=== PATIENT | male | born 1960 | race African-American/Black ===

== ENCOUNTER 2017-06-23 11:22 | Emergency (ER) | payer MEDICARE ==
--- NOTE | 2017-06-23 12:40 | RAD ---
LEFT SHOULDER RADIOGRAPHS THREE VIEWS: O17 PROVIDED CLINICAL HISTORY: Bilateral shoulder pain without injury. FINDINGS: Comparison is made with a study dated 10/18/2015. Postoperative changes of left shoulder arthroplasty are demonstrated, without evidence for hardware complication. The acromioclavicular joint osteoarthrosis is redemonstrated. There is no evidence f or fracture. The glenohumeral relationship appears normal. The visualized left lung field appears clear. IMPRESSION: No evidence for an acute osseous abnormality. POS: OFF
--- NOTE | 2017-06-23 12:43 | RAD ---
RIGHT SHOULDER RADIOGRAPHS THREE VIEWS: O17 PROVIDED CLINICAL HISTORY: Right shoulder pain without injury. FINDINGS: Comparison is made with a study dated 10/18/2015. There is a heterogeneous and mottled appearance to the right humeral head which may reflect changes of prior osteonecrosis. Osteophyte formation arises from the humeral head-neck junction. Subacromi al space appears preserved. The glenohumeral relationship appears normal. The visualized right markos g field appears clear. Mild acromioclavicular joint osteoarthrosis is present. IMPRESSION: No evidence for an acute osseous abnormality. POS: OFF
[2017-06-23] MEDS ORDERED: Dexamethasone 4 mg/ml Vial ONE (13:57)
== END 2017-06-23 14:10 | disposition home or self-care (01) ==
LOC: ERS 11:22
DX: G89.29 Other chronic pain (principal); M25.511 Pain in right shoulder; M25.512 Pain in left shoulder; M19.90 Unspecified osteoarthritis, unspecified site; E78.5 Hyperlipidemia, unspecified; E11.9 Type 2 diabetes mellitus without complications; I10 Essential (primary) hypertension; Z79.01 Long term (current) use of anticoagulants; Z79.899 Other long term (current) drug therapy; Z79.4 Long term (current) use of insulin
CPT/HCPCS: 36416; 96361; 96374; J1100

== ENCOUNTER 2017-11-16 14:00 | Outpatient (CLI) | payer MEDICARE | END 2017-11-16 14:01 | disposition home or self-care (01) | LOC: BICRAD 14:00 | PROVIDERS: ATTEND Internal Medicine Rheumatology | DX: M46.92 Unspecified inflammatory spondylopathy, cervical region (principal); M47.892 Other spondylosis, cervical region; Z98.890 Other specified postprocedural states | CPT/HCPCS: 72052 ==

== ENCOUNTER 2018-02-06 11:33 | Inpatient (IN) | payer MEDICARE ==
[2018-02-06] MEDS ORDERED: Sodium Chloride 0.9% 100 ML ONE (11:39)
[2018-02-06] MEDS ORDERED: cefTRIAXone\\ROCEPHIN 2 GM VIAL ONE (11:39)
[2018-02-06 12:06] LABS: Hemoglobin 9.4 g/dL (14.0-18.0); Mean Corpuscular HGB CONC 31.8 g/dL (32.0-36.0); Mean Corpuscular Hemoglobin 28.2 pg (27.0-31.0); Mean Corpuscular Volume 88.8 fl (80.0-94.0); Mean Platelet Volume 6.5 fL (7.4-10.4); Platelet Count 428 thou/uL (130-400); RBC Distribution Width 18.2 % (11.5-14.5); Red Blood Cell (RBC) Count 3.31 mill/uL (4.70-6.10); White Blood Cell (WBC) Count 19.7 thou/uL (4.8-10.8)
[2018-02-06 12:16] LABS: ALT (SGPT) 13 U/L (8-55); AST (SGOT) 31 U/L (5-34); Albumin 3.3 g/dL (3.5-5.0); Alkaline Phosphatase 75 U/L (40-150); Anion Gap 17 mmol/L (10-20); BUN (Urea Nitrogen) 14 mg/dL (8.4-25.7); Bilirubin, Total 0.5 mg/dL (0.2-1.2); CK (CPK) 198 U/L (30-200); Calc. Creatinine Clearance 0 mL/min (70-130); Calcium 8.5 mg/dL (7.8-10.44); Carbon Dioxide 18 mmol/L (22-29); Chloride 104 mmol/L (98-107); Estimated GFR-MDRD 79; Globulin 3.3 g/dL (2.4-3.5); Glucose 165 mg/dL (70-105); Potassium 3.4 mmol/L (3.5-5.1); Protein, Total 6.6 g/dL (6.0-8.3); Sodium 136 mmol/L (136-145)
[2018-02-06 12:20] LABS: CKMB 0.7 ng/mL (0-6.6); Troponin I Less than 0.010 ng/mL (< 0.028)
[2018-02-06 12:24] LABS: Anisocytosis SLIGHT = 6-15 cells (100X) (0-5/hpf); Band 16 % (5-11); Hypochromia SLIGHT = 6-15 cells (100X) (0-5/hpf); Lymphocytes 2 % (21-51); MDiff Complete? YES; Monocytes 2 % (0-10); Neutrophil 80 % (42-75); PLT Morphology Comment Appears Increased
[2018-02-06 12:38] LABS: Bilirubin Small (Negative); Blood, Urine Moderate (Negative); Clarity TURBID (Clear); Glucose, Urine (Dipstick) Negative (Negative); Leukocyte Moderate (Negative); Nitrite Positive (Negative); Protein, Urine (Dipstick) 100 mg/dL (Neg-Trace); Specific Gravity, Urine 1.019 (1.002-1.036)
[2018-02-06 12:40] LABS: Bacteria/HPF 4+ HPF (None Seen); Squamous Epithelial 0-3 HPF (0-3); WBC/HPF 21-50 HPF (0-3)
[2018-02-06 12:41] LABS: Hyaline Casts/LPF 7-10 HYALINE CAST LPF (0-3 Hyaline); Pathc Cast-AUWi Flag 20.78 (0-2.49)
[2018-02-06] MEDS ORDERED: Ondansetron ODT 4 MG TAB SL PRN (14:19)
[2018-02-06] MEDS ORDERED: Ondansetron HCl/PF 4 MG/2 ML Vial IVP PRN (14:19)
[2018-02-06] MEDS ORDERED: Acetaminophen 325 MG TAB PO PRN (14:19)
[2018-02-06] MEDS ORDERED: Dextrose 5% in Water 1,000 ML IV PRN (14:33)
--- NOTE | 2018-02-06 15:06 | RAD ---
ONE VIEW CHEST: HISTORY: Cough. FINDINGS: AP view chest is obtained on 02/06/18. Comparison is made to previous exam from 04/02/17. AP view chest demonstrates the lungs to be well aerated. No evidence of active intrathoracic disease is seen. No evidence of effusions, pneumonia, or pneumothorax is seen. IMPRESSION: Unremarkable AP view chest. POS: [facility]
[2018-02-06] MEDS: Sodium Chloride 0.9% 1,000 ML IV SCH ×4 (15:29→23:42)
[2018-02-06] MEDS: MEROPENEM 1 GM/50 ML 1 GM in Premix Bag 1 BAG IVPB SCH ×2 (16:10→23:39)
[2018-02-06] MEDS ORDERED: Magnesium Sulfate 4 GM in Sodium Chloride 0.9% 250 ML 250 ML IVPB SCH (16:30)
--- NOTE | 2018-02-06 19:48 | HP ---
DATE OF ADMISSION: 02/06/2018 CHIEF COMPLAINT: Generalized weakness and fall. HISTORY OF PRESENT ILLNESS: The patient is a very pleasant 57-year-old male with a history of hypert ension; history of diabetes, type 2; history of lower extremity DVT; who presents to the hospital wit h a possible fall. The patient stated that for about a week, he has been having some diarrhea and aviles s been feeling very weak. Per ER's documentation, I was notified that the patient fell at home, had some pain and also was found to be hypotensive and at that time EMS was called and EMS brought him to the hospital for further evaluation. The EMS noted that the patient was hypotensive, tachycardic, a nd his temperature was 103.5. The patient states that he has a history of UTIs in the past and has b een complaining of some dysuria on urination. The patient stated that he did have a temperature yest erday; however, no chills; however, has been feeling weak all over. Denies any chest pain, shortness of breath. Did have some nausea, but no vomiting. The patient states that he has been eating and d rinking okay; however, not much today. PAST MEDICAL HISTORY: He has a history of hyperlipidemia, diabetes, history of DVT, dyslipidemia, rh eumatoid arthritis. PAST SURGICAL HISTORY: He has a cholecystectomy, left shoulder surgery, left knee surgery, and cervi diony spine surgery. ALLERGIES: No known drug allergies. MEDICATIONS: The patient does not know his own medications. From the previous list, it appears that he has been on Xarelto and also on sulfasalazine and steroids at 5 mg. The medications are as the f ollowing: Flexeril 10 mg q.12 hours p.r.n., metformin 1000 mg b.i.d., Januvia 100 mg daily, Levemir 15 units at bedtime, Zetia 10 mg at bedtime, Xarelto 20 mg daily, Flomax 0.4 mg daily, prednisone 5 m g daily, enalapril 10 mg daily, sulfasalazine 1000 mg twice a day. SOCIAL HISTORY: He denies any alcohol, drug use or smoking history. He lives with his mother and br other. FAMILY HISTORY: Mother had a history of bypass. Father is , had a history of diabetes and e nd-stage renal disease on dialysis. Power of city planning aide for the patient is his daughter, Evelyn. REVIEW OF SYSTEMS: All negative except for the ones mentioned above in the HPI. PHYSICAL EXAMINATION: VITAL SIGNS: The patient's temperature currently is 97.5, pulse 114, respiratory rate 18, satting 10 0% room air. His blood pressure is 89/57. GENERAL: He is awake, alert, oriented x3, does not appear in distress. HEENT: Normocephalic, atraumatic. Mucous membranes are very significantly dry. CARDIOVASCULAR: S1, S2 present. He does have a mild systolic murmur that is heard on the left upper sternal border and the left lower sternal border. LUNGS: Clear to auscultation, rhonchi or wheezes noted. ABDOMEN: Soft, nontender. Bowel sounds present x2. However, he does have some tenderness on palpat ion around his pelvic area. EXTREMITIES: Pedal pulses present x2. No edema, no redness noted around the joint areas. SKIN: No bruises or cuts noted. LABORATORY DATA: As the following: WBC of 19.7, hemoglobin of 9.4, hematocrit of 29.4, his platelet s are 428. He does not have any bands. Chemistry: Sodium of 136, potassium is 3.4, bicarbonate of 18, BUN of 14, creatinine of 1.15. Sugar is 165. Lactic acid is 2.3. His troponin x1 is negative. Chest x-ray is pending. Urine indicates positive nitrites, moderate leukocyte esterase and elevated wbc's. ASSESSMENT AND PLAN: The patient is a very pleasant 57-year-old male, who comes into the hospital fo fall and was found to have a possible urosepsis. 1. Sepsis. The patient received about 4-5 liters of fluids. He is still hypotensive, may have to s tart the patient on some low dose steroids or Levophed if his map continues to be less than 65, then it would be septic shock. However, the patient is currently just on fluids and maintaining his map o f 65. Since the patient has a history of rheumatoid arthritis, he is immunocompromised, we will star t him on meropenem, I am not sure. I tried to review the culture from the previous urine and there h as been really no culture except for the stool culture, so I will start him on broad spectrum meropen em since the patient appears to be very ill and then maybe we could narrow it out once the patient is more stable. This is to cover ESBL. 2. Leukocytosis, most likely secondary to his underlying urinary tract infection. 3. Urosepsis. We will continue to monitor. Culture is pending. Continue broad spectrum antibiotic s. The patient may require Urology consult. This is the second time that he is having UTIs and he i s septic, last one was last year. The patient is on Flomax. May follow up with Urology as an outpat ient. 4. Lactic acidosis, most likely secondary to his underlying sepsis. 5. Non-anion gap metabolic acidosis. This could just be probably either from his diarrhea that he h as been having. We will also replace the potassium and we will also check magnesium. 6. Deep venous thrombosis prophylaxis. The patient is supposed to be on Xarelto for DVT. We will c onfirm once it is, we will start the patient back on Xarelto.
[2018-02-06] MEDS: Famotidine 20 MG TAB PO SCH (20:09)
[2018-02-06] MEDS: Atorvastatin Calcium 20 MG TAB PO SCH (20:09)
[2018-02-06] MEDS: Insulin Glargine 8 UNITS in Pre-Filled Syringe 1 EACH SC SCH (20:22)
[2018-02-06] MEDS ORDERED: Potassium Chloride 20 MEQ TAB PO SCH (21:00)
--- NOTE | 2018-02-06 22:54 | CON ---
DATE OF CONSULTATION: 02/06/2018 SERVICE: Pulmonary Medicine. REASON FOR CONSULTATION: IMCU patient. HISTORY OF PRESENT ILLNESS: Patient is a 57-year-old -[place] male with past medical history to the significant for chronic systolic heart failure. He was in his usual state of health until about a week prior to presentation. He just felt off and weak. Otherwise, he did not have much in the way of fevers, chills, vomiting, diarrhea, or chest discomfort. He did not note any palpitations. He occasionally felt a little nausea, which came and went. He did not have any hot, red, swollen joints, or rashes. He had urgency , but denied any significant dysuria. In the emergency department, he was given 6 liters of fluid for severe sepsis syndrome. He had marginal blood pressures. EKG was unremarkable and is also given some antibiotics. Since he has been here, he has developed a little bit of cough. He suggests to me that cough was not present prior to being in the emergency department. PAST MEDICAL HISTORY: 1. Type 2, diabetes mellitus. 2. Rheumatoid arthritis. 3. History of DVT. 4. Dyslipidemia. 5. Hypertension. 6. Chronic systolic heart failure. PAST SURGICAL HISTORY: 1. Cholecystectomy. 2. Left shoulder surgery. 3. Left knee surgery. 4. C-spine surgery. ALLERGIES: No known drug allergies. MEDICATIONS: List of his outpatient and inpatient medications were reviewed. No specific updates were made at this time. SOCIAL HISTORY: Negative for current alcohol, tobacco, or illicit drug use. He denies any exposure to chemicals, asbestos, tuberculosis, or dust. FAMILY HISTORY: Noncontributory. REVIEW OF SYSTEMS: General, head, ears, eyes, nose, throat, cardiovascular, respiratory, GI, , musculoskeletal, neurologic, and skin is negative except as mentioned in the HPI. PHYSICAL EXAMINATION: VITAL SIGNS: Afebrile currently. His T-max since presentation was 99.7, pulse 106, blood pressure 81/56, respirations 18, saturation 100% on room air for the time being. HEENT: Normocephalic, atraumatic. Sclerae white, conjunctivae pink. Oral and nasal mucosa is moist without lesions. LUNGS: Decent air entry. Dependent crackles are minimal. They are more pronounced in the right lung. HEART: Normal rate, regular. ABDOMEN: Soft, nontender, nondistended. Bowel sounds are positive. MUSCULOSKELETAL: No cyanosis or clubbing. There is no pitting in the bilateral lower extremities. There is minimal tenting present. GENITOURINARY: Napier catheter in place. NEUROLOGIC: Grossly nonfocal. LABORATORY DATA: WBC 19.7, hemoglobin 9.4, platelets 428,000. Neutrophil count is 80% with 16% bands on top of that. Phosphorus is normal, magnesium 0.9. Lactate is cleared to 1.0, glucose 149. Liver function studies, and basic metabolic profile otherwise essentially unremarkable. Creatinine 1.15. Cardiac enzymes are unremarkable x1. Urinalysis is positive for nitrites, blood , bacteria. Beta-hydroxybutyric acid 0.53. Blood culture x2 and urine culture unremarkable otherwise. IMAGING: Chest x-ray demonstrates no acute cardiopulmonary abnormality. ASSESSMENT: 1. Severe sepsis. 2. Chronic systolic heart failure, status post 6 liters of volume resuscitation. 3. Urinary tract infection. 4. Type 2, diabetes mellitus. 5. History of deep venous thrombosis. DISCUSSION AND PLAN: The patient's maps are okay. He has cleared his lactate. He is mentating just fine and his urine output is excellent. As such, we will continue to monitor. He got 6 liters of fluid. If he develops hypoxic respiratory failure, I prefer to put him on noninvasive ventilation. Once he improves his blood pressure a touch more, we will need to try to get some of this fluid resuscitation back off of him. A dose of Lasix should be considered in the morning if his blood pressures firm up. I agree with empiric antibiotics while we await for the results of some of these cultures that are currently pending. Pulmonary and Critical Care will continue to follow along. If his blood pressures fall off further, he will need a central line to consider initiating pressors. 70 minutes have been devoted to this patient in various activities. I personally reviewed all imaging studies and laboratory data noted within this document. For fifty percent of this time, I was interacting with the patient at the bedside or coordinating care with the care team. For the remainder of the time I was immediately available to the patient in the hospital unit. ERICK
[2018-02-07] MEDS: Sodium Chloride 0.9% 1,000 ML IV SCH ×4 (00:35→20:15)
[2018-02-07 05:49] LABS: #Lymphocytes 1.1 thou/uL (1.20-3.40); #Monocytes 0.7 thou/uL (0.11-0.59); #Neutrophils 15.3 thou/uL (1.40-6.50); %Basophils 0.2 % (0.0-1.0); %Eosinophils 0.2 % (0.0-10.0); %Lymphocytes 6.4 % (21.0-51.0); %Monocytes 4.1 % (0.0-10.0); %Neutrophils 89.1 % (42.0-75.0); Hemoglobin 9.6 g/dL (14.0-18.0); Mean Corpuscular HGB CONC 30.2 g/dL (32.0-36.0); Mean Corpuscular Hemoglobin 27.3 pg (27.0-31.0); Mean Corpuscular Volume 90.5 fl (80.0-94.0); Mean Platelet Volume 6.4 fL (7.4-10.4); Platelet Count 391 thou/uL (130-400); RBC Distribution Width 18.5 % (11.5-14.5); White Blood Cell (WBC) Count 17.2 thou/uL (4.8-10.8)
[2018-02-07 06:01] LABS: Anion Gap 15 mmol/L (10-20); BUN (Urea Nitrogen) 10 mg/dL (8.4-25.7); Calc. Creatinine Clearance 117 mL/min (70-130); Calcium 8.7 mg/dL (7.8-10.44); Carbon Dioxide 17 mmol/L (22-29); Chloride 113 mmol/L (98-107); Estimated GFR-MDRD Greater than 90; Glucose 96 mg/dL (70-105); Magnesium 1.8 mg/dL (1.6-2.6); Potassium 4.6 mmol/L (3.5-5.1); Sodium 140 mmol/L (136-145)
--- NOTE | 2018-02-07 07:58 | PRG ---
DATE OF SERVICE: 02/07/2018 The patient says he feels better today. He is wondering why he has not been allowed to eat. PHYSICAL EXAMINATION: VITAL SIGNS: His temperature is 100.8, pulse 106, respirations of 18, O2 sat 100% on room air, blood pressure 118/55. HEENT: Unremarkable. NECK: No JVD. LUNGS: Clear without wheezing or rhonchi. CARDIAC: S1 and S2 regular. ABDOMEN: Soft, nontender. EXTREMITIES: No clubbing, cyanosis or edema. He has a slight effusion on his left knee. LABORATORY DATA: White blood cell count 17.2, hematocrit 31.7, platelet count 391. Sodium 140, pota ssium 4.6, chloride 113, CO2 17, BUN 10, creatinine 0.7, glucose 96. ASSESSMENT: 1. Presumed urosepsis. 2. Mild left knee effusion. 3. Recurrent urinary tract infections in a relatively young person. 4. Diabetes mellitus. RECOMMENDATIONS: 1. He is doing well on the current antibiotics and fluids. I think that at some point, he needs to have further investigations as to why a young mili is getting UTIs. This may be a prostate issue. 2. Consider orthopedic consultation for the left knee effusion. 3. He is stable to move out to the medical floor.
[2018-02-07] MEDS: Rivaroxaban 10 MG TAB PO SCH (08:30)
[2018-02-07] MEDS: MEROPENEM 1 GM/50 ML 1 GM in Premix Bag 1 BAG IVPB SCH ×3 (08:31→23:48)
[2018-02-07] MEDS: Multivit, Therapeutic 1 TAB PO SCH (08:31)
[2018-02-07] MEDS: Tamsulosin HCl 0.4 MG CAP PO SCH (08:31)
[2018-02-07] MEDS: Famotidine 20 MG TAB PO SCH ×2 (08:31→20:15)
--- NOTE | 2018-02-07 12:05 | PDOC.PN ---
- Subjective Encounter Start Date: 02/07/18 Encounter Start Time: 12:12 Patient seen and examined. Admitted w sepsis with hypotension 2/2 UTI. Cxs grew gram negative rods- sensitivities pending. No complaints today; no acute events overnight. - Objective Vital Signs & Weight: Vital Signs (12 hours) Temp Pulse Resp BP Pulse Ox 02/07/18 11:27 98.6 F 122 H 16 146/80 H 91 L 02/07/18 09:23 98.5 F 74 14 126/79 94 L 02/07/18 07:53 100.8 F H 106 H 18 100 02/07/18 07:27 100.8 F H 106 H 18 118/55 L 100 02/07/18 04:25 98.8 F 96 18 102/58 L 100 Weight Weight 158 lb 11.2 oz I&O: 02/06/18 02/07/18 02/08/18 06:59 06:59 06:59 Intake Total 1947 Output Total 2875 Balance -928 Result Diagrams: 02/07/18 05:16 02/07/18 05:16 Additional Labs: Accuchecks 02/07/18 02/06/18 02/06/18 05:49 20:21 16:26 POC Glucose 101 121 H 149 H Phys Exam - Physical Examination Constitutional: NAD HEENT: moist MMs, sclera anicteric, TM's clear Neck: supple, full ROM Respiratory: no wheezing, no rales, no rhonchi, clear to auscultation bilateral Cardiovascular: RRR, no significant murmur, no rub Gastrointestinal: soft, non-tender, no distention, positive bowel sounds Musculoskeletal: no edema, pulses present Neurological: non-focal, moves all 4 limbs Psychiatric: normal affect, A&O x 3 Skin: no rash, normal turgor Dx/Plan (1) Sepsis with hypotension Code(s): A41.9 - SEPSIS, UNSPECIFIED ORGANISM Status: Acute Comment: Improving. 2/2 UTI. Urine culture grew gram negative rods. Continue meropenem for now. (2) Recurrent UTI (urinary tract infection) Code(s): N39.0 - URINARY TRACT INFECTION, SITE NOT SPECIFIED Status: Acute Comment: Unclear etiology. Will get an US, continue antibiotics and f/u urine culture sensitivities. (3) HLD (hyperlipidemia) Code(s): E78.5 - HYPERLIPIDEMIA, UNSPECIFIED Status: Acute Qualifiers: Hyperlipidemia type: unspecified Qualified Code(s): E78.5 - Hyperlipidemia , unspecified (4) Personal history of DVT (deep vein thrombosis) Code(s): Z86.718 - PERSONAL HISTORY OF OTHER VENOUS THROMBOSIS AND EMBOLISM Status: Chronic Comment: Continue Xarelto. (5) Diabetes mellitus type 2 in nonobese Code(s): E11.9 - TYPE 2 DIABETES MELLITUS WITHOUT COMPLICATIONS Status: Chronic (6) Hypertension Code(s): I10 - ESSENTIAL (PRIMARY) HYPERTENSION Status: Chronic Qualifiers: Hypertension type: essential hypertension Qualified Code(s): I10 - Essential (primary) hypertension (7) Inflammatory arthropathy Code(s): M19.90 - UNSPECIFIED OSTEOARTHRITIS, UNSPECIFIED SITE Status: Chronic - Plan cont current plan of care, continue antibiotics, out of bed/ambulate Retroperitoneal US for recurrent UTI Continue broad spectrum antibiotics. f/u urine culture sensitivities. Review of Systems - Medications/Allergies Allergies/Adverse Reactions: Allergies Allergy/AdvReac Type Severity Reaction Status Date / Time No Known Drug Allergies Allergy Verified 10/18/15 02:31 Medications: Current Medications Acetaminophen (Tylenol Elixir) 650 mg PO Q6H PRN PRN Reason: Fever > 101 or Mild Pain Atorvastatin Calcium (Lipitor) 40 mg PO HS [facility] Last Admin: 02/06/18 20:09 Dose: 40 mg Dextrose/Water (Dextrose 50%) 25 gm SLOW IVP PRN PRN PRN Reason: Hypoglycemia Famotidine (Pepcid) 20 mg PO BID [facility] Last Admin: 02/07/18 08:31 Dose: 20 mg Glucagon (Glucagon) 1 mg IM PRN PRN PRN Reason: Hypoglycemia Meropenem 1 gm/ Device 50 mls @ 100 mls/hr IVPB [id number] [facility] Last Admin: 02/07/18 08:31 Dose: 50 mls Sodium Chloride (Normal Saline 0.9%) 1,000 mls @ 100 mls/hr IV .Q10H [facility] Last Admin: 02/06/18 23:42 Dose: 1,000 mls Dextrose/Water (D5w) 1,000 mls @ 0 mls/hr IV .Q0M PRN; As Directed PRN Reason: Hypoglycemia Insulin Glargine 8 units/ (Miscellaneous Medication) 0.08 mls @ 0 mls/hr SC HS [facility] Last Admin: 02/06/18 20:22 Dose: Not Given Insulin Human Lispro (Humalog) 0 units SC .MILD SLIDING SCALE PRN PRN Reason: Mild Correctional Scale Multivitamins (Theragran) 1 tab PO DAILY [facility] Last Admin: 02/07/18 08:31 Dose: 1 tab Rivaroxaban (Xarelto) 20 mg PO QAM-WM [facility] Last Admin: 02/07/18 08:30 Dose: 20 mg Sodium Chloride (Flush - Normal Saline) 10 ml IVF Q12HR [facility] Last Admin: 02/07/18 08:42 Dose: 10 ml Sodium Chloride (Flush - Normal Saline) 10 ml IVF PRN PRN PRN Reason: Saline Flush Tamsulosin HCl (Flomax) 0.4 mg PO DAILY [facility] Last Admin: 02/07/18 08:31 Dose: 0.4 mg
--- NOTE | 2018-02-07 12:44 | CON ---
DATE OF CONSULTATION: 02/07/2018 CHIEF COMPLAINT: Left shoulder and knee pain. HISTORY OF PRESENT ILLNESS: Mr. nKight is a 57-year-old male, who has recurrent urinary tract infecti ons. He presented with urosepsis. He has improved once starting antibiotics. His hypotension has r esolved. He is now on the regular floor. I was consulted today to evaluate his left knee. He has h ad some swelling of his knee. Upon further discussion, it seems that his knee pain and swelling is c hronic. He had surgery of the left knee several years ago. He has had chronic pain and valgus align ment. He has pain, which comes and goes, but always has some level of discomfort and swelling in thi s knee. He also has severe pain and limitation with his left shoulder. He has had a history of shou lder surgery with Dr. Devine in the past as well. He has rheumatoid arthritis and is on methotrexat e. His knee or shoulder pain are not especially worse after this visit and are not worsening. He fe els that he is improving. PAST MEDICAL HISTORY: Diabetes, rheumatoid arthritis, dyslipidemia, hypertension, chronic systolic h eart failure, history of DVT, history of recurrent urinary tract infections. PAST SURGICAL HISTORY: Cholecystectomy, previous left shoulder partial replacement, previous left kn ee surgery, previous cervical spine surgery. ALLERGIES: No known drug allergies. MEDICATIONS: Please see chart. SOCIAL HISTORY: The patient denies any tobacco, alcohol, or drug use. FAMILY MEDICAL HISTORY: Noncontributory. REVIEW OF SYSTEMS: As per HPI. PHYSICAL EXAMINATION: VITAL SIGNS: Temperature is 98.6, pulse is 122, respiratory rate 16, oxygen saturation 91%, blood pr essure is 146/80. GENERAL: He is alert, sitting upright, ambulatory, in no apparent distress. RESPIRATORY: Breathing comfortably. ABDOMEN: Soft, nontender, nondistended. MUSCULOSKELETAL: The patient's left lower extremity has a small effusion. He has good range of markell on from 5-120 degrees. Valgus alignment. No pain with varus or valgus stress. Left shoulder has we akness and some pain past 90 degrees, but no significant pain with passive motion. IMAGES: X-rays of the knee are currently pending. IMPRESSION: Chronic left knee and left shoulder pain in a patient recently admitted for urosepsis. PLAN: At this point, the patient does not seem to have any worsening of his musculoskeletal symptoms . I think his pain and swelling is likely chronic in nature and does not reflect infection. We will monitor him for now. I did order x-rays of the knee. No need for aspiration or surgical interventi on. If he begins to worsen clinically or develops a significant large effusion or loss of motion, we could consider aspiration.
--- NOTE | 2018-02-07 13:27 | ULT ---
RENAL SONOGRAM: DATE: 02/07/18. HISTORY: Recurrent urinary tract infection, question BPH. COMPARISON: Right upper quadrant ultrasound on 10/23/15. FINDINGS: Again noted at the superior pole right kidney is an anechoic well-circumscribed cystic lesion measuri ng 4.4 cm again demonstrating characteristics most compatible with a simple cyst. The right kidney o therwise has a normal sonographic appearance and there has been no interval development of an additio nal right renal mass, renal calculus, or hydronephrosis. The left kidney demonstrates a normal sonographic appearance without evidence of renal mass, renal ca lculus, or hydronephrosis. The right kidney measures 12.7 cm x 4.6 cm with the left kidney measuring 11 cm x 6.5 cm. The urinary bladder is completely depressed with a Napier catheter in place. IMPRESSION: 1. Right renal cyst. 2. Normal appearance of the left kidney. 3. No evidence of hydronephrosis. POS: [facility]
[2018-02-07] MEDS ORDERED: Sodium Chloride 0.9% 500 ML IVPB SCH (14:15)
--- NOTE | 2018-02-07 14:34 | RAD ---
TWO VIEWS LEFT KNEE: 02/07/2018 HISTORY: Left knee joint effusion. COMPARISON: None available. FINDINGS: There are post surgical changes of the proximal left tibial with two long screws transfixing the tibi al plateaus. No hardware complication is seen. There is tricompartment osteophytosis with narrowing of the medial and lateral joint compartments, as well as the patellofemoral joint. Prominent osteop hytes are seen involving the patellofemoral joint. There is evidence of a small joint effusion. There is a linear increased density structure seen over lying the infrapatellar location, which projects overlying the region of the Hoffa's fat pad, and thi s radiopaque density measures 12 mm x 3 mm. This is not definitely visualized on the frontal project ion; however, a radiopaque foreign body is a possibility. Vascular calcifications are seen posterior to the knee. There is osteopenia. IMPRESSION: 1. Findings suggestive of a radiopaque foreign body overlying the infrapatellar location, which over lies the region of the Hoffa's fat pad. Clinical correlation is recommended. 2. Osteoarthritis and osteopenia. 3. No acute osseous abnormality. 4. Small joint effusion. 5. Post surgical changes, proximal left tibia. POS: [facility]
[2018-02-07] MEDS: Atorvastatin Calcium 20 MG TAB PO SCH (20:15)
[2018-02-07] MEDS: Insulin Glargine 8 UNITS in Pre-Filled Syringe 1 EACH SC SCH (20:21)
[2018-02-07] MEDS: Acetaminophen 325 MG/10.15 ML UDCUP PO PRN (23:48)
[2018-02-08] MEDS: Sodium Chloride 0.9% 1,000 ML IV SCH ×2 (04:30→16:57)
[2018-02-08 04:53] LABS: Anion Gap 14 mmol/L (10-20); BUN (Urea Nitrogen) 6 mg/dL (8.4-25.7); Band 14 % (5-11); Calc. Creatinine Clearance 119 mL/min (70-130); Calcium 8.5 mg/dL (7.8-10.44); Carbon Dioxide 16 mmol/L (22-29); Chloride 110 mmol/L (98-107); Eosinophils 1 % (0-10); Estimated GFR-MDRD Greater than 90; Glucose 157 mg/dL (70-105); Hemoglobin 9.1 g/dL (14.0-18.0); Lymphocytes 11 % (21-51); MDiff Complete? YES; Mean Corpuscular HGB CONC 31.8 g/dL (32.0-36.0); Mean Corpuscular Hemoglobin 28.5 pg (27.0-31.0); Mean Corpuscular Volume 89.8 fL (78.0-98.0); Mean Platelet Volume 6.6 fL (7.4-10.4); Monocytes 1 % (0-10); Neutrophil 73 % (42-75); PLT Morphology Comment Appears Adequate; Platelet Count 372 thou/uL (130-400); Potassium 3.8 mmol/L (3.5-5.1); RBC Distribution Width 18.5 % (11.5-14.5); Red Blood Cell (RBC) Count 3.18 mill/uL (4.70-6.10); Sodium 136 mmol/L (136-145); White Blood Cell (WBC) Count 13.2 thou/uL (4.8-10.8)
[2018-02-08] MEDS: Acetaminophen 325 MG/10.15 ML UDCUP PO PRN (05:41)
[2018-02-08] MEDS: MEROPENEM 1 GM/50 ML 1 GM in Premix Bag 1 BAG IVPB SCH ×2 (08:46→15:31)
[2018-02-08] MEDS: Rivaroxaban 10 MG TAB PO SCH (08:46)
[2018-02-08] MEDS: Cyclobenzaprine 10 MG TAB PO PRN (08:47)
[2018-02-08] MEDS: Multivit, Therapeutic 1 TAB PO SCH (08:47)
[2018-02-08] MEDS: Tamsulosin HCl 0.4 MG CAP PO SCH (08:47)
[2018-02-08] MEDS: Famotidine 20 MG TAB PO SCH ×2 (08:47→20:05)
[2018-02-08] MEDS: traMADol HCl 50 MG TAB PO PRN (08:49)
--- NOTE | 2018-02-08 10:51 | PDOC.PN ---
- Subjective Encounter Start Date: 02/08/18 Encounter Start Time: 10:49 Patient seen and examined. Admitted w sepsis with hypotension 2/2 UTI. He was initially placed in the ICU but improved with therapy and then transfered to a medical floor. Cxs grew gram negative rods- sensitivities pending. Had multiple episode of bloody stools overnight- non bloody. - Objective MAR Reviewed: Yes Vital Signs & Weight: Vital Signs (12 hours) Temp Pulse Resp BP Pulse Ox 02/08/18 07:58 99.9 F H 118 H 20 138/75 94 L 02/08/18 04:52 93 L 02/08/18 04:30 99.1 F 104 H 20 125/70 92 L 02/08/18 01:18 99.5 F 02/07/18 23:48 99.9 F H 107 H 20 139/78 93 L Weight Weight 162 lb 1.6 oz I&O: 02/07/18 02/08/18 02/09/18 06:59 06:59 06:59 Intake Total 1947 5150 Output Total 2875 3850 Balance -928 1300 Result Diagrams: 02/08/18 03:49 02/08/18 03:49 Additional Labs: Accuchecks 02/08/18 02/08/18 02/07/18 05:47 00:57 20:13 POC Glucose 159 H 210 H 238 H 02/07/18 02/07/18 16:25 11:23 POC Glucose 175 H 179 H Phys Exam - Physical Examination Constitutional: NAD HEENT: moist MMs, sclera anicteric Neck: supple, full ROM Respiratory: no wheezing, no rales, no rhonchi, clear to auscultation bilateral Cardiovascular: RRR, no significant murmur, no rub Gastrointestinal: soft, non-tender, no distention, positive bowel sounds Musculoskeletal: no edema, pulses present Neurological: non-focal, moves all 4 limbs Psychiatric: normal affect, A&O x 3 Skin: no rash, normal turgor Dx/Plan (1) Sepsis with hypotension Code(s): A41.9 - SEPSIS, UNSPECIFIED ORGANISM Status: Acute Comment: Improving with treatment. 2/2 UTI. Urine culture grew E Coli. Continue meropenem for now. f/u sensitivities. Blood cultures negative till date. (2) Recurrent UTI (urinary tract infection) Code(s): N39.0 - URINARY TRACT INFECTION, SITE NOT SPECIFIED Status: Acute Comment: 2nd episode of UTI. Renal US w no abnormalities. Continue antibiotics and f/u urine culture sensitivities. (3) Diarrhea Code(s): R19.7 - DIARRHEA, UNSPECIFIED Status: Acute Comment: Had at least 3 episodes overnight. ? C diff as he's on antibiotics. Will check. (4) Personal history of DVT (deep vein thrombosis) Code(s): Z86.718 - PERSONAL HISTORY OF OTHER VENOUS THROMBOSIS AND EMBOLISM Status: Chronic Comment: Continue Xarelto. (5) Diabetes mellitus type 2 in nonobese Code(s): E11.9 - TYPE 2 DIABETES MELLITUS WITHOUT COMPLICATIONS Status: Chronic Comment: Fairly well controlled. (6) Hypertension Code(s): I10 - ESSENTIAL (PRIMARY) HYPERTENSION Status: Chronic Qualifiers: Hypertension type: essential hypertension Qualified Code(s): I10 - Essential (primary) hypertension Comment: Controlled and at goal. (7) Inflammatory arthropathy Code(s): M19.90 - UNSPECIFIED OSTEOARTHRITIS, UNSPECIFIED SITE Status: Chronic (8) HLD (hyperlipidemia) Code(s): E78.5 - HYPERLIPIDEMIA, UNSPECIFIED Status: Acute Qualifiers: Hyperlipidemia type: unspecified Qualified Code(s): E78.5 - Hyperlipidemia , unspecified - Plan cont current plan of care, continue antibiotics, out of bed/ambulate * . Review of Systems - Medications/Allergies Allergies/Adverse Reactions: Allergies Allergy/AdvReac Type Severity Reaction Status Date / Time No Known Drug Allergies Allergy Verified 10/18/15 02:31 Medications: Current Medications Acetaminophen (Tylenol Elixir) 650 mg PO Q6H PRN PRN Reason: Fever > 101 or Mild Pain Last Admin: 02/08/18 05:41 Dose: 650 mg Atorvastatin Calcium (Lipitor) 40 mg PO HS [facility] Last Admin: 02/07/18 20:15 Dose: 40 mg Cyclobenzaprine HCl (Flexeril) 10 mg PO BIDPRN PRN PRN Reason: Muscle Spasm Last Admin: 02/08/18 08:47 Dose: 10 mg Dextrose/Water (Dextrose 50%) 25 gm SLOW IVP PRN PRN PRN Reason: Hypoglycemia Famotidine (Pepcid) 20 mg PO BID [facility] Last Admin: 02/08/18 08:47 Dose: 20 mg Glucagon (Glucagon) 1 mg IM PRN PRN PRN Reason: Hypoglycemia Meropenem 1 gm/ Device 50 mls @ 100 mls/hr IVPB 0800,1600,2359 [facility] Last Admin: 02/08/18 08:46 Dose: 50 mls Sodium Chloride (Normal Saline 0.9%) 1,000 mls @ 100 mls/hr IV .Q10H [facility] Last Admin: 02/08/18 04:30 Dose: 1,000 mls Dextrose/Water (D5w) 1,000 mls @ 0 mls/hr IV .Q0M PRN; As Directed PRN Reason: Hypoglycemia Insulin Glargine 8 units/ (Miscellaneous Medication) 0.08 mls @ 0 mls/hr SC HS [facility] Last Admin: 02/07/18 20:21 Dose: 0.08 mls Insulin Human Lispro (Humalog) 0 units SC .MILD SLIDING SCALE PRN PRN Reason: Mild Correctional Scale Multivitamins (Theragran) 1 tab PO DAILY [facility] Last Admin: 02/08/18 08:47 Dose: 1 tab Rivaroxaban (Xarelto) 20 mg PO QAM-WM [facility] Last Admin: 02/08/18 08:46 Dose: 20 mg Sodium Chloride (Flush - Normal Saline) 10 ml IVF Q12HR [facility] Last Admin: 02/08/18 08:47 Dose: Not Given Sodium Chloride (Flush - Normal Saline) 10 ml IVF PRN PRN PRN Reason: Saline Flush Tamsulosin HCl (Flomax) 0.4 mg PO DAILY [facility] Last Admin: 02/08/18 08:47 Dose: 0.4 mg Tramadol HCl (Ultram) 50 mg PO TIDPRN PRN PRN Reason: Pain Last Admin: 02/08/18 08:49 Dose: 50 mg
[2018-02-08] MEDS: Acetaminophen 650 MG/20.3 ML UDCUP PO PRN (12:52)
[2018-02-08] MEDS: HumaLOG 300 UNITS/3 ML VIAL SC PRN (12:53)
[2018-02-08] MEDS ORDERED: traMADol HCl 50 MG TAB PO PRN (14:22)
--- NOTE | 2018-02-08 14:22 | PDOC.EVN ---
Event Note - Event Note Event Note: Patient developed a high grade fever + tachycardia with reduced oxygen saturations. CXR ordered, blood cultures and vancomycin added to regimen. Will follow results and monitor patient.
--- NOTE | 2018-02-08 14:38 | RAD ---
TWO VIEW CHEST: Comparison: 10-14-15, 02-06-18 History: Sepsis with tachycardia and fever. FINDINGS: Two views of the chest show the cardiomediastinal silhouette which is upper limits in size. There is a hazy opacity along the right heart border which may represent an infiltrate in the right lower lobe . No pleural effusion is seen. The patient is status post left shoulder arthroplasty. Degenerative ch anges are seen in the right shoulder. IMPRESSION: Possible subtle right lower lobe infiltrate. POS: [facility]
[2018-02-08] MEDS: Vancomycin HCl 1.5 GM in Sodium Chloride 0.9% 250 ML 300 ML IVPB SCH (16:47)
[2018-02-08] MEDS: metFORMIN 500 MG TAB PO SCH (16:56)
[2018-02-08] MEDS: Insulin Glargine 8 UNITS in Pre-Filled Syringe 1 EACH SC SCH (20:05)
[2018-02-08] MEDS: Atorvastatin Calcium 20 MG TAB PO SCH (20:05)
[2018-02-09] MEDS: MEROPENEM 1 GM/50 ML 1 GM in Premix Bag 1 BAG IVPB SCH ×3 (00:16→15:57)
[2018-02-09] MEDS: traMADol HCl 50 MG TAB PO PRN (00:25)
[2018-02-09] MEDS: Acetaminophen 650 MG/20.3 ML UDCUP PO PRN ×3 (00:26→11:54)
[2018-02-09] MEDS: Sodium Chloride 0.9% 1,000 ML IV SCH ×2 (02:31→18:04)
[2018-02-09] MEDS: Vancomycin HCl 1.5 GM in Sodium Chloride 0.9% 250 ML 300 ML IVPB SCH ×2 (02:31→16:00)
[2018-02-09 04:10] LABS: Anion Gap 12 mmol/L (10-20); BUN (Urea Nitrogen) 7 mg/dL (8.4-25.7); Calc. Creatinine Clearance 109 mL/min (70-130); Calcium 8.2 mg/dL (7.8-10.44); Carbon Dioxide 19 mmol/L (22-29); Chloride 108 mmol/L (98-107); Estimated GFR-MDRD Greater than 90; Glucose 175 mg/dL (70-105); Potassium 3.2 mmol/L (3.5-5.1); Sodium 136 mmol/L (136-145)
[2018-02-09 04:15] LABS: Band 1 % (5-11); Eosinophils 1 % (0-10); Hemoglobin 7.4 g/dL (14.0-18.0); Lymphocytes 6 % (21-51); MDiff Complete? YES; Mean Corpuscular HGB CONC 32.2 g/dL (32.0-36.0); Mean Corpuscular Hemoglobin 28.3 pg (27.0-31.0); Mean Corpuscular Volume 87.9 fL (78.0-98.0); Mean Platelet Volume 6.6 fL (7.4-10.4); Monocytes 3 % (0-10); Neutrophil 88 % (42-75); Platelet Count 350 thou/uL (130-400); RBC Distribution Width 18.7 % (11.5-14.5); Red Blood Cell (RBC) Count 2.61 mill/uL (4.70-6.10); White Blood Cell (WBC) Count 12.4 thou/uL (4.8-10.8)
[2018-02-09] MEDS: HumaLOG 300 UNITS/3 ML VIAL SC PRN (05:24)
[2018-02-09] MEDS: metFORMIN 500 MG TAB PO SCH (08:07)
[2018-02-09] MEDS: Alogliptin 25 MG TAB PO SCH (08:12)
[2018-02-09] MEDS: Multivit, Therapeutic 1 TAB PO SCH (08:13)
[2018-02-09] MEDS: Famotidine 20 MG TAB PO SCH ×2 (08:13→20:36)
[2018-02-09] MEDS: Rivaroxaban 10 MG TAB PO SCH (08:13)
[2018-02-09] MEDS: Ezetimibe 10 MG TAB PO SCH (08:13)
[2018-02-09] MEDS: Tamsulosin HCl 0.4 MG CAP PO SCH (08:13)
[2018-02-09] MEDS ORDERED: Sodium Chloride 0.9% 1,000 ML IV SCH ×2 (10:23→17:15)
[2018-02-09] MEDS ORDERED: Furosemide 20 MG/2 ML VIAL SLOW IVP SCH (10:45)
[2018-02-09 11:11] LABS: CO2 Tension 24.5 mmHg (35.0-45.0); pH, Arterial 7.52 (7.35-7.45)
[2018-02-09 11:12] LABS: Actual Bicarbonate (HCO3a) 19.5 mEq/L (22-28); Base Excess (BEa) -2.3 mEq/L (-2.0 to +3.0); O2 Tension (PaO2) 65.3 mmHg (80.0-100.0)
[2018-02-09 11:13] LABS: Calcium, Ionized 1.1 mmol/L (1.12-1.30); Puncture Site RRA
[2018-02-09] MEDS ORDERED: Furosemide 40 MG/4 ML VIAL ONE (11:52)
[2018-02-09] MEDS ORDERED: Acetaminophen 1,000 MG in Premix Bag 1 BAG IVPB PRN (12:49)
[2018-02-09] MEDS ORDERED: Potassium Chloride 20 MEQ TAB PO SCH (13:00)
--- NOTE | 2018-02-09 13:08 | PRG ---
DATE OF SERVICE: 02/09/2018 Forty-five minutes critical care time. This patient was sent back to the [facility] because his sepsis score was high. He had a fever today up to 103. He has been tachycardic with a fever. He has also been somewhat tachypneic. PHYSICAL EXAMINATION: VITAL SIGNS: His blood pressure is 131/76. GENERAL: He does not appear to be any overt distress to me. HEENT: Unremarkable. NECK: No adenopathy or JVD. LUNGS: Fairly clear. CARDIOVASCULAR: S1, S2 tachycardic. ABDOMEN: Soft, nontender. EXTREMITIES: No edema. : He has clear urine in his Napier. LABORATORY: White blood cell count is 12.4, hematocrit 23, platelet count 350, pH 7.52, pCO2 24, pO2 of 65 on 3 liters. Sodium 136, potassium 3.2, chloride 108, CO2 19, BUN 7, creatinine 0.7, glucose 175. ASSESSMENT: This is a 57-year-old male with urosepsis, which is growing out Escherichia coli resista nt to numerous antibiotics, but is sensitive to the meropenem that he is on. He also has a left knee effusion which was characterized as benign by the Orthopedic Service. He is currently experiencing to tachypnea and tachycardia due to his underlying fever and has been mo shankar to the Intermediate Care Unit for closer care. PLAN: 1. The patient needs a Urology consultation. Ultrasound obtained earlier in the hospitalization did not show any evidence of stones, but the patient may need closer look with a CT of the abdomen with contrast. 2. The patient needs to have his potassium replaced if that has not been done. He received a dose o f Lasix earlier today and his potassium is likely even lower now. 3. Continue the meropenem and vancomycin as you are doing.
--- NOTE | 2018-02-09 13:43 | CON ---
DATE OF PROCEDURE: 02/09/2018 HISTORY OF PRESENT ILLNESS: This is a 57-year-old male I am seeing today 02/09/2018 because of a febrile urinary tract infection. He was admitted on the . He is in the [facility] in room B1. Reviewing his most recent hospitalization, he has 2 different E. coli species gr owing in his urine, one is 25-50,000 colony forming units. The other is 10-25,000, the first has res istance to ampicillin and intermediate resistance to Augmentin, cefoxitin and Bactrim. The second on e has the same antibiotic resistance and in addition to that is resistant to quinolones. He is curre ntly on meropenem and I think that was started when he was admitted, started on the . He had van comycin ordered in addition to it last night. His urinalysis when he came in showed 11-20 red cells, 21-50 white cells, and 4+ bacteria. His creatinine on admission was 1.15. Liver function was matt l. His white count on admission was 19.7 and it has been coming down. Today it was 12.4. He was sl ightly anemic when he came in at 11.1. His hemoglobin is now 7.4, platelet count has been normal. Ava anderson did have an ultrasound of his kidneys done when he came in and that showed no evidence of stones or hydronephrosis. He has got a small right renal cystic lesion and he has had that compared with anot her ultrasound from last fall. He had apparently a similar admission last fall which also showed an abnormal urine, but his blood and urine cultures did not grow anything, but he certainly appeared on urinalysis to have a urinary tract infection and responded to antibiotics as such, and it is possible that maybe he received some IV antibiotics in the ER during that visit prior to getting the urine cu lture sent off. He has not had any CAT scans of his abdomen or pelvis on review of his recent admiss ions here. He, for some reason, is not very communicative. I do not know if this is something new. The nurse that is with him says he has not really been answered questions or talking much, but she c an get him to answer some questions. He does have a fever currently going on and has been recultured . So I am getting his history basically from his chart. PAST MEDICAL HISTORY: He medical history includes diabetes, rheumatoid arthritis, hyperlipidemia, hy pertension. He has a history of heart failure. He has a history of DVT. PAST SURGICAL HISTORY: Cholecystectomy, C-spine, left knee and I think the last surgery was a repla cement. ALLERGIES: None. MEDICATIONS: He appears to be taking Flomax as an outpatient, or at least was discharged on Flomax. PHYSICAL EXAMINATION: ABDOMEN: He does not have flank tenderness and answers no when asked if his abdomen hurts, his bladd er does not seem to be distended. GENITOURINARY: His penis was not circumcised and he did have a paraphimosis, but this was reduced. His catheter is draining a clear urine. He was given some Lasix today and he has had a very good diu resis since then. There is nothing to suggest a periurethral abscess. There is nothing to suggest a "scrotal abscess or testicular abscess or epididymitis. The testicles are both descended without ma ss or tenderness. RECTAL: Rectal exam showed normal rectal tone. He has got a mildly enlarged prostate. It is tender , but there is no fluctuance and nothing to suggest a prostatic abscess. IMPRESSION AND PLAN: Febrile urinary tract infection. He has been recultured. He is on meropenem, which should cover this, but yet he still had another fever. I think he has had a chest x-ray and re culture, so we will see if that was shown any more. He had vancomycin added last night. I would rec ommend we go ahead and get a noncontrast CAT scan to look at his urinary tract, may need to look to m eliz sure there is no sign of stone or obstruction or anything obvious with the kidney in terms of an abscess or perinephric collection. I will order that to be done and will follow along with you.
--- NOTE | 2018-02-09 13:59 | PDOC.PN ---
- Subjective Encounter Start Date: 02/09/18 Encounter Start Time: 13:57 Subjective: called by nursing early am for fever,tachycardia,hypoxia & tachypnea -: Pt seen & examined.not able to provide much info -: c/o left shoulder pain.shallow breathing noticed.high fever - Objective MAR Reviewed: Yes Vital Signs & Weight: Vital Signs (12 hours) Temp Pulse Resp BP BP BP Pulse Ox 02/09/18 11:30 103 F H 134 H 32 H 131/60 96 02/09/18 10:22 144 H 48 H 167/79 H 100 02/09/18 10:08 100 02/09/18 10:06 101.2 F H 144 H 48 H 124/78 83 L 02/09/18 08:13 97/62 02/09/18 08:00 98.1 F 123 H 14 90 L 02/09/18 07:58 98.1 F 123 H 14 97/56 L 90 L 02/09/18 05:00 100.1 F H 113 H 18 107/72 97 Weight Weight 167 lb I&O: 02/08/18 02/09/18 02/10/18 06:59 06:59 06:59 Intake Total 5150 3950 Output Total 3850 1300 Balance 1300 2650 Result Diagrams: 02/09/18 03:30 02/09/18 03:30 Additional Labs: Accuchecks 02/09/18 02/09/18 02/08/18 12:09 05:24 20:10 POC Glucose 155 H 157 H 158 H 02/08/18 16:46 POC Glucose 108 Microbiology 02/08/18 09:01 Stool C. difficile [facility] Antigen & Toxins - Final 02/06/18 12:21 Urine dobbins catheter Urine Culture - Final Escherichia coli#2 Escherichia coli 02/08/18 14:40 Venous blood - Right Hand Blood Culture - Preliminary Specimen has been received and culture in progress. No Growth to date. 02/08/18 13:24 Venous blood - Right Hand Blood Culture - Preliminary Specimen has been received and culture in progress. No Growth to date. 02/06/18 12:21 Urine dobbins catheter Urine Culture - Preliminary Escherichia coli#2 Escherichia coli 02/06/18 11:50 Venous blood - Right Arm Blood Culture - Preliminary NO GROWTH AT 48 HOURS 02/06/18 11:50 Venous blood - Left Hand Blood Culture - Preliminary NO GROWTH AT 48 HOURS Laboratory Tests 02/06/18 02/06/18 02/06/18 11:51 11:51 11:51 Hgb 9.4 L Lactic Acid 2.3 H Magnesium Troponin I Less than 0.010 02/06/18 02/06/18 02/07/18 11:51 15:22 05:16 Hgb Lactic Acid 1.0 Magnesium 0.9 L* 1.8 Troponin I 02/07/18 02/08/18 02/09/18 05:16 03:49 03:30 Hgb 9.6 L 9.1 L 7.4 L Lactic Acid Magnesium Troponin I labs reviewed Phys Exam - Physical Examination uncomfortable.moinimally conversant.shallow breaths HEENT: PERRLA, moist MMs, sclera anicteric, oral pharynx no lesions Neck: no nodes, no JVD, supple, full ROM Respiratory: no wheezing bibasilar crackles Cardiovascular: RRR, no significant murmur, no rub Gastrointestinal: soft, non-tender, no distention, positive bowel sounds Musculoskeletal: pulses present, edema present (b/l LE +1) Neurological: non-focal, normal sensation, moves all 4 limbs Psychiatric: normal affect, A&O x 3 Skin: no rash Dx/Plan (1) Septic shock Code(s): A41.9 - SEPSIS, UNSPECIFIED ORGANISM; R65.21 - SEVERE SEPSIS WITH SEPTIC SHOCK Status: Acute (2) Acute respiratory failure with hypoxemia Code(s): J96.01 - ACUTE RESPIRATORY FAILURE WITH HYPOXIA Status: Acute Comment: Likley Fluid overload with PNA (3) Sepsis Code(s): A41.9 - SEPSIS, UNSPECIFIED ORGANISM Status: Acute (4) PNA (pneumonia) Code(s): J18.9 - PNEUMONIA, UNSPECIFIED ORGANISM Status: Acute (5) Recurrent UTI (urinary tract infection) Code(s): N39.0 - URINARY TRACT INFECTION, SITE NOT SPECIFIED Status: Acute Comment: 2nd episode of UTI. Renal US w no abnormalities. Continue antibiotics and f/u urine culture sensitivities. (6) HLD (hyperlipidemia) Code(s): E78.5 - HYPERLIPIDEMIA, UNSPECIFIED Status: Chronic Qualifiers: Hyperlipidemia type: unspecified Qualified Code(s): E78.5 - Hyperlipidemia , unspecified (7) Personal history of DVT (deep vein thrombosis) Code(s): Z86.718 - PERSONAL HISTORY OF OTHER VENOUS THROMBOSIS AND EMBOLISM Status: Chronic Comment: Continue Xarelto. (8) Cervical myelopathy Code(s): G95.9 - DISEASE OF SPINAL CORD, UNSPECIFIED Status: Chronic (9) Diabetes mellitus type 2 in nonobese Code(s): E11.9 - TYPE 2 DIABETES MELLITUS WITHOUT COMPLICATIONS Status: Chronic Comment: Fairly well controlled. 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 * daily am. * H/H drop today and pt is on Xarelto. will check Occult blood in stools. * monitor BP w lasix * replace and recheck Poatssium . * check Mag. * ISS and accuchecks. * Stop metformin due to metab acidosis. Review of Systems - Review of Systems Constitutional: weakness, malaise Respiratory: Shortness of Breath Other: limited ROS due to acute SOB - Medications/Allergies Allergies/Adverse Reactions: Allergies Allergy/AdvReac Type Severity Reaction Status Date / Time No Known Drug Allergies Allergy Verified 10/18/15 02:31 Medications: Current Medications Acetaminophen (Tylenol Elixir) 650 mg PO Q6H PRN PRN Reason: Fever > 101 or Mild Pain Last Admin: 02/09/18 11:54 Dose: 650 mg Alogliptin Benzoate (Alogliptin) 25 mg PO DAILY [facility] Last Admin: 02/09/18 08:12 Dose: 25 mg Atorvastatin Calcium (Lipitor) 40 mg PO HS [facility] Last Admin: 02/08/18 20:05 Dose: 40 mg Cyclobenzaprine HCl (Flexeril) 10 mg PO BIDPRN PRN PRN Reason: Muscle Spasm Last Admin: 02/08/18 08:47 Dose: 10 mg Dextrose/Water (Dextrose 50%) 25 gm SLOW IVP PRN PRN PRN Reason: Hypoglycemia Ezetimibe (Zetia) 10 mg PO DAILY [facility] Last Admin: 02/09/18 08:13 Dose: 10 mg Enalapril Maleate (Vasotec) 2.5 mg PO DAILY [facility] Last Admin: 02/09/18 08:13 Dose: Not Given Famotidine (Pepcid) 20 mg PO BID [facility] Last Admin: 02/09/18 08:13 Dose: 20 mg Glucagon (Glucagon) 1 mg IM PRN PRN PRN Reason: Hypoglycemia Meropenem 1 gm/ Device 50 mls @ 100 mls/hr IVPB 0800,1600,2359 [facility] Last Admin: 02/09/18 08:04 Dose: 50 mls Dextrose/Water (D5w) 1,000 mls @ 0 mls/hr IV .Q0M PRN; As Directed PRN Reason: Hypoglycemia Insulin Glargine 8 units/ (Miscellaneous Medication) 0.08 mls @ 0 mls/hr SC HS [facility] Last Admin: 02/08/18 20:05 Dose: 0.08 mls Vancomycin HCl 1.5 gm/ Sodium (Chloride) 300 mls @ 200 mls/hr IVPB 0300,1500 [facility] Last Admin: 02/09/18 02:31 Dose: 300 mls Acetaminophen 1,000 mg/ Device 100 mls @ 400 mls/hr IVPB Q6H PRN PRN Reason: Fever/Mild Pain Stop: 02/10/18 12:50 Insulin Human Lispro (Humalog) 0 units SC .MILD SLIDING SCALE PRN PRN Reason: Mild Correctional Scale Last Admin: 02/09/18 05:24 Dose: 2 unit Miscellaneous Medication (Pharmacy To Dose) 0 each IVPB ASDIR [facility] Multivitamins (Theragran) 1 tab PO DAILY [facility] Last Admin: 02/09/18 08:13 Dose: 1 tab Potassium Chloride (K-Dur) 40 meq PO ONE [facility] Stop: 02/09/18 14:00 Rivaroxaban (Xarelto) 20 mg PO QAM-WM [facility] Last Admin: 02/09/18 08:13 Dose: 20 mg Sodium Chloride (Flush - Normal Saline) 10 ml IVF Q12HR [facility] Last Admin: 02/09/18 08:15 Dose: Not Given Sodium Chloride (Flush - Normal Saline) 10 ml IVF PRN PRN PRN Reason: Saline Flush Tamsulosin HCl (Flomax) 0.4 mg PO DAILY [facility] Last Admin: 02/09/18 08:13 Dose: 0.4 mg Tramadol HCl (Ultram) 50 mg PO TIDPRN PRN PRN Reason: Pain Last Admin: 02/09/18 00:25 Dose: 50 mg
--- NOTE | 2018-02-09 15:13 | CT ---
NONCONTRAST CT ABDOMEN AND PELVIS: DATE: 02/09/18. HISTORY: Febrile urinary tract infection. Sepsis. COMPARISON: CT thorax on 10/18/[address] abdomen and pelvis on 12/02/06. FINDINGS: There are small bilateral pleural effusions with associated atelectasis at the left lung base. A gre ater degree of parenchymal changes are seen at the right lung base which could be related to atelecta sis as well, but associated infectious process related to pneumonia or possibly aspiration pneumoniti s is also a possibility. There is a hypodense superior pole right renal lesion noted on prior CT thorax and unchanged in size from that exam and most likely related to a renal cyst measuring 4.1 cm. This does demonstrate fluid attenuation on this nonenhanced CT scan exam. There is an exophytic lesion within the medial aspect mid portion left kidney. There is artifact ext ending through this region due to spray artifact from overlying monitor leads limiting adequate evalu ation of this cystic lesion. This could potentially represent a hyperdense cystic renal lesion. Th is was not imaged on the CT thorax on prior exam. There was a much smaller low-density lesion seen i n this region on prior CT exam in 2006. This could potentially represent enlargement of the renal cy st. No renal or ureteral calculi are seen bilaterally. The urinary bladder is completely decompressed wi th Napier catheter in place. The rollins of the urinary bladder appear thickened, which is probably rel ated to incomplete distention. There is minimal nonspecific caliectasis on the right. Post cholecystectomy changes are noted. Vascular calcifications are present in the abdominal aorta. The heart is mildly enlarged. Nonspecific fluid-filled small bowel is present. No bowel wall thickening is present. Multilevel degenerative changes are seen in the spine. There is severe right and moderate to severe left hip osteoarthritis with joint space narrowing and prominent subchondral cystic changes. IMPRESSION: 1. Small bilateral pleural effusions with associated atelectasis. However, there is greater patchy parenchymal changes at the right lung base which is probably related to asymmetric volume loss on the right compared to the left, but developing pneumonia or aspiration pneumonitis is a possibility. 2. Superior pole right renal cyst with difficult to characterize cystic lesion in the mid portion le ft kidney related to spray artifact. 3. No renal or ureteral calculi are seen, and there is no hydronephrosis. There is minimal nonspeci fic caliectasis on the right. 4. Urinary bladder is completely decompressed with Napier catheter in place. While the rollins of the urinary bladder appear thickened, this is probably due to the incomplete distention. 5. Mild cardiomegaly. 6. Severe bilateral hip osteoarthritis. 7. Mild diffuse subcutaneous edema greater involving the pelvis. POS: [facility]
[2018-02-09 15:16] LABS: Vancomycin, Trough 14.9 ug/mL
[2018-02-09] MEDS ORDERED: Sodium Chloride 0.9% 500 ML IVPB SCH (15:30)
[2018-02-09] MEDS ORDERED: Ibuprofen 800 MG TAB PO SCH (15:30)
[2018-02-09] MEDS ORDERED: Lidocaine 1% (PF) 30 ML VIAL ONE (16:21)
[2018-02-09] MEDS ORDERED: Cosyntropin 250 MCG VIAL SLOW IVP SCH (17:30)
[2018-02-09 17:36] LABS: BF Color Yellow; Body Fluid Source SYNOVIAL FLUID; Clarity Cloudy/Turbid (Clear); RBC Background Count 0.007; RBC Count-Automated 41000 /cumm; Tube # EDTA; WBC/NonHematic-Auto 29000 /cumm
[2018-02-09 18:08] LABS: BF Segmented Neutrophils 77 %; Cell Count Non Hematic 10 %; Lymphocytes 13 %
[2018-02-09] MEDS: Norepinephrine 8 MG/0.9% NS 250 ML IVPB SCH (18:43)
[2018-02-09] MEDS: Atorvastatin Calcium 20 MG TAB PO SCH (20:36)
[2018-02-09] MEDS: Insulin Glargine 8 UNITS in Pre-Filled Syringe 1 EACH SC SCH (20:37)
[2018-02-09] MEDS ORDERED: Dexamethasone 4 mg/ml Vial SLOW IVP SCH (21:00)
[2018-02-10] MEDS: Hydrocortisone Sod Succ/PF 100 mg/2 ml Vial IVP SCH ×4 (00:07→17:32)
[2018-02-10] MEDS: MEROPENEM 1 GM/50 ML 1 GM in Premix Bag 1 BAG IVPB SCH ×3 (00:07→17:32)
[2018-02-10] MEDS: Norepinephrine 8 MG/0.9% NS 250 ML IVPB SCH ×2 (01:00→09:39)
--- NOTE | 2018-02-10 02:38 | CON ---
DATE OF CONSULTATION: 02/09/2018 REASON FOR CONSULTATION: Fever. HISTORY OF PRESENT ILLNESS: A 57-year-old known to us from previous consultation in 2015. The first time I saw him was in 09/2015 and presented with a history of type 2 diabetes, hypertension, C-spine problems with fusion and decompression in 2006 with residual weakness in extremities. He also had instrumentation of left knee, partial shoulder replacement of left side and on 10/14/2017, he developed worsening C-spine pain associated with neutrophilia. MRI did not show any evidence of inflammatory changes in the C-spine and duplex ultrasound of the lower extremities demonstrated deep vein thrombosis. On 10/18, he developed hypoxemia, O2 sats in the 88%, tachypnea and cough and congestion. CT of chest showed an area of attenuation posterior to the supraglottic region. The chest x-ray showed enlarged cardiac silhouette and patchy parenchymal opacities in lower lung zones probably secondary to subsegmental atelectases. All the cultures remain negative. The patient had a spinal tap, which did in the CSF did not show any evidence of meningeal infection. Subsequently, Dr. Becerril has spoken with Dr. Barney and apparently patient had been diagnosed with rheumatoid arthritis in the past. He had been placed on corticosteroids and had a prompt improvement in symptoms. Dr. Tena at that time evaluated the patient and felt that it was related to rheumatoid arthritis. He was given corticosteroids with improvement. ENT evaluated the changes in the CT of the neck and then feel that any abnormalities were seen. In October after being transferred to rehabilitation, he was transferred back to the hospital because of tachycardia and dyspnea. In 04/03/2017, patient was admitted again with sepsis. All cultures were negative and despite of this finding, he was still discharged with a presumptive diagnosis of urinary tract infection. At this time, he presents with weakness, diarrhea, episode of fall, and hypotension, being brought by EMS with tachycardia, hypotension, and fever of 103.5. Currently, he is awake. He has difficulty in answering questions. He knows his name, could not tell me the date, he knew he was in the hospital, some headaches, no visual symptoms, sore throat, odynophagia, dysphagia, no dyspnea, no cough, no chest pain, no abdominal pain, range of motion limitation in left shoulder and left knee. PAST MEDICAL HISTORY: Type 2 diabetes, deep vein thrombosis on chronic blood thinners, pulmonary embolism, rheumatoid arthritis, recurrent episodes of inflammatory syndrome with negative cultures, which once responded to corticosteroid administration. The patient had negative ARTURO screen, rheumatoid factor was borderline elevated. Complements were normal at that time. HIV and hepatitis serology nonreactive. PAST SURGICAL HISTORY: Includes cholecystectomy, left shoulder partial replacement, left knee arthroscopy, C-spine fusion for management of spinal stenosis with residual quadriparesis. ALLERGIES: None. CURRENT MEDICATIONS: Tylenol, acetaminophen, alogliptin, Lipitor, Flexeril, Vasotec, Zetia, Pepcid, glucagon, ibuprofen, meropenem, rivaroxaban, IV fluids, tamsulosin, tramadol, vancomycin. SOCIAL HISTORY: Lives at home in [place] with relatives, never smoker. FAMILY HISTORY: Coronary artery disease, diabetes, renal disease. PHYSICAL EXAMINATION: VITAL SIGNS: T-max 103 and now 105, respirations 38, pulse 141, blood pressure 105/52. SKIN: No areas of skin breakdown. Peripheral IV access. Napier catheter in place with positive balance for the past 2 days. Urine output from 4140-0317. The patient is quadriparetic. He is able to move his eyes. Eye movements are conjugate. No lymphadenopathy. HEENT: Pupils are equal and reactive. Conjunctivae normal. He has artificial dentures in upper and lower maxilla. Oral cavity is somewhat dry. NECK: Appears stiff. LUNGS: With symmetric air entry with no obvious crackles or wheezing. HEART: S1, S2, regular rate without murmurs. ABDOMEN: Soft, not distended. No ascites. No bladder distention. EXTREMITIES: There is evidence of fluid in the left knee. The patient has quadriparesis, 1+ edema in lower extremities. Pulses are 1+ in dorsalis pedis. Plantar responses are indifferent right and left side. NEUROLOGIC: He is awake, is oriented to time, self and place, but not tell me the date. Difficulty in recalling things, but he could tell me who takes care of him at home and where he lives. LABORATORY DATA: White cell count 19,000 down to 12.4, hemoglobin 7.4, platelets 350, 80% neutrophils. A pH of 7.5, pCO2 of 24, pO2 of 65. Chemistry with potassium of 3.4, creatinine 1.15. Transaminases normal, CK 198, albumin 3.3. Urinalysis with 21-50 wbc's. Microbiology thus far have urine culture with E. coli, two different strains, 25-50 CFUs per mL one and [id number] CFUs per mL the other. Clostridium difficile antigen and toxin negative. IMAGING STUDIES: We have an abdomen and pelvis CT, small bilateral pleural effusions with atelectases, somewhat greater patchy parenchymal changes right lung base and some renal cysts, no calculi seen, incompletely decompressed urinary bladder, cardiomegaly, severe bilateral hip osteoarthritis, subcutaneous edema in the pelvis. There was a chest x-ray with a subtle right lower lobe infiltrate. ASSESSMENT: Recurring episodes of febrile illnesses with negative cultures in the past which failed to respond to antimicrobial therapy and resolved with corticosteroids. This was felt to be related to an autoimmune syndrome in the past, although serologies were not positive except for borderline rheumatoid factor. The patient did have a history of rheumatoid arthritis diagnosed by penciller in the past, still on treatment for it. He also has a history of C-spine complications, which left him quadriparetic from C-spine stenosis, has had quite a few MRIs of the area and did not show any inflammatory changes. Now, he presents with normal urinalysis, febrile syndrome which does not seem to respond to antimicrobial similar to what he had presented in the past. We will resume his higher dose of steroids. We will submit Cortrosyn stimulation test. Follow up blood cultures. May need a CT of chest. Pulmonary embolism would be another concern, but he seems to have been taking Xarelto correctly. MTDD
[2018-02-10] MEDS: Vancomycin HCl 1.5 GM in Sodium Chloride 0.9% 250 ML 300 ML IVPB SCH ×2 (03:45→15:42)
[2018-02-10 04:29] LABS: Hemoglobin 8.5 g/dL (14.0-18.0); Mean Corpuscular Hemoglobin 27.6 pg (27.0-31.0); Mean Corpuscular Volume 89.3 fL (78.0-98.0); Mean Platelet Volume 7.6 fL (7.4-10.4); Platelet Count 307 thou/uL (130-400); Red Blood Cell (RBC) Count 3.08 mill/uL (4.70-6.10); White Blood Cell (WBC) Count 31.3 thou/uL (4.8-10.8)
[2018-02-10 04:48] LABS: Troponin I 0.019 ng/mL (< 0.028)
[2018-02-10 04:50] LABS: Anion Gap 18 mmol/L (10-20); BUN (Urea Nitrogen) 18 mg/dL (8.4-25.7); Calc. Creatinine Clearance 72 mL/min (70-130); Calcium 8.3 mg/dL (7.8-10.44); Carbon Dioxide 15 mmol/L (22-29); Chloride 108 mmol/L (98-107); Estimated GFR-MDRD 74; Glucose 158 mg/dL (70-105); Potassium 3.9 mmol/L (3.5-5.1); Sodium 137 mmol/L (136-145)
[2018-02-10 05:43] LABS: Band 25 % (5-11); Lymphocytes 2 % (21-51); MDiff Complete? YES; Monocytes 2 % (0-10); Neutrophil 71 % (42-75)
[2018-02-10] MEDS: Sodium Chloride 0.9% 1,000 ML IV SCH ×2 (06:09→09:26)
[2018-02-10] MEDS ORDERED: Sodium Chloride 0.9% 500 ML IV SCH (06:30)
--- NOTE | 2018-02-10 07:01 | PRG ---
DATE OF SERVICE: 02/10/2018 A 35 minutes critical care time. SUBJECTIVE: Mr. Knight had a rough night during the first half. He required Levophed. OBJECTIVE: VITAL SIGNS: He initially had a fever of 105. At that time, he was transferred over, but he is sinc e defervesced and is now about 96.9, his pulse is 92, blood pressure 122/76, O2 sat 100% on no oxygen . He is currently on Levophed at 15 mcg per minute, but that is rapidly being weaned. A 24-hour int eliz 418, output 165+. NEUROLOGIC: He is awake and alert. He states that he was having severe left knee pain yesterday and that has improved since the arthrocentesis by Orthopedics. HEENT: Pupils react. Sclerae anicteric. Oropharynx clear. NECK: Without adenopathy or JVD. LUNGS: Clear without wheezing or rhonchi. CARDIAC: S1, S2, slightly tachycardic without murmur. ABDOMEN: Soft, nontender. No hepatosplenomegaly. EXTREMITIES: No clubbing, cyanosis, or edema. LABORATORY DATA: White blood cell count 31.3, hemoglobin 8.5, hematocrit 27.5, platelet count 307. Sodium 137, potassium 3.9, chloride 108, CO2 15, BUN 18, creatinine 1.2, glucose 158, his synovial fl uid demonstrated a white blood cell count 29,000, red blood cell count 41,000 with 77% neutrophils. ASSESSMENT: Septic shock - had urinary tract infection at the time of admission, also developed a le ft knee effusion which has a multitude of white blood cells. Apparently, Dr. Nickerson thinks autoimmune syndrome is also in the differential, although fever of 105 from that would be very odd unless we ar e talking about something like adult Still's disease. It is also noted that he did not have an appro priate response to ACTH yesterday, although his cortisol level was not depressed. RECOMMENDATIONS: 1. I would recommend continuing the IV antibiotics. Continue the steroids. 2. Check ARTURO and rheumatoid factor if they have not already been done. 3. Wean Levophed as tolerated. 4. Continue IV fluids. 5. Continue hydrocortisone and stress doses. 6. Leave in ICU for at least 24 hours.
[2018-02-10] MEDS: Rivaroxaban 10 MG TAB PO SCH (09:37)
[2018-02-10] MEDS: Alogliptin 25 MG TAB PO SCH (09:37)
[2018-02-10] MEDS: Famotidine 20 MG TAB PO SCH ×2 (09:38→20:58)
[2018-02-10] MEDS: Tamsulosin HCl 0.4 MG CAP PO SCH (09:38)
[2018-02-10] MEDS: Multivit, Therapeutic 1 TAB PO SCH (09:38)
[2018-02-10] MEDS: Ezetimibe 10 MG TAB PO SCH (09:38)
[2018-02-10] MEDS: HumaLOG 300 UNITS/3 ML VIAL SC PRN ×3 (11:33→20:59)
--- NOTE | 2018-02-10 13:45 | PDOC.PN ---
- Subjective Encounter Start Date: 02/10/18 Encounter Start Time: 13:43 Subjective: feels much better. awake,alert X3 today.denies any SOB/CP/AP/N/V/D -: no more fever/chills. - Objective MAR Reviewed: Yes Vital Signs & Weight: Vital Signs (12 hours) Temp BP Pulse Ox 02/10/18 09:38 97/62 02/10/18 08:00 97.4 F L 02/10/18 07:04 100 02/10/18 04:00 97.3 F L Weight Admit Weight 173 lb 1.006 oz Weight 181 lb 7.047 oz Most Recent Monitor Data Heart Rate from ECG 101 NIBP 111/77 NIBP BP-Mean 88 Respiration from ECG 28 SpO2 100 I&O: 02/09/18 02/10/18 02/11/18 06:59 06:59 06:59 Intake Total 3950 4018 240 Output Total 1300 165 200 Balance 2650 3853 40 Result Diagrams: 02/10/18 03:40 02/10/18 03:40 Additional Labs: Accuchecks 02/10/18 02/10/18 02/09/18 07:33 00:17 20:37 POC Glucose 182 H 139 H 112 H 02/09/18 02/09/18 18:55 16:34 POC Glucose 106 109 Microbiology 02/08/18 09:01 Stool C. difficile GDH Antigen & Toxins - Final 02/06/18 12:21 Urine dobbins catheter Urine Culture - Final Escherichia coli#2 Escherichia coli 02/09/18 16:25 Knee aspirate - Left Leg Body Fluid Culture - Preliminary 02/08/18 14:40 Venous blood - Right Hand Blood Culture - Preliminary Specimen has been received and culture in progress. No Growth to date. 02/08/18 13:24 Venous blood - Right Hand Blood Culture - Preliminary Specimen has been received and culture in progress. No Growth to date. 02/06/18 11:50 Venous blood - Right Arm Blood Culture - Preliminary NO GROWTH AT 48 HOURS 02/06/18 11:50 Venous blood - Left Hand Blood Culture - Preliminary NO GROWTH AT 48 HOURS Laboratory Tests 02/10/18 03:40 Troponin I 0.019 labs reviewed Phys Exam - Physical Examination Constitutional: NAD sitting up in bed playing on ipad HEENT: PERRLA, moist MMs, sclera anicteric, oral pharynx no lesions Neck: no nodes, no JVD, supple, full ROM Respiratory: no wheezing, no rales, no rhonchi, clear to auscultation bilateral Cardiovascular: RRR, no significant murmur, no rub Gastrointestinal: soft, non-tender, no distention, positive bowel sounds Musculoskeletal: no edema, pulses present Neurological: non-focal, normal sensation, moves all 4 limbs Psychiatric: normal affect, A&O x 3 Skin: no rash Dx/Plan (1) Acute respiratory failure with hypoxemia Code(s): J96.01 - ACUTE RESPIRATORY FAILURE WITH HYPOXIA Status: Acute Comment: Likley Fluid overload with PNA (2) Sepsis Code(s): A41.9 - SEPSIS, UNSPECIFIED ORGANISM Status: Acute (3) PNA (pneumonia) Code(s): J18.9 - PNEUMONIA, UNSPECIFIED ORGANISM Status: Acute (4) Septic shock Code(s): A41.9 - SEPSIS, UNSPECIFIED ORGANISM; R65.21 - SEVERE SEPSIS WITH SEPTIC SHOCK Status: Resolved (5) Recurrent UTI (urinary tract infection) Code(s): N39.0 - URINARY TRACT INFECTION, SITE NOT SPECIFIED Status: Acute Comment: 2nd episode of UTI. Renal US w no abnormalities. Continue antibiotics.urine +ve for E.coli ,2 seperate Resistance profiles (6) HLD (hyperlipidemia) Code(s): E78.5 - HYPERLIPIDEMIA, UNSPECIFIED Status: Chronic Qualifiers: Hyperlipidemia type: unspecified Qualified Code(s): E78.5 - Hyperlipidemia , unspecified (7) Personal history of DVT (deep vein thrombosis) Code(s): Z86.718 - PERSONAL HISTORY OF OTHER VENOUS THROMBOSIS AND EMBOLISM Status: Chronic Comment: Continue Xarelto. (8) Cervical myelopathy Code(s): G95.9 - DISEASE OF SPINAL CORD, UNSPECIFIED Status: Chronic (9) Diabetes mellitus type 2 in nonobese Code(s): E11.9 - TYPE 2 DIABETES MELLITUS WITHOUT COMPLICATIONS Status: Chronic Comment: Fairly well controlled. (10) Hyperthermia Code(s): R50.9 - FEVER, UNSPECIFIED Status: Resolved - Plan continue antibiotics, PT/OT, respiratory therapy, incentive spirometry, out of bed/ambulate, DVT proph w/SCDs BP improved w solucortef.weaning off pressors. on IVF.monitor fluid status -: ARTURO ,RF sent to r/o autoimmune causes -: Knee aspiration done yesterday w concerns for septic knee.cont ABx. -: Hypoxia resolved.O2 prn. -: H/H stable. cont to monitor.on xarelto.no overt bleed * .cont CCU monitoring. * am labs * appreciate input from various specialities Review of Systems - Review of Systems Constitutional: weakness. negative: fever, chills, sweats, malaise, other ENT: negative: Ear Pain, Ear Discharge, Nose Pain, Nose Discharge, Nose Congestion, Mouth Pain, Mouth Swelling, Throat Pain, Throat Swelling, Other Respiratory: negative: Cough, Dry, Shortness of Breath, Hemoptysis, SOB with Excertion, Pleuritic Pain, Sputum, Wheezing Cardiovascular: negative: chest pain, palpitations, orthopnea, paroxysmal nocturnal dyspnea, edema, light headedness, other Gastrointestinal: negative: Nausea, Vomiting, Abdominal Pain, Diarrhea, Constipation, Melena, Hematochezia, Other Genitourinary: negative: Dysuria, Frequency, Incontinence, Hematuria, Retention , Other Musculoskeletal: negative: Neck Pain, Shoulder Pain, Arm Pain, Back Pain, Hand Pain, Leg Pain, Foot Pain, Other Skin: negative: Rash, Lesions, [place], Bruising, Other Neurological: negative: Weakness, Numbness, Incoordination, Change in Speech, Confusion, Seizures, Other - Medications/Allergies Allergies/Adverse Reactions: Allergies Allergy/AdvReac Type Severity Reaction Status Date / Time No Known Drug Allergies Allergy Verified 10/18/15 02:31 Medications: Current Medications Acetaminophen (Tylenol Elixir) 650 mg PO Q6H PRN PRN Reason: Fever > 101 or Mild Pain Last Admin: 02/09/18 11:54 Dose: 650 mg Alogliptin Benzoate (Alogliptin) 25 mg PO DAILY [facility] Last Admin: 02/10/18 09:37 Dose: 25 mg Atorvastatin Calcium (Lipitor) 40 mg PO HS [facility] Last Admin: 02/09/18 20:36 Dose: 40 mg Cyclobenzaprine HCl (Flexeril) 10 mg PO BIDPRN PRN PRN Reason: Muscle Spasm Last Admin: 02/08/18 08:47 Dose: 10 mg Dextrose/Water (Dextrose 50%) 25 gm SLOW IVP PRN PRN PRN Reason: Hypoglycemia Ezetimibe (Zetia) 10 mg PO DAILY [facility] Last Admin: 02/10/18 09:38 Dose: 10 mg Enalapril Maleate (Vasotec) 2.5 mg PO DAILY [facility] Last Admin: 02/10/18 09:38 Dose: Not Given Famotidine (Pepcid) 20 mg PO BID [facility] Last Admin: 02/10/18 09:38 Dose: 20 mg Glucagon (Glucagon) 1 mg IM PRN PRN PRN Reason: Hypoglycemia Hydrocortisone Sodium Succinate (Solu-Cortef) 100 mg IVP Q6HR [facility] Last Admin: 02/10/18 11:33 Dose: 100 mg Meropenem 1 gm/ Device 50 mls @ 100 mls/hr IVPB 0800,1600,2359 [facility] Last Admin: 02/10/18 09:36 Dose: 50 mls Dextrose/Water (D5w) 1,000 mls @ 0 mls/hr IV .Q0M PRN; As Directed PRN Reason: Hypoglycemia Insulin Glargine 8 units/ (Miscellaneous Medication) 0.08 mls @ 0 mls/hr SC HS [facility] Last Admin: 02/09/18 20:37 Dose: Not Given Vancomycin HCl 1.5 gm/ Sodium (Chloride) 300 mls @ 200 mls/hr IVPB 0300,1500 [facility] Last Admin: 02/10/18 03:45 Dose: 300 mls Ibuprofen 400 mg/ Sodium (Chloride) 104 mls @ 208 mls/hr IVPB BIDPRN PRN PRN Reason: .FEVER Norepinephrine Bitartrate (Levophed) 250 mls @ 0 mls/hr IVPB INF [facility]; Titrate PRN Reason: Protocol Last Admin: 02/10/18 09:39 Dose: 250 mls Sodium Chloride (Normal Saline 0.9%) 1,000 mls @ 100 mls/hr IV .Q10H [facility] Last Admin: 02/10/18 09:26 Dose: 1,000 mls Insulin Human Lispro (Humalog) 0 units SC .MILD SLIDING SCALE PRN PRN Reason: Mild Correctional Scale Last Admin: 02/10/18 11:33 Dose: 3 unit Miscellaneous Medication (Pharmacy To Dose) 0 each IVPB ASDIR [facility] Multivitamins (Theragran) 1 tab PO DAILY [facility] Last Admin: 02/10/18 09:38 Dose: 1 tab Rivaroxaban (Xarelto) 20 mg PO QAM-WM [facility] Last Admin: 02/10/18 09:37 Dose: 20 mg Sodium Chloride (Flush - Normal Saline) 10 ml IVF Q12HR [facility] Last Admin: 02/10/18 09:38 Dose: 10 ml Sodium Chloride (Flush - Normal Saline) 10 ml IVF PRN PRN PRN Reason: Saline Flush Tamsulosin HCl (Flomax) 0.4 mg PO DAILY [facility] Last Admin: 02/10/18 09:38 Dose: 0.4 mg Tramadol HCl (Ultram) 50 mg PO TIDPRN PRN PRN Reason: Pain Last Admin: 02/09/18 00:25 Dose: 50 mg
--- NOTE | 2018-02-10 19:16 | PRG ---
DATE OF SERVICE: 02/10/2018 SUBJECTIVE: Mr. Knight is transferred to the ICU. He is awake, sitting up in bed, feeling better, mu ch more responsive today. Denies headaches. No respiratory symptoms or abdominal pain. No diarrhea . OBJECTIVE: VITAL SIGNS: T-max 103 yesterday at 11:30 a.m., now is down to 97.5. Other vital signs are normal. O2 sat is 100. GENERAL: Awake, alert, oriented. Quadriparesis as noted before. LUNGS: Symmetric air entry without crackles or wheezing. HEART: S1, S2 regular rate. ABDOMEN: Soft. LABORATORY DATA: White cell count 31,000, hemoglobin 8.5, platelets 307 with 71% neutrophils, 24% ba nds. His creatinine is 1.22. Liver profile had been within normal limits. Microbiology with the ur ine culture findings. Knee aspirate was completed and no organism seen and no growth at 12 hours. T he synovial fluid with 29,000 wbc's, no crystals were identified by inspection. ASSESSMENT AND DISCUSSION: Recurring episodes of febrile illness with negative cultures in the past with a similar presentation now. In the past, it was felt to be related to his autoimmune syndrome. He does have evidence of synovitis at this time and the cultures from the left knee and blood cultur es are pending, and will have to be followed to the end. If they remain negative, then I would assum e that this presentation represents the repeat syndrome that he had been affected with in previous ti mes, probably related to his autoimmune syndrome. Possibility of adult Still's disease is considered . We will submit ferritin levels. Continue corticosteroids. Check Cortrosyn stimulation test resul ts and if cultures remain negative, then discontinue antimicrobial therapy.
[2018-02-10] MEDS: Insulin Glargine 8 UNITS in Pre-Filled Syringe 1 EACH SC SCH (20:58)
[2018-02-10] MEDS: Atorvastatin Calcium 20 MG TAB PO SCH (20:58)
[2018-02-11] MEDS: Vancomycin HCl 1.5 GM in Sodium Chloride 0.9% 250 ML 300 ML IVPB SCH ×2 (04:00→16:40)
[2018-02-11] MEDS: MEROPENEM 1 GM/50 ML 1 GM in Premix Bag 1 BAG IVPB SCH ×4 (06:00→23:31)
[2018-02-11] MEDS: Hydrocortisone Sod Succ/PF 100 mg/2 ml Vial IVP SCH ×4 (06:00→19:56)
[2018-02-11] MEDS: Sodium Chloride 0.9% 1,000 ML IV SCH (07:26)
[2018-02-11 07:29] LABS: Hemoglobin 8.8 g/dL (14.0-18.0); Mean Corpuscular HGB CONC 32.6 g/dL (32.0-36.0); Mean Corpuscular Hemoglobin 28.6 pg (27.0-31.0); Mean Corpuscular Volume 87.7 fL (78.0-98.0); Mean Platelet Volume 7.8 fL (7.4-10.4); Platelet Count 352 thou/uL (130-400); RBC Distribution Width 19.4 % (11.5-14.5); Red Blood Cell (RBC) Count 3.07 mill/uL (4.70-6.10); White Blood Cell (WBC) Count 24.4 thou/uL (4.8-10.8)
[2018-02-11 07:43] LABS: Anion Gap 13 mmol/L (10-20); BUN (Urea Nitrogen) 26 mg/dL (8.4-25.7); Calc. Creatinine Clearance 85 mL/min (70-130); Calcium 7.8 mg/dL (7.8-10.44); Carbon Dioxide 17 mmol/L (22-29); Chloride 113 mmol/L (98-107); Estimated GFR-MDRD 83; Glucose 262 mg/dL (70-105); Potassium 3.2 mmol/L (3.5-5.1); Sodium 140 mmol/L (136-145)
[2018-02-11 08:04] LABS: Band 44 % (5-11); Eosinophils 2 % (0-10); Lymphocytes 1 % (21-51); MDiff Complete? YES; Metamyelocyte 2 % (0-0); Monocytes 2 % (0-10); Neutrophil 48 % (42-75); Reactive Lymphocytes 1 % (0-10)
[2018-02-11] MEDS: Rivaroxaban 10 MG TAB PO SCH (08:19)
[2018-02-11] MEDS: Famotidine 20 MG TAB PO SCH ×2 (08:19→19:57)
[2018-02-11] MEDS: Alogliptin 25 MG TAB PO SCH (08:19)
[2018-02-11] MEDS: Ezetimibe 10 MG TAB PO SCH (08:19)
[2018-02-11] MEDS: Multivit, Therapeutic 1 TAB PO SCH (08:19)
[2018-02-11] MEDS: Tamsulosin HCl 0.4 MG CAP PO SCH (08:19)
[2018-02-11] MEDS: HumaLOG 300 UNITS/3 ML VIAL SC PRN ×2 (08:21→11:19)
[2018-02-11] MEDS ORDERED: Acetaminophen 325 MG TAB PO PRN (08:22)
--- NOTE | 2018-02-11 08:48 | PRG ---
DATE OF SERVICE: 02/11/2018 SERVICE: Pulmonary Medicine. INTERVAL HISTORY: The patient is doing outstanding from a respiratory standpoint. He is breathing c omfortably. His strength is improving. He is tolerating p.o. Otherwise, there has been no real mami nge to his condition. PHYSICAL EXAMINATION: VITAL SIGNS: Afebrile currently with his last temperature being recorded on the 02/09/2018, pulse 10 0, blood pressure 104/77, respirations 27, saturation 94% on room air. GENERAL: The patient is awake and alert, in no apparent distress. LUNGS: Excellent air entry. Dependent crackles are minimal. No prolonged expiratory phase or wheez ing is appreciated. HEART: Normal rate, regular. ABDOMEN: Soft, nontender and nondistended. Bowel sounds are positive. MUSCULOSKELETAL: No cyanosis or clubbing. There is trace 1+ pitting in the bilateral lower extremit ies. NEUROLOGIC: Grossly nonfocal. LABORATORY DATA: WBC 24.2 and down trending. Hemoglobin 8.8, platelets 352,000. Band count has inc reased to 44%. Creatinine 1.11. Potassium 3.2. Basic metabolic profile is otherwise unremarkable. Nitrites are positive, white blood cells are 21-50 and there is significant amount of bacteria prese nt. Synovial fluid only had 29,000 white blood cells. Urine culture is growing E. coli. It is 2 se parate species, but it is sensitive to current antibiotic selection. Blood cultures x4 and C. diff i s negative to date. ASSESSMENT: 1. Septic shock. 2. Urinary tract infection. 3. Hypokalemia. DISCUSSION AND PLAN: We will continue our supportive care. We will mobilize the patient through the day. ARTURO and rheumatoid factor are currently pending. Pulmonary or Critical Care will continue to follow along while the patient remains in this location, but from my perspective, he is stable for tr ansition to the floor.
[2018-02-11] MEDS ORDERED: Hydrocortisone Sod Succ/PF 100 mg/2 ml Vial IVP SCH (09:00)
[2018-02-11] MEDS: Potassium Chloride 20 MEQ TAB PO SCH ×2 (09:57→12:13)
[2018-02-11] MEDS: sulfaSALAzine 500 MG TAB PO SCH ×2 (09:58→19:57)
[2018-02-11] MEDS: Cyclobenzaprine 10 MG TAB PO PRN ×2 (10:08→19:57)
[2018-02-11] MEDS: traMADol HCl 50 MG TAB PO PRN ×2 (10:13→19:57)
[2018-02-11] MEDS: HumaLOG 300 UNITS/3 ML VIAL SC SCH ×2 (11:19→17:08)
--- NOTE | 2018-02-11 13:49 | PDOC.PN ---
- Subjective Encounter Start Date: 02/11/18 Encounter Start Time: 13:47 Subjective: feels much better. -: c/o knee,shoulder and hand pain -: no overnight events - Objective MAR Reviewed: Yes Vital Signs & Weight: Vital Signs (12 hours) Temp BP Pulse Ox 02/11/18 08:20 112/62 02/11/18 08:00 98.1 F 02/11/18 06:40 95 Weight Admit Weight 173 lb 1.006 oz Weight 180 lb 12.465 oz Most Recent Monitor Data Heart Rate from ECG 98 NIBP 124/85 NIBP BP-Mean 94 Respiration from ECG 32 SpO2 100 I&O: 02/10/18 02/11/18 02/12/18 06:59 06:59 06:59 Intake Total 4018 3600 736.2 Output Total 165 1610 300 Balance 3853 1990 436.2 Result Diagrams: 02/11/18 07:06 02/11/18 07:06 Additional Labs: Accuchecks 02/11/18 02/10/18 02/10/18 11:20 20:59 17:13 POC Glucose 223 H 267 H 283 H 02/10/18 11:29 POC Glucose 245 H Microbiology 02/08/18 09:01 Stool C. difficile GDH Antigen & Toxins - Final 02/06/18 12:21 Urine dobbins catheter Urine Culture - Final Escherichia coli#2 Escherichia coli 02/09/18 16:25 Knee aspirate - Left Leg Body Fluid Culture - Preliminary 02/08/18 14:40 Venous blood - Right Hand Blood Culture - Preliminary NO GROWTH AT 48 HOURS 02/08/18 13:24 Venous blood - Right Hand Blood Culture - Preliminary NO GROWTH AT 48 HOURS 02/06/18 11:50 Venous blood - Right Arm Blood Culture - Preliminary NO GROWTH AT 48 HOURS 02/06/18 11:50 Venous blood - Left Hand Blood Culture - Preliminary NO GROWTH AT 48 HOURS Laboratory Tests 02/10/18 14:59 Ferritin Greater than 03974.00 H labs reviewed Phys Exam - Physical Examination Constitutional: NAD HEENT: PERRLA, moist MMs, sclera anicteric, oral pharynx no lesions Neck: no nodes, no JVD, supple, full ROM Respiratory: no wheezing, no rales, no rhonchi Cardiovascular: RRR, no significant murmur Gastrointestinal: soft, non-tender, no distention, positive bowel sounds Musculoskeletal: no edema, pulses present Neurological: non-focal, normal sensation, moves all 4 limbs Psychiatric: normal affect, A&O x 3 Skin: no rash Dx/Plan (1) Acute respiratory failure with hypoxemia Code(s): J96.01 - ACUTE RESPIRATORY FAILURE WITH HYPOXIA Status: Resolved Comment: [place] Fluid overload with PNA (2) Sepsis Code(s): A41.9 - SEPSIS, UNSPECIFIED ORGANISM Status: Acute (3) PNA (pneumonia) Code(s): J18.9 - PNEUMONIA, UNSPECIFIED ORGANISM Status: Acute (4) Septic shock Code(s): A41.9 - SEPSIS, UNSPECIFIED ORGANISM; R65.21 - SEVERE SEPSIS WITH SEPTIC SHOCK Status: Resolved (5) Recurrent UTI (urinary tract infection) Code(s): N39.0 - URINARY TRACT INFECTION, SITE NOT SPECIFIED Status: Acute Comment: 2nd episode of UTI. Renal US w no abnormalities. Continue antibiotics.urine +ve for E.coli ,2 seperate Resistance profiles (6) HLD (hyperlipidemia) Code(s): E78.5 - HYPERLIPIDEMIA, UNSPECIFIED Status: Chronic Qualifiers: Hyperlipidemia type: unspecified Qualified Code(s): E78.5 - Hyperlipidemia , unspecified (7) Personal history of DVT (deep vein thrombosis) Code(s): Z86.718 - PERSONAL HISTORY OF OTHER VENOUS THROMBOSIS AND EMBOLISM Status: Chronic Comment: Continue Xarelto. (8) Cervical myelopathy Code(s): G95.9 - DISEASE OF SPINAL CORD, UNSPECIFIED Status: Chronic (9) Diabetes mellitus type 2 in nonobese Code(s): E11.9 - TYPE 2 DIABETES MELLITUS WITHOUT COMPLICATIONS Status: Chronic Comment: Fairly well controlled. (10) Hyperthermia Code(s): R50.9 - FEVER, UNSPECIFIED Status: Resolved - Plan continue antibiotics, PT/OT, out of bed/ambulate, DVT proph w/SCDs cont solucortef for possible adrenal insufficeinecy.reduce dose & monitor -: cont empiric ABx.follow final Cx results -: hemodynamically stable. transfer to [facility]. -: replace & recheck potassium. -: Very high ferritin? accuracy in acute illness * .s/p knee aspiration.Cx Neg so far * am labs Review of Systems - Review of Systems Constitutional: weakness. negative: fever, chills, sweats, malaise, other ENT: negative: Ear Pain, Ear Discharge, Nose Pain, Nose Discharge, Nose Congestion, Mouth Pain, Mouth Swelling, Throat Pain, Throat Swelling, Other Respiratory: negative: Cough, Dry, Shortness of Breath, Hemoptysis, SOB with Excertion, Pleuritic Pain, Sputum, Wheezing Cardiovascular: negative: chest pain, palpitations, orthopnea, paroxysmal nocturnal dyspnea, edema, light headedness, other Gastrointestinal: negative: Nausea, Vomiting, Abdominal Pain, Diarrhea, Constipation, Melena, Hematochezia, Other Genitourinary: negative: Dysuria, Frequency, Incontinence, Hematuria, Retention , Other Musculoskeletal: Shoulder Pain, Hand Pain. negative: Neck Pain, Arm Pain, Back Pain, Leg Pain, Foot Pain, Other - Medications/Allergies Allergies/Adverse Reactions: Allergies Allergy/AdvReac Type Severity Reaction Status Date / Time No Known Drug Allergies Allergy Verified 10/18/15 02:31 Medications: Current Medications Acetaminophen (Tylenol Elixir) 650 mg PO Q6H PRN PRN Reason: Fever > 101 or Mild Pain Last Admin: 02/09/18 11:54 Dose: 650 mg Acetaminophen (Tylenol) 650 mg PO Q6H PRN PRN Reason: Pain Alogliptin Benzoate (Alogliptin) 25 mg PO DAILY [facility] Last Admin: 02/11/18 08:19 Dose: 25 mg Atorvastatin Calcium (Lipitor) 40 mg PO HS [facility] Last Admin: 02/10/18 20:58 Dose: 40 mg Cyclobenzaprine HCl (Flexeril) 10 mg PO BIDPRN PRN PRN Reason: Muscle Spasm Last Admin: 02/11/18 10:08 Dose: 10 mg Dextrose/Water (Dextrose 50%) 25 gm SLOW IVP PRN PRN PRN Reason: Hypoglycemia Ezetimibe (Zetia) 10 mg PO DAILY [facility] Last Admin: 02/11/18 08:19 Dose: 10 mg Famotidine (Pepcid) 20 mg PO BID [facility] Last Admin: 02/11/18 08:19 Dose: 20 mg Glucagon (Glucagon) 1 mg IM PRN PRN PRN Reason: Hypoglycemia Hydrocortisone Sodium Succinate (Solu-Cortef) 50 mg IVP Q8H [facility] Last Admin: 02/11/18 12:13 Dose: 50 mg Meropenem 1 gm/ Device 50 mls @ 100 mls/hr IVPB 0800,1600,2359 [facility] Last Admin: 02/11/18 08:18 Dose: 50 mls Dextrose/Water (D5w) 1,000 mls @ 0 mls/hr IV .Q0M PRN; As Directed PRN Reason: Hypoglycemia Vancomycin HCl 1.5 gm/ Sodium (Chloride) 300 mls @ 200 mls/hr IVPB 0300,1500 [facility] Last Admin: 02/11/18 04:00 Dose: 300 mls Ibuprofen 400 mg/ Sodium (Chloride) 104 mls @ 208 mls/hr IVPB BIDPRN PRN PRN Reason: .FEVER Insulin Glargine 15 units/ (Miscellaneous Medication) 0.15 mls @ 1 mls/hr SC HS [facility] Insulin Human Lispro (Humalog) 0 units SC .MILD SLIDING SCALE PRN PRN Reason: Mild Correctional Scale Last Admin: 02/11/18 11:19 Dose: 3 unit Insulin Human Lispro (Humalog) 5 units SC AC [facility] Last Admin: 02/11/18 11:19 Dose: 5 unit Miscellaneous Medication (Pharmacy To Dose) 0 each IVPB ASDIR [facility] Multivitamins (Theragran) 1 tab PO DAILY [facility] Last Admin: 02/11/18 08:19 Dose: 1 tab Rivaroxaban (Xarelto) 20 mg PO QAM-WM [facility] Last Admin: 02/11/18 08:19 Dose: 20 mg Sodium Chloride (Flush - Normal Saline) 10 ml IVF Q12HR [facility] Last Admin: 02/11/18 08:20 Dose: 10 ml Sodium Chloride (Flush - Normal Saline) 10 ml IVF PRN PRN PRN Reason: Saline Flush Sulfasalazine (Azulfidine) 1,000 mg PO BID [facility] Last Admin: 02/11/18 09:58 Dose: 1,000 mg Tamsulosin HCl (Flomax) 0.4 mg PO DAILY [facility] Last Admin: 02/11/18 08:19 Dose: 0.4 mg Tramadol HCl (Ultram) 50 mg PO TIDPRN PRN PRN Reason: Pain Last Admin: 02/11/18 10:13 Dose: 50 mg
[2018-02-11 14:55] LABS: Vancomycin, Trough 31.4 ug/mL
[2018-02-11] MEDS ORDERED: Vancomycin HCl 1.5 GM in Sodium Chloride 0.9% 250 ML 300 ML IVPB SCH (15:45)
[2018-02-11] MEDS: Atorvastatin Calcium 20 MG TAB PO SCH (19:57)
[2018-02-11] MEDS: Insulin Glargine 15 UNITS in Pre-Filled Syringe 1 EACH SC SCH (21:35)
[2018-02-12] MEDS: Hydrocortisone Sod Succ/PF 100 mg/2 ml Vial IVP SCH ×3 (05:08→21:03)
[2018-02-12 05:53] LABS: Anion Gap 13 mmol/L (10-20); BUN (Urea Nitrogen) 26 mg/dL (8.4-25.7); Calc. Creatinine Clearance 98 mL/min (70-130); Calcium 8.2 mg/dL (7.8-10.44); Carbon Dioxide 18 mmol/L (22-29); Chloride 113 mmol/L (98-107); Estimated GFR-MDRD Greater than 90; Glucose 161 mg/dL (70-105); Potassium 3.8 mmol/L (3.5-5.1); Sodium 140 mmol/L (136-145)
[2018-02-12 05:59] LABS: Vancomycin, Random 20.3 ug/mL (See Comment)
[2018-02-12 06:45] LABS: Band 22 % (5-11); Eosinophils 2 % (0-10); Hemoglobin 8.1 g/dL (14.0-18.0); Lymphocytes 8 % (21-51); MDiff Complete? YES; Mean Corpuscular HGB CONC 31.3 g/dL (32.0-36.0); Mean Corpuscular Hemoglobin 27.7 pg (27.0-31.0); Mean Corpuscular Volume 88.4 fL (78.0-98.0); Mean Platelet Volume 8.4 fL (7.4-10.4); Monocytes 4 % (0-10); Neutrophil 64 % (42-75); Nucleated RBC 1 % (0); Platelet Count 297 thou/uL (130-400); RBC Distribution Width 19.6 % (11.5-14.5); Red Blood Cell (RBC) Count 2.93 mill/uL (4.70-6.10); White Blood Cell (WBC) Count 13.3 thou/uL (4.8-10.8)
[2018-02-12] MEDS: Ezetimibe 10 MG TAB PO SCH (08:37)
[2018-02-12] MEDS: MEROPENEM 1 GM/50 ML 1 GM in Premix Bag 1 BAG IVPB SCH (08:37)
[2018-02-12] MEDS: Multivit, Therapeutic 1 TAB PO SCH (08:37)
[2018-02-12] MEDS: sulfaSALAzine 500 MG TAB PO SCH ×2 (08:37→21:03)
[2018-02-12] MEDS: Tamsulosin HCl 0.4 MG CAP PO SCH (08:37)
[2018-02-12] MEDS: HumaLOG 300 UNITS/3 ML VIAL SC SCH ×3 (08:38→17:02)
[2018-02-12] MEDS: Alogliptin 25 MG TAB PO SCH (08:38)
[2018-02-12] MEDS: Famotidine 20 MG TAB PO SCH ×2 (08:38→21:02)
[2018-02-12] MEDS: Rivaroxaban 10 MG TAB PO SCH (08:38)
[2018-02-12] MEDS: HumaLOG 300 UNITS/3 ML VIAL SC PRN (11:09)
--- NOTE | 2018-02-12 14:14 | PDOC.PN ---
- Subjective Encounter Start Date: 02/12/18 Encounter Start Time: 14:12 Subjective: has swelling of hands and feet w joint soreness - Objective MAR Reviewed: Yes Vital Signs & Weight: Vital Signs (12 hours) Temp Pulse Resp BP BP Pulse Ox 02/12/18 12:45 97.6 F 91 16 126/72 98 02/12/18 07:34 97.9 F 99 16 125/69 98 02/12/18 07:20 97.6 F 91 16 98 02/12/18 04:03 97.2 F L 91 18 113/70 Weight Admit Weight 173 lb 1.006 oz Weight 178 lb 3.2 oz Most Recent Monitor Data Heart Rate from ECG 96 NIBP 118/86 NIBP BP-Mean 92 Respiration from ECG 32 SpO2 100 I&O: 02/11/18 02/12/18 02/13/18 06:59 06:59 06:59 Intake Total 3600 1536.2 Output Total 1610 1300 Balance 1990 236.2 Result Diagrams: 02/12/18 04:51 02/12/18 04:51 Additional Labs: Accuchecks 02/12/18 02/12/18 02/11/18 10:49 05:58 20:33 POC Glucose 222 H 145 H 139 H 02/11/18 17:01 POC Glucose 115 H Microbiology 02/08/18 09:01 Stool C. difficile GDH Antigen & Toxins - Final 02/06/18 12:21 Urine dobbins catheter Urine Culture - Final Escherichia coli#2 Escherichia coli 02/06/18 11:50 Venous blood - Right Arm Blood Culture - Final NO GROWTH IN 5 DAYS 02/06/18 11:50 Venous blood - Left Hand Blood Culture - Final NO GROWTH IN 5 DAYS 02/09/18 16:25 Knee aspirate - Left Leg Body Fluid Culture - Preliminary 02/08/18 14:40 Venous blood - Right Hand Blood Culture - Preliminary NO GROWTH AT 48 HOURS 02/08/18 13:24 Venous blood - Right Hand Blood Culture - Preliminary NO GROWTH AT 48 HOURS labs reviewed Phys Exam - Physical Examination Constitutional: NAD sitting up in chair HEENT: PERRLA, moist MMs, sclera anicteric, oral pharynx no lesions Neck: no nodes, no JVD, supple, full ROM Respiratory: no wheezing, no rales, no rhonchi, clear to auscultation bilateral Cardiovascular: RRR, no significant murmur, no rub Gastrointestinal: soft, non-tender, no distention, positive bowel sounds Musculoskeletal: pulses present, edema present Neurological: non-focal, normal sensation, moves all 4 limbs Psychiatric: normal affect, A&O x 3 Skin: no rash Dx/Plan (1) Sepsis Code(s): A41.9 - SEPSIS, UNSPECIFIED ORGANISM Status: Acute Comment: UTi and PNA (2) PNA (pneumonia) Code(s): J18.9 - PNEUMONIA, UNSPECIFIED ORGANISM Status: Acute (3) Recurrent UTI (urinary tract infection) Code(s): N39.0 - URINARY TRACT INFECTION, SITE NOT SPECIFIED Status: Acute Comment: 2nd episode of UTI. Renal US w no abnormalities. Continue antibiotics.urine +ve for E.coli ,2 seperate Resistance profiles (4) HLD (hyperlipidemia) Code(s): E78.5 - HYPERLIPIDEMIA, UNSPECIFIED Status: Chronic Qualifiers: Hyperlipidemia type: unspecified Qualified Code(s): E78.5 - Hyperlipidemia , unspecified (5) Personal history of DVT (deep vein thrombosis) Code(s): Z86.718 - PERSONAL HISTORY OF OTHER VENOUS THROMBOSIS AND EMBOLISM Status: Chronic Comment: Continue Xarelto. (6) Cervical myelopathy Code(s): G95.9 - DISEASE OF SPINAL CORD, UNSPECIFIED Status: Chronic (7) Diabetes mellitus type 2 in nonobese Code(s): E11.9 - TYPE 2 DIABETES MELLITUS WITHOUT COMPLICATIONS Status: Chronic Comment: Fairly well controlled. (8) Hyperthermia Code(s): R50.9 - FEVER, UNSPECIFIED Status: Resolved (9) Acute respiratory failure with hypoxemia Code(s): J96.01 - ACUTE RESPIRATORY FAILURE WITH HYPOXIA Status: Resolved Comment: [place] Fluid overload with PNA (10) Septic shock Code(s): A41.9 - SEPSIS, UNSPECIFIED ORGANISM; R65.21 - SEVERE SEPSIS WITH SEPTIC SHOCK Status: Resolved - Plan PT/OT, respiratory therapy, incentive spirometry, out of bed/ambulate, DVT proph w/SCDs clinically better every day.taper ABx based on Cx/sensitivities. -: cont homemeds as below. -: Bp stable .on solucortef-taper -: OT,PT. -: due for MTx tomorrow for h/o RA.? Adult Still's Dz. * .follows w Rheumatology as an Op * am labs * autoimmune work up ordered.follow resulst including RF,ARTURO etc Review of Systems - Review of Systems Constitutional: weakness, malaise. negative: fever, chills, sweats, other Respiratory: negative: Cough, Dry, Shortness of Breath, Hemoptysis, SOB with Excertion, Pleuritic Pain, Sputum, Wheezing Cardiovascular: negative: chest pain, palpitations, orthopnea, paroxysmal nocturnal dyspnea, edema, light headedness, other Gastrointestinal: negative: Nausea, Vomiting, Abdominal Pain, Diarrhea, Constipation, Melena, Hematochezia, Other Genitourinary: negative: Dysuria, Frequency, Incontinence, Hematuria, Retention , Other Musculoskeletal: negative: Neck Pain, Shoulder Pain, Arm Pain, Back Pain, Hand Pain, Leg Pain, Foot Pain, Other Neurological: negative: Weakness, Numbness, Incoordination, Change in Speech, Confusion, Seizures, Other - Medications/Allergies Allergies/Adverse Reactions: Allergies Allergy/AdvReac Type Severity Reaction Status Date / Time No Known Drug Allergies Allergy Verified 10/18/15 02:31 Medications: Current Medications Acetaminophen (Tylenol Elixir) 650 mg PO Q6H PRN PRN Reason: Fever > 101 or Mild Pain Last Admin: 02/09/18 11:54 Dose: 650 mg Acetaminophen (Tylenol) 650 mg PO Q6H PRN PRN Reason: Pain Alogliptin Benzoate (Alogliptin) 25 mg PO DAILY [facility] Last Admin: 02/12/18 08:38 Dose: 25 mg Atorvastatin Calcium (Lipitor) 40 mg PO HS [facility] Last Admin: 02/11/18 19:57 Dose: 40 mg Cyclobenzaprine HCl (Flexeril) 10 mg PO BIDPRN PRN PRN Reason: Muscle Spasm Last Admin: 02/11/18 19:57 Dose: 10 mg Dextrose/Water (Dextrose 50%) 25 gm SLOW IVP PRN PRN PRN Reason: Hypoglycemia Ezetimibe (Zetia) 10 mg PO DAILY [facility] Last Admin: 02/12/18 08:37 Dose: 10 mg Famotidine (Pepcid) 20 mg PO BID [facility] Last Admin: 02/12/18 08:38 Dose: 20 mg Glucagon (Glucagon) 1 mg IM PRN PRN PRN Reason: Hypoglycemia Hydrocortisone Sodium Succinate (Solu-Cortef) 50 mg IVP Q8H [facility] Last Admin: 02/12/18 11:08 Dose: 50 mg Dextrose/Water (D5w) 1,000 mls @ 0 mls/hr IV .Q0M PRN; As Directed PRN Reason: Hypoglycemia Insulin Glargine 15 units/ (Miscellaneous Medication) 0.15 mls @ 1 mls/hr SC HS [facility] Last Admin: 02/11/18 21:35 Dose: Not Given Ceftriaxone Sodium 1 gm/ (Sodium Chloride) 100 mls @ 200 mls/hr IVPB Q24HR [facility] Insulin Human Lispro (Humalog) 0 units SC .MILD SLIDING SCALE PRN PRN Reason: Mild Correctional Scale Last Admin: 02/12/18 11:09 Dose: 3 unit Insulin Human Lispro (Humalog) 5 units SC AC [facility] Last Admin: 02/12/18 11:08 Dose: 5 unit Multivitamins (Theragran) 1 tab PO DAILY [facility] Last Admin: 02/12/18 08:37 Dose: 1 tab Rivaroxaban (Xarelto) 20 mg PO QAM-WM [facility] Last Admin: 02/12/18 08:38 Dose: 20 mg Sodium Chloride (Flush - Normal Saline) 10 ml IVF Q12HR [facility] Last Admin: 02/12/18 08:38 Dose: 10 ml Sodium Chloride (Flush - Normal Saline) 10 ml IVF PRN PRN PRN Reason: Saline Flush Sulfasalazine (Azulfidine) 1,000 mg PO BID [facility] Last Admin: 02/12/18 08:37 Dose: 1,000 mg Tamsulosin HCl (Flomax) 0.4 mg PO DAILY [facility] Last Admin: 02/12/18 08:37 Dose: 0.4 mg Tramadol HCl (Ultram) 50 mg PO TIDPRN PRN PRN Reason: Pain Last Admin: 02/11/18 19:57 Dose: 50 mg
[2018-02-12 14:26] LABS: Vancomycin, Random 19.6 ug/mL (See Comment)
[2018-02-12] MEDS: cefTRIAXone\\ROCEPHIN 1 GM in Sodium Chloride 0.9% 100 ML IVPB SCH (15:00)
[2018-02-12] MEDS ORDERED: Furosemide 20 MG/2 ML VIAL SLOW IVP SCH (17:00)
[2018-02-12] MEDS ORDERED: Potassium Chloride 20 MEQ TAB PO SCH (17:00)
--- NOTE | 2018-02-12 19:33 | PRG ---
DATE OF SERVICE: 02/12/2018 SERVICE: Pulmonary Medicine. INTERVAL HISTORY: The patient is doing outstanding from a respiratory standpoint. He is breathing c omfortably. No complaints of chest pain, nausea, vomiting, fevers or chills. Otherwise, he is retur wendi to his usual state of health. OBJECTIVE: VITAL SIGNS: Afebrile, pulse 91, blood pressure 126/72, respirations 16, saturation 98% on room air. GENERAL: The patient is awake, alert, no apparent distress. LUNGS: Excellent air entry. Dependent crackles are present. HEART: Normal rate, regular. ABDOMEN: Soft, nontender, nondistended. Bowel sounds are positive. MUSCULOSKELETAL: No cyanosis or clubbing. There is 2+ pitting in the bilateral lower extremities. NEUROLOGIC: Grossly nonfocal. LABORATORY DATA: WBC 13.3, hemoglobin 8.1, platelets 297,000. Chloride 113, sodium 140. Basic meta bolic profile is otherwise unremarkable. Vancomycin trough 19.6. Urine culture is growing E. coli, which is sensitive to multiple antibiotics. Blood cultures x4 are unremarkable. C. diff antigen and toxin are negative. Body fluid cultures negative to date. ASSESSMENT: 1. Septic shock, resolved. 2. Urinary tract infection. 3. Hypokalemia, resolved. DISCUSSION AND PLAN: I will continue our efforts at mobilizing the patient. ARTURO, rheumatoid factor currently pending. I will give the patient a dose of Lasix today and tomorrow morning to help mobili ze some of this fluid. After that, can be provided on a p.r.n. basis. Dr. Styles will return to fo llow the patient in the morning.
[2018-02-12] MEDS: Atorvastatin Calcium 20 MG TAB PO SCH (21:01)
[2018-02-12] MEDS: Cyclobenzaprine 10 MG TAB PO PRN (21:02)
[2018-02-12] MEDS: Insulin Glargine 15 UNITS in Pre-Filled Syringe 1 EACH SC SCH (21:08)
[2018-02-12] MEDS: traMADol HCl 50 MG TAB PO PRN (23:51)
[2018-02-13 05:14] LABS: Anion Gap 14 mmol/L (10-20); BUN (Urea Nitrogen) 27 mg/dL (8.4-25.7); Calc. Creatinine Clearance 86 mL/min (70-130); Calcium 8.2 mg/dL (7.8-10.44); Carbon Dioxide 16 mmol/L (22-29); Chloride 114 mmol/L (98-107); Estimated GFR-MDRD 85; Glucose 161 mg/dL (70-105); Potassium 3.9 mmol/L (3.5-5.1); Sodium 140 mmol/L (136-145)
[2018-02-13] MEDS: Hydrocortisone Sod Succ/PF 100 mg/2 ml Vial IVP SCH (05:22)
[2018-02-13 06:16] LABS: Band 8 % (5-11); Eosinophils 3 % (0-10); Hemoglobin 8.8 g/dL (14.0-18.0); Lymphocytes 9 % (21-51); MDiff Complete? YES; Mean Corpuscular HGB CONC 31.2 g/dL (32.0-36.0); Mean Corpuscular Hemoglobin 27.9 pg (27.0-31.0); Mean Corpuscular Volume 89.3 fL (78.0-98.0); Mean Platelet Volume 8.6 fL (7.4-10.4); Monocytes 3 % (0-10); Neutrophil 77 % (42-75); Nucleated RBC 3 % (0); Platelet Count 291 thou/uL (130-400); RBC Distribution Width 20.1 % (11.5-14.5); Red Blood Cell (RBC) Count 3.14 mill/uL (4.70-6.10); White Blood Cell (WBC) Count 14.3 thou/uL (4.8-10.8)
[2018-02-13] MEDS: HumaLOG 300 UNITS/3 ML VIAL SC SCH ×3 (08:36→16:10)
[2018-02-13] MEDS: Tamsulosin HCl 0.4 MG CAP PO SCH (08:37)
[2018-02-13] MEDS: Rivaroxaban 10 MG TAB PO SCH (08:37)
[2018-02-13] MEDS: Ezetimibe 10 MG TAB PO SCH (08:37)
[2018-02-13] MEDS: Alogliptin 25 MG TAB PO SCH (08:37)
[2018-02-13] MEDS: sulfaSALAzine 500 MG TAB PO SCH ×2 (08:37→20:18)
[2018-02-13] MEDS: Multivit, Therapeutic 1 TAB PO SCH (08:37)
[2018-02-13] MEDS: Famotidine 20 MG TAB PO SCH ×2 (08:37→20:18)
[2018-02-13 08:43] LABS: Iron 47 ug/dL (65-175); Iron Binding Capacity, Total 125 mcg/dL (261-462)
[2018-02-13] MEDS ORDERED: predniSONE 20 MG TAB PO SCH (09:00)
[2018-02-13] MEDS ORDERED: Furosemide 20 MG/2 ML VIAL SLOW IVP SCH (09:00)
--- NOTE | 2018-02-13 09:03 | PRG ---
DATE OF SERVICE: 02/13/2018 The patient is doing better, had no acute complaints. PHYSICAL EXAMINATION: VITAL SIGNS: Temperature 97.5, pulse 81, respiration 20, O2 sat 97%, blood pressure 108/60, 24-hour intake 1536, output 1300. Weight 178 pounds. HEENT: Unremarkable. NECK: No JVD. LUNGS: Fairly clear anteriorly. CARDIOVASCULAR: S1 and S2 regular. ABDOMEN: Soft. EXTREMITIES: Trace edema. LABORATORY DATA: White blood cell count 14.3, hematocrit 20.1, platelet count 291. Sodium 140, pota ssium 3.9, chloride 114, CO2 16, anion gap 14, BUN 27, creatinine 1.0, glucose 161. ASSESSMENT: 1. Status post acute respiratory failure. 2. Status post profound hypotension. 3. Urinary tract infection. 4. Inappropriate result of ACTH stim test. PLAN: 1. Go ahead and start weaning the steroids. 2. Continue antibiotics as long as Dr. Nickerson recommends. 3. Increase activity as tolerated.
[2018-02-13 09:15] LABS: Folate (Folic Acid) 8.2 ng/mL (7.0-31.4)
--- NOTE | 2018-02-13 15:50 | PDOC.PN ---
- Subjective Encounter Start Date: 02/13/18 Encounter Start Time: 15:49 Subjective: feels much better. leg swelling - Objective MAR Reviewed: Yes Vital Signs & Weight: Vital Signs (12 hours) Temp Pulse Resp BP BP Pulse Ox 02/13/18 11:52 97.6 F 85 16 113/74 98 02/13/18 07:15 97.5 F L 81 20 108/60 97 02/13/18 03:54 97.5 F L 79 20 101/58 L 98 Weight Admit Weight 173 lb 1.006 oz Weight 178 lb 4.8 oz Most Recent Monitor Data Heart Rate from ECG 96 NIBP 118/86 NIBP BP-Mean 92 Respiration from ECG 32 SpO2 100 I&O: 02/12/18 02/13/18 02/14/18 06:59 06:59 06:59 Intake Total 1536.2 122 Output Total 1300 725 Balance 236.2 -603 Result Diagrams: 02/13/18 04:02 02/13/18 04:02 Additional Labs: Accuchecks 02/13/18 02/13/18 02/12/18 10:55 05:58 21:04 POC Glucose 170 H 167 H 160 H 02/12/18 16:35 POC Glucose 188 H labs reviewed Phys Exam - Physical Examination Constitutional: NAD HEENT: PERRLA, moist MMs, sclera anicteric, oral pharynx no lesions Neck: no nodes, no JVD, supple, full ROM Respiratory: no wheezing, no rales, no rhonchi Cardiovascular: RRR, no significant murmur Gastrointestinal: soft, non-tender, no distention, positive bowel sounds Musculoskeletal: pulses present, edema present Neurological: non-focal, normal sensation, moves all 4 limbs Psychiatric: normal affect, A&O x 3 Skin: no rash Dx/Plan (1) Sepsis Code(s): A41.9 - SEPSIS, UNSPECIFIED ORGANISM Status: Acute Comment: UTi and PNA (2) PNA (pneumonia) Code(s): J18.9 - PNEUMONIA, UNSPECIFIED ORGANISM Status: Acute (3) Recurrent UTI (urinary tract infection) Code(s): N39.0 - URINARY TRACT INFECTION, SITE NOT SPECIFIED Status: Acute Comment: 2nd episode of UTI. Renal US w no abnormalities. Continue antibiotics.urine +ve for E.coli ,2 seperate Resistance profiles (4) HLD (hyperlipidemia) Code(s): E78.5 - HYPERLIPIDEMIA, UNSPECIFIED Status: Chronic Qualifiers: Hyperlipidemia type: unspecified Qualified Code(s): E78.5 - Hyperlipidemia , unspecified (5) Personal history of DVT (deep vein thrombosis) Code(s): Z86.718 - PERSONAL HISTORY OF OTHER VENOUS THROMBOSIS AND EMBOLISM Status: Chronic Comment: Continue Xarelto. (6) Cervical myelopathy Code(s): G95.9 - DISEASE OF SPINAL CORD, UNSPECIFIED Status: Chronic (7) Diabetes mellitus type 2 in nonobese Code(s): E11.9 - TYPE 2 DIABETES MELLITUS WITHOUT COMPLICATIONS Status: Chronic Comment: Fairly well controlled. (8) Hyperthermia Code(s): R50.9 - FEVER, UNSPECIFIED Status: Resolved (9) Acute respiratory failure with hypoxemia Code(s): J96.01 - ACUTE RESPIRATORY FAILURE WITH HYPOXIA Status: Resolved Comment: You Fluid overload with PNA (10) Septic shock Code(s): A41.9 - SEPSIS, UNSPECIFIED ORGANISM; R65.21 - SEVERE SEPSIS WITH SEPTIC SHOCK Status: Resolved - Plan continue antibiotics, out of bed/ambulate, DVT proph w/SCDs clinically much better. cont ABx. -: taper down steroids. -: appreciate PCCM and ID help -: Refuses rehab,will arrange HH for you [facility] in am -: Pt does not rememeber MTX dose,called pharmacy-not filled [facility], later [facility] * .cont sulfasalazine * am labs Review of Systems - Review of Systems Constitutional: weakness. negative: fever, chills, sweats, malaise, other Eyes: negative: Pain, Vision Change, Conjunctivae Inflammation, Eyelid Inflammation, Redness, Other ENT: negative: Ear Pain, Ear Discharge, Nose Pain, Nose Discharge, Nose Congestion, Mouth Pain, Mouth Swelling, Throat Pain, Throat Swelling, Other Respiratory: negative: Cough, Dry, Shortness of Breath, Hemoptysis, SOB with Excertion, Pleuritic Pain, Sputum, Wheezing Cardiovascular: edema. negative: chest pain, palpitations, orthopnea, paroxysmal nocturnal dyspnea, light headedness, other Gastrointestinal: negative: Nausea, Vomiting, Abdominal Pain, Diarrhea, Constipation, Melena, Hematochezia, Other Genitourinary: negative: Dysuria, Frequency, Incontinence, Hematuria, Retention , Other Musculoskeletal: negative: Neck Pain, Shoulder Pain, Arm Pain, Back Pain, Hand Pain, Leg Pain, Foot Pain, Other Skin: negative: Rash, Lesions, [place], Bruising, Other Neurological: negative: Weakness, Numbness, Incoordination, Change in Speech, Confusion, Seizures, Other - Medications/Allergies Allergies/Adverse Reactions: Allergies Allergy/AdvReac Type Severity Reaction Status Date / Time No Known Drug Allergies Allergy Verified 10/18/15 02:31 Medications: Current Medications Acetaminophen (Tylenol Elixir) 650 mg PO Q6H PRN PRN Reason: Fever > 101 or Mild Pain Last Admin: 02/09/18 11:54 Dose: 650 mg Acetaminophen (Tylenol) 650 mg PO Q6H PRN PRN Reason: Pain Last Admin: 02/12/18 21:02 Dose: 650 mg Alogliptin Benzoate (Alogliptin) 25 mg PO DAILY [facility] Last Admin: 02/13/18 08:37 Dose: 25 mg Atorvastatin Calcium (Lipitor) 40 mg PO [facility] Last Admin: 02/12/18 21:01 Dose: 40 mg Cyclobenzaprine HCl (Flexeril) 10 mg PO BIDPRN PRN PRN Reason: Muscle Spasm Last Admin: 02/12/18 21:02 Dose: 10 mg Dextrose/Water (Dextrose 50%) 25 gm SLOW IVP PRN PRN PRN Reason: Hypoglycemia Ezetimibe (Zetia) 10 mg PO DAILY [facility] Last Admin: 02/13/18 08:37 Dose: 10 mg Famotidine (Pepcid) 20 mg PO BID [facility] Last Admin: 02/13/18 08:37 Dose: 20 mg Glucagon (Glucagon) 1 mg IM PRN PRN PRN Reason: Hypoglycemia Dextrose/Water (D5w) 1,000 mls @ 0 mls/hr IV .Q0M PRN; As Directed PRN Reason: Hypoglycemia Insulin Glargine 15 units/ (Miscellaneous Medication) 0.15 mls @ 1 mls/hr SC [facility] Last Admin: 02/12/18 21:08 Dose: 0.15 mls Ceftriaxone Sodium 1 gm/ (Sodium Chloride) 100 mls @ 200 mls/hr IVPB Q24HR [facility] Last Admin: 02/12/18 15:00 Dose: 100 mls Insulin Human Lispro (Humalog) 0 units SC .MILD SLIDING SCALE PRN PRN Reason: Mild Correctional Scale Last Admin: 02/12/18 11:09 Dose: 3 unit Insulin Human Lispro (Humalog) 5 units SC AC [facility] Last Admin: 02/13/18 11:42 Dose: 5 unit Multivitamins (Theragran) 1 tab PO DAILY [facility] Last Admin: 02/13/18 08:37 Dose: 1 tab Prednisone (Prednisone) 20 mg PO DAILY [facility] Last Admin: 02/13/18 08:40 Dose: 20 mg Rivaroxaban (Xarelto) 20 mg PO QAM-WM [facility] Last Admin: 02/13/18 08:37 Dose: 20 mg Sodium Chloride (Flush - Normal Saline) 10 ml IVF Q12HR [facility] Last Admin: 02/13/18 08:37 Dose: 10 ml Sodium Chloride (Flush - Normal Saline) 10 ml IVF PRN PRN PRN Reason: Saline Flush Last Admin: 02/13/18 05:22 Dose: 10 ml Sulfasalazine (Azulfidine) 1,000 mg PO BID [facility] Last Admin: 02/13/18 08:37 Dose: 1,000 mg Tamsulosin HCl (Flomax) 0.4 mg PO DAILY [facility] Last Admin: 02/13/18 08:37 Dose: 0.4 mg Tramadol HCl (Ultram) 50 mg PO TIDPRN PRN PRN Reason: Pain Last Admin: 02/12/18 23:51 Dose: 50 mg
[2018-02-13] MEDS: cefTRIAXone\\ROCEPHIN 1 GM in Sodium Chloride 0.9% 100 ML IVPB SCH (16:09)
[2018-02-13] MEDS: traMADol HCl 50 MG TAB PO PRN (20:18)
[2018-02-13] MEDS: Atorvastatin Calcium 20 MG TAB PO SCH (20:18)
[2018-02-13] MEDS: Cyclobenzaprine 10 MG TAB PO PRN (20:25)
[2018-02-13] MEDS: Insulin Glargine 15 UNITS in Pre-Filled Syringe 1 EACH SC SCH (21:14)
[2018-02-14] MEDS ORDERED: Acetaminophen 1,000 MG in Premix Bag 1 BAG IVPB SCH (02:00)
--- NOTE | 2018-02-14 02:27 | PDOC.EVN ---
Event Note - Event Note Event Note: Code green activated due to increased heart rate and desaturation, pt has fever , we will give tylenol , monitor hr after fever, to see if it gets better, we will treat accordingly. saturation has been normal during examination.
[2018-02-14 02:33] LABS: INR-International Normal Ratio 1.6; PTT 30.6 SEC (22.9-36.1)
[2018-02-14 02:37] LABS: Hemoglobin 10.1 g/dL (14.0-18.0); Mean Corpuscular HGB CONC 31.9 g/dL (32.0-36.0); Mean Corpuscular Hemoglobin 27.9 pg (27.0-31.0); Mean Corpuscular Volume 87.4 fL (78.0-98.0); Mean Platelet Volume 8.6 fL (7.4-10.4); Platelet Count 287 thou/uL (130-400); RBC Distribution Width 20.5 % (11.5-14.5)
[2018-02-14 02:40] LABS: ALT (SGPT) 91 U/L (8-55); AST (SGOT) 84 U/L (5-34); Albumin 2.9 g/dL (3.5-5.0); Alkaline Phosphatase 207 U/L (40-150); Anion Gap 16 mmol/L (10-20); BUN (Urea Nitrogen) 23 mg/dL (8.4-25.7); Bilirubin, Total 0.5 mg/dL (0.2-1.2); Calc. Creatinine Clearance 85 mL/min (70-130); Calcium 8.5 mg/dL (7.8-10.44); Carbon Dioxide 22 mmol/L (22-29); Chloride 109 mmol/L (98-107); Estimated GFR-MDRD 83; Globulin 3.3 g/dL (2.4-3.5); Glucose 87 mg/dL (70-105); Potassium 3.5 mmol/L (3.5-5.1); Protein, Total 6.2 g/dL (6.0-8.3); Sodium 143 mmol/L (136-145)
[2018-02-14] MEDS ORDERED: Acetaminophen 650 MG Suppository PR PRN (02:53)
[2018-02-14 03:02] LABS: Band 26 % (5-11); Eosinophils 1 % (0-10); Lymphocytes 10 % (21-51); MDiff Complete? YES; Monocytes 1 % (0-10); Neutrophil 62 % (42-75); Nucleated RBC 1 % (0)
[2018-02-14] MEDS: Piperacillin/Tazobactam 3.375 GM in Sodium Chloride 0.9% 100 ML IVPB SCH ×4 (03:15→21:09)
[2018-02-14] MEDS ORDERED: Vancomycin HCl 1 GM in Premix Bag 1 BAG IVPB SCH (03:30)
[2018-02-14 06:33] LABS: Lactic Acid 5.2 mmol/L (0.5-2.2)
[2018-02-14] MEDS: Dextrose 50% Abboject 50 ML SYRINGE SLOW IVP PRN ×2 (06:59→10:44)
[2018-02-14] MEDS ORDERED: Hydrocortisone Sod Succ/PF 100 MG in Sodium Chloride 0.9% 50 ML IVPB SCH (07:15)
[2018-02-14] MEDS ORDERED: Sodium Chloride 0.9% 500 ML IV SCH (07:45)
[2018-02-14 07:49] LABS: Glucose 75 mg/dL (70-105)
[2018-02-14] MEDS: HumaLOG 300 UNITS/3 ML VIAL SC SCH ×3 (07:50→16:05)
--- NOTE | 2018-02-14 08:30 | PRG ---
DATE OF SERVICE: 02/14/2018 A Code Eugene was called on Mr. Knight twice this morning, around 3:00 he spiked a fever to 103.5, expe rienced O2 desaturation. This improved. This morning around 8:00 a.m. he was found to be hypoglycem ic and subsequently transferred over to the CCU for further evaluation. He is awake. He is able to give a history. He says the only thing that hurts is his left shoulder, but he says that is from man ipulation when they moved him from one bed to another. He says his knee is not hurting currently. PHYSICAL EXAMINATION: VITAL SIGNS: On physical exam his last temperature was 98.7, pulse in the 119 range, blood pressure 85/45, O2 sat 93% on 3 liters. HEENT: Unremarkable. NECK: No JVD. LUNGS: Clear without wheezing or rhonchi. CARDIAC: S1, S2, tachycardic. ABDOMEN: Soft, nontender, nondistended. EXTREMITIES: There is no swelling in either knee. He has a scar over his left shoulder. His chest x-ray shows no acute mass, effusion or infiltrate. LABORATORY DATA: Sodium 143, potassium 3.5, chloride 109, CO2 of 22, BUN 23, creatinine 1.1, glucose 87. It was measured less than 35 at 6:53 a.m. and the last measured glucose was 68 at 7:48. Albumi n is 2.9. White blood cell count 21.0, hemoglobin 10, hematocrit 31, platelet count 287 with 62 neut rophils, 26% bands. ASSESSMENT: This patient has recurrent episodes of fever that so far have not been explained. He aviles d Escherichia coli sepsis when he came in, but he has been on constant antibiotics since so I doubt t hat is still a problem. The prospect of autoimmune disease has been brought up, but the autoimmune p anels are still pending. Of note, I had tried to wean the steroids yesterday. He had been on Lantus insulin for management of steroid related hyperglycemia. The Lantus will be stopped and he will be put back on hydrocortisone. He will be bolused with IV fluids. His diuretics have been stopped. Dr Maeve Nickerson is seeing the patient.
[2018-02-14 08:47] LABS: CRP (Inflammatory) 6.55 mg/dL (= or < 0.5)
--- NOTE | 2018-02-14 09:15 | RAD ---
UPRIGHT PORTABLE CHEST ONE VIEW: History: 57-year-old male with history of follow up fever and urinary tract infection and tachycardia with con cern for aspiration. FINDINGS: Monitor leads overlie the chest. Heart size is within normal limits. The lungs are clear of acute pro cess. Left shoulder replacement. Mild bilateral vascular congestion, slightly more prominent than nain or study. IMPRESSION: Developing mild bilateral vascular congestion since prior study. No confluent pneumonia or pleural ef fusion. Minimal atherosclerosis of the aorta. POS: [facility]
[2018-02-14] MEDS: Ezetimibe 10 MG TAB PO SCH (09:40)
[2018-02-14] MEDS: Rivaroxaban 10 MG TAB PO SCH (09:40)
[2018-02-14] MEDS: Multivit, Therapeutic 1 TAB PO SCH (09:41)
[2018-02-14] MEDS: Tamsulosin HCl 0.4 MG CAP PO SCH (09:41)
[2018-02-14] MEDS: Alogliptin 25 MG TAB PO SCH (09:41)
[2018-02-14] MEDS: Famotidine 20 MG TAB PO SCH ×2 (09:42→21:09)
[2018-02-14] MEDS: sulfaSALAzine 500 MG TAB PO SCH ×2 (10:10→21:09)
[2018-02-14] MEDS: Hydrocortisone Sod Succ/PF 100 mg/2 ml Vial IVP SCH ×3 (11:21→23:31)
[2018-02-14 13:47] LABS: Bacteria/HPF None Seen HPF (None Seen); Bilirubin Negative (Negative); Blood, Urine Moderate (Negative); Clarity CLOUDY (Clear); Glucose, Urine (Dipstick) Negative (Negative); Hyaline Casts/LPF 7-10 HYALINE CAST LPF (0-3 Hyaline); Leukocyte Small (Negative); Nitrite Negative (Negative); Protein, Urine (Dipstick) 100 mg/dL (Neg-Trace); Specific Gravity, Urine 1.022 (1.002-1.036); Squamous Epithelial 0-3 HPF (0-3); Urobilinogen 0.2 mg/dL (0.2-1.0); WBC/HPF 21-50 HPF (0-3); pH, Urine 5.5 (5.0-9.0)
[2018-02-14 13:48] LABS: Yeast-AUWi Flag 1535.8 (0-25.0)
[2018-02-14 13:49] LABS: Pathc Cast-AUWi Flag 2.76 (0-2.49)
[2018-02-14 14:05] LABS: Manual Microscopic Reviewed? No Path Casts Seen; RBC/HPF 0-3 HPF (0-3); Renal Epithelial None Seen HPF (0-3); Transitional Epithelial NONE SEEN HPF (0-3); Yeast-All Forms 3+ HPF (None Seen)
[2018-02-14] MEDS: Dextrose 5% in Water 1,000 ML IV SCH ×2 (14:48→21:10)
--- NOTE | 2018-02-14 15:01 | RAD ---
LEFT SHOULDER THREE VIEWS: History: Left shoulder pain. FINDINGS/IMPRESSION: There are post op changes of the left humeral head prosthesis in good position and alignment. No frac ture or dislocation or bony destruction is identified. POS: OFF
[2018-02-14 16:17] LABS: Cytoplasmic (C-ANCA) <1:20 titer (Neg:<1:20); Perinuclear (P-ANCA) <1:20 titer (Neg:<1:20)
--- NOTE | 2018-02-14 18:25 | PRG ---
DATE OF SERVICE: 02/14/2018 HISTORY: Mr. Knight developed tachycardia and desaturation with fever and is transferred back to the ICU associated with hypoglycemia. He had some pain in the left shoulder, but otherwise denies any co ugh or sputum production, no chest pain, no abdominal pain or diarrhea. OBJECTIVE: VITAL SIGNS: T-max was 103.5 at 1:45 a.m. now is 98, O2 sats bottom down at 23, he is now at 100, hi s BP is 112/62. SKIN: Normal. GENERAL: He is awake. He is feeling better. LUNGS: Symmetric air entry. HEART: S1, S2, Regular rate. ABDOMEN: Soft and not distended. EXTREMITIES: He moves extremities equally. LABORATORY DATA: White cell count 21,000, hemoglobin 10, platelets 287 with 62% neutrophils, 26% ban ds and creatinine 1.10, AST 84, ALT 91, alkaline phosphatase is 207, albumin 2.9. CRP 6.55. LDH 924 . The ferritin was 33,600. All the cultures are negative except for this urine culture, which I thi nk was probably mostly colonization. The abdomen and pelvis CT from the 02/09/2018, which showed félix ateral pleural effusions, atelectases and some patchy parenchymal changes at right lung base, probabl y asymmetric volume loss, kidney cyst and a chest x-ray done today, vascular congestion. ASSESSMENT AND DISCUSSION: Recurring episodes of febrile illness with negative cultures in the past which have failed to respond to antimicrobial therapy and resolve the corticosteroids. This has been felt to be related to an autoimmune syndrome in the past, although serologies were negative except f or borderline rheumatoid factor in view of the arthralgias and the normal liver function tests and fe iggy of unknown origin. The possibility of adult Still's disease needs to be considered. This is par ticularly in the face of very high ferritin levels. Consider Rheumatology consultation.
--- NOTE | 2018-02-14 18:25 | PDOC.PN ---
- Subjective Encounter Start Date: 02/14/18 Encounter Start Time: 18:23 (late entry) Subjective: Pt coded last night w fever & hypotension then again this morning -: care discussed w family over phone in detail - Objective MAR Reviewed: Yes Vital Signs & Weight: Vital Signs (12 hours) Temp Pulse Pulse Pulse Pulse Pulse Resp 02/14/18 15:55 98.0 F 02/14/18 11:04 98.3 F 02/14/18 08:00 98.9 F 117 H 24 H 02/14/18 07:43 117 H 121 H 122 H 120 H 02/14/18 06:55 02/14/18 06:52 125 H 24 H 02/14/18 06:41 116 H 24 H 02/14/18 06:28 98.7 F Resp Resp Resp Resp BP BP BP 02/14/18 15:55 02/14/18 11:04 02/14/18 08:00 02/14/18 07:43 26 H 28 H 26 H 18 60/35 L 70/45 L 76/47 L 02/14/18 06:55 02/14/18 06:52 02/14/18 06:41 02/14/18 06:28 BP BP Pulse Ox Pulse Ox Pulse Ox Pulse Ox Pulse Ox 02/14/18 15:55 02/14/18 11:04 02/14/18 08:00 100 02/14/18 07:43 73/47 L 100 100 100 100 02/14/18 06:55 93 L 02/14/18 06:52 120/55 L 02/14/18 06:41 87/48 L 02/14/18 06:28 Weight Admit Weight 173 lb 1.006 oz Weight 173 lb 3.2 oz Most Recent Monitor Data Heart Rate from ECG 105 NIBP 94/61 NIBP BP-Mean 71 Respiration from ECG 19 SpO2 100 I&O: 02/13/18 02/14/18 02/15/18 06:59 06:59 06:59 Intake Total 122 1662 3065 Output Total 725 1700 750 Balance -603 -38 2315 Result Diagrams: 02/14/18 02:07 02/14/18 07:21 Additional Labs: Accuchecks 02/14/18 02/14/18 02/14/18 15:54 13:08 11:04 POC Glucose 187 H 114 H 83 02/14/18 02/14/18 02/14/18 10:40 07:48 06:53 POC Glucose Less than 35 L* 68 L Less than 35 L* 02/14/18 02/13/18 02/13/18 01:43 21:16 16:39 POC Glucose 92 209 H 186 H Laboratory Tests 02/06/18 02/14/18 11:51 02:07 AST 31 84 H labs reviewed Phys Exam - Physical Examination Constitutional: NAD lethrgic but AAOX3 HEENT: PERRLA, moist MMs, sclera anicteric, oral pharynx no lesions Neck: no nodes, no JVD, supple, full ROM Respiratory: no wheezing, no rales, no rhonchi Cardiovascular: RRR, no significant murmur Gastrointestinal: soft, non-tender, no distention, positive bowel sounds Musculoskeletal: no edema, pulses present Neurological: moves all 4 limbs Psychiatric: normal affect, A&O x 3 Skin: no rash Dx/Plan (1) Sepsis Code(s): A41.9 - SEPSIS, UNSPECIFIED ORGANISM Status: Acute Comment: UTi and PNA (2) PNA (pneumonia) Code(s): J18.9 - PNEUMONIA, UNSPECIFIED ORGANISM Status: Acute (3) Recurrent UTI (urinary tract infection) Code(s): N39.0 - URINARY TRACT INFECTION, SITE NOT SPECIFIED Status: Acute Comment: 2nd episode of UTI. Renal US w no abnormalities. Continue antibiotics.urine +ve for E.coli ,2 seperate Resistance profiles (4) HLD (hyperlipidemia) Code(s): E78.5 - HYPERLIPIDEMIA, UNSPECIFIED Status: Chronic Qualifiers: Hyperlipidemia type: unspecified Qualified Code(s): E78.5 - Hyperlipidemia , unspecified (5) Personal history of DVT (deep vein thrombosis) Code(s): Z86.718 - PERSONAL HISTORY OF OTHER VENOUS THROMBOSIS AND EMBOLISM Status: Chronic Comment: Continue Xarelto. (6) Cervical myelopathy Code(s): G95.9 - DISEASE OF SPINAL CORD, UNSPECIFIED Status: Chronic (7) Diabetes mellitus type 2 in nonobese Code(s): E11.9 - TYPE 2 DIABETES MELLITUS WITHOUT COMPLICATIONS Status: Chronic Comment: Fairly well controlled. (8) Hyperthermia Code(s): R50.9 - FEVER, UNSPECIFIED Status: Resolved (9) Acute respiratory failure with hypoxemia Code(s): J96.01 - ACUTE RESPIRATORY FAILURE WITH HYPOXIA Status: Resolved Comment: [place] Fluid overload with PNA (10) Septic shock Code(s): A41.9 - SEPSIS, UNSPECIFIED ORGANISM; R65.21 - SEVERE SEPSIS WITH SEPTIC SHOCK Status: Resolved - Plan plan discussed w/ family, continue antibiotics, DVT proph w/SCDs Pt sensitive to steroid withdrwal.will restart IV steroids that were tapere -: ? autoimmune disease. ARTURO,RF pending. -: infectious work up started again.on empiric ABX. -: restart IVF.monitor fluid balance. -: Appreciate ID & PCCM input.supportive care.In CCU for now * . Review of Systems - Review of Systems Constitutional: weakness, malaise Cardiovascular: negative: chest pain, palpitations, orthopnea, paroxysmal nocturnal dyspnea, edema, light headedness, other Gastrointestinal: Nausea. negative: Vomiting, Abdominal Pain, Diarrhea, Constipation, Melena, Hematochezia, Other Genitourinary: negative: Dysuria, Frequency, Incontinence, Hematuria, Retention , Other Musculoskeletal: Back Pain, Leg Pain. negative: Neck Pain, Shoulder Pain, Arm Pain, Hand Pain, Foot Pain, Other Neurological: negative: Weakness, Numbness, Incoordination, Change in Speech, Confusion, Seizures, Other - Medications/Allergies Allergies/Adverse Reactions: Allergies Allergy/AdvReac Type Severity Reaction Status Date / Time No Known Drug Allergies Allergy Verified 10/18/15 02:31 Medications: Current Medications Acetaminophen (Tylenol Elixir) 650 mg PO Q6H PRN PRN Reason: Fever > 101 or Mild Pain Last Admin: 02/09/18 11:54 Dose: 650 mg Acetaminophen (Tylenol) 650 mg PO Q6H PRN PRN Reason: Pain Last Admin: 02/12/18 21:02 Dose: 650 mg Acetaminophen (Tylenol) 650 mg ND Q4H PRN PRN Reason: FEVER > 100.4 Alogliptin Benzoate (Alogliptin) 25 mg PO DAILY [facility] Last Admin: 02/14/18 09:41 Dose: 25 mg Atorvastatin Calcium (Lipitor) 40 mg PO HS [facility] Last Admin: 02/13/18 20:18 Dose: 40 mg Cyclobenzaprine HCl (Flexeril) 10 mg PO BIDPRN PRN PRN Reason: Muscle Spasm Last Admin: 02/13/18 20:25 Dose: 10 mg Dextrose/Water (Dextrose 50%) 25 gm SLOW IVP PRN PRN PRN Reason: Hypoglycemia Last Admin: 02/14/18 10:44 Dose: 25 gm Ezetimibe (Zetia) 10 mg PO DAILY [facility] B[facility]S [facility] Last Admin: 02/14/18 09:40 Dose: 10 mg Famotidine (Pepcid) 20 mg PO BID [facility]S [facility] Last Admin: 02/14/18 09:42 Dose: 20 mg Glucagon (Glucagon) 1 mg IM PRN PRN PRN Reason: Hypoglycemia Hydrocortisone Sodium Succinate (Solu-Cortef) 100 mg IVP Q6HR [facility] 234 BEDS AT [facility] Last Admin: 02/14/18 17:07 Dose: 100 mg Dextrose/Water (D5w) 1,000 mls @ 0 mls/hr IV .Q0M PRN; As Directed PRN Reason: Hypoglycemia Last Admin: 02/14/18 07:49 Dose: 1,000 mls Piperacillin Sod/Tazobactam (Sod 3.375 gm/ Sodium Chloride) 100 mls @ 200 mls/ hr IVPB 0300,0900,1500,2100 [facility] 234 BEDS AT [facility] Last Admin: 02/14/18 14:48 Dose: 100 mls Dextrose/Water (D5w) 1,000 mls @ 100 mls/hr IV .Q10H [facility] 234 BEDS AT [facility] Last Admin: 02/14/18 14:48 Dose: Not Given Insulin Human Lispro (Humalog) 0 units SC .MILD SLIDING SCALE PRN PRN Reason: Mild Correctional Scale Last Admin: 02/12/18 11:09 Dose: 3 unit Insulin Human Lispro (Humalog) 5 units SC AC [facility] 234 [facility]S [facility] Last Admin: 02/14/18 16:05 Dose: 5 unit Multivitamins (Theragran) 1 tab PO DAILY [facility] Last Admin: 02/14/18 09:41 Dose: 1 tab Rivaroxaban (Xarelto) 20 mg PO QAM-WM [facility] 234 [facility]S [facility] Last Admin: 02/14/18 09:40 Dose: 20 mg Sodium Chloride (Flush - Normal Saline) 10 ml IVF Q12HR [facility] 234 [facility]S [facility] Last Admin: 02/14/18 09:42 Dose: 10 ml Sodium Chloride (Flush - Normal Saline) 10 ml IVF PRN PRN PRN Reason: Saline Flush Last Admin: 02/13/18 05:22 Dose: 10 ml Sulfasalazine (Azulfidine) 1,000 mg PO BID [facility] 234 B[facility]S [facility] Last Admin: 02/14/18 10:10 Dose: 1,000 mg Tamsulosin HCl (Flomax) 0.4 mg PO DAILY [facility] 234 BEDS AT [facility] Last Admin: 02/14/18 09:41 Dose: 0.4 mg Tramadol HCl (Ultram) 50 mg PO TIDPRN PRN PRN Reason: Pain Last Admin: 02/13/18 20:18 Dose: 50 mg
[2018-02-14] MEDS: Atorvastatin Calcium 20 MG TAB PO SCH (21:09)
[2018-02-14] MEDS: HumaLOG 300 UNITS/3 ML VIAL SC PRN (22:07)
[2018-02-15] MEDS ORDERED: Albumin 25% 25 GM/100 ML BOT IVPB SCH (01:30)
[2018-02-15] MEDS: Piperacillin/Tazobactam 3.375 GM in Sodium Chloride 0.9% 100 ML IVPB SCH ×4 (01:59→21:43)
[2018-02-15 04:19] LABS: Anion Gap 15 mmol/L (10-20); BUN (Urea Nitrogen) 24 mg/dL (8.4-25.7); Calc. Creatinine Clearance 79 mL/min (70-130); Calcium 7.8 mg/dL (7.8-10.44); Carbon Dioxide 20 mmol/L (22-29); Chloride 107 mmol/L (98-107); Estimated GFR-MDRD 80; Glucose 207 mg/dL (70-105); Sodium 139 mmol/L (136-145)
[2018-02-15 04:22] LABS: Potassium 2.9 mmol/L (3.5-5.1)
[2018-02-15] MEDS ORDERED: Potassium Phosphate 12 MMOL in Sodium Chloride 0.9% 250 ML 250 ML IV PRN (04:47)
[2018-02-15] MEDS ORDERED: Potassium Phosphate 9 MMOL in Sodium Chloride 0.9% 100 ML IVPB PRN (04:47)
[2018-02-15] MEDS ORDERED: Magnesium Oxide 400 MG TAB PO PRN ×2 (04:47)
[2018-02-15] MEDS ORDERED: Potassium Chloride 40 MEQ in Sodium Chloride 0.9% 250 ML 250 ML IVPB PRN (04:47)
[2018-02-15] MEDS ORDERED: Potassium Chloride 40 MEQ in Premix Bag 1 BAG IVPB PRN (04:47)
[2018-02-15] MEDS ORDERED: Potassium Phosphate 15 MMOL in Sodium Chloride 0.9% 250 ML 250 ML IV PRN (04:47)
[2018-02-15] MEDS ORDERED: CCU ELECTROLYTE REPLACEMENT PROTOCOL FS PRN (04:47)
[2018-02-15] MEDS ORDERED: Magnesium 2 GM/NS 0.9% 100 ML 2 GM in Premix Bag 1 BAG IVPB PRN (04:47)
[2018-02-15] MEDS: Potassium Chloride 20 MEQ TAB PO PRN ×2 (05:19→13:17)
[2018-02-15] MEDS: Hydrocortisone Sod Succ/PF 100 mg/2 ml Vial IVP SCH ×2 (05:21→11:42)
[2018-02-15] MEDS: HumaLOG 300 UNITS/3 ML VIAL SC PRN ×4 (05:42→21:49)
[2018-02-15 05:52] LABS: Band 31 % (5-11); Hemoglobin 7.8 g/dL (14.0-18.0); Lymphocytes 11 % (21-51); MDiff Complete? YES; Mean Corpuscular HGB CONC 31.4 g/dL (32.0-36.0); Mean Corpuscular Hemoglobin 27.8 pg (27.0-31.0); Mean Corpuscular Volume 88.6 fL (78.0-98.0); Mean Platelet Volume 9.4 fL (7.4-10.4); Metamyelocyte 1 % (0-0); Monocytes 7 % (0-10); Neutrophil 50 % (42-75); Nucleated RBC 1 % (0); Platelet Count 176 thou/uL (130-400); Polychromasia SLIGHT = 2-3 cells (100X) (0-2/hpf); RBC Distribution Width 21.1 % (11.5-14.5); Red Blood Cell (RBC) Count 2.79 mill/uL (4.70-6.10); White Blood Cell (WBC) Count 23.2 thou/uL (4.8-10.8)
--- NOTE | 2018-02-15 07:49 | PRG ---
DATE OF SERVICE: 02/15/2018. SUBJECTIVE: The patient appears to be better this morning. He had no acute complaints. PHYSICAL EXAMINATION: VITAL SIGNS: Temperature is 99.0 with his last elevated temperature being about 24 hours ago at 103. 5, pulse 97, blood pressure 115/58. A 24-hour intake 4884, output 1150, weight 171 pounds. HEENT: Unremarkable. NECK: No JVD. CHEST: Clear without wheezing or rhonchi. CARDIAC: S1, S2, slightly tachycardic. ABDOMEN: Soft. EXTREMITIES: No clubbing, cyanosis, or edema. LABORATORY DATA: White blood cell count 23.2, hemoglobin 7.8, hematocrit 24.7, platelet count 176. Sodium 139, potassium 2.9, chloride 107, CO2 20, BUN 24, creatinine 1.1, glucose 207. His ANCA titer s were negative. Unfortunately, we still do not have rheumatoid factor or ARTURO back. ASSESSMENT: Possibility of rheumatologic disease exist. It would be helpful to have his rheumatoid factor and ARTURO back to make further disposition regarding this. I am not sure what the hold up is on that. In the meantime, he is being treated for sepsis syndrome, but I think it is more likely that he is responding to the steroids more than anything else. RECOMMENDATION: He can be transferred out to the intermediate care unit.
[2018-02-15] MEDS: HumaLOG 300 UNITS/3 ML VIAL SC SCH ×3 (08:16→17:28)
[2018-02-15] MEDS: Rivaroxaban 10 MG TAB PO SCH (08:16)
[2018-02-15] MEDS: Multivit, Therapeutic 1 TAB PO SCH (08:17)
[2018-02-15] MEDS: Ezetimibe 10 MG TAB PO SCH (08:17)
[2018-02-15] MEDS: Alogliptin 25 MG TAB PO SCH (08:17)
[2018-02-15] MEDS: Famotidine 20 MG TAB PO SCH ×2 (08:17→21:43)
[2018-02-15] MEDS: sulfaSALAzine 500 MG TAB PO SCH (08:18)
[2018-02-15] MEDS: Dextrose 5% in Water 1,000 ML IV SCH (08:19)
[2018-02-15] MEDS: Tamsulosin HCl 0.4 MG CAP PO SCH (08:21)
[2018-02-15] MEDS ORDERED: Hydrocortisone Sod Succ/PF 1,000 MG in Sodium Chloride 0.9% 50 ML IVPB STA (11:59)
[2018-02-15 12:31] LABS: ANA Symphony (Qualitative) Negative (Negative); CCP IgG Antibody 1.2 EliAU/mL (<7 Negative); EliA RAS New Method **** NEW METHOD ****; EliA Thy New Method **** NEW METHOD ****; EliA Vaculitis New Method **** NEW METHOD ****; Mitochondrial Ab 0.7 U/mL (<4 Negative); Rheumatoid Factor IgA Antibody 3.7 IU/mL (<14 Negative); Rheumatoid Factor IgM Antibody 0.6 IU/mL; Thyroid Peroxidase IgG Ab Less than 4.0 IU/mL (<25 Normal); dsDNA IgG Antibody 0.9 IU/mL (<10 Negative)
[2018-02-15 12:41] LABS: Potassium 2.9 mmol/L (3.5-5.1)
--- NOTE | 2018-02-15 13:30 | PDOC.PN ---
- Subjective Encounter Start Date: 02/15/18 Encounter Start Time: 10:10 Subjective: no sob, feels better -: sister at bedside -: is fully oriented and moves all extremities - Objective MAR Reviewed: Yes Vital Signs & Weight: Vital Signs (12 hours) Temp Pulse Resp Pulse Ox 02/15/18 12:00 97.6 F 02/15/18 08:00 97.6 F 104 H 19 100 02/15/18 04:00 99.0 F Weight Admit Weight 173 lb 1.006 oz Weight 171 lb 8.314 oz Most Recent Monitor Data Heart Rate from ECG 94 NIBP 108/63 NIBP BP-Mean 84 Respiration from ECG 28 SpO2 100 I&O: 02/14/18 02/15/18 02/16/18 06:59 06:59 06:59 Intake Total 1662 4884 600 Output Total 1700 1150 2 Balance -38 3734 598 Result Diagrams: 02/15/18 03:37 02/15/18 11:45 Additional Labs: Accuchecks 02/15/18 02/15/18 02/14/18 11:02 05:42 22:07 POC Glucose 256 H 226 H 210 H 02/14/18 02/14/18 15:54 10:40 POC Glucose 187 H Less than 35 L* Phys Exam - Physical Examination HEENT: PERRLA, moist MMs Neck: no JVD, supple Respiratory: no wheezing, no rales Cardiovascular: RRR, no significant murmur Gastrointestinal: soft, non-tender, no distention, positive bowel sounds Musculoskeletal: pulses present, edema present Neurological: non-focal, moves all 4 limbs Psychiatric: normal affect, A&O x 3 Dx/Plan (1) Sepsis Code(s): A41.9 - SEPSIS, UNSPECIFIED ORGANISM Status: Suspected Qualifiers: Sepsis type: sepsis due to unspecified organism Qualified Code(s): A41.9 - Sepsis, unspecified organism (2) UTI (urinary tract infection) Status: Acute Qualifiers: Urinary tract infection type: acute cystitis Hematuria presence: without hematuria Qualified Code(s): N30.00 - Acute cystitis without hematuria (3) Cervical myelopathy Code(s): G95.9 - DISEASE OF SPINAL CORD, UNSPECIFIED Status: Chronic (4) DVT (deep venous thrombosis) Status: Chronic Qualifiers: DVT location: lower extremity Chronicity: acute Laterality: left (5) Diabetes mellitus type 2 in nonobese Code(s): E11.9 - TYPE 2 DIABETES MELLITUS WITHOUT COMPLICATIONS Status: Chronic (6) Inflammatory arthropathy Code(s): M19.90 - UNSPECIFIED OSTEOARTHRITIS, UNSPECIFIED SITE Status: Chronic Comment: has sero -ve RA, on chronic methotrexate IM and prednisone (7) Hypotension Status: Acute (8) HLD (hyperlipidemia) Code(s): E78.5 - HYPERLIPIDEMIA, UNSPECIFIED Status: Chronic Qualifiers: Hyperlipidemia type: unspecified Qualified Code(s): E78.5 - Hyperlipidemia , unspecified (9) Chronic anemia Code(s): D64.9 - ANEMIA, UNSPECIFIED Status: Chronic (10) Elevated ferritin level Code(s): R79.89 - OTHER SPECIFIED ABNORMAL FINDINGS OF BLOOD CHEMISTRY Status : Acute Comment: [id number] - 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 He normally ambulates with cane/walker inside the house. Review of Systems - Medications/Allergies Allergies/Adverse Reactions: Allergies Allergy/AdvReac Type Severity Reaction Status Date / Time No Known Drug Allergies Allergy Verified 10/18/15 02:31 Medications: Current Medications Acetaminophen (Tylenol Elixir) 650 mg PO Q6H PRN PRN Reason: Fever > 101 or Mild Pain Last Admin: 02/09/18 11:54 Dose: 650 mg Acetaminophen (Tylenol) 650 mg PO Q6H PRN PRN Reason: Pain Last Admin: 02/12/18 21:02 Dose: 650 mg Acetaminophen (Tylenol) 650 mg [place] Q4H PRN PRN Reason: FEVER > 100.4 Alogliptin Benzoate (Alogliptin) 25 mg PO DAILY [facility] Last Admin: 02/15/18 08:17 Dose: 25 mg Atorvastatin Calcium (Lipitor) 40 mg PO HS [facility] Last Admin: 02/14/18 21:09 Dose: 40 mg Cyclobenzaprine HCl (Flexeril) 10 mg PO BIDPRN PRN PRN Reason: Muscle Spasm Last Admin: 02/13/18 20:25 Dose: 10 mg Dextrose/Water (Dextrose 50%) 25 gm SLOW IVP PRN PRN PRN Reason: Hypoglycemia Last Admin: 02/14/18 10:44 Dose: 25 gm Ezetimibe (Zetia) 10 mg PO DAILY [facility] Last Admin: 02/15/18 08:17 Dose: 10 mg Famotidine (Pepcid) 20 mg PO BID [facility] Last Admin: 02/15/18 08:17 Dose: 20 mg Glucagon (Glucagon) 1 mg IM PRN PRN PRN Reason: Hypoglycemia Dextrose/Water (D5w) 1,000 mls @ 0 mls/hr IV .Q0M PRN; As Directed PRN Reason: Hypoglycemia Last Admin: 02/14/18 07:49 Dose: 1,000 mls Piperacillin Sod/Tazobactam (Sod 3.375 gm/ Sodium Chloride) 100 mls @ 200 mls/ hr IVPB 0300,0900,1500,2100 [facility] Last Admin: 02/15/18 08:17 Dose: 100 mls Dextrose/Water (D5w) 1,000 mls @ 100 mls/hr IV .Q10H [facility] Last Admin: 02/15/18 08:19 Dose: 1,000 mls Potassium Chloride 40 meq/ (Sodium Chloride) 270 mls @ 135 mls/hr IVPB ASDIR PRN PRN Reason: FOR SERUM K+ 2.5 - 3.5 Potassium Chloride 40 meq/ (Device) 100 mls @ 50 mls/hr IVPB ASDIR PRN PRN Reason: FOR SERUM K+ 2.5 - 3.5 Magnesium Sulfate 1 gm/ Sodium (Chloride) 102 mls @ 102 mls/hr IV PRN PRN PRN Reason: MAG LEVEL 1.4 - 2.0 Magnesium Sulfate 2 gm/ Device 100 mls @ 100 mls/hr IVPB ASDIR PRN PRN Reason: MAGNESIUM < 1.4 Potassium Phosphate 9 mmol/ (Sodium Chloride) 103 mls @ 25.75 mls/hr IVPB ASDIR PRN PRN Reason: Phosphate 1.0-1.8 Potassium Phosphate 12 mmol/ (Sodium Chloride) 254 mls @ 63.5 mls/hr IV ASDIR PRN PRN Reason: Serum phosphate 0.5-0.9 Potassium Phosphate 15 mmol/ (Sodium Chloride) 255 mls @ 63.75 mls/hr IV ASDIR PRN PRN Reason: Serum Phos < 0.5 Insulin Human Lispro (Humalog) 0 units SC .MILD SLIDING SCALE PRN PRN Reason: Mild Correctional Scale Last Admin: 02/15/18 11:42 Dose: 4 unit Insulin Human Lispro (Humalog) 5 units SC [facility] Last Admin: 02/15/18 11:42 Dose: 5 unit Magnesium Oxide (Magnesium Oxide) 400 mg PO BIDPRN PRN PRN Reason: FOR SERUM MAG 1.4 - 2.0 Magnesium Oxide (Magnesium Oxide) 800 mg PO PRN PRN PRN Reason: FOR SERUM MAG < 1.4 Miscellaneous Medication (Phos-Nak) 1 pkt PO TIDPRN PRN PRN Reason: FOR PHOS LEVEL 1.0 - 1.8 Miscellaneous Medication (Phos-Nak) 2 pkt PO TIDPRN PRN PRN Reason: FOR PHOS LEVEL 0.5 - 1.0 Multivitamins (Theragran) 1 tab PO DAILY [facility] Last Admin: 02/15/18 08:17 Dose: 1 tab Ccu Electrolyte (Replacement Protocol) 0 each FS PRN PRN PRN Reason: FOR ELECTROLYTE REPLACEMENT Potassium Chloride (K-Dur) 40 meq PO ASDIR PRN PRN Reason: FOR SERUM K+ 2.5 - 3.5 Last Admin: 02/15/18 13:17 Dose: 40 meq Potassium Chloride (Klor-Con) 40 meq PER TUBE ASDIR PRN PRN Reason: FOR SERUM K+ 2.5-3.5 Rivaroxaban (Xarelto) 20 mg PO QAM[facility] Last Admin: 02/15/18 08:16 Dose: 20 mg Sodium Chloride (Flush - Normal Saline) 10 ml IVF Q12HR [facility] Last Admin: 02/15/18 08:18 Dose: 10 ml Sodium Chloride (Flush - Normal Saline) 10 ml IVF PRN PRN PRN Reason: Saline Flush Last Admin: 02/13/18 05:22 Dose: 10 ml Sulfasalazine (Azulfidine) 1,000 mg PO BID [facility] Last Admin: 02/15/18 08:18 Dose: 1,000 mg Tamsulosin HCl (Flomax) 0.4 mg PO DAILY [facility] Last Admin: 02/15/18 08:21 Dose: 0.4 mg Tramadol HCl (Ultram) 50 mg PO TIDPRN PRN PRN Reason: Pain Last Admin: 02/13/18 20:18 Dose: 50 mg
[2018-02-15] MEDS: Fluconazole 100 MG TAB PO SCH (17:30)
[2018-02-15 20:36] LABS: INR-International Normal Ratio 2.7; PTT 43.8 SEC (22.9-36.1); Prothrombin Time 30.1 SEC (12.0-14.7)
[2018-02-15 20:53] LABS: D-Dimer Test Greater than 20.00 *mcg/mL (0.27-0.43)
[2018-02-15] MEDS: Atorvastatin Calcium 20 MG TAB PO SCH (21:43)
[2018-02-15 22:51] LABS: Syphilis Antibody INDETERMINATE (Nonreactive); Syphilis Titer Non-Reactive (Negative)
--- NOTE | 2018-02-16 01:18 | PRG ---
DATE OF SERVICE: 02/15/2018 SUBJECTIVE: Patient has been transferred to [facility]. He is sitting up by the bedside and feeling back to normal pretty much. No headaches. No pain in the back. No abdominal pain. He is voiding spontaneously without any tenderness. No dysuria. PHYSICAL EXAMINATION: VITAL SIGNS: His temperature is normalized. EYES: Ocular movements are conjugate. HEART: S1, S2, regular rate. ABDOMEN: Soft. LUNGS: Clear. ASSESSMENT AND DISCUSSION: Recurring episodes of febrile illness with negative cultures in the past, now with similar presentation. An autoimmune process including Adult Still's disease is within the realm of possibilities. He seems to respond everytime steroids were given. I would discontinue antimicrobial therapy at this point in time waiting under Rheumatology input. ERICK
[2018-02-16] MEDS: Piperacillin/Tazobactam 3.375 GM in Sodium Chloride 0.9% 100 ML IVPB SCH (03:12)
[2018-02-16 05:59] LABS: Anion Gap 9 mmol/L (10-20); BUN (Urea Nitrogen) 21 mg/dL (8.4-25.7); Calc. Creatinine Clearance 82 mL/min (70-130); Calcium 7.8 mg/dL (7.8-10.44); Carbon Dioxide 24 mmol/L (22-29); Chloride 107 mmol/L (98-107); Estimated GFR-MDRD 84; Glucose 207 mg/dL (70-105); Potassium 3.2 mmol/L (3.5-5.1); Sodium 137 mmol/L (136-145)
[2018-02-16 06:21] LABS: HBCM Index 0.07 S/CO (0-0.79); HBSAg Index 0.19 S/CO (0-0.99); Hep A IgM AB Non-Reactive (NonReactive); Hep A IgM S/CO 0.25 S/CO (0-0.79); Hep B Surf Ag Non-Reactive S/CO (NonReactive); Hep C IgG Ab Non-Reactive (NonReactive); Hep C Index 0.14 S/CO (0-0.79); Hepatitis B Core IGM Abs Non-Reactive (NonReactive)
[2018-02-16 06:50] LABS: Hemoglobin 7.1 g/dL (14.0-18.0); Mean Corpuscular HGB CONC 32.3 g/dL (32.0-36.0); Mean Corpuscular Hemoglobin 28.7 pg (27.0-31.0); Mean Corpuscular Volume 88.9 fL (78.0-98.0); Mean Platelet Volume 10.4 fL (7.4-10.4); Platelet Count 141 thou/uL (130-400); RBC Distribution Width 20.7 % (11.5-14.5); Red Blood Cell (RBC) Count 2.46 mill/uL (4.70-6.10); White Blood Cell (WBC) Count 18.4 thou/uL (4.8-10.8)
[2018-02-16 08:16] LABS: Band 23 % (5-11); Eosinophils 1 % (0-10); Lymphocytes 38 % (21-51); MDiff Complete? YES; Metamyelocyte 1 % (0-0); Monocytes 2 % (0-10); Myelocyte 1 % (0-0); Neutrophil 28 % (42-75); Nucleated RBC 1 % (0); PLT Morphology Comment Appears Adequate; Reactive Lymphocytes 6 % (0-10); Schistocytes SLIGHT = 2-5 cells (100X) (0-1/hpf)
[2018-02-16] MEDS: HumaLOG 300 UNITS/3 ML VIAL SC SCH ×3 (08:17→17:09)
[2018-02-16] MEDS: Ezetimibe 10 MG TAB PO SCH (08:18)
[2018-02-16] MEDS: Multivit, Therapeutic 1 TAB PO SCH (08:18)
[2018-02-16] MEDS: Rivaroxaban 10 MG TAB PO SCH (08:18)
[2018-02-16] MEDS: Famotidine 20 MG TAB PO SCH ×2 (08:18→20:16)
--- NOTE | 2018-02-16 08:26 | PRG ---
DATE OF SERVICE: 02/16/2018 Mr. Knight feels much better today. He started pulse dose Solu-Medrol yesterday. Dr. Barney from heumatology saw him. The patient has a history of seronegative rheumatoid arthritis, but Dr. Cuauhtemoc veras thinks that we may be dealing with adult onset Still's disease. PHYSICAL EXAMINATION: VITAL SIGNS: His temperature is 98.6 with no fever, pulse 88, respirations 18, O2 saturation 98% on room air. HEENT: Unremarkable. NECK: No JVD. LUNGS: Clear without wheezing or rhonchi. CARDIAC: S1 and S2 regular. ABDOMEN: Soft, nontender. EXTREMITIES: Generalized trace edema. LABORATORY DATA: White blood cell count 18.4, hemoglobin 7.1, hematocrit 21.9, platelet count 141. INR yesterday was 2.7, PTT 43.8. D-dimer greater than 20. Sodium 137, potassium 3.2, chloride 107, CO2 24, BUN 21, creatinine 1.1, glucose 207. ASSESSMENT: 1. Urinary tract infection at the time of admission. 2. Multiple episodes of high fever followed by hypotension with a negative infection workup other th an what was present in the urine at the time of admission and some yeast that has grown in the urine since. 3. 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 4. Anemia. 5. Hypokalemia. PLAN: 1. Replace potassium. 2. Follow hemoglobin and hematocrit. 3. May end up needing Hematology input on this case. 4. Received a high dose Solu-Medrol. I appreciate Dr. Barney's assistance. 5. The patient on Xarelto for history of deep venous thrombosis - that is likely the reason for the abnormal PT and INR. The D-dimer elevation is unlikely due to thromboembolic disease as the patient is on chronic anticoagulation.
--- NOTE | 2018-02-16 08:51 | ULT ---
COMPLETE ABDOMINAL ULTRASOUND: Date: 02/16/18 HISTORY: Abdominal pain. COMPARISON: CT abdomen/pelvis dated 02/09/18. TECHNIQUE: Multiplanar Quiros scale and color Doppler images were obtained in a complete abdominal ultrasound. FINDINGS: The liver is normal in echogenicity without focal lesions or intrahepatic ductal dilatation. Gallblad dacia has been removed. Common bile duct is normal measuring 4.0 mm. The aorta and inferior vena cava are normal in caliber. Visualized portions of the pancreas are unrem arkable. The spleen contains one solitary echogenic focus measuring 7.0 mm in size. The spleen is nor mal in size, measuring 10.6 cm. There are anechoic cysts seen in both kidneys. The largest is seen on the right measuring 4.5 cm in s ize. The kidneys demonstrate normal cortical echogenicity without hydronephrosis or shadowing calculi and measure 10.7 and 11.4 cm in length on the right and left, respectively. IMPRESSION: Bilateral renal cysts. POS: ROSANGELA
[2018-02-16] MEDS: Potassium Chloride 20 MEQ TAB PO PRN (09:16)
[2018-02-16 10:01] VITALS: BMI 27.7
[2018-02-16] MEDS: methylPREDNISolone Sod Succ 1 GM in Sodium Chloride 0.9% 250 ML 250 ML IVPB SCH (10:25)
--- NOTE | 2018-02-16 10:59 | PDOC.PN ---
- Subjective Encounter Start Date: 02/16/18 Encounter Start Time: 10:15 Subjective: is sitting in chair, no sob, is amb in room with assistance - Objective MAR Reviewed: Yes Vital Signs & Weight: Vital Signs (12 hours) Temp Pulse Resp BP BP Pulse Ox 02/16/18 08:00 98.6 F 88 18 98 02/16/18 07:40 98.6 F 88 18 90/57 L 98 02/16/18 04:00 98.1 F 86 18 102/59 L 98 02/16/18 00:15 99.2 F 85 18 102/64 98 Weight Admit Weight 159 lb Weight 182 lb 9 oz Most Recent Monitor Data Heart Rate from ECG 104 NIBP 109/69 NIBP BP-Mean 92 Respiration from ECG 28 SpO2 100 I&O: 02/15/18 02/16/18 02/17/18 06:59 06:59 06:59 Intake Total 4884 850 240 Output Total 1150 478 Balance 3734 372 240 Result Diagrams: 02/16/18 05:20 02/16/18 05:20 Additional Labs: Accuchecks 02/16/18 02/16/18 02/15/18 10:42 05:34 19:55 POC Glucose 294 H 229 H 321 H 02/15/18 02/15/18 16:48 11:02 POC Glucose 262 H 256 H Phys Exam - Physical Examination HEENT: PERRLA, sclera anicteric Neck: no JVD, supple Respiratory: no wheezing, no rales Cardiovascular: RRR, no significant murmur Gastrointestinal: soft, non-tender, positive bowel sounds Musculoskeletal: pulses present, edema present Neurological: non-focal, moves all 4 limbs Psychiatric: normal affect, A&O x 3 Dx/Plan (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 hemophagocytic lymphohistiocytosis (3) Hypotension Status: Acute Qualifiers: Hypotension type: unspecified hypotension type Qualified Code(s): I95.9 - Hypotension, unspecified (4) Inflammatory arthropathy Code(s): M19.90 - UNSPECIFIED OSTEOARTHRITIS, UNSPECIFIED SITE Status: Chronic Comment: has sero -ve RA, on chronic methotrexate IM and prednisone (5) UTI (urinary tract infection) Status: Acute Qualifiers: Urinary tract infection type: acute cystitis Hematuria presence: without hematuria Qualified Code(s): N30.00 - Acute cystitis without hematuria (6) Cervical myelopathy Code(s): G95.9 - DISEASE OF SPINAL CORD, UNSPECIFIED Status: Chronic (7) DVT (deep venous thrombosis) Status: Chronic Qualifiers: DVT location: lower extremity Chronicity: acute Laterality: left (8) Diabetes mellitus type 2 in nonobese Code(s): E11.9 - TYPE 2 DIABETES MELLITUS WITHOUT COMPLICATIONS Status: Chronic (9) HLD (hyperlipidemia) Code(s): E78.5 - HYPERLIPIDEMIA, UNSPECIFIED Status: Chronic Qualifiers: Hyperlipidemia type: unspecified Qualified Code(s): E78.5 - Hyperlipidemia , unspecified (10) Chronic anemia Code(s): D64.9 - ANEMIA, UNSPECIFIED Status: Chronic (11) Elevated ferritin level Code(s): R79.89 - OTHER SPECIFIED ABNORMAL FINDINGS OF BLOOD CHEMISTRY Status : Acute Comment: [id number] - Plan multiple w/u underway to reach at a diagnosis for atypical symptoms, steroi -: -d dependent hypotension, high ferritin, hyperthermia, oligoarticular joint -: pains etc. and are helping arrive at a possible etiolog -: is on solumedrol 1g iv 2/3 dose today, then taper. Diflucan, off zosyn -: on xarelto for dvt, lipitor and zetia. wbc is down to 18k this am * . transfuse if Hb drops to less than 7g. Has signs of vol overload, gentle diuresis if his BP permits ac hep panel is -ve, rpr is -ve. Usg abd was for to check splenomegaly, will d/w radiologist. Heme Onc opinion. To ambulate as tolerated. Anakinra per rheumatology advice. Review of Systems - Medications/Allergies Allergies/Adverse Reactions: Allergies Allergy/AdvReac Type Severity Reaction Status Date / Time No Known Drug Allergies Allergy Verified 10/18/15 02:31 Medications: Current Medications Acetaminophen (Tylenol Elixir) 650 mg PO Q6H PRN PRN Reason: Fever > 101 or Mild Pain Last Admin: 02/09/18 11:54 Dose: 650 mg Acetaminophen (Tylenol) 650 mg PO Q6H PRN PRN Reason: Pain Last Admin: 02/12/18 21:02 Dose: 650 mg Acetaminophen (Tylenol) 650 mg [place] Q4H PRN PRN Reason: FEVER > 100.4 Atorvastatin Calcium (Lipitor) 40 mg PO HS [facility] Last Admin: 02/15/18 21:43 Dose: 40 mg Cyclobenzaprine HCl (Flexeril) 10 mg PO BIDPRN PRN PRN Reason: Muscle Spasm Last Admin: 02/13/18 20:25 Dose: 10 mg Dextrose/Water (Dextrose 50%) 25 gm SLOW IVP PRN PRN PRN Reason: Hypoglycemia Last Admin: 02/14/18 10:44 Dose: 25 gm Ezetimibe (Zetia) 10 mg PO DAILY [facility] Last Admin: 02/16/18 08:18 Dose: 10 mg Famotidine (Pepcid) 20 mg PO BID [facility] Last Admin: 02/16/18 08:18 Dose: 20 mg Fluconazole (Diflucan) 150 mg PO 1800 [facility] Last Admin: 02/15/18 17:30 Dose: 150 mg Glucagon (Glucagon) 1 mg IM PRN PRN PRN Reason: Hypoglycemia Dextrose/Water (D5w) 1,000 mls @ 0 mls/hr IV .Q0M PRN; As Directed PRN Reason: Hypoglycemia Last Admin: 02/14/18 07:49 Dose: 1,000 mls Potassium Chloride 40 meq/ (Sodium Chloride) 270 mls @ 135 mls/hr IVPB ASDIR PRN PRN Reason: FOR SERUM K+ 2.5 - 3.5 Potassium Chloride 40 meq/ (Device) 100 mls @ 50 mls/hr IVPB ASDIR PRN PRN Reason: FOR SERUM K+ 2.5 - 3.5 Magnesium Sulfate 1 gm/ Sodium (Chloride) 102 mls @ 102 mls/hr IV PRN PRN PRN Reason: MAG LEVEL 1.4 - 2.0 Magnesium Sulfate 2 gm/ Device 100 mls @ 100 mls/hr IVPB ASDIR PRN PRN Reason: MAGNESIUM < 1.4 Potassium Phosphate 9 mmol/ (Sodium Chloride) 103 mls @ 25.75 mls/hr IVPB ASDIR PRN PRN Reason: Phosphate 1.0-1.8 Potassium Phosphate 12 mmol/ (Sodium Chloride) 254 mls @ 63.5 mls/hr IV ASDIR PRN PRN Reason: Serum phosphate 0.5-0.9 Potassium Phosphate 15 mmol/ (Sodium Chloride) 255 mls @ 63.75 mls/hr IV ASDIR PRN PRN Reason: Serum Phos < 0.5 Methylprednisolone Sodium Succinate 1 gm/ Sodium Chloride 266 mls @ 266 mls/hr IVPB DAILY [facility] Stop: 02/17/18 09:59 Last Admin: 02/16/18 10:25 Dose: 266 mls Insulin Human Lispro (Humalog) 0 units SC .MILD SLIDING SCALE PRN PRN Reason: Mild Correctional Scale Last Admin: 02/15/18 21:49 Dose: 5 unit Insulin Human Lispro (Humalog) [address] [facility] Last Admin: 02/16/18 08:17 Dose: 5 unit Magnesium Oxide (Magnesium Oxide) 400 mg PO BIDPRN PRN PRN Reason: FOR SERUM MAG 1.4 - 2.0 Magnesium Oxide (Magnesium Oxide) 800 mg PO PRN PRN PRN Reason: FOR SERUM MAG < 1.4 Methylprednisolone Sodium Succinate (Solu-Medrol) 60 mg IVP Q6HR [facility] Miscellaneous Medication (Phos-Nak) 1 pkt PO TIDPRN PRN PRN Reason: FOR PHOS LEVEL 1.0 - 1.8 Miscellaneous Medication (Phos-Nak) 2 pkt PO TIDPRN PRN PRN Reason: FOR PHOS LEVEL 0.5 - 1.0 Multivitamins (Theragran) 1 tab PO DAILY [facility] Last Admin: 02/16/18 08:18 Dose: 1 tab Ccu Electrolyte (Replacement Protocol) 0 each FS PRN PRN PRN Reason: FOR ELECTROLYTE REPLACEMENT Anakinra 100mg 1 each SC DAILY [facility] Potassium Chloride (K-Dur) 40 meq PO ASDIR PRN PRN Reason: FOR SERUM K+ 2.5 - 3.5 Last Admin: 02/16/18 09:16 Dose: 40 meq Potassium Chloride (Klor-Con) 40 meq PER TUBE ASDIR PRN PRN Reason: FOR SERUM K+ 2.5-3.5 Rivaroxaban (Xarelto) 20 mg PO QAM-[facility] Last Admin: 02/16/18 08:18 Dose: 20 mg Sodium Chloride (Flush - Normal Saline) 10 ml IVF Q12HR [facility] Last Admin: 02/16/18 08:18 Dose: 10 ml Sodium Chloride (Flush - Normal Saline) 10 ml IVF PRN PRN PRN Reason: Saline Flush Last Admin: 02/16/18 03:13 Dose: 10 ml Tramadol HCl (Ultram) 50 mg PO TIDPRN PRN PRN Reason: Pain Last Admin: 02/13/18 20:18 Dose: 50 mg
[2018-02-16] MEDS ORDERED: Furosemide 20 MG/2 ML VIAL SLOW IVP SCH (11:15)
[2018-02-16] MEDS: HumaLOG 300 UNITS/3 ML VIAL SC PRN ×3 (11:26→20:30)
[2018-02-16] MEDS: Fluconazole 100 MG TAB PO SCH (17:10)
[2018-02-16] MEDS: Atorvastatin Calcium 20 MG TAB PO SCH (20:15)
[2018-02-17 05:16] LABS: Varicella Zoster IgG ABS Greater than 4000 index (Immune >165)
[2018-02-17] MEDS: HumaLOG 300 UNITS/3 ML VIAL SC PRN ×3 (05:46→23:13)
[2018-02-17 06:07] LABS: Anion Gap 11 mmol/L (10-20); BUN (Urea Nitrogen) 26 mg/dL (8.4-25.7); Calc. Creatinine Clearance 87 mL/min (70-130); Carbon Dioxide 25 mmol/L (22-29); Chloride 107 mmol/L (98-107); Estimated GFR-MDRD 83; Glucose 310 mg/dL (70-105); Potassium 3.2 mmol/L (3.5-5.1); Sodium 140 mmol/L (136-145)
[2018-02-17 06:33] LABS: Hemoglobin 7.3 g/dL (14.0-18.0); Mean Corpuscular HGB CONC 31.7 g/dL (32.0-36.0); Mean Corpuscular Hemoglobin 27.7 pg (27.0-31.0); Mean Corpuscular Volume 87.5 fL (78.0-98.0); Mean Platelet Volume 10.6 fL (7.4-10.4); Platelet Count 140 thou/uL (130-400); RBC Distribution Width 20.8 % (11.5-14.5); Red Blood Cell (RBC) Count 2.64 mill/uL (4.70-6.10); White Blood Cell (WBC) Count 19.1 thou/uL (4.8-10.8)
[2018-02-17 06:34] LABS: Band 18 % (5-11); Lymphocytes 43 % (21-51); MDiff Complete? YES; Metamyelocyte 2 % (0-0); Monocytes 2 % (0-10); Neutrophil 35 % (42-75); Nucleated RBC 2 % (0); PLT Morphology Comment Appears Adequate
[2018-02-17] MEDS: HumaLOG 300 UNITS/3 ML VIAL SC SCH ×3 (09:35→17:28)
[2018-02-17] MEDS: Famotidine 20 MG TAB PO SCH ×2 (09:36→22:03)
[2018-02-17] MEDS: Multivit, Therapeutic 1 TAB PO SCH (09:36)
[2018-02-17] MEDS: Ezetimibe 10 MG TAB PO SCH (09:36)
[2018-02-17] MEDS: Rivaroxaban 10 MG TAB PO SCH (09:36)
[2018-02-17] MEDS: methylPREDNISolone Sod Succ 1 GM in Sodium Chloride 0.9% 250 ML 250 ML IVPB SCH (11:17)
[2018-02-17] MEDS ORDERED: Furosemide 20 MG/2 ML VIAL SLOW IVP SCH (13:30)
[2018-02-17] MEDS ORDERED: Insulin Glargine 10 UNITS in Pre-Filled Syringe 1 EACH SC SCH (13:30)
--- NOTE | 2018-02-17 13:31 | PRG ---
DATE OF SERVICE: 02/17/2018 SERVICE: Pulmonary Medicine. INTERVAL HISTORY: The patient is doing fine from a respiratory standpoint. He indicates that his st rength is improved dramatically. He has less swelling in his hands and less discomforts. Otherwise, there has been no interval change to his condition. OBJECTIVE: VITAL SIGNS: Afebrile, pulse 82, blood pressure 118/66, respirations 15, saturation 98% on room air. GENERAL: The patient is awake, alert, no apparent distress. LUNGS: Decent air entry. No prolonged expiratory phase or wheezing is appreciated. HEART: Normal rate, regular. ABDOMEN: Soft, nontender, nondistended. Bowel sounds are positive. MUSCULOSKELETAL: No cyanosis or clubbing. There is 2+ pitting in the bilateral lower extremities. NEUROLOGIC: Grossly nonfocal. LABORATORY DATA: WBC 19.1, hemoglobin 7.3 and stable, platelets 140,000. Creatinine 1.1. Basic met abolic profile is otherwise unremarkable except for potassium of 3.2. Blood sugars ranged from 321-3 58. Immunology studies are essentially unremarkable. IMAGIN. Ultrasound of the abdomen demonstrates bilateral renal cysts, but otherwise no acute issues. 2. Echocardiogram demonstrates 55%-60% ejection fraction with an RVSP of 37. There is moderate mitr al regurgitation. Normal diastolic function is present. ASSESSMENT: 1. Urinary tract infection, status post full course of antibiotic. 2. Fever of unknown origin. 3. Adult onset Still's disease, suspected. 4. Hypokalemia. 5. Anemia. PLAN: We will continue replacing potassium. At this point, he is stabilized and can be transitioned out of the ICU to the medical unit. Pulmonary Critical Care will continue to follow along for the t milvia being.
[2018-02-17] MEDS: Potassium Chloride 20 MEQ TAB PO SCH ×2 (14:21→17:27)
[2018-02-17] MEDS: Fluconazole 100 MG TAB PO SCH (17:28)
--- NOTE | 2018-02-17 19:36 | PDOC.PN ---
- Subjective Encounter Start Date: 02/17/18 Encounter Start Time: 19:35 Subjective: f/u for suspected Still's disease on Solumedrol with polyarticular -: inflammation and hypotension. Oveall feels better and moving easier. -: No recurrent fever. - Objective MAR Reviewed: Yes Vital Signs & Weight: Vital Signs (12 hours) Temp Pulse Resp BP Pulse Ox 02/17/18 16:16 99 02/17/18 16:00 97.6 F 76 16 128/82 100 02/17/18 15:40 98.0 F 20 107/59 L 02/17/18 11:20 97.9 F 82 118/66 02/17/18 08:00 97.3 F L 77 15 02/17/18 07:36 97.3 F L 77 15 121/60 98 Weight Admit Weight 159 lb Weight 182 lb 9 oz Most Recent Monitor Data Heart Rate from ECG 104 NIBP 109/69 NIBP BP-Mean 92 Respiration from ECG 28 SpO2 100 I&O: 02/16/18 02/17/18 02/18/18 06:59 06:59 06:59 Intake Total 850 490 240 Output Total 478 2975 Balance 372 -0522 240 Result Diagrams: 02/17/18 05:46 02/17/18 05:46 Additional Labs: Accuchecks 02/17/18 02/17/18 02/17/18 16:32 10:29 05:37 POC Glucose 226 H 358 H 321 H 02/16/18 20:15 POC Glucose 324 H Microbiology 02/14/18 10:01 Stool Stool Occult Blood (APRIL) - Final 02/14/18 09:49 Urine voided Urine Culture - Final Yeast species 02/15/18 11:45 Central Line - Right Common Femoral Vein Blood Culture - Preliminary NO GROWTH AT 48 HOURS 02/14/18 09:00 Venous blood - Left Arm Blood Culture - Preliminary NO GROWTH AT 48 HOURS Laboratory Tests 02/15/18 02/15/18 02/15/18 03:37 03:37 11:45 WBC 23.2 H Hgb 7.8 L Neutrophils % (Manual) 50 Band Neuts % (Manual) 31 H Potassium 2.9 L* 2.9 L* 02/16/18 02/16/18 02/17/18 05:20 05:20 05:46 WBC 18.4 H Hgb 7.1 L Neutrophils % (Manual) 28 L 35 L Band Neuts % (Manual) 23 H 18 H Potassium 3.2 L Radiology Reviewed by me: Yes (2D echo -EF 55%, mod TR) Phys Exam - Physical Examination Constitutional: NAD HEENT: PERRLA, sclera anicteric, oral pharynx no lesions Neck: no nodes, no JVD, supple, full ROM Respiratory: no wheezing, no rales, no rhonchi, clear to auscultation bilateral II/ HODAN Cardiovascular: RRR, no rub, gallop Gastrointestinal: soft, non-tender, no distention, positive bowel sounds Musculoskeletal: pulses present, edema present Neurological: non-focal, normal sensation, moves all 4 limbs Psychiatric: normal affect, A&O x 3 Skin: no rash, normal turgor, cap refill <2 seconds Dx/Plan (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 - ADULT-ONSET STILL'S DISEASE Status: Suspected Comment: Continue Solumedrol 60mg IV q6h, Anakinra 100mcg daily (2) Chronic anemia Code(s): D64.9 - ANEMIA, UNSPECIFIED Status: Chronic Comment: Serial H/H monitoring, near level of transfusion (3) UTI (urinary tract infection) Status: Acute Qualifiers: Urinary tract infection type: acute cystitis Hematuria presence: without hematuria Qualified Code(s): N30.00 - Acute cystitis without hematuria Comment: Diflucan 100mg po daily (4) Cervical myelopathy Code(s): G95.9 - DISEASE OF SPINAL CORD, UNSPECIFIED Status: Chronic Comment : Hx of myelopathy, supportive mgmt (5) DVT (deep venous thrombosis) Status: Chronic Qualifiers: DVT location: lower extremity Chronicity: acute Laterality: left Comment: Xarelto 20mg daily (6) Diabetes mellitus type 2 in nonobese Code(s): E11.9 - TYPE 2 DIABETES MELLITUS WITHOUT COMPLICATIONS Status: Chronic Comment: Labile due to steroids, Lantus 10u sc qam, serial accuchecks , ISS (7) Inflammatory arthropathy Code(s): M19.90 - UNSPECIFIED OSTEOARTHRITIS, UNSPECIFIED SITE Status: Chronic Comment: has sero -ve RA, on chronic methotrexate IM and prednisone, currently on Solumedrol - Plan out of bed/ambulate, DVT proph w/SCDs Stable currently -: Continue Solumedrol 60mg IV q6h -: Anakinra 100mcg sc daily -: Nutritional supplementation with Glucerna -: AM lab: BMP, CBC * .
[2018-02-17] MEDS: Atorvastatin Calcium 20 MG TAB PO SCH (22:04)
[2018-02-18 05:20] LABS: Anion Gap 14 mmol/L (10-20); BUN (Urea Nitrogen) 26 mg/dL (8.4-25.7); Calc. Creatinine Clearance 90 mL/min (70-130); Calcium 8.3 mg/dL (7.8-10.44); Carbon Dioxide 26 mmol/L (22-29); Chloride 104 mmol/L (98-107); Estimated GFR-MDRD 87; Glucose 318 mg/dL (70-105); Potassium 3.5 mmol/L (3.5-5.1); Sodium 140 mmol/L (136-145)
[2018-02-18 05:34] LABS: Band 13 % (5-11); Lymphocytes 61 % (21-51); MDiff Complete? YES; Mean Corpuscular HGB CONC 31.2 g/dL (32.0-36.0); Mean Corpuscular Hemoglobin 27.2 pg (27.0-31.0); Mean Corpuscular Volume 87.4 fL (78.0-98.0); Mean Platelet Volume 10.6 fL (7.4-10.4); Metamyelocyte 1 % (0-0); Monocytes 1 % (0-10); Neutrophil 24 % (42-75); Nucleated RBC 1 % (0); PLT Morphology Comment Appears Adequate; Platelet Count 142 thou/uL (130-400); RBC Distribution Width 20.6 % (11.5-14.5); Red Blood Cell (RBC) Count 2.94 mill/uL (4.70-6.10); White Blood Cell (WBC) Count 12.9 thou/uL (4.8-10.8)
[2018-02-18] MEDS: methylPREDNISolone Sod Succ/PF 125 MG/2 ML VIAL IVP SCH ×3 (05:36→17:48)
[2018-02-18] MEDS: traMADol HCl 50 MG TAB PO PRN (05:45)
[2018-02-18] MEDS: HumaLOG 300 UNITS/3 ML VIAL SC PRN ×3 (06:46→17:49)
[2018-02-18] MEDS: Ezetimibe 10 MG TAB PO SCH (08:41)
[2018-02-18] MEDS: Famotidine 20 MG TAB PO SCH ×2 (08:41→20:43)
[2018-02-18] MEDS: Rivaroxaban 10 MG TAB PO SCH (08:41)
[2018-02-18] MEDS: Multivit, Therapeutic 1 TAB PO SCH (08:41)
[2018-02-18] MEDS: HumaLOG 300 UNITS/3 ML VIAL SC SCH ×3 (08:41→17:48)
[2018-02-18] MEDS ORDERED: Furosemide 40 MG/4 ML VIAL SLOW IVP SCH (09:00)
[2018-02-18] MEDS ORDERED: Insulin Glargine 10 UNITS in Pre-Filled Syringe 1 EACH SC SCH (09:00)
--- NOTE | 2018-02-18 13:02 | PDOC.PN ---
- Subjective Encounter Start Date: 02/18/18 Encounter Start Time: 11:00 Subjective: sitting in chair, feels better -: is amb in room -: no trouble breathing/dizziness - Objective MAR Reviewed: Yes Vital Signs & Weight: Vital Signs (12 hours) Temp Pulse Resp BP BP Pulse Ox 02/18/18 10:59 97.8 F 75 16 115/75 100 02/18/18 08:00 97.9 F 80 16 98 02/18/18 07:53 98 02/18/18 07:17 97.9 F 80 16 111/61 02/18/18 04:15 97.8 F 78 18 115/66 100 Weight Admit Weight 159 lb Weight 182 lb 9 oz Most Recent Monitor Data Heart Rate from ECG 104 NIBP 109/69 NIBP BP-Mean 92 Respiration from ECG 28 SpO2 100 I&O: 02/17/18 02/18/18 02/19/18 06:59 06:59 06:59 Intake Total 490 240 240 Output Total 2975 800 Balance -2485 -560 240 Result Diagrams: 02/18/18 04:43 02/18/18 04:43 Additional Labs: Accuchecks 02/18/18 02/18/18 02/17/18 11:06 05:03 20:25 POC Glucose 356 H 287 H 352 H 02/17/18 16:32 POC Glucose 226 H Phys Exam - Physical Examination HEENT: PERRLA, moist MMs Neck: no JVD, supple Respiratory: no wheezing, no rales Cardiovascular: RRR, no significant murmur Gastrointestinal: soft, non-tender, positive bowel sounds Musculoskeletal: pulses present, edema present Neurological: non-focal, moves all 4 limbs Psychiatric: normal affect, A&O x 3 Dx/Plan (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 hemophagocytic lymphohistiocytosis (3) Hypotension Status: Acute Qualifiers: Hypotension type: unspecified hypotension type Qualified Code(s): I95.9 - Hypotension, unspecified Comment: stable on steroids (4) Inflammatory arthropathy Code(s): M19.90 - UNSPECIFIED OSTEOARTHRITIS, UNSPECIFIED SITE Status: Chronic Comment: has sero -ve RA, on chronic methotrexate IM and prednisone, currently on Solumedrol (5) UTI (urinary tract infection) Status: Acute Qualifiers: Urinary tract infection type: acute cystitis Hematuria presence: without hematuria Qualified Code(s): N30.00 - Acute cystitis without hematuria Comment: Diflucan 100mg po daily (6) Cervical myelopathy Code(s): G95.9 - DISEASE OF SPINAL CORD, UNSPECIFIED Status: Chronic Comment : Hx of myelopathy, supportive mgmt (7) DVT (deep venous thrombosis) Status: Chronic Qualifiers: DVT location: lower extremity Chronicity: acute Laterality: left Comment: Xarelto 20mg daily (8) Diabetes mellitus type 2 in nonobese Code(s): E11.9 - TYPE 2 DIABETES MELLITUS WITHOUT COMPLICATIONS Status: Chronic Comment: Labile due to steroids, Lantus 10u sc qam, serial accuchecks , ISS (9) HLD (hyperlipidemia) Code(s): E78.5 - HYPERLIPIDEMIA, UNSPECIFIED Status: Chronic Qualifiers: Hyperlipidemia type: unspecified Qualified Code(s): E78.5 - Hyperlipidemia , unspecified (10) Chronic anemia Code(s): D64.9 - ANEMIA, UNSPECIFIED Status: Chronic (11) Elevated ferritin level Code(s): R79.89 - OTHER SPECIFIED ABNORMAL FINDINGS OF BLOOD CHEMISTRY Status : Acute Comment: [id number] - Plan is on solumedrol 60mg q6h, anakinra -: lasix prn -: got 3 doses of 1 g solumedrol prior to current dose -: dm is labile sec to above, will increase lantus dose if it remains high -: transition to oral steroids per rheumatology advice * . dc plan per rheumatology advice Review of Systems - Medications/Allergies Allergies/Adverse Reactions: Allergies Allergy/AdvReac Type Severity Reaction Status Date / Time No Known Drug Allergies Allergy Verified 10/18/15 02:31 Medications: Current Medications Acetaminophen (Tylenol Elixir) 650 mg PO Q6H PRN PRN Reason: Fever > 101 or Mild Pain Last Admin: 02/09/18 11:54 Dose: 650 mg Acetaminophen (Tylenol) 650 mg PO Q6H PRN PRN Reason: Pain Last Admin: 02/12/18 21:02 Dose: 650 mg Acetaminophen (Tylenol) 650 mg IN Q4H PRN PRN Reason: FEVER > 100.4 Anakinra (Kineret) 100 mg SQ 1800 [facility] Atorvastatin Calcium (Lipitor) 40 mg PO HS [facility] Last Admin: 02/17/18 22:04 Dose: 40 mg Cyclobenzaprine HCl (Flexeril) 10 mg PO BIDPRN PRN PRN Reason: Muscle Spasm Last Admin: 02/13/18 20:25 Dose: 10 mg Dextrose/Water (Dextrose 50%) 25 gm SLOW IVP PRN PRN PRN Reason: Hypoglycemia Last Admin: 02/14/18 10:44 Dose: 25 gm Ezetimibe (Zetia) 10 mg PO DAILY [facility] Last Admin: 02/18/18 08:41 Dose: 10 mg Famotidine (Pepcid) 20 mg PO BID [facility] Last Admin: 02/18/18 08:41 Dose: 20 mg Fluconazole (Diflucan) 150 mg PO 1800 [facility] Last Admin: 02/17/18 17:28 Dose: 150 mg Glucagon (Glucagon) 1 mg IM PRN PRN PRN Reason: Hypoglycemia Dextrose/Water (D5w) 1,000 mls @ 0 mls/hr IV .Q0M PRN; As Directed PRN Reason: Hypoglycemia Last Admin: 02/14/18 07:49 Dose: 1,000 mls Insulin Glargine 10 units/ (Miscellaneous Medication) 0.1 mls @ 0 mls/hr SC QAM [facility] Last Admin: 02/18/18 08:42 Dose: 0.1 mls Insulin Human Lispro (Humalog) 0 units SC .MILD SLIDING SCALE PRN PRN Reason: Mild Correctional Scale Last Admin: 02/18/18 06:46 Dose: 4 unit Insulin Human Lispro (Humalog) 5 units SC AC [facility] Last Admin: 02/18/18 08:41 Dose: 5 unit Methylprednisolone Sodium Succinate (Solu-Medrol) 60 mg IVP Q6HR [facility] Last Admin: 02/18/18 05:36 Dose: 60 mg Multivitamins (Theragran) 1 tab PO DAILY [facility] Last Admin: 02/18/18 08:41 Dose: 1 tab Rivaroxaban (Xarelto) 20 mg PO QAM-[facility] Last Admin: 02/18/18 08:41 Dose: 20 mg Sodium Chloride (Flush - Normal Saline) 10 ml IVF Q12HR [facility] Last Admin: 02/18/18 08:42 Dose: 10 ml Sodium Chloride (Flush - Normal Saline) 10 ml IVF PRN PRN PRN Reason: Saline Flush Last Admin: 02/16/18 03:13 Dose: 10 ml Tramadol HCl (Ultram) 50 mg PO TIDPRN PRN PRN Reason: Pain Last Admin: 02/18/18 05:45 Dose: 50 mg
--- NOTE | 2018-02-18 14:54 | PRG ---
DATE OF SERVICE: 02/18/2018 SUBJECTIVE: Mr. Knight denies any pain or difficulty breathing. OBJECTIVE: VITAL SIGNS: His sats are 90% on room air, temperature is 97, pulse 72, respirations 16. CHEST: Decreased breath sounds, no wheezing. CARDIAC: Normal S1, S2, no gallops. ABDOMEN: Soft. LABORATORY DATA: His electrolytes are normal. White count 12,000, H and H 8 and 25, platelet count is normal. IMPRESSION: 1. Arthritis, rheumatoid. 2. Urinary tract infection, Escherichia coli. PLAN: Continue antibiotics. Continue supportive care, PT. We will follow.
[2018-02-18] MEDS: ANAKINRA SQ SCH (17:48)
[2018-02-18] MEDS: Fluconazole 100 MG TAB PO SCH (17:48)
[2018-02-18] MEDS: Atorvastatin Calcium 20 MG TAB PO SCH (20:43)
[2018-02-18] MEDS ORDERED: Insulin Glargine 15 UNITS in Pre-Filled Syringe 1 EACH SC SCH (22:08)
[2018-02-19] MEDS: HumaLOG 300 UNITS/3 ML VIAL SC PRN ×4 (04:48→21:58)
[2018-02-19 05:48] LABS: Anion Gap 13 mmol/L (10-20); BUN (Urea Nitrogen) 31 mg/dL (8.4-25.7); Calc. Creatinine Clearance 75 mL/min (70-130); Carbon Dioxide 30 mmol/L (22-29); Chloride 99 mmol/L (98-107); Estimated GFR-MDRD 71; Glucose 439 mg/dL (70-105); Potassium 3.2 mmol/L (3.5-5.1); Sodium 139 mmol/L (136-145)
[2018-02-19 06:21] LABS: Band 6 % (5-11); Hemoglobin 7.4 g/dL (14.0-18.0); Lymphocytes 44 % (21-51); MDiff Complete? YES; Mean Corpuscular HGB CONC 30.4 g/dL (32.0-36.0); Mean Corpuscular Volume 88.8 fL (78.0-98.0); Mean Platelet Volume 11.6 fL (7.4-10.4); Metamyelocyte 1 % (0-0); Monocytes 10 % (0-10); Neutrophil 39 % (42-75); Nucleated RBC 4 % (0); PLT Morphology Comment Appears Adequate; Platelet Count 156 thou/uL (130-400); RBC Distribution Width 21.3 % (11.5-14.5); Red Blood Cell (RBC) Count 2.76 mill/uL (4.70-6.10); White Blood Cell (WBC) Count 9.1 thou/uL (4.8-10.8)
[2018-02-19] MEDS: Insulin Glargine 20 UNITS in Pre-Filled Syringe 1 EACH SC SCH ×2 (08:17→22:03)
[2018-02-19] MEDS: Ezetimibe 10 MG TAB PO SCH (08:18)
[2018-02-19] MEDS: Rivaroxaban 10 MG TAB PO SCH (08:18)
[2018-02-19] MEDS: HumaLOG 300 UNITS/3 ML VIAL SC SCH ×3 (08:18→18:25)
[2018-02-19] MEDS: Furosemide 40 MG TAB PO SCH (08:18)
[2018-02-19] MEDS: Famotidine 20 MG TAB PO SCH ×2 (08:18→21:57)
[2018-02-19] MEDS: Multivit, Therapeutic 1 TAB PO SCH (08:18)
--- NOTE | 2018-02-19 14:34 | PRG ---
DATE OF SERVICE: 02/19/2018 SUBJECTIVE: This morning, he is better. He would like to go home. OBJECTIVE: VITAL SIGNS: His sats are 100% on room air, respiration rate 18, temperature 97, blood pressure 120/ 65. CHEST: Reveals no wheezing or crackles. CARDIAC: Normal S1, S2, no gallops. ABDOMEN: Soft, no masses. LABORATORY: Creatinine 1.27, white count 9000, H and H 7 and 24, platelet count . IMPRESSION: Urinary tract infection, rheumatoid arthritis. PLAN: Patient can probably go home on oral antibiotics. I am going to discontinue his IV Medrol, ta per his steroids.
--- NOTE | 2018-02-19 15:23 | PDOC.PN ---
- Subjective Encounter Start Date: 02/19/18 Encounter Start Time: 15:21 Mr. Knight was seen today in follow-up of suspected Still's disease. He says he feels fine and wants to go home. - Objective MAR Reviewed: Yes Vital Signs & Weight: Vital Signs (12 hours) Temp Pulse Resp BP Pulse Ox 02/19/18 11:58 97.8 F 81 18 126/68 100 02/19/18 08:00 97.8 F 73 18 133/65 100 02/19/18 07:24 97 Weight Admit Weight 159 lb Weight 164 lb 4 oz Most Recent Monitor Data Heart Rate from ECG 104 NIBP 109/69 NIBP BP-Mean 92 Respiration from ECG 28 SpO2 100 I&O: 02/18/18 02/19/18 02/20/18 06:59 06:59 06:59 Intake Total 240 660 240 Output Total 800 Balance -560 660 240 Result Diagrams: 02/19/18 05:05 02/19/18 05:05 Additional Labs: Accuchecks 02/19/18 02/19/18 02/18/18 11:59 02:59 21:44 POC Glucose 393 H 463 H 481 H 02/18/18 02/18/18 20:52 16:47 POC Glucose 462 H 379 H Phys Exam - Physical Examination HEENT: PERRLA, sclera anicteric Respiratory: no wheezing, no rales, no rhonchi, clear to auscultation bilateral Cardiovascular: RRR, no significant murmur, no rub Gastrointestinal: soft, non-tender, no distention, positive bowel sounds Musculoskeletal: edema present + synovial swelling of both hands, + extensive edema of both feet Dx/Plan (1) Personal history of DVT (deep vein thrombosis) Code(s): Z86.718 - PERSONAL HISTORY OF OTHER VENOUS THROMBOSIS AND EMBOLISM Status: Chronic Comment: Continue Xarelto. 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 He is suspected to have Still's Disease. He is currently on Solumedrol IV and Kineret SC. Will await further Rheumatology recommendations prior to discharging patient * DM-blood glucose is elevated- will increase scheduled insulin * Deconditioning- continue PT/OT * Hytpotension- blood pressure is stable
[2018-02-19] MEDS: Fluconazole 100 MG TAB PO SCH (18:25)
[2018-02-19] MEDS: ANAKINRA SQ SCH (18:26)
[2018-02-19] MEDS ORDERED: Insulin Glargine 30 UNITS in Pre-Filled Syringe 1 EACH SC SCH (21:00)
[2018-02-19] MEDS: Atorvastatin Calcium 20 MG TAB PO SCH (21:57)
[2018-02-20] MEDS: HumaLOG 300 UNITS/3 ML VIAL SC PRN ×3 (00:19→11:50)
[2018-02-20 04:35] LABS: #Lymphocytes 2.9 thou/uL (1.20-3.40); #Monocytes 0.7 thou/uL (0.11-0.59); %Basophils 0.2 % (0.0-1.0); %Lymphocytes 33.4 % (21.0-51.0); %Monocytes 8.2 % (0.0-10.0); %Neutrophils 58.1 % (42.0-75.0); Hemoglobin 7.8 g/dL (14.0-18.0); Mean Corpuscular HGB CONC 31.2 g/dL (32.0-36.0); Mean Corpuscular Hemoglobin 28.3 pg (27.0-31.0); Mean Corpuscular Volume 90.8 fL (78.0-98.0); Mean Platelet Volume 11.3 fL (7.4-10.4); Platelet Count 191 thou/uL (130-400); RBC Distribution Width 21.9 % (11.5-14.5); Red Blood Cell (RBC) Count 2.75 mill/uL (4.70-6.10); White Blood Cell (WBC) Count 8.6 thou/uL (4.8-10.8)
[2018-02-20 04:47] LABS: Anion Gap 13 mmol/L (10-20); BUN (Urea Nitrogen) 28 mg/dL (8.4-25.7); Calc. Creatinine Clearance 80 mL/min (70-130); Calcium 8.4 mg/dL (7.8-10.44); Carbon Dioxide 30 mmol/L (22-29); Chloride 99 mmol/L (98-107); Estimated GFR-MDRD 86; Glucose 210 mg/dL (70-105); Potassium 4.3 mmol/L (3.5-5.1); Sodium 138 mmol/L (136-145)
[2018-02-20] MEDS: Ezetimibe 10 MG TAB PO SCH (08:47)
[2018-02-20] MEDS: Rivaroxaban 10 MG TAB PO SCH (08:47)
[2018-02-20] MEDS: Famotidine 20 MG TAB PO SCH (08:47)
[2018-02-20] MEDS: Multivit, Therapeutic 1 TAB PO SCH (08:48)
[2018-02-20] MEDS: Furosemide 40 MG TAB PO SCH (08:48)
[2018-02-20] MEDS: HumaLOG 300 UNITS/3 ML VIAL SC SCH ×2 (08:48→11:50)
[2018-02-20] MEDS ORDERED: Insulin Glargine 30 UNITS in Pre-Filled Syringe 1 EACH SC SCH (09:00)
[2018-02-20] MEDS ORDERED: Furosemide 20 MG/2 ML VIAL SLOW IVP SCH (10:00)
--- NOTE | 2018-02-20 10:20 | PRG ---
DATE OF SERVICE: 02/20/2018 SERVICE: Pulmonary Medicine. INTERVAL HISTORY: The patient is doing fine from a respiratory standpoint. He is breathing comforta kulwant. His lower extremity swelling has improved, though he still has a little bit of edema. Otherwis e, there has been no interval change to his condition. PHYSICAL EXAMINATION: VITAL SIGNS: Afebrile, pulse 79, blood pressure 138/75, respirations 18, saturation 91% on room air. GENERAL: The patient is awake, alert, no apparent distress. LUNGS: Decent air entry. There is no prolonged expiratory phase. Minimal dependent crackles are pr esent. HEART: Normal rate, regular. ABDOMEN: Soft, nontender, nondistended. Bowel sounds are positive. MUSCULOSKELETAL: No cyanosis or clubbing. There is 2-3+ pitting in the bilateral lower extremities. NEUROLOGIC: Grossly nonfocal. LABORATORY DATA: WBC 8.6, hemoglobin 7.8, platelets 191,000. Creatinine 1.07. Basic metabolic prof ile is otherwise unremarkable except for bicarbonate of 30. ASSESSMENT: 1. Urinary tract infection, status post full course of antibiotic. 2. Adult-onset Still's disease, suspected. 3. Hypokalemia, resolved. 4. Anemia. DISCUSSION AND PLAN: The patient is doing fine from a purely respiratory perspective and can be cons idered for discharge from the hospital provided he has appropriate followup. Dr. Styles will resume care in the morning if the patient remains inhouse. I will give him a dose of Lasix tomorrow mornin g if he is still in the hospital.
--- NOTE | 2018-02-20 12:40 | PDOC.PN ---
- Subjective Encounter Start Date: 02/20/18 Encounter Start Time: 12:38 Mr. Knight was seen today in follow-up. He is anxious to go home. - Objective MAR Reviewed: Yes Vital Signs & Weight: Vital Signs (12 hours) Temp Pulse Resp BP Pulse Ox 02/20/18 08:00 97.3 F L 79 18 91 L 02/20/18 07:10 97.3 F L 79 18 138/75 90 L 02/20/18 02:25 100 Weight Admit Weight 159 lb Weight 160 lb 2 oz Most Recent Monitor Data Heart Rate from ECG 104 NIBP 109/69 NIBP BP-Mean 92 Respiration from ECG 28 SpO2 100 I&O: 02/19/18 02/20/18 02/21/18 06:59 06:59 06:59 Intake Total 660 420 Balance 660 420 Result Diagrams: 02/20/18 03:49 02/20/18 03:49 Additional Labs: Accuchecks 02/20/18 02/20/18 02/20/18 11:05 08:48 05:51 POC Glucose 393 H 338 H 285 H 02/20/18 02/20/18 02/19/18 03:12 00:19 19:50 POC Glucose 244 H 335 H 452 H 02/19/18 16:47 POC Glucose 424 H Phys Exam - Physical Examination HEENT: PERRLA Respiratory: no wheezing, no rales, no rhonchi, clear to auscultation bilateral Cardiovascular: RRR, no significant murmur, no rub Gastrointestinal: soft, non-tender, positive bowel sounds Musculoskeletal: edema present + swelling of the PIP joints of both hands Dx/Plan (1) Personal history of DVT (deep vein thrombosis) Code(s): Z86.718 - PERSONAL HISTORY OF OTHER VENOUS THROMBOSIS AND EMBOLISM Status: Chronic Comment: Continue Xarelto. 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 Noyola has recommended Predisone at 1mg/kg a day, and to continue Kineret. * He will appy for patient assistance through his office * PT- is recommending Home Health * He is stable for discharge home..
[2018-02-20 15:23] VITALS: BP 123/68; TEMP 97.8
[2018-02-21 12:15] LABS: Varicella Zoster IgM ABS Less than 0.91 index (0.00-0.90)
== END 2018-02-20 15:25 | disposition home or self-care (01) | DRG 871 ==
LOC: ERS 11:33 → IMCU/EMU 12:55 → T4-A 02-07 09:50 → IMCU/EMU 02-09 12:06 → CCU 02-09 17:41 → 2NO 02-11 16:33 → CCU 02-14 08:10 → IMCU/EMU 02-15 15:57 → T4-B 02-17 15:41
PROVIDERS: ADMIT Internal Medicine; ATTEND Internal Medicine
DX: A41.51 Sepsis due to Escherichia coli [E. coli] (principal); R65.21 Severe sepsis with septic shock; J96.01 Acute respiratory failure with hypoxia; J18.9 Pneumonia, unspecified organism; N39.0 Urinary tract infection, site not specified; E87.2 Acidosis; I50.22 Chronic systolic (congestive) heart failure; I11.0 Hypertensive heart disease with heart failure; M06.1 Adult-onset Still's disease; E78.5 Hyperlipidemia, unspecified; E11.9 Type 2 diabetes mellitus without complications; M06.9 Rheumatoid arthritis, unspecified; E87.6 Hypokalemia; D64.9 Anemia, unspecified; M25.462 Effusion, left knee; Z86.718 Personal history of other venous thrombosis and embolism; Z87.440 Personal history of urinary (tract) infections; Z79.01 Long term (current) use of anticoagulants; Z79.4 Long term (current) use of insulin; Z79.52 Long term (current) use of systemic steroids; Z79.899 Other long term (current) drug therapy; Z96.612 Presence of left artificial shoulder joint
CPT/HCPCS: 36415; 36416; 51702; 71045; 71046; 74176; 76700; 76770; 80048; 80053; 80074; 80202; 80400; 81001; 81003; 81015; 82274; 82550; 82553; 82595; 82607; 82728; 82746; 82805; 83520; 83540; 83550; 83605; 83615; 83735; 84100; 84484; 85025; 85060; 85379; 85610; 85652; 85730; 86140; 86160; 86200; 86235; 86256; 86480; 86593; 86780; 86787; 86880; 87040; 87070; 87077; 87086; 87186; 87205; 87324; 87449; 89051; 89060; 90471; 90732; 93005; 93010; 93306; 96361; 96365; 99292; A4216; G0009; G8978-GP-CJ; G8979-GP-CJ; G8980-GP-CJ; G8987-GO-CI; G8988-GO-CI; G8989-GO-CI; J0131; J0696; J0834; J1100; J1720; J1940; J2001; J2185; J2543; J2920; J2930; J3370; J3475; J7050; J7506; P9047

== ENCOUNTER 2018-02-24 06:35 | Emergency (ER) | payer MEDICARE ==
[2018-02-24 07:21] LABS: #Eosinphils 0.1 thou/uL (0.0-0.7); #Lymphocytes 2.4 thou/uL (1.20-3.40); #Monocytes 0.9 thou/uL (0.11-0.59); #Neutrophils 6.5 thou/uL (1.40-6.50); %Basophils 0.2 % (0.0-1.0); %Eosinophils 0.6 % (0.0-10.0); %Lymphocytes 24.2 % (21.0-51.0); %Monocytes 9.2 % (0.0-10.0); %Neutrophils 65.8 % (42.0-75.0); Hemoglobin 8.7 g/dL (14.0-18.0); Mean Corpuscular HGB CONC 31.1 g/dL (32.0-36.0); Mean Corpuscular Hemoglobin 28.4 pg (27.0-31.0); Mean Corpuscular Volume 91.5 fL (78.0-98.0); Mean Platelet Volume 9.1 fL (7.4-10.4); Platelet Count 274 thou/uL (130-400); RBC Distribution Width 21.4 % (11.5-14.5); Red Blood Cell (RBC) Count 3.06 mill/uL (4.70-6.10)
[2018-02-24 07:39] LABS: ALT (SGPT) 70 U/L (8-55); AST (SGOT) 21 U/L (5-34); Albumin 3.2 g/dL (3.5-5.0); Alkaline Phosphatase 129 U/L (40-150); Anion Gap 12 mmol/L (10-20); BUN (Urea Nitrogen) 15 mg/dL (8.4-25.7); Bilirubin, Total 0.8 mg/dL (0.2-1.2); Calc. Creatinine Clearance 0 mL/min (70-130); Calcium 8.8 mg/dL (7.8-10.44); Carbon Dioxide 29 mmol/L (22-29); Chloride 101 mmol/L (98-107); Estimated GFR-MDRD Greater than 90; Globulin 3.5 g/dL (2.4-3.5); Glucose 288 mg/dL (70-105); Protein, Total 6.7 g/dL (6.0-8.3); Sodium 138 mmol/L (136-145)
[2018-02-24 07:44] LABS: CKMB 2.1 ng/mL (0-6.6); Troponin I Less than 0.010 ng/mL (< 0.028)
[2018-02-24 07:45] LABS: Bilirubin Negative (Negative); Blood, Urine Negative (Negative); Clarity CLEAR (Clear); Glucose, Urine (Dipstick) 500 mg/dL (Negative); Leukocyte Negative (Negative); Nitrite Negative (Negative); Protein, Urine (Dipstick) 30 mg/dL (Neg-Trace); Specific Gravity, Urine 1.027 (1.002-1.036); Urobilinogen 0.2 mg/dL (0.2-1.0); pH, Urine 7.5 (5.0-9.0)
[2018-02-24 07:46] LABS: Bacteria/HPF None Seen HPF (None Seen); Hyaline Casts/LPF 0-3 HYALINE CAST LPF (0-3 Hyaline); Pathc Cast-AUWi Flag 0.14 (0-2.49); Squamous Epithelial 0-3 HPF (0-3)
--- NOTE | 2018-02-24 07:56 | RAD ---
PORTABLE CHEST 1 VIEW: Date: 02/24/18 Time: 0654 hours HISTORY: Weakness. FINDINGS: Comparison made with exam of 02/14/18. The heart size is normal. No lobar consolidation, pneumothoraces, or pleural effusions are seen. Ther e are degenerative4 changes in the right shoulder joint. A left humeral head prosthesis is again note d. IMPRESSION: No acute process. POS: [facility]
== END 2018-02-24 09:12 | disposition home or self-care (01) ==
LOC: ERS 06:35
DX: M79.89 Other specified soft tissue disorders (principal); M19.90 Unspecified osteoarthritis, unspecified site; E78.5 Hyperlipidemia, unspecified; E11.9 Type 2 diabetes mellitus without complications; I10 Essential (primary) hypertension; Z79.899 Other long term (current) drug therapy; Z79.891 Long term (current) use of opiate analgesic; Z79.4 Long term (current) use of insulin
CPT/HCPCS: 36415; 36416; 71045; 80053; 81003; 81015; 82553; 83880; 84484; 85025; 87086

== ENCOUNTER 2018-09-01 12:58 | Inpatient (IN) | payer MEDICARE ==
[2018-09-01 13:33] LABS: Hemoglobin 11.8 g/dL (14.0-18.0); Mean Corpuscular HGB CONC 33.2 g/dL (32.0-36.0); Mean Corpuscular Hemoglobin 30.1 pg (27.0-31.0); Mean Corpuscular Volume 90.6 fL (78.0-98.0); Mean Platelet Volume 9.4 fL (7.4-10.4); Platelet Count 103 thou/uL (130-400); RBC Distribution Width 17.4 % (11.5-14.5); Red Blood Cell (RBC) Count 3.91 mill/uL (4.70-6.10); White Blood Cell (WBC) Count 14.5 thou/uL (4.8-10.8)
[2018-09-01 13:36] LABS: ALT (SGPT) 31 U/L (8-55); AST (SGOT) 45 U/L (5-34); Albumin 3.2 g/dL (3.5-5.0); Alkaline Phosphatase 74 U/L (40-150); Anion Gap 17 mmol/L (10-20); BUN (Urea Nitrogen) 56 mg/dL (8.4-25.7); Bilirubin, Total 1.2 mg/dL (0.2-1.2); CK (CPK) 407 U/L (30-200); Calc. Creatinine Clearance 0 mL/min (70-130); Calcium 8.4 mg/dL (7.8-10.44); Carbon Dioxide 18 mmol/L (22-29); Chloride 104 mmol/L (98-107); Estimated GFR-MDRD 16; Globulin 3.1 g/dL (2.4-3.5); Glucose 183 mg/dL (70-105); Lipase 16 U/L (8-78); Potassium 4.3 mmol/L (3.5-5.1); Protein, Total 6.3 g/dL (6.0-8.3); Sodium 135 mmol/L (136-145)
[2018-09-01 13:53] LABS: Anisocytosis SLIGHT = 6-15 cells (100X) (0-5/hpf); Band 21 % (5-11); Dohle Bodies SLIGHT; Lymphocytes 10 % (21-51); MDiff Complete? YES; Metamyelocyte 4 % (0-0); Monocytes 3 % (0-10); Neutrophil 61 % (42-75); Ovalocytes SLIGHT = 2-5 cells (100X) (0-1/hpf); Platelet Morphology Comment Appears Decreased; Polychromasia SLIGHT = 2-3 cells (100X) (0-2/hpf); Reactive Lymphocytes 1 % (0-10); Vacuoles SLIGHT
--- NOTE | 2018-09-01 13:55 | RAD ---
SINGLE VIEW OF THE CHEST: Comparison: 02-24-18 History: Fell off bed onto the floor one day ago with chest pain. FINDINGS: Single view of the chest shows a cardiomediastinal silhouette which is upper limits of normal in size . Increased interstitial markings are present. There is no evidence of consolidation, mass, or pleura l effusion. Hardware is seen in the left shoulder and cervical spine. IMPRESSION: No evidence of acute cardiopulmonary disease. POS: [facility]
[2018-09-01 13:58] LABS: CKMB 2.6 ng/mL (0-6.6)
--- NOTE | 2018-09-01 14:06 | RAD ---
FRONTRAL RADIOGRAPH PELVIS: Date: 09-01-18 Comparison: None. History: Fall, nausea, vomiting and diarrhea. Trauma. Pain. FINDINGS: There is prominent degenerative change involving bilateral hips with superior joint space narrowing, osteophyte formation and subchondral sclerotic change, right greater than left. There is multilevel l ower lumbar spine degenerative change with disc space narrowing and osteophyte formation. There is no widening of the sacroiliac joints or pubic symphysis. No displaced fracture noted. IMPRESSION: Degenerative changes are noted involving the lumbar spine and bilateral hips, right greater than left . No displaced fracture is noted. POS: [facility]
--- NOTE | 2018-09-01 14:13 | RAD ---
RIGHT FEMORAL RADIOGRAPH TWO VIEWS: Date: 09-01-18 Provided Clinical History: Trauma. FINDINGS: Degenerative changes are involving the right hip. Vascular calcifications are noted. There is no evid ence for fracture or other acute osseous abnormality. If there is persistent clinical concern, conser vative management and follow up imaging are advised. IMPRESSION: As above. POS: [facility]
--- NOTE | 2018-09-01 16:23 | HP ---
PRIMARY CARE PHYSICIAN: Dr. William Heredia. REASON FOR ADMISSION: Acute kidney failure, acute gastroenteritis. HISTORY OF PRESENT ILLNESS: A 58-year-old male, who has underlying history of diabetes, hypertension, dyslipidemia, who was brought to emergency room for generalized weakness. The patient reports that this week Tuesday, he started having nausea, vomiting, and diarrhea. He is not able to count how many times he had vomiting and diarrhea, but he reports that it was too many to count. His diarrhea was liquidy, nonbloody, and watery. His vomiting was also containing of liquid and food particle without any blood. He did not have any hematochezia or melena. He denies any abdominal pain. He denies any fever or chills. He felt mild upper respiratory infection. He denies any sick exposure. He denies any unusual food ingestion. He denies any recent travel. Over the last , the patient was feeling extremely weak, dizzy, lightheaded, and he had episode of fall at home. His Home Health nurse told him to go to emergency room for evaluation. After falling at home, he was complaining of right hip and right upper leg pain, which was evaluated in the emergency room with x-ray and it was negative for any fracture or dislocation. The patient denies taking any NSAIDs. [facility] reported that when he was at home at that time, his blood pressure was in 70s systolic, but after IV fluid in the emergency room, his blood pressure improved to 93 systolic. The patient reports that now nausea and vomiting have resolved, but diarrhea is still ongoing. He denies any loss of consciousness. He denies any chest pain, palpitation, or syncope. He denies any sore throat or upper respiratory infection at this point. When we looked at old record, his creatinine was normal in February of last year. Today, his troponin is slightly elevated, but he denies any chest pain. PAST MEDICAL HISTORY: Hypertension, dyslipidemia, diabetes type 2, chronic anticoagulation, history of DVT, rheumatoid arthritis, and benign enlargement of prostate. PAST SURGICAL HISTORY: Cholecystectomy, left shoulder surgery, left knee surgery, cervical spine fusion. PAST PSYCHIATRIC HISTORY: Reviewed and negative. ALLERGIES: NO KNOWN DRUG ALLERGIES. CURRENT HOME MEDICATIONS: 1. Lipitor 40 mg p.o. at bedtime. 2. Zetia 10 mg daily. 3. Levemir 15 units subcu at bedtime. 4. Januvia 100 mg daily. 5. Tramadol 50 mg t.i.d. p.r.n. 6. Flexeril 10 mg b.i.d. p.r.n. 7. Multivitamin 1 tablet daily. 8. Xarelto 20 mg p.o. daily. 9. Prednisone 5 mg daily. 10. Ferrous sulfate 325 mg p.o. daily. 11. Flomax 0.4 mg p.o. daily. 12. Vitamin D3 of 2000 units p.o. daily. REVIEW OF SYSTEMS: CONSTITUTIONAL: Negative for weight loss or gain, ability to conduct usual activities. SKIN: Negative for rash, itching. EYES: Negative for double vision, pain. ENT/MOUTH: Negative for nose bleeding, neck stiffness, pain, tenderness. CARDIOVASCULAR: Negative for palpitations, dyspnea on exertion, orthopnea. RESPIRATORY: Negative for shortness of breath, wheezing, cough, hemoptysis, fever or night sweats. GASTROINTESTINAL: Negative for poor appetite, abdominal pain, heartburn, nausea , vomiting, constipation, or diarrhea. GENITOURINARY: Negative for urgency, frequency, dysuria, nocturia. MUSCULOSKELETAL: Negative for pain, swelling. NEUROLOGIC/PSYCHIATRIC: Negative for anxiety, depression. ALLERGY/IMMUNOLOGIC: Negative for skin rash, bleeding tendency. Please see my HPI for pertinent positive and negative. All other review of systems reviewed and negative except as mentioned in HPI. SOCIAL HISTORY: The patient lives at home with his family. No history of tobacco, alcohol, or illicit drug abuse. FAMILY HISTORY: Mother has history of coronary artery disease, requires bypass. Father from diabetes and ESRD related complication. EMERGENCY ROOM COURSE: The patient has received 2 L IV fluid. PHYSICAL EXAMINATION: VITAL SIGNS: On arrival, blood pressure 88/55, pulse 111, respiratory rate 21, temperature 97, saturation 96% on room air, and weight 74.5 kg. GENERAL: The patient is currently alert, awake, appears weak, in no obvious acute distress. HEENT: Head; normocephalic and atraumatic. Eyes; pupils are round and reactive to light. Extraocular muscle intact. ENT, oropharynx within normal limits. Moist mucous membranes. No oral lesion. No pharyngeal erythema. No exudate. NECK: Supple. No JVD. No thyromegaly. No carotid bruit. LUNGS: Clear to auscultation without any rhonchi or rales. CARDIAC: S1 and S2 regular. No murmur. No gallop. No rub. Tachycardia. ABDOMEN: Soft. Bowel sounds present. No peritoneal sign. No guarding. No rigidity. No rebound. BACK: Unremarkable. No CVA tenderness. EXTREMITIES: Upper extremities; passive movement of all joints is normal. Lower extremity, no edema. Good distal pulsation. SKIN: No skin rash. HEMATOLOGIC: No lymphadenopathy. PSYCHIATRIC: Normal affect. NEUROLOGIC: Nonfocal examination. SIGNIFICANT LABORATORY DATA: Pelvis x-ray reported as no evidence of fracture or dislocation. Degenerative changes noted. Chest x-ray based on my review, no acute cardiopulmonary process. Femur x-ray, arthritis changes, but no acute process. CBC; WBC 14.5, hemoglobin 11.8, platelet 103. Sodium 135, potassium 4.3, chloride 104, carbon dioxide 18, BUN 56, creatinine 4.50, glucose 183, calcium 8.4. Lactic acid 2.1. LFT; AST 45, ALT 31, alkaline phosphatase 74. Albumin 3.2. CK 407, CK-MB 2.6. Troponin 0.159. Lipase 16. ASSESSMENT AND PLAN: 1. Acute gastroenteritis. The patient has associated acute kidney failure, thrombocytopenia. We will rule out hemolytic uremic syndrome. We will check ciguatoxin, Campylobacter antigen, ova, parasite, and culture. Depending upon stool study, we will start antibiotic therapy. At this time, we will hold on antibiotic therapy. We will monitor clinically. The patient will be given ample amount of fluid because the patient is clinically significantly dehydrated. 2. Acute kidney failure, likely due to prerenal etiology secondary to gastroenteritis and volume depletion. The patient will be given IV fluid and we will monitor renal function. We will avoid nephrotoxin agent. We will check urinalysis, urine sodium, creatinine, and renal ultrasound. 3. Demand ischemia. We will do serial cardiac enzyme x3 to rule out acute coronary syndrome. 4. Mild rhabdomyolysis. We will repeat CK level tomorrow. We will continue IV fluid. 5. Metabolic acidosis. We will add bicarbonate in IV fluid. 6. Bandemia with anemia and thrombocytopenia, likely related with gastroenteritis. We will monitor CBC and we will check peripheral smear to rule out any schistocytes. 7. Diabetes type 2. We will continue insulin as per sliding scale protocol. We will hold on his oral diabetic medication. We will continue Levemir insulin 15 units subcu daily. 8. Benign enlargement of prostate. We will continue Flomax 0.4 mg p.o. daily. 9. Chronic anticoagulation. We will hold on Xarelto therapy because of renal failure. 10. Dyslipidemia. We will hold on Lipitor therapy for elevated total CK and we will resume tomorrow. 11. Normocytic anemia. We will continue ferrous sulfate 325 mg p.o. daily. 12. Deep venous thrombosis prophylaxis, SCD boots. The patient is already on Xarelto therapy. GI prophylaxis, Pepcid 20 mg p.o. daily. CODE STATUS: The patient is full code. The patient does not have any surrogate decision maker. DISPOSITION PLAN: Based on clinical course, we are expecting the patient's stay in hospital more than two midnights. Plan of care discussed with the patient in detail. Job ID: [id number] MTDD
[2018-09-01 17:27] LABS: Troponin I 0.101 ng/mL (< 0.028)
[2018-09-01 17:34] LABS: Bilirubin Negative (Negative); Blood, Urine Large (Negative); Clarity TURBID (Clear); Glucose, Urine (Dipstick) Negative (Negative); Leukocyte Large (Negative); Nitrite Positive (Negative); Protein, Urine (Dipstick) 100 mg/dL (Neg-Trace); Specific Gravity, Urine 1.015 (1.002-1.036); Urobilinogen 0.2 mg/dL (0.2-1.0)
[2018-09-01 17:38] LABS: Bacteria/HPF 4+ HPF (None Seen); Hyaline Casts/LPF 0-3 HYALINE CAST LPF (0-3 Hyaline); Pathc Cast-AUWi Flag 0.58 (0-2.49); RBC/HPF 0-3 HPF (0-3); Squamous Epithelial 0-3 HPF (0-3)
[2018-09-01 17:42] LABS: Yeast-AUWi Flag 519.8 (0-25.0)
[2018-09-01 17:47] LABS: Lactic Acid 1.6 mmol/L (0.5-2.2)
[2018-09-01 17:53] LABS: Renal Epithelial 0-3 HPF (0-3); Transitional Epithelial 0-3 HPF (0-3); Yeast-All Forms None Seen HPF (None Seen)
[2018-09-01] MEDS ORDERED: Ondansetron PF 4 MG/2 ML Vial IVP PRN ×2 (18:47→18:52)
[2018-09-01] MEDS ORDERED: Ondansetron ODT 4 MG TAB SL PRN (18:47)
[2018-09-01] MEDS ORDERED: HYDROcodone/Acetaminophen 5/325 mg Tablet PO PRN ×3 (18:47→18:52)
[2018-09-01] MEDS ORDERED: Acetaminophen 325 MG TAB PO PRN (18:47)
[2018-09-01 18:52] VITALS: BMI 26.8
[2018-09-01] MEDS ORDERED: Loratadine 10 MG TAB PO PRN (18:52)
[2018-09-01] MEDS ORDERED: Diabetic Tussin 200 MG/10 ML UDCUP PO PRN (18:52)
[2018-09-01] MEDS ORDERED: Sodium Bicarbonate 50 MEQ in Sodium Chloride 0.45% 1,000 ML IV SCH (18:52)
[2018-09-01] MEDS ORDERED: Artificial Tears 18 DROP/0.9 ML EA EYE PRN (18:52)
[2018-09-01] MEDS ORDERED: Eucerin (Mineral Oil/Petrolatum,White) 30 gm Jar TOP PRN (18:52)
[2018-09-01] MEDS ORDERED: HumaLOG 300 UNITS/3 ML VIAL SC PRN (18:52)
[2018-09-01] MEDS ORDERED: Zolpidem Tartrate 5 MG TAB PO PRN (18:52)
[2018-09-01] MEDS ORDERED: Sodium Chloride 0.65% Nasal 44 ML BOT EA NARE PRN (18:52)
[2018-09-01] MEDS ORDERED: Calcium Carbonate 500 MG ChewTAB PO PRN (18:52)
[2018-09-01] MEDS ORDERED: Ondansetron ODT 4 MG TAB PO PRN (18:52)
[2018-09-01] MEDS ORDERED: hydrALAZINE 20 MG/ML VIAL SLOW IVP PRN (18:52)
[2018-09-01] MEDS ORDERED: Dextrose 50% Abboject 50 ML SYRINGE SLOW IVP PRN (18:52)
[2018-09-01] MEDS ORDERED: Dextrose 5% in Water 1,000 ML IV PRN (18:52)
[2018-09-01] MEDS ORDERED: Loperamide HCl 2 MG CAP PO PRN (18:52)
[2018-09-01] MEDS ORDERED: Lactated Ringer's 1,000 ML IV SCH (19:00)
[2018-09-01 20:00] LABS: Troponin I 0.097 ng/mL (< 0.028)
[2018-09-01 20:01] LABS: Creatinine, Urine 164.09 mg/dL (63-166)
[2018-09-02 06:52] LABS: ALT (SGPT) 36 U/L (8-55); AST (SGOT) 52 U/L (5-34); Alkaline Phosphatase 80 U/L (40-150); Anion Gap 15 mmol/L (10-20); BUN (Urea Nitrogen) 41 mg/dL (8.4-25.7); Bilirubin, Total 0.9 mg/dL (0.2-1.2); CK (CPK) 227 U/L (30-200); Calc. Creatinine Clearance 43 mL/min (70-130); Calcium 8.3 mg/dL (7.8-10.44); Carbon Dioxide 16 mmol/L (22-29); Chloride 109 mmol/L (98-107); Estimated GFR-MDRD 39; Globulin 3.1 g/dL (2.4-3.5); Glucose 84 mg/dL (70-105); Potassium 3.9 mmol/L (3.5-5.1); Protein, Total 6.1 g/dL (6.0-8.3); Sodium 136 mmol/L (136-145)
[2018-09-02 06:56] LABS: Band 3 % (5-11); Hemoglobin 11.4 g/dL (14.0-18.0); Hypochromia SLIGHT = 6-15 cells (100X) (0-5/hpf); Lymphocytes 8 % (21-51); MDiff Complete? YES; Mean Corpuscular HGB CONC 32.3 g/dL (32.0-36.0); Mean Corpuscular Hemoglobin 30.3 pg (27.0-31.0); Mean Corpuscular Volume 93.9 fL (78.0-98.0); Mean Platelet Volume 9.6 fL (7.4-10.4); Monocytes 2 % (0-10); Neutrophil 87 % (42-75); Platelet Count 96 thou/uL (130-400); Platelet Morphology Comment Appears Decreased; RBC Distribution Width 17.7 % (11.5-14.5); Red Blood Cell (RBC) Count 3.75 mill/uL (4.70-6.10); White Blood Cell (WBC) Count 7.2 thou/uL (4.8-10.8)
[2018-09-02] MEDS: Acetaminophen 325 MG TAB PO PRN ×2 (07:14→13:48)
[2018-09-02] MEDS: Famotidine 20 MG TAB PO SCH (07:14)
[2018-09-02] MEDS ORDERED: traMADol HCl 50 MG TAB PO PRN (07:29)
--- NOTE | 2018-09-02 09:17 | ULT ---
BILATERAL RENAL ULTRASOUND: DATE: 09/02/2018. COMPARISON: None. HISTORY: Acute renal failure. TECHNIQUE: Multiplanar, soria scale sonographic imaging of the kidneys and urinary bladder obtained. FINDINGS: The right kidney measures 12.7 x 5.0 x 4.7 cm. The left kidney measures 10.9 x 6.6 x 5.8 cm. There is a cyst in the upper pole of the right kidney measuring 4.3 x 4.0 cm. No mass, stone, or hydroneph rosis noted on the left. No hydronephrosis or stone appreciated on the right. The urinary bladder i s partially decompressed. There is diffuse bladder wall thickening which could be secondary to patho logic wall thickening of the urinary bladder, nonspecific, versus under distention. Urinary bladder volume is 32 cc. IMPRESSION: 1. No hydronephrosis seen on either side. 2. Nonspecific urinary bladder wall thickening. Please see above discussion. POS: [facility]
[2018-09-02] MEDS: Ezetimibe 10 MG TAB PO SCH (10:25)
[2018-09-02] MEDS: Atorvastatin Calcium 20 MG TAB PO SCH (10:25)
[2018-09-02] MEDS: predniSONE 5 MG TAB PO SCH (10:25)
[2018-09-02] MEDS: Rivaroxaban 10 MG TAB PO SCH (10:25)
[2018-09-02] MEDS: Saccharomyces boulardii 250 MG CAP PO SCH (10:25)
[2018-09-02] MEDS: Multivit, Chewable SF 1 TAB PO SCH (10:25)
[2018-09-02] MEDS: Tamsulosin HCl 0.4 MG CAP PO SCH (10:26)
[2018-09-02] MEDS: Ferrous Sulfate 325 MG TAB PO SCH ×2 (10:26→19:33)
[2018-09-02] MEDS: Folic Acid 1 MG TAB PO SCH (10:26)
[2018-09-02] MEDS: cefTRIAXone\\ROCEPHIN 1 GM in Sodium Chloride 0.9% 100 ML IVPB SCH (10:41)
--- NOTE | 2018-09-02 10:48 | PDOC.PN ---
- Subjective Encounter Start Date: 09/02/18 Encounter Start Time: 07:10 -: old records requested/rev pt has 2 diarrhoea last night, but he denies abdominal pain, no fever, has nausea Patient seen and examined. No overnight events - Objective Resuscitation Status - Order Detail: 09/01/18 15:28 Resuscitation Status Routine Resuscitation Status: FULL: Full Resuscitation MAR Reviewed: Yes Vital Signs & Weight: Vital Signs (12 hours) Temp Pulse Resp BP BP Pulse Ox 09/02/18 08:00 93 L 09/02/18 07:38 102 F H 118 H 18 115/62 93 L 09/02/18 02:57 99.0 F 111 H 20 115/64 96 09/01/18 23:37 97.5 F L 108 H 18 95/58 L 96 Weight Weight 176 lb 4 oz I&O: 09/01/18 09/02/18 09/03/18 06:59 06:59 06:59 Intake Total 1892 Output Total 450 Balance 1442 Result Diagrams: 09/02/18 05:48 09/02/18 05:48 Additional Labs: Accuchecks 09/01/18 20:15 POC Glucose 188 H Radiology Reviewed by me: Yes (renal US noted) EKG Reviewed by me: Yes (sinus tachycardia) Phys Exam - Physical Examination Constitutional: NAD HEENT: PERRLA, moist MMs, sclera anicteric Neck: no JVD, supple Respiratory: no wheezing, no rales, no rhonchi Cardiovascular: RRR, no significant murmur, no rub Gastrointestinal: soft, non-tender, no distention, positive bowel sounds Musculoskeletal: no edema, pulses present Neurological: non-focal, normal sensation Lymphatic: no nodes Psychiatric: normal affect, A&O x 3 Skin: no rash, normal turgor Dx/Plan (1) Acute kidney failure Status: Acute (2) Metabolic acidosis Code(s): E87.2 - ACIDOSIS Status: Acute (3) Gastroenteritis Code(s): K52.9 - NONINFECTIVE GASTROENTERITIS AND COLITIS, UNSPECIFIED Status : Acute (4) UTI (urinary tract infection) Status: Acute (5) H/O deep venous thrombosis Code(s): Z86.718 - PERSONAL HISTORY OF OTHER VENOUS THROMBOSIS AND EMBOLISM Status: Chronic (6) Chronic anticoagulation Code(s): Z79.01 - [facility] (CURRENT) USE OF ANTICOAGULANTS Status: Chronic (7) Hypotension Status: Resolved (8) BPH (benign prostatic hyperplasia) Code(s): N40.0 - BENIGN PROSTATIC HYPERPLASIA WITHOUT LOWER URINRY TRACT SYMP Status: Chronic (9) Dyslipidemia Code(s): E78.5 - HYPERLIPIDEMIA, UNSPECIFIED Status: Chronic (10) Diabetes type 2, controlled Code(s): E11.9 - TYPE 2 DIABETES MELLITUS WITHOUT COMPLICATIONS Status: Chronic - Plan cont current plan of care, continue antibiotics * continue IVF with bicarbonate * renal function improving * send urine culture * start rocephin and levaquin * add florastor * medication reviewed as below * symptomatic treatment * ambulate as tolerated * repeat labs tomorrow. Review of Systems - Review of Systems Constitutional: negative: fever, chills, sweats, weakness, malaise, other Eyes: negative: Pain, Vision Change, Conjunctivae Inflammation, Eyelid Inflammation, Redness, Other ENT: negative: Ear Pain, Ear Discharge, Nose Pain, Nose Discharge, Nose Congestion, Mouth Pain, Mouth Swelling, Throat Pain, Throat Swelling, Other Respiratory: negative: Cough, Dry, Shortness of Breath, Hemoptysis, SOB with Excertion, Pleuritic Pain, Sputum, Wheezing Cardiovascular: negative: chest pain, palpitations, orthopnea, paroxysmal nocturnal dyspnea, edema, light headedness, other Gastrointestinal: Diarrhea. negative: Nausea, Vomiting, Abdominal Pain, Constipation, Melena, Hematochezia, Other Genitourinary: negative: Dysuria, Frequency, Incontinence, Hematuria, Retention , Other Musculoskeletal: negative: Neck Pain, Shoulder Pain, Arm Pain, Back Pain, Hand Pain, Leg Pain, Foot Pain, Other Skin: negative: Rash, Lesions, Dalton, Bruising, Other - Medications/Allergies Allergies/Adverse Reactions: Allergies Allergy/AdvReac Type Severity Reaction Status Date / Time No Known Drug Allergies Allergy Verified 10/18/15 02:31 Medications: Current Medications Acetaminophen (Tylenol) 650 mg PO Q4H PRN PRN Reason: Headache/Fever/Mild Pain (1-3) Last Admin: 09/02/18 07:14 Dose: 650 mg Hydrocodone Bitart/Acetaminophen ([place] 5/325) 1 tab PO Q4H PRN PRN Reason: Moderate Pain (4-6) Artificial Tears (Tears Naturale) 2 drop EA EYE PRN PRN PRN Reason: Dry Eyes Atorvastatin Calcium (Lipitor) 40 mg PO QAM [facility] Last Admin: 09/02/18 10:25 Dose: 40 mg Calcium Carbonate (Tums) 1,000 mg PO Q4H PRN PRN Reason: Heartburn or Indigestion Dextrose/Water (Dextrose 50%) 25 gm SLOW IVP PRN PRN PRN Reason: Hypoglycemia Ezetimibe (Zetia) 10 mg PO QAM [facility] Last Admin: 09/02/18 10:25 Dose: 10 mg Famotidine (Pepcid) 20 mg PO DAILY [facility] Last Admin: 09/02/18 07:14 Dose: 20 mg Ferrous Sulfate (Feosol) 325 mg PO BID [facility] Last Admin: 09/02/18 10:26 Dose: 325 mg Folic Acid (Folvite) 1 mg PO DAILY [facility] Last Admin: 09/02/18 10:26 Dose: 1 mg Glucagon (Glucagon) 1 mg IM PRN PRN PRN Reason: Hypoglycemia Guaifenesin (Robitussin Sf) 200 mg PO Q4H PRN PRN Reason: Cough Hydralazine HCl (Apresoline) 10 mg SLOW IVP Q4H PRN PRN Reason: SBP > 180 and HR < 70 Dextrose/Water (D5w) 1,000 mls @ 0 mls/hr IV .Q0M PRN PRN Reason: Hypoglycemia Sodium Bicarbonate 50 meq/ (Sodium Chloride) 1,050 mls @ 150 mls/hr IV .Q7H [facility] Last Admin: 09/02/18 10:27 Dose: 1,050 mls Levofloxacin 500 mg/ Device 100 mls @ 100 mls/hr IVPB Q2DAYS [facility] Last Admin: 09/02/18 10:26 Dose: 100 mls Ceftriaxone Sodium 1 gm/ (Sodium Chloride) 100 mls @ 200 mls/hr IVPB Q24HR [facility] Last Admin: 09/02/18 10:41 Dose: 100 mls Insulin Human Lispro (Humalog) 0 units SC .MODERATE SLIDING SC PRN PRN Reason: Moderate Correctional Scale Insulin Human Lispro (Humalog) 0 units SC .BEDTIME SLIDING SC PRN PRN Reason: Bedtime Correctional Scale Loperamide HCl (Imodium) 2 mg PO PRN PRN PRN Reason: Diarrhea/Loose Stools Loratadine (Claritin) 10 mg PO DAILYPRN PRN PRN Reason: Sinus Symptoms Mineral Oil/White Petrolatum (Eucerin Cream) 0 gm TOP BIDPRN PRN PRN Reason: Dry Skin Multivitamins (Multivit, Chewable Sf) 1 tab PO DAILY [facility] Last Admin: 09/02/18 10:25 Dose: 1 tab Ondansetron HCl (Zofran Odt) 4 mg PO Q6H PRN PRN Reason: Nausea/Vomiting Ondansetron HCl (Zofran) 4 mg IVP Q6H PRN PRN Reason: Nausea/Vomiting Prednisone (Prednisone) 5 mg PO [facility] Last Admin: 09/02/18 10:25 Dose: 5 mg Rivaroxaban (Xarelto) [address] [facility] Last Admin: 09/02/18 10:25 Dose: 20 mg Saccharomyces Boulardii (Florastor) 250 mg PO DAILY [facility] Last Admin: 09/02/18 10:25 Dose: 250 mg Sodium Chloride (Flush - Normal Saline) 10 ml IVF PRN PRN PRN Reason: Saline Flush Sodium Chloride ([place] Nasal [place] 0.65%) 0 ml EA NARE QIDPRN PRN PRN Reason: Nasal Congestion Tamsulosin HCl (Flomax) 0.4 mg PO [facility] Last Admin: 09/02/18 10:26 Dose: 0.4 mg Tramadol HCl (Ultram) 50 mg PO TIDPRN PRN PRN Reason: Pain Zolpidem Tartrate (Ambien) 5 mg PO HSPRN PRN PRN Reason: Insomnia
[2018-09-03 08:08] LABS: Anion Gap 14 mmol/L (10-20); BUN (Urea Nitrogen) 30 mg/dL (8.4-25.7); Calc. Creatinine Clearance 73 mL/min (70-130); Calcium 7.9 mg/dL (7.8-10.44); Carbon Dioxide 21 mmol/L (22-29); Chloride 106 mmol/L (98-107); Estimated GFR-MDRD 73; Glucose 109 mg/dL (70-105); Potassium 3.4 mmol/L (3.5-5.1); Sodium 138 mmol/L (136-145)
[2018-09-03 08:12] LABS: Troponin I 0.059 ng/mL (< 0.028)
[2018-09-03 09:00] LABS: Band 1 % (5-11); Hemoglobin 11.2 g/dL (14.0-18.0); Lymphocytes 5 % (21-51); MDiff Complete? YES; Mean Corpuscular HGB CONC 32.7 g/dL (32.0-36.0); Mean Corpuscular Hemoglobin 29.8 pg (27.0-31.0); Mean Corpuscular Volume 91.2 fL (78.0-98.0); Mean Platelet Volume 9.4 fL (7.4-10.4); Monocytes 9 % (0-10); Neutrophil 84 % (42-75); Platelet Count 102 thou/uL (130-400); Platelet Morphology Comment Appears Decreased; RBC Distribution Width 17.7 % (11.5-14.5); Reactive Lymphocytes 1 % (0-10); Red Blood Cell (RBC) Count 3.74 mill/uL (4.70-6.10); White Blood Cell (WBC) Count 10.4 thou/uL (4.8-10.8)
[2018-09-03] MEDS ORDERED: Potassium Chloride 20 MEQ TAB PO SCH ×2 (09:15→12:45)
[2018-09-03] MEDS: cefTRIAXone\\ROCEPHIN 1 GM in Sodium Chloride 0.9% 100 ML IVPB SCH (09:31)
[2018-09-03] MEDS: Tamsulosin HCl 0.4 MG CAP PO SCH (09:41)
[2018-09-03] MEDS: Atorvastatin Calcium 20 MG TAB PO SCH (09:41)
[2018-09-03] MEDS: Ezetimibe 10 MG TAB PO SCH (09:41)
[2018-09-03] MEDS: Folic Acid 1 MG TAB PO SCH (09:42)
[2018-09-03] MEDS: predniSONE 5 MG TAB PO SCH (09:42)
[2018-09-03] MEDS: Famotidine 20 MG TAB PO SCH (09:42)
[2018-09-03] MEDS: Saccharomyces boulardii 250 MG CAP PO SCH (09:42)
[2018-09-03] MEDS: Rivaroxaban 10 MG TAB PO SCH (09:42)
[2018-09-03] MEDS: Ferrous Sulfate 325 MG TAB PO SCH ×2 (09:42→20:53)
[2018-09-03] MEDS: Multivit, Chewable SF 1 TAB PO SCH (09:42)
--- NOTE | 2018-09-03 09:44 | PDOC.PN ---
- Subjective Encounter Start Date: 09/03/18 Encounter Start Time: 07:10 he has less diarrhoea, no fever, feels better today, has poor apatitie Patient seen and examined. No new complaints. No overnight events - Objective Resuscitation Status - Order Detail: 09/01/18 15:28 Resuscitation Status Routine Resuscitation Status: FULL: Full Resuscitation MAR Reviewed: Yes Vital Signs & Weight: Vital Signs (12 hours) Temp Pulse Resp BP BP Pulse Ox 09/03/18 08:55 98.7 F 108 H 17 89/57 L 95 09/03/18 08:44 104 H 16 95 09/03/18 06:03 98.1 F 104 H 20 118/65 94 L 09/03/18 05:26 96 09/03/18 03:25 97.7 F 95 18 120/82 96 09/02/18 23:38 97.7 F 95 18 94/64 97 Weight Weight 176 lb 1.6 oz I&O: 09/02/18 09/03/18 09/04/18 06:59 06:59 06:59 Intake Total 1892 3801 Output Total 450 800 Balance 1442 3001 Result Diagrams: 09/03/18 07:27 09/03/18 07:27 Additional Labs: Accuchecks 09/03/18 09/02/18 09/02/18 05:38 20:47 16:36 POC Glucose 113 H 146 H 159 H 09/02/18 09/02/18 11:16 05:33 POC Glucose 141 H 99 EKG Reviewed by me: Yes (sinus tachycardia) Phys Exam - Physical Examination Constitutional: NAD HEENT: PERRLA, moist MMs, sclera anicteric Neck: no JVD, supple Respiratory: no wheezing, no rales, no rhonchi Cardiovascular: RRR, no significant murmur, no rub Gastrointestinal: soft, non-tender, no distention, positive bowel sounds Musculoskeletal: no edema, pulses present Neurological: non-focal, normal sensation, moves all 4 limbs Lymphatic: no nodes Psychiatric: normal affect, A&O x 3 Skin: no rash, normal turgor Dx/Plan (1) Acute kidney failure Status: Acute (2) Metabolic acidosis Code(s): E87.2 - ACIDOSIS Status: Acute (3) Gastroenteritis Code(s): K52.9 - NONINFECTIVE GASTROENTERITIS AND COLITIS, UNSPECIFIED Status : Acute (4) UTI (urinary tract infection) Status: Acute (5) H/O deep venous thrombosis Code(s): Z86.718 - PERSONAL HISTORY OF OTHER VENOUS THROMBOSIS AND EMBOLISM Status: Chronic (6) Chronic 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 Status: Chronic (7) Hypotension Status: Resolved (8) BPH (benign prostatic hyperplasia) Code(s): N40.0 - BENIGN PROSTATIC HYPERPLASIA WITHOUT LOWER URINRY TRACT SYMP Status: Chronic (9) Dyslipidemia Code(s): E78.5 - HYPERLIPIDEMIA, UNSPECIFIED Status: Chronic (10) Hypokalemia Code(s): E87.6 - HYPOKALEMIA Status: Acute (11) Cervical myelopathy Code(s): G95.9 - DISEASE OF SPINAL CORD, UNSPECIFIED Status: Chronic Comment : (12) Diabetes type 2, controlled Code(s): E11.9 - TYPE 2 DIABETES MELLITUS WITHOUT COMPLICATIONS Status: Chronic - Plan cont current plan of care, continue antibiotics * today change ivf to NS at 75 ml per hour * continue rocephin and levaquin * follow culture * overall renal function is improving * pt is clinically improving * start PT * medication reviewed as below * symptomatic treatment. Review of Systems - Review of Systems ENT: negative: Ear Pain, Ear Discharge, Nose Pain, Nose Discharge, Nose Congestion, Mouth Pain, Mouth Swelling, Throat Pain, Throat Swelling, Other Respiratory: negative: Cough, Dry, Shortness of Breath, Hemoptysis, SOB with Excertion, Pleuritic Pain, Sputum, Wheezing Cardiovascular: negative: chest pain, palpitations, orthopnea, paroxysmal nocturnal dyspnea, edema, light headedness, other Gastrointestinal: negative: Nausea, Vomiting, Abdominal Pain, Diarrhea, Constipation, Melena, Hematochezia, Other Genitourinary: negative: Dysuria, Frequency, Incontinence, Hematuria, Retention , Other Musculoskeletal: negative: Neck Pain, Shoulder Pain, Arm Pain, Back Pain, Hand Pain, Leg Pain, Foot Pain, Other Skin: negative: Rash, Lesions, Dalton, Bruising, Other - Medications/Allergies Allergies/Adverse Reactions: Allergies Allergy/AdvReac Type Severity Reaction Status Date / Time No Known Drug Allergies Allergy Verified 10/18/15 02:31 Medications: Current Medications Acetaminophen (Tylenol) 650 mg PO Q4H PRN PRN Reason: Headache/Fever/Mild Pain (1-3) Last Admin: 09/02/18 13:48 Dose: 650 mg Hydrocodone Bitart/Acetaminophen ([place] 5/325) 1 tab PO Q4H PRN PRN Reason: Moderate Pain (4-6) Last Admin: 09/03/18 05:58 Dose: 1 tab Artificial Tears (Tears Naturale) 2 drop EA EYE PRN PRN PRN Reason: Dry Eyes Atorvastatin [facility]) [facility] Last Admin: 09/02/18 10:25 Dose: 40 mg Calcium Carbonate (Tums) 1,000 mg PO Q4H PRN PRN Reason: Heartburn or Indigestion Dextrose/Water (Dextrose 50%) 25 gm SLOW IVP PRN PRN PRN Reason: Hypoglycemia Ezetimibe (Zetia) [facility] Last Admin: 09/02/18 10:25 Dose: 10 mg Famotidine (Pepcid) 20 mg PO DAILY [facility] Last Admin: 09/02/18 07:14 Dose: 20 mg Ferrous Sulfate (Feosol) 325 mg PO BID [facility] Last Admin: 09/02/18 19:33 Dose: 325 mg Folic Acid (Folvite) 1 mg PO DAILY [facility] Last Admin: 09/02/18 10:26 Dose: 1 mg Glucagon (Glucagon) 1 mg IM PRN PRN PRN Reason: Hypoglycemia Guaifenesin (Robitussin Sf) 200 mg PO Q4H PRN PRN Reason: Cough Hydralazine HCl (Apresoline) 10 mg SLOW IVP Q4H PRN PRN Reason: SBP > 180 and HR < 70 Dextrose/Water (D5w) 1,000 mls @ 0 mls/hr IV .Q0M PRN PRN Reason: Hypoglycemia Ceftriaxone Sodium 1 gm/ (Sodium Chloride) 100 mls @ 200 mls/hr IVPB Q24HR [facility] Last Admin: 09/02/18 10:41 Dose: 100 mls Sodium Chloride (Normal Saline 0.9%) 1,000 mls @ 70 mls/hr IV .[id number] [facility] Levofloxacin 500 mg/ Device 100 mls @ 100 mls/hr IVPB 1000 [facility] Insulin Human Lispro (Humalog) 0 units SC .MODERATE SLIDING SC PRN PRN Reason: Moderate Correctional Scale Insulin Human Lispro (Humalog) 0 units SC .BEDTIME SLIDING SC PRN PRN Reason: Bedtime Correctional Scale Loperamide HCl (Imodium) 2 mg PO PRN PRN PRN Reason: Diarrhea/Loose Stools Loratadine (Claritin) 10 mg PO DAILYPRN PRN PRN Reason: Sinus Symptoms Mineral Oil/White Petrolatum (Eucerin Cream) 0 gm TOP BIDPRN PRN PRN Reason: Dry Skin Multivitamins (Multivit, Chewable Sf) 1 tab PO DAILY [facility] Last Admin: 09/02/18 10:25 Dose: 1 tab Ondansetron HCl (Zofran Odt) 4 mg PO Q6H PRN PRN Reason: Nausea/Vomiting Ondansetron HCl (Zofran) 4 mg IVP Q6H PRN PRN Reason: Nausea/Vomiting Potassium Chloride (K-Dur) 40 meq PO ONE [facility] Stop: 09/03/18 11:00 Prednisone (Prednisone) 5 mg PO [facility] Last Admin: 09/02/18 10:25 Dose: 5 mg [facility]) [facility] Last Admin: 09/02/18 10:25 Dose: 20 mg Saccharomyces Boulardii (Florastor) 250 mg PO DAILY [facility] Last Admin: 09/02/18 10:25 Dose: 250 mg Sodium Chloride (Flush - Normal Saline) 10 ml IVF PRN PRN PRN Reason: Saline Flush Sodium Chloride ([place] Nasal [place] 0.65%) 0 ml EA NARE QIDPRN PRN PRN Reason: Nasal Congestion Tamsulosin HCl (Flomax) 0.4 mg PO [facility] Last Admin: 09/02/18 10:26 Dose: 0.4 mg Tramadol HCl (Ultram) 50 mg PO TIDPRN PRN PRN Reason: Pain Zolpidem Tartrate (Ambien) 5 mg PO HSPRN PRN PRN Reason: Insomnia
[2018-09-03] MEDS: Sodium Chloride 0.9% 1,000 ML IV SCH (10:34)
[2018-09-03] MEDS: Acetaminophen 325 MG TAB PO PRN ×2 (11:18→20:52)
[2018-09-03] MEDS: HumaLOG 300 UNITS/3 ML VIAL SC PRN (18:50)
[2018-09-04] MEDS: Sodium Chloride 0.9% 1,000 ML IV SCH (03:46)
[2018-09-04 05:48] LABS: Band 1 % (5-11); Hemoglobin 11.5 g/dL (14.0-18.0); Hypochromia SLIGHT = 6-15 cells (100X) (0-5/hpf); Lymphocytes 10 % (21-51); MDiff Complete? YES; Mean Corpuscular HGB CONC 32.6 g/dL (32.0-36.0); Mean Corpuscular Hemoglobin 29.9 pg (27.0-31.0); Mean Corpuscular Volume 91.8 fL (78.0-98.0); Mean Platelet Volume 10.2 fL (7.4-10.4); Monocytes 8 % (0-10); Neutrophil 81 % (42-75); Platelet Count 102 thou/uL (130-400); Platelet Morphology Comment Appears Decreased; RBC Distribution Width 17.7 % (11.5-14.5); Red Blood Cell (RBC) Count 3.83 mill/uL (4.70-6.10); White Blood Cell (WBC) Count 6.3 thou/uL (4.8-10.8)
[2018-09-04 05:51] LABS: Anion Gap 18 mmol/L (10-20); BUN (Urea Nitrogen) 19 mg/dL (8.4-25.7); Calc. Creatinine Clearance 89 mL/min (70-130); Carbon Dioxide 16 mmol/L (22-29); Chloride 108 mmol/L (98-107); Estimated GFR-MDRD 90; Glucose 142 mg/dL (70-105); Potassium 3.9 mmol/L (3.5-5.1); Sodium 138 mmol/L (136-145)
--- NOTE | 2018-09-04 09:31 | PDOC.PN ---
- Subjective Encounter Start Date: 09/04/18 Encounter Start Time: 07:00 - Objective Resuscitation Status - Order Detail: 09/01/18 15:28 Resuscitation Status Routine Resuscitation Status: FULL: Full Resuscitation MAR Reviewed: Yes Vital Signs & Weight: Vital Signs (12 hours) Temp Pulse Resp BP Pulse Ox 09/04/18 08:00 98.7 F 106 H 18 114/70 95 09/04/18 02:33 97.8 F 105 H 18 103/66 95 Weight Weight 177 lb I&O: 09/03/18 09/04/18 09/05/18 06:59 06:59 06:59 Intake Total 3801 4600 Output Total 800 2160 Balance 3001 2440 Result Diagrams: 09/04/18 04:34 09/04/18 04:34 Additional Labs: Accuchecks 09/04/18 09/03/18 09/03/18 05:32 20:29 16:36 POC Glucose 139 H 188 H 170 H 09/03/18 11:02 POC Glucose 158 H Phys Exam - Physical Examination Constitutional: NAD HEENT: PERRLA, moist MMs, sclera anicteric Neck: no JVD, supple Respiratory: no wheezing, no rales, no rhonchi Cardiovascular: RRR, no significant murmur, no rub Gastrointestinal: soft, non-tender, no distention, positive bowel sounds Musculoskeletal: no edema, pulses present Neurological: non-focal, normal sensation Lymphatic: no nodes Psychiatric: normal affect Skin: no rash, normal turgor Dx/Plan (1) Acute kidney failure Status: Acute (2) Metabolic acidosis Code(s): E87.2 - ACIDOSIS Status: Acute (3) Gastroenteritis Code(s): K52.9 - NONINFECTIVE GASTROENTERITIS AND COLITIS, UNSPECIFIED Status : Acute (4) UTI (urinary tract infection) Status: Acute (5) H/O deep venous thrombosis Code(s): Z86.718 - PERSONAL HISTORY OF OTHER VENOUS THROMBOSIS AND EMBOLISM Status: Chronic (6) 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 Review of Systems - Review of Systems ENT: negative: Ear Pain, Ear Discharge, Nose Pain, Nose Discharge, Nose Congestion, Mouth Pain, Mouth Swelling, Throat Pain, Throat Swelling, Other Respiratory: negative: Cough, Dry, Shortness of Breath, Hemoptysis, SOB with Excertion, Pleuritic Pain, Sputum, Wheezing Cardiovascular: negative: chest pain, palpitations, orthopnea, paroxysmal nocturnal dyspnea, edema, light headedness, other Gastrointestinal: negative: Nausea, Vomiting, Abdominal Pain, Diarrhea, Constipation, Melena, Hematochezia, Other Genitourinary: negative: Dysuria, Frequency, Incontinence, Hematuria, Retention , Other Musculoskeletal: negative: Neck Pain, Shoulder Pain, Arm Pain, Back Pain, Hand Pain, Leg Pain, Foot Pain, Other Skin: negative: Rash, Lesions, Dalton, Bruising, Other - Medications/Allergies Allergies/Adverse Reactions: Allergies Allergy/AdvReac Type Severity Reaction Status Date / Time No Known Drug Allergies Allergy Verified 10/18/15 02:31 Medications: Current Medications Acetaminophen (Tylenol) 650 mg PO Q4H PRN PRN Reason: Headache/Fever/Mild Pain (1-3) Last Admin: 09/03/18 20:52 Dose: 650 mg Hydrocodone Bitart/Acetaminophen ([place] 5/325) 1 tab PO Q4H PRN PRN Reason: Moderate Pain (4-6) Last Admin: 09/03/18 05:58 Dose: 1 tab Artificial Tears (Tears Naturale) 2 drop EA EYE PRN PRN PRN Reason: Dry Eyes Atorvastatin Calcium (Lipitor) 40 [facility] [place] Last Admin: 09/03/18 09:41 Dose: 40 mg Calcium Carbonate (Tums) 1,000 mg PO Q4H PRN PRN Reason: Heartburn or Indigestion Dextrose/Water (Dextrose 50%) 25 gm SLOW IVP PRN PRN PRN Reason: Hypoglycemia Ezetimibe (Zetia) 10 mg [facility] [place] Last Admin: 09/03/18 09:41 Dose: 10 mg Famotidine (Pepcid) 20 mg PO DAILY [facility] Last Admin: 09/03/18 09:42 Dose: 20 mg Ferrous Sulfate (Feosol) 325 mg PO BID [facility] Last Admin: 09/03/18 20:53 Dose: 325 mg Folic Acid (Folvite) 1 mg PO DAILY [facility] Last Admin: 09/03/18 09:42 Dose: 1 mg Glucagon (Glucagon) 1 mg IM PRN PRN PRN Reason: Hypoglycemia Guaifenesin (Robitussin Sf) 200 mg PO Q4H PRN PRN Reason: Cough Last Admin: 09/03/18 20:52 Dose: 200 mg Hydralazine HCl (Apresoline) 10 mg SLOW IVP Q4H PRN PRN Reason: SBP > 180 and HR < 70 Dextrose/Water (D5w) 1,000 mls @ 0 mls/hr IV .Q0M PRN PRN Reason: Hypoglycemia Ceftriaxone Sodium 1 gm/ (Sodium Chloride) 100 mls @ 200 mls/hr IVPB Q24HR [facility] Last Admin: 09/03/18 09:31 Dose: 100 mls Levofloxacin 500 mg/ Device 100 mls @ 100 mls/hr IVPB 1000 [facility] Last Admin: 09/03/18 11:14 Dose: 100 mls Insulin Human Lispro (Humalog) 0 units SC .MODERATE SLIDING SC PRN PRN Reason: Moderate Correctional Scale Last Admin: 09/03/18 18:50 Dose: 2 unit Insulin Human Lispro (Humalog) 0 units SC .BEDTIME SLIDING SC PRN PRN Reason: Bedtime Correctional Scale Loperamide HCl (Imodium) 2 mg PO PRN PRN PRN Reason: Diarrhea/Loose Stools Loratadine (Claritin) 10 mg PO DAILYPRN PRN PRN Reason: Sinus Symptoms Mineral Oil/White Petrolatum (Eucerin Cream) 0 gm TOP BIDPRN PRN PRN Reason: Dry Skin Multivitamins (Multivit, Chewable Sf) 1 tab PO DAILY [facility] Last Admin: 09/03/18 09:42 Dose: 1 tab Ondansetron HCl (Zofran Odt) 4 mg PO Q6H PRN PRN Reason: Nausea/Vomiting Ondansetron HCl (Zofran) 4 mg IVP Q6H PRN PRN Reason: Nausea/Vomiting Prednisone (Prednisone) 5 mg PO QAM [facility] Last Admin: 09/03/18 09:42 Dose: 5 mg Rivaroxaban (Xarelto) [address] [facility] Last Admin: 09/03/18 09:42 Dose: 20 mg Saccharomyces Boulardii (Florastor) 250 mg PO DAILY [facility] Last Admin: 09/03/18 09:42 Dose: 250 mg Sodium Chloride (Flush - Normal Saline) 10 ml IVF PRN PRN PRN Reason: Saline Flush Sodium Chloride ([place] Nasal [place] 0.65%) 0 ml EA NARE QIDPRN PRN PRN Reason: Nasal Congestion Tamsulosin HCl (Flomax) 0.4 mg PO QAM [facility] Last Admin: 09/03/18 09:41 Dose: 0.4 mg Tramadol HCl (Ultram) 50 mg PO TIDPRN PRN PRN Reason: Pain Zolpidem Tartrate (Ambien) 5 mg PO HSPRN PRN PRN Reason: Insomnia
[2018-09-04] MEDS: cefTRIAXone\\ROCEPHIN 1 GM in Sodium Chloride 0.9% 100 ML IVPB SCH (09:46)
[2018-09-04] MEDS: Ferrous Sulfate 325 MG TAB PO SCH ×2 (09:52→19:43)
[2018-09-04] MEDS: Multivit, Chewable SF 1 TAB PO SCH (09:52)
[2018-09-04] MEDS: Ezetimibe 10 MG TAB PO SCH (09:52)
[2018-09-04] MEDS: predniSONE 5 MG TAB PO SCH (09:53)
[2018-09-04] MEDS: Rivaroxaban 10 MG TAB PO SCH (09:53)
[2018-09-04] MEDS: Saccharomyces boulardii 250 MG CAP PO SCH (09:53)
[2018-09-04] MEDS: Atorvastatin Calcium 20 MG TAB PO SCH (09:53)
[2018-09-04] MEDS: Tamsulosin HCl 0.4 MG CAP PO SCH (09:54)
[2018-09-04] MEDS: Folic Acid 1 MG TAB PO SCH (09:54)
[2018-09-04] MEDS: Famotidine 20 MG TAB PO SCH (09:54)
[2018-09-04] MEDS: HumaLOG 300 UNITS/3 ML VIAL SC PRN ×2 (11:19→12:38)
[2018-09-04] MEDS: Acetaminophen 325 MG TAB PO PRN (19:43)
[2018-09-05] MEDS: HumaLOG 300 UNITS/3 ML VIAL SC PRN (05:34)
[2018-09-05] MEDS: Atorvastatin Calcium 20 MG TAB PO SCH (07:39)
[2018-09-05] MEDS: Rivaroxaban 10 MG TAB PO SCH (07:40)
[2018-09-05] MEDS: Tamsulosin HCl 0.4 MG CAP PO SCH (07:40)
[2018-09-05] MEDS: Ezetimibe 10 MG TAB PO SCH (07:40)
[2018-09-05] MEDS: predniSONE 5 MG TAB PO SCH (07:40)
[2018-09-05] MEDS: Ferrous Sulfate 325 MG TAB PO SCH (07:40)
[2018-09-05] MEDS: Famotidine 20 MG TAB PO SCH (07:41)
[2018-09-05] MEDS: Folic Acid 1 MG TAB PO SCH (07:41)
[2018-09-05] MEDS: Saccharomyces boulardii 250 MG CAP PO SCH (07:41)
[2018-09-05] MEDS: cefTRIAXone\\ROCEPHIN 1 GM in Sodium Chloride 0.9% 100 ML IVPB SCH (07:45)
--- NOTE | 2018-09-05 11:46 | DIS ---
DATE OF ADMISSION: 09/01/2018 DATE OF DISCHARGE: 09/05/2018 PRIMARY CARE PHYSICIAN: [facility]/Dr. Yan Thomas. DISCHARGE DISPOSITION: Home. PRIMARY DISCHARGE DIAGNOSES: 1. Acute kidney failure prerenal, improved. 2. Acute gastroenteritis, noninfectious. 3. Metabolic acidosis due to renal failure. 4. Hypokalemia, replaced. 5. Urinary tract infection. 6. Sepsis associated hypotension, resolved. SECONDARY DISCHARGE DIAGNOSES: History of deep venous thrombosis on chronic anticoagulation, dyslipidemia, diabetes type 2, cervical myelopathy, benign enlargement of prostate, and rheumatoid arthritis. PRIMARY PROCEDURE/OPERATION: None. RADIOLOGICAL INVESTIGATION: Chest x-ray normal. Femur x-ray and pelvis x-ray without any fracture or dislocation. Renal ultrasound normal. SIGNIFICANT LABORATORY DATA: WBC 6.3, hemoglobin 11.5, and platelet 102. Sodium 138, potassium 3.9, BUN 19, creatinine 1.03, and calcium 9.0. Urinalysis suggestive of UTI. Urine culture grew E. coli. Blood culture negative. Stool for infection workup negative. DISCHARGE MEDICATIONS: 1. Anakinra 0.67 mg subcu daily. 2. Lipitor 40 mg p.o. daily. 3. Zetia 10 mg daily. 4. Ferrous sulfate 325 mg b.i.d. 5. Folic acid 1 mg daily. 6. Levemir 40 units subcu in morning. 7. Multivitamin 1 tablet daily. 8. Prednisone 5 mg daily. 9. Januvia 100 mg daily. 10. Flomax 0.4 mg daily. 11. Tramadol 50 mg t.i.d. p.r.n. 12. Xarelto 20 mg p.o. daily. 13. Florastor 250 mg p.o. daily for 7 days. 14. Ciprofloxacin 500 mg p.o. b.i.d. for 7 days. CONTRAINDICATION: None. CODE STATUS: Full code. 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 ALLERGIES: NO KNOWN DRUG ALLERGIES. DISCHARGE PLAN: Post hospital, the patient will follow up with Dr. Yan Thomas in 1 week. HOSPITAL COURSE: A 58-year-old male, who was sick for couple of days prior to admission. He was having nausea, vomiting, and diarrhea. He was waiting at home to get better, but he was not improving and he was significantly weak and dehydrated. When he came to the hospital, his routine blood test showed acute kidney failure with creatinine on admission 4.50. With IV fluid, his creatinine improved to 1.03 by the time of discharge. The patient also meeting sepsis criteria. He had hypotension that also responded to IV fluid. He had thrombocytopenia while in hospital, which was related with sepsis. This patient's urinalysis was consistent with UTI and urine culture grew E. coli. Initially, we gave him Rocephin and levofloxacin. On discharge, based on culture and sensitivity result, we changed to ciprofloxacin. The patient's home medication was continued while in hospital. The patient's blood pressure is normal. He does not need any antihypertensive medication and he was not on any antihypertensives medication given at home. The patient wants to go home. He did well with physical therapy. He is tolerating p.o. well. I have seen and examined this patient bedside today. All review of systems reviewed with him and negative. PHYSICAL EXAMINATION: VITAL SIGNS: Currently temperature 98.0, pulse 97, respiratory rate 20, saturation 95% on room air, blood pressure 100/66. Weight 177 pounds. GENERAL: The patient is currently alert and awake, no obvious acute distress. HEENT: Head, normocephalic and atraumatic. Eyes; pupils round and reactive to light. Extraocular muscle intact. ENT: Oropharynx within normal limits. Moist mucous membranes. No oral lesion. No pharyngeal erythema. No exudate. NECK: Supple. No JVD. No thyromegaly. No carotid bruit. No jugular venous distention. LUNGS: Clear to auscultation without any rhonchi or rales. CARDIAC: S1 and S2 regular without any murmur. ABDOMEN: Soft and benign. EXTREMITIES: No edema. NEUROLOGIC: Nonfocal examination. The patient is medically stable for discharge and he wants to go home. He does not want any placement. All new medication prescription sent to his Pharmacy. 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 Job ID: [id number]
[2018-09-05 12:10] VITALS: BP 95/63; TEMP 98.3
--- NOTE | 2018-09-09 10:42 | EKG ---
Test Reason : Blood Pressure : / mmHG Vent. Rate : 110 BPM Atrial Rate : 111 BPM P-R Int : 130 ms QRS Dur : 094 ms QT Int : 348 ms P-R-T Axes : 039 015 034 degrees QTc Int : 470 ms Sinus tachycardia Otherwise normal ECG Confirmed by CARYL BOBBY DO ([id number]), proposal editor NANCY MILES ([id number]) on 09/09/2018 10:42:20 AM Referred By: Confirmed By:CARYL BOBBY DO
== END 2018-09-05 12:17 | disposition home or self-care (01) | DRG 872 ==
LOC: ERS 12:58 → 2NO 18:19 → T4-A 09-04 13:33
PROVIDERS: ADMIT Internal Medicine; ATTEND Internal Medicine
DX: A41.9 Sepsis, unspecified organism (principal); N17.9 Acute kidney failure, unspecified; I24.8 Other forms of acute ischemic heart disease; M62.82 Rhabdomyolysis; E87.2 Acidosis; N39.0 Urinary tract infection, site not specified; G95.9 Disease of spinal cord, unspecified; K52.9 Noninfective gastroenteritis and colitis, unspecified; E11.9 Type 2 diabetes mellitus without complications; I10 Essential (primary) hypertension; E78.5 Hyperlipidemia, unspecified; M06.9 Rheumatoid arthritis, unspecified; N40.0 Benign prostatic hyperplasia without lower urinary tract symptoms; D69.6 Thrombocytopenia, unspecified; D64.9 Anemia, unspecified; E87.6 Hypokalemia; B96.20 Unspecified Escherichia coli [E. coli] as the cause of diseases classified elsewhere; Z79.4 Long term (current) use of insulin; Z79.01 Long term (current) use of anticoagulants; Z86.718 Personal history of other venous thrombosis and embolism; Z90.49 Acquired absence of other specified parts of digestive tract
CPT/HCPCS: 36415; 36416; 71045; 72170; 76770; 80048; 80053; 81003; 81015; 82550; 82553; 82570; 83605; 83690; 84300; 84484; 85007; 85025; 85027; 87040; 87045; 87046; 87077; 87086; 87186; 87324; 87449; 90471; 90686; 93005; 94640; 96360; 96361; G0008; J0696; J1956; J7050; J7620

== ENCOUNTER 2018-09-07 10:41 | Inpatient (IN) | payer MEDICARE ==
[2018-09-07] MEDS ORDERED: ISOVUE-370 76%-LOCM 1 ML ONE (11:27)
--- NOTE | 2018-09-07 11:38 | RAD ---
1 VIEW CHEST: Date: 09/07/18 HISTORY: Pain. Weakness. COMPARISON: 09/01/18. FINDINGS: Normal cardiac silhouette. Pulmonary vessels and hilum are normal. Costophrenic angles are clear. Pat sin bibasilar interstitial and alveolar opacities. Adequate aeration of the upper lungs. No pneumotho rax or osseous abnormalities. Left shoulder prosthesis is noted. There are presumed chronic degenerative changes involving the right shoulder. If there is pain in thi s region, dedicated right shoulder radiograph series is recommended. IMPRESSION: 1. Bibasilar infiltrate. Continued surveillance to ensure resolution is recommended. 2. Indeterminate appearance of the medial right humeral head. If there is pain in this region, consi dacia dedicated right shoulder radiograph series. POS: [facility]
[2018-09-07 11:40] LABS: #Lymphocytes 0.8 thou/uL (1.20-3.40); #Monocytes 0.5 thou/uL (0.11-0.59); #Neutrophils 10.1 thou/uL (1.40-6.50); %Eosinophils 0.3 % (0.0-10.0); %Lymphocytes 7.2 % (21.0-51.0); %Monocytes 4.4 % (0.0-10.0); %Neutrophils 88.1 % (42.0-75.0); Mean Corpuscular HGB CONC 30.8 g/dL (32.0-36.0); Mean Corpuscular Hemoglobin 28.3 pg (27.0-31.0); Mean Corpuscular Volume 91.7 fL (78.0-98.0); Mean Platelet Volume 8.2 fL (7.4-10.4); Platelet Count 285 thou/uL (130-400); RBC Distribution Width 17.2 % (11.5-14.5); White Blood Cell (WBC) Count 11.5 thou/uL (4.8-10.8)
[2018-09-07 12:05] LABS: ALT (SGPT) 14 U/L (8-55); AST (SGOT) 20 U/L (5-34); Albumin 2.8 g/dL (3.5-5.0); Alkaline Phosphatase 73 U/L (40-150); Anion Gap 16 mmol/L (10-20); BUN (Urea Nitrogen) 12 mg/dL (8.4-25.7); Bilirubin, Total 0.7 mg/dL (0.2-1.2); Calc. Creatinine Clearance 0 mL/min (70-130); Calcium 8.6 mg/dL (7.8-10.44); Carbon Dioxide 18 mmol/L (22-29); Chloride 104 mmol/L (98-107); Estimated GFR-MDRD Greater than 90; Globulin 3.1 g/dL (2.4-3.5); Glucose 223 mg/dL (70-105); Potassium 3.4 mmol/L (3.5-5.1); Protein, Total 5.9 g/dL (6.0-8.3); Sodium 135 mmol/L (136-145)
[2018-09-07] MEDS ORDERED: Morphine 4 MG/ML VIAL ONE (12:07)
[2018-09-07] MEDS ORDERED: Ondansetron PF 4 MG/2 ML Vial ONE (12:07)
[2018-09-07] MEDS ORDERED: predniSONE 20 MG TAB ONE (12:07)
[2018-09-07] MEDS ORDERED: traMADol HCl 50 MG TAB PO PRN (14:29)
[2018-09-07] MEDS ORDERED: Sodium Chloride 0.9% 1,000 ML IV SCH (14:30)
[2018-09-07] MEDS ORDERED: Dextrose 50% Abboject 50 ML SYRINGE SLOW IVP PRN (14:31)
[2018-09-07] MEDS ORDERED: Dextrose 5% in Water 1,000 ML IV PRN (14:31)
[2018-09-07] MEDS ORDERED: HYDROcodone/Acetaminophen 7.5/325 mg Tablet PO PRN (14:50)
[2018-09-07 16:03] LABS: Bilirubin Negative (Negative); Blood, Urine Trace (Negative); Clarity CLEAR (Clear); Glucose, Urine (Dipstick) >=1000 mg/dL (Negative); Leukocyte Negative (Negative); Nitrite Negative (Negative); Protein, Urine (Dipstick) 30 mg/dL (Neg-Trace); Specific Gravity, Urine 1.024 (1.002-1.036); Urobilinogen 0.2 mg/dL (0.2-1.0)
[2018-09-07 16:06] LABS: Bacteria/HPF None Seen HPF (None Seen); Hyaline Casts/LPF 4-6 HYALINE CAST LPF (0-3 Hyaline); Pathc Cast-AUWi Flag 1.01 (0-2.49); RBC/HPF 0-3 HPF (0-3); Squamous Epithelial 0-3 HPF (0-3); Yeast-AUWi Flag 19.3 (0-25.0)
[2018-09-07] MEDS: Piperacillin/Tazobactam 3.375 GM in Sodium Chloride 0.9% 100 ML IVPB SCH (16:10)
--- NOTE | 2018-09-07 16:25 | RAD ---
FOUR VIEWS CERVICAL SPINE INCLUDING AP, LATERAL, OPEN MOUTH ODONTOID, AND SUBMENTAL VERTEX VIEWS CERV ICAL SPINE: Date: 09-07-18 FINDINGS: Images demonstrate ACDF with fusion of the C4-5 vertebral level using ACDF plates and screws. There i s loss of the normal lordotic curvature of the cervical spine. There is some kyphosis of the cervical spine at the C6 level. Bridging anterior osteophyte seen at C6-7. IMPRESSION: Changes of spondylosis with ACDF at C4-5 level. POS: [facility]
[2018-09-07] MEDS ORDERED: Cyclobenzaprine 10 MG TAB ONE (16:42)
[2018-09-07] MEDS: Cyclobenzaprine 10 MG TAB PO SCH (16:51)
[2018-09-07] MEDS ORDERED: Adenosine 6 MG/2 ML VIAL ONE ×2 (19:05→19:11)
[2018-09-07 19:19] LABS: Actual Bicarbonate (HCO3a) 12.6 mEq/L (22-28); Analyzer IN Cardio ER; Base Excess (BEa) -10.1 mEq/L (-2.0 to +3.0); Calcium, Ionized 1.12 mmol/L (1.12-1.30); Hemoglobin (Hb) 13.8 g/dL (14.0-18.0); Potassium - ABG Lab 4.15 mmol/L (3.70-5.30); pH, Arterial 7.39 (7.35-7.45)
[2018-09-07 19:23] LABS: ALV-art Gradient 114.215 (0-20); CO2 Tension 21.3 mmHg (35.0-45.0); O2 Tension (PaO2) 58.8 mmHg (80.0-100.0); Puncture Site RRA
[2018-09-07] MEDS ORDERED: Amiodarone 150 MG/3 ML VIAL ONE (19:23)
[2018-09-07] MEDS ORDERED: Potassium Chloride 10 MEQ in Premix Bag 1 BAG IVPB SCH (19:30)
[2018-09-07] MEDS ORDERED: Norepinephrine 8 MG/0.9% NS 250 ML ONE (19:32)
[2018-09-07] MEDS ORDERED: Morphine 2 MG/ML SYRINGE ONE (19:53)
--- NOTE | 2018-09-07 20:38 | PDOC.EVN ---
Event Note - Event Note Event Note: Called to patient's bedside at 1900. Patient was getting his vancomycin. Started to become very tachycardic, grunting, tachypneic, complaining of chest pain. Shivering continuously. Blood pressure initially maintained. EKG showed SVT at 160 bpm, regular rate. Attempted Adenosine 6mg, then 12mg. Pause but immediate return to SVT at 160 bpm. Too much shivering to assess baseline during pause. BP then dropped to 70s-80s systolic. Pulse ox maintained at 100% throughout. Patient still arousable but not as responsive. Synchronized cardioversion attempted at 150J then 200J without resolution. Amiodarone 150mg given along with fluids wide open. Dr. Rosa arrived at the bedside. On reviewing previous strips and slow rise of rate initially he thought that probably sinus tachy. I placed a CVL in right groin under Dr. Bangura' direct observation. Consent: emergent procedure, verbal consent. Right groin sterilized and draped, Femoral vein visualized with U/S. Needle introduced under direct visualization into the vein with good nonpulsatile blood return, CVL placed and flushed with saline. No complications. BP returned to 120/100 at this point. Morphine given for pain. Rate improved to 130s, but BP dropped again to 70s systolic. One more liter being given, will start levophed after that if pressures remain low. Patient now complaining mostly of the right shoulder and neck pain that he came in with, severe but improved with Morphine. Exam with normal breath sounds, good peripheral pulses, midline trachea. Normal neurologic exam. No swelling of face, neck, OP. No redness to skin. Very diaphoretic. Drawing cardiac markers, checking CT chest for PE, Pneumothorax, other pathology. Differential diagnosis includes: AMI, PE, Pneumothorax. May have been allergic rx to Vanc, though not Red Man Syndrome or anaphylaxis. D/C Vanc. Sepsis now with septic shock a possibility. Already received broad spectrum antibiotics, fluids, pressors. Dr. Sykes- Critical Care consulted. Patient will need to be admitted to critical care unit. Critical care time spend in direct patient care: 90 minutes
[2018-09-07] MEDS ORDERED: Vancomycin HCl 1 GM in Premix Bag 1 BAG IVPB SCH (21:00)
--- NOTE | 2018-09-07 21:43 | HP ---
CHIEF COMPLAINT: Neck pain and shoulder pain. HISTORY OF PRESENT ILLNESS: The patient is a very pleasant 58-year-old male who recently was discharged from the hospital after being diagnosed with nausea, vomiting, diarrhea, and also was found to have a UTI. He was discharged home on ciprofloxacin. The patient returned today with complaints of neck pain and shoulder pain, which has been going on for the past week. The patient stated that prior to his initial admission that was about a week ago, he fell out of bed and since then he has been having significant amount of neck pain. The patient denies any fevers or chills; however, states that for the past couple of days, he has been having some shortness of breath and fatigue and felt some heaviness on his chest. The patient denies any coughing. In the ER today, he came in initially for neck pain, stated that he has been taking Tylenol No.3 and also some tramadol, however, it has not been helping him very much, so he came into the ER for further evaluation. However, in the ER, he was found to have pneumonia that was noted on chest x-ray bilaterally, so he was admitted here for further evaluation. PAST MEDICAL HISTORY: 1. He has a history of rheumatoid arthritis, on steroids and also on a biological. 2. History of DVT. 3. History of diabetes. 4. History of hyperlipidemia. 5. History of hypertension. PAST SURGICAL HISTORY: He had cholecystectomy. He had left shoulder surgery, left knee surgery, and cervical spine surgery. ALLERGIES: HE HAS NO KNOWN DRUG ALLERGIES. MEDICATION: The patient takes; 1. Xarelto 20 mg daily. 2. Metformin 1000 mg b.i.d. 3. Levemir 15 units at bedtime. 4. Zetia 10 mg daily. 5. Flomax 0.4 mg daily. 6. Prednisone 5 mg daily. SOCIAL HISTORY: The patient denies any alcohol use, drug use, or smoking history. He lives with his mother and his nephew and he is a full code. FAMILY HISTORY: Mother had a history of bypass. Father is , had a history of diabetes and end-stage renal disease on dialysis. Power of screw eye assembler of this patient is his daughter, Evelyn. REVIEW OF SYSTEMS: All negative except for the ones mentioned above in the HPI. PHYSICAL EXAMINATION: VITAL SIGNS: Are as of the following; temperature of 98.8, respirations are 20, O2 saturation 97% on room air, pulse of 95, and blood pressure 97/57. GENERAL: He is awake, alert, and oriented x3. Does not appear in any distress. CV: S1, S2 present. No murmurs, rubs, or gallops. HEENT: Mucous membranes are dry. Mild pain upon palpation around the bilateral cervical spine area and paraspinal area. LUNGS: Clear to auscultation. No rhonchi or wheezes noted. ABDOMEN: Soft and nontender. Bowel sounds are present x2. EXTREMITIES: Mild edema. Pedal pulses are present x2. SKIN: No cuts, lesions, or bruises noted. MUSCULOSKELETAL: The patient has limited range of motion of his cervical spine area. Unable to move or do any flexion, extension, or rotation of his cervical spine area. NEUROVASCULAR: No focal deficits noted. He is able to move bilateral lower extremities. LABORATORY RESULTS: As of the following; sodium of 135, potassium of 3.4, BUN of 12, creatinine 0.88, bicarb of 18, glucose of 223. His WBCs of 11.5, hemoglobin of 11.0, hematocrit of 35.7, and platelets of 285. He does not have any bands. The patient's chest x-ray indicated bilateral infiltrate. ASSESSMENT AND PLAN: The patient is a very pleasant 58-year-old male who presents to the hospital with complaints of neck pain and was found to have bilateral pneumonia. 1. Hospital acquired pneumonia. The patient was just recently discharged from the hospital on the for completely different symptoms that was nausea, vomiting, and diarrhea, however, comes in initially with neck pain, but now on x-ray indicates that he has bilateral infiltrates. We will treat him with Zosyn and vancomycin. The patient currently has no sputum production. We will treat him with some gentle IV hydration and continue to monitor. 2. Cervical spine pain. The patient has had cervical spine surgery in the past. We will get an x-ray just to make sure that there is no acute abnormalities noted. Also, we will put the patient on a scheduled Flexeril and also some Toradol for anti-inflammatory purposes. We will get Physical Therapy to evaluate this patient and also some other pain narcotics on board. If the patient's pain does not improve, may consider getting a CT of the cervical spine area to rule out any other abnormalities. 3. Hypotension. The patient is on chronic steroids. We will increase his prednisone to 10 mg daily and continue to monitor. 4. Diabetes. We will put the patient on Accu-Chek before meals and at bedtime and continue to monitor. 5. Deep venous thrombosis prophylaxis. The patient is already on Xarelto for his deep venous thrombosis. Job ID: [id number]
--- NOTE | 2018-09-07 22:11 | CT ---
CTA THORAX WITH CONTRAST: 09/07/18 at 9:24 p.m. (Computed Tomographic Angiography, chest(noncoronary) with contrast material, and image postprocessin g) (PE protocol) HISTORY: 58-year-old male with chest pain and cough. COMPARISON: CT angiogram of chest of 10/18/15. TECHNIQUE: IV injection of iodinated contrast: 100 mL of Isovue 370. Scan acquisition timing attempted to coincide with iodinated contrast bolus reaching maximal density in pulmonary arteries. 3D MIP reconstructions. FINDINGS: Bilateral small pleural effusions, smaller than on previous CT. Adjacent passive atelectasis broadly abutting the pleural effusions at the posterior aspects of the bilateral lower lobes. Some of the rig ht pleural effusion extends into the posterior superior aspect of the right major fissure. A small am ount of the left pleural effusion extends a short distance into the contralateral left major fissure. There is no pulmonary thromboembolism in the pulmonic trunk, left and right main pulmonary arteries or their proximal branches. The peripheral branches, especially those of the lower lobes are difficul t to evaluate for pulmonary thromboembolism because of patient breathing motion artifact. Cardiomegal y similar to previous study. No thoracic aortic aneurysm or dissection. Multiple moderately large med iastinal lymph nodes including prevascular space, bilateral paratracheal, and subcarinal, similar to prior CTA. No pneumothorax. IMPRESSION: 1. Small bilateral pleural effusions. 2. Cardiomegaly. 3. No central pulmonary thromboembolism. 4. Mediastinal and hilar lymphadenopathy. maribell[] POS: [facility]ANGELA
[2018-09-07 22:28] LABS: Troponin I 0.015 ng/mL (< 0.028)
[2018-09-07] MEDS ORDERED: Sodium Chloride 0.9% 100 ML ONE (23:22)
[2018-09-07] MEDS ORDERED: Piperacillin/Tazobactam 3.375 GM VIAL ONE (23:22)
[2018-09-08] MEDS: Piperacillin/Tazobactam 3.375 GM in Sodium Chloride 0.9% 100 ML IVPB SCH ×5 (00:33→21:50)
[2018-09-08] MEDS: Ketorolac Tromethamine 30 MG/ML VIAL IVP SCH ×5 (00:35→17:57)
[2018-09-08] MEDS: Sodium Chloride 0.9% 1,000 ML IV SCH ×5 (01:21→22:46)
[2018-09-08] MEDS: Ferrous Sulfate 325 MG TAB PO SCH ×3 (01:21→21:51)
[2018-09-08] MEDS: Famotidine 20 MG TAB PO SCH ×3 (01:21→21:50)
[2018-09-08] MEDS: Cyclobenzaprine 10 MG TAB PO SCH ×4 (01:21→21:51)
[2018-09-08] MEDS ORDERED: Acetaminophen 325 MG TAB PO PRN (01:40)
[2018-09-08] MEDS: Norepinephrine 8 MG/0.9% NS 250 ML IVPB SCH ×4 (02:03→19:39)
[2018-09-08] MEDS ORDERED: Vancomycin HCl 1.25 GM in Sodium Chloride 0.9% 250 ML 250 ML IVPB SCH (05:00)
[2018-09-08] MEDS ORDERED: Sodium Chloride 0.9% 1,000 ML IV SCH ×2 (05:15→12:30)
[2018-09-08 05:57] LABS: Hemoglobin 10.9 g/dL (14.0-18.0); Mean Corpuscular HGB CONC 31.7 g/dL (32.0-36.0); Mean Corpuscular Volume 94.8 fL (78.0-98.0); Mean Platelet Volume 8.4 fL (7.4-10.4); Platelet Count 283 thou/uL (130-400); RBC Distribution Width 17.5 % (11.5-14.5); Red Blood Cell (RBC) Count 3.63 mill/uL (4.70-6.10); White Blood Cell (WBC) Count 26.1 thou/uL (4.8-10.8)
[2018-09-08] MEDS: HumaLOG 300 UNITS/3 ML VIAL SC PRN ×4 (06:31→21:51)
[2018-09-08 06:34] LABS: Anion Gap 20 mmol/L (10-20); BUN (Urea Nitrogen) 20 mg/dL (8.4-25.7); Calc. Creatinine Clearance 50 mL/min (70-130); Calcium 7.6 mg/dL (7.8-10.44); Carbon Dioxide 13 mmol/L (22-29); Chloride 111 mmol/L (98-107); Estimated GFR-MDRD 47; Glucose 219 mg/dL (70-105); Sodium 140 mmol/L (136-145)
[2018-09-08 06:37] LABS: Band 40 % (5-11); Lymphocytes 2 % (21-51); MDiff Complete? YES; Metamyelocyte 4 % (0-0); Monocytes 1 % (0-10); Myelocyte 1 % (0-0); Neutrophil 52 % (42-75)
[2018-09-08] MEDS ORDERED: Rivaroxaban 10 MG TAB PO SCH (08:00)
[2018-09-08] MEDS ORDERED: predniSONE 20 MG TAB PO SCH (08:00)
[2018-09-08] MEDS: Ezetimibe 10 MG TAB PO SCH (08:22)
[2018-09-08] MEDS: Folic Acid 1 MG TAB PO SCH (08:22)
[2018-09-08] MEDS: Atorvastatin Calcium 40 MG TAB PO SCH (08:23)
[2018-09-08] MEDS: Saccharomyces boulardii 250 MG CAP PO SCH (08:23)
[2018-09-08] MEDS: Insulin Glargine 40 UNITS in Pre-Filled Syringe 1 EACH SC SCH (08:23)
[2018-09-08] MEDS: Tamsulosin HCl 0.4 MG CAP PO SCH (08:24)
[2018-09-08] MEDS ORDERED: Multivit, Chewable SF 1 TAB PO SCH (09:00)
[2018-09-08] MEDS ORDERED: Non-Formulary Item 1 EACH (Levemir Flexpen [Levemir Flexpen] 40 UNIT) SC SCH (09:00)
--- NOTE | 2018-09-08 12:42 | PDOC.PN ---
- Subjective Encounter Start Date: 09/08/18 Encounter Start Time: 09:00 Subjective: pt up in bed, feels much better today compared to last night - Objective Resuscitation Status - Order Detail: 09/07/18 14:27 Resuscitation Status Routine Resuscitation Status: FULL: Full Resuscitation Vital Signs & Weight: Vital Signs (12 hours) Temp Pulse Ox 09/08/18 08:00 97.5 F L 96 09/08/18 04:00 100.2 F H 09/08/18 02:34 97 Weight Weight 173 lb 11.588 oz Most Recent Monitor Data Heart Rate from ECG 88 NIBP 111/70 NIBP BP-Mean 83 Respiration from ECG 26 SpO2 87 I&O: 09/07/18 09/08/18 09/09/18 06:59 06:59 06:59 Intake Total 2145.2 Output Total 235 145 Balance 1910.2 -145 Result Diagrams: 09/08/18 05:15 09/08/18 05:15 Additional Labs: Accuchecks 09/08/18 09/08/18 11:54 05:16 POC Glucose 305 H 219 H Phys Exam - Physical Examination Neck: no nodes, no JVD, supple, full ROM decreased breath sound all over Cardiovascular: RRR, no significant murmur, no rub, gallop, irregular Gastrointestinal: soft, non-tender, no distention, positive bowel sounds Musculoskeletal: no edema, pulses present, edema present Dx/Plan (1) Sepsis Code(s): A41.9 - SEPSIS, UNSPECIFIED ORGANISM Status: Acute (2) SVT (supraventricular tachycardia) Code(s): I47.1 - SUPRAVENTRICULAR TACHYCARDIA Status: Acute (3) Diabetes type 2, controlled Code(s): E11.9 - TYPE 2 DIABETES MELLITUS WITHOUT COMPLICATIONS Status: Chronic (4) Pneumonia Code(s): J18.9 - PNEUMONIA, UNSPECIFIED ORGANISM Status: Acute (5) Neck pain Code(s): M54.2 - CERVICALGIA Status: Acute (6) Leukocytosis Code(s): D72.829 - ELEVATED WHITE BLOOD CELL COUNT, UNSPECIFIED Status: Acute (7) Leukocytosis Code(s): D72.829 - ELEVATED WHITE BLOOD CELL COUNT, UNSPECIFIED Status: Acute Qualifiers: Leukocytosis type: bandemia Qualified Code(s): D72.825 - Bandemia (8) Acute kidney failure Status: Acute - Plan will continue broad spectrum abx -: will continue pain meds and toradol his neck pain has improved -: pt on pressors, will discontinue solumedrol -: mild nguyen will continue iv hydration * . Review of Systems - Review of Systems Respiratory: negative: Cough, Dry, Shortness of Breath, Hemoptysis, SOB with Excertion, Pleuritic Pain, Sputum, Wheezing Cardiovascular: negative: chest pain, palpitations, orthopnea, paroxysmal nocturnal dyspnea, edema, light headedness, other Gastrointestinal: negative: Nausea, Vomiting, Abdominal Pain, Diarrhea, Constipation, Melena, Hematochezia, Other Genitourinary: negative: Dysuria, Frequency, Incontinence, Hematuria, Retention , Other - Medications/Allergies Allergies/Adverse Reactions: Allergies Allergy/AdvReac Type Severity Reaction Status Date / Time vancomycin Allergy Verified 09/08/18 00:42 Medications: Current Medications Acetaminophen (Tylenol) 650 mg PO Q6H PRN PRN Reason: TEMP > 101 Last Admin: 09/08/18 01:59 Dose: 650 mg Hydrocodone Bitart/Acetaminophen ([place] 7.5/325) 1 tab PO Q4H PRN PRN Reason: Mild Pain (1-3) Last Admin: 09/08/18 00:43 Dose: 1 tab Atorvastatin Calcium (Lipitor) 40 mg PO QAM [facility] Last Admin: 09/08/18 08:23 Dose: 40 mg Cyclobenzaprine HCl (Flexeril) 10 mg PO TID [facility] Last Admin: 09/08/18 08:23 Dose: 10 mg Dexamethasone (Decadron) 4 mg SLOW IVP Q6H [facility] Dextrose/Water (Dextrose 50%) 25 gm SLOW IVP PRN PRN PRN Reason: Hypoglycemia Ezetimibe (Zetia) 10 mg PO QAM [facility] Last Admin: 09/08/18 08:22 Dose: 10 mg Famotidine (Pepcid) 20 mg PO BID [facility] Last Admin: 09/08/18 08:23 Dose: 20 mg Ferrous Sulfate (Feosol) 325 mg PO BID [facility] Last Admin: 09/08/18 08:23 Dose: 325 mg Folic Acid (Folvite) 1 mg PO DAILY [facility] Last Admin: 09/08/18 08:22 Dose: 1 mg Glucagon (Glucagon) 1 mg IM PRN PRN PRN Reason: Hypoglycemia Dextrose/Water (D5w) 1,000 mls @ 0 mls/hr IV .Q0M PRN PRN Reason: Hypoglycemia Insulin Glargine 40 units/ (Miscellaneous Medication) 0.4 mls @ 0 mls/hr SC QAM [facility] Last Admin: 09/08/18 08:23 Dose: 0.4 mls Piperacillin Sod/Tazobactam (Sod 3.375 gm/ Sodium Chloride) 100 mls @ 200 mls/ hr IVPB 0400,1000,1600,2200 [facility] Last Admin: 09/08/18 09:13 Dose: 100 mls Norepinephrine Bitartrate (Levophed) 250 mls @ 0 mls/hr IVPB INF [facility]; Protocol Last Admin: 09/08/18 11:55 Dose: 250 mls Sodium Chloride (Normal Saline 0.9%) 1,000 mls @ 150 mls/hr IV .Q6H40M [facility] Last Admin: 09/08/18 08:49 Dose: 1,000 mls Vasopressin 40 unit/Miscellaneous Medication 1 each/ Sodium Chloride 102 mls @ 0 mls/hr IV INF [facility]; Protocol Sodium Chloride (Normal Saline 0.9%) 1,000 mls @ 999 mls/hr IV .Q1H1M [facility] Stop: 09/08/18 13:30 Insulin Human Lispro (Humalog) 0 units SC .MILD SLIDING SCALE PRN PRN Reason: Mild Correctional Scale Last Admin: 09/08/18 11:55 Dose: 5 unit Ketorolac Tromethamine (Toradol) 15 mg IVP Q6HR [facility] Stop: 09/08/18 18:01 Last Admin: 09/08/18 05:11 Dose: 15 mg Rivaroxaban (Xarelto) 10 mg PO DAILY [facility] Saccharomyces Boulardii (Florastor) 250 mg PO DAILY [facility] Last Admin: 09/08/18 08:23 Dose: 250 mg Sodium Chloride (Flush - Normal Saline) 10 ml IVF Q12HR [facility] Sodium Chloride (Flush - Normal Saline) 10 ml IVF PRN PRN PRN Reason: Saline Flush Tamsulosin HCl (Flomax) 0.4 mg PO QAM [facility] Last Admin: 09/08/18 08:24 Dose: 0.4 mg Tramadol HCl (Ultram) 50 mg PO TID PRN PRN Reason: Pain
--- NOTE | 2018-09-08 13:10 | CON ---
DATE OF CONSULTATION: 09/08/2018 REASON FOR CONSULTATION: Tachycardia. HISTORY OF PRESENT ILLNESS: Mr. Knight is a pleasant 58-year-old gentleman, who was seen and evaluated in the past, who comes into the hospital for neck pain. He was evaluated and diagnosed with pneumonia. Yesterday, overnight, he became hypotensive and tachycardic. Heart rate went up to the 150s, it actually took about 30 minutes for that heart rate to get up there. He was originally in upper 90s. Once he got to the 150s, it was thought that he had SVT. He actually received 2 shocks as he was hypotensive and thought this was SVT. He did not come out. Most likely, this was sinus tachycardia and only got better after IV fluids were given. He eventually had to be started on vasopressin and Levophed drip. His blood pressure is better. His heart rate is also better. He still has difficulty breathing. He has been seen in the past because he had an admission to the hospital for a septic shock from urinary tract infection and his EF at that time was 40% to 45%. When I saw him in the office, we evaluate for ischemia with a PET scan, which showed that his EF has normalized and he had no ischemia. We repeated an echo to confirm and in fact his EF was about 60% to 65%, this was in May 2017. He has not been seen since. PAST MEDICAL HISTORY: 1. Rheumatoid arthritis. 2. DVT in the past. 3. Type-2 diabetes. 4. Hyperlipidemia. 5. Hypertension. PAST SURGICAL HISTORY: 1. Cholecystectomy. 2. Left shoulder surgery. 3. Left knee surgery. 4. Cervical spine surgery. ALLERGIES: NO KNOWN DRUG ALLERGIES. OUTPATIENT MEDICATIONS: 1. Xarelto 20 mg a day. 2. Metformin 1000 mg b.i.d. 3. Levemir 15 units at bedtime. 4. Zetia 10 mg a day. 5. Flomax 0.4 a day. 6. Prednisone 5 mg a day. SOCIAL HISTORY: No alcohol, tobacco, or drugs. FAMILY HISTORY: Mother with bypass surgery. Father from diabetes and end-stage renal disease. REVIEW OF SYSTEMS: A 12-point review of systems was negative unless stated in the history of present illness. He is just very short of breath still. PHYSICAL EXAMINATION: VITAL SIGNS: Temperature 97.5, however, on admission, it was 103.2; heart rate of 80; respiratory rate 30; saturating 91% on 4 L nasal cannula. GENERAL: Awake, alert, and oriented x3, in mild respiratory distress. HEENT: Normocephalic and atraumatic. NECK: Supple. LUNGS: Have crackles at bilateral bases. CARDIOVASCULAR: S1, S2. No S3 or S4. No murmurs. ABDOMEN: Soft. Positive bowel sounds. EXTREMITIES: 1+ edema. SKIN: Warm and dry. LABORATORY DATA: Laboratory work was reviewed. CBC, blood gas, chemistries were reviewed. Troponin is negative x2. Urine is reviewed. Chest x-ray and CT of the thorax were reviewed. ASSESSMENT AND PLAN: 1. Sinus tachycardia. No SVT. Most likely, he had sinus tachycardia yesterday. We will continue to treat sepsis and septic shock. 2. We will get an echocardiogram as he has a history of LV dysfunction during episodes of sepsis. This may as well be the case and he may need some IV Lasix to improve his breathing pattern. 3. Most recent echocardiogram was done in January 2018 and he was at 55% to 60% at that time with normal diastolic function. 4. Agree with stress dose steroids. 5. We will follow. Job ID: [id number]
[2018-09-08] MEDS: Dexamethasone 4 mg/ml Vial SLOW IVP SCH ×2 (13:44→21:50)
[2018-09-08] MEDS: Vasopressin 40 UNIT, Admixture Fee 1 EACH in Sodium Chloride 0.9% 100 ML IV SCH (17:58)
[2018-09-09] MEDS: Dexamethasone 4 mg/ml Vial SLOW IVP SCH ×4 (01:28→20:11)
[2018-09-09] MEDS: Norepinephrine 8 MG/0.9% NS 250 ML IVPB SCH ×2 (01:36→08:35)
[2018-09-09] MEDS: Sodium Chloride 0.9% 1,000 ML IV SCH ×4 (01:36→20:30)
--- NOTE | 2018-09-09 01:43 | CON ---
DATE OF CONSULTATION: 09/08/2018 HISTORY OF PRESENT ILLNESS: Mr. Knight is a very pleasant 58-year-old male. He presented to the hospital yesterday and was admitted around 3:00. He presented with complaint of neck and shoulder pain. He was noted to be tachycardic. He was recently in the hospital with nausea, vomiting, and diarrhea that started with the diarrheal illness. He presented with this discomfort. He was noted to be tachycardic. He was cardioverted twice in the ER for presumed SVT, but remained in a tachycardia that turned out to be a sinus tachycardia. He subsequently has been admitted. It has been presumed he has pneumonia. Chest CT done in the emergency room only shows bilateral effusions that was slightly improved. No clear-cut alveolar infiltrates were seen on CT. PAST MEDICAL HISTORY: Remarkable for rheumatoid arthritis. He has been managed with biological agents lately, but has been on steroids in the past. Previous history of DVT over a year ago, but he has had 1 solitary DVT associated with a long hospitalization. It was not a DVT that led to the hospitalization. History of diabetes, history of lipid disorder, and history of hypertension. PAST SURGICAL HISTORY: Remarkable for shoulder surgery, knee surgery, cervical spine surgery, and cholecystectomy. He had hospitalization in 01/2018 that was long. He had bilateral pleural effusions at that time. He came in with weakness, was hypotensive and tachycardic at time with a fever. He was culture negative. 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 He has never been taken off anticoagulants since his initial DVT. SOCIAL HISTORY: Not obtained. FAMILY HISTORY: Negative for lung disease in early age. REVIEW OF SYSTEMS: He says he feels 100% better than he felt yesterday. A 10- point review of systems completed, otherwise negative. PHYSICAL EXAMINATION: GENERAL: He is in no distress. He is actually eating a very large lunch. VITAL SIGNS: He is afebrile. Heart rate is 75, respiratory rate 18, oximetry is 98%, and blood pressure 115/79. HEENT: Pupils are equal. Sclerae anicteric. NECK: Supple. No lymphadenopathy. LUNGS: Left lung is clear. He had some fine crackles at his right base. HEART: Regular rhythm. S1 and S2 are normal. No murmurs heard. ABDOMEN: Soft and nontender. EXTREMITIES: Without clubbing, cyanosis, or edema. LABORATORY DATA: White count is 26.1, hemoglobin 10.9, and platelets 283. Sodium 140, potassium 4, chloride 111, bicarb 23, BUN 20, and creatinine 1.81. Creatinine was 0.88 yesterday. IMPRESSION: Recent admission for nausea, vomiting, and diarrhea with readmission with chest pain and sinus tachycardia. He is on IV steroids now. He has no cortisol level done prior to initiation of steroids that I can see. I will switch him to Decadron and do an ACTH stimulation test tomorrow. It is unclear how much of this is related to adrenal insufficiency and possible adrenal crisis. His rheumatoid arthritis has been relatively well controlled. He does not clinically appear to be septic. Radiographically, he does not appear to have any alveolar infiltrates and I suspect the crackles I am hearing are related to the pleural effusion, adjacent lung compression, and atelectasis. It is reasonable to continue antimicrobial therapy for now. He is on pressors still, hopefully wean off pressors with additional volume resuscitation. Reassess him in the morning for transfer out of the Critical Care Unit. TIME SPENT WITH PATIENT: This is a 70-minute consult, with greater than 50% of the time spent on the unit coordinating care. Job ID: [id number] [facility]
[2018-09-09] MEDS: Piperacillin/Tazobactam 3.375 GM in Sodium Chloride 0.9% 100 ML IVPB SCH ×4 (03:52→23:48)
[2018-09-09] MEDS: HumaLOG 300 UNITS/3 ML VIAL SC PRN ×3 (06:26→16:52)
[2018-09-09] MEDS: Vasopressin 40 UNIT, Admixture Fee 1 EACH in Sodium Chloride 0.9% 100 ML IV SCH (08:13)
[2018-09-09] MEDS: Ferrous Sulfate 325 MG TAB PO SCH ×2 (08:14→20:11)
[2018-09-09] MEDS: Cyclobenzaprine 10 MG TAB PO SCH (08:14)
[2018-09-09] MEDS: Tamsulosin HCl 0.4 MG CAP PO SCH (08:15)
[2018-09-09] MEDS: Folic Acid 1 MG TAB PO SCH (08:15)
[2018-09-09] MEDS: Famotidine 20 MG TAB PO SCH ×2 (08:15→20:12)
[2018-09-09] MEDS: Atorvastatin Calcium 40 MG TAB PO SCH (08:15)
[2018-09-09] MEDS: Ezetimibe 10 MG TAB PO SCH (08:15)
[2018-09-09] MEDS: Saccharomyces boulardii 250 MG CAP PO SCH (08:37)
[2018-09-09] MEDS: Rivaroxaban 10 MG TAB PO SCH (08:41)
[2018-09-09] MEDS: Insulin Glargine 40 UNITS in Pre-Filled Syringe 1 EACH SC SCH (08:45)
[2018-09-09 09:52] LABS: Band 44 % (5-11); Hemoglobin 10.8 g/dL (14.0-18.0); Lymphocytes 3 % (21-51); MDiff Complete? YES; Mean Corpuscular Hemoglobin 29.6 pg (27.0-31.0); Mean Corpuscular Volume 95.7 fL (78.0-98.0); Mean Platelet Volume 9.2 fL (7.4-10.4); Metamyelocyte 3 % (0-0); Monocytes 1 % (0-10); Neutrophil 49 % (42-75); Platelet Count 266 thou/uL (130-400); RBC Distribution Width 18.1 % (11.5-14.5); Red Blood Cell (RBC) Count 3.65 mill/uL (4.70-6.10); Vacuoles SLIGHT; White Blood Cell (WBC) Count 21.2 thou/uL (4.8-10.8)
[2018-09-09 09:53] LABS: Anion Gap 18 mmol/L (10-20); BUN (Urea Nitrogen) 33 mg/dL (8.4-25.7); Calc. Creatinine Clearance 46 mL/min (70-130); Carbon Dioxide 12 mmol/L (22-29); Chloride 113 mmol/L (98-107); Estimated GFR-MDRD 43; Glucose 236 mg/dL (70-105); Potassium 4.4 mmol/L (3.5-5.1); Sodium 139 mmol/L (136-145)
--- NOTE | 2018-09-09 11:21 | PDOC.PN ---
- Subjective Encounter Start Date: 09/09/18 Encounter Start Time: 10:00 Subjective: pt up in bed feels better but still on 2 pressors - Objective Resuscitation Status - Order Detail: 09/07/18 14:27 Resuscitation Status Routine Resuscitation Status: FULL: Full Resuscitation Vital Signs & Weight: Vital Signs (12 hours) Temp Pulse Ox 09/09/18 08:00 100 09/09/18 07:00 97.8 F 09/09/18 04:00 96.8 F L 09/09/18 00:00 97.5 F L Weight Weight 173 lb 11.588 oz Most Recent Monitor Data Heart Rate from ECG 82 NIBP 96/75 NIBP BP-Mean 82 Respiration from ECG 23 SpO2 100 I&O: 09/08/18 09/09/18 09/10/18 06:59 06:59 06:59 Intake Total 2145.2 5895.6 Output Total 235 1420 290 Balance 1910.2 4475.6 -290 Result Diagrams: 09/09/18 09:01 09/09/18 09:01 Additional Labs: Accuchecks 09/09/18 09/08/18 09/08/18 06:01 21:08 18:06 POC Glucose 198 H 293 H 291 H 09/08/18 11:54 POC Glucose 305 H Phys Exam - Physical Examination Neck: no nodes, no JVD, supple, full ROM Respiratory: no wheezing, no rales, no rhonchi, wheezing present, clear to auscultation bilateral Cardiovascular: RRR, no significant murmur, no rub, gallop, irregular Gastrointestinal: soft, non-tender, no distention, positive bowel sounds has some neck pain Dx/Plan (1) Sepsis Code(s): A41.9 - SEPSIS, UNSPECIFIED ORGANISM Status: Acute (2) SVT (supraventricular tachycardia) Code(s): I47.1 - SUPRAVENTRICULAR TACHYCARDIA Status: Acute (3) Diabetes type 2, controlled Code(s): E11.9 - TYPE 2 DIABETES MELLITUS WITHOUT COMPLICATIONS Status: Chronic (4) Pneumonia Code(s): J18.9 - PNEUMONIA, UNSPECIFIED ORGANISM Status: Acute (5) Neck pain Code(s): M54.2 - CERVICALGIA Status: Acute (6) Leukocytosis Code(s): D72.829 - ELEVATED WHITE BLOOD CELL COUNT, UNSPECIFIED Status: Acute (7) Leukocytosis Code(s): D72.829 - ELEVATED WHITE BLOOD CELL COUNT, UNSPECIFIED Status: Acute Qualifiers: Leukocytosis type: bandemia Qualified Code(s): D72.825 - Bandemia (8) Acute kidney failure Status: Acute - Plan pt still on 2 pressure, recommended to titrate pressor down and keep map -: >65, on abx, deesclated by Pulm, on steroids for neck pain -: pt on xarelto for chronic dvt -: pt's creatinine worse, continue hydration, good output yest, ?ATN * . Review of Systems - Review of Systems Cardiovascular: negative: chest pain, palpitations, orthopnea, paroxysmal nocturnal dyspnea, edema, light headedness, other Gastrointestinal: negative: Nausea, Vomiting, Abdominal Pain, Diarrhea, Constipation, Melena, Hematochezia, Other Genitourinary: negative: Dysuria, Frequency, Incontinence, Hematuria, Retention , Other Musculoskeletal: Neck Pain - Medications/Allergies Allergies/Adverse Reactions: Allergies Allergy/AdvReac Type Severity Reaction Status Date / Time vancomycin Allergy Verified 09/08/18 00:42 Medications: Current Medications Acetaminophen (Tylenol) 650 mg PO Q6H PRN PRN Reason: TEMP > 101 Last Admin: 09/08/18 01:59 Dose: 650 mg Hydrocodone Bitart/Acetaminophen ([place] 7.5/325) 1 tab PO Q4H PRN PRN Reason: Mild Pain (1-3) Last Admin: 09/08/18 00:43 Dose: 1 tab Atorvastatin Calcium (Lipitor) 40 mg PO QAM [facility] Last Admin: 09/09/18 08:15 Dose: 40 mg Cyclobenzaprine HCl (Flexeril) 10 mg PO TID [facility] Last Admin: 09/09/18 08:14 Dose: 10 mg Dexamethasone (Decadron) 4 mg SLOW IVP Q6H [facility] Last Admin: 09/09/18 08:12 Dose: 4 mg Dextrose/Water (Dextrose 50%) 25 gm SLOW IVP PRN PRN PRN Reason: Hypoglycemia Ezetimibe (Zetia) 10 mg PO QAM [facility] Last Admin: 09/09/18 08:15 Dose: 10 mg Famotidine (Pepcid) 20 mg PO BID [facility] Last Admin: 09/09/18 08:15 Dose: 20 mg Ferrous Sulfate (Feosol) 325 mg PO BID [facility] Last Admin: 09/09/18 08:14 Dose: 325 mg Folic Acid (Folvite) 1 mg PO DAILY [facility] Last Admin: 09/09/18 08:15 Dose: 1 mg Glucagon (Glucagon) 1 mg IM PRN PRN PRN Reason: Hypoglycemia Dextrose/Water (D5w) 1,000 mls @ 0 mls/hr IV .Q0M PRN PRN Reason: Hypoglycemia Insulin Glargine 40 units/ (Miscellaneous Medication) 0.4 mls @ 0 mls/hr SC QAM [facility] Last Admin: 09/09/18 08:45 Dose: 0.4 mls Piperacillin Sod/Tazobactam (Sod 3.375 gm/ Sodium Chloride) 100 mls @ 200 mls/ hr IVPB 0400,1000,1600,2200 [facility] Last Admin: 09/09/18 10:20 Dose: 100 mls Norepinephrine Bitartrate (Levophed) 250 mls @ 0 mls/hr IVPB INF [facility]; Protocol Last Admin: 09/09/18 08:35 Dose: 250 mls Sodium Chloride (Normal Saline 0.9%) 1,000 mls @ 150 mls/hr IV .Q6H40M [facility] Last Admin: 09/09/18 08:12 Dose: 1,000 mls Vasopressin 40 unit/Miscellaneous Medication 1 each/ Sodium Chloride 102 mls @ 0 mls/hr IV INF [facility]; Protocol Last Admin: 09/09/18 08:13 Dose: 102 mls Insulin Human Lispro (Humalog) 0 units SC .MILD SLIDING SCALE PRN PRN Reason: Mild Correctional Scale Last Admin: 09/09/18 06:26 Dose: 2 unit Rivaroxaban (Xarelto) 10 mg PO DAILY [facility] Last Admin: 09/09/18 08:41 Dose: 10 mg Saccharomyces Boulardii (Florastor) 250 mg PO DAILY [facility] Last Admin: 09/09/18 08:37 Dose: 250 mg Sodium Chloride (Flush - Normal Saline) 10 ml IVF Q12HR [facility] Last Admin: 09/09/18 08:37 Dose: 10 ml Sodium Chloride (Flush - Normal Saline) 10 ml IVF PRN PRN PRN Reason: Saline Flush Tamsulosin HCl (Flomax) 0.4 mg PO QAM [facility] Last Admin: 09/09/18 08:15 Dose: 0.4 mg Tramadol HCl (Ultram) 50 mg PO TID PRN PRN Reason: Pain
--- NOTE | 2018-09-09 11:29 | EKG ---
Test Reason : Blood Pressure : / mmHG Vent. Rate : 165 BPM Atrial Rate : 153 BPM P-R Int : 000 ms QRS Dur : 070 ms QT Int : 294 ms P-R-T Axes : 000 013 007 degrees QTc Int : 487 ms Supraventricular tachycardia Nonspecific ST abnormality Abnormal ECG Confirmed by SHANDRA COMER, JOE ([id number]), editor & co founder NANCY MILES ([id number]) on 09/09/2018 11:29:04 AM Referred By: SHANDRA Confirmed By:JOE DEVI MD
[2018-09-09] MEDS ORDERED: Cosyntropin 250 MCG VIAL SLOW IVP SCH (12:15)
[2018-09-09] MEDS: guaiFENesin/Codeine Phosphate 200 mg/20 mg 10 ml UD Cup PO PRN (15:43)
[2018-09-09] MEDS ORDERED: Digoxin 0.5 MG/2 ML AMP SLOW IVP SCH ×2 (18:15→20:00)
[2018-09-09] MEDS ORDERED: Sodium Chloride 0.9% 1,000 ML IV SCH (23:45)
--- NOTE | 2018-09-10 00:13 | PRG ---
DATE OF SERVICE: 09/09/2018 SUBJECTIVE: Stephani Knight continues to have no real complaints. He coughs a little bit today. He has been weaning off his pressors all night and through the day. OBJECTIVE: LUNGS: Remarkable for crackles at the right base, more than the left. HEART: Regular rhythm. S1 and S2 are normal. ABDOMEN: Soft and nontender. EXTREMITIES: Without asymmetry. LABORATORY DATA: Sodium 139, potassium 4.4, chloride 113, bicarbonate 12, BUN 33, and creatinine 1.95. Creatinine is up from 1.81 yesterday and 0.88 on admission. White count 21.2, hemoglobin 10.8, and platelets 266. DIAGNOSTIC DATA: Echocardiogram shows an ejection fraction of 10% to 15%, moderate mitral regurgitation seen. IMPRESSION AND PLAN: Hypotension. The etiology has not been entirely clear. I suppose some of this could be cardiogenic. We did an ACTH stimulation test, which shows a baseline cortisol of 4.5. His cortisol never got above 9.6, so he clearly has adrenal insufficiency, although he is not truly Addisonian, he has just more of a relative insufficiency. I suspect this contributed to his hypertension on presentation, but is not the sole culprit. He has more of a hyperchloremic acidosis at this point. We will stop the Decadron and place him back on Medrol twice a day. Still on broad antimicrobial therapy, this can probably be tapered back tomorrow once he is weaned off pressors. He definitely needs Cardiology following. Dr. Rosa saw him yesterday. I suspect this cardiomyopathy explains his bilateral effusions. Other problems include rheumatoid arthritis, history of deep venous thrombosis, now on prophylactic dose anticoagulants. His nausea and vomiting on presentation may have been related to adrenal insufficiency. I believe he has pneumonia. I will continue to follow the other physicians caring for him. CRITICAL CARE TIME: 30 minutes. Job ID: [id number] [facility]
[2018-09-10] MEDS: Vasopressin 40 UNIT, Admixture Fee 1 EACH in Sodium Chloride 0.9% 100 ML IV SCH (03:09)
[2018-09-10 04:22] LABS: Anion Gap 13 mmol/L (10-20); BUN (Urea Nitrogen) 34 mg/dL (8.4-25.7); Calc. Creatinine Clearance 59 mL/min (70-130); Calcium 7.1 mg/dL (7.8-10.44); Carbon Dioxide 15 mmol/L (22-29); Chloride 113 mmol/L (98-107); Estimated GFR-MDRD 57; Glucose 88 mg/dL (70-105); Potassium 4.2 mmol/L (3.5-5.1); Sodium 137 mmol/L (136-145)
[2018-09-10 04:32] LABS: Hemoglobin 9.6 g/dL (14.0-18.0); Mean Corpuscular HGB CONC 31.4 g/dL (32.0-36.0); Mean Corpuscular Hemoglobin 29.6 pg (27.0-31.0); Mean Corpuscular Volume 94.4 fL (78.0-98.0); Mean Platelet Volume 9.3 fL (7.4-10.4); Platelet Count 195 thou/uL (130-400); RBC Distribution Width 17.8 % (11.5-14.5); Red Blood Cell (RBC) Count 3.24 mill/uL (4.70-6.10); White Blood Cell (WBC) Count 10.9 thou/uL (4.8-10.8)
[2018-09-10] MEDS: Piperacillin/Tazobactam 3.375 GM in Sodium Chloride 0.9% 100 ML IVPB SCH ×4 (04:57→20:04)
[2018-09-10] MEDS: guaiFENesin/Codeine Phosphate 200 mg/20 mg 10 ml UD Cup PO PRN (05:59)
[2018-09-10] MEDS ORDERED: Digoxin 0.5 MG/2 ML AMP SLOW IVP SCH ×3 (06:00→09:00)
[2018-09-10] MEDS: Saccharomyces boulardii 250 MG CAP PO SCH (08:24)
[2018-09-10] MEDS: Atorvastatin Calcium 40 MG TAB PO SCH (08:24)
[2018-09-10] MEDS: Folic Acid 1 MG TAB PO SCH (08:24)
[2018-09-10] MEDS: Tamsulosin HCl 0.4 MG CAP PO SCH (08:24)
[2018-09-10] MEDS: Ferrous Sulfate 325 MG TAB PO SCH ×2 (08:24→20:04)
[2018-09-10] MEDS: Ezetimibe 10 MG TAB PO SCH (08:25)
[2018-09-10] MEDS: Famotidine 20 MG TAB PO SCH ×2 (08:25→20:06)
[2018-09-10] MEDS: Insulin Glargine 10 UNITS in Pre-Filled Syringe 1 EACH SC SCH (08:28)
[2018-09-10] MEDS: Rivaroxaban 10 MG TAB PO SCH (08:34)
[2018-09-10] MEDS: Sodium Chloride 0.9% 1,000 ML IV SCH (08:36)
[2018-09-10 09:16] LABS: Band 43 % (5-11); Lymphocytes 1 % (21-51); MDiff Complete? YES; Metamyelocyte 1 % (0-0); Neutrophil 55 % (42-75)
[2018-09-10] MEDS: Amoxicillin/Potassium Clav 875 MG TAB PO SCH ×2 (11:11→23:16)
--- NOTE | 2018-09-10 11:16 | PRG ---
DATE OF SERVICE: 09/10/2018 SUBJECTIVE: Mr. Knight is feeling better. He is off Levophed at midnight. He is off vasopressin this morning. He is in no distress. We will cut his fluids back to TKO. OBJECTIVE: LUNGS: Clear. HEART: Regular rhythm. S1 and S2 normal. ABDOMEN: Soft and nontender. EXTREMITIES: Without clubbing, cyanosis, or edema. LABORATORY DATA: White count 10.9, hemoglobin 9.6, platelets 195,000. Sodium 137, potassium 4.2, chloride 113, bicarb 15, BUN 34, and creatinine 1.52 down from yesterday 1.95. IMPRESSION: Status post presentation with hypotension. The etiology is still not entirely clear. 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 He has relative adrenal insufficiency as well. Now with his new diagnosis of a cardiomyopathy, I would wonder if this is related to Still disease as it can cause myocarditis. He is actually in good spirits and in no distress, oximetry on room air is actually 100% now. I do not feel he has pneumonia. At this point, it is probably reasonable to switch him to p.o. antimicrobial therapy. We will keep him in the ICU for another day. We will await Cardiology input. Critical care time 30 minutes. Job ID: [id number]
[2018-09-10] MEDS ORDERED: Sodium Chloride 0.9% 1,000 ML IV SCH (11:30)
[2018-09-10] MEDS: Cyclobenzaprine 10 MG TAB PO PRN (13:44)
--- NOTE | 2018-09-10 13:50 | PDOC.PN ---
- Subjective Encounter Start Date: 09/10/18 Encounter Start Time: 10:00 Subjective: pt up in bed feels well - Objective Resuscitation Status - Order Detail: 09/07/18 14:27 Resuscitation Status Routine Resuscitation Status: FULL: Full Resuscitation Vital Signs & Weight: Vital Signs (12 hours) Temp Pulse Pulse Ox 09/10/18 08:29 74 09/10/18 08:00 98 09/10/18 07:00 97.7 F 09/10/18 04:00 97.7 F Weight Weight 198 lb Most Recent Monitor Data Heart Rate from ECG 83 NIBP 109/65 NIBP BP-Mean 79 Respiration from ECG 9 SpO2 100 I&O: 09/09/18 09/10/18 09/11/18 06:59 06:59 06:59 Intake Total 5895.6 3666 942 Output Total 1420 2050 1750 Balance 4475.6 1616 808 Result Diagrams: 09/10/18 03:30 09/10/18 03:30 Additional Labs: Accuchecks 09/10/18 09/10/18 09/09/18 13:25 11:16 21:03 POC Glucose 107 59 L* 152 H 09/09/18 16:17 POC Glucose 257 H Phys Exam - Physical Examination Neck: no nodes, no JVD, supple, full ROM Respiratory: no wheezing, no rales, no rhonchi, wheezing present, clear to auscultation bilateral Cardiovascular: RRR, no significant murmur, no rub, gallop, irregular Gastrointestinal: soft, non-tender, no distention, positive bowel sounds neck pain Neurological: non-focal, normal sensation, moves all 4 limbs Dx/Plan (1) Sepsis Code(s): A41.9 - SEPSIS, UNSPECIFIED ORGANISM Status: Acute (2) SVT (supraventricular tachycardia) Code(s): I47.1 - SUPRAVENTRICULAR TACHYCARDIA Status: Acute (3) Diabetes type 2, controlled Code(s): E11.9 - TYPE 2 DIABETES MELLITUS WITHOUT COMPLICATIONS Status: Chronic (4) Pneumonia Code(s): J18.9 - PNEUMONIA, UNSPECIFIED ORGANISM Status: Acute (5) Neck pain Code(s): M54.2 - CERVICALGIA Status: Acute (6) Leukocytosis Code(s): D72.829 - ELEVATED WHITE BLOOD CELL COUNT, UNSPECIFIED Status: Acute (7) Leukocytosis Code(s): D72.829 - ELEVATED WHITE BLOOD CELL COUNT, UNSPECIFIED Status: Acute Qualifiers: Leukocytosis type: bandemia Qualified Code(s): D72.825 - Bandemia (8) Acute kidney failure Status: Acute - Plan pt is on chronic steroids, will add solucortef. -: pt has significant chills however no blood cx were done. Since pt is -: immunocompromised need to continue with broad spectrum abx -: low ef possible due to sepsis? will consult [email or web address] no pneumonia but pt has -: bands and had elevated wbc but no fever. will add ferritin level * . Review of Systems - Review of Systems Respiratory: negative: Cough, Dry, Shortness of Breath, Hemoptysis, SOB with Excertion, Pleuritic Pain, Sputum, Wheezing Cardiovascular: negative: chest pain, palpitations, orthopnea, paroxysmal nocturnal dyspnea, edema, light headedness, other Gastrointestinal: negative: Nausea, Vomiting, Abdominal Pain, Diarrhea, Constipation, Melena, Hematochezia, Other Genitourinary: negative: Dysuria, Frequency, Incontinence, Hematuria, Retention , Other - Medications/Allergies Allergies/Adverse Reactions: Allergies Allergy/AdvReac Type Severity Reaction Status Date / Time vancomycin Allergy Verified 09/08/18 00:42 Medications: Current Medications Acetaminophen (Tylenol) 650 mg PO Q6H PRN PRN Reason: TEMP > 101 Last Admin: 09/08/18 01:59 Dose: 650 mg Hydrocodone Bitart/Acetaminophen ([place] 7.5/325) 1 tab PO Q4H PRN PRN Reason: Mild Pain (1-3) Last Admin: 09/08/18 00:43 Dose: 1 tab Amoxicillin/Clavulanate Potassium (Augmentin) 875 mg PO 1100,2300 [facility] Last Admin: 09/10/18 11:11 Dose: 875 mg Atorvastatin Calcium (Lipitor) 40 mg PO QAM [facility] Last Admin: 09/10/18 08:24 Dose: 40 mg Cyclobenzaprine HCl (Flexeril) 10 mg PO TID PRN PRN Reason: Muscle Spasm Last Admin: 09/10/18 13:44 Dose: 10 mg Dextrose/Water (Dextrose 50%) 25 gm SLOW IVP PRN PRN PRN Reason: Hypoglycemia Digoxin (Lanoxin) 0.125 mg SLOW IVP QAM [facility] Last Admin: 09/10/18 08:29 Dose: 0.125 mg Ezetimibe (Zetia) 10 mg PO QAM [facility] Last Admin: 09/10/18 08:25 Dose: 10 mg Famotidine (Pepcid) 20 mg PO BID [facility] Last Admin: 09/10/18 08:25 Dose: 20 mg Ferrous Sulfate (Feosol) 325 mg PO BID [facility] Last Admin: 09/10/18 08:24 Dose: 325 mg Folic Acid (Folvite) 1 mg PO DAILY [facility] Last Admin: 09/10/18 08:24 Dose: 1 mg Glucagon (Glucagon) 1 mg IM PRN PRN PRN Reason: Hypoglycemia Guaifenesin/Codeine Phosphate (Robitussin Ac) 10 ml PO Q6H PRN PRN Reason: Cough Last Admin: 09/10/18 05:59 Dose: 10 ml Hydrocortisone Sodium Succinate (Solu-Cortef) 25 mg IVP Q8HR [facility] Dextrose/Water (D5w) 1,000 mls @ 0 mls/hr IV .Q0M PRN PRN Reason: Hypoglycemia Insulin Glargine 10 units/ (Miscellaneous Medication) 0.1 mls @ 0 mls/hr SC QAM [facility] Last Admin: 09/10/18 08:28 Dose: 0.1 mls Sodium Chloride (Normal Saline 0.9%) 1,000 mls @ 0 mls/hr IV .Q0M [facility] Piperacillin Sod/Tazobactam (Sod 3.375 gm/ Sodium Chloride) 100 mls @ 200 mls/ hr IVPB 0200,0800,1400,2000 [facility] Insulin Human Lispro (Humalog) 0 units SC .MILD SLIDING SCALE PRN PRN Reason: Mild Correctional Scale Last Admin: 09/09/18 16:52 Dose: 4 unit Rivaroxaban (Xarelto) 10 mg PO DAILY [facility] Last Admin: 09/10/18 08:34 Dose: 10 mg Saccharomyces Boulardii (Florastor) 250 mg PO DAILY [facility] Last Admin: 09/10/18 08:24 Dose: 250 mg Sodium Chloride (Flush - Normal Saline) 10 ml IVF Q12HR [facility] Last Admin: 09/10/18 08:35 Dose: 10 ml Sodium Chloride (Flush - Normal Saline) 10 ml IVF PRN PRN PRN Reason: Saline Flush Tamsulosin [facility]) [facility] Last Admin: 09/10/18 08:24 Dose: 0.4 mg Tramadol HCl (Ultram) 50 mg PO TID PRN PRN Reason: Pain
[2018-09-10] MEDS ORDERED: Hydrocortisone Sod Succ/PF 100 mg/2 ml Vial IVP SCH (14:00)
[2018-09-10] MEDS: HumaLOG 300 UNITS/3 ML VIAL SC PRN (17:16)
--- NOTE | 2018-09-10 18:09 | PDOC.EVN ---
Event Note - Event Note Event Note: spoke with ID who recommended pt to be started on vanco given concerns for possible infectious etiology. Vancomycin ordered, nurse called and instructed on administering vancomycin. Vancomycin was discontinued by pulmonary without consulting me.
[2018-09-10] MEDS: hydrALAZINE 10 MG TAB PO SCH (20:05)
[2018-09-10] MEDS ORDERED: Vancomycin HCl 750 MG in Sodium Chloride 0.9% 250 ML 250 ML IVPB SCH (21:00)
[2018-09-11] MEDS: Piperacillin/Tazobactam 3.375 GM in Sodium Chloride 0.9% 100 ML IVPB SCH ×2 (01:36→08:09)
[2018-09-11] MEDS: hydrALAZINE 10 MG TAB PO SCH ×3 (08:41→20:15)
[2018-09-11] MEDS: Digoxin 0.25 MG TAB PO SCH (08:42)
[2018-09-11] MEDS: Saccharomyces boulardii 250 MG CAP PO SCH (08:42)
[2018-09-11] MEDS: Ferrous Sulfate 325 MG TAB PO SCH ×2 (08:42→20:15)
[2018-09-11] MEDS: Rivaroxaban 10 MG TAB PO SCH (08:42)
[2018-09-11] MEDS: Famotidine 20 MG TAB PO SCH ×2 (08:42→20:15)
[2018-09-11] MEDS: Ezetimibe 10 MG TAB PO SCH (08:42)
[2018-09-11] MEDS: Atorvastatin Calcium 40 MG TAB PO SCH (08:42)
[2018-09-11] MEDS: Tamsulosin HCl 0.4 MG CAP PO SCH (08:42)
[2018-09-11] MEDS: Folic Acid 1 MG TAB PO SCH (08:42)
[2018-09-11] MEDS: Insulin Glargine 10 UNITS in Pre-Filled Syringe 1 EACH SC SCH (08:44)
[2018-09-11] MEDS ORDERED: Digoxin 0.5 MG/2 ML AMP SLOW IVP SCH (09:00)
[2018-09-11 10:32] LABS: Anion Gap 14 mmol/L (10-20); BUN (Urea Nitrogen) 34 mg/dL (8.4-25.7); Calc. Creatinine Clearance 67 mL/min (70-130); Carbon Dioxide 18 mmol/L (22-29); Chloride 117 mmol/L (98-107); Estimated GFR-MDRD 57; Glucose 190 mg/dL (70-105); Sodium 145 mmol/L (136-145)
[2018-09-11] MEDS: Amoxicillin/Potassium Clav 875 MG TAB PO SCH ×2 (10:55→22:08)
[2018-09-11] MEDS: HumaLOG 300 UNITS/3 ML VIAL SC PRN ×3 (10:55→20:16)
[2018-09-11 11:47] LABS: Acanthocytes SLIGHT = 1-5 cells (100X) (None Seen); Anisocytosis SLIGHT = 6-15 cells (100X) (0-5/hpf); Band 5 % (5-11); Hemoglobin 9.5 g/dL (14.0-18.0); Lymphocytes 9 % (21-51); MDiff Complete? YES; Mean Corpuscular HGB CONC 32.4 g/dL (32.0-36.0); Mean Corpuscular Hemoglobin 30.3 pg (27.0-31.0); Mean Corpuscular Volume 93.6 fL (78.0-98.0); Mean Platelet Volume 10.2 fL (7.4-10.4); Metamyelocyte 1 % (0-0); Monocytes 6 % (0-10); Myelocyte 1 % (0-0); Neutrophil 78 % (42-75); Platelet Count 187 thou/uL (130-400); Platelet Morphology Comment Appears Adequate; RBC Distribution Width 17.8 % (11.5-14.5); Red Blood Cell (RBC) Count 3.13 mill/uL (4.70-6.10); White Blood Cell (WBC) Count 9.4 thou/uL (4.8-10.8)
--- NOTE | 2018-09-11 14:46 | PRG ---
DATE OF SERVICE: 09/11/2018 SUBJECTIVE: Stephani Knight is in no distress. Again, he says he feels a little bit better than day before. OBJECTIVE: VITAL SIGNS: He is afebrile. Blood pressure 134/72, heart rate 72. He has not been febrile. LUNGS: Clear. HEART: Regular rhythm. ABDOMEN: Soft. LABORATORY DATA: White count 9.4, hemoglobin 9.5, platelets 187. Sodium 145, potassium 4, chloride 117, bicarb 18, BUN 34, and creatinine 1.52. Creatinine was 1.52 yesterday. I discussed the case with his powder mixer, Dr. Barney. He feels that steroid dosing is appropriate. He has recommended that he start back on his immunotherapy. We do not have this on formulary, so he will call his sister and ask her to bring this up. Cultures remain negative. Urine culture showed Shandra. He really should have his [place] out and begin voiding without that that can be treated most likely with one dose of fluconazole. Dr. Nickerson was consulted. We will await his input. I would avoid vancomycin given his elevated creatinine. His left shift today has improved. We will continue to follow. He is currently being followed by Cardiology. 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 He has not had any signs or symptoms or echocardiogram findings of pericarditis. Job ID: [id number]
--- NOTE | 2018-09-11 16:29 | PDOC.PN ---
- Subjective Encounter Start Date: 09/11/18 Encounter Start Time: 10:30 Subjective: pt up in bed no complains - Objective Resuscitation Status - Order Detail: 09/07/18 14:27 Resuscitation Status Routine Resuscitation Status: FULL: Full Resuscitation Vital Signs & Weight: Vital Signs (12 hours) Temp Pulse Pulse Pulse BP BP BP 09/11/18 16:00 96.5 F L 09/11/18 14:30 74 09/11/18 12:00 97.9 F 09/11/18 10:20 80 89 130/73 115/69 09/11/18 08:42 74 09/11/18 08:41 74 131/76 09/11/18 07:23 09/11/18 07:00 97.6 F Pulse Ox Pulse Ox Pulse Ox 09/11/18 16:00 09/11/18 14:30 09/11/18 12:00 09/11/18 10:20 98 95 09/11/18 08:42 09/11/18 08:41 09/11/18 07:23 100 09/11/18 07:00 Weight Weight 198 lb Most Recent Monitor Data Heart Rate from ECG 76 NIBP 143/73 NIBP BP-Mean 96 Respiration from ECG 25 SpO2 99 I&O: 09/10/18 09/11/18 09/12/18 06:59 06:59 06:59 Intake Total 3666 2215 600 Output Total 2050 5900 4325 Balance 7252 -6884 -8563 Result Diagrams: 09/11/18 09:58 09/11/18 09:58 Additional Labs: Accuchecks 09/11/18 09/11/18 09/10/18 15:46 06:55 20:18 POC Glucose 183 H 123 H 162 H 09/10/18 17:04 POC Glucose 160 H Phys Exam - Physical Examination Neck: no nodes, no JVD, supple, full ROM Respiratory: no wheezing, no rales, no rhonchi, wheezing present, clear to auscultation bilateral Cardiovascular: RRR, no significant murmur, no rub, gallop, irregular Gastrointestinal: soft, non-tender, no distention, positive bowel sounds Dx/Plan (1) Sepsis Code(s): A41.9 - SEPSIS, UNSPECIFIED ORGANISM Status: Acute (2) SVT (supraventricular tachycardia) Code(s): I47.1 - SUPRAVENTRICULAR TACHYCARDIA Status: Acute (3) Diabetes type 2, controlled Code(s): E11.9 - TYPE 2 DIABETES MELLITUS WITHOUT COMPLICATIONS Status: Chronic (4) Pneumonia Code(s): J18.9 - PNEUMONIA, UNSPECIFIED ORGANISM Status: Acute (5) Neck pain Code(s): M54.2 - CERVICALGIA Status: Acute (6) Leukocytosis Code(s): D72.829 - ELEVATED WHITE BLOOD CELL COUNT, UNSPECIFIED Status: Acute (7) Acute kidney failure Status: Acute - Plan spoke with cardio recommended to repeat echo in few months -: ID consulted for pt's leukocytosis and bandemia -: blood cx ordered pending -: pt on steroids * . Review of Systems - Review of Systems Respiratory: negative: Cough, Dry, Shortness of Breath, Hemoptysis, SOB with Excertion, Pleuritic Pain, Sputum, Wheezing Cardiovascular: negative: chest pain, palpitations, orthopnea, paroxysmal nocturnal dyspnea, edema, light headedness, other Gastrointestinal: negative: Nausea, Vomiting, Abdominal Pain, Diarrhea, Constipation, Melena, Hematochezia, Other Genitourinary: negative: Dysuria, Frequency, Incontinence, Hematuria, Retention , Other - Medications/Allergies Allergies/Adverse Reactions: Allergies Allergy/AdvReac Type Severity Reaction Status Date / Time vancomycin Allergy Verified 09/08/18 00:42 Medications: Current Medications Acetaminophen (Tylenol) 650 mg PO Q6H PRN PRN Reason: TEMP > 101 Last Admin: 09/08/18 01:59 Dose: 650 mg Hydrocodone Bitart/Acetaminophen ([place] 7.5/325) 1 tab PO Q4H PRN PRN Reason: Mild Pain (1-3) Last Admin: 09/08/18 00:43 Dose: 1 tab Amoxicillin/Clavulanate Potassium (Augmentin) 875 mg PO 1100,2300 [facility] Last Admin: 09/11/18 10:55 Dose: 875 mg Atorvastatin Calcium (Lipitor) 40 mg PO QAM [facility] Last Admin: 09/11/18 08:42 Dose: 40 mg Cyclobenzaprine HCl (Flexeril) 10 mg PO TID PRN PRN Reason: Muscle Spasm Last Admin: 09/10/18 13:44 Dose: 10 mg Dextrose/Water (Dextrose 50%) 25 gm SLOW IVP PRN PRN PRN Reason: Hypoglycemia Digoxin (Lanoxin) 0.25 mg PO DAILY [facility] Last Admin: 09/11/18 08:42 Dose: 0.25 mg Ezetimibe (Zetia) 10 mg PO QAM [facility] Last Admin: 09/11/18 08:42 Dose: 10 mg Famotidine (Pepcid) 20 mg PO BID [facility] Last Admin: 09/11/18 08:42 Dose: 20 mg Ferrous Sulfate (Feosol) 325 mg PO BID [facility] Last Admin: 09/11/18 08:42 Dose: 325 mg Folic Acid (Folvite) 1 mg PO DAILY [facility] Last Admin: 09/11/18 08:42 Dose: 1 mg Glucagon (Glucagon) 1 mg IM PRN PRN PRN Reason: Hypoglycemia Guaifenesin/Codeine Phosphate (Robitussin Ac) 10 ml PO Q6H PRN PRN Reason: Cough Last Admin: 09/10/18 05:59 Dose: 10 ml Hydralazine HCl (Apresoline) 10 mg PO TID [facility] Last Admin: 09/11/18 14:30 Dose: 10 mg Dextrose/Water (D5w) 1,000 mls @ 0 mls/hr IV .Q0M PRN PRN Reason: Hypoglycemia Insulin Glargine 10 units/ (Miscellaneous Medication) 0.1 mls @ 0 mls/hr SC QAM [facility] Last Admin: 09/11/18 08:44 Dose: 0.1 mls Sodium Chloride (Normal Saline 0.9%) 1,000 mls @ 0 mls/hr IV .Q0M [facility] Insulin Human Lispro (Humalog) 0 units SC .MILD SLIDING SCALE PRN PRN Reason: Mild Correctional Scale Last Admin: 09/11/18 15:53 Dose: 2 unit Methylprednisolone Sodium Succinate (Solu-Medrol) 20 mg IVP Q12HR [facility] Last Admin: 09/11/18 08:42 Dose: 20 mg Rivaroxaban (Xarelto) 10 mg PO DAILY [facility] Last Admin: 09/11/18 08:42 Dose: 10 mg Saccharomyces Boulardii (Florastor) 250 mg PO DAILY [facility] Last Admin: 09/11/18 08:42 Dose: 250 mg Sodium Chloride (Flush - Normal Saline) 10 ml IVF Q12HR [facility] Last Admin: 09/11/18 08:46 Dose: 10 ml Sodium Chloride (Flush - Normal Saline) 10 ml IVF PRN PRN PRN Reason: Saline Flush Tamsulosin HCl (Flomax) [facility] [place] Last Admin: 09/11/18 08:42 Dose: 0.4 mg Tramadol HCl (Ultram) 50 mg PO TID PRN PRN Reason: Pain
--- NOTE | 2018-09-11 18:55 | CON ---
DATE OF CONSULTATION: 09/11/2018 REASON FOR CONSULTATION: Possible sepsis. HISTORY OF PRESENT ILLNESS: A 58-year-old, whom I had seen last year in January when he presented with history of type 2 diabetes, hypertension, prior C-spine fusion with residual weakness in extremity, and recurring episodes of febrile illnesses with negative cultures in the past, which failed antimicrobial therapy and resolved with corticosteroids. After an extensive workup, he was given a diagnosis of Still disease associated with rheumatoid arthritis and has been treated over the past few months with Anakinra and steroids with marked improvement in symptoms. On September 01, 2018, he was admitted with nausea, vomiting, and diarrhea. The patient had Clostridium difficile in stool, which was negative. His stool culture was normal. Two sets of blood cultures were normal. The patient was discharged with a diagnosis of acute kidney insufficiency, gastroenteritis, and possible UTI. He was sent home on anakinra, insulin, prednisone, Januvia, Flomax, tramadol, and ciprofloxacin. During this hospital period, he did not receive his dose of anakinra any of the days he was in the hospital. Now, he presents with worsening pain in the neck and shoulders and hands swelling. I did not identify any fever. He did have some shortness of breath, heaviness of chest. No headaches. No sore throat, odynophagia, or dysphagia. No chest pain. No abdominal pain. No diarrhea anymore. No genitourinary symptoms. No skin disorder. No neurological symptoms. PAST MEDICAL HISTORY: Adult Still disease/rheumatoid arthritis, on anakinra and low-dose steroids, prior thromboembolism with DVT, type 2 diabetes, hyperlipidemia, and hypertension. PAST SURGICAL HISTORY: Cholecystectomy, left shoulder and C-spine fusion. ALLERGIES: NONE. SOCIAL HISTORY: Never smoker. Lives with mother. FAMILY HISTORY: Coronary artery disease and type 2 diabetes. CURRENT MEDICATIONS: 1. Augmentin. 2. Lipitor. 3. Flexeril. 4. Dextrose. 5. Lanoxin. 6. Zetia. 7. Pepcid. 8. Folvite. 9. Glucagon. 10. Insulin. 11. Methylprednisolone 20 mg q.12. 12. Florastor. 13. Tramadol. PHYSICAL EXAMINATION: VITAL SIGNS: T-max 103 on arrival, he has been afebrile since, blood pressure 130/72, pulse is 82, respirations 18, O2 saturation 97%. SKIN: No significant lesions. Some peripheral IV access. The patient is urinating through a Napier catheter, which was inserted on admission this time. No lymphadenopathy. Ocular movements conjugate. Sclerae white. Pupils are equal. Conjunctivae normal. Oral cavity without thrush. The patient has dentures. NECK: Neck with improvement in pain, little bit of stiffness, but normal range of motion. LUNGS: Symmetric, better breath sounds with faint basilar crackles. No wheezing. HEART: S1 and S2. Regular rate. No S3 or S4. ABDOMEN: Soft. Diminished heart sounds. No organomegaly. No ascites or bladder distention. EXTREMITIES: The patient has swollen joints and hands with decreased ability to flex hands, knees, ankles, and feet. Joints appear to be okay. Pulses 1+ in dorsalis pedis and popliteals. Limitations of movement due to his arthropathy in the upper extremities mostly, cognitive function appears to be intact. LABORATORY DATA: White cell count is 11.5, down to 9.4, hemoglobin is 9.5, platelets 187, with 78% neutrophils, 6% monocytes. PH 7.39, pCO2 of 21, PO2 of 58. Creatinine was 0.88 on September 07 and now is 1.52. AST 20, ALT 14, alkaline phosphatase 73, bilirubin 0.7. BNP 1875, albumin 2.8, cortisol 1.3, globulin 3.1. Urinalysis with 4 to 6 wbc's. IMAGING STUDIES: We have included chest x-ray from the with bibasilar infiltrates. The chest thorax CTA with small bilateral pleural effusions, cardiomegaly. No pulmonary embolism noted. Some mediastinal lymph nodes. Dr. Munoz did not feel that they appeared pathologic. Renal ultrasound from a few days ago, which showed no hydronephrosis, nonspecific urinary bladder wall thickening, and an echocardiogram done on the , which showed marked reduction in ejection fraction down to 10% to 15% compared to 60% just a few months ago and [id number] tricuspid regurgitation. ASSESSMENT: 1. Adult Still disease/rheumatoid arthritis, on anakinra/prednisone. 2. Recent admission with gastroenteritis, which improved. 3. Brief interruption of anakinra during the hospital stay and now resumption. 4. Fever with worsening arthralgias. DISCUSSION: Differential diagnosis includes recrudescence of the autoimmune disease associated with recent discontinuation of anakinra and tapering of steroids versus an infectious complication. Anakinra is an interleukin-1 inhibitor and it can be associated with certain opportunistic infections including mycobacterial, fungal, and viral. His recent episode of gastroenteritis might have been an episode of norovirus infection. At this point, we will submit testing for opportunistic infections. If it turns out to be negative and blood cultures remain negative, then would assume that this is just a recrudescence of his underlying connective tissue disorder. Job ID: [id number]
[2018-09-11] MEDS: Cyclobenzaprine 10 MG TAB PO PRN (20:24)
--- NOTE | 2018-09-11 20:39 | PDOC.CTH ---
Cardiology Progress Note - Subjective Doing better every day. No chest pain, tightness, pressure. - Objective Vital Signs Temp Pulse Pulse Pulse BP BP BP 09/11/18 20:15 74 149/82 H 09/11/18 18:32 09/11/18 16:00 96.5 F L 09/11/18 14:30 74 09/11/18 12:00 97.9 F 09/11/18 10:20 80 89 130/73 115/69 09/11/18 08:42 74 09/11/18 08:41 74 131/76 Pulse Ox Pulse Ox Pulse Ox 09/11/18 20:15 09/11/18 18:32 94 L 09/11/18 16:00 09/11/18 14:30 09/11/18 12:00 09/11/18 10:20 98 95 09/11/18 08:42 09/11/18 08:41 Weight 198 lb 09/10/18 09/11/18 09/12/18 06:59 06:59 06:59 Intake Total 3666 2215 932 Output Total 6622 3070 5150 Balance 3846 -4494 -5281 - Physical Examination General/Neuro: alert & oriented x3, NAD Neck: no JVD present Lungs: unlabored respirations Heart: RRR Abdomen: NT/ND Extremities: + edema B (1+) - Telemetry Telemetry Rhythm: NSR - Labs Result Diagrams: 09/12/18 05:00 09/12/18 05:00 Troponin/CKMB Troponin I 0.015 ng/mL (< 0.028) 09/07/18 21:45 - Assessment/Plan 1. Severe dilated CM EF at 10-15% 2. Acute on chronic systolic heart failure 3. No SVT seen. It was sinus tachycardia in the ER. 4. Possible myocarditis from Still disease. 5. Relative adrenal insufficiency. PLAN: - Continue high dose steroids. - Will start guideline directed medical therapy for CHF once more stable. - Just weaned off pressors today. - Possible infection per primary team. - Will repeat echo before discharge to see if Lifevest is needed.
[2018-09-12 05:48] LABS: Hemoglobin 9.7 g/dL (14.0-18.0); Mean Corpuscular HGB CONC 30.9 g/dL (32.0-36.0); Mean Corpuscular Hemoglobin 28.5 pg (27.0-31.0); Mean Corpuscular Volume 92.3 fL (78.0-98.0); Mean Platelet Volume 9.6 fL (7.4-10.4); Platelet Count 197 thou/uL (130-400); RBC Distribution Width 17.9 % (11.5-14.5); Red Blood Cell (RBC) Count 3.39 mill/uL (4.70-6.10); White Blood Cell (WBC) Count 7.9 thou/uL (4.8-10.8)
[2018-09-12 05:49] LABS: Anion Gap 12 mmol/L (10-20); BUN (Urea Nitrogen) 32 mg/dL (8.4-25.7); Calc. Creatinine Clearance 76 mL/min (70-130); Carbon Dioxide 22 mmol/L (22-29); Chloride 111 mmol/L (98-107); Estimated GFR-MDRD 66; Glucose 163 mg/dL (70-105); Potassium 3.7 mmol/L (3.5-5.1); Sodium 141 mmol/L (136-145)
[2018-09-12 06:10] LABS: Band 7 % (5-11); Lymphocytes 30 % (21-51); MDiff Complete? YES; Monocytes 1 % (0-10); Neutrophil 62 % (42-75)
[2018-09-12] MEDS: Famotidine 20 MG TAB PO SCH ×2 (08:36→20:42)
[2018-09-12] MEDS: Digoxin 0.25 MG TAB PO SCH (08:36)
[2018-09-12] MEDS: Saccharomyces boulardii 250 MG CAP PO SCH (08:36)
[2018-09-12] MEDS: Insulin Glargine 10 UNITS in Pre-Filled Syringe 1 EACH SC SCH (08:36)
[2018-09-12] MEDS: hydrALAZINE 10 MG TAB PO SCH ×3 (08:36→20:40)
[2018-09-12] MEDS: Ezetimibe 10 MG TAB PO SCH (08:37)
[2018-09-12] MEDS: Folic Acid 1 MG TAB PO SCH (08:37)
[2018-09-12] MEDS: Atorvastatin Calcium 40 MG TAB PO SCH (08:37)
[2018-09-12] MEDS: Tamsulosin HCl 0.4 MG CAP PO SCH (08:37)
[2018-09-12] MEDS: Ferrous Sulfate 325 MG TAB PO SCH ×2 (08:37→20:42)
[2018-09-12] MEDS: Rivaroxaban 10 MG TAB PO SCH (08:41)
[2018-09-12] MEDS: HumaLOG 300 UNITS/3 ML VIAL SC PRN ×2 (10:49→16:00)
[2018-09-12] MEDS: Amoxicillin/Potassium Clav 875 MG TAB PO SCH ×2 (10:51→22:28)
--- NOTE | 2018-09-12 12:44 | PDOC.CTH ---
Cardiology Progress Note - Subjective He is doing better. Still very weak. Working with PT but he feels to weak to stand up for too long, let alone walk. - Objective Vital Signs Temp Pulse BP Pulse Ox 09/12/18 12:00 97.5 F L 09/12/18 08:36 74 124/69 09/12/18 07:13 100 09/12/18 07:00 99.1 F 09/12/18 03:00 98.2 F Weight 198 lb 09/11/18 09/12/18 09/13/18 06:59 06:59 06:59 Intake Total 2215 1052 240 Output Total 5900 9340 350 Balance -3685 -8288 -110 - Physical Examination General/Neuro: alert & oriented x3, NAD Neck: no JVD present Lungs: CTA, unlabored respirations Heart: RRR Abdomen: NT/ND Extremities: + edema B (2+) - Telemetry Telemetry Rhythm: NSR - Labs Result Diagrams: 09/12/18 05:00 09/12/18 05:00 Troponin/CKMB Troponin I 0.015 ng/mL (< 0.028) 09/07/18 21:45 - Assessment/Plan 1. Severe dilated CM EF at 10-15% 2. Acute on chronic systolic heart failure 3. No SVT seen. It was sinus tachycardia in the ER. 4. Possible myocarditis from Still disease. 5. Relative adrenal insufficiency. PLAN: - Continue high dose steroids. - Will start guideline directed medical therapy for CHF today. - Possible infection per primary team. - Will repeat echo before discharge to see if Lifevest is needed.
[2018-09-12] MEDS ORDERED: ANAKINRA SC SCH (13:00)
[2018-09-12] MEDS: Carvedilol 3.125 MG TAB PO SCH (16:56)
--- NOTE | 2018-09-12 17:53 | PRG ---
DATE OF SERVICE: 09/12/2018 SUBJECTIVE: Stephani Knight's heart rate in 70s, blood pressure 101/66. He is in no distress. He has not been febrile since admission. His temperature on admission was 103. Microbiology cultures remain negative. Cultures from the 20th were negative at 48 hours. OBJECTIVE: LUNGS: Clear. HEART: Regular rhythm. S1 and S2 are normal. ABDOMEN: Soft and nontender. EXTREMITIES: Without clubbing, cyanosis, or edema. LABORATORY DATA: White count 7.9, hemoglobin 9.7, platelets 197. He only has 7 % bands on his peripheral smear. Sodium 141, potassium 3.7, chloride 111, bicarb 22, BUN 32, creatinine 1.34. IMPRESSION AND PLAN: Hypotension, requiring pressors on admission,there definitely was a component of adrenal crisis. I talked to Dr. Barney again today. He told me that Mr. Knight was instructed to remain on prednisone, but he denies being on prednisone when he came. Dr. Barney relayed some concerns about Mr. Knight's compliance with medications as well. Ferritin is fairly reliable inflammatory marker for what he has and ferritin levels at the clinic were less than 1000 and his ferritin level today is 8726. He has been as high as 21,000 two days ago. We will continue with steroids. 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 He is stable to move out of the critical care unit to a monitored bed. He may end up with a LifeVest if his echocardiogram did not improve. Dr. Barney recommended that we restart his Kineret. He was instructed yesterday to call his sister to bring that up here, but he did not. We have again asked him to call her and I have told him we will provide him with a phone. Job ID: [id number] [facility]
--- NOTE | 2018-09-12 20:00 | PDOC.PN ---
- Subjective Encounter Start Date: 09/12/18 Encounter Start Time: 10:15 Subjective: pt up in bed feels well - Objective Resuscitation Status - Order Detail: 09/07/18 14:27 Resuscitation Status Routine Resuscitation Status: FULL: Full Resuscitation Vital Signs & Weight: Vital Signs (12 hours) Temp Pulse Pulse Pulse Resp BP BP 09/12/18 19:39 98.3 F 67 17 09/12/18 14:38 74 101/66 09/12/18 13:26 81 100 101/66 09/12/18 12:00 97.5 F L 09/12/18 08:36 74 124/69 BP BP Pulse Ox 09/12/18 19:39 117/62 96 09/12/18 14:38 09/12/18 13:26 177/101 H 09/12/18 12:00 09/12/18 08:36 Weight Weight 198 lb Most Recent Monitor Data Heart Rate from ECG 72 NIBP 131/76 NIBP BP-Mean 94 Respiration from ECG 19 SpO2 98 I&O: 09/11/18 09/12/18 09/13/18 06:59 06:59 06:59 Intake Total 2215 1052 960 Output Total 5900 9340 1950 [facility] -3685 -8288 -990 Result Diagrams: 09/12/18 05:00 09/12/18 05:00 Additional Labs: Accuchecks 09/12/18 09/12/18 09/11/18 15:51 10:48 20:14 POC Glucose 231 H 219 H 215 H Phys Exam - Physical Examination Respiratory: no wheezing, no rales, no rhonchi, wheezing present, clear to auscultation bilateral Cardiovascular: RRR, no significant murmur, no rub, gallop, irregular Gastrointestinal: soft, non-tender, no distention, positive bowel sounds Musculoskeletal: no edema, pulses present, edema present Dx/Plan (1) Sepsis Code(s): A41.9 - SEPSIS, UNSPECIFIED ORGANISM Status: Acute (2) SVT (supraventricular tachycardia) Code(s): I47.1 - SUPRAVENTRICULAR TACHYCARDIA Status: Acute (3) Diabetes type 2, controlled Code(s): E11.9 - TYPE 2 DIABETES MELLITUS WITHOUT COMPLICATIONS Status: Chronic (4) Pneumonia Code(s): J18.9 - PNEUMONIA, UNSPECIFIED ORGANISM Status: Acute (5) Neck pain Code(s): M54.2 - CERVICALGIA Status: Acute (6) Leukocytosis Code(s): D72.829 - ELEVATED WHITE BLOOD CELL COUNT, UNSPECIFIED Status: Acute (7) Acute kidney failure Status: Acute - Plan will move pt out of ccu -: pt's vitals stable -: on abx, cx negative. will monitor. * . Review of Systems - Review of Systems Cardiovascular: negative: chest pain, palpitations, orthopnea, paroxysmal nocturnal dyspnea, edema, light headedness, other Gastrointestinal: negative: Nausea, Vomiting, Abdominal Pain, Diarrhea, Constipation, Melena, Hematochezia, Other Genitourinary: negative: Dysuria, Frequency, Incontinence, Hematuria, Retention , Other - Medications/Allergies Allergies/Adverse Reactions: Allergies Allergy/AdvReac Type Severity Reaction Status Date / Time vancomycin Allergy Verified 09/08/18 00:42 Medications: Current Medications Acetaminophen (Tylenol) 650 mg PO Q6H PRN PRN Reason: TEMP > 101 Last Admin: 09/08/18 01:59 Dose: 650 mg Hydrocodone Bitart/Acetaminophen ([place] 7.5/325) 1 tab PO Q4H PRN PRN Reason: Mild Pain (1-3) Last Admin: 09/08/18 00:43 Dose: 1 tab Amoxicillin/Clavulanate Potassium (Augmentin) 875 mg PO 1100,2300 [facility] Last Admin: 09/12/18 10:51 Dose: 875 mg Atorvastatin Calcium (Lipitor) [facility] [place] Last Admin: 09/12/18 08:37 Dose: 40 mg Carvedilol (Coreg) 3.125 mg PO BID-[facility] Last Admin: 09/12/18 16:56 Dose: 3.125 mg Cyclobenzaprine HCl (Flexeril) 10 mg PO TID PRN PRN Reason: Muscle Spasm Last Admin: 09/11/18 20:24 Dose: 10 mg Dextrose/Water (Dextrose 50%) 25 gm SLOW IVP PRN PRN PRN Reason: Hypoglycemia Digoxin (Lanoxin) 0.25 mg PO DAILY [facility] Last Admin: 09/12/18 08:36 Dose: 0.25 mg Ezetimibe (Zetia) [facility] [place] Admin: 09/12/18 08:37 Dose: 10 mg Famotidine (Pepcid) 20 mg PO BID [facility] Last Admin: 09/12/18 08:36 Dose: 20 mg Ferrous Sulfate (Feosol) 325 mg PO BID [facility] Last Admin: 09/12/18 08:37 Dose: 325 mg Folic Acid (Folvite) 1 mg PO DAILY [facility] Last Admin: 09/12/18 08:37 Dose: 1 mg Glucagon (Glucagon) 1 mg IM PRN PRN PRN Reason: Hypoglycemia Guaifenesin/Codeine Phosphate (Robitussin Ac) 10 ml PO Q6H PRN PRN Reason: Cough Last Admin: 09/10/18 05:59 Dose: 10 ml Hydralazine HCl (Apresoline) 10 mg PO TID [facility] Last Admin: 09/12/18 14:38 Dose: 10 mg Dextrose/Water (D5w) 1,000 mls @ 0 mls/hr IV .Q0M PRN PRN Reason: Hypoglycemia Insulin Glargine 10 units/ (Miscellaneous Medication) 0.1 mls @ 0 mls/hr SC QAM [facility] Last Admin: 09/12/18 08:36 Dose: 0.1 mls Sodium Chloride (Normal Saline 0.9%) 1,000 mls @ 0 mls/hr IV .Q0M [facility] Insulin Human Lispro (Humalog) 0 units SC .MILD SLIDING SCALE PRN PRN Reason: Mild Correctional Scale Last Admin: 09/12/18 16:00 Dose: 3 unit Methylprednisolone Sodium Succinate (Solu-Medrol) 20 mg IVP Q12HR [facility] Last Admin: 09/12/18 08:35 Dose: 20 mg Anakinra (Kineret) 100 Mg/0.67 Ml Syringe 0 each SC DAILY [facility] Rivaroxaban (Xarelto) 10 mg PO DAILY [facility] Last Admin: 09/12/18 08:41 Dose: 10 mg Saccharomyces Boulardii (Florastor) 250 mg PO DAILY [facility] Last Admin: 09/12/18 08:36 Dose: 250 mg Sodium Chloride (Flush - Normal Saline) 10 ml IVF Q12HR [facility] Last Admin: 09/12/18 08:35 Dose: 10 ml Sodium Chloride (Flush - Normal Saline) 10 ml IVF PRN PRN PRN Reason: Saline Flush Tamsulosin HCl (Flomax) 0.4 mg PO QAM [facility] Last Admin: 09/12/18 08:37 Dose: 0.4 mg Tramadol HCl (Ultram) 50 mg PO TID PRN PRN Reason: Pain
[2018-09-13] MEDS: HumaLOG 300 UNITS/3 ML VIAL SC PRN ×3 (06:48→17:00)
[2018-09-13] MEDS: Digoxin 0.25 MG TAB PO SCH (08:53)
[2018-09-13] MEDS: Ezetimibe 10 MG TAB PO SCH (08:53)
[2018-09-13] MEDS: Folic Acid 1 MG TAB PO SCH (08:54)
[2018-09-13] MEDS: Tamsulosin HCl 0.4 MG CAP PO SCH (08:54)
[2018-09-13] MEDS: Ferrous Sulfate 325 MG TAB PO SCH ×2 (08:54→20:31)
[2018-09-13] MEDS: Rivaroxaban 10 MG TAB PO SCH (08:54)
[2018-09-13] MEDS: Atorvastatin Calcium 40 MG TAB PO SCH (08:55)
[2018-09-13] MEDS: Saccharomyces boulardii 250 MG CAP PO SCH (08:55)
[2018-09-13] MEDS: Carvedilol 3.125 MG TAB PO SCH ×2 (08:55→16:57)
[2018-09-13] MEDS: hydrALAZINE 10 MG TAB PO SCH ×2 (08:55→16:57)
[2018-09-13] MEDS: Famotidine 20 MG TAB PO SCH ×2 (08:55→20:31)
[2018-09-13] MEDS: Insulin Glargine 15 UNITS in Pre-Filled Syringe 1 EACH SC SCH (09:26)
[2018-09-13] MEDS: Amoxicillin/Potassium Clav 875 MG TAB PO SCH ×2 (11:21→23:19)
[2018-09-13] MEDS: ANAKINRA SC SCH (14:02)
--- NOTE | 2018-09-13 14:30 | PRG ---
DATE OF SERVICE: 09/13/2018 SUBJECTIVE: Stephani Knight has no complaints. Plan to switch him to prednisone today as per my discussion with his first assist, Dr. Barney. We will continue him on 20 mg twice a day. He has no complaints. He is feeling well. He denies shortness of breath. OBJECTIVE: LUNGS: Clear. HEART: Regular rhythm. ABDOMEN: Soft. I cannot tell from reviewing the MAR whether or not he started back on his Kineret. Dr. Barney recommended that we do this couple of days ago and he was trying to get his sister to bring it in, I will investigate this further. LABORATORY DATA: White count 7.9, hemoglobin 9.7, platelets 197 yesterday, there is no CBC today. No electrolytes today. IMPRESSION: 1. Status post presentation with severe hypotension requiring pressors. As mentioned before, this is in part adrenal crisis. 2. Newly diagnosed cardiomyopathy. At this point, it is presumed related to his Still disease. I had a long discussion yesterday with Dr. Barney, and apparently, Mr. Knight was not supposed to taper off his prednisone. Dr. Barney informed me that there had been compliance issues with Mr. Knight when he has been followed up in the office, which might explain his deterioration. He is clinically stable at this point in time. Job ID: [id number]
[2018-09-13] MEDS: predniSONE 20 MG TAB PO SCH (16:57)
--- NOTE | 2018-09-13 17:56 | PDOC.CTH ---
Cardiology Progress Note - Subjective Slowly improving every day. - Objective Vital Signs Temp Pulse Pulse Pulse Resp BP BP 09/13/18 16:57 70 09/13/18 15:27 98.4 F 70 16 09/13/18 10:43 77 75 116/60 112/57 L 09/13/18 10:38 97.6 F 74 16 09/13/18 08:55 73 09/13/18 08:53 73 09/13/18 08:00 09/13/18 07:15 98.4 F 73 16 BP Pulse Ox Pulse Ox Pulse Ox 09/13/18 16:57 09/13/18 15:27 116/62 09/13/18 10:43 99 99 09/13/18 10:38 112/57 L 95 09/13/18 08:55 09/13/18 08:53 09/13/18 08:00 97 09/13/18 07:15 142/66 H 96 Weight 198 lb 09/12/18 09/13/18 09/14/18 06:59 06:59 06:59 Intake Total 1052 1390 Output Total 9340 4750 650 Balance -8288 -3360 -650 - Physical Examination General/Neuro: alert & oriented x3, NAD Neck: no JVD present Lungs: unlabored respirations Heart: RRR Abdomen: NT/ND Extremities: other: (no edema) - Telemetry Telemetry Rhythm: NSR - Labs Result Diagrams: 09/12/18 05:00 09/12/18 05:00 Troponin/CKMB Troponin I 0.015 ng/mL (< 0.028) 09/07/18 21:45 - Assessment/Plan 1. Severe dilated CM EF at 10-15% 2. Acute on chronic systolic heart failure 3. No SVT seen. It was sinus tachycardia in the ER. 4. Possible myocarditis from Still disease. 5. Relative adrenal insufficiency. 6. Elevated ferritin level, acute phase reaction? PLAN: - On BB - Will stop hydralazine and will start ACEI. - Will re check echo see were is LV function is. - Lifevest before discharge if EF remains under 35%.
[2018-09-14] MEDS: HumaLOG 300 UNITS/3 ML VIAL SC PRN ×4 (06:13→21:35)
--- NOTE | 2018-09-14 07:40 | PDOC.PN ---
- Subjective Encounter Start Date: 09/13/18 Encounter Start Time: 11:15 Subjective: pt up in chair feels better no complains - Objective Resuscitation Status - Order Detail: 09/07/18 14:27 Resuscitation Status Routine Resuscitation Status: FULL: Full Resuscitation Vital Signs & Weight: Vital Signs (12 hours) Temp Pulse Resp BP Pulse Ox 09/14/18 03:59 98.3 F 70 18 148/103 H 100 09/13/18 23:59 98.1 F 61 12 170/87 H 100 09/13/18 20:00 98 09/13/18 19:58 98.1 F 60 18 142/66 H 100 Weight Weight 198 lb Most Recent Monitor Data Heart Rate from ECG 72 NIBP 131/76 NIBP BP-Mean 94 Respiration from ECG 19 SpO2 98 I&O: 09/13/18 09/14/18 09/15/18 06:59 06:59 06:59 Intake Total 1390 450 Output Total 4750 3400 Balance -3360 -2950 Result Diagrams: 09/12/18 05:00 09/12/18 05:00 Additional Labs: Accuchecks 09/13/18 09/13/18 09/13/18 20:22 16:32 10:27 POC Glucose 312 H 252 H 295 H Phys Exam - Physical Examination Neck: no nodes, no JVD, supple, full ROM Respiratory: no wheezing, no rales, no rhonchi, wheezing present, clear to auscultation bilateral Cardiovascular: RRR, no significant murmur, no rub, gallop, irregular Gastrointestinal: soft, non-tender, no distention, positive bowel sounds Dx/Plan (1) Sepsis Code(s): A41.9 - SEPSIS, UNSPECIFIED ORGANISM Status: Acute (2) SVT (supraventricular tachycardia) Code(s): I47.1 - SUPRAVENTRICULAR TACHYCARDIA Status: Acute (3) Diabetes type 2, controlled Code(s): E11.9 - TYPE 2 DIABETES MELLITUS WITHOUT COMPLICATIONS Status: Chronic (4) Pneumonia Code(s): J18.9 - PNEUMONIA, UNSPECIFIED ORGANISM Status: Acute (5) Neck pain Code(s): M54.2 - CERVICALGIA Status: Acute (6) Leukocytosis Code(s): D72.829 - ELEVATED WHITE BLOOD CELL COUNT, UNSPECIFIED Status: Acute (7) Acute kidney failure Status: Acute - Plan pt will need lifevest -: repeat echo per cardiology -: on iv steroids taper per pulm -: on abx prophylactic * . Review of Systems - Review of Systems Respiratory: negative: Cough, Dry, Shortness of Breath, Hemoptysis, SOB with Excertion, Pleuritic Pain, Sputum, Wheezing Cardiovascular: negative: chest pain, palpitations, orthopnea, paroxysmal nocturnal dyspnea, edema, light headedness, other Gastrointestinal: negative: Nausea, Vomiting, Abdominal Pain, Diarrhea, Constipation, Melena, Hematochezia, Other - Medications/Allergies Allergies/Adverse Reactions: Allergies Allergy/AdvReac Type Severity Reaction Status Date / Time vancomycin Allergy Verified 09/08/18 00:42 Medications: Current Medications Acetaminophen (Tylenol) 650 mg PO Q6H PRN PRN Reason: TEMP > 101 Last Admin: 09/08/18 01:59 Dose: 650 mg Hydrocodone Bitart/Acetaminophen ([place] 7.5/325) 1 tab PO Q4H PRN PRN Reason: Mild Pain (1-3) Last Admin: 09/08/18 00:43 Dose: 1 tab Amoxicillin/Clavulanate Potassium (Augmentin) 875 mg PO 1100,2300 [facility] Last Admin: 09/13/18 23:19 Dose: 875 mg Atorvastatin Calcium (Lipitor) 40 mg PO QAM [facility] Last Admin: 09/13/18 08:55 Dose: 40 mg Carvedilol (Coreg) 3.125 mg PO BID-[facility] Last Admin: 09/13/18 16:57 Dose: 3.125 mg Cyclobenzaprine HCl (Flexeril) 10 mg PO TID PRN PRN Reason: Muscle Spasm Last Admin: 09/11/18 20:24 Dose: 10 mg Dextrose/Water (Dextrose 50%) 25 gm SLOW IVP PRN PRN PRN Reason: Hypoglycemia Ezetimibe (Zetia) 10 mg PO QAM [facility] Last Admin: 09/13/18 08:53 Dose: 10 mg Famotidine (Pepcid) 20 mg PO BID [facility] Last Admin: 09/13/18 20:31 Dose: 20 mg Ferrous Sulfate (Feosol) 325 mg PO BID [facility] Last Admin: 09/13/18 20:31 Dose: 325 mg Folic Acid (Folvite) 1 mg PO DAILY [facility] Last Admin: 09/13/18 08:54 Dose: 1 mg Glucagon (Glucagon) 1 mg IM PRN PRN PRN Reason: Hypoglycemia Guaifenesin/Codeine Phosphate (Robitussin Ac) 10 ml PO Q6H PRN PRN Reason: Cough Last Admin: 09/10/18 05:59 Dose: 10 ml Dextrose/Water (D5w) 1,000 mls @ 0 mls/hr IV .Q0M PRN PRN Reason: Hypoglycemia Sodium Chloride (Normal Saline 0.9%) 1,000 mls @ 0 mls/hr IV .Q0M [facility] Insulin Glargine 15 units/ (Miscellaneous Medication) 0.15 mls @ 0 mls/hr SC QAM [facility] Last Admin: 09/13/18 09:26 Dose: 0.15 mls Insulin Human Lispro (Humalog) 0 units SC .MILD SLIDING SCALE PRN PRN Reason: Mild Correctional Scale Last Admin: 09/14/18 06:13 Dose: 3 unit Lisinopril (Zestril) 2.5 mg PO DAILY [facility] Anakinra (Kineret) 100 Mg/0.67 Ml Syringe 0 each SC DAILY [facility] Last Admin: 09/13/18 14:02 Dose: 1 each Prednisone (Prednisone) 20 mg PO BID-[facility] Last Admin: 09/13/18 16:57 Dose: 20 mg Rivaroxaban (Xarelto) 10 mg PO DAILY [facility] Last Admin: 09/13/18 08:54 Dose: 10 mg Saccharomyces Boulardii (Florastor) 250 mg PO DAILY [facility] Last Admin: 09/13/18 08:55 Dose: 250 mg Sodium Chloride (Flush - Normal Saline) 10 ml IVF Q12HR [facility] Last Admin: 09/13/18 20:32 Dose: 10 ml Sodium Chloride (Flush - Normal Saline) 10 ml IVF PRN PRN PRN Reason: Saline Flush Tamsulosin HCl (Flomax) 0.4 mg PO QAM [facility] Last Admin: 09/13/18 08:54 Dose: 0.4 mg Tramadol HCl (Ultram) 50 mg PO TID PRN PRN Reason: Pain
[2018-09-14] MEDS: Carvedilol 3.125 MG TAB PO SCH ×2 (07:49→17:09)
[2018-09-14] MEDS: Lisinopril 2.5 MG TAB PO SCH (07:49)
[2018-09-14] MEDS ORDERED: predniSONE 20 MG TAB PO SCH (08:00)
[2018-09-14] MEDS: predniSONE 20 MG TAB PO SCH ×2 (08:04→17:09)
[2018-09-14] MEDS: Folic Acid 1 MG TAB PO SCH (08:04)
[2018-09-14] MEDS: ANAKINRA SC SCH (08:04)
[2018-09-14] MEDS: Ezetimibe 10 MG TAB PO SCH (08:04)
[2018-09-14] MEDS: Famotidine 20 MG TAB PO SCH ×2 (08:05→21:35)
[2018-09-14] MEDS: Saccharomyces boulardii 250 MG CAP PO SCH (08:05)
[2018-09-14] MEDS: Rivaroxaban 10 MG TAB PO SCH (08:05)
[2018-09-14] MEDS: Atorvastatin Calcium 40 MG TAB PO SCH (08:05)
[2018-09-14] MEDS: Ferrous Sulfate 325 MG TAB PO SCH ×2 (08:05→21:35)
[2018-09-14] MEDS: Tamsulosin HCl 0.4 MG CAP PO SCH (08:05)
[2018-09-14] MEDS: Insulin Glargine 15 UNITS in Pre-Filled Syringe 1 EACH SC SCH (08:27)
--- NOTE | 2018-09-14 08:33 | PDOC.CTH ---
Cardiology Progress Note - Subjective He feels well. - Objective Vital Signs Temp Pulse Resp BP Pulse Ox 09/14/18 07:49 87 09/14/18 07:44 97.4 F L 87 18 87/67 L 100 09/14/18 03:59 98.3 F 70 18 148/103 H 100 09/13/18 23:59 98.1 F 61 12 170/87 H 100 Weight 198 lb 09/13/18 09/14/18 09/15/18 06:59 06:59 06:59 Intake Total 1390 450 Output Total 4750 3400 Balance -3360 -2950 - Physical Examination General/Neuro: alert & oriented x3, NAD Neck: no JVD present Lungs: CTA, unlabored respirations Heart: RRR Abdomen: NT/ND Extremities: + edema B (1+) - Telemetry Telemetry Rhythm: NSR - Labs Result Diagrams: 09/12/18 05:00 09/12/18 05:00 Troponin/CKMB Troponin I 0.015 ng/mL (< 0.028) 09/07/18 21:45 - Assessment/Plan 1. Severe dilated CM EF at 10-15% 2. Acute on chronic systolic heart failure 3. No SVT seen. It was sinus tachycardia in the ER. 4. Possible myocarditis from Still disease. 5. Relative adrenal insufficiency. 6. Elevated ferritin level, acute phase reaction? PLAN: - BP low this morning. Will hold CHF meds for now. - Repeat echo pending today. - Lifevest before discharge if EF remains under 35%.
[2018-09-14] MEDS: Amoxicillin/Potassium Clav 875 MG TAB PO SCH ×2 (11:50→21:35)
--- NOTE | 2018-09-14 19:22 | PRG ---
DATE OF SERVICE: 09/14/2018 SUBJECTIVE: He is in no distress. He has no complaints. He looks better today everyday. His sister was in the room and I answered all of her questions. OBJECTIVE: VITAL SIGNS: He is afebrile, heart rate 77, respiratory rate 16, oximetry is 100% on room air, and blood pressure 130/58. LUNGS: Clear. HEART: Regular rhythm. S1 and S2 are normal. ABDOMEN: Soft and nontender. EXTREMITIES: Without clubbing, cyanosis, or edema. LABORATORY DATA: White count 7.9, hemoglobin 9.7, and platelets 197. Glucose has been between 200 and 300. IMPRESSION: 1. Cardiomyopathy for repeat echo today, felt to be possibly related to Still's disease. 2. Adrenal crisis with no clinical evidence of sepsis. 3. Underlying Still's disease. 4. ? marginal medical compliance from my discussion with Dr. Barney. He says he always takes his medicines, but Dr. Barney informed me should have been on steroids when he came in. 5. Tachycardia, on admission that was a sinus tachycardia. The notes reflect that he had supraventricular tachycardia, but he did not. He was cardioverted twice.He continued with the same rhythm and it was determined by Dr. Rosa that he had sinus tach and not supraventricular tachycardia. 6. Diabetes, aggravated by steroids. We will continue with steroids and his Kineret. He received an injection for the last 3 days including today. 7. History of deep vein thrombosis associated with a past hospitalization, not unprecipitated. He has been fully anticoagulated for a year. I have cut his anticoagulants to a prophylactic dose and would continue these for a year. 8. Lipid disorder. 9. Hypertension. 10. History of cholecystectomy. He is stable to move out of the intermediate care unit to the Telemetry Unit. We will see what today's echocardiogram shows. Job ID: [id number] [facility]
[2018-09-15] MEDS: HumaLOG 300 UNITS/3 ML VIAL SC PRN ×3 (06:13→17:11)
[2018-09-15] MEDS: Carvedilol 3.125 MG TAB PO SCH ×2 (10:12→17:11)
[2018-09-15] MEDS: Ferrous Sulfate 325 MG TAB PO SCH ×2 (10:12→21:26)
[2018-09-15] MEDS: predniSONE 20 MG TAB PO SCH ×2 (10:12→17:12)
[2018-09-15] MEDS: Ezetimibe 10 MG TAB PO SCH (10:12)
[2018-09-15] MEDS: Atorvastatin Calcium 40 MG TAB PO SCH (10:12)
[2018-09-15] MEDS: Folic Acid 1 MG TAB PO SCH (10:12)
[2018-09-15] MEDS: Lisinopril 2.5 MG TAB PO SCH (10:12)
[2018-09-15] MEDS: Famotidine 20 MG TAB PO SCH ×2 (10:13→21:26)
[2018-09-15] MEDS: Rivaroxaban 10 MG TAB PO SCH (10:13)
[2018-09-15] MEDS: Tamsulosin HCl 0.4 MG CAP PO SCH (10:13)
[2018-09-15] MEDS: Insulin Glargine 15 UNITS in Pre-Filled Syringe 1 EACH SC SCH (10:13)
[2018-09-15] MEDS: Saccharomyces boulardii 250 MG CAP PO SCH (10:16)
--- NOTE | 2018-09-15 11:23 | PRG ---
DATE OF SERVICE: 09/15/2018 SUBJECTIVE: Stephani Knight remains stable. We are awaiting review of his echocardiogram. His vital signs are stable. The only question to be answered at this point is whether or not, he will need a LifeVest or cardiac catheterization at some point. He will need to have his steroids tapered by Dr. Barney, as an outpatient. He will stay on his Kineret. We will continue to follow. Job ID: [id number]
[2018-09-15] MEDS: ANAKINRA SC SCH (11:43)
[2018-09-15] MEDS: Amoxicillin/Potassium Clav 875 MG TAB PO SCH ×2 (11:44→21:28)
--- NOTE | 2018-09-15 12:00 | PRG ---
DATE OF SERVICE: 09/14/2018 SUBJECTIVE: Feeling better. He is able to move extremities better. No respiratory symptoms or abdominal pain. No diarrhea. OBJECTIVE: VITAL SIGNS: Temperature max 98.4, BP 160/77, pulse 73, respirations 19, O2 saturation 100. GENERAL: Awake, oriented, follows commands, appears in no distress. LUNGS: Symmetric. Clear breath sounds. HEART: S1 and S2. Regular rate. ABDOMEN: Soft. Not distended. EXTREMITIES: Still with stiffness of joints noted previously, but better mobility. LABORATORY DATA: White cell count 9.4 and 7.9, hemoglobin 9.7, platelets 197. Last chemistries from the , creatinine was 1.34, which is a bit less than previously. Ferritin is down to 8700. CMV Ultraquant pending. Histoplasma antigen less than 0.5. Fungitell less than 31. Cultures, cryptococcus antigen negative. Blood culture, no growth at 48 hours. ASSESSMENT AND DISCUSSION: Adult Still disease/rheumatoid arthritis on anakinra and prednisone, recent admission of gastroenteritis which improved and then interruption of anakinra, now worsening fever with arthralgias, which have improved with resumption of the immunosuppressive agents. Looks like there was an element of adrenal crisis because of issues of compliance with corticosteroids. No evidence of infectious process at this time. Job ID: [id number]
[2018-09-15 12:16] LABS: CMV DNA-PCR Test Negative (Negative)
[2018-09-15] MEDS: HumaLOG 300 UNITS/3 ML VIAL SC SCH ×2 (13:03→17:11)
--- NOTE | 2018-09-15 14:34 | PDOC.PN ---
- Subjective Encounter Start Date: 09/14/18 Encounter Start Time: 01:15 Subjective: pt up in bed no complains - Objective Resuscitation Status - Order Detail: 09/07/18 14:27 Resuscitation Status Routine Resuscitation Status: FULL: Full Resuscitation Vital Signs & Weight: Vital Signs (12 hours) Temp Pulse Resp BP BP Pulse Ox 09/15/18 10:12 73 137/63 09/15/18 02:44 97.1 F L 73 19 164/77 H 100 Weight Weight 162 lb 12.8 oz Most Recent Monitor Data Heart Rate from ECG 72 NIBP 131/76 NIBP BP-Mean 94 Respiration from ECG 19 SpO2 98 I&O: 09/14/18 09/15/18 09/16/18 06:59 06:59 06:59 Intake Total 450 720 Output Total 3400 1975 Balance -6000 -0925 Result Diagrams: 09/12/18 05:00 09/12/18 05:00 Additional Labs: Accuchecks 09/15/18 09/15/18 09/14/18 12:04 05:55 20:04 POC Glucose 267 H 363 H 391 H 09/14/18 16:28 POC Glucose 290 H Phys Exam - Physical Examination Neck: no nodes, no JVD, supple, full ROM Respiratory: no wheezing, no rales, no rhonchi, wheezing present, clear to auscultation bilateral Cardiovascular: RRR, no significant murmur, no rub, gallop, irregular Gastrointestinal: soft, non-tender, no distention, positive bowel sounds Dx/Plan (1) Sepsis Code(s): A41.9 - SEPSIS, UNSPECIFIED ORGANISM Status: Acute (2) SVT (supraventricular tachycardia) Code(s): I47.1 - SUPRAVENTRICULAR TACHYCARDIA Status: Acute (3) Diabetes type 2, controlled Code(s): E11.9 - TYPE 2 DIABETES MELLITUS WITHOUT COMPLICATIONS Status: Chronic (4) Pneumonia Code(s): J18.9 - PNEUMONIA, UNSPECIFIED ORGANISM Status: Acute (5) Neck pain Code(s): M54.2 - CERVICALGIA Status: Acute (6) Leukocytosis Code(s): D72.829 - ELEVATED WHITE BLOOD CELL COUNT, UNSPECIFIED Status: Acute (7) Acute kidney failure Status: Acute - Plan awaiting echo -: pt on steroids -: per cardio if ef >35 no life vest -: blood cx negative, infectious etiology ruled out. -: continue pt's anakinra * . Review of Systems - Review of Systems Respiratory: negative: Cough, Dry, Shortness of Breath, Hemoptysis, SOB with Excertion, Pleuritic Pain, Sputum, Wheezing Cardiovascular: negative: chest pain, palpitations, orthopnea, paroxysmal nocturnal dyspnea, edema, light headedness, other Gastrointestinal: negative: Nausea, Vomiting, Abdominal Pain, Diarrhea, Constipation, Melena, Hematochezia, Other - Medications/Allergies Allergies/Adverse Reactions: Allergies Allergy/AdvReac Type Severity Reaction Status Date / Time vancomycin Allergy Verified 09/08/18 00:42 Medications: Current Medications Acetaminophen (Tylenol) 650 mg PO Q6H PRN PRN Reason: TEMP > 101 Last Admin: 09/08/18 01:59 Dose: 650 mg Hydrocodone Bitart/Acetaminophen ([place] 7.5/325) 1 tab PO Q4H PRN PRN Reason: Mild Pain (1-3) Last Admin: 09/08/18 00:43 Dose: 1 tab Amoxicillin/Clavulanate Potassium (Augmentin) 875 mg PO 1100,2300 [facility] Last Admin: 09/15/18 11:44 Dose: 875 mg Atorvastatin Calcium (Lipitor) 40 mg PO QAM [facility] Last Admin: 09/15/18 10:12 Dose: 40 mg Carvedilol (Coreg) 3.125 mg PO BID-[facility] Last Admin: 09/15/18 10:12 Dose: 3.125 mg Cyclobenzaprine HCl (Flexeril) 10 mg PO TID PRN PRN Reason: Muscle Spasm Last Admin: 09/11/18 20:24 Dose: 10 mg Dextrose/Water (Dextrose 50%) 25 gm SLOW IVP PRN PRN PRN Reason: Hypoglycemia Ezetimibe (Zetia) 10 mg PO QAM [facility] Last Admin: 09/15/18 10:12 Dose: 10 mg Famotidine (Pepcid) 20 mg PO BID [facility] Last Admin: 09/15/18 10:13 Dose: 20 mg Ferrous Sulfate (Feosol) 325 mg PO BID [facility] Last Admin: 09/15/18 10:12 Dose: 325 mg Folic Acid (Folvite) 1 mg PO DAILY [facility] Last Admin: 09/15/18 10:12 Dose: 1 mg Glucagon (Glucagon) 1 mg IM PRN PRN PRN Reason: Hypoglycemia Guaifenesin/Codeine Phosphate (Robitussin Ac) 10 ml PO Q6H PRN PRN Reason: Cough Last Admin: 09/10/18 05:59 Dose: 10 ml Dextrose/Water (D5w) 1,000 mls @ 0 mls/hr IV .Q0M PRN PRN Reason: Hypoglycemia Sodium Chloride (Normal Saline 0.9%) 1,000 mls @ 0 mls/hr IV .Q0M [facility] Insulin Glargine 15 units/ (Miscellaneous Medication) 0.15 mls @ 0 mls/hr SC QAM [facility] Last Admin: 09/15/18 10:13 Dose: 0.15 mls Insulin Human Lispro (Humalog) 0 units SC .MILD SLIDING SCALE PRN PRN Reason: Mild Correctional Scale Last Admin: 09/15/18 13:04 Dose: 4 unit Insulin Human Lispro (Humalog) 5 units SC TID-[facility] Last Admin: 09/15/18 13:03 Dose: 5 unit Lisinopril (Zestril) 2.5 mg PO DAILY [facility] Last Admin: 09/15/18 10:12 Dose: 2.5 mg Anakinra (Kineret) 100 Mg/0.67 Ml Syringe 0 each SC DAILY [facility] Last Admin: 09/15/18 11:43 Dose: 1 each Prednisone (Prednisone) 20 mg PO BID-[facility] Last Admin: 09/15/18 10:12 Dose: 20 mg Rivaroxaban (Xarelto) 10 mg PO DAILY [facility] Last Admin: 09/15/18 10:13 Dose: 10 mg Saccharomyces Boulardii (Florastor) 250 mg PO DAILY [facility] Last Admin: 09/15/18 10:16 Dose: 250 mg Sodium Chloride (Flush - Normal Saline) 10 ml IVF Q12HR [facility] Last Admin: 09/15/18 10:17 Dose: 10 ml Sodium Chloride (Flush - Normal Saline) 10 ml IVF PRN PRN PRN Reason: Saline Flush Tamsulosin HCl (Flomax) 0.4 mg PO QAM [facility] Last Admin: 09/15/18 10:13 Dose: 0.4 mg Tramadol HCl (Ultram) 50 mg PO TID PRN PRN Reason: Pain
--- NOTE | 2018-09-15 14:36 | PDOC.PN ---
- Subjective Encounter Start Date: 09/15/18 Encounter Start Time: 09:00 Subjective: pt up in bed no complains - Objective Resuscitation Status - Order Detail: 09/07/18 14:27 Resuscitation Status Routine Resuscitation Status: FULL: Full Resuscitation Vital Signs & Weight: Vital Signs (12 hours) Temp Pulse Resp BP BP Pulse Ox 09/15/18 10:12 73 137/63 09/15/18 02:44 97.1 F L 73 19 164/77 H 100 Weight Weight 162 lb 12.8 oz Most Recent Monitor Data Heart Rate from ECG 72 NIBP 131/76 NIBP BP-Mean 94 Respiration from ECG 19 SpO2 98 I&O: 09/14/18 09/15/18 09/16/18 06:59 06:59 06:59 Intake Total 450 720 Output Total 3400 1975 Balance -2330 -3825 Result Diagrams: 09/12/18 05:00 09/12/18 05:00 Additional Labs: Accuchecks 09/15/18 09/15/18 09/14/18 12:04 05:55 20:04 POC Glucose 267 H 363 H 391 H 09/14/18 16:28 POC Glucose 290 H Phys Exam - Physical Examination Respiratory: no wheezing, no rales, no rhonchi, wheezing present, clear to auscultation bilateral Cardiovascular: RRR, no significant murmur, no rub, gallop, irregular Gastrointestinal: soft, non-tender, no distention, positive bowel sounds Musculoskeletal: no edema, pulses present, edema present Dx/Plan (1) Sepsis Code(s): A41.9 - SEPSIS, UNSPECIFIED ORGANISM Status: Acute (2) SVT (supraventricular tachycardia) Code(s): I47.1 - SUPRAVENTRICULAR TACHYCARDIA Status: Acute (3) Diabetes type 2, controlled Code(s): E11.9 - TYPE 2 DIABETES MELLITUS WITHOUT COMPLICATIONS Status: Chronic (4) Pneumonia Code(s): J18.9 - PNEUMONIA, UNSPECIFIED ORGANISM Status: Acute (5) Neck pain Code(s): M54.2 - CERVICALGIA Status: Acute (6) Leukocytosis Code(s): D72.829 - ELEVATED WHITE BLOOD CELL COUNT, UNSPECIFIED Status: Acute (7) Acute kidney failure Status: Acute - Plan echo pending -: pt ambulates by himself -: steroids changed to po -: will increase his insulin * . Review of Systems - Review of Systems Respiratory: negative: Cough, Dry, Shortness of Breath, Hemoptysis, SOB with Excertion, Pleuritic Pain, Sputum, Wheezing Cardiovascular: negative: chest pain, palpitations, orthopnea, paroxysmal nocturnal dyspnea, edema, light headedness, other Gastrointestinal: negative: Nausea, Vomiting, Abdominal Pain, Diarrhea, Constipation, Melena, Hematochezia, Other - Medications/Allergies Allergies/Adverse Reactions: Allergies Allergy/AdvReac Type Severity Reaction Status Date / Time vancomycin Allergy Verified 09/08/18 00:42 Medications: Current Medications Acetaminophen (Tylenol) 650 mg PO Q6H PRN PRN Reason: TEMP > 101 Last Admin: 09/08/18 01:59 Dose: 650 mg Hydrocodone Bitart/Acetaminophen ([place] 7.5/325) 1 tab PO Q4H PRN PRN Reason: Mild Pain (1-3) Last Admin: 09/08/18 00:43 Dose: 1 tab Amoxicillin/Clavulanate Potassium (Augmentin) 875 mg PO 1100,2300 [facility] Last Admin: 09/15/18 11:44 Dose: 875 mg Atorvastatin Calcium (Lipitor) 40 mg PO QAM [facility] Last Admin: 09/15/18 10:12 Dose: 40 mg Carvedilol (Coreg) 3.125 mg PO BID-[facility] Last Admin: 09/15/18 10:12 Dose: 3.125 mg Cyclobenzaprine HCl (Flexeril) 10 mg PO TID PRN PRN Reason: Muscle Spasm Last Admin: 09/11/18 20:24 Dose: 10 mg Dextrose/Water (Dextrose 50%) 25 gm SLOW IVP PRN PRN PRN Reason: Hypoglycemia Ezetimibe (Zetia) 10 mg PO QAM [facility] Last Admin: 09/15/18 10:12 Dose: 10 mg Famotidine (Pepcid) 20 mg PO BID [facility] Last Admin: 09/15/18 10:13 Dose: 20 mg Ferrous Sulfate (Feosol) 325 mg PO BID [facility] Last Admin: 09/15/18 10:12 Dose: 325 mg Folic Acid (Folvite) 1 mg PO DAILY [facility] Last Admin: 09/15/18 10:12 Dose: 1 mg Glucagon (Glucagon) 1 mg IM PRN PRN PRN Reason: Hypoglycemia Guaifenesin/Codeine Phosphate (Robitussin Ac) 10 ml PO Q6H PRN PRN Reason: Cough Last Admin: 09/10/18 05:59 Dose: 10 ml Dextrose/Water (D5w) 1,000 mls @ 0 mls/hr IV .Q0M PRN PRN Reason: Hypoglycemia Sodium Chloride (Normal Saline 0.9%) 1,000 mls @ 0 mls/hr IV .Q0M [facility] Insulin Glargine 15 units/ (Miscellaneous Medication) 0.15 mls @ 0 mls/hr SC QAM [facility] Last Admin: 09/15/18 10:13 Dose: 0.15 mls Insulin Human Lispro (Humalog) 0 units SC .MILD SLIDING SCALE PRN PRN Reason: Mild Correctional Scale Last Admin: 09/15/18 13:04 Dose: 4 unit Insulin Human Lispro (Humalog) 5 units SC TID-[facility] Last Admin: 09/15/18 13:03 Dose: 5 unit Lisinopril (Zestril) 2.5 mg PO DAILY [facility] Last Admin: 09/15/18 10:12 Dose: 2.5 mg Anakinra (Kineret) 100 Mg/0.67 Ml Syringe 0 each SC DAILY [facility] Last Admin: 09/15/18 11:43 Dose: 1 each Prednisone (Prednisone) 20 mg PO BID-[facility] Last Admin: 09/15/18 10:12 Dose: 20 mg Rivaroxaban (Xarelto) 10 mg PO DAILY [facility] Last Admin: 09/15/18 10:13 Dose: 10 mg Saccharomyces Boulardii (Florastor) 250 mg PO DAILY [facility] Last Admin: 09/15/18 10:16 Dose: 250 mg Sodium Chloride (Flush - Normal Saline) 10 ml IVF Q12HR [facility] Last Admin: 09/15/18 10:17 Dose: 10 ml Sodium Chloride (Flush - Normal Saline) 10 ml IVF PRN PRN PRN Reason: Saline Flush Tamsulosin HCl (Flomax) 0.4 mg PO QAM [facility] Last Admin: 09/15/18 10:13 Dose: 0.4 mg Tramadol HCl (Ultram) 50 mg PO TID PRN PRN Reason: Pain
[2018-09-15 16:07] VITALS: BMI 24.7
--- NOTE | 2018-09-15 17:20 | PDOC.CTH ---
Cardiology Progress Note - Subjective Doing better. No chest pain no SOB. - Objective Vital Signs Pulse BP 09/15/18 10:12 73 137/63 Admit Weight 162 lb 12.8 oz Weight 162 lb 12.8 oz 09/14/18 09/15/18 09/16/18 06:59 06:59 06:59 Intake Total 450 720 Output Total 3400 1975 Balance -2950 -1255 - Physical Examination General/Neuro: alert & oriented x3, NAD Neck: no JVD present Lungs: CTA, unlabored respirations Heart: RRR Abdomen: NT/ND Extremities: + edema B (Trace) - Telemetry Telemetry Rhythm: NSR - Labs Result Diagrams: 09/12/18 05:00 09/12/18 05:00 Troponin/CKMB Troponin I 0.015 ng/mL (< 0.028) 09/07/18 21:45 - Assessment/Plan 1. Severe dilated CM EF normalized now at 65% 2. Acute on chronic systolic heart failure, resolved. 3. Possible myocarditis from Still disease. Resolved. 5. Adrenal insufficiency. 6. Elevated ferritin level PLAN: - Normalized EF on echo today at 65% - No need for Lifevest. - Will restart low dose BB.
[2018-09-16] MEDS ORDERED: HumaLOG 300 UNITS/3 ML VIAL SC PRN (01:38)
[2018-09-16] MEDS: Ezetimibe 10 MG TAB PO SCH (08:36)
[2018-09-16] MEDS: Lisinopril 2.5 MG TAB PO SCH (08:38)
[2018-09-16] MEDS: Tamsulosin HCl 0.4 MG CAP PO SCH (08:38)
[2018-09-16] MEDS: Rivaroxaban 10 MG TAB PO SCH (08:38)
[2018-09-16] MEDS: predniSONE 20 MG TAB PO SCH (08:38)
[2018-09-16] MEDS: Saccharomyces boulardii 250 MG CAP PO SCH (08:39)
[2018-09-16] MEDS: Carvedilol 3.125 MG TAB PO SCH (08:39)
[2018-09-16] MEDS: Folic Acid 1 MG TAB PO SCH (08:39)
[2018-09-16] MEDS: Ferrous Sulfate 325 MG TAB PO SCH (08:39)
[2018-09-16] MEDS: Famotidine 20 MG TAB PO SCH (08:39)
[2018-09-16] MEDS: Insulin Glargine 15 UNITS in Pre-Filled Syringe 1 EACH SC SCH (08:39)
[2018-09-16] MEDS: Atorvastatin Calcium 40 MG TAB PO SCH (08:39)
[2018-09-16] MEDS: HumaLOG 300 UNITS/3 ML VIAL SC SCH (08:40)
[2018-09-16] MEDS: ANAKINRA SC SCH (08:45)
[2018-09-16] MEDS ORDERED: Clopidogrel Bisulfate 75 MG TAB ONE (08:50)
[2018-09-16] MEDS ORDERED: HumaLOG 300 UNITS/3 ML VIAL SC SCH (09:49)
--- NOTE | 2018-09-16 11:20 | PRG ---
DATE OF SERVICE: 09/16/2018 SUBJECTIVE: The patient is feeling better today. He wants to go home. OBJECTIVE: VITAL SIGNS: On exam, his temperature is 98.7, pulse 60, respirations 18, O2 saturation 99% on room air, blood pressure 102/60. HEENT: Unremarkable. NECK: No JVD. CHEST: Clear anteriorly. CARDIAC: S1, S2. Regular. ABDOMEN: Soft. EXTREMITIES: No edema. LABORATORY DATA: His echo shows diastolic dysfunction with 1/3 diastolic dysfunction and EF of 60% to 65%. ASSESSMENT: 1. Adult Still's disease. 2. Stable pulmonary status. 3. Improved ejection fraction on echo. PLAN: Finish oral antibiotics, steroid taper per Rheumatology as an outpatient. Should be okay to go home. Job ID: [id number]
[2018-09-16] MEDS: Amoxicillin/Potassium Clav 875 MG TAB PO SCH (11:41)
[2018-09-16] MEDS ORDERED: Insulin Glargine 5 UNITS in Pre-Filled Syringe 1 EACH SC SCH (11:45)
[2018-09-16 12:58] VITALS: BP 124/68; TEMP 97.8
--- NOTE | 2018-09-20 14:36 | PQF ---
LEONID HENDRIX KARISHMA [id number] [facility]-297 [id number] CLINICAL DOCUMENTATION CLARIFICATION FORM: POST DISCHARGE Addendum to original discharge summary date: ____ Late entry note date: __ DATE: 09/20/2018 ATTN: PEACE JERRY Please exercise your independent, professional judgment in responding to the clarification form. Clinical indicators are provided on the bottom of this form for your review Please check appropriate box(es): [ ] Sepsis due to: (Pna, UTI, gangrenous gall bladder, etc.) [ ] Sepsis due to Shandra [ ] Sepsis not due to Shandra [ ] Severe sepsis with acute organ dysfunction of: (Examples: respiratory failure, encephalopathy, acute kidney failure, other) [ x ] Septic Shock [ ] Other diagnosis [ ] Unable to determine In addition, please specify: Present on Admission (POA): [x ] Yes [ ] No [ ] Unable to determine For continuity of documentation, please document condition throughout progress notes and discharge summary. Thank You. CLINICAL INDICATORS - SIGNS / SYMPTOMS / LABS: H&P - Previous admission, patient found with UTI and discharged home on ciprofloxacin. 09/08 PN Event Note - Sepsis now with septic shock possibility 09/08 Cardio Consult - Had sinus tachycardia, will continue to treat sepsis and septic shock. 09/09 PN - Sepsis, unspecified organism Negative blood culture 09/11 PN - Urine culture showed Shandra. "Should have dobbins out and begin voiding without that can be treated most likely with one dose of fluconazole." - Dr. Munoz RISK FACTORS: Pneumonia Adrenal crisis TREATMENTS: Initiation Sepsis Protocol Blood/urine/ cultures 09/11 - ID Consult Antibiotics IV Fluids Vasopressors, meds (This form is maintained as a part of the permanent medical record) 2014 [employer], [place]. All Rights Reserved Aileen Carbone CCS, [facility] [email or web address] [phone] MTDD
== END 2018-09-16 13:43 | disposition home health service (06) | DRG 871 ==
LOC: ERS 10:41 → ERHOLD 15:19 → CCU 09-08 00:08 → OBSVTOIN 09-08 19:30 → IMCU/EMU 09-12 17:47 → 2NO 09-14 16:01
PROVIDERS: ADMIT Internal Medicine; ATTEND Internal Medicine
PROC: 5A2204Z Restoration of Cardiac Rhythm, Single (ICD-10-PCS; principal; 2018-09-08)
PROC: 06HY33Z Insertion of Infusion Device into Lower Vein, Percutaneous Approach (ICD-10-PCS; 2018-09-08)
PROC: 3E033XZ Introduction of Vasopressor into Peripheral Vein, Percutaneous Approach (ICD-10-PCS; 2018-09-08)
DX: A41.9 Sepsis, unspecified organism (principal); J18.9 Pneumonia, unspecified organism; I50.23 Acute on chronic systolic (congestive) heart failure; R65.21 Severe sepsis with septic shock; E27.2 Addisonian crisis; I42.0 Dilated cardiomyopathy; N17.9 Acute kidney failure, unspecified; Y95 Nosocomial condition; E11.9 Type 2 diabetes mellitus without complications; Z79.01 Long term (current) use of anticoagulants; Z86.718 Personal history of other venous thrombosis and embolism; Z79.4 Long term (current) use of insulin; Z79.52 Long term (current) use of systemic steroids; M06.1 Adult-onset Still's disease; E78.5 Hyperlipidemia, unspecified; I11.0 Hypertensive heart disease with heart failure
CPT/HCPCS: 36415; 36416; 71045; 71275; 72040; 80048; 80053; 80400; 81003; 81015; 82533; 82728; 82805; 83880; 84484; 85025; 85652; 87040; 87086; 87385; 87449; 87497; 87899; 93005; 93306; 93798; 94760; 96361; 96365; 96366; 96367; 96368; 96375; 96376; J0153; J0282; J0834; J1100; J1160; J1825; J1885; J1956; J2270; J2405; J2543; J2920; J3370; J3480; J7050; J7506; Q9966

== ENCOUNTER 2018-11-07 09:00 | Inpatient (IN) | payer MEDICARE ==
[2018-11-07] MEDS ORDERED: Piperacillin/Tazobactam 4.5 GM VIAL ONE (09:41)
[2018-11-07 10:22] LABS: Bilirubin Negative (Negative); Blood, Urine Moderate (Negative); Glucose, Urine (Dipstick) >=1000 mg/dL (Negative); Leukocyte Small (Negative); Nitrite Negative (Negative); Protein, Urine (Dipstick) 30 mg/dL (Neg-Trace); Urobilinogen 0.2 mg/dL (0.2-1.0)
[2018-11-07 10:24] LABS: Clarity HAZY (Clear); Other Microscopic Description Less than 2 mL rec'd
[2018-11-07] MEDS ORDERED: Norepinephrine 8 MG/0.9% NS 250 ML ONE (10:24)
--- NOTE | 2018-11-07 10:38 | RAD ---
PORTABLE CHEST ONE VIEW: 11/07/2018 10:09 a.m. HISTORY: Fever. Acute altered mental status. COMPARISON: 09/07/2018 FINDINGS: The heart size is borderline. No focal areas of consolidation, pneumothoraces, dwight pulmonary edema , or large effusions are seen. There is mild prominence of the pulmonary vascularity. A left nicole l head prosthesis and degenerative changes in the right shoulder joint are again seen. POS: [facility]
[2018-11-07] MEDS ORDERED: Ketamine 50 MG/ML (10ML VIAL) ONE (10:53)
[2018-11-07 11:29] LABS: Hemoglobin 13.9 g/dL (14.0-18.0); Mean Corpuscular HGB CONC 32.1 g/dL (32.0-36.0); Mean Corpuscular Hemoglobin 29.7 pg (27.0-31.0); Mean Corpuscular Volume 92.6 fL (78.0-98.0); Mean Platelet Volume 8.4 fL (7.4-10.4); Platelet Count 161 thou/uL (130-400); RBC Distribution Width 15.1 % (11.5-14.5); Red Blood Cell (RBC) Count 4.69 mill/uL (4.70-6.10); White Blood Cell (WBC) Count 15.7 thou/uL (4.8-10.8)
--- NOTE | 2018-11-07 11:43 | RAD ---
CHEST ONE VIEW: Indication: History of chest pain and catheter placement. FINDINGS: There is a new right IJ central venous catheter projecting over the region of the right atrium. No pn eumothorax is evident. Cardiomegaly persists. Mild pulmonary vascular congestion is similar appearing . No pleural effusion is evident. Osseous structures are unchanged. IMPRESSION: 1. New right IJ central venous catheter without evidence of pneumothorax. 2. Persistent cardiomegaly with mild pulmonary vascular congestion. POS: [facility]
[2018-11-07 11:45] LABS: Band 29 % (5-11); Lymphocytes 23 % (21-51); MDiff Complete? YES; Metamyelocyte 1 % (0-0); Monocytes 5 % (0-10); Neutrophil 33 % (42-75); Platelet Morphology Comment Appears Adequate; RBC Morphology Normal; Reactive Lymphocytes 8 % (0-10); Vacuoles SLIGHT
[2018-11-07 11:50] LABS: ALT (SGPT) 36 U/L (8-55); AST (SGOT) 94 U/L (5-34); Albumin 3.2 g/dL (3.5-5.0); Alkaline Phosphatase 115 U/L (40-150); Anion Gap 22 mmol/L (10-20); BUN (Urea Nitrogen) 40 mg/dL (8.4-25.7); Bilirubin, Total 0.8 mg/dL (0.2-1.2); CK (CPK) 2724 U/L (30-200); Calc. Creatinine Clearance 0 mL/min (70-130); Calcium 9.4 mg/dL (7.8-10.44); Carbon Dioxide 16 mmol/L (22-29); Chloride 108 mmol/L (98-107); Estimated GFR-MDRD 25; Globulin 3.2 g/dL (2.4-3.5); Glucose 186 mg/dL (70-105); Potassium 4.3 mmol/L (3.5-5.1); Protein, Total 6.4 g/dL (6.0-8.3); Sodium 142 mmol/L (136-145)
[2018-11-07] MEDS ORDERED: Hydrocortisone Sod Succ/PF 100 mg/2 ml Vial ONE (12:04)
[2018-11-07 12:16] LABS: CKMB 7.5 ng/mL (0-6.6)
[2018-11-07] MEDS ORDERED: Ondansetron ODT 4 MG TAB PO PRN (14:05)
[2018-11-07] MEDS ORDERED: Ondansetron PF 4 MG/2 ML Vial IVP PRN (14:05)
[2018-11-07] MEDS ORDERED: Acetaminophen 500 MG TAB PO PRN (14:05)
[2018-11-07] MEDS ORDERED: CCU Electrolyte Replacement 1 EACH FS ONE (14:05)
[2018-11-07] MEDS ORDERED: Dextrose 5% in Water 1,000 ML IV PRN (14:05)
[2018-11-07] MEDS ORDERED: traMADol HCl 50 MG TAB PO PRN (14:05)
[2018-11-07] MEDS ORDERED: Dextrose 50% Abboject 50 ML SYRINGE SLOW IVP PRN (14:05)
[2018-11-07] MEDS ORDERED: Potassium Phosphate 15 MMOL in Sodium Chloride 0.9% 250 ML 250 ML IV PRN (14:25)
[2018-11-07] MEDS ORDERED: Potassium Phosphate 9 MMOL in Sodium Chloride 0.9% 100 ML IVPB PRN (14:25)
[2018-11-07] MEDS ORDERED: Potassium Phosphate 12 MMOL in Sodium Chloride 0.9% 250 ML 250 ML IV PRN (14:25)
[2018-11-07] MEDS ORDERED: CCU ELECTROLYTE REPLACEMENT PROTOCOL FS PRN (14:25)
[2018-11-07] MEDS ORDERED: Potassium Chloride 20 MEQ TAB PO PRN (14:25)
[2018-11-07] MEDS ORDERED: Potassium Chloride 40 MEQ in Premix Bag 1 BAG IVPB PRN (14:25)
[2018-11-07] MEDS ORDERED: Magnesium Oxide 400 MG TAB PO PRN ×2 (14:25)
[2018-11-07] MEDS ORDERED: Magnesium 2 GM/50 ML 2 GM in Premix Bag 1 BAG IVPB PRN (14:25)
[2018-11-07] MEDS ORDERED: Potassium Chloride 40 MEQ in Sodium Chloride 0.9% 250 ML 250 ML IVPB PRN (14:25)
[2018-11-07] MEDS: Sodium Chloride 0.9% 1,000 ML IV SCH (14:40)
[2018-11-07] MEDS: Cefepime 2 GM in Sodium Chloride 0.9% 100 ML IVPB SCH (14:40)
--- NOTE | 2018-11-07 15:09 | HP ---
PRIMARY CARE PROVIDER: Dr. William Heredia. CHIEF COMPLAINT: Fever and confusion. HISTORY OF PRESENT ILLNESS: This is a 58-year-old male, who presented to [facility] complaining of confusion and fever up to 102.9 degrees Fahrenheit. EMS was notified after the patient's noted the patient with altered mental status. EMS personnel arrived to find the patient with multiple bottles of urine at his bedside with fecal material on his feet. History is obtained after review of electronic medical record as well as discussions with the ER attending as the patient with moderate confusion and unable to provide a coherent history. The patient was noted recently admitted x2 in 2019 for suspected healthcare-associated pneumonia as well as sepsis and supraventricular tachycardia. The patient states he has been compliant with his chronic medication regimen and denies any other sick contacts or family members with similar symptoms. In the emergency room, the patient underwent general evaluation with consistent hypotension with blood pressures ranging in the 58 to mid 70s systolic. The patient met sepsis criteria and received IV Rocephin, Solu-Cortef, normal saline, and placed on Levophed infusion. The patient was noted with combativeness and placed in a wrist restraints for safety measures. The patient's blood pressure had a mild improvement with IV fluids as well as vasopressor support. PAST MEDICAL HISTORY: 1. Rheumatoid arthritis on chronic steroids and immunological treatment. 2. History of DVT. 3. Diabetes mellitus type 2. 4. Hyperlipidemia. 5. Hypertension. 6. Supraventricular tachycardia. 7. Healthcare-associated pneumonia. PAST SURGICAL HISTORY: 1. Status post cholecystectomy. 2. Status post left shoulder repair. 3. Status post left knee repair. 4. Status post cervical spine surgery. CURRENT MEDICATIONS: 1. Xarelto 20 mg p.o. daily. 2. Metformin 1000 mg p.o. b.i.d. 3. Levemir 15 units subcutaneously at bedtime. 4. Zetia 10 mg p.o. daily. 5. Flomax 0.4 mg p.o. daily. 6. Prednisone 5 mg p.o. daily. ALLERGIES: QUESTION OF VANCOMYCIN. FAMILY HISTORY: Mother with coronary artery disease. Father with history of diabetes mellitus and end-stage renal disease, requiring hemodialysis. SOCIAL HISTORY: No current alcohol, tobacco, or illicit drug use. He resides with his mother and nephew. REVIEW OF SYSTEMS: Unobtainable due to the patient's altered mental status and confusion. PHYSICAL EXAMINATION: VITAL SIGNS: On admission; blood pressure was 69/53, pulse 132, respiratory rate 19, temperature 101.5 degrees Fahrenheit, and O2 saturation 100% on 2 L/minute by nasal cannula. GENERAL APPEARANCE: This is a 58-year-old male, agitated, moving all extremities, answering questions in 1 to 2 word responses. HEENT: Pupils are equal, round, and reactive to light and accommodation. Extraocular muscles are intact. No scleral icterus. No conjunctival injection. Nares patent. OP is clear. Oral mucosa dry appearing. NECK: Supple. No cervical adenopathy. No thyromegaly. No carotid bruits. No JVD appreciated. Right internal jugular central venous catheter in place. No meningeal signs noted. CHEST: Coarse breath sounds in the bases bilaterally. CARDIOVASCULAR: S1 and S2 with tachycardia. ABDOMEN: Rounded, soft, nontender, and nondistended. Bowel sounds are positive in all 4 quadrants. There is no hepatosplenomegaly. No abdominal bruits. No rebound or guarding appreciated. EXTREMITIES: Warm and dry with fair turgor. No clubbing, cyanosis, or asymmetric edema appreciated. Pulses palpable distally at the dorsalis pedis, posterior tibial, and popliteal arteries bilaterally. Capillary refill less than 2 seconds. NEUROLOGIC: Alert and oriented x2 to name and place. Moves all extremities. Tracks on command. Not observed ambulatory during this exam. PERTINENT LAB AND X-RAY FINDINGS: Sodium 142, potassium 4.3, chloride 108, CO2 of 16, anion gap 22, BUN 40, creatinine 3.08, estimated GFR of 25, glucose 186, lactic acid level 6.8, calcium 9.4, AST 94, ALT of 36, and alkaline phosphatase 115. Total CK 2724 and troponin I 0.067. CBC showed a white blood cell count of 15.7, hemoglobin 14, hematocrit 43, and platelet count 161 with 33% neutrophils and 29% bands. Urinalysis showed positive for glucose and blood with small leukocyte esterase. Influenza A and B antigen dated 11/07/2018, negative. Portable chest x-ray dated 11/07/2018, showed right internal jugular central venous catheter without pneumothorax. Cardiomegaly with mild pulmonary vascular prominence. EKG dated 11/07/2018, by my interpretation shows sinus tachycardia with heart rates in the 140s. Baseline artifact noted with respiratory oscillation. No acute ST-T wave changes appreciated. ASSESSMENT AND PLAN: 1. Severe sepsis with septic shock. The patient will be admitted to the critical care unit. Suspected urinary source with potential component of pulmonary source. Continue empiric IV antibiotic therapy with cefepime 2 g IV q.12 hours with additional Levaquin 500 mg IV q.48 hours. Await final urine and blood culture results. Continue pressor support with Levophed titrating to maintain systolic greater than or equal to 100. Current mean arterial pressure, MAP 65. Consult Pulmonology/Critical Care Service for any further recommendations. 2. Acute toxic metabolic encephalopathy. Suspect secondarily to severe sepsis with septic shock. Continue supportive management as outlined in severe sepsis with septic shock. Serial monitoring of mental status. 3. Acute kidney injury on chronic kidney disease. Avoid nephrotoxic agents and limit contrast exposure. Continue IV fluids and monitor serial creatinine. 4. Rhabdomyolysis. Suspect secondarily to severe sepsis with septic shock. Continue IV fluids as outlined previously. Serial total CPK monitoring. 5. Adrenal insufficiency. We will continue Solu-Medrol 40 mg IV q.6 hours. Check serum cortisol level in the a.m. Chronic immunosuppression with prednisone. 6. Diastolic dysfunction. Ejection fraction of 60% to 65%. Currently compensated without evidence of acute volume overload. Hold diuretics due to hypotension and acute kidney injury. 7. Diabetes mellitus type 2. Insulin sliding scale for reflexive coverage. ADA diet. Serial Accu-Cheks before meals and at bedtime. Hold oral hypoglycemics x48 hours. 8. Prophylaxis. Sequential compression devices while in bed. Pepcid 20 mg p.o. b.i.d. 9. Code status is full. Surrogate medical decision maker is the patient's daughter, Evelyn. TIME SPENT: Total critical care time is 45 minutes. Job ID: [id number]
[2018-11-07 16:12] VITALS: BMI 20.5
[2018-11-07] MEDS: methylPREDNISolone Sod Succ 40 MG VIAL IVP SCH (17:56)
[2018-11-07] MEDS: HumaLOG 300 UNITS/3 ML VIAL SC PRN (17:56)
[2018-11-07] MEDS: Norepinephrine 8 MG/0.9% NS 250 ML IVPB SCH (18:06)
[2018-11-07 19:05] LABS: Lactic Acid 1.7 mmol/L (0.5-2.2)
[2018-11-08] MEDS: Sodium Chloride 0.9% 1,000 ML IV SCH ×3 (00:47→21:05)
[2018-11-08] MEDS: Ferrous Sulfate 325 MG TAB PO SCH ×3 (00:47→21:06)
[2018-11-08] MEDS: Norepinephrine 8 MG/0.9% NS 250 ML IVPB SCH ×2 (00:48→07:06)
[2018-11-08] MEDS: methylPREDNISolone Sod Succ 40 MG VIAL IVP SCH ×5 (00:48→23:49)
[2018-11-08] MEDS: Cefepime 2 GM in Sodium Chloride 0.9% 100 ML IVPB SCH ×2 (03:58→15:30)
[2018-11-08 06:13] LABS: Hemoglobin 13.9 g/dL (14.0-18.0); Mean Corpuscular HGB CONC 31.9 g/dL (32.0-36.0); Mean Corpuscular Hemoglobin 30.3 pg (27.0-31.0); Mean Corpuscular Volume 94.9 fL (78.0-98.0); Mean Platelet Volume 8.4 fL (7.4-10.4); Platelet Count 167 thou/uL (130-400); RBC Distribution Width 15.4 % (11.5-14.5); Red Blood Cell (RBC) Count 4.58 mill/uL (4.70-6.10); White Blood Cell (WBC) Count 17.4 thou/uL (4.8-10.8)
[2018-11-08 06:14] LABS: Band 22 % (5-11); Lymphocytes 5 % (21-51); MDiff Complete? YES; Monocytes 3 % (0-10); Neutrophil 69 % (42-75); Reactive Lymphocytes 1 % (0-10)
[2018-11-08 06:40] LABS: ALT (SGPT) 58 U/L (8-55); AST (SGOT) 128 U/L (5-34); Albumin 3.1 g/dL (3.5-5.0); Alkaline Phosphatase 115 U/L (40-150); Anion Gap 24 mmol/L (10-20); BUN (Urea Nitrogen) 44 mg/dL (8.4-25.7); Bilirubin, Total 0.6 mg/dL (0.2-1.2); CK (CPK) 2806 U/L (30-200); Calc. Creatinine Clearance 37 mL/min (70-130); Calcium 9.4 mg/dL (7.8-10.44); Carbon Dioxide 14 mmol/L (22-29); Chloride 112 mmol/L (98-107); Estimated GFR-MDRD 38; Globulin 3.6 g/dL (2.4-3.5); Glucose 236 mg/dL (70-105); Potassium 4.6 mmol/L (3.5-5.1); Protein, Total 6.7 g/dL (6.0-8.3); Sodium 145 mmol/L (136-145)
--- NOTE | 2018-11-08 07:11 | RAD ---
CHEST ONE VIEW: INDICATIONS: History of pneumonia. COMPARISON: 11/07/2018 FINDINGS/IMPRESSION: The examination does not appear appreciably changed from the comparison study. There is mild cardiom egaly with mild pulmonary vascular congestion that persists. The right IJ central venous catheter is unchanged. No pneumothorax is evident. Osseous structures are similar appearing. POS: [facility]
[2018-11-08] MEDS ORDERED: ANAKINRA SC SCH (09:00)
--- NOTE | 2018-11-08 10:14 | CON ---
DATE OF CONSULTATION: HISTORY OF PRESENT ILLNESS: Stephani Knight is a 58-year-old gentleman, who was seen in the ER for confusion, sore throat, neck pain, fever, chills, and diarrhea. He was brought into the ER by family members. He states he lives with his mother and his nephew. His temperature was 102.9. He was confused, tachycardic, hypotensive, given some IV fluids, started on Levophed. He is now in the ICU, reason for consult. He was recently in the hospital 7 months ago for similar problems. This morning, he is awake, alert, and responsive. He said he is feeling better. Denies any chest pain. PAST MEDICAL HISTORY: Pertinent for Still disease, diabetes, hypertension, cardiac arrhythmias, BPH, and peptic disease. PAST SURGICAL HISTORY: His previous surgeries otherwise included left knee surgery, cervical spine fusion, cholecystectomy, and left shoulder surgery. MEDICATIONS: His home medicines from last discharge include: 1. Xarelto 20. 2. Januvia 100. 3. Lipitor 40. 4. He states he was taking prednisone 20 once a day. 5. Flomax 0.4. 6. Zestril 2.5. 7. Insulin 40. 8. Ferrous sulfate. 9. Pepcid. 10. Zetia 10. 11. Coreg 3.125. 12. Anakinra . He is now started on Maxipime, Levaquin, and steroids, to which he feels a lot better. ALLERGIES: NONE. SOCIAL HISTORY: Tobacco at this stage, none. Alcohol, none. REVIEW OF SYSTEMS: Otherwise, unremarkable. PHYSICAL EXAMINATION: GENERAL: Awake, alert, and responsive. VITAL SIGNS: Pulse 102, blood pressure 117/51, saturations 100%, respirations 31. CHEST: Revealed decreased breath sounds. No wheezing. CARDIAC: Sinus tachycardia. ABDOMEN: Soft. NEUROLOGIC: Awake, alert, and responsive. LABORATORY DATA: Creatinine 2.16, his baseline creatinine is normal. BUN is 44. White count 17,000, H and H and 13 and 43, platelet count 167. Lactic acid was 4.4. His CK was 280. His AST is 128, ALT is 58. So far, cultures are negative. Influenza titer, negative. His chest x-ray shows no acute infiltrates. IMPRESSION: 1. Sepsis syndrome. 2. Encephalopathy. 3. Hypertension. 4. Diabetes. 5. Cardiac arrhythmias. 6. Rheumatoid arthritis. 7. Still disease. 8. Supraventricular tachycardia. PLAN: Continue broad-spectrum antibiotics, adjust for renal failure. Continue steroids, PT, nutrition. We will follow while in the ICU. We will notify Dr. Munoz, he has seen him in the past. TIME SPENT: Critical care time, 45 minutes. Job ID: [id number]
[2018-11-08] MEDS: Saccharomyces boulardii 250 MG CAP PO SCH (10:49)
[2018-11-08] MEDS: Rivaroxaban 10 MG TAB PO SCH (10:49)
[2018-11-08] MEDS: Famotidine 20 MG TAB PO SCH (10:49)
[2018-11-08] MEDS: Folic Acid 1 MG TAB PO SCH (10:49)
[2018-11-08] MEDS: HumaLOG 300 UNITS/3 ML VIAL SC PRN ×2 (12:42→16:45)
--- NOTE | 2018-11-08 14:01 | PDOC.PN ---
- Subjective Encounter Start Date: 11/08/18 Encounter Start Time: 11:45 Mr. Knight was seen today in follow-up of sepsis. He is oriented to person place and time this afternoon. He does not have any new complaints. - Objective Resuscitation Status - Order Detail: 11/07/18 13:36 Resuscitation Status Routine Resuscitation Status: FULL: Full Resuscitation MAR Reviewed: Yes Vital Signs & Weight: Vital Signs (12 hours) Temp 11/08/18 12:00 97.8 F 11/08/18 08:00 97.8 F 11/08/18 04:00 98.4 F Weight Weight 155 lb 6.814 oz Most Recent Monitor Data Heart Rate from ECG 107 NIBP 117/57 NIBP BP-Mean 77 Respiration from ECG 24 SpO2 100 I&O: 11/07/18 11/08/18 11/09/18 06:59 06:59 06:59 Intake Total 3166 980 Output Total 2525 1300 Balance 641 -320 Result Diagrams: 11/08/18 05:15 11/08/18 05:15 Additional Labs: Accuchecks 11/08/18 11/08/18 11/07/18 12:17 05:16 16:22 POC Glucose 295 H 218 H 229 H Phys Exam - Physical Examination HEENT: PERRLA Respiratory: no wheezing, no rales, no rhonchi, clear to auscultation bilateral Cardiovascular: RRR, no significant murmur, no rub Gastrointestinal: soft, non-tender, no distention, positive bowel sounds Musculoskeletal: no edema, pulses present Dx/Plan (1) Sepsis Code(s): A41.9 - SEPSIS, UNSPECIFIED ORGANISM Status: Acute (2) UTI (urinary tract infection) Status: Acute (3) Metabolic encephalopathy Code(s): G93.41 - METABOLIC ENCEPHALOPATHY Status: Acute (4) BPH (benign prostatic hyperplasia) Code(s): N40.0 - BENIGN PROSTATIC HYPERPLASIA WITHOUT LOWER URINRY TRACT SYMP Status: Chronic (5) Diabetes type 2, controlled Code(s): E11.9 - TYPE 2 DIABETES MELLITUS WITHOUT COMPLICATIONS Status: Chronic (6) Acute kidney failure Status: Acute - Plan * Sepsis- improving- he is currently still on Levophed, but the rate has been decreased. * Awaiting Urine culture results * Metabolic encephalopathy- resolved * Acute Kidney injury- improving * DM- blood glucose is elevated- likely from the IV steroids- will add a low dose Lantus this evening and consider his full home dose tomorrow
[2018-11-08] MEDS: Insulin Glargine 10 UNITS in Pre-Filled Syringe SC SCH (21:05)
[2018-11-09] MEDS: Cefepime 2 GM in Sodium Chloride 0.9% 100 ML IVPB SCH ×2 (03:23→14:10)
[2018-11-09 05:06] LABS: Anion Gap 16 mmol/L (10-20); BUN (Urea Nitrogen) 44 mg/dL (8.4-25.7); Calc. Creatinine Clearance 50 mL/min (70-130); Carbon Dioxide 16 mmol/L (22-29); Chloride 113 mmol/L (98-107); Estimated GFR-MDRD 53; Glucose 244 mg/dL (70-105); Potassium 3.7 mmol/L (3.5-5.1); Sodium 141 mmol/L (136-145)
[2018-11-09 05:20] LABS: Band 21 % (5-11); Hemoglobin 11.6 g/dL (14.0-18.0); Lymphocytes 11 % (21-51); MDiff Complete? YES; Mean Corpuscular HGB CONC 32.7 g/dL (32.0-36.0); Mean Corpuscular Hemoglobin 30.8 pg (27.0-31.0); Mean Corpuscular Volume 94.2 fL (78.0-98.0); Mean Platelet Volume 8.8 fL (7.4-10.4); Monocytes 3 % (0-10); Neutrophil 65 % (42-75); Platelet Count 129 thou/uL (130-400); RBC Distribution Width 15.1 % (11.5-14.5); Red Blood Cell (RBC) Count 3.79 mill/uL (4.70-6.10); White Blood Cell (WBC) Count 8.8 thou/uL (4.8-10.8)
[2018-11-09] MEDS: methylPREDNISolone Sod Succ 40 MG VIAL IVP SCH (05:38)
[2018-11-09] MEDS: Rivaroxaban 10 MG TAB PO SCH (08:01)
[2018-11-09] MEDS: Sodium Chloride 0.9% 1,000 ML IV SCH ×2 (08:03→21:20)
--- NOTE | 2018-11-09 08:41 | PDOC.PN ---
- Subjective Encounter Start Date: 11/09/18 Encounter Start Time: 08:40 Mr. Knight was seen today in follow-up of sepsis and UTI. He is feeling much better. He does not a sensation that he has to move. He believes it may be due to the increased dose of steroids. - Objective Resuscitation Status - Order Detail: 11/07/18 13:36 Resuscitation Status Routine Resuscitation Status: FULL: Full Resuscitation MAR Reviewed: Yes Vital Signs & Weight: Vital Signs (12 hours) Temp 11/09/18 04:00 98.4 F 11/09/18 00:00 98.1 F Weight Weight 155 lb 6.814 oz Most Recent Monitor Data Heart Rate from ECG 87 NIBP 98/68 NIBP BP-Mean 78 Respiration from ECG 20 SpO2 100 I&O: 11/08/18 11/09/18 11/10/18 06:59 06:59 06:59 Intake Total 3166 5157 Output Total 2525 3845 Balance 641 1312 Result Diagrams: 11/09/18 04:30 11/09/18 04:30 Additional Labs: Accuchecks 11/08/18 11/08/18 11/08/18 20:03 16:45 12:17 POC Glucose 253 H 309 H 295 H Phys Exam - Physical Examination HEENT: PERRLA Respiratory: no wheezing, no rales, no rhonchi, clear to auscultation bilateral Cardiovascular: RRR, no significant murmur, no rub Gastrointestinal: soft, non-tender, no distention, positive bowel sounds Musculoskeletal: no edema, pulses present Dx/Plan (1) Sepsis Code(s): A41.9 - SEPSIS, UNSPECIFIED ORGANISM Status: Acute (2) UTI (urinary tract infection) Status: Acute (3) Metabolic encephalopathy Code(s): G93.41 - METABOLIC ENCEPHALOPATHY Status: Acute (4) BPH (benign prostatic hyperplasia) Code(s): N40.0 - BENIGN PROSTATIC HYPERPLASIA WITHOUT LOWER URINRY TRACT SYMP Status: Chronic (5) Diabetes type 2, controlled Code(s): E11.9 - TYPE 2 DIABETES MELLITUS WITHOUT COMPLICATIONS Status: Chronic (6) Acute kidney failure Status: Acute - Plan * Sepsis- continue Cefipime and Levaquin, Urine culture is still pending * Pneumonia has been ruled out * DM- blood glucose is a bit elevated- Lantus has been re-started * He is now off Pressors, and his blood pressure has been stable * He can be moved out of the ICU from the Internal Medicine standpoint * Will continue to [place] his steroid dose down to his home dose.
[2018-11-09] MEDS: Ferrous Sulfate 325 MG TAB PO SCH ×2 (09:25→21:21)
[2018-11-09] MEDS: Folic Acid 1 MG TAB PO SCH (09:25)
[2018-11-09] MEDS: Tamsulosin HCl 0.4 MG CAP PO SCH (09:25)
[2018-11-09] MEDS: Saccharomyces boulardii 250 MG CAP PO SCH (09:26)
[2018-11-09] MEDS: Famotidine 20 MG TAB PO SCH (09:26)
[2018-11-09] MEDS: HumaLOG 300 UNITS/3 ML VIAL SC PRN ×3 (11:43→21:22)
--- NOTE | 2018-11-09 16:29 | CON ---
DATE OF CONSULTATION: 11/09/2018 REASON FOR CONSULTATION: Shortness of breath. HISTORY OF PRESENT ILLNESS: Mr. Knight is a pleasant 58-year-old gentleman, who comes to the hospital for altered mentation and fever. He was admitted, thought to be in septic shock with toxic metabolic encephalopathy. Also, he had acute kidney injury. He was admitted, placed on high-dose steroids secondary to adrenal insufficiency, which he has had in the past. Cardiology is being consulted as he had severe LV dysfunction on recent admission, improved before discharge. Currently, Mr. Knight is doing much better. His mentation is back to normal. PAST MEDICAL HISTORY: 1. Rheumatoid arthritis, on chronic steroids. 2. History of DVT. 3. Type 2 diabetes. 4. Hyperlipidemia. 5. Hypertension. 6. There is a running diagnosis of SVT, but he never had SVT. He only had sinus tachycardia, that was confused with SVT. 7. Pneumonia. SURGICAL HISTORY: 1. Cholecystectomy. 2. Shoulder repair. 3. Left knee repair. 4. Cervical spine surgery. OUTPATIENT MEDICATIONS: Include: 1. Xarelto 20 mg a day secondary to DVTs. 2. Metformin. 3. Levemir. 4. Zetia. 5. Flomax. 6. Prednisone 5 mg a day. 7. Coreg 3.125 b.i.d. ALLERGIES: VANCOMYCIN. FAMILY HISTORY: Mother with early coronary artery disease. Father with type 2 diabetes and end-stage renal disease. SOCIAL HISTORY: No alcohol, tobacco, or drugs. REVIEW OF SYSTEMS: A 12-point review of systems was done and was all negative unless stated in the history of present illness. PHYSICAL EXAMINATION: VITAL SIGNS: Initially on admission, blood pressure was 69/53, currently at 89/72; pulse of 89, respiratory rate 21, saturating 100% on room air. GENERAL: Awake, alert, and oriented x3, in no distress. HEENT: Normocephalic and atraumatic. NECK: Supple. LUNGS: Clear. CARDIOVASCULAR: S1 and S2. No S3 or S4. No murmurs. ABDOMEN: Soft. Positive bowel sounds. EXTREMITIES: No edema. SKIN: Warm and dry. LABORATORY DATA: Laboratory work was reviewed. UA was unremarkable. CBC and chemistries were all reviewed. ASSESSMENT: 1. Septic shock, significantly improved. 2. Febrile illness. 3. History of dilated cardiomyopathy, most recent echo with normalized ejection fraction. 4. History of Still disease. PLAN: 1. We will repeat echo and make sure that his LV function is not an issue again. 2. Continue other medications. Continue to hold any hypertension medications given his low blood pressure. 3. We will follow. Job ID: [id number]
[2018-11-09] MEDS ORDERED: Cosyntropin 250 MCG VIAL SLOW IVP SCH (18:00)
--- NOTE | 2018-11-09 18:42 | CON ---
DATE OF CONSULTATION: 11/09/2018 HISTORY OF PRESENT ILLNESS: Mr. Knight is a wonderfully pleasant 58-year-old gentleman with Still disease. He was recently in the hospital with clinical sepsis. No source of sepsis was identified. He was identified as having a depressed ejection fraction, and we eventually developed a belief that perhaps he had developed myocarditis with his Still disease. He reports that he has been compliant with his medication, but since that discharge, he has not been to see Dr. Barney. He presented hypotensive, requiring pressors again. He has been weaned off his pressors. I have ordered a repeat echocardiogram. His echocardiogram last admission showed significant improvement prior to discharge. PAST MEDICAL HISTORY: Remarkable for diabetes, rheumatoid arthritis, DVT, lipid disorder, hypertension, cholecystectomy, shoulder repair, left knee repair, and cervical spine surgery. He was given the diagnosis of pneumonia last admission, but I do not believe he had pneumonia. MEDICATIONS: He is chronically on 1. Xarelto. 2. Metformin. 3. Levemir. 4. Zetia. 5. Flomax. 6. Prednisone. 7. Coreg. ALLERGIES: HE REPORTS ALLERGIES TO VANCOMYCIN. FAMILY HISTORY: Positive for peripheral vascular disease. SOCIAL HISTORY: Nonsmoker, nondrinker. REVIEW OF SYSTEMS: A 10-point review of systems was otherwise negative. PHYSICAL EXAMINATION: VITAL SIGNS: Blood pressure is in the 90s to low 100s, now heart rate is in 80s, respiratory rate is in the teens. GENERAL: He is in no distress. He talks in complete sentences. HEENT: Pupils are equal. Sclerae are anicteric. Extraocular movements are full. NECK: Supple. No lymphadenopathy. LUNGS: Clear. HEART: Regular rhythm. S1 and S2 normal. I do not hear murmur or gallop. ABDOMEN: Soft and nontender. EXTREMITIES: Without clubbing, cyanosis, or edema. IMAGING DATA: Chest x-ray is clear. IMPRESSION AND PLAN: Hypotension of unclear etiology. Probably, we need to switch him to Decadron and do an ACTH stimulation test and see if he has an appropriate cortisol response. He had a belief that perhaps his hypotension may have been myocarditis related last admission, but with this recurrence, this would seem unlikely. I have recommended repeat echo and consult by Cardiology. He does have a left shift, but all of his cultures are negative. Review on lab work and microbiology. We will be happy to continue to follow Mr. Knight with the other physicians. Job ID: [id number]
[2018-11-09] MEDS: Insulin Glargine 10 UNITS in Pre-Filled Syringe SC SCH (21:22)
[2018-11-10] MEDS: Cefepime 2 GM in Sodium Chloride 0.9% 100 ML IVPB SCH ×2 (04:10→16:27)
[2018-11-10] MEDS: Sodium Chloride 0.9% 1,000 ML IV SCH (05:51)
[2018-11-10] MEDS ORDERED: predniSONE 20 MG TAB PO SCH (08:00)
[2018-11-10] MEDS ORDERED: Cosyntropin 250 MCG VIAL SLOW IVP SCH (10:00)
[2018-11-10] MEDS: Ferrous Sulfate 325 MG TAB PO SCH ×2 (10:17→22:03)
[2018-11-10] MEDS: Folic Acid 1 MG TAB PO SCH (10:18)
[2018-11-10] MEDS: Famotidine 20 MG TAB PO SCH (10:22)
[2018-11-10] MEDS: Tamsulosin HCl 0.4 MG CAP PO SCH (10:23)
[2018-11-10] MEDS: Saccharomyces boulardii 250 MG CAP PO SCH (10:24)
[2018-11-10] MEDS: Rivaroxaban 10 MG TAB PO SCH (10:25)
--- NOTE | 2018-11-10 10:27 | PRG ---
DATE OF SERVICE: 11/10/2018 SUBJECTIVE: Mr. Knight'francis cultures remain negative. He had an echocardiogram done this morning. The etiology of his hypotension remains unclear. OBJECTIVE: VITAL SIGNS: Blood pressure 103/63, heart rate 96, respiratory rate 20s, oximetry is 99 on room air. He is afebrile. LUNGS: Clear. HEART: Regular rhythm. ABDOMEN: Soft and nontender. EXTREMITIES: Without edema. LABORATORY STUDIES: There is no new lab today other than glucoses. IMPRESSION: Status post clinical presentation suggestive of sepsis twice this year. Last visit, he had negative cultures. In this visit, he also has negative cultures. I would wonder about adrenal crisis, although he tells me he was taking 20 mg a day of prednisone prior to admission. Assuming he was absorbing this, it would seem to be unlikely that this was an adrenal crisis. In any event, an ACTH stimulation test was ordered for this morning. It has not been done yet. We will await these results. Other problems include; 1. Rheumatoid arthritis. 2. Chronic kidney disease. 3. Mildly elevated liver enzymes. 4. Elevated CPK of unclear etiology. He has no reason to have rhabdomyolysis which brings up the possibility of polymyositis mixed in with his autoimmune disease (Still disease). 5. Hypoalbuminemia. 6. Cardiomyopathy last admission that improved by discharge. It was felt that he had myocarditis brought on by Still disease. He had a repeat echo done today. We will continue to follow. Some of these events are unlikely to be coronary ischemia, although I guess this needs to be kept in mind given his diabetes. Job ID: [id number]
[2018-11-10] MEDS: Dexamethasone 4 MG TAB PO SCH (12:22)
[2018-11-10] MEDS: HumaLOG 300 UNITS/3 ML VIAL SC PRN ×3 (12:25→22:03)
--- NOTE | 2018-11-10 16:53 | PDOC.CTH ---
Cardiology Progress Note - Subjective He is doing well. No new issues. Walking around the halls feeling better. - Objective Vital Signs Temp Pulse Resp BP BP Pulse Ox 11/10/18 15:00 98 F 91 20 104/55 L 11/10/18 08:40 97.5 F L 96 20 103/63 99 Weight 160 lb 3.2 oz 11/09/18 11/10/18 11/11/18 06:59 06:59 06:59 Intake Total 5157 3512 Output Total 3845 2355 Balance 1312 1157 - Physical Examination General/Neuro: alert & oriented x3, NAD Neck: no JVD present Lungs: CTA, unlabored respirations Heart: RRR Abdomen: NT/ND Extremities: other: (no edema) - Telemetry Telemetry Rhythm: NSR - Labs Result Diagrams: 11/09/18 04:30 11/09/18 04:30 Troponin/CKMB CK-MB (CK-2) 7.5 ng/mL (0-6.6) H* 11/07/18 11:09 Troponin I 0.067 ng/mL (< 0.028) H 11/07/18 11:09 - Assessment/Plan 1. Dilated Cardiomyopathy 2. Hx. of Still disease. 3. Reduced LV function now at 40-45% 4. Septic shock, improved. PLAN: - He stopped his CHF meds as his BP was borderline low. - Will plan on restarting slowly as BP allows. Currently still borderline low. - Will follow.
--- NOTE | 2018-11-10 17:34 | PDOC.PN ---
- Subjective Encounter Start Date: 11/10/18 Encounter Start Time: 11:00 Mr. Knight was seen today in follow-up. He is feeling much better. He denies abdominal pain. He is less weak. - Objective Resuscitation Status - Order Detail: 11/07/18 13:36 Resuscitation Status Routine Resuscitation Status: FULL: Full Resuscitation MAR Reviewed: Yes Vital Signs & Weight: Vital Signs (12 hours) Temp Pulse Resp BP BP Pulse Ox 11/10/18 15:00 98 F 91 20 104/55 L 11/10/18 08:40 97.5 F L 96 20 103/63 99 Weight Weight 160 lb 3.2 oz Most Recent Monitor Data Heart Rate from ECG 96 NIBP 92/66 NIBP BP-Mean 74 Respiration from ECG 16 SpO2 100 I&O: 11/09/18 11/10/18 11/11/18 06:59 06:59 06:59 Intake Total 5157 3512 Output Total 3845 2355 Balance 1312 1157 Result Diagrams: 11/09/18 04:30 11/09/18 04:30 Additional Labs: Accuchecks 11/10/18 11/10/18 11/10/18 16:52 11:15 05:35 POC Glucose 344 H 450 H 243 H 11/09/18 20:53 POC Glucose 351 H Phys Exam - Physical Examination HEENT: PERRLA Respiratory: no wheezing, no rales, no rhonchi, clear to auscultation bilateral Cardiovascular: RRR, no significant murmur, no rub Gastrointestinal: soft, non-tender, no distention, positive bowel sounds Musculoskeletal: no edema, pulses present Dx/Plan (1) Sepsis Code(s): A41.9 - SEPSIS, UNSPECIFIED ORGANISM Status: Acute (2) UTI (urinary tract infection) Status: Acute (3) Metabolic encephalopathy Code(s): G93.41 - METABOLIC ENCEPHALOPATHY Status: Acute (4) BPH (benign prostatic hyperplasia) Code(s): N40.0 - BENIGN PROSTATIC HYPERPLASIA WITHOUT LOWER URINRY TRACT SYMP Status: Chronic (5) Diabetes type 2, controlled Code(s): E11.9 - TYPE 2 DIABETES MELLITUS WITHOUT COMPLICATIONS Status: Chronic (6) Acute kidney failure Status: Acute (7) 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 DISEASE Status: Acute - Plan * Sepsis- ? etiology- possibly urine source, however his UA was unimpressive- will continue Cefipime and Levaquin * All cultures are negative to date. He has an appropriate Cortisol response to ACTH, making adrenal crisis less likely .Will consult ID for recommendations going forward- his old records were reviewed. * DM- blood glucose is elevated- he will need better glycemic control- will increase his dose of insulin * Hypotension- improving- Cardiology input noted- His heart failure medications are on hold * Chronic systolic heart failure- compensated * Adult Still's disease- stable
[2018-11-10] MEDS: Sodium Chloride 0.45% 1,000 ML IV SCH (22:02)
[2018-11-10] MEDS: Insulin Glargine 20 UNITS in Pre-Filled Syringe 1 EACH SC SCH (22:03)
[2018-11-11] MEDS: Sodium Chloride 0.45% 1,000 ML IV SCH ×4 (01:59→21:39)
[2018-11-11] MEDS: Cefepime 2 GM in Sodium Chloride 0.9% 100 ML IVPB SCH (02:02)
[2018-11-11 05:17] LABS: #Basophils 0.1 thou/uL (0.0-0.2); #Lymphocytes 0.7 thou/uL (1.20-3.40); #Monocytes 0.4 thou/uL (0.11-0.59); #Neutrophils 2.7 thou/uL (1.40-6.50); %Basophils 1.4 % (0.0-1.0); %Eosinophils 0.2 % (0.0-10.0); %Lymphocytes 17.9 % (21.0-51.0); %Neutrophils 70.6 % (42.0-75.0); Hemoglobin 11.5 g/dL (14.0-18.0); Mean Corpuscular HGB CONC 33.9 g/dL (32.0-36.0); Mean Corpuscular Hemoglobin 30.6 pg (27.0-31.0); Mean Corpuscular Volume 90.4 fL (78.0-98.0); Mean Platelet Volume 8.7 fL (7.4-10.4); Platelet Count 121 thou/uL (130-400); RBC Distribution Width 14.9 % (11.5-14.5); Red Blood Cell (RBC) Count 3.75 mill/uL (4.70-6.10); White Blood Cell (WBC) Count 3.8 thou/uL (4.8-10.8)
[2018-11-11 05:38] LABS: Anion Gap 13 mmol/L (10-20); BUN (Urea Nitrogen) 38 mg/dL (8.4-25.7); Calc. Creatinine Clearance 64 mL/min (70-130); Calcium 8.5 mg/dL (7.8-10.44); Carbon Dioxide 18 mmol/L (22-29); Chloride 113 mmol/L (98-107); Estimated GFR-MDRD 69; Glucose 286 mg/dL (70-105); Potassium 3.6 mmol/L (3.5-5.1); Sodium 140 mmol/L (136-145)
[2018-11-11] MEDS ORDERED: Non-Formulary Item 1 EACH (Levemir Flexpen [Levemir Flexpen] 40 UNIT) SC SCH (09:00)
[2018-11-11] MEDS: Folic Acid 1 MG TAB PO SCH (09:40)
[2018-11-11] MEDS: Rivaroxaban 10 MG TAB PO SCH (09:41)
[2018-11-11] MEDS: Saccharomyces boulardii 250 MG CAP PO SCH (09:41)
[2018-11-11] MEDS: Ferrous Sulfate 325 MG TAB PO SCH ×2 (09:41→21:38)
[2018-11-11] MEDS: Tamsulosin HCl 0.4 MG CAP PO SCH (09:41)
[2018-11-11] MEDS: Dexamethasone 4 MG TAB PO SCH (09:41)
[2018-11-11] MEDS: Famotidine 20 MG TAB PO SCH (09:41)
[2018-11-11] MEDS: Insulin Glargine 40 UNITS in Pre-Filled Syringe 1 EACH SC SCH (09:45)
--- NOTE | 2018-11-11 11:47 | PDOC.PN ---
- Subjective Encounter Start Date: 11/11/18 Encounter Start Time: 11:45 Mr. Knight was seen today in follow-up of sepsis syndrome. He does not have any complaints this morning. He feels stronger. He denies abdominal pain. He does not sense any trouble voiding his bladder. - Objective Resuscitation Status - Order Detail: 11/07/18 13:36 Resuscitation Status Routine Resuscitation Status: FULL: Full Resuscitation MAR Reviewed: Yes Vital Signs & Weight: Vital Signs (12 hours) Temp Pulse Resp BP Pulse Ox 11/11/18 07:25 97.6 F 67 18 109/64 99 11/11/18 05:10 97.8 F 70 20 92/55 L 97 Weight Weight 161 lb Most Recent Monitor Data Heart Rate from ECG 96 NIBP 92/66 NIBP BP-Mean 74 Respiration from ECG 16 SpO2 100 I&O: 11/10/18 11/11/18 11/12/18 06:59 06:59 06:59 Intake Total 3512 940 Output Total 2355 1100 Balance 1157 -160 Result Diagrams: 11/11/18 04:25 11/11/18 04:25 Additional Labs: Accuchecks 11/11/18 11/11/18 11/10/18 11:02 05:46 20:26 POC Glucose 352 H 257 H 421 H 11/10/18 11/10/18 16:52 11:15 POC Glucose 344 H 450 H Phys Exam - Physical Examination HEENT: PERRLA Respiratory: no wheezing, no rales, no rhonchi, clear to auscultation bilateral Cardiovascular: RRR, no significant murmur, no rub Gastrointestinal: soft, non-tender, no distention, positive bowel sounds Musculoskeletal: no edema, pulses present Dx/Plan (1) Sepsis Code(s): A41.9 - SEPSIS, UNSPECIFIED ORGANISM Status: Acute (2) UTI (urinary tract infection) Status: Acute (3) Metabolic encephalopathy Code(s): G93.41 - METABOLIC ENCEPHALOPATHY Status: Acute (4) BPH (benign prostatic hyperplasia) Code(s): N40.0 - BENIGN PROSTATIC HYPERPLASIA WITHOUT LOWER URINRY TRACT SYMP Status: Chronic (5) Diabetes type 2, controlled Code(s): E11.9 - TYPE 2 DIABETES MELLITUS WITHOUT COMPLICATIONS Status: Chronic (6) Acute kidney failure Status: Acute (7) 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 DISEASE Status: Acute - Plan * Sepsis- ? etiology- cultures are negative, blood pressure is better, Leukocytosis has resolved * Await ID recommendations regarding antibiotics * Hypotension- improved * DM- blood glucose is elevated- will titrate insulin * Adult Still's disease- patient can take his own medications ( Kineret ).
[2018-11-11] MEDS: HumaLOG 300 UNITS/3 ML VIAL SC PRN ×3 (12:01→21:39)
--- NOTE | 2018-11-11 12:53 | PRG ---
DATE OF SERVICE: 11/11/2018 SUBJECTIVE: Mr. Knight is feeling better. He is up in a chair, eating lunch. OBJECTIVE: VITAL SIGNS: On exam, temperature is 97.6, pulse 67, respirations 18, O2 sat 99% on room air, and blood pressure 109/64. GENERAL: He does not appear short of breath. HEENT: Unremarkable. NECK: No JVD. CHEST: Clear anteriorly and posteriorly. CARDIAC: S1 and S2, regular. ABDOMEN: Soft. EXTREMITIES: No edema or joint swelling. LABORATORY DATA: White blood cell count 3.8, hematocrit 33.9, and platelet count 121. Sodium 140, potassium 3.6, chloride 113, CO2 of 18, BUN 38, creatinine 1.3, and glucose 286. ASSESSMENT: 1. Rheumatoid arthritis/adult onset Still's disease. 2. Chronic kidney disease. 3. Hypoalbuminemia. 4. Cardiomyopathy. PLAN: The patient is currently on antibiotics. Dr. Nickerson was consulted to see. We are awaiting his recommendations. I am not sure how long he will need to remain on antibiotics. He seems to be doing well on the daily Decadron dose. We may need Rheumatology's advice on how quickly to wean that. Job ID: [id number]
--- NOTE | 2018-11-11 15:22 | PDOC.CTH ---
Cardiology Progress Note - Subjective The pt seen and examined. No overnight events. No cardiac complaints. - Objective Vital Signs Temp Pulse Resp BP BP Pulse Ox 11/11/18 15:00 97.6 F 74 20 113/67 100 11/11/18 07:25 97.6 F 67 18 109/64 99 11/11/18 05:10 97.8 F 70 20 92/55 L 97 Weight 161 lb 11/10/18 11/11/18 11/12/18 06:59 06:59 06:59 Intake Total 3512 940 Output Total 2355 1100 Balance 1157 -160 - Physical Examination General/Neuro: alert & oriented x3 Neck: no JVD present Lungs: CTA Heart: RRR Abdomen: soft Extremities: other: (No edema) - Telemetry Telemetry Rhythm: SR - Labs Result Diagrams: 11/11/18 04:25 11/11/18 04:25 Troponin/CKMB CK-MB (CK-2) 7.5 ng/mL (0-6.6) H* 11/07/18 11:09 Troponin I 0.067 ng/mL (< 0.028) H 11/07/18 11:09 - Assessment/Plan 1. Dilated CMY - stable 2. Acute on Chronic Systolic HF with EF 40-45% - holding diuretic and BP med are on hold for now 2/2 Hypotensive 3. Hx. of Still disease - 4. Septic shock - improved. 5. CARL - improving with NS @ 75ml/h 6. DM type 2 - managed by PCP 7. UTI - on ABX 8. Hypotension - stable MAR reviewed Pt. seen and eval. by me. I agree with the A/P by the HOUSING MANAGER. Continue present treatments. gjm Review of Systems - Review of Systems Constitutional: reports: no symptoms reported EENTM: reports: no symptoms reported Respiratory: reports: no symptoms reported Cardiac (ROS): reports: no symptoms reported ABD/GI: reports: no symptoms reported : reports: no symptoms reported
--- NOTE | 2018-11-11 19:27 | CON ---
DATE OF CONSULTATION: 11/11/2018 REASON FOR CONSULTATION: Fever. HISTORY OF PRESENT ILLNESS: A 58-year-old gentleman, history of Adult Still disease/rheumatoid arthritis on anakinra and low-dose prednisone. Last seen in the hospital in August when he came with fever and arthralgias. The opportunistic pathogen workup was negative. All the cultures are negative and we felt that the exacerbation of his underlying autoimmune syndrome was responsible for the decompensation. Coincidentally, he had discontinued the anakinra. At this time, he was getting on anakinra as scheduled, but still became ill and was admitted, after apparently passing out in the home setting. He had a temperature of 102.9. He was confused. He was incontinent of urine and feces. No seizure activity was actually witnessed. No headaches. No visual symptoms, sore throat, odynophagia, or dysphagia. No back pain. No cough or sputum production. No chest pain. He did have some cough earlier, but not any more. No genitourinary symptoms. His joint symptoms have actually improved recently. PAST MEDICAL HISTORY: Rheumatoid arthritis/Adult Still disease, prior DVT, type 2 diabetes, hyperlipidemia, and hypertension. PAST SURGICAL HISTORY: Cholecystectomy, C-spine fusion, and left shoulder surgery. ALLERGIES: NONE. SOCIAL HISTORY: Never smoker. Lives with mother. FAMILY HISTORY: Coronary artery disease and type 2 diabetes. CURRENT MEDICATIONS: 1. Tylenol. 2. Cortrosyn. 3. Decadron. 4. Feosol. 5. Folvite. 6. Insulin. 7. Magnesium. 8. Anakinra. 9. Potassium. 10. Saccharomyces. 11. Tramadol. PHYSICAL EXAMINATION: VITAL SIGNS: T-max 98.3, blood pressure 113/67, pulse 74, respirations 18 to 20, and O2 saturation 100. SKIN: Normal peripheral IV access. The patient is voiding in the toilet. He did have urinary catheter, but that has been removed. No lymphadenopathy. HEENT: Ocular movements conjugate. Oral cavity normal. NECK: Supple. LUNGS: Symmetric clear breath sounds. S1 and S2. Regular rate. No S3 or S4. ABDOMEN: Soft, not distended or tender. No ascites. No bladder distention. EXTREMITIES: The joints actually feeling better than previously noted. NEUROLOGIC: Nonfocal. LABORATORY DATA: White cell count 3.8, hemoglobin 11.5, and platelets 121 with 70% neutrophils. Creatinine 1.29. Ferritin was 5787. AST 128, ALT 58, alkaline phosphatase 115, and albumin 3.1. CK was 2800. ASSESSMENT: 1. Adult Still disease/rheumatoid arthritis on anakinra and low-dose steroids. 2. Fever with altered mental status, episode of fall. 3. Rhabdomyolysis associated with the above. 4. Neutrophilia with bandemia. DISCUSSION: The differential diagnosis includes a recrudescence of his autoimmune syndrome versus an opportunistic infectious process including the possibility of bacteremia. Blood cultures thus far negative 48 hours, possibility of respiratory viral infection is also considered in view of the current ongoing transmission of influenza in the community. We will check respiratory virus PCR panel. Discontinue antimicrobial therapy. The patient did have a previous venous thrombosis and we will repeat his duplex ultrasound lower extremities as he did not have pulmonary embolism. Job ID: [id number]
[2018-11-11] MEDS: Insulin Glargine 20 UNITS in Pre-Filled Syringe 1 EACH SC SCH (21:38)
[2018-11-11] MEDS ORDERED: Activase 2 MG VIAL CATH SCH (23:00)
[2018-11-11] MEDS ORDERED: Sterile Water 10 ML VIAL IVP SCH (23:00)
[2018-11-12] MEDS: Sodium Chloride 0.45% 1,000 ML IV SCH (05:23)
[2018-11-12] MEDS: Rivaroxaban 10 MG TAB PO SCH (09:20)
[2018-11-12] MEDS: Famotidine 20 MG TAB PO SCH (09:21)
[2018-11-12] MEDS: Tamsulosin HCl 0.4 MG CAP PO SCH (09:21)
[2018-11-12] MEDS: Saccharomyces boulardii 250 MG CAP PO SCH (09:24)
[2018-11-12] MEDS: Ferrous Sulfate 325 MG TAB PO SCH ×2 (09:24→21:39)
[2018-11-12] MEDS: Dexamethasone 4 MG TAB PO SCH (09:25)
[2018-11-12] MEDS: Insulin Glargine 40 UNITS in Pre-Filled Syringe 1 EACH SC SCH (09:28)
--- NOTE | 2018-11-12 09:31 | ULT ---
BILATERAL LOWER EXTREMITY VENOUS DOPPLER ULTRASOUND 11/11/18 COMPARISON: 10/15/15 HISTORY: History of DVT, syncope. TECHNIQUE: Multiplanar soria scale sonographic imaging venous structures bilateral lower extremities obtained wit h color flow and spectral analysis. FINDINGS: Bilateral common femoral veins, greater saphenous veins, profunda femoral veins, femoral veins, and p opliteal veins are patent with no evidence for deep venous thrombosis on either side. The right posterior tibial vein is noncompressible and contains echogenic thrombus consistent with cl ot within the right posterior tibial vein, as seen on the 10/15/15 exam. Left posterior tibial vein is patent. IMPRESSION: Stable echogenic thrombus within the right posterior tibial vein. No evidence for deep venous thrombo sis on either side. POS: TIMUR
[2018-11-12] MEDS: Folic Acid 1 MG TAB PO SCH (09:32)
--- NOTE | 2018-11-12 12:58 | PDOC.PN ---
- Subjective Encounter Start Date: 11/12/18 Encounter Start Time: 12:45 Subjective: f/u for hypotension, adrenal insufficiency and suspected sepsis with neg -: cx's. Abx now d/c'd. Feels much better overall. Appetite is good. -: Ambulating without difficulty. - Objective Resuscitation Status - Order Detail: 11/07/18 13:36 Resuscitation Status Routine Resuscitation Status: FULL: Full Resuscitation MAR Reviewed: Yes Vital Signs & Weight: Vital Signs (12 hours) Temp Pulse Resp BP Pulse Ox 11/12/18 08:00 99 11/12/18 07:30 97.6 F 73 20 97/57 L 99 11/12/18 04:50 97.9 F 77 20 93/53 L 99 Weight Weight 161 lb Most Recent Monitor Data Heart Rate from ECG 96 NIBP 92/66 NIBP BP-Mean 74 Respiration from ECG 16 SpO2 100 I&O: 11/11/18 11/12/18 11/13/18 06:59 06:59 06:59 Intake Total 940 Output Total 1100 Balance -160 Result Diagrams: 11/11/18 04:25 11/11/18 04:25 Additional Labs: Accuchecks 11/12/18 11/12/18 11/11/18 12:30 05:26 20:19 POC Glucose 197 H 104 301 H 11/11/18 16:46 POC Glucose 245 H Microbiology 02/14/18 10:01 Stool Stool Occult Blood (APRIL) - Final 02/14/18 09:49 Urine voided Urine Culture - Final Yeast species 11/07/18 12:41 Nasal swab Influenza Types A,B Direct EIA - Final 11/07/18 11:29 Central Line - Right external jugular vein Blood Culture - Final NO GROWTH IN 5 DAYS 11/07/18 11:10 Central Line - Right external jugular vein Blood Culture - Final NO GROWTH IN 5 DAYS 11/07/18 10:08 Urine Straight Catheter Urine Culture - Final 02/15/18 11:45 Central Line - Right Common Femoral Vein Blood Culture - Preliminary NO GROWTH AT 48 HOURS 02/14/18 09:00 Venous blood - Left Arm Blood Culture - Preliminary NO GROWTH AT 48 HOURS Laboratory Tests 02/15/18 02/15/18 02/15/18 03:37 03:37 11:45 WBC 23.2 H Hgb 7.8 L Plt Count Neutrophils % (Manual) 50 Band Neuts % (Manual) 31 H Potassium 2.9 L* 2.9 L* Creatinine 02/16/18 02/16/18 02/17/18 05:20 05:20 05:46 WBC 18.4 H Hgb 7.1 L Plt Count Neutrophils % (Manual) 28 L 35 L Band Neuts % (Manual) 23 H 18 H Potassium 3.2 L Creatinine 11/07/18 11/07/18 11/08/18 11:09 11:09 05:15 WBC 15.7 H Hgb 13.9 L Plt Count 161 Neutrophils % (Manual) Band Neuts % (Manual) Potassium Creatinine 3.08 H 2.16 H 11/08/18 11/09/18 11/09/18 05:15 04:30 04:30 WBC 17.4 H 8.8 Hgb 13.9 L 11.6 L Plt Count 167 129 L Neutrophils % (Manual) Band Neuts % (Manual) Potassium Creatinine 1.62 H Radiology Reviewed by me: Yes (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) EKG Reviewed by me: Yes (Tele - SR) Phys Exam - Physical Examination Constitutional: NAD HEENT: PERRLA, sclera anicteric, oral pharynx no lesions Neck: no nodes, no JVD, supple, full ROM Respiratory: no wheezing, no rales, no rhonchi, clear to auscultation bilateral S1, S2 Cardiovascular: RRR, no significant murmur, no rub, gallop Gastrointestinal: soft, non-tender, no distention, positive bowel sounds mild LE edema bilat Musculoskeletal: pulses present Neurological: normal sensation, moves all 4 limbs Psychiatric: A&O x 3 Skin: normal turgor, cap refill <2 seconds Dx/Plan (1) Sepsis Code(s): A41.9 - SEPSIS, UNSPECIFIED ORGANISM Status: Acute Comment: Suspected however all cx negative, abx now d/c'd, continue supportive mgmt (2) Acute kidney failure Status: Acute Comment: Improved with IVF's and avoidance of nephrotoxic meds, saline lock IVF's (3) Hypotension Status: Chronic Comment: Likely multifactorial in conjuction with adrenal insufficiciency and iatrogenic influence, titrate home BP regimen (4) Chronic anticoagulation Code(s): Z79.01 - USP (CURRENT) USE OF ANTICOAGULANTS Status: Chronic Comment: Continue Xarelto - Plan 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
--- NOTE | 2018-11-12 13:28 | PRG ---
DATE OF SERVICE: 11/12/2018 SUBJECTIVE: He feels better except for some leg swelling. He is having no shortness of breath. OBJECTIVE: VITAL SIGNS: Temperature 97.6, pulse 73, respirations 20, O2 saturation 99%, and blood pressure 97/57. HEENT: Unremarkable. NECK: No JVD. CHEST: Clear anteriorly. CARDIAC: S1, S2. Regular. ABDOMEN: Soft. EXTREMITIES: Maybe some mild foot swelling. IMAGING: Ultrasound showed a thrombus in the right posterior tibial vein which apparently has been there. ASSESSMENT: 1. Adult onset Still disease. 2. Rhabdomyolysis. 3. Cardiomyopathy. PLAN: Seems stable. He is currently on Xarelto for the DVT. Antibiotics have been stopped. He is receiving Decadron. We will probably begin tapering the dose tomorrow. Job ID: [id number]
--- NOTE | 2018-11-12 14:55 | PDOC.CTH ---
Cardiology Progress Note - Subjective The pt seen and examined. No overnight events. No cardiac complaints. - Objective Vital Signs Temp Pulse Resp BP Pulse Ox 11/12/18 08:00 99 11/12/18 07:30 97.6 F 73 20 97/57 L 99 11/12/18 04:50 97.9 F 77 20 93/53 L 99 Weight 161 lb 11/11/18 11/12/18 11/13/18 06:59 06:59 06:59 Intake Total 940 Output Total 1100 Balance -160 - Physical Examination General/Neuro: alert & oriented x3 Neck: no JVD present Lungs: CTA Heart: RRR Abdomen: soft Extremities: other: - Telemetry Telemetry Rhythm: SR - Labs Result Diagrams: 11/11/18 04:25 11/11/18 04:25 Troponin/CKMB CK-MB (CK-2) 7.5 ng/mL (0-6.6) H* 11/07/18 11:09 Troponin I 0.067 ng/mL (< 0.028) H 11/07/18 11:09 - Assessment/Plan 1. Dilated CMY - stable 2. Acute on Chronic Systolic HF with EF 40-45% - diuretic and BP med are on hold for now 2/2 Hypotensive 3. Hx. of Still disease - stable with Decadron 10mg po daily 4. Septic shock - improved. 5. CARL - improving with NS @ 75ml/h 6. DM type 2 - managed by PCP 7. UTI - on ABX 8. Hypotension - stable MAR reviewed * From tomorrow, Dr Rosa will f/u with the pt. Pt. seen and eval. by me. I agree with the A/P by the KILN STACKER. we have discussed the pt. and plan. gjm Review of Systems - Review of Systems Constitutional: reports: no symptoms reported EENTM: reports: no symptoms reported Respiratory: reports: no symptoms reported Cardiac (ROS): reports: no symptoms reported ABD/GI: reports: no symptoms reported : reports: no symptoms reported Musculoskeletal: reports: no symptoms reported, muscle pain
[2018-11-12] MEDS: HumaLOG 300 UNITS/3 ML VIAL SC PRN ×2 (17:24→21:40)
[2018-11-12] MEDS: Insulin Glargine 20 UNITS in Pre-Filled Syringe 1 EACH SC SCH (21:39)
[2018-11-13] MEDS: Rivaroxaban 10 MG TAB PO SCH (09:35)
[2018-11-13] MEDS: Dexamethasone 4 MG TAB PO SCH (09:35)
[2018-11-13] MEDS: Folic Acid 1 MG TAB PO SCH (09:36)
[2018-11-13] MEDS: Famotidine 20 MG TAB PO SCH (09:36)
[2018-11-13] MEDS: Tamsulosin HCl 0.4 MG CAP PO SCH (09:37)
[2018-11-13] MEDS: Saccharomyces boulardii 250 MG CAP PO SCH (09:37)
[2018-11-13] MEDS: Ferrous Sulfate 325 MG TAB PO SCH (09:37)
[2018-11-13] MEDS: Insulin Glargine 40 UNITS in Pre-Filled Syringe 1 EACH SC SCH (09:46)
--- NOTE | 2018-11-13 16:36 | PRG ---
DATE OF SERVICE: 11/13/2018 Stephani Knight's score on ACTH stimulation test from Tuesday was reviewed. He had a baseline cortisol level of 1. His 90 minute cortisol went to 11. This may explain his hypotension on admission as this might have been all an adrenal crisis. Otherwise, he is stable at this point in time. We will adjust his steroids. Job ID: [id number]
[2018-11-13 16:41] VITALS: BP 97/61; TEMP 99
[2018-11-13] MEDS: HumaLOG 300 UNITS/3 ML VIAL SC PRN (16:52)
[2018-11-13] MEDS ORDERED: predniSONE 20 MG TAB PO SCH (21:00)
--- NOTE | 2018-11-14 02:43 | DIS ---
DATE OF ADMISSION: 11/07/2018 DATE OF DISCHARGE: 11/13/2018 DISCHARGE DIAGNOSES: 1. Severe sepsis with septic shock, organism not identified. 2. Acute toxic metabolic encephalopathy, multifactorial, resolved. 3. Acute on chronic kidney disease, improved. 4. Rhabdomyolysis secondary to #1, resolving. 5. Adrenal insufficiency, improved. 6. Diastolic dysfunction with preserved ejection fraction of 60% to 65%. 7. Diabetes mellitus, type 2, insulin requiring, stable. CONSULTATIONS: Dr. Styles and Dr. Munoz with Pulmonology Critical Care Service. Dr. Nickerson with Infectious Disease Service. PERTINENT LAB AND X-RAY FINDINGS: Creatinine ranged between 1.29 to 3.08. Estimated GFR ranged between 25 to 69, ferritin level 5787, AST ranged between 94 to 128, ALT ranged between 36 to 58. Serum cortisol level 19. CBC showed a white blood cell count ranged between 3.8 to 17.4, hemoglobin ranged between 11.5 to 13.9. Urine culture dated 11/07/2018, showed 25,000 to 50,000 colonies of mixed skin sanna. Blood culture x2 dated 11/07/2018, showed no growth at 5 days. Influenza A and B antigen dated 11/07/2018, negative. Portable chest x-ray dated 11/07/2018, showed no focal consolidation. 2D transthoracic echocardiogram dated 11/10/2018, showed ejection fraction of 40% to 45%. Grade 2/3 diastolic dysfunction. Mild to moderate aortic regurgitation. Moderate tricuspid valve regurgitation. Bilateral lower extremity venous Doppler study dated 11/11/2018, showed stable echogenic thrombus in the right posterior tibial vein, chronic. HOSPITAL COURSE: The patient was initially admitted after presenting with fever and altered mental status with concern for sepsis including septic shock. The patient's initial systolic blood pressures were in the 50s to 70s, placed on IV fluids and initial empiric antibiotic coverage with IV Rocephin, Solu-Cortef and Levophed infusion. The patient required wrist restraints initially due to altered mentation and combativeness. The patient underwent extensive evaluation including multiple imaging studies and culture results showing essentially negative findings without dominant organism. The patient continued on IV cefepime and Levaquin empirically pending final culture review. The patient's blood pressure did stabilize with administration of Solu-Cortef in addition to IV fluids and general supportive management. The patient's overall mental status did improve with aggressive supportive management, returning to baseline mental status function prior to discharge. The patient also received IV fluids due to acute kidney injury in the context of known chronic kidney disease. The patient continued to clinically improve with supportive management and transitioned to the telemetry unit. The patient was noted with mild hypotension and continued on dexamethasone in addition to holding all blood pressure medications. Currently, the patient is recommended to discontinue Coreg due to hypotension, however, remains asymptomatic currently. I have examined the patient at the time of discharge and discussed followup instructions. The patient verbalized understanding and agreement and ready for discharge on 11/13/2018. DISCHARGE MEDICATIONS: 1. Anakinra 100 mg subcutaneously at bedtime. 2. Lipitor 40 mg p.o. q.a.m. 3. Zetia 10 mg p.o. q.a.m. 4. Pepcid 20 mg p.o. daily. 5. Folic acid 1 mg p.o. daily. 6. Levemir 40 units subcutaneously q.a.m. 7. Multivitamin 1 tablet p.o. daily. 8. Prednisone 20 mg p.o. q.a.m. 9. Januvia 100 mg p.o. daily. 10. Flomax 0.4 mg p.o. q.a.m. 11. Tramadol 50 mg p.o. t.i.d. p.r.n. 12. Xarelto 20 mg p.o. q.a.m. FOLLOWUP: The patient may follow up with Dr. William Heredia, within 7 days of discharge. CONDITION ON DISCHARGE: Stable. ACTIVITY: Ad-reji. DIET: ADA. SPECIAL INSTRUCTIONS: Recommend monitoring of serial blood pressures and continue hold of Coreg due to hypotension. CODE STATUS: Full. DISPOSITION: Home, 11/13/2018. TIME SPENT: Total time preparing and coordinating discharge, 35 minutes. Job ID: [id number]
== END 2018-11-13 17:28 | disposition home or self-care (01) | DRG 871 ==
LOC: ERS 09:00 → CCU 14:18 → 2NO 11-09 18:11
PROVIDERS: ADMIT Family Medicine; ATTEND Family Medicine
PROC: 3E033XZ Introduction of Vasopressor into Peripheral Vein, Percutaneous Approach (ICD-10-PCS; principal; 2018-11-07)
DX: A41.9 Sepsis, unspecified organism (principal); R65.21 Severe sepsis with septic shock; G92 Toxic encephalopathy; I50.23 Acute on chronic systolic (congestive) heart failure; N17.9 Acute kidney failure, unspecified; M62.82 Rhabdomyolysis; E27.40 Unspecified adrenocortical insufficiency; I47.1 Supraventricular tachycardia; I42.0 Dilated cardiomyopathy; N39.0 Urinary tract infection, site not specified; I13.0 Hypertensive heart and chronic kidney disease with heart failure and stage 1 through stage 4 chronic kidney disease, or unspecified chronic kidney disease; M06.9 Rheumatoid arthritis, unspecified; N40.0 Benign prostatic hyperplasia without lower urinary tract symptoms; N18.9 Chronic kidney disease, unspecified; M06.1 Adult-onset Still's disease; E11.22 Type 2 diabetes mellitus with diabetic chronic kidney disease; E78.5 Hyperlipidemia, unspecified; Z79.52 Long term (current) use of systemic steroids; Z86.718 Personal history of other venous thrombosis and embolism; Z87.01 Personal history of pneumonia (recurrent); Z90.49 Acquired absence of other specified parts of digestive tract; Z79.01 Long term (current) use of anticoagulants; Z79.84 Long term (current) use of oral hypoglycemic drugs; Z79.4 Long term (current) use of insulin; Z79.899 Other long term (current) drug therapy
CPT/HCPCS: 36415; 36416; 36556; 51701; 71045; 80048; 80053; 80400; 81003; 81015; 82533; 82550; 82553; 82728; 83605; 84484; 85007; 85025; 85027; 87086; 87804; 93005; 93306; 93970; 96361; 96365; 96366; 96367; 96374; 99152; 99153; 99292; A4216; J0692; J0834; J1720; J1825; J1956; J2543; J2920; J2997; J7050; J8540; P9045; Q0162

== ENCOUNTER 2018-12-04 11:45 | Inpatient (IN) | payer MEDICARE ==
[2018-12-04 12:14] LABS: Hemoglobin 12.7 g/dL (14.0-18.0); Mean Corpuscular HGB CONC 31.7 g/dL (32.0-36.0); Mean Corpuscular Hemoglobin 29.1 pg (27.0-31.0); Mean Platelet Volume 7.6 fL (7.4-10.4); Platelet Count 169 thou/uL (130-400); RBC Distribution Width 14.8 % (11.5-14.5); Red Blood Cell (RBC) Count 4.37 mill/uL (4.70-6.10)
[2018-12-04] MEDS ORDERED: Ibuprofen 800 MG TAB ONE (12:15)
[2018-12-04 12:27] LABS: ALT (SGPT) 29 U/L (8-55); AST (SGOT) 36 U/L (5-34); Albumin 3.6 g/dL (3.5-5.0); Alkaline Phosphatase 96 U/L (40-150); Anion Gap 13 mmol/L (10-20); BUN (Urea Nitrogen) 14 mg/dL (8.4-25.7); Bilirubin, Total 0.5 mg/dL (0.2-1.2); Calc. Creatinine Clearance 0 mL/min (70-130); Calcium 8.6 mg/dL (7.8-10.44); Carbon Dioxide 25 mmol/L (22-29); Chloride 105 mmol/L (98-107); Estimated GFR-MDRD Greater than 90; Globulin 2.7 g/dL (2.4-3.5); Glucose 171 mg/dL (70-105); Potassium 3.4 mmol/L (3.5-5.1); Protein, Total 6.3 g/dL (6.0-8.3); Sodium 140 mmol/L (136-145)
[2018-12-04 12:28] LABS: Bilirubin Negative (Negative); Blood, Urine Negative (Negative); Clarity CLOUDY (Clear); Glucose, Urine (Dipstick) 500 mg/dL (Negative); Leukocyte Negative (Negative); Nitrite Negative (Negative); Protein, Urine (Dipstick) Negative (Neg-Trace); Specific Gravity, Urine 1.016 (1.002-1.036); Urobilinogen 0.2 mg/dL (0.2-1.0)
--- NOTE | 2018-12-04 12:32 | RAD ---
AP view chest. HISTORY: Sepsis, fever. AP view chest is obtained. The patient's head left shoulder arthroplasty. The lungs are well aerated. No evidence of acute intrathoracic abnormality seen. No evidence of effus ions, pneumonia or pneumothorax seen. IMPRESSION: unremarkable AP view chest.
[2018-12-04] MEDS ORDERED: Gentamicin 80 MG/2 ML VIAL ONE (12:35)
[2018-12-04] MEDS ORDERED: cefTRIAXone\\ROCEPHIN 2 GM VIAL ONE (12:35)
[2018-12-04 12:37] LABS: Band 32 % (5-11); Eosinophils 1 % (0-10); Lymphocytes 20 % (21-51); MDiff Complete? YES; Metamyelocyte 1 % (0-0); Neutrophil 46 % (42-75); RBC Morphology Normal
[2018-12-04] MEDS ORDERED: Gentamicin Sulfate 80 MG in Premix Bag 1 BAG IVPB SCH (12:45)
[2018-12-04] MEDS ORDERED: methylPREDNISolone Sod Succ 40 MG VIAL ONE (14:40)
[2018-12-04] MEDS ORDERED: Norepinephrine 8 MG/0.9% NS 250 ML ONE (14:41)
[2018-12-04] MEDS ORDERED: Ondansetron ODT 4 MG TAB PO PRN (14:42)
[2018-12-04] MEDS ORDERED: Dextrose 5% in Water 1,000 ML IV PRN (14:42)
[2018-12-04] MEDS ORDERED: Dextrose 50% Abboject 50 ML SYRINGE SLOW IVP PRN (14:42)
--- NOTE | 2018-12-04 15:09 | RAD ---
EXAM: Single view of the chest HISTORY: Central line placement COMPARISON: 12/04/2018 at 12:10 PM FINDINGS: Single view of the chest shows a normal sized cardiomediastinal silhouette. A left subclavi an central venous catheter is seen with its tip in the superior vena cava. No pneumothorax is seen. There is no evidence of consolidation, mass, or pleural effusion. The patient is status post left sindhu ulder arthroplasty. Degenerative changes are seen in the spine and right shoulder. IMPRESSION: Status post central line placement without evidence of complication.
[2018-12-04] MEDS ORDERED: Piperacillin/Tazobactam 3.375 GM VIAL ONE (15:13)
--- NOTE | 2018-12-04 15:35 | HP ---
PRIMARY CARE PROVIDER: Dr. William Heredia. DESCRIPTION OF PROCEDURE: The patient was brought to the emergency room today, referred to [facility] for possible sepsis. The patient all I can get out of him is he has cold. I have done a total review of systems, in which he has denied everything. He was sent here by either healthcare provider or home health with change in mental status and a temperature of 103. In his initial evaluation, his blood pressure was normal, his pulse was slightly slow, but over the past hour, his pulse is increased to 136 and his blood pressures dropped as low as 62/40. Arousal of his recent charts reveals that he has had a recent diagnosis of adrenal crisis. He has apparently had long-term use of steroids for rheumatoid arthritis. He currently cannot remember the last time he took his medicines. He has had multiple admissions for pneumonia and sepsis, which have all been unrevealing for an infective source. Currently, a central line is being placed by the emergency room physician. He is on his 3rd liter of IV fluid bolus. He has been started on Levophed and has received 20 mg of Solu-Medrol IV. His blood pressure is now in the 90 to 95 range. PAST MEDICAL HISTORY: Pertinent for; 1. Rheumatoid arthritis. 2. Adrenal insufficiency. 3. Diabetes mellitus, type 2, insulin dependent. 4. Dyslipidemia. CURRENT MEDICINES: 1. Prednisone 20 mg a day. 2. Januvia 100 mg a day. 3. Flomax 0.4 mg a day. 4. Xarelto 20 mg a day. 5. Levemir 40 units subcutaneous in the morning. 6. Folic acid 1 mg a day. 7. Pepcid 20 mg a day. 8. Zetia 10 mg a day. 9. Anakinra 100 mg subcutaneous at bedtime. 10. Lipitor 40 mg a day. ALLERGIES: NO KNOWN DRUG ALLERGIES. PAST SURGICAL HISTORY: 1. Cholecystectomy. 2. Left shoulder repair. 3. Left knee repair. 4. C-spine surgery. FAMILY HISTORY: Mother with coronary artery disease. Father with diabetes and end-stage renal disease requiring hemodialysis. SOCIAL HISTORY: Full code status. Resides with his mother, who is next of kin. No alcohol, tobacco, or illicit drug use. REVIEW OF SYSTEMS: As mentioned before, unobtainable due to the patient's altered mental status. PHYSICAL EXAMINATION: VITAL SIGNS: Currently, his pulse is 130, blood pressure is 91/47, respiratory rate 16, and O2 saturations 95. HEENT: Examination of his head, eyes, ears, nose, and throat revealed pupils are equal, round, and reactive. Extraocular movements are intact. Sclerae are white. Tympanic membranes clear. Nose is clear. Oral mucous membranes are wet. Dental hygiene is fair to poor. NECK: No jugular venous distention, adenopathy, or thyromegaly. CHEST: Clear to auscultation and percussion. HEART: Rapid, regular rhythm, without appreciated murmurs or gallops. ABDOMEN: Soft. Bowel sounds are normal. No hepatosplenomegaly. No masses. No rebound. EXTREMITIES: No cyanosis, clubbing, or edema. PULSES: Carotid, radial, femoral, and dorsalis pedis pulses palpable. SKIN: Warm and dry. No bruises. No rash. HEME/LYMPH: No tender or swollen lymph nodes. NEUROLOGIC: Cranial nerves 2 through 12 are intact. Moves all extremities. DIAGNOSTIC STUDIES: Chest x-ray; no cardiomegaly, no CHF, no infiltrate, reviewed by me. EKG, supraventricular tachycardia without acute ST abnormality, reviewed by me. LABORATORY DATA: Hemoglobin is 12.7, white count is 9.0, does have a bandemia of 32. Chemistries and metabolic profile; potassium 3.4, blood sugar 172, lactate was 1.7. Urine was clear. ADMITTING DIAGNOSIS: 1. Adrenal insufficiency. 2. Hypotension. 3. Tachycardia. 4. Encephalopathy. 5. Fever. 6. Diabetes mellitus, type 2, insulin dependent. 7. Dyslipidemia. PLAN: The patient is going to Critical Care Unit. Blood cultures and urine cultures have been drawn. Antibiotics have been started. Pressors have been initiated. Replacement steroids have been initiated. ASSESSMENT: This is a very confusing case. The etiology of his rapid downhill slide on multiple occasions may indeed be related to adrenal insufficiency. This remains to be proved. Job ID: [id number]
[2018-12-04 16:44] LABS: Color Of CSF Supernatant COLORLESS (Colorless); Tube # 2; Unspun CSF Color COLORLESS (Colorless)
[2018-12-04 16:49] LABS: CSF Source CSF; Clarity Clear (Clear); RBC Count - Manual 10 /cumm (None Seen); RBC Count - Manual 38 /cumm (None Seen); Tube # 1; Tube # 4; WBC/NonHematics Count - Manual 0 /cumm (0-5); WBC/NonHematics Count - Manual 3 /cumm (0-5)
[2018-12-04 16:55] LABS: CSF, Glucose 112 mg/dl (40-70); CSF, Protein 108 mg/dL (15-40)
[2018-12-04] MEDS ORDERED: Vancomycin HCl 1.25 GM in Sodium Chloride 0.9% 250 ML 250 ML IVPB SCH (17:00)
[2018-12-04] MEDS: Piperacillin/Tazobactam 3.375 GM in Sodium Chloride 0.9% 100 ML IVPB SCH ×2 (17:31→20:45)
[2018-12-04] MEDS: Sodium Chloride 0.9% 1,000 ML IV SCH (17:32)
[2018-12-04] MEDS: Hydrocortisone Sod Succ/PF 500 MG in Sodium Chloride 0.9% 50 ML IVPB SCH (17:32)
[2018-12-04 17:45] VITALS: BMI 25.2
[2018-12-04] MEDS: Clindamycin/D5W 900 MG in Premix Bag 1 BAG IVPB SCH (18:01)
[2018-12-04] MEDS: Insulin Regular 300 UNITS/3 ML VIAL SC PRN ×2 (18:39→21:24)
[2018-12-04] MEDS: Norepinephrine 8 MG/0.9% NS 250 ML IVPB SCH (20:46)
--- NOTE | 2018-12-04 22:12 | CON ---
DATE OF CONSULTATION: 12/04/2018 CONSULTING PHYSICIAN: Daryl Landers MD REASON FOR CONSULTATION: Hypotension. HISTORY OF PRESENT ILLNESS: Mr. Knight is a 58-year-old who came to the emergency room today saying he felt cold. He was found to have fever. He is complaining of a headache. He also says his neck is stiff. I have seen him in the past for several different hospitalizations related to adrenal insufficiency. He also has adult onset Still disease. He says he has been taking his steroids at home as prescribed, but his cortisol level taken today was only 6. PAST MEDICAL HISTORY: 1. Rheumatoid arthritis. 2. Adrenal insufficiency. 3. Adult onset Still disease. 4. Diabetes mellitus type 2. 5. Hyperlipidemia. PAST SURGICAL HISTORY: 1. Cholecystectomy. 2. Left shoulder pain. 3. Left knee repair. 4. C-spine surgery. FAMILY MEDICAL HISTORY: Remarkable for coronary artery disease, diabetes, end-stage renal disease. SOCIAL HISTORY: Nonsmoker. Does not consume alcohol. Does not use illicit drugs. MEDICATIONS PRIOR TO ADMISSION: 1. Prednisone 20 mg daily. 2. Januvia 100 mg daily. 3. Flomax 0.4 mg daily. 4. Xarelto 20 mg daily. 5. Levemir insulin 40 units every morning. 6. Folate 1 mg daily. 7. Pepcid 20 mg daily. 8. Zetia 10 mg daily. 9. Anakinra 100 mg subcu at bedtime. 10. Lipitor 40 mg daily. REVIEW OF SYSTEMS: He has had fever, chills, headache. No photophobia. No chest pain, hemoptysis, melena, hematochezia, shortness of breath, hematuria, or dysuria. Remainder of 12-point review of systems is negative. PHYSICAL EXAMINATION: VITAL SIGNS: Temperature 103, blood pressure 85/53, pulse 123, O2 saturation 99%. GENERAL: He will wake up and answer questions. HEENT: Pupils are reactive. I do not see any papilledema. Sclerae are anicteric. Oropharynx is clear. NECK: No JVD. LUNGS: Clear to auscultation without wheezing or rhonchi. CARDIAC: S1, S2, tachycardic without murmur. ABDOMEN: Soft, nontender, nondistended. EXTREMITIES: No clubbing, cyanosis, or edema. NEUROLOGICAL: He moves all 4 extremities. He does have nuchal rigidity when his neck is flexed forward. LABORATORY DATA: White blood cell count 9, hematocrit 40, platelet count 169 with 46% neutrophils, 32% bands, 20% lymphocytes. Sodium 140, potassium 3.4, chloride 105, CO2 of 23, BUN 14, creatinine 1.0, glucose 171. Lactate was 1.7, cortisol 6.2. Urinalysis showed glucosuria, no white cells. Chest x-ray shows no mass, effusion, or infiltrate. ASSESSMENT: 1. Severe hypotension, likely reflective of either septic shock or adrenal insufficiency. 2. Rule out meningitis given headache and fever. 3. Adult onset Still disease. 4. Diabetes mellitus type 2. 5. Hyperlipidemia. PLAN: He is being admitted to the ICU. Norepinephrine has been started. Dr. Landers has started him on high-dose steroids. I have requested that the emergency room doctor perform a lumbar puncture given that the patient is at high risk for meningitis given his chronic use of corticosteroids at home. His laboratory data need to be trended. The above encompassed 45 minutes of critical care time. Job ID: [id number]
[2018-12-05] MEDS: Clindamycin/D5W 900 MG in Premix Bag 1 BAG IVPB SCH ×2 (00:15→05:14)
[2018-12-05] MEDS: Sodium Chloride 0.9% 1,000 ML IV SCH ×5 (00:16→20:41)
[2018-12-05] MEDS: Piperacillin/Tazobactam 3.375 GM in Sodium Chloride 0.9% 100 ML IVPB SCH ×4 (03:16→20:31)
[2018-12-05] MEDS: Hydrocortisone Sod Succ/PF 500 MG in Sodium Chloride 0.9% 50 ML IVPB SCH (03:18)
[2018-12-05] MEDS: Insulin Regular 300 UNITS/3 ML VIAL SC PRN ×4 (03:27→20:35)
[2018-12-05 03:53] LABS: Anion Gap 16 mmol/L (10-20); BUN (Urea Nitrogen) 17 mg/dL (8.4-25.7); Calc. Creatinine Clearance 80 mL/min (70-130); Calcium 8.3 mg/dL (7.8-10.44); Carbon Dioxide 18 mmol/L (22-29); Chloride 113 mmol/L (98-107); Estimated GFR-MDRD 86; Glucose 224 mg/dL (70-105); Potassium 3.8 mmol/L (3.5-5.1); Sodium 143 mmol/L (136-145)
[2018-12-05 04:10] LABS: Band 29 % (5-11); Hemoglobin 13.5 g/dL (14.0-18.0); Lymphocytes 4 % (21-51); MDiff Complete? YES; Mean Corpuscular HGB CONC 32.2 g/dL (32.0-36.0); Mean Corpuscular Hemoglobin 29.9 pg (27.0-31.0); Mean Corpuscular Volume 92.7 fL (78.0-98.0); Mean Platelet Volume 7.7 fL (7.4-10.4); Metamyelocyte 2 % (0-0); Monocytes 8 % (0-10); Myelocyte 4 % (0-0); Neutrophil 53 % (42-75); Platelet Count 222 thou/uL (130-400); RBC Distribution Width 15.1 % (11.5-14.5); Red Blood Cell (RBC) Count 4.53 mill/uL (4.70-6.10); White Blood Cell (WBC) Count 37.9 thou/uL (4.8-10.8)
[2018-12-05] MEDS: Norepinephrine 8 MG/0.9% NS 250 ML IVPB SCH (05:14)
[2018-12-05 06:45] LABS: Base Excess (BEa) -6.3 mEq/L (-2.0 to +3.0); CO2 Tension 27.9 mmHg (35.0-45.0); Calcium, Ionized 1.15 mmol/L (1.12-1.30); Carboxyhemoglobin (COHb) 1.5 gm% (0.0-3.0); Hemoglobin (Hb) 13.6 g/dL (14.0-18.0); O2 Tension (PaO2) 91.6 mmHg (80.0-100.0); Potassium - ABG Lab 3.68 mmol/L (3.70-5.30)
[2018-12-05 06:49] LABS: ALV-art Gradient 23.255 (0-20); Puncture Site RBA
--- NOTE | 2018-12-05 08:23 | PRG ---
DATE OF SERVICE: 12/05/2018 SUBJECTIVE: Mr. Knight is doing better compared to yesterday. He says his headache had dissipated. OBJECTIVE: VITAL SIGNS: Temperature 97.6, pulse 90, blood pressure 114/81, currently on a Levophed drip at 5 mcg/minute. A 24-hour intake 1559, output 2320. HEENT: Unremarkable. NECK: No JVD. LUNGS: He has inspiratory crackles at the right base. Left side is clear. CARDIAC: S1, S2. Regular. ABDOMEN: Soft. EXTREMITIES: No edema. LABORATORY DATA: His CSF demonstrated no white blood cells, glucose 112, and total protein of 108. Chemistry: Sodium 143, potassium 3.8, chloride 113, CO2 of 18, BUN 17, creatinine 1.1, glucose 224. ABG: PH of 7.40, pCO2 of 27, pO2 of 92 on room air. White blood cell count of 37.9, hematocrit 42, and platelet count 222 with 53% neutrophils, 29% bands. ASSESSMENT: 1. Exam suspicious for pneumonia. Given the previous hospitalization, this would have to be considered healthcare-acquired pneumonia. 2. Still disease. 3. Septic shock. 4. Diabetes mellitus type 2. 5. Hyperlipidemia. PLAN: 1. Decrease hydrocortisone dose. 2. Check chest x-ray. 3. Continue IV antibiotics. 4. Follow up culture results. 5. Wean off Levophed as tolerated. Job ID: [id number]
--- NOTE | 2018-12-05 08:25 | RAD ---
FRONTAL VIEW CHEST: COMPARISON: Previous day INDICATION: Pneumonia FINDINGS: Left subclavian venous catheter remains in place. Mild prominence of the cardiomediastinal silhouette is present with interstitial opacities of each lung. No significant effusion or discrete pneumothorax. IMPRESSION: Evidence of mild fluid overload. This may represent decompensated CHF in the correct clinical context . Recommend continued imaging follow-up. Transcribed Date/Time: 12/05/2018 8:34 AM
[2018-12-05] MEDS: Hydrocortisone Sod Succ/PF 100 mg/2 ml Vial IVP SCH ×2 (11:33→17:10)
[2018-12-05] MEDS ORDERED: Linezolid 600 MG in Premix Bag 1 BAG IVPB SCH ×2 (12:00→21:00)
[2018-12-05] MEDS ORDERED: Insulin Regular 300 UNITS/3 ML VIAL SC PRN (15:05)
[2018-12-05] MEDS ORDERED: Dextrose 50% Abboject 50 ML SYRINGE SLOW IVP PRN (15:05)
[2018-12-05] MEDS ORDERED: Dextrose 5% in Water 1,000 ML IV PRN (15:05)
--- NOTE | 2018-12-05 15:39 | PQF ---
LEONID HENDRIX MALIK MD [id number] CLINICAL DOCUMENTATION IMPROVEMENT CLARIFICATION FORM: ICD-10 Updated PLEASE DO AN ADDENDUM TO THE PROGRESS NOTE WITH ANY DOCUMENTATION UPDATES OR ADDITIONS AND CARRY THROUGH TO DC SUMMARY. THANK YOU. DATE: 12/05/18 ATTN: Dr. Garcia Please exercise your independent, professional judgment in responding to the clarification form. Clinical indicators are provided on the bottom of this form for your review Please check appropriate box(es): [ ] Severe Sepsis with metabolic encephalopathy due to: MRSA bacteremia with septic shock [ x ] Severe sepsis with septic shock due to MRSA Bacteremia [ ] Sepsis due to pneumonia [ ] Sepsis due to meningitis [ ] Localized infection without sepsis [ ] Other diagnosis [ ] Unable to determine In addition, please specify: Present on Admission (POA): [ ] Yes [ ] No [ ] Unable to determine For continuity of documentation, please document condition throughout progress notes and discharge summary. Thank You. CLINICAL INDICATORS - SIGNS / SYMPTOMS / LABS Altered mental status per H&P encephalopathy Temp 103 H&P BP 62/40 H&P Positive blood cultures--12/04 MRSA per lab 12/04 PULM: SEVERE HYPOTENSION, LIKELY REFLECTIVE OR EITHER SEPTIC SHOCK OR ADRENAL INSUFFICIENCY, R/O MENINGITIS 12/05 PULM: EXAM SUSPICIOUS FOR PNEUMONIA, STILL DISEASE. SEPTIC SHOCK RISK FACTORS Infection/Bacteremia--> MRSA bacteremia 12/04 bld cx History of pneumonia and adrenal crisis per H&P TREATMENTS: ICU 12/04 orders Daily CBC 12/04 orders Blood/ urine cultures 12/04 orders IV antibiotics - broad spectrum--> ROCEPHIN IV 12/04 ONCE; CLINDAMYCIN IV 12/04-; LINEZOLID 12/05; ZOSYN IV 12/04-12/05 IV fuids--> 3L NS 12/04 per MAR Vasopressors--> Levophed drip 12/04 per MAR LP 12/04 per orders 12/04 IV Steroids x1 per MAR (This form is maintained as a part of the permanent medical record) 2014 [employer]. All Rights Reserved Alis Wheatley, RN, BSN, CCDS [email or web address]
[2018-12-05] MEDS: Rivaroxaban 10 MG TAB PO SCH (17:10)
[2018-12-05] MEDS: Famotidine 20 MG TAB PO SCH (20:32)
[2018-12-05] MEDS ORDERED: Insulin Glargine 25 UNITS in Pre-Filled Syringe 1 EACH SC SCH (21:00)
[2018-12-05] MEDS ORDERED: ANAKINRA 100 MG SCH (21:00)
--- NOTE | 2018-12-05 22:32 | PDOC.PN ---
- Subjective Encounter Start Date: 12/05/18 Encounter Start Time: 13:30 Patient seen and examined for Sepsis/Septic shock. On Pressors. Dry cough +. No other complaints. No overnight events - Objective Resuscitation Status - Order Detail: 12/04/18 14:32 Resuscitation Status Routine Resuscitation Status: FULL: Full Resuscitation MAR Reviewed: Yes Vital Signs & Weight: Vital Signs (12 hours) Temp Pulse Ox 12/05/18 19:42 100 12/05/18 19:00 98.2 F 12/05/18 16:00 97.8 F 12/05/18 12:00 98.0 F Weight Weight 166 lb 3.657 oz Most Recent Monitor Data Heart Rate from ECG 96 NIBP 95/63 NIBP BP-Mean 73 Respiration from ECG 30 SpO2 100 I&O: 12/04/18 12/05/18 12/06/18 06:59 06:59 06:59 Intake Total 1559 2061 Output Total 2320 1940 Balance -761 121 Result Diagrams: 12/05/18 03:25 12/05/18 03:25 Additional Labs: Accuchecks 12/05/18 12/05/18 12/05/18 20:36 16:30 11:33 POC Glucose 323 H 361 H 362 H 12/05/18 03:24 POC Glucose 208 H Radiology Reviewed by me: Yes (CXR - ?CHF) EKG Reviewed by me: Yes (Tele ST) Phys Exam - Physical Examination Constitutional: NAD Neck: no JVD Respiratory: no wheezing, no rhonchi Bibasilar rales, no accessory muscle use Cardiovascular: RRR, no rub no heaves/pulsations Gastrointestinal: soft, non-tender, no distention, positive bowel sounds Musculoskeletal: no edema, pulses present Neurological: non-focal, normal sensation, moves all 4 limbs Psychiatric: normal affect, A&O x 3 Dx/Plan - Plan Severe Sepsis with acute organs dysfunction/Septic shock requiring Pressors Hypokalemia Dilated Cardiomyopathy/Chronic Systolic/Diastolic HF with EF 40-45% Adrenal insufficiency - on Stress dose steroids MRSA bacteremia 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 DM type 2 HLD h/o DVT on chronic Anticoagulation h/o HTN Headache - improving PLAN: Cont Zyvox/Zosyn Cont Stress dose steroids AM labs Replace electrolytes Cont IVF Wean Pressors On Xarelto GI prophylaxis Restart Lantus Change sliding scale to moderate Consult ID due to bacteremia Microbiology 12/04/18 12:01 Venous blood - Right Hand Blood Culture - Preliminary Methicillin resistant S.aureus Review of Systems - Review of Systems Cardiovascular: negative: chest pain, palpitations, orthopnea, paroxysmal nocturnal dyspnea, edema, light headedness, other Gastrointestinal: negative: Nausea, Vomiting, Abdominal Pain, Diarrhea, Constipation, Melena, Hematochezia, Other - Medications/Allergies Allergies/Adverse Reactions: Allergies Allergy/AdvReac Type Severity Reaction Status Date / Time vancomycin Allergy Verified 12/04/18 17:47 Medications: Current Medications Acetaminophen (Tylenol) 650 mg PO Q4H PRN PRN Reason: Headache/Fever/Mild Pain (1-3) Dextrose/Water (Dextrose 50%) 25 gm SLOW IVP PRN PRN PRN Reason: Hypoglycemia Dextrose/Water (Dextrose 50%) 25 gm SLOW IVP PRN PRN PRN Reason: Hypoglycemia Famotidine (Pepcid) 20 mg PO BID [facility] Last Admin: 12/05/18 20:32 Dose: 20 mg Folic Acid (Folvite) 1 mg PO DAILY [facility] Glucagon (Glucagon) 1 mg IM PRN PRN PRN Reason: Hypoglycemia Glucagon (Glucagon) 1 mg IM PRN PRN PRN Reason: Hypoglycemia Hydrocortisone Sodium Succinate (Solu-Cortef) 100 mg IVP Q6HR [facility] Last Admin: 12/05/18 17:10 Dose: 100 mg Dextrose/Water (D5w) 1,000 mls @ 0 mls/hr IV .Q0M PRN PRN Reason: Hypoglycemia Norepinephrine Bitartrate (Levophed) 250 mls @ 0 mls/hr IVPB INF [facility]; Protocol Last Admin: 12/05/18 05:14 Dose: 250 mls Sodium Chloride (Normal Saline 0.9%) 1,000 mls @ 0 mls/hr IV .Q0M [facility] Last Admin: 12/05/18 11:58 Dose: 1,000 mls Piperacillin Sod/Tazobactam (Sod 3.375 gm/ Sodium Chloride) 100 mls @ 200 mls/ hr IVPB 0300,0900,1500,2100 [facility] Last Admin: 12/05/18 20:31 Dose: 100 mls Sodium Chloride (Normal Saline 0.9%) 1,000 mls @ 100 mls/hr IV .Q10H [facility] Last Admin: 12/05/18 20:41 Dose: Not Given Linezolid 600 mg/ Device 300 mls @ 150 mls/hr IVPB Q12HR [facility] Last Admin: 12/05/18 20:31 Dose: 300 mls Insulin Glargine 25 units/ (Miscellaneous Medication) 0.25 mls @ 0 mls/hr SC QAM [facility] Insulin Glargine 25 units/ (Miscellaneous Medication) 0.25 mls @ 0 mls/hr SC HS [facility] Last Admin: 12/05/18 20:32 Dose: 0.25 mls Dextrose/Water (D5w) 1,000 mls @ 0 mls/hr IV .Q0M PRN PRN Reason: Hypoglycemia Insulin Human Regular (Humulin R) 0 units SC .AGGRESSIVE SLIDING PRN PRN Reason: Aggressive Sliding Scale Last Admin: 12/05/18 20:35 Dose: 11 unit Multivitamins (Multivit, Chewable Sf) 1 tab PO DAILY [facility] Ondansetron HCl (Zofran Odt) 4 mg PO Q6H PRN PRN Reason: Nausea/Vomiting Rivaroxaban (Xarelto) 20 mg PO 1700 [facility] Last Admin: 12/05/18 17:10 Dose: 20 mg Sodium Chloride (Flush - Normal Saline) 10 ml IVF Q12HR [facility] Last Admin: 12/05/18 20:32 Dose: 10 ml Sodium Chloride (Flush - Normal Saline) 10 ml IVF PRN PRN PRN Reason: Saline Flush
[2018-12-06] MEDS: Hydrocortisone Sod Succ/PF 100 mg/2 ml Vial IVP SCH ×5 (00:12→20:18)
[2018-12-06] MEDS: Insulin Regular 300 UNITS/3 ML VIAL SC PRN ×4 (00:13→20:21)
[2018-12-06] MEDS: Piperacillin/Tazobactam 3.375 GM in Sodium Chloride 0.9% 100 ML IVPB SCH (03:50)
[2018-12-06] MEDS: Acetaminophen 325 MG TAB PO PRN ×2 (03:52→20:17)
[2018-12-06] MEDS: Sodium Chloride 0.9% 1,000 ML IV SCH ×3 (03:57→21:29)
[2018-12-06 05:47] LABS: Anion Gap 8 mmol/L (10-20); BUN (Urea Nitrogen) 18 mg/dL (8.4-25.7); Calc. Creatinine Clearance 103 mL/min (70-130); Calcium 8.5 mg/dL (7.8-10.44); Carbon Dioxide 23 mmol/L (22-29); Chloride 113 mmol/L (98-107); Estimated GFR-MDRD Greater than 90; Glucose 112 mg/dL (70-105); Magnesium 1.5 mg/dL (1.6-2.6); Potassium 3.3 mmol/L (3.5-5.1); Sodium 141 mmol/L (136-145)
[2018-12-06 05:50] LABS: Phosphorus 2.5 mg/dL (2.3-4.7)
[2018-12-06 05:53] LABS: Band 22 % (5-11); Hemoglobin 10.8 g/dL (14.0-18.0); Lymphocytes 10 % (21-51); MDiff Complete? YES; Mean Corpuscular HGB CONC 32.8 g/dL (32.0-36.0); Mean Corpuscular Hemoglobin 29.8 pg (27.0-31.0); Monocytes 7 % (0-10); Neutrophil 61 % (42-75); Platelet Count 172 thou/uL (130-400); Red Blood Cell (RBC) Count 3.62 mill/uL (4.70-6.10); White Blood Cell (WBC) Count 27.2 thou/uL (4.8-10.8)
[2018-12-06] MEDS ORDERED: Potassium Chloride 20 MEQ TAB PO SCH (08:00)
[2018-12-06] MEDS: Folic Acid 1 MG TAB PO SCH (08:15)
[2018-12-06] MEDS: Famotidine 20 MG TAB PO SCH ×2 (08:15→20:18)
[2018-12-06] MEDS ORDERED: Magnesium Sulfate 4 GM in Sodium Chloride 0.9% 250 ML 250 ML IVPB SCH (08:15)
[2018-12-06] MEDS: Multivit, Chewable SF 1 TAB PO SCH (08:15)
[2018-12-06] MEDS: DAPTOmycin 500 MG in Sodium Chloride 0.9% 100 ML IVPB SCH (08:54)
[2018-12-06] MEDS ORDERED: Insulin Glargine 25 UNITS in Pre-Filled Syringe 1 EACH SC SCH (09:00)
--- NOTE | 2018-12-06 09:26 | PRG ---
DATE OF SERVICE: 12/06/2018 SUBJECTIVE: He is feeling better. He is still needing some Levophed 2 mcg/minute. OBJECTIVE: Currently, his temperature is 98.7, pulse 83, blood pressure 95/67. A 24-hour intake 3448, output 2565. HEENT: Unremarkable. NECK: No JVD. CHEST: Clear. CARDIAC: S1, S2. Regular. ABDOMEN: Soft. EXTREMITIES: No edema. LABORATORY DATA: White blood cell count 27.2, hematocrit 33, platelet count 172. Sodium 141, potassium 3.3, chloride 113, CO2 of 23, BUN 18, creatinine 0.8, glucose 112. His cultures are growing MRSA from blood. ASSESSMENT: 1. Methicillin-resistant Staphylococcus aureus sepsis-site not determined. Of note, the patient does have a left knee replacement and a left shoulder replacement. He has also had some boils in his groin region, but does have dissipated. 2. Septic shock. 3. Adult Still disease. 4. Diabetes mellitus type 2. 5. Hyperlipidemia. 6. Hypokalemia. 7. Hypomagnesemia. PLAN: 1. Replace potassium and magnesium. 2. Decreased hydrocortisone dose. 3. Wean off Levophed as tolerated. 4. Antibiotics per ID. Job ID: [id number]
--- NOTE | 2018-12-06 12:29 | CON ---
DATE OF CONSULTATION: 12/06/2018 REASON FOR CONSULTATION: Bacteremia. HISTORY OF PRESENT ILLNESS: A 58-year-old patient known to us from multiple prior visits with a history of type 2 diabetes, hypertension, C-spine fusion, residual weakness in extremities, recurring episodes of febrile illness with negative workup, having failed antimicrobial therapy and resolved temporarily with corticosteroids. After extensive workup, he was given a diagnosis of Adult Still disease associated with rheumatoid arthritis, possible. The patient has been managed with anakinra over the past 2 months, and intermittent steroids with marked improvement in joint symptoms and resolution of fever. In August, he was admitted with fever, worsening arthralgias, which we felt was due to recrudescence of the autoimmune syndrome. He also was found with adrenal insufficiency during the August visit. In November 11 , he presented with fever and rhabdomyolysis as well as altered mental status following episode of fall. The workup did not reveal any infectious process and he is released. At this time, he was brought in with new onset of weakness of pretty much the day before with fever up to 103. He actually felt improvement in the usual pain that he experienced in the shoulders and neck. He had some headaches. No sore throat, odynophagia, or dysphagia. No vomiting. No dyspnea or cough. No abdominal pain. No genitourinary symptoms. PAST MEDICAL HISTORY: Includes hyperlipidemia, type 2 diabetes, hypertension, Adult Still disease/rheumatoid arthritis managed with anakinra. PAST SURGICAL HISTORY: Includes cholecystectomy, left shoulder repair, left knee arthroscopy, and cervical spine fusion. SOCIAL HISTORY: Never smoker. No alcoholic beverage use. Lives in [place] with his mother. FAMILY HISTORY: Coronary artery disease and type 2 diabetes. CURRENT MEDICATIONS: Include: 1. Tylenol. 2. Dextrose IV. 3. Pepcid. 4. Folic acid. 5. Glucagon. 6. Solu-Cortef. 7. Linezolid. 8. Zosyn. ALLERGIES: THERE IS A HISTORY OF DRUG ALLERGY TO VANCOMYCIN WELL. PHYSICAL EXAMINATION: VITAL SIGNS: T-max 99.1, blood pressure 95/67, pulse 83, respirations 13 to 19, and O2 saturation 99%. GENERAL: He appears in no distress, oriented, and pleasant. SKIN: The patient has no skin abnormalities. The patient has a peripheral IV access. No lymphadenopathy. HEENT: Ocular movements conjugate. Sclerae white. Pupils are equal. Nasal passages patent. Ear exam normal. Oral cavity moist with no lesions. Numerous teeth in place with some decay and gum disease. A little bit of decreased range of motion of the neck with a less pain than usual, left shoulder pain as well. BACK: No back tenderness. LUNGS: Symmetric. Clear breath sounds. S1 and S2 without murmurs. No S3 or S4. ABDOMEN: Soft. Not distended or tender. No ascites. No bladder distention. MUSCULOSKELETAL: Knees without swelling or maybe do have some swelling, mostly deformity from old inflammatory activity. The moment at the visit, there is no evidence of inflammatory activity. EXTREMITIES: Pulses 1+ in dorsalis pedis. He is able to move extremities equally. Cognitive function appears to be intact. LABORATORY DATA: White cell count is 9000 with 32% bands on admission and went up to 27,000 with 22% bands, hemoglobin 10.8. Sodium 141, creatinine 0.83. AST 36, ALT 29, alkaline phosphatase 96, albumin 3.6, globulin 2.7. The patient had a spinal fluid exam on admission just visible, only 3 wbc's and 10 rbc's. Glucose was 112 , protein was 108. Urinalysis was essentially normal except for glycosuria and one out of two sets of blood cultures with methicillin-resistant Staphylococcus aureus by Verigene assay. Influenza A and B, nasal swab were negative. IMAGING STUDIES: Include chest x-ray with left subclavian venous catheter inserted this admission, mild fluid overload. The last echocardiogram is from November 10 and demonstrated EF 40% to 45%, grade 2 to 3 diastolic dysfunction, aortic valvular sclerosis, [id number] aortic regurgitation, moderate tricuspid regurg. ASSESSMENT: 1. Adult Still disease/rheumatoid arthritis. 2. Type 2 diabetes. 3. Anakinra treatment for management of the inflammatory process. 4. Recurrent episodes of fever, which in the past were ascribed to the inflammatory process rather than infection. 5. Sepsis with methicillin-resistant Staphylococcus aureus bacteremia, which appears to be transient without obvious primary site. DISCUSSION: We will continue to monitor him for possible primary site, we will repeat echocardiogram. Switch him to daptomycin. Discontinue remainder antimicrobials. We will need at least 2 weeks of therapy, maybe longer because of his immunosuppression. Evidently if we find a focal source, we may have to extend that duration. In terms of the immunosuppressive drug, probably it would be asencio to withhold until the bacteremia is under control. Job ID: [id number] MTDD
[2018-12-06] MEDS: Rivaroxaban 10 MG TAB PO SCH (17:02)
[2018-12-06] MEDS: Insulin Glargine 15 UNITS in Pre-Filled Syringe 1 EACH SC SCH (20:19)
--- NOTE | 2018-12-06 22:25 | PDOC.PN ---
- Subjective Encounter Start Date: 12/06/18 Encounter Start Time: 12:30 Patient seen and examined for Sepsis. Sitting on chair. Off pressors. No CP. No new complaints. No overnight events - Objective Resuscitation Status - Order Detail: 12/04/18 14:32 Resuscitation Status Routine Resuscitation Status: FULL: Full Resuscitation MAR Reviewed: Yes Vital Signs & Weight: Vital Signs (12 hours) Temp 12/06/18 20:00 97.7 F 12/06/18 16:00 97.8 F 12/06/18 12:00 98.1 F Weight Weight 166 lb 7.184 oz Most Recent Monitor Data Heart Rate from ECG 96 NIBP 118/81 NIBP BP-Mean 93 Respiration from ECG 29 SpO2 100 I&O: 12/05/18 12/06/18 12/07/18 06:59 06:59 06:59 Intake Total 1559 3448 1749 Output Total 2320 2565 1345 Balance -761 883 404 Result Diagrams: 12/07/18 06:15 12/07/18 06:15 Additional Labs: Accuchecks 12/06/18 12/06/18 12/06/18 20:16 16:15 11:22 POC Glucose 330 H 290 H 316 H 12/06/18 12/06/18 05:15 00:13 POC Glucose 110 221 H EKG Reviewed by me: Yes (Tele SR) Phys Exam - Physical Examination Constitutional: NAD Respiratory: no wheezing, no rhonchi Cardiovascular: RRR, no rub Gastrointestinal: soft, non-tender, positive bowel sounds Musculoskeletal: no edema Neurological: moves all 4 limbs Dx/Plan - Plan IMPRESSION: Severe Sepsis with acute organs dysfunction/Septic shock requiring Pressors Hypokalemia/Hypomagnesemia Dilated Cardiomyopathy/Chronic Systolic/Diastolic HF with EF 40-45% Adrenal insufficiency - on Stress dose steroids MRSA bacteremia 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 DM type 2 HLD h/o DVT on chronic Anticoagulation h/o HTN Headache - improving PLAN: Off pressors On Daptomycin Taper steroid dose Replace electrolytes Cont IVF On Xarelto GI prophylaxis Adjust Lantus dose Cont sliding scale Review of Systems - Review of Systems Respiratory: negative: Cough, Dry, Shortness of Breath, Hemoptysis, SOB with Excertion, Pleuritic Pain, Sputum, Wheezing Cardiovascular: negative: chest pain, palpitations, orthopnea, paroxysmal nocturnal dyspnea, edema, light headedness, other Gastrointestinal: negative: Nausea, Vomiting, Abdominal Pain, Diarrhea, Constipation, Melena, Hematochezia, Other - Medications/Allergies Allergies/Adverse Reactions: Allergies Allergy/AdvReac Type Severity Reaction Status Date / Time vancomycin Allergy Verified 12/04/18 17:47 Medications: Current Medications Acetaminophen (Tylenol) 650 mg PO Q4H PRN PRN Reason: Headache/Fever/Mild Pain (1-3) Last Admin: 12/06/18 20:17 Dose: 650 mg Dextrose/Water (Dextrose 50%) 25 gm SLOW IVP PRN PRN PRN Reason: Hypoglycemia Famotidine (Pepcid) 20 mg PO BID [facility] Last Admin: 12/06/18 20:18 Dose: 20 mg Folic Acid (Folvite) 1 mg PO DAILY [facility] Last Admin: 12/06/18 08:15 Dose: 1 mg Glucagon (Glucagon) 1 mg IM PRN PRN PRN Reason: Hypoglycemia Hydrocortisone Sodium Succinate (Solu-Cortef) 50 mg IVP Q6H [facility] Last Admin: 12/06/18 20:18 Dose: 50 mg Dextrose/Water (D5w) 1,000 mls @ 0 mls/hr IV .Q0M PRN PRN Reason: Hypoglycemia Norepinephrine Bitartrate (Levophed) 250 mls @ 0 mls/hr IVPB INF [facility]; Protocol Last Admin: 12/05/18 05:14 Dose: 250 mls Sodium Chloride (Normal Saline 0.9%) 1,000 mls @ 0 mls/hr IV .Q0M [facility] Last Admin: 12/06/18 17:02 Dose: 1,000 mls Sodium Chloride (Normal Saline 0.9%) 1,000 mls @ 100 mls/hr IV .Q10H [facility] Last Admin: 12/06/18 21:29 Dose: 1,000 mls Daptomycin 500 mg/ Sodium (Chloride) 100 mls @ 200 mls/hr IVPB Q24HR [facility] Last Admin: 12/06/18 08:54 Dose: 100 mls Insulin Glargine 20 units/ (Miscellaneous Medication) 0.2 mls @ 0 mls/hr SC QAM [facility] Insulin Glargine 15 units/ (Miscellaneous Medication) 0.15 mls @ 0 mls/hr SC HS [facility] Last Admin: 12/06/18 20:19 Dose: 0.15 mls Insulin Human Regular (Humulin R) 0 units SC .MODERATE SLIDING SC PRN PRN Reason: Moderate Correctional Scale Last Admin: 12/06/18 17:03 Dose: 6 unit Insulin Human Regular (Humulin R) 0 units SC .BEDTIME SLIDING SC PRN PRN Reason: Bedtime Correctional Scale Last Admin: 12/06/18 20:21 Dose: 4 units Multivitamins (Multivit, Chewable Sf) 1 tab PO DAILY [facility] Last Admin: 12/06/18 08:15 Dose: 1 tab Ondansetron HCl (Zofran Odt) 4 mg PO Q6H PRN PRN Reason: Nausea/Vomiting Rivaroxaban (Xarelto) 20 mg PO 1700 [facility] Last Admin: 12/06/18 17:02 Dose: 20 mg Sodium Chloride (Flush - Normal Saline) 10 ml IVF Q12HR [facility] Last Admin: 12/06/18 21:29 Dose: 10 ml Sodium Chloride (Flush - Normal Saline) 10 ml IVF PRN PRN PRN Reason: Saline Flush
[2018-12-07] MEDS: Hydrocortisone Sod Succ/PF 100 mg/2 ml Vial IVP SCH ×2 (03:28→08:37)
[2018-12-07] MEDS: Sodium Chloride 0.9% 1,000 ML IV SCH (03:29)
[2018-12-07] MEDS: Insulin Regular 300 UNITS/3 ML VIAL SC PRN ×4 (06:16→20:25)
[2018-12-07 06:42] LABS: Anion Gap 10 mmol/L (10-20); BUN (Urea Nitrogen) 15 mg/dL (8.4-25.7); Calc. Creatinine Clearance 96 mL/min (70-130); Calcium 8.5 mg/dL (7.8-10.44); Carbon Dioxide 21 mmol/L (22-29); Chloride 113 mmol/L (98-107); Estimated GFR-MDRD Greater than 90; Glucose 201 mg/dL (70-105); Magnesium 1.9 mg/dL (1.6-2.6); Phosphorus 2.2 mg/dL (2.3-4.7); Potassium 3.3 mmol/L (3.5-5.1); Sodium 141 mmol/L (136-145)
[2018-12-07 06:44] LABS: Hemoglobin 11.3 g/dL (14.0-18.0); Mean Corpuscular HGB CONC 32.3 g/dL (32.0-36.0); Mean Corpuscular Hemoglobin 29.6 pg (27.0-31.0); Mean Corpuscular Volume 91.6 fL (78.0-98.0); Mean Platelet Volume 8.1 fL (7.4-10.4); Platelet Count 150 thou/uL (130-400); RBC Distribution Width 14.9 % (11.5-14.5); Red Blood Cell (RBC) Count 3.83 mill/uL (4.70-6.10)
--- NOTE | 2018-12-07 07:57 | PRG ---
DATE OF SERVICE: 12/07/2018 TIME SPENT: Extensively 35 minutes. SUBJECTIVE: The patient is doing well. He has been off the Levophed since about 7:00 am yesterday. OBJECTIVE: VITAL SIGNS: Temperature is 97.9, pulse 80, blood pressure 115/75, O2 saturation 100%. A 24-hour intake 3112, output 2410. HEENT: Unremarkable. NECK: No JVD. CHEST: Clear to auscultation. CARDIAC: S1 and S2, regular without audible murmur. ABDOMEN: Soft, nontender. EXTREMITIES: No edema. LABORATORY DATA: White count 18.0, hematocrit 35.1, and platelet count 115. Sodium 141, potassium 3.3, chloride 113, CO2 of 21, BUN 15, creatinine 0.9, glucose 201. ASSESSMENT: The patient is presenting with septic shock secondary to MRSA sepsis. The source of the MRSA sepsis is unknown. 1. Adult Still's disease. 2. Diabetes mellitus type 2. 3. Hyperlipidemia. 4. Hypokalemia. PLAN: 1. Replace potassium. 2. Transfer to medical floor. 3. elastic attacher overlock to oral prednisone and discontinue the Solu-Cortef. Job ID: [id number]
[2018-12-07 08:04] LABS: Band 25 % (5-11); Eosinophils 1 % (0-10); Lymphocytes 8 % (21-51); MDiff Complete? YES; Monocytes 1 % (0-10); Neutrophil 64 % (42-75); RBC Morphology Normal; Reactive Lymphocytes 1 % (0-10)
[2018-12-07] MEDS ORDERED: K-Phos Neutral 250 MG TAB PO SCH (08:30)
[2018-12-07] MEDS: Insulin Glargine 20 UNITS in Pre-Filled Syringe 1 EACH SC SCH (08:33)
[2018-12-07] MEDS: Famotidine 20 MG TAB PO SCH ×2 (08:34→20:25)
[2018-12-07] MEDS: Folic Acid 1 MG TAB PO SCH (08:34)
[2018-12-07] MEDS: Multivit, Chewable SF 1 TAB PO SCH (08:34)
--- NOTE | 2018-12-07 08:36 | PRG ---
DATE OF SERVICE: 12/06/2018 SUBJECTIVE: Feeling better, sitting by the bedside, still on low dose of Levophed. No headaches. No visual symptoms. A little bit of neck pain and shoulder pain. No dyspnea or cough. No abdominal pain or diarrhea. OBJECTIVE: VITAL SIGNS: T-max 98.1, blood pressure 115/75, pulse is 82, respirations 20, and O2 saturation 100%. GENERAL: Awake, alert, and oriented. LUNGS: Clear. HEART: S1 and S2. Regular rate. ABDOMEN: Soft, not much back tenderness. NECK: Little bit of neck stiffness, which is chronic. LABORATORY DATA: White cell count down to 18,000, hemoglobin 11, platelets 150. Creatinine 0.9. CSF cultures are negative thus far. The patient is currently on daptomycin, is also on Levophed tapering and hydrocortisone at increased dose. ASSESSMENT AND DISCUSSION: Adult Still disease/rheumatoid arthritis versus methicillin-resistant Staphylococcus aureus bacteremia without obvious primary site, possibilities including bone and joint infection, transient bacteremia, undetermined site, endocarditis. Continue daptomycin for 4 weeks, will need a PICC line insertion. Job ID: [id number] [facility]
[2018-12-07] MEDS ORDERED: Potassium Chloride 20 MEQ TAB PO SCH (09:20)
[2018-12-07] MEDS: DAPTOmycin 500 MG in Sodium Chloride 0.9% 100 ML IVPB SCH (09:56)
[2018-12-07] MEDS ORDERED: predniSONE 20 MG TAB PO SCH (11:15)
--- NOTE | 2018-12-07 11:21 | PDOC.PN ---
- Subjective Encounter Start Date: 12/07/18 Encounter Start Time: 10:30 Patient seen and examined for Sepsis/Septic shock. No new complaints. No overnight events - Objective Resuscitation Status - Order Detail: 12/04/18 14:32 Resuscitation Status Routine Resuscitation Status: FULL: Full Resuscitation MAR Reviewed: Yes Vital Signs & Weight: Vital Signs (12 hours) Temp Pulse Resp BP Pulse Ox 12/07/18 09:20 97.7 F 82 16 107/69 100 12/07/18 09:00 100 12/07/18 07:55 100 12/07/18 07:50 98.1 F 12/07/18 04:00 97.9 F 12/07/18 01:00 97.8 F Weight Weight 166 lb 7.184 oz Most Recent Monitor Data Heart Rate from ECG 91 NIBP 126/83 NIBP BP-Mean 97 Respiration from ECG 11 SpO2 100 I&O: 12/06/18 12/07/18 12/08/18 06:59 06:59 06:59 Intake Total 3448 3112 Output Total 2565 2410 260 Balance 883 702 -260 Result Diagrams: 12/07/18 06:15 12/07/18 06:15 Additional Labs: Accuchecks 12/07/18 12/06/18 12/06/18 06:15 20:16 16:15 POC Glucose 198 H 330 H 290 H 12/06/18 11:22 POC Glucose 316 H EKG Reviewed by me: Yes (Tele SR earlier) Phys Exam - Physical Examination Constitutional: NAD Respiratory: no wheezing, no rhonchi Cardiovascular: RRR, no rub Gastrointestinal: soft, non-tender, positive bowel sounds Musculoskeletal: no edema Neurological: moves all 4 limbs Dx/Plan - Plan IMPRESSION: Severe Sepsis with acute organs dysfunction/Septic shock - Off Pressors Hypokalemia/Hypomagnesemia/Hypophosphatemia Dilated Cardiomyopathy/Chronic Systolic/Diastolic HF with EF 40-45% Adrenal insufficiency - requiring Stress dose steroids MRSA bacteremia 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 DM type 2 HLD h/o DVT on chronic Anticoagulation h/o HTN Headache - improving PLAN: On Daptomycin per ID On Prednisone Replace Potassium and Phosphorus Cont Lantus/sliding scale AM labs PICC line Daptomycin x [address] Nickerson Review of Systems - Review of Systems Respiratory: negative: Cough, Dry, Shortness of Breath, Hemoptysis, SOB with Excertion, Pleuritic Pain, Sputum, Wheezing Cardiovascular: negative: chest pain, palpitations, orthopnea, paroxysmal nocturnal dyspnea, edema, light headedness, other - Medications/Allergies Allergies/Adverse Reactions: Allergies Allergy/AdvReac Type Severity Reaction Status Date / Time vancomycin Allergy Verified 12/04/18 17:47 Medications: Current Medications Acetaminophen (Tylenol) 650 mg PO Q4H PRN PRN Reason: Headache/Fever/Mild Pain (1-3) Last Admin: 12/06/18 20:17 Dose: 650 mg Dextrose/Water (Dextrose 50%) 25 gm SLOW IVP PRN PRN PRN Reason: Hypoglycemia Famotidine (Pepcid) 20 mg PO BID [facility] Last Admin: 12/07/18 08:34 Dose: 20 mg Folic Acid (Folvite) 1 mg PO DAILY [facility] Last Admin: 12/07/18 08:34 Dose: 1 mg Glucagon (Glucagon) 1 mg IM PRN PRN PRN Reason: Hypoglycemia Dextrose/Water (D5w) 1,000 mls @ 0 mls/hr IV .Q0M PRN PRN Reason: Hypoglycemia Daptomycin 500 mg/ Sodium (Chloride) 100 mls @ 200 mls/hr IVPB Q24HR [facility] Last Admin: 12/07/18 09:56 Dose: 100 mls Insulin Glargine 20 units/ (Miscellaneous Medication) 0.2 mls @ 0 mls/hr SC QAM [facility] Last Admin: 12/07/18 08:33 Dose: 0.2 mls Insulin Glargine 15 units/ (Miscellaneous Medication) 0.15 mls @ 0 mls/hr SC HS [facility] Last Admin: 12/06/18 20:19 Dose: 0.15 mls Insulin Human Regular (Humulin R) 0 units SC .MODERATE SLIDING SC PRN PRN Reason: Moderate Correctional Scale Last Admin: 12/07/18 06:16 Dose: 2 unit Insulin Human Regular (Humulin R) 0 units SC .BEDTIME SLIDING SC PRN PRN Reason: Bedtime Correctional Scale Last Admin: 12/06/18 20:21 Dose: 4 units Multivitamins (Multivit, Chewable Sf) 1 tab PO DAILY [facility] Last Admin: 12/07/18 08:34 Dose: 1 tab Ondansetron HCl (Zofran Odt) 4 mg PO Q6H PRN PRN Reason: Nausea/Vomiting Phosphorus (Kphos Neutral) 500 mg PO TID[facility] Stop: 12/09/18 12:01 Prednisone (Prednisone) 40 mg PO QAM-[facility] Prednisone (Prednisone) 40 mg PO NOW [facility] Stop: 12/07/18 13:15 Rivaroxaban (Xarelto) 20 mg PO 1700 [facility] Last Admin: 12/06/18 17:02 Dose: 20 mg Sodium Chloride (Flush - Normal Saline) 10 ml IVF PRN PRN PRN Reason: Saline Flush
[2018-12-07] MEDS: K-Phos Neutral 250 MG TAB PO SCH ×2 (13:43→15:15)
--- NOTE | 2018-12-07 15:18 | SPC ---
Sonographic guided right upper extremity PICC HISTORY: Sepsis. Need for long-term antibiotics. FINDINGS: After signed procedure and answering all questions, the right upper extremity was prepped a nd draped in the usual sterile fashion. Sterile technique, buffered local anesthesia, sonographic guidance, and a 22-gauge needle were used to carefully accessed the right basilic vein. Standard tech nique was used to place the tip of a 5 Yoruba single lumen PICC silhouette the tip lies at the level of the superior vena cava. Catheter was flushed and secured externally. Patient tolerated the p rocedure well and was returned in unchanged condition. Fluoroscopy time 0 seconds. IMPRESSION: Right upper extremity PICC is ready for use.
[2018-12-07] MEDS: Rivaroxaban 10 MG TAB PO SCH (17:19)
[2018-12-07] MEDS: Insulin Glargine 15 UNITS in Pre-Filled Syringe 1 EACH SC SCH (20:24)
[2018-12-08] MEDS: Insulin Regular 300 UNITS/3 ML VIAL SC PRN ×4 (06:02→20:21)
[2018-12-08 06:09] LABS: Anion Gap 10 mmol/L (10-20); BUN (Urea Nitrogen) 19 mg/dL (8.4-25.7); Calc. Creatinine Clearance 87 mL/min (70-130); Calcium 8.5 mg/dL (7.8-10.44); Carbon Dioxide 22 mmol/L (22-29); Chloride 112 mmol/L (98-107); Estimated GFR-MDRD Greater than 90; Glucose 298 mg/dL (70-105); Magnesium 1.6 mg/dL (1.6-2.6); Potassium 3.2 mmol/L (3.5-5.1); Sodium 141 mmol/L (136-145)
[2018-12-08 06:25] LABS: Band 1 % (5-11); Hemoglobin 10.8 g/dL (14.0-18.0); Hypochromia SLIGHT = 6-15 cells (100X) (0-5/hpf); Lymphocytes 16 % (21-51); MDiff Complete? YES; Mean Corpuscular HGB CONC 32.9 g/dL (32.0-36.0); Mean Corpuscular Hemoglobin 30.1 pg (27.0-31.0); Mean Corpuscular Volume 91.5 fL (78.0-98.0); Mean Platelet Volume 8.5 fL (7.4-10.4); Monocytes 1 % (0-10); Neutrophil 82 % (42-75); Platelet Count 159 thou/uL (130-400); Platelet Morphology Comment Appears Adequate; RBC Distribution Width 15.1 % (11.5-14.5); Red Blood Cell (RBC) Count 3.58 mill/uL (4.70-6.10); White Blood Cell (WBC) Count 9.7 thou/uL (4.8-10.8)
[2018-12-08] MEDS ORDERED: predniSONE 20 MG TAB PO SCH (08:00)
[2018-12-08] MEDS: DAPTOmycin 500 MG in Sodium Chloride 0.9% 100 ML IVPB SCH (09:01)
[2018-12-08] MEDS: Multivit, Chewable SF 1 TAB PO SCH (09:02)
[2018-12-08] MEDS: K-Phos Neutral 250 MG TAB PO SCH ×3 (09:02→14:14)
[2018-12-08] MEDS: Folic Acid 1 MG TAB PO SCH (09:02)
[2018-12-08] MEDS: Insulin Glargine 20 UNITS in Pre-Filled Syringe 1 EACH SC SCH (09:03)
[2018-12-08] MEDS: Famotidine 20 MG TAB PO SCH ×2 (09:03→20:17)
[2018-12-08] MEDS: Acetaminophen 325 MG TAB PO PRN (09:06)
--- NOTE | 2018-12-08 13:58 | PRG ---
DATE OF SERVICE: 12/08/2018 SUBJECTIVE: He feels better, had no acute complaints, except for this antibiotic perhaps upsetting his stomach. OBJECTIVE: VITAL SIGNS: Temperature 97.5, pulse 80, respirations 18, O2 saturation 100%, and blood pressure 134/75. HEENT: Unremarkable. NECK: No JVD. CHEST: Clear to auscultation. CARDIAC: S1 and S2, regular. ABDOMEN: Soft. EXTREMITIES: No edema. LABORATORY DATA: White blood cell count 9.7, hematocrit 32.7, platelet count 159. Sodium 141, potassium 3.2, BUN 19, creatinine 0.9, and glucose 298. ASSESSMENT: Methicillin-resistant Staphylococcus aureus sepsis/bacteremia. PLAN: Prolonged antibiotics are planned on this patient. We need to go ahead and discontinue left subclavian catheter. I will wean his prednisone back down to his outpatient dose of 20 mg. Job ID: [id number]
[2018-12-08] MEDS: Rivaroxaban 10 MG TAB PO SCH (14:15)
--- NOTE | 2018-12-08 15:42 | PRG ---
DATE OF SERVICE: 12/08/2018 CHIEF COMPLAINT: Sepsis. HISTORY OF PRESENT ILLNESS: This is a 58-year-old male with history of dilated cardiomyopathy, chronic systolic and diastolic heart failure, rheumatoid arthritis, Still disease, adrenal insufficiency, diabetes mellitus type 2, dyslipidemia, who was referred to the emergency department for possible sepsis, G2 elevated temperature of 103. He was found to have MRSA bacteremia with no definite source. Currently receiving IV daptomycin, awaiting outpatient IV antibiotic treatment. SUBJECTIVE: The patient seen and evaluated at bedside. He has no acute complaints. Per nurse, no acute events overnight. REVIEW OF SYSTEMS: All systems are reviewed and negative except for the one as mentioned above. PHYSICAL EXAMINATION: VITAL SIGNS: Blood pressure 134/75, pulse 80, respirations 18, oxygen saturation 100% on room air, temperature 97.5 Fahrenheit. GENERAL: He appears in no distress. He is awake, alert, and oriented x3. HEAD AND NECK: Pupils are equal and reactive to light. Extraocular muscles are intact. Mucous membranes are moist. Neck is supple. CARDIOVASCULAR: Rhythm and rate are regular. No audible murmurs, rubs, or gallops. PULMONARY: Clear to auscultation bilaterally. No wheezes, rhonchi, or crackles. ABDOMEN: Soft, nontender, and nondistended. Positive bowel sounds. EXTREMITIES: No palpable edema. Pulses are symmetric. Right upper extremity PICC line. SKIN: Normal moist and turgor. Capillary refill less than 3 seconds. NEUROLOGIC: Cranial nerves 2 through 12 are grossly intact. Deep tendon reflexes are normoreflexic. LABORATORY DATA: Laboratory abnormalities: Hemoglobin 11, hematocrit 33. Potassium 3.2, chloride 112, glucose 298. MEDICATIONS: Reviewed. IMAGING STUDIES: Reviewed. EKG reviewed. ASSESSMENT AND PLAN: 1. Severe sepsis/septic shock: Resolved. Due to methicillin-resistant Staphylococcus aureus bacteremia. 2. Methicillin-resistant Staphylococcus aureus bacteremia: PICC line placed. Continue daptomycin per ID's recommendations. Pending outpatient arrangement for IV antibiotics. 3. Acute hypokalemia: Continue replacement and monitor. 4. Acute hypomagnesemia: Resolved. Monitor. 5. Acute hypophosphatemia: Resolved. 6. Chronic dilated cardiomyopathy: Compensated. 7. Chronic systolic and diastolic heart failure: Compensated. 8. Adrenal insuffiencey: Continue corticosteroid support. 9. Still disease: Chronic but stable. 10. Diabetes mellitus type 2: Mild hyperglycemia. Corticosteroid induced. Continue sliding scale insulin. 11. Hyperlipidemia: Chronic but stable. 12. Chronic deep vein thrombosis, on Xarelto. 13. Xarelto coagulapathy. 14. Essential hypertension: Currently at goal. 15. Headache: Nonspecific. Resolved. 16. Code status: Full code. 17. Core measures: Xarelto. 18. Disposition: Medical surgical unit on telemetry. 19. Prognosis: Guarded. 20. Clinical status: Guarded. 21. Expected discharge: To be determined based on arrangement for IV antibiotics. 22. Total time spent: 32 minutes. Job ID: [id number]
[2018-12-08] MEDS: Insulin Glargine 15 UNITS in Pre-Filled Syringe 1 EACH SC SCH (20:20)
[2018-12-09] MEDS: Multivit, Chewable SF 1 TAB PO SCH (08:24)
[2018-12-09] MEDS: Folic Acid 1 MG TAB PO SCH (08:25)
[2018-12-09] MEDS: Famotidine 20 MG TAB PO SCH ×2 (08:25→20:49)
[2018-12-09] MEDS: K-Phos Neutral 250 MG TAB PO SCH ×2 (08:25→13:08)
[2018-12-09] MEDS: predniSONE 20 MG TAB PO SCH (08:26)
[2018-12-09] MEDS: Acetaminophen 325 MG TAB PO PRN (08:29)
[2018-12-09] MEDS: DAPTOmycin 500 MG in Sodium Chloride 0.9% 100 ML IVPB SCH (09:16)
[2018-12-09] MEDS: Insulin Glargine 20 UNITS in Pre-Filled Syringe 1 EACH SC SCH (09:16)
--- NOTE | 2018-12-09 16:04 | PRG ---
DATE OF SERVICE: 12/09/2018 CHIEF COMPLAINT: Sepsis. HISTORY OF PRESENT ILLNESS: A 58-year-old male with a history of dilated cardiomyopathy, chronic systolic and diastolic heart failure, rheumatoid arthritis, Still disease, adrenal insufficiency, diabetes mellitus type 2, dyslipidemia, who was referred to the emergency department for possible sepsis, for elevated temperature. He was found to have MRSA bacteremia with no definite source. He is currently receiving daptomycin, awaiting outpatient IV antibiotics. SUBJECTIVE: The patient is seen and evaluated at bedside. He has no acute complaints. Per nurse, no other acute events overnight. REVIEW OF SYSTEMS: All systems are reviewed and negative except for the ones mentioned above. PHYSICAL EXAMINATION: VITAL SIGNS: Blood pressure 114/73, pulse 78, respirations 18, oxygen saturation 95% on room air, temperature 98.1 Fahrenheit. GENERAL: No distress. Awake, alert, oriented x3. HEAD AND NECK: Pupils are equal and reactive to light. Extraocular muscles are intact. Mucous membranes are moist. Neck is supple. CARDIOVASCULAR: Rhythm and rate are regular. No audible murmurs, rubs, or gallops. PULMONARY: Clear to auscultation bilaterally. No wheezes, rhonchi, or crackles. ABDOMEN: Soft, nontender, nondistended. Positive bowel sounds. EXTREMITIES: No palpable edema. Pulses are symmetric. Right upper extremity PICC. SKIN: Normal moist and turgor. Capillary refill is less than 3 seconds. NEUROLOGIC: Cranial nerves 2 through 12 are grossly intact. Deep tendon reflexes are normoreflexic. LABORATORY DATA: Laboratory abnormalities: No current labs. Bedside glucose is 140. CURRENT MEDICATIONS: Reviewed. ASSESSMENT AND PLAN: 1. Severe sepsis/septic shock: Resolved. 2. Methicillin-resistant Staphylococcus aureus bacteremia: PICC line placed. Trying to arrange daptomycin outpatient. The patient turned down $20 a day co-pay per infusion clinic proposed by ID physician. He is attempting to get a free of co-pay treatment. Case Management is working hard on outpatient IV antibiotic therapy. 3. Acute hypokalemia: Resolved. 4. Acute hypomagnesemia: Resolved. 5. Acute hypophosphatemia: Resolved. 6. Chronic dilated cardiomyopathy: Compensated. 7. Chronic systolic and diastolic heart failure: Compensated. 8. Adrenal insufficiency: Continue corticosteroid support. 9. Still disease: Chronic, but stable. 10. Diabetes mellitus type 2: Mild hyperglycemia. 11. Hyperlipidemia: Chronic, but stable. 12. Chronic deep vein thrombosis, on Xarelto. 13. Xarelto coagulopathy. 14. Essential hypertension: Currently at goal. 15. Headache: Resolved. CODE STATUS: Full code. CORE MEASURE: Xarelto. DISPOSITION: Medical/surgical unit on telemetry. PROGNOSIS: Guarded. CLINICAL STATUS: Guarded. EXPECTED DISCHARGE: To be determined when outpatient IV antibiotics are arranged. TOTAL TIME SPENT: 28 minutes. Job ID: [id number]
[2018-12-09] MEDS: Rivaroxaban 10 MG TAB PO SCH (17:46)
[2018-12-09] MEDS: Insulin Regular 300 UNITS/3 ML VIAL SC PRN ×2 (17:47→20:50)
[2018-12-09] MEDS: Insulin Glargine 15 UNITS in Pre-Filled Syringe 1 EACH SC SCH (20:49)
[2018-12-10 06:00] LABS: Mean Corpuscular HGB CONC 33.2 g/dL (32.0-36.0); Mean Corpuscular Hemoglobin 30.1 pg (27.0-31.0); Mean Corpuscular Volume 90.7 fL (78.0-98.0); Mean Platelet Volume 8.1 fL (7.4-10.4); Platelet Count 179 thou/uL (130-400); RBC Distribution Width 14.9 % (11.5-14.5); Red Blood Cell (RBC) Count 3.66 mill/uL (4.70-6.10); White Blood Cell (WBC) Count 6.3 thou/uL (4.8-10.8)
[2018-12-10 06:13] LABS: ALT (SGPT) 22 U/L (8-55); AST (SGOT) 12 U/L (5-34); Albumin 2.7 g/dL (3.5-5.0); Alkaline Phosphatase 61 U/L (40-150); Anion Gap 12 mmol/L (10-20); BUN (Urea Nitrogen) 11 mg/dL (8.4-25.7); Bilirubin, Total 0.4 mg/dL (0.2-1.2); Calc. Creatinine Clearance 109 mL/min (70-130); Calcium 8.3 mg/dL (7.8-10.44); Carbon Dioxide 26 mmol/L (22-29); Chloride 107 mmol/L (98-107); Estimated GFR-MDRD Greater than 90; Globulin 2.7 g/dL (2.4-3.5); Glucose 138 mg/dL (70-105); Protein, Total 5.4 g/dL (6.0-8.3); Sodium 142 mmol/L (136-145)
[2018-12-10 06:16] LABS: Potassium 2.7 mmol/L (3.5-5.1)
[2018-12-10] MEDS ORDERED: Potassium Chloride 40 MEQ in Premix Bag 1 BAG IVPB SCH (06:30)
[2018-12-10] MEDS: Potassium Chloride 20 MEQ in Premix Bag 1 BAG IVPB SCH ×2 (06:50→09:45)
[2018-12-10] MEDS: Acetaminophen 325 MG TAB PO PRN ×2 (06:56→11:47)
[2018-12-10] MEDS: Potassium Chloride 20 MEQ TAB PO SCH ×3 (08:36→16:54)
[2018-12-10] MEDS: Multivit, Chewable SF 1 TAB PO SCH (08:36)
[2018-12-10] MEDS: Folic Acid 1 MG TAB PO SCH (08:37)
[2018-12-10] MEDS: predniSONE 20 MG TAB PO SCH (08:37)
[2018-12-10] MEDS: Insulin Glargine 20 UNITS in Pre-Filled Syringe 1 EACH SC SCH (08:38)
[2018-12-10] MEDS: Famotidine 20 MG TAB PO SCH ×2 (08:38→20:28)
[2018-12-10] MEDS: DAPTOmycin 500 MG in Sodium Chloride 0.9% 100 ML IVPB SCH (11:41)
--- NOTE | 2018-12-10 16:05 | PRG ---
DATE OF SERVICE: 12/10/2018 CHIEF COMPLAINT: Sepsis. HISTORY OF PRESENT ILLNESS: A 58-year-old male with history of dilated cardiomyopathy, chronic systolic and diastolic heart failure, rheumatoid arthritis, Still disease, adrenal insufficiency, diabetes mellitus type 2, and dyslipidemia, who was referred to the emergency department for possible sepsis for elevated temperature. He was found to have MRSA bacteremia with no definite source. He is currently receiving daptomycin, awaiting outpatient IV antibiotic arrangements. SUBJECTIVE: The patient was seen and evaluated at bedside. He has no acute complaints. Per nurse, hypokalemia. No other acute events. REVIEW OF SYSTEMS: All systems are reviewed and negative except for the ones mentioned above. PHYSICAL EXAMINATION: VITAL SIGNS: Blood pressure 107/71, pulse 84, respirations are 16, oxygen saturation 99% on room air, and temperature 98.2 Fahrenheit. GENERAL: No distress. Awake, alert, and oriented x3. HEAD AND NECK: Pupils are equal and reactive to light. Extraocular muscles are intact. Mucous membranes are moist. Neck is supple. CARDIOVASCULAR: Rhythm and rate, regular. No audible murmurs, rubs, or gallops. PULMONARY: Clear to auscultation bilaterally. No wheezes, rhonchi, or crackles. ABDOMEN: Soft, nontender, nondistended, positive bowel sounds. EXTREMITIES: No palpable edema. Pulses are symmetric. Right upper extremity PICC. SKIN: Normal moist and turgor. Capillary refill less than 3 seconds. NEUROLOGIC: Cranial nerves II through XII are grossly intact. Deep tendon reflexes are normoreflexic. LABORATORY DATA: Laboratory abnormalities; potassium 2.7, magnesium 1.4 cm. CURRENT MEDICATIONS: Reviewed. ASSESSMENT AND PLAN: 1. Severe sepsis/septic shock: Resolved. Methicillin-resistant Staphylococcus aureus bacteremia: Pending outpatient daptomycin arrangements. 2. Acute hypokalemia: Replace and monitor. 3. Acute hypomagnesemia: Replace and monitor. 4. Acute hypophosphatemia: Resolved. 5. Chronic dilated cardiomyopathy: Compensated. 6. Chronic systolic and diastolic heart failure: Compensated. 7. Abdomen insufficiency: Continue corticosteroid support. 8. Still disease: Chronic, but stable. 9. Diabetes mellitus type 2: Controlled. 10. Hyperlipidemia: Continue home medications. 11. Chronic DVT: Continue Xarelto. 12. Xarelto coagulopathy. 13. Essential hypertension: Currently at goal. 14. Headache: Resolved. CODE STATUS: Full code. CORE MEASURE: Xarelto. DISPOSITION: Medical-surgical unit. PROGNOSIS: Guarded. CLINICAL STATUS: Guarded. EXPECTED DISCHARGE: To be determined based on IV antibiotic arrangements. TOTAL TIME SPENT: 25 minutes. Job ID: [id number]
[2018-12-10] MEDS: Rivaroxaban 10 MG TAB PO SCH (16:54)
[2018-12-10] MEDS: Insulin Regular 300 UNITS/3 ML VIAL SC PRN ×2 (17:26→20:50)
[2018-12-10] MEDS: Insulin Glargine 15 UNITS in Pre-Filled Syringe 1 EACH SC SCH (20:32)
[2018-12-11 05:42] LABS: Anion Gap 11 mmol/L (10-20); BUN (Urea Nitrogen) 14 mg/dL (8.4-25.7); Calc. Creatinine Clearance 88 mL/min (70-130); Calcium 8.6 mg/dL (7.8-10.44); Carbon Dioxide 25 mmol/L (22-29); Chloride 108 mmol/L (98-107); Estimated GFR-MDRD Greater than 90; Glucose 157 mg/dL (70-105); Magnesium 1.6 mg/dL (1.6-2.6); Potassium 3.3 mmol/L (3.5-5.1); Sodium 141 mmol/L (136-145)
[2018-12-11] MEDS: Atorvastatin Calcium 40 MG TAB PO SCH (07:50)
[2018-12-11] MEDS: Acetaminophen 325 MG TAB PO PRN ×2 (07:50→16:48)
[2018-12-11] MEDS: Famotidine 20 MG TAB PO SCH ×2 (07:50→20:37)
[2018-12-11] MEDS: Multivit, Chewable SF 1 TAB PO SCH (07:50)
[2018-12-11] MEDS: Tamsulosin HCl 0.4 MG CAP PO SCH (07:50)
[2018-12-11] MEDS: Folic Acid 1 MG TAB PO SCH (07:50)
[2018-12-11] MEDS: predniSONE 20 MG TAB PO SCH (07:50)
[2018-12-11] MEDS: Ezetimibe 10 MG TAB PO SCH (07:51)
[2018-12-11] MEDS: Insulin Glargine 20 UNITS in Pre-Filled Syringe 1 EACH SC SCH (07:51)
[2018-12-11] MEDS ORDERED: Rivaroxaban 10 MG TAB PO SCH (08:00)
[2018-12-11] MEDS: DAPTOmycin 500 MG in Sodium Chloride 0.9% 100 ML IVPB SCH (09:31)
--- NOTE | 2018-12-11 15:01 | PDOC.PN ---
- Subjective Encounter Start Date: 12/11/18 Encounter Start Time: 08:30 CHIEF COMPLAINT: Sepsis. HISTORY OF PRESENT ILLNESS: This is a 58-year-old male with history of dilated cardiomyopathy, chronic systolic and diastolic heart failure, rheumatoid arthritis, Still disease, adrenal insufficiency, diabetes mellitus type 2, dyslipidemia, who was referred to the emergency department for possible sepsis, G2 elevated temperature of 103. He was found to have MRSA bacteremia with no definite source. Currently receiving IV daptomycin, awaiting outpatient IV antibiotic treatment. SUBJECTIVE: The patient seen and evaluated at bedside. He c/o chest pain. EKG and cardiac enzymes obtain with normal results. Per nurse, no acute events overnight. REVIEW OF SYSTEMS: All systems are reviewed and negative except for the one as mentioned above. - Objective Resuscitation Status - Order Detail: 12/04/18 14:32 Resuscitation Status Routine Resuscitation Status: FULL: Full Resuscitation MAR Reviewed: Yes Vital Signs & Weight: Vital Signs (12 hours) Temp Pulse Resp BP Pulse Ox 12/11/18 07:20 98.0 F 100 18 117/75 99 Weight Weight 166 lb 7.184 oz Most Recent Monitor Data Heart Rate from ECG 91 NIBP 126/83 NIBP BP-Mean 97 Respiration from ECG 11 SpO2 100 I&O: 12/10/18 12/11/18 12/12/18 06:59 06:59 06:59 Intake Total 1939 Balance 1939 Result Diagrams: 12/10/18 05:45 12/11/18 04:40 Additional Labs: Accuchecks 12/11/18 12/11/18 12/10/18 11:37 05:35 22:18 POC Glucose 194 H 252 H 414 H 12/10/18 12/10/18 12/10/18 20:26 19:09 16:08 POC Glucose 460 H 404 H 221 H Radiology Reviewed by me: Yes EKG Reviewed by me: Yes Phys Exam - Physical Examination HEENT: PERRLA, moist MMs, oral pharynx no lesions Neck: no nodes, no JVD, supple, full ROM Respiratory: no wheezing, no rales, no rhonchi, clear to auscultation bilateral Cardiovascular: RRR, no significant murmur, no rub Gastrointestinal: soft, non-tender, no distention, positive bowel sounds Musculoskeletal: no edema, pulses present Neurological: non-focal, normal sensation, moves all 4 limbs Psychiatric: normal affect, A&O x 3 Skin: no rash, normal turgor, cap refill <2 seconds Dx/Plan (1) Septic shock Code(s): A41.9 - SEPSIS, UNSPECIFIED ORGANISM; R65.21 - SEVERE SEPSIS WITH SEPTIC SHOCK Status: Resolved (2) Severe sepsis Code(s): A41.9 - SEPSIS, UNSPECIFIED ORGANISM; R65.20 - SEVERE SEPSIS WITHOUT SEPTIC SHOCK Status: Resolved (3) MRSA bacteremia Code(s): R78.81 - BACTEREMIA Status: Acute Plan: Pending arrangement of daptomycin to complete 4 weeks of treatment. ID follows (4) Hypokalemia Code(s): E87.6 - HYPOKALEMIA Status: Acute Plan: Replaced. Monitor (5) Hypomagnesemia Code(s): E83.42 - HYPOMAGNESEMIA Status: Acute Plan: Resolved (6) Hypophosphatemia Code(s): E83.39 - OTHER DISORDERS OF PHOSPHORUS METABOLISM Status: Acute Plan: Resolved (7) Dilated cardiomyopathy Code(s): I42.0 - DILATED CARDIOMYOPATHY Status: Chronic (8) Chest pain Code(s): R07.9 - CHEST PAIN, UNSPECIFIED Status: Acute Qualifiers: Chest pain type: unspecified Qualified Code(s): R07.9 - Chest pain, unspecified Plan: Noncardiac. Resolved (9) Chronic combined systolic and diastolic CHF, NYHA class 2 Code(s): I50.42 - CHRONIC COMBINED SYSTOLIC AND DIASTOLIC HRT FAIL Status: Chronic Plan: Compensated (10) Adrenal insufficiency Code(s): E27.40 - UNSPECIFIED ADRENOCORTICAL INSUFFICIENCY Status: Chronic (11) Still's disease Code(s): M08.20 - JUVENILE RHEUMATOID ARTHRITIS WITH SYSTEMIC ONSET, UNSP SITE Status: Chronic (12) DVT (deep venous thrombosis) Code(s): I82.409 - ACUTE EMBOLISM AND THOMBOS UNSP DEEP VN UNSP LOWER EXTREMITY Status: Chronic (13) Coagulopathy Status: Chronic Plan: Xarelto (14) Essential hypertension Code(s): I10 - ESSENTIAL (PRIMARY) HYPERTENSION Status: Acute (15) Diabetes type 2, controlled Code(s): E11.9 - TYPE 2 DIABETES MELLITUS WITHOUT COMPLICATIONS Status: Chronic (16) Dyslipidemia Code(s): E78.5 - HYPERLIPIDEMIA, UNSPECIFIED Status: Chronic - Plan cont current plan of care CODE; FULL CORE; XARELTO DISP; MED-SURG PROG; GUARDED CLINICAL STATUS; GUARDED EXPECTE DISCHARGE; WHEN OUTPATIENT IV ANTIBIOTICS ARRANGED TOTAL TIME SPENT: 28 MINUTES DATE OF SERVICE; 12/11/2018
[2018-12-11] MEDS: Rivaroxaban 10 MG TAB PO SCH (16:48)
[2018-12-11] MEDS: Insulin Glargine 15 UNITS in Pre-Filled Syringe 1 EACH SC SCH (20:37)
[2018-12-12] MEDS: Acetaminophen 325 MG TAB PO PRN (00:09)
[2018-12-12] MEDS: Multivit, Chewable SF 1 TAB PO SCH (08:47)
[2018-12-12] MEDS: DAPTOmycin 500 MG in Sodium Chloride 0.9% 100 ML IVPB SCH (08:47)
[2018-12-12] MEDS: Insulin Glargine 20 UNITS in Pre-Filled Syringe 1 EACH SC SCH (08:47)
[2018-12-12] MEDS: Atorvastatin Calcium 40 MG TAB PO SCH (08:48)
[2018-12-12] MEDS: Tamsulosin HCl 0.4 MG CAP PO SCH (08:48)
[2018-12-12] MEDS: predniSONE 20 MG TAB PO SCH (08:48)
[2018-12-12] MEDS: Ezetimibe 10 MG TAB PO SCH (08:48)
[2018-12-12] MEDS: Folic Acid 1 MG TAB PO SCH (08:48)
[2018-12-12] MEDS: Famotidine 20 MG TAB PO SCH ×2 (08:49→20:19)
[2018-12-12 10:21] LABS: Anion Gap 14 mmol/L (10-20); BUN (Urea Nitrogen) 15 mg/dL (8.4-25.7); Calc. Creatinine Clearance 80 mL/min (70-130); Calcium 8.9 mg/dL (7.8-10.44); Carbon Dioxide 25 mmol/L (22-29); Chloride 100 mmol/L (98-107); Estimated GFR-MDRD 86; Glucose 157 mg/dL (70-105); Potassium 3.9 mmol/L (3.5-5.1); Sodium 135 mmol/L (136-145)
[2018-12-12] MEDS: HumaLOG 300 UNITS/3 ML VIAL SC PRN ×2 (12:06→16:44)
--- NOTE | 2018-12-12 14:39 | PDOC.PN ---
- Subjective Encounter Start Date: 12/12/18 Encounter Start Time: 12:15 CC; sepsis Subjective; patient seen and evaluated. Hypotension that responded well to IVF. no other acute events. ROS; all systems are reviewed and negative except for the ones mentioned above. - Objective Resuscitation Status - Order Detail: 12/04/18 14:32 Resuscitation Status Routine Resuscitation Status: FULL: Full Resuscitation MAR Reviewed: Yes Vital Signs & Weight: Vital Signs (12 hours) Temp Pulse Resp BP BP Pulse Ox 12/12/18 11:21 98.1 F 98 18 76/51 L 97 12/12/18 08:00 97 12/12/18 07:50 98.2 F 102 H 16 84/54 L 97 12/12/18 06:39 98.9 F 94 12/12/18 04:17 99.9 F H 121 H 20 92/57 L 94 L Weight Weight 166 lb 7.184 oz Most Recent Monitor Data Heart Rate from ECG 91 NIBP 126/83 NIBP BP-Mean 97 Respiration from ECG 11 SpO2 100 Result Diagrams: 12/10/18 05:45 12/12/18 09:39 Additional Labs: Accuchecks 12/12/18 12/12/18 12/11/18 11:31 04:25 19:17 POC Glucose 252 H 120 H 212 H 12/11/18 16:30 POC Glucose 212 H Radiology Reviewed by me: Yes EKG Reviewed by me: Yes Phys Exam - Physical Examination HEENT: PERRLA, moist MMs, sclera anicteric, oral pharynx no lesions Neck: no nodes, no JVD, supple, full ROM Respiratory: no wheezing, no rales, no rhonchi, clear to auscultation bilateral Cardiovascular: RRR, no significant murmur, no rub Gastrointestinal: soft, non-tender, no distention, positive bowel sounds Musculoskeletal: no edema, pulses present Neurological: non-focal, normal sensation, moves all 4 limbs Psychiatric: normal affect, A&O x 3 Skin: no rash, normal turgor, cap refill <2 seconds Dx/Plan (1) Septic shock Code(s): A41.9 - SEPSIS, UNSPECIFIED ORGANISM; R65.21 - SEVERE SEPSIS WITH SEPTIC SHOCK Status: Resolved (2) Severe sepsis Code(s): A41.9 - SEPSIS, UNSPECIFIED ORGANISM; R65.20 - SEVERE SEPSIS WITHOUT SEPTIC SHOCK Status: Resolved (3) MRSA bacteremia Code(s): R78.81 - BACTEREMIA Status: Acute Plan: Awaiting home IV antibiotic arrangement (4) Hypokalemia Code(s): E87.6 - HYPOKALEMIA Status: Resolved (5) Hypomagnesemia Code(s): E83.42 - HYPOMAGNESEMIA Status: Resolved (6) Hypophosphatemia Code(s): E83.39 - OTHER DISORDERS OF PHOSPHORUS METABOLISM Status: Resolved (7) Dilated cardiomyopathy Code(s): I42.0 - DILATED CARDIOMYOPATHY Status: Chronic (8) Chest pain Code(s): R07.9 - CHEST PAIN, UNSPECIFIED Status: Resolved Qualifiers: Chest pain type: unspecified Qualified Code(s): R07.9 - Chest pain, unspecified (9) Chronic combined systolic and diastolic CHF, NYHA class 2 Code(s): I50.42 - CHRONIC COMBINED SYSTOLIC AND DIASTOLIC HRT FAIL Status: Chronic (10) Adrenal insufficiency Code(s): E27.40 - UNSPECIFIED ADRENOCORTICAL INSUFFICIENCY Status: Chronic (11) Still's disease Code(s): M08.20 - JUVENILE RHEUMATOID ARTHRITIS WITH SYSTEMIC ONSET, UNSP SITE Status: Chronic (12) DVT (deep venous thrombosis) Code(s): I82.409 - ACUTE EMBOLISM AND THOMBOS UNSP DEEP VN UNSP LOWER EXTREMITY Status: Chronic (13) Coagulopathy Status: Chronic (14) Essential hypertension Code(s): I10 - ESSENTIAL (PRIMARY) HYPERTENSION Status: Chronic (15) Diabetes type 2, controlled Code(s): E11.9 - TYPE 2 DIABETES MELLITUS WITHOUT COMPLICATIONS Status: Chronic (16) Dyslipidemia Code(s): E78.5 - HYPERLIPIDEMIA, UNSPECIFIED Status: Chronic (17) Hypotension Status: Resolved Comment: Likely multifactorial in conjuction with adrenal insufficiciency and iatrogenic influence, titrate home BP regimen - Plan cont current plan of care IFV BOLUS GIVEN WITH GOOD RESPONSE CODE; FULL CORE; XARELTO DISP; 4 TOWER PROG; GUARDED CLINICAL STATUS; GUARDED EXPECTED DISCHARGE; WITH OUTPATIENT IV ABx APPROVAL TOTAL TIME SPENT; 35 MINUTES DATE OF SERVICE; 12/12/2018
[2018-12-12] MEDS: Rivaroxaban 10 MG TAB PO SCH (16:44)
[2018-12-12] MEDS: Insulin Glargine 15 UNITS in Pre-Filled Syringe 1 EACH SC SCH (20:20)
[2018-12-12] MEDS: Insulin Regular 300 UNITS/3 ML VIAL SC PRN (20:21)
--- NOTE | 2018-12-12 22:51 | EKG ---
Test Reason : Blood Pressure : / mmHG Vent. Rate : 097 BPM Atrial Rate : 097 BPM P-R Int : 154 ms QRS Dur : 088 ms QT Int : 362 ms P-R-T Axes : 065 012 -02 degrees QTc Int : 459 ms Normal sinus rhythm Nonspecific T wave abnormality Abnormal ECG When compared with ECG of 04-DEC-2018 11:49, (Unconfirmed) Premature ventricular complexes are no longer Present Nonspecific T wave abnormality, worse in Inferior leads Confirmed by REED MONTANO ([id number]) on 12/12/2018 10:51:36 PM Referred By: PEDRO Confirmed By:REED MONTANO
[2018-12-13] MEDS: Multivit, Chewable SF 1 TAB PO SCH (09:11)
[2018-12-13] MEDS: Ezetimibe 10 MG TAB PO SCH (09:11)
[2018-12-13] MEDS: Folic Acid 1 MG TAB PO SCH (09:11)
[2018-12-13] MEDS: Tamsulosin HCl 0.4 MG CAP PO SCH (09:12)
[2018-12-13] MEDS: Famotidine 20 MG TAB PO SCH ×2 (09:12→19:52)
[2018-12-13] MEDS: predniSONE 20 MG TAB PO SCH (09:12)
[2018-12-13] MEDS: Atorvastatin Calcium 40 MG TAB PO SCH (09:12)
[2018-12-13] MEDS: Insulin Glargine 20 UNITS in Pre-Filled Syringe 1 EACH SC SCH (09:13)
[2018-12-13] MEDS: DAPTOmycin 500 MG in Sodium Chloride 0.9% 100 ML IVPB SCH (09:17)
[2018-12-13] MEDS: HumaLOG 300 UNITS/3 ML VIAL SC PRN ×2 (12:33→16:59)
--- NOTE | 2018-12-13 13:10 | PDOC.PN ---
- Subjective Encounter Start Date: 12/13/18 Encounter Start Time: 10:00 CC; SEPSIS SUBJECTIVE; PATIENT SEEN AND EVALUATED. NO COMPLAINTS. NO ACUTE EVENTS OVERNIGHT ROS; ALL SYSTEMS ARE REVIEWED AND NEGATIVE EXCEPT FOR THE ONES MENTIONED ABOVE - Objective Resuscitation Status - Order Detail: 12/04/18 14:32 Resuscitation Status Routine Resuscitation Status: FULL: Full Resuscitation MAR Reviewed: Yes Vital Signs & Weight: Vital Signs (12 hours) Temp Pulse Resp BP BP Pulse Ox 12/13/18 09:00 97 12/13/18 08:00 98.0 F 87 20 118/73 97 12/13/18 04:27 98.1 F 78 20 121/74 93 L Weight Weight 166 lb 7.184 oz Most Recent Monitor Data Heart Rate from ECG 91 NIBP 126/83 NIBP BP-Mean 97 Respiration from ECG 11 SpO2 100 I&O: 12/12/18 12/13/18 12/14/18 06:59 06:59 06:59 Intake Total 300 Balance 300 Result Diagrams: 12/10/18 05:45 12/12/18 09:39 Additional Labs: Accuchecks 12/13/18 12/13/18 12/12/18 11:11 04:28 19:06 POC Glucose 250 H 149 H 325 H 12/12/18 16:35 POC Glucose 198 H Radiology Reviewed by me: Yes EKG Reviewed by me: Yes Phys Exam - Physical Examination HEENT: PERRLA, moist MMs, sclera anicteric, oral pharynx no lesions Neck: no nodes, no JVD, supple Respiratory: no wheezing, no rales, no rhonchi, clear to auscultation bilateral Cardiovascular: RRR, no significant murmur, no rub Gastrointestinal: soft, non-tender, no distention, positive bowel sounds Musculoskeletal: no edema, pulses present Neurological: non-focal, normal sensation, moves all 4 limbs Psychiatric: normal affect, A&O x 3 Skin: no rash, normal turgor, cap refill <2 seconds Dx/Plan (1) Septic shock Code(s): A41.9 - SEPSIS, UNSPECIFIED ORGANISM; R65.21 - SEVERE SEPSIS WITH SEPTIC SHOCK Status: Resolved (2) Severe sepsis Code(s): A41.9 - SEPSIS, UNSPECIFIED ORGANISM; R65.20 - SEVERE SEPSIS WITHOUT SEPTIC SHOCK Status: Resolved (3) MRSA bacteremia Code(s): R78.81 - BACTEREMIA Status: Acute Plan: AWAITING OUTPATIENT IV ANTIBIOTICS SET UP (4) Hypokalemia Code(s): E87.6 - HYPOKALEMIA Status: Resolved (5) Hypomagnesemia Code(s): E83.42 - HYPOMAGNESEMIA Status: Resolved (6) Hypophosphatemia Code(s): E83.39 - OTHER DISORDERS OF PHOSPHORUS METABOLISM Status: Resolved (7) Dilated cardiomyopathy Code(s): I42.0 - DILATED CARDIOMYOPATHY Status: Chronic (8) Chest pain Code(s): R07.9 - CHEST PAIN, UNSPECIFIED Status: Resolved Qualifiers: Chest pain type: unspecified Qualified Code(s): R07.9 - Chest pain, unspecified (9) Chronic combined systolic and diastolic CHF, NYHA class 2 Code(s): I50.42 - CHRONIC COMBINED SYSTOLIC AND DIASTOLIC HRT FAIL Status: Chronic (10) Adrenal insufficiency Code(s): E27.40 - UNSPECIFIED ADRENOCORTICAL INSUFFICIENCY Status: Chronic (11) Still's disease Code(s): M08.20 - JUVENILE RHEUMATOID ARTHRITIS WITH SYSTEMIC ONSET, UNSP SITE Status: Chronic (12) DVT (deep venous thrombosis) Code(s): I82.409 - ACUTE EMBOLISM AND THOMBOS UNSP DEEP VN UNSP LOWER EXTREMITY Status: Chronic (13) Coagulopathy Status: Chronic (14) Essential hypertension Code(s): I10 - ESSENTIAL (PRIMARY) HYPERTENSION Status: Chronic (15) Diabetes type 2, controlled Code(s): E11.9 - TYPE 2 DIABETES MELLITUS WITHOUT COMPLICATIONS Status: Chronic (16) Dyslipidemia Code(s): E78.5 - HYPERLIPIDEMIA, UNSPECIFIED Status: Chronic (17) Hypotension Status: Resolved Comment: Likely multifactorial in conjuction with adrenal insufficiciency and iatrogenic influence, titrate home BP regimen - Plan 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 NO RECURRENT HYPOTENSION. PENDING OUTPATIENT IV ANTIBIOTICS. CODE; FULL CORE; XARELTO DISP; SURGICAL PROG; GUARDED CLINICAL STATUS; STABLE EXPECTED DISCHARGE; WITH IV ANTIBIOTICS SET UP. TOTAL TIME SPENT; 25 MINUTES DATE OF SERVICE; 12/13/2018
[2018-12-13] MEDS ORDERED: Heparin 1,000 UNITS/ML VIAL ONE (13:53)
[2018-12-13] MEDS: Rivaroxaban 10 MG TAB PO SCH (16:58)
[2018-12-13] MEDS: Insulin Regular 300 UNITS/3 ML VIAL SC PRN (19:53)
[2018-12-13] MEDS: Insulin Glargine 15 UNITS in Pre-Filled Syringe 1 EACH SC SCH (19:53)
[2018-12-14] MEDS: Atorvastatin Calcium 40 MG TAB PO SCH (08:01)
[2018-12-14] MEDS: Folic Acid 1 MG TAB PO SCH (08:02)
[2018-12-14] MEDS: Ezetimibe 10 MG TAB PO SCH (08:02)
[2018-12-14] MEDS: predniSONE 20 MG TAB PO SCH (08:02)
[2018-12-14] MEDS: Multivit, Chewable SF 1 TAB PO SCH (08:02)
[2018-12-14] MEDS: Tamsulosin HCl 0.4 MG CAP PO SCH (08:02)
[2018-12-14] MEDS: Famotidine 20 MG TAB PO SCH (08:02)
[2018-12-14] MEDS: Acetaminophen 325 MG TAB PO PRN (08:05)
[2018-12-14] MEDS: Insulin Glargine 20 UNITS in Pre-Filled Syringe 1 EACH SC SCH (10:02)
[2018-12-14] MEDS: DAPTOmycin 500 MG in Sodium Chloride 0.9% 100 ML IVPB SCH (10:03)
[2018-12-14 11:09] VITALS: BP 110/65; TEMP 98.3
[2018-12-14] MEDS: HumaLOG 300 UNITS/3 ML VIAL SC PRN (12:20)
--- NOTE | 2018-12-15 00:23 | DIS ---
DATE OF ADMISSION: 12/04/2018 DATE OF DISCHARGE: 12/14/2018 ADMITTING PHYSICIAN: Dr. Landers. DISCHARGING PHYSICIAN: Dr. Stallworth. PRIMARY CARE PHYSICIAN: Dr. William Heredia. ADMITTING DIAGNOSES: 1. Adrenal insufficiency. 2. Hypotension. 3. Tachycardia. 4. Encephalopathy. 5. Fever. 6. Diabetes mellitus type 2. 7. Dyslipidemia. DISCHARGE DIAGNOSES: 1. Acute metabolic encephalopathy, resolved. 2. Severe sepsis/septic shock: Resolved. 3. MRSA bacteremia: The patient is to complete daptomycin until (01/03/2019). 4. Acute hypokalemia: Resolved. 5. Acute hypomagnesemia: Resolved. 6. Acute hypophosphatemia: Resolved. 7. Chronic dilated cardiomyopathy. 8. Chronic systolic and diastolic heart failure: Compensated. 9. Adrenal insufficiency: Continue prednisone. 10. Still's disease. 11. Diabetes mellitus type 2. 12. Hyperlipidemia. 13. Chronic deep vein thrombosis. 14. Xarelto coagulopathy. 15. Essential hypertension. 16. Nonspecific headache: Resolved. CONSULTS: Infectious Diseases. PROCEDURES: None. SPECIAL IMAGING: Echocardiogram. HOSPITAL COURSE: This is a 58-year-old male with history of dilated cardiomyopathy, chronic systolic and diastolic heart failure, rheumatoid arthritis, Still's disease, adrenal insufficiency, diabetes mellitus type 2, dyslipidemia, who was referred to the emergency department for possible sepsis. He was found to have an elevated temperature to 103 Fahrenheit and found slightly encephalopathic. Throughout the hospitalization, he grew MRSA in the blood cultures. Infectious Diseases consulted. He met criteria for severe sepsis and septic shock due to hypotension. Severe sepsis/septic shock resolved. PICC was inserted on 12/07/2018, and the patient was started on daptomycin with blood cultures positive. ID recommends 4 weeks of IV antibiotics and date of antibiotics is 01/03/2019. He will be transferred to a swing bed in stable condition. PHYSICAL EXAMINATION: VITAL SIGNS: Blood pressure 110/64, pulse 84, respirations 18, oxygen saturation 99% on room air, temperature 97.9 Fahrenheit. GENERAL: He is in no distress. Awake, alert, oriented x3. HEAD AND NECK: Pupils are equal, reactive to light. Extraocular muscles are intact. Mucous membranes are moist. Neck is supple. CARDIOVASCULAR: Rhythm and rate are regular. No audible murmurs, rubs, or gallops. PULMONARY: Clear to auscultation bilaterally. No wheezes, rhonchi, or crackles. ABDOMEN: Soft, nontender, nondistended, positive bowel sounds. EXTREMITIES: No palpable edema. Pulses are symmetric. Capillary refill is less than 3 seconds. Range of motion is intact. SKIN: Normal moist and color. NEUROLOGIC: Cranial nerves 2 through 12 are grossly intact. Deep tendon reflexes are normoreflexic. LABORATORY ABNORMALITIES: No current labs. DISCHARGE DISPOSITION: Swing bed. DISCHARGE CONDITION: Stable. DISCHARGE DIET: Cardiac and diabetic diet as tolerated. DISCHARGE ACTIVITY: Increase activity as tolerated. DISCHARGE MEDICATIONS: See medical reconciliation for details. DISCHARGE FOLLOWUP: By swing bed MD. DISCHARGE INSTRUCTIONS: The patient was instructed to return to the emergency department if symptoms are worrisome, to take his medications as directed and not to miss any appointments. TIME OF DISCHARGE AND PLANNIN minutes. Job ID: [id number]
== END 2018-12-14 12:52 | DRG 871 ==
LOC: ERS 11:45 → CCU 17:07 → T4-B 12-07 08:35
PROVIDERS: ADMIT Internal Medicine; ATTEND Internal Medicine
PROC: 3E033XZ Introduction of Vasopressor into Peripheral Vein, Percutaneous Approach (ICD-10-PCS; principal; 2018-12-04)
PROC: 009U3ZX Drainage of Spinal Canal, Percutaneous Approach, Diagnostic (ICD-10-PCS; 2018-12-04)
PROC: 02HV33Z Insertion of Infusion Device into Superior Vena Cava, Percutaneous Approach (ICD-10-PCS; 2018-12-07)
PROC: B548ZZA Ultrasonography of Superior Vena Cava, Guidance (ICD-10-PCS; 2018-12-07)
DX: A41.02 Sepsis due to Methicillin resistant Staphylococcus aureus (principal); R65.21 Severe sepsis with septic shock; G93.41 Metabolic encephalopathy; E27.40 Unspecified adrenocortical insufficiency; I42.0 Dilated cardiomyopathy; I50.42 Chronic combined systolic (congestive) and diastolic (congestive) heart failure; I82.509 Chronic embolism and thrombosis of unspecified deep veins of unspecified lower extremity; M06.1 Adult-onset Still's disease; I11.0 Hypertensive heart disease with heart failure; E78.5 Hyperlipidemia, unspecified; M06.9 Rheumatoid arthritis, unspecified; E11.65 Type 2 diabetes mellitus with hyperglycemia; E87.6 Hypokalemia; T38.0X5A Adverse effect of glucocorticoids and synthetic analogues, initial encounter; E83.42 Hypomagnesemia; E83.39 Other disorders of phosphorus metabolism; Z79.01 Long term (current) use of anticoagulants; Z79.4 Long term (current) use of insulin; Z79.52 Long term (current) use of systemic steroids; Z90.49 Acquired absence of other specified parts of digestive tract; Z88.1 Allergy status to other antibiotic agents; Z79.899 Other long term (current) drug therapy
CPT/HCPCS: 36415; 36416; 36556; 36569; 71045; 80048; 80053; 81003; 82533; 82805; 82945; 83605; 83735; 84100; 84157; 84484; 85025; 85027; 87040; 87070; 87077; 87086; 87149; 87186; 87205; 87804; 89051; 93005; 93010; 96361; 96365; 96366; 96367; 96375; 99292; J0696; J0878; J1580; J1644; J1720; J1815; J1825; J2020; J2543; J2920; J3475; J3480; J3490; J7050; J7512

== ENCOUNTER 2019-02-02 21:03 | Inpatient (IN) | payer MEDICARE ==
--- NOTE | 2019-02-02 21:44 | CT ---
CT HEAD WITHOUT CONTRAST: 02/02/19 INDICATIONS: Stroke protocol. Right sided weakness. COMPARISON: 10/18/15. Ventricle are upper normal size but stable. Mild chronic ischemic white matter change. No intracrani al mass or hemorrhage. No evidence of acute infarct. Sinuses clear. IMPRESSION: No acute finding. Findings relayed to Dr. Carter at 9:35 p.m. POS: [facility]
[2019-02-02 21:45] LABS: #Lymphocytes 1.8 thou/uL (1.20-3.40); #Monocytes 0.6 thou/uL (0.11-0.59); #Neutrophils 5.5 thou/uL (1.40-6.50); %Basophils 0.3 % (0.0-1.0); %Eosinophils 0.4 % (0.0-10.0); %Lymphocytes 22.6 % (21.0-51.0); %Monocytes 7.3 % (0.0-10.0); %Neutrophils 69.3 % (42.0-75.0); Hemoglobin 12.5 g/dL (14.0-18.0); Mean Corpuscular HGB CONC 32.4 g/dL (32.0-36.0); Mean Corpuscular Hemoglobin 29.8 pg (27.0-31.0); Mean Corpuscular Volume 92.1 fL (78.0-98.0); Mean Platelet Volume 7.8 fL (7.4-10.4); Platelet Count 135 thou/uL (130-400); RBC Distribution Width 15.9 % (11.5-14.5); Red Blood Cell (RBC) Count 4.18 mill/uL (4.70-6.10); White Blood Cell (WBC) Count 7.9 thou/uL (4.8-10.8)
--- NOTE | 2019-02-02 21:45 | RAD ---
AP CHEST: 02/02/19 HISTORY: Stroke protocol. Lungs appear clear. Mild cardiomegaly with mild vascular engorgement. No change from 12/05/18. IMPRESSION: No acute interval change. POS: [facility]
--- NOTE | 2019-02-02 21:54 | CT ---
CTA HEAD: 02/02/19 Multiple axial tomograms obtained through the head following an angio protocol with multiplanar recon structions and 3D post processing. INDICATIONS: Stroke protocol. FINDINGS: Intracranial internal carotid arteries appear patent and symmetric. There are atherosclerotic changes seen at the cavernous portion of both ICAs. No significant stenosis apparent. M1 segments of both mi ddle cerebral arteries appear patent and symmetric. The M2 and M3 branches appear symmetric. Anterior cerebral arteries appear patent and symmetric. Basilar artery is patent. Posterior cerebral arteries appear patent and symmetric. IMPRESSION: No evidence of proximal stenosis or occlusion. CTA NECK: Axial tomograms obtained through the neck with multiplanar reconstruction and 3D post processing. INDICATIONS: Stroke protocol. FINDINGS: No stenosis at the origin of the arch vessels. Common carotid arteries are unremarkable bilaterally. Mild atherosclerotic change seen at the bulbs. No stenosis seen in either internal carotid artery. V ertebral arteries are patent and symmetric. Soft tissues unremarkable. IMPRESSION: No evidence of carotid stenosis. POS: [facility]
[2019-02-02 21:56] LABS: Bilirubin Negative (Negative); Blood, Urine Negative (Negative); Clarity CLEAR (Clear); Glucose, Urine (Dipstick) 500 mg/dL (Negative); Leukocyte Negative (Negative); Nitrite Negative (Negative); Protein, Urine (Dipstick) 30 mg/dL (Neg-Trace)
[2019-02-02 21:59] LABS: Bacteria/HPF None Seen HPF (None Seen); Hyaline Casts/LPF 0-3 HYALINE CAST LPF (0-3 Hyaline); RBC/HPF 0-3 HPF (0-3); Squamous Epithelial 0-3 HPF (0-3); WBC/HPF 0-3 HPF (0-3)
[2019-02-02 22:01] LABS: Specific Gravity, Urine 1.048 (1.002-1.036)
[2019-02-02 22:01] LABS: INR-International Normal Ratio 1.1; PTT 31.5 SEC (22.9-36.1)
[2019-02-02 22:03] LABS: Alcohol Less than 10 mg/dL (Less than 10); Salicylate Less than 8.0 mg/dL (15.0-30.0)
[2019-02-02 22:04] LABS: ALT (SGPT) 34 U/L (8-55); AST (SGOT) 53 U/L (5-34); Albumin 3.5 g/dL (3.5-5.0); Alkaline Phosphatase 96 U/L (40-150); Anion Gap 14 mmol/L (10-20); BUN (Urea Nitrogen) 10 mg/dL (8.4-25.7); Bilirubin, Total 0.6 mg/dL (0.2-1.2); Calc. Creatinine Clearance 0 mL/min (70-130); Calcium 8.8 mg/dL (7.8-10.44); Carbon Dioxide 20 mmol/L (22-29); Chloride 106 mmol/L (98-107); Estimated GFR-MDRD 83; Globulin 2.4 g/dL (2.4-3.5); Glucose 145 mg/dL (70-105); Potassium 3.6 mmol/L (3.5-5.1); Protein, Total 5.9 g/dL (6.0-8.3); Sodium 136 mmol/L (136-145)
[2019-02-02 22:05] LABS: Amphetamine Not Detected (NotDetected); Barbiturates Screen Not Detected (NotDetected); Benzodiazepine Screen Not Detected (NotDetected); Cocaine Metabolite Screen Not Detected (NotDetected); Medtox Control Line Valid? VALID (VALID); Medtox Reader # READER 1; Methadone Not Detected (NotDetected); Methamphetamine Not Detected (NotDetected); Opiate Screen Not Detected (NotDetected); Oxycodone Screen Not Detected (NotDetected); Phencyclidine (PCP) Not Detected (NotDetected); THC/Cannabinoid Screen Not Detected (NotDetected); Tricyclic Screen Not Detected (NotDetected)
[2019-02-02] MEDS ORDERED: Piperacillin/Tazobactam 3.375 GM VIAL ONE (22:33)
[2019-02-03] MEDS ORDERED: DAPTOmycin 500 MG VIAL SLOW IVP SCH (00:15)
[2019-02-03] MEDS ORDERED: Bisacodyl 5 MG TAB PO PRN (01:18)
[2019-02-03] MEDS ORDERED: Acetaminophen 650 MG Suppository PR PRN (01:18)
[2019-02-03] MEDS ORDERED: Acetaminophen 325 MG TAB PO PRN (01:18)
[2019-02-03] MEDS ORDERED: Acetaminophen 500 MG TAB PO PRN (01:25)
[2019-02-03] MEDS ORDERED: Dextrose 50% Abboject 50 ML SYRINGE SLOW IVP PRN (01:27)
[2019-02-03] MEDS ORDERED: Dextrose 5% in Water 1,000 ML IV PRN (01:27)
[2019-02-03] MEDS: DAPTOmycin 500 MG in Sodium Chloride 0.9% 100 ML IVPB SCH (01:45)
[2019-02-03] MEDS: Sodium Chloride 0.9% 1,000 ML IV SCH ×3 (01:45→20:35)
--- NOTE | 2019-02-03 02:21 | HP ---
PRIMARY CARE PROVIDER: Dr. William Heredia. CHIEF COMPLAINT: Altered mental status. HISTORY OF PRESENT ILLNESS: Mr. Knight is a pleasant 58-year-old gentleman, who was seen at [facility] on February 03, 2019. He was hospitalized at this facility from December 04 to of this year for acute metabolic encephalopathy, severe sepsis/septic shock and MRSA bacteremia. Following that admission, he was discharged to [facility]. He completed treatment with daptomycin on January 03, 2019, and was discharged from [facility]. The patient himself is unable to provide any significant history as to what happened yesterday. Collateral history was obtained from review of medical records and discussion with emergency room physician. The patient went to listen to music at a venue and was found by his family in his car. He was reportedly hot to touch and had altered mental status. He was unable to answer questions. He received Tylenol on the way to the emergency room. The patient currently denies any complaints. He knows where he is, but he is unable to tell me the month or year. He denies any headache. He denies any nausea or vomiting. He denies any chest pain. He thinks he may have had a fever. REVIEW OF SYSTEMS: All other systems reviewed and found to be negative. PAST MEDICAL HISTORY: MRSA bacteremia, hypertension, dyslipidemia, diabetes mellitus type 2, and rheumatoid arthritis. SURGICAL HISTORY: Cholecystectomy, left shoulder surgery, left knee surgery, cervical spine fusion and right shoulder surgery. SOCIAL HISTORY: The patient denies tobacco use, alcohol use, or recreational drug use. ALLERGIES: VANCOMYCIN. FAMILY HISTORY: Mother with coronary artery disease, father with diabetes mellitus and end-stage renal disease requiring hemodialysis. CURRENT MEDICATIONS: 1. Tylenol p.r.n. 2. Anakinra 100 mg subcutaneously every evening. 3. Lipitor 40 mg daily. 4. Zetia 10 mg daily. 5. Pepcid 20 mg daily. 6. Folic acid 1 mg daily. 7. Lantus insulin 45 units in the morning and 10 units at bedtime. 8. Multivitamins one tablet daily. 9. Prednisone 20 mg daily. 10. Rivaroxaban 20 mg daily. 11. Flomax 0.4 mg daily. PHYSICAL EXAMINATION: GENERAL: On examination, Mr. Knight is sleepy, but arousable, not in acute distress. VITAL SIGNS: Temperature is 102.2 degrees Fahrenheit, pulse 128, blood pressure 89/50, and oxygen saturation 95% on room air. EYES: No scleral icterus, no conjunctival pallor. ENT: Dry mucosal membranes. No oropharyngeal erythema or exudates. NECK: Supple, nontender, trachea is midline. RESPIRATORY: Accessory muscles of breathing are not active. Chest wall movements are symmetric bilaterally. Lungs are clear to auscultation without wheeze, rhonchi, or crepitations. CARDIOVASCULAR: S1 and S2 are heard, tachycardic and regular. Peripheral pulses palpable. No carotid bruit. No pericardial rub. ABDOMEN: Soft, nontender, bowel sounds are heard. NEUROLOGIC: Cranial nerves 2 through 12 intact, deep tendon reflexes 2+. Plantars downgoing bilaterally. No focal motor or sensory deficits. Meningeal signs normal. MUSCULOSKELETAL: Power is 5/5 in all 4 extremities. SKIN: No rashes or subcutaneous nodules. LYMPHATIC: No cervical lymphadenopathy. PSYCHIATRIC: Normal mood, normal affect, the patient is oriented to person and place, not to time. LABORATORY DATA: Mr. Knight's labs and investigations were reviewed. I reviewed his electrocardiogram, which shows sinus tachycardia, no ST changes to suggest an acute coronary syndrome. I also reviewed his chest x-ray, which does not show any pulmonary infiltrates. Noncontrast CT scan of the brain did not show any acute findings. He also had CT angiogram of head and neck, which did not show any evidence of carotid stenosis or evidence of proximal stenosis or occlusion. He has normal white count, normocytic anemia with hemoglobin 12.5, normal platelet count, INR 1.1, normal sodium, normal potassium, normal creatinine, normal lactic acid, mildly elevated AST of 53, normal ALT, normal alkaline phosphatase and normal albumin. Urinalysis is positive for protein and glucose, negative for nitrite and leukocyte esterase. Urine and plasma drug screens were normal. ASSESSMENT AND PLAN: Mr. Knight is a pleasant 58-year-old gentleman, who was seen at [facility] on February 03, 2019. His problem list includes: 1. Acute metabolic encephalopathy: Mr. Knight is presenting with acute metabolic encephalopathy, etiology most likely secondary to infectious causes. He will be admitted to the hospital for further management. He will receive antibiotics for suspected infection. We will also check TSH. 2. Sepsis: The patient's presentation is consistent with sepsis, most likely secondary to recurrent bacteremia. He will be treated with daptomycin and Zosyn. We will await blood cultures. We will consult Infectious Disease Service. We will also provide fluid resuscitation. If blood pressures do not improve, he may need vasopressors. Given his history of chronic steroid use, we will start him on stress dose steroids as well. 3. Diabetes mellitus type 2: We will resume patient's home medication of Lantus and start him on Accu-Cheks and insulin sliding scale. 4. Hypertension: The patient's blood pressure is actually low at this time. We will hold off on antihypertensives till blood pressure improves. 5. Dyslipidemia: We will continue Lipitor. 6. Benign prostatic hypertrophy: We will continue Flomax. 7. Rheumatoid arthritis: We will continue patient's home medications. Many thanks for allowing me to participate in your patient's care. Please feel free to contact me with any questions or concerns. LEVEL OF RISK: High. LEVEL OF COMPLEXITY: High. Job ID: [id number]
[2019-02-03 02:29] LABS: #Basophils 0.1 thou/uL (0.0-0.2); #Eosinphils 0.1 thou/uL (0.0-0.7); #Lymphocytes 3.3 thou/uL (1.20-3.40); #Monocytes 1.3 thou/uL (0.11-0.59); #Neutrophils 9.7 thou/uL (1.40-6.50); %Basophils 0.7 % (0.0-1.0); %Eosinophils 0.4 % (0.0-10.0); %Monocytes 9.1 % (0.0-10.0); %Neutrophils 66.7 % (42.0-75.0); Hemoglobin 14.4 g/dL (14.0-18.0); Mean Corpuscular HGB CONC 33.1 g/dL (32.0-36.0); Mean Corpuscular Hemoglobin 30.6 pg (27.0-31.0); Mean Corpuscular Volume 92.5 fL (78.0-98.0); Mean Platelet Volume 8.3 fL (7.4-10.4); Platelet Count 121 thou/uL (130-400); RBC Distribution Width 16.3 % (11.5-14.5); Red Blood Cell (RBC) Count 4.71 mill/uL (4.70-6.10); White Blood Cell (WBC) Count 14.5 thou/uL (4.8-10.8)
[2019-02-03 02:49] LABS: Anion Gap 16 mmol/L (10-20); BUN (Urea Nitrogen) 9 mg/dL (8.4-25.7); Calc. Creatinine Clearance 88 mL/min (70-130); Calcium 8.5 mg/dL (7.8-10.44); Carbon Dioxide 17 mmol/L (22-29); Chloride 109 mmol/L (98-107); Estimated GFR-MDRD 84; Glucose 102 mg/dL (70-105); Potassium 3.7 mmol/L (3.5-5.1); Sodium 138 mmol/L (136-145)
[2019-02-03] MEDS: Hydrocortisone Sod Succ/PF 100 MG in Sodium Chloride 0.9% 50 ML IVPB SCH ×3 (02:54→18:07)
[2019-02-03] MEDS ORDERED: Sodium Chloride 0.9% 1,000 ML IV SCH (03:30)
[2019-02-03] MEDS: Piperacillin/Tazobactam 4.5 GM in Sodium Chloride 0.9% 100 ML IVPB SCH ×3 (05:10→21:27)
--- NOTE | 2019-02-03 05:46 | PDOC.EVN ---
Event Note - Event Note Event Note: Pt reassessed. Had low blood pressure during the night but was mentating well, Received 1L NS bolus, solu-cortef and daptomycin in IMCU (received Zosyn in ER ). Currently denies any complaints. BP 90/65, HR has improved to 103. S1, S2 , tachy, reg. Lungs CTA. Will hold off on pressors at this time.
--- NOTE | 2019-02-03 08:37 | PDOC.PN ---
- Subjective Encounter Start Date: 02/03/19 (f/u encephalopathy) Encounter Start Time: 08:35 Subjective: Pt without pain this morning, does not remember events of yesterday -: denies any sob/n/v/abd pain - Objective Vital Signs & Weight: Vital Signs (12 hours) Temp Pulse Ox 02/03/19 07:13 97.6 F 02/03/19 04:54 98.7 F 02/03/19 04:00 98.3 F 02/03/19 02:38 100.2 F H 02/03/19 01:18 98 02/03/19 00:55 102.2 F H Weight Weight 185 lb 11.2 oz Most Recent Monitor Data Heart Rate from ECG 101 NIBP 78/50 NIBP BP-Mean 59 Respiration from ECG 0 SpO2 96 I&O: 02/02/19 02/03/19 02/04/19 06:59 06:59 06:59 Intake Total 1810 Output Total 750 Balance 1060 Result Diagrams: 02/03/19 02:11 02/03/19 02:11 Additional Labs: Accuchecks 02/03/19 02/02/19 05:48 21:17 POC Glucose 118 H 161 H EKG Reviewed by me: Yes (tele - sinus 100's) Phys Exam - Physical Examination Constitutional: NAD Respiratory: no wheezing, no rales, no rhonchi, clear to auscultation bilateral some decreased breath sounds at the bases Cardiovascular: RRR, no significant murmur Gastrointestinal: soft, non-tender, no distention, positive bowel sounds Musculoskeletal: no edema Neurological: non-focal, moves all 4 limbs Psychiatric: normal affect Deviation from normal: tired appearing Skin: no rash Deviation from normal: erythema on chest - c/w sunburn Dx/Plan (1) Sepsis Code(s): A41.9 - SEPSIS, UNSPECIFIED ORGANISM Status: Acute (2) Metabolic encephalopathy Code(s): G93.41 - METABOLIC ENCEPHALOPATHY Status: Acute (3) Adrenal insufficiency Code(s): E27.40 - UNSPECIFIED ADRENOCORTICAL INSUFFICIENCY Status: Chronic (4) Diabetes type 2, controlled Code(s): E11.9 - TYPE 2 DIABETES MELLITUS WITHOUT COMPLICATIONS Status: Chronic (5) Dyslipidemia Code(s): E78.5 - HYPERLIPIDEMIA, UNSPECIFIED Status: Chronic (6) Essential hypertension Code(s): I10 - ESSENTIAL (PRIMARY) HYPERTENSION Status: Chronic - Plan * Sepsis with hx of MRSA bacteremia s/p anbiotics completed last month * continue daptomycin and zosyn * follow blood cx * ID consult * Encephalopathy - appears resolved based on conversation this morning * monitor for change. * Adrenal insufficiency - continue burst steroids with Solu-cortef * hypotension - low normal bp's this AM with good UOP - continue IVF and steroids * DM - blood sugar normal today - will d/c long acting insulin for now and monitor, SSI with meals * htn - monitor bp's * RA - on home meds * HLP - andrea emeds * * dvt prophy - on full dose Xarelto * gi prophy - on home H2 inna * * reviewed plan of care with patient, no questions or further needs at end of eval * pt remains at high risk in current condition - continue care in IMCU
[2019-02-03] MEDS ORDERED: Insulin Glargine 45 UNITS in Pre-Filled Syringe 1 EACH SC SCH (09:00)
[2019-02-03] MEDS: Ezetimibe 10 MG TAB PO SCH (09:51)
[2019-02-03] MEDS: Multivitamin W/ Minerals 1 TAB PO SCH (09:51)
[2019-02-03] MEDS: Rivaroxaban 10 MG TAB PO SCH (09:51)
[2019-02-03] MEDS: Folic Acid 1 MG TAB PO SCH (09:51)
[2019-02-03] MEDS: Atorvastatin Calcium 20 MG TAB PO SCH (09:51)
[2019-02-03] MEDS: Famotidine 20 MG TAB PO SCH (09:51)
[2019-02-03] MEDS: Tamsulosin HCl 0.4 MG CAP PO SCH (09:51)
--- NOTE | 2019-02-03 11:31 | CON ---
DATE OF CONSULTATION: 02/03/2019 HISTORY OF PRESENT ILLNESS: This patient was admitted to the hospital last night with altered mental status. I have seen him several times in the past. He has some type of juvenile rheumatoid arthritis. He has had multiple episodes of sepsis. He says he feels better today, although he is confused about the events of yesterday. PAST MEDICAL HISTORY: 1. MRSA bacteremia. 2. Hypertension. 3. Hyperlipidemia. 4. Diabetes mellitus, type 2. 5. 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 PAST SURGICAL HISTORY: 1. Cholecystectomy. 2. Left shoulder surgery. 3. Left knee surgery. 4. Cervical spine fusion. 5. Right shoulder surgery. SOCIAL HISTORY: Nonsmoker. Does not consume alcohol. ALLERGIES: PENICILLIN. MEDICATIONS: Prior to admission, these were reviewed and are listed on the chart. FAMILY MEDICAL HISTORY: Remarkable for coronary artery disease, diabetes mellitus, and end-stage renal disease. REVIEW OF SYSTEMS: Twelve-point review of systems is otherwise negative. PHYSICAL EXAMINATION: VITAL SIGNS: Temperature 97.7, pulse 100, and blood pressure 82/52. HEENT: Unremarkable. NECK: Without adenopathy or JVD. LUNGS: Clear anteriorly. CARDIAC: S1 and S2. Regular without audible murmur. ABDOMEN: Soft, slightly distended. EXTREMITIES: He has generalized edema throughout. IMAGING DATA: His chest x-ray did not show any acute changes. Brain CT was essentially negative. LABORATORY DATA: White blood cell count 14.5, hematocrit 43.5, and platelet count 121. Sodium 138, potassium 3.7, chloride 109, CO2 of 17, BUN 9, creatinine 1.1, and glucose 102. His cortisol level was 16. TSH 0.6. ASSESSMENT: Given previous presentations, my assumption would be this patient is probably septic. He is immunocompromised secondary to therapy he has to take for his Still's disease. RECOMMENDATIONS: 1. Broad-spectrum IV antibiotics. 2. ID consult. 3. Continue hydrocortisone. Job ID: [id number]
[2019-02-03] MEDS: HumaLOG 300 UNITS/3 ML VIAL SC PRN ×2 (18:28→20:35)
[2019-02-03] MEDS ORDERED: Insulin Glargine 10 UNITS in Pre-Filled Syringe 1 EACH SC SCH (21:00)
[2019-02-04] MEDS: Hydrocortisone Sod Succ/PF 100 MG in Sodium Chloride 0.9% 50 ML IVPB SCH ×2 (01:17→10:11)
[2019-02-04] MEDS: DAPTOmycin 500 MG in Sodium Chloride 0.9% 100 ML IVPB SCH (01:17)
[2019-02-04] MEDS: Sodium Chloride 0.9% 1,000 ML IV SCH (06:07)
[2019-02-04] MEDS: Piperacillin/Tazobactam 4.5 GM in Sodium Chloride 0.9% 100 ML IVPB SCH ×3 (06:07→20:21)
[2019-02-04] MEDS: HumaLOG 300 UNITS/3 ML VIAL SC PRN ×3 (06:15→17:20)
[2019-02-04 06:48] LABS: Anion Gap 12 mmol/L (10-20); BUN (Urea Nitrogen) 14 mg/dL (8.4-25.7); Calc. Creatinine Clearance 105 mL/min (70-130); Calcium 8.4 mg/dL (7.8-10.44); Carbon Dioxide 19 mmol/L (22-29); Chloride 113 mmol/L (98-107); Estimated GFR-MDRD Greater than 90; Glucose 174 mg/dL (70-105); Potassium 3.5 mmol/L (3.5-5.1); Sodium 140 mmol/L (136-145)
[2019-02-04 06:56] LABS: Band 11 % (5-11); Hemoglobin 11.7 g/dL (14.0-18.0); Hypochromia SLIGHT = 6-15 cells (100X) (0-5/hpf); Lymphocytes 13 % (21-51); MDiff Complete? YES; Mean Corpuscular HGB CONC 32.7 g/dL (32.0-36.0); Mean Corpuscular Hemoglobin 29.8 pg (27.0-31.0); Mean Platelet Volume 8.2 fL (7.4-10.4); Monocytes 2 % (0-10); Neutrophil 74 % (42-75); Platelet Count 126 thou/uL (130-400); Platelet Morphology Comment Appears Adequate; Red Blood Cell (RBC) Count 3.91 mill/uL (4.70-6.10); White Blood Cell (WBC) Count 14.2 thou/uL (4.8-10.8)
[2019-02-04] MEDS ORDERED: Artificial Tears 18 DROP/0.9 ML EA EYE PRN (08:41)
--- NOTE | 2019-02-04 08:44 | PDOC.PN ---
- Subjective Encounter Start Date: 02/04/19 (f/u bacteremia) Encounter Start Time: 08:43 Subjective: Pt reports eyes are itching/watery. Denies any pain/n/v/chest pain -: he does note swelling in his arms/legs - Objective Vital Signs & Weight: Vital Signs (12 hours) Temp 02/04/19 07:36 98.8 F 02/04/19 04:00 98.8 F 02/03/19 23:37 98.8 F Weight Weight 185 lb 11.2 oz Most Recent Monitor Data Heart Rate from ECG 106 NIBP 100/63 NIBP BP-Mean 75 Respiration from ECG 23 SpO2 99 I&O: 02/03/19 02/04/19 02/05/19 06:59 06:59 06:59 Intake Total 1810 4315 Output Total 750 3050 Balance 1060 1265 Result Diagrams: 02/04/19 06:11 02/04/19 06:11 Additional Labs: Accuchecks 02/04/19 02/03/19 02/03/19 05:45 20:27 16:11 POC Glucose 163 H 310 H 264 H 02/03/19 10:26 POC Glucose 233 H EKG Reviewed by me: Yes (tele - sinus tach 100-110) Phys Exam - Physical Examination Constitutional: NAD Respiratory: no wheezing, no rhonchi faint bibasilar rales Cardiovascular: RRR, no significant murmur Gastrointestinal: soft, non-tender, no distention, positive bowel sounds trace pitting edema in arms and legs Neurological: non-focal Psychiatric: normal affect Dx/Plan (1) Sepsis Code(s): A41.9 - SEPSIS, UNSPECIFIED ORGANISM Status: Acute (2) Metabolic encephalopathy Code(s): G93.41 - METABOLIC ENCEPHALOPATHY Status: Resolved (3) Adrenal insufficiency Code(s): E27.40 - UNSPECIFIED ADRENOCORTICAL INSUFFICIENCY Status: Chronic (4) Diabetes type 2, controlled Code(s): E11.9 - TYPE 2 DIABETES MELLITUS WITHOUT COMPLICATIONS Status: Chronic Qualifiers: Diabetes mellitus retirement insulin use: with retirement use (5) Dyslipidemia Code(s): E78.5 - HYPERLIPIDEMIA, UNSPECIFIED Status: Chronic (6) Essential hypertension Code(s): I10 - ESSENTIAL (PRIMARY) HYPERTENSION Status: Chronic - Plan * * Sepsis with Coag neg bacteremia * continue daptomycin and zosyn until eval by ID * Encephalopathy - appears resolved based on conversation this morning * monitor for change. * Adrenal insufficiency - on solu-cortef with soft blood pressures - will continue this for now * low normal bp's with good UOP * will d/c fluids as pt with edema - and monitor. Restart if bp's lower * DM - blood sugar increased - start lantus with 20 units this morning (home dose is 45) and continue SSI * * htn - monitor bp's * RA - on home meds * HLP - home meds * * dvt prophy - on full dose Xarelto * gi prophy - on home H2 inna * * reviewed plan of care with patient, no questions or further needs at end of eval * pt remains at high risk in current condition - continue care in IM. * if pt remains stable through today, anticipate he can be transferred to tele.
[2019-02-04] MEDS: Atorvastatin Calcium 20 MG TAB PO SCH (10:09)
[2019-02-04] MEDS: Rivaroxaban 10 MG TAB PO SCH (10:09)
[2019-02-04] MEDS: Loratadine 10 MG TAB PO SCH (10:09)
[2019-02-04] MEDS: Ezetimibe 10 MG TAB PO SCH (10:09)
[2019-02-04] MEDS: Tamsulosin HCl 0.4 MG CAP PO SCH (10:10)
[2019-02-04] MEDS: Famotidine 20 MG TAB PO SCH (10:10)
[2019-02-04] MEDS: Folic Acid 1 MG TAB PO SCH (10:10)
[2019-02-04] MEDS: Multivitamin W/ Minerals 1 TAB PO SCH (10:10)
[2019-02-04] MEDS: Insulin Glargine 20 UNITS in Pre-Filled Syringe 1 EACH SC SCH (10:11)
--- NOTE | 2019-02-04 11:20 | PRG ---
DATE OF SERVICE: 02/04/2019 SUBJECTIVE: The patient is doing much better. He is awake. He is sitting up in a chair. He recognized me. He has no acute complaints. OBJECTIVE: VITAL SIGNS: Temperature is 98.8, pulse 106, blood pressure 100/63, and O2 saturation 100%. HEENT: Unremarkable. NECK: No adenopathy or JVD. LUNGS: Clear to auscultation. CARDIAC: S1 and S2 regular. ABDOMEN: Soft. EXTREMITIES: No edema. LABORATORY DATA: White blood cell count 14.2, hematocrit 35.6, and platelet count 126. Sodium 140, potassium 3.5, chloride 113, CO2 of 19, BUN 14, creatinine 0.9, and glucose 174. His cultures are growing out coag-negative Staph from both blood cultures. In the past, he has had issues with MRSA. The source of his infection is currently not known. ASSESSMENT: 1. Bacteremia. 2. Sepsis with improved clinical picture. 3. Adult Still disease. PLAN: He can be transferred out to the medical floor for continued treatment. We are awaiting ID input. Job ID: [id number]
--- NOTE | 2019-02-04 16:30 | CON ---
DATE OF CONSULTATION: 02/04/2019 REASON: Fever and bacteremia. HISTORY OF PRESENT ILLNESS: A 58-year-old who is known to me from multiple prior admissions with a history of type 2 diabetes, C-spine fusion, and adult Still disease/rheumatoid arthritis, which has improved on anakinra and prednisone. In November 2018, he developed MRSA bacteremia, which appeared to be transient without obvious primary site and he was treated for protracted period of time with IV daptomycin, this was done through a PICC line. After completion of treatment, he remained well until about a few weeks ago when he noticed skin itching mostly in the head, but also on the chest and papules in the skin of the chest wall. He also then developed coughing spells with a small amount of sputum production and eventually brought in because of altered mental status, basically was found by family in his car and he was unable to answer questions and was brought to the emergency room. The initial findings included BP 117/53, pulse 129, temperature 103.1. The patient did not appear in pain, was not in distress. Respiratory rate was normal. Neck was supple. Lungs with clear breath sounds. Heart exam was not remarkable. Abdomen soft, not tender. LABORATORY DATA: Initial lab data; white cell count 7.9, hemoglobin 12.5, MCV 92, platelets 135 with a normal differential. INR 1.1. Sodium 136, creatinine 1.1. AST 553, ALT 34, alkaline phosphatase 96, albumin 3.5, and globulin 2.4. Urinalysis with normal findings, except for glycosuria and a little bit of protein and the urine toxicology was all negative. The patient has had 2/2 sets of blood cultures positive for coagulase-negative Staph. Those are logged as having been drawn at the same time. The coagulase-negative Staph is not lugdunensis or epidermidis and the full identification of the coag-negative staph is still pending. Currently, he is receiving daptomycin. He is awake. His mental status has much improved. He recognized me sitting by the bedside, and he is very pleasant as usual. Denies any headaches. The joint and neck pain have improved markedly after he started anakinra and prednisone in the outpatient setting. He has noticed burning around his eyes and itching of the facial skin for the past few weeks and he has noticed those papules in the chest area. He also has a little bit of a dry cough, which has not resolved yet. No dyspnea. No abdominal pain. Voiding without difficulty. No diarrhea. No neurological symptoms. PAST MEDICAL HISTORY: Includes adult Still disease/rheumatoid arthritis; hyperlipidemia; type 2 diabetes; recent episode of MRSA bacteremia, which appeared to be transient, treated for protracted period of time with daptomycin. PAST SURGICAL HISTORY: Cholecystectomy, left shoulder repair, neck fusion, knee arthroscopy. SOCIAL HISTORY: Never smoker. Lives in [place] with mother. No alcoholic beverage use. FAMILY HISTORY: Coronary artery disease, type 2 diabetes. ALLERGIES: Vancomycin, diffuse rash (not red man syndrome). CURRENT MEDICATIONS: Include, 1. Tylenol. 2. Lipitor. 3. Dulcolax. 4. Daptomycin. 5. Zetia. 6. Pepcid. 7. Folvite. 8. Insulin. 9. Claritin. 10. Anakinra. 11. Zosyn. 12. Prednisone. 13. Xarelto. 14. Tamsulosin. PHYSICAL EXAMINATION: VITAL SIGNS: Since admission, his temperature has normalized. His other vital signs are normal, O2 saturation 97. SKIN: The patient has small little hyperpigmented papules in the anterior chest area. Some of them appear like little blisters. He seems to have a kind of a reddish tone of his skin color. There is no lymphadenopathy. HEENT: The ocular movements are conjugate. Sclerae are white. Conjunctivae are normal. Oral cavity normal. Numerous teeth in place, very good and shape. NECK: A little bit stiff to all directions like usual. LUNGS: Clear to auscultation and percussion. S1 and S2, regular rate. No S3 or S4. ABDOMEN: Soft. Not distended or tender. No ascites. No bladder distention. No organomegaly. EXTREMITIES: He has this usual joint findings with stiffness of the joints, which is diffuse, particularly involving hands, knees, ankles, and feet. NEUROLOGIC: His cognitive function appears to be intact. Neuro examination nonfocal, otherwise. LABORATORY DATA: Followup labs, white cell count is at 14.2, hemoglobin is 11.7 platelets are 126, 13% lymphocytes, eosinophils are 0.1. Followup chemistry, sodium 140, creatinine 0.91, calcium 8.4. IMAGING STUDIES: Include a chest x-ray with no acute interval change and also there is a CT angiogram done on arrival with no stenosis noted. The patient had a CT of the brain, which revealed no acute findings noted. ASSESSMENT: 1. Adult Still disease/rheumatoid arthritis. 2. Chronic immunosuppressive therapy, which has led to improvement in the underlying inflammatory process, but has had at least one infectious complications with methicillin-resistant Staphylococcus aureus bacteremia identified and treated recently. 3. Subacute onset of diffuse skin redness with pruritus associated with papules in the skin of the chest. 4. Fever and altered mental status. 5. Bacteremia with coagulase-negative Staph. DISCUSSION: Differential diagnosis includes true coagulase-negative Staph bacteremia versus contamination of the sample versus an opportunistic infectious process that is not related to the blood culture finding. Persons on anakinra and prednisone can develop the usual noted complications including disseminated fungal and viral infections. We will check his Pneumocystis assay with Fungitell assay , CMV DNA PCR. Submit the sample of the skin for herpes zoster, herpes simplex DNA PCR, and may need a biopsy. Submit histoplasma antigen in urine and cryptococcus antigen as well. Continue daptomycin until final identification of the coagulase-negative Staph, so we can decide if it is a contaminant or a true pathogenic role. Job ID: [id number] [facility]
[2019-02-04] MEDS: ANAKINRA SC SCH (20:25)
[2019-02-05] MEDS: DAPTOmycin 500 MG in Sodium Chloride 0.9% 100 ML IVPB SCH (01:34)
[2019-02-05 04:41] LABS: #Eosinphils 0.1 thou/uL (0.0-0.7); #Monocytes 0.8 thou/uL (0.11-0.59); #Neutrophils 7.5 thou/uL (1.40-6.50); %Basophils 0.3 % (0.0-1.0); %Eosinophils 0.6 % (0.0-10.0); %Lymphocytes 19.3 % (21.0-51.0); %Monocytes 7.2 % (0.0-10.0); %Neutrophils 72.5 % (42.0-75.0); Hemoglobin 10.9 g/dL (14.0-18.0); Mean Corpuscular HGB CONC 32.9 g/dL (32.0-36.0); Mean Corpuscular Hemoglobin 29.9 pg (27.0-31.0); Mean Corpuscular Volume 90.7 fL (78.0-98.0); Platelet Count 132 thou/uL (130-400); RBC Distribution Width 16.1 % (11.5-14.5); Red Blood Cell (RBC) Count 3.66 mill/uL (4.70-6.10); White Blood Cell (WBC) Count 10.3 thou/uL (4.8-10.8)
[2019-02-05 04:59] LABS: Anion Gap 10 mmol/L (10-20); BUN (Urea Nitrogen) 14 mg/dL (8.4-25.7); Calc. Creatinine Clearance 98 mL/min (70-130); Calcium 8.2 mg/dL (7.8-10.44); Carbon Dioxide 21 mmol/L (22-29); Chloride 114 mmol/L (98-107); Estimated GFR-MDRD Greater than 90; Glucose 108 mg/dL (70-105); Sodium 142 mmol/L (136-145)
[2019-02-05 05:01] LABS: Potassium 2.7 mmol/L (3.5-5.1)
[2019-02-05] MEDS ORDERED: Potassium Chloride 20 MEQ TAB PO SCH (05:30)
[2019-02-05] MEDS: Piperacillin/Tazobactam 4.5 GM in Sodium Chloride 0.9% 100 ML IVPB SCH ×3 (05:42→21:30)
[2019-02-05] MEDS ORDERED: predniSONE 20 MG TAB PO SCH (09:00)
[2019-02-05] MEDS: Rivaroxaban 10 MG TAB PO SCH (09:01)
[2019-02-05] MEDS: Atorvastatin Calcium 20 MG TAB PO SCH (09:01)
[2019-02-05] MEDS: Folic Acid 1 MG TAB PO SCH (09:01)
[2019-02-05] MEDS: predniSONE 20 MG TAB PO SCH (09:01)
[2019-02-05] MEDS: Potassium Chloride 20 MEQ TAB PO SCH ×2 (09:02→14:33)
[2019-02-05] MEDS: Loratadine 10 MG TAB PO SCH (09:02)
[2019-02-05] MEDS: Famotidine 20 MG TAB PO SCH (09:02)
[2019-02-05] MEDS: Ezetimibe 10 MG TAB PO SCH (09:02)
[2019-02-05] MEDS: Multivitamin W/ Minerals 1 TAB PO SCH (09:03)
[2019-02-05] MEDS: Tamsulosin HCl 0.4 MG CAP PO SCH (09:03)
[2019-02-05] MEDS: Insulin Glargine 20 UNITS in Pre-Filled Syringe 1 EACH SC SCH (09:06)
--- NOTE | 2019-02-05 09:42 | PRG ---
DATE OF SERVICE: 02/03/2019 SUBJECTIVE: The patient is doing fairly well. He had no acute complaints. OBJECTIVE: VITAL SIGNS: Temperature 97.2, pulse 96, blood pressure 117/66. HEENT: Unremarkable. NECK: No JVD. CHEST: Fairly clear anteriorly. CARDIAC: S1, S2. Regular. ABDOMEN: Soft. EXTREMITIES: No edema. LABORATORY DATA: White blood cell count 10, hematocrit 33, platelet count 132. Sodium 142, potassium 3.7, chloride 114, CO2 21, BUN 14, creatinine 0.9, glucose 108. ASSESSMENT: 1. Coag negative staph sepsis. 2. Still disease-adult onset. 3. Immunocompromised patient. PLAN: 1. I will go ahead and reduce his steroid dose. 2. Continuing IV antibiotics. 3. Transferring to Medical. 4. Potassium orders have been written by Dr. Eli. Job ID: [id number]
[2019-02-05] MEDS ORDERED: Potassium Chloride 40 MEQ in Sodium Chloride 0.9% 250 ML 250 ML IVPB SCH (10:45)
[2019-02-05] MEDS: HumaLOG 300 UNITS/3 ML VIAL SC PRN ×3 (11:47→20:05)
--- NOTE | 2019-02-05 14:46 | PDOC.PN ---
- Subjective Encounter Start Date: 02/05/19 Encounter Start Time: 14:44 Subjective: feels almost back to baseline. feels that the 'bumps'on chest are better -: no more fever.no cough/SOB -: taking his own Anakinra - Objective MAR Reviewed: Yes Vital Signs & Weight: Vital Signs (12 hours) Temp Pulse Resp BP Pulse Ox 02/05/19 12:00 98.4 F 02/05/19 10:26 98.4 F 02/05/19 08:00 97.2 F L 02/05/19 07:54 98 02/05/19 07:08 98.8 F 02/05/19 04:00 99.6 F 02/05/19 03:41 85 18 118/68 97 Weight Weight 185 lb 11.2 oz Most Recent Monitor Data Heart Rate from ECG 96 NIBP 118/68 NIBP BP-Mean 84 Respiration from ECG 25 SpO2 99 I&O: 02/04/19 02/05/19 02/06/19 06:59 06:59 06:59 Intake Total 4315 1625 Output Total 3050 4450 Balance 1265 -2825 Result Diagrams: 02/05/19 04:27 02/05/19 04:27 Additional Labs: Accuchecks 02/05/19 02/05/19 02/04/19 10:05 05:42 20:14 POC Glucose 187 H 98 228 H 02/04/19 17:01 POC Glucose 201 H Microbiology 02/02/19 21:45 Venous blood - Right Arm Blood Culture - Final Staphylococcus capitis 02/02/19 21:45 Venous blood - Left Arm Blood Culture - Final Staphylococcus capitis Phys Exam - Physical Examination Constitutional: NAD HEENT: PERRLA, moist MMs, sclera anicteric, oral pharynx no lesions Neck: no nodes, no JVD, supple, full ROM Respiratory: no wheezing, no rales, no rhonchi, clear to auscultation bilateral Cardiovascular: RRR, no significant murmur Gastrointestinal: soft, non-tender, no distention, positive bowel sounds Musculoskeletal: no edema, pulses present Neurological: non-focal, normal sensation, moves all 4 limbs Psychiatric: normal affect, A&O x 3 Dx/Plan (1) Fever Code(s): R50.9 - FEVER, UNSPECIFIED Status: Acute Comment: episdoe of Stil disease and not true Infectious process.W/U underway for Viral/fungal etiologies. Discussed w ID. (2) Coag negative Staphylococcus bacteremia Code(s): R78.81 - BACTEREMIA Status: Acute Comment: Unsure if True infection Vs contamination.on Daptomycin.Await final recs from ID. (3) Hypokalemia Code(s): E87.6 - HYPOKALEMIA Status: Resolved Comment: Replace and recheck (4) 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 DISEASE Status: Chronic Comment: Cont Anakinran and PO steroids.OP Rheumatology follow up (5) Chronic anticoagulation Code(s): Z79.01 - CUSTODIAL (CURRENT) USE OF ANTICOAGULANTS Status: Chronic Comment: Continue Xarelto (6) Chronic combined systolic and diastolic CHF, NYHA class 2 Code(s): I50.42 - CHRONIC COMBINED SYSTOLIC AND DIASTOLIC HRT FAIL Status: Chronic Comment: Compensated (7) Dyslipidemia Code(s): E78.5 - HYPERLIPIDEMIA, UNSPECIFIED Status: Chronic (8) Essential hypertension Code(s): I10 - ESSENTIAL (PRIMARY) HYPERTENSION Status: Chronic Comment: controlled.monitor.Pt w Potential for hypotension w Still's disease (9) H/O deep venous thrombosis Code(s): Z86.718 - PERSONAL HISTORY OF OTHER VENOUS THROMBOSIS AND EMBOLISM Status: Chronic - Plan continue antibiotics, respiratory therapy, out of bed/ambulate, DVT proph w/SCDs awaiting final Infectious work up including CMV,HSV,HZV,Fungitell etc -: cont Abx for now given 2/2 staph Capitis.defer to ID -: clinically better and doubtful that this is sepsis-likely d/t Still;s as pt -: has had similar presentation w high fever,hypotension & athralgias in past -: am labs.HD stable * . Review of Systems - Review of Systems Constitutional: weakness, malaise ENT: negative: Ear Pain, Ear Discharge, Nose Pain, Nose Discharge, Nose Congestion, Mouth Pain, Mouth Swelling, Throat Pain, Throat Swelling, Other Respiratory: negative: Cough, Dry, Shortness of Breath, Hemoptysis, SOB with Excertion, Pleuritic Pain, Sputum, Wheezing Cardiovascular: negative: chest pain, palpitations, orthopnea, paroxysmal nocturnal dyspnea, edema, light headedness, other Gastrointestinal: negative: Nausea, Vomiting, Abdominal Pain, Diarrhea, Constipation, Melena, Hematochezia, Other Genitourinary: negative: Dysuria, Frequency, Incontinence, Hematuria, Retention , Other Musculoskeletal: negative: Neck Pain, Shoulder Pain, Arm Pain, Back Pain, Hand Pain, Leg Pain, Foot Pain, Other Skin: Rash - Medications/Allergies Allergies/Adverse Reactions: Allergies Allergy/AdvReac Type Severity Reaction Status Date / Time vancomycin Allergy Verified 12/04/18 17:47 Medications: Current Medications Acetaminophen (Tylenol) 650 mg NJ Q4H PRN PRN Reason: Headache/Fever/Mild Pain (1-3) Acetaminophen (Tylenol) 500 mg PO Q4H PRN PRN Reason: Fever/Mild Pain Artificial Tears (Tears Naturale) 2 drop EA EYE Q4H PRN PRN Reason: Dry Eyes Atorvastatin Calcium (Lipitor) 40 mg PO [facility] Last Admin: 02/05/19 09:01 Dose: 40 mg Bisacodyl (Dulcolax) 10 mg PO DAILYPRN PRN PRN Reason: Constipation Dextrose/Water (Dextrose 50%) 25 gm SLOW IVP PRN PRN PRN Reason: Hypoglycemia Ezetimibe (Zetia) 10 mg PO [facility] Last Admin: 02/05/19 09:02 Dose: 10 mg Famotidine (Pepcid) 20 mg PO DAILY [facility] Last Admin: 02/05/19 09:02 Dose: 20 mg Folic Acid (Folvite) 1 mg PO DAILY [facility] Last Admin: 02/05/19 09:01 Dose: 1 mg Glucagon (Glucagon) 1 mg IM PRN PRN PRN Reason: Hypoglycemia Piperacillin Sod/Tazobactam (Sod 4.5 gm/ Sodium Chloride) 100 mls @ 200 mls/hr IVPB Q8HR [facility] Last Admin: 02/05/19 14:33 Dose: 100 mls Daptomycin 500 mg/ Sodium (Chloride) 100 mls @ 200 mls/hr IVPB Q24HR [facility] Last Admin: 02/05/19 01:34 Dose: 100 mls Dextrose/Water (D5w) 1,000 mls @ 0 mls/hr IV .Q0M PRN PRN Reason: Hypoglycemia Insulin Glargine 20 units/ (Miscellaneous Medication) 0.2 mls @ 0 mls/hr [facility] Admin: 02/05/19 09:06 Dose: 0.2 mls Insulin Human Lispro (Humalog) 0 units SC .MILD SLIDING SCALE PRN PRN Reason: Mild Correctional Scale Last Admin: 02/05/19 11:47 Dose: 2 unit Insulin Human Lispro (Humalog) 0 units SC .BEDTIME SLIDING SC PRN PRN Reason: Bedtime Correctional Scale Last Admin: 02/03/19 20:35 Dose: 4 unit Iron/Minerals/Multivitamins (Theragran M) 1 tab PO DAILY [facility] Last Admin: 02/05/19 09:03 Dose: 1 tab Loratadine (Claritin) 10 mg PO DAILY [facility] Last Admin: 02/05/19 09:02 Dose: 10 mg Anakinra [Kineret] 100 Mg/0.67 Ml Syr Patient's Home Medication 0 each SC QPM [facility] Last Admin: 02/04/19 20:25 Dose: 1 each Prednisone (Prednisone) 10 mg PO DAILY [facility] Last Admin: 02/05/19 09:01 Dose: 10 mg Rivaroxaban (Xarelto) 20 mg PO [facility] Last Admin: 02/05/19 09:01 Dose: 20 mg Sodium Chloride (Flush - Normal Saline) 10 ml IVF Q12HR [facility] Last Admin: 02/05/19 09:03 Dose: 10 ml Sodium Chloride (Flush - Normal Saline) 10 ml IVF PRN PRN PRN Reason: Saline Flush Tamsulosin HCl (Flomax) 0.4 mg [facility] Last Admin: 02/05/19 09:03 Dose: 0.4 mg
--- NOTE | 2019-02-05 18:24 | PRG ---
DATE OF SERVICE: 02/05/2019 SUBJECTIVE: Mr. Knight is seen by the bedside. His itching is improved. He still has the joint pains and stiffness, but better than before. No cough. No chest pain. No abdominal pain. No diarrhea. OBJECTIVE: VITAL SIGNS: His T-max 99.6, blood pressure 120/70, pulse 88, O2 saturation 99 on room air. GENERAL: Appears in no distress. CHEST: A few pustules today in the chest were unroofed and a sample submitted for herpes simplex and herpes zoster DNA PCR. LABORATORY DATA: White cell count down to 10.3, hemoglobin 10.9, and platelets 132. Creatinine 0.98. His last echocardiogram was done in October. ASSESSMENT: 1. Adult Still disease/rheumatoid arthritis, on chronic immunosuppressive therapy. Recent methicillin-resistant Staphylococcus aureus bacteremia treated, Staphylococcus capitis bacteremia. 2. Fever and altered mental status. DISCUSSION: The Staphylococcus capitis samples were drawn, exactly the same time as logged by the senior qc technician. Therefore, it is more likely that this represents contamination of the sample rather than true bacteremia with opportunistic process particularly vis-a-vis the skin lesions need to be considered. My plan is to order an echo just to follow up the bacteremia and make sure he does not have a rare case of Staphylococcus capitis endocarditis and withhold antimicrobial therapy. Await on the opportunistic pathogen workup including the skin sample for HSV and VZV PCR. Job ID: [id number]
[2019-02-05] MEDS: ANAKINRA SC SCH (20:04)
[2019-02-06] MEDS: DAPTOmycin 500 MG in Sodium Chloride 0.9% 100 ML IVPB SCH ×2 (01:36→10:49)
[2019-02-06] MEDS: Piperacillin/Tazobactam 4.5 GM in Sodium Chloride 0.9% 100 ML IVPB SCH ×3 (06:09→21:33)
[2019-02-06 06:19] VITALS: BMI 27.3
[2019-02-06 06:41] LABS: #Eosinphils 0.1 thou/uL (0.0-0.7); #Lymphocytes 2.3 thou/uL (1.20-3.40); #Monocytes 0.6 thou/uL (0.11-0.59); #Neutrophils 2.9 thou/uL (1.40-6.50); %Basophils 0.7 % (0.0-1.0); %Lymphocytes 38.4 % (21.0-51.0); %Monocytes 10.2 % (0.0-10.0); %Neutrophils 48.6 % (42.0-75.0); Hemoglobin 11.6 g/dL (14.0-18.0); Mean Corpuscular HGB CONC 32.6 g/dL (32.0-36.0); Mean Corpuscular Hemoglobin 29.7 pg (27.0-31.0); Mean Corpuscular Volume 91.3 fL (78.0-98.0); Mean Platelet Volume 8.3 fL (7.4-10.4); Platelet Count 146 thou/uL (130-400); RBC Distribution Width 15.6 % (11.5-14.5); White Blood Cell (WBC) Count 5.9 thou/uL (4.8-10.8)
[2019-02-06 07:05] LABS: Anion Gap 9 mmol/L (10-20); BUN (Urea Nitrogen) 13 mg/dL (8.4-25.7); Calc. Creatinine Clearance 103 mL/min (70-130); Calcium 8.8 mg/dL (7.8-10.44); Carbon Dioxide 22 mmol/L (22-29); Chloride 112 mmol/L (98-107); Estimated GFR-MDRD Greater than 90; Glucose 91 mg/dL (70-105); Potassium 3.4 mmol/L (3.5-5.1); Sodium 140 mmol/L (136-145)
[2019-02-06] MEDS: Rivaroxaban 10 MG TAB PO SCH (09:00)
[2019-02-06] MEDS: Folic Acid 1 MG TAB PO SCH (09:00)
[2019-02-06] MEDS: Ezetimibe 10 MG TAB PO SCH (09:00)
[2019-02-06] MEDS: Tamsulosin HCl 0.4 MG CAP PO SCH (09:01)
[2019-02-06] MEDS: predniSONE 20 MG TAB PO SCH (09:01)
[2019-02-06] MEDS: Atorvastatin Calcium 20 MG TAB PO SCH (09:01)
[2019-02-06] MEDS: Multivitamin W/ Minerals 1 TAB PO SCH (09:01)
[2019-02-06] MEDS: Loratadine 10 MG TAB PO SCH (09:01)
[2019-02-06] MEDS: Famotidine 20 MG TAB PO SCH (09:01)
[2019-02-06] MEDS: Insulin Glargine 20 UNITS in Pre-Filled Syringe 1 EACH SC SCH (09:02)
--- NOTE | 2019-02-06 09:47 | PRG ---
DATE OF SERVICE: 02/06/2019 SUBJECTIVE: The patient is doing well. No acute complaints. OBJECTIVE: VITAL SIGNS: Temperature 98.2, pulse 69, blood pressure 120/72, and O2 saturation 99%. HEENT: Unremarkable. NECK: No adenopathy. No JVD. CHEST: Clear. CARDIAC: S1, S2. Regular. ABDOMEN: Soft. EXTREMITIES: No edema. LABORATORY DATA: White blood cell count 5.9, hematocrit 35.6, and platelet count 146. Sodium 140, potassium 3.4, BUN 13, creatinine 0.9, and glucose 91. ASSESSMENT: 1. Improved encephalopathy. 2. Question coag-negative staph sepsis. 3. Adult-onset Still disease. 4. Immunocompromise. PLAN: At this point, it looks like he is still on antibiotics, but I did not believe that he has an infection. I will defer to Dr. Nickerson for the treatment for that. No further Pulmonary Critical Care issues. I will sign off. Job ID: [id number]
[2019-02-06] MEDS ORDERED: Potassium Chloride 20 MEQ TAB PO SCH (10:00)
[2019-02-06] MEDS: HumaLOG 300 UNITS/3 ML VIAL SC PRN ×3 (11:16→21:36)
--- NOTE | 2019-02-06 16:25 | PDOC.PN ---
- Subjective Encounter Start Date: 02/06/19 Encounter Start Time: 16:23 Subjective: feels pretty good. no new complaints -: feels that his rash on chest has subsided.no fever/chills/N/V/D/CP/SOB/ - Objective MAR Reviewed: Yes Vital Signs & Weight: Vital Signs (12 hours) Temp Pulse Resp BP Pulse Ox 02/06/19 14:52 97.8 F 02/06/19 13:14 86 100 02/06/19 10:23 98.0 F 02/06/19 08:00 99 02/06/19 07:12 98.2 F 02/06/19 06:23 97.7 F 69 20 122/72 100 Weight Weight 180 lb 3.2 oz Most Recent Monitor Data Heart Rate from ECG 96 NIBP 127/72 NIBP BP-Mean 90 Respiration from ECG 25 SpO2 98 I&O: 02/05/19 02/06/19 02/07/19 06:59 06:59 06:59 Intake Total 1625 1360 Output Total 4450 500 Balance -2825 860 Result Diagrams: 02/06/19 06:04 02/06/19 06:04 Additional Labs: Accuchecks 02/06/19 02/06/19 02/05/19 10:11 06:14 19:51 POC Glucose 225 H 90 240 H Microbiology 02/02/19 21:45 Venous blood - Right Arm Blood Culture - Final Staphylococcus capitis 02/02/19 21:45 Venous blood - Left Arm Blood Culture - Final Staphylococcus capitis Phys Exam - Physical Examination Constitutional: NAD HEENT: PERRLA, moist MMs, sclera anicteric, TM's clear, oral pharynx no lesions , 2+ tonsils Neck: no nodes, no JVD, supple, full ROM Respiratory: no wheezing, no rales, no rhonchi, clear to auscultation bilateral Cardiovascular: RRR, no significant murmur Gastrointestinal: soft, non-tender, no distention, positive bowel sounds Musculoskeletal: no edema, pulses present Neurological: non-focal, normal sensation, moves all 4 limbs Psychiatric: normal affect, A&O x 3 Skin: no rash Dx/Plan (1) Coag negative Staphylococcus bacteremia Code(s): R78.81 - BACTEREMIA Status: Acute Comment: Unsure if True infection Vs contamination.on Daptomycin.Await final recs from ID. (2) Hypokalemia Code(s): E87.6 - HYPOKALEMIA Status: Resolved Comment: Replace and recheck (3) Fever Code(s): R50.9 - FEVER, UNSPECIFIED Status: Resolved Comment: episdoe of Stil disease and not true Infectious process.W/U underway for Viral/fungal etiologies. Discussed w ID. (4) 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 DISEASE Status: Chronic Comment: Cont Anakinran and PO steroids.OP Rheumatology follow up (5) Chronic anticoagulation Code(s): Z79.01 - ASSET PROTECTION ASSISTANT (CURRENT) USE OF ANTICOAGULANTS Status: Chronic Comment: Continue Xarelto (6) Chronic combined systolic and diastolic CHF, NYHA class 2 Code(s): I50.42 - CHRONIC COMBINED SYSTOLIC AND DIASTOLIC HRT FAIL Status: Chronic Comment: Compensated (7) Dyslipidemia Code(s): E78.5 - HYPERLIPIDEMIA, UNSPECIFIED Status: Chronic (8) Essential hypertension Code(s): I10 - ESSENTIAL (PRIMARY) HYPERTENSION Status: Chronic Comment: controlled.monitor.Pt w Potential for hypotension w Still's disease (9) H/O deep venous thrombosis Code(s): Z86.718 - PERSONAL HISTORY OF OTHER VENOUS THROMBOSIS AND EMBOLISM Status: Chronic - Plan DVT proph w/SCDs Clinically better.Viral & fungal studies results pending -: cont empiric ABx for now. -: Cont home meds as above -: DC when OK w ID w DC abx recs -: am labs * . Review of Systems - Medications/Allergies Allergies/Adverse Reactions: Allergies Allergy/AdvReac Type Severity Reaction Status Date / Time vancomycin Allergy Verified 12/04/18 17:47 Medications: Current Medications Acetaminophen (Tylenol) 650 mg IA Q4H PRN PRN Reason: Headache/Fever/Mild Pain (1-3) Acetaminophen (Tylenol) 500 mg PO Q4H PRN PRN Reason: Fever/Mild Pain Artificial Tears (Tears Naturale) 2 drop EA EYE Q4H PRN PRN Reason: Dry Eyes Atorvastatin Calcium (Lipitor) [facility] [place] Admin: 02/06/19 09:01 Dose: 40 mg Bisacodyl (Dulcolax) 10 mg PO DAILYPRN PRN PRN Reason: Constipation Dextrose/Water (Dextrose 50%) 25 gm SLOW IVP PRN PRN PRN Reason: Hypoglycemia Ezetimibe (Zetia) 10 mg PO QAM [facility] Last Admin: 02/06/19 09:00 Dose: 10 mg Famotidine (Pepcid) 20 mg PO DAILY [facility] Last Admin: 02/06/19 09:01 Dose: 20 mg Folic Acid (Folvite) 1 mg PO DAILY [facility] Last Admin: 02/06/19 09:00 Dose: 1 mg Glucagon (Glucagon) 1 mg IM PRN PRN PRN Reason: Hypoglycemia Piperacillin Sod/Tazobactam (Sod 4.5 gm/ Sodium Chloride) 100 mls @ 200 mls/hr IVPB Q8HR [facility] Last Admin: 02/06/19 14:39 Dose: 100 mls Dextrose/Water (D5w) 1,000 mls @ 0 mls/hr IV .Q0M PRN PRN Reason: Hypoglycemia Insulin Glargine 20 units/ (Miscellaneous Medication) 0.2 mls @ 0 mls/hr SC QAM [facility] Last Admin: 02/06/19 09:02 Dose: 0.2 mls Daptomycin 500 mg/ Sodium (Chloride) 100 mls @ 200 mls/hr IVPB 1000 [facility] Last Admin: 02/06/19 10:49 Dose: 100 mls Insulin Human Lispro (Humalog) 0 units SC .MILD SLIDING SCALE PRN PRN Reason: Mild Correctional Scale Last Admin: 02/06/19 11:16 Dose: 3 unit Insulin Human Lispro (Humalog) 0 units SC .BEDTIME SLIDING SC PRN PRN Reason: Bedtime Correctional Scale Last Admin: 02/05/19 20:05 Dose: 2 unit Iron/Minerals/Multivitamins (Theragran M) 1 tab PO DAILY [facility] Last Admin: 02/06/19 09:01 Dose: 1 tab Loratadine (Claritin) 10 mg PO DAILY [facility] Last Admin: 02/06/19 09:01 Dose: 10 mg Anakinra [Kineret] 100 Mg/0.67 Ml Syr Patient's Home Medication 0 each SC QPM [facility] Last Admin: 02/05/19 20:04 Dose: 1 each Prednisone (Prednisone) 10 mg PO DAILY [facility] Last Admin: 02/06/19 09:01 Dose: 10 mg Rivaroxaban (Xarelto) 20 mg PO QAM-WM [facility] Last Admin: 02/06/19 09:00 Dose: 20 mg Sodium Chloride (Flush - Normal Saline) 10 ml IVF Q12HR [facility] Last Admin: 02/06/19 09:02 Dose: 10 ml Sodium Chloride (Flush - Normal Saline) 10 ml IVF PRN PRN PRN Reason: Saline Flush Tamsulosin HCl (Flomax) 0.4 mg PO QAM [facility] Last Admin: 02/06/19 09:01 Dose: 0.4 mg
[2019-02-06] MEDS ORDERED: Piperacillin/Tazobactam 4.5 GM VIAL ONE (21:28)
[2019-02-06] MEDS: ANAKINRA SC SCH (21:35)
[2019-02-07] MEDS: Piperacillin/Tazobactam 4.5 GM in Sodium Chloride 0.9% 100 ML IVPB SCH (05:26)
[2019-02-07 07:03] LABS: Anion Gap 13 mmol/L (10-20); BUN (Urea Nitrogen) 12 mg/dL (8.4-25.7); Calc. Creatinine Clearance 100 mL/min (70-130); Carbon Dioxide 21 mmol/L (22-29); Chloride 109 mmol/L (98-107); Estimated GFR-MDRD Greater than 90; Glucose 83 mg/dL (70-105); Potassium 3.4 mmol/L (3.5-5.1); Sodium 140 mmol/L (136-145)
[2019-02-07 07:49] VITALS: BP 128/75; TEMP 97.8
[2019-02-07] MEDS: Rivaroxaban 10 MG TAB PO SCH (09:02)
[2019-02-07] MEDS: Atorvastatin Calcium 20 MG TAB PO SCH (09:02)
[2019-02-07] MEDS: Insulin Glargine 20 UNITS in Pre-Filled Syringe 1 EACH SC SCH (09:02)
[2019-02-07] MEDS: Loratadine 10 MG TAB PO SCH (09:03)
[2019-02-07] MEDS: Famotidine 20 MG TAB PO SCH (09:03)
[2019-02-07] MEDS: Tamsulosin HCl 0.4 MG CAP PO SCH (09:03)
[2019-02-07] MEDS: Multivitamin W/ Minerals 1 TAB PO SCH (09:03)
[2019-02-07] MEDS: predniSONE 20 MG TAB PO SCH (09:03)
[2019-02-07] MEDS: Folic Acid 1 MG TAB PO SCH (09:03)
[2019-02-07] MEDS: Ezetimibe 10 MG TAB PO SCH (09:03)
[2019-02-07] MEDS: DAPTOmycin 500 MG in Sodium Chloride 0.9% 100 ML IVPB SCH (10:16)
[2019-02-07] MEDS: HumaLOG 300 UNITS/3 ML VIAL SC PRN (12:02)
[2019-02-07 17:09] LABS: CMV DNA-PCR Test Negative (Negative)
--- NOTE | 2019-02-08 08:26 | DIS ---
DATE OF ADMISSION: 02/03/2019 DATE OF DISCHARGE: 02/07/2019 PRIMARY CARE PHYSICIAN: Dr. William Heredia. CONDITION: At the time of discharge, stable and improved. DISCHARGE DISPOSITION: Home with [facility]. DISCHARGE MEDICATIONS: Remain the same as home medication. No changes were made. He will resume the followin. Anakinra 100 mg subcu every day. 2. Lipitor 40 mg daily. 3. Famotidine 20 mg daily. 4. Folic acid 1 mg daily. 5. Lantus 45 units in the morning and 10 units at bedtime. 6. Multivitamin daily. 7. Xarelto 20 mg daily. 8. Tamsulosin 0.4 mg daily. 9. Prednisone 20 mg daily. 10. Zetia 10 mg daily. IN-HOUSE CONSULTATION: 1. Infectious Disease, Dr. Nickerson. 2. Pulmonary Medicine, Dr. Styles. DISCHARGE DIAGNOSES: 1. Fever. No infectious etiology was identified. It has resolved. 2. Coag-negative Staphylococcus capitis bacteremia, 2/2 blood cultures were positive, but it is thought to be a contaminant. 3. Hypokalemia. SECONDARY DISCHARGE DIAGNOSES: 1. Adult onset Still's disease. 2. Chronic anticoagulation with history of deep vein thrombosis. 3. Dyslipidemia. 4. Hypertension. 5. Chronic combined congestive heart failure, class II. PROCEDURES DONE IN THE HOSPITAL: 1. CT scan of the brain upon presentation, which did not show any acute findings. 2. CT angio of the [place], which once again was unremarkable. 3. Transthoracic echocardiogram which was negative for any vegetations. Showed EF of 40% to 45%, 2/3 diastolic dysfunction with moderate tricuspid regurgitation. HISTORY OF PRESENTING ILLNESS: Mr. Knight is a 58-year-old male with known history of adult onset Still's disease, on immunosuppressive medications, who presented to the emergency room with complaints of fever and altered mental status. He was recently discharged from [facility] on 01/03/2019, after finishing treatment with IV daptomycin for recent MRSA bacteremia leading to sepsis and septic shock. He has been doing fine at home until the day of presentation when he was found to be altered and hot to touch by his family. He was brought into the ER and he was febrile at 102.2, otherwise stable. His initial workup included a CT scan of the brain and CT angio which were unremarkable. His labs were more or less within normal limit as well. He was admitted with a presumptive diagnosis of acute metabolic encephalopathy and rule out sepsis and ID was consulted. Please see admission history and physical dictated by Dr. Moise on 02/03/2019, for full details. HOSPITAL COURSE: The patient had quick improvement in his symptoms after he was started on empiric antibiotics. He also received a big dose of IV steroids with regard to his history of Still's disease. He was seen by Dr. Styles who has seen him in the past for same as well as Dr. Nickerson. Multiple testings were done. His blood culture came back positive 2/2 Staph capitis, but it was thought to be a contaminant. Multiple studies were sent for viral and fungal infections because he is immunocompromised. All of those are pending at this time include urinary histoplasma antigen, HSV, and varicella zoster PCRs as well as CMV PCR and Fungitell assay. He had quick improvement in his symptoms and has been afebrile since pretty much his admission and has no complaints. He is walking and eating normally. His blood work is essentially unremarkable. He is cleared for discharge from Pulmonary and ID standpoint. At this time, the plan is to follow up with Dr. Nickerson in 2 weeks without any antibiotics[address] Dr. Nickerson has also punch biopsied his rash that he complained of upon presentation, which was hyperpigmented papular rash on his chest, which has now gone away. For all of this, he will follow up with Dr. Nickerson in the outpatient setting, but he is cleared for discharge for now. He was seen and examined prior to discharge. PHYSICAL EXAMINATION: VITAL SIGNS: This morning, 100% on room air, blood pressure 128/75. GENERAL: No acute distress. CHEST: Clear to auscultation bilaterally. HEART: Rate and rhythm are regular. DISCHARGE PLAN: Discharge plan was discussed with the patient who verbalized understanding. TOTAL TIME SPENT: 38 minutes. Job ID: [id number]
--- NOTE | 2019-02-10 10:29 | EKG ---
Test Reason : Blood Pressure : / mmHG Vent. Rate : 128 BPM Atrial Rate : 128 BPM P-R Int : 158 ms QRS Dur : 090 ms QT Int : 300 ms P-R-T Axes : 055 010 015 degrees QTc Int : 438 ms Sinus tachycardia Abnormal ECG Confirmed by DONNA JUAREZ M.D. ([id number]), map editor NANCY MILES ([id number]) on 02/10/2019 10:28:56 AM Referred By: Confirmed By:DONNA JUAREZ M.D.
== END 2019-02-07 15:35 | disposition home or self-care (01) | DRG 545 ==
LOC: ERS 21:03 → IMCU/EMU 02-03 00:33 → T4-B 02-06 20:41
PROVIDERS: ADMIT Internal Medicine; ATTEND Internal Medicine
DX: M06.1 Adult-onset Still's disease (principal); G93.41 Metabolic encephalopathy; R78.81 Bacteremia; I50.42 Chronic combined systolic (congestive) and diastolic (congestive) heart failure; E27.40 Unspecified adrenocortical insufficiency; R50.9 Fever, unspecified; B95.7 Other staphylococcus as the cause of diseases classified elsewhere; E87.6 Hypokalemia; M06.9 Rheumatoid arthritis, unspecified; N40.0 Benign prostatic hyperplasia without lower urinary tract symptoms; E78.5 Hyperlipidemia, unspecified; E11.9 Type 2 diabetes mellitus without complications; I11.0 Hypertensive heart disease with heart failure; Z86.718 Personal history of other venous thrombosis and embolism; Z79.01 Long term (current) use of anticoagulants; Z90.49 Acquired absence of other specified parts of digestive tract; Z98.890 Other specified postprocedural states; Z88.0 Allergy status to penicillin
CPT/HCPCS: 36415; 36416; 51702; 70450; 70496; 70498; 71045; 80048; 80053; 80306; 80307; 81003; 81015; 82533; 82550; 83605; 84443; 84484; 85025; 85610; 85730; 87040; 87077; 87149; 87186; 87385; 87449; 87497; 87529; 87798; 93005; 93306; 96360; 96361; 96365; J0878; J1720; J1825; J2543; J3480; J3490; J7050; J7512

== ENCOUNTER 2019-03-30 12:34 | Inpatient (IN) | payer MEDICARE ==
[2019-03-30] MEDS ORDERED: Cefepime 2 GM VIAL ONE (12:54)
[2019-03-30 13:14] LABS: #Lymphocytes 0.8 thou/uL (1.20-3.40); #Monocytes 0.1 thou/uL (0.11-0.59); #Neutrophils 3.5 thou/uL (1.40-6.50); %Eosinophils 0.7 % (0.0-10.0); %Lymphocytes 18.4 % (21.0-51.0); %Monocytes 1.7 % (0.0-10.0); %Neutrophils 79.2 % (42.0-75.0); Hemoglobin 14.3 g/dL (14.0-18.0); Mean Corpuscular HGB CONC 32.6 g/dL (32.0-36.0); Mean Corpuscular Hemoglobin 30.9 pg (27.0-31.0); Mean Corpuscular Volume 94.8 fL (78.0-98.0); Platelet Count 125 thou/uL (130-400); RBC Distribution Width 16.7 % (11.5-14.5); Red Blood Cell (RBC) Count 4.64 mill/uL (4.70-6.10); White Blood Cell (WBC) Count 4.4 thou/uL (4.8-10.8)
[2019-03-30 13:21] LABS: Bilirubin Negative (Negative); Blood, Urine Negative (Negative); Clarity Clear (Clear); Glucose, Urine (Dipstick) 50 mg/dL (Negative); Leukocyte Negative Leu/uL (Negative); Nitrite Negative (Negative); Protein, Urine (Dipstick) 10 mg/dL (Neg-Trace); Urobilinogen Normal mg/dL (Less than 2)
[2019-03-30 13:42] LABS: ALT (SGPT) 26 U/L (8-55); AST (SGOT) 34 U/L (5-34); Albumin 3.5 g/dL (3.5-5.0); Alkaline Phosphatase 80 U/L (40-150); Anion Gap 15 mmol/L (10-20); BUN (Urea Nitrogen) 18 mg/dL (8.4-25.7); Bilirubin, Total 0.5 mg/dL (0.2-1.2); CK (CPK) 415 U/L (30-200); Calc. Creatinine Clearance 0 mL/min (70-130); Calcium 8.4 mg/dL (7.8-10.44); Carbon Dioxide 17 mmol/L (22-29); Chloride 108 mmol/L (98-107); Estimated GFR-MDRD 85; Globulin 2.5 g/dL (2.4-3.5); Glucose 107 mg/dL (70-105); Lipase 37 U/L (8-78); Potassium 3.3 mmol/L (3.5-5.1); Sodium 137 mmol/L (136-145)
[2019-03-30] MEDS ORDERED: Acetaminophen 500 MG TAB ONE (13:51)
--- NOTE | 2019-03-30 13:59 | RAD ---
Portable upright frontal chest radiograph: 03/30/2019 COMPARISON: 02/02/2019 HISTORY: Sepsis FINDINGS: Stable elevation of the right hemidiaphragm with limited assessment of the right lung base. Stable prominence of the cardiac silhouette. No pneumothorax or pleural fluid. No focal consolidation or alveolar edema. IMPRESSION: Stable frontal chest radiograph.
[2019-03-30] MEDS ORDERED: Norepinephrine 4 MG/4 ML VIAL ONE ×2 (14:24→14:33)
[2019-03-30] MEDS ORDERED: DOPamine 400 MG/D5W 250 ML 0 ML ONE (14:27)
[2019-03-30 14:28] LABS: Acetaminophen Less than 6.0 mcg/mL (10.0-30.0); Alcohol Less than 10 mg/dL (Less than 10); Salicylate Less than 8.0 mg/dL (15.0-30.0)
[2019-03-30] MEDS ORDERED: Ondansetron PF 4 MG/2 ML Vial ONE (14:45)
[2019-03-30] MEDS ORDERED: Dexamethasone 4 mg/ml Vial ONE (14:51)
[2019-03-30 15:02] LABS: Amphetamine Not Detected (NotDetected); Barbiturates Screen Not Detected (NotDetected); Benzodiazepine Screen Not Detected (NotDetected); Cocaine Metabolite Screen Not Detected (NotDetected); Medtox Control Line Valid? VALID (VALID); Medtox Reader # READER 1; Methadone Not Detected (NotDetected); Methamphetamine Not Detected (NotDetected); Opiate Screen Not Detected (NotDetected); Oxycodone Screen Not Detected (NotDetected); Phencyclidine (PCP) Not Detected (NotDetected); THC/Cannabinoid Screen Not Detected (NotDetected); Tricyclic Screen Not Detected (NotDetected)
--- NOTE | 2019-03-30 15:23 | RAD ---
SINGLE VIEW CHEST: Date: 03/30/19 COMPARISON: 03/30/19. HISTORY: Sepsis and left hip pain. FINDINGS: Single view of the chest shows an enlarged but stable cardiomediastinal silhouette. There is a left s ubclavian central venous catheter with its tip in the superior vena cava. There is no evidence of con solidation, mass, pneumothorax, or pleural effusion. IMPRESSION: No evidence of acute cardiopulmonary disease. POS: [facility]
[2019-03-30] MEDS ORDERED: Clindamycin/D5W 900 mg/50 ml Premix Bag ONE (15:30)
--- NOTE | 2019-03-30 15:38 | PDOC.FPRHP ---
- History of Present Illness Chief Complaint: Septic Shock History of Present Illness: Pt is 58yo AAM with h/o of Still's disease on chronic immunosupression therapy who presents via EMS after being found down. He does not recall coming to the hospital or the events leading up to it. He states he currently is feeling okay and only complains of a mild headache and numbness of his hands. Pt reports come pain in neck but chronic and h/o cervical fusion. Pt is A/O x3. He denies any sore throat, fever,chills, CP, Abdominal pain, dysuria, GI sxs. Pt does report slight cough and runny nose over the last few weeks and has been coughing up a yellow phlegm. States his mother recently had bronchitis. Records reviewed, and he has been admitting at least twice in last 6 months for very similar presentation. One hospitalization he was found to have MRSA sepsis and the other sepsis recurring ICU but no known source. He has been treated by Dr. Nickerson in the past for multiple infections. ED Course: Given 2l bolus in EMS, BP from 80s -> 113s. Decreased back down to 80s and was given another 2L bolus, with mild BP improvement. BP then went down to 70s and he was started on Levo and a 5th 1L bolus with BP increased to the 80s with a MAP of 65. He was started on Levoquin, Clinda, and Cefepime (Vanc allergy). Admitted to ICU for further management. - Allergies/Adverse Reactions Allergies Allergy/AdvReac Type Severity Reaction Status Date / Time vancomycin Allergy Verified 12/04/18 17:47 - Home Medications Medication Instructions Recorded Confirmed Type Atorvastatin Calcium [Lipitor] 40 mg PO QAM 10/18/15 02/03/19 History Anakinra [Kineret] 100 mg SQ QPM 09/01/18 02/03/19 History Ezetimibe [Zetia] 10 mg PO QAM tab 01/03/19 02/03/19 Rx Famotidine [Pepcid] 20 mg PO DAILY tab 01/03/19 02/03/19 Rx Folic Acid [Folvite] 1 mg PO DAILY tab 01/03/19 02/03/19 Rx Insulin Glargine [Lantus] 10 units SC HS vial 01/03/19 02/03/19 Rx Insulin Glargine [Lantus] 45 units SC QAM vial 01/03/19 02/03/19 Rx Multivitamin W/ Minerals 1 tab PO DAILY tab 01/03/19 02/03/19 Rx [Theragran M] Rivaroxaban [Xarelto] 20 mg PO QAM-WM tab 01/03/19 02/03/19 Rx Tamsulosin HCl [Flomax] 0.4 mg PO QAM cap 01/03/19 02/03/19 Rx predniSONE 20 mg PO QAM-WM tab 01/03/19 02/03/19 Rx Acetaminophen [Tylenol Extra 500 mg PO Q4H PRN 02/03/19 02/03/19 History Strength] Comments: Pt unable to recall med history. From records: Januvia 100mg daily Atorva 40mg daily Kineret Prednisone 5mg daily Xarelto 15mg daily Vit D3 Tramadol 50mg 1-2 q4h prn Zetia 10mg daily - History PMHx: Still's Dz, HLD, h/o DVT, DMII PSHx: Lynsey, L knee, L and R shoulder, cervical fusion FHx: Mother- Heart Problems. Father and Mother with DM Social: Pt denies smoking, Denies current drinking, denies any illicit drug use. - Review of Systems General: denies: fever/chills, night sweats Eyes: denies: vision changes ENT: reports: nasal congestion, rhinorrhea Respiratory: reports: cough, congestion, exercise intolerance. denies: shortness of breath Cardiovascular: denies: chest pain, palpitation Gastrointestinal: denies: nausea, vomiting, diarrhea, constipation, abdominal pain, GI bleeding Genitourinary: reports: other (States his penis jackson). denies: incontinence, dysuria, polyuria, discharge Skin: denies: rashes Musculoskeletal: reports: pain (chronic neck) Neurological: reports: numbness (hands and feet) - Vital signs BP: 65/47 HR: 133 RR: 12 Tmax: 102.7 Pox: 100% on 2L Wt: 81kg - Physical Exam -Constitutional: Ill-appearing, drowsy, A/O x3, unsure of events leading up to hospitalization, but answers question appropriately. HEENT: normocephalic and atraumatic, EOMI, no scleral icterus, MMM, oropharynx clear -HEENT: Cataracts bilaterally Neck: supple, trachea midline, no LAD -Neck: Left IJ in place Chest: no-tender to palpation Heart: RRR, normal S1/S2, no murmurs/rubs/gallops, pulses present, no edema Lungs: CTAB, no respiratory distress, good air movement, no rales/rhonchi, no wheezing, no retractions Abdomen: soft, non-tender, bowel sounds present, no masses/distention Musculoskeletal: normal structure, normal tone Neurological: no focal deficit, CN II-XII intact, normal sensation Skin: no rash/lesions, no jaundice -Skin: No foot ulcers, skin abrasions or lesions noted. Heme/Lymphatic: no unusual bruising or bleeding Psychiatric: normal mood and affect Additional comment: Prostate exam: soft, no nodules, nontender. No gross blood on TRICIA. FMR H&P: Results - Labs Result Diagrams: 03/30/19 13:02 03/30/19 13:02 Lab results: WBC 4.4 thou/uL (4.8-10.8) L 03/30/19 13:02 Hgb 14.3 g/dL (14.0-18.0) 03/30/19 13:02 Hct 43.9 % (42.0-52.0) 03/30/19 13:02 MCV 94.8 fL (78.0-98.0) 03/30/19 13:02 Plt Count 125 thou/uL (130-400) L 03/30/19 13:02 Neutrophils % 79.2 % (42.0-75.0) H 03/30/19 13:02 Sodium 137 mmol/L (136-145) 03/30/19 13:02 Potassium 3.3 mmol/L (3.5-5.1) L 03/30/19 13:02 Chloride 108 mmol/L (98-107) H 03/30/19 13:02 Carbon Dioxide 17 mmol/L (22-29) L 03/30/19 13:02 BUN 18 mg/dL (8.4-25.7) 03/30/19 13:02 Creatinine 1.08 mg/dL (0.7-1.3) 03/30/19 13:02 Glucose 107 mg/dL (70-105) H 03/30/19 13:02 Lactic Acid 2.3 mmol/L (0.5-2.2) H 03/30/19 13:02 Calcium 8.4 mg/dL (7.8-10.44) 03/30/19 13:02 Total Bilirubin 0.5 mg/dL (0.2-1.2) 03/30/19 13:02 AST 34 U/L (5-34) 03/30/19 13:02 ALT 26 U/L (8-55) 03/30/19 13:02 Alkaline Phosphatase 80 U/L (40-150) 03/30/19 13:02 Creatine Kinase 415 U/L (30-200) H 03/30/19 13:02 B-Natriuretic Peptide 27.3 pg/mL (0-100) 03/30/19 13:02 Serum Total Protein 6.0 g/dL (6.0-8.3) 03/30/19 13:02 Albumin 3.5 g/dL (3.5-5.0) 03/30/19 13:02 Lipase 37 U/L (8-78) 03/30/19 13:02 Urine Ketones Negative mg/dL (Negative) 03/30/19 13:10 Urine Blood Negative (Negative) 03/30/19 13:10 Urine Nitrite Negative (Negative) 03/30/19 13:10 Ur Leukocyte Esterase Negative David/uL (Negative) 03/30/19 13:10 - Radiology Interpretation Chest x-ray Status: report reviewed by me (No acute CPP) FMR H&P: A/P - Problem List (1) Septic shock Current Visit: Yes Status: Acute Code(s): A41.9 - SEPSIS, UNSPECIFIED ORGANISM; R65.21 - SEVERE SEPSIS WITH SEPTIC SHOCK (2) DVT (deep venous thrombosis) Current Visit: No Status: Chronic Code(s): I82.409 - ACUTE EMBOLISM AND THOMBOS UNSP DEEP VN UNSP LOWER EXTREMITY (3) Diabetes type 2, controlled Current Visit: No Status: Chronic Code(s): E11.9 - TYPE 2 DIABETES MELLITUS WITHOUT COMPLICATIONS (4) Dyslipidemia Current Visit: No Status: Chronic Code(s): E78.5 - HYPERLIPIDEMIA, UNSPECIFIED (5) Essential hypertension Current Visit: No Status: Chronic Code(s): I10 - ESSENTIAL (PRIMARY) HYPERTENSION Comment: controlled.monitor.Pt w Potential for hypotension w Still's disease (6) Still's disease Current Visit: No Status: Chronic Code(s): M08.20 - JUVENILE RHEUMATOID ARTHRITIS WITH SYSTEMIC ONSET, [facility] SITE - Plan 58yo AAM with h/o Still's Disease, DMII, and DVT's on Xarelto presents in septic shock. 1. Septic Shock - s/p 5L in ED, now on Levophed 30 with MAP 65. Protecting airway. Will consider adding additional pressor if BP unimproved. - IVF of LR @ 125cc/hr. Monitor for fluid overload. - UA clean, UCx and BCx Pending. No nucal rigidity, prostate normal, No obvious source of infection - Records reviewed, History of MRSA sepsis in past as well as previous septic shock in ICU with no identifiable source - Allergy to vanc, will continue Levoquin, Clinda, and cefepime - Will check procal and trend daily. Will check ESR. Trend lactic acid. - Pt initially too unstable for CT abd/pelvis, will order and obtain as pt stabilizes to look for abdominal source of infection. - Last TTE showed aortic valve sclerosis, Cards, Dr. Rosa, consulted, eval for possible endocarditis +/- JOSEPH, apprec recs - Consulted ID, Dr. Nickerson, pt known, apprec recs - Consulted Pulm, Dr. Styles, known from previous admission, apprec recs 2. h/o DVT's - Will continue home Xarelto. No s/s of acute DVT/PE 3. Still's Disease - Given stress dose dexadron in ED. Will continue home prednisone. - Will check Cortisol lv and ESR. Will provide stress steroids if needed. 4. DMII - Hyperglycemic protocol. QACHS Accuchecks with mild SS. Will monitor 5. HLD - Continue home meds Diet: NPO VTE: Xarelto (home) Code: Full Disposition/LOS: Admit to CCU for septic shock on pressors. Septic source workup pending. Anticipate hospitalization 3-5 days. FMR H&P: Upper Level - Pertinent history Pt is unsure of what happened that brought him in. Reports having cough for last few days. I scribed for the internal recruiter above. I edited as i saw needed. I was present during the HPI and helped asked questions as needed. - Pertinent findings Pt MAP was in the 60's with levophed running at a rate of 30. Pt was talking. O2 sats 100% on RA. Pt did not having any acute pain to palpation in abdomen. pt did have mildly swollen penis. Prostate exam was performed and was negative for any signs of prostatitis. Pt was A&Ox3. Pt appeared acutely ill. - Plan Date/Time: 03/30/19 [id number] I, Miguel Carter PGY-3, have evaluated this patient and agree with findings/ plan as outlined by internal recruiter resident. Pertinent changes/additions are listed here. I made above edits to plan as I saw needed. Pt has septic shock from unknown source. Allergic to Vanc. Tx with broad spectrum abx with Cefepime, Levaquin and clinda. We have consulted JADA Cameron and Dr. Styles Puleric/ Crit. Will follow recs. We have obtained blood cx and urine cx. He had aortic valve thickening on TTE during last admission a few months ago for similar sepsis picture. Will consider JOSEPH. Dr. Rosa consulted. Agree with plan above
[2019-03-30] MEDS ORDERED: Iopamidol 370 76% 100 ML VIAL ONE (16:08)
[2019-03-30 17:05] LABS: Lactic Acid 1.6 mmol/L (0.5-2.2)
[2019-03-30] MEDS ORDERED: CCU Electrolyte Replacement 1 EACH IVPB ONE (19:04)
[2019-03-30] MEDS ORDERED: Calcium Carbonate 500 MG ChewTAB PO PRN (19:04)
[2019-03-30] MEDS ORDERED: Acetaminophen 650 MG Suppository PR PRN (19:04)
[2019-03-30] MEDS ORDERED: Acetaminophen 650 MG/20.3 ML UDCUP PO PRN (19:04)
[2019-03-30] MEDS ORDERED: Ondansetron PF 4 MG/2 ML Vial IVP PRN (19:04)
[2019-03-30] MEDS ORDERED: Bisacodyl 5 MG TAB PO PRN (19:04)
[2019-03-30] MEDS ORDERED: Dextrose 5% in Water 1,000 ML IV PRN (19:04)
[2019-03-30] MEDS ORDERED: Dextrose 50% Abboject 50 ML SYRINGE SLOW IVP PRN (19:04)
[2019-03-30] MEDS ORDERED: Norepinephrine 8 MG/0.9% NS 250 ML IVPB PRN (19:04)
[2019-03-30] MEDS ORDERED: CCU ELECTROLYTE REPLACEMENT PROTOCOL FS PRN (19:12)
[2019-03-30] MEDS ORDERED: Potassium Phosphate 9 MMOL in Sodium Chloride 0.9% 100 ML IVPB PRN (19:12)
[2019-03-30] MEDS ORDERED: PHOS-NAK 1 PKT PACK PO PRN ×2 (19:12)
[2019-03-30] MEDS ORDERED: Potassium Chloride 40 MEQ in Sodium Chloride 0.9% 250 ML 250 ML IVPB PRN (19:12)
[2019-03-30] MEDS ORDERED: Magnesium 2 GM/50 ML 2 GM in Premix Bag 1 BAG IVPB PRN (19:12)
[2019-03-30] MEDS ORDERED: Potassium Phosphate 12 MMOL in Sodium Chloride 0.9% 250 ML 250 ML IV PRN (19:12)
[2019-03-30] MEDS ORDERED: Potassium Chloride 40 MEQ in Premix Bag 1 BAG IVPB PRN (19:12)
[2019-03-30] MEDS ORDERED: Magnesium Oxide 400 MG TAB PO PRN ×2 (19:12)
[2019-03-30] MEDS ORDERED: Potassium Chloride 20 MEQ TAB PO PRN (19:12)
[2019-03-30] MEDS ORDERED: Potassium Phosphate 15 MMOL in Sodium Chloride 0.9% 250 ML 250 ML IV PRN (19:12)
[2019-03-30] MEDS: Lactated Ringer's 1,000 ML IV SCH (19:30)
[2019-03-30] MEDS ORDERED: Norepinephrine 8 MG in Dextrose 5% in Water 242 ML IVPB PRN (20:00)
[2019-03-30] MEDS: Clindamycin/D5W 300 MG/50 ML BAG IVPB SCH (20:23)
[2019-03-30] MEDS: HumaLOG 300 UNITS/3 ML VIAL SC PRN ×2 (20:23→23:49)
--- NOTE | 2019-03-30 22:27 | HP ---
HISTORY OF PRESENT ILLNESS: I have examined the patient. I have discussed the case with Dr. Christoph Boyce and agree with his assessment and plan. Mr. Knight is a 58-year-old black man, who was "found down." He does not recall any details of how he got here to the ER. He does not remember anything that happened during the night. He has multiple previous admissions for sepsis and septic shock with no identifiable source thus far. He presented to with hypotension, febrile, meeting SIRS criteria as well as criteria for septic shock. He has been given 5 L of fluids and is on a Levophed infusion. His current MAP is 65. PHYSICAL EXAMINATION: GENERAL: He is awake and alert. He is not in any acute distress, but appears chronically ill. VITAL SIGNS: His blood pressure is currently 82/56, his pulse rate is 110, his respirations are 14 and not labored. He is currently afebrile, but initially had 102.6 fever. EAR, NOSE, AND THROAT: No erythema or exudate noted in the posterior oropharynx. TMs are clear. NECK: Supple. CARDIAC: Heart, rhythm is regular without gallop or murmur noted. LUNGS: Breath sounds are diminished, but clear. No rales, wheezes, rhonchi. No distress. No use of accessory muscles. ABDOMEN: Flat, soft. No guarding, rebound, or rigidity. EXTREMITIES: No obvious source of a soft tissue or skin infection. No focal deficits. No neurological exam. LABORATORY DATA: White count is 4400, hemoglobin 14.3, hematocrit 43.9, MCV is 94.8. Platelets minimally reduced at 125,000. His differential is normal. Chemistries; sodium 137, potassium 3.3, chloride 108, bicarb 17, BUN 18, creatinine 1.08. His blood glucose is 107. His liver enzymes are normal. His creatine kinase is slightly elevated at 415. His initial troponin is less than 0.010. His latest chest x-ray shows no evidence of an acute cardiopulmonary disease. ASSESSMENT: Septic shock, source of infection not yet identified. He has been started on broad-spectrum antibiotics after the drawing of urine and blood cultures. Further directed therapy will depend upon the results of these cultures. We will re-consult Dr. Nickerson and the intensive care doctor. We will continue with the Levophed infusion. Continue fluid infusion. Interestingly, he had a TTE at last hospitalization that showed a sclerotic aortic valve, but no vegetations. It would likely be worthwhile to obtain a JOSEPH to get a better look at the aortic valve and mitral valve given that has not been ruled out. Other plan per Dr. Nickerson. Job ID: [id number]
--- NOTE | 2019-03-30 23:12 | CT ---
CT Chest Abd Pelvis W Con History: Sepsis without source Comparison: Chest radiograph same day Findings: Mild atelectasis in the lung bases. Central venous catheter tip sits at the inferior SVC. N o evidence for pneumonia. Heart size is enlarged. Thyroid is unremarkable. Few mildly enlarged right paratracheal lymph nodes. Moderate bilateral gynecomastia. No axillary adenopathy. Large cyst superior pole right kidney. The appendix is visualized and is normal. Mild bilateral perinephric stranding likely due to volume overload. No dilated loops of large or small bowel. Celiac trunk and superior mesenteric arteries are patent. L iver is unremarkable. Cyst inferior pole left kidney. Severe bilateral hip degenerative changes. Advanced degenerative disc space height loss at L5/S1. Bon es are demineralized. Severe degenerative disease right shoulder. Multiple old left rib fractures. Old left lumbar spine transverse process fractures. Impression: 1. No findings to suggest a source for patient's sepsis. 2. Moderate bilateral gynecomastia.
[2019-03-30] MEDS: Hydrocortisone Sod Succ/PF 100 mg/2 ml Vial IVP SCH (23:49)
[2019-03-31] MEDS: Cefepime 2 GM in Sodium Chloride 0.9% 100 ML IVPB SCH ×2 (00:49→11:35)
--- NOTE | 2019-03-31 01:36 | CON ---
DATE OF CONSULTATION: 03/30/2019 CONSULTING PHYSICIAN: [facility]. REASON FOR CONSULTATION: Hypotension. HISTORY OF PRESENT ILLNESS: Mr. Knight is well known to me. He is a 58-year-old male, who comes to the hospital with an almost identical presentation to his last hospitalization in January. He was found down at home, disoriented. He was febrile with a temperature of over 103 when he came to the ER. He was aggressively fluid resuscitated and has had a central line placed. He has been put on Levophed as well and has been given broad-spectrum IV antibiotics. He is currently awake, alert, and in no distress. He says that he has his usual joint pains, but otherwise is not hurting. He has not been coughing. He has had no chest pain. PAST MEDICAL HISTORY: 1. Still disease. 2. Hypertension. 3. Hyperlipidemia. 4. Diabetes mellitus type 2. 5. MRSA bacteremia. 6. Staphylococcal bacteremia. PAST SURGICAL HISTORY: 1. Cholecystectomy. 2. Left shoulder surgery. 3. Left knee surgery. 4. Cervical spine fusion. 5. Right shoulder surgery. SOCIAL HISTORY: Nonsmoker. Does not consume alcohol. ALLERGIES: PENICILLIN. APPARENTLY, HE HAS BEEN SENSITIVE TO VANCOMYCIN IN THE PAST. MEDICATIONS: Prior to admission; 1. Januvia 100 mg daily. 2. Atorvastatin 40 mg once daily. 3. Kineret 100 mg/0.67 mL subcutaneously daily. 4. Prednisone 5 mg daily. 5. Xarelto 15 mg daily. 6. Vitamin D3 2000 units daily. 7. Tramadol 50 mg daily. 8. Zetia 10 mg nightly. REVIEW OF SYSTEMS: Denies nausea, vomiting, hematemesis, melena, hematochezia, hematuria, or dysuria. PHYSICAL EXAMINATION: VITAL SIGNS: Temperature initially 102.7, pulse is currently running in the 100s, blood pressure 124/60. He is currently on 25 mcg/kg of Levophed. His O2 saturation is 100% on 2 L. HEENT: Unremarkable. NECK: No adenopathy or JVD. CARDIOVASCULAR: S1 and S2 regular without audible murmur. ABDOMEN: Soft and nontender. EXTREMITIES: Without clubbing, cyanosis, or edema. LABORATORY DATA: White blood cell count 4.4, hemoglobin 14.3, hematocrit 43.9, and platelet count 125. Sodium 137, potassium 3.3, chloride 108, CO2 of 17, anion gap 15, BUN 18, creatinine 1.0, and glucose 107. Lactate was originally 2.3, now 1.6. CPK 415. BNP 27.3. Albumin 3.5. Chest x-ray demonstrates clear lung andrade. Central line coursing in from the left subclavian looks to be in adequate position. ASSESSMENT: 1. Presumed septic shock. 2. History of multiple episodes of sepsis in the past. 3. Still disease, prednisone dependent. RECOMMENDATIONS AND PLAN: 1. The patient should be treated with IV steroids, broad-spectrum IV antibiotics that would cover both gram negatives and Staph. 2. Send stool for C difficile. 3. Follow up cultures. 4. I would recommend Infectious Disease consultation if available. 5. We will follow. Job ID: [id number]
[2019-03-31] MEDS: Clindamycin/D5W 300 MG/50 ML BAG IVPB SCH ×5 (03:03→20:12)
[2019-03-31] MEDS: Lactated Ringer's 1,000 ML IV SCH ×3 (03:03→20:11)
[2019-03-31] MEDS: HumaLOG 300 UNITS/3 ML VIAL SC PRN ×5 (04:14→20:12)
[2019-03-31 04:32] LABS: Band 43 % (5-11); Hemoglobin 13.9 g/dL (14.0-18.0); Lymphocytes 5 % (21-51); MDiff Complete? YES; Mean Corpuscular HGB CONC 33.1 g/dL (32.0-36.0); Mean Corpuscular Hemoglobin 31.1 pg (27.0-31.0); Mean Corpuscular Volume 94.1 fL (78.0-98.0); Mean Platelet Volume 8.4 fL (7.4-10.4); Monocytes 5 % (0-10); Neutrophil 47 % (42-75); Platelet Count 125 thou/uL (130-400); Platelet Morphology Comment Appears Adequate; RBC Distribution Width 16.7 % (11.5-14.5); Red Blood Cell (RBC) Count 4.47 mill/uL (4.70-6.10); White Blood Cell (WBC) Count 18.3 thou/uL (4.8-10.8)
[2019-03-31 04:41] LABS: ALT (SGPT) 23 U/L (8-55); AST (SGOT) 35 U/L (5-34); Albumin 3.2 g/dL (3.5-5.0); Alkaline Phosphatase 62 U/L (40-150); Anion Gap 14 mmol/L (10-20); BUN (Urea Nitrogen) 16 mg/dL (8.4-25.7); Bilirubin, Total 0.6 mg/dL (0.2-1.2); Calc. Creatinine Clearance 92 mL/min (70-130); Calcium 8.9 mg/dL (7.8-10.44); Carbon Dioxide 18 mmol/L (22-29); Chloride 111 mmol/L (98-107); Estimated GFR-MDRD 82; Globulin 2.8 g/dL (2.4-3.5); Glucose 219 mg/dL (70-105); Potassium 4.6 mmol/L (3.5-5.1); Sodium 138 mmol/L (136-145)
[2019-03-31] MEDS: Hydrocortisone Sod Succ/PF 100 mg/2 ml Vial IVP SCH ×3 (06:09→17:32)
[2019-03-31] MEDS: Rivaroxaban 10 MG TAB PO SCH (06:09)
[2019-03-31 06:21] VITALS: BMI 29.7
--- NOTE | 2019-03-31 06:22 | PDOC.FM ---
- Subjective Subjective: pt resting comfortably in bed, he denies pain or sob. does not remember much in the way of what brought him to the hospital. does report that he has been out of his medications for a few days - Objective Vital Signs & Weight: Vital Signs (12 hours) Temp Pulse Ox 03/31/19 04:00 98.5 F 03/31/19 00:00 98.4 F 03/30/19 20:00 98.5 F 100 03/30/19 18:30 98 Weight Admit Weight 89.9 kg Weight 89.9 kg Most Recent Monitor Data Heart Rate from ECG 97 NIBP 116/81 NIBP BP-Mean 92 Respiration from ECG 15 SpO2 100 I&O: 03/29/19 03/30/19 03/31/19 06:59 06:59 06:59 Intake Total 1217 Output Total 2500 Balance -1283 Result Diagrams: 03/31/19 04:05 03/31/19 04:05 Phys Exam - Physical Examination Constitutional: NAD HEENT: moist MMs Neck: no nodes, no JVD Respiratory: clear to auscultation bilateral Cardiovascular: RRR, no significant murmur Gastrointestinal: soft, non-tender, no distention Musculoskeletal: no edema, pulses present Neurological: non-focal, moves all 4 limbs Psychiatric: normal affect Skin: no rash Dx/Plan (1) Septic shock Code(s): A41.9 - SEPSIS, UNSPECIFIED ORGANISM; R65.21 - SEVERE SEPSIS WITH SEPTIC SHOCK Status: Acute (2) 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 DISEASE Status: Chronic (3) Chronic anticoagulation Code(s): Z79.01 - A R SPECIALIST (CURRENT) USE OF ANTICOAGULANTS Status: Chronic (4) DVT (deep venous thrombosis) Code(s): I82.409 - ACUTE EMBOLISM AND THOMBOS UNSP DEEP VN UNSP LOWER EXTREMITY Status: Chronic (5) Diabetes type 2, controlled Code(s): E11.9 - TYPE 2 DIABETES MELLITUS WITHOUT COMPLICATIONS Status: Chronic - Plan Plan: 1. Septic Shock - low wbc, fever, tachycardia POA, no presently identified source - UA clean, UCx and BCx Pending. cxr wnl - Records reviewed, History of MRSA sepsis in past as well as previous septic shock in ICU with no identifiable source - Allergy to vanc, will continue Levoquin, Clinda, and cefepime - IVF of LR @ 125cc/hr. Monitor for fluid overload. - Cards, Dr. Rosa, consulted, eval for possible endocarditis +/- JOSEPH, apprec recs - Consulted ID, Dr. Nickerson, pt known, apprec recs - Consulted Pulm, Dr. Styles, known from previous admission, apprec recs 2. h/o DVT's - Will continue home Xarelto. No s/s of acute DVT/PE 3. Still's Disease - Given stress dose dexadron in ED - solumedrol 100 q6 4. DMII - Hyperglycemic protocol. QACHS Accuchecks with mild SS. Will monitor 5. HLD - Continue home meds Diet: NPO, pending +/- JOSEPH VTE: Xarelto (home) Code: Full continue abx and evaluating for source of infection Addendum - Attending - Attending Attestation Date/Time: 03/31/19 3828 I personally evaluated the patient and discussed the management with Dr. Keating. I agree with the History, Examination, Assessment and Plan documented above with any addition or exceptions noted below. Patient admitted for concern for septic shock given his severe and refractory hypotension yesterday and history of staph bacteremia in the past requiring prolonged abx therapy. He reports he is feeling improved today, but does not remember the events of yesterday. He continues on broad spectrum abx. Awaiting cx results. Continues on IVF and Levophed currently. His PCT has trended up somewhat but will continue to trend. Afebrile. His CT scan did not reveal origin of suspected infection. Due to history of abnormal staph variant and abnormal TTE, cardiology has been consulted to comment on the need for JOSEPH for possible endocarditis. ID has also been consulted. Continue abx and fluids at this time and await cx. Random cortisol level abnormal and now on solu-cortef, as he is high risk for adrenal insufficiency due to his prolonged steroid use in the past.
[2019-03-31] MEDS: Folic Acid 1 MG TAB PO SCH (09:09)
[2019-03-31] MEDS: Ezetimibe 10 MG TAB PO SCH (09:09)
[2019-03-31] MEDS: Atorvastatin Calcium 40 MG TAB PO SCH (09:09)
[2019-03-31] MEDS: Insulin Glargine 45 UNITS in Pre-Filled Syringe 1 EACH SC SCH (09:16)
--- NOTE | 2019-03-31 10:01 | PRG ---
DATE OF SERVICE: 03/31/2019 SUBJECTIVE: Mr. Knight is doing well this morning. He was weaned off his Levophed around 11 p.m. last night. PHYSICAL EXAMINATION: VITAL SIGNS: Temperature 98.5, pulse 94, blood pressure 111/75, O2 saturation 100%. 24-hour intake 3229, output 2875. HEENT: Unremarkable. NECK: No adenopathy or JVD. LUNGS: Clear anteriorly. CARDIAC: S1 and S2, regular without murmur. ABDOMEN: Soft and nontender. EXTREMITIES: No clubbing, cyanosis, or edema. IMAGING STUDIES: His CT was only remarkable for some gynecomastia. LABORATORY DATA: His cortisol level was inappropriately low at 7.6. Prolactin level was 29.4. Sodium 138, potassium 4.6, chloride 111, CO2 of 18, BUN 16, creatinine 1.1, glucose 219. AST 35, ALT 23. White blood cell count 18.3, hemoglobin 13.9, hematocrit 42.0, and platelet count 125 with 47% neutrophils, 43% bands. ASSESSMENT: 1. Profound hypotension at the time of admission. Given the bandemia, this may very well be sepsis syndrome. I am somewhat suspicious of addisonian crisis as his cortisol level was inappropriately low for someone who is taking steroids. I think his quick response to hydrocortisone indicates that hypotension is probably addisonian in origin. 2. Adult Still disease. 3. History of hypertension. 4. History of hyperlipidemia. 5. Diabetes mellitus type 2. 6. Methicillin-resistant Staphylococcus aureus bacteremia in the past. PLAN: 1. Transfer to the floor. 2. Continue stress dose steroids. 3. Continue IV antibiotics and consolidate based on culture results. Job ID: [id number]
--- NOTE | 2019-03-31 11:26 | CON ---
DATE OF CONSULTATION: 03/31/2019 REASON FOR CONSULTATION: Fever of unknown origin, need for possible JOSEPH. HISTORY OF PRESENT ILLNESS: Mr. Knight is a very pleasant 58-year-old gentleman, who comes to the hospital for being found down. He presented via EMS. He was found down, does not recall even coming into the hospital. When he came in, he had a fever of 103 and was hypotensive. He responded well to fluids, antibiotics, and steroids. He had been on Levophed up until 11:00 p.m. last night. Currently, it is 10:00 a.m. in the morning. He has no obvious source of infection and has not had a fever since yesterday. He has a history of Still disease and is chronically on steroids and has been in the hospital before for adrenal crisis for not being on the steroids. He tells me that the only medicine he thinks he has not been taking is Kineret, which is Anakinra, which is disease modifying antirheumatic drug and he has not had it for about a week. Currently, he feels much better. He denies any chest pain, tightness, pressure. No shortness of breath. He had a loose stool, but really no diarrhea. He would describe more like toothpaste consistency yesterday evening. PAST MEDICAL HISTORY: 1. Rheumatoid arthritis on chronic steroid therapy. 2. History of DVT. 3. Type 2 diabetes. 4. Hyperlipidemia. 5. Hypertension. 6. Pneumonia. 7. Still disease. PAST SURGICAL HISTORY: 1. Cholecystectomy. 2. Shoulder repair. 3. Left knee repair. 4. Cervical spine surgery. OUTPATIENT MEDICATIONS: 1. Lipitor 40 mg q.a.m. 2. Kineret 100 mg subcu q.p.m. 3. Zetia 10 mg every morning. 4. Famotidine. 5. Folic acid. 6. Lantus. 7. Multivitamins. 8. Xarelto 10 mg q.a.m. 9. Tamsulosin. 10. Prednisone 10 mg q.a.m. 11. Tylenol extra-strength. FAMILY HISTORY: Mother with heart disease. SOCIAL HISTORY: No alcohol, tobacco, or drugs. REVIEW OF SYSTEMS: A 12-point review of systems was done and was all negative unless stated in history of present illness. ALLERGIES: VANCOMYCIN. PHYSICAL EXAMINATION: VITAL SIGNS: Temperature has been 98.8, but it was as high as 103 before; heart rate of 95; blood pressure 116/75; respiratory rate 24; saturating 100% on room air. GENERAL: Awake, alert, oriented x3. No distress. HEENT: Normocephalic and atraumatic. NECK: Supple. LUNGS: Clear. CARDIOVASCULAR: S1 and S2. No S3 or S4. No murmurs. ABDOMEN: Soft. Positive bowel sounds. EXTREMITIES: No edema. SKIN: Warm and dry. LABORATORY DATA: Laboratory work was reviewed. White count of 4.4, hemoglobin 14, hematocrit 43, platelet count of 125. His white count was presently low to have been on steroids as an outpatient and it is appropriately high now at 18.3 after steroids were given. Chemistries were reviewed. Procalcitonin was 29 and cortisol level was 7.6 which is within limits. UA was normal. Toxicology was unremarkable. C. diff and stool were negative. Influenza A and B are both negative. Blood cultures have been negative so far. ASSESSMENT AND PLAN: 1. Fever of unknown origin. 2. Still disease. 3. Hypertension. 4. Possible adrenal crisis. PLAN: 1. At this point, my suspicion is that he had an adrenal crisis related to not being on his medications. However, he denies not missing any of his steroids. At this point in time, his temperature was so high and steroids may be masking any further fevers. So I will go ahead and agree with plans on doing transesophageal echo. This will happen on Tuesday. 2. I spoke with Mr. Knight about this at length and he agrees to proceed. Further recommendations per results of transesophageal echo. Job ID: [id number]
[2019-03-31 13:42] LABS: Anisocytosis SLIGHT = 6-15 cells (100X) (0-5/hpf); Band 45 % (5-11); Hemoglobin 14.7 g/dL (14.0-18.0); Lymphocytes 1 % (21-51); MDiff Complete? YES; Mean Corpuscular HGB CONC 32.5 g/dL (32.0-36.0); Mean Corpuscular Hemoglobin 30.1 pg (27.0-31.0); Mean Corpuscular Volume 92.8 fL (78.0-98.0); Mean Platelet Volume 8.4 fL (7.4-10.4); Monocytes 3 % (0-10); Neutrophil 51 % (42-75); Platelet Count 121 thou/uL (130-400); Platelet Morphology Comment Appears Decreased; Poikilocytosis SLIGHT = 6-15 cells (100X) (0-5/hpf); RBC Distribution Width 16.9 % (11.5-14.5); White Blood Cell (WBC) Count 22.7 thou/uL (4.8-10.8)
[2019-03-31] MEDS: Insulin Glargine 10 UNITS in Pre-Filled Syringe 1 EACH SC SCH (20:11)
[2019-03-31] MEDS ORDERED: ANAKINRA 100 MG SCH (21:00)
[2019-03-31] MEDS ORDERED: ANAKINRA 100 MG SQ SCH (21:00)
[2019-04-01] MEDS: Cefepime 2 GM in Sodium Chloride 0.9% 100 ML IVPB SCH ×2 (00:06→12:34)
[2019-04-01] MEDS: Hydrocortisone Sod Succ/PF 100 mg/2 ml Vial IVP SCH ×2 (00:06→05:58)
[2019-04-01] MEDS: Lactated Ringer's 1,000 ML IV SCH (03:52)
[2019-04-01] MEDS: Clindamycin/D5W 300 MG/50 ML BAG IVPB SCH ×4 (03:52→20:43)
[2019-04-01] MEDS: Rivaroxaban 10 MG TAB PO SCH (05:58)
[2019-04-01 06:25] LABS: Band 22 % (5-11); Elliptocytes SLIGHT = 2-5 cells (100X) (0-1/hpf); Hemoglobin 12.3 g/dL (14.0-18.0); Lymphocytes 8 % (21-51); MDiff Complete? YES; Mean Corpuscular HGB CONC 32.8 g/dL (32.0-36.0); Mean Corpuscular Hemoglobin 30.5 pg (27.0-31.0); Mean Corpuscular Volume 93.1 fL (78.0-98.0); Mean Platelet Volume 8.9 fL (7.4-10.4); Metamyelocyte 3 % (0-0); Monocytes 4 % (0-10); Neutrophil 63 % (42-75); Platelet Count 123 thou/uL (130-400); Platelet Morphology Comment Appears Decreased; RBC Distribution Width 16.8 % (11.5-14.5); Red Blood Cell (RBC) Count 4.02 mill/uL (4.70-6.10); White Blood Cell (WBC) Count 16.3 thou/uL (4.8-10.8)
[2019-04-01 06:34] LABS: ALT (SGPT) 25 U/L (8-55); AST (SGOT) 29 U/L (5-34); Alkaline Phosphatase 53 U/L (40-150); Anion Gap 11 mmol/L (10-20); BUN (Urea Nitrogen) 16 mg/dL (8.4-25.7); Bilirubin, Total 0.4 mg/dL (0.2-1.2); Calc. Creatinine Clearance 125 mL/min (70-130); Calcium 8.8 mg/dL (7.8-10.44); Carbon Dioxide 20 mmol/L (22-29); Chloride 112 mmol/L (98-107); Estimated GFR-MDRD Greater than 90; Globulin 2.7 g/dL (2.4-3.5); Glucose 133 mg/dL (70-105); Potassium 3.6 mmol/L (3.5-5.1); Protein, Total 5.7 g/dL (6.0-8.3); Sodium 139 mmol/L (136-145)
--- NOTE | 2019-04-01 06:49 | PDOC.FM ---
- Subjective Subjective: pt resting comfortably in bed, reports mild sore throat but no fever/chills/ abdominal pain. - Objective Vital Signs & Weight: Vital Signs (12 hours) Temp Pulse Resp BP BP Pulse Ox 04/01/19 04:00 98.6 F 97 20 119/76 96 04/01/19 00:00 98.3 F 99 20 115/74 97 03/31/19 20:00 97.9 F 99 20 137/80 97 Weight Admit Weight 89.9 kg Weight 90.764 kg Most Recent Monitor Data Heart Rate from ECG 101 NIBP 116/75 NIBP BP-Mean 88 Respiration from ECG 22 SpO2 100 I&O: 03/30/19 03/31/19 04/01/19 06:59 06:59 06:59 Intake Total 3229 2248 Output Total 2875 975 Balance 354 1273 Result Diagrams: 04/01/19 05:29 04/01/19 05:29 Phys Exam - Physical Examination Constitutional: NAD HEENT: moist MMs Neck: no JVD Respiratory: clear to auscultation bilateral Cardiovascular: RRR, no significant murmur Gastrointestinal: soft, non-tender Musculoskeletal: pulses present Neurological: moves all 4 limbs Psychiatric: normal affect Skin: no rash Dx/Plan (1) Septic shock Code(s): A41.9 - SEPSIS, UNSPECIFIED ORGANISM; R65.21 - SEVERE SEPSIS WITH SEPTIC SHOCK Status: Acute (2) 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 DISEASE Status: Chronic (3) Chronic anticoagulation Code(s): Z79.01 - CEREAL MAKER (CURRENT) USE OF ANTICOAGULANTS Status: Chronic (4) DVT (deep venous thrombosis) Code(s): I82.409 - ACUTE EMBOLISM AND THOMBOS UNSP DEEP VN UNSP LOWER EXTREMITY Status: Chronic (5) Diabetes type 2, controlled Code(s): E11.9 - TYPE 2 DIABETES MELLITUS WITHOUT COMPLICATIONS Status: Chronic - Plan Plan: Septic Shock, resolved - low wbc, fever, tachycardia POA, no presently identified source - UA clean, UCx and cxr wnl - BCx reveals 1/2 gram+ cocci, will await speciation and sensitivities - Allergy to vanc, will continue Levoquin, Clinda, and cefepime - Cards, Dr. Rosa, consulted, plans for JOSEPH 04/02 - Consulted ID, Dr. Nickerson, pt known, apprec recs - Consulted Pulm, Dr. Styles, known from previous admission, apprec recs 2. h/o DVT's - Will continue home Xarelto. No s/s of acute DVT/PE 3. Still's Disease - Given stress dose dexadron in ED - possibly missed some home dose steroids, will treat for addisonian crisis - solumedrol 100 q6 4. DMII - Hyperglycemic protocol. QACHS Accuchecks with mild SS. Will monitor 5. HLD - Continue home meds Diet: NPO, pending +/- JOSEPH VTE: Xarelto (home) Code: Full continue continue broad spectrum until sensitivities/organism result, most likely source at this point would be valve Addendum - Attending - Attending Attestation Date/Time: 04/01/19 4126 I personally evaluated the patient and discussed the management with Dr. Keating. I agree with the History, Examination, Assessment and Plan documented above with any addition or exceptions noted below. Patient here with initial concern for septic shock with a history of similar issues. He is doing well this morning. BP stable and afebrile since arrival. Cx pending, at least 1 blood cx growing possible staph. Cardiology has been consulted and plans for JOSEPH on Tuesday to assess for valve disease causing his recurrence. Labs pending but overall reassuring status today. Continue IVF and abx, further mgmt per results of JOSEPH and ID recs next week.
[2019-04-01] MEDS: Atorvastatin Calcium 40 MG TAB PO SCH (08:14)
[2019-04-01] MEDS: Ezetimibe 10 MG TAB PO SCH (08:14)
[2019-04-01] MEDS: Insulin Glargine 45 UNITS in Pre-Filled Syringe 1 EACH SC SCH (08:14)
[2019-04-01] MEDS: Folic Acid 1 MG TAB PO SCH (08:14)
--- NOTE | 2019-04-01 10:02 | PRG ---
DATE OF SERVICE: 04/01/2019 SUBJECTIVE: He is up in a chair, looks good, has no acute complaints. OBJECTIVE: VITAL SIGNS: Temperature 98.3, pulse 97, respirations 18, O2 saturation 97%, and blood pressure 137/72. HEENT: Unremarkable. NECK: No adenopathy, JVD, or bruits. LUNGS: Clear. CARDIAC: S1 and S2. Regular. ABDOMEN: Soft. EXTREMITIES: No edema. LABORATORY DATA: White blood cell count 16.3, hematocrit 37.4, and platelet count 123. Sodium 139, potassium 3.6, chloride 112, CO2 of 20, BUN 16, creatinine 0.8, and glucose 133. Cultures grew out micrococcus and that is probably a contaminant. ASSESSMENT: Status post profound hypotension at the time of admission, which is either related to sepsis or adrenal insufficiency. RECOMMENDATION: 1. JOSEPH is scheduled for tomorrow. 2. We can go ahead and start weaning his steroids. I will put him on prednisone 40 mg a day and this should probably wean fairly slowly. If his JOSEPH is negative and nothing comes about in terms of infection workup, then I would recommend an outpatient Endocrine evaluation to help us determine what dose of steroids he needs to be on. I am somewhat concerned that he has not been taking his prednisone at home, although he is adamant that he is. Job ID: [id number]
[2019-04-01] MEDS: predniSONE 20 MG TAB PO SCH (12:34)
[2019-04-01] MEDS: HumaLOG 300 UNITS/3 ML VIAL SC PRN ×3 (12:35→20:43)
--- NOTE | 2019-04-01 16:30 | PDOC.CTH ---
Cardiology Progress Note - Subjective No new issues, no fevers. - Objective Vital Signs Temp Pulse Resp BP BP Pulse Ox 04/01/19 15:30 98.4 F 98 16 122/77 98 04/01/19 11:00 98.4 F 92 18 122/80 91 L 04/01/19 07:32 98.2 F 97 18 137/72 97 Admit Weight 198 lb 3.129 oz Weight 200 lb 1.6 oz 03/31/19 04/01/19 04/02/19 06:59 06:59 06:59 Intake Total 3229 2248 Output Total 2875 975 Balance 354 1273 - Physical Examination General/Neuro: alert & oriented x3, NAD Neck: no JVD present Lungs: unlabored respirations Heart: RRR Abdomen: NT/ND Extremities: other: (no edema) - Labs Result Diagrams: 04/01/19 05:29 04/01/19 05:29 Troponin/CKMB Troponin I Less than 0.010 ng/mL (< 0.028) 03/30/19 13:02 - Assessment/Plan 1. Recurrent fever 2. Stills diseasee 3. Rheumatoid arthritis. PLAN: - JOSEPH tomorrow.
--- NOTE | 2019-04-01 18:03 | CON ---
DATE OF CONSULTATION: 04/01/2019 REASON FOR CONSULTATION: Fever. HISTORY OF PRESENT ILLNESS: A 58-year-old, who is known to us from multiple prior admissions, who has a history of type 2 diabetes, C-spine fusion, Adult Still disease/rheumatoid arthritis, on anakinra and prednisone. Has had other complications including bacteremia, treated for protracted period of time and was admitted with fever in January with coagulase-negative Staph bacteremia, which was not certainly true bacteremia versus contamination of the sample. All the opportunistic pathogen assays were negative at that time. He also had some pustular lesions in the upper chest and those were submitted for varicella-zoster virus PCR, which was negative. The patient this time was brought in with again another episode of fever, this developed fairly suddenly on the day of admission. The previous days, he had been feeling normally. Reportedly, missed two or three doses of his anakinra before the development of the symptoms. Basically, he did have some left hip pain, some fever up to 102.7 with BP 120/80, respiratory rate 24. The overall exam on admission was otherwise negative. Skin was warm and described as diffuse erythema, although his skin is dark and it would be hard to identify that. His initial labs with white cell count 4.4, hemoglobin 14, AND 79% neutrophils. Chemistry with sodium 137, creatinine 1.08. Liver profile normal. CK was 415. Albumin 3.5. Urinalysis was essentially normal and all the microbiology studies thus far have been negative. C difficile in stool was negative. Influenza A and B were negative as well. The patient was given cefepime; insulin; prednisone dose was increased and anakinra was prescribed, but not given yet; levofloxacin. The patient has defervesced since. He is feeling well at the bedside now. Denies any headaches. Joint stiffness as usual. No sore throat, odynophagia, or dysphagia. No more vomiting. No respiratory symptoms. No back pain. No abdominal pain. Voiding without difficulty. No neurological symptoms. MEDICAL HISTORY: Adult-Still disease/rheumatoid arthritis, type 2 diabetes, bacteremia versus contamination of the sample. PAST SURGICAL HISTORY: Cholecystectomy, left shoulder repair, neck fusion, and knee arthroscopy. SOCIAL HISTORY: Never a smoker. Lives in [place] with family members. No alcoholic beverage use. No drug use. FAMILY HISTORY: Coronary artery disease and type 2 diabetes. ALLERGIES: VANCOMYCIN. MEDICATION LIST: As above. CURRENT PHYSICAL EXAMINATION: VITAL SIGNS: Showed normal temperature after low-grade elevation on arrival, BP 150/67, pulse 62, respirations 18, and O2 saturation 95%. GENERAL: Appears in no distress, sitting by the bedside. Pleasant as usual, oriented. SKIN: Normal. There are a few papular hyperpigmented areas in the upper chest as previously noted, probably just areas of follicular plugging. No lymphadenopathy. HEENT: Ocular movements conjugate. Oral cavity normal. NECK: Somewhat stiff to all directions as usual. LUNGS: Symmetric. Clear breath sounds. HEART: S1 and S2 without murmurs. No S3. Regular rate. ABDOMEN: Soft, not distended or tender. No ascites. No bladder distention. No genital abnormality. MUSCULOSKELETAL: Diffuse joint stiffness. No edema. 1+ dorsalis pedis pulses. Cap refill normal. Moves extremities equally. Able to ambulate with a little bit of stiffness. Cognitive function appears to be intact. LABORATORY DATA: The latest labs with white cell count 16.3, hemoglobin 12.3, platelets 123,000 with 22% bands. Sodium 139, creatinine 0.83 with normal liver profile, albumin 3.0. ASSESSMENT: 1. Adult-Still disease/rheumatoid arthritis. 2. Recrudescence of inflammatory process with fever. 3. Interruption of anakinra for 2 or 3 days before admission. 4. Negative cultures. DISCUSSION: This seems to be the usual pattern that he has presented in the past. Whenever he discontinues the immunosuppressive/anti-inflammatory agent anakinra , he develops this recrudescence of his usual inflammatory process with fever. Typically, the blood cultures are negative and at this time, I would again advise resumption of anakinra and then discontinuation of antimicrobials probably tomorrow when we get an update in his blood culture results. Job ID: [id number] [facility]
[2019-04-01] MEDS: Insulin Glargine 10 UNITS in Pre-Filled Syringe 1 EACH SC SCH (20:42)
[2019-04-02] MEDS: Cefepime 2 GM in Sodium Chloride 0.9% 100 ML IVPB SCH ×2 (02:01→12:50)
[2019-04-02] MEDS: Clindamycin/D5W 300 MG/50 ML BAG IVPB SCH ×4 (05:06→23:47)
[2019-04-02] MEDS: Rivaroxaban 10 MG TAB PO SCH (05:06)
--- NOTE | 2019-04-02 06:39 | PDOC.FM ---
- Subjective Subjective: Pt has no complaints today but did endorse a new dry cough, although he feels there is congestion in his chest. He states he beginning to have joint pain. - Objective Vital Signs & Weight: Vital Signs (12 hours) Temp Pulse Resp BP Pulse Ox 04/01/19 20:00 97.9 F 91 20 123/74 97 Weight Admit Weight 89.9 kg Weight 89.902 kg Most Recent Monitor Data Heart Rate from ECG 101 NIBP 116/75 NIBP BP-Mean 88 Respiration from ECG 22 SpO2 100 I&O: 03/31/19 04/01/19 04/02/19 06:59 06:59 06:59 Intake Total 3229 2248 379 Output Total 2875 975 400 Balance 354 1273 -21 Result Diagrams: 04/02/19 06:15 04/02/19 06:15 Phys Exam - Physical Examination HEENT: PERRLA Respiratory: no wheezing, no rhonchi bibasilar crackles, dry cough Cardiovascular: RRR, no significant murmur Gastrointestinal: soft, non-tender, no distention Psychiatric: A&O x 3 Dx/Plan (1) SIRS (systemic inflammatory response syndrome) Code(s): R65.10 - SIRS OF NON-INFECTIOUS ORIGIN W/O ACUTE ORGAN DYSFUNCTION Status: Acute (2) Adrenal insufficiency Code(s): E27.40 - UNSPECIFIED ADRENOCORTICAL INSUFFICIENCY Status: Chronic (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 DISEASE Status: Chronic (4) Dyslipidemia Code(s): E78.5 - HYPERLIPIDEMIA, UNSPECIFIED Status: Chronic (5) Still's disease Code(s): M08.20 - JUVENILE RHEUMATOID ARTHRITIS WITH SYSTEMIC ONSET, UNSP SITE Status: Chronic (6) Hypotension Status: Resolved - Plan Plan: Septic Shock, resolved - low wbc, fever, tachycardia POA, no presently identified source - UA clean, UCx, and cxr wnl - BCx reveals 1/2, likely contaminant. - Discontinue Levoquin, Clinda, and cefepime - Cards, Dr. Rosa, consulted, plans for JOSEPH 04/02 - Consulted ID, Dr. Nickerson, pt known, apprec recs - recommends d/c abx with neg BCx - Consulted Pulm, Dr. Styles, known from previous admission, apprec recs 2. h/o DVT's - Xarelto held for JOSEPH, resume after procedure. No s/s of acute DVT/PE 3. Still's Disease - Restart Anakinra - Follow up/update his Rheum - possibly missed some home dose steroids, will treat for addisonian crisis - solumedrol 100 q6 --> switch to prednisone 4. DMII - Hyperglycemic protocol. QACHS Accuchecks with mild SS. Will monitor 5. HLD - Continue home meds Diet: NPO, pending +/- JOSEPH VTE: Xarelto (home) held for procedure Code: Full Blood cultures negative, JOSEPH pending but less likely valvular pathology as cultures were negative, d/c abx, convert steroid to PO prednisone. Addendum - Attending - Attending Attestation Date/Time: 04/02/19 2560 I personally evaluated the patient and discussed the management with Dr. Pope. I agree with the History, Examination, Assessment and Plan documented above with any addition or exceptions noted below. Patient here for concern for septic shock that is now resolved. He continues on broad spectrum abx. Currently growing 1/2 micrococcus. ID on board. Patient going for JOSEPH today to evaluate for heart valve vegetations. Further mgmt per that result and ID recs. He is otherwise doing well and back on chronic steroids.
[2019-04-02 06:59] LABS: Mean Corpuscular HGB CONC 31.8 g/dL (32.0-36.0); Mean Corpuscular Hemoglobin 29.3 pg (27.0-31.0); Mean Corpuscular Volume 92.3 fL (78.0-98.0); Platelet Count 132 thou/uL (130-400); RBC Distribution Width 16.7 % (11.5-14.5); Red Blood Cell (RBC) Count 4.43 mill/uL (4.70-6.10); White Blood Cell (WBC) Count 13.5 thou/uL (4.8-10.8)
[2019-04-02 07:27] LABS: ALT (SGPT) 22 U/L (8-55); AST (SGOT) 19 U/L (5-34); Alkaline Phosphatase 58 U/L (40-150); Anion Gap 11 mmol/L (10-20); BUN (Urea Nitrogen) 20 mg/dL (8.4-25.7); Bilirubin, Total 0.4 mg/dL (0.2-1.2); Calc. Creatinine Clearance 104 mL/min (70-130); Carbon Dioxide 23 mmol/L (22-29); Chloride 111 mmol/L (98-107); Estimated GFR-MDRD Greater than 90; Globulin 2.9 g/dL (2.4-3.5); Glucose 135 mg/dL (70-105); Potassium 3.5 mmol/L (3.5-5.1); Protein, Total 5.9 g/dL (6.0-8.3); Sodium 141 mmol/L (136-145)
[2019-04-02 07:39] LABS: Band 18 % (5-11); Eosinophils 1 % (0-10); Lymphocytes 10 % (21-51); MDiff Complete? YES; Monocytes 1 % (0-10); Neutrophil 70 % (42-75); RBC Morphology Normal
[2019-04-02] MEDS: Acetaminophen 325 MG TAB PO PRN ×3 (08:05→21:16)
[2019-04-02] MEDS: Insulin Glargine 45 UNITS in Pre-Filled Syringe 1 EACH SC SCH (08:10)
[2019-04-02] MEDS: Ezetimibe 10 MG TAB PO SCH (08:10)
[2019-04-02] MEDS: Folic Acid 1 MG TAB PO SCH (08:10)
[2019-04-02] MEDS: Atorvastatin Calcium 40 MG TAB PO SCH (08:11)
--- NOTE | 2019-04-02 10:02 | PRG ---
DATE OF SERVICE: 04/02/2019 SUBJECTIVE: Doing well. No complaints today. OBJECTIVE: VITAL SIGNS: Temperature 97.9, pulse 86, respirations 18, O2 saturation 96%, and blood pressure 117/77. HEENT: Unremarkable. NECK: No adenopathy or JVD. CHEST: Clear. CARDIAC: S1 and S2, regular. ABDOMEN: Soft. EXTREMITIES: No edema. LABORATORY DATA: White blood cell count 13.5, hematocrit 40, and platelet count 132. Sodium 141, potassium 3.5, BUN 20, creatinine 0.9, and glucose 135. Cultures show no additional growth. ASSESSMENT: 1. Still disease. 2. Hypotension and fever at the time of admission, which has since resolved. PLAN: From my standpoint, he can go home. Nothing further to offer from Pulmonary standpoint. We will sign off. Job ID: [id number]
[2019-04-02] MEDS ORDERED: Dextrose 5% in Water 1,000 ML IV SCH (11:45)
[2019-04-02] MEDS: predniSONE 20 MG TAB PO SCH (11:51)
[2019-04-02] MEDS ORDERED: PROPOFOL 20 ML ONE (15:41)
[2019-04-02] MEDS ORDERED: Benzocaine 20% Spray 60 ML CAN ONE (15:58)
[2019-04-02] MEDS: Insulin Glargine 10 UNITS in Pre-Filled Syringe 1 EACH SC SCH (21:18)
[2019-04-03] MEDS: Lactated Ringer's 1,000 ML IV SCH ×2 (00:45→09:46)
[2019-04-03] MEDS: Cefepime 2 GM in Sodium Chloride 0.9% 100 ML IVPB SCH (00:47)
[2019-04-03] MEDS: Clindamycin/D5W 300 MG/50 ML BAG IVPB SCH (03:51)
[2019-04-03] MEDS ORDERED: Rivaroxaban 10 MG TAB ONE (05:29)
[2019-04-03] MEDS: Rivaroxaban 10 MG TAB PO SCH (05:54)
[2019-04-03 06:33] LABS: Hemoglobin 12.8 g/dL (14.0-18.0); Mean Corpuscular HGB CONC 32.6 g/dL (32.0-36.0); Mean Corpuscular Hemoglobin 30.6 pg (27.0-31.0); Mean Corpuscular Volume 94.1 fL (78.0-98.0); Mean Platelet Volume 8.8 fL (7.4-10.4); Platelet Count 127 thou/uL (130-400); RBC Distribution Width 16.9 % (11.5-14.5); Red Blood Cell (RBC) Count 4.17 mill/uL (4.70-6.10); White Blood Cell (WBC) Count 11.7 thou/uL (4.8-10.8)
[2019-04-03 06:52] LABS: Band 4 % (5-11); Hypochromia SLIGHT = 6-15 cells (100X) (0-5/hpf); Lymphocytes 15 % (21-51); MDiff Complete? YES; Monocytes 8 % (0-10); Neutrophil 73 % (42-75); Nucleated RBC 1 % (0); Platelet Morphology Comment Appears Adequate
[2019-04-03 06:56] LABS: ALT (SGPT) 12 U/L (8-55); AST (SGOT) 19 U/L (5-34); Albumin 2.7 g/dL (3.5-5.0); Alkaline Phosphatase 61 U/L (40-150); Anion Gap 13 mmol/L (10-20); BUN (Urea Nitrogen) 15 mg/dL (8.4-25.7); Bilirubin, Total 0.4 mg/dL (0.2-1.2); Calc. Creatinine Clearance 95 mL/min (70-130); Calcium 8.5 mg/dL (7.8-10.44); Carbon Dioxide 19 mmol/L (22-29); Chloride 109 mmol/L (98-107); Estimated GFR-MDRD 86; Globulin 2.7 g/dL (2.4-3.5); Glucose 116 mg/dL (70-105); Potassium 3.1 mmol/L (3.5-5.1); Protein, Total 5.4 g/dL (6.0-8.3); Sodium 138 mmol/L (136-145)
--- NOTE | 2019-04-03 06:57 | PDOC.FM ---
- Subjective Subjective: Mr. Knight states he felt unwell through the evening. He had low blood sugars and became hypotensive. - Objective Vital Signs & Weight: Vital Signs (12 hours) Temp Pulse Resp BP BP BP Pulse Ox 04/03/19 05:58 103 H 26 H 105/75 100 04/03/19 04:00 100 04/03/19 03:54 98.9 F 110 H 28 H 90/58 L 100 04/03/19 03:20 98.8 F 124 H 34 H 106/66 100 04/02/19 23:55 100.2 F H 118 H 22 H 111/73 97 04/02/19 23:35 100.0 F H 111 H 20 104/62 92 L 04/02/19 20:00 92 L 04/02/19 19:28 99.9 F H 98 20 108/72 92 L Weight Admit Weight 89.9 kg Weight 89.358 kg Most Recent Monitor Data Heart Rate from ECG 101 NIBP 116/75 NIBP BP-Mean 88 Respiration from ECG 22 SpO2 100 I&O: 04/01/19 04/02/19 04/03/19 06:59 06:59 06:59 Intake Total 2248 379 2520 Output Total 975 400 Balance 1273 -21 2520 Result Diagrams: 04/03/19 06:20 04/03/19 06:20 Phys Exam - Physical Examination Constitutional: NAD HEENT: PERRLA, moist MMs Neck: no nodes, no JVD Respiratory: no wheezing, no rhonchi Bibasilar crackles w/ oxygen saturation at 97% on room air Cardiovascular: RRR, no significant murmur Gastrointestinal: soft, non-tender, no distention Musculoskeletal: no edema, pulses present Psychiatric: normal affect, A&O x 3 Skin: normal turgor, cap refill <2 seconds Dx/Plan (1) SIRS (systemic inflammatory response syndrome) Code(s): R65.10 - SIRS OF NON-INFECTIOUS ORIGIN W/O ACUTE ORGAN DYSFUNCTION Status: Acute (2) Adrenal insufficiency Code(s): E27.40 - UNSPECIFIED ADRENOCORTICAL INSUFFICIENCY Status: Chronic (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 DISEASE Status: Chronic (4) Dyslipidemia Code(s): E78.5 - HYPERLIPIDEMIA, UNSPECIFIED Status: Chronic (5) Still's disease Code(s): M08.20 - JUVENILE RHEUMATOID ARTHRITIS WITH SYSTEMIC ONSET, [facility] SITE Status: Chronic (6) Hypoglycemia Code(s): E16.2 - HYPOGLYCEMIA, UNSPECIFIED Status: Acute - Plan Plan: # Adrenal Insufficiency and Medication Misusage more likely than SIRS w/o identifiable source - resolved Pt presented meeting SIRS criteria with vitals, hypotension, leukopenia. No source of infection was found and pt was restarted on steroids with resolution of blood pressures. He had instances in the past similar to this episode where pt stopped taking medications. Pt was not taking anakinra bc he was out of medication although this could be reason for leukopenia. Transitioned pt to oral prednisone 40 mg daily, an increase from his home dose as this was not properly maintaining pt's blood pressures, likely adrenal insufficiency with chronic steroid use. Overnight pt became hypotensive, ordered prednisone this am as he missed 812 dose due to NPO. Oxygen sat 98% room air. - UA clean, UCx, and cxr wnl - BCx reveals 1/2, likely contaminant. - Discontinue Levoquin, Clinda, and cefepime - Cards, Dr. Rosa, consulted, plans for JOSEPH 04/02 - Consulted ID, Dr. Nickerson, pt known, apprec recs - recommends d/c abx with neg BCx - Consulted Pulm, Dr. Styles, known from previous admission, apprec recs # h/o DVT's - Resume after procedure. No s/s of acute DVT/PE # Hypoglycemia 8 BG 53 after JOSEPH, pt was asymptomatic and by the early evening BG was WNL - recheck this morning, if stable pt will be fine for discharge # Still's Disease - Restart Anakinra, increase home prednisone to 40 mg PO daily - possibly missed some home dose steroids, will treat for Addisonian crisis Overnight pt had low BP's but missed dose of prednisone yesterday due to NPO, ordered prednisone for am # DMII - Hyperglycemic protocol. QACHS Accuchecks with mild SS. Will monitor # HLD - Continue home meds Diet: NPO, pending +/- JOSEPH VTE: Xarelto (home) held for procedure Code: Full Dispo: Pt symptoms likely secondary to adrenal insufficiency and pt not taking anakinra, less likely sepsis as no source. Pt will be discharged with repeat corrected BG and blood pressures Addendum - Attending - Attending Attestation Date/Time: 04/03/19 4153 I personally evaluated the patient and discussed the management with Dr. Pope. I agree with the History, Examination, Assessment and Plan documented above with any addition or exceptions noted below. Patient overall feeling better today. He was feeling poorly last night likely because he did not get his steroid dose due to the JOSEPH he underwent. He is somewhat better today. We will monitor through the morning and if feeling well later, likely discharge home.
[2019-04-03] MEDS ORDERED: predniSONE 20 MG TAB PO SCH (08:00)
[2019-04-03] MEDS: Acetaminophen 325 MG TAB PO PRN (08:18)
[2019-04-03] MEDS: Atorvastatin Calcium 40 MG TAB PO SCH (08:19)
[2019-04-03] MEDS: Folic Acid 1 MG TAB PO SCH (08:19)
[2019-04-03] MEDS: Ezetimibe 10 MG TAB PO SCH (08:19)
[2019-04-03] MEDS ORDERED: Sulfameth/Trimethoprim DS 800-160mg TAB PO SCH (09:00)
[2019-04-03] MEDS ORDERED: Potassium Chloride 20 MEQ TAB PO SCH (09:30)
[2019-04-03] MEDS: Insulin Glargine 45 UNITS in Pre-Filled Syringe 1 EACH SC SCH (09:37)
--- NOTE | 2019-04-03 10:23 | ECHO ---
DATE OF SERVICE: 04/02/19 Transesophageal echo was performed to evaluate for possible vegetation. The Anesthesiology department provided with sedation for the patient. Please see their notes for det ails. After adequate sedation was achieved, transesophageal probe was inserted into the mouth and into the esophagus. Multiplanar views were obtained. Left ventricle is normal size. Estimated EF at 50-55%. Left atrium is mildly dilated. Right atrium is normal size. The right ventricle is normal size with normal systolic function. The aortic root is normal size. Aortic valve has three cusps. No stenosis or regurgitation. Mildly sclerotic. No vegetations. Mitral valve is structurally normal. There is mild MR. No stenosis. No vegetations. Tricuspid valve is structurally normal. There is mild TR. No stenosis. No vegetations. Pulmonary valve is structurally normal. There is moderate PI. No stenosis. No vegetations. Thoracic aorta is without aneurysmal dilatation with grade II atherosclerotic disease. CONCLUSIONS: 1. Normal LV systolic function, EF at 50-55%. 2. Left atrial enlargement. 3. Aortic valve sclerosis. 4. Mild MR. 5. Mild TR. 6. Mild PI. 7. No evidence of vegetations.
--- NOTE | 2019-04-03 11:16 | DIS ---
DATE OF ADMISSION: 03/30/2019 DATE OF DISCHARGE: 04/03/2019 RESIDENT: Jensen Pope DO. ADMITTING ATTENDING: Dr. Ashley Wolfe. DISCHARGE ATTENDING: Dr. Paul Hall. CONSULTS: 1. Cardiology Dr. Aditya Rosa. 2. Infectious Disease, Dr. Rehan Nickerson. 3. Dr. Jonel Styles, Pulmonology. PROCEDURES: 1. Chest x-ray on 03/30/2019, no evidence of acute pulmonary disease. 2. CT chest, abdomen, and pelvis on 03/30/2019, revealed no findings to suggest a source for the patient's sepsis, moderate bilateral gynecomastia. 3. JOSEPH revealed no endocarditis. PRIMARY DIAGNOSES: 1. Systemic inflammatory response syndrome without source. 2. Still disease. SECONDARY DIAGNOSES: 1. History of deep venous thrombosis. 2. Type 2 diabetes. 3. Hyperlipidemia. DISCHARGE MEDICATIONS: 1. Atorvastatin 40 mg p.o. q.a.m. 2. Anakinra 100 mg subcu q.p.m. 3. Zetia 10 mg p.o. q.a.m. 4. Pepcid 20 mg p.o. daily. 5. Folic acid 1 mg p.o. daily. 6. Lantus 45 units SC q.a.m. 7. Lantus 10 units SC at bedtime. 8. Multivitamin with minerals. 9. Prednisone 40 mg p.o. daily. 10. Tylenol 500 mg p.o. q.4 hours p.r.n. 11. Flomax 0.4 mg p.o. q.a.m. 12. Xarelto 20 mg p.o. q.a.m. 13. Bactrim 1 tab PO BID Discontinued medications, prednisone 20 mg p.o. q.a.m. HISTORY OF PRESENT ILLNESS AND HOSPITAL COURSE: Stephani Knight is a 58-year-old male, who presented with signs of septic shock after being found down. His blood pressures were 65/47, heart rate 133, respirations 12, T-max 102.7, saturating well at 100% on 2 L. He was resuscitated at this time with 5 L of fluid in the emergency department and started on Levophed 30 to produce a MAP of 65. He protected his airway during this time. Cultures were worked up, and his urine culture and blood culture were clean. He had no source of infection, but met the SIRS criteria. He was admitted at this time. ID, Dr. Nickerson was consulted. Dr. Styles with Pulmonology was consulted. Dr. Rosa with Cardiology was consulted for possible endocarditis, and the patient was to undergo JOSEPH. He was started on Levaquin, clinda, and cefepime for his SIRS without an identifiable source and was in the ICU. White blood cell count initially on admission was 4.4, but the patient had not been taking Anakinra, which he had previously been on for the Still disease, he was also on prednisone. The patient was supposed to be taking Anakinra and prednisone 10 mg daily, but he had not been taking the Anakinra secondary to being out of the medication for about a week. He had a similar episode to this in the last 6 months when he stopped taking the medication and came in with a sepsis picture without an identifiable source. Dr. Nickerson, who knew the patient previously, suspected this and with all his cultures coming back negative, Dr. Nickerson advised to take the patient off the antibiotics. Dr. Rosa performed a JOSEPH, which was within normal limits showing no endocarditis per the supporting suspicion that the patient's septic shock picture was secondary to discontinuation of medication versus an infectious picture. To help maintain his blood pressures, he was started on Solu-Medrol, and on day of admission, he was given prednisone 40 mg to be taken daily. This was continued for him outpatient and increased from his prednisone 10, which can be titrated by the primary care physician as an outpatient. Discussed with patient the need to continue taking his medication daily to prevent this from happening again. He understood this. Of note, once he was restarted on steroids, his pressures held. He was able to be released from the ICU to the floor. He did have one blood culture come back positive for micrococcus species, which was likely a contaminant of natural bacteremia. On 04/02/19 pt remained hypotensive and hypoglycemic with symptoms of feeling unwell. Prednisone was held on day of JOSEPH due to NPO. Restarted prednisone on 04/03 and his blood pressures were >100 systolic. Blood sugars improved with diet. With the normalization of blood pressure and glucose patient was fine for discharge on 04/03/19. Discharged with bactrim as procalcitonin was elevated and decreased with abx treatment appropriately even though no source was found. DISPOSITION: Stable. DISCHARGE INSTRUCTIONS: 1. Location: [facility]. 2. Diet: Heart healthy. 3. Activity: Ad reji. 4. Followup: Dr. rBandt Zacarias within a week to 10 days. Job ID: [id number] [facility]TD[facility]
[2019-04-03] MEDS: HumaLOG 300 UNITS/3 ML VIAL SC PRN ×2 (11:58→17:18)
[2019-04-03 17:18] VITALS: BP 112/78; TEMP 98.2
--- NOTE | 2019-04-07 10:08 | EKG ---
Test Reason : NEAL.HWS Blood Pressure : / mmHG Vent. Rate : 132 BPM Atrial Rate : 132 BPM P-R Int : 146 ms QRS Dur : 088 ms QT Int : 296 ms P-R-T Axes : 060 026 -12 degrees QTc Int : 438 ms Sinus tachycardia Abnormal ECG Confirmed by NAINA COMER, TIAN ([id number]), online editor SHARYN ARVIZU ([id number]) on 04/07/2019 10:08:36 AM Referred By: Confirmed By:TIAN CHEW MD
== END 2019-04-03 19:03 | disposition home or self-care (01) | DRG 871 ==
LOC: ERS 12:34 → CCU 17:50 → T4-B 03-31 10:52
PROVIDERS: ADMIT Family Medicine; ATTEND Family Medicine
DX: A41.9 Sepsis, unspecified organism (principal); R65.21 Severe sepsis with septic shock; E27.40 Unspecified adrenocortical insufficiency; M06.1 Adult-onset Still's disease; I10 Essential (primary) hypertension; E78.5 Hyperlipidemia, unspecified; E11.649 Type 2 diabetes mellitus with hypoglycemia without coma; M06.9 Rheumatoid arthritis, unspecified; I95.9 Hypotension, unspecified; Z86.718 Personal history of other venous thrombosis and embolism; Z90.49 Acquired absence of other specified parts of digestive tract; Z98.1 Arthrodesis status; Z88.1 Allergy status to other antibiotic agents; Z88.0 Allergy status to penicillin; Z79.02 Long term (current) use of antithrombotics/antiplatelets; Z87.01 Personal history of pneumonia (recurrent); Z86.14 Personal history of Methicillin resistant Staphylococcus aureus infection
CPT/HCPCS: 36415; 36416; 36556; 51701; 71045; 71260; 74177; 80053; 80306; 80307; 81003; 82010; 82533; 82550; 83605; 83690; 83880; 84145; 84443; 84484; 85007; 85025; 85027; 85060; 85652; 87040; 87086; 87149; 87324; 87449; 87804; 93005; 93312; 96365; 96366; 96367; 96375; J0692; J1100; J1265; J1720; J1815; J1956; J2405; J2704; J3480; J3490; J7070; J7512; Q9967

== ENCOUNTER 2019-05-29 21:36 | Observation (INO) | payer MEDICARE ==
--- NOTE | 2019-05-29 22:19 | CT ---
CT Brain WO Con History: Syncope Comparison: CT brain February 02, 2019 Findings: No acute hemorrhage or infarct. No midline shift or mass effect. Ventricular size and extra -axial CSF spaces are normal. Calvarium is intact. Mild mucosal thickening of the ethmoids. Mastoids are clear. Globes are intact. Impression: No acute intracranial abnormality.
[2019-05-29 22:21] LABS: #Lymphocytes 2.7 thou/uL (1.20-3.40); #Monocytes 0.6 thou/uL (0.11-0.59); #Neutrophils 3.7 thou/uL (1.40-6.50); %Basophils 0.3 % (0.0-1.0); %Eosinophils 0.2 % (0.0-10.0); %Lymphocytes 38.6 % (21.0-51.0); %Monocytes 8.5 % (0.0-10.0); %Neutrophils 52.3 % (42.0-75.0); Hemoglobin 13.7 g/dL (14.0-18.0); Mean Corpuscular HGB CONC 33.6 g/dL (32.0-36.0); Mean Corpuscular Hemoglobin 31.3 pg (27.0-31.0); Mean Corpuscular Volume 93.1 fL (78.0-98.0); Mean Platelet Volume 8.1 fL (7.4-10.4); Platelet Count 120 thou/uL (130-400); RBC Distribution Width 15.2 % (11.5-14.5); Red Blood Cell (RBC) Count 4.36 mill/uL (4.70-6.10); White Blood Cell (WBC) Count 7.1 thou/uL (4.8-10.8)
[2019-05-29 22:43] LABS: ALT (SGPT) 32 U/L (8-55); AST (SGOT) 33 U/L (5-34); Albumin 3.5 g/dL (3.5-5.0); Alcohol 198 mg/dL (Less than 10); Alkaline Phosphatase 65 U/L (40-110); Anion Gap 21 mmol/L (10-20); BUN (Urea Nitrogen) 17 mg/dL (8.4-25.7); Bilirubin, Total 0.6 mg/dL (0.2-1.2); Calc. Creatinine Clearance 0 mL/min (70-130); Calcium 8.6 mg/dL (7.8-10.44); Carbon Dioxide 14 mmol/L (22-29); Chloride 106 mmol/L (98-107); Estimated GFR-MDRD 78; Globulin 2.7 g/dL (2.4-3.5); Glucose 218 mg/dL (70-105); Potassium 4.2 mmol/L (3.5-5.1); Protein, Total 6.2 g/dL (6.0-8.3); Sodium 137 mmol/L (136-145)
[2019-05-30 01:34] LABS: Base Excess-Venous -9.2 mmol/L (-2.0 to 3.0); Bicarbonate (HCO3v) 16.5 mmol/L (22.0-28.0); CO2 Tension (PvCO2) 34.7 mmHg (40.0-50.0); Calcium, Ionized 0.96 mmol/L (See Comments:); Chloride 112 mmol/L (98-107); Hemoglobin - Calc 13.7 g/dL (14.0-18.0); Potassium 4.1 mmol/L (3.5-5.1); Sodium 140 mmol/L (138-145); T. Carbon Dioxide 17.6 mmol/L (22.0-28.0); vO2 Saturation-calc 98.2 % (60.0-85.0)
[2019-05-30] MEDS ORDERED: Thiamine 100 MG TAB ONE (02:04)
[2019-05-30] MEDS ORDERED: Folic Acid 1 MG TAB ONE (02:12)
[2019-05-30] MEDS ORDERED: Ondansetron PF 4 MG/2 ML Vial IVP PRN (02:36)
[2019-05-30] MEDS ORDERED: Acetaminophen 325 MG TAB PO PRN (02:36)
[2019-05-30] MEDS ORDERED: Ondansetron ODT 4 MG TAB PO PRN (02:36)
[2019-05-30] MEDS ORDERED: Acetaminophen 650 MG Suppository PR PRN (02:36)
[2019-05-30] MEDS ORDERED: HumaLOG 300 UNITS/3 ML VIAL SC PRN (02:40)
[2019-05-30] MEDS ORDERED: Dextrose 5% in Water 1,000 ML IV PRN (02:40)
[2019-05-30] MEDS ORDERED: Dextrose 50% Abboject 50 ML SYRINGE SLOW IVP PRN (02:40)
[2019-05-30 03:14] LABS: #Lymphocytes 2.2 thou/uL (1.20-3.40); #Monocytes 0.7 thou/uL (0.11-0.59); #Neutrophils 2.7 thou/uL (1.40-6.50); %Basophils 0.8 % (0.0-1.0); %Eosinophils 0.5 % (0.0-10.0); %Lymphocytes 38.8 % (21.0-51.0); %Monocytes 11.8 % (0.0-10.0); %Neutrophils 48.1 % (42.0-75.0); Hemoglobin 14.4 g/dL (14.0-18.0); Mean Corpuscular HGB CONC 33.4 g/dL (32.0-36.0); Mean Corpuscular Hemoglobin 31.8 pg (27.0-31.0); Mean Corpuscular Volume 95.1 fL (78.0-98.0); Mean Platelet Volume 7.9 fL (7.4-10.4); Platelet Count 129 thou/uL (130-400); RBC Distribution Width 15.4 % (11.5-14.5); Red Blood Cell (RBC) Count 4.52 mill/uL (4.70-6.10); White Blood Cell (WBC) Count 5.6 thou/uL (4.8-10.8)
[2019-05-30] MEDS: Lactated Ringer's 1,000 ML IV SCH ×3 (03:17→09:51)
[2019-05-30 03:21] VITALS: BMI 29.0
[2019-05-30 03:37] LABS: Anion Gap 17 mmol/L (10-20); BUN (Urea Nitrogen) 14 mg/dL (8.4-25.7); Calc. Creatinine Clearance 90 mL/min (70-130); Calcium 8.7 mg/dL (7.8-10.44); Carbon Dioxide 20 mmol/L (22-29); Chloride 108 mmol/L (98-107); Estimated GFR-MDRD 88; Glucose 140 mg/dL (70-105); Sodium 141 mmol/L (136-145)
[2019-05-30 03:47] LABS: Lactic Acid 4.7 mmol/L (0.5-2.2)
[2019-05-30] MEDS ORDERED: Acetaminophen 500 MG TAB PO PRN (05:44)
[2019-05-30] MEDS ORDERED: traMADol HCl 50 MG TAB PO PRN (05:44)
--- NOTE | 2019-05-30 06:50 | HP ---
CODE STATUS: Full code. TIME OF EVALUATION: 2:00 a.m. CHIEF COMPLAINT: Syncope. HISTORY OF PRESENT ILLNESS: This is a 59-year-old male patient with past medical history of hyperlipidemia, arthritis, diabetes type 2, hypertension, came to the hospital after being found passing out or sleeping in a [employer] drive-thru. The EMS was called. The patient reported that he remembered when he woke up and that he remembered he was back to normal. The patient had been drinking two beers and two shots of liquor tonight. No other significant findings were seen. In the labs, they found that the patient has high anion gap metabolic acidosis with ketosis and for that reason, we are keeping the patient for observation. This could be related to alcohol intoxication since the alcohol level was 200 and there is no other significant reason to explain . REVIEW OF SYSTEMS: CONSTITUTIONAL: No fever, chills, or generalized weakness. RESPIRATORY: No cough, sputum production, or shortness of breath. CARDIOVASCULAR: No chest pain or palpitation. GASTROINTESTINAL: No nausea, vomiting, diarrhea, or abdominal pain. SENIOR COPYWRITER: No dizziness, headache, or feeling lightheaded. GENITOURINARY: No burning on urination. EXTREMITIES: No leg swelling. All other systems were reviewed and negative except for the findings mentioned above. PAST MEDICAL HISTORY: As mentioned in the HPI. FAMILY HISTORY: Reviewed, noncontributory for current presentation. PAST SURGICAL HISTORY: Cholecystectomy, orthopedic surgery, left shoulder and left knee surgery, cervical spine fusion, and right shoulder. PSYCHIATRIC HISTORY: No history of suicidal ideation. No previous psych admissions. SOCIAL HISTORY: The patient drinks socially every week. No drugs. No smoking history. Lives at home with family. KNOWN ALLERGIES: To vancomycin. REPORTED MEDICATIONS: 1. Januvia. 2. Atorvastatin. 3. Kineret. 4. Prednisone. 5. Xarelto. 6. Vitamin D3. 7. Tramadol. 8. Zetia. PHYSICAL EXAMINATION: VITAL SIGNS: On presentation, blood pressure 136/79 with heart rate of 100, respiratory rate was 16, temperature 98, pain was 0/10, oxygen saturation was 99 % on room air. GENERAL APPEARANCE: The patient is alert, oriented, in no acute distress. HEENT: Eyes, normal conjunctivae. Moist oral mucosa. Anicteric. No JVD. RESPIRATORY: Bilateral air entry. No rales. No wheezes. Symmetric expansion CARDIOVASCULAR: Normal rate. Regular rhythm. No murmurs. No gallop. No edema. ABDOMEN: Soft. Normal bowel sounds. MUSCULOSKELETAL: Baseline range of motion and strength. SKIN: Warm and intact. No pallor. No rash. No redness. Capillary refill seems to be intact. NEURO: No evidence of any new focal weakness. Cranial nerves seem to be intact. PSYCH: The patient is in good mood. No anxiety. Optimal judgment. DIAGNOSTIC DATA: EKG was reviewed. The patient has normal sinus rhythm with the rate within normal limits. No ventricular hypertrophy. No evidence of acute ischemic events. A brain CT was done. The patient has no acute intracranial abnormalities. LABORATORY DATA: Reviewed. The patient has a white count of 7.1, hemoglobin 13.7, hematocrit 40.6, platelet count 120. Blood gas; the VBG was done, pH was . Chemistry; sodium 137, potassium 4.2, chloride 106, carbon dioxide was 14, the second carbon dioxide was 20; anion gap 21, the second repeat one has been corrected; BUN 17, creatinine 1.16, GFR 78. Glucose 218, the repeat one was 140. Lactic acid 4.7. LFTs were negative. Plasma alcohol 198 with beta- hydroxybutyrate of 0.30. ASSESSMENT AND PLAN: The patient will be placed in the hospital with following medical problems. 1. Alcohol intoxication. The patient has alcohol level of 198 and probably this was the reason why he fell asleep in the car. No other significant finding has been seen to explain the presentation. We will hydrate and we will continue to observe the patient clinically. He likely will be able to go home early in the morning. 2. Anion gap metabolic acidosis on presentation with anion gap of 21 and carbon dioxide of 14. On the repeat labs earlier this morning, carbon dioxide is normal and the anion gap is normal, thought this is likely due to anion gap metabolic acidosis secondary to alcohol intoxication and also to lactic acidosis that could be also related to the patient taking metformin. We will continue hydration since the patient is improving. We will monitor and most likely he will be able to go home later today. 3. Uncontrolled diabetes. The patient has a blood sugar of 218. We will place the patient on sliding scale. We will continue to monitor optimal control. 4. Hyperlipidemia. Low-cholesterol diet is advised. Reconcile medications. 5. Controlled hypertension. We will continue to monitor. Reconcile home medications. 6. Possible syncope. The patient says that he basically fell asleep in his car. He does not report any other significant complaints. Last echo was done in March of this year. The patient has an ejection fraction of 40 to 45 with a grade 2/[address] the patient on Lasix. 7. Deep venous thrombosis prophylaxis. Job ID: [id number] [facility]
[2019-05-30] MEDS ORDERED: Sodium Chloride 0.65% Nasal 44 ML BOT EA NARE PRN (07:45)
[2019-05-30] MEDS ORDERED: Zolpidem Tartrate 5 MG TAB PO PRN (07:45)
[2019-05-30] MEDS ORDERED: hydrALAZINE 20 MG/ML VIAL SLOW IVP PRN (07:45)
[2019-05-30] MEDS ORDERED: Loratadine 10 MG TAB PO PRN (07:45)
[2019-05-30] MEDS ORDERED: Loperamide HCl 2 MG CAP PO PRN (07:45)
[2019-05-30] MEDS ORDERED: Bisacodyl 5 MG TAB PO PRN (07:45)
[2019-05-30] MEDS ORDERED: Calcium Carbonate 500 MG ChewTAB PO PRN (07:45)
[2019-05-30] MEDS ORDERED: Senokot S 8.6-50 MG TAB PO PRN (07:45)
[2019-05-30] MEDS ORDERED: Diabetic Tussin 200 MG/10 ML UDCUP PO PRN (07:45)
[2019-05-30] MEDS ORDERED: Cepastat Lozenges 1 LOZ PO PRN (07:45)
[2019-05-30] MEDS ORDERED: Artificial Tears 18 DROP/0.9 ML EA EYE PRN (07:45)
[2019-05-30] MEDS ORDERED: predniSONE 20 MG TAB PO SCH (08:00)
[2019-05-30] MEDS ORDERED: Rivaroxaban 10 MG TAB PO SCH (08:00)
[2019-05-30] MEDS ORDERED: Furosemide 40 MG/4 ML VIAL SLOW IVP SCH (09:00)
[2019-05-30] MEDS ORDERED: Insulin Glargine 25 UNITS in Pre-Filled Syringe 1 EACH SC SCH (09:00)
[2019-05-30] MEDS ORDERED: Ezetimibe 10 MG TAB PO SCH (09:00)
[2019-05-30] MEDS ORDERED: Multivitamin W/ Minerals 1 TAB PO SCH (09:00)
[2019-05-30] MEDS ORDERED: Folic Acid 1 MG TAB PO SCH (09:00)
[2019-05-30] MEDS ORDERED: Tamsulosin HCl 0.4 MG CAP PO SCH (09:00)
[2019-05-30] MEDS ORDERED: Famotidine 20 MG TAB PO SCH (09:00)
[2019-05-30] MEDS ORDERED: Atorvastatin Calcium 40 MG TAB PO SCH (09:00)
--- NOTE | 2019-05-30 13:08 | PDOC.HOSPP ---
- Subjective Encounter Date: 05/30/19 Encounter Time: 13:06 Subjective: pt is seen and examined bedside, he did not ate yesterday entire day and he was working at his home, he wake up 4 AM yesterday nad he did not sleep entire day, last night around 10 he passed out when he was in line at [employer], he did not have any chest pain or palpitation before after pqassing out, he denies fever, nausea and vomiting, he drank bear this morning he is doing well and he ate his breakfast and denies any complaints - Objective Vital Signs & Weight: Vital Signs (12 hours) Temp Pulse Resp BP BP BP Pulse Ox 05/30/19 11:25 98.4 F 106 H 14 121/71 94 L 05/30/19 09:00 104 H 128/64 150/68 H 157/73 H 05/30/19 07:39 98.2 F 97 18 131/78 97 05/30/19 02:45 97.6 F 92 18 132/95 H 98 Weight Weight 185 lb Result Diagrams: 05/30/19 03:04 05/30/19 03:04 Additional Labs: Accuchecks 05/30/19 05/30/19 11:26 05:19 POC Glucose 313 H 120 H Radiology Reviewed by me: Yes (CT brain normal) EKG Reviewed by me: Yes (EKG normal) Hospitalist ROS - Review of Systems Constitutional: denies: fever, chills, sweats, weakness, malaise, other Eyes: denies: pain, vision change, conjunctivae inflammation, eyelid inflammation, redness, other ENT: denies: ear pain, ear discharge, nose pain, nose discharge, nose congestion , mouth pain, mouth swelling, throat pain, throat swelling, other Respiratory: denies: cough, dry, shortness of breath, hemoptysis, SOB with excertion, pleuritic pain, sputum, wheezing, other Cardiovascular: denies: chest pain, palpitations, orthopnea, paroxysmal noc. dyspnea, edema, light headedness, other Gastrointestinal: denies: nausea, vomiting, abdominal pain, diarrhea, constipation, melena, hematochezia, other Genitourinary: denies: dysuria, frequency, incontinence, hematuria, retention, other Musculoskeletal: denies: neck pain, shoulder pain, arm pain, back pain, hand pain, leg pain, foot pain, other Skin: denies: rash, lesions, alexx, bruising, other Neurological: denies: weakness, numbness, incoordination, change in speech, confusion, seizures, other - Medication Medications: Active Medications Generic Name Dose Route Start Last Admin Trade Name Freq PRN Reason Stop Dose Admin Atorvastatin Calcium 40 mg 05/30/19 09:00 05/30/19 09:05 Lipitor PO 40 mg QAM CHANDLER Administration Ezetimibe 10 mg 05/30/19 09:00 05/30/19 09:05 Zetia PO 10 mg QAM CHANDLER Administration Famotidine 20 mg 05/30/19 09:00 05/30/19 09:05 Pepcid PO 20 mg DAILY CHANDLER Administration Folic Acid 1 mg 05/30/19 09:00 05/30/19 09:05 Folvite PO 1 mg DAILY CHANDLER Administration Furosemide 40 mg 05/30/19 09:00 05/30/19 09:06 Lasix SLOW IVP 40 mg DAILY CHANDLER Administration Lactated Ringer's 1,000 mls @ 125 mls/hr 05/30/19 02:45 05/30/19 09:51 Lactated Ringer's IV 1,000 mls .Q8H CHANDLER Administration Insulin Glargine 25 units/ 0.25 mls @ 0 mls/hr 05/30/19 09:00 05/30/19 09:06 Miscellaneous Medication SC 0.25 mls QAM CHANDLER Administration Insulin Human Lispro 0 units 05/30/19 02:40 05/30/19 11:39 Humalog SC 8 unit .MODERATE SLIDING SC PRN Administration Moderate Correctional Scale Iron/Minerals/Multivitamins 1 tab 05/30/19 09:00 05/30/19 09:05 Theragran M PO 1 tab DAILY CHANDLER Administration Prednisone 20 mg 05/30/19 08:00 05/30/19 09:05 Prednisone PO 20 mg QAM-WM CHANDLER Administration Rivaroxaban 20 mg 05/30/19 08:00 05/30/19 09:03 Xarelto PO 20 mg QAM-WM CHANDLER Administration Tamsulosin HCl 0.4 mg 05/30/19 09:00 05/30/19 09:05 Flomax PO 0.4 mg QAM CHANDLER Administration - Exam General Appearance: NAD, awake alert Eye: PERRL, anicteric sclera ENT: normocephalic atraumatic, no oropharyngeal lesions, moist mucosa Neck: supple, symmetric, no JVD, no thyromegaly, no lymphadenopathy, no carotid bruit Heart: RRR, no murmur, no gallops, no rubs, normal peripheral pulses Respiratory: CTAB, no wheezes, no rales, no ronchi, normal chest expansion, no tachypnea, normal percussion Gastrointestinal: soft, non-tender, non-distended, normal bowel sounds, no palpable masses, no hepatomegaly, no splenomegaly, no bruit, no guarding, no rigidity Extremities: no cyanosis, no clubbing, no edema Skin: normal turgor Neurological: cranial nerve grossly intact, normal sensation to touch, no weakness, no focal deficits, no new deficit Musculoskeletal: normal tone, normal strength, no muscle wasting Psychiatric: normal affect, normal behavior, A&O x 3, oriented to place, oriented to time Hosp A/P (1) Alcoholic ketoacidosis Code(s): E87.2 - ACIDOSIS Status: Acute Plan: due to starvation, alcohol and lactic acidosis, improving (2) Lactic acidosis Code(s): E87.2 - ACIDOSIS Status: Acute (3) Syncope Code(s): R55 - SYNCOPE AND COLLAPSE Status: Acute Plan: due to volume deplation, no cardiac etiology based on exam and history (4) BPH (benign prostatic hyperplasia) Code(s): N40.0 - BENIGN PROSTATIC HYPERPLASIA WITHOUT LOWER URINRY TRACT SYMP Status: Chronic (5) Cervical myelopathy Code(s): G95.9 - DISEASE OF SPINAL CORD, UNSPECIFIED Status: Chronic (6) Chronic anticoagulation Code(s): Z79.01 - HALF-WAY (CURRENT) USE OF ANTICOAGULANTS Status: Chronic (7) Diabetes type 2, controlled Code(s): E11.9 - TYPE 2 DIABETES MELLITUS WITHOUT COMPLICATIONS Status: Chronic (8) Dyslipidemia Code(s): E78.5 - HYPERLIPIDEMIA, UNSPECIFIED Status: Chronic (9) Essential hypertension Code(s): I10 - ESSENTIAL (PRIMARY) HYPERTENSION Status: Chronic (10) H/O deep venous thrombosis Code(s): Z86.718 - PERSONAL HISTORY OF OTHER VENOUS THROMBOSIS AND EMBOLISM Status: Chronic (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 Status: Chronic - Plan old records reviewed/req -Medication reviewed as above -Symptomatic treatment -Continue IVF -Resume home medication -Repeat labs tomorrow -Observe today and expecting discharge tomorrow
[2019-05-30 15:00] LABS: Lactic Acid 1.8 mmol/L (0.5-2.2)
[2019-05-30 15:05] LABS: ALT (SGPT) 34 U/L (8-55); AST (SGOT) 35 U/L (5-34); Albumin 3.5 g/dL (3.5-5.0); Alkaline Phosphatase 65 U/L (40-110); Anion Gap 11 mmol/L (10-20); BUN (Urea Nitrogen) 16 mg/dL (8.4-25.7); Bilirubin, Total 0.7 mg/dL (0.2-1.2); Calc. Creatinine Clearance 89 mL/min (70-130); Calcium 8.7 mg/dL (7.8-10.44); Carbon Dioxide 26 mmol/L (22-29); Chloride 102 mmol/L (98-107); Estimated GFR-MDRD 87; Globulin 2.7 g/dL (2.4-3.5); Glucose 222 mg/dL (70-105); Magnesium 1.9 mg/dL (1.6-2.6); Phosphorus 2.3 mg/dL (2.3-4.7); Potassium 4.2 mmol/L (3.5-5.1); Protein, Total 6.2 g/dL (6.0-8.3); Sodium 135 mmol/L (136-145)
[2019-05-30 15:08] LABS: Troponin I Less than 0.010 ng/mL (< 0.028)
[2019-05-30 15:51] VITALS: BP 130/81; TEMP 98.1
--- NOTE | 2019-05-30 16:02 | SS ---
DATE OF ADMISSION: 05/30/2019 DATE OF DISCHARGE: 05/30/2019 PRIMARY CARE PHYSICIAN: Abdoulaye Aiken MD Date of admission 05/30/2019 at 2:48 a.m. DISCHARGE DISPOSITION: Home. PRIMARY DISCHARGE DIAGNOSES: 1. Syncope due to volume depletion, resolved. 2. Alcohol intoxication. 3. Metabolic acidosis, resolved. SECONDARY DISCHARGE DIAGNOSES: Still's disease, chronic anticoagulation, hypertension, history of deep venous thrombosis, dyslipidemia, diabetes type 2, cervical myelopathy, benign enlargement of prostate. PRIMARY PROCEDURE/OPERATION: None. RADIOLOGICAL INVESTIGATION: CT brain negative. SIGNIFICANT LABORATORY DATA: WBC 5.6, hemoglobin 14.4, platelet 129. VBG; pH 7.28, bicarb 16.5, sodium 141, potassium 4.0, creatinine 1.05. Lactic acid 1.8. Beta hydroxybutyrate 0.30. DISCHARGE MEDICATIONS: The patient will continue all his previous medications; 1. Anakinra 100 mg subcu daily. 2. Lipitor 40 mg p.o. at bedtime. 3. Prednisone 20 mg daily. 4. Tramadol 100 mg q.6 hourly p.r.n. 5. Zetia 10 mg daily. 6. Pepcid 20 mg daily. 7. Folic acid 1 mg daily. 8. Lantus 45 units subcu daily and 10 units subcu at bedtime. 9. Multivitamin one tablet daily. 10. Xarelto 20 mg daily. 11. Flomax 0.4 mg p.o. daily. CONTRAINDICATION: None. CODE STATUS: Full code. INPATIENT NETWORK MANAGEMENT SPECIALIST: None. ALLERGIES: VANCOMYCIN. DISCHARGE PLAN: Posthospital, the patient will follow up with primary care physician in 1 week. HOSPITAL COURSE: A 59-year-old male, who was admitted last night for syncopal episode. The patient reported me that yesterday he woke up around 4:00 a.m. and he did not have any breakfast and even he did not eat anything because he was not having any appetite. 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 At that point, the patient passed out. Subsequently, the patient was brought to emergency room. The patient also reported that before he passed out, he had alcohol use. His alcohol level was 198 when he arrived to emergency room and he was found with lactic acidosis and metabolic acidosis from alcohol. The patient was admitted to medical floor. He was hydrated with IV fluid and repeat blood test was unremarkable. On admission, CT brain was also unremarkable. The patient did not have any neurological deficit and his cardiac examination was completely normal. He did not require any more further evaluation while in the hospital. He was ambulatory, tolerating p.o. well without any focal neurological deficit. The patient is seen and examined at bedside today. Please see my progress note from today as well. HISTORY OF PRESENT ILLNESS: Please see hospital course. PAST MEDICAL HISTORY: Diabetes type 2, hypertension, dyslipidemia, benign enlargement of prostate, Still's disease, chronic anticoagulation with Xarelto. PAST SURGICAL HISTORY: Cholecystectomy, left shoulder surgery, left knee surgery, cervical fusion, right shoulder surgery. PAST PSYCHIATRIC HISTORY: Reviewed and negative. REVIEW OF SYSTEMS: CONSTITUTIONAL: Negative for weight loss or gain, ability to conduct usual activities. SKIN: Negative for rash, itching. EYES: Negative for double vision, pain. ENT/MOUTH: Negative for nose bleeding, neck stiffness, pain, tenderness. CARDIOVASCULAR: Negative for palpitations, dyspnea on exertion, orthopnea. RESPIRATORY: Negative for shortness of breath, wheezing, cough, hemoptysis, fever or night sweats. GASTROINTESTINAL: Negative for poor appetite, abdominal pain, heartburn, nausea, vomiting, constipation, or diarrhea. GENITOURINARY: Negative for urgency, frequency, dysuria, nocturia. MUSCULOSKELETAL: Negative for pain, swelling. NEUROLOGIC/PSYCHIATRIC: Negative for anxiety, depression. ALLERGY/IMMUNOLOGIC: Negative for skin rash, bleeding tendency. Please see my HPI for further detail. All review of systems reviewed and negative except as mentioned in HPI. SOCIAL HISTORY: The patient drinks alcohol intermittently. He denies any smoking. He denies any other illicit drug abuse. He lives at home with family. CURRENT HOME MEDICATIONS: Please see discharge medication. EMERGENCY ROOM COURSE: The patient is given IV fluid, dextrose with 4.45 NS, thiamine, folic acid. We will repeat labs stat and if CBC and BMP unremarkable, then the patient will be medically stable for discharge to go home later on today. Job ID: [id number]
[2019-05-30] MEDS ORDERED: FLU VACC QS2019-20(6MOS UP)/PF 60 MCG/0.5 ML SYRINGE IM ONE (21:00)
[2019-05-30] MEDS ORDERED: ANAKINRA 100 MG SCH (21:00)
[2019-05-30] MEDS ORDERED: Insulin Glargine 10 UNITS in Pre-Filled Syringe 1 EACH SC SCH (21:00)
--- NOTE | 2019-06-03 02:45 | EKG ---
Test Reason : Blood Pressure : / mmHG Vent. Rate : 094 BPM Atrial Rate : 094 BPM P-R Int : 166 ms QRS Dur : 088 ms QT Int : 378 ms P-R-T Axes : 043 -03 028 degrees QTc Int : 472 ms Normal sinus rhythm Minimal voltage criteria for LVH, may be normal variant Left atrial enlargement Borderline ECG Confirmed by MAT COMER, JANIE Alva ([id number]), editor magazine SHARYN ARVIZU ([id number]) on 06/03/2019 2:45:30 AM Referred By: Confirmed By:JANIE RIVERO MD
== END 2019-05-30 16:35 | disposition home or self-care (01) ==
LOC: ERS 21:36 → SURG A 05-30 02:48
PROVIDERS: ADMIT Hospitalist; ATTEND Hospitalist
DX: E86.9 Volume depletion, unspecified (principal); F10.129 Alcohol abuse with intoxication, unspecified; E87.2 Acidosis; M06.1 Adult-onset Still's disease; I10 Essential (primary) hypertension; E11.9 Type 2 diabetes mellitus without complications; E78.5 Hyperlipidemia, unspecified; M19.90 Unspecified osteoarthritis, unspecified site; Y90.6 Blood alcohol level of 120-199 mg/100 ml; Z79.01 Long term (current) use of anticoagulants; Z79.84 Long term (current) use of oral hypoglycemic drugs; Z79.899 Other long term (current) drug therapy; Z88.1 Allergy status to other antibiotic agents
CPT/HCPCS: 70450; 80048; 80053 ×2; 80307; 82010; 82330; 82435; 82803; 82962; 83605; 83735; 84100; 84132; 84295; 84484 ×2; 85014; 85025 ×2; 93005; 96361 ×2; 96374; 99285; G0378; 36415; 36416; 96360; J1815; J1940; J7512

== ENCOUNTER 2019-06-16 23:03 | Emergency (ER) | payer MEDICARE ==
[2019-06-17 00:05] LABS: #Lymphocytes 4.1 thou/uL (1.20-3.40); #Monocytes 1.1 thou/uL (0.11-0.59); #Neutrophils 4.7 thou/uL (1.40-6.50); %Basophils 0.4 % (0.0-1.0); %Eosinophils 0.4 % (0.0-10.0); %Lymphocytes 41.2 % (21.0-51.0); %Monocytes 10.6 % (0.0-10.0); %Neutrophils 47.3 % (42.0-75.0); Hemoglobin 15.4 g/dL (14.0-18.0); Mean Corpuscular HGB CONC 32.9 g/dL (32.0-36.0); Mean Corpuscular Hemoglobin 31.5 pg (27.0-31.0); Mean Corpuscular Volume 95.7 fL (78.0-98.0); Mean Platelet Volume 8.2 fL (7.4-10.4); Platelet Count 182 thou/uL (130-400); Red Blood Cell (RBC) Count 4.89 mill/uL (4.70-6.10)
[2019-06-17 00:19] LABS: ALT (SGPT) 40 U/L (8-55); AST (SGOT) 28 U/L (5-34); Acetaminophen Less than 6.0 mcg/mL (10.0-30.0); Albumin 4.1 g/dL (3.5-5.0); Alcohol 236 mg/dL (Less than 10); Alkaline Phosphatase 92 U/L (40-110); Anion Gap 20 mmol/L (10-20); BUN (Urea Nitrogen) 24 mg/dL (8.4-25.7); Bilirubin, Total 0.4 mg/dL (0.2-1.2); Calc. Creatinine Clearance 0 mL/min (70-130); Calcium 9.4 mg/dL (7.8-10.44); Carbon Dioxide 18 mmol/L (22-29); Chloride 105 mmol/L (98-107); Estimated GFR-MDRD 56; Globulin 2.9 g/dL (2.4-3.5); Glucose 394 mg/dL (70-105); Potassium 3.4 mmol/L (3.5-5.1); Salicylate Less than 8.0 mg/dL (15.0-30.0); Sodium 140 mmol/L (136-145)
== END 2019-06-16 23:30 | disposition home or self-care (01) ==
LOC: ERS 23:03
DX: F10.129 Alcohol abuse with intoxication, unspecified (principal); E11.65 Type 2 diabetes mellitus with hyperglycemia; E78.5 Hyperlipidemia, unspecified; I10 Essential (primary) hypertension; Z79.899 Other long term (current) drug therapy; Z79.01 Long term (current) use of anticoagulants; Z79.891 Long term (current) use of opiate analgesic; Y90.7 Blood alcohol level of 200-239 mg/100 ml
CPT/HCPCS: 36415; 36416; 80053; 80307; 82010; 85025; 96360

== ENCOUNTER 2019-07-04 12:10 | Inpatient (IN) | payer MEDICARE ==
--- NOTE | 2019-07-04 12:57 | RAD ---
XR Chest 1 View Portable HISTORY: Fever, UTI, generalized weakness COMPARISON: 03/30/2019 FINDINGS: The heart size is stable. The lungs are well expanded without focal areas of consolidation, pneumothorax or pleural effusions. There are postop changes and metallic hardware in the left shoulder and the lower cervical spine. IMPRESSION: No radiographic evidence of acute cardiopulmonary process.
[2019-07-04 13:02] LABS: Hemoglobin 15.7 g/dL (14.0-18.0); Mean Corpuscular HGB CONC 32.9 g/dL (32.0-36.0); Mean Corpuscular Hemoglobin 31.6 pg (27.0-31.0); Mean Corpuscular Volume 96.2 fL (78.0-98.0); Mean Platelet Volume 7.8 fL (7.4-10.4); Platelet Count 158 thou/uL (130-400); RBC Distribution Width 15.1 % (11.5-14.5); Red Blood Cell (RBC) Count 4.96 mill/uL (4.70-6.10); White Blood Cell (WBC) Count 13.7 thou/uL (4.8-10.8)
[2019-07-04 13:12] LABS: ALT (SGPT) 23 U/L (8-55); AST (SGOT) 28 U/L (5-34); Albumin 3.8 g/dL (3.5-5.0); Alkaline Phosphatase 88 U/L (40-110); Anion Gap 19 mmol/L (10-20); BUN (Urea Nitrogen) 22 mg/dL (8.4-25.7); Bilirubin, Total 0.9 mg/dL (0.2-1.2); Calc. Creatinine Clearance 0 mL/min (70-130); Calcium 9.2 mg/dL (7.8-10.44); Carbon Dioxide 18 mmol/L (22-29); Chloride 105 mmol/L (98-107); Estimated GFR-MDRD 56; Globulin 3.1 g/dL (2.4-3.5); Glucose 202 mg/dL (70-105); Potassium 4.2 mmol/L (3.5-5.1); Protein, Total 6.9 g/dL (6.0-8.3); Sodium 138 mmol/L (136-145)
[2019-07-04 13:30] LABS: Band 39 % (5-11); MDiff Complete? YES; Metamyelocyte 1 % (0-0); Monocytes 4 % (0-10); Neutrophil 46 % (42-75); Platelet Morphology Comment Appears Adequate; Polychromasia SLIGHT = 2-3 cells (100X) (0-2/hpf); Reactive Lymphocytes 10 % (0-10)
[2019-07-04] MEDS ORDERED: Piperacillin/Tazobactam 4.5 GM VIAL ONE (14:07)
[2019-07-04 14:32] LABS: Bacteria/HPF None Seen HPF (None Seen); Bilirubin Negative (Negative); Blood, Urine Trace (Negative); Clarity Clear (Clear); Glucose, Urine (Dipstick) Greater than 1000 mg/dL (Negative); Leukocyte Negative Leu/uL (Negative); Nitrite Negative (Negative); Protein, Urine (Dipstick) 30 mg/dL (Neg-Trace); RBC/HPF 0-3 HPF (0-3); Squamous Epithelial 0-3 HPF (0-3); Urobilinogen Normal mg/dL (Less than 2)
[2019-07-04] MEDS ORDERED: Acetaminophen 500 MG TAB ONE (14:53)
[2019-07-04 15:53] LABS: Lactic Acid 2.3 mmol/L (0.5-2.2)
--- NOTE | 2019-07-04 17:00 | PDOC.FPRHP ---
- History of Present Illness Chief Complaint: Vomiting and weakness History of Present Illness: This is a 59 yo male with a pmh of DM2, HTN, HLD, BPH, Still's disease, RA, chronic anticoagulation who presents to the ER with a cc of vomiting and weakness. He states that he vomited twice yesterday. Today he states that he has had weakness all day that prompted him to come to the ER. He currently denies cough, wheezing, trouble breathing, chest pain, abdominal pain, or vomiting. His nausea is improved. He does report feelings of malaise. Upon chart review and further questioning, he reports that he may have missed 2 doses of his anakinra. A note on his previous admissions. This pt is well known to this hospital. He has been admitted before for very similar situations. He will miss a day or two of his anakinra for his RA and present as a Sepsis picture and under go a full workup with negative blood cultures and treated with broad spectrum. ED Course: Tylenol 1g, 2500ml NS, Zosyn 4.5g - Allergies/Adverse Reactions Allergies Allergy/AdvReac Type Severity Reaction Status Date / Time vancomycin Allergy Intermediate Verified 07/04/19 20:01 - Home Medications Medication Instructions Recorded Confirmed Type Atorvastatin Calcium [Lipitor] 40 mg PO QAM 10/18/15 07/04/19 History Anakinra [Kineret] 100 mg SQ QPM 09/01/18 07/04/19 History Ezetimibe [Zetia] 10 mg PO QAM tab 01/03/19 07/04/19 Rx Famotidine [Pepcid] 20 mg PO DAILY tab 01/03/19 07/04/19 Rx Folic Acid [Folvite] 1 mg PO DAILY tab 01/03/19 07/04/19 Rx Insulin Glargine [Lantus] 10 units SC HS vial 01/03/19 07/04/19 Rx Insulin Glargine [Lantus] 45 units SC QAM vial 01/03/19 07/04/19 Rx Multivitamin W/ Minerals 1 tab PO DAILY tab 01/03/19 07/04/19 Rx [Theragran M] Rivaroxaban [Xarelto] 20 mg PO QAM-WM tab 01/03/19 07/04/19 Rx Tamsulosin HCl [Flomax] 0.4 mg PO QAM cap 01/03/19 07/04/19 Rx Acetaminophen [Tylenol Extra 500 mg PO Q4H PRN 02/03/19 07/04/19 History Strength] predniSONE 10 mg PO QAM-WM 05/30/19 07/04/19 History traMADol HCl [Tramadol HCl] 100 mg PO Q6H PRN 05/30/19 07/04/19 History - History PMHx:Adult-Still disease/Rheumatoid arthritis, DM2, HTN PSHx: Cholecystecomy FHx: non-contributory Social: Alcohol abuse, non-smoker, denies drug abuse - Review of Systems General: reports: fever/chills, fatigue. denies: weight/appetite/sleep changes , night sweats Eyes: denies: eye pain, vision changes ENT: denies: nasal congestion, rhinorrhea Respiratory: denies: cough, congestion, shortness of breath, exercise intolerance Cardiovascular: denies: chest pain, palpitation, edema, paroxysmal nocturnal dyspnea Gastrointestinal: reports: nausea, vomiting. denies: diarrhea, constipation Genitourinary: denies: incontinence, dysuria Skin: reports: rashes (rash on back) Musculoskeletal: denies: pain, tenderness, stiffness, swelling Neurological: reports: weakness (global). denies: numbness, syncope, seizure Psychological: denies: anxiety, depression - Vital signs BP: 107/75 HR: 118 RR: 27 Tmax: 102.1 Pox: 98% on ra Wt: 83 kg - Physical Exam Constitutional: NAD, awake, alert and oriented, well developed HEENT: normocephalic and atraumatic, EOMI, grossly normal vision, grossly normal hearing, other (dry mm) Neck: FROM, trachea midline, no LAD, no JVD Chest: no-tender to palpation Heart: RRR, normal S1/S2, no murmurs/rubs/gallops, pulses present Lungs: CTAB, no respiratory distress, good air movement, no rales/rhonchi, no wheezing, no retractions Abdomen: soft, non-tender, bowel sounds present, other (distension of abdomen) Musculoskeletal: normal structure, normal tone, ROM grossly normal Neurological: CN II-XII intact, normal sensation Skin: good turgor, capillary refill <2 seconds Heme/Lymphatic: no unusual bruising or bleeding, no purpura, other (papular rash over chest and back with a few erythematous lesions) Psychiatric: normal mood and affect, good judgment and insight FMR H&P: Results - Labs Result Diagrams: 07/05/19 05:59 07/05/19 05:59 Lab results: WBC 13.7 thou/uL (4.8-10.8) H 07/04/19 12:38 Hgb 15.7 g/dL (14.0-18.0) 07/04/19 12:38 Hct 47.8 % (42.0-52.0) 07/04/19 12:38 MCV 96.2 fL (78.0-98.0) 07/04/19 12:38 Plt Count 158 thou/uL (130-400) 07/04/19 12:38 Band Neuts % (Manual) 39 % (5-11) H 07/04/19 12:38 Sodium 138 mmol/L (136-145) 07/04/19 12:38 Potassium 4.2 mmol/L (3.5-5.1) 07/04/19 12:38 Chloride 105 mmol/L (98-107) 07/04/19 12:38 Carbon Dioxide 18 mmol/L (22-29) L 07/04/19 12:38 BUN 22 mg/dL (8.4-25.7) 07/04/19 12:38 Creatinine 1.54 mg/dL (0.7-1.3) H 07/04/19 12:38 Glucose 202 mg/dL (70-105) H 07/04/19 12:38 Lactic Acid 2.3 mmol/L (0.5-2.2) H 07/04/19 15:26 Calcium 9.2 mg/dL (7.8-10.44) 07/04/19 12:38 Total Bilirubin 0.9 mg/dL (0.2-1.2) 07/04/19 12:38 AST 28 U/L (5-34) 07/04/19 12:38 ALT 23 U/L (8-55) 07/04/19 12:38 Alkaline Phosphatase 88 U/L (40-110) 07/04/19 12:38 B-Natriuretic Peptide 60.2 pg/mL (0-100) 07/04/19 12:38 Serum Total Protein 6.9 g/dL (6.0-8.3) 07/04/19 12:38 Albumin 3.8 g/dL (3.5-5.0) 07/04/19 12:38 Urine Ketones 60 mg/dL (Negative) A 07/04/19 14:00 Urine Blood Trace (Negative) A 07/04/19 14:00 Urine Nitrite Negative (Negative) 07/04/19 14:00 Ur Leukocyte Esterase Negative Dvaid/uL (Negative) 07/04/19 14:00 Urine RBC 0-3 HPF (0-3) 07/04/19 14:00 Urine WBC 7-10 HPF (0-3) A 07/04/19 14:00 Ur Squamous Epith Cells 0-3 HPF (0-3) 07/04/19 14:00 Urine Bacteria None Seen HPF (None Seen) 07/04/19 14:00 - Radiology Interpretation Chest x-ray Status: image reviewed by me, report reviewed by me (No acute cardiopulmonary process) FMR H&P: A/P - Problem List (1) Lactic acidosis Current Visit: No Status: Acute Code(s): E87.2 - ACIDOSIS (2) SIRS (systemic inflammatory response syndrome) Current Visit: No Status: Acute Code(s): R65.10 - SIRS OF NON-INFECTIOUS ORIGIN W/O ACUTE ORGAN DYSFUNCTION (3) Sepsis Current Visit: No Status: Acute Code(s): A41.9 - SEPSIS, UNSPECIFIED ORGANISM (4) Adult Still's disease Current Visit: No Status: Chronic Code(s): M06.1 - ADULT-ONSET STILL'S DISEASE Comment: Cont Anakinran and PO steroids.OP Rheumatology follow up (5) BPH (benign prostatic hyperplasia) Current Visit: No Status: Chronic Code(s): N40.0 - BENIGN PROSTATIC HYPERPLASIA WITHOUT LOWER URINRY TRACT SYMP (6) Diabetes type 2, controlled Current Visit: No Status: Chronic Code(s): E11.9 - TYPE 2 DIABETES MELLITUS WITHOUT COMPLICATIONS - Plan This is a 59 yo male with a pmh of Adult stills/RA, HTN, HLD, DM2 Sepsis with no obvious sources at this time, likely related to not taking his anakinra in the past -Admit to medical -Broad spectrum abx clinda, cefepime, levaquin -S/P 30ml/kg fluid bolus, continue maintenance fluids -Plan to consult Dr. Nickerson in the AM -WBC of 13.7 with bandemia -Flu negative -CXR negative -UA appears clear Adult stills/RA -Continue anakinra -Stress dose steroids for 24 hours 2/2 adrenal suppression from chronic steroid use HTN -Does not appear to be on medications, will monitor Lactic acidosis, improving -Likely 2/2 above, likely contributes to anion gap CARL -Appears to have normal renal function at baseline -Will monitor after fluids, likely from dehydration DM2 -Continue home medications HLD -Continue atorvastatin Code: Full Prophylaxis: Lovenox, Pepcid Family: none at bedside Diet: CC Fluids: LR 120 Disposition: DC in2-3 days PCP: Dr. Zuniga Addendum - Attending - Attending Attestation Date/Time: 07/05/19 [id number] I personally evaluated the patient and discussed the management with Dr. Schafer at time of admission yesterday. I agree with the History, Examination, Assessment and Plan documented above with any addition or exceptions noted below.
--- NOTE | 2019-07-04 17:22 | PDOC.BPN ---
- Brief Progress Note Date/Time: 07/04/19 3661 I personally evaluated the patient and discussed the management with Dr. Jennings in the ER. I agree with the History, Examination, Assessment and Plan as discussed. H&P pending. Unlike his recent admissions he is not hypotensive. He is tachycardic and appears to have sepsis. source unclear. Empiric antibiotics to be started. Urine and blood cultures ordered. Complex patient. DONYA protocol. Steroids for chromic adrenal suppresion.
[2019-07-04] MEDS ORDERED: Ondansetron PF 4 MG/2 ML Vial IVP PRN (17:53)
[2019-07-04] MEDS ORDERED: Ondansetron ODT 4 MG TAB PO PRN (17:53)
[2019-07-04] MEDS ORDERED: Dextrose 50% Abboject 50 ML SYRINGE SLOW IVP PRN (17:53)
[2019-07-04] MEDS ORDERED: Dextrose 5% in Water 1,000 ML IV PRN (17:53)
[2019-07-04] MEDS ORDERED: Acetaminophen 650 MG Suppository PR PRN (17:53)
[2019-07-04] MEDS ORDERED: Hydrocortisone Sod Succ/PF 100 mg/2 ml Vial IVP SCH ×2 (18:45→23:59)
[2019-07-04] MEDS: Clindamycin/D5W 600 MG in Premix Bag 1 BAG IVPB SCH (19:04)
[2019-07-04] MEDS: Lactated Ringer's 1,000 ML IV SCH (19:04)
[2019-07-04 19:07] LABS: Alcohol Less than 10 mg/dL (Less than 10); Salicylate Less than 8.0 mg/dL (15.0-30.0)
[2019-07-04] MEDS ORDERED: traMADol HCl 50 MG TAB PO PRN (19:34)
[2019-07-04 20:03] VITALS: BMI 27.5
[2019-07-04] MEDS ORDERED: ANAKINRA 100 MG SQ SCH (21:00)
[2019-07-04] MEDS: Insulin Glargine 10 UNITS in Pre-Filled Syringe 1 EACH SC SCH (21:01)
[2019-07-04] MEDS: Cefepime 1 GM in Sodium Chloride 0.9% 100 ML IVPB SCH (21:01)
[2019-07-04 22:29] LABS: Amphetamine Not Detected (NotDetected); Barbiturates Screen Not Detected (NotDetected); Benzodiazepine Screen Not Detected (NotDetected); Cocaine Metabolite Screen Not Detected (NotDetected); Medtox Control Line Valid? VALID (VALID); Medtox Reader # READER 4; Methadone Not Detected (NotDetected); Methamphetamine Not Detected (NotDetected); Opiate Screen Not Detected (NotDetected); Oxycodone Screen Not Detected (NotDetected); Phencyclidine (PCP) Not Detected (NotDetected); THC/Cannabinoid Screen Not Detected (NotDetected); Tricyclic Screen Not Detected (NotDetected)
[2019-07-05] MEDS: Clindamycin/D5W 600 MG in Premix Bag 1 BAG IVPB SCH ×3 (00:20→11:15)
[2019-07-05] MEDS: HumaLOG 300 UNITS/3 ML VIAL SC PRN ×3 (00:21→16:27)
[2019-07-05] MEDS: Hydrocortisone Sod Succ/PF 100 mg/2 ml Vial IVP SCH ×4 (03:07→21:02)
[2019-07-05] MEDS: Lactated Ringer's 1,000 ML IV SCH ×4 (03:08→23:39)
--- NOTE | 2019-07-05 05:46 | PDOC.FM ---
- Subjective Subjective: Patient reports that he is feeling much better today. Reports similar symptoms have occured in the past when he has skipped a dose of anakirin, and he recently skipped 2 doses. - Objective Vital Signs & Weight: Vital Signs (12 hours) Temp Pulse Resp BP BP Pulse Ox 07/05/19 04:21 97.7 F 97 16 112/75 97 07/05/19 00:29 97.5 F L 93 16 109/71 96 07/04/19 23:16 98.4 F 97 16 100/68 95 07/04/19 22:15 98.3 F 101 H 16 93/60 96 07/04/19 20:26 97.4 F L 107 H 18 86/57 L 96 07/04/19 19:05 98.4 F 104 H 17 92/61 96 Weight Weight 82.1 kg Result Diagrams: 07/05/19 05:59 07/06/19 05:27 Phys Exam - Physical Examination Constitutional: NAD HEENT: moist MMs Neck: supple, full ROM Respiratory: no wheezing, clear to auscultation bilateral Cardiovascular: RRR, no significant murmur Gastrointestinal: soft, positive bowel sounds Musculoskeletal: no edema, pulses present Neurological: normal sensation, moves all 4 limbs Psychiatric: normal affect, A&O x 3 Skin: no rash, normal turgor Dx/Plan (1) Lactic acidosis Code(s): E87.2 - ACIDOSIS Status: Acute (2) Sepsis Code(s): A41.9 - SEPSIS, UNSPECIFIED ORGANISM Status: Acute (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 DISEASE Status: Chronic (4) Diabetes type 2, controlled Code(s): E11.9 - TYPE 2 DIABETES MELLITUS WITHOUT COMPLICATIONS Status: Chronic (5) Essential hypertension Code(s): I10 - ESSENTIAL (PRIMARY) HYPERTENSION Status: Chronic (6) Acute kidney failure Status: Acute - Plan Plan: This is a 59 yo male with a pmh of DM2, HTN, HLD, BPH, Still's disease, RA, chronic anticoagulation who is admitted for sepsis with no obvious source #Sepsis with no obvious sources at this time, likely related to not taking his anakinra in the past -Admitted to medical -Vanc allergy, Broad spectrum abx clinda, cefepime, levaquin -S/P 30ml/kg fluid bolus, continue maintenance fluids -Consult Dr. Nickerson today -WBC of 13.7 with bandemia -Flu neg -CXR neg -UA neg for LE, nitrites, bacteria #Adult stills/RA -Continue anakinra -Received stress dose steroids for adrenal suppression from chronic steroid use , on taper #HTN -no home medications -BP stable -will monitor #Lactic acidosis, improving -Likely 2/2 above, likely contributes to anion gap #CARL -Appears to have normal renal function at baseline -has improved after fluid hydration, likely dehydrated #DM2 -Continue home medications #HLD -Continue atorvastatin Code: Full Prophylaxis: Lovenox, Pepcid Diet: CC Fluids: LR 120 Disposition: inpatient for IV abx, steroids, ID consult today PCP: Dr. Zuniga Addendum - Attending - Attending Attestation Date/Time: 07/05/19 9671 I personally evaluated the patient and discussed the management with Dr. Mcleod. I agree with the History, Examination, Assessment and Plan documented above with any addition or exceptions noted below. The patient's urine culture is growing yeast. Will begin fluconazole. Awaiting blood cultures.
[2019-07-05 06:34] LABS: Hemoglobin 13.8 g/dL (14.0-18.0); Mean Corpuscular HGB CONC 33.1 g/dL (32.0-36.0); Mean Corpuscular Hemoglobin 31.8 pg (27.0-31.0); Mean Corpuscular Volume 96.1 fL (78.0-98.0); Mean Platelet Volume 8.1 fL (7.4-10.4); Platelet Count 140 thou/uL (130-400); Red Blood Cell (RBC) Count 4.35 mill/uL (4.70-6.10); White Blood Cell (WBC) Count 12.4 thou/uL (4.8-10.8)
[2019-07-05 06:48] LABS: Anion Gap 18 mmol/L (10-20); BUN (Urea Nitrogen) 26 mg/dL (8.4-25.7); Calc. Creatinine Clearance 82 mL/min (70-130); Calcium 9.1 mg/dL (7.8-10.44); Carbon Dioxide 15 mmol/L (22-29); Chloride 110 mmol/L (98-107); Estimated GFR-MDRD 81; Glucose 159 mg/dL (70-105); Sodium 138 mmol/L (136-145)
[2019-07-05] MEDS: Tamsulosin HCl 0.4 MG CAP PO SCH (08:19)
[2019-07-05] MEDS: Ezetimibe 10 MG TAB PO SCH (08:19)
[2019-07-05] MEDS: Rivaroxaban 10 MG TAB PO SCH (08:19)
[2019-07-05] MEDS: Atorvastatin Calcium 40 MG TAB PO SCH (08:19)
[2019-07-05] MEDS: Folic Acid 1 MG TAB PO SCH (08:19)
[2019-07-05] MEDS: Multivitamin W/ Minerals 1 TAB PO SCH (08:19)
[2019-07-05] MEDS: Famotidine 20 MG TAB PO SCH (08:19)
[2019-07-05] MEDS: Insulin Glargine 45 UNITS in Pre-Filled Syringe 1 EACH SC SCH (08:19)
[2019-07-05] MEDS: Cefepime 1 GM in Sodium Chloride 0.9% 100 ML IVPB SCH (08:20)
[2019-07-05 08:57] LABS: Band 38 % (5-11); Lymphocytes 7 % (21-51); MDiff Complete? YES; Monocytes 4 % (0-10); Neutrophil 49 % (42-75); RBC Morphology Normal; Reactive Lymphocytes 2 % (0-10)
[2019-07-05] MEDS ORDERED: Prevnar 13-Val Conj/PF 0.5 ML SYRINGE IM ONE (09:00)
[2019-07-05] MEDS ORDERED: Enoxaparin Sodium 40 MG/0.4 ML SYRINGE SC SCH (09:00)
[2019-07-05] MEDS ORDERED: FLU VACC QS2019-20(6MOS UP)/PF 60 MCG/0.5 ML SYRINGE IM ONE ×2 (09:00→17:00)
[2019-07-05] MEDS ORDERED: Fluconazole 100 MG TAB PO SCH (11:00)
[2019-07-05] MEDS: Fluconazole 100 MG TAB PO SCH (11:11)
[2019-07-05] MEDS ORDERED: cefTRIAXone\\ROCEPHIN 2 GM in Sodium Chloride 0.9% 100 ML IVPB SCH (13:00)
[2019-07-05 13:07] LABS: Lactic Acid 1.6 mmol/L (0.5-2.2)
[2019-07-05] MEDS: Insulin Glargine 10 UNITS in Pre-Filled Syringe 1 EACH SC SCH (21:02)
[2019-07-05] MEDS: Acetaminophen 325 MG TAB PO PRN (21:04)
--- NOTE | 2019-07-06 05:50 | PDOC.FM ---
- Subjective Subjective: Patient doing well this morning. Reports he feels well. Explained the positive blood and urine cultures, and that we are waiting for sensitivities at this time. Patient agreeable with current plan of care. - Objective Vital Signs & Weight: Vital Signs (12 hours) Temp Pulse Resp BP Pulse Ox 07/05/19 23:40 98.6 F 100 18 103/72 94 L 07/05/19 20:06 98.4 F 107 H 16 123/79 95 Weight Admit Weight 82.1 kg Weight 82.1 kg I&O: 07/04/19 07/05/19 07/06/19 06:59 06:59 06:59 Intake Total 2200 2009 Output Total 1400 850 Balance 800 1160 Result Diagrams: 07/05/19 05:59 07/06/19 05:27 Phys Exam - Physical Examination Constitutional: NAD HEENT: moist MMs, sclera anicteric Neck: supple, full ROM Respiratory: no wheezing, clear to auscultation bilateral Cardiovascular: RRR, no significant murmur Gastrointestinal: soft, non-tender Musculoskeletal: no edema, pulses present Neurological: normal sensation, moves all 4 limbs Psychiatric: normal affect, A&O x 3 Skin: no rash, normal turgor Dx/Plan (1) Lactic acidosis Code(s): E87.2 - ACIDOSIS Status: Acute (2) Sepsis Code(s): A41.9 - SEPSIS, UNSPECIFIED ORGANISM Status: Acute (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 DISEASE Status: Chronic (4) Diabetes type 2, controlled Code(s): E11.9 - TYPE 2 DIABETES MELLITUS WITHOUT COMPLICATIONS Status: Chronic (5) Essential hypertension Code(s): I10 - ESSENTIAL (PRIMARY) HYPERTENSION Status: Chronic (6) Acute kidney failure Status: Acute - Plan Plan: This is a 59 yo male with a pmh of DM2, HTN, HLD, BPH, Still's disease, RA, chronic anticoagulation who is admitted for sepsis due to e coli bacteremia, yeast UTI #Sepsis due to e coli bacteremia, yeast UTI, possibly also related to not taking his anakinra in the past -Admitted to medical -Vanc allergy, Broad spectrum abx clinda, cefepime, levaquin, transitioned to ceftriaxone 07/05 -Blood culture positive for e coli; patient's blood culture in the past positive for e coli has been sensitive to ceftriaxone, patient transitioned -sensitivities pending, will follow -afebrile overnight -S/P 30ml/kg fluid bolus, continue maintenance fluids -WBC of 13.7 with bandemia -Flu neg -CXR neg -UA neg for LE, nitrites, bacteria; positive for yeast, started on fluconazole 07/05 #UTI-yeast -started on fluconazole 07/05 -sensitivities pending, will follow #Adult stills/RA -Continue anakinra -Received stress dose steroids for adrenal suppression from chronic steroid use , on taper #HTN -no home medications -BP stable -will monitor #Lactic acidosis, resolved -lactic 1.6 on 07/05 #CARL, resolved -Appears to have normal renal function at baseline -has improved after fluid hydration, likely dehydrated #DM2 -Continue home medications #HLD -Continue atorvastatin Code: Full Prophylaxis: Lovenox, Pepcid Diet: CC Fluids: SL Disposition: inpatient for IV abx, steroids, blood/urine sensitivities pending for transition to PO abx PCP: Dr. Zuniga Addendum - Attending - Attending Attestation Date/Time: 07/06/19 9088 I personally evaluated the patient and discussed the management with Dr. Mcleod. I agree with the History, Examination, Assessment and Plan documented above with any addition or exceptions noted below. The patient has e coli bacteremia and yeast uti. The patient also complains of new onset diarrhea this morning. If it continues, will get stool studies. Consulting ID. Continue rocephin and fluconazole. Holding night dose of lantus 2/2 hypoglycemia.
[2019-07-06 06:21] LABS: Anion Gap 11 mmol/L (10-20); BUN (Urea Nitrogen) 17 mg/dL (8.4-25.7); Calc. Creatinine Clearance 106 mL/min (70-130); Calcium 8.7 mg/dL (7.8-10.44); Carbon Dioxide 20 mmol/L (22-29); Chloride 112 mmol/L (98-107); Estimated GFR-MDRD Greater than 90; Potassium 3.8 mmol/L (3.5-5.1); Sodium 139 mmol/L (136-145)
[2019-07-06 06:24] LABS: Glucose 59 mg/dL (70-105)
[2019-07-06] MEDS: Lactated Ringer's 1,000 ML IV SCH ×2 (07:49→11:53)
[2019-07-06] MEDS: Acetaminophen 325 MG TAB PO PRN ×2 (07:49→12:27)
[2019-07-06] MEDS: Multivitamin W/ Minerals 1 TAB PO SCH (07:49)
[2019-07-06] MEDS: Atorvastatin Calcium 40 MG TAB PO SCH (07:50)
[2019-07-06] MEDS: Rivaroxaban 10 MG TAB PO SCH (07:50)
[2019-07-06] MEDS: Ezetimibe 10 MG TAB PO SCH (07:50)
[2019-07-06] MEDS: Tamsulosin HCl 0.4 MG CAP PO SCH (07:50)
[2019-07-06] MEDS: Famotidine 20 MG TAB PO SCH (07:50)
[2019-07-06] MEDS: Folic Acid 1 MG TAB PO SCH (07:50)
[2019-07-06] MEDS ORDERED: Benzonatate 100 MG CAP PO PRN (08:05)
[2019-07-06] MEDS: Fluconazole 100 MG TAB PO SCH (10:41)
[2019-07-06] MEDS: Insulin Glargine 45 UNITS in Pre-Filled Syringe 1 EACH SC SCH (11:24)
[2019-07-06] MEDS ORDERED: Lactated Ringer's 1,000 ML IV SCH ×2 (11:30→13:00)
[2019-07-06 11:41] LABS: Band 15 % (5-11); Eosinophils 1 % (0-10); Lymphocytes 12 % (21-51); MDiff Complete? YES; Mean Corpuscular HGB CONC 32.6 g/dL (32.0-36.0); Mean Corpuscular Hemoglobin 31.6 pg (27.0-31.0); Mean Platelet Volume 8.9 fL (7.4-10.4); Monocytes 5 % (0-10); Neutrophil 65 % (42-75); Platelet Count 152 thou/uL (130-400); Platelet Morphology Comment Appears Adequate; RBC Distribution Width 15.2 % (11.5-14.5); Reactive Lymphocytes 2 % (0-10); Red Blood Cell (RBC) Count 4.76 mill/uL (4.70-6.10); Reflex for Review?? NO; Vacuoles MODERATE; White Blood Cell (WBC) Count 8.8 thou/uL (4.8-10.8)
[2019-07-06] MEDS: predniSONE 5 MG TAB PO SCH (11:56)
--- NOTE | 2019-07-06 13:33 | CON ---
DATE OF CONSULTATION: 07/06/2019 REASON FOR CONSULTATION: Fever, bacteremia. HISTORY OF PRESENT ILLNESS: This is a 59-year-old known to me from prior visits. History of type 2 diabetes, C-spine fusion, adult Still disease, rheumatoid arthritis, on anakinra and prednisone, and who had a recent admission in March for evaluation of febrile illness. In the past, he has had frequent admissions for various complications. I would say most of those admissions were felt to be due to his underlying autoimmune syndrome, but some of them are actually caused by a true infectious complication. He at this time was brought in with fever. He had some vomiting. No headaches. No visual symptoms. Some cough but not much, no sputum production. Some chest tenderness in the anterior midline chest area. No abdominal pain. No dysuria. No diarrhea or bleeding. The usual joint symptoms related to his chronic autoimmune process. Since admission, the patient has been given ceftriaxone, Xarelto, fluconazole, and anakinra was prescribed but was not given. He is on prednisone 10 mg daily. Currently he is awake, oriented, little bit diaphoretic. He is tachycardic and hypotensive. His temperature is elevated at this time. REVIEW OF SYSTEMS: His 10-point review of systems is remarkable for sore throat and pain in the in the neck area. Other 10-point review of system as above. MEDICAL HISTORY: Adult Still disease/rheumatoid arthritis, type 2 diabetes, bacteremia, MRSA bacteremia. PAST SURGICAL HISTORY: Cholecystectomy, shoulder repair, neck fusion, knee arthroscopy. SOCIAL HISTORY: Never a smoker, lives with family in [place]. No other drug use. FAMILY HISTORY: Coronary artery disease, type 2 diabetes. ALLERGIES: VANCOMYCIN, PROBABLY RED MAN SYNDROME. CURRENT MEDICATIONS: 1. Ceftriaxone. 2. Lipitor. 3. Tessalon. 4. Folic acid. 5. Insulin. 6. Lactated Ringer's. 7. Anakinra, although it has not been given to him for the past 48 hours since admission. 8. Zofran. 9. Prednisone. 10. Xarelto. PHYSICAL EXAMINATION: GENERAL: He is diaphoretic. The patient is voiding in the urinal. VITAL SIGNS: Temperature 101 at this moment, BP 108/73, pulse 96, respirations 18, O2 saturation 96%. SKIN: Peripheral IV access. No areas of skin breakdown. No lymphadenopathy. HEENT AND NECK: Ocular movements conjugate. Tender neck. Dentures present. Oral cavity moist. No lesions. Tender submandibular areas and lateral neck region. I would say moderately tender. LUNGS: Symmetric, clear breath sounds. HEART: S1, S2, regular rate, no S3 or S4. ABDOMEN: Soft, not distended or tender. No ascites. No bladder distention. No organomegaly. EXTREMITIES: No joint tenderness in the appendicular structures or evidence of joint effusion. No edema. Pulses 1+ in dorsalis pedis. Moves extremities with some limitations. NEUROLOGIC: His cognitive function appears to be intact. LABORATORY STUDIES: Sodium 139, creatinine 0.87, phosphorus 2.0, and liver profile normal. Albumin 3.8. Urinalysis: 7 to 10 wbc's. The patient had a chest x-ray with no evidence of acute cardiopulmonary process. He had a transesophageal echocardiogram done in March 2012 which was negative. EF was 50% to 55%. ASSESSMENT: 1. Adult Still disease with rheumatoid arthritis, on anakinra and prednisone low dose. 2. Recurrent episodes of fever, some of them associated with bacteremia, the last one was MRSA. He has had coagulase-negative Staph bacteremia in the past. 3. Recurrence of fever, vomiting, and Escherichia coli bacteremia detected in one set of blood cultures. The organism does not appear to be [employer] information [employer] brokerage. He also has yeast in the urine culture. DISCUSSION: The patients who have received anakinra have been noted to have increased rates of bacteremia. I believe that is part of the reason for his current status. The other factor is the acute illness and the need to increase the dose of corticosteroids and finally he has been off anakinra for t2 days now and will have to be restarted. May need imaging re-imaging of his chest and abdomen and pelvis with CT scan. Depending on clinical progress, we will start him on Medrol increased dosage for his acute illness, resume anakinra, continue Rocephin. Job ID: [id number]
[2019-07-06] MEDS: Hydrocortisone Sod Succ/PF 100 mg/2 ml Vial IVP SCH ×2 (13:40→21:33)
[2019-07-06] MEDS ORDERED: Meropenem 1 GM in Sodium Chloride 0.9% 100 ML IVPB SCH (14:00)
--- NOTE | 2019-07-06 14:11 | RAD ---
Chest AP view INDICATION: Chest pain COMPARISON: 07/04/2019 FINDINGS: Lungs:The lungs are clear Cardiac silhouette:There is stable cardiomegaly Pulmonary vasculature:There is worsening: Rest congestion and interstitial edema Pleural spaces:There are small bilateral pleural effusions Upper abdomen:No abnormality seen. Osseous structures: Left total shoulder replacement is unchanged. There is partial visualization of A CDF involving the cervical spine. Additional findings:None. IMPRESSION: Mild CHF
[2019-07-06] MEDS: MEROPENEM 1 GM/50 ML 1 GM in Premix Bag 1 BAG IVPB SCH ×2 (14:30→21:32)
[2019-07-06 14:50] LABS: Magnesium 1.7 mg/dL (1.6-2.6); Phosphorus 1.1 mg/dL (2.3-4.7)
--- NOTE | 2019-07-06 15:11 | CT ---
CT OF THE ABDOMEN AND PELVIS WITH IV CONTRAST: INDICATION: History of bacteremia of unknown source. COMPARISON: CT the chest, abdomen and pelvis dated March 30, 2019. FINDINGS: ABDOMEN: Lung bases: There are small bilateral pleural effusions and bibasilar atelectasis. There is bilateral male gynecomastia. Liver: No focal lesion. Gallbladder: Surgically absent. Pancreas: Normal. Adrenal glands: Normal. Spleen: Normal. Kidneys and ureters: There is stable 5 cm cyst involving the superior pole the right kidney. There is a 1.9 cm cyst involving the inferior pole left kidney. Vasculature: There are mild vascular calcifications seen involving the visualized vasculature. Lymph nodes:No lymphadenopathy. Free fluid in abdomen:No free fluid is evident. PELVIS: Small and large bowel: Normal. Appendix:Normal. Bladder: Mild bladder wall thickening. Rectal and perirectal soft tissues:Normal. Reproductive structures: Prostate gland measures 4.6 cm. Free fluid in pelvis: No free fluid is evident. Lymphadenopathy pelvis: No lymphadenopathy is evident. Osseous structures: No acute osseous abnormality. No destructive osteolytic or osteoblastic lesion i s identified. There is scattered degenerative and osteoarthritic changes. Soft tissues:Normal. IMPRESSION: 1. No CT explanation for the patient's bacteremia. 2. Small bilateral pleural effusions and bibasilar atelectasis. 3. Bilateral renal cysts. 4. Mild bladder wall thickening and prostate enlargement may reflect a component of chronic bladder o utlet obstruction. Cholecystitis is not excluded. Transcribed Date/Time: 07/06/2019 3:28 PM
[2019-07-06] MEDS ORDERED: PHOS-NAK 1 PKT PACK PO SCH (15:45)
[2019-07-06] MEDS ORDERED: Iopamidol-370 76% 500 ML 1 ML ONE (16:18)
[2019-07-06] MEDS: HumaLOG 300 UNITS/3 ML VIAL SC PRN (21:33)
[2019-07-07] MEDS: Lactated Ringer's 1,000 ML IV SCH ×4 (00:23→19:39)
[2019-07-07 05:05] LABS: Anion Gap 10 mmol/L (10-20); BUN (Urea Nitrogen) 19 mg/dL (8.4-25.7); Calc. Creatinine Clearance 91 mL/min (70-130); Calcium 8.6 mg/dL (7.8-10.44); Carbon Dioxide 24 mmol/L (22-29); Chloride 108 mmol/L (98-107); Estimated GFR-MDRD 85; Glucose 202 mg/dL (70-105); Potassium 3.8 mmol/L (3.5-5.1); Sodium 138 mmol/L (136-145)
[2019-07-07 05:10] LABS: Band 19 % (5-11); Hemoglobin 11.9 g/dL (14.0-18.0); Hypochromia SLIGHT = 6-15 cells (100X) (0-5/hpf); Lymphocytes 5 % (21-51); MDiff Complete? YES; Mean Corpuscular HGB CONC 33.1 g/dL (32.0-36.0); Mean Corpuscular Hemoglobin 31.4 pg (27.0-31.0); Mean Corpuscular Volume 94.9 fL (78.0-98.0); Mean Platelet Volume 8.2 fL (7.4-10.4); Monocytes 4 % (0-10); Neutrophil 72 % (42-75); Platelet Count 160 thou/uL (130-400); Platelet Morphology Comment Appears Adequate; RBC Distribution Width 15.2 % (11.5-14.5); Red Blood Cell (RBC) Count 3.79 mill/uL (4.70-6.10); White Blood Cell (WBC) Count 13.5 thou/uL (4.8-10.8)
[2019-07-07] MEDS: Hydrocortisone Sod Succ/PF 100 mg/2 ml Vial IVP SCH ×3 (05:45→21:28)
[2019-07-07] MEDS: MEROPENEM 1 GM/50 ML 1 GM in Premix Bag 1 BAG IVPB SCH ×3 (05:45→21:29)
--- NOTE | 2019-07-07 05:46 | PDOC.FM ---
- Subjective Subjective: Pt states he is feeling better today. Denies any fever/chills over night. No acute events overnight. States he saw Dr. Nickerson yesterday and discussed plan of care to which he was agreeable. - Objective Vital Signs & Weight: Vital Signs (12 hours) Temp Pulse Resp BP BP Pulse Ox 07/07/19 04:00 97.4 F L 90 17 99/64 96 07/06/19 23:30 98 F 94 16 95/57 L 94 L 07/06/19 21:00 98 F 97 20 101/54 L 96 07/06/19 20:00 96 Weight Admit Weight 82.1 kg Weight 87.044 kg I&O: 07/05/19 07/06/19 07/07/19 06:59 06:59 06:59 Intake Total 2200 3950 Output Total 1400 2350 Balance 800 1600 Result Diagrams: 07/07/19 04:19 07/07/19 04:19 Phys Exam - Physical Examination Constitutional: NAD HEENT: moist MMs, sclera anicteric Neck: no JVD, full ROM Respiratory: no wheezing, no rales, no rhonchi, clear to auscultation bilateral Cardiovascular: RRR, no significant murmur Gastrointestinal: soft, non-tender, no distention, positive bowel sounds Musculoskeletal: no edema, pulses present Neurological: non-focal, moves all 4 limbs Psychiatric: normal affect, A&O x 3 Skin: no rash, cap refill <2 seconds Dx/Plan (1) Sepsis Code(s): A41.9 - SEPSIS, UNSPECIFIED ORGANISM Status: Acute (2) 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 DISEASE Status: Chronic (3) Diabetes type 2, controlled Code(s): E11.9 - TYPE 2 DIABETES MELLITUS WITHOUT COMPLICATIONS Status: Chronic (4) Bacteremia Code(s): R78.81 - BACTEREMIA Status: Acute - Plan Plan: This is a 59 yo male with a pmh of DM2, HTN, HLD, BPH, Still's disease, RA, chronic anticoagulation who is admitted for sepsis due to e coli bacteremia, yeast UTI #Sepsis due to e coli bacteremia, yeast UTI, possibly also related to not taking his anakinra in the past -Vanc allergy, Broad spectrum abx clinda, cefepime, levaquin, transitioned to ceftriaxone 07/05 -Blood culture positive for e coli; patient's blood culture in the past positive for e coli has been sensitive to ceftriaxone, patient transitioned -sensitivities show burdick-sensative organism -afebrile overnight -S/p bolus, cont maintenance IVF -WBC increased from yesterday - likely from increased steroid dose -Flu neg -CXR neg -UA neg for LE, nitrites, bacteria; positive for yeast, started on fluconazole 07/05 -Dr. Nickerson consulted, changed to meropenam, increasing steroid for stress dose, and resuming anakinra #UTI-yeast -started on fluconazole 07/05 -sensitivities pending, will follow #Adult stills/RA -Continue anakinra -Received stress dose steroids for adrenal suppression from chronic steroid use , on taper #HTN -no home medications -BP stable -will monitor #DM2 -Continue home medications #HLD -Continue atorvastatin Code: Full Prophylaxis: Lovenox, Pepcid Diet: CC Fluids: SL Disposition: inpatient for IV abx, steroids, blood/urine sensitivities pending for transition to PO abx PCP: Dr. Zuniga
[2019-07-07] MEDS: Tamsulosin HCl 0.4 MG CAP PO SCH (08:42)
[2019-07-07] MEDS: Multivitamin W/ Minerals 1 TAB PO SCH (08:42)
[2019-07-07] MEDS: Atorvastatin Calcium 40 MG TAB PO SCH (08:42)
[2019-07-07] MEDS: predniSONE 5 MG TAB PO SCH (08:43)
[2019-07-07] MEDS: Rivaroxaban 10 MG TAB PO SCH (08:43)
[2019-07-07] MEDS: Famotidine 20 MG TAB PO SCH (08:43)
[2019-07-07] MEDS: Ezetimibe 10 MG TAB PO SCH (08:44)
[2019-07-07] MEDS: Folic Acid 1 MG TAB PO SCH (08:44)
[2019-07-07] MEDS: Insulin Glargine 45 UNITS in Pre-Filled Syringe 1 EACH SC SCH (08:44)
[2019-07-07] MEDS: Fluconazole 100 MG TAB PO SCH (10:43)
[2019-07-07] MEDS: HumaLOG 300 UNITS/3 ML VIAL SC PRN ×3 (11:18→21:30)
--- NOTE | 2019-07-07 16:34 | PRG ---
DATE OF SERVICE: 07/07/2019 Please see the note from Dr. Bautista Abreu, for which I agree. The patient was seen, evaluated, discussed, and examined with the residents by bedside. This gentleman came in with fever and weakness and was found to have E. coli sepsis, although we do not really have a definitive source. He is on meropenem. Maybe, I will switch him to p.o. antibiotics, but waiting on ID's opinion on that. Prostate is a little bit enlarged, some BPH type symptoms. I wonder if some of this may be prostatitis as the source. I do not know if we really have a different definite source otherwise. Also, he has yeast UTI. He is on antifungals for that, I believe. Symptom asencio, doing better. We are going to await to see what ID says as far as switching over to p.o. antibiotics and ultimate disposition plan as he may be ready to go home soon. Job ID: [id number]
[2019-07-07] MEDS: ANAKINRA SC SCH (21:27)
[2019-07-08 04:58] LABS: ALT (SGPT) 22 U/L (8-55); AST (SGOT) 20 U/L (5-34); Albumin 2.9 g/dL (3.5-5.0); Alkaline Phosphatase 65 U/L (40-110); Anion Gap 11 mmol/L (10-20); BUN (Urea Nitrogen) 19 mg/dL (8.4-25.7); Bilirubin, Total 0.3 mg/dL (0.2-1.2); Calc. Creatinine Clearance 90 mL/min (70-130); Calcium 8.5 mg/dL (7.8-10.44); Carbon Dioxide 25 mmol/L (22-29); Chloride 109 mmol/L (98-107); Estimated GFR-MDRD 84; Globulin 2.7 g/dL (2.4-3.5); Glucose 263 mg/dL (70-105); Magnesium 2.1 mg/dL (1.6-2.6); Phosphorus 2.5 mg/dL (2.3-4.7); Potassium 3.5 mmol/L (3.5-5.1); Protein, Total 5.6 g/dL (6.0-8.3); Sodium 141 mmol/L (136-145)
[2019-07-08] MEDS: MEROPENEM 1 GM/50 ML 1 GM in Premix Bag 1 BAG IVPB SCH ×2 (05:18→14:09)
[2019-07-08] MEDS: Lactated Ringer's 1,000 ML IV SCH ×2 (05:18→14:09)
[2019-07-08] MEDS: Hydrocortisone Sod Succ/PF 100 mg/2 ml Vial IVP SCH ×3 (05:18→21:13)
[2019-07-08 05:41] LABS: Band 12 % (5-11); Hemoglobin 11.6 g/dL (14.0-18.0); Lymphocytes 12 % (21-51); MDiff Complete? YES; Mean Corpuscular HGB CONC 33.1 g/dL (32.0-36.0); Mean Corpuscular Hemoglobin 31.4 pg (27.0-31.0); Mean Corpuscular Volume 94.8 fL (78.0-98.0); Monocytes 6 % (0-10); Neutrophil 66 % (42-75); Platelet Count 159 thou/uL (130-400); Platelet Morphology Comment Appears Adequate; Promyelocytes 1 % (0-0); RBC Distribution Width 15.2 % (11.5-14.5); RBC Morphology Normal; Reactive Lymphocytes 3 % (0-10); Red Blood Cell (RBC) Count 3.71 mill/uL (4.70-6.10); White Blood Cell (WBC) Count 8.9 thou/uL (4.8-10.8)
--- NOTE | 2019-07-08 06:02 | PDOC.FM ---
- Subjective Subjective: Pt denies any events overnight. States that his breathing continues to improve. Denies any fevers or chills. No dysuria or abdominal pain. - Objective Vital Signs & Weight: Vital Signs (12 hours) Temp Pulse Resp BP Pulse Ox 07/08/19 04:00 97.8 F 90 20 101/60 98 07/07/19 19:37 98 F 96 18 111/63 97 Weight Admit Weight 82.1 kg Weight 87.044 kg I&O: 07/06/19 07/07/19 07/08/19 06:59 06:59 06:59 Intake Total 3950 2380 Output Total 2350 450 Balance 1600 1930 Result Diagrams: 07/08/19 04:10 07/08/19 04:10 Phys Exam - Physical Examination Constitutional: NAD HEENT: moist MMs, sclera anicteric Neck: full ROM Respiratory: no wheezing, no rales, no rhonchi, clear to auscultation bilateral Cardiovascular: RRR, no significant murmur Gastrointestinal: soft, non-tender Musculoskeletal: no edema, pulses present Neurological: non-focal, moves all 4 limbs Psychiatric: normal affect, A&O x 3 Skin: no rash, cap refill <2 seconds Dx/Plan (1) Sepsis Code(s): A41.9 - SEPSIS, UNSPECIFIED ORGANISM Status: Acute (2) 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 DISEASE Status: Chronic (3) Diabetes type 2, controlled Code(s): E11.9 - TYPE 2 DIABETES MELLITUS WITHOUT COMPLICATIONS Status: Chronic (4) Bacteremia Code(s): R78.81 - BACTEREMIA Status: Acute - Plan Plan: This is a 59 yo male with a pmh of DM2, HTN, HLD, BPH, Still's disease, RA, chronic anticoagulation who is admitted for sepsis due to e coli bacteremia, yeast UTI #Sepsis due to e coli bacteremia, yeast UTI, possibly also related to not taking his anakinra in the past -Vanc allergy, Broad spectrum abx clinda, cefepime, levaquin, transitioned to ceftriaxone 07/05 -Blood culture positive for e coli; patient's blood culture in the past positive for e coli has been sensitive to ceftriaxone, patient transitioned -sensitivities show burdick-sensative organism -afebrile overnight -S/p bolus, cont maintenance IVF -WBC increased from yesterday - likely from increased steroid dose -Flu neg -CXR neg -UA neg for LE, nitrites, bacteria; positive for yeast, started on fluconazole 07/05 -Dr. Nickerson consulted, changed to meropenam, increasing steroid for stress dose, and resuming anakinra -Appreciate recs for transitioning abx regimen #UTI-yeast -started on fluconazole 07/05 #Adult stills/RA -Continue anakinra -Received stress dose steroids for adrenal suppression from chronic steroid use , on taper #HTN -no home medications -BP stable -will monitor #DM2 -Continue home medications #HLD -Continue atorvastatin Code: Full Prophylaxis: Lovenox, Pepcid Diet: CC Fluids: SL Disposition: inpatient for IV abx, steroids, pending transition to outpt abx regimen. PCP: Dr. Zuniga
[2019-07-08] MEDS: Folic Acid 1 MG TAB PO SCH (08:23)
[2019-07-08] MEDS: Rivaroxaban 10 MG TAB PO SCH (08:23)
[2019-07-08] MEDS: Atorvastatin Calcium 40 MG TAB PO SCH (08:23)
[2019-07-08] MEDS: Ezetimibe 10 MG TAB PO SCH (08:23)
[2019-07-08] MEDS: Tamsulosin HCl 0.4 MG CAP PO SCH (08:23)
[2019-07-08] MEDS: Famotidine 20 MG TAB PO SCH (08:23)
[2019-07-08] MEDS: predniSONE 5 MG TAB PO SCH (08:23)
[2019-07-08] MEDS: Multivitamin W/ Minerals 1 TAB PO SCH (08:24)
[2019-07-08] MEDS: Insulin Glargine 45 UNITS in Pre-Filled Syringe 1 EACH SC SCH (08:24)
[2019-07-08] MEDS: Fluconazole 100 MG TAB PO SCH (11:02)
[2019-07-08] MEDS: HumaLOG 300 UNITS/3 ML VIAL SC PRN ×3 (11:03→21:21)
--- NOTE | 2019-07-08 13:37 | PRG ---
DATE OF SERVICE: 07/08/2019 Please see the note from Dr. Abreu for which I agree. The patient was seen, evaluated, and discussed with residents and examined at bedside. This gentleman is here for bacteremia, E coli. Still not sure exactly what the source is. He is on meropenem, but his culture looks like it was fairly burdick sensitive by Infectious Disease, but his exam is completely normal. No major changes otherwise and seems fine and so should be able to go out on p.o. antibiotics, and obviously, he is on medicines for diabetes, etc. We will run this by Infectious Disease and let us see what they say. Job ID: [id number]
--- NOTE | 2019-07-08 16:24 | EKG ---
Test Reason : HIGH HR Blood Pressure : / mmHG Vent. Rate : 115 BPM Atrial Rate : 115 BPM P-R Int : 166 ms QRS Dur : 100 ms QT Int : 340 ms P-R-T Axes : 042 -06 -10 degrees QTc Int : 470 ms Sinus tachycardia Nonspecific T wave abnormality Abnormal ECG When compared with ECG of 04-JUL-2019 12:37, (Unconfirmed) No significant change was found Confirmed by DR. Haroldo DE ANDA ([id number]) on 07/08/2019 4:24:32 PM Referred By: DARNELL Confirmed By:DR. Haroldo DE ANDA
[2019-07-08] MEDS: ANAKINRA SC SCH (21:11)
[2019-07-09] MEDS: Lactated Ringer's 1,000 ML IV SCH ×2 (00:49→05:33)
[2019-07-09] MEDS: Hydrocortisone Sod Succ/PF 100 mg/2 ml Vial IVP SCH ×2 (05:33→15:25)
--- NOTE | 2019-07-09 05:43 | PDOC.FM ---
- Subjective Subjective: Pt states he is feeling much better. C/o diarrhea, non-bloody X2 a day since admission. C/o mild SOB. Denies any chest pain. Pt states he "feels swollen." - Objective MAR Reviewed: Yes Vital Signs & Weight: Vital Signs (12 hours) Temp Pulse Resp BP BP Pulse Ox 07/09/19 04:00 97.5 F L 61 18 140/77 100 07/09/19 00:00 20 07/08/19 20:00 98 07/08/19 19:53 97.8 F 80 20 118/71 98 Weight Admit Weight 82.1 kg Weight 91.762 kg I&O: 07/07/19 07/08/19 07/09/19 06:59 06:59 06:59 Intake Total 2380 1800 1800 Output Total 450 650 Balance 1930 1800 1150 Result Diagrams: 07/09/19 06:06 07/09/19 06:06 Phys Exam - Physical Examination Constitutional: NAD HEENT: moist MMs, sclera anicteric Neck: no nodes, no JVD, supple, full ROM Respiratory: no wheezing, no rales, no rhonchi, clear to auscultation bilateral Cardiovascular: RRR, no significant murmur, no rub Gastrointestinal: soft, non-tender, no distention, positive bowel sounds Musculoskeletal: pulses present 2+ pitting edema to ankles, bilaterally. 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 Sepsis due to e coli bacteremia, yeast UTI, possibly also related to not taking his anakinra in the past -Vanc allergy, Broad spectrum abx clinda, cefepime, levaquin, transitioned to ceftriaxone 07/05 -Blood culture positive for e coli; patient's blood culture in the past positive for e coli has been sensitive to ceftriaxone, patient transitioned -sensitivities show burdick-sensitive organism -afebrile overnight -S/p bolus, cont maintenance IVF -WBC increased from yesterday - likely from increased steroid dose -Flu neg -CXR neg -UA neg for LE, nitrites, bacteria; positive for yeast, started on fluconazole 07/05 -Dr. Nickerson consulted, changed to meropenam, increasing steroid for stress dose, and resuming anakinra. D/C meropenam 07/08. -Appreciate recs for transitioning abx regimen - 07/08 transitioned to Levaquin PO for X7 days total. - D/C IVF and transition to oral hydration. Pt tolerating well. 2. UTI-yeast -started on fluconazole 07/05 3. Adult stills/RA -Continue anakinra -Received stress dose steroids for adrenal suppression from chronic steroid use , on taper 4. HTN -no home medications -BP stable -will monitor 5. DM2 -Continue home medications 6. HLD -Continue atorvastatin Code: Full Prophylaxis: Lovenox, Pepcid Diet: CC Fluids: SL Disposition: stable, transitioned to Po antibiotics and oral hydration. PCP: Dr. Zuniga
[2019-07-09 06:57] LABS: Mean Corpuscular HGB CONC 34.1 g/dL (32.0-36.0); Mean Corpuscular Hemoglobin 32.5 pg (27.0-31.0); Mean Corpuscular Volume 95.2 fL (78.0-98.0); Mean Platelet Volume 8.4 fL (7.4-10.4); Platelet Count 185 thou/uL (130-400)
[2019-07-09 07:09] LABS: ALT (SGPT) 22 U/L (8-55); AST (SGOT) 20 U/L (5-34); Albumin 2.9 g/dL (3.5-5.0); Alkaline Phosphatase 61 U/L (40-110); Anion Gap 9 mmol/L (10-20); BUN (Urea Nitrogen) 18 mg/dL (8.4-25.7); Bilirubin, Total 0.3 mg/dL (0.2-1.2); Calc. Creatinine Clearance 91 mL/min (70-130); Calcium 8.4 mg/dL (7.8-10.44); Carbon Dioxide 28 mmol/L (22-29); Chloride 108 mmol/L (98-107); Estimated GFR-MDRD 80; Globulin 2.6 g/dL (2.4-3.5); Glucose 230 mg/dL (70-105); Potassium 3.3 mmol/L (3.5-5.1); Protein, Total 5.5 g/dL (6.0-8.3); Sodium 142 mmol/L (136-145)
[2019-07-09] MEDS ORDERED: Insulin Regular 300 UNITS/3 ML VIAL SC PRN (09:12)
[2019-07-09] MEDS: Ezetimibe 10 MG TAB PO SCH (09:23)
[2019-07-09] MEDS: Tamsulosin HCl 0.4 MG CAP PO SCH (09:23)
[2019-07-09] MEDS: predniSONE 5 MG TAB PO SCH (09:23)
[2019-07-09] MEDS: Rivaroxaban 10 MG TAB PO SCH (09:23)
[2019-07-09] MEDS: Atorvastatin Calcium 40 MG TAB PO SCH (09:23)
[2019-07-09] MEDS: Multivitamin W/ Minerals 1 TAB PO SCH (09:23)
[2019-07-09] MEDS: Folic Acid 1 MG TAB PO SCH (09:23)
[2019-07-09] MEDS: HumaLOG 300 UNITS/3 ML VIAL SC PRN (09:24)
[2019-07-09] MEDS: Insulin Glargine 45 UNITS in Pre-Filled Syringe 1 EACH SC SCH (09:24)
[2019-07-09] MEDS: Famotidine 20 MG TAB PO SCH (09:29)
[2019-07-09 10:05] LABS: Band 4 % (5-11); Lymphocytes 28 % (21-51); MDiff Complete? YES; Metamyelocyte 1 % (0-0); Monocytes 11 % (0-10); Myelocyte 1 % (0-0); Neutrophil 53 % (42-75); Nucleated RBC 2 % (0); RBC Morphology Normal; Reactive Lymphocytes 2 % (0-10)
[2019-07-09] MEDS: Fluconazole 100 MG TAB PO SCH (12:34)
[2019-07-09 16:47] VITALS: BP 148/78; TEMP 97.9
--- NOTE | 2019-07-09 17:28 | PRG ---
DATE OF SERVICE: 07/09/2019 Mr. Knight looks and feels fine this morning. He has an E coli bacteremia, exact source is not known. He can likely be discharged on prolonged oral medications pending input from Infectious Disease. Job ID: [id number]
[2019-07-09] MEDS ORDERED: Insulin Glargine 10 UNITS in Pre-Filled Syringe 1 EACH SC SCH (21:00)
--- NOTE | 2019-07-10 11:48 | DIS ---
DATE OF ADMISSION: 07/04/2019 DATE OF DISCHARGE: 07/09/2019 RESIDENT: Ronit Mcpherson DO DISCHARGE ATTENDING: Derek Suggs MD CONSULTATION: Infectious Disease, Dr. Nickerson. DIAGNOSES: 1. Sepsis secondary to Escherichia coli bacteremia. 2. Yeast urinary tract infection. 3. Adult Still disease. 4. Rheumatoid arthritis. 5. Hypertension. 6. Diabetes mellitus, type 2. 7. Hyperlipidemia. DISCHARGE MEDICATIONS: 1. Acetaminophen 500 mg p.o. q.4 hours p.r.n. for pain. 2. Anakinra 100 mg subcu q.p.m. 3. Lipitor 40 mg p.o. q.a.m. 4. Zetia 10 mg p.o. q.a.m. 5. Pepcid 20 mg p.o. daily. 6. Folic acid 1 mg p.o. daily. 7. Hydrochlorothiazide 25 mg p.o. daily. 8. Lantus 45 units subcutaneous q.a.m. 9. Lantus 10 units at bedtime. 10. Levaquin 750 mg p.o. for 5 days daily. 11. Multivitamin 1 p.o. daily. 12. Xarelto 20 mg p.o. q.a.m. with meals. 13. Tamsulosin 0.4 mg p.o. q.a.m. 14. Prednisone 20 mg for 4 days, 15 mg for 4 days, then taper down to home dose of 10 mg p.o. daily. 15. Januvia 1 tablet p.o. daily. 16. Tramadol 100 mg p.o. q.6 hours p.r.n. for pain. HISTORY OF PRESENT ILLNESS AND HOSPITAL COURSE: Mr. Knight is a 59-year-old male with a history of Adult Still disease, rheumatoid arthritis, and hypertension, came into the emergency department with fever and weakness. He had not been taking his Anakinra for his autoimmune diseases for the past 2 days before this. He was found to have sepsis with E coli bacteremia and UTI, which grew out yeast. The patient was treated with IV antibiotics, sensitivities resulted, he was transitioned to p.o. Levaquin. Dr. Nickerson was consulted. He recommended continuation of Levaquin for 5 days post-discharge and to taper his steroids to his home dose of 10 mg daily. The patient was eager to discharge back to home and agreed with the plan to do so. DISPOSITION: Stable upon discharge. DISCHARGE INSTRUCTIONS: 1. Location: To home. 2. Diet: Heart healthy. 3. Activity: As tolerated. 4. Followup: Follow up with Dr. Aiken in 7 days, the patient's primary care provider. Job ID: [id number]
== END 2019-07-09 16:58 | disposition home or self-care (01) | DRG 872 ==
LOC: ERS 12:10 → T4-A 17:58 → 2NO 07-06 16:53
PROVIDERS: ADMIT Family Medicine; ATTEND Family Medicine
DX: A41.51 Sepsis due to Escherichia coli [E. coli] (principal); N39.0 Urinary tract infection, site not specified; B37.89 Other sites of candidiasis; E87.2 Acidosis; N17.9 Acute kidney failure, unspecified; E11.649 Type 2 diabetes mellitus with hypoglycemia without coma; R65.20 Severe sepsis without septic shock; M06.1 Adult-onset Still's disease; M06.9 Rheumatoid arthritis, unspecified; I10 Essential (primary) hypertension; E78.5 Hyperlipidemia, unspecified; N40.0 Benign prostatic hyperplasia without lower urinary tract symptoms; Z90.49 Acquired absence of other specified parts of digestive tract; Z88.1 Allergy status to other antibiotic agents; Z83.3 Family history of diabetes mellitus; Z82.49 Family history of ischemic heart disease and other diseases of the circulatory system
CPT/HCPCS: 36415; 36416; 71045; 74177; 80048; 80053; 80306; 80307; 81003; 81015; 83605; 83735; 83880; 84100; 84484; 85007; 85025; 85027; 87040; 87045; 87046; 87077; 87086; 87149; 87186; 87324; 87328; 87329; 87427; 87449; 87804; 90471; 90670; 93005; 93010; 93306; 96361; 96365; G0009; J0692; J0696; J1720; J1815; J1956; J2185; J2543; J3490; J7512; Q9967

== ENCOUNTER 2019-08-15 00:23 | Inpatient (IN) | payer MEDICARE ==
[2019-08-15] MEDS ORDERED: metroNIDAZOLE 500 MG/100 ML BAG ONE (00:36)
[2019-08-15] MEDS ORDERED: Cefepime 2 GM VIAL ONE (00:36)
[2019-08-15 00:55] LABS: #Basophils 0.1 thou/uL (0.0-0.2); #Monocytes 0.3 thou/uL (0.11-0.59); #Neutrophils 9.2 thou/uL (1.40-6.50); %Basophils 0.6 % (0.0-1.0); %Eosinophils 0.4 % (0.0-10.0); %Lymphocytes 9.6 % (21.0-51.0); %Monocytes 2.6 % (0.0-10.0); %Neutrophils 86.8 % (42.0-75.0); Hemoglobin 15.4 g/dL (14.0-18.0); Mean Corpuscular HGB CONC 34.3 g/dL (32.0-36.0); Mean Corpuscular Hemoglobin 32.3 pg (27.0-31.0); Mean Corpuscular Volume 94.1 fL (78.0-98.0); Mean Platelet Volume 7.3 fL (7.4-10.4); Platelet Count 189 thou/uL (130-400); RBC Distribution Width 15.3 % (11.5-14.5); Red Blood Cell (RBC) Count 4.76 mill/uL (4.70-6.10); White Blood Cell (WBC) Count 10.6 thou/uL (4.8-10.8)
[2019-08-15 01:01] LABS: PTT 25.5 SEC (22.9-36.1); Prothrombin Time 13.4 SEC (12.0-14.7)
[2019-08-15 01:20] LABS: ALT (SGPT) 28 U/L (8-55); AST (SGOT) 36 U/L (5-34); Albumin 4.3 g/dL (3.5-5.0); Alkaline Phosphatase 82 U/L (40-110); Anion Gap 17 mmol/L (10-20); BUN (Urea Nitrogen) 20 mg/dL (8.4-25.7); Bilirubin, Total 0.7 mg/dL (0.2-1.2); Calc. Creatinine Clearance 0 mL/min (70-130); Calcium 9.3 mg/dL (7.8-10.44); Carbon Dioxide 21 mmol/L (22-29); Chloride 105 mmol/L (98-107); Estimated GFR-MDRD 64; Globulin 2.6 g/dL (2.4-3.5); Glucose 160 mg/dL (70-105); Magnesium 1.7 mg/dL (1.6-2.6); Potassium 3.8 mmol/L (3.5-5.1); Protein, Total 6.9 g/dL (6.0-8.3); Sodium 139 mmol/L (136-145)
[2019-08-15 02:09] LABS: Bacteria/HPF None Seen HPF (None Seen); Bilirubin Negative (Negative); Blood, Urine 1+ (Negative); Clarity Clear (Clear); Glucose, Urine (Dipstick) Greater than 1000 mg/dL (Negative); Leukocyte Negative Leu/uL (Negative); Nitrite Negative (Negative); Protein, Urine (Dipstick) 20 mg/dL (Neg-Trace); RBC/HPF 0-3 HPF (0-3); Squamous Epithelial 0-3 HPF (0-3); Urobilinogen Normal mg/dL (Less than 2); WBC/HPF 0-3 HPF (0-3)
--- NOTE | 2019-08-15 02:33 | PDOC.FPRHP ---
- History of Present Illness Chief Complaint: AMS History of Present Illness: 59 y/o M PMHx Stills disease, DM2, HTN presents to the ED for AMS and fever. Per the ER doc he was AOx1 initially, but at the time of my evaluation he is AOx4. He reports some dysuria and a headache, but otherwise has no symptoms. He reports compliance with his Anakinra. He reports his prednisone dose was recently decreased to 5mg. Of note he has been admitted multiple times for bacteremia and has had E. coli, Staph capitis, MRSA. ED Course: The patient was given 3L NS, Cefepime, and metronidazole in the ED. - Allergies/Adverse Reactions Allergies Allergy/AdvReac Type Severity Reaction Status Date / Time vancomycin Allergy Intermediate Verified 07/04/19 20:01 - Home Medications Medication Instructions Recorded Confirmed Type Atorvastatin Calcium [Lipitor] 40 mg PO QAM 10/18/15 07/04/19 History Anakinra [Kineret] 100 mg SQ QPM 09/01/18 07/04/19 History Ezetimibe [Zetia] 10 mg PO QAM tab 01/03/19 07/04/19 Rx Famotidine [Pepcid] 20 mg PO DAILY tab 01/03/19 07/04/19 Rx Folic Acid [Folvite] 1 mg PO DAILY tab 01/03/19 07/04/19 Rx Insulin Glargine [Lantus] 10 units SC HS vial 01/03/19 07/04/19 Rx Insulin Glargine [Lantus] 45 units SC QAM vial 01/03/19 07/04/19 Rx Multivitamin W/ Minerals 1 tab PO DAILY tab 01/03/19 07/04/19 Rx [Theragran M] Rivaroxaban [Xarelto] 20 mg PO QAM-WM tab 01/03/19 07/04/19 Rx Tamsulosin HCl [Flomax] 0.4 mg PO QAM cap 01/03/19 07/04/19 Rx Acetaminophen [Tylenol Extra 500 mg PO Q4H PRN 02/03/19 07/04/19 History Strength] traMADol HCl [Tramadol HCl] 100 mg PO Q6H PRN 05/30/19 07/04/19 History Hydrochlorothiazide 1 tab PO DAILY 11/17/19 11/17/19 History Acetaminophen [Tylenol Regular 650 mg PO Q4H PRN tab 07/09/19 Rx Strength] Levofloxacin [Levaquin] 750 mg PO 0600 #5 tab 07/09/19 Rx predniSONE 10 mg PO QAM-WM #0 07/09/19 07/04/19 Rx sitaGLIPtin Phosphate [Januvia] 1 tab PO DAILY 07/09/19 07/09/19 History - History PMHx:Adult-Still disease/Rheumatoid arthritis, DM2, HTN PSHx: Cholecystectomy FHx: Denies Social: Alcohol abuse, non-smoker, denies drug abuse PCP: Nelli - Review of Systems General: reports: fever/chills. denies: fatigue Eyes: denies: eye pain, vision changes ENT: denies: nasal congestion, rhinorrhea Respiratory: denies: cough, shortness of breath Cardiovascular: denies: chest pain, edema Gastrointestinal: denies: nausea, vomiting, abdominal pain Genitourinary: reports: dysuria. denies: polyuria Skin: denies: lesions, itching Musculoskeletal: reports: pain, stiffness, swelling, arthritis/arthralgias ( chronic) Neurological: denies: numbness, weakness Psychological: denies: anxiety, depression - Vital signs BP: 101/58, Pulse: 134, Resp: 18, O2 sat: 100 on (Room Air), Temp 104.7 - Physical Exam Constitutional: NAD, awake, alert and oriented, well developed HEENT: normocephalic and atraumatic, EOMI, conjunctiva clear, grossly normal vision, grossly normal hearing Neck: supple, FROM Heart: RRR (tachycardic, 3/6 systolic murmur), pulses present, no edema Lungs: CTAB, no respiratory distress, good air movement, no rales/rhonchi, no wheezing Abdomen: soft, non-tender, bowel sounds present, no masses/distention Musculoskeletal: normal structure, normal tone Neurological: no focal deficit Skin: good turgor, capillary refill <2 seconds Heme/Lymphatic: no unusual bruising or bleeding, no purpura Psychiatric: normal mood and affect, good judgment and insight FMR H&P: Results - Labs Result Diagrams: 08/15/19 06:20 08/15/19 06:20 Lab results: WBC 10.6 thou/uL (4.8-10.8) 08/15/19 00:37 Hgb 15.4 g/dL (14.0-18.0) 08/15/19 00:37 Hct 44.8 % (42.0-52.0) 08/15/19 00:37 MCV 94.1 fL (78.0-98.0) 08/15/19 00:37 Plt Count 189 thou/uL (130-400) 08/15/19 00:37 Neutrophils % 86.8 % (42.0-75.0) H 08/15/19 00:37 Sodium 139 mmol/L (136-145) 08/15/19 00:37 Potassium 3.8 mmol/L (3.5-5.1) 08/15/19 00:37 Chloride 105 mmol/L (98-107) 08/15/19 00:37 Carbon Dioxide 21 mmol/L (22-29) L 08/15/19 00:37 BUN 20 mg/dL (8.4-25.7) 08/15/19 00:37 Creatinine 1.37 mg/dL (0.7-1.3) H 08/15/19 00:37 Glucose 160 mg/dL (70-105) H 08/15/19 00:37 Lactic Acid 2.3 mmol/L (0.5-2.2) H 08/15/19 00:37 Calcium 9.3 mg/dL (7.8-10.44) 08/15/19 00:37 Total Bilirubin 0.7 mg/dL (0.2-1.2) 08/15/19 00:37 AST 36 U/L (5-34) H 08/15/19 00:37 ALT 28 U/L (8-55) 08/15/19 00:37 Alkaline Phosphatase 82 U/L (40-110) 08/15/19 00:37 Serum Total Protein 6.9 g/dL (6.0-8.3) 08/15/19 00:37 Albumin 4.3 g/dL (3.5-5.0) 08/15/19 00:37 Urine Ketones 20 mg/dL (Negative) A 08/15/19 01:47 Urine Blood 1+ (Negative) A 08/15/19 01:47 Urine Nitrite Negative (Negative) 08/15/19 01:47 Ur Leukocyte Esterase Negative Daivd/uL (Negative) 08/15/19 01:47 Urine RBC 0-3 HPF (0-3) 08/15/19 01:47 Urine WBC 0-3 HPF (0-3) 08/15/19 01:47 Ur Squamous Epith Cells 0-3 HPF (0-3) 08/15/19 01:47 Urine Bacteria None Seen HPF (None Seen) 08/15/19 01:47 FMR H&P: A/P - Problem List (1) Sepsis Current Visit: No Status: Acute Code(s): A41.9 - SEPSIS, UNSPECIFIED ORGANISM Qualifiers: Sepsis type: sepsis due to unspecified organism Sepsis acute organ dysfunction status: with acute organ dysfunction Severe sepsis acute organ dysfunction type: encephalopathy Severe sepsis shock status: without septic shock Qualified Code(s): A41.9 - Sepsis, unspecified organism; R65.20 - Severe sepsis without septic shock; G93.40 - Encephalopathy, unspecified (2) Adrenal insufficiency Current Visit: No Status: Chronic Code(s): E27.40 - UNSPECIFIED ADRENOCORTICAL INSUFFICIENCY (3) Adult Still's disease Current Visit: No Status: Chronic Code(s): M06.1 - ADULT-ONSET STILL'S DISEASE Comment: Cont Anakinran and PO steroids.OP Rheumatology follow up (4) BPH (benign prostatic hyperplasia) Current Visit: No Status: Chronic Code(s): N40.0 - BENIGN PROSTATIC HYPERPLASIA WITHOUT LOWER URINRY TRACT SYMP (5) Diabetes type 2, controlled Current Visit: No Status: Chronic Code(s): E11.9 - TYPE 2 DIABETES MELLITUS WITHOUT COMPLICATIONS (6) Essential hypertension Current Visit: No Status: Chronic Code(s): I10 - ESSENTIAL (PRIMARY) HYPERTENSION Comment: controlled.monitor.Pt w Potential for hypotension w Still's disease (7) H/O deep venous thrombosis Current Visit: No Status: Chronic Code(s): Z86.718 - PERSONAL HISTORY OF OTHER VENOUS THROMBOSIS AND EMBOLISM (8) Metabolic encephalopathy Current Visit: No Status: Resolved Code(s): G93.41 - METABOLIC ENCEPHALOPATHY - Plan 1. Sepsis Unknown source, but suspect bacteremia with patients history of recurrent bacteremia 2/2 Anakinra. s/p 4L NS in the ED, cefepime, and metronidazole. LA 2.3. -Continue cefepime and add clinda for MRSA coverage -BCx, UCx -Procal -LR @ 150 -Stress dose steroids due to chronic steroid use -May need to consult Dr. Nickerson as pt has had drug resistant organisms in the past -Pt blood pressures borderline, may need a central line with pressors 2. Acute toxic metabolic encephalopathy, resolving Likely 2/2 Sepsis -Will monitor closely 3. Still Disease -Continue Anakinra -Give stress dose steroids due to chronic use 4. DM2 -Continue home meds -SSI -Accuchecks 5. HTN -Hold home meds as borderline hypotensive at this time 6. h/o DVT -Continue xarelto Disposition/LOS: Admit to IMCU LOS: Likely 2 days Addendum - Attending - Attending Attestation Date/Time: 08/15/192047 I personally evaluated the patient and discussed the management with Dr. Norton this morning in the ER at the time of admission. I agree with the History, Examination, Assessment and Plan documented above with any addition or exceptions noted below.
[2019-08-15] MEDS ORDERED: Ibuprofen 200 MG TAB ONE (02:56)
[2019-08-15] MEDS ORDERED: Dextrose 50% Abboject 50 ML SYRINGE SLOW IVP PRN (03:25)
[2019-08-15] MEDS ORDERED: Dextrose 5% in Water 1,000 ML IV PRN (03:25)
[2019-08-15] MEDS ORDERED: Hydrocortisone Sod Succ/PF 100 mg/2 ml Vial ONE (03:28)
[2019-08-15 03:41] LABS: Lactic Acid 1.3 mmol/L (0.5-2.2)
[2019-08-15] MEDS ORDERED: Lactated Ringer's 1,000 ML IV SCH (04:00)
[2019-08-15] MEDS ORDERED: Norepinephrine 8 MG/0.9% NS 250 ML ONE (04:52)
--- NOTE | 2019-08-15 04:59 | PDOC.BPN ---
- Brief Progress Note Was called by ER who reported BP's in the 70s-80s systolic with some MAPs below 65 after 4L NS ER resident placed a R IJ CVC Started levophed Will admit pt to CCU for septic shock
[2019-08-15 05:40] VITALS: BMI 31.0
[2019-08-15] MEDS: Clindamycin/D5W 600 MG in Premix Bag 1 BAG IVPB SCH ×4 (05:59→21:56)
[2019-08-15] MEDS ORDERED: Norepinephrine 8 MG/0.9% NS 250 ML IVPB SCH (06:15)
[2019-08-15 06:35] LABS: Hemoglobin 13.1 g/dL (14.0-18.0); Mean Corpuscular HGB CONC 33.2 g/dL (32.0-36.0); Mean Corpuscular Hemoglobin 31.6 pg (27.0-31.0); Mean Platelet Volume 7.6 fL (7.4-10.4); Platelet Count 176 thou/uL (130-400); RBC Distribution Width 15.2 % (11.5-14.5); Red Blood Cell (RBC) Count 4.15 mill/uL (4.70-6.10); White Blood Cell (WBC) Count 14.8 thou/uL (4.8-10.8)
[2019-08-15 06:55] LABS: Band 33 % (5-11); Lymphocytes 3 % (21-51); MDiff Complete? YES; Metamyelocyte 1 % (0-0); Monocytes 3 % (0-10); Neutrophil 60 % (42-75)
[2019-08-15 07:01] LABS: Anion Gap 14 mmol/L (10-20); BUN (Urea Nitrogen) 17 mg/dL (8.4-25.7); Calc. Creatinine Clearance 98 mL/min (70-130); Calcium 7.7 mg/dL (7.8-10.44); Carbon Dioxide 15 mmol/L (22-29); Chloride 114 mmol/L (98-107); Estimated GFR-MDRD 90; Glucose 141 mg/dL (70-105); Potassium 3.2 mmol/L (3.5-5.1); Sodium 140 mmol/L (136-145)
[2019-08-15] MEDS: Lactated Ringer's 1,000 ML IV SCH ×3 (07:07→20:04)
--- NOTE | 2019-08-15 08:59 | RAD ---
PORTABLE CHEST: Date: 08/15/19 HISTORY: Central line placement. COMPARISON: Earlier exam of same date. FINDINGS: There has been interval placement of a right-sided central line. Catheter tip overlies the right atri um. No pneumothorax. No other interval change. IMPRESSION: Placement of right-sided central line. No pneumothorax. POS: OFF
[2019-08-15] MEDS ORDERED: Insulin Glargine 45 UNITS in Pre-Filled Syringe 1 EACH SC SCH (09:00)
--- NOTE | 2019-08-15 09:30 | CON ---
DATE OF CONSULTATION: 08/15/2019 CONSULTING PHYSICIAN: [facility]. REASON FOR CONSULTATION: Hypotension. HISTORY OF PRESENT ILLNESS: Mr. Knight is a 59-year-old gentleman, who is well known to me from the past. He presented last night with altered mental status and fever. He has had many such hospitalizations in the past. He feels better, but is currently being supported on a Levophed drip. He denies any cough, congestion, aches, or pains. He said he had been feeling very well after the hospitalization. He says his prednisone was recently decreased from 10 mg to 5 mg. PAST MEDICAL HISTORY: 1. Still's disease. 2. Diabetes mellitus type 2, secondary to chronic steroid use. 3. Hypertension. 4. Multiple episodes of bacteremia. 5. Relative adrenal insufficiency. ALLERGIES: VANCOMYCIN. MEDICATIONS: Prior to admission: 1. Lipitor. 2. Anakinra. 3. Zetia. 4. Pepcid. 5. Folvite. 6. Lantus insulin. 7. Xarelto. 8. Flomax. 9. Acetaminophen. 10. Tramadol. 11. Hydrochlorothiazide. 12. Prednisone 5 mg daily. 13. Januvia. PAST SURGICAL HISTORY: Cholecystectomy. SOCIAL HISTORY: Nonsmoker. Does not consume alcohol. Does not use illicit drugs. REVIEW OF SYSTEMS: Twelve-point review of systems is otherwise negative. PHYSICAL EXAMINATION: VITAL SIGNS: Temperature 98.1, pulse 111, and blood pressure 84/60. He is currently on Levophed drip at 10 mcg/minute. HEENT: Shows cushingoid facial appearance. NECK: No adenopathy or JVD. LUNGS: Clear to auscultation without wheezing or rhonchi. CARDIOVASCULAR: S1-S2 regular without audible murmur. ABDOMEN: Soft and nontender to palpation. EXTREMITIES: No clubbing, cyanosis, or edema. LABORATORY DATA: Sodium 140, potassium 3.2, chloride 114, CO2 of 15, anion gap is 11, BUN 17, creatinine 1.0, and glucose 141. INR 1.0. White blood cell count 14.8, hematocrit 39.4, and platelet count 176. Urinalysis showed significant glucosuria. ASSESSMENT: Hypotension. This is likely secondary to either volume depletion or distributive shock. He does have a history of adrenal insufficiency and has had problems with hypotension in the past when his steroid dose has gone down. Also keep in mind, he has been on Januvia and his kidney situation looks somewhat dry at that time of admission, so he may have been somewhat volume depleted. He has also had episodes of bacteremia in the past. PLAN: I have reviewed the orders, agree with current plan of antibiotics. Stress dose steroids and volume repletion. He needs to remain in the ICU until he is off the Levophed drip. Job ID: [id number]
[2019-08-15] MEDS: Famotidine 20 MG TAB PO SCH (09:32)
[2019-08-15] MEDS: Hydrocortisone Sod Succ/PF 100 mg/2 ml Vial IVP SCH ×3 (09:33→20:41)
[2019-08-15] MEDS: Rivaroxaban 10 MG TAB PO SCH (09:33)
--- NOTE | 2019-08-15 10:01 | CT ---
PRELIMINARY REPORT/[facility]/EMERGENCY AFTER HOURS PROCEDURE: EXAM: CT Head Without Intravenous Contrast. CLINICAL HISTORY: M59 presents to ED for AMS and sepsis. EMS reports family reported pt had been acting weird and rigoberto sierra over everything. EMS stated pt was found sitting in a chair with his pants half way down. EMS rep orted pt was a&o times 1 but now seems to be a&o times 2. TECHNIQUE: Axial computed tomography images of the head/brain without intravenous contrast. COMPARISON: None provided. FINDINGS: BRAIN: No acute intraparenchymal hemorrhage. No mass lesion. No CT evidence for acute territorial inf arct. No midline shift or extra-axial collection. Streak artifact limits evaluation of the posterior fossa. Within the streak artifact, there is a foc al hypodensity within the gary (series 2, image 8) which is indeterminate. Periventricular hypodensity may represent an element of transependymal resorption versus microvascula r ischemic disease. VENTRICLES: Prominence of the lateral ventricles with effacement of the sulci at the vertex may repre sent an element of normal pressure hydrocephalus. ORBITS: The orbits are unremarkable. SINUSES AND MASTOIDS: The paranasal sinuses and mastoid air cells are clear. SOFT TISSUES: No significant facial or scalp soft tissue swelling evident. No radiopaque foreign body is seen. BONES: No acute skull fracture. IMPRESSION: Prominence of the lateral ventricles with effacement of the sulci at the vertex may represent an [place] ent of normal pressure hydrocephalus. Periventricular hypodensity may represent an element of transependymal resorption versus microvascula r ischemic disease. Streak artifact limits evaluation of the posterior fossa. Within the streak artifact, there is a foc al hypodensity within the gary (series 2, image 8) which is indeterminate. MRI may be obtained for f urther evaluation. ELECTRONICALLY SIGNED BY: Danielle Mccann MD Aug 15, 2019 1:30:27 AM [employer] ADVISOR This report is intended for review by the ordering physician only, in accordance of law. If you recei ve this report in error, please call [facility] at [phone]. FINAL REPORT CT BRAIN PERFORMED WITHOUT CONTRAST ENHANCEMENT: Date: 08/15/19 HISTORY: Altered mental status. COMPARISON: 05/29/19 study. FINDINGS: Ventricular and cisternal system shows some atrophy. There is decreased attenuation to the periventri cular white matter. No signs for intracerebral hemorrhage or extra-axial fluid collections. There is mucosal change in the ethmoid air cells. IMPRESSION: 1. No acute intracranial abnormalities. 2. Stable appearing exam. Report in agreement with the preliminary report issued by [facility]. POS: OFF
--- NOTE | 2019-08-15 10:11 | RAD ---
PORTABLE CHEST: Date: 08/15/19 HISTORY: Syncope. COMPARISON: 07/06/19 study. FINDINGS: Heart size is enlarged. Mediastinal structures appear unremarkable. Lungs are clear of infiltrates. N o signs of failure. IMPRESSION: Cardiomegaly. Stable chest. POS: OFF
[2019-08-15] MEDS: Cefepime 2 GM in Sodium Chloride 0.9% 100 ML IVPB SCH (13:04)
[2019-08-15] MEDS ORDERED: Insulin Glargine 10 UNITS in Pre-Filled Syringe 1 EACH SC SCH (21:00)
[2019-08-15] MEDS ORDERED: ANAKINRA SC SCH (21:00)
[2019-08-16] MEDS: Cefepime 2 GM in Sodium Chloride 0.9% 100 ML IVPB SCH ×2 (01:33→14:09)
[2019-08-16] MEDS: Lactated Ringer's 1,000 ML IV SCH ×2 (03:09→09:34)
[2019-08-16] MEDS: Hydrocortisone Sod Succ/PF 100 mg/2 ml Vial IVP SCH ×4 (03:09→21:13)
[2019-08-16 04:33] LABS: Anion Gap 15 mmol/L (10-20); BUN (Urea Nitrogen) 19 mg/dL (8.4-25.7); Calc. Creatinine Clearance 110 mL/min (70-130); Calcium 8.4 mg/dL (7.8-10.44); Carbon Dioxide 16 mmol/L (22-29); Chloride 116 mmol/L (98-107); Estimated GFR-MDRD Greater than 90; Glucose 141 mg/dL (70-105); Sodium 143 mmol/L (136-145)
[2019-08-16] MEDS: Clindamycin/D5W 600 MG in Premix Bag 1 BAG IVPB SCH ×4 (05:23→21:12)
[2019-08-16 05:32] LABS: Band 21 % (5-11); Hemoglobin 11.8 g/dL (14.0-18.0); Lymphocytes 13 % (21-51); MDiff Complete? YES; Mean Corpuscular HGB CONC 32.4 g/dL (32.0-36.0); Mean Corpuscular Hemoglobin 31.2 pg (27.0-31.0); Mean Corpuscular Volume 96.5 fL (78.0-98.0); Mean Platelet Volume 7.3 fL (7.4-10.4); Neutrophil 66 % (42-75); Platelet Count 158 thou/uL (130-400); RBC Distribution Width 15.3 % (11.5-14.5); Red Blood Cell (RBC) Count 3.79 mill/uL (4.70-6.10)
[2019-08-16] MEDS: Famotidine 20 MG TAB PO SCH (07:28)
[2019-08-16] MEDS: Rivaroxaban 10 MG TAB PO SCH (07:28)
--- NOTE | 2019-08-16 07:39 | PDOC.FM ---
- Subjective Subjective: Patient feels well this morning, states he is starting to feel hungry. States he has a sore muscle in his neck from sleeping wrong. No other concerns this morning. - Objective Vital Signs & Weight: Vital Signs (12 hours) Temp Pulse Ox 08/16/19 07:11 100 08/16/19 04:00 98.3 F 08/16/19 00:00 98.2 F 08/15/19 20:00 98.8 F 100 Weight Weight 89.9 kg Most Recent Monitor Data Heart Rate from ECG 91 NIBP 108/62 NIBP BP-Mean 77 Respiration from ECG 32 SpO2 100 I&O: 08/15/19 08/16/19 08/17/19 06:59 06:59 06:59 Intake Total 1050 5271 0 Output Total 200 2995 100 Balance 850 2276 -100 Result Diagrams: 08/16/19 03:40 08/16/19 03:40 Phys Exam - Physical Examination Constitutional: NAD Respiratory: no wheezing, clear to auscultation bilateral Cardiovascular: RRR, no significant murmur Gastrointestinal: soft, non-tender, no distention Musculoskeletal: pulses present, edema present (trace) Neurological: non-focal, moves all 4 limbs Psychiatric: normal affect, A&O x 3 Skin: normal turgor, cap refill <2 seconds Dx/Plan (1) SIRS (systemic inflammatory response syndrome) Code(s): R65.10 - SIRS OF NON-INFECTIOUS ORIGIN W/O ACUTE ORGAN DYSFUNCTION Status: Acute (2) Adrenal insufficiency Code(s): E27.40 - UNSPECIFIED ADRENOCORTICAL INSUFFICIENCY Status: Chronic (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 DISEASE Status: Chronic (4) Diabetes type 2, controlled Code(s): E11.9 - TYPE 2 DIABETES MELLITUS WITHOUT COMPLICATIONS Status: Chronic (5) Dyslipidemia Code(s): E78.5 - HYPERLIPIDEMIA, UNSPECIFIED Status: Chronic (6) Essential hypertension Code(s): I10 - ESSENTIAL (PRIMARY) HYPERTENSION Status: Chronic (7) H/O deep venous thrombosis Code(s): Z86.718 - PERSONAL HISTORY OF OTHER VENOUS THROMBOSIS AND EMBOLISM Status: Chronic (8) Still's disease Code(s): M08.20 - JUVENILE RHEUMATOID ARTHRITIS WITH SYSTEMIC ONSET, UNSP SITE Status: Chronic (9) Acute kidney injury Code(s): N17.9 - ACUTE KIDNEY FAILURE, UNSPECIFIED Status: Acute - Plan Plan: 1. Distributive shock: SIRS unknown source vs Adrenal insufficiency Unknown source, but has hx of recurrent bacteremia 2/2 Anakinra. s/p 4L NS in the ED, cefepime, and metronidazole. LA 2.3. -Continue cefepime, and clinda for MRSA coverage -BCx, UCx pending: NGTD -Procal 0.52 -LR @ 150 -Hx chronic steroids, Steroids recently decreased from 10 to 5 qd. Continue Stress dose steroids -Pressors DC last night, transfer out of [facility] 2. Acute metabolic encephalopathy, resolving -Likely 2/2 Distributive shock -Will monitor closely 3. Still Disease -Continue Anakinra -Continue stress dose steroids due to chronic use 4. DM2 -Lantus reduced to 30 this AM -Mod SSI -Accuchecks 5. HTN -Hold home meds as pressors just discontinued 6. h/o DVT -Continue xarelto Diet: CC Dispo: DC from [facility] now that he is weaned off pressors. Continue antibiotics and await culture results. LOS >2 days. Addendum - Attending - Attending Attestation Date/Time: 08/16/19 1138 I personally evaluated the patient and discussed the management with Dr. Russo I agree with the History, Examination, Assessment and Plan documented above with any addition or exceptions noted below. VSS overnight off pressors. Shock likely related to adrenal insufficiency. Will d/c abx once cultures return negative. keep central line for now in the event patient needs pressors again this hospitalization. likely d/c tomorrow or the day after. Keep on stress dose steroids for 2-3 more days and would then return to prednisone 10 mg. Needs f/u with rheumatology.
[2019-08-16] MEDS: Insulin Glargine 30 UNITS in Pre-Filled Syringe 1 EACH SC SCH (09:23)
[2019-08-16] MEDS: HumaLOG 300 UNITS/3 ML VIAL SC PRN (16:52)
[2019-08-16] MEDS ORDERED: Acetaminophen 325 MG TAB PO PRN (23:29)
[2019-08-16] MEDS ORDERED: HumaLOG 300 UNITS/3 ML VIAL SC PRN (23:30)
[2019-08-17] MEDS ORDERED: HumaLOG 300 UNITS/3 ML VIAL SC PRN (00:42)
[2019-08-17] MEDS: Cefepime 2 GM in Sodium Chloride 0.9% 100 ML IVPB SCH (01:13)
[2019-08-17] MEDS: Clindamycin/D5W 600 MG in Premix Bag 1 BAG IVPB SCH ×2 (03:50→08:16)
[2019-08-17] MEDS: Hydrocortisone Sod Succ/PF 100 mg/2 ml Vial IVP SCH ×2 (03:50→08:16)
[2019-08-17] MEDS: HumaLOG 300 UNITS/3 ML VIAL SC PRN ×2 (06:10→12:12)
[2019-08-17 06:49] LABS: Anion Gap 14 mmol/L (10-20); BUN (Urea Nitrogen) 20 mg/dL (8.4-25.7); Calc. Creatinine Clearance 108 mL/min (70-130); Calcium 8.4 mg/dL (7.8-10.44); Carbon Dioxide 19 mmol/L (22-29); Chloride 112 mmol/L (98-107); Estimated GFR-MDRD Greater than 90; Glucose 187 mg/dL (70-105); Potassium 3.5 mmol/L (3.5-5.1); Sodium 141 mmol/L (136-145)
[2019-08-17 06:50] LABS: Hemoglobin 12.5 g/dL (14.0-18.0); Mean Corpuscular HGB CONC 33.4 g/dL (32.0-36.0); Mean Corpuscular Hemoglobin 31.7 pg (27.0-31.0); Mean Corpuscular Volume 94.9 fL (78.0-98.0); Mean Platelet Volume 7.7 fL (7.4-10.4); Platelet Count 174 thou/uL (130-400); RBC Distribution Width 15.3 % (11.5-14.5); Red Blood Cell (RBC) Count 3.93 mill/uL (4.70-6.10); White Blood Cell (WBC) Count 14.8 thou/uL (4.8-10.8)
[2019-08-17 07:29] LABS: Band 27 % (5-11); Lymphocytes 5 % (21-51); MDiff Complete? YES; Monocytes 5 % (0-10); Neutrophil 63 % (42-75); RBC Morphology Normal
--- NOTE | 2019-08-17 08:00 | PDOC.FM ---
- Subjective Subjective: Pt feels well this AM. Reports ambulating more to regain his strength. He complains of 3 BMs per day, mostly runny. onset was after starting ABX. No melena/hematochezia. Otherwise no acute problems. Denies fever/chills, denies sob/cp. - Objective Vital Signs & Weight: Vital Signs (12 hours) Temp Pulse Resp BP Pulse Ox 08/17/19 05:53 97.7 F 90 16 134/81 99 08/17/19 01:28 98.1 F 99 16 101/66 96 08/16/19 20:57 98.1 F 106 H 16 131/79 98 08/16/19 20:55 98 Weight Weight 90.492 kg Most Recent Monitor Data Heart Rate from ECG 109 NIBP 116/78 NIBP BP-Mean 90 Respiration from ECG 21 SpO2 100 I&O: 08/16/19 08/17/19 08/18/19 06:59 06:59 06:59 Intake Total 5271 800 Output Total 2995 440 Balance 2276 360 Result Diagrams: 08/17/19 06:09 08/17/19 06:09 Phys Exam - Physical Examination Constitutional: NAD HEENT: moist MMs, sclera anicteric Neck: supple, full ROM Respiratory: no wheezing, no rhonchi Cardiovascular: RRR, no significant murmur Gastrointestinal: soft, non-tender Musculoskeletal: pulses present Neurological: normal sensation, moves all 4 limbs Psychiatric: normal affect, A&O x 3 Skin: normal turgor, cap refill <2 seconds Dx/Plan (1) SIRS (systemic inflammatory response syndrome) Code(s): R65.10 - SIRS OF NON-INFECTIOUS ORIGIN W/O ACUTE ORGAN DYSFUNCTION Status: Acute (2) Adrenal insufficiency Code(s): E27.40 - UNSPECIFIED ADRENOCORTICAL INSUFFICIENCY Status: Chronic (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 s/p 4L NS in the ED, cefepime, and metronidazole. LA 2.3. procal 0.52 P-Continue cefepime, and clinda for MRSA coverage -BCx, UCx pending: NGTD, 48hr should result today -LR @ 150 -Hx chronic steroids, Steroids recently decreased from 10 to 5 qd. Continue Stress dose steroids. will discuss taper on rounds Diarrhea A- pt at risk for c. diff 2/2 ABX P- c. diff assay -start lactobacillus daily Acute metabolic encephalopathy -resolved Still Disease -Continue Anakinra -Continue stress dose steroids due to chronic use, plan for taper DM2 -Lantus reduced to 30 this AM -Mod SSI -Accuchecks HTN -Hold home meds as pressors just discontinued. Will likely resume in outpt setting h/o DVT -Continue xarelto Diet: CC Dispo: possibly home today pending negative cultures vs. tomorrow Addendum - Attending - Attending Attestation Date/Time: 08/17/19 1101 I personally evaluated the patient and discussed the management with Dr. Mccall I agree with the History, Examination, Assessment and Plan documented above with any addition or exceptions noted below. Plan to d/c home on steroid taper back to prednisone 10 mg once preliminary cultures return. Loose stools today. C-Diff screen sent but does not clinically sound like C-diff.
[2019-08-17 08:07] VITALS: BP 136/82; TEMP 97.5
[2019-08-17] MEDS: Famotidine 20 MG TAB PO SCH (08:15)
[2019-08-17] MEDS: Rivaroxaban 10 MG TAB PO SCH (08:16)
[2019-08-17] MEDS: Insulin Glargine 30 UNITS in Pre-Filled Syringe 1 EACH SC SCH (08:17)
[2019-08-17] MEDS ORDERED: Lactinex Tablet PO SCH (09:00)
--- NOTE | 2019-08-17 14:16 | PQF ---
LEONID HENDRIXESE [id number] CLINICAL DOCUMENTATION IMPROVEMENT CLARIFICATION FORM: ICD-10 Updated PLEASE DO AN ADDENDUM TO THE PROGRESS NOTE WITH ANY DOCUMENTATION UPDATES OR ADDITIONS AND CARRY THROUGH TO DC SUMMARY. THANK YOU. DATE: 08/17/2019 ATTN: DR. Baltazar COLINDRES Please exercise your independent, professional judgment in responding to the clarification form. Clinical indicators are provided on the bottom of this form for your review. Please check appropriate box(es): [ ] Sepsis due to: Bacteremia [ ] Sepsis NOT due to : Bacteremia [ x] SIRS due to non-infectious process (please specify etiology) adrenal insufficiency [ x] with organ dysfunction [ ] without organ dysfunction [ ] Severe sepsis with acute organ dysfunction of: __ (Examples: respiratory failure, encephalopathy, acute kidney failure, other) [ ] Septic Shock [ x ] Other diagnosis ___distributive shock [ ] Unable to determine In addition, please specify: Present on Admission (POA): [ x ] Yes [ ] No [ ] Unable to determine For continuity of documentation, please document condition throughout progress notes and discharge summary. Thank You. CLINICAL INDICATORS - SIGNS / SYMPTOMS / LABS / RESULTS AND LOCATION IN MR 08/15 WBC 14.8 LACTIC ACID 2.3 08/16 WBC 18.0 08/17 WBC 14.8 08/15 ED REPORT : P 117-142, R 18-38, BP 69/46-117/52, TEMP 104.7, PHYSICIAN FINAL DX : SEPSIS, AMS 08/15 H&P (AFSANEH) HPI : OF NOTE HE HAS BEEN ADMITTED MULTIPLE TIMES FOR BACTEREMIA AND HAS HAD E.COLI. STAPH CAPITIS, MRSA. A/P: 1). SEPSIS, SEVERE , UNKNOWN SOURCE, BUT SUSPECT BACTEREMIA WITH PT'S HISTORY OF RECURRENT BACTEREMIA 2/2 ANAKINRA. 08/16 PN (SHARI) DX/PLAN: 1). SIRS W/O ACUTE ORGAN DYSFUNCTION 08/17 PN (BERNADINE) DX/PLAN: 1). SIRS W/O ACUTE ORGAN DYSFUNCTION RISK: RECENT ADMISSION FOR SEPSIS, ( ED REPORT/HPI) 08/15 HX RECURRENT BACTEREMIA, DX DM (PN/BUSE) 08/16 TREATMENTS: SERIAL LABS 08/15-PRESENT BLOOD/URINE CULTURES ( 08/15) CLEOCIN IV (08/15- PRESENT) MAXIPIME IV (08/15- PRESENT) THANK YOU! KAVITHA (This form is maintained as a part of the permanent medical record) 2014 elicit, [employer]. All Rights Reserved [email or web address] [email or web address] [phone] MTDD
--- NOTE | 2019-08-20 09:35 | DIS ---
DATE OF ADMISSION: 08/15/2019 DATE OF DISCHARGE: 08/17/2019 ADMITTING ATTENDING: Itz Ko MD DISCHARGE ATTENDING: Phan Bullock MD RESIDENT: Ant Mccall MD CONSULTS: Pulmonology, Dr. Jonel Styles. PROCEDURES: 1. On 08/15/2019, brain CT; impression, prominence of the left ventricles with effacement of the sulci. 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 Periventricular hypodensity may represent an element of transependymal resorption versus microvascular ischemic disease. Streak artifact limits evaluation of the posterior fossa within the streak artifact. There is a focal hypodensity within the gary, which is indeterminate. MRI may be obtained for further evaluation; impression; no acute intracranial abnormalities. Stable exam. 2. On 08/15/2019, chest x-ray; impression, cardiomegaly, stable chest. 3. On 08/15/2019, repeat chest x-ray; placement of right-sided central line. No pneumothorax. DISCHARGE MEDICATIONS: 1. Atorvastatin 40 mg p.o. q.a.m. 2. Anakinra 100 mg subcutaneous q.p.m. 3. Ezetimibe 10 mg p.o. q.a.m. 4. Famotidine 20 mg p.o. daily. 5. Folic acid 1 mg p.o. daily. 6. Multivitamin. 7. Xarelto 20 mg p.o. q.a.m. 8. Flomax 0.4 mg p.o. q.a.m. 9. Tramadol 100 mg p.o. q.6 hours p.r.n., resumed at home. 10. Hydrochlorothiazide 25 mg p.o. daily. 11. Januvia one tablet p.o. daily. 12. Prednisone taper over one week. 13. Lactobacillus. 14. Insulin glargine 30 units subcutaneous q.a.m. 15. Prednisone 10 mg p.o. daily, resumed after prednisone taper. Discontinued medications: 1. Insulin glargine 45 units subcutaneous q.a.m. 2. Insulin glargine 10 units subcutaneous at bedtime. 3. Levaquin 750 mg p.o. daily. PRIMARY DIAGNOSIS: Distributive shock, secondary to adrenal insufficiency. SECONDARY DIAGNOSES: Diarrhea, metabolic encephalopathy, Still disease, type 2 diabetes, hypertension, and history of deep venous thrombosis. HISTORY OF PRESENT ILLNESS/HOSPITAL COURSE: This is a 59-year-old male who presented to the emergency room in shock. He was admitted and treated for distributive shock, thought to be secondary to sepsis versus his known history of adrenal insufficiency. The patient was put on cefepime and metronidazole in the emergency department and switched to cefepime and clindamycin for improved MRSA coverage. The patient showed great improvement with Solu-Cortef and antibiotics after blood and urine cultures resulted negative at 48 hours, and the patient showed market clinical improvement. He was deemed stable for discharge home with a steroid taper and plan to continue his baseline steroids until he could follow up with his operations developer. DISPOSITION: Stable. DISCHARGE INSTRUCTIONS: 1. Location: Home. 2. Activity: As tolerated. 3. Followup: Follow up with primary care physician, Dr. Abdoulaye Aiken, in 7 days and also with operations developer. 4. Diet: Diabetic diet. Job ID: [id number]
== END 2019-08-17 14:30 | disposition home or self-care (01) | DRG 643 ==
LOC: ERS 00:23 → CCU 05:24 → T4-B 08-16 11:16
PROVIDERS: ADMIT Family Medicine; ATTEND Family Medicine
PROC: 3E033XZ Introduction of Vasopressor into Peripheral Vein, Percutaneous Approach (ICD-10-PCS; principal; 2019-08-15)
PROC: 02HV33Z Insertion of Infusion Device into Superior Vena Cava, Percutaneous Approach (ICD-10-PCS; 2019-08-15)
DX: E27.40 Unspecified adrenocortical insufficiency (principal); G92 Toxic encephalopathy; R57.8 Other shock; R65.10 Systemic inflammatory response syndrome (SIRS) of non-infectious origin without acute organ dysfunction; E11.9 Type 2 diabetes mellitus without complications; I10 Essential (primary) hypertension; E78.5 Hyperlipidemia, unspecified; M06.1 Adult-onset Still's disease; M06.9 Rheumatoid arthritis, unspecified; N40.0 Benign prostatic hyperplasia without lower urinary tract symptoms; Z88.1 Allergy status to other antibiotic agents; Z79.4 Long term (current) use of insulin; Z79.51 Long term (current) use of inhaled steroids; Z79.899 Other long term (current) drug therapy; Z86.718 Personal history of other venous thrombosis and embolism; Z98.1 Arthrodesis status; Z79.02 Long term (current) use of antithrombotics/antiplatelets; Z90.49 Acquired absence of other specified parts of digestive tract; F10.10 Alcohol abuse, uncomplicated
CPT/HCPCS: 36415; 36416; 36556; 51701; 70450; 71045; 80048; 80053; 81003; 81015; 83605; 83735; 84145; 84484; 85025; 85610; 85730; 87040; 87086; 87804; 93005; 96361; 96365; 96367; 96375; 99292; J0692; J1720; J1815; J3490

== ENCOUNTER 2019-09-02 01:28 | Inpatient (IN) | payer MEDICARE ==
[2019-09-02] MEDS ORDERED: Cefepime 2 GM VIAL ONE (01:49)
[2019-09-02] MEDS ORDERED: Clindamycin/D5W 900 mg/50 ml Premix Bag ONE (01:49)
[2019-09-02] MEDS ORDERED: Hydrocortisone Sod Succ/PF 100 mg/2 ml Vial ONE (01:49)
[2019-09-02 02:23] LABS: #Basophils 0.2 thou/uL (0.0-0.2); #Lymphocytes 1.8 thou/uL (1.20-3.40); #Monocytes 0.9 thou/uL (0.11-0.59); #Neutrophils 7.9 thou/uL (1.40-6.50); %Basophils 1.4 % (0.0-1.0); %Eosinophils 0.4 % (0.0-10.0); %Lymphocytes 16.3 % (21.0-51.0); %Monocytes 8.7 % (0.0-10.0); %Neutrophils 73.1 % (42.0-75.0); Hemoglobin 14.4 g/dL (14.0-18.0); Mean Corpuscular HGB CONC 33.3 g/dL (32.0-36.0); Mean Corpuscular Volume 96.2 fL (78.0-98.0); Mean Platelet Volume 7.7 fL (7.4-10.4); Platelet Count 213 thou/uL (130-400); RBC Distribution Width 15.3 % (11.5-14.5); Red Blood Cell (RBC) Count 4.51 mill/uL (4.70-6.10); White Blood Cell (WBC) Count 10.7 thou/uL (4.8-10.8)
[2019-09-02 02:45] LABS: ALT (SGPT) 18 U/L (8-55); AST (SGOT) 42 U/L (5-34); Albumin 3.1 g/dL (3.5-5.0); Alkaline Phosphatase 68 U/L (40-110); Anion Gap 18 mmol/L (10-20); BUN (Urea Nitrogen) 13 mg/dL (8.4-25.7); Bilirubin, Total 0.5 mg/dL (0.2-1.2); Calc. Creatinine Clearance 0 mL/min (70-130); Calcium 8.1 mg/dL (7.8-10.44); Carbon Dioxide 19 mmol/L (22-29); Chloride 106 mmol/L (98-107); Estimated GFR-MDRD 48; Globulin 2.7 g/dL (2.4-3.5); Glucose 100 mg/dL (70-105); Potassium 3.7 mmol/L (3.5-5.1); Protein, Total 5.8 g/dL (6.0-8.3); Sodium 139 mmol/L (136-145)
[2019-09-02] MEDS ORDERED: Norepinephrine 8 MG/0.9% NS 250 ML ONE (03:08)
--- NOTE | 2019-09-02 03:28 | PDOC.FPRHP ---
- History of Present Illness Chief Complaint: Fever, Chills History of Present Illness: 59 yo w/ pmh of Mohsen العلي who was recently in the hospital here a few weeks ago presents with c/c of fever and chills. Pt reports that he is also having pain in his groin at this time. Describes pain as pressure. States it just started yesterday. Rates pain as minimal. Pt reports rash on his shoulders. States that it itches at times. Pt reports that he missed a few doses of his anakinra medication. Pt at this time is somewhat weak and not an accurate historian. ED Course: In the ED, he was found to be hypotensive. Central line was placed and he was started on Levophed. He was given 2500 cc of NS. Clinda and Cefepime were given. Hydrocortisone 100 mg IV was given. Cre: 1.77 and bicarb is 19. Trop was 0.026. - Allergies/Adverse Reactions Allergies Allergy/AdvReac Type Severity Reaction Status Date / Time vancomycin Allergy Intermediate Verified 09/02/19 06:11 - Home Medications Medication Instructions Recorded Confirmed Type Atorvastatin Calcium [Lipitor] 40 mg PO QAM 10/18/15 09/02/19 History Anakinra [Kineret] 100 mg SQ QPM 09/01/18 09/02/19 History Ezetimibe [Zetia] 10 mg PO QAM tab 01/03/19 09/02/19 Rx Famotidine [Pepcid] 20 mg PO DAILY tab 01/03/19 09/02/19 Rx Folic Acid [Folvite] 1 mg PO DAILY tab 01/03/19 09/02/19 Rx Multivitamin W/ Minerals 1 tab PO DAILY tab 01/03/19 09/02/19 Rx [Theragran M] Rivaroxaban [Xarelto] 20 mg PO QAM-WM tab 01/03/19 09/02/19 Rx Tamsulosin HCl [Flomax] 0.4 mg PO QAM cap 01/03/19 09/02/19 Rx Acetaminophen [Tylenol Extra 500 mg PO Q4H PRN 02/03/19 09/02/19 History Strength] traMADol HCl [Tramadol HCl] 100 mg PO Q6H PRN 05/30/19 09/02/19 History Hydrochlorothiazide 1 tab PO DAILY 07/08/19 09/02/19 History predniSONE 10 mg PO QAM-WM #0 07/09/19 09/02/19 Rx sitaGLIPtin Phosphate [Januvia] 1 tab PO DAILY 07/09/19 09/02/19 History Insulin Glargine [Lantus] 30 units SC QAM #0 vial 08/17/19 09/02/19 Rx Lactobacillus [Floranex] 1 tab PO DAILY #30 tab 08/17/19 09/02/19 Rx Prednisone [predniSONE 10 mg 10 mg PO ASDIR 7 Days #16 tab.ds.pk 08/17/19 Rx Dosepak] - History PMHx:Adult-Still disease/Rheumatoid arthritis, DM2, HTN, Hx DVT, Adrenal Insufficiency PSHx: Cholecystectomy, L. Shoulder surgery FHx: Father- diabetes Social: Alcohol abuse, non-smoker, denies drug abuse PCP: Nelli Pt reports being full code at this time. - Review of Systems General: reports: fever/chills. denies: weight/appetite/sleep changes, night sweats Eyes: denies: eye pain, vision changes ENT: denies: nasal congestion, rhinorrhea Respiratory: denies: cough, congestion, shortness of breath, exercise intolerance Cardiovascular: denies: chest pain, palpitation, edema, paroxysmal nocturnal dyspnea Gastrointestinal: denies: nausea, vomiting, diarrhea, constipation, abdominal pain, GI bleeding Genitourinary: denies: incontinence, dysuria, polyuria, discharge Skin: denies: rashes, lesions, jaundice Musculoskeletal: reports: other (reports pressure like pain in his groin). denies: pain, tenderness, stiffness, swelling Neurological: reports: weakness. denies: numbness, syncope, seizure Psychological: denies: anxiety, depression - Vital signs BP: 68/50 HR: 146 RR: 24 Tmax: 99.6 Pox: 95% on RA Wt: 85.3 kg - Physical Exam Constitutional: awake, alert and oriented HEENT: normocephalic and atraumatic, EOMI, conjunctiva clear, MMM, oropharynx clear Neck: trachea midline, no LAD Chest: no-tender to palpation -Chest: pustular rash on present on upper chest Heart: RRR, normal S1/S2, no murmurs/rubs/gallops Lungs: CTAB, good air movement, no rales/rhonchi, no wheezing Abdomen: soft, non-tender, bowel sounds present Musculoskeletal: normal structure, ROM grossly normal -Musculoskeletal: UE: 4/5 LE: 4/5 Neurological: no focal deficit -Skin: Pustular rash on chest and back -Psychiatric: Flat affect, depressed mood FMR H&P: Results - Labs Result Diagrams: 09/02/19 06:03 09/02/19 06:03 Lab results: WBC 10.7 thou/uL (4.8-10.8) 09/02/19 02:12 Hgb 14.4 g/dL (14.0-18.0) 09/02/19 02:12 Hct 43.4 % (42.0-52.0) 09/02/19 02:12 MCV 96.2 fL (78.0-98.0) 09/02/19 02:12 Plt Count 213 thou/uL (130-400) 09/02/19 02:12 Neutrophils % 73.1 % (42.0-75.0) 09/02/19 02:12 Sodium 139 mmol/L (136-145) 09/02/19 02:12 Potassium 3.7 mmol/L (3.5-5.1) 09/02/19 02:12 Chloride 106 mmol/L (98-107) 09/02/19 02:12 Carbon Dioxide 19 mmol/L (22-29) L 09/02/19 02:12 BUN 13 mg/dL (8.4-25.7) 09/02/19 02:12 Creatinine 1.77 mg/dL (0.7-1.3) H 09/02/19 02:12 Glucose 100 mg/dL (70-105) 09/02/19 02:12 Calcium 8.1 mg/dL (7.8-10.44) 09/02/19 02:12 Total Bilirubin 0.5 mg/dL (0.2-1.2) 09/02/19 02:12 AST 42 U/L (5-34) H 09/02/19 02:12 ALT 18 U/L (8-55) 09/02/19 02:12 Alkaline Phosphatase 68 U/L (40-110) 09/02/19 02:12 Serum Total Protein 5.8 g/dL (6.0-8.3) L 09/02/19 02:12 Albumin 3.1 g/dL (3.5-5.0) L 09/02/19 02:12 FMR H&P: A/P - Problem List (1) Acute kidney injury Current Visit: No Status: Acute Code(s): N17.9 - ACUTE KIDNEY FAILURE, UNSPECIFIED (2) Sepsis Current Visit: No Status: Acute Code(s): A41.9 - SEPSIS, UNSPECIFIED ORGANISM Qualifiers: Sepsis type: sepsis due to unspecified organism Sepsis acute organ dysfunction status: with acute organ dysfunction Severe sepsis acute organ dysfunction type: encephalopathy Severe sepsis shock status: without septic shock Qualified Code(s): A41.9 - Sepsis, unspecified organism; R65.20 - Severe sepsis without septic shock; G93.40 - Encephalopathy, unspecified (3) Adrenal insufficiency Current Visit: No Status: Chronic Code(s): E27.40 - UNSPECIFIED ADRENOCORTICAL INSUFFICIENCY (4) Adult Still's disease Current Visit: No Status: Chronic Code(s): M06.1 - ADULT-ONSET STILL'S DISEASE Comment: Cont Anakinran and PO steroids.OP Rheumatology follow up (5) Diabetes type 2, controlled Current Visit: No Status: Chronic Code(s): E11.9 - TYPE 2 DIABETES MELLITUS WITHOUT COMPLICATIONS (6) Dyslipidemia Current Visit: No Status: Chronic Code(s): E78.5 - HYPERLIPIDEMIA, UNSPECIFIED (7) Essential hypertension Current Visit: No Status: Chronic Code(s): I10 - ESSENTIAL (PRIMARY) HYPERTENSION Comment: controlled.monitor.Pt w Potential for hypotension w Still's disease (8) Hypotension Current Visit: No Status: Resolved Comment: Likely multifactorial in conjuction with adrenal insufficiciency and iatrogenic influence, titrate home BP regimen (9) Hx of deep venous thrombosis Current Visit: Yes Status: Acute Code(s): Z86.718 - PERSONAL HISTORY OF OTHER VENOUS THROMBOSIS AND EMBOLISM - Plan This is a 59 yo male with a PMH of Adult stills/RA, HTN, HLD, DM2 1. Sepsis with no obvious sources at this time, likely related to not taking his Anakinra in the past -Broad spectrum abx clinda, cefepime -S/P 30ml/kg fluid bolus, continue maintenance fluids 120 NS -WBC of 10.7 with bandemia -CXR unchanged from last admission, official read pending -UA: Neg -BCx & UCx pending -LA: 2.2 -Procal: pending 2. Adult stills/RA -Continue anakinra -Stress dose steroids for 24 hours 2/2 adrenal suppression from chronic steroid use -Taper after 24H 3. Hypertension Currently Hypotensive on Levophed -Hold home meds at this time 4. CARL Cre: 1.7, baseline: 1.0 -Appears to have normal renal function at baseline -Will monitor after fluids, likely from dehydration 5. DM2 -Continue home Insulin and januvia -Mild SSI -Accuchecks ACHS 6. HLD -Continue atorvastatin 7. Hx of DVT On Xarelto 8. Adrenal Insufficiency prednisone 10 mg daily -S/p Hydrocortisone 100 mg -Hydrocortisone 50 mg Q6H for 24H -Transition to taper -Cortisol: pending Code: Full DVT Prophylaxis: Xarelto GI Prophylaxis: Pepcid Diet: CC Fluids: Central Line, LR 120 PCP: Dr. Zuniga Disposition: CCU inpt, LOS 2-3 days. Pt was seen and examined with Dr. Villegas and plan was discussed. FMR H&P: Upper Level - Pertinent history I was present with Dr. Boyce during the HPI. I scribed the above document. I made edits as needed. See above for details. Should be noted patient was not a very accurate historian. - Pertinent findings Pt is somewhat weak and tired. Pt is not a very accurate historian. Cardio: Sinus Tach, no murmurs or gallops. Resp: CTA-B, no wheezes or crackles Skin: Pt has mild rash on chest and shoulders. No acute abscess or infection noted. Abdomen: Non-distended. NTTP, no masses noted. - Plan Date/Time: 09/02/19 0704 IMiguel, PGY-3 have evaluated this patient and agree with findings/ plan as outlined by newsroom intern resident. Pertinent changes/additions are listed here. See above for full details. I made edits to above plan as needed. At this time pt is in septic shock 2/2 unknown source but likely partly in result in not taking his anikinra medication for his stills disease. Pt has been admitted multiple times in the last few months and seems to be the same thing. At this time will get blood and urine cx. Started on cefepime and clindamycin for MRSA coverage. Consider ID consult if patient does not improve. Addendum - Attending - Attending Attestation Date/Time: 09/02/19 5693 I personally evaluated the patient and discussed the management with Dr. Melanie Boyce /Raul patient was seen in ER at time of admission I agree with the History, Examination, Assessment and Plan documented above with any addition or exceptions noted below. 59 yo AA diabetic male with history of Stills dz ,RA,and adrenal insufficiency. Patient present to ER after being off medications with septic picture his hypotension did not respond to fluids and he had central line and pressor started in ER. The patient was given stress dose steroids as well. Patient with very similar presentation about one month ago. Patient with notable positive flu A will recommend add tamiflu albeit possibly out of the 48 hour window of symptoms.
[2019-09-02] MEDS ORDERED: CCU Electrolyte Replacement 1 EACH FS ONE (04:21)
[2019-09-02] MEDS ORDERED: Dextrose 50% Abboject 50 ML SYRINGE SLOW IVP PRN (04:21)
[2019-09-02] MEDS ORDERED: Dextrose 5% in Water 1,000 ML IV PRN (04:21)
[2019-09-02 04:38] LABS: Bacteria/HPF None Seen HPF (None Seen); Bilirubin Negative (Negative); Blood, Urine Negative (Negative); Clarity Clear (Clear); Glucose, Urine (Dipstick) Greater than 1000 mg/dL (Negative); Leukocyte Negative Leu/uL (Negative); Nitrite Negative (Negative); Protein, Urine (Dipstick) 50 mg/dL (Neg-Trace); RBC/HPF 0-3 HPF (0-3); Sperm/HPF Rare HPF (None Seen); Squamous Epithelial 0-3 HPF (0-3); Urobilinogen Normal mg/dL (Less than 2); WBC/HPF 0-3 HPF (0-3)
[2019-09-02] MEDS ORDERED: Magnesium Oxide 400 MG TAB PO PRN ×2 (04:40)
[2019-09-02] MEDS ORDERED: CCU ELECTROLYTE REPLACEMENT PROTOCOL FS PRN (04:40)
[2019-09-02] MEDS ORDERED: Potassium Chloride 40 MEQ in Sodium Chloride 0.9% 250 ML 250 ML IVPB PRN (04:40)
[2019-09-02] MEDS ORDERED: Potassium Phosphate 15 MMOL in Sodium Chloride 0.9% 250 ML 250 ML IV PRN (04:40)
[2019-09-02] MEDS ORDERED: PHOS-NAK 1 PKT PACK PO PRN ×2 (04:40)
[2019-09-02] MEDS ORDERED: Magnesium 2 GM/50 ML 2 GM in Premix Bag 1 BAG IVPB PRN (04:40)
[2019-09-02] MEDS ORDERED: Potassium Phosphate 9 MMOL in Sodium Chloride 0.9% 100 ML IVPB PRN (04:40)
[2019-09-02] MEDS ORDERED: Potassium Chloride 20 MEQ TAB PO PRN (04:40)
[2019-09-02] MEDS ORDERED: Potassium Chloride 40 MEQ in Premix Bag 1 BAG IVPB PRN (04:40)
[2019-09-02] MEDS ORDERED: Potassium Phosphate 12 MMOL in Sodium Chloride 0.9% 250 ML 250 ML IV PRN (04:40)
[2019-09-02 06:16] VITALS: BMI 28.8
[2019-09-02 06:22] LABS: Hemoglobin 13.8 g/dL (14.0-18.0); Mean Corpuscular HGB CONC 32.2 g/dL (32.0-36.0); Mean Corpuscular Hemoglobin 30.8 pg (27.0-31.0); Mean Corpuscular Volume 95.8 fL (78.0-98.0); Mean Platelet Volume 8.1 fL (7.4-10.4); Platelet Count 232 thou/uL (130-400); RBC Distribution Width 15.3 % (11.5-14.5); Red Blood Cell (RBC) Count 4.49 mill/uL (4.70-6.10)
[2019-09-02] MEDS: Norepinephrine 8 MG/0.9% NS 250 ML IVPB SCH ×2 (06:28→11:35)
[2019-09-02] MEDS: Hydrocortisone Sod Succ/PF 100 mg/2 ml Vial IVP SCH ×4 (06:29→23:54)
[2019-09-02] MEDS: Sodium Chloride 0.9% 1,000 ML IV SCH ×3 (06:30→21:23)
[2019-09-02 06:34] LABS: Band 33 % (5-11); Lymphocytes 8 % (21-51); MDiff Complete? YES; Metamyelocyte 1 % (0-0); Monocytes 9 % (0-10); Neutrophil 49 % (42-75); Platelet Morphology Comment Appears Adequate
[2019-09-02 06:43] LABS: ALT (SGPT) 17 U/L (8-55); AST (SGOT) 40 U/L (5-34); Albumin 3.1 g/dL (3.5-5.0); Alkaline Phosphatase 66 U/L (40-110); Anion Gap 20 mmol/L (10-20); BUN (Urea Nitrogen) 14 mg/dL (8.4-25.7); Bilirubin, Total 0.6 mg/dL (0.2-1.2); Calc. Creatinine Clearance 56 mL/min (70-130); Carbon Dioxide 14 mmol/L (22-29); Chloride 109 mmol/L (98-107); Estimated GFR-MDRD 51; Globulin 2.3 g/dL (2.4-3.5); Glucose 134 mg/dL (70-105); Potassium 3.9 mmol/L (3.5-5.1); Protein, Total 5.4 g/dL (6.0-8.3); Sodium 139 mmol/L (136-145)
[2019-09-02 06:47] LABS: Troponin I 0.017 ng/mL (< 0.028)
[2019-09-02 07:21] LABS: Bilirubin Negative (Negative); Blood, Urine 1+ (Negative); Clarity Clear (Clear); Glucose, Urine (Dipstick) Greater than 1000 mg/dL (Negative); Leukocyte Negative Leu/uL (Negative); Nitrite Negative (Negative); Protein, Urine (Dipstick) 30 mg/dL (Neg-Trace); RBC/HPF 0-3 HPF (0-3); Squamous Epithelial 0-3 HPF (0-3); Urobilinogen Normal mg/dL (Less than 2); WBC/HPF 0-3 HPF (0-3)
[2019-09-02 07:34] LABS: Bacteria/HPF 1+ HPF (None Seen)
--- NOTE | 2019-09-02 08:30 | RAD ---
XR Chest 1 View Portable History: Chest pain Comparison: Chest radiograph July 2019 right IJ central venous catheter tip projects over the Findings: Cavoatrial junction. Heart size is enlarged. Mild pulmonary venous congestion. No pneumotho rax. No significant effusion. Impression: 1. Right IJ central venous catheter tip projects over the cavoatrial junction. 2. Cardiomegaly with mild pulmonary venous congestion.
[2019-09-02] MEDS: Famotidine 20 MG TAB PO SCH (09:21)
[2019-09-02] MEDS: Oseltamivir 75 MG CAP PO SCH ×2 (09:21→21:15)
[2019-09-02] MEDS: Ezetimibe 10 MG TAB PO SCH (09:21)
[2019-09-02] MEDS: Rivaroxaban 10 MG TAB PO SCH (09:21)
[2019-09-02] MEDS: Atorvastatin Calcium 40 MG TAB PO SCH (09:22)
[2019-09-02] MEDS: Alogliptin 25 MG TAB PO SCH (09:22)
[2019-09-02] MEDS ORDERED: predniSONE 20 MG TAB PO SCH (11:00)
[2019-09-02] MEDS: Clindamycin/D5W 900 MG in Premix Bag 1 BAG IVPB SCH ×2 (11:34→21:15)
[2019-09-02] MEDS: Insulin Glargine 30 UNITS in Pre-Filled Syringe 1 EACH SC SCH (13:15)
[2019-09-02] MEDS: Cefepime 2 GM in Sodium Chloride 0.9% 100 ML IVPB SCH (14:00)
[2019-09-02] MEDS: HumaLOG 300 UNITS/3 ML VIAL SC PRN ×2 (16:05→21:19)
[2019-09-02] MEDS ORDERED: ANAKINRA 100 MG SCH (21:00)
[2019-09-03] MEDS: Cefepime 2 GM in Sodium Chloride 0.9% 100 ML IVPB SCH ×2 (03:51→15:25)
[2019-09-03] MEDS: Clindamycin/D5W 900 MG in Premix Bag 1 BAG IVPB SCH ×3 (03:51→20:31)
[2019-09-03] MEDS: Acetaminophen 500 MG TAB PO PRN (04:23)
--- NOTE | 2019-09-03 06:24 | PDOC.FM ---
- Subjective Subjective: NAEO. Reports feeling well, much better. Levophed turned off this morning - Objective MAR Reviewed: Yes Vital Signs & Weight: Vital Signs (12 hours) Temp Pulse Ox 09/03/19 04:00 98.1 F 09/03/19 00:00 97.8 F 09/02/19 19:15 100 09/02/19 19:00 97.7 F 09/02/19 18:37 100 Weight Weight 83.4 kg Most Recent Monitor Data Heart Rate from ECG 101 NIBP 102/64 NIBP BP-Mean 76 Respiration from ECG 17 SpO2 97 I&O: 09/01/19 09/02/19 09/03/19 06:59 06:59 06:59 Intake Total 2786 Output Total 200 4955 Balance -200 -2169 Result Diagrams: 09/02/19 06:03 09/02/19 06:03 Phys Exam - Physical Examination Constitutional: NAD HEENT: PERRLA, moist MMs Respiratory: no wheezing, clear to auscultation bilateral Cardiovascular: RRR, no significant murmur Gastrointestinal: soft, non-tender Musculoskeletal: no edema Neurological: non-focal, moves all 4 limbs Skin: cap refill <2 seconds Deviation from normal: rash on upper body Dx/Plan (1) 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 Septic shock 2/2 influenza vs. adrenal insuffienciency -Sepsis syndrome has resolved - IV Clinda and cefepime, pending blood and urine cx ( UA with bacteriuria) -Continue tamiflu -Trend procal -Has been off of levophed gtt since AM, if BPs stable consider transfer our later today -CM consult for aid with anakinra 2. Adult stills/RA -Continue anakinra -s/p 24 hour solucortef stress dosing, starting 2 week prednisone taper today 4. CARL, improved 1.7-> 1.67 -continue LR, AM BMP 5. DM2 -Continue home Insulin and januvia -Mild SSI -Accuchecks ACHS 6. HLD -Continue atorvastatin 7. Hx of DVT On Xarelto 8. Adrenal Insufficiency prednisone 10 mg daily -S/p Hydrocortisone 100 mg -Hydrocortisone 50 mg Q6H for 24H -Taper starting today Lines: R IJ Dispo: >2 midnights Addendum - Attending - Attending Attestation Date/Time: 09/03/19 7314 I personally evaluated the patient and discussed the management with Dr. Thomas. I agree with the History, Examination, Assessment and Plan documented above with any addition or exceptions noted below.
[2019-09-03] MEDS: Ezetimibe 10 MG TAB PO SCH (08:02)
[2019-09-03] MEDS: Alogliptin 25 MG TAB PO SCH (08:02)
[2019-09-03] MEDS: Atorvastatin Calcium 40 MG TAB PO SCH (08:02)
[2019-09-03] MEDS: Rivaroxaban 10 MG TAB PO SCH (08:03)
[2019-09-03] MEDS: Famotidine 20 MG TAB PO SCH (08:03)
[2019-09-03] MEDS: predniSONE 20 MG TAB PO SCH (08:03)
[2019-09-03] MEDS: Oseltamivir 75 MG CAP PO SCH ×2 (08:04→20:31)
[2019-09-03] MEDS: Insulin Glargine 30 UNITS in Pre-Filled Syringe 1 EACH SC SCH (08:05)
--- NOTE | 2019-09-03 08:05 | CON ---
DATE OF CONSULTATION: HISTORY OF PRESENT ILLNESS: Stephani Knight is a 59-year-old gentleman, who presented to the hospital with confusion, shortness of breath, cough. Unclear why he came to the hospital, except he was feeling bad. He was hypertensive in the ER. His blood pressure was 68/50. His respirations are 26, pulse 146, saturations 90% on room air. Given IV fluids, started on broad-spectrum antibiotics including stress dose of steroid. This morning, he is somewhat better, still coughing, still somewhat confused, but no shortness of breath. His sputum is green. PAST MEDICAL HISTORY: Pertinent for longstanding history of diabetes, hypertension, Still's disease. PAST SURGICAL HISTORY: Previous surgeries including multiple left shoulder, left knee, cervical spinal fusion, cholecystectomy. SOCIAL HISTORY: Alcohol, none. Tobacco none. History of multiple admissions in the hospital, recurrent hypertension, and sepsis like syndrome with bacteremia. Probably aggravated by his Still's disease. HOME MEDICATIONS: Includes, 1. Tramadol. 2. Januvia. 3. Prednisone 10. 4. Flomax. 5. Xarelto 20. 6. Insulin. 7. Hydrochlorothiazide. 8. Pepcid. 9. Zetia. 10. Lipitor. 11. Kineret 100 .. He is now started on broad-spectrum antibiotics including clindamycin maximum, which I agree. REVIEW OF SYSTEMS: Other ten-point negative. PHYSICAL EXAMINATION: GENERAL: Awake, alert, and responsive. VITAL SIGNS: Blood pressure 95/60, temperature 97, pulse 113, respirations 20. CHEST: No wheezing or crackles. CARDIAC: Normal S1 and S2. No gallops. ABDOMEN: No masses. LABORATORY DATA: White count 26.5, H and H 13 and 43, platelet count is normal. Lytes are normal. Creatinine 1.67, slightly elevated suggesting a prerenal component. AST is 40. Influenza A was positive. Agree with broad-spectrum antibiotics. IMPRESSION: Influenza A, hypertension, rule out Sepsis, Still's disease, diabetes, renal failure. PLAN: I agree with present regime. I have added Tamiflu. Continue with aggressive hydration. Continue observation in the ICU. Once he is stabilized, he can be transferred to medical floor. This is a consultation note of 70 minutes, 50% direct patient care. Job ID: [id number]
--- NOTE | 2019-09-03 08:11 | PRG ---
DATE OF SERVICE: 09/03/2019 SUBJECTIVE: Mr. Knight feels better today. He is off the Levophed drip as of few minutes ago. OBJECTIVE: VITAL SIGNS: On exam, temperature is 98.1, pulse 87, blood pressure 95/58, and O2 saturation 97%. GENERAL: He appears in no distress. HEENT: Unremarkable. NECK: Without adenopathy or JVD. LUNGS: Clear. CARDIAC: S1 and S2. Regular. ABDOMEN: Soft. EXTREMITIES: No edema. LABORATORY DATA: No new labs were done today. ASSESSMENT: 1. Influenza A. 2. This patient has extremely brittle blood pressures that seem to be very sensitive to changes in his health and multiple studies in the past that confirmed relative adrenal insufficiency. RECOMMENDATIONS: 1. I would continue the hydrocortisone. 2. Restart his Still's disease medication when he brings it from home. 3. Continue Tamiflu. 4. Consider consolidation of antibiotics if 48-hour cultures are negative. 5. Can transfer to the floor if he can maintain his blood pressure off the Levophed. Job ID: [id number]
[2019-09-03] MEDS: Sodium Chloride 0.9% 1,000 ML IV SCH ×2 (08:52→15:26)
[2019-09-03] MEDS: HumaLOG 300 UNITS/3 ML VIAL SC PRN ×3 (11:29→20:41)
[2019-09-03 17:06] VITALS: BP 85/56
[2019-09-03] MEDS ORDERED: ANAKINRA 100 MG SCH (21:00)
[2019-09-04] MEDS: Sodium Chloride 0.9% 1,000 ML IV SCH ×2 (02:46→08:16)
[2019-09-04] MEDS: Cefepime 2 GM in Sodium Chloride 0.9% 100 ML IVPB SCH (02:47)
[2019-09-04] MEDS: Clindamycin/D5W 900 MG in Premix Bag 1 BAG IVPB SCH ×2 (04:32→11:48)
[2019-09-04] MEDS: Acetaminophen 500 MG TAB PO PRN (05:49)
[2019-09-04 07:21] LABS: Mean Corpuscular HGB CONC 32.8 g/dL (32.0-36.0); Mean Corpuscular Hemoglobin 31.4 pg (27.0-31.0); Mean Corpuscular Volume 95.7 fL (78.0-98.0); Mean Platelet Volume 8.1 fL (7.4-10.4); Platelet Count 163 thou/uL (130-400); RBC Distribution Width 15.5 % (11.5-14.5); Red Blood Cell (RBC) Count 3.52 mill/uL (4.70-6.10); White Blood Cell (WBC) Count 14.2 thou/uL (4.8-10.8)
[2019-09-04 07:35] LABS: Anion Gap 10 mmol/L (10-20); BUN (Urea Nitrogen) 16 mg/dL (8.4-25.7); Calc. Creatinine Clearance 98 mL/min (70-130); Calcium 7.9 mg/dL (7.8-10.44); Carbon Dioxide 20 mmol/L (22-29); Chloride 116 mmol/L (98-107); Estimated GFR-MDRD Greater than 90; Glucose 126 mg/dL (70-105); Potassium 3.3 mmol/L (3.5-5.1); Sodium 143 mmol/L (136-145)
[2019-09-04 08:02] LABS: Band 12 % (5-11); Lymphocytes 15 % (21-51); MDiff Complete? YES; Monocytes 3 % (0-10); Neutrophil 70 % (42-75); Platelet Morphology Comment Appears Adequate; RBC Morphology Normal
[2019-09-04] MEDS: Rivaroxaban 10 MG TAB PO SCH (08:15)
[2019-09-04] MEDS: Alogliptin 25 MG TAB PO SCH (08:15)
[2019-09-04] MEDS: Ezetimibe 10 MG TAB PO SCH (08:15)
[2019-09-04] MEDS: Oseltamivir 75 MG CAP PO SCH (08:16)
[2019-09-04] MEDS: Atorvastatin Calcium 40 MG TAB PO SCH (08:16)
[2019-09-04] MEDS: predniSONE 20 MG TAB PO SCH (08:16)
[2019-09-04] MEDS: Famotidine 20 MG TAB PO SCH (08:16)
[2019-09-04] MEDS: Insulin Glargine 30 UNITS in Pre-Filled Syringe 1 EACH SC SCH (08:18)
[2019-09-04] MEDS: HumaLOG 300 UNITS/3 ML VIAL SC PRN ×2 (08:21→11:54)
--- NOTE | 2019-09-04 09:01 | PRG ---
DATE OF SERVICE: 09/04/2019 SUBJECTIVE: He was successfully weaned off the Levophed yesterday and has not had a recurrence of his hypotension. He feels good and wants to go home. OBJECTIVE: VITAL SIGNS: Temperature 98.2, pulse 109, blood pressure 121/73. Intake 4432, output 3120. HEENT: Cushingoid. NECK: No adenopathy or JVD. CHEST: Clear. CARDIAC: S1 and S2. Regular. ABDOMEN: Soft. EXTREMITIES: No edema. LABORATORY DATA: White blood cell count 14.2, hematocrit 33.7, and platelet count 163. Sodium 143, potassium 3.3, chloride 116, CO2 of 20, BUN 16, creatinine 0.9, glucose 126. ASSESSMENT: 1. Influenza. 2. Still disease. 3. Adrenal insufficiency. PLAN: I think a lot of issue with hypotension is him or someone else trying to taper him completely off steroids. As long as he has been on steroids, I do not think that he should ever come off any lower than a dose of 15 mg a day of prednisone. He is stable for discharge. We will follow as needed. Job ID: [id number]
[2019-09-04] MEDS ORDERED: Potassium Chloride 20 MEQ TAB PO SCH (11:15)
--- NOTE | 2019-09-04 11:21 | PDOC.FM ---
- Subjective Subjective: Feels much improved, ready to go home. No concerns at this time. - Objective MAR Reviewed: Yes Vital Signs & Weight: Vital Signs (12 hours) Temp Pulse Ox 09/04/19 08:48 99 09/04/19 08:00 98 F 09/04/19 04:00 98.2 F Weight Weight 83.4 kg Most Recent Monitor Data Heart Rate from ECG 109 NIBP 115/69 NIBP BP-Mean 84 Respiration from ECG 29 SpO2 98 I&O: 09/03/19 09/04/19 09/05/19 06:59 06:59 06:59 Intake Total 4063.7 4432 300 Output Total 5200 3120 0 Balance -1136.3 1312 300 Result Diagrams: 09/04/19 06:52 09/04/19 06:53 Phys Exam - Physical Examination Constitutional: NAD HEENT: PERRLA, moist MMs Respiratory: no wheezing, clear to auscultation bilateral Cardiovascular: RRR, no significant murmur Gastrointestinal: soft Musculoskeletal: no edema Neurological: non-focal, moves all 4 limbs Psychiatric: normal affect, A&O x 3 Dx/Plan (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 Septic shock 2/2 influenza vs. adrenal insuffienciency -Sepsis syndrome has resolved - IV Clinda and cefepime, pending blood and urine cx ( UA with bacteriuria) -Continue tamiflu, d/c abx pending blood cx are negative. Not likely bacterial PNA in light of positive source, no focal findings on CXR, no sputum production -Trend procal -Has been off of levophed gtt since AM, if BPs stable consider transfer our later today -CM consult for aid with anakinra 2. Adult stills/RA -Continue anakinra -s/p 24 hour solucortef stress dosing, starting 2 week prednisone taper today 4. CARL-resp;shankar 1.7-> 1.67 -continue LR, AM BMP 5. DM2 -Continue home Insulin and januvia -Mild SSI -Accuchecks [facility] -Inc insulin 6. HLD -Continue atorvastatin 7. Hx of DVT On Xarelto 8. Adrenal Insufficiency-resolved Lines: R IJ Dispo: >2 midnights, home today pending blood cs Addendum - Attending - Attending Attestation Date/Time: 09/04/19 6309 I personally evaluated the patient and discussed the management with Dr. Thomas. I agree with the History, Examination, Assessment and Plan documented above with any addition or exceptions noted below.
[2019-09-04 12:35] VITALS: TEMP 97.8
--- NOTE | 2019-09-05 05:24 | DIS ---
DATE OF ADMISSION: 09/02/2019 DATE OF DISCHARGE: 09/04/2019 ADMITTING ATTENDING: Dr. En Villegas. DISCHARGE ATTENDING: Itz Ko MD. RESIDENT: Cynthia Thomas, PGY-2 CONSULTATIONS: Pulmonology, Dr. Styles. PRIMARY DIAGNOSES: 1. Hypotensive shock secondary to sepsis from influenza versus adrenal insufficiency. 2. Adult Still's disease. 3. Acute kidney injury, resolved. 4. Chronic steroid dependence. 5. Insulin-dependent diabetes mellitus 2. 6. Hyperlipidemia. PROCEDURES AND IMAGING: Chest x-ray, cardiomegaly with mild pulmonary venous congestion. DISCHARGE MEDICATIONS: New medications include; 1. Tamiflu 75 mg p.o. b.i.d. for 3 more days. 2. Prednisone taper 40 mg x2 days, 30 mg x4 days, 20 mg x4 days, then 10 mg p.o. daily indefinitely. Resumed home medications: 1. Atorvastatin 40 mg p.o. q.a.m. 2. Anakinra 100 mg subcu q.p.m. 3. Zetia 10 mg p.o. q.a.m. 4. Pepcid 20 mg p.o. daily. 5. Folic acid 1 mg p.o. daily. 6. Multivitamin one tab p.o. daily. 7. Xarelto 20 mg p.o. q.a.m. with meals. 8. Flomax 0.4 mg p.o. q.a.m. 9. Acetaminophen. 10. Tramadol 100 mg p.o. q.6 hours p.r.n. for pain. 11. Hydrochlorothiazide 25 mg one tab p.o. daily. 12. Januvia one tab p.o. daily. 13. Prednisone 10 mg p.o. q.a.m. daily. 14. Lactobacillus. 15. Lantus 30 units subcu q.a.m. HISTORY OF PRESENT ILLNESS/HOSPITAL COURSE: Mr. Stephani Knight is a 59-year-old male with adult Still's disease who came to the hospital for fevers and chills. He was found to be hypotensive despite adequate fluid resuscitation and was thus started on Levophed. He tested positive for influenza. He was originally admitted for severe sepsis shock secondary to influenza. 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 The patient revealed that every time his studio set up worker weans down his prednisone, this usually happens. He was recently hospitalized a month ago for the exact same thing. He was treated for influenza with Tamiflu and successfully weaned off the drip. Blood cultures resulted negative. It is likely that hypotensive shock was indeed due to the adrenal insufficiency since he responded to stress dosing of steroids. The patient will likely need to be on indefinite steroids for quite some time, but recommended a followup with his studio set up worker and further discuss this. Aside from this hospital course was otherwise uncomplicated. He recovered well and was sent out on a high-dose steroid taper over the next 2 weeks in addition to Tamiflu. No indication for antibiotics in light of negative cultures and lab findings suggestive of a non-bacterial source. He has appointments to follow up with both his hard metals hand engraver and his studio set up worker both on September 17 of this year. DISPOSITION: Stable. DISCHARGE INSTRUCTIONS: 1. Location: Home. 2. Diet: Diabetic diet. 3. Activity: Ad reji as tolerated, continue physical therapy exercise since patient declined home health PT. 4. Followup: a. Please follow up with studio set up worker and hard metals hand engraver on September 17. b. Please follow up with PCP, Dr. Aiken, this week. Job ID: [id number]
[2019-09-06] MEDS ORDERED: predniSONE 20 MG TAB PO SCH (08:00)
[2019-09-10] MEDS ORDERED: predniSONE 20 MG TAB PO SCH (08:00)
== END 2019-09-04 14:00 | disposition home or self-care (01) | DRG 871 ==
LOC: ERS 01:28 → CCU 05:42
PROVIDERS: ADMIT Family Medicine; ATTEND Emergency Medicine
DX: A41.9 Sepsis, unspecified organism (principal); R65.21 Severe sepsis with septic shock; R57.8 Other shock; N17.9 Acute kidney failure, unspecified; E27.40 Unspecified adrenocortical insufficiency; G93.40 Encephalopathy, unspecified; Z88.1 Allergy status to other antibiotic agents; Z79.899 Other long term (current) drug therapy; Z79.4 Long term (current) use of insulin; I10 Essential (primary) hypertension; Z90.49 Acquired absence of other specified parts of digestive tract; M06.1 Adult-onset Still's disease; E11.9 Type 2 diabetes mellitus without complications; E78.5 Hyperlipidemia, unspecified; Z86.718 Personal history of other venous thrombosis and embolism; J10.1 Influenza due to other identified influenza virus with other respiratory manifestations; Z79.01 Long term (current) use of anticoagulants
CPT/HCPCS: 36415; 36416; 71045; 80048; 80053; 81003; 81015; 82533; 83605; 83735; 83880; 84145; 84484; 85025; 87040; 87086; 87804; 93005; J0692; J1720; J1815; J3490; J7512; P9045

== ENCOUNTER 2019-09-14 18:42 | Inpatient (IN) | payer MEDICARE ==
[~2019-09-14 18:42] MED LIST: Iopamidol-370 76% 500 ML 1 ML ONE
[2019-09-14] MEDS ORDERED: Cefepime 2 GM VIAL ONE (19:13)
[2019-09-14 19:26] LABS: Hemoglobin 14.2 g/dL (14.0-18.0); Mean Corpuscular HGB CONC 32.3 g/dL (32.0-36.0); Mean Corpuscular Hemoglobin 29.8 pg (27.0-31.0); Mean Corpuscular Volume 92.3 fL (78.0-98.0); Mean Platelet Volume 7.9 fL (7.4-10.4); Platelet Count 268 thou/uL (130-400); RBC Distribution Width 15.2 % (11.5-14.5); Red Blood Cell (RBC) Count 4.77 mill/uL (4.70-6.10); White Blood Cell (WBC) Count 16.8 thou/uL (4.8-10.8)
--- NOTE | 2019-09-14 19:36 | RAD ---
EXAM: CHEST ONE VIEW HISTORY: Cough. COMPARISON: 09/02/2019 FINDINGS: Right internal jugular vein central venous catheter has been removed. Cardiac silhouette is magnified by projection but stable in size and does appear mildly enlarged. There is accentuation of the bronchovascular markings due to shallow depth of inspiration and portable technique. However, no cons olidation or pleural fluid is identified. Right glenohumeral osteoarthropathy is present. Postsurgical changes left shoulder are noted as well as postsurgical changes lower cervical spine. IMPRESSION: 1. Cardiomegaly. 2. Accentuation of bronchovascular markings which is likely reflective of the shallow depth of inspir ation and portable technique. 3. No consolidation or pleural fluid is seen.
[2019-09-14 19:48] LABS: ALT (SGPT) 20 U/L (8-55); AST (SGOT) 35 U/L (5-34); Albumin 3.9 g/dL (3.5-5.0); Alkaline Phosphatase 87 U/L (40-110); Anion Gap 19 mmol/L (10-20); BUN (Urea Nitrogen) 19 mg/dL (8.4-25.7); Bilirubin, Total 0.6 mg/dL (0.2-1.2); Calc. Creatinine Clearance 0 mL/min (70-130); Calcium 9.4 mg/dL (7.8-10.44); Carbon Dioxide 21 mmol/L (22-29); Chloride 103 mmol/L (98-107); Estimated GFR-MDRD 65; Globulin 3.5 g/dL (2.4-3.5); Glucose 166 mg/dL (70-105); Potassium 4.4 mmol/L (3.5-5.1); Protein, Total 7.4 g/dL (6.0-8.3); Sodium 139 mmol/L (136-145)
[2019-09-14 19:49] LABS: Band 22 % (5-11); Lymphocytes 14 % (21-51); MDiff Complete? YES; Metamyelocyte 1 % (0-0); Monocytes 4 % (0-10); Neutrophil 58 % (42-75); Platelet Morphology Comment Appears Adequate; RBC Morphology Normal; Vacuoles SLIGHT
--- NOTE | 2019-09-14 19:49 | CT ---
CT HEAD WITHOUT IV CONTRAST COMPARISON: 05/29/2019 and 08/15/2019 HISTORY: Altered mental status. TECHNIQUE: Axial CT imaging at 5 mm intervals from vertex through skull base without contrast FINDINGS: There is patient motion on this examination. Images were repeated. There is decreased attenuation in the periventricular white matter which is nonspecific but stable wh en compared to prior studies and may be reflective of chronic small vessel ischemic changes. No acute cortical infarction or hemorrhage is identified. There is mild cerebral volume loss. The ventricles are mildly prominent but stable compared to prior exams and likely related to greater central cerebral atrophy. There is no evidence of an acute infarction, hemorrhage, mass effect, or midline shift. Mucosal thickening is present in a few posterior ethmoid air cells. Mastoid air cells are clear Osseous structures appear intact. Dense vascular calcifications are again seen in the carotid siphons . IMPRESSION: 1. No acute intracranial abnormality demonstrated. 2. Chronic small vessel ischemic changes and cerebral volume loss.
[2019-09-14 20:14] LABS: Bilirubin Negative (Negative); Blood, Urine Trace (Negative); Clarity Clear (Clear); Glucose, Urine (Dipstick) Greater than 1000 mg/dL (Negative); Leukocyte 250 Leu/uL (Negative); Nitrite Negative (Negative); Protein, Urine (Dipstick) 20 mg/dL (Neg-Trace); Squamous Epithelial 0-3 HPF (0-3); Urobilinogen Normal mg/dL (Less than 2); WBC/HPF 21-50 HPF (0-3)
[2019-09-14 20:17] LABS: Bacteria/HPF 2+ HPF (None Seen); Yeast-Budding 2+ HPF (None Seen); Yeast-Hyphae Rare HPF (None Seen)
[2019-09-14] MEDS ORDERED: Linezolid 600 MG in Premix Bag 1 BAG IVPB SCH (21:15)
--- NOTE | 2019-09-14 21:39 | PDOC.FPRHP ---
- History of Present Illness Chief Complaint: altered mental status History of Present Illness: This pleasant 59-yo M presents to ED by EMS for altered mental status. Pt was recently hospitalized for respiratory illness of influenza a couple of weeks ago. Has had persistent cough since returning home and some chills. No pain or any other symptoms. Patient currently is AxO x 4 and is poor historian. He does not really know why he is here in the hospital. Reported had fever of 103 F. ED Course: Sepsis protocol. Received linezolid (because of vanc allergy), cefepime, and levaquin for suspected PNA and UTI. - Allergies/Adverse Reactions Allergies Allergy/AdvReac Type Severity Reaction Status Date / Time vancomycin Allergy Intermediate Verified 09/15/19 00:47 - Home Medications Medication Instructions Recorded Confirmed Type Atorvastatin Calcium [Lipitor] 40 mg PO QAM 10/18/15 09/14/19 History Anakinra [Kineret] 100 mg SQ QPM 09/01/18 09/14/19 History Ezetimibe [Zetia] 10 mg PO QAM tab 01/03/19 09/14/19 Rx Famotidine [Pepcid] 20 mg PO DAILY tab 01/03/19 09/14/19 Rx Folic Acid [Folvite] 1 mg PO DAILY tab 01/03/19 09/14/19 Rx Multivitamin W/ Minerals 1 tab PO DAILY tab 01/03/19 09/14/19 Rx [Theragran M] Rivaroxaban [Xarelto] 20 mg PO QAM-WM tab 01/03/19 09/14/19 Rx Tamsulosin HCl [Flomax] 0.4 mg PO QAM cap 01/03/19 09/14/19 Rx Acetaminophen [Tylenol Extra 500 mg PO Q4H PRN 02/03/19 09/14/19 History Strength] traMADol HCl [Tramadol HCl] 100 mg PO Q6H PRN 05/30/19 09/14/19 History Hydrochlorothiazide 1 tab PO DAILY 07/08/19 09/14/19 History predniSONE 10 mg PO QAM-WM #0 07/09/19 09/14/19 Rx sitaGLIPtin Phosphate [Januvia] 1 tab PO DAILY 07/09/19 09/14/19 History Insulin Glargine [Lantus] 30 units SC QAM #0 vial 08/17/19 09/14/19 Rx Lactobacillus [Floranex] 1 tab PO DAILY #30 tab 08/17/19 09/14/19 Rx - History PMHx: T2DM, HTN, HLD, Adult Still's disease, adrenal insufficiency on chronic steroids PSHx: FHx: - noncontributory Social: - denies smoking, drugs - drinks alcohol socially - Review of Systems General: reports: fever/chills. denies: weight/appetite/sleep changes Eyes: denies: eye pain ENT: denies: nasal congestion Respiratory: reports: cough. denies: shortness of breath Cardiovascular: denies: chest pain, edema Gastrointestinal: denies: nausea, vomiting, diarrhea Genitourinary: denies: dysuria Skin: denies: rashes, lesions Musculoskeletal: denies: pain Neurological: denies: syncope, seizure Psychological: denies: anxiety, depression - Vital signs BP: 111/63, Pulse: 122, Resp: 18, Pain: 0, O2 sat: 100 on (Room Air), Time: 09/14 21:28 - Physical Exam Constitutional: NAD, awake, alert and oriented, well developed HEENT: normocephalic and atraumatic, PERRLA, EOMI, conjunctiva clear, no scleral icterus, grossly normal vision, grossly normal hearing, good dention Heart: RRR, normal S1/S2, no murmurs/rubs/gallops Lungs: CTAB, no respiratory distress, good air movement Abdomen: soft, non-tender, bowel sounds present Musculoskeletal: normal structure Neurological: no focal deficit Skin: no rash/lesions, good turgor Heme/Lymphatic: no unusual bruising or bleeding Psychiatric: normal mood and affect, intact recent and remote memory FMR H&P: Results - Labs Result Diagrams: 09/15/19 03:42 09/15/19 03:42 Lab results: WBC 16.8 thou/uL (4.8-10.8) H 09/14/19 19:20 Hgb 14.2 g/dL (14.0-18.0) 09/14/19 19:20 Hct 44.0 % (42.0-52.0) 09/14/19 19:20 MCV 92.3 fL (78.0-98.0) 09/14/19 19:20 Plt Count 268 thou/uL (130-400) 09/14/19 19:20 Band Neuts % (Manual) 22 % (5-11) H 09/14/19 19:20 Sodium 139 mmol/L (136-145) 09/14/19 19:20 Potassium 4.4 mmol/L (3.5-5.1) 09/14/19 19:20 Chloride 103 mmol/L (98-107) 09/14/19 19:20 Carbon Dioxide 21 mmol/L (22-29) L 09/14/19 19:20 BUN 19 mg/dL (8.4-25.7) 09/14/19 19:20 Creatinine 1.36 mg/dL (0.7-1.3) H 09/14/19 19:20 Glucose 166 mg/dL (70-105) H 09/14/19 19:20 Lactic Acid 1.2 mmol/L (0.5-2.2) 09/14/19 19:20 Calcium 9.4 mg/dL (7.8-10.44) 09/14/19 19:20 Total Bilirubin 0.6 mg/dL (0.2-1.2) 09/14/19 19:20 AST 35 U/L (5-34) H 09/14/19 19:20 ALT 20 U/L (8-55) 09/14/19 19:20 Alkaline Phosphatase 87 U/L (40-110) 09/14/19 19:20 B-Natriuretic Peptide 10.8 pg/mL (0-100) 09/14/19 19:33 Serum Total Protein 7.4 g/dL (6.0-8.3) 09/14/19 19:20 Albumin 3.9 g/dL (3.5-5.0) 09/14/19 19:20 Urine Ketones 60 mg/dL (Negative) A 09/14/19 19:55 Urine Blood Trace (Negative) A 09/14/19 19:55 Urine Nitrite Negative (Negative) 09/14/19 19:55 Ur Leukocyte Esterase 250 David/uL (Negative) A 09/14/19 19:55 Urine RBC 11-20 HPF (0-3) A 09/14/19 19:55 Urine WBC 21-50 HPF (0-3) A 09/14/19 19:55 Ur Squamous Epith Cells 0-3 HPF (0-3) 09/14/19 19:55 Urine Bacteria 2+ HPF (None Seen) A 09/14/19 19:55 - EKG Interpretation EKG: sinus tachycardia - Radiology Interpretation Chest x-ray Additional comment: possible pna CT scan - chest Status: report reviewed by me Additional comment: negative for PE or any pulmonary process. FMR H&P: A/P - Problem List (1) Acute kidney injury Current Visit: No Status: Acute Code(s): N17.9 - ACUTE KIDNEY FAILURE, UNSPECIFIED (2) Adrenal insufficiency Current Visit: No Status: Chronic Code(s): E27.40 - UNSPECIFIED ADRENOCORTICAL INSUFFICIENCY (3) BPH (benign prostatic hyperplasia) Current Visit: No Status: Chronic Code(s): N40.0 - BENIGN PROSTATIC HYPERPLASIA WITHOUT LOWER URINRY TRACT SYMP (4) Chronic anticoagulation Current Visit: No Status: Chronic Code(s): Z79.01 - [facility] (CURRENT) USE OF ANTICOAGULANTS Comment: Continue Xarelto (5) Diabetes type 2, controlled Current Visit: No Status: Chronic Code(s): E11.9 - TYPE 2 DIABETES MELLITUS WITHOUT COMPLICATIONS (6) Dyslipidemia Current Visit: No Status: Chronic Code(s): E78.5 - HYPERLIPIDEMIA, UNSPECIFIED (7) Essential hypertension Current Visit: No Status: Chronic Code(s): I10 - ESSENTIAL (PRIMARY) HYPERTENSION Comment: controlled.monitor.Pt w Potential for hypotension w Still's disease (8) H/O deep venous thrombosis Current Visit: No Status: Chronic Code(s): Z86.718 - PERSONAL HISTORY OF OTHER VENOUS THROMBOSIS AND EMBOLISM (9) Still's disease Current Visit: No Status: Chronic Code(s): M08.20 - JUVENILE RHEUMATOID ARTHRITIS WITH SYSTEMIC ONSET, UNSP SITE (10) UTI (urinary tract infection) Current Visit: No Status: Acute Qualifiers: Urinary tract infection type: acute cystitis Hematuria presence: without hematuria Qualified Code(s): N30.00 - Acute cystitis without hematuria - Plan 59 yo M admitted for: Severe sepsis secondary UTI - fevers at home of 103 F - continue cefepime. Give 1 time dose of diflucan. - budding yeasts on UA. 2+ bacteria. - urine and blood cultures pending - lactate downtrended - CTA neg for PE and pulmonary process - CXR possible for PNA - procalcitonin pending - more likely UTI source than pulmonary at this point. CARL vs CARL on CKD possibly from dehydration Adult still's disease - fluids. Baseline Cr is 1.1 Chronic conditions: Hx of DVT - continue xarelto - CTA neg for PE Adrenal insufficiency - needs stress dose steroids: hydrocortisone 50mg IV q6h. Hold home prednisone. T2DM - home meds - hypoglycemia protocol - glucose checks q12h HTN - pt already having low pressures. Hold HCTZ HLD - continue home meds Code: full Fluids: LR at 125 mL/hr VTE ppx: xarelto GI ppx: already takes pepcid at home Linda Preciado MD PGY1 Disposition/LOS: admit to IMCU for severe sepsis. Expect LOS greater than 48 H. FMR H&P: Upper Level - Plan Date/Time: 09/14/192138 PCP: Nelli HPI: This is a 59 yo male being admitted for sepsis 2/2 UTI. Patient had PMH including stills disease, adrenal insufficiency, and DM2. He was sent in by his mother for reported altered mental status, he is not really sure why he came , his is AxOx4 at time of exam. Patient states he has had persistent cough since last week when he was discharged with influenza and it has not really changed. He has had chills at home for the last few days. He complains of frontal headache for the last day or so. He states he feels general malaise, feels like he would be unable to walk across the room right now. He denies missing any of his steroid doses since discharge. REVIEW OF SYSTEMS: Gen: see hpi Neuro: denies headache Eyes: no visual changes ENT: no hearing changes, no sore throat, no congestion Resp: see hpi, denies SOB Card: denies CP, palpitations GI: no N/V/D, no abdominal pain Heme: no easy bruising/bleeding Skin: no rash, no erythema PHYSICAL EXAMINATION: General: NAD, alert and oriented x4 (knows name, location, month, current events in the news) HEENT: PERRLA, EOMI, normal sclera, oropharynx without erythema or exudate, mild dry oral mucosa Neck: Supple. Full ROM. Heart/Cardiovascular System: RRR, Cap refill < 3 seconds, no rub, no murmur Lungs/Respiratory System: CTA-B, no resp distress Abdomen/Gastro-Intestinal System: no abdominal tenderness, normal bowel sounds Extremities: Warm extremities. No cyanosis or edema. Cap refill < 3sec Neuro: No gross deficits appreciated. CN 2-12 grossly intact Psychiatry: Awake, Alert and cooperative with exam Skin: No lesions, rashes, or ulcers Musculoskeletal: Full ROM A/P: # Sepsis 2/ UTI vs. adrenal insufficiency -had a few BPs in 90s on arrival, improved after fluids - UTI, temp to 103.3, LA 1.2 - CTA shows no PE or effusion/consolidation, do not suspect PNA - will give stress dose hydrocortisone 50mg q6 hrs for 24 hrs - has had multiple similar admissions in previous few months therefore unclear whether soft pressures are from true sepsis or adrenal insufficiency - had flu A last week, finished course of tamilflu # stills/RA - Home meds, stress steroids # CKD - 1.36 baseline around 1.1 # DM2, HLD - Home meds, ssi # Hx of DVT - On Xarelto at home 8. Adrenal Insufficiency-resolved Fluids: LR 125ml/hr Code status: full PPx: xarelto Dispo: admit to IMCU overnight 2/2 soft pressures in ED, anticipate could transfer to floor tomorrow as long as the night goes well. Would likely benefit from rehab Addendum - Attending - Attending Attestation Date/Time: 09/15/19 1248 Late entry note for 2129 on 09/14/19. I personally evaluated the patient and discussed the management with Dr. Preciado /Baltazar Russo. H&P repeated by me. I agree with the History, Examination, Assessment and Plan documented above with any addition or exceptions noted below. Sepsis secondary to presumed UTI- s/p IVF, linezolid, cefepime, levaquin and fluconazole. To IMCU to continue IVF and Cefempime and fluconazole. Blood cx and urine cx. Adrenal insufficiency- stress dose steroids. Has appt with endo on Tuesday pm. T2DM_ continue insulin +SS CARL- IVF and trend
[2019-09-14] MEDS ORDERED: Acetaminophen 325 MG TAB PO PRN (21:48)
[2019-09-14] MEDS ORDERED: Ondansetron PF 4 MG/2 ML Vial IVP PRN (21:48)
[2019-09-14] MEDS ORDERED: Ondansetron ODT 4 MG TAB PO PRN (21:48)
--- NOTE | 2019-09-14 21:48 | CT ---
CT ANGIOGRAM THORAX WITH IV CONTRAST AND 3-D RECONSTRUCTIONS CLINICAL INDICATION: Altered mental status. Chest pain. COMPARISON: 09/07/2018 FINDINGS: Pulmonary arteries: No filling defects are seen in the pulmonary arteries to suggest a pulmonary embo myranda. Aorta: Vascular calcifications are seen in the thoracic aorta, but the thoracic aorta is normal in ca liber without evidence of an aortic dissection. Lungs: There is volume loss seen bilaterally predominantly dependently. No consolidation or pleural e ffusion is identified. No pulmonary nodule or mass is seen. Mediastinum: There is a mildly enlarged right paratracheal lymph node measuring 1.4 cm in short axis dimension. However, this is stable when compared to the prior study as well as a study on 03/30/2019. No additional enlarged lymph nodes are seen. Thyroid gland: Normal in appearance where visualized. Osseous structures: Remote left-sided rib fractures are seen. Degenerative changes are seen in the sp ine. There is incomplete visualization of right glenohumeral osteoarthropathy. Chest wall: There is evidence of gynecomastia bilaterally. Upper abdomen: There is incomplete visualization of a hypodense superior pole right renal lesion whic h was seen on CT abdomen on 09/07/2018 and is most compatible with a cyst. Postcholecystectomy changes are seen. IMPRESSION: 1. No CT evidence of a pulmonary embolus. 2. No acute findings are seen in the chest. 3. Stable nonspecific mildly enlarged right paratracheal lymph node. 4. Additional incidental findings as described above.
[2019-09-14] MEDS ORDERED: Enoxaparin Sodium 40 MG/0.4 ML SYRINGE SC SCH (22:00)
[2019-09-14] MEDS ORDERED: Hydrocortisone Sod Succ/PF 100 mg/2 ml Vial ONE (22:17)
[2019-09-14 23:16] VITALS: BMI 26.7
[2019-09-14] MEDS ORDERED: traMADol HCl 50 MG TAB PO PRN (23:24)
[2019-09-14] MEDS ORDERED: Lactated Ringer's 1,000 ML IV SCH (23:45)
[2019-09-14 23:50] LABS: Troponin I 0.013 ng/mL (< 0.028)
[2019-09-15] MEDS: Lactated Ringer's 1,000 ML IV SCH ×3 (00:14→15:03)
[2019-09-15] MEDS ORDERED: Dextrose 50% Abboject 50 ML SYRINGE SLOW IVP PRN (01:31)
[2019-09-15] MEDS ORDERED: Dextrose 5% in Water 1,000 ML IV PRN (01:31)
[2019-09-15 01:57] LABS: Troponin I 0.012 ng/mL (< 0.028)
[2019-09-15] MEDS ORDERED: Fluconazole 100 MG TAB PO SCH (02:00)
[2019-09-15] MEDS: Hydrocortisone Sod Succ/PF 100 mg/2 ml Vial IVP SCH ×3 (04:00→15:03)
[2019-09-15 04:26] LABS: Anion Gap 17 mmol/L (10-20); BUN (Urea Nitrogen) 19 mg/dL (8.4-25.7); Calc. Creatinine Clearance 92 mL/min (70-130); Calcium 8.5 mg/dL (7.8-10.44); Carbon Dioxide 18 mmol/L (22-29); Chloride 109 mmol/L (98-107); Estimated GFR-MDRD Greater than 90; Glucose 133 mg/dL (70-105); Potassium 4.8 mmol/L (3.5-5.1); Sodium 139 mmol/L (136-145)
[2019-09-15 04:35] LABS: Band 9 % (5-11); Hemoglobin 12.4 g/dL (14.0-18.0); Lymphocytes 12 % (21-51); MDiff Complete? YES; Mean Corpuscular HGB CONC 32.9 g/dL (32.0-36.0); Mean Corpuscular Hemoglobin 30.9 pg (27.0-31.0); Mean Corpuscular Volume 93.7 fL (78.0-98.0); Mean Platelet Volume 7.5 fL (7.4-10.4); Metamyelocyte 1 % (0-0); Monocytes 4 % (0-10); Neutrophil 74 % (42-75); Platelet Count 235 thou/uL (130-400); Platelet Morphology Comment Appears Adequate; RBC Distribution Width 15.1 % (11.5-14.5); Red Blood Cell (RBC) Count 4.02 mill/uL (4.70-6.10); White Blood Cell (WBC) Count 20.6 thou/uL (4.8-10.8)
--- NOTE | 2019-09-15 06:17 | PDOC.FM ---
- Subjective Subjective: Pt is at baseline mentation this morning. He denies any events overnight. Denies any fevers, chills since admission. Denies any dysuria, flank pain, abdominal pain, N/V/D, or change in urine prior to admission. Pt has a history of admissions 2/2 non compliance with his home medications for Stills Disease. He states that since his recent DC from the hospital he has been taking all of his medication as directed and has not missed any doses. - Objective Vital Signs & Weight: Vital Signs (12 hours) Temp Pulse Ox 09/15/19 05:18 95 09/15/19 04:32 97.9 F 09/14/19 23:44 100 09/14/19 23:16 97.6 F Weight Weight 79.787 kg Most Recent Monitor Data Heart Rate from ECG 88 NIBP 117/68 NIBP BP-Mean 84 Respiration from ECG 12 SpO2 96 I&O: 09/13/19 09/14/19 09/15/19 06:59 06:59 06:59 Output Total 350 Balance -350 Result Diagrams: 09/15/19 03:42 09/15/19 03:42 Phys Exam - Physical Examination Constitutional: NAD HEENT: moist MMs, sclera anicteric Neck: full ROM Respiratory: no wheezing, clear to auscultation bilateral Cardiovascular: RRR, no significant murmur Gastrointestinal: soft, non-tender, no distention, positive bowel sounds No CVA tenderness Musculoskeletal: no edema, pulses present Neurological: non-focal, moves all 4 limbs Psychiatric: normal affect, A&O x 3 Skin: no rash, cap refill <2 seconds Dx/Plan (1) Sepsis Code(s): A41.9 - SEPSIS, UNSPECIFIED ORGANISM Status: Acute Qualifiers: Sepsis type: sepsis due to unspecified organism Sepsis acute organ dysfunction status: with acute organ dysfunction Severe sepsis acute organ dysfunction type: encephalopathy Severe sepsis shock status: without septic shock Qualified Code(s): A41.9 - Sepsis, unspecified organism; R65.20 - Severe sepsis without septic shock; G93.40 - Encephalopathy, unspecified (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 1 time dose of diflucan given - budding yeasts on UA. 2+ bacteria. - Transition to 1g Rocephin daily for complicated UTI - urine and blood cultures pending - lactate downtrended - leukocytosis worsened, likely 2/2 to stress dose steroids as bands have decreased Post Viral Syndrome - Influenza recently with post viral cough and malaise - CXR and CTA chest negative for infiltrate/consolidation or PE CARL - Resolved - Baseline Cr is 1.1. Cr on admission 1.36, this AM after IVF 0.98 Adult still's disease Adrenal insufficiency - BP's initially soft but improved overnight and now WNL and stable - needs stress dose steroids: hydrocortisone 50mg IV q6h. Hold home prednisone. - Has upcoming appointment with [facility] Finisher - Family to bring Anakinra from home to resume here Chronic conditions: Hx of DVT - continue xarelto - CTA neg for PE T2DM - home meds - hypoglycemia protocol - glucose checks q12h HTN - Soft BP. Hold HCTZ until normalized HLD - continue home meds Code: full Fluids: LR at 125 mL/hr VTE ppx: xarelto GI ppx: already takes pepcid at home Disposition/LOS: Inpt IMCU. Pt currently stable with improving BP. Will await cultures and continue IV abx currently. Likely transition to medical as long as BP's remain stable. Expect DC in 1-2 days. Addendum - Attending - Attending Attestation Date/Time: 09/15/19 1259 I personally evaluated the patient at 0745 and discussed the management with Dr. Pope. I agree with the History, Examination, Assessment and Plan documented above with any addition or exceptions noted below. Sepsis secondary to presumed UTI- continue IVF, diflucan, and rocephin. Await cx results Adrenal insuff- continue stress dose steroids. stable for transfer to medical floor.
[2019-09-15] MEDS ORDERED: Cefepime 2 GM in Sodium Chloride 0.9% 100 ML IVPB SCH (08:00)
[2019-09-15] MEDS: cefTRIAXone\\ROCEPHIN 1 GM in Sodium Chloride 0.9% 100 ML IVPB SCH (08:45)
[2019-09-15] MEDS: Famotidine 20 MG TAB PO SCH (08:46)
[2019-09-15] MEDS: Insulin Glargine 30 UNITS in Pre-Filled Syringe 1 EACH SC SCH (08:46)
[2019-09-15] MEDS: Folic Acid 1 MG TAB PO SCH (08:46)
[2019-09-15] MEDS: Ezetimibe 10 MG TAB PO SCH (08:46)
[2019-09-15] MEDS: Atorvastatin Calcium 40 MG TAB PO SCH (08:46)
[2019-09-15] MEDS: Alogliptin 25 MG TAB PO SCH (08:46)
[2019-09-15] MEDS: Tamsulosin HCl 0.4 MG CAP PO SCH (08:47)
[2019-09-15] MEDS: Multivitamin W/ Minerals 1 TAB PO SCH (08:47)
[2019-09-15] MEDS: Lactinex Tablet PO SCH (08:47)
[2019-09-15] MEDS ORDERED: Enoxaparin Sodium 40 MG/0.4 ML SYRINGE SC SCH (09:00)
--- NOTE | 2019-09-15 16:26 | CON ---
DATE OF CONSULTATION: 09/15/2019 REASON FOR CONSULTATION: IMCU stay. HISTORY OF PRESENT ILLNESS: The patient is well known to me. He is 59-year-old, has Still's disease, came to the ER last night with fever, but relatively normal blood pressure, now feels better this morning. Has no acute complaints. PAST MEDICAL HISTORY: 1. Still's disease. 2. Adrenal insufficiency. 3. Diabetes mellitus type 2. 4. Bacteremia. PAST SURGICAL HISTORY: Unremarkable. ALLERGIES: VANCOMYCIN. MEDICATIONS PRIOR TO ADMISSION: Reviewed, see chart. SOCIAL HISTORY: Nonsmoker. Does not consume alcohol. Does not use illicit drugs. REVIEW OF SYSTEMS: Otherwise, negative. PHYSICAL EXAMINATION: VITAL SIGNS: Temperature 98, pulse 97, blood pressure 127/91, and O2 saturation 100%. HEENT: Unremarkable. NECK: No adenopathy or JVD. CHEST: Clear to auscultation without wheezing. CARDIAC: S1 and S2. Regular. ABDOMEN: Soft. EXTREMITIES: No edema. Cultures from yesterday so far show no growth. ASSESSMENT: 1. Fever. 2. Still's disease. PLAN: Likely that is he is having an exacerbation of his Still's symptoms. This is likely due to over aggressive weaning of the steroids recommendation. He really needs Rheumatology input. He has a complex disease process. I would not wean his steroids by any more than 1 mg per week. I would not send him home on any lower dose than 20 mg a day. No further recommendations at this time. Please recall if further assistance needed. Job ID: [id number]
[2019-09-15] MEDS: ANAKINRA 100 MG SQ SCH (20:20)
[2019-09-16] MEDS: Lactated Ringer's 1,000 ML IV SCH ×2 (02:17→08:13)
--- NOTE | 2019-09-16 05:32 | PDOC.FM ---
- Subjective Subjective: Patient continuess to do well this morning. Denies any complaints. No events overnight. Denies any dysuria, fever, or chills. - Objective Vital Signs & Weight: Vital Signs (12 hours) Temp Pulse Resp BP Pulse Ox 09/16/19 03:47 98.3 F 09/15/19 23:30 98.1 F 09/15/19 20:26 109 H 17 122/65 98 09/15/19 20:00 98.4 F 96 Weight Admit Weight 79.379 kg Weight 79.787 kg Most Recent Monitor Data Heart Rate from ECG 102 NIBP 122/65 NIBP BP-Mean 84 Respiration from ECG 23 SpO2 100 I&O: 09/14/19 09/15/19 09/16/19 06:59 06:59 06:59 Intake Total 2840 Output Total 350 2200 Balance -350 640 Result Diagrams: 09/15/19 03:42 09/15/19 03:42 Phys Exam - Physical Examination Constitutional: NAD HEENT: sclera anicteric Neck: full ROM Respiratory: no wheezing, clear to auscultation bilateral Cardiovascular: RRR, no significant murmur Gastrointestinal: soft, non-tender Musculoskeletal: no edema, pulses present Neurological: non-focal, moves all 4 limbs Psychiatric: normal affect, A&O x 3 Skin: no rash, cap refill <2 seconds Dx/Plan (1) 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 DISEASE Status: Chronic (2) Essential hypertension Code(s): I10 - ESSENTIAL (PRIMARY) HYPERTENSION Status: Chronic (3) UTI (urinary tract infection) Status: Acute Qualifiers: Urinary tract infection type: acute cystitis Hematuria presence: without hematuria Qualified Code(s): N30.00 - Acute cystitis without hematuria - Plan Plan: Sepsis secondary to complicated UTI - Sepsis resolved - 1g Rocephin daily for complicated UTI, transition to PO - urine and blood cultures pending Post Viral Syndrome - Stable - Influenza recently with post viral cough and malaise - CXR and CTA chest negative for infiltrate/consolidation or PE CARL - Resolved - Baseline Cr is 1.1. Cr on admission 1.36, improved after IVF to 0.98 Adult still's disease Adrenal insufficiency - BP's initially soft but improved, now WNL and stable - Stress dose steroids given - Transition to PO today - Dr. Styles rec no taper >10mg/wk. Will DC with 40mg daily. Rheum follow up tomorrow - Anakinra from home to resume here Chronic conditions: Hx of DVT - continue xarelto - CTA neg for PE T2DM - home meds - hypoglycemia protocol - glucose checks q12h HTN - Soft BP. Hold HCTZ until normalized HLD - continue home meds Code: full Fluids: LR at 125 mL/hr VTE ppx: xarelto GI ppx: already takes pepcid at home Disposition/LOS: Inpt IMCU. Pt currently stable with improving BP. Transition to PO abx. Pending transition to medical floor. PO steroids today. Expect DC in 0-1 days. Addendum - Attending - Attending Attestation Date/Time: 09/16/19 1121 I personally evaluated the patient at 0655 and discussed the management with Dr. Abreu. I agree with the History, Examination, Assessment and Plan documented above with any addition or exceptions noted below. SIRS on admission-presumed secondary to UTI, however urine cx is negative. Blood cx is growing 1/2 gram positive cocci. Patient is afebrile and doing well without complaint, but will continue on Rocephin until results finalize Presentation most likely from adrenal insufficiency from recent steroid taper- transition to prednisone 40 mg daily. Patient has f/u with rheumatology tomorrow am. Will see if can get speciation on blood cx this afternoon. If contaminant then stable for d/c. If unable to speciate then will keep until tomorrow am and d/c early so he can make rheum appointment.
[2019-09-16] MEDS: Alogliptin 25 MG TAB PO SCH (08:14)
[2019-09-16] MEDS: Fluconazole 100 MG TAB PO SCH (08:14)
[2019-09-16] MEDS: Lactinex Tablet PO SCH (08:14)
[2019-09-16] MEDS: Tamsulosin HCl 0.4 MG CAP PO SCH (08:14)
[2019-09-16] MEDS: Famotidine 20 MG TAB PO SCH (08:14)
[2019-09-16] MEDS: Multivitamin W/ Minerals 1 TAB PO SCH (08:15)
[2019-09-16] MEDS: Folic Acid 1 MG TAB PO SCH (08:15)
[2019-09-16] MEDS: Ezetimibe 10 MG TAB PO SCH (08:15)
[2019-09-16] MEDS: predniSONE 20 MG TAB PO SCH (08:15)
[2019-09-16] MEDS: Atorvastatin Calcium 40 MG TAB PO SCH (08:15)
[2019-09-16] MEDS: cefTRIAXone\\ROCEPHIN 1 GM in Sodium Chloride 0.9% 100 ML IVPB SCH (08:15)
[2019-09-16] MEDS: Insulin Glargine 30 UNITS in Pre-Filled Syringe 1 EACH SC SCH (08:54)
[2019-09-16] MEDS ORDERED: HumaLOG 300 UNITS/3 ML VIAL SC PRN ×2 (12:35→12:36)
[2019-09-16] MEDS: ANAKINRA 100 MG SQ SCH (20:42)
--- NOTE | 2019-09-17 05:19 | PDOC.FM ---
- Subjective Subjective: Mr. Knight is doing well this morning. Denies any new complaints, and denies dysuria. He is eager to be discharged to make his rheumatology appt. - Objective MAR Reviewed: Yes Vital Signs & Weight: Vital Signs (12 hours) Temp Pulse Resp BP BP Pulse Ox 09/17/19 03:35 100 09/16/19 23:52 97.9 F 80 16 110/53 L 100 09/16/19 19:51 98.4 F 92 16 126/60 99 09/16/19 18:47 19 114/55 L Weight Admit Weight 79.379 kg Weight 79.787 kg Most Recent Monitor Data Heart Rate from ECG 102 NIBP 122/65 NIBP BP-Mean 84 Respiration from ECG 23 SpO2 100 I&O: 09/15/19 09/16/19 09/17/19 06:59 06:59 06:59 Intake Total 4215 1200 Output Total 350 2200 250 Balance -350 2015 950 Result Diagrams: 09/15/19 03:42 09/15/19 03:42 Phys Exam - Physical Examination Constitutional: NAD HEENT: PERRLA, moist MMs Neck: supple, full ROM Respiratory: no wheezing, no rales, no rhonchi, clear to auscultation bilateral Cardiovascular: RRR, no significant murmur Gastrointestinal: soft, non-tender Musculoskeletal: no edema, pulses present Neurological: non-focal, normal sensation, moves all 4 limbs Psychiatric: normal affect, A&O x 3 Skin: no rash, normal turgor Dx/Plan (1) UTI (urinary tract infection) Status: Acute Qualifiers: Urinary tract infection type: acute cystitis Hematuria presence: without hematuria Qualified Code(s): N30.00 - Acute cystitis without hematuria (2) Adrenal insufficiency Code(s): E27.40 - UNSPECIFIED ADRENOCORTICAL INSUFFICIENCY Status: Chronic (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 However, cultures resulted with MRSA and is not sensitive to cephalosporins. D/c with 7 days of Bactrim PO per sensitivity report. D/c with po Fluconazole for 2 weeks. Post Viral Syndrome - Stable - Influenza recently with post viral cough and malaise - CXR and CTA chest negative for infiltrate/consolidation or PE CARL - Resolved Adult still's disease Adrenal insufficiency - s/p stress dose steroids - Prednisone 40mg po daily, started 09/16. - Will DC with 40mg daily. Rheum follow up this morning. Per Dr. Styles's note, he recommended slow taper of steroids. - Anakinra from home to resume here Chronic conditions: Hx of DVT - continue xarelto - CTA neg for PE T2DM - home meds - hypoglycemia protocol - glucose checks q12h HTN - Soft BP. Hold HCTZ until normalized HLD - continue home meds Code: full VTE ppx: xarelto GI ppx: pepcid, home medication Dispo: Stable, inpatient. Likely d/c today. Addendum - Attending - Attending Attestation Date/Time: 09/18/19 0053 I personally evaluated the patient and discussed the management with Dr. Mcdonald. I agree with the History, Examination, Assessment and Plan documented above with any addition or exceptions noted below. Patient is afebrile, without urinary symptoms, and is wanting to go home. Plan as above. Return warnings discussed. BC likely contaminant. I anticipate UCx is as well, but in light of immunosuppression will proceed with treatment.
[2019-09-17 08:03] VITALS: BP 119/67; TEMP 98.4
[2019-09-17] MEDS: Ezetimibe 10 MG TAB PO SCH (08:03)
[2019-09-17] MEDS: Tamsulosin HCl 0.4 MG CAP PO SCH (08:03)
[2019-09-17] MEDS: Lactinex Tablet PO SCH (08:03)
[2019-09-17] MEDS: Folic Acid 1 MG TAB PO SCH (08:04)
[2019-09-17] MEDS: Alogliptin 25 MG TAB PO SCH (08:04)
[2019-09-17] MEDS: predniSONE 20 MG TAB PO SCH (08:04)
[2019-09-17] MEDS: Fluconazole 100 MG TAB PO SCH (08:04)
[2019-09-17] MEDS: Famotidine 20 MG TAB PO SCH (08:04)
[2019-09-17] MEDS: Atorvastatin Calcium 40 MG TAB PO SCH (08:04)
[2019-09-17] MEDS: Multivitamin W/ Minerals 1 TAB PO SCH (08:04)
[2019-09-17] MEDS: cefTRIAXone\\ROCEPHIN 1 GM in Sodium Chloride 0.9% 100 ML IVPB SCH (08:07)
[2019-09-17] MEDS: Insulin Glargine 30 UNITS in Pre-Filled Syringe 1 EACH SC SCH (08:37)
--- NOTE | 2019-09-18 05:26 | PQF ---
SAP Test Lead Application Testing Crystal Reports Winform ViewerLEONID HENDRIX RAE ANN MD [id number] CLINICAL DOCUMENTATION CLARIFICATION FORM: POST DISCHARGE Addendum to original discharge summary date: ____ Late entry note date: __ DATE: 09/18/2019 ATTN: LAWANDA PEÑALOZA MD Please exercise your independent, professional judgment in responding to the clarification form. Clinical indicators are provided on the bottom of this form for your review Please check appropriate box(s): [ X ] Encephalopathy: Type: [ X ] Metabolic - due to adrenal insufficiency [ X] Septic r/o [ ] Unspecified [ ] in the setting of underlying dementia [ ] Other (please specify) [ ] Other diagnosis [ ] Unable to determine In addition, please specify: Present on Admission (POA): [ ] Yes [ ] No [ ] Unable to determine For continuity of documentation, please document condition throughout progress notes and discharge summary. Thank You. CLINICAL INDICATORS - SIGNS / SYMPTOMS / LABS Altered mental status - Documented in H&P on 09/14 by Caren Preciado Severe sepsis acute organ dysfunction type : Encephalopathy - Documented in H& P on 09/14 by Caren Preciado UTI - Documented in H&P on 09/14 by Caren Preciado RISK FACTORS Hypertension -Documented in H&P on 09/14 by Caren Preciado Severe Sepsis - Documented in H&P on 09/14 by Caren Preciado CARL - Documented in Hospital PNs on 09/15 by Bautista Abreu DM type 2 -Documented in H&P on 09/14 by Caren Preciado TREATMENTS: Rocephin IVPB - Documented in Medication report SAP Test Lead Application Testing Crystal Reports Winform Viewer (This form is maintained as a part of the permanent medical record) 2014 [employer] All Rights Reserved [email or web address] [phone] ERICK
== END 2019-09-17 10:10 | disposition home or self-care (01) | DRG 871 ==
LOC: ERS 18:42 → IMCU/EMU 23:00 → ONC 09-16 06:22
PROVIDERS: ADMIT Family Medicine; ATTEND Family Medicine
DX: A41.9 Sepsis, unspecified organism (principal); G93.41 Metabolic encephalopathy; N17.9 Acute kidney failure, unspecified; E27.40 Unspecified adrenocortical insufficiency; N39.0 Urinary tract infection, site not specified; G93.40 Encephalopathy, unspecified; Z79.4 Long term (current) use of insulin; R65.20 Severe sepsis without septic shock; Z79.899 Other long term (current) drug therapy; E78.5 Hyperlipidemia, unspecified; N40.0 Benign prostatic hyperplasia without lower urinary tract symptoms; Z79.01 Long term (current) use of anticoagulants; Z86.718 Personal history of other venous thrombosis and embolism; M08.20 Juvenile rheumatoid arthritis with systemic onset, unspecified site; E86.0 Dehydration; N18.9 Chronic kidney disease, unspecified; I12.9 Hypertensive chronic kidney disease with stage 1 through stage 4 chronic kidney disease, or unspecified chronic kidney disease; E11.22 Type 2 diabetes mellitus with diabetic chronic kidney disease; G93.3 Postviral and related fatigue syndromes
CPT/HCPCS: 36415; 36416; 70450; 71045; 71275; 80048; 80053; 81003; 81015; 83605; 83880; 84484; 85025; 87040; 87077; 87086; 87186; 93005; 96361; 96365; 96366; 96367; 96375; J0692; J0696; J1720; J1815; J1956; J2020; J3490; J7512; Q9967

== ENCOUNTER 2019-12-21 19:31 | Inpatient (IN) | payer MEDICARE, OTHER ==
[2019-12-21] MEDS ORDERED: cefTRIAXone\\ROCEPHIN 2 GM VIAL ONE (19:57)
[2019-12-21] MEDS ORDERED: Cefepime 2 GM VIAL ONE (19:57)
[2019-12-21 20:08] LABS: Bacteria/HPF None Seen HPF (None Seen); Bilirubin Negative (Negative); Blood, Urine Negative (Negative); Clarity Clear (Clear); Glucose, Urine (Dipstick) Greater than 1000 mg/dL (Negative); Leukocyte 25 Leu/uL (Negative); Nitrite Negative (Negative); Protein, Urine (Dipstick) Negative (Neg-Trace); RBC/HPF 0-3 HPF (0-3); Urobilinogen Normal mg/dL (Less than 2)
[2019-12-21 20:24] LABS: Hemoglobin 16.5 g/dL (14.0-18.0); Mean Corpuscular HGB CONC 30.4 g/dL (32.0-36.0); Mean Corpuscular Hemoglobin 29.6 pg (27.0-31.0); Mean Corpuscular Volume 97.1 fL (78.0-98.0); Mean Platelet Volume 8.4 fL (7.4-10.4); Platelet Count 125 thou/uL (130-400); RBC Distribution Width 16.6 % (11.5-14.5); Red Blood Cell (RBC) Count 5.58 mill/uL (4.70-6.10)
[2019-12-21 20:38] LABS: Band 9 % (5-11); Lymphocytes 12 % (21-51); MDiff Complete? YES; Monocytes 7 % (0-10); Neutrophil 72 % (42-75); Platelet Morphology Comment Appears Adequate; RBC Morphology Normal
--- NOTE | 2019-12-21 20:40 | RAD ---
RADIOGRAPH CHEST 1 VIEW: 12/21/19 at 8:02 p.m. HISTORY: 59-year-old male with altered mental status. Concern for aspiration. FINDINGS: There is no air space density, pulmonary edema, or pneumothorax. The lateral costophrenic angles are sharp. IMPRESSION: No acute pulmonary findings. jn [] POS: JIN
[2019-12-21 21:08] LABS: ALT (SGPT) 26 U/L (8-55); AST (SGOT) 38 U/L (5-34); Albumin 3.5 g/dL (3.5-5.0); Alkaline Phosphatase 83 U/L (40-110); Anion Gap 24 mmol/L (10-20); BUN (Urea Nitrogen) 36 mg/dL (8.4-25.7); Bilirubin, Total 0.6 mg/dL (0.2-1.2); Calc. Creatinine Clearance 0 mL/min (70-130); Carbon Dioxide 16 mmol/L (22-29); Chloride 108 mmol/L (98-107); Estimated GFR-MDRD 20; Globulin 2.3 g/dL (2.4-3.5); Glucose 326 mg/dL (70-105); Potassium 3.7 mmol/L (3.5-5.1); Protein, Total 5.8 g/dL (6.0-8.3); Sodium 144 mmol/L (136-145)
[2019-12-21 21:37] LABS: CKMB 11.5 ng/mL (0-6.6)
[2019-12-21] MEDS ORDERED: EPINEPHrine 1 MG/ML AMP ONE (21:39)
[2019-12-21] MEDS ORDERED: EPINEPHrine 1 MG/10 ML Abboject SYRINGE ONE (21:40)
[2019-12-21] MEDS ORDERED: Insulin Regular 300 UNITS/3 ML VIAL ONE (22:04)
--- NOTE | 2019-12-21 22:10 | PDOC.FPRHP ---
Addendum entered and electronically signed by July Pa DO 12/22/19 05:24: CARL on CKD2 -likely prerenal with dehydration on exam -renally dose meds Original Note: - History of Present Illness Chief Complaint: AMS, weakness History of Present Illness: Pt is a 59 yo M with PMH of T2DM and HTN presenting via EMS for AMS and weakness. EMS reports BS in the 400's. Pt is not able to provide hx at this time, falling asleep in-between questions but easily arousable. Initial VS in ED showing BP 60/44, MAP 49, P119. Family listed in chart called to provide hx but no answer and unable to leave voicemail. ED Course: He was given 10U Novolin, 50 mcg IV Epinephrine, 30ml/kg bolus + 1500ml NS, Rocephin, Cefepime 2g - Allergies/Adverse Reactions Allergies Allergy/AdvReac Type Severity Reaction Status Date / Time vancomycin Allergy Intermediate Verified 12/21/19 23:55 - Home Medications Medication Instructions Recorded Confirmed Type Atorvastatin Calcium [Lipitor] 40 mg PO QAM 10/18/15 09/14/19 History Anakinra [Kineret] 100 mg SQ QPM 09/01/18 09/14/19 History Ezetimibe [Zetia] 10 mg PO QAM tab 01/03/19 09/14/19 Rx Famotidine [Pepcid] 20 mg PO DAILY tab 01/03/19 09/14/19 Rx Folic Acid [Folvite] 1 mg PO DAILY tab 01/03/19 09/14/19 Rx Multivitamin W/ Minerals 1 tab PO DAILY tab 01/03/19 09/14/19 Rx [Theragran M] Rivaroxaban [Xarelto] 20 mg PO QAM-WM tab 01/03/19 09/14/19 Rx Tamsulosin HCl [Flomax] 0.4 mg PO QAM cap 01/03/19 09/14/19 Rx Acetaminophen [Tylenol Extra 500 mg PO Q4H PRN 02/03/19 09/14/19 History Strength] traMADol HCl [Tramadol HCl] 100 mg PO Q6H PRN 05/30/19 09/14/19 History Hydrochlorothiazide 1 tab PO DAILY 07/08/19 09/14/19 History sitaGLIPtin Phosphate [Januvia] 1 tab PO DAILY 07/09/19 09/14/19 History Insulin Glargine [Lantus] 30 units SC QAM #0 vial 08/17/19 09/14/19 Rx Lactobacillus [Floranex] 1 tab PO DAILY #30 tab 08/17/19 09/14/19 Rx predniSONE 40 mg PO QAM-WM #7 tab 09/16/19 Rx Fluconazole [Diflucan] 200 mg PO DAILY #14 tablet 09/17/19 Rx Sulfamethoxazole/Trimethoprim 1 tab PO BID #14 tab 09/17/19 Rx [Bactrim DS] - History PMHx:HLD, T2DM, HTN, Adult Still Disease, Adrenal Insufficiency, Combined CHF PSHx: Cholecystectomy, L shoulder surgery, L knee surgery, cervical spinal fusion, R shoulder surgery FHx: non contributory Social: obtained from prior H&P- no alcohol use, tobacco use, or drug use. - Review of Systems ROS unobtainable: due to mental status - Vital signs BP 95/60, RR 40, O2 98% RA, HR 122, Wt 75kg - Physical Exam -Constitutional: drowsy, unable to stay awake for conversation persistently although answered some questions, tachycardic, tachypneic HEENT: normocephalic and atraumatic, PERRLA, EOMI, no scleral icterus -HEENT: dry MM -Neck: decreased ROM, stiff (pt reports this as baseline) Chest: no-tender to palpation -Chest: pustular rash on chest Heart: RRR, normal S1/S2, pulses present -Heart: trace edema Lungs: CTAB, good air movement -Lungs: tachypnea, distant lung sounds, no wheezing or crackles Abdomen: soft, non-tender, bowel sounds present -Musculoskeletal: stiff in all joints, no obvious erythema or swelling of joints Neurological: no focal deficit, CN II-XII intact, normal sensation -Skin: pustular rash on chest as above. Prolonged capillary refill. -Psychiatric: AOx1-2 FMR H&P: Results - Labs Result Diagrams: 12/22/19 03:50 12/22/19 15:56 Lab results: WBC 19.0 thou/uL (4.8-10.8) H 12/21/19 20:15 Hgb 16.5 g/dL (14.0-18.0) 12/21/19 20:15 Hct 54.2 % (42.0-52.0) H 12/21/19 20:15 MCV 97.1 fL (78.0-98.0) 12/21/19 20:15 Plt Count 125 thou/uL (130-400) L 12/21/19 20:15 Band Neuts % (Manual) 9 % (5-11) 12/21/19 20:15 Sodium 144 mmol/L (136-145) 12/21/19 20:27 Potassium 3.7 mmol/L (3.5-5.1) 12/21/19 20:27 Chloride 108 mmol/L (98-107) H 12/21/19 20:27 Carbon Dioxide 16 mmol/L (22-29) L 12/21/19 20:27 BUN 36 mg/dL (8.4-25.7) H 12/21/19 20:27 Creatinine 3.85 mg/dL (0.7-1.3) H 12/21/19 20:27 Glucose 326 mg/dL (70-105) H 12/21/19 20:27 Lactic Acid 9.5 mmol/L (0.5-2.2) H* 12/21/19 20:27 Calcium 9.0 mg/dL (7.8-10.44) 12/21/19 20:27 Total Bilirubin 0.6 mg/dL (0.2-1.2) 12/21/19 20:27 AST 38 U/L (5-34) H 12/21/19 20:27 ALT 26 U/L (8-55) 12/21/19 20:27 Alkaline Phosphatase 83 U/L (40-110) 12/21/19 20:27 CK-MB (CK-2) 11.5 ng/mL (0-6.6) H* 12/21/19 20:27 Serum Total Protein 5.8 g/dL (6.0-8.3) L 12/21/19 20:27 Albumin 3.5 g/dL (3.5-5.0) 12/21/19 20:27 Urine Ketones Negative mg/dL (Negative) 12/21/19 19:51 Urine Blood Negative (Negative) 12/21/19 19:51 Urine Nitrite Negative (Negative) 12/21/19 19:51 Ur Leukocyte Esterase 25 David/uL (Negative) 12/21/19 19:51 Urine RBC 0-3 HPF (0-3) 12/21/19 19:51 Urine WBC 4-6 HPF (0-3) A 12/21/19 19:51 Ur Squamous Epith Cells 4-6 HPF (0-3) A 12/21/19 19:51 Urine Bacteria None Seen HPF (None Seen) 12/21/19 19:51 - EKG Interpretation EKG: Sinus Tachycardia- no ST changes - Radiology Interpretation Chest x-ray Status: image reviewed by me (Poor inspiratory effort, lung andrade that are visible are unremarkable, cardiomegaly), report reviewed by me FMR H&P: A/P - Problem List (1) Septic shock Current Visit: No Status: Acute Code(s): A41.9 - SEPSIS, UNSPECIFIED ORGANISM; R65.21 - SEVERE SEPSIS WITH SEPTIC SHOCK (2) Metabolic encephalopathy Current Visit: No Status: Resolved Code(s): G93.41 - METABOLIC ENCEPHALOPATHY (3) Ketoacidosis due to diabetes mellitus Current Visit: Yes Status: Acute Code(s): E11.10 - TYPE 2 DIABETES MELLITUS WITH KETOACIDOSIS WITHOUT COMA (4) Adrenal insufficiency Current Visit: Yes Status: Acute Code(s): E27.40 - UNSPECIFIED ADRENOCORTICAL INSUFFICIENCY (5) BPH (benign prostatic hyperplasia) Current Visit: No Status: Chronic Code(s): N40.0 - BENIGN PROSTATIC HYPERPLASIA WITHOUT LOWER URINRY TRACT SYMP (6) Chronic anticoagulation Current Visit: No Status: Chronic 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(s): 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 Comment: Continue Xarelto (7) Diabetes type 2, controlled Current Visit: No Status: Chronic Code(s): E11.9 - TYPE 2 DIABETES MELLITUS WITHOUT COMPLICATIONS (8) Dyslipidemia Current Visit: No Status: Chronic Code(s): E78.5 - HYPERLIPIDEMIA, UNSPECIFIED (9) Essential hypertension Current Visit: No Status: Chronic Code(s): I10 - ESSENTIAL (PRIMARY) HYPERTENSION Comment: controlled.monitor.Pt w Potential for hypotension w Still's disease (10) H/O deep venous thrombosis Current Visit: No Status: Chronic Code(s): Z86.718 - PERSONAL HISTORY OF OTHER VENOUS THROMBOSIS AND EMBOLISM (11) Still's disease Current Visit: No Status: Chronic Code(s): M08.20 - JUVENILE RHEUMATOID ARTHRITIS WITH SYSTEMIC ONSET, UNSP SITE (12) Lactic acidosis Current Visit: No Status: Resolved Code(s): E87.2 - ACIDOSIS (13) Metabolic acidosis Current Visit: No Status: Resolved Code(s): E87.2 - ACIDOSIS (14) Balanitis Current Visit: Yes Status: Acute Code(s): N48.1 - BALANITIS (15) Folliculitis Current Visit: Yes Status: Acute Code(s): L73.9 - FOLLICULAR DISORDER, UNSPECIFIED - Plan Severe Hypotension 2/2 Septic Shock vs Adrenal Crisis: -hypotensive, tachycardic, WBC 19, no clear source of infection- UA neg, CXR neg but poor quality, pustular rash on chest, and what appears to be balanitis on exam. Hx of MRSA bacteremia and recent MRSA UTI. -s/p cefepime and rocephin in ED. Will start Linezolid and Zosyn for broad coverage. -blood cx and urine cx pending as well as cx from pustular rash -repeat CXR in AM. -procal pending -less likely COVID, but with hypoxemia on ABG and sepsis of unk source and pt unable to provide hx, COVID test pending -LA 9->4 -s/p almost 4L NS with no improvement in BP, multiple previous admissions with similar presentation, determined to be adrenal crisis -100mg IV Hydrocortisone x1, then 60mg IV q6h -R femoral CVC placed, levophed ggt ordered Mild DKA vs HHS: -doesn't quite meet criteria with beta-hydroxybutyrate of 1.1 and BS at its highest 500 but in light of AG metabolic acidosis, borderline pH, and giving high dose steroids, will start on insulin drip protocol -serum Osm, Mg, Phos pending -q4h BMP, q1h accuchecks Hx of DVT on Anticoagulation -On Xarelto at home -not awake enough for PO, will give therapeutic lovenox -coags pending NSTEMI, type 2: -likely 2/2 demand -trend troponins -anticoagulation with lovenox -BNP pending -repeat EKG -consider consult Cardiology in AM Combined CHF: -echo 06/2019 EF 50-55% -echo 08/201819 grade 1/3 diastolic dysfunction -of note, per chart review, pt has hx of HFrEF with reduced EF down to 10-15% in events of sepsis -BNP pending COVID PUI: -Covid swab pending -Covid labs: Ferritin, LDH, CRP, D-dimer -droplet precautions Balanitis: -likely fungal, will try topical clotrimazole Thrombocytopenia -trend with repeat CBC in AM DM: -unk home meds -awaiting med rec, will transition over to long acting insulin based off last admission after drip turned off. HTN: -hypotensive, hold home meds Adult Still Disease on Daily Steroids: -plan to restart home meds once med rec is complete -d/c home on Anakinra 100mg SQ QPM at last hospital stay Adrenal Insufficiency: -last discharged on Prednisone 10mg PO daily HLD: -restart home meds once tolerating PO. BPH: -restart flomax once PO -monitor for retention and place dobbins if needed. Dispo: Guarded, admit to CCU, LOS >48h. DVT PPx: IV lovenox GI PPx: IV protonix Code status: Full PCP: Dr. Aiken FMR H&P: Upper Level - Plan Date/Time: 12/21/19 6396 I, [], have evaluated this patient and agree with findings/plan as outlined by international exchange coordinator resident. Pertinent changes/additions are listed here. Addendum - Attending - Attending Attestation Date/Time: 12/22/19 1496 I personally evaluated the patient and discussed the management with Dr. pa at time of admission to CCU. I agree with the History, Examination, Assessment and Plan documented above with any addition or exceptions noted below. Central line placed for hypotension. See separate note.
[2019-12-21 23:01] LABS: Actual Bicarbonate (HCO3a) 14.1 mEq/L (22-28); Analyzer IN Cardio ER; Base Excess (BEa) -9.6 mEq/L (-2.0 to +3.0); CO2 Tension 26.1 mmHg (35.0-45.0); Calcium, Ionized 1.17 mmol/L (1.12-1.30); Carboxyhemoglobin (COHb) 0.5 gm% (0.0-3.0); Hemoglobin (Hb) 15.4 g/dL (14.0-18.0); O2 Tension (PaO2), arterial 69.5 mmHg (80.0-100.0); Potassium - ABG Lab 3.58 mmol/L (3.70-5.30); pH, Arterial 7.35 (7.35-7.45)
[2019-12-21 23:05] LABS: ALV-art Gradient 47.605 (0-20); Puncture Site RRA
[2019-12-21] MEDS ORDERED: Hydrocortisone Sod Succ/PF 100 mg/2 ml Vial IVP SCH (23:15)
[2019-12-21] MEDS ORDERED: CCU Electrolyte Replacement 1 EACH IVPB SCH (23:16)
[2019-12-21] MEDS ORDERED: NS 0.9% w/ 20 MEQ KCL 1,000 ML IV PRN ×2 (23:16)
[2019-12-21] MEDS ORDERED: Sodium Chloride 0.9% 1,000 ML IV PRN ×4 (23:16)
[2019-12-21] MEDS ORDERED: D5 1/2 NS w/20 mEq KCL 1,000 ML IV PRN (23:16)
[2019-12-21] MEDS ORDERED: Dextrose 5 %-0.45 % NaCl 1,000 ML IV PRN (23:16)
[2019-12-21] MEDS ORDERED: Ondansetron ODT 4 MG TAB SL PRN (23:23)
[2019-12-21] MEDS ORDERED: Ondansetron PF 4 MG/2 ML Vial IVP PRN (23:23)
[2019-12-21] MEDS ORDERED: Acetaminophen 325 MG TAB PO PRN (23:23)
[2019-12-21] MEDS ORDERED: Potassium Chloride 20 MEQ TAB PO PRN (23:25)
[2019-12-21] MEDS ORDERED: Potassium Phosphate 15 MMOL in Sodium Chloride 0.9% 250 ML 250 ML IV PRN (23:25)
[2019-12-21] MEDS ORDERED: Potassium Phosphate 12 MMOL in Sodium Chloride 0.9% 250 ML 250 ML IV PRN (23:25)
[2019-12-21] MEDS ORDERED: Potassium Chloride 40 MEQ in Premix Bag 1 BAG IVPB PRN (23:25)
[2019-12-21] MEDS ORDERED: Magnesium 2 GM/50 ML 2 GM in Premix Bag 1 BAG IVPB PRN (23:25)
[2019-12-21] MEDS ORDERED: PHOS-NAK 1 PKT PACK PO PRN ×2 (23:25)
[2019-12-21] MEDS ORDERED: Magnesium Oxide 400 MG TAB PO PRN ×2 (23:25)
[2019-12-21] MEDS ORDERED: CCU ELECTROLYTE REPLACEMENT PROTOCOL FS PRN (23:25)
[2019-12-21] MEDS ORDERED: Potassium Chloride 40 MEQ in Sodium Chloride 0.9% 250 ML 250 ML IVPB PRN (23:25)
[2019-12-21] MEDS ORDERED: Potassium Phosphate 9 MMOL in Sodium Chloride 0.9% 100 ML IVPB PRN (23:25)
[2019-12-21 23:26] VITALS: BMI 25.9
[2019-12-21] MEDS ORDERED: HUMULIN R 100 UNITS in Sodium Chloride 0.9% 100 ML IVPB SCH (23:30)
[2019-12-22 00:08] LABS: Anion Gap 19 mmol/L (10-20); BUN (Urea Nitrogen) 36 mg/dL (8.4-25.7); Calc. Creatinine Clearance 24 mL/min (70-130); Calcium 8.7 mg/dL (7.8-10.44); Carbon Dioxide 16 mmol/L (22-29); Chloride 113 mmol/L (98-107); Estimated GFR-MDRD 22; Glucose 302 mg/dL (70-105); Magnesium 1.6 mg/dL (1.6-2.6); Phosphorus 3.8 mg/dL (2.3-4.7); Potassium 3.6 mmol/L (3.5-5.1); Sodium 144 mmol/L (136-145)
[2019-12-22 00:18] LABS: Lactic Acid 4.9 mmol/L (0.5-2.2)
[2019-12-22] MEDS ORDERED: Sodium Chloride 0.9% 1,000 ML IV SCH (00:45)
[2019-12-22] MEDS ORDERED: Norepinephrine 8 MG/0.9% NS 250 ML IVPB SCH (00:51)
[2019-12-22 01:48] LABS: Critical Call Chem Troponin I RESULT DECREASING; Troponin I 0.303 ng/mL (< 0.028)
[2019-12-22 02:07] LABS: INR-International Normal Ratio 1.3; PTT 32.3 SEC (22.9-36.1); Prothrombin Time 16.2 SEC (12.0-14.7)
[2019-12-22 02:22] LABS: D-Dimer Test 3.66 *mcg/mL (0.27-0.43)
[2019-12-22] MEDS: Piperacillin/Tazobactam 2.25 GM in Sodium Chloride 0.9% 100 ML IVPB SCH ×3 (02:51→17:40)
[2019-12-22] MEDS: Linezolid 600 MG in Premix Bag 1 BAG IVPB SCH ×2 (02:51→13:19)
--- NOTE | 2019-12-22 03:56 | PDOC.BPN ---
- Brief Progress Note Date/Time: 12/22/19 0355 I personally evaluated the patient and discussed the management with Dr. Pa at time of admission. H&P pending. I agree with the History, Examination, Assessment and Plan as discussed.
--- NOTE | 2019-12-22 04:33 | PDOC.OP ---
Operative Note - Operative Note Operative Note: INDICATION: hypotension PROCEDURE BUYING INTERN: July Pa DO and Itz Ko MD ATTENDING PHYSICIAN: Itz Ko MD- In Attendance Ultrasound Used: Y CONSENT: Consent was obtained from patient prior to the procedure. Indications, risks, and benefits were explained at length. PROCEDURE SUMMARY: A time out was performed. My hands were washed immediately prior to the procedure. I wore a surgical cap, mask with protective eyewear, sterile gown and sterile gloves throughout the procedure. The RIGHT inguinal region was prepped using chlorhexidine scrub and draped in sterile fashion using a full drape and sterile probe cover employed. The femoral pulse was identified. Anesthesia was achieved using 1% lidocaine. Using ultrasound guidance, the introducer needle was inserted medial to the femoral artery, inferior to the inguinal crease and into the femoral vein. Venous blood was withdrawn. The syringe was removed and a guidewire was advanced although was difficult so the wire and introducer needle were removed and needle repositioned medially. Visualizing with US, introducer needle advanced into the femoral vein a bit more superiorly. Venous blood was returned. The guidewire was advanced through the needle easily and syringe and the introducer needle removed over the guidewire. A small incision was made at the skin surface with a scalpel and the introducer needle was exchanged for a dilator over the guidewire. After appropriate dilation was obtained, the dilator was exchanged over the wire for a triple lumen central venous catheter. The wire was removed and the catheter was sutured in place at 20 cm. A sterile CVC dressing shield was placed over the catheter at the insertion site. The patient tolerated the procedure without any hemodynamic compromise. At time of procedure completion, all ports aspirated and flushed properly. Estimated blood loss is 5ml.
[2019-12-22 04:51] LABS: Anion Gap 18 mmol/L (10-20); BUN (Urea Nitrogen) 36 mg/dL (8.4-25.7); Calc. Creatinine Clearance 26 mL/min (70-130); Calcium 8.6 mg/dL (7.8-10.44); Carbon Dioxide 17 mmol/L (22-29); Chloride 116 mmol/L (98-107); Estimated GFR-MDRD 24; Glucose 178 mg/dL (70-105); Potassium 3.7 mmol/L (3.5-5.1); Sodium 147 mmol/L (136-145)
[2019-12-22 04:57] LABS: Troponin I 0.275 ng/mL (< 0.028)
[2019-12-22 05:00] LABS: Band 13 % (5-11); Hemoglobin 15.1 g/dL (14.0-18.0); Lymphocytes 8 % (21-51); MDiff Complete? YES; Mean Corpuscular Hemoglobin 31.2 pg (27.0-31.0); Mean Corpuscular Volume 97.5 fL (78.0-98.0); Mean Platelet Volume 8.8 fL (7.4-10.4); Metamyelocyte 4 % (0-0); Monocytes 7 % (0-10); Neutrophil 68 % (42-75); Platelet Count 143 thou/uL (130-400); Platelet Morphology Comment Appears Adequate; RBC Distribution Width 16.5 % (11.5-14.5); RBC Morphology Normal; Red Blood Cell (RBC) Count 4.85 mill/uL (4.70-6.10); White Blood Cell (WBC) Count 18.8 thou/uL (4.8-10.8)
[2019-12-22] MEDS: Hydrocortisone Sod Succ/PF 100 mg/2 ml Vial IVP SCH ×4 (05:07→23:28)
[2019-12-22 07:16] LABS: Hemoglobin A1c 10.9 % (4.0-6.0)
[2019-12-22] MEDS: Famotidine/PF 20 mg/2ml Vial SLOW IVP SCH (07:24)
[2019-12-22] MEDS: Enoxaparin Sodium 80 MG/0.8 ML SYRINGE SC SCH (07:24)
[2019-12-22] MEDS: Clotrimazole 1% Cream 15 GM TUBE TOP SCH (07:25)
--- NOTE | 2019-12-22 07:35 | PDOC.FM ---
- Subjective Subjective: Patient a&o x2, still mildly delirious but aware and conversive, able to answer most questions Denies pain or any other concerns. States he has been taking steroid & anakinra every day. He had pulled his right femoral line out his morning. Talked with daughter, Akilah, who lives in [place] and states patient lives with mother & sister who would know more about his medication regimen-provided- phone number [phone] - Objective MAR Reviewed: Yes Vital Signs & Weight: Vital Signs (12 hours) Temp Pulse Ox 12/22/19 06:59 100 12/22/19 04:00 97.8 F 12/22/19 01:02 98 12/22/19 01:00 97.4 F L 12/22/19 00:00 100 12/21/19 23:15 97.7 F Weight Weight 75.1 kg Most Recent Monitor Data Heart Rate from ECG 116 NIBP 119/85 NIBP BP-Mean 96 Respiration from ECG 15 SpO2 100 I&O: 12/21/19 12/22/19 12/23/19 06:59 06:59 06:59 Intake Total 2561.6 Output Total 1130 Balance 1431.6 Result Diagrams: 12/22/19 03:50 12/22/19 07:19 Phys Exam - Physical Examination Constitutional: NAD a&o x2 Respiratory: no wheezing, clear to auscultation bilateral Cardiovascular: no rub tachycardic Gastrointestinal: soft, non-tender Musculoskeletal: no edema Neurological: non-focal, moves all 4 limbs Deviation from normal: erythematous around head of penis Dx/Plan (1) Hyperglycemia due to type 2 diabetes mellitus Code(s): E11.65 - TYPE 2 DIABETES MELLITUS WITH HYPERGLYCEMIA Status: Acute (2) 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 DISEASE Status: Chronic (3) Hypotension Status: Resolved (4) Lactic acidosis Code(s): E87.2 - ACIDOSIS Status: Resolved (5) Metabolic encephalopathy Code(s): G93.41 - METABOLIC ENCEPHALOPATHY Status: Resolved - Plan Plan: Severe Hypotension 2/2 Septic Shock vs Adrenal Crisis vs. sequelae of adult's still's disease -MAPs >65 off of levophed, continue monitoring, if drops will bolus, if still low then may need central line replaced -Suspect less likely sepsis in light of negative infectious workup but will continue Linezolid & Zosyn pending blood cultures -Severe hypotension likely from Adrenal crisis or adult's still's disease. History is difficult to obtain since patient still encephalopathic. Patient may have been noncompliant in past but need to revisit once his mental status has improved. -ESR, ferritin, CRP and procal could all be elevated from ASD, but being treated for infection -Continue stress dosing of solucortef -Will consult pulmonology, recs appreciated Hyperglycemia in IDDM2 -Acidosis likely secondary to lactic acid -Agap closed on AM labs, will discontinue DKA protocol -Accucheck q1hr, monitor today with sliding scale, restart home insulin tonight Hx of DVT on Anticoagulation -On Xarelto at home -not awake enough for PO, will give therapeutic lovenox -Once can tolerate PO can restart home xarelto NSTEMI, type 2 -likely 2/2 demand -Troponins downtrending -EKG with no signs of acute ischemia Combined CHF: -BNP in 1500s- echo 06/2019 EF 50-55%, received several liters of fluid -Doesn't appear fluid overloaded at this time -Monitor I/O, daily weights COVID PUI: -Covid swab pending -droplet precautions pending results Balanitis: -likely fungal, will try topical clotrimazole Thrombocytopenia -stable HTN: -hypotensive, hold home meds Adult Still Disease on Daily Steroids: -plan to restart home meds once med rec is complete -d/c home on Anakinra 100mg SQ QPM at last hospital stay Adrenal Insufficiency: -last discharged on Prednisone 10mg PO daily -will stress dose solucortef HLD: -restart home meds once tolerating PO. BPH: -restart flomax once PO -monitor for retention and place dobbins if needed. Dispo: Stable but guarded DVT PPx: IV lovenox GI PPx: IV protonix Lines: Peripheral, no CVC Code status: Full PCP: Dr. Aiken Addendum - Attending - Attending Attestation Date/Time: 12/22/19 8767 I personally evaluated the patient and discussed the management with Dr. Thomas. I agree with the History, Examination, Assessment and Plan documented above with any addition or exceptions noted below. Patient here for initial concern for sepsis/septic shock and DKA. However, patient has had multiple similar presentations related to his medications for Still's disease. He has no evidence of systemic infection, though will continue broad spectrum abx until cultures result. He is on IV fluids, pressures improved. Previously on Levophed but now stopped as central line was pulled out. Monitor fluid balance and change plan as needed. He was never in DKA, his acidosis explained by lactic acidosis. He is off insulin drip, continue to monitor blood sugars. Stress dosing steroids and needs to resume Anakinra as soon as we can get it here. Awaiting hopeful negative COVID.
--- NOTE | 2019-12-22 08:01 | RAD ---
RADIOGRAPH CHEST 1 VIEW: DATE: 12/22/2019 5:40 AM HISTORY: 59-year-old male with sepsis FINDINGS: There is no airspace density, pulmonary edema, or pneumothorax. Low lung volumes. No interval change since 12/21/2019. IMPRESSION: No acute pulmonary findings.
[2019-12-22 08:07] LABS: Anion Gap 15 mmol/L (10-20); BUN (Urea Nitrogen) 35 mg/dL (8.4-25.7); Calc. Creatinine Clearance 30 mL/min (70-130); Calcium 8.6 mg/dL (7.8-10.44); Carbon Dioxide 16 mmol/L (22-29); Chloride 120 mmol/L (98-107); Estimated GFR-MDRD 28; Glucose 71 mg/dL (70-105); Potassium 4.1 mmol/L (3.5-5.1); Sodium 147 mmol/L (136-145)
[2019-12-22 08:09] LABS: Lactic Acid 4.9 mmol/L (0.5-2.2)
[2019-12-22] MEDS ORDERED: Heparin 5,000 UNITS/ML VIAL SC SCH (09:00)
[2019-12-22] MEDS ORDERED: Dextrose 50% Abboject 50 ML SYRINGE SLOW IVP PRN (09:15)
[2019-12-22] MEDS ORDERED: Dextrose 5% in Water 1,000 ML IV PRN (09:15)
[2019-12-22] MEDS ORDERED: Lactated Ringer's 1,000 ML IV SCH ×2 (09:15→15:30)
[2019-12-22] MEDS ORDERED: HumaLOG 300 UNITS/3 ML VIAL SC PRN (09:15)
[2019-12-22] MEDS ORDERED: ANAKINRA SC SCH (12:30)
[2019-12-22 13:20] LABS: SARS-CoV-2 MS2 Positive; SARS-CoV-2 N Gene Negative; SARS-CoV-2 S Gene Negative; SARS-CoV-2 orf1ab Negative
[2019-12-22 14:35] LABS: Lactic Acid 3.1 mmol/L (0.5-2.2)
[2019-12-22 14:37] LABS: Anion Gap 20 mmol/L (10-20); BUN (Urea Nitrogen) 33 mg/dL (8.4-25.7); Calc. Creatinine Clearance 36 mL/min (70-130); Carbon Dioxide 14 mmol/L (22-29); Chloride 120 mmol/L (98-107); Estimated GFR-MDRD 35; Glucose 135 mg/dL (70-105); Potassium 4.5 mmol/L (3.5-5.1); Sodium 149 mmol/L (136-145)
[2019-12-22 16:33] LABS: Anion Gap 20 mmol/L (10-20); BUN (Urea Nitrogen) 32 mg/dL (8.4-25.7); Calc. Creatinine Clearance 37 mL/min (70-130); Calcium 9.1 mg/dL (7.8-10.44); Carbon Dioxide 14 mmol/L (22-29); Chloride 119 mmol/L (98-107); Estimated GFR-MDRD 35; Glucose 162 mg/dL (70-105); Potassium 4.6 mmol/L (3.5-5.1); Sodium 148 mmol/L (136-145)
[2019-12-22 18:58] LABS: Lactic Acid 4.5 mmol/L (0.5-2.2)
[2019-12-22 19:04] LABS: Anion Gap 22 mmol/L (10-20); BUN (Urea Nitrogen) 32 mg/dL (8.4-25.7); Calc. Creatinine Clearance 37 mL/min (70-130); Calcium 8.9 mg/dL (7.8-10.44); Carbon Dioxide 10 mmol/L (22-29); Chloride 122 mmol/L (98-107); Estimated GFR-MDRD 36; Glucose 142 mg/dL (70-105); Potassium 4.6 mmol/L (3.5-5.1); Sodium 149 mmol/L (136-145)
[2019-12-22] MEDS: Dextrose 5% in Water 1,000 ML IV SCH (20:37)
[2019-12-22] MEDS ORDERED: Ondansetron PF 4 MG/2 ML Vial IVP PRN (20:42)
[2019-12-22] MEDS: Insulin Glargine 20 UNITS in Pre-Filled Syringe 1 EACH SC SCH (21:14)
[2019-12-23 00:15] LABS: Anion Gap 21 mmol/L (10-20); BUN (Urea Nitrogen) 32 mg/dL (8.4-25.7); Calc. Creatinine Clearance 38 mL/min (70-130); Calcium 8.5 mg/dL (7.8-10.44); Carbon Dioxide 15 mmol/L (22-29); Chloride 116 mmol/L (98-107); Estimated GFR-MDRD 37; Glucose 178 mg/dL (70-105); Potassium 4.6 mmol/L (3.5-5.1); Sodium 147 mmol/L (136-145)
[2019-12-23] MEDS: HumaLOG 300 UNITS/3 ML VIAL SC PRN ×7 (00:55→09:19)
[2019-12-23] MEDS: Piperacillin/Tazobactam 2.25 GM in Sodium Chloride 0.9% 100 ML IVPB SCH ×3 (01:01→18:02)
[2019-12-23] MEDS: Linezolid 600 MG in Premix Bag 1 BAG IVPB SCH ×2 (02:14→14:47)
[2019-12-23 04:34] LABS: Anion Gap 17 mmol/L (10-20); BUN (Urea Nitrogen) 30 mg/dL (8.4-25.7); Calc. Creatinine Clearance 42 mL/min (70-130); Calcium 8.5 mg/dL (7.8-10.44); Carbon Dioxide 15 mmol/L (22-29); Chloride 117 mmol/L (98-107); Estimated GFR-MDRD 42; Glucose 218 mg/dL (70-105); Potassium 4.3 mmol/L (3.5-5.1); Sodium 145 mmol/L (136-145)
[2019-12-23 04:35] LABS: Lactic Acid 2.6 mmol/L (0.5-2.2)
[2019-12-23 04:51] LABS: Band 31 % (5-11); Hemoglobin 14.5 g/dL (14.0-18.0); Lymphocytes 5 % (21-51); MDiff Complete? YES; Mean Corpuscular HGB CONC 32.7 g/dL (32.0-36.0); Mean Corpuscular Hemoglobin 31.3 pg (27.0-31.0); Mean Corpuscular Volume 95.5 fL (78.0-98.0); Metamyelocyte 1 % (0-0); Monocytes 7 % (0-10); Neutrophil 56 % (42-75); Platelet Count 108 thou/uL (130-400); Platelet Morphology Comment Appears Decreased; RBC Distribution Width 16.7 % (11.5-14.5); Red Blood Cell (RBC) Count 4.65 mill/uL (4.70-6.10); White Blood Cell (WBC) Count 17.5 thou/uL (4.8-10.8)
[2019-12-23] MEDS: Hydrocortisone Sod Succ/PF 100 mg/2 ml Vial IVP SCH ×4 (06:43→23:59)
[2019-12-23] MEDS: Dextrose 5% in Water 1,000 ML IV SCH (06:51)
[2019-12-23 07:56] LABS: Anion Gap 18 mmol/L (10-20); BUN (Urea Nitrogen) 29 mg/dL (8.4-25.7); Calc. Creatinine Clearance 42 mL/min (70-130); Calcium 8.2 mg/dL (7.8-10.44); Carbon Dioxide 14 mmol/L (22-29); Chloride 116 mmol/L (98-107); Estimated GFR-MDRD 43; Glucose 213 mg/dL (70-105); Potassium 3.8 mmol/L (3.5-5.1); Sodium 144 mmol/L (136-145)
[2019-12-23] MEDS: Famotidine/PF 20 mg/2ml Vial SLOW IVP SCH (08:24)
[2019-12-23] MEDS: Enoxaparin Sodium 80 MG/0.8 ML SYRINGE SC SCH (08:25)
[2019-12-23] MEDS: Clotrimazole 1% Cream 15 GM TUBE TOP SCH (08:28)
--- NOTE | 2019-12-23 10:09 | PDOC.FM ---
- Subjective Subjective: did well overnight, still not requiring pressors. Oriented to person, place, and month (not year). Pt has no complaints or concerns. He states he may have missed a few doses of his home meds prior to presentation to hospital though he feels he has generally been compliant to meds. - Objective Vital Signs & Weight: Vital Signs (12 hours) Temp Pulse Ox 12/23/19 07:08 100 12/23/19 07:00 97.9 F 12/23/19 04:00 98.1 F 12/23/19 00:00 97.9 F Weight Weight 73.6 kg Most Recent Monitor Data Heart Rate from ECG 99 NIBP 104/73 NIBP BP-Mean 83 Respiration from ECG 17 SpO2 100 I&O: 12/22/19 12/23/19 12/24/19 06:59 06:59 06:59 Intake Total 2561.6 4812.0 220 Output Total 1130 3840 230 Balance 1431.6 972.0 -10 Result Diagrams: 12/23/19 03:46 12/23/19 07:12 Phys Exam - Physical Examination Constitutional: NAD HEENT: moist MMs, sclera anicteric Neck: supple, full ROM Respiratory: no wheezing, clear to auscultation bilateral Cardiovascular: no significant murmur tachy Gastrointestinal: soft, non-tender Musculoskeletal: no edema, pulses present Neurological: normal sensation, moves all 4 limbs Psychiatric: normal affect Skin: no rash, normal turgor Dx/Plan (1) Adrenal insufficiency Code(s): E27.40 - UNSPECIFIED ADRENOCORTICAL INSUFFICIENCY Status: Acute (2) Balanitis Code(s): N48.1 - BALANITIS Status: Acute (3) Hyperglycemia due to type 2 diabetes mellitus Code(s): E11.65 - TYPE 2 DIABETES MELLITUS WITH HYPERGLYCEMIA Status: Acute (4) Hx of deep venous thrombosis Code(s): Z86.718 - PERSONAL HISTORY OF OTHER VENOUS THROMBOSIS AND EMBOLISM Status: Acute (5) UTI (urinary tract infection) Status: Acute Qualifiers: Urinary tract infection type: acute cystitis Hematuria presence: without hematuria Qualified Code(s): N30.00 - Acute cystitis without hematuria (6) 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 DISEASE Status: Chronic - Plan Plan: Severe Hypotension 2/2 Septic Shock vs Adrenal Crisis vs. sequelae of adult's still's disease A- stable off pressors for 1 day. Suspect less likely sepsis in light of negative infectious workup but will continue Linezolid & Zosyn pending blood cultures -Severe hypotension likely from Adrenal crisis or adult's still's disease. History is difficult to obtain since patient still encephalopathic. Patient may have been noncompliant in past but need to revisit once his mental status has improved. ESR, ferritin, CRP and procal could all be elevated from ASD, but being treated for infection P- transition to tele -Continue stress dosing of solucortef -f/u pulm recs Hypernatremia A- resolved. possibly 2/2 Large volumes of NS that were give considering probable dysfunction of renal electrolyt regulation with adrenal insufficiency P- PO fluid encouragement -monitor daily Free water deficit A- on admission had 2.9L free water deficit. has been replenished 1.4L this AM. Pt not tolerating PO intake P- will DC D5W and encourage PO intake Hyperglycemia in IDDM2 -Acidosis likely secondary to lactic acid -Agap closed on AM labs, will discontinue DKA protocol -Accucheck q1hr, monitor today with sliding scale, restart home insulin tonight Adult Still Disease on Daily Steroids: A- per plan above, restarted home anakinra P- continue solucortef with plans to transition back to home prednisone Adrenal Insufficiency: A- last discharged on Prednisone 10mg PO daily P- will stress dose solucortef, plans to transition to prednisone at some point Hx of DVT on Anticoagulation A- has been on lovenox bc of not tolerating PO P- DC lovenox, restart home xarelto NSTEMI, type 2 A- likely 2/2 demand. Troponins downtrended. EKG with no signs of acute ischemia P- monitor for cardiac Sx Combined CHF: A-BNP in 1500s- echo 06/2019 EF 50-55%, received several liters of fluid. Doesn' t appear fluid overloaded at this time P- Monitor I/O, daily weights COVID PUI: -covid negative Balanitis: -likely fungal, will try topical clotrimazole Thrombocytopenia -stable HTN: -hypotensive, hold home meds HLD: -restart home meds once tolerating PO. BPH: -restart flomax once PO. monitor for retention and place dobbins if needed. Dispo: Stable transfer to tele DVT PPx: IV lovenox GI PPx: IV protonix Lines: Peripheral, no CVC Code status: Full PCP: Dr. Aiken Addendum - Attending - Attending Attestation Date/Time: 12/23/19 6582 I personally evaluated the patient and discussed the management with Dr. Mccall. I agree with the History, Examination, Assessment and Plan documented above with any addition or exceptions noted below. Patient mentation improved. BP improved. Here for septic shock versus adrenal crisis and acute stopping Anakinra therapy, which has led to similar presentations in the past. He continues to have electrolyte abnormalities that are improving. Consider RTA but labs inconsistent with that. PO hydration and diet, trend. BP stable and patient will be transferred out of CCU for continued steroids and Anakinra treatment.
[2019-12-23] MEDS: ANAKINRA SC SCH (12:17)
[2019-12-23] MEDS: Insulin Glargine 20 UNITS in Pre-Filled Syringe 1 EACH SC SCH (20:47)
--- NOTE | 2019-12-23 21:29 | CON ---
DATE OF CONSULTATION: 12/23/2019 HISTORY OF PRESENT ILLNESS: Mr. Knight is a 59-year-old male who was admitted to the hospital on the 1st with complaints of weakness. He was apparently somnolent on admission and hypotensive. He has been volume resuscitated. He is a diabetic. He was admitted as a COVID rule out. His serology is negative. He is interactive and has no complaints, although he does not remember coming to the hospital. PAST MEDICAL HISTORY: Remarkable for 1. Hypertension. 2. Diabetes. 3. Still's disease. 4. Adrenal insufficiency. 5. Cardiomyopathy. 6. History of cholecystectomy. 7. History of shoulder surgery. 8. History of knee surgery. 9. History of cervical spine surgery. SOCIAL HISTORY: Nonsmoker and nondrinker. FAMILY HISTORY: Negative for lung disease in early age. REVIEW OF SYSTEMS: Otherwise negative. He has had similar admissions in the past that had been attributed to his adult Still's disease. PHYSICAL EXAMINATION: VITAL SIGNS: He is afebrile. Heart rate is 101, respiratory rate is 18, oximetry is 98% on room air, blood pressure is 96/66. HEAD AND NECK: Unremarkable. LUNGS: Clear. HEART: Regular rhythm. ABDOMEN: Soft and nontender. EXTREMITIES: Without clubbing, cyanosis, or edema. LABORATORY DATA: Urine cultures positive. Blood cultures are negative. IMPRESSION: Adult Still's disease with a presentation similar to past presentations of hypotension and confusion. He has responded to his current management. He is stable to move out of the Critical Care Unit, in my opinion. This is a 70 min consult with greater than 50% of the time spent on the unit with coordination of care. Job ID: [id number] MTDD
[2019-12-24] MEDS: Piperacillin/Tazobactam 2.25 GM in Sodium Chloride 0.9% 100 ML IVPB SCH ×3 (03:36→17:04)
[2019-12-24] MEDS: Hydrocortisone Sod Succ/PF 100 mg/2 ml Vial IVP SCH (05:44)
[2019-12-24 06:20] LABS: Band 11 % (5-11); Hemoglobin 11.5 g/dL (14.0-18.0); Hypochromia SLIGHT = 6-15 cells (100X) (0-5/hpf); Lymphocytes 3 % (21-51); MDiff Complete? YES; Mean Corpuscular HGB CONC 31.1 g/dL (32.0-36.0); Mean Corpuscular Hemoglobin 29.8 pg (27.0-31.0); Mean Corpuscular Volume 95.8 fL (78.0-98.0); Mean Platelet Volume 9.3 fL (7.4-10.4); Monocytes 4 % (0-10); Neutrophil 82 % (42-75); Platelet Count 112 thou/uL (130-400); Platelet Morphology Comment Appears Decreased; RBC Distribution Width 16.5 % (11.5-14.5); Red Blood Cell (RBC) Count 3.86 mill/uL (4.70-6.10); White Blood Cell (WBC) Count 11.7 thou/uL (4.8-10.8)
[2019-12-24 06:31] LABS: Anion Gap 15 mmol/L (10-20); BUN (Urea Nitrogen) 29 mg/dL (8.4-25.7); Calc. Creatinine Clearance 47 mL/min (70-130); Calcium 8.2 mg/dL (7.8-10.44); Carbon Dioxide 17 mmol/L (22-29); Chloride 112 mmol/L (98-107); Estimated GFR-MDRD 48; Glucose 221 mg/dL (70-105); Potassium 3.7 mmol/L (3.5-5.1); Sodium 140 mmol/L (136-145)
--- NOTE | 2019-12-24 07:47 | PDOC.FM ---
- Subjective Subjective: NAEO. Patient sitting up in bed eating breakfast. States that he is feeling much better today. He has no complaints or concerns. States that he has been ambulating and tolerating PO without any issues. - Objective MAR Reviewed: Yes Vital Signs & Weight: Vital Signs (12 hours) Temp Pulse Resp BP Pulse Ox 12/24/19 07:00 97.6 F 84 20 101/73 99 12/23/19 20:00 98 Weight Weight 73.6 kg Most Recent Monitor Data Heart Rate from ECG 99 NIBP 94/67 NIBP BP-Mean 76 Respiration from ECG 25 SpO2 100 I&O: 12/23/19 12/24/19 12/25/19 06:59 06:59 06:59 Intake Total 4812.0 600 Output Total 3840 930 Balance 972.0 -330 Result Diagrams: 12/24/19 05:29 12/24/19 05:29 Phys Exam - Physical Examination Constitutional: NAD HEENT: PERRLA, moist MMs, sclera anicteric Neck: supple, full ROM Respiratory: clear to auscultation bilateral Cardiovascular: RRR, no significant murmur, no rub Gastrointestinal: soft, non-tender, no distention, positive bowel sounds Musculoskeletal: no edema Neurological: non-focal, moves all 4 limbs Psychiatric: normal affect, A&O x 3 Skin: no rash, normal turgor, cap refill <2 seconds Dx/Plan (1) Adrenal insufficiency Code(s): E27.40 - UNSPECIFIED ADRENOCORTICAL INSUFFICIENCY Status: Acute (2) Balanitis Code(s): N48.1 - BALANITIS Status: Acute (3) Folliculitis Code(s): L73.9 - FOLLICULAR DISORDER, UNSPECIFIED Status: Acute (4) Hyperglycemia due to type 2 diabetes mellitus Code(s): E11.65 - TYPE 2 DIABETES MELLITUS WITH HYPERGLYCEMIA Status: Acute (5) Ketoacidosis due to diabetes mellitus Code(s): E11.10 - TYPE 2 DIABETES MELLITUS WITH KETOACIDOSIS WITHOUT COMA Status: Acute (6) Sepsis associated hypotension Code(s): A41.9 - SEPSIS, UNSPECIFIED ORGANISM; I95.9 - HYPOTENSION, UNSPECIFIED Status: Acute (7) Acute kidney failure Status: Acute (8) Acute kidney injury Code(s): N17.9 - ACUTE KIDNEY FAILURE, UNSPECIFIED Status: Acute (9) Alcoholic ketoacidosis Code(s): E87.2 - ACIDOSIS Status: Acute (10) Coag negative Staphylococcus bacteremia Code(s): R78.81 - BACTEREMIA Status: Acute (11) UTI (urinary tract infection) Status: Acute Qualifiers: Urinary tract infection type: acute cystitis Hematuria presence: without hematuria Qualified Code(s): N30.00 - Acute cystitis without hematuria - Plan Plan: Severe Hypotension 2/2 Septic Shock vs Adrenal Crisis vs. sequelae of adult's still's disease Severe hypotension likely from Adrenal crisis or Adult's Still's disease. Patient may have been noncompliant in past but need to revisit once his mental status has improved. ESR, ferritin, CRP and procal could all be elevated from ASD, but being treated for infection. - Stable off pressors for 2 days. Suspect less likely sepsis in light of negative infectious workup. Dc'd linezolid. Continue's zosyn due to Ucx. - Patient has had stress dose steroid, will transition to PO prednisone. Will start with 15mg daily and will decrease by 2.5mg every 2-3 weeks per pharmacy. Likely chronic steroid dose 10mg daily. - Pulm consulted, appreciate recs Hypernatremia, resolved P ossibly 2/2 Large volumes of NS that were given considering probable dysfunction of renal electrolyte regulation with adrenal insufficiency. - PO fluid encouragement - Monitor daily Free water deficit On admission had 2.9L free water deficit. Has been replenished 1.4L on 12/22. 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 Now restarted on home xarelto NSTEMI, type 2 Likely 2/2 demand. - Troponins downtrended. EKG with no signs of acute ischemia. - Monitor for cardiac Sx Combined CHF - BNP in 1500s- echo 06/2019 EF 50-55%, received several liters of fluid. Doesn' t appear fluid overloaded at this time. - Monitor I/O, daily weights. COVID NEGATIVE Balanitis - Likely fungal, will try topical clotrimazole Thrombocytopenia - Stable HTN - Hypotensive, hold home meds HLD - Restart home meds once tolerating PO. BPH - Restart flomax once PO. Monitor for retention and place dobbins if needed. Dispo: pending clinical course DVT PPx: xarelto GI PPx: pepcid Lines: Peripheral, no CVC Code status: Full PCP: Dr. Aiken Case discussed with Dr. Wolfe Addendum - Attending - Attending Attestation Date/Time: 12/24/19 1476 I personally evaluated the patient and discussed the management with Dr. Machado I agree with the History, Examination, Assessment and Plan documented above with any addition or exceptions noted below - Patient without complaints. Feeling better. Afebrile VSS. A/P: 1) Hypotension- resolved; off pressors. 2) Adult Still's disease- change to po prednisone and plan for slow taper.
[2019-12-24] MEDS ORDERED: Famotidine 20 MG TAB PO SCH (09:00)
[2019-12-24] MEDS ORDERED: Insulin Glargine 30 UNITS in Pre-Filled Syringe SC SCH (09:00)
[2019-12-24] MEDS: Empagliflozin 25 MG TAB PO SCH (09:57)
[2019-12-24] MEDS: Atorvastatin Calcium 40 MG TAB PO SCH (09:58)
[2019-12-24] MEDS: Tamsulosin HCl 0.4 MG CAP PO SCH (09:58)
[2019-12-24] MEDS: Alogliptin 25 MG TAB PO SCH (09:58)
[2019-12-24] MEDS: Clotrimazole 1% Cream 15 GM TUBE TOP SCH (09:59)
[2019-12-24] MEDS: Famotidine 20 MG TAB PO SCH (09:59)
[2019-12-24] MEDS: HumaLOG 300 UNITS/3 ML VIAL SC PRN ×2 (13:12→17:04)
[2019-12-24] MEDS: ANAKINRA SC SCH (13:15)
[2019-12-24] MEDS ORDERED: Rivaroxaban 10 MG TAB PO SCH (17:00)
[2019-12-24] MEDS ORDERED: Hydrocortisone Sod Succ/PF 100 mg/2 ml Vial IVP SCH (18:00)
[2019-12-24 19:37] VITALS: BP 108/75; TEMP 97.5
[2019-12-24] MEDS: Insulin Glargine 20 UNITS in Pre-Filled Syringe 1 EACH SC SCH (20:34)
[2019-12-25 06:49] LABS: Band 7 % (5-11); Hemoglobin 13.3 g/dL (14.0-18.0); Lymphocytes 27 % (21-51); MDiff Complete? YES; Mean Corpuscular HGB CONC 30.9 g/dL (32.0-36.0); Mean Corpuscular Hemoglobin 29.7 pg (27.0-31.0); Mean Corpuscular Volume 96.1 fL (78.0-98.0); Mean Platelet Volume 9.6 fL (7.4-10.4); Monocytes 9 % (0-10); Neutrophil 57 % (42-75); Platelet Count 119 thou/uL (130-400); Platelet Morphology Comment Appears Decreased; RBC Distribution Width 16.1 % (11.5-14.5); Red Blood Cell (RBC) Count 4.48 mill/uL (4.70-6.10); White Blood Cell (WBC) Count 5.1 thou/uL (4.8-10.8)
[2019-12-25 06:56] LABS: Anion Gap 14 mmol/L (10-20); BUN (Urea Nitrogen) 31 mg/dL (8.4-25.7); Calc. Creatinine Clearance 60 mL/min (70-130); Calcium 8.4 mg/dL (7.8-10.44); Carbon Dioxide 20 mmol/L (22-29); Chloride 114 mmol/L (98-107); Estimated GFR-MDRD 60; Glucose 112 mg/dL (70-105); Potassium 3.1 mmol/L (3.5-5.1); Sodium 145 mmol/L (136-145)
--- NOTE | 2019-12-25 07:11 | PDOC.FM ---
- Subjective Subjective: NAEO. Patient sitting up at the bedside eating breakfast. No complaints or concerns. Patient tolerating PO, ambulating. Patient states he does have a HH nurse that comes once a week which is sufficient to help him. - Objective MAR Reviewed: Yes Vital Signs & Weight: Vital Signs (12 hours) Temp Pulse Resp BP Pulse Ox 12/24/19 19:37 97.5 F L 87 18 108/75 99 Weight Weight 77.8 kg Most Recent Monitor Data Heart Rate from ECG 99 NIBP 94/67 NIBP BP-Mean 76 Respiration from ECG 25 SpO2 100 I&O: 12/24/19 12/25/19 12/26/19 06:59 06:59 06:59 Intake Total 600 Output Total 930 Balance -330 Result Diagrams: 12/25/19 06:01 12/25/19 06:01 Phys Exam - Physical Examination Constitutional: NAD HEENT: moist MMs, sclera anicteric Neck: supple, full ROM Respiratory: clear to auscultation bilateral Cardiovascular: RRR Gastrointestinal: soft Musculoskeletal: no edema Neurological: non-focal, moves all 4 limbs Psychiatric: normal affect, A&O x 3 Skin: no rash, normal turgor, cap refill <2 seconds Dx/Plan (1) Adrenal insufficiency Code(s): E27.40 - UNSPECIFIED ADRENOCORTICAL INSUFFICIENCY Status: Acute (2) Balanitis Code(s): N48.1 - BALANITIS Status: Acute (3) Folliculitis Code(s): L73.9 - FOLLICULAR DISORDER, UNSPECIFIED Status: Acute (4) Hyperglycemia due to type 2 diabetes mellitus Code(s): E11.65 - TYPE 2 DIABETES MELLITUS WITH HYPERGLYCEMIA Status: Acute (5) Ketoacidosis due to diabetes mellitus Code(s): E11.10 - TYPE 2 DIABETES MELLITUS WITH KETOACIDOSIS WITHOUT COMA Status: Acute (6) Sepsis associated hypotension Code(s): A41.9 - SEPSIS, UNSPECIFIED ORGANISM; I95.9 - HYPOTENSION, UNSPECIFIED Status: Acute (7) Acute kidney failure Status: Acute (8) Acute kidney injury Code(s): N17.9 - ACUTE KIDNEY FAILURE, UNSPECIFIED Status: Acute (9) Alcoholic ketoacidosis Code(s): E87.2 - ACIDOSIS Status: Acute (10) Coag negative Staphylococcus bacteremia Code(s): R78.81 - BACTEREMIA Status: Acute (11) UTI (urinary tract infection) Status: Acute Qualifiers: Urinary tract infection type: acute cystitis Hematuria presence: without hematuria Qualified Code(s): N30.00 - Acute cystitis without hematuria - Plan Plan: Severe Hypotension 2/2 Septic Shock vs Adrenal Crisis vs. sequelae of adult's still's disease Severe hypotension likely from Adrenal crisis or Adult's Still's disease. Patient may have been noncompliant in past but need to revisit once his mental status has improved. ESR, ferritin, CRP and procal could all be elevated from ASD, but being treated for infection. - Stable off pressors for 3 days. Suspect less likely sepsis in light of negative infectious workup. Abx discontinued. UTI adequately treated. - Patient has had stress dose steroid, will transition to PO prednisone. Will start with 40mg daily and will decrease by 2.5mg every 2-3 weeks per pharmacy. Likely chronic steroid dose 10mg daily. - Pulm consulted, appreciate recs UTI - UCx grew out E Coli and Klebsiella, adequately treated with linezolid and zosyn. Patient never had any urinary symptoms, but should be adequately treated now with abx x 3 days. Hypernatremia, resolved Possibly 2/2 Large volumes of NS that were given considering probable dysfunction of renal electrolyte regulation with adrenal insufficiency. - PO fluid encouragement - Monitor daily Free water deficit On admission had 2.9L free water deficit. Has been replenished 1.4L on 12/22. 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 Patient has f/u appointment with elder counselor within the next 1-2 weeks Adrenal Insufficiency - Last discharged on Prednisone 10mg PO daily - s/p stress dose steroids, going home with 40 mg prednisone, f/u endocrine Hx of DVT on Anticoagulation - On admission, started on lovenox due to not tolerating PO. Now restarted on home xarelto NSTEMI, type 2 Likely 2/2 demand. - Troponins downtrended. EKG with no signs of acute ischemia. - Monitor for cardiac Sx Combined CHF - BNP in 1500s- echo 06/2019 EF 50-55%, received several liters of fluid. Doesn' t appear fluid overloaded at this time. - Monitor I/O, daily weights. COVID NEGATIVE Balanitis - Likely fungal, will try topical clotrimazole Thrombocytopenia - Stable HTN - Hypotensive, hold home meds HLD - Restart home meds once tolerating PO. BPH - Restart flomax once PO. Monitor for retention and place dobbins if needed. Dispo: likely dc later today DVT PPx: xarelto GI PPx: pepcid Lines: Peripheral, no CVC Code status: Full PCP: Dr. Aiken Case discussed with Dr. Wolfe Addendum - Attending - Attending Attestation Date/Time: 12/25/19 1206 I personally evaluated the patient and discussed the management with Dr. Knight I agree with the History, Examination, Assessment and Plan documented above with any addition or exceptions noted below - Patient sitting up in chair; no complaints. Afebrile VSS. A/P: 1) Hypotension- resolved. stable off pressors. 2 ) Adult Still's disease- continue prednisone and will plan for low taper. D/c home and instructed patient to keep follow-up with rheumatology as scheduled.
[2019-12-25] MEDS ORDERED: Potassium Chloride 20 MEQ TAB PO SCH (07:15)
[2019-12-25] MEDS: Famotidine 20 MG TAB PO SCH (08:49)
[2019-12-25] MEDS: Tamsulosin HCl 0.4 MG CAP PO SCH (08:50)
[2019-12-25] MEDS: Alogliptin 25 MG TAB PO SCH (08:50)
[2019-12-25] MEDS: Atorvastatin Calcium 40 MG TAB PO SCH (08:50)
[2019-12-25] MEDS: Clotrimazole 1% Cream 15 GM TUBE TOP SCH (08:51)
[2019-12-25] MEDS: Empagliflozin 25 MG TAB PO SCH (08:51)
[2019-12-25] MEDS ORDERED: predniSONE 20 MG TAB PO SCH (09:00)
[2019-12-25] MEDS ORDERED: predniSONE 5 MG TAB PO SCH (09:00)
--- NOTE | 2019-12-26 02:29 | DIS ---
DATE OF ADMISSION: 12/21/2019 DATE OF DISCHARGE: 12/25/2019 RESIDENT: Mildred Mcahado MD ADMITTING ATTENDING: Paul Hall MD DISCHARGE ATTENDING: Ashley Wolfe MD CONSULTS: Pulmonology. PROCEDURES: None. DISCHARGE MEDICATIONS: 1. Clotrimazole cream 1 g topical daily. 2. Prednisone 40 mg oral daily. 3. Lipitor 40 mg oral every morning. 4. Anakinra 100 mg subcu every evening. 5. Zetia 10 mg oral every morning. 6. Pepcid 20 mg oral daily. 7. Theragran-M one tablet oral daily. 8. Xarelto 20 mg oral every morning. 9. Flomax 0.4 mg oral every morning. 10. Tylenol Extra Strength 500 mg oral every 4 hours as needed. 11. Tramadol 100 mg oral every 6 hours as needed. 12. Januvia one tablet oral daily. 13. Lantus 30 units subcutaneous every morning. 14. NovoLog 10 units subcutaneous before meals. 15. Jardiance 25 mg oral daily. DISCONTINUED MEDICATIONS: None. PRIMARY DIAGNOSES: 1. Severe hypotension secondary to septic shock versus adrenal crisis versus sequelae of adult Still's disease. 2. Urinary tract infection. 3. Non-ST segment elevation myocardial infarction, type 2. SECONDARY DIAGNOSES: 1. Insulin dependent diabetes type 2. 2. Adult Still's disease. 3. Adrenal gland disease. 4. Combined congestive heart failure. 5. Hypertension. 6. Hyperlipidemia. 7. Benign prostatic hypertrophy. 8. Balanitis. HISTORY OF PRESENT ILLNESS/HOSPITAL COURSE: This is a 59-year-old male with past medical history of diabetes, hypertension, and Still's disease, who presented to the ER for altered mental status and weakness. The patient was found to have severe hypotension, tachycardia and elevated white count on admission. He was started on levophed to maintain his blood pressures as well as broad spectrum abx due to sepsis. He was admitted to the ICU with pulmonology consulted. He was also given a stress dose of steroids due to his Still's disease and adrenal insufficiency. This was eventually transitioned to oral steroids. He was discharged on 40mg daily prednisone which will need to be tapered by 2.5mg every 3 weeks per pharmacy. Patient will be following up with his pegger outpatient to help with this. The patient's urine cx grew out E coli and Klebsiella. He was adequately treated with linezolid and zosyn. He never had symptoms of dysuria, but was treated during his stay. Blood cultures never grew out anything. Of note, patient was a COVID PUI, but was negative. Other chronic conditions remained stable. Home meds restarted. DISPOSITION: Stable. DISCHARGE INSTRUCTIONS: 1. Location: Home with Home Health. 2. Activity: Ad reji. 3. Diet: Consistent carbohydrate. 4. Followup: Follow up with PCP, Dr. Aiken within 7 days and Bracer, Dr. Rehan Barney within 1 to 2 weeks. Job ID: [id number] MTDD
--- NOTE | 2020-01-03 16:11 | EKG ---
Test Reason : WEAKNESS Blood Pressure : / mmHG Vent. Rate : 120 BPM Atrial Rate : 120 BPM P-R Int : 152 ms QRS Dur : 086 ms QT Int : 328 ms P-R-T Axes : 015 009 015 degrees QTc Int : 463 ms Sinus tachycardia Otherwise normal ECG Confirmed by SUZIE ASHER ([id number]), digital editor SHARYN ARVIZU ([id number]) on 01/03/2020 4:10:42 PM Referred By: LAKESHIA Confirmed By:SUZIE ASHER
== END 2019-12-25 11:29 | disposition home or self-care (01) | DRG 871 ==
LOC: ERS 19:31 → CCU 22:18 → T4-B 12-23 11:43
PROVIDERS: ADMIT Student in an Organized Health Care Education/Training Program; ATTEND Student in an Organized Health Care Education/Training Program
PROC: 02HV33Z Insertion of Infusion Device into Superior Vena Cava, Percutaneous Approach (ICD-10-PCS; principal; 2019-12-21)
PROC: B548ZZA Ultrasonography of Superior Vena Cava, Guidance (ICD-10-PCS; 2019-12-21)
PROC: 8E0ZXY6 Isolation (ICD-10-PCS; 2019-12-21)
PROC: 3E043XZ Introduction of Vasopressor into Central Vein, Percutaneous Approach (ICD-10-PCS; 2019-12-22)
DX: A41.9 Sepsis, unspecified organism (principal); R65.21 Severe sepsis with septic shock; I21.A1 Myocardial infarction type 2; E11.10 Type 2 diabetes mellitus with ketoacidosis without coma; G93.41 Metabolic encephalopathy; N39.0 Urinary tract infection, site not specified; N17.9 Acute kidney failure, unspecified; Z20.828 Contact with and (suspected) exposure to other viral communicable diseases; I13.0 Hypertensive heart and chronic kidney disease with heart failure and stage 1 through stage 4 chronic kidney disease, or unspecified chronic kidney disease; E27.40 Unspecified adrenocortical insufficiency; E87.0 Hyperosmolality and hypernatremia; I42.9 Cardiomyopathy, unspecified; I50.42 Chronic combined systolic (congestive) and diastolic (congestive) heart failure; E11.22 Type 2 diabetes mellitus with diabetic chronic kidney disease; I95.9 Hypotension, unspecified; M06.1 Adult-onset Still's disease; B96.20 Unspecified Escherichia coli [E. coli] as the cause of diseases classified elsewhere; B96.1 Klebsiella pneumoniae [K. pneumoniae] as the cause of diseases classified elsewhere; E78.5 Hyperlipidemia, unspecified; N40.0 Benign prostatic hyperplasia without lower urinary tract symptoms; N48.1 Balanitis; N18.2 Chronic kidney disease, stage 2 (mild); L73.9 Follicular disorder, unspecified; E86.0 Dehydration; D69.6 Thrombocytopenia, unspecified; Z90.49 Acquired absence of other specified parts of digestive tract; Z98.1 Arthrodesis status; Z86.718 Personal history of other venous thrombosis and embolism; Z79.01 Long term (current) use of anticoagulants
CPT/HCPCS: 36415; 36416; 51701; 71045; 80048; 80053; 81002; 81003; 81015; 82010; 82553; 82728; 82805; 83036; 83605; 83615; 83735; 83880; 83930; 84100; 84145; 84484; 85007; 85025; 85027; 85379; 85610; 85730; 86140; 87040; 87070; 87077; 87086; 87186; 87205; 87635; 93005; 96361; 96374; 96375; J0171; J0692; J0696; J1650; J1720; J1815; J2020; J2405; J2543; J3480; J3490; J7512; S0028; U0003

== ENCOUNTER 2019-12-29 20:43 | Observation (INO) | payer MEDICARE, OTHER ==
[2019-12-29] MEDS ORDERED: Sodium Chloride 0.9% 100 ML ONE (21:09)
[2019-12-29] MEDS ORDERED: cefTRIAXone\\ROCEPHIN 2 GM VIAL ONE (21:09)
--- NOTE | 2019-12-29 21:22 | RAD ---
Chest one view HISTORY: Cough. COMPARISON: 12/22/2019. FINDINGS: Cardiac silhouette is magnified by projection. Pulmonary vasculature is unremarkable. Mediastinum is midline. No lobar consolidation or evidence of pneumothorax. Prominent degenerative changes right shoulder. Left shoulder prosthesis partially visualized rn mds leads overlie the chest. IMPRESSION : No active cardiopulmonary abnormalities are demonstrated.
[2019-12-29 21:49] LABS: Hemoglobin 15.5 g/dL (14.0-18.0); Mean Corpuscular HGB CONC 32.3 g/dL (32.0-36.0); Mean Corpuscular Hemoglobin 30.4 pg (27.0-31.0); Mean Corpuscular Volume 93.9 fL (78.0-98.0); Mean Platelet Volume 8.7 fL (7.4-10.4); Platelet Count 185 thou/uL (130-400); Red Blood Cell (RBC) Count 5.09 mill/uL (4.70-6.10); White Blood Cell (WBC) Count 13.4 thou/uL (4.8-10.8)
[2019-12-29 22:14] LABS: Bilirubin Negative (Negative); Blood, Urine Negative (Negative); Clarity Clear (Clear); Glucose, Urine (Dipstick) Greater than 1000 mg/dL (Negative); Leukocyte Negative Leu/uL (Negative); Nitrite Negative (Negative); Protein, Urine (Dipstick) 10 mg/dL (Neg-Trace); Urobilinogen Normal mg/dL (Less than 2)
[2019-12-29 22:18] LABS: Band 9 % (5-11); Lymphocytes 8 % (21-51); MDiff Complete? YES; Monocytes 1 % (0-10); Neutrophil 82 % (42-75)
[2019-12-29 23:33] LABS: ALT (SGPT) 17 U/L (8-55); AST (SGOT) 16 U/L (5-34); Albumin 2.7 g/dL (3.5-5.0); Alkaline Phosphatase 66 U/L (40-110); Anion Gap 18 mmol/L (10-20); BUN (Urea Nitrogen) 16 mg/dL (8.4-25.7); Bilirubin, Total 0.3 mg/dL (0.2-1.2); CK (CPK) 62 U/L (30-200); Calc. Creatinine Clearance 0 mL/min (70-130); Calcium 7.7 mg/dL (7.8-10.44); Carbon Dioxide 17 mmol/L (22-29); Chloride 110 mmol/L (98-107); Estimated GFR-MDRD Greater than 90; Globulin 2.6 g/dL (2.4-3.5); Glucose 89 mg/dL (70-105); Lipase 376 U/L (8-78); Magnesium 1.7 mg/dL (1.6-2.6); Potassium 3.1 mmol/L (3.5-5.1); Protein, Total 5.3 g/dL (6.0-8.3); Sodium 142 mmol/L (136-145)
[2019-12-29] MEDS ORDERED: Acetaminophen 500 MG TAB ONE (23:48)
[2019-12-29] MEDS ORDERED: Potassium Chloride 20 MEQ TAB ONE (23:48)
[2019-12-30 02:31] VITALS: BMI 27.1
[2019-12-30] MEDS: Sodium Chloride 0.9% 1,000 ML IV SCH ×2 (02:50→09:25)
--- NOTE | 2019-12-30 05:58 | PDOC.FPRHP ---
- History of Present Illness Chief Complaint: weakness History of Present Illness: 59 yo M presents with Adult Stills disease, DMII, combined HF presents with 2 day history of weakness. Pt was recently admittted for similar symptoms and hypotension and DCd home with steroid taper which he is still taking. He denies any cough, CP, SOB, NVDC, abd pain, and denies feeling fever or chills;however, documented fever in ED. In ED pt was given rocephin and potassium. Otherwise he has no complaints. He denies fever and chills currently. ED Course: see above - Allergies/Adverse Reactions Allergies Allergy/AdvReac Type Severity Reaction Status Date / Time vancomycin Allergy Intermediate Verified 12/21/19 23:55 - Home Medications Medication Instructions Recorded Confirmed Type Atorvastatin Calcium [Lipitor] 40 mg PO QAM 10/18/15 12/30/19 History Anakinra [Kineret] 100 mg SQ QPM 09/01/18 12/30/19 History Ezetimibe [Zetia] 10 mg PO QAM tab 01/03/19 12/30/19 Rx Famotidine [Pepcid] 20 mg PO DAILY tab 01/03/19 12/30/19 Rx Multivitamin W/ Minerals 1 tab PO DAILY tab 01/03/19 12/30/19 Rx [Theragran M] Rivaroxaban [Xarelto] 20 mg PO QAM-WM tab 01/03/19 12/30/19 Rx Tamsulosin HCl [Flomax] 0.4 mg PO QAM cap 01/03/19 12/30/19 Rx Acetaminophen [Tylenol Extra 500 mg PO Q4H PRN 02/03/19 12/30/19 History Strength] traMADol HCl [Tramadol HCl] 100 mg PO Q6H PRN 05/30/19 12/30/19 History sitaGLIPtin Phosphate [Januvia] 1 tab PO DAILY 07/09/19 12/30/19 History Insulin Glargine [Lantus] 30 units SC QAM #0 vial 08/17/19 12/30/19 Rx Empagliflozin [Jardiance] 25 mg PO DAILY 12/23/19 12/30/19 History Insulin Aspart [Novolog Flexpen] 10 unit SQ AC 12/23/19 12/30/19 History Clotrimazole [Lotrimin 1% Cream] 1 gm TOP DAILY #1 tube 12/25/19 12/30/19 Rx predniSONE 40 mg PO DAILY #30 tab 12/25/19 12/30/19 Rx - History PMHx:HLD, T2DM, HTN, Adult Still Disease, Adrenal Insufficiency, Combined CHF PSHx: Cholecystectomy, L shoulder surgery, L knee surgery, cervical spinal fusion, R shoulder surgery FHx: non contributory Social: no alcohol use, tobacco use, or drug use. - Review of Systems General: reports: fever/chills, fatigue Eyes: denies: vision changes ENT: denies: nasal congestion, rhinorrhea Respiratory: denies: cough, congestion, shortness of breath Cardiovascular: denies: chest pain, palpitation, edema Gastrointestinal: denies: nausea, vomiting, diarrhea, constipation, abdominal pain, GI bleeding Genitourinary: denies: dysuria Skin: reports: rashes Musculoskeletal: denies: stiffness, swelling, arthritis/arthralgias Neurological: reports: weakness. denies: syncope Psychological: denies: anxiety - Vital signs BP: 98/65 HR: 114 RR: 18 Tmax: 100.1 Pox: 99% on ra Wt: 78 KG - Physical Exam Constitutional: NAD, awake, alert and oriented HEENT: normocephalic and atraumatic, PERRLA, EOMI, conjunctiva clear, grossly normal vision, grossly normal hearing Neck: supple, trachea midline, no LAD Heart: RRR, normal S1/S2, no murmurs/rubs/gallops Lungs: CTAB, no respiratory distress, good air movement, no rales/rhonchi, no wheezing Abdomen: soft, non-tender, bowel sounds present Neurological: no focal deficit Skin: good turgor, no jaundice Heme/Lymphatic: no purpura, no petechia, no LAD Psychiatric: normal mood and affect FMR H&P: Results - Labs Result Diagrams: 12/29/19 21:38 12/30/19 09:09 Lab results: WBC 13.4 thou/uL (4.8-10.8) H 12/29/19 21:38 Hgb 15.5 g/dL (14.0-18.0) 12/29/19 21:38 Hct 47.8 % (42.0-52.0) 12/29/19 21:38 MCV 93.9 fL (78.0-98.0) 12/29/19 21:38 Plt Count 185 thou/uL (130-400) 12/29/19 21:38 Band Neuts % (Manual) 9 % (5-11) 12/29/19 21:38 Sodium 142 mmol/L (136-145) 12/29/19 23:04 Potassium 3.1 mmol/L (3.5-5.1) L 12/29/19 23:04 Chloride 110 mmol/L (98-107) H 12/29/19 23:04 Carbon Dioxide 17 mmol/L (22-29) L 12/29/19 23:04 BUN 16 mg/dL (8.4-25.7) 12/29/19 23:04 Creatinine 0.89 mg/dL (0.7-1.3) 12/29/19 23:04 Glucose 89 mg/dL (70-105) 12/29/19 23:04 Lactic Acid 1.2 mmol/L (0.5-2.2) 12/29/19 21:38 Calcium 7.7 mg/dL (7.8-10.44) L 12/29/19 23:04 Total Bilirubin 0.3 mg/dL (0.2-1.2) 12/29/19 23:04 AST 16 U/L (5-34) 12/29/19 23:04 ALT 17 U/L (8-55) 12/29/19 23:04 Alkaline Phosphatase 66 U/L (40-110) 12/29/19 23:04 Creatine Kinase 62 U/L (30-200) 12/29/19 23:04 B-Natriuretic Peptide 100.4 pg/mL (0-100) H 12/29/19 21:38 Serum Total Protein 5.3 g/dL (6.0-8.3) L 12/29/19 23:04 Albumin 2.7 g/dL (3.5-5.0) L 12/29/19 23:04 Lipase 376 U/L (8-78) H 12/29/19 23:04 Urine Ketones 20 mg/dL (Negative) A 12/29/19 21:02 Urine Blood Negative (Negative) 12/29/19 21:02 Urine Nitrite Negative (Negative) 12/29/19 21:02 Ur Leukocyte Esterase Negative David/uL (Negative) 12/29/19 21:02 - EKG Interpretation EKG: Sinus tachy with NS ST and t wave changes - Radiology Interpretation Chest x-ray Status: report reviewed by me (MAUREEN) FMR H&P: A/P - Problem List (1) SIRS (systemic inflammatory response syndrome) Current Visit: No Status: Acute Code(s): R65.10 - SIRS OF NON-INFECTIOUS ORIGIN W/O ACUTE ORGAN DYSFUNCTION (2) Adrenal insufficiency Current Visit: No Status: Chronic Code(s): E27.40 - UNSPECIFIED ADRENOCORTICAL INSUFFICIENCY (3) Adult Still's disease Current Visit: No Status: Chronic Code(s): M06.1 - ADULT-ONSET STILL'S DISEASE Comment: Cont Anakinran and PO steroids.OP Rheumatology follow up (4) Diabetes type 2, controlled Current Visit: No Status: Chronic Code(s): E11.9 - TYPE 2 DIABETES MELLITUS WITHOUT COMPLICATIONS (5) Essential hypertension Current Visit: No Status: Chronic Code(s): I10 - ESSENTIAL (PRIMARY) HYPERTENSION Comment: controlled.monitor.Pt w Potential for hypotension w Still's disease - Plan 1) Adult stills with adrenal insufficiency - will give stress dose steroids 125 solumedrol and cont taper - likley Stills flair, no evidence of localized infection identified - monitor vitals - COVID pending although should be noted pt ruled out last week and history of periodic fever syndrome 2) SIRS - likley related to adrenal insufficiency, see above 3) DMII - achs accuchecks and home meds - monitor 4) HTN: -hypotensive - hold meds 5) Combined HF - no evidence of acute excaberation on exam - monitor Is Os 6) Elevated Lipase - no epigastric pain - LFTs wnl Dispo: Stable, will give stress dose steroids and monitor for s/s of improvement. FMR H&P: Upper Level - Plan Date/Time: 12/30/19 0822 I, [], have evaluated this patient and agree with findings/plan as outlined by international broadcast music librarian resident. Pertinent changes/additions are listed here. Addendum - Attending - Attending Attestation Date/Time: 12/30/19 1305 I personally evaluated the patient and discussed the management with Dr. Machado I agree with the History, Examination, Assessment and Plan documented above with any addition or exceptions noted below - 59 yo M presents with Adult Stills disease, DMII, combined HF presents with 2 day history of weakness. Pt was recently admitted for similar symptoms and hypotension and DC'd home with steroid taper which he is still taking. He denies any cough, CP, SOB, NVDC, abd pain, and denies feeling fever or chills;however, documented fever in ED. PMH/ PSH/Meds/ SH reviewed and agree with resident's documentation. Afebrile VSS. Exam repeated by me and agree with residents findings. Labs: WBC=13.4, H/H=15.5/ 47.8, Cr=948, K=4.2, Wv=974, CO2=17, BUN/Cr=15/0.83, Tprx=345. A/P: 1) Fever and weakness- possible exacerbation of Still's disease. COVID swab pending. Restarted on IV steroids. Plan to convert to higher po dose for home and slow taper. 2) DM- BG stable.
[2019-12-30] MEDS ORDERED: Acetaminophen 500 MG TAB PO PRN (06:09)
[2019-12-30] MEDS ORDERED: traMADol HCl 50 MG TAB PO PRN (06:09)
[2019-12-30] MEDS ORDERED: methylPREDNISolone Sod Succ/PF 125 MG/2 ML VIAL IVP SCH (06:10)
[2019-12-30] MEDS ORDERED: Dextrose 50% Abboject 50 ML SYRINGE SLOW IVP PRN (06:11)
[2019-12-30] MEDS ORDERED: Ondansetron ODT 4 MG TAB PO PRN (06:11)
[2019-12-30] MEDS ORDERED: Dextrose 5% in Water 1,000 ML IV PRN (06:11)
[2019-12-30] MEDS ORDERED: HumaLOG 300 UNITS/3 ML VIAL SC PRN (06:12)
[2019-12-30] MEDS ORDERED: INSULIN ASPART 10 UNIT SQ SCH (07:30)
[2019-12-30] MEDS: HumaLOG 300 UNITS/3 ML VIAL SC SCH ×3 (09:21→18:08)
[2019-12-30] MEDS: Rivaroxaban 10 MG TAB PO SCH (09:21)
[2019-12-30] MEDS: Alogliptin 25 MG TAB PO SCH (09:23)
[2019-12-30] MEDS: Famotidine 20 MG TAB PO SCH (09:24)
[2019-12-30] MEDS: Multivitamin W/ Minerals 1 TAB PO SCH (09:24)
[2019-12-30] MEDS: Insulin Glargine 30 UNITS in Pre-Filled Syringe 1 EACH SC SCH (09:24)
[2019-12-30] MEDS: Atorvastatin Calcium 40 MG TAB PO SCH (09:24)
[2019-12-30] MEDS: Empagliflozin 25 MG TAB PO SCH (09:24)
[2019-12-30] MEDS: Tamsulosin HCl 0.4 MG CAP PO SCH (09:24)
[2019-12-30] MEDS: Ezetimibe 10 MG TAB PO SCH (09:24)
[2019-12-30 09:34] LABS: Anion Gap 19 mmol/L (10-20); BUN (Urea Nitrogen) 15 mg/dL (8.4-25.7); Calc. Creatinine Clearance 107 mL/min (70-130); Calcium 8.2 mg/dL (7.8-10.44); Carbon Dioxide 17 mmol/L (22-29); Chloride 109 mmol/L (98-107); Estimated GFR-MDRD Greater than 90; Glucose 139 mg/dL (70-105); Potassium 4.2 mmol/L (3.5-5.1); Sodium 141 mmol/L (136-145)
[2019-12-30] MEDS: Hydrocortisone Sod Succ/PF 100 mg/2 ml Vial IVP SCH ×3 (11:29→23:12)
[2019-12-30] MEDS: Lactated Ringer's 1,000 ML IV SCH ×3 (11:30→21:14)
[2019-12-30] MEDS: Clotrimazole 1% Cream 15 GM TUBE TOP SCH (13:08)
[2019-12-30 19:26] LABS: SARS-CoV-2 MS2 Positive; SARS-CoV-2 N Gene Negative; SARS-CoV-2 S Gene Negative; SARS-CoV-2 orf1ab Negative
[2019-12-30] MEDS ORDERED: ANAKINRA 100 MG SCH (21:00)
[2019-12-30] MEDS ORDERED: ANAKINRA 100 MG SQ SCH (21:00)
[2019-12-31 00:52] LABS: Actual Bicarbonate (HCO3v) 11 mEq/L (22-28); Base Excess -11.8 mEq/L (-2.0 to +3.0); Calcium, Ionized 1.04 mmol/L (1.16-1.32); Chloride (ABG LAB) 109 mmol/L (98-106); Hemoglobin (Hb) 11.3 g/dL (13.1-17.2); Potassium - ABG Lab 4.08 mmol/L (3.70-5.30)
[2019-12-31] MEDS: Lactated Ringer's 1,000 ML IV SCH ×2 (02:05→05:12)
[2019-12-31] MEDS: Hydrocortisone Sod Succ/PF 100 mg/2 ml Vial IVP SCH ×2 (05:12→11:32)
--- NOTE | 2019-12-31 06:40 | PDOC.FM ---
- Subjective Subjective: pt resting comfortably in bed, denies presyncope, sob, or fatigue. overall improved from admission - Objective Vital Signs & Weight: Vital Signs (12 hours) Temp Pulse Resp BP Pulse Ox 12/31/19 03:29 97.8 F 85 16 109/64 100 12/30/19 23:15 97.9 F 89 16 110/61 96 12/30/19 19:40 98.6 F 90 18 100/58 L 100 Weight Admit Weight 78.471 kg Weight 78.67 kg I&O: 12/29/19 12/30/19 12/31/19 06:59 06:59 06:59 Intake Total 2662 Output Total 1625 Balance 1037 Result Diagrams: 12/31/19 06:42 12/31/19 06:42 Phys Exam - Physical Examination Constitutional: NAD HEENT: moist MMs Neck: no JVD Respiratory: clear to auscultation bilateral Cardiovascular: RRR, no significant murmur Gastrointestinal: no distention Musculoskeletal: pulses present Neurological: moves all 4 limbs Lymphatic: no nodes Psychiatric: normal affect Dx/Plan (1) Acute kidney injury Code(s): N17.9 - ACUTE KIDNEY FAILURE, UNSPECIFIED Status: Acute (2) Adrenal insufficiency Code(s): E27.40 - UNSPECIFIED ADRENOCORTICAL INSUFFICIENCY Status: Acute (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 DISEASE Status: Chronic (4) Diabetes type 2, controlled Code(s): E11.9 - TYPE 2 DIABETES MELLITUS WITHOUT COMPLICATIONS Status: Chronic (5) Essential hypertension Code(s): I10 - ESSENTIAL (PRIMARY) HYPERTENSION Status: Chronic - Plan Plan: Adult stills with adrenal insufficiency - stress steroids, hydrocortisone 50 - likley Stills flair, no evidence of localized infection identified - monitor vitals - Covid neg SIRS - likley related to adrenal insufficiency, see above DMII - achs accuchecks and home meds - monitor HTN: -hypotensive - hold meds Combined HF - no evidence of acute excaberation on exam - monitor Is Os Elevated Lipase - no epigastric pain - LFTs wnl Dispo: consider DC home with steroid taper today Addendum - Attending - Attending Attestation Date/Time: 12/31/19 1152 I personally evaluated the patient and discussed the management with Dr. Keating. I agree with the History, Examination, Assessment and Plan documented above with any addition or exceptions noted below. Patient feeling well, stable on increased steroid doses. Likely stable for dc but hope to get him in with his Rheum tomorrow or in the coming days.
[2019-12-31 07:03] LABS: #Lymphocytes 1.3 thou/uL (1.20-3.40); #Monocytes 0.4 thou/uL (0.11-0.59); #Neutrophils 12.6 thou/uL (1.40-6.50); %Basophils 0.2 % (0.0-1.0); %Eosinophils 0.1 % (0.0-10.0); %Lymphocytes 9.4 % (21.0-51.0); %Monocytes 2.5 % (0.0-10.0); %Neutrophils 87.9 % (42.0-75.0); Hemoglobin 13.8 g/dL (14.0-18.0); Mean Corpuscular HGB CONC 31.8 g/dL (32.0-36.0); Mean Corpuscular Hemoglobin 30.2 pg (27.0-31.0); Mean Corpuscular Volume 94.8 fL (78.0-98.0); Mean Platelet Volume 8.6 fL (7.4-10.4); Platelet Count 216 thou/uL (130-400); RBC Distribution Width 15.7 % (11.5-14.5); Red Blood Cell (RBC) Count 4.59 mill/uL (4.70-6.10); White Blood Cell (WBC) Count 14.4 thou/uL (4.8-10.8)
[2019-12-31 07:14] LABS: Chloride 109 mmol/L (98-107); Potassium 4.1 mmol/L (3.5-5.1); Sodium 140 mmol/L (136-145)
[2019-12-31 07:15] LABS: Calcium 8.4 mg/dL (7.8-10.44); Glucose 116 mg/dL (70-105)
[2019-12-31 07:17] LABS: Anion Gap 18 mmol/L (10-20); Carbon Dioxide 17 mmol/L (22-29)
[2019-12-31 07:19] LABS: Calc. Creatinine Clearance 84 mL/min (70-130); Estimated GFR-MDRD 88
[2019-12-31 07:20] LABS: BUN (Urea Nitrogen) 25 mg/dL (8.4-25.7)
[2019-12-31] MEDS: Insulin Glargine 30 UNITS in Pre-Filled Syringe 1 EACH SC SCH (07:58)
[2019-12-31] MEDS: Rivaroxaban 10 MG TAB PO SCH (07:59)
[2019-12-31] MEDS: Alogliptin 25 MG TAB PO SCH (07:59)
[2019-12-31] MEDS: Tamsulosin HCl 0.4 MG CAP PO SCH (07:59)
[2019-12-31] MEDS: Atorvastatin Calcium 40 MG TAB PO SCH (07:59)
[2019-12-31] MEDS: Multivitamin W/ Minerals 1 TAB PO SCH (07:59)
[2019-12-31] MEDS: HumaLOG 300 UNITS/3 ML VIAL SC SCH ×2 (07:59→11:31)
[2019-12-31] MEDS: Ezetimibe 10 MG TAB PO SCH (07:59)
[2019-12-31] MEDS: Clotrimazole 1% Cream 15 GM TUBE TOP SCH (08:00)
[2019-12-31] MEDS: Empagliflozin 25 MG TAB PO SCH (08:00)
[2019-12-31] MEDS: Famotidine 20 MG TAB PO SCH (08:00)
[2019-12-31 11:52] VITALS: BP 110/65; TEMP 98.5
[2019-12-31] MEDS ORDERED: predniSONE 20 MG TAB PO SCH ×2 (12:30)
--- NOTE | 2020-01-01 11:36 | DIS ---
DATE OF ADMISSION: 12/30/2019 DATE OF DISCHARGE: 12/31/2019 DISCHARGE ATTENDING: Paul Hall MD CONSULTS: None. IMAGING STUDIES: Chest x-ray, no active cardiopulmonary abnormalities demonstrated. DISCHARGE MEDICATIONS: 1. Lipitor 40 mg p.o. q.a.m. 2. Anakinra 100 mg SQ q.p.m. 3. Zetia 10 mg p.o. q.a.m. 4. Pepcid 20 mg p.o. daily. 5. Theragran 1 tab p.o. daily. 6. Xarelto 20 mg p.o. q.a.m. 7. Flomax 0.4 mg p.o. q.a.m. 8. Tylenol 500 mg q.4 p.r.n. 9. Tramadol 100 mg p.o. q.6 hours p.r.n. 10. Januvia one tab p.o. daily. 11. Lantus 30 units SC q.a.m. 12. Novolin 10 units SQ a.c. 13. Clotrimazole 1 g topical daily. 14. Prednisone 60 mg p.o. daily. Discontinued medications: Prednisone 40 mg p.o. daily. DISCHARGE DIAGNOSIS: Adult Still disease with adrenal insufficiency. SECONDARY DIAGNOSES: 1. Diabetes mellitus type 2. 2. Hypertension. 3. Combined heart failure. 4. Elevated lipase. HISTORY OF PRESENT ILLNESS/HOSPITAL COURSE: Mr. Knight is a 59-year-old, well known to the service, who presents with hypertension and feeling poorly. He has a history of adult Still disease and recent adrenal insufficiency. Recently discharged home on a steroid taper for similar complaint. Treated for an infection in the ER, and infection ruled out subsequently. COVID swab negative. The patient most likely having flare of adult Still disease, which includes periodic fevers, hypotension, adrenal insufficiency. The patient was given stress dose of steroids and quickly improved. Steroid taper was increased without a taper. He was discharged without a taper, instructed to follow up with Dr. Barney, who made an appointment for him the following . DISCHARGE INSTRUCTIONS: 1. Location: Home. 2. Diet: Diabetic. 3. Activity: As tolerated. FOLLOWUP: Follow up with Dr. Barney and as scheduled in the next 3 days and PCP in the next 3 to 7 days. Job ID: [id number]
--- NOTE | 2020-01-05 12:46 | EKG ---
Test Reason : Blood Pressure : / mmHG Vent. Rate : 115 BPM Atrial Rate : 115 BPM P-R Int : 144 ms QRS Dur : 076 ms QT Int : 350 ms P-R-T Axes : 039 -04 -12 degrees QTc Int : 484 ms Sinus tachycardia Minimal voltage criteria for LVH, may be normal variant Nonspecific ST and T wave abnormality Abnormal ECG Confirmed by PRABHJOT DE JESUS M.D. ([id number]), story editor NANCY MILES ([id number]) on 01/05/2020 12:45:59 PM Referred By: Confirmed By:PRABHJOT DE JESUS M.D.
== END 2019-12-31 13:10 | disposition home or self-care (01) ==
LOC: ERS 20:43 → 2SW 12-30 00:23
PROVIDERS: ADMIT Family Medicine; ATTEND Family Medicine
DX: E27.40 Unspecified adrenocortical insufficiency (principal); M06.1 Adult-onset Still's disease; E11.9 Type 2 diabetes mellitus without complications; I11.0 Hypertensive heart disease with heart failure; I50.40 Unspecified combined systolic (congestive) and diastolic (congestive) heart failure; R74.8 Abnormal levels of other serum enzymes; Z79.4 Long term (current) use of insulin; Z79.899 Other long term (current) drug therapy; Z88.1 Allergy status to other antibiotic agents
CPT/HCPCS: 51701; 71045; 80048 ×2; 81003; 82010; 82550; 82805; 82962 ×2; 83605; 83690; 83735 ×2; 83880; 84145; 84484; 85025; 87040; 87086; 87804 ×2; 93005; 96361 ×3; 96374; 96375; 96376 ×2; 97139; 99285; G0378 ×3; U0003; 36415; 36416; 80053; 84443; 87635; J0696; J1720; J1815; J2930; J3490; J7512

== ENCOUNTER 2020-01-03 20:05 | Observation (INO) | payer MEDICARE ==
[2020-01-03] MEDS ORDERED: Piperacillin/Tazobactam 4.5 GM VIAL ONE (20:27)
[2020-01-03] MEDS ORDERED: Cefepime 2 GM VIAL ONE (20:27)
--- NOTE | 2020-01-03 21:05 | RAD ---
Chest AP view INDICATION: Fever and altered mental status COMPARISON: December 29, 2019 FINDINGS: Lungs: Low lung volumes accentuate the cardiac silhouette and pulmonary vasculature. No consolidatio n is evident. Cardiac silhouette: As above Pulmonary vasculature: Above Pleural spaces: No pleural effusion or pneumothorax is demonstrated. Upper abdomen: No abnormality seen. Osseous structures: No acute osseous abnormality. There is scattered degenerative and osteoarthritic change present. Additional findings: Stable left lower shoulder replacement. Stable cholecystectomy clips within the right upper quadrant. IMPRESSION: No acute cardiopulmonary abnormality. Low lung volumes.
[2020-01-03 21:08] LABS: Hemoglobin 15.3 g/dL (14.0-18.0); Mean Corpuscular HGB CONC 31.3 g/dL (32.0-36.0); Mean Corpuscular Hemoglobin 29.7 pg (27.0-31.0); Mean Corpuscular Volume 94.8 fL (78.0-98.0); Platelet Count 304 thou/uL (130-400); Red Blood Cell (RBC) Count 5.15 mill/uL (4.70-6.10); White Blood Cell (WBC) Count 12.5 thou/uL (4.8-10.8)
--- NOTE | 2020-01-03 21:12 | CT ---
CT Brain WO Con: 01/03/2020 12:00 AM CLINICAL HISTORY: Altered mental status. IMAGING TECHNIQUE: Multiple CT images were obtained of the brain without IV contrast. COMPARISON: September 14, 2019 CT of the brain FINDINGS: BRAIN: Evidence of infarct:No acute infarct is demonstrated. There is stable mild chronic small vessel white matter ischemic change. Evidence of cranial hemorrhage:None. Evidence of midline shift:Third ventricle and septum pellucidum are midline. Ventricles: Normal. No hydrocephalus. SKULL: Intact. VISUALIZED PARANASAL SINUSES: There is scattered mucosal thickening within the ethmoid air cells. MASTOID AIR CELLS:Clear. EXTRACRANIAL SOFT TISSUES:Normal. IMPRESSION: No acute intracranial abnormality. Mild paranasal sinus disease.
[2020-01-03 21:21] LABS: Band 14 % (5-11); Lymphocytes 2 % (21-51); MDiff Complete? YES; Metamyelocyte 1 % (0-0); Monocytes 6 % (0-10); Neutrophil 77 % (42-75); Platelet Morphology Comment Appears Adequate; RBC Morphology Normal
[2020-01-03 21:26] LABS: ALT (SGPT) 20 U/L (8-55); AST (SGOT) 30 U/L (5-34); Albumin 3.4 g/dL (3.5-5.0); Alkaline Phosphatase 96 U/L (40-110); Anion Gap 22 mmol/L (10-20); BUN (Urea Nitrogen) 11 mg/dL (8.4-25.7); Bilirubin, Total 0.7 mg/dL (0.2-1.2); Calc. Creatinine Clearance 0 mL/min (70-130); Calcium 9.1 mg/dL (7.8-10.44); Carbon Dioxide 19 mmol/L (22-29); Chloride 98 mmol/L (98-107); Estimated GFR-MDRD 89; Globulin 3.4 g/dL (2.4-3.5); Glucose 103 mg/dL (70-105); Lipase 112 U/L (8-78); Magnesium 1.6 mg/dL (1.6-2.6); Potassium 3.4 mmol/L (3.5-5.1); Protein, Total 6.8 g/dL (6.0-8.3); Sodium 136 mmol/L (136-145)
[2020-01-03 22:05] LABS: Bacteria/HPF None Seen HPF (None Seen); Bilirubin Negative (Negative); Blood, Urine Negative (Negative); Clarity Clear (Clear); Glucose, Urine (Dipstick) Greater than 1000 mg/dL (Negative); Leukocyte Negative Leu/uL (Negative); Nitrite Negative (Negative); Protein, Urine (Dipstick) 50 mg/dL (Neg-Trace); RBC/HPF None Seen HPF (0-3); Squamous Epithelial 0-3 HPF (0-3); Urobilinogen Normal mg/dL (Less than 2); WBC/HPF 0-3 HPF (0-3)
--- NOTE | 2020-01-03 22:59 | PDOC.FPRHP ---
- History of Present Illness Chief Complaint: Fever History of Present Illness: This is a 59 yo male, well know to our service from his prior admissions. He has a past medical hx of DM2, C-spine fusion, adult Still disease rheumatoid arthritis, currently on Prednisone 60mg (without a taper) and anakinra who was recently discharged from our service three days ago. At that time, he presented to the ER with a cc fever and weakness. He was admitted for a flare of his adult Still disease and discharged on 12/30. Today he is presenting with a similar picture. He states he has a fever, weakness, and sepsis. He denies nausea, vomiting, SOB, cough, dysuria, rashes, chest pain, or abdominal pain. He states he talked with his rheumatolotist today who told him to keep taking his medication. The patient reports he is compliant with his medications. ED Course: Cefepime 2g Zosyn 4.5g NS 125ml/hr - Allergies/Adverse Reactions Allergies Allergy/AdvReac Type Severity Reaction Status Date / Time vancomycin Allergy Intermediate Verified 01/04/20 00:43 - Home Medications Medication Instructions Recorded Confirmed Type Atorvastatin Calcium [Lipitor] 40 mg PO QAM 10/18/15 01/03/20 History Anakinra [Kineret] 100 mg SQ QPM 09/01/18 01/03/20 History Ezetimibe [Zetia] 10 mg PO QAM tab 01/03/19 01/03/20 Rx Famotidine [Pepcid] 20 mg PO DAILY tab 01/03/19 01/03/20 Rx Multivitamin W/ Minerals 1 tab PO DAILY tab 01/03/19 01/03/20 Rx [Theragran M] Rivaroxaban [Xarelto] 20 mg PO QAM-WM tab 01/03/19 01/03/20 Rx Tamsulosin HCl [Flomax] 0.4 mg PO QAM cap 01/03/19 01/03/20 Rx Acetaminophen [Tylenol Extra 500 mg PO Q4H PRN 02/03/19 01/03/20 History Strength] traMADol HCl [Tramadol HCl] 100 mg PO Q6H PRN 05/30/19 01/03/20 History sitaGLIPtin Phosphate [Januvia] 1 tab PO DAILY 07/09/19 01/03/20 History Insulin Glargine [Lantus] 30 units SC QAM #0 vial 08/17/19 01/03/20 Rx Empagliflozin [Jardiance] 25 mg PO DAILY 12/23/19 01/03/20 History Insulin Aspart [Novolog Flexpen] 10 unit SQ AC 12/23/19 01/03/20 History Clotrimazole [Lotrimin 1% Cream] 1 gm TOP DAILY #1 tube 12/25/19 01/03/20 Rx predniSONE 60 mg PO 1230 #90 tab 12/31/19 01/03/20 Rx - History PMHx: HTN, HLD, DM2, Adult Still disease, Adrenal insufficiency, combined CHF PSHx: Cholecystgecomty, L shoulder surgery, L knee surgery, Cervical spinal fusion, r shoulder surgery FHx: noncontributory Social: Denies EVI - Review of Systems General: reports: fever/chills, fatigue. denies: weight/appetite/sleep changes Eyes: denies: eye pain, vision changes ENT: denies: nasal congestion, rhinorrhea Respiratory: denies: cough, congestion, shortness of breath, exercise intolerance Cardiovascular: denies: chest pain, palpitation, edema, paroxysmal nocturnal dyspnea Gastrointestinal: denies: nausea, vomiting, diarrhea, constipation, abdominal pain Genitourinary: denies: incontinence, dysuria Skin: denies: rashes, lesions, jaundice Musculoskeletal: reports: pain, tenderness (joint pain, chronic) Neurological: reports: weakness (generalized). denies: numbness, syncope Psychological: denies: anxiety, depression - Vital signs BP: 110/61 HR: 96 RR: 20 Tmax: 99.6 Pox: 97% on ra Wt: 80 kg - Physical Exam Constitutional: NAD, awake, alert and oriented, well developed HEENT: normocephalic and atraumatic, EOMI, grossly normal vision, grossly normal hearing, MMM Neck: trachea midline, no JVD Chest: no-tender to palpation, no lesions Heart: RRR, normal S1/S2, no murmurs/rubs/gallops, pulses present, no edema Lungs: CTAB, no respiratory distress, good air movement, no rales/rhonchi Abdomen: soft, non-tender, bowel sounds present, no masses/distention Musculoskeletal: normal structure, normal tone Neurological: CN II-XII intact, normal sensation Skin: capillary refill <2 seconds Heme/Lymphatic: no unusual bruising or bleeding FMR H&P: Results - Labs Result Diagrams: 01/03/20 20:32 01/03/20 20:32 Lab results: WBC 12.5 thou/uL (4.8-10.8) H 01/03/20 20:32 Hgb 15.3 g/dL (14.0-18.0) 01/03/20 20:32 Hct 48.8 % (42.0-52.0) 01/03/20 20: MCV 94.8 fL (78.0-98.0) 01/03/20 20:32 Plt Count 304 thou/uL (130-400) 01/03/20 20:32 Band Neuts % (Manual) 14 % (5-11) H 01/03/20 20:32 Sodium 136 mmol/L (136-145) 01/03/20 20:32 Potassium 3.4 mmol/L (3.5-5.1) L 01/03/20 20: Chloride 98 mmol/L (98-107) 01/03/20 20: Carbon Dioxide 19 mmol/L (22-29) L 01/03/20 20:32 BUN 11 mg/dL (8.4-25.7) 01/03/20 20:32 Creatinine 1.04 mg/dL (0.7-1.3) 01/03/20 20:32 Glucose 103 mg/dL (70-105) 01/03/20 20:32 Lactic Acid 2.3 mmol/L (0.5-2.2) H 01/03/20 20:32 Calcium 9.1 mg/dL (7.8-10.44) 01/03/20 20:32 Total Bilirubin 0.7 mg/dL (0.2-1.2) 01/03/20 20:32 AST 30 U/L (5-34) 01/03/20 20:32 ALT 20 U/L (8-55) 01/03/20 20:32 Alkaline Phosphatase 96 U/L (40-110) 01/03/20 20:32 B-Natriuretic Peptide 81.6 pg/mL (0-100) 01/03/20 20:40 Serum Total Protein 6.8 g/dL (6.0-8.3) 05/14/20 20:32 Albumin 3.4 g/dL (3.5-5.0) L 01/03/20 20:32 Lipase 112 U/L (8-78) H 01/03/20 20:32 Urine Ketones 60 mg/dL (Negative) A 01/03/20 21:46 Urine Blood Negative (Negative) 01/03/20 21:46 Urine Nitrite Negative (Negative) 01/03/20 21:46 Ur Leukocyte Esterase Negative David/uL (Negative) 01/03/20 21:46 Urine RBC None Seen HPF (0-3) 01/03/20 21:46 Urine WBC 0-3 HPF (0-3) 01/03/20 21:46 Ur Squamous Epith Cells 0-3 HPF (0-3) 01/03/20 21:46 Urine Bacteria None Seen HPF (None Seen) 01/03/20 21:46 - Radiology Interpretation Chest x-ray Status: report reviewed by me (No acute cardiopulmonary abnormality, low lung volume) CT scan - head Status: report reviewed by me (No acute intracranial abnormality) FMR H&P: A/P - Problem List (1) Adrenal insufficiency Current Visit: No Status: Acute Code(s): E27.40 - UNSPECIFIED ADRENOCORTICAL INSUFFICIENCY (2) Adult Still's disease Current Visit: No Status: Chronic Code(s): M06.1 - ADULT-ONSET STILL'S DISEASE Comment: Cont Anakinran and PO steroids.OP Rheumatology follow up - Plan Adult stills with adrenal insufficiency - will give stress dose steroids Solucortef 100mg then 50mg q6hr - likley Stills flair, no evidence of localized infection identified - monitor vitals - S/P cefepime and zosyn, will not continue abx at this time SIRS - likley related to adrenal insufficiency, see above DMII - achs accuchecks and home meds - monitor HTN: -hypotensive - hold meds Combined HF - no evidence of acute excaberation on exam - monitor Is Os Elevated Lipase - no epigastric pain - LFTs wnl Addendum - Attending - Attending Attestation Date/Time: 01/04/20 [id number] I personally evaluated the patient and discussed the management with Dr. Schafer. I agree with the History, Examination, Assessment and Plan documented above with any addition or exceptions noted below. It is unclear to me if he is adherent to his medication regimen. He cannot remember detail from his last rheum appointment, which was this week. Will obs him overnight and hopeful dc in the AM.
[2020-01-03] MEDS ORDERED: Acetaminophen 500 MG TAB PO PRN (23:53)
[2020-01-03] MEDS ORDERED: traMADol HCl 50 MG TAB PO PRN (23:53)
[2020-01-04] MEDS ORDERED: Acetaminophen 325 MG TAB PO PRN (00:08)
[2020-01-04] MEDS ORDERED: Ondansetron PF 4 MG/2 ML Vial IVP PRN (00:08)
[2020-01-04] MEDS ORDERED: Dextrose 50% Abboject 50 ML SYRINGE SLOW IVP PRN (00:08)
[2020-01-04] MEDS ORDERED: Dextrose 5% in Water 1,000 ML IV PRN (00:08)
[2020-01-04] MEDS ORDERED: Ondansetron ODT 4 MG TAB PO PRN (00:08)
[2020-01-04] MEDS ORDERED: HumaLOG 300 UNITS/3 ML VIAL SC PRN (00:08)
[2020-01-04] MEDS ORDERED: Hydrocortisone Sod Succ/PF 100 mg/2 ml Vial IVP SCH (00:15)
[2020-01-04 00:19] LABS: Lactic Acid 0.8 mmol/L (0.5-2.2)
[2020-01-04 00:34] VITALS: BMI 23.1
[2020-01-04 03:40] LABS: Troponin I 0.028 ng/mL (< 0.028)
[2020-01-04] MEDS: Hydrocortisone Sod Succ/PF 100 mg/2 ml Vial IVP SCH ×3 (05:48→17:00)
--- NOTE | 2020-01-04 07:19 | PDOC.FM ---
- Subjective Subjective: pt resting comfortably in bed, reports feeling better. he reports he has taking his medication as prescribed. he reports that yesterday Dr. Israel ([facility]) discussed starting mtx. he has not done this yet. - Objective Vital Signs & Weight: Vital Signs (12 hours) Temp Pulse Resp BP BP Pulse Ox 01/04/20 07:02 99 01/04/20 03:00 97.4 F L 79 18 95/51 L 99 01/03/20 23:45 98.8 F 90 14 95/53 L 98 Weight Weight 77.474 kg I&O: 01/03/20 01/04/20 01/05/20 06:59 06:59 06:59 Intake Total 985 Balance 985 Result Diagrams: 01/04/20 09:11 01/04/20 11:40 Phys Exam - Physical Examination Constitutional: NAD HEENT: moist MMs, sclera anicteric Neck: no nodes, supple Respiratory: clear to auscultation bilateral Cardiovascular: no significant murmur Gastrointestinal: non-tender, no distention Musculoskeletal: pulses present, edema present Neurological: non-focal, normal sensation, moves all 4 limbs Psychiatric: normal affect Skin: no rash Dx/Plan (1) Adrenal insufficiency Code(s): E27.40 - UNSPECIFIED ADRENOCORTICAL INSUFFICIENCY Status: Acute (2) Hyperglycemia due to type 2 diabetes mellitus Code(s): E11.65 - TYPE 2 DIABETES MELLITUS WITH HYPERGLYCEMIA Status: Acute (3) SIRS (systemic inflammatory response syndrome) Code(s): R65.10 - SIRS OF NON-INFECTIOUS ORIGIN W/O ACUTE ORGAN DYSFUNCTION Status: Acute (4) 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 DISEASE Status: Chronic - Plan Plan: Adult stills with adrenal insufficiency - stress dose steroids Solucortef 50mg q6hr - monitor vitals - continue anikinra SIRS - likley related to adrenal insufficiency, see above - will pursue further work up, abx - BCx/UCx pending DMII - achs accuchecks and home meds - monitor HTN: -hypotensive - hold meds Combined HF - no evidence of acute excaberation on exam - monitor Is Os Elevated Lipase - no epigastric pain - LFTs wnl code: full pcp: simeon ppx: lovenox dispo: continue further eval, treat: broad spectrum abx Addendum - Attending - Attending Attestation Date/Time: 01/04/20 [id number] I personally evaluated the patient and discussed the management with Dr. Keating. I agree with the History, Examination, Assessment and Plan documented above with any addition or exceptions noted below. Patient back at baseline. Unsure about his reason for repeat admission. Discussed with patient again that due to his chronic disease he may have sporadic fevers and malaise. His controller coal or ore started him on new meds that he has not yet begun. PT consult, possible placement for therapy and med adherence though will await PT recs.
[2020-01-04] MEDS ORDERED: Rivaroxaban 10 MG TAB PO SCH (08:00)
[2020-01-04] MEDS ORDERED: Empagliflozin 25 MG TAB PO SCH (09:00)
[2020-01-04] MEDS ORDERED: Clotrimazole 1% Cream 15 GM TUBE TOP SCH (09:00)
[2020-01-04] MEDS ORDERED: Ezetimibe 10 MG TAB PO SCH (09:00)
[2020-01-04] MEDS ORDERED: Insulin Glargine 30 UNITS in Pre-Filled Syringe 1 EACH SC SCH (09:00)
[2020-01-04] MEDS ORDERED: Famotidine 20 MG TAB PO SCH (09:00)
[2020-01-04] MEDS ORDERED: Atorvastatin Calcium 40 MG TAB PO SCH (09:00)
[2020-01-04] MEDS ORDERED: Alogliptin 25 MG TAB PO SCH (09:00)
[2020-01-04] MEDS ORDERED: Clotrimazole 1 % Cream 30 GM TUBE TOP SCH (09:00)
[2020-01-04] MEDS ORDERED: Tamsulosin HCl 0.4 MG CAP PO SCH (09:00)
[2020-01-04] MEDS ORDERED: Multivitamin W/ Minerals 1 TAB PO SCH (09:00)
[2020-01-04 09:19] LABS: Hemoglobin 15.7 g/dL (14.0-18.0); Mean Corpuscular HGB CONC 32.6 g/dL (32.0-36.0); Mean Corpuscular Hemoglobin 30.9 pg (27.0-31.0); Mean Corpuscular Volume 94.8 fL (78.0-98.0); Mean Platelet Volume 7.9 fL (7.4-10.4); Platelet Count 202 thou/uL (130-400); RBC Distribution Width 16.1 % (11.5-14.5); Red Blood Cell (RBC) Count 5.08 mill/uL (4.70-6.10); White Blood Cell (WBC) Count 11.9 thou/uL (4.8-10.8)
[2020-01-04 09:42] LABS: Band 19 % (5-11); Lymphocytes 16 % (21-51); MDiff Complete? YES; Monocytes 2 % (0-10); Neutrophil 62 % (42-75); Platelet Morphology Comment Appears Adequate; Polychromasia SLIGHT = 2-3 cells (100X) (0-2/hpf); Reactive Lymphocytes 1 % (0-10)
[2020-01-04] MEDS: HumaLOG 300 UNITS/3 ML VIAL SC SCH ×3 (11:03→17:00)
[2020-01-04] MEDS: HumaLOG 300 UNITS/3 ML VIAL SC PRN ×2 (11:03→17:02)
[2020-01-04 12:14] LABS: ALT (SGPT) 20 U/L (8-55); AST (SGOT) 26 U/L (5-34); Albumin 3.1 g/dL (3.5-5.0); Alkaline Phosphatase 84 U/L (40-110); Anion Gap 28 mmol/L (10-20); BUN (Urea Nitrogen) 19 mg/dL (8.4-25.7); Bilirubin, Total 0.7 mg/dL (0.2-1.2); Calc. Creatinine Clearance 80 mL/min (70-130); Calcium 8.9 mg/dL (7.8-10.44); Carbon Dioxide 11 mmol/L (22-29); Chloride 103 mmol/L (98-107); Estimated GFR-MDRD 84; Globulin 3.6 g/dL (2.4-3.5); Glucose 173 mg/dL (70-105); Potassium 5.3 mmol/L (3.5-5.1); Protein, Total 6.7 g/dL (6.0-8.3); Sodium 137 mmol/L (136-145)
[2020-01-04] MEDS ORDERED: predniSONE 20 MG TAB PO SCH (12:30)
[2020-01-04 15:48] VITALS: BP 93/59; TEMP 97.6
[2020-01-04] MEDS ORDERED: ANAKINRA 100 MG SCH (21:00)
[2020-01-04] MEDS ORDERED: Prevnar 13-Val Conj/PF 0.5 ML SYRINGE IM ONE (21:00)
--- NOTE | 2020-01-05 15:11 | EKG ---
Test Reason : Blood Pressure : / mmHG Vent. Rate : 120 BPM Atrial Rate : 120 BPM P-R Int : 140 ms QRS Dur : 084 ms QT Int : 336 ms P-R-T Axes : 035 000 -37 degrees QTc Int : 474 ms Sinus tachycardia Left ventricular hypertrophy with repolarization abnormality Abnormal ECG Confirmed by MAT COMER, JANIE Alva ([id number]), film and video editor NANCY MILES ([id number]) on 01/05/2020 3:10:40 PM Referred By: Confirmed By:JANIE RIVERO MD
--- NOTE | 2020-01-06 04:33 | DIS ---
DATE OF ADMISSION: 01/03/2020 DATE OF DISCHARGE: 01/04/2020 ADMITTING ATTENDING: Dr. Jero Valero. DISCHARGE ATTENDING: Dr. Paul aHll. CONSULTS: None. RESIDENT: Dr. Marco Keating. IMAGING DATA: Brain CT shows no acute intracranial process. Chest x-ray shows no acute cardiopulmonary process. DISCHARGE MEDICATIONS: 1. Lipitor 40 mg p.o. q.a.m. 2. Kineret 100 mg SQ q.p.m. 3. Zetia 10 mg p.o. q.a.m. 4. Famotidine 20 mg p.o. daily. 5. Theragran one tablet p.o. daily. 6. Xarelto 20 mg p.o. q.a.m. with meals. 7. Flomax 0.4 mg p.o. q.a.m. 8. Acetaminophen 500 mg p.o. q.4 hours p.r.n. 9. Tramadol 100 mg p.o. q.6 hours p.r.n. 10. Januvia one tablet p.o. daily. 11. Lantus 30 units SC q.a.m. 12. NovoLog 10 units SQ a.c. 13. Jardiance 25 mg p.o. daily. 14. Lotrimin 1% cream 1 g topically daily. 15. Prednisone 60 mg p.o. at 12:30 daily. HISTORY OF PRESENT ILLNESS/HOSPITAL COURSE: Mr. Stephani Knight is a 59-year-old male, well known to our service with a past medical history of adult Still disease, who presents to the emergency department with a chief complaint of weakness and fever. Of note, the patient had been presenting to this emergency department with these complaints for quite some time. He routinely has hypertensive episodes and is related to his Still disease and quotidian fevers. The patient has had extensive workup for a bacterial or malignant cause for these fevers, and it was determined that the patient has adult Still disease. He follows with Dr. Barney. The patient was admitted for a sepsis type picture. I gave him cefepime and Zosyn on his vital signs remained at his stable at baseline hypertensive and normotensive. The patient was given stress dose steroids, and immediately felt better. Upon further evaluation, it is determined the patient possibly missed 8 dose of steroids and that his family anytime that he spikes a fever will call EMS and they will bring him to the emergency room immediately. After talking with the zoning assistant receptionist and extensively counseling patient on adult Still disease and the possibility to still have a fever without a severe illness developing, the patient has agreed to call his primary care physician's office or the After Hours pager with concerns. ER precautions were given. The patient is to follow up with zoning assistant in 2 weeks. DISCHARGE INSTRUCTIONS: LOCATION: Home. DIET: Diabetic. ACTIVITY: As tolerated. FOLLOWUP: Follow up with PCP in the next 3 to 7 days. Job ID: [id number]
== END 2020-01-04 18:00 | disposition home or self-care (01) ==
LOC: ERS 20:05 → 2NO 23:40
PROVIDERS: ADMIT Emergency Medicine; ATTEND Emergency Medicine
DX: M06.1 Adult-onset Still's disease (principal); E27.40 Unspecified adrenocortical insufficiency; E11.9 Type 2 diabetes mellitus without complications; I11.0 Hypertensive heart disease with heart failure; I50.40 Unspecified combined systolic (congestive) and diastolic (congestive) heart failure; R65.10 Systemic inflammatory response syndrome (SIRS) of non-infectious origin without acute organ dysfunction; E78.5 Hyperlipidemia, unspecified; Z79.899 Other long term (current) drug therapy; Z79.4 Long term (current) use of insulin; Z88.1 Allergy status to other antibiotic agents
CPT/HCPCS: 36415; 36416; 70450; 71045; 80053; 81003; 81015; 82533; 83605; 83690; 83735; 83880; 84145; 84484; 85025; 87040; 87086; 87804; 93005; 94760; J0692; J1720; J1815; J2543; J7512

== ENCOUNTER 2020-01-27 00:56 | Inpatient (IN) | payer MEDICARE ==
[2020-01-27] MEDS ORDERED: Dexamethasone 10 MG/ML VIAL ONE (01:11)
[2020-01-27] MEDS ORDERED: Cefepime 2 GM VIAL ONE (01:32)
[2020-01-27] MEDS ORDERED: Acetaminophen 650 MG Suppository ONE (01:32)
[2020-01-27 01:51] LABS: ALT (SGPT) 25 U/L (8-55); AST (SGOT) 34 U/L (5-34); Alkaline Phosphatase 109 U/L (40-110); Anion Gap 20 mmol/L (10-20); BUN (Urea Nitrogen) 23 mg/dL (8.4-25.7); Bilirubin, Total 0.5 mg/dL (0.2-1.2); Calc. Creatinine Clearance 0 mL/min (70-130); Calcium 8.3 mg/dL (7.8-10.44); Carbon Dioxide 21 mmol/L (22-29); Chloride 108 mmol/L (98-107); Estimated GFR-MDRD 64; Globulin 2.7 g/dL (2.4-3.5); Glucose 429 mg/dL (70-105); Hemoglobin 13.4 g/dL (14.0-18.0); Mean Corpuscular HGB CONC 32.2 g/dL (32.0-36.0); Mean Corpuscular Hemoglobin 30.3 pg (27.0-31.0); Mean Corpuscular Volume 94.1 fL (78.0-98.0); Mean Platelet Volume 7.9 fL (7.4-10.4); Platelet Count 148 thou/uL (130-400); Potassium 4.8 mmol/L (3.5-5.1); Protein, Total 5.7 g/dL (6.0-8.3); RBC Distribution Width 15.7 % (11.5-14.5); Red Blood Cell (RBC) Count 4.42 mill/uL (4.70-6.10); Sodium 144 mmol/L (136-145); White Blood Cell (WBC) Count 13.5 thou/uL (4.8-10.8)
--- NOTE | 2020-01-27 02:18 | PDOC.FPRHP ---
- History of Present Illness Chief Complaint: Found down by family History of Present Illness: Unable to obtain from patient. Family told EMS that he recently was released from rehab. Today he was found down, unresponsive, at home. Initial BP was 67/36. He received a 500mL bolus of NS en route. Upon arrival to the ED he received 3L NS, tylenol, cefepime, and dexamethasone. - Allergies/Adverse Reactions Allergies Allergy/AdvReac Type Severity Reaction Status Date / Time vancomycin Allergy Intermediate Verified 01/07/20 20:03 - Home Medications Medication Instructions Recorded Confirmed Type Atorvastatin Calcium [Lipitor] 40 mg PO QAM 10/18/15 01/27/20 History Anakinra [Kineret] 100 mg SQ QPM 09/01/18 01/27/20 History Ezetimibe [Zetia] 10 mg PO QAM tab 01/03/19 01/27/20 Rx Famotidine [Pepcid] 20 mg PO DAILY tab 01/03/19 01/27/20 Rx Multivitamin W/ Minerals 1 tab PO DAILY tab 01/03/19 01/27/20 Rx [Theragran M] Rivaroxaban [Xarelto] 20 mg PO QAM-WM tab 01/03/19 01/27/20 Rx Tamsulosin HCl [Flomax] 0.4 mg PO QAM cap 01/03/19 01/27/20 Rx Acetaminophen [Tylenol Extra 500 mg PO Q4H PRN 02/03/19 01/27/20 History Strength] traMADol HCl [Tramadol HCl] 100 mg PO Q6H PRN 05/30/19 01/27/20 History Insulin Aspart [Novolog Flexpen] 10 unit SQ AC 12/23/19 01/27/20 History Clotrimazole [Lotrimin 1% Cream] 1 gm TOP DAILY #1 tube 12/25/19 01/27/20 Rx Alogliptin 25 mg PO DAILY tab 01/10/20 01/27/20 Rx Fludrocortisone Acetate [Florinef] 0.1 mg PO DAILY #0 tab 01/10/20 01/27/20 Rx Glucagon 1 mg IM PRN PRN vial 01/10/20 01/27/20 Rx Insulin Glargine [Lantus Vial] 35 units SC QAM vial 01/10/20 01/27/20 Rx predniSONE 60 mg PO 1200 tab 01/10/20 01/27/20 Rx - History PMHx: Adult Still's disease RA, DM2, combined CHF, HLD, adrenal insufficiency PSHx: shukri, L shoulder sx, L knee sx, cervical spine fusion, R shoulder sx FHx: non-contributory Social: denies smoking, drinking, drug use - Review of Systems ROS unobtainable: due to mental status - Vital signs BP: 99/45, Pulse: 136, Resp: 30, Pain: UTR, O2 sat: 100 on (Room Air), Time: 01/26 02:10 Weight 75kg - Physical Exam Constitutional: NAD -Constitutional: Arousable, will answer "yes" to name, but will not answer any other questions HEENT: normocephalic and atraumatic, PERRLA, conjunctiva clear, grossly normal vision, grossly normal hearing Neck: supple, trachea midline Heart: normal S1/S2, no murmurs/rubs/gallops -Heart: Tachycardic Lungs: CTAB, no respiratory distress, good air movement, no rales/rhonchi, no wheezing Abdomen: soft, non-tender, bowel sounds present Musculoskeletal: normal structure, normal tone Skin: no rash/lesions, good turgor Heme/Lymphatic: no unusual bruising or bleeding, no purpura -Heme/Lymphatic: 2+ pitting edema to the ankle bilaterally. FMR H&P: Results - Labs Result Diagrams: 01/27/20 01:17 01/27/20 04:03 Lab results: WBC 13.5 thou/uL (4.8-10.8) H 01/27/20 01:17 Hgb 13.4 g/dL (14.0-18.0) L 01/27/20 01:17 Hct 41.6 % (42.0-52.0) L 01/27/20 01:17 MCV 94.1 fL (78.0-98.0) 01/27/20 01:17 Plt Count 148 thou/uL (130-400) 01/27/20 01:17 Sodium 144 mmol/L (136-145) 01/27/20 01:17 Potassium 4.8 mmol/L (3.5-5.1) 01/27/20 01:17 Chloride 108 mmol/L (98-107) H 01/27/20 01:17 Carbon Dioxide 21 mmol/L (22-29) L 01/27/20 01:17 BUN 23 mg/dL (8.4-25.7) 01/27/20 01:17 Creatinine 1.38 mg/dL (0.7-1.3) H 01/27/20 01:17 Glucose 429 mg/dL (70-105) H 01/27/20 01:17 Lactic Acid 7.6 mmol/L (0.5-2.2) H* 01/27/20 01:17 Calcium 8.3 mg/dL (7.8-10.44) 01/27/20 01:17 Total Bilirubin 0.5 mg/dL (0.2-1.2) 01/27/20 01:17 AST 34 U/L (5-34) 01/27/20 01:17 ALT 25 U/L (8-55) 01/27/20 01:17 Alkaline Phosphatase 109 U/L (40-110) 01/27/20 01:17 Serum Total Protein 5.7 g/dL (6.0-8.3) L 01/27/20 01:17 Albumin 3.0 g/dL (3.5-5.0) L 01/27/20 01:17 - EKG Interpretation EKG: Sinus tach FMR H&P: A/P - Problem List (1) Acute kidney injury Current Visit: No Status: Acute Code(s): N17.9 - ACUTE KIDNEY FAILURE, UNSPECIFIED (2) Addisonian crisis Current Visit: No Status: Acute Code(s): E27.2 - ADDISONIAN CRISIS (3) Adrenal insufficiency Current Visit: No Status: Acute Code(s): E27.40 - UNSPECIFIED ADRENOCORTICAL INSUFFICIENCY (4) Hx of deep venous thrombosis Current Visit: No Status: Acute Code(s): Z86.718 - PERSONAL HISTORY OF OTHER VENOUS THROMBOSIS AND EMBOLISM (5) Hyperglycemia due to type 2 diabetes mellitus Current Visit: No Status: Acute Code(s): E11.65 - TYPE 2 DIABETES MELLITUS WITH HYPERGLYCEMIA (6) Increased anion gap metabolic acidosis Current Visit: No Status: Acute Code(s): E87.2 - ACIDOSIS (7) Ketoacidosis due to diabetes mellitus Current Visit: No Status: Acute Code(s): E11.10 - TYPE 2 DIABETES MELLITUS WITH KETOACIDOSIS WITHOUT COMA (8) Non compliance with medical treatment Current Visit: No Status: Acute Code(s): Z91.19 - PATIENT'S NONCOMPLIANCE W OTH MEDICAL TREATMENT AND REGIMEN (9) Adrenal insufficiency Current Visit: No Status: Chronic Code(s): E27.40 - UNSPECIFIED ADRENOCORTICAL INSUFFICIENCY (10) Adult Still's disease Current Visit: No Status: Chronic Code(s): M06.1 - ADULT-ONSET STILL'S DISEASE Comment: Cont Anakinran and PO steroids.OP Rheumatology follow up (11) Chronic anticoagulation Current Visit: No Status: Chronic Code(s): Z79.01 - TRANSITION MANAGER (CURRENT) USE OF ANTICOAGULANTS Comment: Continue Xarelto (12) Diabetes type 2, controlled Current Visit: No Status: Chronic Code(s): E11.9 - TYPE 2 DIABETES MELLITUS WITHOUT COMPLICATIONS (13) Dyslipidemia Current Visit: No Status: Chronic Code(s): E78.5 - HYPERLIPIDEMIA, UNSPECIFIED (14) Essential hypertension Current Visit: No Status: Chronic Code(s): I10 - ESSENTIAL (PRIMARY) HYPERTENSION Comment: controlled.monitor.Pt w Potential for hypotension w Still's disease - Plan Adrenal insufficiency - Recently discharged from Rehab. He was on 60 mg prednisone and 0.1mg fludrocortisone - Will start SoluCortef 50mg QID and fludrocortisone 0.1mg po daily. - Admit to IMCU for close monitoring of BP - PT / OT / Palliative consulted SIRS - History of resistant UTI - UA pending. Received cefepime in ED. - Suspect fever 2/2 inflammatory process Anion gap metabolic acidosis, likely 2/2 DKA - Will initiate DKA protocol, placing close attention to BG Adult Still's Disease - Suspect medication non-compliance - Will consult palliative care and case management for assistance - Patient would benefit from placement to assist with medication compliance. Potential need for longer post-acute care stay such as LTAC or NH. CARL - Cr 1.38 - Renally dose medications DM2 - on DKA protocol. Once off, will start home medications - Patient with elevated anion gap at 15, beta hydroxybutyrate at 0.86, and bicarb 21 - Blood glucose 400s HLD - Continue home zetia and lipitor Combined CHF - No signs of fluid overload at this time - Will continue to monitor fluid status BPH - Continue flomax DVT PPX: Xeralto Code Status: Full Dispo: Admit to IMCU. Anticipate LOS >48 hours. FMR H&P: Upper Level - Plan Date/Time: 01/27/20 0218 PCP: Alice Cobb HPI: This is a 59 yo M with a history of non-compliance with his Stills disease medications. He was recently discharged from the hospital on 01/09 to rehab and went home in the last few days. EMS was called as he was found unresponsive at home. He is AxOx0 currenlty, states I feel fine but unable to answer questions appropriately. PHYSICAL EXAMINATION: General: NAD, alert and oriented x0 HEENT: PERRLA, EOMI, normal sclera, oropharynx without erythema or exudate Neck: Supple. Full ROM. Heart/Cardiovascular System: RRR, Cap refill < 3 seconds, no rub, no murmur Lungs/Respiratory System: CTA-B, no resp distress Abdomen/Gastro-Intestinal System: no abdominal tenderness, normal bowel sounds Extremities: Warm extremities. +2 edema at lower extremities bilaterally Neuro: No gross deficits appreciated. Patient uncooperative with exam Psychiatry: Awake, Alert Skin: No lesions, rashes, or ulcers Musculoskeletal: Full ROM A/P: #Hypotension 2/2 Adrenal insufficiency/Adult Stills likely 2/2 medication non- compliance - BPs currently stable, no need for pressors at this time - s/p dexamethasone in ED, continue with hydrocortisone 50mg q6hrs, add fludrocortisone 0.1 mg daily which he was sent home on - LA 7.8, will trend, blood/urine cultures pending - UA pending, s/p cefepime, hx of cefepime resistant UTI, start zosyn if UA + #Adult Still's Disease - Suspect medication non-compliance - continue home meds - Last admit palliative note states all family ok with NH except patient, continue to discuss #DKA, DM2 - B-hydroxy 0.86, AG 15, glucose 429 - History of euglycemic DKA - DKA protocol, monitor fluid status closely #CARL - Cr 1.39, baseline around 0.90 #Combined CHF - EF 50-55% July 10, consider repeat echo as patient has declined overall since this time - No pleural effusion or respiratory compromise, monitor fluid status - LLE edema #HLD, BPH - home meds DVT PPX: Xarelto Code Status: Full PCP: Nelli Dispo: discuss NH Addendum - Attending - Attending Attestation Date/Time: 01/27/20 9681 I personally evaluated the patient and discussed the management with Dr. Mcdonald I agree with the History, Examination, Assessment and Plan documented above with any addition or exceptions noted below- 59 yo M with a history of non- compliance with his Stills disease medications. He was recently discharged from the hospital on 01/09 to rehab and went home in the last few days. EMS was called as he was found unresponsive at home. He is AxOx0 currenlty, states I feel fine but unable to answer questions appropriately. PMH/PSH/Meds/SH reviewed and agree with resident's documentation. T102.5 P125 BP82/52 RR27 Exam repeated by me- able to answer questions more clearly now; states he is feeling better and does endorse that he missed some doses of his medication. Labs: WBC=13.5, H/H=13.4/41.6, Mko=683, Jg=586, K=4.8, Ab=769, CO2=21, BUN/Cr=23 /1.38, Kukk=819, lactic acid=7.6, AST/ALT=34/25, beta-hydroxybuterate=0.86. A/P : 1) Adrenal crisis secondary to medication noncompliance- Admit to IMCU; Continue IVF; start solucortef and florinef. If BP remain low may need pressors. Monitor urine output. 2) Adult Still's disease- restarted on steroids. 3) DM- continue IVF; start insulin and monitor accuchecks.
[2020-01-27 02:23] LABS: #Basophils 0.1 thou/uL (0.0-0.2); #Lymphocytes 3.8 thou/uL (1.20-3.40); #Monocytes 0.5 thou/uL (0.11-0.59); #Neutrophils 9.1 thou/uL (1.40-6.50); %Basophils 0.4 % (0.0-1.0); %Eosinophils 0.2 % (0.0-10.0); %Lymphocytes 28.5 % (21.0-51.0); %Monocytes 3.5 % (0.0-10.0); %Neutrophils 67.4 % (42.0-75.0); Anisocytosis SLIGHT = 6-15 cells (100X) (0-5/hpf); Large Platelets SLIGHT; MDiff Complete? YES
[2020-01-27] MEDS ORDERED: HumaLOG 300 UNITS/3 ML VIAL SC PRN ×2 (02:40)
[2020-01-27] MEDS ORDERED: Ondansetron PF 4 MG/2 ML Vial IVP PRN (02:40)
[2020-01-27] MEDS ORDERED: Dextrose 50% Abboject 50 ML SYRINGE SLOW IVP PRN (02:40)
[2020-01-27] MEDS ORDERED: Acetaminophen 325 MG TAB PO PRN (02:40)
[2020-01-27] MEDS ORDERED: Dextrose 5% in Water 1,000 ML IV PRN (02:40)
[2020-01-27] MEDS ORDERED: Acetaminophen 650 MG Suppository PR PRN (02:40)
[2020-01-27] MEDS ORDERED: Dextrose 5 %-0.45 % NaCl 1,000 ML IV PRN (03:04)
[2020-01-27] MEDS ORDERED: NS 0.9% w/ 20 MEQ KCL 1,000 ML IV PRN ×2 (03:04)
[2020-01-27] MEDS ORDERED: D5 1/2 NS w/20 mEq KCL 1,000 ML IV PRN (03:04)
[2020-01-27] MEDS ORDERED: Sodium Chloride 0.9% 1,000 ML IV PRN ×4 (03:04)
[2020-01-27] MEDS ORDERED: CCU Electrolyte Replacement 1 EACH IVPB ONE (03:04)
[2020-01-27 03:24] LABS: Bacteria/HPF None Seen HPF (None Seen); Bilirubin Negative (Negative); Blood, Urine Trace (Negative); Clarity Clear (Clear); Glucose, Urine (Dipstick) Greater than 1000 mg/dL (Negative); Leukocyte Negative Leu/uL (Negative); Nitrite Negative (Negative); Protein, Urine (Dipstick) 70 mg/dL (Neg-Trace); RBC/HPF 0-3 HPF (0-3); Squamous Epithelial 0-3 HPF (0-3); Urobilinogen Normal mg/dL (Less than 2)
[2020-01-27 03:29] LABS: Magnesium 1.7 mg/dL (1.6-2.6); Phosphorus 2.9 mg/dL (2.3-4.7)
[2020-01-27] MEDS ORDERED: HUMULIN R 100 UNITS in Sodium Chloride 0.9% 100 ML IVPB SCH (03:30)
[2020-01-27] MEDS ORDERED: Magnesium 2 GM/50 ML 2 GM in Premix Bag 1 BAG IVPB PRN (03:33)
[2020-01-27] MEDS ORDERED: Potassium Chloride 40 MEQ in Premix Bag 1 BAG IVPB PRN (03:33)
[2020-01-27] MEDS ORDERED: Potassium Chloride 20 MEQ TAB PO PRN (03:33)
[2020-01-27] MEDS ORDERED: Potassium Phosphate 12 MMOL in Sodium Chloride 0.9% 250 ML 250 ML IV PRN (03:33)
[2020-01-27] MEDS ORDERED: CCU ELECTROLYTE REPLACEMENT PROTOCOL FS PRN (03:33)
[2020-01-27] MEDS ORDERED: Potassium Phosphate 15 MMOL in Sodium Chloride 0.9% 250 ML 250 ML IV PRN (03:33)
[2020-01-27] MEDS ORDERED: Potassium Phosphate 9 MMOL in Sodium Chloride 0.9% 100 ML IVPB PRN (03:33)
[2020-01-27] MEDS ORDERED: Potassium Chloride 40 MEQ in Sodium Chloride 0.9% 250 ML 250 ML IVPB PRN (03:33)
[2020-01-27] MEDS ORDERED: Magnesium Oxide 400 MG TAB PO PRN ×2 (03:33)
[2020-01-27] MEDS ORDERED: PHOS-NAK 1 PKT PACK PO PRN ×2 (03:33)
[2020-01-27 04:21] VITALS: BMI 30.7
[2020-01-27 04:28] LABS: Lactic Acid 1.3 mmol/L (0.5-2.2)
[2020-01-27 04:31] LABS: Anion Gap 13 mmol/L (10-20); BUN (Urea Nitrogen) 22 mg/dL (8.4-25.7); Calc. Creatinine Clearance 96 mL/min (70-130); Calcium 7.2 mg/dL (7.8-10.44); Carbon Dioxide 20 mmol/L (22-29); Chloride 112 mmol/L (98-107); Estimated GFR-MDRD 80; Glucose 392 mg/dL (70-105); Potassium 3.6 mmol/L (3.5-5.1); Sodium 141 mmol/L (136-145)
[2020-01-27 04:55] LABS: CKMB 1.2 ng/mL (0-6.6)
[2020-01-27] MEDS ORDERED: Hydrocortisone Sod Succ/PF 100 mg/2 ml Vial IVP SCH (06:00)
[2020-01-27 07:41] LABS: Anion Gap 14 mmol/L (10-20); BUN (Urea Nitrogen) 20 mg/dL (8.4-25.7); Calc. Creatinine Clearance 110 mL/min (70-130); Calcium 7.4 mg/dL (7.8-10.44); Carbon Dioxide 18 mmol/L (22-29); Chloride 117 mmol/L (98-107); Estimated GFR-MDRD Greater than 90; Glucose 141 mg/dL (70-105); Potassium 3.6 mmol/L (3.5-5.1); Sodium 145 mmol/L (136-145)
[2020-01-27] MEDS ORDERED: HumaLOG 300 UNITS/3 ML VIAL SC SCH (08:00)
[2020-01-27 08:06] LABS: CKMB 1.1 ng/mL (0-6.6)
[2020-01-27] MEDS: Hydrocortisone Sod Succ/PF 100 mg/2 ml Vial IVP SCH ×4 (08:12→21:50)
[2020-01-27] MEDS ORDERED: Clotrimazole 1% Cream 15 GM TUBE TOP SCH (09:00)
[2020-01-27] MEDS ORDERED: Insulin Glargine 30 UNITS in Pre-Filled Syringe 1 EACH SC SCH (09:00)
[2020-01-27] MEDS: HumaLOG 300 UNITS/3 ML VIAL SC SCH ×3 (09:26→17:18)
[2020-01-27] MEDS: Insulin Glargine 35 UNITS in Pre-Filled Syringe 1 EACH SC SCH (09:26)
[2020-01-27] MEDS: Rivaroxaban 10 MG TAB PO SCH (09:27)
[2020-01-27] MEDS: Atorvastatin Calcium 20 MG TAB PO SCH (09:27)
[2020-01-27] MEDS: Alogliptin 25 MG TAB PO SCH (09:27)
[2020-01-27] MEDS: Tamsulosin HCl 0.4 MG CAP PO SCH (09:28)
[2020-01-27] MEDS: Clotrimazole 1 % Cream 30 GM TUBE TOP SCH (09:28)
[2020-01-27] MEDS: Ezetimibe 10 MG TAB PO SCH (09:28)
[2020-01-27] MEDS: Multivitamin W/ Minerals 1 TAB PO SCH (09:28)
[2020-01-27] MEDS: Famotidine 20 MG TAB PO SCH ×2 (09:28→21:49)
[2020-01-27 10:25] LABS: Troponin I 0.041 ng/mL (< 0.028)
[2020-01-27 10:28] LABS: Anion Gap 13 mmol/L (10-20); BUN (Urea Nitrogen) 21 mg/dL (8.4-25.7); Calc. Creatinine Clearance 115 mL/min (70-130); Calcium 7.2 mg/dL (7.8-10.44); Carbon Dioxide 18 mmol/L (22-29); Chloride 116 mmol/L (98-107); Estimated GFR-MDRD Greater than 90; Glucose 266 mg/dL (70-105); Potassium 4.1 mmol/L (3.5-5.1); Sodium 143 mmol/L (136-145)
[2020-01-27] MEDS: Lactated Ringer's 1,000 ML IV SCH (11:19)
--- NOTE | 2020-01-27 12:15 | RAD ---
AP CHEST: HISTORY: ICU followup. COMPARISON: 01/07/20 FINDINGS: Mild cardiomegaly. Vascular and interstitial markings are upper normal. No focal infiltrate and no ev idence of significant effusion. No acute interval change from prior exam. POS: [facility]
[2020-01-27 16:12] LABS: Anion Gap 12 mmol/L (10-20); BUN (Urea Nitrogen) 21 mg/dL (8.4-25.7); Calc. Creatinine Clearance 116 mL/min (70-130); Calcium 7.8 mg/dL (7.8-10.44); Carbon Dioxide 20 mmol/L (22-29); Chloride 113 mmol/L (98-107); Estimated GFR-MDRD Greater than 90; Glucose 272 mg/dL (70-105); Potassium 4.4 mmol/L (3.5-5.1); Sodium 141 mmol/L (136-145)
[2020-01-27] MEDS: ANAKINRA 100 MG SCH (21:51)
[2020-01-28] MEDS: cefTRIAXone\\ROCEPHIN 2 GM in Sodium Chloride 0.9% 100 ML IVPB SCH ×2 (00:58→23:20)
[2020-01-28] MEDS: Lactated Ringer's 1,000 ML IV SCH ×2 (00:59→13:43)
[2020-01-28] MEDS: Linezolid 600 MG in Premix Bag 1 BAG IVPB SCH ×2 (02:20→13:44)
[2020-01-28 04:47] LABS: Anion Gap 10 mmol/L (10-20); BUN (Urea Nitrogen) 16 mg/dL (8.4-25.7); Calc. Creatinine Clearance 136 mL/min (70-130); Carbon Dioxide 24 mmol/L (22-29); Chloride 110 mmol/L (98-107); Estimated GFR-MDRD Greater than 90; Glucose 218 mg/dL (70-105); Potassium 3.8 mmol/L (3.5-5.1); Sodium 140 mmol/L (136-145)
--- NOTE | 2020-01-28 05:39 | PDOC.BPN ---
- Brief Progress Note Blood cultures came back positive 2/2 for Gram positive cocci and clusters. And 1/2 positive for strep. Patient states he is allergic to vancomycin, however he does not know his reaction. In the past, he has had similar bacteremia treated with daptomycin. Will consult Liya in the morning. Started on Linezolid and Rocephin. Discussed with Dr. Valero.
--- NOTE | 2020-01-28 08:32 | PDOC.FM ---
- Subjective Subjective: Patient states he is feeling better this morning. His blood pressures have improved somewhat overnight. Denies any complaints this morning. Discussed preliminary results of blood cultures this morning and potential need for senior living antibiotics, patient in agreement with plan. - Objective MAR Reviewed: Yes Vital Signs & Weight: Vital Signs (12 hours) Temp 01/28/20 07:21 98.0 F 01/28/20 03:42 97.6 F 01/28/20 00:00 97.4 F L Weight Weight 96.978 kg Most Recent Monitor Data Heart Rate from ECG 94 NIBP 124/97 NIBP BP-Mean 106 Respiration from ECG 22 SpO2 100 I&O: 01/27/20 01/28/20 01/29/20 06:59 06:59 06:59 Intake Total 1315 3075 Output Total 925 Balance 1315 2150 Result Diagrams: 01/27/20 01:17 01/28/20 03:30 Phys Exam - Physical Examination Constitutional: NAD HEENT: moist MMs, sclera anicteric Neck: no JVD, supple, full ROM Respiratory: no wheezing, clear to auscultation bilateral Cardiovascular: RRR, no significant murmur Gastrointestinal: soft, no distention, positive bowel sounds Musculoskeletal: no edema, pulses present Neurological: normal sensation, moves all 4 limbs Psychiatric: normal affect, A&O x 3 Skin: no rash, normal turgor Dx/Plan (1) Adrenal insufficiency Code(s): E27.40 - UNSPECIFIED ADRENOCORTICAL INSUFFICIENCY Status: Acute (2) Bacteremia Code(s): R78.81 - BACTEREMIA Status: Acute (3) Hyperglycemia due to type 2 diabetes mellitus Code(s): E11.65 - TYPE 2 DIABETES MELLITUS WITH HYPERGLYCEMIA Status: Acute Qualifiers: Diabetes mellitus long chain beamer insulin use: with long chain beamer use Qualified Code( s): E11.65 - Type 2 diabetes mellitus with hyperglycemia; Z79.4 - care home ( current) use of insulin (4) SIRS (systemic inflammatory response syndrome) Code(s): R65.10 - SIRS OF NON-INFECTIOUS ORIGIN W/O ACUTE ORGAN DYSFUNCTION Status: Acute (5) UTI (urinary tract infection) Status: Acute Qualifiers: Urinary tract infection type: acute cystitis Hematuria presence: without hematuria Qualified Code(s): N30.00 - Acute cystitis without hematuria (6) 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 DISEASE Status: Chronic - Plan Plan: Patient is a 59 yo male with PMHx of Adult Still's Disease who presents after he was found down: #Adrenal insufficiency - Recently discharged from Rehab. He was on 60 mg prednisone and 0.1mg fludrocortisone - Will start SoluCortef 50mg QID and fludrocortisone 0.1mg po daily. - Admit to IMCU for close monitoring of BP - PT / OT / Palliative consulted #SIRS #Bacteremia, due to suspected MRSA - History of MDR UTI, patient has allergy to Vancomycin -was treated in November 2018 for MRSA bacteremia with Daptomycin -given 1 dose of Rocephin (01/26) and Linezolid (01/27) -consider consult ID-Dr. Nickerson today - UA suggestive of UTI. Received cefepime in ED - obtain ECHO to look for endocarditis/vegetations on valve as a potential source of infection - past admissions suggest patient has transient MRSA with unknown source #Anion gap metabolic acidosis, likely 2/2 DKA - Will initiate DKA protocol, placing close attention to BG #Adult Still's Disease - Suspect medication non-compliance - Will consult palliative care and case management for assistance - Patient would benefit from placement to assist with medication compliance. Potential need for longer post-acute care stay such as LTAC or NH. #CARL - Cr 1.38 - Renally dose medications #DM2 - on DKA protocol. Once off, will start home medications - Patient with elevated anion gap at 15, beta hydroxybutyrate at 0.86, and bicarb 21 - Blood glucose 400s #HLD - Continue home zetia and lipitor #Combined CHF - No signs of fluid overload at this time - Will continue to monitor fluid status #BPH - Continue flomax DVT PPX: Xeralto Code Status: Full Dispo: Stable, admitted to in patient in IMCU. Continue to monitor BP. Consider ID consult today given preliminary blood culture results positive. Anticipate LOS >48 hours. Addendum - Attending - Attending Attestation Date/Time: 01/28/20 1150 I personally evaluated the patient and discussed the management with Dr. Gallardo. I agree with the History, Examination, Assessment and Plan documented above with any addition or exceptions noted below. Patient stable. Overall doing well. Continues to have excuses for why he is not taking his medications appropriately. Based on labs, I do not suspect that he was in DKA, but was instead hyperglycemic. This is improved. He really needs senior living care and we will work with CM regarding that as he has had recurrent admissions for medication noncompliance and is very obviously unable to care for himself at home.
[2020-01-28] MEDS ORDERED: DAPTOmycin 500 MG in Sodium Chloride 0.9% 100 ML IVPB SCH (09:00)
--- NOTE | 2020-01-28 09:18 | RAD ---
FRONTAL RADIOGRAPH CHEST PORTABLE UPRIGHT: DATE: 01/27/2020. TIME: 11:45 p.m. COMPARISON: 01/27/2020 at 1:20 a.m. HISTORY: Evaluate for pneumonia. FINDINGS: Heart and mediastinal contours are stable. No pneumothorax, pleural fluid, focal consolidation, or a lveolar edema. IMPRESSION: No significant interval change. POS: [facility]
[2020-01-28] MEDS: HumaLOG 300 UNITS/3 ML VIAL SC SCH ×3 (10:18→17:46)
[2020-01-28] MEDS: Clotrimazole 1 % Cream 30 GM TUBE TOP SCH (10:19)
[2020-01-28] MEDS: Insulin Glargine 35 UNITS in Pre-Filled Syringe 1 EACH SC SCH (10:19)
[2020-01-28] MEDS: Hydrocortisone Sod Succ/PF 100 mg/2 ml Vial IVP SCH ×4 (10:19→20:09)
[2020-01-28] MEDS: Famotidine 20 MG TAB PO SCH ×2 (10:20→20:09)
[2020-01-28] MEDS: Ezetimibe 10 MG TAB PO SCH (10:20)
[2020-01-28] MEDS: Multivitamin W/ Minerals 1 TAB PO SCH (10:20)
[2020-01-28] MEDS: Alogliptin 25 MG TAB PO SCH (10:20)
[2020-01-28] MEDS: Atorvastatin Calcium 20 MG TAB PO SCH (10:20)
[2020-01-28] MEDS: Rivaroxaban 10 MG TAB PO SCH (10:20)
[2020-01-28] MEDS: Tamsulosin HCl 0.4 MG CAP PO SCH (10:20)
--- NOTE | 2020-01-28 14:24 | PDOC.PALCO ---
Palliative Care Consult - Consult Details Requesting Physician: Dr Gallardo Reason for Consult: goals of care, advance directives assistance, complex decision-making - Pertinent HPI 59 year old male with Stills disease paired with multiple morbidities. He was recently discharged from the hospital to rehab, subsequently to the home setting. He has home health services twice a week, with caregiver services to assist with consistency in relation to medication management. Mr Knight lives in an independent home setting with his mother and a nephew that "assists" who is disabled/autistic. History identifies that he was found unresponsive by family at home, they activated EMS, who on arrival reported a BP of 67/36 as well as hyperglycemia. Transported to the emergency room for further evaluation and subsequent admission to IMCU for suspected sepsis, adrenal crisis, CARL. - Pertinent PMH Stills disease, DM II, Combined heart failure, adrenal insufficiency - Social History Smoking Status: Never smoker Smoking: no tobacco exposure Alcohol Use: none Drug Use History: none Living Situation: independent (Lives with his elderly mother and a disabled nephew assists) - Medications MAR Reviewed: Yes - Allergies Allergies/Adverse Reactions: Allergies Allergy/AdvReac Type Severity Reaction Status Date / Time vancomycin Allergy Intermediate Verified 01/07/20 20:03 - Subjective Awake, alert, eating lunch. No complaints at time of assessment. Patient states he may need "antibiotics for a long time". - ROS Constitutional: alert ENT: other (Denies difficulity swallowing, throat irritation, congestion) Respiratory: other (deneis shortness of breath, cough) Cardiology: other (denies palpitations, chest discomfort) Gastrointestinal: other (Negative for nausea, vomiting ) Genitourinary: other (Negtative for dysuria, hematuria) Musculoskeletal: arthritis/arthralgias - Objective Vital Signs: Vital Signs - Most Recent Temp Pulse Resp BP Pulse Ox 98.0 F 104 H 116/72 100 01/28/20 11:05 01/28/20 12:15 01/28/20 12:15 01/28/20 12:15 Palliative Performance Scale: 60 - Physical Exam Constitutional: NAD HEENT: EOMI, moist MMs Respiratory: no wheezing, unlabored breathing Cardiovascular: RRR Gastrointestinal: continent, soft, non-tender Genitourinary: continent Musculoskeletal: no cyanosis, no clubbing Neurology: moves all 4 limbs Skin: cap refill <2 seconds, no lesions, no rash Psychiatric: A&O x 3, normal affect, normal mood - Problem List (1) Adrenal insufficiency Code(s): E27.40 - UNSPECIFIED ADRENOCORTICAL INSUFFICIENCY Current Visit: No Status: Acute (2) Hyperglycemia due to type 2 diabetes mellitus Code(s): E11.65 - TYPE 2 DIABETES MELLITUS WITH HYPERGLYCEMIA Current Visit: No Status: Acute Qualifiers: Diabetes mellitus alf insulin use: with intermission coordinator use Qualified Code( s): E11.65 - Type 2 diabetes mellitus with hyperglycemia; Z79.4 - long term care social worker ( current) use of insulin (3) Non compliance with medical treatment Code(s): Z91.19 - PATIENT'S NONCOMPLIANCE W OTH MEDICAL TREATMENT AND REGIMEN Current Visit: No Status: Acute (4) Palliative care encounter Code(s): Z51.5 - ENCOUNTER FOR PALLIATIVE CARE Current Visit: No Status: Acute (5) Adrenal insufficiency Code(s): E27.40 - UNSPECIFIED ADRENOCORTICAL INSUFFICIENCY Current Visit: No Status: Chronic (6) 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 DISEASE Current Visit: No Status: Chronic - Plan/Recommendations Plan: Palliative Care communicated with [facility], they state that he had been compliant. They had been providing education to the patient and family and additional provider services appeared to mitigate the gap in visits between Home health nurse. [facility] also report they were unaware of any "Missing medications" that the patient reports were not inplace since discharge from rehab to the home setting. Palliative Care communicated with [facility] to assist after discharge to assist in plan to help with medication management and patient disease processes. MPOA completed by Nubia [facility]. Will continue to address goal of care with patient and discuss disease processes and trajectory of illness. Please also refer to Janine Almendarez RNmerchandise coordinator RN notes in note section. [55] minutes spent on this encounter with >50% of the time in counseling and coordination of care. Thank you for this very appropriate consult.
--- NOTE | 2020-01-28 14:50 | PDOC.FMACP ---
Advance Care Planning - Problem (1) Adrenal insufficiency Status: Acute Code(s): E27.40 - UNSPECIFIED ADRENOCORTICAL INSUFFICIENCY (2) Hyperglycemia due to type 2 diabetes mellitus Status: Acute Code(s): E11.65 - TYPE 2 DIABETES MELLITUS WITH HYPERGLYCEMIA Qualifiers: Diabetes mellitus carpenter assembler insulin use: with carpenter assembler use Qualified Code( s): E11.65 - Type 2 diabetes mellitus with hyperglycemia; Z79.4 - substance abuse rn ( current) use of insulin (3) Non compliance with medical treatment Status: Acute Code(s): Z91.19 - PATIENT'S NONCOMPLIANCE W OTH MEDICAL TREATMENT AND REGIMEN (4) Palliative care encounter Status: Acute Code(s): Z51.5 - ENCOUNTER FOR PALLIATIVE CARE (5) Adrenal insufficiency Status: Chronic Code(s): E27.40 - UNSPECIFIED ADRENOCORTICAL INSUFFICIENCY (6) Adult Still's disease Status: Chronic Code(s): M06.1 - ADULT-ONSET STILL'S DISEASE - Note Participants: patient, palliative care Summary: Advanced Care Planning was discussed. The diagnosis, prognosis and goals of care were discussed. Appropriate forms and documentation to accomplish the goals of care were discussed. All questions were answered. The Palliative Care Team will be engaged to assist with completion of any outstanding forms that are needed. Mr Knight was given the opportunity to decline advanced directive paperwork/information. He elected to appoint his sister Akilah Nunez as his MPOA, this document was completed by Nubia Randall Palliative [facility] registrar. He opted not to complete Directive to physician at this time. He did communicate that he would not desire to have interventions if he could not be independent. He continues to agree with full resuscitation measures, however if he does not improve after resuscitation measures he would request care be withdrawn. Time Spent (mins): 30
--- NOTE | 2020-01-28 17:45 | CON ---
DATE OF CONSULTATION: 01/28/2020 REASON FOR CONSULTATION: Fever. HISTORY OF PRESENT ILLNESS: A 59-year-old, well known to us from multiple prior visits, who has a history of type 2 diabetes, C-spine fusion, adult Still disease, rheumatoid arthritis, on anakinra and prednisone. The patient has had quite a few admissions for various complications, both due to interruption of anakinra in the past as well as 2 infections with bacteremia. Most of the admissions were felt to be due to his underlying autoimmune syndrome. He has had episodes of MRSA bacteremia in the past and the last visit was June last year and our impression was that he had E coli bacteremia. We observed that there had been increased rates of bacteremia and the patient is receiving anakinra. The origin of the latest episode of bacteremia was not clear, probably urinary tract. Currently, Mr. Knight is biting at the bit to go home. He is feeling better. He believes that he had been at the rehab recently and had been admitted to the family medicine service with hypotension secondary to adrenal insufficiency, so he had been sent to rehab, and apparently when he went home, he missed 1 or 2 doses of anakinra and he thinks that this has led to this inflammatory process recrudescence. He denies any headaches. No shortness of breath, cough, or sputum production. He has diffuse joint stiffness as usual. No diarrhea. No genitourinary symptoms. Chronic joint symptoms, but unchanged. PAST MEDICAL HISTORY: Includes: 1. Adult Still disease. 2. Rheumatoid arthritis. 3. Type 2 diabetes. 4. Prior MRSA bacteremia. 5. Prior invasive UTI. PAST SURGICAL HISTORY: 1. Cholecystectomy. 2. Shoulder repair. 3. Neck fusion. 4. Knee arthroscopy. SOCIAL HISTORY: Never smoker. Lives with family in [place]. FAMILY HISTORY: Coronary artery disease and type 2 diabetes. ALLERGIES: VANCOMYCIN, PROBABLY NOT TRUE ALLERGY, BUT RED MAN SYNDROME. CURRENT MEDICATIONS: Include: 1. Tylenol. 2. Oligliptin. 3. Lipitor. 4. Ceftriaxone. 5. Zetia. 6. Pepcid. 7. Glucagon. 8. Insulin. 9. Linezolid. 10. Ondansetron. PHYSICAL EXAMINATION: VITAL SIGNS: T-max 98, blood pressure 105/70, pulse 108, respirations 19, and O2 saturation 100 on room air. SKIN: No areas of skin breakdown. Peripheral IV access. He is voiding in the toilet and urinal. No lymphadenopathy. HEENT: Ocular movements conjugate. Oral cavity normal. Conjunctivae normal. NECK: Supple. A little bit stiff. LUNGS: Symmetric breath sounds. HEART: S1 and S2. Regular rate. ABDOMEN: Not tender. No ascites. No bladder distention. EXTREMITIES: He has diffuse stiffness as usual. He moves all extremities. Trace edema in the lower extremities, particularly on the right side. NEUROLOGIC: His cognitive function appears to be intact. LABORATORY DATA: White cell count 13.5, hemoglobin 13.4, and platelets 148 with a normal differential. Sodium 140 and creatinine 0.8. Urinalysis with 4 to 6 wbc's. Two sets of blood cultures, one set with coagulase-negative Staph, the other set with alpha-hemolytic strep, which was not identified by viridans, any of the usual pathogenic alpha strep strains. ASSESSMENT AND DISCUSSION: Still's disease with rheumatoid arthritis, prior episodes of bacteremia, urinary tract infections, and now fever, which has resolved. The patient believes that this fever is due to interruption of anakinra for a day or 2 while in rehab. The Strep viridans positive culture could represent contamination of the sample rather than a true pathogen. None of the typical pathogenic viridans strep were identified on viridans profile. If the final alpha strep cultures confirmed that this is not any of the pathogenic ones, I would probably recommend discontinuation of antimicrobial therapy and discharge planning on his prior medications. Thus far, there are no focal areas of inflammatory process identified. Job ID: [id number]
[2020-01-28] MEDS ORDERED: Clopidogrel Bisulfate 75 MG TAB ONE (19:55)
[2020-01-28] MEDS: ANAKINRA 100 MG SCH (20:10)
[2020-01-28] MEDS: HumaLOG 300 UNITS/3 ML VIAL SC PRN (23:18)
[2020-01-29] MEDS: Lactated Ringer's 1,000 ML IV SCH ×2 (02:32→17:05)
[2020-01-29] MEDS: Linezolid 600 MG in Premix Bag 1 BAG IVPB SCH (02:32)
[2020-01-29 04:29] LABS: Anion Gap 10 mmol/L (10-20); BUN (Urea Nitrogen) 15 mg/dL (8.4-25.7); Calc. Creatinine Clearance 152 mL/min (70-130); Carbon Dioxide 24 mmol/L (22-29); Chloride 109 mmol/L (98-107); Estimated GFR-MDRD Greater than 90; Glucose 177 mg/dL (70-105); Potassium 3.2 mmol/L (3.5-5.1); Sodium 140 mmol/L (136-145)
[2020-01-29 07:51] LABS: #Basophils 0.1 thou/uL (0.0-0.2); #Lymphocytes 1.9 thou/uL (1.20-3.40); #Monocytes 0.5 thou/uL (0.11-0.59); #Neutrophils 9.8 thou/uL (1.40-6.50); %Basophils 0.5 % (0.0-1.0); %Eosinophils 0.1 % (0.0-10.0); %Lymphocytes 15.7 % (21.0-51.0); %Monocytes 3.8 % (0.0-10.0); %Neutrophils 79.9 % (42.0-75.0); Burr Cells SLIGHT = 2-5 cells (100X) (0-1/hpf); Hypochromia SLIGHT = 6-15 cells (100X) (0-5/hpf); MDiff Complete? YES; Mean Corpuscular HGB CONC 31.4 g/dL (32.0-36.0); Mean Corpuscular Hemoglobin 29.9 pg (27.0-31.0); Mean Corpuscular Volume 95.1 fL (78.0-98.0); Mean Platelet Volume 8.5 fL (7.4-10.4); Platelet Count 101 thou/uL (130-400); Platelet Morphology Comment Appears Decreased; Polychromasia SLIGHT = 2-3 cells (100X) (0-2/hpf); RBC Distribution Width 15.2 % (11.5-14.5); Red Blood Cell (RBC) Count 3.69 mill/uL (4.70-6.10); White Blood Cell (WBC) Count 12.3 thou/uL (4.8-10.8)
--- NOTE | 2020-01-29 08:18 | PDOC.FM ---
- Subjective Subjective: Patient doing well this morning. His blood pressures have remained normotensive during past 24 hours. Says he is wanting to get home soon. Discussed plan to continue titrating his home insulin and watching sugars. Also discussed awaiting final blood cultures and guidance on antibiotics. Patient in agreement with plan, all questions answered. - Objective MAR Reviewed: Yes Vital Signs & Weight: Vital Signs (12 hours) Temp 01/29/20 07:26 98.0 F 01/28/20 23:53 97.6 F Weight Weight 96.978 kg Most Recent Monitor Data Heart Rate from ECG 66 NIBP 128/84 NIBP BP-Mean 98 Respiration from ECG 23 SpO2 100 I&O: 01/28/20 01/29/20 01/30/20 06:59 06:59 06:59 Intake Total 3075 3022 Output Total 925 1925 Balance 2150 1097 Result Diagrams: 01/29/20 07:05 01/29/20 03:25 Phys Exam - Physical Examination Constitutional: NAD HEENT: moist MMs, sclera anicteric Neck: no JVD, supple, full ROM Respiratory: no wheezing, clear to auscultation bilateral Cardiovascular: RRR, no significant murmur Gastrointestinal: soft, no distention, positive bowel sounds Musculoskeletal: no edema, pulses present Neurological: non-focal, normal sensation, moves all 4 limbs Psychiatric: normal affect, A&O x 3 Dx/Plan (1) Adrenal insufficiency Code(s): E27.40 - UNSPECIFIED ADRENOCORTICAL INSUFFICIENCY Status: Acute (2) Bacteremia Code(s): R78.81 - BACTEREMIA Status: Acute (3) Hyperglycemia due to type 2 diabetes mellitus Code(s): E11.65 - TYPE 2 DIABETES MELLITUS WITH HYPERGLYCEMIA Status: Acute Qualifiers: Diabetes mellitus intermediate insulin use: with intermediate use Qualified Code( s): E11.65 - Type 2 diabetes mellitus with hyperglycemia; 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 He was on 60 mg prednisone and 0.1mg fludrocortisone - Will start SoluCortef 50mg QID and fludrocortisone 0.1mg po daily. - Admit to IMCU for close monitoring of BP, will transition to floor today - PT / OT / Palliative consulted #SIRS #Bacteremia, due to suspected MRSA - History of MDR UTI, patient has allergy to Vancomycin (Red Man Syndrome) -was treated in November 2018 for MRSA bacteremia with Daptomycin -given 1 dose of Rocephin (01/26) and Linezolid (01/27) -Consult ID-Dr. Nickerson, appreciate recs -await final blood culture results, if final viridans sp. is not pathogenic then plan to discontinue antibiotics -fever may be more related to missing anakinra dosing & Still's disease vs response to bacteremia - UA suggestive of UTI. Received cefepime in ED. Has been on Rocephin since 01/26 , last dose today - obtain ECHO to look for endocarditis/vegetations on valve as a potential source of infection - past admissions suggest patient has transient MRSA with unknown source #Anion gap metabolic acidosis, likely 2/2 DKA-improved - continue monitoring blood glucose #Adult Still's Disease - Suspect medication non-compliance - Will consult palliative care and case management for assistance -Palliative care team met with patient on 01/28, will plan to reach out to [facility] for potential at-home visits -patient resistant to stay in another facility, however admits to occasional medical non-compliance at home - Patient would benefit from placement to assist with medication compliance. Potential need for longer post-acute care stay such as LTAC or NH. #CARL - Cr 1.38 - Renally dose medications #DM2 - now off DKA protocol. Once off, will start home medications - Patient on admission with elevated anion gap at 15, beta hydroxybutyrate at 0.86, and bicarb 21 - Blood glucose 400s - home lantus dose of 30 units in AM, increased to 35 units on 01/26, increased to 43 units on 01/28 (per Treat to Target trial) - continue home Novolog 10 units with meals #HLD - Continue home zetia and lipitor #Combined CHF - No signs of fluid overload at this time - Will continue to monitor fluid status #BPH - Continue flomax Diet: CC HH DVT PPX: Xeralto Code Status: Full Dispo: Stable, admitted to inpatient in [facility] and will plan to transfer to medical today. Continue to monitor BP. Await final blood cultures today, depending on results will make decision on further antibiotic therapy. Anticipate discharge in <48 hours. Addendum - Attending - Attending Attestation Date/Time: 01/29/20 1140 I personally evaluated the patient and discussed the management with Dr. Gallardo. I agree with the History, Examination, Assessment and Plan documented above with any addition or exceptions noted below. Patient overall stable. BP improved as is glycemic control. Working to get him some outpatient assistance set up to prevent recurrent bouncebacks due to med noncompliance. Patient refuses placement. Per ID, does not need continued abx therapy for the organisms growing in blood culture.
[2020-01-29] MEDS: HumaLOG 300 UNITS/3 ML VIAL SC SCH ×3 (09:05→17:11)
[2020-01-29] MEDS: Atorvastatin Calcium 20 MG TAB PO SCH (09:06)
[2020-01-29] MEDS: Insulin Glargine 43 UNITS in Pre-Filled Syringe 1 EACH SC SCH (09:10)
[2020-01-29] MEDS: Hydrocortisone Sod Succ/PF 100 mg/2 ml Vial IVP SCH ×4 (09:11→20:47)
[2020-01-29] MEDS: Tamsulosin HCl 0.4 MG CAP PO SCH (09:11)
[2020-01-29] MEDS: Ezetimibe 10 MG TAB PO SCH (09:11)
[2020-01-29] MEDS: Famotidine 20 MG TAB PO SCH ×2 (09:11→20:47)
[2020-01-29] MEDS: Alogliptin 25 MG TAB PO SCH (09:11)
[2020-01-29] MEDS: Rivaroxaban 10 MG TAB PO SCH (09:11)
[2020-01-29] MEDS: Multivitamin W/ Minerals 1 TAB PO SCH (09:11)
[2020-01-29] MEDS: Clotrimazole 1 % Cream 30 GM TUBE TOP SCH (09:13)
[2020-01-29] MEDS: HumaLOG 300 UNITS/3 ML VIAL SC PRN ×3 (11:58→20:48)
[2020-01-29] MEDS: ANAKINRA 100 MG SCH (20:48)
[2020-01-30] MEDS: Lactated Ringer's 1,000 ML IV SCH (03:24)
[2020-01-30 06:58] LABS: Anion Gap 13 mmol/L (10-20); BUN (Urea Nitrogen) 15 mg/dL (8.4-25.7); Calc. Creatinine Clearance 154 mL/min (70-130); Calcium 7.7 mg/dL (7.8-10.44); Carbon Dioxide 21 mmol/L (22-29); Chloride 112 mmol/L (98-107); Estimated GFR-MDRD Greater than 90; Glucose 105 mg/dL (70-105); Potassium 3.8 mmol/L (3.5-5.1); Sodium 142 mmol/L (136-145)
--- NOTE | 2020-01-30 08:12 | PDOC.FM ---
- Subjective Subjective: Patient resting in bed this morning, he has no complaints. Discussion had again about management of care going forward. Patient continues to refuse placement at a facility, states he feels comfortable managing his medication at home with assistance from home health agency. He reports he plans to follow up with Dr. Melanie Boyce at [facility]. Importance of close follow up and keeping visits with outpatient clinic is emphasized. - Objective MAR Reviewed: Yes Vital Signs & Weight: Vital Signs (12 hours) Temp Pulse Resp BP Pulse Ox 01/30/20 07:26 99 01/30/20 07:18 97.8 F 58 L 16 126/78 99 01/30/20 04:00 98.7 F 80 18 138/78 94 L 01/30/20 00:00 97.6 F 75 18 125/72 100 Weight Weight 96.978 kg Most Recent Monitor Data Heart Rate from ECG 90 NIBP 114/68 NIBP BP-Mean 83 Respiration from ECG 18 SpO2 100 I&O: 01/29/20 01/30/20 01/31/20 06:59 06:59 06:59 Intake Total 3022 2780 Output Total 1925 3000 Balance 1097 -220 Result Diagrams: 01/29/20 07:05 01/30/20 06:25 Phys Exam - Physical Examination Constitutional: NAD HEENT: moist MMs, sclera anicteric Neck: no JVD, supple, full ROM Respiratory: no wheezing, clear to auscultation bilateral Cardiovascular: RRR, no significant murmur Gastrointestinal: soft, positive bowel sounds Musculoskeletal: no edema, pulses present Neurological: non-focal, normal sensation, moves all 4 limbs Psychiatric: normal affect, A&O x 3 Skin: no rash, normal turgor Dx/Plan (1) Adrenal insufficiency Code(s): E27.40 - UNSPECIFIED ADRENOCORTICAL INSUFFICIENCY Status: Acute (2) Bacteremia Code(s): R78.81 - BACTEREMIA Status: Acute (3) Hyperglycemia due to type 2 diabetes mellitus Code(s): E11.65 - TYPE 2 DIABETES MELLITUS WITH HYPERGLYCEMIA Status: Acute Qualifiers: Diabetes mellitus buttermaker helper insulin use: with senior living use Qualified Code( s): E11.65 - Type 2 diabetes mellitus with hyperglycemia; Z79.4 - jail ( current) use of insulin (4) SIRS (systemic inflammatory response syndrome) Code(s): R65.10 - SIRS OF NON-INFECTIOUS ORIGIN W/O ACUTE ORGAN DYSFUNCTION Status: Acute (5) UTI (urinary tract infection) Status: Acute Qualifiers: Urinary tract infection type: acute cystitis Hematuria presence: without hematuria Qualified Code(s): N30.00 - Acute cystitis without hematuria (6) 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 DISEASE Status: Chronic - Plan Plan: Patient is a 59 yo male with PMHx of Adult Still's Disease who presents after he was found down: #Adrenal insufficiency - Recently discharged from Rehab. He was on 60 mg prednisone and 0.1mg fludrocortisone - Will start SoluCortef 50mg QID and fludrocortisone 0.1mg po daily. - Initially admitted to IMCU for close monitoring of BP, transitioned to medical floor on 01/28 - PT / OT / Palliative consulted #SIRS #Bacteremia, due to suspected MRSA - History of MDR UTI, patient has allergy to Vancomycin (Red Man Syndrome) -was treated in November 2018 for MRSA bacteremia with Daptomycin -given 1 dose of Rocephin (01/26) and Linezolid (01/27) -Consult ID-Dr. Nickerson, appreciate recs -final blood culture results show nonpathogenic strep sp.--discontinued ABx on 01/28 -fever may be more related to missing anakinra dosing & Still's disease vs response to bacteremia - UA suggestive of UTI. Received cefepime in ED. Has been on Rocephin since 01/26 , last dose 01/28 - obtain ECHO to look for endocarditis/vegetations on valve as a potential source of infection--report pending - past admissions suggest patient has transient MRSA with unknown source #Anion gap metabolic acidosis, likely 2/2 DKA-improved - continue monitoring blood glucose #Adult Still's Disease - Suspect medication non-compliance - Will consult palliative care and case management for assistance -Palliative care team met with patient on 01/27- -[facility] unable to do at-home visits due to patient being on Medicare -patient resistant to stay in another facility, however admits to occasional medical non-compliance at home -states he would like to follow up with [facility], has seen Dr. Terrance Boyce there in the past - Patient would benefit from placement to assist with medication compliance. Potential need for longer post-acute care stay such as LTAC or NH. #CARL - Cr 1.38 - Renally dose medications #DM2 - now off DKA protocol. Once off, will start home medications - Patient on admission with elevated anion gap at 15, beta hydroxybutyrate at 0.86, and bicarb 21 - Blood glucose 400s on admission, now in low 200s - home lantus dose of 30 units in AM, increased to 35 units on 01/26, increased to 43 units on 01/28 (per Treat to Target trial) - continue home Novolog 10 units with meals #HLD - Continue home zetia and lipitor #Combined CHF - No signs of fluid overload at this time - Will continue to monitor fluid status #BPH - Continue flomax Diet: CC HH DVT PPX: Xeralto Code Status: Full Dispo: Stable, admitted to inpatient in medical floor. Continue to monitor BP. Final blood cultures results show contaminant, antibiotics discontinued. Anticipate discharge in next 24-48 hours. Addendum - Attending - Attending Attestation Date/Time: 01/30/20 9891 I personally evaluated the patient and discussed the management with Dr. Gallardo. I agree with the History, Examination, Assessment and Plan documented above with any addition or exceptions noted below. Patient stable and at baseline. He is medically stable for dishcharge. He continues to refuse placement senior living even though he admits he does not take his medications as he is supposed to, which contributes to each of his admissions to the hospital. He has been counselled extensively over the last few admissions on this, but he refuses to go anywhere but home. He will be discharged today.
[2020-01-30] MEDS: Atorvastatin Calcium 20 MG TAB PO SCH (08:25)
[2020-01-30] MEDS: Multivitamin W/ Minerals 1 TAB PO SCH (08:25)
[2020-01-30] MEDS: Ezetimibe 10 MG TAB PO SCH (08:25)
[2020-01-30] MEDS: Famotidine 20 MG TAB PO SCH (08:25)
[2020-01-30] MEDS: Tamsulosin HCl 0.4 MG CAP PO SCH (08:25)
[2020-01-30] MEDS: Alogliptin 25 MG TAB PO SCH (08:25)
[2020-01-30] MEDS: Rivaroxaban 10 MG TAB PO SCH (08:25)
[2020-01-30] MEDS: Hydrocortisone Sod Succ/PF 100 mg/2 ml Vial IVP SCH ×2 (08:26→12:32)
[2020-01-30] MEDS: HumaLOG 300 UNITS/3 ML VIAL SC SCH ×2 (08:26→11:41)
[2020-01-30] MEDS: Clotrimazole 1 % Cream 30 GM TUBE TOP SCH (08:26)
[2020-01-30] MEDS: Insulin Glargine 43 UNITS in Pre-Filled Syringe 1 EACH SC SCH (11:41)
[2020-01-30 15:42] VITALS: BP 139/77; TEMP 98
[2020-01-30] MEDS: HumaLOG 300 UNITS/3 ML VIAL SC PRN (15:49)
--- NOTE | 2020-01-30 20:17 | DIS ---
DATE OF ADMISSION: 01/27/2020 DATE OF DISCHARGE: 01/30/2020 PRIMARY CARE PHYSICIAN: Dr. Xavi Boyce. RESIDENT: Khushi Gallardo DO ADMITTING ATTENDING: Ashley Wolfe MD DISCHARGE ATTENDING: Paul Hall MD CONSULTS: 1. Infectious Disease, Rehan Nickerson MD. 2. Palliative Care, DIANE Jeong. PROCEDURES: 1. Chest x-ray on January 27, 2020: Mild cardiomegaly. Vascular and interstitial markings are normal. No focal infiltrate and no evidence of significant effusion. 2. Chest x-ray on January 28, 2020: No significant interval change. PRIMARY DIAGNOSES: 1. Adrenal insufficiency. 2. Anion gap metabolic acidosis, likely secondary to diabetic ketoacidosis versus dehydration. SECONDARY DIAGNOSES: 1. Systemic inflammatory response syndrome criteria met. 2. Bacteremia, ruled out methicillin-resistant Staphylococcus aureus by blood culture. Blood cultures positive only for contaminant species. 3. Adult Still's disease. 4. Acute kidney injury. 5. Type 2 diabetes. 6. Hyperlipidemia. 7. Combined systolic and diastolic congestive heart failure. 8. Benign prostatic hyperplasia. DISCHARGE MEDICATIONS: 1. Lantus 43 units subcu q.a.m. 2. Prednisone 60 mg p.o. daily. 3. Glucagon 1 mg IM p.r.n. 4. Fludrocortisone acetate 0.1 mg p.o. daily. 5. Alogliptin 25 mg p.o. daily. 6. Clotrimazole 1% cream 1 g topical daily. 7. NovoLog 10 units subcu before meals. 8. Tramadol 100 mg p.o. q.6 hours p.r.n. 9. Acetaminophen 500 mg p.o. q.4 hours p.r.n. 10. Tamsulosin/HCL 0.4 mg p.o. q.a.m. 11. Xarelto 20 mg p.o. q.a.m. 12. Multivitamin 1 tablet p.o. daily. 13. Famotidine 20 mg p.o. daily. 14. Ezetimibe 10 mg p.o. q.a.m. 15. Anakinra 100 mg subcu q.p.m. 16. Atorvastatin 40 mg p.o. q.a.m. DISCONTINUED MEDICATION: Lantus 35 units subcu q.a.m. HISTORY OF PRESENT ILLNESS/HOSPITAL COURSE: The patient is a 59-year-old male, who presented to [facility] Emergency Department on January 27, 2020, after he was found down by family. Family told the ER provider that the patient was recently released from a rehab facility. Earlier in the day, he was found down, unresponsive, at his home. Initial blood pressure in the Emergency Department was 67/36. He received a 500 mL bolus of normal saline en route to the Emergency Department by EMS. He received an additional 3 L normal saline, Tylenol, cefepime, and dexamethasone while in the Emergency Department. The patient was admitted to inpatient in the [facility] unit for adrenal insufficiency. Per family, he had missed his steroid doses for the last two or three days. Additionally, he had skipped the last 2 to 3 days of his anakinra medication. The patient's blood pressures were responsive to the interventions mentioned above. He was started on Solu-Cortef 50 mg q.i.d. and fludrocortisone 0.1 mg p.o. daily. Additionally, the patient had DKA protocol, put into place due to elevated sugar initially 429. Additionally lab work was suggestive of an anion gap metabolic acidosis. The patient's home Lantus of 30 units was restarted. Throughout the duration of his stay, this was eventually titrated up to 43 units Lantus in the morning with better control of his blood sugars. On January 28, the patient was able to be transferred out of the [facility] to the medical floor. Of note, during the patient's stay, he did initially have blood cultures that were positive for strep and staph. The patient has a history of multidrug resistant UTI. Based off past cultures, he was started on antibiotics Linezolid (due to reported vancomycin allergy) and Rocephin. These were later discontinued after blood cultures finally resulted for contaminant only. Additionally, during the patient's stay, Palliative Care and Case Management were consulted for assistance. The patient has had several hospital admissions in the past 2 to 3 months due to suspected medication noncompliance. Palliative worked with the patient and his home health care company to ensure that the patient receives frequent visits throughout the week. They also worked to establish him a PCP at [facility] for the near future. The patient will need very close followup in the outpatient setting to help prevent readmission. The patient was offered on multiple occasions and counseled that he would ideally need to be placed at a longer post-acute care setting such as LTAC or shelter. The patient adamantly refused these attempts and stated that he was comfortable managing his care at home as well as his own medications. On the afternoon of January 30, 2020, the patient was deemed stable for discharge back to home. DISPOSITION: Stable. DISCHARGE INSTRUCTIONS: 1. Location: Home. 2. Diet: Heart healthy. 3. Activity: As tolerated. 4. Follow up with PCP, Dr. Xavi Boyce at [facility] in 2 to 3 days. 5. Follow up with Dr. Nickerson as needed. 6. Follow up with [facility] tomorrow. Job ID: [id number]
== END 2020-01-30 16:11 | disposition home or self-care (01) | DRG 643 ==
LOC: ERS 00:56 → IMCU/EMU 02:22 → T4-B 01-29 13:00
PROVIDERS: ADMIT Family Medicine; ATTEND Family Medicine
DX: E27.40 Unspecified adrenocortical insufficiency (principal); E11.10 Type 2 diabetes mellitus with ketoacidosis without coma; N17.9 Acute kidney failure, unspecified; R65.10 Systemic inflammatory response syndrome (SIRS) of non-infectious origin without acute organ dysfunction; N30.00 Acute cystitis without hematuria; I50.42 Chronic combined systolic (congestive) and diastolic (congestive) heart failure; E27.2 Addisonian crisis; M06.1 Adult-onset Still's disease; E78.5 Hyperlipidemia, unspecified; N40.0 Benign prostatic hyperplasia without lower urinary tract symptoms; M06.9 Rheumatoid arthritis, unspecified; E86.0 Dehydration; I11.0 Hypertensive heart disease with heart failure; Z86.718 Personal history of other venous thrombosis and embolism; Z91.19 Patient's noncompliance with other medical treatment and regimen; Z79.01 Long term (current) use of anticoagulants; Z98.1 Arthrodesis status; Z88.1 Allergy status to other antibiotic agents; Z79.4 Long term (current) use of insulin; Z90.49 Acquired absence of other specified parts of digestive tract
CPT/HCPCS: 36415; 36416; 36600; 71045; 80048; 80053; 81001; 82010; 82553; 83605; 83735; 83880; 84100; 84145; 84484; 85025; 87040; 87086; 87149; 93005; 93306; 96361; 96365; 96374; J0692; J0696; J1100; J1720; J1815; J2020; J3480; J3490

== ENCOUNTER 2020-02-25 15:02 | Inpatient (IN) | payer MEDICARE ==
[2020-02-25 15:26] LABS: Base Excess-Venous -6.2 mmol/L (-2.0 to 3.0); Bicarbonate (HCO3v) 17.8 mmol/L (22.0-28.0); CO2 Tension (PvCO2) 30.8 mmHg (40.0-50.0); Calcium, Ionized 1.07 mmol/L (See Comments:); Chloride 107 mmol/L (98-107); Hemoglobin - Calc 15.5 g/dL (14.0-18.0); Potassium 6.1 mmol/L (3.5-5.1); Sodium 141 mmol/L (138-145); T. Carbon Dioxide 18.8 mmol/L (22.0-28.0)
--- NOTE | 2020-02-25 15:40 | RAD ---
Chest one view HISTORY: Dyspnea. Altered mental status. COMPARISON: 02/06/2020. FINDINGS: Cardiac silhouette is magnified by projection. Pulmonary vasculature is unremarkable. Mediastinum is midline. No lobar consolidation or evidence of pneumothorax. Left shoulder prosthesis and degenerative patient changes right shoulder again demonstrated. monitoring analyst leads overlie the chest. IMPRESSION : Chronic-type findings are stable. No active cardiopulmonary abnormalities are demonstrated.
[2020-02-25] MEDS ORDERED: Norepinephrine 8 MG/0.9% NS 250 ML ONE (15:47)
[2020-02-25 15:49] LABS: Hemoglobin 14.9 g/dL (14.0-18.0); Mean Corpuscular HGB CONC 30.8 g/dL (32.0-36.0); Mean Corpuscular Hemoglobin 28.8 pg (27.0-31.0); Mean Corpuscular Volume 93.7 fL (78.0-98.0); Mean Platelet Volume 9.6 fL (7.4-10.4); Platelet Count 122 thou/uL (130-400); RBC Distribution Width 17.5 % (11.5-14.5); Red Blood Cell (RBC) Count 5.16 mill/uL (4.70-6.10); White Blood Cell (WBC) Count 20.3 thou/uL (4.8-10.8)
[2020-02-25 15:57] LABS: Anisocytosis SLIGHT = 6-15 cells (100X) (0-5/hpf); Band 34 % (5-11); Hypochromia SLIGHT = 6-15 cells (100X) (0-5/hpf); Lymphocytes 5 % (21-51); MDiff Complete? YES; Monocytes 10 % (0-10); Neutrophil 42 % (42-75); Nucleated RBC 1 % (0); Platelet Morphology Comment Appears Decreased; Polychromasia MODERATE = 3-4 cells (100X) (0-2/hpf); Reactive Lymphocytes 9 % (0-10)
[2020-02-25 16:18] LABS: CKMB 17.3 ng/mL (0-6.6)
[2020-02-25] MEDS ORDERED: HUMULIN R 100 UNITS in Sodium Chloride 0.9% 100 ML IVPB SCH ×2 (16:30→20:00)
[2020-02-25 16:46] LABS: ALT (SGPT) 87 U/L (8-55); AST (SGOT) 167 U/L (5-34); Albumin 2.5 g/dL (3.5-5.0); Alkaline Phosphatase 105 U/L (40-110); Anion Gap 19 mmol/L (10-20); BUN (Urea Nitrogen) 25 mg/dL (8.4-25.7); Bilirubin, Total 0.6 mg/dL (0.2-1.2); Calc. Creatinine Clearance 0 mL/min (70-130); Carbon Dioxide 16 mmol/L (22-29); Chloride 114 mmol/L (98-107); Estimated GFR-MDRD 23; Globulin 1.8 g/dL (2.4-3.5); Glucose 508 mg/dL (70-105); Lipase 40 U/L (8-78); Magnesium 1.4 mg/dL (1.6-2.6); Potassium 3.6 mmol/L (3.5-5.1); Protein, Total 4.3 g/dL (6.0-8.3); Sodium 145 mmol/L (136-145)
[2020-02-25] MEDS ORDERED: NS 0.9% w/ 40 MEQ KCL 1,000 ML IV SCH (17:00)
[2020-02-25 17:04] LABS: Bilirubin Negative (Negative); Blood, Urine 2+ (Negative); Clarity Clear (Clear); Glucose, Urine (Dipstick) Greater than 1000 mg/dL (Negative); Ketone, Urine Negative (Negative); Leukocyte 500 Leu/uL (Negative); Nitrite Negative (Negative); Protein, Urine (Dipstick) 50 mg/dL (Neg-Trace); Squamous Epithelial 0-3 HPF (0-3); Urobilinogen Normal mg/dL (Less than 2); WBC/HPF Greater than 50 HPF (0-3); pH, Urine 7.5 (5.0-9.0)
[2020-02-25 17:09] LABS: Bacteria/HPF 1+ HPF (None Seen)
--- NOTE | 2020-02-25 17:27 | CT ---
CT OF THE ABDOMEN AND PELVIS WITHOUT IV CONTRAST INDICATION: Bloody diarrhea COMPARISON: CT the abdomen and pelvis with contrast dated July 06, 2019 FINDINGS: The lack of IV contrast limits evaluation of the solid organs of the abdomen and pelvis. ABDOMEN: Lung bases: Bibasilar atelectasis Liver: No focal lesion. Gallbladder: Surgically absent Pancreas: Normal. Adrenal glands: Normal. Spleen: Normal. Kidneys and ureters: There is bilateral nephrolithiasis. The largest stone within the left kidney see n within superior pole measured 2.8 mm. The largest stone within the right kidney is seen within the lower pole measuring 2.6 mm. There is stable bilateral renal cysts. Vasculature: There are moderate vascular calcifications seen involving the visualized vasculature. Lymph nodes:No lymphadenopathy. Free fluid in abdomen:No free fluid is evident. PELVIS: Small and large bowel: There is wall thickening with pericolonic inflammatory stranding involving the sigmoid colon suspicious for diverticulitis. No drainable fluid collection is evident. Small bowel appears to have a normal caliber. Appendix:Normal Bladder: Decompressed with a Napier catheter Rectal and perirectal soft tissues:Normal. Reproductive structures: Normal. Free fluid in pelvis: No free fluid is evident. Lymphadenopathy pelvis: No lymphadenopathy is evident. Osseous structures: No acute osseous abnormality. No destructive osteolytic or osteoblastic lesion i s identified. There is scattered degenerative and osteoarthritic changes. Soft tissues:There is a right common femoral central venous catheter projecting up to the right iliac vein. IMPRESSION: 1. Noncomplicated sigmoid diverticulitis. 2. Bilateral renal cysts and bilateral nephrolithiasis 3. Right common femoral central venous catheter 4. Napier catheter
--- NOTE | 2020-02-25 19:07 | PDOC.FPRHP ---
- History of Present Illness Chief Complaint: AMS History of Present Illness: 59 y/o black male with PMHx including adrenal insufficiency, DM, incontinence presented to ED via EMS from home for altered mental status. Per report, home health nurse visited today discovering pt in AMS with diarrhea. Upon admission he responds to his name, but is unable to give further history due to AMS. Denies pain although appears uncomfortable. Per nursing in ED, he has had additional bloody BM since arrival. ED Course: Received total 5L NS for fluid resuscitation. Started on levophed, insulin drip with KCl, zosyn, hydrocortisone. Central line R groin. Dobbins placed. - Allergies/Adverse Reactions Allergies Allergy/AdvReac Type Severity Reaction Status Date / Time vancomycin Allergy Intermediate Verified 01/07/20 20:03 - Home Medications Medication Instructions Recorded Confirmed Type Atorvastatin Calcium [Lipitor] 40 mg PO QAM 10/18/15 01/27/20 History Anakinra [Kineret] 100 mg SQ QPM 09/01/18 01/27/20 History Ezetimibe [Zetia] 10 mg PO QAM tab 01/03/19 01/27/20 Rx Famotidine [Pepcid] 20 mg PO DAILY tab 01/03/19 01/27/20 Rx Multivitamin W/ Minerals 1 tab PO DAILY tab 01/03/19 01/27/20 Rx [Theragran M] Rivaroxaban [Xarelto] 20 mg PO QAM-WM tab 01/03/19 01/27/20 Rx Tamsulosin HCl [Flomax] 0.4 mg PO QAM cap 01/03/19 01/27/20 Rx Acetaminophen [Tylenol Extra 500 mg PO Q4H PRN 02/03/19 01/27/20 History Strength] traMADol HCl [Tramadol HCl] 100 mg PO Q6H PRN 05/30/19 01/27/20 History Insulin Aspart [Novolog Flexpen] 10 unit SQ AC 12/23/19 01/27/20 History Clotrimazole [Lotrimin 1% Cream] 1 gm TOP DAILY #1 tube 12/25/19 01/27/20 Rx Alogliptin 25 mg PO DAILY tab 01/10/20 01/27/20 Rx Fludrocortisone Acetate [Florinef] 0.1 mg PO DAILY #0 tab 01/10/20 01/27/20 Rx Glucagon 1 mg IM PRN PRN vial 01/10/20 01/27/20 Rx predniSONE 60 mg PO 1200 tab 01/10/20 01/27/20 Rx Insulin Glargine [Lantus Vial] 43 units SC QAM #5 vial 01/30/20 Rx - History PMHx: Adult Still's disease, adrenal insufficiency, Type II DM, Hyperlipidemia, BPH, combined systolic and diastolic HF PSHx: cholecystectomy, L shoulder, R shoulder, L knee, cervical fusion FHx: unable to assess due to AMS Social: unable to assess due to AMS - Review of Systems ROS unobtainable: due to mental status - Vital signs BP: [92/77] HR: [117] RR: [27] Tmax: [98.2] Pox: [98]% on [RA] Wt: [64kg] - Physical Exam Constitutional: other (Responds to name. Not oriented to location, time, or situation. Appears to be in moderate distress.) HEENT: PERRLA, other (dry mucous membranes) Heart: no murmurs/rubs/gallops, other (Tachycardic. Regular rhythm. 2+ pitting edema RLE to mid-corea. 1+ pitting edema LLE to mid-corea.) Lungs: no rales/rhonchi, no wheezing, other (decreased breath sounds bilaterally ) Abdomen: soft, other (mild diffuse tenderness to palpation) Neurological: other (GCS 11. Unable to cooperate with physical exam due to AMS.) Skin: other (multiple ulcerations of groin, scrotum, and sacrum, grade 2-3) FMR H&P: Results - Labs Result Diagrams: 02/26/20 04:30 02/26/20 04:30 Lab results: WBC 20.3 thou/uL (4.8-10.8) H 02/25/20 15:19 Hgb 14.9 g/dL (14.0-18.0) 02/25/20 15:19 Hct 48.3 % (42.0-52.0) 02/25/20 15:19 MCV 93.7 fL (78.0-98.0) 02/25/20 15:19 Plt Count 122 thou/uL (130-400) L 07/06/20 15:19 Band Neuts % (Manual) 34 % (5-11) H 02/25/20 15:19 VBG pCO2 30.8 mmHg (40.0-50.0) L 02/25/20 15:21 VBG pO2 37.7 mmHg (35.0-45.0) 02/25/20 15:21 Sodium 145 mmol/L (136-145) 02/25/20 16:15 Potassium 3.6 mmol/L (3.5-5.1) 02/25/20 16:15 Chloride 114 mmol/L (98-107) H 02/25/20 16:15 Carbon Dioxide 16 mmol/L (22-29) L 02/25/20 16:15 BUN 25 mg/dL (8.4-25.7) 02/25/20 16:15 Creatinine 3.37 mg/dL (0.7-1.3) H 02/25/20 16:15 Glucose 508 mg/dL (70-105) H 02/25/20 16:15 Lactic Acid 8.3 mmol/L (0.5-2.2) H* 02/25/20 16:15 Calcium 7.0 mg/dL (7.8-10.44) L 02/25/20 16:15 Total Bilirubin 0.6 mg/dL (0.2-1.2) 02/25/20 16:15 AST 167 U/L (5-34) H 02/25/20 16:15 ALT 87 U/L (8-55) H 02/25/20 16:15 Alkaline Phosphatase 105 U/L (40-110) 02/25/20 16:15 CK-MB (CK-2) 17.3 ng/mL (0-6.6) H* 02/25/20 15:19 Serum Total Protein 4.3 g/dL (6.0-8.3) L 02/25/20 16:15 Albumin 2.5 g/dL (3.5-5.0) L 02/25/20 16:15 Lipase 40 U/L (8-78) 02/25/20 16:15 Urine Ketones Negative mg/dL (Negative) 02/25/20 16:38 Urine Blood 2+ (Negative) A 02/25/20 16:38 Urine Nitrite Negative (Negative) 02/25/20 16:38 Ur Leukocyte Esterase 500 David/uL (Negative) A 02/25/20 16:38 Urine RBC 11-20 HPF (0-3) A 02/25/20 16:38 Urine WBC Greater than 50 HPF (0-3) A 02/25/20 16:38 Ur Squamous Epith Cells 0-3 HPF (0-3) 02/25/20 16:38 Urine Bacteria 1+ HPF (None Seen) A 02/25/20 16:38 FMR H&P: A/P - Plan 59 y/o black male with PMHx adrenal insufficiency, DM brought to ED for AMS and found to be in septic shock with NSTEMI, diverticulitis, UTI, and DKA. Septic Shock Likely 2/2 diverticulitis, UTI in setting of adrenal insufficiency. Hypotensive requiring pressors, WBC 20. Received 5L fluid resuscitation, zosyn, levophed in the ED. -Continue zosyn 3.375mg IV q6h, renally adjusted dose for high risk intra- abdominal infection and should treat common urinary pathogens as well. -Continue pressors as needed, wean as tolerated -F/u blood cx, urine cx with gram stain -IVF per DKA protocol Adrenal insufficiency Will need stress dosing, close electrolyte monitoring. Unclear compliance with home medications. -Stress dose hydrocortisone 100mg IM q12 hours -BMP q4hr, monitor electrolytes especially K closely and replete as needed DKA Glucose greater than 500, elevated B hydroxybutyrate, corrected anion gap of 18 on admission. -Insulin and K per DKA protocol -BMP q4hr per DKA protocol -Accuchecks per DKA protocol -F/u ABG NSTEMI Initial troponin 2.293, stable at this level x3 checks. Initial EKG sinus tachycardia with T wave inversions in III and aVF. Unable to assess symptoms due to AMS. -Consulted cardiology, recommended ASA tonight and call back in AM. Did not administer lovenox due to blood in diarrhea. -Unable to take PO ASA due to AMS, will attempt [place] ASA pending diarrhea. -Atorvastatin 40mg included in home meds, not given today due to NPO. Altered Mental Status Likely secondary to infection, septic shock. Per report, A&O x4 at baseline. -Continue to monitor, reorient as needed. UTI UA on admission with +glucose, +WBCs, +RBCs, 1+ bacteria. Questionable history of MDR organism in past, although ultimately attributed to contamination. -Dobbins catheter placed -Abx: zosyn as above, will de-escalate pending gram stain of urine -F/u urine culture with gram stain Diverticulitis Diarrhea onset today, WBC 20, CT abdomen suggestive of diverticulitis. Some blood in diarrhea, although has changed to watery diarrhea. -f/u c diff assay -contact isolation -NPO status Lactic Acidosis Lactate 8 on admission with elevated anion gap, likely 2/2 septic shock. -Continue to monitor anion gap Leukocytosis Likely secondary to infection. -Continue to monitor with daily AM CBC CARL Likely secondary to hypotension, septic shock. Cr 3.37, CrCl 21. Baseline GFR is >90. -Renal dose adjustment of zosyn -Continue to monitor with AM labs Hypokalemia K 3.5 on admission. Will need to be monitored closely due to insulin therapy and hydrocortisone administration. -Replete K per DKA protocol -Continue to monitor with q4hr BMP Hypomagnesemia 1.4 on admission. Repleted with 1g IV Mg. -F/u Mg level in AM Transaminitis Likely due to hypotension, septic shock. -Tx of septic shock as above -Continue to monitor with AM labs Hyperchloremia Likely due to diarrhea, large amount of NS administered. -Continue to monitor -IVF per DKA protocol Pressure Ulcers Multiple ulcers in groin, sacral area. -Consult to wound care Adult Stills Disease Unclear compliance with home medication; non-compliance has affected mental status in the past. -Family member, Cathy Hinds, to bring home Anakinra in AM. Not available in hospital. Combined CHF Last echo 01/28/2020 with EF 60-65% and grade 1 diastolic dysfunction. -Monitor for symptoms of volume overload BPH Home meds include tamsulosin. Not given today due to NPO status. Social considerations: MPOA is daughter, Akilah Nunez ([phone]) who lives in [place]. Pt lives with aunt, Cathy Hinds ([phone]), who is also body mechanic apprentice for another family member. Consulted case management for placement. Diet: NPO IVF: per DKA protocol PPx: SCDs, Pepcid IV Code: Full PCP: Melanie Boyce Attending: Maikel Dispo: Admitted to CCU, expected stay >2 nights. Will likely need rehab upon discharge if agreeable. FMR H&P: Upper Level - Plan Date/Time: 02/25/201906 IDang, have evaluated this patient and agree with findings/plan as outlined by design engineering intern resident. Pertinent changes/additions are listed here. 59 yo M with PMH Stills disease on immunosuppression, IDDM2, adrenal insufficiency presented to ED with AMS and loose bloody stool and is admitted to ICU for septic shock, diverticulitis, UTI, DKA, NSTEMI. Limited history available. Did not respond to initial fluid resuscitation, fem line placed in ED and on levaphed. Started on DKA protocol. ROS unable to obtain due to mental status PE: Responds and opens eyes to name. Does not answer questions appropriately, responds to painful stimuli. HEENT: PERRL, mucous membranes extremely dry, cracked lipped Heart: sinus tachycardia, no murmur Lungs: anteriorly CTAB, limited exam Ab: soft, grunts with palpation in all quadrants Ext: BLE with 2-3+ pitting edema, R>L. Shallow ulcers on scrotum PMH reviewed Septic Shock 2/2 diverticulitis, UTI - in setting of adrenal insufficiency. Presented with hypotension, tachycardia, WBC 20, RR 25. Lactic acid 8. - ED gave zosyn, 5L NS, levaphed, insulin gtt -Continue zosyn (02/25) to cover for diverticulitis as well as gram negative UTIs. He does have history of UTIs in past though recent Ucx have been negative. On review. Has had MDR ecoli, klebsiella. One urine culture with MRSA 6 mo ago. Will get stat gram stain and broaden abx coverage if needed. -On levaphed with MAP >65 now -pending Bcx, Ucx with gram stain, procalcitonin -IVF per DKA protocol, monitor strict I/Os DKA in IDDM2 - BG > 500, B hydroxybutyrate 0.8, initial anion gap corrected for albumin 18.8 , metabolic acidosis -DKA protocol -monitor K+ closely and replace as needed, currently 3.6, below goal. 40meq started with protocol now. -BMP q4hr UTI -UA +glucose, +WBCs, +RBCs, 1+ bacteria, +LE, neg nitrite . -pending gram stain and Ucx, abx as above Sigmoid Diverticulitis - Diarrhea onset today, blood in stool in ED, stools progressively less formed - CT abdomen suggestive of diverticulitis -c diff pending, nursing requested rectal tube NSTEMI - trop 2.293, continue to trend. EKG sinus tachycardia with T wave inversions in III and aVF -Discussed with cardiology, recommended ASA tonight and call back in AM. Anticoagulation not started considering bloody diarrhea. -Unable to take PO ASA due to mental status, DE ASA not given d/t diarrhea. Altered Mental Status 2/2 above -GCS 11 on admission, continue to monitor Adrenal insufficiency -Stress dose hydrocortisone 100mg given, continue 50mg q6h for now -transition back to home dosing when appropriate Bilateral renal cysts and nephrolithiasis - 2.8 and 2.6mm Leukocytosis with bandemia -Continue to trend Thrombocytopenia - continue to trend Metabolic acidosis - with compensative respiratory alkalosis Hypoalbuminemia - likely 2/2 poor PO intake CARL - Cr 3.37, CrCl 21 on admission. Baseline GFR >90. 2/2 septic shock -Renal dose of abx, avoid nephrotoxic meds -Continue to monitor with AM labs Hypomagnesemia - 1.4 on admission. s/p 1g IV Mg. -recheck in am Elevated liver enzymes - 2/2 septic shock. -Continue to monitor with AM labs Hyperchloremia - in setting of loss 2/2 diarrhea, large amount of NS Pressure Ulcers - Multiple ulcers in groin, sacral area. -Consult wound care Adult Stills Disease -Family to bring home Anakinra in AM. Not available in hospital. Diet: NPO 2/2 mental status IVF: per DKA protocol PPx: SCDs, Pepcid IV Code: Full PCP: [facility] Attending: Maikel Lines: dobbins, rectal tube, 2 peripheral IVs, fem central line Dispo: Admitted to CCU, expected stay >2 nights. Guarded condition. Patient has frequent admissions with refusal of placement though he would benefit from this. Presentations often 2/2 medication noncompliance, lack of care. Will need to continue this conversation pending clinical improvement. Addendum - Attending - Attending Attestation Date/Time: 02/26/20 2821 I personally evaluated the patient and discussed the management with Dr. Schmitt. I agree with the History, Examination, Assessment and Plan documented above with any addition or exceptions noted below. See separate note.
[2020-02-25 19:10] LABS: Critical Call Chem Troponin I RESULT DECREASING; Troponin I 2.073 ng/mL (< 0.028)
[2020-02-25 19:28] LABS: Lactic Acid 8.2 mmol/L (0.5-2.2)
--- NOTE | 2020-02-25 19:48 | PDOC.BPN ---
- Brief Progress Note Date/Time: 02/25/201941 I personally evaluated the patient and discussed the management with Dr. Schmitt and Igor. H&P pending. I agree with the History, Examination, Assessment and Plan as discussed. Septic Shock due to diverticulitis and possible UTI. Empiric antibx ordered along with blood cultures, and urine cultures and gram stain. IV fluids given adn continued. levophed initiated in ER. CVC placed in ER. DKA protocol initiated. Admission to ICU. Stress dose steroids in the context of known adrenal insufficiency. NSTEMI due to hypotension with poor cardiac perfusion. Lovenox and ASA therapy complicated by lower GI bleeding, probably due to diverticulitis. Will discuss with Cardiology. Patient is responsive to verbal communication but is confused at times. He is not speaking in sentences. We will reach out to his surogate decision maker which I believe is his mother based on our chart review. He nodded his head when I told him we would call his mother.
[2020-02-25] MEDS ORDERED: Dextrose 5 %-0.45 % NaCl 1,000 ML IV PRN (19:51)
[2020-02-25] MEDS ORDERED: Electrolyte Replacement Protoc 1 EACH EACH IVPB ONE (19:51)
[2020-02-25] MEDS ORDERED: NS 0.9% w/ 20 MEQ KCL 1,000 ML IV PRN ×2 (19:51)
[2020-02-25] MEDS ORDERED: Sodium Chloride 0.9% 1,000 ML IV PRN ×4 (19:51)
[2020-02-25] MEDS ORDERED: Hydrocortisone Sod Succ/PF 100 mg/2 ml Vial ONE (19:52)
[2020-02-25] MEDS ORDERED: Electrolyte Replacement Protocol FS PRN (20:00)
[2020-02-25] MEDS ORDERED: Piperacillin/Tazobactam 3.375 GM in Sodium Chloride 0.9% 100 ML IVPB SCH (20:30)
[2020-02-25] MEDS ORDERED: Aspirin 300 MG Suppository PR SCH (20:30)
[2020-02-25 20:49] LABS: Anion Gap 19 mmol/L (10-20); BUN (Urea Nitrogen) 27 mg/dL (8.4-25.7); Calc. Creatinine Clearance 0 mL/min (70-130); Calcium 8.1 mg/dL (7.8-10.44); Carbon Dioxide 17 mmol/L (22-29); Chloride 116 mmol/L (98-107); Estimated GFR-MDRD 24; Glucose 246 mg/dL (70-105); Magnesium 1.5 mg/dL (1.6-2.6); Phosphorus 3.1 mg/dL (2.3-4.7); Potassium 3.6 mmol/L (3.5-5.1); Sodium 148 mmol/L (136-145)
[2020-02-25 21:09] LABS: Troponin I 2.141 ng/mL (< 0.028)
[2020-02-25 21:26] VITALS: BMI 26.1
[2020-02-25] MEDS: Famotidine/PF 20 mg/2ml Vial SLOW IVP SCH (21:46)
[2020-02-25] MEDS: Piperacillin/Tazobactam 3.375 GM in Sodium Chloride 0.9% 100 ML IVPB SCH (22:58)
[2020-02-25] MEDS: D5 1/2 NS w/20 mEq KCL 1,000 ML IV PRN (23:25)
[2020-02-26 00:51] LABS: Anion Gap 17 mmol/L (10-20); BUN (Urea Nitrogen) 26 mg/dL (8.4-25.7); Calc. Creatinine Clearance 32 mL/min (70-130); Calcium 8.4 mg/dL (7.8-10.44); Carbon Dioxide 18 mmol/L (22-29); Chloride 122 mmol/L (98-107); Estimated GFR-MDRD 31; Glucose 124 mg/dL (70-105); Potassium 4.2 mmol/L (3.5-5.1); Sodium 153 mmol/L (136-145)
[2020-02-26] MEDS ORDERED: Norepinephrine 8 MG/0.9% NS 250 ML IVPB SCH (02:40)
[2020-02-26] MEDS: Hydrocortisone Sod Succ/PF 100 mg/2 ml Vial IVP SCH ×4 (02:51→21:03)
[2020-02-26] MEDS: D5 1/2 NS w/20 mEq KCL 1,000 ML IV PRN ×3 (04:13→12:03)
[2020-02-26] MEDS: Piperacillin/Tazobactam 3.375 GM in Sodium Chloride 0.9% 100 ML IVPB SCH ×3 (04:13→18:28)
[2020-02-26 05:15] LABS: Anion Gap 17 mmol/L (10-20); BUN (Urea Nitrogen) 25 mg/dL (8.4-25.7); Calc. Creatinine Clearance 34 mL/min (70-130); Calcium 8.4 mg/dL (7.8-10.44); Carbon Dioxide 19 mmol/L (22-29); Chloride 121 mmol/L (98-107); Estimated GFR-MDRD 34; Glucose 310 mg/dL (70-105); Magnesium 1.8 mg/dL (1.6-2.6); Potassium 4.5 mmol/L (3.5-5.1); Sodium 152 mmol/L (136-145)
[2020-02-26 05:21] LABS: ALT (SGPT) 156 U/L (8-55); AST (SGOT) 216 U/L (5-34); Albumin 2.9 g/dL (3.5-5.0); Alkaline Phosphatase 127 U/L (40-110); Anion Gap 16 mmol/L (10-20); BUN (Urea Nitrogen) 25 mg/dL (8.4-25.7); Calc. Creatinine Clearance 33 mL/min (70-130); Calcium 8.3 mg/dL (7.8-10.44); Carbon Dioxide 20 mmol/L (22-29); Chloride 120 mmol/L (98-107); Estimated GFR-MDRD 33; Globulin 2.7 g/dL (2.4-3.5); Glucose 321 mg/dL (70-105); Potassium 4.5 mmol/L (3.5-5.1); Protein, Total 5.6 g/dL (6.0-8.3); Sodium 151 mmol/L (136-145)
--- NOTE | 2020-02-26 06:03 | PDOC.FM ---
- Subjective Subjective: Patient more alert this morning but still very tired. Falls asleep while answering questions. Denies being in any pain. - Objective MAR Reviewed: Yes Vital Signs & Weight: Vital Signs (12 hours) Pulse Ox 02/25/20 21:10 100 Weight Weight 73.4 kg Most Recent Monitor Data Heart Rate from ECG 107 NIBP 124/72 NIBP BP-Mean 89 Respiration from ECG 28 SpO2 100 I&O: 02/24/20 02/25/20 02/26/20 06:59 06:59 06:59 Intake Total 2300 Output Total 5000 Balance -2700 Result Diagrams: 02/26/20 04:30 02/26/20 04:30 Phys Exam - Physical Examination Constitutional: NAD HEENT: moist MMs, sclera anicteric Neck: no JVD, supple Respiratory: no wheezing, clear to auscultation bilateral Cardiovascular: RRR, no significant murmur Gastrointestinal: soft, positive bowel sounds Musculoskeletal: no edema, pulses present Neurological: moves all 4 limbs Psychiatric: normal affect Skin: no rash Dx/Plan (1) Sigmoid diverticulitis Code(s): K57.32 - DVTRCLI OF LG INT W/O PERFORATION OR ABSCESS W/O BLEEDING Status: Acute (2) NSTEMI (non-ST elevated myocardial infarction) Code(s): I21.4 - NON-ST ELEVATION (NSTEMI) MYOCARDIAL INFARCTION Status: Acute (3) Ketoacidosis due to diabetes mellitus Code(s): E11.10 - TYPE 2 DIABETES MELLITUS WITH KETOACIDOSIS WITHOUT COMA Status: Acute Qualifiers: Diabetes mellitus type: type 2 Diabetes mellitus complication detail: without coma Qualified Code(s): E11.10 - Type 2 diabetes mellitus with ketoacidosis without coma (4) Septic shock Code(s): A41.9 - SEPSIS, UNSPECIFIED ORGANISM; R65.21 - SEVERE SEPSIS WITH SEPTIC SHOCK Status: Acute (5) UTI (urinary tract infection) Status: Acute Qualifiers: Urinary tract infection type: acute cystitis Hematuria presence: without hematuria Qualified Code(s): N30.00 - Acute cystitis without hematuria (6) Adrenal insufficiency Code(s): E27.40 - UNSPECIFIED ADRENOCORTICAL INSUFFICIENCY Status: Chronic - Plan Plan: 59 y/o black male with PMHx adrenal insufficiency, DM brought to ED for AMS and found to be in septic shock with NSTEMI, diverticulitis, UTI, and DKA. Septic Shock Likely 2/2 diverticulitis, UTI in setting of adrenal insufficiency. Right femoral central line placed in ED on 02/24. Hypotensive requiring Levophed gtt. WBC 20. Received 5L fluid resuscitation, zosyn, levophed in the ED. -Continue zosyn 3.375mg IV q6h (started 02/25), renally adjusted dose for high risk intra-abdominal infection and should treat common gram-neg urinary pathogens as well. -Continue Levophed with MAP >65 as needed, drip was turned off at 0400 on 02/25 with BP stable since -F/u blood cx, urine cx with gram stain -IVF per DKA protocol, monitor strict I/Os -Procalcitonin 321, will repeat -Lactic Acid 8.3> 8.2 DKA in IDDM2 Glucose greater than 500 on admission, elevated B hydroxybutyrate 0.8, corrected anion gap of 18 on admission. -Insulin and K per DKA protocol -BMP q4hr per DKA protocol -Accuchecks per DKA protocol -F/u ABG UTI UA on admission with +glucose, +WBCs, +RBCs, 1+ bacteria. Questionable history of MDR E.Coli & Klebsiella in past, although ultimately attributed to contamination. One culture with MRSA 6 mo. ago. -Napier catheter placed in ED -Abx: zosyn as above, will de-escalate pending gram stain of urine -F/u urine culture with gram stain Sigmoid Diverticulitis Diarrhea onset today, WBC 20, CT abdomen suggestive of diverticulitis. Some blood in diarrhea, although has changed to watery diarrhea. -C diff negative, Stool studies negative -nursing placed rectal tube NSTEMI Initial troponin 2.293, stable at this level x3 checks. Initial EKG sinus tachycardia with T wave inversions in III and aVF. -Consulted Cardiology--Dr. Lynn, appreciate recs -recommended ASA -call back in AM -Did not administer lovenox due to blood in diarrhea. -Unable to take PO ASA due to AMS, will attempt [place] ASA pending diarrhea. -Atorvastatin 40mg included in home meds, not given due to NPO. Adrenal insufficiency Unclear compliance with home medications. -Stress dose hydrocortisone 100mg IM q12 hours -BMP q4hr, monitor electrolytes especially K closely and replete as needed Altered Mental Status Likely secondary to infection, septic shock. Per report, A&O x4 at baseline. GCS 11 on admission. -Continue to monitor, reorient as needed. CARL Likely secondary to hypotension, septic shock. Cr 3.37, CrCl 21. Baseline GFR is >90. -Renal dose adjustment of zosyn -Continue to monitor with AM labs -bilateral renal cysts 2.8 mm & 2.6 mm & nephrolithiasis seen on CT Lactic Acidosis Lactate 8 on admission with elevated anion gap, likely 2/2 septic shock. -Continue to monitor anion gap Leukocytosis with bandemia Likely secondary to infection. -Continue to monitor with daily AM CBC Hypokalemia K 3.5 on admission. Will need to be monitored closely due to insulin therapy and hydrocortisone administration. -Replete K per DKA protocol -Continue to monitor with q4hr BMP Hypomagnesemia 1.4 on admission. Repleted with 1g IV Mg. -F/u Mg level in AM Transaminitis Likely due to hypotension, septic shock. -Tx of septic shock as above -admission AST 216, ALT 154, Alk Phos 127 -Continue to monitor with AM labs Hyperchloremia Likely due to diarrhea, large amount of NS administered. -Continue to monitor -IVF per DKA protocol Pressure Ulcers Multiple ulcers in groin, sacral area. -Consult to wound care Adult Stills Disease Unclear compliance with home medication; non-compliance has affected mental status in the past. -Family member, Cathy Hinds, to bring home Anakinra in AM. Not available in hospital. Combined CHF Last echo 01/28/2020 with EF 60-65% and grade 1 diastolic dysfunction. -Monitor for symptoms of volume overload BPH Home meds include tamsulosin. Not given today due to NPO status. Social considerations: MPOA is daughter, Akilah Nunez ([phone]) who lives in [place]. Pt lives with aunt, Cathy Hinds ([phone]), who is also tar and ammonia pump operator for another family member. Consulted case management for placement. Consult Palliative Care Team who patient has seen on several admissions. Diet: NPO IVF: per DKA protocol PPx: SCDs, Pepcid IV Code: Full PCP: Melanie Boyce Lines/Tubes: Napier cath (02/24), rectal tube (02/25), 2 peripheral IVs, right fem central line (02/24) Dispo: Guarded, Admitted to CCU. Will likely need rehab upon discharge if agreeable as patient has had several recent admissions often due to medication noncompliance. Addendum - Attending - Attending Attestation Date/Time: 02/26/20 7135 I personally evaluated the patient and discussed the management with Dr. Gallardo. I agree with the History, Examination, Assessment and Plan documented above with any addition or exceptions noted below. Patient here with suspected adrenal crisis 2/2 medication noncompliance in setting of his Still's disease and chronic steroid dependence. Mentation still somewhat clouded this morning. He is off Levophed. His presentation is unlikely from septic shock, but will continue abx until cultures result. He was not in DKA, but instead was hyperglycemic. Wean from Insulin drip and start SQ insulin. He is now hypernatremic and hyperchloremic from NS boluses, needs free water repletion. Renal function continues to improve, continue to trend. Will work once again to get him placed in a facility as he obviously cannot care for himself.
[2020-02-26 06:09] LABS: Hemoglobin 13.6 g/dL (14.0-18.0); MDiff Complete? YES; Mean Corpuscular HGB CONC 32.3 g/dL (32.0-36.0); Mean Corpuscular Hemoglobin 29.8 pg (27.0-31.0); Mean Corpuscular Volume 92.3 fL (78.0-98.0); Mean Platelet Volume 8.9 fL (7.4-10.4); Platelet Count 140 thou/uL (130-400); RBC Distribution Width 17.2 % (11.5-14.5); Red Blood Cell (RBC) Count 4.55 mill/uL (4.70-6.10); White Blood Cell (WBC) Count 16.7 thou/uL (4.8-10.8)
[2020-02-26 06:10] LABS: Band 37 % (5-11); Lymphocytes 4 % (21-51); Neutrophil 59 % (42-75)
[2020-02-26] MEDS ORDERED: Dexamethasone 4 mg/ml Vial SLOW IVP SCH (07:00)
[2020-02-26] MEDS ORDERED: Hydrocortisone Sod Succ/PF 100 mg/2 ml Vial IM SCH (08:00)
--- NOTE | 2020-02-26 09:52 | PDOC.BPN ---
- Brief Progress Note February 26, 2020 11:04 am S: Pt is a 59 yo M with pmh hemorrhoids, OA, T2DM, and Still's Disease who presents in septic shock. I spoke with the pt today, and he is currently A&Ox1. I called his daughter to discuss who is MPOA was. She said that he was supposed to sign paperwork last time he was in the hospital, but she does not know what came of it. I discussed the option of going to a half-way, which his daughter says he was against the idea of going to one. She said the home health care nurse suggested that he go on hospice to received the care he needed. Discussed that I am unsure if he meets the qualifying criteria for hospice. She agreed to discuss plan of future care with patient. I updated her on his current labs and discussed how he was doing today. I also encouraged him setting up an MPOA, since he has come in to the hospital multiple times not fully alert and oriented, so we would know his wishes. Will try to call his teaching artist later today to get recommendations on his medications. O: General: A&Ox1, person Head: Normocephalic, atraumatic ENT: Conjunctiva clear, mucous membranes dry Cardiovascular: Regular rate and rhythm Respiratory: Clear to auscultation bilaterally Gastrointestinal: Normal bowel sounds, soft, non-tender Pulses: Peripheral pulses radially were 2+, unable to feel dorsalis pedis or posterior tibial due to swelling Extremities: Swelling greater on right lower extremity than left, pitting edema that is 3+ and up to mid corea on right, around ankle on left A&P: Agree with plan of primary team. Would be beneficial to consult palliative to establish goals of care once patient is more alert and to get MPOA signed. Also, ongoing discussion needs to be about placement, since patient frequently misses doses of medication.
[2020-02-26] MEDS ORDERED: Dextrose 5% in Water 1,000 ML IV PRN (12:14)
[2020-02-26] MEDS ORDERED: Dextrose 50% Abboject 50 ML SYRINGE SLOW IVP PRN (12:14)
--- NOTE | 2020-02-26 13:25 | CON ---
DATE OF CONSULTATION: 02/26/2020 REASON FOR CONSULTATION: Elevated troponins. HISTORY OF PRESENT ILLNESS: Mr. Knight is a very pleasant 59-year-old gentleman, who was brought to the hospital for altered mental status. He was brought in, he had a bloody diarrhea, thought to be related to diverticulitis, and admitted for septic shock. He has a history of Still disease and has to be on steroids all the time, so right now he is getting stress dose steroids and was on Levophed all night long. This was weaned off at 4 a.m. today. On my evaluation, Mr. Knight is still altered and unable to provide any significant history. PAST MEDICAL HISTORY: 1. Adult Still disease. 2. Renal insufficiency. 3. Type 2 diabetes. 4. Hyperlipidemia. 5. BPH. 6. History of diastolic heart failure. Last EF was in January of this year, that was 60% to 65%. PAST SURGICAL HISTORY: 1. Cholecystectomy. 2. Left shoulder surgery. 3. Right shoulder surgery. 4. Left knee surgery. 5. Cervical fusion. FAMILY HISTORY: Noncontributory. SOCIAL HISTORY: No alcohol, tobacco, or drugs. REVIEW OF SYSTEMS: Unobtainable as the patient remains confused. OUTPATIENT MEDICATIONS: 1. Prednisone 60 mg every 12 hours. 2. Methotrexate. 3. Levemir 35 units every morning. 4. Famotidine 20 mg b.i.d. 5. Tramadol 100 mg q.6 p.r.n. 6. Tamsulosin 0.4 q.a.m. 7. Florinef 0.1 a day. 8. Insulin aspart. 9. Zetia 10 mg a day. 10. Lotrimin cream. 11. Lipitor 40 mg at bedtime. 12. Anakinra 100 mg subcu q.p.m. 13. Alogliptin 25 mg a day. 14. Xarelto 20 mg daily. 15. Multivitamin daily. ALLERGIES: VANCOMYCIN. PHYSICAL EXAMINATION: VITAL SIGNS: Temperature 97.5, pulse 106, respiratory rate 24, saturating 100% on 2 L nasal cannula, and blood pressure 95/67. GENERAL: Awake and alert, but unable to respond any questions with any significance. He just nods yes. HEENT: Normocephalic, atraumatic. NECK: Supple. LUNGS: Clear. CARDIOVASCULAR: S1, S2. No S3, S4. There is a grade 2/6 systolic murmur at the right upper sternal border. ABDOMEN: Soft. Positive bowel sounds. EXTREMITIES: No edema. SKIN: Warm and dry. LABORATORY DATA: Laboratory work was reviewed. White count of 20, down to 16; hemoglobin 14.9, down to 13; platelet count of 122, up to 140. ABG was reviewed. Chemistries were reviewed. BUN and creatinine at 25/2.4, this is actually much better than admission with a creatinine of 3.1. Troponin was positive at 2.2 on admission, then 2.0 and then back up to 2.1, suggestive of demand ischemia. Glucose in the 200s to 300s range. UA was reviewed. Toxicology, beta-hydroxybutyrate was just slightly elevated, normalized since. EKG was reviewed. ASSESSMENT: 1. [id number] myocardial infarction. Likely type 2 demand type of ischemia. 2. Altered mental status, likely from septic like picture. 3. Septic shock, improving. Off Levophed now. 4. Sigmoid diverticulitis, likely source of his ischemic picture. PLAN: 1. Conservative therapy at this point given this is most likely just demand ischemia from his septic like picture and hypotension. 2. We will repeat echocardiogram to make sure that it is unchanged from what it was just 3 weeks ago. 3. No need to continue to trend troponins as they already have shown fluctuating trend consistent with demand ischemia. 4. Continue supportive care per primary team. 5. Antibiotics per primary team. Thank you for letting us to participate in the care of your patient. 45 minutes of critical care time. Job ID: [id number]
--- NOTE | 2020-02-26 16:08 | CON ---
DATE OF CONSULTATION: 02/26/2020 HISTORY OF PRESENT ILLNESS: Stephani peter is a very pleasant gentleman with adult Still disease. He presented yesterday evening with change in mental status as well as diarrhea. I have seen him multiple times with multiple hospital admissions here at [place], and he appears to be getting weaker every time I see him. The nurses tell him that he has some breakdown on his back and he tells me that he is in bed most of the time nowadays. He is admitted with a diagnosis of possible sepsis and diabetes. PAST MEDICAL HISTORY: Remarkable for: 1. Renal insufficiency. 2. Diabetes. 3. Lipid disorder. 4. BPH. 5. History of diastolic dysfunction. 6. History of cholecystectomy. 7. History of bilateral shoulder surgery. 8. Left knee surgery. 9. Cervical spine surgery. SOCIAL HISTORY: He is a nonsmoker and nondrinker. REVIEW OF SYSTEMS: Otherwise not accurately obtainable. MEDICATIONS: Have been reviewed. PHYSICAL EXAMINATION: VITAL SIGNS: Heart rate is 100, blood pressure 94/72, respiratory rates in the 20s, and he is afebrile. HEAD AND NECK: Unremarkable. He appears cushingoid. LUNGS: Clear. HEART: Regular rhythm. ABDOMEN: Soft and nontender. EXTREMITIES: Without clubbing, cyanosis, or edema. LABORATORY DATA: White count 16.7, hemoglobin 13.6, and platelets 140. Glucose was 508 and creatinine is 3.37. Lactate was 8.3. Hydroxybutyrate was only 0.8. IMPRESSION: Lactic acidosis with severe intravascular volume depletion on presentation, combined with encephalopathy. His abdomen CT did not reveal an explanation for his diarrhea. His baseline creatinine a month ago was 0.7, so I suspect a lot of his renal insufficiency is related to his diarrhea and intravascular volume depletion, combined with stool-induced bicarb losses. He is actually hyperchloremic and his anion gap yesterday was only 15, so I really doubt that majority of this is from diabetes and a ketoacidosis. It is much more likely the diarrhea, bicarb losses, and intravascular volume depletion, combined with renal insufficiency, have created his acidemia. He appears stable at this point in time. This is a 70 min consult with greater than 50% of the time spent on the unit with coordination of care. Job ID: [id number] [facility]
[2020-02-26] MEDS: HumaLOG 300 UNITS/3 ML VIAL SC SCH (18:30)
[2020-02-26] MEDS: Famotidine/PF 20 mg/2ml Vial SLOW IVP SCH (21:03)
[2020-02-27] MEDS: Piperacillin/Tazobactam 3.375 GM in Sodium Chloride 0.9% 100 ML IVPB SCH ×3 (00:13→10:26)
[2020-02-27] MEDS: traMADol HCl 50 MG TAB PO PRN (01:06)
[2020-02-27] MEDS: Hydrocortisone Sod Succ/PF 100 mg/2 ml Vial IVP SCH ×2 (01:07→07:58)
--- NOTE | 2020-02-27 06:22 | PDOC.FM ---
- Subjective Subjective: Patient denies pain or SOB. Upon further questioning he repeats "I've been through this before." - Objective MAR Reviewed: Yes Vital Signs & Weight: Vital Signs (12 hours) Temp Pulse BP Pulse Ox Pulse Ox 02/27/20 03:26 97.7 F 02/26/20 23:24 98.5 F 02/26/20 20:00 100 02/26/20 19:34 98.3 F 02/26/20 18:00 108 H 113/82 100 Weight Admit Weight 73.028 kg Weight 73.4 kg Most Recent Monitor Data Heart Rate from ECG 91 NIBP 99/71 NIBP BP-Mean 80 Respiration from ECG 19 SpO2 100 I&O: 02/25/20 02/26/20 02/27/20 06:59 06:59 06:59 Intake Total 4298 3431 Output Total 5950 3380 Balance -1652 51 Result Diagrams: 02/27/20 07:48 02/27/20 07:48 Phys Exam - Physical Examination Constitutional: NAD HEENT: moist MMs, sclera anicteric Neck: no JVD, supple Respiratory: no wheezing, clear to auscultation bilateral Cardiovascular: RRR, no significant murmur Gastrointestinal: soft, positive bowel sounds Musculoskeletal: pulses present, edema present 2+ pitting edema Neurological: moves all 4 limbs Psychiatric: normal affect, A&O x 3 Deviation from normal: A&0x3 (person, place, situation). Patient states it is 2001. Skin: no rash, normal turgor Dx/Plan - Plan Plan: 1. 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 Patient initially admitted for possible septic shock 2/2 diverticulitis and UTI. Right femoral central line placed in ED on 02/24. Patient was hypotensive requiring Levophed gtt. WBC 20 upon admission. Received 5L NS fluid resuscitation and zosyn in the ED. Levophed drip turned off at 0400 on 02/25 with BP stable since. Since patient is not in DKA, protocol discontinued. -Discontinue zosyn 3.375mg IV q6h (started 02/25) after 48 hours administration. Was renally adjusted dose for high risk intra-abdominal infection -Complete stress dose hydrocortisone 50mg IM q6h over 24 hours. Will begin transition to oral home dose today. -F/u blood cx, urine cx with gram stain -CBC, CMP daily -Monitor strict I/Os 2. 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 Elevated B hydroxybutyrate 0.8. DKA protocol initiated and patient placed on insulin drip. Corrected anion gap 15 so protocol discontinued. Patient weaned off drip and placed on glargine with SSI. Glucose range 120-213 with one episode of 95 over past 24 hours. -Lantus 35 units daily -Humalog SS 3. UTI UA on admission with + glucose, WBC, RBC and +1 bacteria. Questionable history of MDR E.coli and Klebsiella in the past, although ultimately attributed to contamination. One culture with MRSA 6 months ago. Napier catheter placed in ED. -Continue zosyn as specified above -F/u urine cx with gram stain 4. Sigmoid diverticulitis WBC 20. CT abdomen suggestive of diverticulitis. Diarrhea reported with some blood present, changed to watery diarrhea. C.diff negative. Stool studies negative. -Rectal tube in place 5. NSTEMI Initial trop 2.293, stable x 3 checks. Initial EKG showed sinus tach with T wave conversions in III and aVF. Cardio consulted and warned against lovenox due to blood in diarrhea. -Attempt [place] ASA pending diarrhea, per cardio recs -F/u repeat echo -Hold atorvastatin 40mg due to NPO 8. Encephalopathy Likely secondary to infection and hyperglycemia. Per report, A&Ox4 at baseline. GSC 11 on admission. Patient A&Ox3 this morning. -Continue to monitor -Reorient as needed 9. Acute renal insufficiency Likely due to diarrhea and intravascular volume depletion in the setting of encephalopathy. Bilateral renal cysts 2.8mm and 2.6mm as well as nephrolithiasis seen on CT. Baseline GFR > 90. -Renal dose adjustment of zosyn -Monitor morning labs 9. Lactic acidosis Lactate 8 on admission. Corrected anion gap was 15. Acidosis likely due to diarrhea, bicarb loss and intravascular depletion -Monitor 10. Leukocytosis with bandemia Likely secondary to infection. -CBC daily -Continue to monitor 11. Hypokalemia K 3.5 on admission. Monitoring closely due to insulin therapy and hydrocortisone administration. -Replete K as needed 12. Hypomagnesemia Mg 1.4 on admission. Repleted with 1g IV Mg. -F/u Mg level 13. Transaminitis Likely due to hypotension and septic shock. Ast 216, ALT 154, alk phos 127 on admission. -Monitor with am labs 14. Hyperchloremia Likely due to diarrhea, bicarb loss and volume depletion. Large amount of NS were administered. Most recent was 119. -Monitor with am labs 15. Hypernatremia Likely due to large amount of NS administered and free water depletion. Most recent was 152. Unable to administer D5 to correct free water depletion due to hyperglycemia. -Encourage water intake 16. Pressure ulcers Multiple in groin and sacral area. -F/u wound care recs 17. Adult Stills Disease Unclear compliance with home medication. Non-compliance has affected mental status in the past. Anakinra not available in hospital. -F/u with Cathy Hinds (family member) who is bringing home Anakinra this am 18. Combined CHF Last echo on 01/27/10 showed EF 60-65% and grade 1 diastolic dysfunction. -F/u repeat echo -Monitor for symptoms of volume overload 19. BPH -Hold home meds due to NPO status Social considerations: ZULEYKA is daughter, Akilah Nunez ([phone]) who lives in [place]. Patient living with aunt, Cathy Hinds ([phone]), who is also program services planner for another family member. Consulted CM for placement since patient has a history of missing doses. Consulted Palliative Care Team who patient has seen on several admissions. Code: Full PCP: Melanie Boyce Lines/Tubes: Napier cath (02/24), rectal tube (02/25), 2 peripheral IVs, right fem central line (02/24) Dispo: Guarded. Transition to the floor today. Likely need rehab upon discharge if agreeable as patient has had several admissions often due to medication noncompliance. Addendum - Attending - Attending Attestation Date/Time: 02/27/20 1210 I personally evaluated the patient and discussed the management with Dr. Comer. I agree with the History, Examination, Assessment and Plan documented above with any addition or exceptions noted below. Patient much improved this morning. BP and blood sugar improved, back on home insulin regimen with escalation. Back on steroids. Needs Anakinra started today. Cultures negative and will stop abx at 48 hours. He has been volume resuscitated and will have him PO hydrate with free water and allow his hypernatremia to improve over the coming days with normal renal function. He is stable to transfer out of [facility]. He needs placement as he is unable to care for himself at home resulting in recurrent admissions.
[2020-02-27] MEDS: Multivitamin W/ Minerals 1 TAB PO SCH (07:57)
[2020-02-27] MEDS: Ezetimibe 10 MG TAB PO SCH (07:57)
[2020-02-27] MEDS: Insulin Glargine 35 UNITS in Pre-Filled Syringe 1 EACH SC SCH (08:01)
[2020-02-27] MEDS: Alogliptin 25 MG TAB PO SCH (08:05)
[2020-02-27 08:23] LABS: ALT (SGPT) 245 U/L (8-55); AST (SGOT) 149 U/L (5-34); Albumin 2.6 g/dL (3.5-5.0); Alkaline Phosphatase 113 U/L (40-110); Anion Gap 15 mmol/L (10-20); BUN (Urea Nitrogen) 25 mg/dL (8.4-25.7); Bilirubin, Total 0.8 mg/dL (0.2-1.2); Calc. Creatinine Clearance 52 mL/min (70-130); Calcium 8.3 mg/dL (7.8-10.44); Carbon Dioxide 22 mmol/L (22-29); Chloride 119 mmol/L (98-107); Estimated GFR-MDRD 54; Globulin 2.6 g/dL (2.4-3.5); Glucose 241 mg/dL (70-105); Magnesium 1.6 mg/dL (1.6-2.6); Potassium 3.8 mmol/L (3.5-5.1); Protein, Total 5.2 g/dL (6.0-8.3); Sodium 152 mmol/L (136-145)
[2020-02-27] MEDS ORDERED: INSULIN DETEMIR 35 UNIT SQ SCH (09:00)
[2020-02-27] MEDS ORDERED: Magnesium 2 GM/50 ML 2 GM in Premix Bag 1 BAG IVPB SCH (09:30)
[2020-02-27] MEDS: HumaLOG 300 UNITS/3 ML VIAL SC SCH ×3 (10:24→19:20)
[2020-02-27] MEDS: Clotrimazole 1% Cream 15 GM TUBE TOP SCH (10:37)
[2020-02-27] MEDS: HumaLOG 300 UNITS/3 ML VIAL SC PRN (10:59)
[2020-02-27 11:45] LABS: Band 26 % (5-11); Hemoglobin 11.6 g/dL (14.0-18.0); Lymphocytes 10 % (21-51); MDiff Complete? YES; Mean Corpuscular HGB CONC 32.1 g/dL (32.0-36.0); Mean Corpuscular Hemoglobin 29.9 pg (27.0-31.0); Mean Corpuscular Volume 92.9 fL (78.0-98.0); Mean Platelet Volume 9.3 fL (7.4-10.4); Monocytes 3 % (0-10); Neutrophil 60 % (42-75); Platelet Count 107 thou/uL (130-400); Platelet Morphology Comment Appears Decreased; Polychromasia SLIGHT = 2-3 cells (100X) (0-2/hpf); RBC Distribution Width 17.4 % (11.5-14.5); Reactive Lymphocytes 1 % (0-10)
[2020-02-27] MEDS ORDERED: Fluconazole 100 MG TAB PO SCH (12:45)
[2020-02-27] MEDS: ANAKINRA 100 MG SCH (14:43)
--- NOTE | 2020-02-27 18:42 | PDOC.CPN ---
- Subjective Date: 02/27/20 Time: 18:39 Interval history: He is doing a lot better. Awake now and back to baseline mentation. - Review of Systems General: denies: fever/chills, weight/appetite/sleep changes, night sweats, fatigue Respiratory: denies: cough, congestion, shortness of breath, exercise intolerance Cardiovascular: denies: chest pain, palpitation, edema, paroxysmal nocturnal dyspnea, orthopnea Gastrointestinal: denies: nausea, vomiting, diarrhea, constipation, abd pain, GI bleeding Musculoskeletal: denies: pain, tenderness, stiffness, swelling, arthritis/ arthralgias Neurological: denies: numbness, syncope, seizure, weakness - Objective Allergies/Adverse Reactions: Allergies Allergy/AdvReac Type Severity Reaction Status Date / Time vancomycin Allergy Intermediate Verified 01/07/20 20:03 Visit Medications: Current Medications Alogliptin Benzoate (Alogliptin) 25 mg PO DAILY [facility] Last Admin: 02/27/20 08:05 Dose: 25 mg Atorvastatin Calcium (Lipitor) 40 mg PO [facility] Clotrimazole (Lotrimin 1% Cream) 0 gm TOP DAILY [facility] Last Admin: 02/27/20 10:37 Dose: 1 applic Dextrose/Water (Dextrose 50%) 25 gm SLOW IVP PRN PRN PRN Reason: Hypoglycemia Ezetimibe (Zetia) 10 mg PO [facility] Last Admin: 02/27/20 07:57 Dose: 10 mg Glucagon (Glucagon) 1 mg IM PRN PRN PRN Reason: Hypoglycemia Dextrose/Water (D5w) 1,000 mls @ 0 mls/hr IV .Q0M PRN PRN Reason: Hypoglycemia Insulin Glargine 35 units/ (Miscellaneous Medication) 0.35 mls @ 0 mls/hr [facility] Last Admin: 02/27/20 08:01 Dose: 0.35 mls Hydrocortisone Sodium Succinate 50 mg/ Sodium Chloride 50.4 mls @ 50 mls/hr IVPB BID [facility] Stop: 02/28/20 10:01 Insulin Human Lispro (Humalog) 0 units SC .MODERATE SLIDING SC PRN PRN Reason: Moderate Correctional Scale Last Admin: 02/27/20 10:59 Dose: 8 unit Insulin Human Lispro (Humalog) 0 units SC .BEDTIME SLIDING SC PRN PRN Reason: Bedtime Correctional Scale Insulin Human Lispro (Humalog) 10 units SC AC [facility] Last Admin: 02/27/20 10:49 Dose: 10 unit Iron/Minerals/Multivitamins (Theragran M) 1 tab PO DAILY [facility] Last Admin: 02/27/20 07:57 Dose: 1 tab Miscellaneous Medication (Electrolyte Replacement Protocol) 0 each FS ASDIR PRN ; Protocol PRN Reason: ELECTROLYTE REPLACEMENT Pantoprazole Sodium (Protonix) 40 mg PO DAILY [facility] Last Admin: 02/27/20 07:58 Dose: 40 mg Anakinra [Kineret] (100 Mg) Inj) 0 each SC QPM [facility] Last Admin: 02/27/20 14:43 Dose: Not Given Prednisone (Prednisone) 60 mg PO 1200 [facility] Sodium Chloride (Flush - Normal Saline) 10 ml IVF Q12HR [facility] Sodium Chloride (Flush - Normal Saline) 10 ml IVF PRN PRN PRN Reason: Saline Flush Tamsulosin HCl (Flomax) 0.4 mg PO HS [facility] Tramadol HCl (Ultram) 100 mg PO Q6H PRN PRN Reason: Pain Last Admin: 02/27/20 01:06 Dose: 100 mg Vital Signs & Weight: Vital Signs Temp Pulse Ox 02/27/20 15:28 97.8 F 02/27/20 11:21 97.8 F 02/27/20 08:00 100 02/27/20 07:24 97.2 F L Admit Weight 161 lb Weight 161 lb 13.109 oz - Physical Exam General: alert & oriented x3 HEENT: mucus membranes moist Neck: supple neck Cardiac: regular rate and rhythm Lungs: clear to auscultation Neuro: grossly intact Abdomen: active bowel sounds Extremities: 2+ LE edema Skin: clear Musculoskeletal: no pain - Labs Result Diagrams: 02/27/20 07:48 02/27/20 07:48 Troponin/CKMB CK-MB (CK-2) 17.3 ng/mL (0-6.6) H* 02/25/20 15:19 Troponin I 2.141 ng/mL (< 0.028) H* 02/25/20 20:07 - Telemetry Sinus rhythms and dysrhythmias: sinus rhythm - Assessment/Plan Assessment/Plan: 1. AMS 2. Dilated CM EF at 40-45% on echo today. 3. NSTEMI, demand ischemia, Type 2 TX 4. Sigmoid diverticulitis 5. Septic shock, improved. 6. Severe deconditioning 7. CARL on CKD PLAN: - No invasive interventions at this time. - No anticoagulation given bloody diarrhea - Should be safe to do DVT prophylaxis. - Will do US of both legs as right leg more swollen than left. - BP still too low to start any BP/CHF meds.
[2020-02-27] MEDS: Atorvastatin Calcium 20 MG TAB PO SCH (21:22)
[2020-02-27] MEDS: Hydrocortisone Sod Succ/PF 50 MG in Sodium Chloride 0.9% 50 ML IVPB SCH (21:22)
[2020-02-27] MEDS: Tamsulosin HCl 0.4 MG CAP PO SCH (21:22)
[2020-02-28] MEDS: ANAKINRA 100 MG SCH ×2 (02:42→21:47)
[2020-02-28 05:34] LABS: AST (SGOT) 73 U/L (5-34); Albumin 2.6 g/dL (3.5-5.0); Anion Gap 14 mmol/L (10-20); BUN (Urea Nitrogen) 22 mg/dL (8.4-25.7); Bilirubin, Total 0.8 mg/dL (0.2-1.2); Calc. Creatinine Clearance 69 mL/min (70-130); Carbon Dioxide 19 mmol/L (22-29); Chloride 113 mmol/L (98-107); Estimated GFR-MDRD 76; Globulin 2.7 g/dL (2.4-3.5); Glucose 103 mg/dL (70-105); Potassium 3.5 mmol/L (3.5-5.1); Protein, Total 5.3 g/dL (6.0-8.3); Sodium 142 mmol/L (136-145)
--- NOTE | 2020-02-28 05:42 | PDOC.FM ---
- Subjective Subjective: Patient reports mild right leg pain. He denies a history of DVT or clotting disorder. He denies headache, chest pain, SOB or sweating. He previously had an episode of bloody diarrhea but is unaware if blood has been present in BMs since. - Objective MAR Reviewed: Yes Vital Signs & Weight: Vital Signs (12 hours) Temp Pulse Resp BP Pulse Ox 02/28/20 04:00 97.7 F 83 18 108/68 100 02/27/20 19:58 97.8 F 94 16 125/81 100 Weight Admit Weight 73.028 kg Weight 73.4 kg Most Recent Monitor Data Heart Rate from ECG 84 NIBP 109/71 NIBP BP-Mean 83 Respiration from ECG 40 SpO2 100 I&O: 02/26/20 02/27/20 02/28/20 06:59 06:59 06:59 Intake Total 4298 3431 1280 Output Total 5950 3380 800 Balance -1652 51 480 Result Diagrams: 02/28/20 04:23 02/28/20 04:23 Phys Exam - Physical Examination Constitutional: NAD HEENT: moist MMs, sclera anicteric Neck: supple, full ROM Respiratory: no wheezing, clear to auscultation bilateral Cardiovascular: RRR, no significant murmur Gastrointestinal: soft, positive bowel sounds Musculoskeletal: pulses present, edema present R leg - worsen edema vs. left, erythematous, no warmth Neurological: moves all 4 limbs Lymphatic: no nodes Psychiatric: normal affect, A&O x 3 Skin: no rash, normal turgor Dx/Plan - Plan Plan: 1. 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 Patient initially admitted for possible septic shock 2/2 diverticulitis and UTI. Right femoral central line placed in ED on 02/24. Patient was hypotensive requiring Levophed gtt. WBC 20 upon admission. Received 5L NS fluid resuscitation and zosyn in the ED. Levophed drip turned off at 0400 on 02/25 with BP stable since. Since patient is not in DKA, protocol discontinued. Zosyn discontinued 02/26. -Continue home dose oral steroids -Unable to obtain home anakinra despite multiple attempts to contact family -CBC, CMP daily -Monitor strict I/Os 2. 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 Elevated B hydroxybutyrate 0.8. DKA protocol initiated and patient placed on insulin drip. Corrected anion gap 15 so protocol discontinued. Patient weaned off drip and placed on glargine with SSI. Glucose range 103-309 over past 24 hours. -Lantus 35 units daily -Humalog SS 3. UTI UA on admission with + glucose, WBC, RBC and +1 bacteria. Questionable history of MDR E.coli and Klebsiella in the past, although ultimately attributed to contamination. One culture with MRSA 6 months ago. Napier catheter placed in ED. Urine culture grew emiliano albucans at 48 hours. -Given 1 dose of diflucan on 02/26 4. Sigmoid diverticulitis WBC 20. CT abdomen suggestive of diverticulitis. Diarrhea reported with some blood present, changed to watery diarrhea. C.diff negative. Stool studies negative. -Rectal tube in place -Nurse will evaluate next BM for bloody 5. NSTEMI Initial trop 2.293, stable x 3 checks. Initial EKG showed sinus tach with T wave conversions in III and aVF. Cardio consulted and warned against lovenox due to blood in diarrhea. Echo on 02/26 showed EF 40-45% with diastolic dysfunction. -Attempt [place] ASA pending diarrhea, per cardio recs -Hold BP meds due to soft BPs -Hold atorvastatin 40mg due to NPO 6. Lower extremity edema Patient noted to have right lower extremity edema worsen than the left with erythema. Patient can be placed on DVT ppx per cardio. -US of bilateral lower extremities 7. Encephalopathy, resolved Likely secondary to infection and hyperglycemia. GSC 11 on admission. Patient at baseline this am. -Continue to monitor -Reorient as needed 8. Acute renal insufficiency, improved Likely due to diarrhea and intravascular volume depletion in the setting of encephalopathy. Bilateral renal cysts 2.8mm and 2.6mm as well as nephrolithiasis seen on CT. Baseline GFR > 90. Creatinine has improved from 3.21 on admission to 1.19. -Monitor morning labs 10. Lactic acidosis Lactate 8 on admission. Corrected anion gap was 15. Acidosis likely due to diarrhea, bicarb loss and intravascular depletion -Monitor 11. Leukocytosis with bandemia Likely secondary to infection. -Continue to monitor 12. Hypokalemia, resolved K 3.5 on admission. Monitoring closely due to insulin therapy and hydrocortisone administration. -Continue to monitor 13. Hypomagnesemia Mg 1.4 on admission. Repleted with 1g IV Mg. -Continue to monitor 14. Transaminitis Likely due to hypotension and septic shock. Ast 216, ALT 154, alk phos 127 on admission. -Monitor with am labs 15. Hyperchloremia, improved Likely due to diarrhea, bicarb loss and volume depletion. Large amount of NS were administered. Most recent was 113. -Monitor with am labs 16. Hypernatremia, resolved Likely due to large amount of NS administered and free water depletion. Most recent was 145. Unable to administer D5 to correct free water depletion due to hyperglycemia. -Encourage PO water intake 17. Pressure ulcers Multiple in groin and sacral area. -F/u wound care recs 18. Adult Stills Disease Unclear compliance with home medication. Non-compliance has affected mental status in the past. Anakinra not available in hospital. -Tried to obtain Anakinra multiple times unsuccessfully 19. Combined CHF Echo on 02/26 showed EF 40-45% with diastolic dysfunction. -Monitor for symptoms of volume overload 20. BPH -Hold home meds Social considerations: ZULEYKA is daughter, Akilah Nunez ([phone]) who lives in [place]. Patient living with aunt, Cathy Hinds ([phone]), who is also shrink pit operator for another family member. Consulted CM for placement since patient has a history of missing doses with resulting repeat admissions and is unsafe to live alone. Consulted Palliative Care Team who patient has seen on several admissions. Code: Full PCP: Melanie Boyce Lines/Tubes: Napier cath (02/24), rectal tube (02/25), 2 peripheral IVs, right fem central line (02/24) Dispo: Guarded. Will need placement upon discharge if agreeable as patient has had several admissions often due to medication noncompliance. Addendum - Attending - Attending Attestation Date/Time: 02/28/20 3068 I personally evaluated the patient and discussed the management with Dr. Comer. I agree with the History, Examination, Assessment and Plan documented above with any addition or exceptions noted below. Patient continues to improve. He still needs to be started on his Anakinra. He now has DVT in his LE, will need therapeutic anticoagulation unless his hematochezia returns. His disease process continues to become more and more complicated with each admission due to his noncompliance and frequent hospitalizations. He needs placement and we will continue to have that conversation with him.
[2020-02-28 05:57] LABS: Alkaline Phosphatase 116 U/L (40-110)
[2020-02-28 06:00] LABS: ALT (SGPT) 183 U/L (8-55)
[2020-02-28 06:29] LABS: Anisocytosis SLIGHT = 6-15 cells (100X) (0-5/hpf); Band 19 % (5-11); Eosinophils 2 % (0-10); Lymphocytes 5 % (21-51); MDiff Complete? YES; Mean Corpuscular HGB CONC 29.8 g/dL (32.0-36.0); Mean Corpuscular Hemoglobin 28.1 pg (27.0-31.0); Mean Corpuscular Volume 94.5 fL (78.0-98.0); Mean Platelet Volume 9.7 fL (7.4-10.4); Neutrophil 74 % (42-75); Platelet Count 116 thou/uL (130-400); Platelet Morphology Comment Appears Decreased; RBC Distribution Width 17.4 % (11.5-14.5); Red Blood Cell (RBC) Count 4.28 mill/uL (4.70-6.10); White Blood Cell (WBC) Count 11.1 thou/uL (4.8-10.8)
[2020-02-28] MEDS ORDERED: Potassium Chloride 20 MEQ TAB PO SCH (07:00)
[2020-02-28] MEDS: Alogliptin 25 MG TAB PO SCH (08:32)
[2020-02-28] MEDS: Ezetimibe 10 MG TAB PO SCH (08:32)
[2020-02-28] MEDS: Multivitamin W/ Minerals 1 TAB PO SCH (08:32)
[2020-02-28] MEDS: Hydrocortisone Sod Succ/PF 50 MG in Sodium Chloride 0.9% 50 ML IVPB SCH (08:34)
[2020-02-28] MEDS: HumaLOG 300 UNITS/3 ML VIAL SC SCH ×3 (08:37→17:41)
[2020-02-28] MEDS: Insulin Glargine 35 UNITS in Pre-Filled Syringe 1 EACH SC SCH (08:38)
[2020-02-28] MEDS: Clotrimazole 1% Cream 15 GM TUBE TOP SCH (08:41)
[2020-02-28] MEDS ORDERED: Enoxaparin Sodium 40 MG/0.4 ML SYRINGE SC SCH (09:00)
--- NOTE | 2020-02-28 10:25 | ULT ---
Bilateral lower extremity venous Doppler ultrasound: 02/28/2020 HISTORY: Bilateral lower extremity edema, erythema TECHNIQUE: Multiplanar grayscale sonographic imaging of the venous structures of bilateral lower extr emities obtained with color flow and spectral analysis FINDINGS: The right common femoral vein, greater saphenous vein, profunda femoral vein, and proximal aspect of the femoral vein could not be visualized secondary to bandaging material. The mid/distal aspect of the right femoral vein appear patent. Proximal and distal aspects of right popliteal vein a re noncompressible and containing echogenic clot consistent with deep venous thrombosis within the right popliteal vein. Right posterior tibial vein is patent. The left common femoral vein, greater saphenous vein, profunda femoral vein, femoral vein, popliteal vein, and posterior tibial vein appear patent with no evidence for deep venous thrombosis on the left. IMPRESSION: Deep venous thrombosis within the right popliteal vein. The right lower extremity venous structures cannot be fully assessed secondary to bandaging as detailed above. No deep venous thrombosis within the left lower extremity. The covering nurse, Denise Hernández, was made aware via phone by Dr. Hernandez at 10:20 AM 02/28/2020.
[2020-02-28] MEDS: HumaLOG 300 UNITS/3 ML VIAL SC PRN (11:06)
[2020-02-28] MEDS: predniSONE 20 MG TAB PO SCH (12:30)
--- NOTE | 2020-02-28 12:47 | PDOC.CPN ---
- Subjective Date: 02/28/20 Time: 12:45 Interval history: He is doing well. Doppler US of leg showed right LE DVT. He denies chest pain or tightness. - Review of Systems General: denies: fever/chills, weight/appetite/sleep changes, night sweats, fatigue Respiratory: denies: cough, congestion, shortness of breath, exercise intolerance Cardiovascular: denies: chest pain, palpitation, edema, paroxysmal nocturnal dyspnea, orthopnea Gastrointestinal: denies: nausea, vomiting, diarrhea, constipation, abd pain, GI bleeding Musculoskeletal: denies: pain, tenderness, stiffness, swelling, arthritis/ arthralgias Neurological: denies: numbness, syncope, seizure, weakness - Objective Allergies/Adverse Reactions: Allergies Allergy/AdvReac Type Severity Reaction Status Date / Time vancomycin Allergy Intermediate Verified 01/07/20 20:03 Visit Medications: Current Medications Alogliptin Benzoate (Alogliptin) 25 mg PO DAILY [facility] Last Admin: 02/28/20 08:32 Dose: 25 mg Atorvastatin Calcium (Lipitor) 40 mg PO [facility] Last Admin: 02/27/20 21:22 Dose: 40 mg Clotrimazole (Lotrimin 1% Cream) 0 gm TOP DAILY [facility] Last Admin: 02/28/20 08:41 Dose: 1 applic Dextrose/Water (Dextrose 50%) 25 gm SLOW IVP PRN PRN PRN Reason: Hypoglycemia Ezetimibe (Zetia) 10 mg PO QAM [facility] Last Admin: 02/28/20 08:32 Dose: 10 mg Enoxaparin Sodium (Lovenox) 40 mg SC 0900 [facility] Last Admin: 02/28/20 11:02 Dose: 40 mg Glucagon (Glucagon) 1 mg IM PRN PRN PRN Reason: Hypoglycemia Dextrose/Water (D5w) 1,000 mls @ 0 mls/hr IV .Q0M PRN PRN Reason: Hypoglycemia Insulin Glargine 35 units/ (Miscellaneous Medication) 0.35 mls @ 0 mls[facility] [place] Admin: 02/28/20 08:38 Dose: 0.35 mls Insulin Human Lispro (Humalog) 0 units SC .MODERATE SLIDING SC PRN PRN Reason: Moderate Correctional Scale Last Admin: 02/28/20 11:06 Dose: 2 unit Insulin Human Lispro (Humalog) 0 units SC .BEDTIME SLIDING SC PRN PRN Reason: Bedtime Correctional Scale Insulin Human Lispro (Humalog) 10 units SC AC [facility] Last Admin: 02/28/20 11:06 Dose: 10 unit Iron/Minerals/Multivitamins (Theragran M) 1 tab PO DAILY [facility] Last Admin: 02/28/20 08:32 Dose: 1 tab Miscellaneous Medication (Electrolyte Replacement Protocol) 0 each FS ASDIR PRN ; Protocol PRN Reason: ELECTROLYTE REPLACEMENT Pantoprazole Sodium (Protonix) 40 mg PO DAILY [facility] Last Admin: 02/28/20 08:33 Dose: 40 mg Anakinra [Kineret] (100 Mg) Inj) 0 each SC QPM [facility] Last Admin: 02/28/20 02:42 Dose: Not Given Prednisone (Prednisone) 60 mg PO 1200 [facility] Last Admin: 02/28/20 12:30 Dose: 60 mg Sodium Chloride (Flush - Normal Saline) 10 ml IVF Q12HR [facility] Last Admin: 02/28/20 08:35 Dose: 10 ml Sodium Chloride (Flush - Normal Saline) 10 ml IVF PRN PRN PRN Reason: Saline Flush Tamsulosin HCl (Flomax) 0.4 mg PO HS [facility] Last Admin: 02/27/20 21:22 Dose: 0.4 mg Tramadol HCl (Ultram) 100 mg PO Q6H PRN PRN Reason: Pain Last Admin: 02/27/20 01:06 Dose: 100 mg Vital Signs & Weight: Vital Signs Temp Pulse Resp BP Pulse Ox 02/28/20 07:36 97.6 F 83 16 115/75 98 02/28/20 04:00 97.7 F 83 18 108/68 100 Admit Weight 161 lb Weight 161 lb 13.109 oz - Physical Exam General: alert & oriented x3 HEENT: mucus membranes moist Neck: supple neck Cardiac: regular rate and rhythm Lungs: normal breath sounds Neuro: grossly intact Abdomen: active bowel sounds Extremities: 1+ LE edema Skin: clear Musculoskeletal: no pain - Labs Result Diagrams: 02/28/20 04:23 02/28/20 04:23 Troponin/CKMB CK-MB (CK-2) 17.3 ng/mL (0-6.6) H* 02/25/20 15:19 Troponin I 2.141 ng/mL (< 0.028) H* 02/25/20 20:07 - Telemetry Sinus rhythms and dysrhythmias: sinus rhythm - Assessment/Plan Assessment/Plan: 1. AMS 2. Dilated CM EF at 40-45% on echo today. 3. NSTEMI, demand ischemia, Type 2 UT 4. Sigmoid diverticulitis 5. Septic shock, improved. 6. Severe deconditioning 7. CARL on CKD 8//. Right LE DVT PLAN: - No invasive interventions at this time. - Diarrhea aviles snot had blood in last 2 days. Hs tolerated SQ lovenox. Would start full anticoagulation for DVT - Will start very low meier BB today. ACEI in next few days if BP tolerates.
[2020-02-28] MEDS: Enoxaparin Sodium 80 MG/0.8 ML SYRINGE SC SCH (21:43)
[2020-02-28] MEDS: Tamsulosin HCl 0.4 MG CAP PO SCH (21:43)
[2020-02-28] MEDS: Atorvastatin Calcium 20 MG TAB PO SCH (21:43)
--- NOTE | 2020-02-29 05:58 | PDOC.FM ---
- Subjective Subjective: Patient denies headache, chest pain, SOB or abdominal pain. He reports 1 BM yesterday that was loose with no blood noted. He says the right leg pain has improved. The patient said he wants to go home and feels "pretty good" about being able to take his medications properly. Concerns about his disease progression, increased hospitalization rate and inability to care for himself properly were expressed. He stated he knew the risk and wanted to go home. - Objective MAR Reviewed: Yes Vital Signs & Weight: Vital Signs (12 hours) Temp Pulse Resp BP Pulse Ox 02/29/20 03:36 98.2 F 85 18 125/75 96 02/28/20 19:56 99.0 F 91 18 111/65 98 Weight Admit Weight 73.028 kg Weight 73.4 kg Most Recent Monitor Data Heart Rate from ECG 84 NIBP 109/71 NIBP BP-Mean 83 Respiration from ECG 40 SpO2 100 I&O: 02/27/20 02/28/20 02/29/20 06:59 06:59 06:59 Intake Total 3431 1520 1050 Output Total 3380 1800 1175 Balance 51 -280 -125 Result Diagrams: 02/29/20 07:21 02/29/20 07:21 Phys Exam - Physical Examination Constitutional: NAD HEENT: moist MMs, sclera anicteric Neck: supple, full ROM Respiratory: no wheezing, clear to auscultation bilateral Cardiovascular: RRR, no significant murmur Gastrointestinal: soft, positive bowel sounds Musculoskeletal: pulses present 2+ pitting edema, increased on R leg. Erythema, R leg. No warmth Neurological: moves all 4 limbs Lymphatic: no nodes Psychiatric: normal affect, A&O x 3 Skin: no rash, normal turgor Dx/Plan - Plan Plan: 1. 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 Patient initially admitted for possible septic shock 2/2 diverticulitis and UTI. Right femoral central line placed in ED on 02/24. Patient was hypotensive requiring Levophed gtt. WBC 20 upon admission. Received 5L NS fluid resuscitation and zosyn in the ED. Levophed drip turned off at 0400 on 02/25 with BP stable since. Since patient is not in DKA, protocol discontinued. Zosyn discontinued 02/26. Family brought anakinra to the hospital on 02/27 pm. -Continue home dose oral steroids -Begin home dose anakinra -CBC, CMP daily -Monitor strict I/Os 2. 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 Elevated B hydroxybutyrate 0.8. DKA protocol initiated and patient placed on insulin drip. Corrected anion gap 15 so protocol discontinued. Patient weaned off drip and placed on glargine with SSI. Glucose 178, 64, 153 over past 24 hours. -Decrease lantus from 35 to 33 units daily -Humalog SS 3. UTI UA on admission with + glucose, WBC, RBC and +1 bacteria. Questionable history of MDR E.coli and Klebsiella in the past, although ultimately attributed to contamination. One culture with MRSA 6 months ago. Urine culture grew emiliano albucans at 48 hours. -Given 1 dose of diflucan on 02/26 -DC dobbins 4. Sigmoid diverticulitis WBC 20. CT abdomen suggestive of diverticulitis. Diarrhea initially reported with some blood present, changed to watery diarrhea. C.diff negative. Stool studies negative. No further episodes of hematochezia reported past day. Loose stool this am. -Rectal tube in place 5. NSTEMI Type 2 from demand ischemia Initial trop 2.293, stable x 3 checks. Initial EKG showed sinus tach with T wave conversions in III and aVF. Cardio consulted and warned against lovenox due to blood in diarrhea. Echo on 02/26 showed EF 40-45% with diastolic dysfunction. BP 110s-120s systolic. -ASA -Continue atorvastatin 40mg -F/u cardio recs 6. DVT, right popliteal vein Patient noted to have right lower extremity edema worsen than the left with erythema. US BLE showed DVT in right popliteal vein. -Continue lovenox 70mg BID 8. Acute renal insufficiency, improved Likely due to diarrhea and intravascular volume depletion in the setting of encephalopathy. Bilateral renal cysts 2.8mm and 2.6mm as well as nephrolithiasis seen on CT. Baseline GFR > 90. Creatinine has improved from 3.21 on admission to 1.19. -Monitor morning labs 9. Transaminitis Likely due to hypotension and septic shock. Ast 216, ALT 154, alk phos 127 on admission. -Monitor with am labs 10. Pressure ulcers Multiple in groin and sacral area. -F/u wound care recs 11. Adult Stills Disease Unclear compliance with home medication. Non-compliance has affected mental status in the past. Anakinra not available in hospital. -Begin Anakinra this am 12. Combined CHF Echo on 02/26 showed EF 40-45% with diastolic dysfunction. -Monitor for symptoms of volume overload 13. BPH -Continue tamsulosin Social considerations: ZULEYKA is daughter, Akilah Nunez ([phone]) who lives in [place]. Patient living with aunt, Cathy Hinds ([phone]), who is also train station agent for another family member. Consulted palliative care team who the patient has seen on several admissions. Consulted CM for placement since patient has a history of missing doses with resulting repeat admissions and is unsafe to live alone. Patient states he is currently not interested in placement and wishes to go home. Code: Full PCP: Melanie Boyce Lines/Tubes: 2 peripheral IVs Dispo: Guarded. Will need placement upon discharge if agreeable as patient has had several admissions often due to medication noncompliance and resulting disease progression. Addendum - Attending - Attending Attestation Date/Time: 02/29/20 1191 I personally evaluated the patient and discussed the management with Dr. Comer. I agree with the History, Examination, Assessment and Plan documented above with any addition or exceptions noted below. Patient stable. Working on getting placement to prevent recurrent bouncebacks but once again the patient is resistant. Will check on status of APS consult.
[2020-02-29 07:51] LABS: ALT (SGPT) 121 U/L (8-55); AST (SGOT) 32 U/L (5-34); Albumin 2.6 g/dL (3.5-5.0); Alkaline Phosphatase 102 U/L (40-110); Anion Gap 10 mmol/L (10-20); BUN (Urea Nitrogen) 17 mg/dL (8.4-25.7); Bilirubin, Total 0.6 mg/dL (0.2-1.2); Calc. Creatinine Clearance 91 mL/min (70-130); Calcium 7.9 mg/dL (7.8-10.44); Carbon Dioxide 24 mmol/L (22-29); Chloride 113 mmol/L (98-107); Estimated GFR-MDRD Greater than 90; Globulin 2.3 g/dL (2.4-3.5); Glucose 114 mg/dL (70-105); Potassium 3.1 mmol/L (3.5-5.1); Protein, Total 4.9 g/dL (6.0-8.3); Sodium 144 mmol/L (136-145)
[2020-02-29 08:14] LABS: Hemoglobin 11.7 g/dL (14.0-18.0); Lymphocytes 13 % (21-51); MDiff Complete? YES; Mean Corpuscular HGB CONC 32.7 g/dL (32.0-36.0); Mean Corpuscular Hemoglobin 29.7 pg (27.0-31.0); Mean Corpuscular Volume 90.9 fL (78.0-98.0); Mean Platelet Volume 9.5 fL (7.4-10.4); Monocytes 4 % (0-10); Neutrophil 83 % (42-75); Platelet Count 98 thou/uL (130-400); Platelet Morphology Comment Appears Decreased; RBC Distribution Width 16.5 % (11.5-14.5); RBC Morphology Normal; Red Blood Cell (RBC) Count 3.94 mill/uL (4.70-6.10); White Blood Cell (WBC) Count 6.9 thou/uL (4.8-10.8)
[2020-02-29] MEDS: Alogliptin 25 MG TAB PO SCH (08:21)
[2020-02-29] MEDS: Ezetimibe 10 MG TAB PO SCH (08:21)
[2020-02-29] MEDS: Multivitamin W/ Minerals 1 TAB PO SCH (08:21)
[2020-02-29] MEDS: Clotrimazole 1% Cream 15 GM TUBE TOP SCH (08:23)
[2020-02-29] MEDS: HumaLOG 300 UNITS/3 ML VIAL SC SCH ×3 (08:25→17:30)
[2020-02-29] MEDS ORDERED: Potassium Chloride 20 MEQ TAB PO SCH (09:15)
[2020-02-29] MEDS: Insulin Glargine 33 UNITS in Pre-Filled Syringe 1 EACH SC SCH (09:42)
[2020-02-29] MEDS: Enoxaparin Sodium 80 MG/0.8 ML SYRINGE SC SCH ×2 (09:42→20:21)
[2020-02-29] MEDS ORDERED: Magnesium 2 GM/50 ML 2 GM in Premix Bag 1 BAG IVPB SCH (10:30)
[2020-02-29] MEDS: predniSONE 20 MG TAB PO SCH (11:26)
--- NOTE | 2020-02-29 13:51 | PDOC.FMACP ---
Advance Care Planning - Problem (1) Acute kidney failure Status: Acute (2) Addisonian crisis Status: Acute Code(s): E27.2 - ADDISONIAN CRISIS (3) Adrenal insufficiency Status: Acute Code(s): E27.40 - UNSPECIFIED ADRENOCORTICAL INSUFFICIENCY (4) Palliative care encounter Status: Acute Code(s): Z51.5 - ENCOUNTER FOR PALLIATIVE CARE (5) Adult Still's disease Status: Chronic Code(s): M06.1 - ADULT-ONSET STILL'S DISEASE - Note Participants: patient, palliative care Summary: Revisited Advanced Care Planning, allowed an opportunity to decline. The diagnosis, prognosis and goals of care were discussed. Appropriate forms and documentation to accomplish the goals of care were discussed. All questions were answered. Confirms that his MPOA remains correct as documented in chart, listing his daughter as primary MPOA. Revisited Directive to Physician and encouraged patient to thoughtful consider, he is open to further discussing. The Palliative Care Team will be engaged to assist with completion of any outstanding forms as patient desires to complete. Confirmed full resuscitation. Time Spent (mins): 20
--- NOTE | 2020-02-29 13:54 | PDOC.PALPN ---
Palliative Progress Note - Subjective Awake, alert. Frustrated with recurrent hospitalizations and isolation secondary to Covid. - Objective Vital Signs: Vital Signs - Most Recent Temp Pulse Resp BP Pulse Ox 98.2 F 93 16 121/75 100 02/29/20 11:42 02/29/20 11:42 02/29/20 11:42 02/29/20 11:42 02/29/20 11:42 - Physical Exam Constitutional: ill appearing HEENT: moist MMs Respiratory: clear to auscultation bilateral, no wheezing Cardiovascular: RRR Gastrointestinal: non-tender Genitourinary: dobbins catheter Musculoskeletal: diffuse muscle atrophy Neurology: moves all 4 limbs Skin: fragile Psychiatric: A&O x 3, depressed - Assessment (1) Acute kidney failure Status: Acute (2) Addisonian crisis Code(s): E27.2 - ADDISONIAN CRISIS Status: Acute (3) Adrenal insufficiency Code(s): E27.40 - UNSPECIFIED ADRENOCORTICAL INSUFFICIENCY Status: Acute (4) Palliative care encounter Code(s): Z51.5 - ENCOUNTER FOR PALLIATIVE CARE Status: Acute (5) 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 DISEASE Status: Chronic - Plan Plan: Patient followed at home with Home Health and [facility] Nurse Practitioner Janine CONTRERAS. Janine Coyne confirms that patient has been compliant in the home setting with medicaiton compliance. Also confirms home setting is well equipped with supportive resources. Patient frustrated with recurrent hospital stays. In discussing Stills disease he requested more information as he relayed that he does not fully understand the disease. PC will provide further education in relation to disease process. Discussed what is important, he confirms that it is suggested to transition to a skilled setting. He is only open to this for a short period of time. Discussed his fragile state and that this may provide a higher level of care to prevent recurrent hospitalization. Emotional support offered. Please also refer to Palliative Care RN notes in note section. Goal of Care: 1) Improve understanding of Stills Disease and complications that parallel, as well a impact with multiple morbidities 2) Agreeable to transition for a short length of time to a skilled setting [30] minutes spent on this encounter with >50% of the time in counseling and coordination of care. - ROS Constitutional: weakness ENT: other (denies difficulity swallowing) Respiratory: other (denies cough congestion) Cardiology: other (denies chest pain or palpitations) Musculoskeletal: arthritis/arthralgias Psychological: other (frustration with isolation)
--- NOTE | 2020-02-29 14:33 | PDOC.CPN ---
- Subjective Date: 02/29/20 Time: 14:44 Interval history: The pt seen and examined. No overnight events. No cardiac complaints. - Objective Allergies/Adverse Reactions: Allergies Allergy/AdvReac Type Severity Reaction Status Date / Time vancomycin Allergy Intermediate Verified 01/07/20 20:03 Visit Medications: Current Medications Alogliptin Benzoate (Alogliptin) 25 mg PO DAILY [facility] Last Admin: 02/29/20 08:21 Dose: 25 mg Atorvastatin Calcium (Lipitor) 40 mg PO HS [facility] Last Admin: 02/28/20 21:43 Dose: 40 mg Clotrimazole (Lotrimin 1% Cream) 0 gm TOP DAILY [facility] Last Admin: 02/29/20 08:23 Dose: 1 applic Dextrose/Water (Dextrose 50%) 25 gm SLOW IVP PRN PRN PRN Reason: Hypoglycemia Ezetimibe (Zetia) 10 mg PO QAM [facility] Last Admin: 02/29/20 08:21 Dose: 10 mg Enoxaparin Sodium (Lovenox) 70 mg SC 0900,2100 [facility] Last Admin: 02/29/20 09:42 Dose: 70 mg Glucagon (Glucagon) 1 mg IM PRN PRN PRN Reason: Hypoglycemia Dextrose/Water (D5w) 1,000 mls @ 0 mls/hr IV .Q0M PRN PRN Reason: Hypoglycemia Insulin Glargine 33 units/ (Miscellaneous Medication) 0.33 mls @ 0 mls/hr SC QAM [facility] Last Admin: 02/29/20 09:42 Dose: 0.33 mls Insulin Human Lispro (Humalog) 0 units SC .MODERATE SLIDING SC PRN PRN Reason: Moderate Correctional Scale Last Admin: 02/28/20 11:06 Dose: 2 unit Insulin Human Lispro (Humalog) 0 units SC .BEDTIME SLIDING SC PRN PRN Reason: Bedtime Correctional Scale Insulin Human Lispro (Humalog) 10 units SC AC [facility] Last Admin: 02/29/20 12:06 Dose: 10 unit Iron/Minerals/Multivitamins (Theragran M) 1 tab PO DAILY [facility] Last Admin: 02/29/20 08:21 Dose: 1 tab Miscellaneous Medication (Electrolyte Replacement Protocol) 0 each FS ASDIR PRN ; Protocol PRN Reason: ELECTROLYTE REPLACEMENT Pantoprazole Sodium (Protonix) 40 mg PO DAILY [facility] Last Admin: 02/29/20 08:21 Dose: 40 mg Anakinra [Kineret] (100 Mg) Inj) 0 each SC QPM [facility] Last Admin: 02/28/20 21:47 Dose: Not Given Prednisone (Prednisone) 60 mg PO 1200 [facility] Last Admin: 02/29/20 11:26 Dose: 60 mg Sodium Chloride (Flush - Normal Saline) 10 ml IVF Q12HR [facility] Last Admin: 02/29/20 08:23 Dose: 10 ml Sodium Chloride (Flush - Normal Saline) 10 ml IVF PRN PRN PRN Reason: Saline Flush Tamsulosin HCl (Flomax) 0.4 mg PO HS [facility] Last Admin: 02/28/20 21:43 Dose: 0.4 mg Tramadol HCl (Ultram) 100 mg PO Q6H PRN PRN Reason: Pain Last Admin: 02/27/20 01:06 Dose: 100 mg Vital Signs & Weight: Vital Signs Temp Pulse Resp BP Pulse Ox 02/29/20 11:42 98.2 F 93 16 121/75 100 02/29/20 08:18 98.1 F 87 16 132/69 99 02/29/20 03:36 98.2 F 85 18 125/75 96 Admit Weight 161 lb 13.109 oz Weight 161 lb 13.109 oz - Physical Exam General: alert & oriented x3 HEENT: mucus membranes moist Neck: supple neck Cardiac: regular rate and rhythm, S1/S2 Lungs: decreased breath sounds Extremities: no edema - Labs Result Diagrams: 02/29/20 07:21 02/29/20 07:21 Troponin/CKMB CK-MB (CK-2) 17.3 ng/mL (0-6.6) H* 02/25/20 15:19 Troponin I 2.141 ng/mL (< 0.028) H* 02/25/20 20:07 - Telemetry Sinus rhythms and dysrhythmias: sinus rhythm - Assessment/Plan Assessment/Plan: 1. AMS - improved 2. Dilated CMY with EF 40-45% 4. Chronic combined CHF with EF 40-45% and dastolic dysfunction on 02/27/2020 - stable without diuretic; will start BBlocker or DONYA/ARB once his VS is more stable; n 3. NSTEMI, demand ischemia, Type 2 [place] 2/2 septic shock 4. Sigmoid diverticulitis - no bleeding 5. Septic shock, improved. 6. Severe deconditioning 7. CARL on CKD -s table 8. RLE DVT - on Lovenox 70mg BID (according to his home med, he was on Xarelto 20mg qd) 9. Insulin dependent DM MAR reviewed * Dr Rosa's pt Pt. seen and eval. by me. I agree with the A/P by the GENERAL PRACTICE. He says he is feeling much better than when he was admitted. He is walking in the room and has no c/o' s. Chest clear. RRR. gjm
[2020-02-29] MEDS: Atorvastatin Calcium 20 MG TAB PO SCH (20:23)
[2020-02-29] MEDS: Tamsulosin HCl 0.4 MG CAP PO SCH (20:23)
[2020-02-29] MEDS: ANAKINRA 100 MG SCH (20:24)
[2020-03-01 05:20] LABS: ALT (SGPT) 93 U/L (8-55); AST (SGOT) 24 U/L (5-34); Albumin 2.6 g/dL (3.5-5.0); Alkaline Phosphatase 99 U/L (40-110); Anion Gap 10 mmol/L (10-20); BUN (Urea Nitrogen) 14 mg/dL (8.4-25.7); Bilirubin, Total 0.5 mg/dL (0.2-1.2); Calc. Creatinine Clearance 88 mL/min (70-130); Calcium 7.3 mg/dL (7.8-10.44); Carbon Dioxide 26 mmol/L (22-29); Chloride 111 mmol/L (98-107); Estimated GFR-MDRD Greater than 90; Globulin 2.3 g/dL (2.4-3.5); Glucose 148 mg/dL (70-105); Potassium 3.2 mmol/L (3.5-5.1); Protein, Total 4.9 g/dL (6.0-8.3); Sodium 144 mmol/L (136-145)
[2020-03-01 05:26] LABS: Band 9 % (5-11); Hemoglobin 10.9 g/dL (14.0-18.0); Lymphocytes 18 % (21-51); MDiff Complete? YES; Mean Corpuscular Hemoglobin 29.7 pg (27.0-31.0); Mean Platelet Volume 9.4 fL (7.4-10.4); Monocytes 13 % (0-10); Neutrophil 60 % (42-75); Platelet Count 99 thou/uL (130-400); Platelet Morphology Comment Appears Decreased; RBC Distribution Width 16.6 % (11.5-14.5); RBC Morphology Normal; Red Blood Cell (RBC) Count 3.67 mill/uL (4.70-6.10); White Blood Cell (WBC) Count 5.3 thou/uL (4.8-10.8)
--- NOTE | 2020-03-01 06:16 | PDOC.FM ---
- Subjective Subjective: The patient denies right leg pain and notes the edema has improved. He denies headache, chest pain, SOB or abdominal pain. He says he is willing to go to rehab for a short while after discharge and would like to speak with CM about options. - Objective MAR Reviewed: Yes Vital Signs & Weight: Vital Signs (12 hours) Temp Pulse Resp BP Pulse Ox 03/01/20 03:50 98.6 F 89 16 110/63 99 02/29/20 23:10 98 F 93 16 126/71 99 02/29/20 19:45 98.4 F 95 16 120/72 95 Weight Admit Weight 73.4 kg Weight 71.94 kg Most Recent Monitor Data Heart Rate from ECG 84 NIBP 109/71 NIBP BP-Mean 83 Respiration from ECG 40 SpO2 100 I&O: 02/28/20 02/29/20 03/01/20 06:59 06:59 06:59 Intake Total 1520 1290 1050 Output Total 1800 1475 845 Balance -280 -185 205 Result Diagrams: 03/01/20 04:43 03/01/20 04:43 Phys Exam - Physical Examination Constitutional: NAD HEENT: moist MMs, sclera anicteric Neck: supple, full ROM Respiratory: no wheezing, clear to auscultation bilateral Cardiovascular: RRR, no significant murmur Gastrointestinal: soft, no distention, positive bowel sounds Musculoskeletal: pulses present, edema present 2+ pitting edema, right LE. No erythema present. Neurological: moves all 4 limbs Lymphatic: no nodes Psychiatric: normal affect, A&O x 3 Skin: no rash, normal turgor Dx/Plan - Plan Plan: 1. 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 Patient initially admitted for possible septic shock 2/2 diverticulitis and UTI. Right femoral central line placed in ED on 02/24. Patient was hypotensive requiring Levophed gtt. WBC 20 upon admission. Received 5L NS fluid resuscitation and zosyn in the ED. Levophed drip turned off at 0400 on 02/25 with BP stable since. Since patient is not in DKA, protocol discontinued. Zosyn discontinued 02/26. -Continue home dose oral steroids -Anakinra still not brought from home despite numerous attempts to contact family -CBC, CMP daily -Monitor strict I/Os 2. 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 Elevated B hydroxybutyrate 0.8. DKA protocol initiated and patient placed on insulin drip. Corrected anion gap 15 so protocol discontinued. Patient weaned off drip and placed on glargine with SSI. Glucose ranged 101-192 over past 24 hours. -Continue lantus 33 units daily -Humalog SS 3. UTI UA on admission with + glucose, WBC, RBC and +1 bacteria. Questionable history of MDR E.coli and Klebsiella in the past, although ultimately attributed to contamination. One culture with MRSA 6 months ago. Urine culture grew emiliano albucans at 48 hours. Patient I/O cath on 02/28 produced 600mL urine. Now using bedside urinal. -Given 1 dose of diflucan on 02/26 -Napier discontinued 02/28 4. Sigmoid diverticulitis WBC 20. CT abdomen suggestive of diverticulitis. Diarrhea initially reported with some blood present, changed to watery diarrhea. C.diff negative. Stool studies negative. No further episodes of hematochezia reported 3 days. No diarrhea in 24 hours. -Rectal tube discontinued 02/28 5. NSTEMI Type 2 from demand ischemia Initial trop 2.293, stable x 3 checks. Initial EKG showed sinus tach with T wave conversions in III and aVF. Cardio consulted and warned against lovenox due to blood in diarrhea. Echo on 02/26 showed EF 40-45% with diastolic dysfunction. BP 110s-120s systolic. Will hold off on BP medications until BP improves, per cardio. -ASA -Continue atorvastatin 40mg 6. DVT, right popliteal vein US BLE showed DVT in right popliteal vein. Right lower extremity edema has improved. Erythema resolved. -Continue lovenox 70mg BID 8. Acute renal insufficiency, resolved Likely due to diarrhea and intravascular volume depletion in the setting of encephalopathy. Bilateral renal cysts 2.8mm and 2.6mm as well as nephrolithiasis seen on CT. Baseline GFR > 90. Creatinine has improved from 3.21 on admission to 0.92. -Monitor 9. Transaminitis Likely due to hypotension and septic shock. Ast 216, ALT 154, alk phos 127 on admission. -Monitor with am labs 10. Pressure ulcers Multiple in groin and sacral area. -F/u wound care recs 11. Adult Stills Disease Unclear compliance with home medication. Non-compliance has affected mental status in the past. Anakinra not available in hospital. -Unable to obtain Anakinra from family 12. Combined CHF Echo on 02/26 showed EF 40-45% with diastolic dysfunction. -Monitor for symptoms of volume overload 13. BPH -Continue tamsulosin 14. Hypokalemia K 3.2, down from 3.5 yesterday. -40 mEq K Social considerations: ZULEYKA is daughter, Akilah Nunez ([phone]) who lives in [place]. Patient living with aunt, Cathy Hinds ([phone]), who is also hydroelectric systems technician for another family member. Consulted palliative care team who the patient has seen on several admissions. Consulted CM for placement since patient has a history of missing doses with resulting repeat admissions and is unsafe to live alone. Patient met with palliative and stated he was amendable to rehab for a short while. Rehab screen placed. Code: Full PCP: Melanie Boyce Lines/Tubes: 2 peripheral IVs Dispo: Guarded. Patient agreed to rehab placement upon discharge given increased rate of hospitalizations often due to medication noncompliance and resulting disease progression. Addendum - Attending - Attending Attestation Date/Time: 03/01/20 4154 I personally evaluated the patient and discussed the management with Dr. Comer. I agree with the History, Examination, Assessment and Plan documented above with any addition or exceptions noted below. Patient overall doing well. Awaiting home Anakinra dose to ensure he actually has it available. Working on placement as he has deemed himself unable to care for himself based on recurrent admission.s
[2020-03-01] MEDS ORDERED: Potassium Chloride 20 MEQ TAB PO SCH (06:45)
[2020-03-01] MEDS: Multivitamin W/ Minerals 1 TAB PO SCH (08:24)
[2020-03-01] MEDS: Insulin Glargine 33 UNITS in Pre-Filled Syringe 1 EACH SC SCH (08:24)
[2020-03-01] MEDS: Alogliptin 25 MG TAB PO SCH (08:24)
[2020-03-01] MEDS: Ezetimibe 10 MG TAB PO SCH (08:24)
[2020-03-01] MEDS: HumaLOG 300 UNITS/3 ML VIAL SC SCH ×3 (08:25→17:05)
[2020-03-01] MEDS: Clotrimazole 1% Cream 15 GM TUBE TOP SCH (08:25)
[2020-03-01] MEDS: Enoxaparin Sodium 80 MG/0.8 ML SYRINGE SC SCH ×2 (08:25→21:02)
[2020-03-01] MEDS: predniSONE 20 MG TAB PO SCH (11:27)
--- NOTE | 2020-03-01 14:25 | PDOC.CPN ---
- Subjective Date: 03/01/20 Time: 14:28 Interval history: The pt seen and examined. No overnight events. No cardiac complaints. - Objective Allergies/Adverse Reactions: Allergies Allergy/AdvReac Type Severity Reaction Status Date / Time vancomycin Allergy Intermediate Verified 01/07/20 20:03 Visit Medications: Current Medications Alogliptin Benzoate (Alogliptin) 25 mg PO DAILY [facility] Last Admin: 03/01/20 08:24 Dose: 25 mg Atorvastatin Calcium (Lipitor) 40 mg PO HS [facility] Last Admin: 02/29/20 20:23 Dose: 40 mg Clotrimazole (Lotrimin 1% Cream) 0 gm TOP DAILY [facility] Last Admin: 03/01/20 08:25 Dose: 1 applic Dextrose/Water (Dextrose 50%) 25 gm SLOW IVP PRN PRN PRN Reason: Hypoglycemia Ezetimibe (Zetia) 10 mg PO QAM [facility] Last Admin: 03/01/20 08:24 Dose: 10 mg Enoxaparin Sodium (Lovenox) 70 mg SC 0900,2100 [facility] Last Admin: 03/01/20 08:25 Dose: 70 mg Glucagon (Glucagon) 1 mg IM PRN PRN PRN Reason: Hypoglycemia Dextrose/Water (D5w) 1,000 mls @ 0 mls/hr IV .Q0M PRN PRN Reason: Hypoglycemia Insulin Glargine 33 units/ (Miscellaneous Medication) 0.33 mls @ 0 mls/hr SC QAM [facility] Last Admin: 03/01/20 08:24 Dose: 0.33 mls Insulin Human Lispro (Humalog) 0 units SC .MODERATE SLIDING SC PRN PRN Reason: Moderate Correctional Scale Last Admin: 02/28/20 11:06 Dose: 2 unit Insulin Human Lispro (Humalog) 0 units SC .BEDTIME SLIDING SC PRN PRN Reason: Bedtime Correctional Scale Insulin Human Lispro (Humalog) 10 units SC AC [facility] Last Admin: 03/01/20 11:27 Dose: 10 unit Iron/Minerals/Multivitamins (Theragran M) 1 tab PO DAILY [facility] Last Admin: 03/01/20 08:24 Dose: 1 tab Miscellaneous Medication (Electrolyte Replacement Protocol) 0 each FS ASDIR PRN ; Protocol PRN Reason: ELECTROLYTE REPLACEMENT Pantoprazole Sodium (Protonix) 40 mg PO DAILY [facility] Last Admin: 03/01/20 08:24 Dose: 40 mg Anakinra [Kineret] (100 Mg) Inj) 0 each SC QPM [facility] Last Admin: 02/29/20 20:24 Dose: Not Given Prednisone (Prednisone) 60 mg PO 1200 [facility] Last Admin: 03/01/20 11:27 Dose: 60 mg Sodium Chloride (Flush - Normal Saline) 10 ml IVF Q12HR [facility] Last Admin: 03/01/20 08:26 Dose: 10 ml Sodium Chloride (Flush - Normal Saline) 10 ml IVF PRN PRN PRN Reason: Saline Flush Tamsulosin HCl (Flomax) 0.4 mg PO HS [facility] Last Admin: 02/29/20 20:23 Dose: 0.4 mg Tramadol HCl (Ultram) 100 mg PO Q6H PRN PRN Reason: Pain Last Admin: 02/27/20 01:06 Dose: 100 mg Vital Signs & Weight: Vital Signs Temp Pulse Resp BP Pulse Ox 03/01/20 11:24 99.4 F 86 18 128/70 93 L 03/01/20 08:20 98.9 F 87 18 121/70 18 L 03/01/20 03:50 98.6 F 89 16 110/63 99 Admit Weight 161 lb 13.109 oz Weight 158 lb 9.6 oz - Physical Exam General: alert & oriented x3 Neck: supple neck Cardiac: regular rate and rhythm, S1/S2 Lungs: decreased breath sounds Neuro: cranial nerve 2-12 intact Extremities: no edema Skin: clear - Labs Result Diagrams: 03/01/20 04:43 03/01/20 04:43 Troponin/CKMB CK-MB (CK-2) 17.3 ng/mL (0-6.6) H* 02/25/20 15:19 Troponin I 2.141 ng/mL (< 0.028) H* 02/25/20 20:07 - Telemetry Sinus rhythms and dysrhythmias: sinus rhythm - Assessment/Plan Assessment/Plan: 1. AMS - improved 2. Dilated CMY with EF 40-45% 4. Chronic combined CHF with EF 40-45% and diastolic dysfunction on 02/27/2020 - stable without diuretic; will start BBlocker or DONYA/ARB once his VS is more stable; 3. NSTEMI with demand ischemia type 2 2/2 septic shock 4. Sigmoid diverticulitis - no bleeding 5. Septic shock - improved. 6. Severe deconditioning 7. CARL on CKD -stable 8. RLE DVT - on Lovenox 70mg BID (according to his home med, he was on Xarelto 20mg qd) 9. Insulin dependent DM 10. non-compliance of medication MAR reviewed * Dr Rosa's pt * Waiting for rehab replacement? Pt. seen and eval. by me. I agree with the A/P by the TRANSVERSE ABDOMINAL MUSCLE NURSE. He is feeling much better. Chest clear. RRR. No edema. gjm
[2020-03-01] MEDS: Tamsulosin HCl 0.4 MG CAP PO SCH (21:02)
[2020-03-01] MEDS: Atorvastatin Calcium 20 MG TAB PO SCH (21:02)
[2020-03-01] MEDS: ANAKINRA 100 MG SCH (21:03)
[2020-03-01] MEDS: HumaLOG 300 UNITS/3 ML VIAL SC PRN (21:04)
--- NOTE | 2020-03-02 06:07 | PDOC.FM ---
- Subjective Subjective: Patient says he is ready to be transferred and work with the rehab team. He says his right leg is no longer painful or swollen. He denies sweating, headache , vision changes, chest pain, SOB and abdominal pain. - Objective MAR Reviewed: Yes Vital Signs & Weight: Vital Signs (12 hours) Temp Pulse Resp BP Pulse Ox 03/02/20 04:00 98.0 F 82 18 136/75 100 03/01/20 23:45 98.5 F 100 20 142/74 H 96 03/01/20 19:50 98.2 F 97 20 174/83 H 98 Weight Admit Weight 73.4 kg Weight 70.261 kg Most Recent Monitor Data Heart Rate from ECG 84 NIBP 109/71 NIBP BP-Mean 83 Respiration from ECG 40 SpO2 100 I&O: 02/29/20 03/01/20 03/02/20 06:59 06:59 06:59 Intake Total 1290 1550 720 Output Total 1475 1745 Balance -185 -195 720 Result Diagrams: 03/01/20 04:43 03/01/20 04:43 Phys Exam - Physical Examination Constitutional: NAD HEENT: moist MMs, sclera anicteric Neck: supple, full ROM Respiratory: no wheezing, clear to auscultation bilateral Cardiovascular: RRR, no significant murmur Gastrointestinal: soft, positive bowel sounds Musculoskeletal: no edema, pulses present No erythema or edema on lower extremities Neurological: moves all 4 limbs Lymphatic: no nodes Psychiatric: normal affect, A&O x 3 Skin: no rash, normal turgor Dx/Plan - Plan Plan: 1. 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 Patient initially admitted for possible septic shock 2/2 diverticulitis and UTI. Right femoral central line placed in ED on 02/24. Patient was hypotensive requiring Levophed gtt. WBC 20 upon admission. Received 5L NS fluid resuscitation and zosyn in the ED. Levophed drip turned off at 0400 on 02/25 with BP stable since. Since patient is not in DKA, protocol discontinued. Zosyn discontinued 02/26. -Continue home dose oral steroids -Anakinra received from home and started last pm -CBC, CMP daily -Monitor strict I/Os 2. 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 Elevated B hydroxybutyrate 0.8. DKA protocol initiated and patient placed on insulin drip. Corrected anion gap 15 so protocol discontinued. Patient weaned off drip and placed on glargine with SSI. -Continue lantus 33 units daily -Humalog SS 3. UTI UA on admission with + glucose, WBC, RBC and +1 bacteria. Questionable history of MDR E.coli and Klebsiella in the past, although ultimately attributed to contamination. One culture with MRSA 6 months ago. Urine culture grew emiliano albucans at 48 hours. Patient I/O cath on 02/28 produced 600mL urine. Now using bedside urinal. -Given 1 dose of diflucan on 02/26 -Napier discontinued 02/28 4. Sigmoid diverticulitis WBC 20. CT abdomen suggestive of diverticulitis. Diarrhea initially reported with some blood present, changed to watery diarrhea. C.diff negative. Stool studies negative. No further episodes of hematochezia reported 3 days. No diarrhea in 24 hours. -Rectal tube discontinued 02/28 5. NSTEMI Type 2 from demand ischemia Initial trop 2.293, stable x 3 checks. Initial EKG showed sinus tach with T wave conversions in III and aVF. Cardio consulted and warned against lovenox due to blood in diarrhea. Echo on 02/26 showed EF 40-45% with diastolic dysfunction. BP 110s-120s systolic. Will hold off on BP medications until BP improves, per cardio. -ASA -Continue atorvastatin 40mg 6. DVT, right popliteal vein US BLE showed DVT in right popliteal vein. Right lower extremity edema has improved. Erythema resolved. -Continue lovenox 70mg BID -Will discharge on Xarelto 15mg BID for 21 days then 20mg once daily to complete 3 month course. 7. Transaminitis Likely due to hypotension and septic shock. Ast 216, ALT 154, alk phos 127 on admission. -Monitor with am labs 8. Pressure ulcers Multiple in groin and sacral area. -F/u wound care recs 9. Adult Stills Disease Unclear compliance with home medication. Non-compliance has affected mental status in the past. Anakinra not available in hospital. -Continue Anakinra 10. Combined CHF Echo on 02/26 showed EF 40-45% with diastolic dysfunction. -Monitor for symptoms of volume overload 11. BPH -Continue tamsulosin Social considerations: ZULEYKA is daughter, Akilah Nunez ([phone]) who lives in [place]. Patient living with aunt, Cathy Hinds ([phone]), who is also assembler garment form for another family member. Consulted palliative care team who the patient has seen on several admissions. Consulted CM for placement since patient has a history of missing doses with resulting repeat admissions and is unsafe to live alone. Patient met with palliative and stated he was amendable to rehab for a short while. Rehab screen placed. Code: Full PCP: Melanie Boyce Lines/Tubes: 2 peripheral IVs Dispo: Stable. Patient agreed to rehab placement upon discharge. Addendum - Attending - Attending Attestation Date/Time: 03/02/20 3628 I personally evaluated the patient and discussed the management with Dr. Comer. I agree with the History, Examination, Assessment and Plan documented above with any addition or exceptions noted below. Patient stable. Working on getting him to rehab to help with med compliance and deconditioning to prevent recurrent admissions.
[2020-03-02] MEDS: HumaLOG 300 UNITS/3 ML VIAL SC SCH ×3 (08:40→17:39)
[2020-03-02] MEDS: Enoxaparin Sodium 80 MG/0.8 ML SYRINGE SC SCH (08:41)
[2020-03-02] MEDS: Alogliptin 25 MG TAB PO SCH (08:41)
[2020-03-02] MEDS: Multivitamin W/ Minerals 1 TAB PO SCH (08:41)
[2020-03-02] MEDS: Insulin Glargine 33 UNITS in Pre-Filled Syringe 1 EACH SC SCH (08:41)
[2020-03-02] MEDS: Ezetimibe 10 MG TAB PO SCH (08:41)
[2020-03-02] MEDS: Clotrimazole 1% Cream 15 GM TUBE TOP SCH (08:42)
[2020-03-02] MEDS: HumaLOG 300 UNITS/3 ML VIAL SC PRN ×2 (11:23→20:26)
[2020-03-02] MEDS: predniSONE 20 MG TAB PO SCH (11:23)
[2020-03-02] MEDS: traMADol HCl 50 MG TAB PO PRN (13:58)
[2020-03-02] MEDS ORDERED: Acetaminophen 325 MG TAB PO SCH (16:15)
--- NOTE | 2020-03-02 16:47 | PDOC.CPN ---
- Subjective Date: 03/02/20 Time: 16:49 Interval history: The pt seen and examined. No overnight events. No cardiac complaints. - Objective Allergies/Adverse Reactions: Allergies Allergy/AdvReac Type Severity Reaction Status Date / Time vancomycin Allergy Intermediate Verified 01/07/20 20:03 Visit Medications: Current Medications Acetaminophen (Tylenol) 650 mg PO NOW [facility] Stop: 03/02/20 18:15 Alogliptin Benzoate (Alogliptin) 25 mg PO DAILY [facility] Last Admin: 03/02/20 08:41 Dose: 25 mg Atorvastatin Calcium (Lipitor) 40 mg PO HS [facility] Last Admin: 03/01/20 21:02 Dose: 40 mg Clotrimazole (Lotrimin 1% Cream) 0 gm TOP DAILY [facility] Last Admin: 03/02/20 08:42 Dose: 1 applic Dextrose/Water (Dextrose 50%) 25 gm SLOW IVP PRN PRN PRN Reason: Hypoglycemia Ezetimibe (Zetia) 10 mg PO QAM [facility] Last Admin: 03/02/20 08:41 Dose: 10 mg Enoxaparin Sodium (Lovenox) 70 mg SC 0900,2100 [facility] Last Admin: 03/02/20 08:41 Dose: 70 mg Glucagon (Glucagon) 1 mg IM PRN PRN PRN Reason: Hypoglycemia Dextrose/Water (D5w) 1,000 mls @ 0 mls/hr IV .Q0M PRN PRN Reason: Hypoglycemia Insulin Glargine 33 units/ (Miscellaneous Medication) 0.33 mls @ 0 mls/hr SC QAM [facility] Last Admin: 03/02/20 08:41 Dose: 0.33 mls Insulin Human Lispro (Humalog) 0 units SC .MODERATE SLIDING SC PRN PRN Reason: Moderate Correctional Scale Last Admin: 03/02/20 11:23 Dose: 6 unit Insulin Human Lispro (Humalog) 0 units SC .BEDTIME SLIDING SC PRN PRN Reason: Bedtime Correctional Scale Last Admin: 03/01/20 21:04 Dose: 4 unit Insulin Human Lispro (Humalog) 10 units SC AC [facility] Last Admin: 03/02/20 11:23 Dose: 10 unit Iron/Minerals/Multivitamins (Theragran M) 1 tab PO DAILY [facility] Last Admin: 03/02/20 08:41 Dose: 1 tab Miscellaneous Medication (Electrolyte Replacement Protocol) 0 each FS ASDIR PRN ; Protocol PRN Reason: ELECTROLYTE REPLACEMENT Pantoprazole Sodium (Protonix) 40 mg PO DAILY [facility] Last Admin: 03/02/20 08:41 Dose: 40 mg Anakinra [Kineret] (100 Mg) Inj) 0 each SC QPM [facility] Last Admin: 03/01/20 21:03 Dose: 1 each Prednisone (Prednisone) 60 mg PO 1200 [facility] Last Admin: 03/02/20 11:23 Dose: 60 mg Sodium Chloride (Flush - Normal Saline) 10 ml IVF Q12HR [facility] Last Admin: 03/02/20 08:41 Dose: 10 ml Sodium Chloride (Flush - Normal Saline) 10 ml IVF PRN PRN PRN Reason: Saline Flush Tamsulosin HCl (Flomax) 0.4 mg PO HS [facility] Last Admin: 03/01/20 21:02 Dose: 0.4 mg Tramadol HCl (Ultram) 100 mg PO Q6H PRN PRN Reason: Pain Last Admin: 03/02/20 13:58 Dose: 100 mg Vital Signs & Weight: Vital Signs Temp Pulse Resp BP Pulse Ox 03/02/20 11:24 98.7 F 94 16 124/74 99 03/02/20 08:05 99.3 F 94 16 136/75 100 Admit Weight 161 lb 13.109 oz Weight 154 lb 14.4 oz - Physical Exam General: alert & oriented x3 HEENT: mucus membranes moist Neck: supple neck Cardiac: regular rate and rhythm, S1/S2 Lungs: decreased breath sounds Extremities: no edema - Labs Result Diagrams: 03/01/20 04:43 03/01/20 04:43 Troponin/CKMB CK-MB (CK-2) 17.3 ng/mL (0-6.6) H* 02/25/20 15:19 Troponin I 2.141 ng/mL (< 0.028) H* 02/25/20 20:07 - Telemetry Sinus rhythms and dysrhythmias: sinus rhythm - Assessment/Plan Assessment/Plan: 1. AMS - improved 2. Dilated CMY with EF 40-45% 4. Chronic combined CHF with EF 40-45% and diastolic dysfunction on 02/27/2020 - stable without diuretic; will start Coreg 3.125mg BID from tonight. May start DONYA/ARB with stable VS with coreg 3. NSTEMI with demand ischemia type 2 2/2 septic shock 4. Sigmoid diverticulitis - no bleeding 5. Septic shock - improved. 6. Severe deconditioning 7. CARL on CKD -stable 8. RLE DVT - on Lovenox 70mg BID (according to his home med, he was on Xarelto 20mg qd) 9. Insulin dependent DM 10. non-compliance of medication MAR reviewed * Dr Rosa's pt * Waiting for rehab replacement? Pt. seen and eval. by me. I agree with the A/P by the MAINTENANCE MACHINIST. He is looking stronger each day and says he feels better. chest clear. RRR, gjm
[2020-03-02] MEDS: Tamsulosin HCl 0.4 MG CAP PO SCH (20:24)
[2020-03-02] MEDS: Rivaroxaban 15 MG TAB PO SCH (20:24)
[2020-03-02] MEDS: Carvedilol 3.125 MG TAB PO SCH (20:24)
[2020-03-02] MEDS: Atorvastatin Calcium 20 MG TAB PO SCH (20:24)
[2020-03-02] MEDS: ANAKINRA 100 MG SCH (20:25)
[2020-03-03 01:57] LABS: #Lymphocytes 1.3 thou/uL (1.20-3.40); #Monocytes 0.5 thou/uL (0.11-0.59); #Neutrophils 2.7 thou/uL (1.40-6.50); %Basophils 0.7 % (0.0-1.0); %Eosinophils 0.3 % (0.0-10.0); %Lymphocytes 27.5 % (21.0-51.0); %Monocytes 11.2 % (0.0-10.0); %Neutrophils 60.4 % (42.0-75.0); Hemoglobin 11.4 g/dL (14.0-18.0); Mean Corpuscular HGB CONC 33.3 g/dL (32.0-36.0); Mean Corpuscular Hemoglobin 30.1 pg (27.0-31.0); Mean Corpuscular Volume 90.1 fL (78.0-98.0); Mean Platelet Volume 9.7 fL (7.4-10.4); Platelet Count 129 thou/uL (130-400); RBC Distribution Width 16.8 % (11.5-14.5); White Blood Cell (WBC) Count 4.5 thou/uL (4.8-10.8)
[2020-03-03 02:19] LABS: Anion Gap 9 mmol/L (10-20); BUN (Urea Nitrogen) 16 mg/dL (8.4-25.7); Calc. Creatinine Clearance 84 mL/min (70-130); Calcium 8.1 mg/dL (7.8-10.44); Carbon Dioxide 31 mmol/L (22-29); Chloride 105 mmol/L (98-107); Estimated GFR-MDRD Greater than 90; Glucose 144 mg/dL (70-105); Potassium 4.1 mmol/L (3.5-5.1); Sodium 141 mmol/L (136-145)
--- NOTE | 2020-03-03 06:08 | PDOC.FM ---
- Subjective Subjective: Doing well this morning. No concerns. - Objective MAR Reviewed: Yes Vital Signs & Weight: Vital Signs (12 hours) Temp Pulse Resp BP Pulse Ox 03/03/20 03:43 98.5 F 79 18 126/73 99 03/02/20 19:20 98.0 F 99 18 108/58 L 98 Weight Admit Weight 73.4 kg Weight 71.305 kg Most Recent Monitor Data Heart Rate from ECG 84 NIBP 109/71 NIBP BP-Mean 83 Respiration from ECG 40 SpO2 100 I&O: 03/01/20 03/02/20 03/03/20 06:59 06:59 06:59 Intake Total 1550 1420 1080 Output Total 1745 950 500 Balance -195 470 580 Result Diagrams: 03/03/20 01:41 03/03/20 01:41 Phys Exam - Physical Examination Constitutional: NAD HEENT: moist MMs, sclera anicteric Neck: supple, full ROM Respiratory: no wheezing, clear to auscultation bilateral Cardiovascular: RRR, no significant murmur Gastrointestinal: soft, non-tender Musculoskeletal: no edema, pulses present Neurological: non-focal, moves all 4 limbs Psychiatric: normal affect, A&O x 3 Skin: no rash Dx/Plan (1) NSTEMI (non-ST elevated myocardial infarction) Code(s): I21.4 - NON-ST ELEVATION (NSTEMI) MYOCARDIAL INFARCTION Status: Acute (2) Sigmoid diverticulitis Code(s): K57.32 - DVTRCLI OF LG INT W/O PERFORATION OR ABSCESS W/O BLEEDING Status: Acute (3) Acute kidney injury Code(s): N17.9 - ACUTE KIDNEY FAILURE, UNSPECIFIED Status: Acute (4) Addisonian crisis Code(s): E27.2 - ADDISONIAN CRISIS Status: Acute (5) Adrenal insufficiency Code(s): E27.40 - UNSPECIFIED ADRENOCORTICAL INSUFFICIENCY Status: Acute (6) Bacteremia Code(s): R78.81 - BACTEREMIA Status: Acute (7) DVT (deep venous thrombosis) Code(s): I82.409 - ACUTE EMBOLISM AND THOMBOS UNSP DEEP VN UNSP LOWER EXTREMITY Status: Chronic (8) Diabetes type 2, controlled Code(s): E11.9 - TYPE 2 DIABETES MELLITUS WITHOUT COMPLICATIONS Status: Chronic - Plan Plan: Transfer of care 03/03/2020: Patient initially admitted for possible septic shock 2/2 diverticulitis and UTI. Right femoral central line placed in ED on 02/24. Patient was hypotensive requiring Levophed gtt. WBC 20 upon admission. Received 5L NS fluid resuscitation and zosyn in the ED. Levophed drip turned off at 0400 on 02/25 with BP stable since. Since patient is not in DKA, protocol discontinued. Zosyn discontinued 02/26. Adrenal crisis 2/2 medication noncompliance, Adult Stills Disease -Continue home medication -Anakinra received from home and started last pm -Monitor strict I/Os Insulin dependent DM II -Continue lantus 33 units daily -SSI and hypoglycemia protocol in place. NSTEMI Type 2 from demand ischemia -Cardiology consulted, appreciate recommendations. -Echo 02/26: EF 40-45% with diastolic dysfunction. -ASA -Continue atorvastatin 40mg DVT, right popliteal vein -Will discharge on Xarelto 15mg BID for 21 days then 20mg once daily to complete 3 month course. Combined CHF Echo on 02/26 showed EF 40-45% with diastolic dysfunction. -Monitor for symptoms of volume overload BPH -Continue tamsulosin UTI, resolved -s/p Zosyn -Given 1 dose of diflucan on 02/26 (emiliano albicans on culture) -Napier discontinued 02/28 Transaminitis -Improving Pressure ulcers -Wound care consulted, appreciate recommendations. Sigmoid diverticulitis, resolved Social considerations: ZULEYKA is daughter, Akilah Nunez ([phone]) who lives in [place]. Patient living with aunt, Cathy Hinds ([phone]), who is also repertoire manager for another family member. Consulted palliative care team who the patient has seen on several admissions. Consulted CM for placement since patient has a history of missing doses with resulting repeat admissions and is unsafe to live alone. Patient met with palliative and stated he was amendable to rehab for a short while. Rehab screen placed. Code: Full PCP: Melanie Boyce Dispo: Stable, awaiting rehab placement for d/c. Addendum - Attending - Attending Attestation Date/Time: 03/03/20 1493 I personally evaluated the patient and discussed the management with Dr. Mcdonald. I agree with the History, Examination, Assessment and Plan documented above with any addition or exceptions noted below. He is medially stable for d/c to rehab once bed is available. I discussed with him that he cannot miss any doses of his steroids or anakinra or else he will end up back in the hospital. He realistically needs to have jail placement as he has been admitted multiple times this year for the same problem.
[2020-03-03] MEDS: HumaLOG 300 UNITS/3 ML VIAL SC SCH ×2 (07:56→12:10)
[2020-03-03] MEDS: Ezetimibe 10 MG TAB PO SCH (08:42)
[2020-03-03] MEDS: Alogliptin 25 MG TAB PO SCH (08:42)
[2020-03-03] MEDS: Rivaroxaban 15 MG TAB PO SCH (08:42)
[2020-03-03] MEDS: Carvedilol 3.125 MG TAB PO SCH (08:42)
[2020-03-03] MEDS: Insulin Glargine 33 UNITS in Pre-Filled Syringe 1 EACH SC SCH (08:42)
[2020-03-03] MEDS: Multivitamin W/ Minerals 1 TAB PO SCH (08:42)
[2020-03-03] MEDS: Clotrimazole 1% Cream 15 GM TUBE TOP SCH (08:43)
[2020-03-03] MEDS: predniSONE 20 MG TAB PO SCH (12:06)
[2020-03-03] MEDS: HumaLOG 300 UNITS/3 ML VIAL SC PRN (12:14)
--- NOTE | 2020-03-03 13:11 | PDOC.PALPN ---
Palliative Progress Note - Subjective Sitting in Chair, denies complaints. Confirms willingness to transition to skilled rehab setting for a short time frame. - Objective Vital Signs: Vital Signs - Most Recent Temp Pulse Resp BP Pulse Ox 98.3 F 91 16 121/63 99 03/03/20 07:20 03/03/20 11:20 03/03/20 07:20 03/03/20 11:20 03/03/20 07:20 - Physical Exam Constitutional: NAD HEENT: EOMI, moist MMs Respiratory: no wheezing, unlabored breathing Cardiovascular: RRR Gastrointestinal: continent, soft Genitourinary: continent Musculoskeletal: diffuse muscle atrophy Neurology: moves all 4 limbs Skin: cap refill <2 seconds Psychiatric: A&O x 3, normal mood - Assessment (1) Acute kidney failure Current Visit: No Status: Acute (2) Addisonian crisis Code(s): E27.2 - ADDISONIAN CRISIS Current Visit: No Status: Acute (3) Adrenal insufficiency Code(s): E27.40 - UNSPECIFIED ADRENOCORTICAL INSUFFICIENCY Current Visit: No Status: Acute (4) Palliative care encounter Code(s): Z51.5 - ENCOUNTER FOR PALLIATIVE CARE Current Visit: No Status: Acute (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 Providing teaching in relation to Stills Disease. Requested information for "how" it occurs. Will locate and provide to Patient. Reinforced fragility of disease. Goal is to continue to seek aggressive therapies and treatments, hopeful for improved management of disease. 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 Therapeutic listening and emotional support. Please also refer to Palliative Care RN notes in note section. Spiritual care also involved with patient. [25] minutes spent on this encounter with >50% of the time in counseling and coordination of care. - ROS Constitutional: alert, weakness ENT: other (Negative for sore throat, congestion) Respiratory: other (Denies cough, shortness of breath) Cardiology: other (Negative for chest pain, palpitations) Gastrointestinal: other (Negative for Nausea, vomiting) Psychological: other (States slight frustration in isolation secondary to Covid- 19)
[2020-03-03] MEDS ORDERED: Lactated Ringer's 500 ML IV SCH (15:30)
[2020-03-03 15:54] VITALS: TEMP 98.5
[2020-03-03 16:26] VITALS: BP 119/64
--- NOTE | 2020-03-04 14:30 | DIS ---
DATE OF ADMISSION: 02/25/2020 DATE OF DISCHARGE: 03/03/2020 RESIDENT: Aleena Mcdonald MD ADMITTING ATTENDING: Itz Ko MD DISCHARGE ATTENDING: Phan Bullock MD CONSULTS: 1. Pulmonology, Dr. Munoz. 2. Cardiology, Dr. Lynn. 3. Palliative Care. PROCEDURES: Echocardiogram, ejection fraction visually estimated at 40% to 45% with grade 1 diastolic dysfunction. There was mitral annular calcification, mild mitral regurgitation, aortic valve sclerosis, mild aortic regurgitation, moderate tricuspid regurgitation. PRIMARY DIAGNOSIS: Septic shock. SECONDARY DIAGNOSES: Renal insufficiency, Adult Still disease, diabetic ketoacidosis, NSTEMI, altered mental status, urinary tract infection, diverticulitis, lactic acidosis, leukocytosis, acute kidney injury, hypokalemia, hypomagnesemia, transaminitis, hypokalemia, pressure ulcers, combined congestive heart failure, and benign prostatic hypertrophy. DISCHARGE MEDICATIONS: 1. Atorvastatin 40 mg. 2. Anakinra. 3. Zetia 10 mg. 4. Xarelto 15 mg b.i.d. for 19 more days and then resume Xarelto 20 mg daily. 5. Flomax. 6. Tramadol 100 mg q.6 p.r.n. 7. Insulin aspart 10 units subcutaneous before meals. 8. Clotrimazole cream. 9. Alogliptin. 10. Fludrocortisone. 11. Prednisone 60 mg daily. 12. Levemir 35 units q.a.m. 13. Pepcid 20 mg b.i.d. 14. Methotrexate q.7 days. 15. Carvedilol 3.125 mg. DISCONTINUED MEDICATIONS: None. HISTORY OF PRESENT ILLNESS/HOSPITAL COURSE: Mr. Knight is a 59-year-old male who presented with altered mental status. He was at home and his home health nurse discovered him today in a confused state. He had obvious diarrhea , but was unable to give much history. Upon arrival to the ED, he was given 5 L of normal saline for fluid resuscitation, started on a Levophed drip for hypotension and insulin drip for elevated glucose and beta-hydroxybutyrate. He was started on Zosyn for antibiotic coverage and stress-dosed steroid. CT of his abdomen and pelvis revealed an uncomplicated diverticulitis. Laboratory studies were pertinent for white count of 20.3. Sodium of 148. Procalcitonin of 172. A urinalysis significant for pyuria, glucosuria, and hematuria. Beta-hydroxybutyrate level of 0.81. Over the course of his hospitalization, he responded well to antibiotic therapy and came back to his baseline mental status. His adrenal crisis was responsive to steroids and he was placed back on his normal home dose of steroids and anakinra. The patient agreed to be discharged to inpatient rehab to further physical therapy before going home. DISPOSITION: Guarded. DISCHARGE INSTRUCTIONS: 1. Location: [facility]. 2. Diet: Heart healthy. 3. Activity: Ad reji. 4. Followup: With primary care physician on discharge from rehab. Job ID: [id number] MTDD
== END 2020-03-03 16:25 | DRG 871 ==
LOC: ERS 15:02 → CCU 17:54 → IMCU/EMU 02-26 17:55 → 2NO 02-27 17:17
PROVIDERS: ADMIT Family Medicine; ATTEND Family Medicine
PROC: 3E033XZ Introduction of Vasopressor into Peripheral Vein, Percutaneous Approach (ICD-10-PCS; principal; 2020-02-25)
PROC: 02HV33Z Insertion of Infusion Device into Superior Vena Cava, Percutaneous Approach (ICD-10-PCS; 2020-02-25)
PROC: 0T9B70Z Drainage of Bladder with Drainage Device, Via Natural or Artificial Opening (ICD-10-PCS; 2020-02-25)
DX: B37.7 Candidal sepsis (principal); E11.10 Type 2 diabetes mellitus with ketoacidosis without coma; I21.A1 Myocardial infarction type 2; G93.41 Metabolic encephalopathy; R65.21 Severe sepsis with septic shock; K57.32 Diverticulitis of large intestine without perforation or abscess without bleeding; E27.40 Unspecified adrenocortical insufficiency; I50.42 Chronic combined systolic (congestive) and diastolic (congestive) heart failure; E87.2 Acidosis; N17.9 Acute kidney failure, unspecified; E87.3 Alkalosis; E27.2 Addisonian crisis; I42.0 Dilated cardiomyopathy; I13.0 Hypertensive heart and chronic kidney disease with heart failure and stage 1 through stage 4 chronic kidney disease, or unspecified chronic kidney disease; I82.431 Acute embolism and thrombosis of right popliteal vein; B37.41 Candidal cystitis and urethritis; Z51.5 Encounter for palliative care; E78.5 Hyperlipidemia, unspecified; M08.20 Juvenile rheumatoid arthritis with systemic onset, unspecified site; N40.0 Benign prostatic hyperplasia without lower urinary tract symptoms; E87.6 Hypokalemia; E83.42 Hypomagnesemia; E87.8 Other disorders of electrolyte and fluid balance, not elsewhere classified; R40.2422 Glasgow coma scale score 9-12, at arrival to emergency department; N18.9 Chronic kidney disease, unspecified; D69.6 Thrombocytopenia, unspecified; E11.22 Type 2 diabetes mellitus with diabetic chronic kidney disease; L89.152 Pressure ulcer of sacral region, stage 2; L89.892 Pressure ulcer of other site, stage 2; Z90.49 Acquired absence of other specified parts of digestive tract; Z98.1 Arthrodesis status; Z88.1 Allergy status to other antibiotic agents; Z79.899 Other long term (current) drug therapy; Z79.4 Long term (current) use of insulin; Z79.52 Long term (current) use of systemic steroids; Z91.14 Patient's other noncompliance with medication regimen
CPT/HCPCS: 36415; 36416; 36556; 51702; 71045; 74176; 80048; 80053; 81003; 81015; 82010; 82330; 82553; 82803; 83605; 83690; 83735; 84100; 84145; 84484; 85025; 87040; 87045; 87046; 87086; 87205; 87324; 87427; 87449; 93005; 93306; 93970; 96365; 96366; 99292; J1650; J1720; J1815; J2543; J3475; J3480; J3490; J7512; S0028

== ENCOUNTER 2020-03-19 15:16 | Inpatient (IN) | payer MEDICARE, OTHER ==
[2020-03-19 16:18] LABS: Hemoglobin 15.3 g/dL (14.0-18.0); Mean Corpuscular HGB CONC 30.9 g/dL (32.0-36.0); Mean Corpuscular Hemoglobin 28.5 pg (27.0-31.0); Mean Corpuscular Volume 92.3 fL (78.0-98.0); RBC Distribution Width 17.6 % (11.5-14.5); Red Blood Cell (RBC) Count 5.38 mill/uL (4.70-6.10); White Blood Cell (WBC) Count 9.8 thou/uL (4.8-10.8)
--- NOTE | 2020-03-19 16:24 | RAD ---
EXAM: Single view of the chest HISTORY: Sepsis COMPARISON: 02/25/2020 FINDINGS: Single view of the chest shows a normal sized cardiomediastinal silhouette. There is no lina dence of consolidation, mass, or pleural effusion. Patient is status post left shoulder arthroplasty. Degenerative changes seen in the right shoulder and spine. IMPRESSION: No evidence of acute cardiopulmonary disease
[2020-03-19 16:34] LABS: ALT (SGPT) 80 U/L (8-55); AST (SGOT) 70 U/L (5-34); Albumin 3.8 g/dL (3.5-5.0); Alkaline Phosphatase 142 U/L (40-110); Anion Gap 18 mmol/L (10-20); BUN (Urea Nitrogen) 12 mg/dL (8.4-25.7); Bilirubin, Total 1.1 mg/dL (0.2-1.2); Calc. Creatinine Clearance 0 mL/min (70-130); Calcium 9.4 mg/dL (7.8-10.44); Carbon Dioxide 24 mmol/L (22-29); Chloride 105 mmol/L (98-107); Estimated GFR-MDRD Greater than 90; Globulin 3.3 g/dL (2.4-3.5); Glucose 207 mg/dL (70-105); Potassium 4.8 mmol/L (3.5-5.1); Protein, Total 7.1 g/dL (6.0-8.3); Sodium 142 mmol/L (136-145)
[2020-03-19] MEDS ORDERED: cefTRIAXone\\ROCEPHIN 2 GM VIAL ONE (16:37)
[2020-03-19 16:44] LABS: %Basophils 0.5 % (0.0-1.0); %Eosinophils 0.4 % (0.0-10.0); %Lymphocytes 34.9 % (21.0-51.0); %Monocytes 4.7 % (0.0-10.0); Band 14 % (5-11); Lymphocytes 31 % (21-51); MDiff Complete? YES; Mean Platelet Volume 9.8 fL (7.4-10.4); Metamyelocyte 1 % (0-0); Monocytes 6 % (0-10); Neutrophil 46 % (42-75); Platelet Count 115 thou/uL (130-400); Platelet Morphology Comment Appears Decreased; RBC Morphology Normal; Reactive Lymphocytes 2 % (0-10)
[2020-03-19 17:59] LABS: Bacteria/HPF None Seen HPF (None Seen); Bilirubin Negative (Negative); Blood, Urine 2+ (Negative); Clarity Clear (Clear); Glucose, Urine (Dipstick) Greater than 1000 mg/dL (Negative); Ketone, Urine 40 mg/dL (Negative); Leukocyte 75 Leu/uL (Negative); Nitrite Negative (Negative); Protein, Urine (Dipstick) 30 mg/dL (Neg-Trace); RBC/HPF 21-50 HPF (0-3); Specific Gravity, Urine 1.022 (1.002-1.036); Squamous Epithelial 0-3 HPF (0-3); Urobilinogen Normal mg/dL (Less than 2)
[2020-03-19] MEDS ORDERED: Acetaminophen 650 MG Suppository ONE (18:36)
--- NOTE | 2020-03-19 18:46 | PDOC.FPRHP ---
- History of Present Illness Chief Complaint: AMS History of Present Illness: Mr. Knight is a 59 AAM with PMHx of adrenal insufficiency and HTN who presents for AMS. HPI per ED reports 2/2 patient not answering questions. Patient was following commands but would not answer questions. Patient has a fever, has not been feeling well since yesterday. He is a poor historian. Patient's family says he has been confused. He denies any cough. No vomiting or diarrhea. He was admitted here last month for sepsis from a UTI. ED Course: Patient got 1L fluid bolus and 2g Rocephin. - Allergies/Adverse Reactions Allergies Allergy/AdvReac Type Severity Reaction Status Date / Time vancomycin Allergy Intermediate Verified 01/07/20 20:03 - Home Medications Medication Instructions Recorded Confirmed Type Atorvastatin Calcium [Lipitor] 40 mg PO QAM 10/18/15 02/26/20 History Anakinra [Kineret] 100 mg SQ QPM 09/01/18 02/26/20 History Ezetimibe [Zetia] 10 mg PO QAM tab 01/03/19 02/26/20 Rx Multivitamin W/ Minerals 1 tab PO DAILY tab 01/03/19 02/26/20 Rx [Theragran M] Tamsulosin HCl [Flomax] 0.4 mg PO QAM cap 01/03/19 02/26/20 Rx traMADol HCl [Tramadol HCl] 100 mg PO Q6H PRN 05/30/19 02/26/20 History Insulin Aspart [Novolog Flexpen] 10 unit SQ AC 12/23/19 02/26/20 History Clotrimazole [Lotrimin 1% Cream] 1 gm TOP DAILY #1 tube 12/25/19 02/26/20 Rx Alogliptin 25 mg PO DAILY tab 01/10/20 02/26/20 Rx Fludrocortisone Acetate [Florinef] 0.1 mg PO DAILY #0 tab 01/10/20 02/26/20 Rx predniSONE 60 mg PO 1200 tab 01/10/20 02/26/20 Rx Famotidine [Pepcid] 20 mg PO BID 02/26/20 02/26/20 History Insulin Detemir [Levemir] 35 units SQ QAM 02/26/20 02/26/20 History Methotrexate Sodium/PF 10 mg IJ Q7DAYS 02/26/20 02/26/20 History [Methotrexate 25 mg/ml Vial] Carvedilol [Coreg] 3.125 mg PO BID tab 03/03/20 Rx Rivaroxaban [Xarelto] 15 mg PO BID 19 Days tab 03/03/20 Rx - History PMHx: DMII, HTN, Still's disease, HLD, Adrenal insufficiency PSHx: Cholecystectomy, L shoulder surgery, L knee surgery, C spine fusion FHx: noncontributory Social: lives alone, no drug, tobacco or alcohol use - Review of Systems ROS unobtainable: due to mental status - Vital signs BP: 116/69, Pulse: 144, Resp: 17, Temp: 103.0 (Oral), O2 sat: 97 on (Room Air), Time: 03/19/2020 15:18. Weight 74.84 kg - Physical Exam Constitutional: NAD, well developed HEENT: normocephalic and atraumatic, PERRLA Neck: supple, FROM Chest: no-tender to palpation Heart: RRR, normal S1/S2 Lungs: CTAB, no respiratory distress, good air movement Abdomen: soft, non-tender, bowel sounds present Musculoskeletal: normal structure, normal tone Neurological: no focal deficit -Neurological: patient appropriately followed commands with no facial droop or extremity deficits but did not talk besides some one word answers Heme/Lymphatic: no unusual bruising or bleeding, no purpura FMR H&P: Results - Labs Result Diagrams: 03/19/20 15:56 03/19/20 15:56 Lab results: WBC 9.8 thou/uL (4.8-10.8) 03/19/20 15:56 Hgb 15.3 g/dL (14.0-18.0) 03/19/20 15:56 Hct 49.6 % (42.0-52.0) 03/19/20 15:56 MCV 92.3 fL (78.0-98.0) 03/19/20 15:56 Plt Count 115 thou/uL (130-400) L 03/19/20 15:56 Band Neuts % (Manual) 14 % (5-11) H 03/19/20 15:56 Sodium 142 mmol/L (136-145) 03/19/20 15:56 Potassium 4.8 mmol/L (3.5-5.1) 03/19/20 15:56 Chloride 105 mmol/L (98-107) 03/19/20 15:56 Carbon Dioxide 24 mmol/L (22-29) 03/19/20 15:56 BUN 12 mg/dL (8.4-25.7) 03/19/20 15:56 Creatinine 0.95 mg/dL (0.7-1.3) 03/19/20 15:56 Glucose 207 mg/dL (70-105) H 03/19/20 15:56 Lactic Acid 3.5 mmol/L (0.5-2.2) H 03/19/20 15:56 Calcium 9.4 mg/dL (7.8-10.44) 03/19/20 15:56 Total Bilirubin 1.1 mg/dL (0.2-1.2) 03/19/20 15:56 AST 70 U/L (5-34) H 03/19/20 15:56 ALT 80 U/L (8-55) H 03/19/20 15:56 Alkaline Phosphatase 142 U/L (40-110) H 03/19/20 15:56 Serum Total Protein 7.1 g/dL (6.0-8.3) 03/19/20 15:56 Albumin 3.8 g/dL (3.5-5.0) 03/19/20 15:56 Urine Ketones 40 mg/dL (Negative) A 03/19/20 17:45 Urine Blood 2+ (Negative) A 03/19/20 17:45 Urine Nitrite Negative (Negative) 03/19/20 17:45 Ur Leukocyte Esterase 75 David/uL (Negative) A 03/19/20 17:45 Urine RBC 21-50 HPF (0-3) A 03/19/20 17:45 Urine WBC 7-10 HPF (0-3) A 03/19/20 17:45 Ur Squamous Epith Cells 0-3 HPF (0-3) 03/19/20 17:45 Urine Bacteria None Seen HPF (None Seen) 03/19/20 17:45 - EKG Interpretation EKG: sinus tachycardia, no evidence for acute ischemia - Radiology Interpretation Chest x-ray Status: report reviewed by me (no acute intrathoracic processes) FMR H&P: A/P - Plan Acute metabolic encephalopathy likely 2/2 adrenal insufficiency in an adult with Stills disease. Pt has history of noncompliance with medications. SIRS criteria met but could be explained with adrenal insufficiency. Acute metabolic encephalopathy -Question of infection vs inflammatory process, no obvious source of infection and given lab work, inflammatory cause likely. D/c abx at this time - UA is negative for nitrites and bacteria, straight cath can explain blood - IVF Maintenance - CK, CRP, ESR - C diff - GCT testing given bloody UA sample with Leukocytes - f/u urine/blood cx Adrenal insufficiency - likely contributing to sirs criteria, takes 60 mg prednisone QD and 0.1 mg fludrocortisone - Stress dose 100 mg hydrocortisone now, continue 50 mg IV q6h - monitor electrolytes DMII -Home basal insulin, SSI Lactic Acidosis Lactate 3.5 on admission - monitor status CARL Likely secondary to hypotension, septic shock. Cr 3.37, CrCl 21. Baseline GFR is >90. -Renal dose adjustment of zosyn -Continue to monitor with AM labs Transaminitis Mild, per chart review possible baseline for patient -Continue to monitor with AM labs Adult Stills Disease Unclear compliance with home medication; non-compliance has affected mental status in the past. -Anakinra at home, unavailable in hospital Combined CHF Last echo 01/28/2020 with EF 60-65% and grade 1 diastolic dysfunction. -Monitor for symptoms of volume overload BPH Home meds include tamsulosin. Not given today due to NPO status. Social considerations: Per chart review: MPOA is daughter, Akilah Nunez ) who lives in [place]. Pt lives with aunt, Cathy Hinds ([phone]), who is also corporate traffic manager for another family member. Consulted case management for placement. Diet: CC IVF: 250cc/hr NS PPx: SCD, Home Xarelto, famotidine Code: Full PCP: Melanie Boyce Attending: Jose Dispo: Admitted to medicine, expected stay <2 nights. FMR H&P: Upper Level - Plan Date/Time: 03/19/201843 IAxel DO, have evaluated this patient and agree with findings/plan as outlined by architect intern resident. Pertinent changes/additions are listed here. This is a 59 yo male who is well known to our service who has a pmh of Adult Still's disease on immunosuppression, IDDM2, adrenal insufficiency, who presents to the ER with a cc of AMS. His family memebers report he has been confused and is not at baseline. He reports feeling ill, feverish, and malaise. He states it may have started yesterday. He is otherwise a poor historian. This patient has had multiple admissions in the past for what I believe is related to medication noncompliance. He has presented with a significant SIRS picture and some trivial infection is blamed on the source. We have tried to have him follow with his rheumatolotist to help better manage his disease process. I also believe that palliative care has been involved in the past and will likely be involved in this hospital stay. Objective: Vitals: BP 96/67, Pulse 136, RR 19, Temp 103.1, SpO2 95 ra, Wt. 74 kg General: GCS E4V5M6, lethargic with poor responses to questions HEENT: MMM, AT/NC Cardio: Tachycardic, systolic murmur 2/6 Respiratory: CTAB Abdomen: No rebound tenderness, minimal grimace with superficial and deep palpation, mild involuntary guarding on the left upper and lower quadrants Extremities: Trace edema, pulses present Neuro: Awake, oriented to person only A/P Acute metabolic encephalopathy 2/2 acute flare of Adult still's disease -Admit to medical obs -Stress dose steroids with IV maintenance steroids -Pending blood cultures, S/P Rocephin 2g and NS bolus 30ml/kg no signs of infection SIRS 2/2 above -UA shows no bacteria or nitrites, there was blood and DAVID so we will check GC/ chlamydia, and trichomonaisis -Urine and blood cultures pending -Pending CRP, ESR, procal IDDM2 -Continue home meds -Diabetic protocol per orders HTN -Continue home meds Combined HF -Will need to monitor closely given recent fluid bolus, asymptomatic at this time -Echo 02/2020 EF 40-45%, Grade 1/3 diastolic dysfunction Thrombocytopenia -Plt 115, likely related to acute flare -This does not represent a lifetime low Lactic acidosis -Likely related to flare, will monitor after fluids Transaminitis -Likely 2/2 above, will monitor. Pt has had intermittent elevations in the last year Code: Full Prophylaxis: Lovenox Family: None at bedside Fluids: LR 125ml/hr Diet: CC Disposition: DC in 2-3 days PCP: REMINGTON Dawkins Addendum - Attending - Attending Attestation Date/Time: 03/20/20 0151 I personally evaluated the patient and discussed the management with Dr. Watson and Hanh I agree with the History, Examination, Assessment and Plan documented above with any addition or exceptions noted below. 59 yo male with adrenal insufficiency and adult Stills Dz along with other chronic conditions presents to ER for evaluation of confusion and fever. Family members provide history. However history obtained from ER MD. Family no longer present. Patient intermittent in answering questions. - Admit. Start stress dose steroids. PRN antipyretics. Trend inflammatory markers. ESR WNL. CRP elevated. Does not appear to have treatment for dz state other than steroids used for adrenal disease. Unsure if follows up with rheum. Unsure treatment history and if resistent to other forms of therapy DMARs, antiTNFs, etc. Will review chart. Infection work up pending. Unsure if infection present but has been give Rocephin. Will hold for now and start therapy for Stills. - Encephalopathy. Intermittent cooperation to questions. Unable to concentrate. Similar presentation as other admissions. - Adrenal insufficiency. Unsure if iadrogenic due to steriod use or autoimmune/ inflammatory related. Continue stress dosing. Trend electrolytes. WNL at present. Hypotension currently but stable MAP. Monitor closely. - Recent DVT. Continue BID dosing of xarelto until 03/24/20. - Adjust home meds as needed. Luis
[2020-03-19 19:00] LABS: Lactic Acid 3.4 mmol/L (0.5-2.2)
[2020-03-19] MEDS ORDERED: Dextrose 50% Abboject 50 ML SYRINGE SLOW IVP PRN ×2 (21:28→22:29)
[2020-03-19] MEDS ORDERED: Dextrose 5% in Water 1,000 ML IV PRN ×2 (21:28→22:29)
[2020-03-19] MEDS ORDERED: HumaLOG 300 UNITS/3 ML VIAL SC PRN (21:28)
[2020-03-19] MEDS ORDERED: Ondansetron ODT 4 MG TAB SL PRN (22:08)
[2020-03-19] MEDS ORDERED: Acetaminophen 325 MG TAB PO PRN ×2 (22:08→22:29)
[2020-03-19] MEDS ORDERED: Ondansetron PF 4 MG/2 ML Vial IVP PRN ×2 (22:08→22:29)
[2020-03-19] MEDS ORDERED: Sodium Chloride 0.9% 1,000 ML IV SCH ×2 (22:08→23:59)
[2020-03-19] MEDS ORDERED: Acetaminophen 650 MG Suppository PR PRN (22:29)
[2020-03-19] MEDS ORDERED: Calcium Carbonate 500 MG ChewTAB PO PRN (22:29)
[2020-03-19] MEDS ORDERED: Ondansetron ODT 4 MG TAB PO PRN (22:29)
[2020-03-19] MEDS ORDERED: Hydrocortisone Sod Succ/PF 100 mg/2 ml Vial IVP SCH (22:30)
[2020-03-19 23:20] LABS: CRP (Inflammatory) 11.82 mg/dL (= or < 0.5)
[2020-03-20] MEDS: Lactated Ringer's 1,000 ML IV SCH ×3 (02:50→20:24)
[2020-03-20] MEDS: Hydrocortisone Sod Succ/PF 100 mg/2 ml Vial IVP SCH ×4 (06:05→23:26)
[2020-03-20 06:17] LABS: #Basophils 0.1 thou/uL (0.0-0.2); #Lymphocytes 3.6 thou/uL (1.20-3.40); #Monocytes 0.9 thou/uL (0.11-0.59); #Neutrophils 10.6 thou/uL (1.40-6.50); %Basophils 0.6 % (0.0-1.0); %Eosinophils 0.1 % (0.0-10.0); %Lymphocytes 23.6 % (21.0-51.0); %Monocytes 5.6 % (0.0-10.0); %Neutrophils 70.1 % (42.0-75.0); Hemoglobin 12.6 g/dL (14.0-18.0); Mean Corpuscular HGB CONC 30.9 g/dL (32.0-36.0); Mean Corpuscular Hemoglobin 28.8 pg (27.0-31.0); Mean Corpuscular Volume 93.1 fL (78.0-98.0); Mean Platelet Volume 9.5 fL (7.4-10.4); Platelet Count 75 thou/uL (130-400); RBC Distribution Width 17.3 % (11.5-14.5); White Blood Cell (WBC) Count 15.2 thou/uL (4.8-10.8)
[2020-03-20 06:30] LABS: ALT (SGPT) 51 U/L (8-55); AST (SGOT) 52 U/L (5-34); Albumin 2.8 g/dL (3.5-5.0); Alkaline Phosphatase 102 U/L (40-110); Anion Gap 16 mmol/L (10-20); BUN (Urea Nitrogen) 15 mg/dL (8.4-25.7); Bilirubin, Total 0.8 mg/dL (0.2-1.2); Calc. Creatinine Clearance 0 mL/min (70-130); Carbon Dioxide 20 mmol/L (22-29); Chloride 113 mmol/L (98-107); Estimated GFR-MDRD Greater than 90; Globulin 2.4 g/dL (2.4-3.5); Glucose 164 mg/dL (70-105); Potassium 4.8 mmol/L (3.5-5.1); Protein, Total 5.2 g/dL (6.0-8.3); Sodium 144 mmol/L (136-145)
--- NOTE | 2020-03-20 07:24 | PDOC.FM ---
- Subjective Subjective: Patient reports he "feels normal" this morning. He reports feeling feverish with body aches yesterday after missing a dose of prednisone but denies fever, chills, sweating, headache, chest pain, SOB, and abdominal pain today. He notes that he ran out of multiple medications recently and requests refills. Upon further questioning, the patient says he has not taken prednisone or Xarelto. He cannot recall what other medications he should be taking or when. He does report taking Anakinra daily but says he does not believe it was brought with him to the hospital. - Objective MAR Reviewed: Yes Vital Signs & Weight: Vital Signs (12 hours) Temp Pulse Resp BP Pulse Ox 03/20/20 06:01 98.0 F 91 18 107/71 100 03/20/20 04:00 100 03/20/20 03:45 98.3 F 99 24 H 94/63 100 03/20/20 02:53 98.5 F 100 28 H 97/65 100 03/20/20 01:11 98.7 F 112 H 28 H 98/67 100 03/20/20 00:00 100.3 F H 120 H 20 93/61 100 03/19/20 23:37 100.3 F H 119 H 24 H 132/82 100 03/19/20 22:35 100.6 F H 130 H 36 H 92/53 L 95 03/19/20 22:29 101.5 F H 124 H 28 H 112/71 100 Weight Weight 155.6 g I&O: 03/19/20 03/20/20 03/21/20 06:59 06:59 06:59 Intake Total 977 Balance 977 Result Diagrams: 03/20/20 05:57 03/20/20 05:57 Phys Exam - Physical Examination Constitutional: NAD HEENT: moist MMs, sclera anicteric Neck: supple, full ROM Respiratory: no wheezing, clear to auscultation bilateral Cardiovascular: RRR, no significant murmur Gastrointestinal: soft, non-tender, positive bowel sounds Musculoskeletal: no edema, pulses present Neurological: non-focal, moves all 4 limbs Lymphatic: no nodes Psychiatric: normal affect, A&O x 3 Skin: no rash, normal turgor Dx/Plan - Plan Plan: 1. Acute metabolic encephalopathy 2/2 adrenal insufficiency in the setting of Stills disease Patient meets SIRs criteria but no source of infection noted. WBC 9.8 on admission. UA negative for nitrites, bacteria. CXR showed no acute process. Cause likely inflammatory in origin. CRP 11.82. Patient has been admitted previously with similar presentation and found to have been noncompliant with medications. He ran out of prednisone recently. - Restart home medications - Received stress dose 100mg hydrocortisone, now 50mg IV Q6H - IVF Maintenance - F/u C diff - F/u GCT testing given bloody UA sample with leukocytes - F/u urine/blood cx - Daily BMP - Consult CM. Patient will need Anakinra brought from home. 2. Lactic Acidosis Lactate 3.4 on admission. -Monitor 3. CARL Likely secondary to hypotension. Cr 3.37 on admission, now 0.83 -Resolved 4. Transaminitis Mild. Per chart review possible baseline for patient. -Monitor 5. Adult Stills Disease Patient reports taking Anakinra daily. -Anakinra at home, unavailable in hospital. Contact family today 6. Combined CHF Last echo 01/28/2020 with EF 60-65% and grade 1 diastolic dysfunction. -Monitor for symptoms of volume overload 7. BPH -Continue home meds 8. DMII -Continue home meds 9. DVT Patient currently on Xarelto for DVT diagnosed at recent hospital admission. - Continue current dose Social considerations: Per chart review: MPOA is daughter, Akilah Nunez ) who lives in [place]. Pt lives with aunt, Cathy Hinds ([phone]), who is also manager sign for another family member. Consulted case management for placement. PPx: SCD, Home Xarelto, famotidine Code: Full PCP: Melanie Boyce Dispo: Home with HH vs. long-term placement pending symptom improvement and resumption of home medications.
[2020-03-20] MEDS ORDERED: Rivaroxaban 15 MG TAB PO SCH (09:00)
[2020-03-20] MEDS ORDERED: Atorvastatin Calcium 40 MG TAB PO SCH (09:00)
[2020-03-20] MEDS: Ezetimibe 10 MG TAB PO SCH (09:26)
[2020-03-20] MEDS: Famotidine 20 MG TAB PO SCH ×2 (09:26→20:19)
[2020-03-20] MEDS: Tamsulosin HCl 0.4 MG CAP PO SCH (09:26)
[2020-03-20] MEDS: Carvedilol 3.125 MG TAB PO SCH ×2 (09:30→20:19)
[2020-03-20] MEDS: Rivaroxaban 10 MG TAB PO SCH (09:30)
[2020-03-20] MEDS: Clotrimazole 1% Cream 15 GM TUBE TOP SCH (12:13)
[2020-03-20] MEDS: HumaLOG 300 UNITS/3 ML VIAL SC PRN ×3 (12:21→20:20)
--- NOTE | 2020-03-20 12:52 | PRG ---
DATE OF SERVICE: 03/20/2020 Mr. Knight is a pleasant 59-year-old black male patient with a history of Still disease for which he takes chronic corticosteroids. He evidently has missed a dose or two and became confused and lethargic. He presented to our ER and was given a dose of prednisone. This morning, he is awake, alert, in no distress. We again counseled him about the importance of taking his medications daily. Otherwise, he is ready for discharge. It is likely his temporary AMS was due to mild Tate crisis from missing his prednisone. Job ID: [id number]
[2020-03-20 14:09] LABS: SARS-CoV-2 MS2 Positive; SARS-CoV-2 N Gene Negative; SARS-CoV-2 S Gene Negative; SARS-CoV-2 by NAA Not Detected (NotDetected); SARS-CoV-2 orf1ab Negative
[2020-03-20] MEDS: Atorvastatin Calcium 40 MG TAB PO SCH (20:19)
[2020-03-20] MEDS: ANAKINRA 100 MG SCH (20:20)
[2020-03-21] MEDS: Lactated Ringer's 1,000 ML IV SCH (04:14)
[2020-03-21] MEDS: Hydrocortisone Sod Succ/PF 100 mg/2 ml Vial IVP SCH (06:22)
[2020-03-21] MEDS: HumaLOG 300 UNITS/3 ML VIAL SC PRN ×4 (06:23→20:24)
--- NOTE | 2020-03-21 06:28 | PDOC.FM ---
- Subjective Subjective: Patient says he is feeling well today. He wants to walk around the hospital floor today but notes that he has not moved out of bed in the past few days. He denies headache, fever, sweats, chest pain, SOB, abdominal pain and edema. He requests a medication list due to difficulty remembering what he takes and when. - Objective MAR Reviewed: Yes Vital Signs & Weight: Vital Signs (12 hours) Temp Pulse Resp BP Pulse Ox 03/20/20 19:57 98.2 F 97 16 113/68 100 Weight Admit Weight 74.84 kg Weight 155.6 g I&O: 03/19/20 03/20/20 03/21/20 06:59 06:59 06:59 Intake Total 977 2000 Output Total 600 2150 Balance 377 -150 Result Diagrams: 03/21/20 06:33 03/21/20 06:33 Phys Exam - Physical Examination Constitutional: NAD HEENT: moist MMs, sclera anicteric Neck: supple, full ROM Respiratory: no wheezing, clear to auscultation bilateral Cardiovascular: RRR, no significant murmur Gastrointestinal: soft, non-tender, positive bowel sounds Musculoskeletal: no edema, pulses present Neurological: non-focal, moves all 4 limbs Lymphatic: no nodes Psychiatric: normal affect, A&O x 3 Skin: no rash, normal turgor Dx/Plan - Plan Plan: 1. Acute metabolic encephalopathy 2/2 adrenal insufficiency in the setting of Stills disease Patient meets SIRs criteria but no source of infection noted. WBC 9.8 on admission. UA negative for nitrites, bacteria. CXR showed no acute process. Cause likely inflammatory in origin. CRP 11.82. Patient has been admitted previously with similar presentation and found to have been noncompliant with medications. He ran out of prednisone recently. - Stop 100mg hydrocortisone 50mg IV Q6H - Resume home dose prednisone - Continue Anakinra - F/u urine/blood cx - Daily BMP 2. Lactic Acidosis Lactate 3.4 on admission. -Monitor 3. CARL Likely secondary to hypotension. Cr 3.37 on admission, now 0.83 -Resolved 4. Transaminitis Mild. Per chart review possible baseline for patient. -Monitor 5. Adult Stills Disease -Continue Anakinra daily 6. Combined CHF Last echo 01/28/2020 with EF 60-65% and grade 1 diastolic dysfunction. -Monitor for symptoms of volume overload 7. BPH -Continue home meds 8. DMII -Continue home meds 9. DVT Patient currently on Xarelto for DVT diagnosed at recent hospital admission. - Continue current dose Social considerations: Per chart review: MPOA is daughter, Akilah Nunez ) who lives in [place]. Pt lives with aunt, Cathy Hinds ([phone]), who is also clinical secretary for another family member. Consulted case management for placement. PPx: SCD, Home Xarelto, famotidine Code: Full PCP: Melanie Boyce Dispo: Home with HH pending continued improvement.
[2020-03-21 07:22] LABS: ALT (SGPT) 92 U/L (8-55); AST (SGOT) 75 U/L (5-34); Albumin 2.5 g/dL (3.5-5.0); Alkaline Phosphatase 84 U/L (40-110); Anion Gap 12 mmol/L (10-20); BUN (Urea Nitrogen) 14 mg/dL (8.4-25.7); Bilirubin, Total 0.8 mg/dL (0.2-1.2); Calc. Creatinine Clearance 0 mL/min (70-130); Calcium 8.1 mg/dL (7.8-10.44); Carbon Dioxide 20 mmol/L (22-29); Chloride 112 mmol/L (98-107); Estimated GFR-MDRD Greater than 90; Globulin 2.2 g/dL (2.4-3.5); Glucose 230 mg/dL (70-105); Potassium 3.4 mmol/L (3.5-5.1); Protein, Total 4.7 g/dL (6.0-8.3); Sodium 141 mmol/L (136-145)
[2020-03-21 07:36] LABS: Hemoglobin 10.2 g/dL (14.0-18.0); Mean Corpuscular HGB CONC 32.2 g/dL (32.0-36.0); Mean Corpuscular Hemoglobin 29.2 pg (27.0-31.0); Mean Corpuscular Volume 90.9 fL (78.0-98.0); Mean Platelet Volume 9.6 fL (7.4-10.4); Platelet Count 68 thou/uL (130-400); RBC Distribution Width 16.7 % (11.5-14.5); White Blood Cell (WBC) Count 8.7 thou/uL (4.8-10.8)
[2020-03-21 07:38] LABS: #Lymphocytes 2.2 thou/uL (1.20-3.40); #Monocytes 0.5 thou/uL (0.11-0.59); %Basophils 0.1 % (0.0-1.0); %Eosinophils 0.2 % (0.0-10.0); %Lymphocytes 25.1 % (21.0-51.0); %Monocytes 5.2 % (0.0-10.0); %Neutrophils 69.4 % (42.0-75.0); Anisocytosis SLIGHT = 6-15 cells (100X) (0-5/hpf); Elliptocytes SLIGHT = 2-5 cells (100X) (0-1/hpf); MDiff Complete? YES; Platelet Morphology Comment Appears Decreased
[2020-03-21] MEDS ORDERED: predniSONE 50 MG TAB PO SCH (09:00)
[2020-03-21] MEDS ORDERED: Non-Formulary Item 1 EACH (Insulin Glargine,Hum.Rec.Anlog [Basaglar Kwikpen U-100] 30 UNI SQ SCH (09:00)
[2020-03-21] MEDS: predniSONE 20 MG TAB PO SCH (09:20)
[2020-03-21] MEDS: Famotidine 20 MG TAB PO SCH ×2 (09:21→20:23)
[2020-03-21] MEDS: Ezetimibe 10 MG TAB PO SCH (09:21)
[2020-03-21] MEDS: Rivaroxaban 10 MG TAB PO SCH (09:22)
[2020-03-21] MEDS: Tamsulosin HCl 0.4 MG CAP PO SCH (09:22)
[2020-03-21] MEDS: Carvedilol 3.125 MG TAB PO SCH ×2 (09:22→20:23)
[2020-03-21] MEDS: Clotrimazole 1% Cream 15 GM TUBE TOP SCH (09:22)
[2020-03-21] MEDS: Insulin Glargine 30 UNITS in Pre-Filled Syringe 1 EACH SC SCH (10:43)
--- NOTE | 2020-03-21 15:21 | PRG ---
DATE OF SERVICE: 03/21/2020 Mr. Knight has received his Still's medication and is looking and feeling better and back to normal. He has previously been noncompliant with some of his medications and we have really had a talk with him about the importance of not missing dosages. We have consulted Case Management for placement as home care seems becoming more difficult for the family. He lives with an aunt and the daughter, medical power of consumer attorney, lives in [place]. Job ID: [id number]
[2020-03-21] MEDS: Atorvastatin Calcium 40 MG TAB PO SCH (20:24)
[2020-03-21] MEDS: ANAKINRA 100 MG SCH (20:24)
[2020-03-22] MEDS: HumaLOG 300 UNITS/3 ML VIAL SC PRN ×2 (05:47→12:17)
[2020-03-22 06:12] LABS: #Lymphocytes 1.6 thou/uL (1.20-3.40); #Monocytes 0.4 thou/uL (0.11-0.59); #Neutrophils 4.1 thou/uL (1.40-6.50); %Basophils 0.3 % (0.0-1.0); %Eosinophils 0.3 % (0.0-10.0); %Lymphocytes 25.7 % (21.0-51.0); %Monocytes 6.2 % (0.0-10.0); %Neutrophils 67.5 % (42.0-75.0); Hemoglobin 11.9 g/dL (14.0-18.0); Mean Corpuscular HGB CONC 31.5 g/dL (32.0-36.0); Mean Corpuscular Volume 95.1 fL (78.0-98.0); Mean Platelet Volume 10.2 fL (7.4-10.4); Platelet Count 58 thou/uL (130-400); RBC Distribution Width 16.8 % (11.5-14.5); Red Blood Cell (RBC) Count 3.97 mill/uL (4.70-6.10)
--- NOTE | 2020-03-22 07:24 | PDOC.FM ---
- Subjective Subjective: Mr Knight is a 59M with a hx of Stills disease that presented with AMS. He met SIRS criteria but it was more likely adrenal crisis. He is doing well this morning. He was sitting up in bed watching tv when I saw him. He feels he is back at his baseline. He is A&O x3. He states he has been getting up and walking around well with PT. He had previously asked for a list of his medications so he knows what to take and when since "they recently changed all of my medications. They took me off a bunch of them." and he made this request again stating he has not been provided the list. He is the one that normally manages his own medications. He is also interested in those services that pre-package your daily medications for you and send them to your home. He feels he is ready to go home. - Objective Vital Signs & Weight: Vital Signs (12 hours) Temp Pulse Resp BP Pulse Ox 03/21/20 20:00 98.0 F 85 16 117/74 100 Weight Admit Weight 74.84 kg Weight 155.6 g I&O: 03/21/20 03/22/20 03/23/20 06:59 06:59 06:59 Intake Total 3790 1100 Output Total 3400 600 Balance 390 500 Result Diagrams: 03/22/20 05:45 03/22/20 10:17 Phys Exam - Physical Examination Neck: supple, full ROM Respiratory: clear to auscultation bilateral Cardiovascular: RRR, no significant murmur Psychiatric: normal affect, A&O x 3 Dx/Plan - Plan Plan: Acute metabolic encephalopathy 2/2 adrenal insufficiency in the setting of Stills disease Patient meets SIRs criteria but no source of infection noted. WBC 9.8 on admission. UA negative for nitrites, bacteria. CXR showed no acute process. Cause likely inflammatory in origin. CRP 11.82. Patient has been admitted previously with similar presentation and found to have been noncompliant with medications. He ran out of prednisone recently. - Stop 100mg hydrocortisone 50mg IV Q6H - Resume home dose prednisone - Continue Anakinra - UA showed significant blood, protein, glucose, and ketones (03/19) - BCx and UCx showed no growth - Last BMP (03/21) showed K down to 3.4 from 4.8 the day before. Has not resulted for today (03/22) - Patient interested in getting his medications pre-packaged and sent to him since he is not sure what to take. Referred patient to [facility] for this option - Prepare for discharge home with home health Chronic Anemia - Mild, per patient chart Hb tends to reside around 10-11 consistent with levels on this admission. - Positive fecal occult blood test (03/19) - Hb 10.2 (03/21) and 11.9 (03/22) - Recommend patient sees GI outpatient for possible scope Lactic Acidosis Lactate 3.4 on admission. -Monitor CARL Likely secondary to hypotension. Cr 3.37 on admission, now 0.83 -Resolved Transaminitis Mild. Per chart review possible baseline for patient. - Monitor Adult Stills Disease -Continue Anakinra daily Combined CHF Last echo 01/28/2020 with EF 60-65% and grade 1 diastolic dysfunction. -Monitor for symptoms of volume overload BPH -Continue home meds DMII -Continue home meds DVT Patient currently on Xarelto for DVT diagnosed at recent hospital admission. - Continue current dose Social considerations: Per chart review: MPOA is daughter, Akilah Nunez ) who lives in [place]. Pt lives with aunt, Cathy Hinds ([phone]), who is also sheet combining operator for another family member. Consulted case management for placement. PPx: SCD, Home Xarelto, famotidine Code: Full PCP: Melanie Boyce Dispo: Home with today Addendum - Attending - Attending Attestation Date/Time: 03/22/20 0898 I personally evaluated the patient and discussed the management with Dr. Royal Hoyt. I agree with the History, Examination, Assessment and Plan documented above with any addition or exceptions noted below. The patient is feeling well today. He is ready to go home. Will need close outpt f/u. He did have a positive fecal occult blood during the hospitalization but Hb is stable. Will need outpt scope. Pt will be given updated medication list.
[2020-03-22] MEDS: predniSONE 20 MG TAB PO SCH (07:55)
[2020-03-22] MEDS: Rivaroxaban 10 MG TAB PO SCH (07:56)
[2020-03-22] MEDS: Ezetimibe 10 MG TAB PO SCH (07:56)
[2020-03-22] MEDS: Carvedilol 3.125 MG TAB PO SCH (07:57)
[2020-03-22] MEDS: Tamsulosin HCl 0.4 MG CAP PO SCH (07:57)
[2020-03-22] MEDS: Insulin Glargine 30 UNITS in Pre-Filled Syringe 1 EACH SC SCH (07:57)
[2020-03-22] MEDS: Clotrimazole 1% Cream 15 GM TUBE TOP SCH (07:58)
[2020-03-22] MEDS: Famotidine 20 MG TAB PO SCH (07:58)
[2020-03-22 10:55] LABS: ALT (SGPT) 94 U/L (8-55); AST (SGOT) 40 U/L (5-34); Albumin 3.2 g/dL (3.5-5.0); Alkaline Phosphatase 100 U/L (40-110); Anion Gap 13 mmol/L (10-20); BUN (Urea Nitrogen) 15 mg/dL (8.4-25.7); Bilirubin, Total 0.6 mg/dL (0.2-1.2); Calc. Creatinine Clearance 0 mL/min (70-130); Calcium 8.5 mg/dL (7.8-10.44); Carbon Dioxide 21 mmol/L (22-29); Chloride 109 mmol/L (98-107); Estimated GFR-MDRD Greater than 90; Globulin 2.7 g/dL (2.4-3.5); Glucose 254 mg/dL (70-105); Potassium 3.3 mmol/L (3.5-5.1); Protein, Total 5.9 g/dL (6.0-8.3); Sodium 140 mmol/L (136-145)
[2020-03-22 12:20] VITALS: BP 125/78; TEMP 98.1
--- NOTE | 2020-03-23 09:16 | DIS ---
DATE OF ADMISSION: 03/20/2020 DATE OF DISCHARGE: 03/22/2020 RESIDENT: Jessica Christina MD ADMITTING ATTENDING: Mel Garcia MD DISCHARGE ATTENDING: Nancy Barnes MD CONSULTS: None. PROCEDURES: None. PRIMARY DIAGNOSIS: Acute metabolic encephalopathy secondary to adrenal insufficiency in the setting of Stills disease. SECONDARY DIAGNOSES: 1. Chronic anemia. 2. Lactic acidosis. 3. Acute kidney injury. 4. Transaminitis. 5. Adult Still disease. 6. Combined congestive heart failure. 7. Benign prostatic hypertrophy. 8. Type 2 diabetes. 9. Deep venous thrombosis. DISCHARGE MEDICATIONS: 1. Anakinra 100 mg subcutaneous daily. 2. Lipitor 40 mg p.o. q.a.m. 3. Zetia 10 mg p.o. q.a.m. 4. Insulin glargine 30 units subcutaneous daily. 5. Flomax 0.4 mg p.o. every morning. 6. Prednisone 60 mg p.o. q.a.m. 7. Xarelto 20 mg p.o. daily. 8. Coreg 3.125 mg p.o. twice a day. DISCONTINUED MEDICATIONS: None. HISTORY OF PRESENT ILLNESS/HOSPITAL COURSE: Mr. Knight is a 59-year-old male with a past medical history of adrenal insufficiency and hypotension, who presented to the emergency department with altered mental status. He stated he had not been feeling well since the day before and he had a fever. He is a poor historian and family said he had been confused. He had been admitted here the prior month with sepsis from a UTI and it was unknown if the cause of his altered mental status on this admission was sepsis. On admission he met SIRS criteria but he also has a history of hospitalization due to adrenal crisis, so both were in the differential. WBCs on admission were 9.8, UA was negative for nitrites and bacteria, CXR was normal, and CRP was 11.82. Ultimately, no source of infection was found and it was determined the altered mental status was due to inflammatory causes. He had been previously admitted with a similar presentation and found to have been noncompliant with medication. On admission, he stated he had recently run out of prednisone. He was given a stress dose of hydrocortisone and daily BMPs were checked. The UA sample he had provided was bloody and had leukocytes so urine and blood cultures were obtained and resulted negative. On admission, lactate was 3.4, but was not followed up on. He was found to have mild CARL suspected to be secondary to hypotension. His creatinine was 3.37 on admission that came down to less than 1 by discharge. He was also found to have mild transaminitis that appeared to be his baseline based on previous admission. With appropriate steroid dosing, the patient's mentation returned to baseline and he felt he was ready to go home. He stated that he wanted a list of the medications he is supposed to be taking and when to take them because he is not sure how to take them. He states he is the one who usually manages his medications, but "last time, they changed all of my medications. They discontinued a bunch of them," so he did not know what he needed to be taking. This likely played a role in his noncompliance. The patient stated he was interested in getting a medication delivery service to his home where his medications would be prepackaged so I referred him to [facility] with verbal and written instructions on how to enroll in this service. He was discharged home where he lives with a family member. Medical power of health care attorney is his daughter Akilah Nunez, who lives in [place]. Her number is in his chart. DISCHARGE INSTRUCTIONS: 1. Location: Home. 2. Diet: Diabetic. 3. Activity: As tolerated. 4. Followup: Encouraged to follow up with his PCP, Xavi Boyce at [facility]. Job ID: [id number] MTDD
[2020-03-24] MEDS ORDERED: Rivaroxaban 10 MG TAB PO SCH (09:00)
== END 2020-03-22 12:50 | disposition home health service (06) | DRG 643 ==
LOC: ERS 15:16 → T4-A 22:27 → OBSVTOIN 03-20 17:50
PROVIDERS: ADMIT Student in an Organized Health Care Education/Training Program; ATTEND Student in an Organized Health Care Education/Training Program
DX: E27.2 Addisonian crisis (principal); G93.41 Metabolic encephalopathy; E87.2 Acidosis; N17.9 Acute kidney failure, unspecified; R65.10 Systemic inflammatory response syndrome (SIRS) of non-infectious origin without acute organ dysfunction; I50.42 Chronic combined systolic (congestive) and diastolic (congestive) heart failure; I82.409 Acute embolism and thrombosis of unspecified deep veins of unspecified lower extremity; Z79.02 Long term (current) use of antithrombotics/antiplatelets; M06.1 Adult-onset Still's disease; Z20.828 Contact with and (suspected) exposure to other viral communicable diseases; E11.9 Type 2 diabetes mellitus without complications; N40.0 Benign prostatic hyperplasia without lower urinary tract symptoms; T38.0X6A Underdosing of glucocorticoids and synthetic analogues, initial encounter; D64.9 Anemia, unspecified; R74.0 Nonspecific elevation of levels of transaminase and lactic acid dehydrogenase [LDH]; I12.9 Hypertensive chronic kidney disease with stage 1 through stage 4 chronic kidney disease, or unspecified chronic kidney disease; Z91.19 Patient's noncompliance with other medical treatment and regimen; Z91.14 Patient's other noncompliance with medication regimen; Z79.899 Other long term (current) drug therapy; Z79.4 Long term (current) use of insulin
CPT/HCPCS: 36415; 36416; 51701; 71045; 80053; 81003; 81015; 82140; 82274; 82550; 82728; 83605; 85025; 85652; 86140; 87040; 87086; 87324; 87449; 87635; 93005; 96361; 96365; 96375; 96376; G0378; J0696; J1720; J1815; J7120; J7512; U0003

== ENCOUNTER 2020-03-26 12:00 | Inpatient (IN) | payer MEDICARE ==
[2020-03-26] MEDS ORDERED: Acetaminophen 500 MG TAB ONE (12:33)
[2020-03-26] MEDS ORDERED: Acetaminophen 650 MG Suppository ONE (12:37)
[2020-03-26 13:17] LABS: #Basophils 0.1 thou/uL (0.0-0.2); #Eosinphils 0.1 thou/uL (0.0-0.7); #Lymphocytes 2.5 thou/uL (1.20-3.40); #Monocytes 0.1 thou/uL (0.11-0.59); #Neutrophils 5.9 thou/uL (1.40-6.50); %Basophils 0.8 % (0.0-1.0); %Eosinophils 0.6 % (0.0-10.0); %Lymphocytes 28.6 % (21.0-51.0); %Monocytes 1.1 % (0.0-10.0); %Neutrophils 68.8 % (42.0-75.0); Hemoglobin 15.7 g/dL (14.0-18.0); Mean Corpuscular HGB CONC 31.7 g/dL (32.0-36.0); Mean Corpuscular Hemoglobin 28.5 pg (27.0-31.0); Mean Corpuscular Volume 90.1 fL (78.0-98.0); Mean Platelet Volume 8.6 fL (7.4-10.4); Platelet Count 145 thou/uL (130-400); RBC Distribution Width 17.7 % (11.5-14.5); Red Blood Cell (RBC) Count 5.49 mill/uL (4.70-6.10); White Blood Cell (WBC) Count 8.6 thou/uL (4.8-10.8)
[2020-03-26 13:31] LABS: Acetaminophen Less than 6.0 mcg/mL (10.0-30.0); Alcohol Less than 10 mg/dL (Less than 10); CK (CPK) 69 U/L (30-200); Salicylate Less than 8.0 mg/dL (15.0-30.0); Troponin I 0.039 ng/mL (< 0.028)
[2020-03-26 13:32] LABS: ALT (SGPT) 63 U/L (8-55); AST (SGOT) 89 U/L (5-34); Albumin 3.6 g/dL (3.5-5.0); Alkaline Phosphatase 124 U/L (40-110); Anion Gap 17 mmol/L (10-20); BUN (Urea Nitrogen) 9 mg/dL (8.4-25.7); Bilirubin, Total 1.1 mg/dL (0.2-1.2); Calc. Creatinine Clearance 0 mL/min (70-130); Calcium 8.8 mg/dL (7.8-10.44); Carbon Dioxide 23 mmol/L (22-29); Chloride 101 mmol/L (98-107); Estimated GFR-MDRD Greater than 90; Globulin 3.1 g/dL (2.4-3.5); Potassium 3.1 mmol/L (3.5-5.1); Protein, Total 6.7 g/dL (6.0-8.3); Sodium 138 mmol/L (136-145)
[2020-03-26] MEDS ORDERED: Dexamethasone 4 mg/ml Vial ONE (13:40)
[2020-03-26 13:42] LABS: Glucose 57 mg/dL (70-105)
[2020-03-26] MEDS ORDERED: Dextrose 50% Abboject 50 ML SYRINGE ONE (13:42)
[2020-03-26 13:43] LABS: Bacteria/HPF None Seen HPF (None Seen); Bilirubin Negative (Negative); Blood, Urine Trace (Negative); Clarity Clear (Clear); Glucose, Urine (Dipstick) 50 mg/dL (Negative); Ketone, Urine Trace mg/dL (Negative); Leukocyte 75 Leu/uL (Negative); Nitrite Negative (Negative); Protein, Urine (Dipstick) 50 mg/dL (Neg-Trace); Specific Gravity, Urine 1.009 (1.002-1.036); Squamous Epithelial 0-3 HPF (0-3); pH, Urine 7.5 (5.0-9.0)
[2020-03-26 13:59] LABS: Medtox Reader # READER 4
[2020-03-26 14:00] LABS: Amphetamine Not Detected (NotDetected); Barbiturates Screen Not Detected (NotDetected); Benzodiazepine Screen Not Detected (NotDetected); Cocaine Metabolite Screen Not Detected (NotDetected); Medtox Control Line Valid? VALID (VALID); Methadone Not Detected (NotDetected); Methamphetamine Not Detected (NotDetected); Opiate Screen Not Detected (NotDetected); Oxycodone Screen Not Detected (NotDetected); Phencyclidine (PCP) Not Detected (NotDetected); THC/Cannabinoid Screen Not Detected (NotDetected); Tricyclic Screen Not Detected (NotDetected)
[2020-03-26] MEDS ORDERED: D5 1/2 NS w/20 mEq KCL 1,000 ML IV SCH (14:00)
--- NOTE | 2020-03-26 14:15 | CT ---
CT HEAD WITHOUT CONTRAST: 03/26/20 INDICATIONS: Mental status change. Comparison made to recent exam of 03/04/20. FINDINGS: Ventriculomegaly is again noted and was described previously. Periventricular lucency is seen which c ould represent chronic ischemic change and/or transependymal CSF. Recommend clinical correlation rega rding NPH. No acute mass, hemorrhage, or infarct. IMPRESSION: Ventriculomegaly again noted as discussed. POS: AGW
--- NOTE | 2020-03-26 14:21 | PDOC.FPRHP ---
- History of Present Illness Chief Complaint: altered mental status History of Present Illness: 59 y/o AA M with pmhx of Still's Disease, IDDMII, and adrenal insufficiency presents to the ER via EMS from home after family noticed the pt being more sleepy and not awakening. Last night the pt went to bed telling his family he wasn't feeling well, "achy body," and was going to take a nap. He was last seen normal at 8 PM. Pt lives with his sister Cathy. She states he was non- responsive starting this morning upon awakening. Nursing staff from [facility] wound care came out yesterday to treat his bed sore and everything was ok. Sister thinks he has been taking his medications as prescribed. Sister states that the pt is responsible for taking his own medications, and no one monitors this process. ED course: Temp 102.5 F, COVID PUI, rapid swab. K 3.1, 20 meq K given 57 glucose, given dextrose, repeat was 252 EKD sinus tach 130 Trop 0.039 AST 89, ALT 63, Alk phos 124 CT head: ventriclomegaly, as visualized on previous exams. No acute intracranial process. wbc 8.6 - Allergies/Adverse Reactions Allergies Allergy/AdvReac Type Severity Reaction Status Date / Time vancomycin Allergy Intermediate Verified 03/27/20 06:04 - Home Medications Medication Instructions Recorded Confirmed Type Atorvastatin Calcium [Lipitor] 40 mg PO HS 10/18/15 03/27/20 History Anakinra [Kineret] 100 mg SQ DAILY 09/01/18 03/27/20 History Ezetimibe [Zetia] 10 mg PO QAM tab 01/03/19 03/27/20 Rx Carvedilol [Coreg] 3.125 mg PO BID #0 tab 03/22/20 03/27/20 Rx Folic Acid 1 tab PO DAILY 03/27/20 03/27/20 History Insulin Detemir [Levemir] 35 units SQ QAM 03/27/20 03/27/20 History Methotrexate Sodium/PF 0.4 ml SQ Q7DAYS 03/27/20 03/27/20 History [Methotrexate 25 mg/ml Vial] Rivaroxaban [Xarelto] 1 tab PO QPM 03/27/20 03/27/20 History Tamsulosin HCl [Flomax] 0.4 mg PO QPM 03/27/20 03/27/20 History predniSONE 60 mg PO QAM 03/27/20 03/27/20 History traMADol HCl [Tramadol HCl] 50 mg PO Q6HR PRN 03/27/20 03/27/20 History - History PMHx: DMII, HTN, Still's disease, HLD, Adrenal insufficiency PSHx: Cholecystectomy, L shoulder surgery, L knee surgery, C spine fusion FHx: noncontributory Social: lives alone, no drug, tobacco or alcohol use - Review of Systems ROS unobtainable: due to mental status (PT will not answer any questions upon initial evaluation.) - Vital signs BP: 98/52 HR: 109 RR: 20 Tmax: 102.5 Pox: 95% on ra Wt: 90.72 kg - Physical Exam -Constitutional: somnolent, but arousable. falls right back asleep after awakening. HEENT: normocephalic and atraumatic, conjunctiva clear -HEENT: dry MM Neck: supple, no JVD, no thyromegaly -Chest: small adri sized maculopapular rash over chest and shoulders. -Heart: tachycardia rate 110's no gallops or rubs. soft 2/6 systolic murmur loudest over L sternal boarder Lungs: CTAB, no respiratory distress, good air movement, no rales/rhonchi, no wheezing, no retractions Abdomen: soft, non-tender, bowel sounds present, no masses/distention Musculoskeletal: normal structure, normal tone Neurological: no focal deficit (moves all 4 ext) -Neurological: GCS 12 Skin: good turgor -Skin: small lesions over chest and shoulders see chest. Heme/Lymphatic: no unusual bruising or bleeding, no petechia -Psychiatric: not oriented to time or situation. oriented to person and place. FMR H&P: Results - Labs Result Diagrams: 03/26/20 12:56 03/27/20 05:13 Lab results: WBC 8.6 thou/uL (4.8-10.8) 03/26/20 12:56 Hgb 15.7 g/dL (14.0-18.0) 03/26/20 12:56 Hct 49.4 % (42.0-52.0) 03/26/20 12:56 MCV 90.1 fL (78.0-98.0) 03/26/20 12:56 Plt Count 145 thou/uL (130-400) 03/26/20 12:56 Neutrophils % 68.8 % (42.0-75.0) 03/26/20 12:56 Sodium 138 mmol/L (136-145) 03/26/20 12:56 Potassium 3.1 mmol/L (3.5-5.1) L 03/26/20 12:56 Chloride 101 mmol/L (98-107) 03/26/20 12:56 Carbon Dioxide 23 mmol/L (22-29) 03/26/20 12:56 BUN 9 mg/dL (8.4-25.7) 03/26/20 12:56 Creatinine 0.82 mg/dL (0.7-1.3) 03/26/20 12:56 Glucose 57 mg/dL (70-105) L* 03/26/20 12:56 Lactic Acid 2.0 mmol/L (0.5-2.2) 03/26/20 12:56 Calcium 8.8 mg/dL (7.8-10.44) 03/26/20 12:56 Total Bilirubin 1.1 mg/dL (0.2-1.2) 03/26/20 12:56 AST 89 U/L (5-34) H 03/26/20 12:56 ALT 63 U/L (8-55) H 03/26/20 12:56 Alkaline Phosphatase 124 U/L (40-110) H 03/26/20 12:56 Ammonia 23 umol/L (18-72) 03/26/20 12:56 Creatine Kinase 69 U/L (30-200) 03/26/20 12:56 Serum Total Protein 6.7 g/dL (6.0-8.3) 03/26/20 12:56 Albumin 3.6 g/dL (3.5-5.0) 03/26/20 12:56 Urine Ketones Trace mg/dL (Negative) A 03/26/20 12:50 Urine Blood Trace (Negative) A 03/26/20 12:50 Urine Nitrite Negative (Negative) 03/26/20 12:50 Ur Leukocyte Esterase 75 David/uL (Negative) A 03/26/20 12:50 Urine RBC 4-6 HPF (0-3) A 03/26/20 12:50 Urine WBC 4-6 HPF (0-3) A 03/26/20 12:50 Ur Squamous Epith Cells 0-3 HPF (0-3) 03/26/20 12:50 Urine Bacteria None Seen HPF (None Seen) 03/26/20 12:50 - EKG Interpretation EKG: sinus tach 130 LVH - Radiology Interpretation CT scan - head Status: report reviewed by me (vantriculomegaly. No acute intracranial process.) FMR H&P: A/P - Problem List (1) Adrenal crisis Current Visit: Yes Status: Acute Code(s): E27.2 - ADDISONIAN CRISIS (2) Adrenal insufficiency Current Visit: Yes Status: Acute Code(s): E27.40 - UNSPECIFIED ADRENOCORTICAL INSUFFICIENCY (3) Hypoglycemia Current Visit: Yes Status: Acute Code(s): E16.2 - HYPOGLYCEMIA, UNSPECIFIED (4) Increased anion gap metabolic acidosis Current Visit: Yes Status: Acute Code(s): E87.2 - ACIDOSIS (5) Non compliance with medical treatment Current Visit: Yes Status: Acute Code(s): Z91.19 - PATIENT'S NONCOMPLIANCE W OTH MEDICAL TREATMENT AND REGIMEN (6) SIRS (systemic inflammatory response syndrome) Current Visit: Yes Status: Acute Code(s): R65.10 - SIRS OF NON-INFECTIOUS ORIGIN W/O ACUTE ORGAN DYSFUNCTION (7) Adult Still's disease Current Visit: Yes Status: Chronic Code(s): M06.1 - ADULT-ONSET STILL'S DISEASE Comment: Cont Anakinran and PO steroids.OP Rheumatology follow up (8) BPH (benign prostatic hyperplasia) Current Visit: Yes Status: Chronic Code(s): N40.0 - BENIGN PROSTATIC HYPERPLASIA WITHOUT LOWER URINRY TRACT SYMP (9) Chronic anticoagulation Current Visit: Yes Status: Chronic Code(s): Z79.01 - SKILLED NURSING (CURRENT) USE OF ANTICOAGULANTS Comment: Continue Xarelto (10) Hypokalemia Current Visit: Yes Status: Acute Code(s): E87.6 - HYPOKALEMIA Comment: Replace and recheck (11) Hypotension Current Visit: Yes Status: Acute Comment: Likely multifactorial in conjuction with adrenal insufficiciency and iatrogenic influence, titrate home BP regimen (12) Metabolic encephalopathy Current Visit: Yes Status: Acute Code(s): G93.41 - METABOLIC ENCEPHALOPATHY - Plan 59 y/o AA M, with pmhx of Still's Disease, admitted for Acute Adrenal Crisis causing metabolic encephalopathy. Pt has history of noncompliance with medications. 1. Acute Adrenal Crisis - likely secondary to Still's disease and non-compliance with steroids. - hypoglycemic -glucose 57. Given dextrose and increased to 252 shortly after. - hypotension 90's/50's, given 10 mg decadron. will start stress dose steroids 100 mg IV hydrocortisone and then maintenance 50 mg hydrocortisone IV Q6H 2. SIRS criteria met - temp 102.5 F and tachycardic 130's - UA is negative for nitrites, + luek est, bacteria and wbc. culture sent. - Blood ccx sent, will continue cefepime until ccx results. - LA 2.0 3. Acute metabolic encephalopathy 2/2 adrenal crisis - likely contributing to sirs criteria, takes 60 mg prednisone QD and 0.1 mg fludrocortisone at home, unknown if pt has been taking correctly. - Stress dose 100 mg hydrocortisone now, continue 50 mg IV q6h - monitor electrolytes 4. Tachycardia - EKG showed sinus tach 130 with LVH - likely cause of elevated trops. 5. Indeterminant Trops - trop 0.039 - EKG sinus tach 130 - likely elevated from tachycardia and demand. Will trend X3. 6. Hypokalemia, Hypophosphatemia - K 3.1 - given 20 meq in ER. - gave 12 mmol potassium phosphate - repeat BMP tonight @ 2000 and replace accordingly. 7. DMII -hold home basal insulin, SSI - hold until tolerating diet. 8. Transaminitis Mild, per chart review possible baseline for patient -Continue to monitor with cmp in AM - AST: 89, ALT: 63, Alk Phos: 124 9. Adult Stills Disease - Pt has a hx of non-compliance with steroids once d/c'd home. - Continue home Anakinra, pharmacy to administer home medication, as not on formulary. 10. Combined kb/sys CHF - Last echo 01/28/2020 with EF 60-65% and grade 1 diastolic dysfunction. - Monitor for symptoms of volume overload. avoid excessive IV fluids. 12. BPH - takes tamsulosin at home. - hold until BP higher. Social considerations: Per chart review: MPOA is daughter, Akilah Nunez ([phone]) who lives in [place]. Pt lives with aunt, Cathy Hinds ([phone]), who is also intensive care unit registered nurse for another family member. Consulted case management for placement. Diet: NPO until speech clears pt for diet. due to alerted mentation IVF: LR @ 125 ml/hr dvt ppx: Xarelto Code: Full PCP: Melanie Boyce Dispo: Admitted to [facility], expected stay >2 nights. Addendum - Attending - Attending Attestation Date/Time: 03/27/20 0339 I personally evaluated the patient and discussed the management with Dr. Mcpherson. I agree with the History, Examination, Assessment and Plan documented above with any addition or exceptions noted below.
--- NOTE | 2020-03-26 14:26 | RAD ---
Chest one view HISTORY: Dyspnea. COMPARISON: 03/19/2020. FINDINGS: Cardiac silhouette is magnified by projection. Pulmonary vasculature is unremarkable. Patie nt is slightly rotated rightward. No confluent airspace consolidation or evidence of pneumothorax. Postoperative changes left shoulder and cervical spine evident. IMPRESSION : No active cardiopulmonary abnormalities are demonstrated.
[2020-03-26] MEDS ORDERED: Cefepime 2 GM VIAL ONE (14:36)
[2020-03-26] MEDS ORDERED: Ondansetron ODT 4 MG TAB PO PRN (15:04)
[2020-03-26] MEDS ORDERED: Acetaminophen 325 MG TAB PO PRN (15:04)
[2020-03-26 15:09] LABS: Anion Gap 11 mmol/L (10-20); BUN (Urea Nitrogen) 9 mg/dL (8.4-25.7); Calc. Creatinine Clearance 0 mL/min (70-130); Calcium 7.7 mg/dL (7.8-10.44); Carbon Dioxide 28 mmol/L (22-29); Chloride 101 mmol/L (98-107); Estimated GFR-MDRD Greater than 90; Glucose 245 mg/dL (70-105); Sodium 137 mmol/L (136-145)
[2020-03-26 15:25] LABS: Potassium 2.6 mmol/L (3.5-5.1)
[2020-03-26] MEDS ORDERED: Potassium Chloride 20 MEQ in Lactated Ringer's 1,000 ML IV SCH (15:30)
[2020-03-26 15:44] LABS: Phosphorus Less than 1.0 mg/dL (2.3-4.7)
[2020-03-26 15:50] LABS: SARS-CoV-2 NAA Rapid Test Not Detected (NotDetected)
[2020-03-26] MEDS ORDERED: Calcium Carbonate 500 MG ChewTAB PO PRN (15:54)
[2020-03-26 16:12] LABS: Magnesium 1.6 mg/dL (1.6-2.6)
[2020-03-26] MEDS ORDERED: Hydrocortisone Sod Succ/PF 100 MG in Sodium Chloride 0.9% 50 ML IVPB SCH ×2 (17:00→21:00)
[2020-03-26] MEDS ORDERED: Potassium Phosphate 12 MMOL in Sodium Chloride 0.9% 100 ML IVPB SCH ×2 (17:00→22:00)
[2020-03-26] MEDS ORDERED: Magnesium 2 GM/50 ML 2 GM in Premix Bag 1 BAG IVPB SCH ×2 (17:00→21:00)
[2020-03-26] MEDS ORDERED: HumaLOG 300 UNITS/3 ML VIAL SC PRN (17:28)
[2020-03-26] MEDS ORDERED: Dextrose 50% Abboject 50 ML SYRINGE SLOW IVP PRN (17:28)
[2020-03-26] MEDS ORDERED: Dextrose 5% in Water 1,000 ML IV PRN (17:28)
[2020-03-26 19:54] LABS: Magnesium 1.6 mg/dL (1.6-2.6); Potassium 3.5 mmol/L (3.5-5.1)
[2020-03-26] MEDS: Carvedilol 3.125 MG TAB PO SCH (22:17)
[2020-03-26] MEDS ORDERED: Hydrocortisone Sod Succ/PF 50 MG in Sodium Chloride 0.9% 50 ML IVPB SCH (23:59)
[2020-03-27] MEDS: Lactated Ringer's 1,000 ML IV SCH ×4 (00:13→17:13)
[2020-03-27 02:31] VITALS: BMI 24.7
[2020-03-27] MEDS ORDERED: Cefepime 2 GM in Sodium Chloride 0.9% 100 ML IVPB SCH (03:00)
[2020-03-27 05:40] LABS: Albumin 2.7 g/dL (3.5-5.0)
[2020-03-27 05:41] LABS: Chloride 106 mmol/L (98-107); Potassium 4.3 mmol/L (3.5-5.1); Sodium 138 mmol/L (136-145)
[2020-03-27 05:42] LABS: Calcium 8.1 mg/dL (7.8-10.44)
[2020-03-27 05:43] LABS: Globulin 2.5 g/dL (2.4-3.5); Glucose 189 mg/dL (70-105); Protein, Total 5.2 g/dL (6.0-8.3)
[2020-03-27 05:44] LABS: Anion Gap 11 mmol/L (10-20); Bilirubin, Total 0.9 mg/dL (0.2-1.2); Carbon Dioxide 25 mmol/L (22-29)
[2020-03-27 05:45] LABS: Alkaline Phosphatase 82 U/L (40-110)
[2020-03-27 05:46] LABS: Calc. Creatinine Clearance 106 mL/min (70-130); Estimated GFR-MDRD Greater than 90
[2020-03-27 05:47] LABS: BUN (Urea Nitrogen) 19 mg/dL (8.4-25.7)
[2020-03-27 05:48] LABS: ALT (SGPT) 46 U/L (8-55); AST (SGOT) 51 U/L (5-34)
[2020-03-27] MEDS ORDERED: Hydrocortisone Sod Succ/PF 50 MG in Sodium Chloride 0.9% 50 ML IVPB SCH (06:00)
--- NOTE | 2020-03-27 06:14 | PDOC.FM ---
- Subjective Subjective: The patient says he feels like himself again. He reports feeling feverish yesterday but no longer. He is in charge of taking his medications and says he has not missed a day. He does note, however, that he forgets and takes medications later when he remembers. He is interested in an assisted living facility for a short period of time. He denies sweats, chills, headache, chest pain, SOB, abdominal pain and edema. - Objective MAR Reviewed: Yes Vital Signs & Weight: Vital Signs (12 hours) Temp Pulse Resp BP Pulse Ox 03/27/20 03:40 97.7 F 77 18 109/75 97 03/26/20 19:36 98.0 F 84 16 124/60 100 Weight Weight 71.668 kg I&O: 03/25/20 03/26/20 03/27/20 06:59 06:59 06:59 Intake Total 1200 Output Total 200 Balance 1000 Result Diagrams: 03/26/20 12:56 03/27/20 05:13 Phys Exam - Physical Examination Constitutional: NAD HEENT: moist MMs, sclera anicteric Neck: supple, full ROM Respiratory: no wheezing, clear to auscultation bilateral Cardiovascular: RRR, no significant murmur Gastrointestinal: soft, non-tender Musculoskeletal: pulses present 1+ pitting edema Neurological: non-focal, moves all 4 limbs Lymphatic: no nodes Psychiatric: normal affect, A&O x 3 Deviation from normal: A&Ox4, at baseline mentation Skin: no rash, cap refill <2 seconds Dx/Plan - Plan Plan: 1. 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 Hx of multiple admissions in adrenal crisis with associated acute metabolic encephalopathy after not taking home prednisone. Presented hypoglycemic, given dextrose, now in 200s. Hypotensive 90s/50s in ED, given 10mg decadron, now stable. CT Brain showed chronic ventriculomegaly. Negative drug screen. -Received stress dose steroids 100mg IV hydrocortisone, then maintenance 50mg hydrocortisone IV Q6H -Transition to home prednisone 60mg PO daily today 2. SIRS criteria met Temp 102.5 F and tachycardic 130's in ED. Now afebrile with HR in 70-80s. No identifiable source of infection. UA negative for nitrites/bacteria. LA 2.0. CXR showed nothing acute. - F/u urine and blood cultures - Continue cefepime 3. Indeterminant Trops Trop 0.039 -> 0.027, likely elevated from tachycardia (HR 130s) and demand. - Improved 4. Hypokalemia, resolved K 2.6 in the ED. Given 20meq in ED as well as 12 mmol potassium phosphase x 2. K now 4.3. - Monitor 5. Hypophosphatemia, resolved Phos < 1.0 in the ED. Receive 12 mmol potassium phosphase x 2. Now 3. -Monitor 6. DMII BG ranged 189-296 overnight. - Restart home basal insulin since now on heart healthy diet 7. Transaminitis, improved Mild, per chart review possible baseline for patient. AST: 89 -> 51, ALT: 63 -> 46, Alk Phos: 124 -> 82. -Monitor 8. Adult Stills Disease Pt has a hx of non-compliance with steroids once d/c'd home. - Continue home Anakinra, pharmacy to administer home medication, as not on formulary. 9. Combined kb/sys CHF Last echo 01/28/2020 with EF 60-65% and grade 1 diastolic dysfunction. - Discontinue LR 125 as patient tolerating PO - Monitor for symptoms of fluid overload 10. BPH Takes tamsulosin at home. - Held due to low BP on admission Social considerations: Per chart review: MPOA is daughter, Akilah Nunez ([phone]) who lives in [place]. Pt lives with aunt, Cathy Hinds ([phone]), who is also inventory control coordinator for another family member. Consulted case management for placement. Dvt ppx: Xarelto Code: Full PCP: Melanie Boyce Dispo: Placement to assisted living facility pending approval and symptom improvement Addendum - Attending - Attending Attestation Date/Time: 03/27/20 7143 I personally evaluated the patient and discussed the management with Dr. Comer. I agree with the History, Examination, Assessment and Plan documented above with any addition or exceptions noted below. Patient overall back to baseline. No concern for sepsis, suspect this is all related to his med noncompliance with Still's disease therapy. He is now open to placement, which will likely be the only way we can keep him out of hospital since he obviously cannot take his medications appropriately outside the hospital.
[2020-03-27] MEDS: Atorvastatin Calcium 20 MG TAB PO SCH (09:46)
[2020-03-27] MEDS: Rivaroxaban 10 MG TAB PO SCH (09:46)
[2020-03-27] MEDS: predniSONE 20 MG TAB PO SCH (09:46)
[2020-03-27] MEDS: (Anakinra [Kineret] 100 MG) SC SCH (09:47)
[2020-03-27] MEDS: Ezetimibe 10 MG TAB PO SCH (09:47)
[2020-03-27] MEDS: Insulin Glargine 30 UNITS in Pre-Filled Syringe 1 EACH SC SCH (09:47)
[2020-03-27] MEDS: Carvedilol 3.125 MG TAB PO SCH ×2 (09:47→20:56)
[2020-03-27] MEDS ORDERED: Hydrocortisone Sod Succ/PF 50 MG in Sodium Chloride 0.9% 50 ML IVP SCH (12:00)
[2020-03-27] MEDS ORDERED: Insulin Regular 300 UNITS/3 ML VIAL SC SCH (13:45)
[2020-03-27] MEDS ORDERED: HumaLOG 300 UNITS/3 ML VIAL SC PRN (13:49)
[2020-03-27] MEDS ORDERED: HumaLOG 300 UNITS/3 ML VIAL SC SCH (14:00)
--- NOTE | 2020-03-27 14:08 | PDOC.BPN ---
- Brief Progress Note Subjective: Pt is a 59 yo AAM with pmh of DMII, HLD, HTN, RA, BPH, Still's Disease, and Adrenal insufficiency who presented for Altered Mental Status. He says that he has been having trouble keeping up with his medications. He says today he feels fine and he does not understand why they keep pumping him full of antibiotics. Objective: Vital Signs: Temp-98.2, Heart Rate- 95, Respiratory Rate- 16, O2 Sat- 98 RA, Blood pressure- 116/78 Head: Normocephalic, Atraumatic Eyes: PERRLA Heart: RRR Lungs: CTAB Abdomen: NBS, Soft Nontender Extremities: 1+ pitting edema of the lower extremities Neurologic: GCS of 15 Assessment & Plan: I spoke with his home health nurse who says they are having trouble seeing him and doing enough in there allotted time periods. I discussed with her and she says he has no support at home and he has trouble remembering his medicines. I discussed this with him and he says that it is because every time he comes in to the hospital they keep changing his medicines around. He says he is agreeable to going somewhere where they will help him with his medications, but he only wants to stay a week. I discussed with him that his frequent hospital visits are negatively affecting his health and that he may need more terminal superintendent care. He did not want to hear this. He is frustrated with his care. I discussed that if he comes back to the hospital we will discuss [facility] placement further. He agreed. I agree with the current management of the primary team.
[2020-03-27] MEDS: HumaLOG 300 UNITS/3 ML VIAL SC PRN (20:57)
[2020-03-27] MEDS ORDERED: Insulin Glargine 20 UNITS in Pre-Filled Syringe 1 EACH SC SCH (21:00)
[2020-03-28] MEDS: Lactated Ringer's 1,000 ML IV SCH (00:28)
[2020-03-28] MEDS: HumaLOG 300 UNITS/3 ML VIAL SC PRN ×4 (00:29→12:20)
[2020-03-28 05:37] LABS: ALT (SGPT) 51 U/L (8-55); AST (SGOT) 35 U/L (5-34); Albumin 2.7 g/dL (3.5-5.0); Alkaline Phosphatase 82 U/L (40-110); Anion Gap 14 mmol/L (10-20); BUN (Urea Nitrogen) 20 mg/dL (8.4-25.7); Bilirubin, Total 0.7 mg/dL (0.2-1.2); Calc. Creatinine Clearance 112 mL/min (70-130); Carbon Dioxide 21 mmol/L (22-29); Chloride 106 mmol/L (98-107); Estimated GFR-MDRD Greater than 90; Globulin 2.3 g/dL (2.4-3.5); Glucose 165 mg/dL (70-105); Potassium 3.8 mmol/L (3.5-5.1); Sodium 137 mmol/L (136-145)
--- NOTE | 2020-03-28 06:25 | PDOC.FM ---
- Subjective Subjective: The patient says he feels well today. He denies headache, sweating, chills, chest pain, SOB, abdominal pain and edema. He says he is open to placement but is only interested in staying for a couple weeks. - Objective MAR Reviewed: Yes Vital Signs & Weight: Vital Signs (12 hours) Temp Pulse Resp BP Pulse Ox 03/28/20 05:02 97.6 F 73 17 127/79 100 03/28/20 00:18 97.6 F 76 16 133/76 100 03/28/20 00:00 99 03/27/20 19:59 98.2 F 85 18 123/73 99 Weight Weight 71.668 kg I&O: 03/26/20 03/27/20 03/28/20 06:59 06:59 06:59 Intake Total 1200 Output Total 200 900 Balance 1000 -900 Result Diagrams: 03/26/20 12:56 03/28/20 05:13 Phys Exam - Physical Examination Constitutional: NAD HEENT: moist MMs, sclera anicteric Neck: supple, full ROM Respiratory: no wheezing, clear to auscultation bilateral Cardiovascular: RRR, no significant murmur Gastrointestinal: soft, non-tender, positive bowel sounds Musculoskeletal: pulses present, edema present 1+ pitting edema Neurological: non-focal, moves all 4 limbs Lymphatic: no nodes Psychiatric: normal affect, A&O x 3 Skin: no rash, normal turgor Dx/Plan - Plan Plan: 1. 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 Hx of multiple admissions in adrenal crisis with associated acute metabolic encephalopathy after not taking home prednisone. nurse reported to PCP patient does not have support at home. Hypotensive 90s/50s in ED, given 10mg decadron, now stable. CT Brain showed chronic ventriculomegaly. Negative drug screen. -Received stress dose steroids 100mg IV hydrocortisone, then maintenance 50mg hydrocortisone IV Q6H, now discontinued -Continue home prednisone 60mg PO daily today 2. SIRS criteria met Temp 102.5 F and tachycardic 130's in ED. Now afebrile with HR in 70-80s. UA negative for nitrites/bacteria. LA 2.0. CXR showed nothing acute. Cefepime d/c' ed 03/27. - F/u urine and blood cultures 3. Indeterminant Trops Trop 0.039 -> 0.027, likely elevated from tachycardia (HR 130s) and demand. - Improved 4. DMII BG 437 yesterday afternoon. Given SS. Increased to 541. Given glargine 20 units and placed on aggressive SS. Improved afterward, 498 -> 348 -> 239 -> 165. - HH/DM diet - Discontinue LR maintanence fluids as patient can tolerate PO and BG has improved - Continue home lantus - Aggressive SS 7. Transaminitis, resolved Mild, per chart review possible baseline for patient. AST: 89 -> 51 -> 35, ALT: 63 -> 46 -> 51, Alk Phos: 124 -> 82 -> 82. -Monitor 8. Adult Stills Disease Pt has a hx of non-compliance with steroids once d/c'd home. - Continue home Anakinra, pharmacy to administer home medication, as not on formulary. 9. Combined kb/sys CHF Last echo 01/28/2020 with EF 60-65% and grade 1 diastolic dysfunction. Received LR overnight. - Monitor for symptoms of fluid overload 10. BPH Held due to low BP on admission - Restart tamsulosin Social considerations: Per chart review: MPOA is daughter, Akilah Nunez ) who lives in [place]. Pt lives with aunt, Cathy Hinds ([phone]), who is also delivery and mail sorter for another family member. Consulted case management for placement. Dvt ppx: Xarelto Code: Full PCP: Melanie Boyce Dispo: Placement to SNF vs. assisted living facility pending approval and symptom improvement Addendum - Attending - Attending Attestation Date/Time: 03/28/20 8542 I personally evaluated the patient and discussed the management with Dr. Comer. I agree with the History, Examination, Assessment and Plan documented above with any addition or exceptions noted below. Patient stable. Continues to do well on his home meds. He feels well. He continues to not have insight into his need for assistance with taking his medications and caring for him at home, as when he is caring for himself he is unable to do so adequate resulting in recurrent hospitalizations. He does not understand that his noncompliance is resulting in re-admissions. MMSE completed today showing cognitive dysfunction. Working with CM and APS regarding placement options.
[2020-03-28] MEDS: Ezetimibe 10 MG TAB PO SCH (08:00)
[2020-03-28] MEDS: Atorvastatin Calcium 20 MG TAB PO SCH (08:01)
[2020-03-28] MEDS: Rivaroxaban 10 MG TAB PO SCH (08:01)
[2020-03-28] MEDS: Carvedilol 3.125 MG TAB PO SCH (08:01)
[2020-03-28] MEDS: predniSONE 20 MG TAB PO SCH (08:01)
[2020-03-28] MEDS: Insulin Glargine 30 UNITS in Pre-Filled Syringe 1 EACH SC SCH (08:01)
[2020-03-28] MEDS: (Anakinra [Kineret] 100 MG) SC SCH (08:06)
[2020-03-28 16:13] VITALS: BP 115/76; TEMP 98.3
[2020-03-28] MEDS ORDERED: Tamsulosin HCl 0.4 MG CAP PO SCH (21:00)
--- NOTE | 2020-03-29 03:45 | DIS ---
DATE OF ADMISSION: 03/26/2020 DATE OF DISCHARGE: 03/28/2020 RESIDENT: Antonieta Comer MD ADMITTING ATTENDING: Paul Hall MD DISCHARGE ATTENDING: Paul Hall MD CONSULTS: None. PROCEDURES: None. PRIMARY DIAGNOSIS: Acute metabolic encephalopathy secondary to adrenal crisis in the setting of Still disease. SECONDARY DIAGNOSES: Hypokalemia, resolved. Hypophosphatemia, resolved. Type 2 diabetes. Transaminitis, resolved. Adult Still disease. Combined diastolic and systolic congestive heart failure. BPH. DISCHARGE MEDICATIONS: 1. Tramadol 50 mg p.o. q.6 hr p.r.n. 2. Methotrexate 0.4 mL subcu q.7 days. 3. Anakinra 100 mg subcu daily. 4. Lipitor 40 mg p.o. at bedtime. 5. Folic acid 1 mg tablet p.o. daily. 6. Levemir 35 units subcu q.a.m. 7. Prednisone 60 mg p.o. q.a.m. 8. Xarelto 20 mg p.o. q.p.m. 9. Flomax 0.4 mg p.o. q.p.m. 10. Coreg 3.125 mg p.o. b.i.d. 11. Zetia 10 mg p.o. q.a.m. DISCONTINUED MEDICATIONS: None. HISTORY OF PRESENT ILLNESS: Patient is a 59-year-old male who presented to the ED via EMS from home after his family reported the patient had decreased responsiveness after complaining of fever and chills. The patient has a history of acute metabolic encephalopathy secondary to medication nonadherence with prednisone and anakinra. In the ED, the patient was noted to have a temperature of 102.5 and tachycardic in the 130s. He met SIRS criteria, however, there was no source of infection. Urine culture was positive for Klebsiella, but patient has a history of UTI 2/2 Klebsiella infection and is likely colonized. The patient was found to have a potassium of 2.6 and phosphate <1.0 in the ED. He was given 20 mEq K as well as two 12 mmol potassium and phosphate. Potassium and phosphate normalized. The patient was initially hypoglycemic and given dextrose in the ED. Blood sugars improved to the 200s. He was started back on his daily dose of basal insulin. Overnight, blood glucose levels range 400-500s. He was given Lantus 20 units and increased to an aggressive sliding scale. The blood glucose then improved to 165. The patient was initially placed on stress dose steroids of 100 mg IV hydrocortisone, then transitioned to maintenance 50 mg hydrocortisone IV q.6h. The patient's mentation returned to baseline and he was transitioned to home prednisone 60 mg p.o. daily. The patient was noted to have mild transaminitis in the ED. LFTs were trended and resolved. Mini-mental status exam was completed during hospitalization. It was 20/30, indicating cognitive dysfunction. The patient graduated high school and went to trade school, therefore the score shows significant decrease. Due to recurrent hospitalizations in the setting of medication nonadherence, the patient was urged to go to placement after discharge. In the past, he has been resistant to this. He continues to not have insight into his need for assistance with taking medications and caring for himself, despite admitting he has difficulties remembering medication regimen. This was supported by nurse. The patient agreed to short term placement and was accepted to [facility]. He was deemed stable for discharge on 03/28/2020. DISPOSITION: Stable. DISCHARGE INSTRUCTIONS: 1. Location: [facility]. 2. Diet: Heart healthy and diabetic diet. 3. Activity: As tolerated. 4. Follow up with PCP, Dr. Xavi Boyce, within one week. Job ID: [id number] MTDD
== END 2020-03-28 16:50 | DRG 643 ==
LOC: ERS 12:00 → 2NO 14:33 → OBSVTOIN 14:34 → T4-A 03-27 11:26
PROVIDERS: ADMIT Family Medicine; ATTEND Family Medicine
DX: E27.2 Addisonian crisis (principal); G93.41 Metabolic encephalopathy; E87.2 Acidosis; R65.10 Systemic inflammatory response syndrome (SIRS) of non-infectious origin without acute organ dysfunction; I50.40 Unspecified combined systolic (congestive) and diastolic (congestive) heart failure; Z20.828 Contact with and (suspected) exposure to other viral communicable diseases; E27.40 Unspecified adrenocortical insufficiency; E78.5 Hyperlipidemia, unspecified; M06.1 Adult-onset Still's disease; E11.649 Type 2 diabetes mellitus with hypoglycemia without coma; N40.0 Benign prostatic hyperplasia without lower urinary tract symptoms; R79.89 Other specified abnormal findings of blood chemistry; E87.6 Hypokalemia; I11.0 Hypertensive heart disease with heart failure; R74.0 Nonspecific elevation of levels of transaminase and lactic acid dehydrogenase [LDH]; D64.9 Anemia, unspecified; E83.39 Other disorders of phosphorus metabolism; Z88.1 Allergy status to other antibiotic agents; Z79.4 Long term (current) use of insulin; Z11.9 Encounter for screening for infectious and parasitic diseases, unspecified; Z90.49 Acquired absence of other specified parts of digestive tract; Z98.1 Arthrodesis status; Z91.19 Patient's noncompliance with other medical treatment and regimen; Z79.01 Long term (current) use of anticoagulants
CPT/HCPCS: 36415; 36416; 36600; 70450; 71045; 80053; 80306; 80307; 81003; 81015; 82140; 82550; 83605; 83735; 84100; 84484; 85025; 87040; 87077; 87086; 87186; 93005; 96361; 96365; 96375; J0692; J1100; J1720; J1815; J3475; J3480; J3490; J7120; J7512; U0002

== ENCOUNTER 2020-04-11 09:30 | Observation (INO) | payer MEDICARE, OTHER ==
[2020-04-11] MEDS ORDERED: cefTRIAXone\\ROCEPHIN 1 GM VIAL ONE (10:03)
[2020-04-11 10:23] LABS: Bacteria/HPF None Seen HPF (None Seen); Bilirubin Negative (Negative); Blood, Urine Negative (Negative); Clarity Clear (Clear); Glucose, Urine (Dipstick) Greater than 1000 mg/dL (Negative); Ketone, Urine 40 mg/dL (Negative); Leukocyte 25 Leu/uL (Negative); Nitrite Negative (Negative); Protein, Urine (Dipstick) 70 mg/dL (Neg-Trace); RBC/HPF 0-3 HPF (0-3); Specific Gravity, Urine 1.035 (1.002-1.036); Squamous Epithelial 0-3 HPF (0-3); Urobilinogen Normal mg/dL (Less than 2)
--- NOTE | 2020-04-11 10:29 | RAD ---
Exam: Chest one view HISTORY:Tract infection. Sepsis. Comparison: 03/26/2020 FINDINGS: Cardiac silhouette:Normal cardiac silhouette. Aorta: Slightly elongated Pulmonary vessels: Normal Costophrenic angles: Clear LUNGS: No masses or consolidation. There are chronic lung parenchymal changes. Pneumothorax: None Osseous abnormalities: No acute osseous abnormalities. Severe degenerative change in the right should er. Left shoulder arthroplasty is identified. IMPRESSION: No acute cardiopulmonary process.
[2020-04-11 10:39] LABS: Hemoglobin 12.7 g/dL (14.0-18.0); Mean Corpuscular HGB CONC 32.1 g/dL (32.0-36.0); Mean Corpuscular Hemoglobin 28.8 pg (27.0-31.0); Mean Platelet Volume 8.7 fL (7.4-10.4); Platelet Count 194 thou/uL (130-400); RBC Distribution Width 16.9 % (11.5-14.5)
[2020-04-11 10:45] LABS: Anisocytosis SLIGHT = 6-15 cells (100X) (0-5/hpf); Band 14 % (5-11); Lymphocytes 28 % (21-51); MDiff Complete? YES; Monocytes 6 % (0-10); Neutrophil 52 % (42-75); Platelet Morphology Comment Appears Adequate; Polychromasia SLIGHT = 2-3 cells (100X) (0-2/hpf)
[2020-04-11 10:48] LABS: ALT (SGPT) 36 U/L (8-55); AST (SGOT) 29 U/L (5-34); Albumin 3.4 g/dL (3.5-5.0); Alkaline Phosphatase 88 U/L (40-110); Anion Gap 15 mmol/L (10-20); BUN (Urea Nitrogen) 16 mg/dL (8.4-25.7); Bilirubin, Total 0.8 mg/dL (0.2-1.2); Calc. Creatinine Clearance 0 mL/min (70-130); Calcium 8.6 mg/dL (7.8-10.44); Carbon Dioxide 25 mmol/L (22-29); Chloride 103 mmol/L (98-107); Estimated GFR-MDRD Greater than 90; Globulin 3.1 g/dL (2.4-3.5); Glucose 233 mg/dL (70-105); Potassium 4.1 mmol/L (3.5-5.1); Protein, Total 6.5 g/dL (6.0-8.3); Sodium 139 mmol/L (136-145)
--- NOTE | 2020-04-11 13:31 | PDOC.FPRHP ---
- History of Present Illness Chief Complaint: AMS History of Present Illness: 59 y/o M with PMHx of Still's disease, IDDM, and adrenal insufficiency, history of multiple hospital admission d/t medical noncompliance presented to the ED today of purulent drainage from his urethral meatus. He has not had fevers. He denied any pain at this time. No other complaints. ED Course: ceftriaxone 1g - Allergies/Adverse Reactions Allergies Allergy/AdvReac Type Severity Reaction Status Date / Time vancomycin Allergy Intermediate Verified 04/11/20 15:06 - Home Medications Medication Instructions Recorded Confirmed Type Atorvastatin Calcium [Lipitor] 40 mg PO HS 10/18/15 04/11/20 History Anakinra [Kineret] 100 mg SQ DAILY 09/01/18 04/11/20 History Ezetimibe [Zetia] 10 mg PO QAM tab 01/03/19 04/11/20 Rx Carvedilol [Coreg] 3.125 mg PO BID #0 tab 03/22/20 04/11/20 Rx Folic Acid 1 tab PO DAILY 03/27/20 04/11/20 History Insulin Detemir [Levemir] 35 units SQ QAM 03/27/20 04/11/20 History Methotrexate Sodium/PF 0.4 ml SQ Q7DAYS 03/27/20 04/11/20 History [Methotrexate 25 mg/ml Vial] Rivaroxaban [Xarelto] 1 tab PO QPM 03/27/20 04/11/20 History Tamsulosin HCl [Flomax] 0.4 mg PO QPM 03/27/20 04/11/20 History predniSONE 60 mg PO QAM 03/27/20 04/11/20 History traMADol HCl [Tramadol HCl] 50 mg PO Q6HR PRN 03/27/20 04/11/20 History - History PMHx: - DMII, HTN, Still's Disease, HLD, Adrenal Insufficiency PSHx: - Cholecystectomy, L shoulder surgery, L knee surgery, C spine fusion FHx: - non contributory Social: - lives with aunt according to previous records -no drug, tobacco, etoh use - Review of Systems General: reports: fatigue. denies: fever/chills, weight/appetite/sleep changes , night sweats Eyes: denies: eye pain ENT: denies: nasal congestion, rhinorrhea Respiratory: denies: cough, congestion, shortness of breath Cardiovascular: denies: chest pain, palpitation, edema, paroxysmal nocturnal dyspnea, orthopnea Gastrointestinal: denies: nausea, vomiting, diarrhea, constipation Genitourinary: reports: discharge Skin: denies: rashes, lesions, jaundice, itching Musculoskeletal: denies: pain, tenderness, stiffness, swelling Neurological: denies: numbness, syncope, seizure, weakness Psychological: denies: anxiety, depression - Vital signs BP: 103/64, HR 93, RR 20, 98.1, 99% on RA - Physical Exam -Constitutional: pt asleep in bed. not responding to questions, but following commands. uncooperative with physical exam. HEENT: PERRLA Neck: supple Chest: no-tender to palpation, no lesions Heart: RRR, normal S1/S2 -Lungs: uncooperative, did not lean forward for me to listen to bases of lungs Abdomen: soft, non-tender, bowel sounds present, no masses/distention Musculoskeletal: normal tone Skin: no rash/lesions, good turgor, capillary refill <2 seconds, no jaundice Heme/Lymphatic: no unusual bruising or bleeding, no purpura, no petechia -Psychiatric: pt was following commands, however, did not want to answer questions. did respond with shaking and nodding to yes and no questions. FMR H&P: Results - Labs Result Diagrams: 04/12/20 04:52 04/12/20 04:52 Lab results: WBC 6.0 thou/uL (4.8-10.8) 04/11/20 09:54 Hgb 12.7 g/dL (14.0-18.0) L 04/11/20 09:54 Hct 39.6 % (42.0-52.0) L 04/11/20 09:54 MCV 90.0 fL (78.0-98.0) 04/11/20 09:54 Plt Count 194 thou/uL (130-400) 04/11/20 09:54 Band Neuts % (Manual) 14 % (5-11) H 04/11/20 09:54 Sodium 139 mmol/L (136-145) 04/11/20 09:54 Potassium 4.1 mmol/L (3.5-5.1) 04/11/20 09:54 Chloride 103 mmol/L (98-107) 04/11/20 09:54 Carbon Dioxide 25 mmol/L (22-29) 04/11/20 09:54 BUN 16 mg/dL (8.4-25.7) 04/11/20 09:54 Creatinine 1.02 mg/dL (0.7-1.3) 04/11/20 09:54 Glucose 233 mg/dL (70-105) H 04/11/20 09:54 Lactic Acid 1.5 mmol/L (0.5-2.2) 04/11/20 09:54 Calcium 8.6 mg/dL (7.8-10.44) 04/11/20 09:54 Total Bilirubin 0.8 mg/dL (0.2-1.2) 04/11/20 09:54 AST 29 U/L (5-34) 04/11/20 09:54 ALT 36 U/L (8-55) 04/11/20 09:54 Alkaline Phosphatase 88 U/L (40-110) 04/11/20 09:54 Serum Total Protein 6.5 g/dL (6.0-8.3) 04/11/20 09:54 Albumin 3.4 g/dL (3.5-5.0) L 04/11/20 09:54 Urine Ketones 40 mg/dL (Negative) A 04/11/20 09:50 Urine Blood Negative (Negative) 04/11/20 09:50 Urine Nitrite Negative (Negative) 04/11/20 09:50 Ur Leukocyte Esterase 25 David/uL (Negative) A 04/11/20 09:50 Urine RBC 0-3 HPF (0-3) 04/11/20 09:50 Urine WBC 7-10 HPF (0-3) A 04/11/20 09:50 Ur Squamous Epith Cells 0-3 HPF (0-3) 04/11/20 09:50 Urine Bacteria None Seen HPF (None Seen) 04/11/20 09:50 - EKG Interpretation EKG: normal sinus rhythm, LVH - Radiology Interpretation Chest x-ray Status: image reviewed by me, report reviewed by me (no acute cardiopulmonary process) FMR H&P: A/P - Plan 59 y/o M with PMHx of Still's disease, IDDM, and adrenal insufficiency, history of multiple hospital admission d/t medical noncompliance presented to the ED today of purulent drainage from his urethral meatus. ##Acute Metabolic Encephalopathy This is most likely due to medicine noncompliance, however, ddx includes encephalopathy due to patient's UTI. Pt's baseline mental status is unknown to me, he is oriented, however with GCS 14. His MME from last hospitalization was 20/. -will restart home meds -will obtain blood and urine clx -f/u with AM labs -electrolytes wnl -CXR wnl ##UTI -see plan as above -will continue ceftriaxone from ED -UA showed WBCs, leuks, blood ##Hx of previous DVT -last hospitalization patient had DVT of R popliteal v -currently on xarelto Chronic Conditions -Still's disease: continue home meds, will need to ask family to bring anakinra as this is not on formulary -IDDM: continue home meds -BPH: continue home meds -HTN: continue home meds -HLD: continue home meds CODE: Full VTE: Xarelto DIET: Regular PCP: Melanie Boyce Social considerations: per chart review, MPOA is daughter Akilah Nunez who lives in [place]. Pt lives with aunt Cathy Hinds [phone], who is also court of appeals judge for another family member. patient was staying at [facility] after last hospitalization and is now back at home. Dispo: admitted to telemetry for observation. will continue to monitor mental status. FMR H&P: Upper Level - Plan Date/Time: 04/11/20 1330 I, Polo Mccall pgy3, have evaluated this patient and agree with findings/plan as outlined by sourcing internship resident. Pertinent changes/additions are listed here. 59yo M presenting with penile complaint is now being admitted for slight altered mental status/encephalopathy 2/2 known adult stills disease. He will have home meds restarted and will be treated for UTI. Addendum - Attending - Attending Attestation Date/Time: 04/12/20 0841 I personally evaluated the patient and discussed the management with the team. I agree with the History, Examination, Assessment and Plan documented above with any addition or exceptions noted below.
[2020-04-11] MEDS ORDERED: Senokot S 8.6-50 MG TAB PO PRN (13:38)
[2020-04-11] MEDS ORDERED: Acetaminophen 325 MG TAB PO PRN (13:38)
[2020-04-11] MEDS ORDERED: traMADol HCl 50 MG TAB PO PRN (13:43)
[2020-04-11] MEDS ORDERED: (Anakinra [Kineret] 100 MG) SQ SCH (13:43)
[2020-04-11] MEDS ORDERED: Dextrose 5% in Water 1,000 ML IV PRN ×2 (14:27→20:59)
[2020-04-11] MEDS ORDERED: Dextrose 50% Abboject 50 ML SYRINGE SLOW IVP PRN ×2 (14:27→20:59)
[2020-04-11] MEDS ORDERED: Ezetimibe 10 MG TAB PO SCH (14:30)
[2020-04-11 14:46] VITALS: BMI 22.9
[2020-04-11] MEDS: HumaLOG 300 UNITS/3 ML VIAL SC PRN (16:47)
[2020-04-11] MEDS: Famotidine 20 MG TAB PO SCH (20:50)
[2020-04-11] MEDS: Carvedilol 3.125 MG TAB PO SCH (20:50)
[2020-04-11] MEDS ORDERED: HumaLOG 300 UNITS/3 ML VIAL SC PRN (20:59)
[2020-04-11] MEDS ORDERED: Tamsulosin HCl 0.4 MG CAP PO SCH (21:00)
[2020-04-11] MEDS ORDERED: Atorvastatin Calcium 20 MG TAB PO SCH (21:00)
[2020-04-12 05:37] LABS: #Eosinphils 0.1 thou/uL (0.0-0.7); #Lymphocytes 1.2 thou/uL (1.20-3.40); #Monocytes 0.5 thou/uL (0.11-0.59); #Neutrophils 4.6 thou/uL (1.40-6.50); %Basophils 0.2 % (0.0-1.0); %Eosinophils 1.2 % (0.0-10.0); %Lymphocytes 18.6 % (21.0-51.0); %Monocytes 7.2 % (0.0-10.0); %Neutrophils 72.8 % (42.0-75.0); Hemoglobin 11.4 g/dL (14.0-18.0); Mean Corpuscular HGB CONC 32.7 g/dL (32.0-36.0); Mean Corpuscular Hemoglobin 29.1 pg (27.0-31.0); Mean Corpuscular Volume 88.9 fL (78.0-98.0); Platelet Count 165 thou/uL (130-400); RBC Distribution Width 16.6 % (11.5-14.5); Red Blood Cell (RBC) Count 3.91 mill/uL (4.70-6.10); White Blood Cell (WBC) Count 6.3 thou/uL (4.8-10.8)
--- NOTE | 2020-04-12 05:51 | PDOC.FM ---
- Subjective Subjective: Pt resting in bed awake and eating breakfast this AM. No acute events overnight. States that he is feeling much better today. No having dysuria. - Objective Vital Signs & Weight: Vital Signs (12 hours) Temp Pulse Resp BP BP Pulse Ox 04/12/20 05:10 98.5 F 85 20 120/58 L 99 04/12/20 00:30 98.5 F 88 20 103/62 97 04/11/20 21:00 97.7 F 90 20 105/55 L 99 Weight Weight 66.451 kg I&O: 04/10/20 04/11/20 04/12/20 06:59 06:59 06:59 Intake Total 560 Output Total 1350 Balance -790 Result Diagrams: 04/12/20 04:52 04/12/20 04:52 Phys Exam - Physical Examination Constitutional: NAD HEENT: moist MMs Neck: supple Respiratory: no wheezing, no rales, no rhonchi Cardiovascular: RRR, no significant murmur, no rub Gastrointestinal: soft, non-tender, no distention, positive bowel sounds Musculoskeletal: pulses present Neurological: normal sensation, moves all 4 limbs Psychiatric: normal affect, A&O x 3 Skin: no rash, normal turgor, cap refill <2 seconds Dx/Plan - Plan Plan: 59 y/o M with PMHx of Still's disease, IDDM, and adrenal insufficiency, history of multiple hospital admission d/t medical noncompliance presented to the ED today of purulent drainage from his urethral meatus. ##Acute Metabolic Encephalopathy This is most likely due to medicine noncompliance, however, ddx includes encephalopathy due to patient's UTI. Pt's baseline mental status is unknown to me, he is oriented, however with GCS 14. His MME from last hospitalization was . -will restart home meds -will obtain blood clx no growth -urine clx pend -f/u with AM labs -electrolytes wnl -CXR wnl ##UTI -see plan as above -will continue ceftriaxone from ED -UA showed WBCs, leuks, blood ##Hx of previous DVT -last hospitalization patient had DVT of R popliteal v -currently on xarelto ##Anemia -due to past recent labs this is due to iron deficiency -continue folic acid and add iron supplementation Chronic Conditions -Still's disease: continue home meds, will need to ask family to bring anakinra as this is not on formulary -IDDM: continue home meds -BPH: continue home meds -HTN: continue home meds -HLD: continue home meds CODE: Full VTE: Xarelto DIET: Regular PCP: Melanie Boyce Social considerations: per chart review, ZULEYKA is daughter Akilah Nunez who lives in [place]. Pt lives with aunt Cathy iHnds [phone], who is also supervisor electronic testing for another family member. patient was staying at [facility] after last hospitalization and is now back at home. Dispo: admitted to telemetry for observation. A&O x3. more alert today than yesterday. Addendum - Attending - Attending Attestation Date/Time: 04/12/20 0341 I personally evaluated the patient and discussed the management with the team. I agree with the History, Examination, Assessment and Plan documented above with any addition or exceptions noted below. Eating this AM and alert and oriented. No cp/sob/n/v/f/c. Plan for dc today.
[2020-04-12 06:03] LABS: ALT (SGPT) 28 U/L (8-55); AST (SGOT) 22 U/L (5-34); Albumin 2.8 g/dL (3.5-5.0); Alkaline Phosphatase 74 U/L (40-110); Anion Gap 15 mmol/L (10-20); BUN (Urea Nitrogen) 22 mg/dL (8.4-25.7); Bilirubin, Total 0.5 mg/dL (0.2-1.2); Calc. Creatinine Clearance 78 mL/min (70-130); Calcium 8.1 mg/dL (7.8-10.44); Carbon Dioxide 22 mmol/L (22-29); Chloride 104 mmol/L (98-107); Estimated GFR-MDRD Greater than 90; Globulin 2.7 g/dL (2.4-3.5); Glucose 272 mg/dL (70-105); Potassium 4.2 mmol/L (3.5-5.1); Protein, Total 5.5 g/dL (6.0-8.3); Sodium 137 mmol/L (136-145)
[2020-04-12] MEDS: HumaLOG 300 UNITS/3 ML VIAL SC PRN (06:07)
[2020-04-12] MEDS ORDERED: predniSONE 20 MG TAB PO SCH ×2 (07:45→09:00)
[2020-04-12] MEDS: Famotidine 20 MG TAB PO SCH (08:43)
[2020-04-12] MEDS: Carvedilol 3.125 MG TAB PO SCH (08:43)
[2020-04-12] MEDS ORDERED: cefTRIAXone\\ROCEPHIN 1 GM in Sodium Chloride 0.9% 100 ML IVPB SCH (09:00)
[2020-04-12] MEDS ORDERED: INSULIN DETEMIR 35 UNIT SQ SCH (09:00)
[2020-04-12] MEDS ORDERED: Folic Acid 1 MG TAB PO SCH (09:00)
[2020-04-12] MEDS ORDERED: Ezetimibe 10 MG TAB PO SCH (09:00)
[2020-04-12] MEDS ORDERED: Insulin Glargine 35 UNITS in Pre-Filled Syringe 1 EACH SC SCH (09:00)
[2020-04-12 09:44] VITALS: BP 107/57; TEMP 98.7
[2020-04-12 14:06] LABS: SARS-CoV-2 MS2 Positive; SARS-CoV-2 N Gene Negative; SARS-CoV-2 S Gene Negative; SARS-CoV-2 by NAA Not Detected (NotDetected); SARS-CoV-2 orf1ab Negative
[2020-04-12] MEDS ORDERED: Rivaroxaban 10 MG TAB PO SCH (18:00)
--- NOTE | 2020-04-12 18:37 | DIS ---
DATE OF ADMISSION: 04/11/2020 DATE OF DISCHARGE: 04/12/2020 CONSULTS: None. PROCEDURES: Chest x-ray on 04/11/20 showed no acute cardiopulmonary process. PRIMARY DIAGNOSIS: Altered mental status secondary to medical noncompliance, suspected urinary tract infection. SECONDARY DIAGNOSES: Adult Still disease, adrenal insufficiency, insulin- dependent diabetes, hyperlipidemia. DISCHARGE MEDICATIONS: 1. Lipitor 40. 2. Kineret 100 mg. 3. Zetia 10 mg. 4. Coreg 3.125 mg p.o. b.i.d. 5. Tramadol 50 mg p.o. q.6. 6. Xarelto 1 tab daily. 7. Levemir 35 units. 8. Folic acid one tab. 9. Methotrexate 0.4 mL. 10. Prednisone 60 mg q.a.m. 11. Flomax 0.4 mg. 12. Lantus 35 units. 13. Iron one tab daily. Discontinued medications: None. HISTORY OF PRESENT ILLNESS AND HOSPITAL COURSE: This is a 59-year-old male with past medical history as above with history of multiple admissions for medical noncompliance, who presented to the emergency department with concerns of purulent drainage from his urethral meatus. He had not had any fevers. Denied any dysuria, polyuria, or back pain. He had no other complaints. The labs were within normal limits. Urine culture did not grow bacteria. The patient initially was very somnolent on exam, however was following commands. With medication administration and stay overnight, patient was awake, fully alert and feeling better the next day. He was encouraged and counseled to take his medications and found that there were no financial barriers to this. He stated that he does live with his aunt who looks out for him. He voiced understanding. DISPOSITION: Stable. DISCHARGE INSTRUCTIONS: Location: Home. Diet: Heart healthy. Activity: As tolerated. Followup: In 1 to 2 weeks with primary care physician. Job ID: [id number] MTDChano
[2020-04-13] MEDS ORDERED: predniSONE 20 MG TAB PO SCH (08:00)
--- NOTE | 2020-04-19 15:32 | EKG ---
Test Reason : Blood Pressure : / mmHG Vent. Rate : 099 BPM Atrial Rate : 099 BPM P-R Int : 148 ms QRS Dur : 084 ms QT Int : 356 ms P-R-T Axes : 057 015 016 degrees QTc Int : 456 ms Normal sinus rhythm Minimal voltage criteria for LVH, may be normal variant Borderline ECG Confirmed by CARYL BOBBY DO ([id number]), movie editor NANCY MILES ([id number]) on 04/19/2020 3:32:42 PM Referred By: Confirmed By:CARYL BOBBY DO
== END 2020-04-12 13:13 | disposition home or self-care (01) ==
LOC: ERS 09:30 → 2SW 14:06
PROVIDERS: ADMIT Emergency Medicine; ATTEND Emergency Medicine
DX: G93.41 Metabolic encephalopathy (principal); N39.0 Urinary tract infection, site not specified; I10 Essential (primary) hypertension; E11.9 Type 2 diabetes mellitus without complications; E27.40 Unspecified adrenocortical insufficiency; E78.5 Hyperlipidemia, unspecified; M06.1 Adult-onset Still's disease; Z79.01 Long term (current) use of anticoagulants; Z79.4 Long term (current) use of insulin; Z79.899 Other long term (current) drug therapy; Z86.718 Personal history of other venous thrombosis and embolism; Z88.1 Allergy status to other antibiotic agents; Z91.14 Patient's other noncompliance with medication regimen; Z20.828 Contact with and (suspected) exposure to other viral communicable diseases
CPT/HCPCS: 51702; 71045; 80053 ×2; 82962; 83605; 85025 ×2; 87040; 87086; 93005; 96365; 97110; 97116; 97139 ×3; 99285; U0003; 36415; 36416; 81003; 81015; 87635; 96376; G0378; J0696; J1815; J3490; J7512

== ENCOUNTER 2020-04-20 14:02 | Inpatient (IN) | payer MEDICARE ==
[2020-04-20] MEDS ORDERED: Acetaminophen 650 MG Suppository ONE (14:10)
[2020-04-20] MEDS ORDERED: Azithromycin 500 MG VIAL ONE (14:10)
[2020-04-20] MEDS ORDERED: cefTRIAXone\\ROCEPHIN 2 GM VIAL ONE (14:10)
[2020-04-20] MEDS ORDERED: Acetaminophen 325 MG Suppository ONE (14:10)
[2020-04-20] MEDS ORDERED: Norepinephrine 8 MG/0.9% NS 250 ML ONE (14:30)
[2020-04-20 15:40] LABS: SARS-CoV-2 NAA Rapid Test Not Detected (NotDetected)
[2020-04-20 15:45] LABS: Hemoglobin 11.4 g/dL (14.0-18.0); Mean Corpuscular HGB CONC 33.7 g/dL (32.0-36.0); Mean Platelet Volume 7.9 fL (7.4-10.4); Platelet Count 192 thou/uL (130-400); RBC Distribution Width 16.6 % (11.5-14.5); Red Blood Cell (RBC) Count 3.79 mill/uL (4.70-6.10); White Blood Cell (WBC) Count 27.3 thou/uL (4.8-10.8)
[2020-04-20 16:04] LABS: Bacteria/HPF None Seen HPF (None Seen); Bilirubin Negative (Negative); Blood, Urine Trace (Negative); Clarity Clear (Clear); Glucose, Urine (Dipstick) 200 mg/dL (Negative); Ketone, Urine 10 mg/dL (Negative); Leukocyte Negative Leu/uL (Negative); Nitrite Negative (Negative); Protein, Urine (Dipstick) 100 mg/dL (Neg-Trace); RBC/HPF 0-3 HPF (0-3); Squamous Epithelial 0-3 HPF (0-3); Urobilinogen Normal mg/dL (Less than 2)
[2020-04-20 16:04] LABS: ALT (SGPT) 22 U/L (8-55); AST (SGOT) 45 U/L (5-34); Albumin 2.4 g/dL (3.5-5.0); Alkaline Phosphatase 83 U/L (40-110); Anion Gap 17 mmol/L (10-20); BUN (Urea Nitrogen) 11 mg/dL (8.4-25.7); Bilirubin, Total 0.6 mg/dL (0.2-1.2); Calc. Creatinine Clearance 0 mL/min (70-130); Calcium 6.6 mg/dL (7.8-10.44); Carbon Dioxide 16 mmol/L (22-29); Chloride 109 mmol/L (98-107); Estimated GFR-MDRD 65; Globulin 1.9 g/dL (2.4-3.5); Glucose 143 mg/dL (70-105); Potassium 3.4 mmol/L (3.5-5.1); Protein, Total 4.3 g/dL (6.0-8.3); Sodium 139 mmol/L (136-145)
[2020-04-20 16:07] LABS: Anisocytosis SLIGHT = 6-15 cells (100X) (0-5/hpf); Band 37 % (5-11); Lymphocytes 6 % (21-51); MDiff Complete? YES; Metamyelocyte 2 % (0-0); Neutrophil 55 % (42-75); Platelet Morphology Comment Appears Adequate; Poikilocytosis SLIGHT = 6-15 cells (100X) (0-5/hpf); Reflex for Review?? YES; Toxic Granulation SLIGHT; Vacuoles MODERATE
[2020-04-20] MEDS ORDERED: Aspirin 300 MG Suppository ONE (16:22)
[2020-04-20 16:25] LABS: CKMB 2.3 ng/mL (0-6.6)
--- NOTE | 2020-04-20 16:38 | RAD ---
Exam: Chest one view HISTORY:Urinary tract infection and sepsis. Comparison: 04/11/2020 FINDINGS: Cardiac silhouette:Cardiomegaly. Aorta: Unremarkable Pulmonary vessels: Normal Costophrenic angles: Small bilateral pleural effusions. LUNGS: Bibasilar interstitial and alveolar opacities. Pneumothorax: None Osseous abnormalities: Diffuse bone demineralization. IMPRESSION: Minimal bilateral pleural effusions and bilateral interstitial and alveolar opacities. Co rrelate for heart failure. Superimposed infiltrate cannot be excluded. Continued surveillance is recommended.
[2020-04-20] MEDS ORDERED: EPINEPHrine 4 MG in Dextrose 5% in Water 250 ML IV SCH (16:45)
[2020-04-20 18:51] LABS: Lactic Acid 1.7 mmol/L (0.5-2.2)
[2020-04-20 18:59] LABS: Troponin I 0.281 ng/mL (< 0.028)
--- NOTE | 2020-04-20 19:00 | PDOC.FPRHP ---
- History of Present Illness Chief Complaint: AMS History of Present Illness: Patient is a 59 year old male with a history of Still's disease, HTN, CHF (EF 40 -45%), HLD, DMII and DVT presents to the ED via EMS with reports of AMS since this am. Per EMS report, the patient's family reported the patient had a fever for the past few days with acute mental status change today described as nonresponsive. The patient has a history of frequent hospitalizations (4 in the past 1 month) associated with noncompliance with medications that results in adrenal crisis. In the past, the patient stated that he does not have help at home and gets confused about his medication regimen. Today, the patient is able to follow commands. He nodded no when asked ROS questions. Further history obtained from chart review. In EMS, the patient found to have systolic 90s, tachycardia, sats in 80s on 2L and febrile at 101.6T. 1400 cc NS administered. ED Course: In the ED, the patient received 2L NS. Hypotension noted, lowest systolic in 60s. Tachypneic in 30s. Central line placed. Epi drip and levophed started. Placed on 3L O2. ASA, Tylenol, azithromycin and ceftriaxone administered. BP improved to systolic 110s. - Allergies/Adverse Reactions Allergies Allergy/AdvReac Type Severity Reaction Status Date / Time vancomycin Allergy Intermediate Verified 04/11/20 15:06 - Home Medications Medication Instructions Recorded Confirmed Type Atorvastatin Calcium [Lipitor] 40 mg PO HS 10/18/15 04/11/20 History Anakinra [Kineret] 100 mg SQ DAILY 09/01/18 04/11/20 History Ezetimibe [Zetia] 10 mg PO QAM tab 01/03/19 04/11/20 Rx Carvedilol [Coreg] 3.125 mg PO BID #0 tab 03/22/20 04/11/20 Rx Folic Acid 1 tab PO DAILY 03/27/20 04/11/20 History Insulin Detemir [Levemir] 35 units SQ QAM 03/27/20 04/11/20 History Methotrexate Sodium/PF 0.4 ml SQ Q7DAYS 03/27/20 04/11/20 History [Methotrexate 25 mg/ml Vial] Rivaroxaban [Xarelto] 1 tab PO QPM 03/27/20 04/11/20 History Tamsulosin HCl [Flomax] 0.4 mg PO QPM 03/27/20 04/11/20 History predniSONE 60 mg PO QAM 03/27/20 04/11/20 History traMADol HCl [Tramadol HCl] 50 mg PO Q6HR PRN 03/27/20 04/11/20 History Insulin Glargine [Lantus Vial] 35 units SC QAM vial 04/12/20 Rx Iron,Carbonyl/Ascorbic Acid [Iron 1 tablet PO DAILY #30 tablet 04/12/20 Rx 100-Vitamin C] - History PMHx: DMII, HTN, Still's disease, HLD, Adrenal insufficiency, DVT, CHF (2019 showed EF 40-45%, 1/3 diastolic dysfunction), BPH PSHx: Cholecystectomy, L shoulder surgery, L knee surgery, C spine fusion FHx: noncontributory Social: No history of tobacco, alcohol or drug use. Lives at home with aunt. Has HH. Previously discharged to rehab following hospitalization. - Review of Systems ROS unobtainable: due to mental status - Vital signs BP: [119/71] HR: [98] RR: [28] Tmax: [101.6] Pox: [100]% on [3L] Wt: [70.2kg] - Physical Exam Constitutional: NAD -Constitutional: Awake. Diaphoretic. HEENT: normocephalic and atraumatic, PERRLA, no scleral icterus -HEENT: Dry mucous membranes Neck: supple, trachea midline Chest: no lesions Heart: RRR, normal S1/S2 -Heart: 4+ pitting edema, feet and ankles bilaterally. 2+ pitting edema up to knee bilaterally. Lungs: CTAB, no respiratory distress Abdomen: soft, bowel sounds present, no masses/distention Musculoskeletal: ROM grossly normal -Neurological: A&O x 0. GCS 11 (spontaneous eye response, no verbal response, obeys commands). Skin: capillary refill <2 seconds, no jaundice Heme/Lymphatic: no unusual bruising or bleeding FMR H&P: Results - Labs Result Diagrams: 04/21/20 03:30 04/20/20 15:28 Lab results: WBC 27.3 thou/uL (4.8-10.8) H 04/20/20 15:28 Hgb 11.4 g/dL (14.0-18.0) L 04/20/20 15:28 Hct 33.7 % (42.0-52.0) L 04/20/20 15:28 MCV 89.0 fL (78.0-98.0) 04/20/20 15:28 Plt Count 192 thou/uL (130-400) 04/20/20 15:28 Band Neuts % (Manual) 37 % (5-11) H 04/20/20 15:28 Sodium 139 mmol/L (136-145) 04/20/20 15: Potassium 3.4 mmol/L (3.5-5.1) L 04/20/20 15: Chloride 109 mmol/L (98-107) H 04/20/20 15:28 Carbon Dioxide 16 mmol/L (22-29) L 04/20/20 15:28 BUN 11 mg/dL (8.4-25.7) 04/20/20 15: Creatinine 1.36 mg/dL (0.7-1.3) H 04/20/20 15:28 Glucose 143 mg/dL (70-105) H 04/20/20 15:28 Lactic Acid 1.7 mmol/L (0.5-2.2) 04/20/20 18:04 Calcium 6.6 mg/dL (7.8-10.44) L 04/20/20 15: Total Bilirubin 0.6 mg/dL (0.2-1.2) 04/20/20 15:28 AST 45 U/L (5-34) H 04/20/20 15:28 ALT 22 U/L (8-55) 04/20/20 15:28 Alkaline Phosphatase 83 U/L (40-110) 04/20/20 15:28 CK-MB (CK-2) 2.3 ng/mL (0-6.6) 04/20/20 15: B-Natriuretic Peptide 86.2 pg/mL (0-100) 04/20/20 15: Serum Total Protein 4.3 g/dL (6.0-8.3) L 04/20/20 15:28 Albumin 2.4 g/dL (3.5-5.0) L 04/20/20 15:28 Urine Ketones 10 mg/dL (Negative) A 04/20/20 15:42 Urine Blood Trace (Negative) A 04/20/20 15:42 Urine Nitrite Negative (Negative) 04/20/20 15:42 Ur Leukocyte Esterase Negative Dvaid/uL (Negative) 04/20/20 15:42 Urine RBC 0-3 HPF (0-3) 04/20/20 15:42 Urine WBC 4-6 HPF (0-3) A 04/20/20 15:42 Ur Squamous Epith Cells 0-3 HPF (0-3) 04/20/20 15:42 Urine Bacteria None Seen HPF (None Seen) 04/20/20 15:42 - EKG Interpretation EKG: Sinus tachy at 146. Possible T wave inversion in lead III and aVF. Possible ST segment depression in lead V4, V5, V6. Pre chart review, previous EKGG noted T wave inversions. FMR H&P: A/P - Plan Acute metabolic encephalopathy likely 2/2 adrenal crisis in the setting of Still 's disease Hx of multiple admissions in adrenal crisis with associated acute metabolic encephalopathy after not taking home prednisone. Unable to determine if patient has been taking meds appropriately. EMS report of patient experiencing fever for multiple days prior to AMS supports uncontrolled Still's disease. Hypotension and tachycardia would be due to adrenal crisis. Cannot, however, rule out possible infectious cause at this time. -Stress dose 100mg IV hydrocortisone, then maintenance 50mg hydrocortisone IV Q6H -Will transition to daily prednisone PO once mentation improves -Contact family to obtain Anakinra -MME 20/30 at recent admission. Consider MoCA once mentation improves to assess decision making abilities + SIRS criteria Patient meets SIRS criteria based on temp 101.6, tachycardia, tachypnea and elevated WBC. No source of infection identified. UA negative. CXR did show minimal bilateral pleural effusion and bilateral interstitial and aveolar opacities, however it appears similar to CXR from previous admission. Patient has a history of elevated WBC due to Still's disease, however level is higher than typical for patient. Last time WBC was above 20, infectious workup was completed and negative. Given ceftriaxone and azithromycin in ED. -F/u blood and urine cultures -LR @ 110 for maintanence fluids -Levophed for hypotension, titrating down as tolerated. Anticipate BP will improved with steroid dose -Begin cefepime 2mg Q12H for empiric coverage, renally dosed -Repeat CXR in am Lactic acidosis Lactic acid 4.0 in ED, improved to 1.7. -Improving Hypocalcemia Ca low at 6.6 in ED. -Electrolyte repletion protocol Hypokalemia K borderline low at 3.4 in ED. -Electrolyte repletion protocol Indeterminate trop Trop 0.167 -> 0.281. Likely due to strain related to tachycardia. -Trend trop CARL Creatinine 1.36 in ED, baseline around 0.7. Likely 2/2 dehydration based on exam. -LR at 110 overnight -Monitor with am labs -Renally dose meds DMII BG stable on admission. -Moderate SS -Resume home meds Adult Stills Disease Pt has a hx of non-compliance with steroids once d/c'd home. -Obtain home Anakinra from family as medication is not on formulary. Combined CHF Last echo 02/2020 showed EF 40-45%, 1/3 diastolic dysfunction. BNP 86 in ED. - Monitor for symptoms of fluid overload BPH -Hold home med due to hypotension in ED DVT Patient currently on Xarelto for DVT diagnosed during 03/10 hospital admission. -Continue current dose Social considerations: Per chart review: MPOA is daughter, Akilah Nunez ) who lives in [place]. Pt lives with aunt, Cathy Hinds ([phone]), who is also engagement lead for another family member. Consulted case management for possible placement. Patient has previously agreed to short term stay but will discuss recommendation for long-term placement when mentation improves. Dvt ppx: Xarelto Code: Full PCP: Melanie Boyce Dispo: admit to CCU, expected LOS > 48 hours. Will discuss possible placement after discharge once mentation improves. FMR H&P: Upper Level - Plan Date/Time: 04/20/20 154 IDang, have evaluated this patient and agree with findings/plan as outlined by continuous improvement intern resident. Pertinent changes/additions are listed here. 59 yo M with PMH Stills disease on immunosuppression, IDDM2, adrenal insufficiency presented to ED with AMS for one day. Family called EMS. Limited history available. Did not respond to initial fluid resuscitation, fem line placed in ED and on levaphed. ROS unable to obtain due to mental status. Denies pain. PE: Follows commands to squeeze hands, wiggle toes, does not speak any words but will shake head to respond to questions. HEENT: PERRL, mucous membranes dry Heart: RRR, no murmur Lungs: anteriorly CTAB, limited exam Ab: soft, NT, ND Ext: BLE with 3-4+ pitting edema up to knees PMH reviewed SIRS, unknown source - in setting of adrenal insufficiency. Presented with hypotension, tachycardia, WBC 27, fever 101.6. Lactic acid 4.7. - ED gave zithromax, ceftriaxone, ASA, tylenol, 2L, levophed -Continue Cefepime(04/20) pending cultures. Clinical course could be 2/2 missed home steroid doses as has been reason for frequent admission with similar presentation but he does have a leukocytosis with bandemia though, more concerning for bacterial infection. -On levophed with MAP >65 now -pending Bcx, Ucx, procalcitonin. Though unsure the significance of procalcitonin as he has chronic elevation without infection present - CXR read with minimal b/l pleural effusions, b/l interstitial and alveolar opacities, superimposed infiltrate cannot be excluded. Compared to prior, does not appear to have significant change, poor inspiration on xray. Will repeat CXR in am - UA negative for infection Indeterminate troponin - trop 0.167, continue to trend. EKG sinus tachycardia with T wave inversions in II, III and aVF, have been present in past. Likely 2/2 demand HFrEF - Last echo 02/2020 showed EF 40-45%, 1/3 diastolic dysfunction - May have fluid overload component considering LE edema and possible signs of overload on CXR. However BNP was 86. Will monitor strict I/Os and have caution with IVF. Will not diurese tonight Altered Mental Status 2/2 above -GCS 11 on admission, continue to monitor Adrenal insufficiency -Stress dose hydrocortisone 100mg given, continue 50mg q6h for now -transition back to home dosing when appropriate Leukocytosis with bandemia -Continue to trend Metamyelocytes on differential - Pathologist smear review pending Anion gap metabolic acidosis - Albumin corrected gap of 18 on admission - Lactic acid 4 initially and downtrended. Hypoalbuminemia - likely 2/2 poor PO intake CARL - Cr 1.36 on admission. Baseline GFR >90. -Renal dose of abx, avoid nephrotoxic meds -Continue to monitor with AM labs Adult Stills Disease -Family to bring home Anakinra in AM. Not available in hospital. Diet: NPO 2/2 mental status IVF: LR @ 110 maintenance PPx: Pepcid IV, home xarelto Code: Full PCP: [facility] Attending: Aiden Lines: dobbins, central line Dispo: Admitted to CCU, expected stay >2 nights. Patient has frequent admissions, at previous admission full MMSE completed with score 20/30. Presentations often 2/2 medication noncompliance. Will need to continue to discuss plan of care, competency for medical decision making. Addendum - Attending - Attending Attestation Date/Time: 04/20/202151 I personally evaluated the patient and discussed the management with Dr. Comer I agree with the History, Examination, Assessment and Plan documented above with any addition or exceptions noted below- 59 year old male with a history of Still's disease, HTN, CHF (EF 40-45%), HLD, DMII and DVT presents to the ED via EMS with reports of AMS since this am. Per EMS report, the patient's family reported the patient had a fever for the past few days with acute mental status change today described as nonresponsive. The patient has a history of frequent hospitalizations (4 in the past 1 month) associated with noncompliance with medications that results in adrenal crisis. PMH/PSH/Meds/SH reviewed and agree with resident's documentation. T101.9 VSS Exam repeated by me and agree with resident's findings. Labs: WBC=27.3, H/H=11.4/33.7, Llaj=071, Diff=55N/37B, Na= 139, K=3.4, Gv=429, CO2=16, BUN/Cr=11/1.36, Zibh=585, lactic acid=4.0, BNP=86 CXR- small pleural effusion and interstitial/alveolar infiltrate, U/A=1+prot, 2+ gluc, 4-6WBC, no bact. A/P: 1) Acute metabolic encephalopathy secondary to adrenal crisis due to adult Still's disease - Admit to ICU; continue IVF and wean lefophed as tolerated. Started on hydrocortisone for adrenal crisis. 2) SIRS cristeria- no focus of infection. Blood and urine cultures collected. Most likely secondary to Still's disease exacerbation. 3) DM- monitor accuchecks and resume home meds.
[2020-04-20] MEDS ORDERED: Norepinephrine 8 MG/0.9% NS 250 ML IVPB SCH (19:22)
[2020-04-20] MEDS ORDERED: Ondansetron ODT 4 MG TAB PO PRN (19:31)
[2020-04-20] MEDS ORDERED: Ondansetron PF 4 MG/2 ML Vial IVP PRN (19:31)
[2020-04-20] MEDS ORDERED: Dextrose 50% Abboject 50 ML SYRINGE SLOW IVP PRN (19:31)
[2020-04-20] MEDS ORDERED: Acetaminophen 325 MG TAB PO PRN (19:31)
[2020-04-20] MEDS ORDERED: Dextrose 5% in Water 1,000 ML IV PRN (19:31)
[2020-04-20 19:46] VITALS: BMI 24.2
[2020-04-20] MEDS ORDERED: Hydrocortisone Sod Succ/PF 100 mg/2 ml Vial IVP SCH (20:00)
[2020-04-20] MEDS: Lactated Ringer's 1,000 ML IV SCH (20:11)
[2020-04-20] MEDS: Famotidine/PF 20 mg/2ml Vial SLOW IVP SCH (20:24)
[2020-04-20] MEDS: Norepinephrine 8 MG/0.9% NS 250 ML IVPB SCH (20:36)
[2020-04-20] MEDS ORDERED: Electrolyte Replacement Protoc 1 EACH EACH FS SCH (21:00)
[2020-04-20] MEDS ORDERED: Electrolyte Replacement Protocol FS PRN (21:15)
[2020-04-20] MEDS: HumaLOG 300 UNITS/3 ML VIAL SC PRN (21:41)
[2020-04-21] MEDS: HumaLOG 300 UNITS/3 ML VIAL SC PRN ×3 (00:01→21:06)
[2020-04-21] MEDS: Hydrocortisone Sod Succ/PF 100 mg/2 ml Vial IVP SCH ×4 (01:51→21:04)
[2020-04-21] MEDS: Cefepime 2 GM in Sodium Chloride 0.9% 100 ML IVPB SCH ×2 (01:52→16:46)
[2020-04-21] MEDS: Norepinephrine 8 MG/0.9% NS 250 ML IVPB SCH (01:53)
[2020-04-21 05:13] LABS: Band 38 % (5-11); Hemoglobin 12.1 g/dL (14.0-18.0); Lymphocytes 4 % (21-51); MDiff Complete? YES; Mean Corpuscular HGB CONC 32.3 g/dL (32.0-36.0); Mean Corpuscular Hemoglobin 28.5 pg (27.0-31.0); Mean Corpuscular Volume 88.4 fL (78.0-98.0); Mean Platelet Volume 9.2 fL (7.4-10.4); Monocytes 5 % (0-10); Neutrophil 53 % (42-75); Platelet Count 195 thou/uL (130-400); RBC Distribution Width 16.9 % (11.5-14.5); Red Blood Cell (RBC) Count 4.23 mill/uL (4.70-6.10); White Blood Cell (WBC) Count 26.6 thou/uL (4.8-10.8)
[2020-04-21] MEDS: Lactated Ringer's 1,000 ML IV SCH ×3 (06:10→23:58)
--- NOTE | 2020-04-21 06:15 | PDOC.FM ---
- Subjective Subjective: Patient was resting comfortably in bed at the time of evaluation. He was pleasant and easy to converse with, and denied any current complaints such as chest pain, SOB, cough, N/V or ABD pain. When questioned, the patient stated that there is a chance that he may not have been taking his medications as prescribed, possibly even missing several doses. - Objective Vital Signs & Weight: Vital Signs (12 hours) Temp Pulse Ox 04/21/20 04:00 98.3 F 04/21/20 00:41 100 04/21/20 00:00 97.7 F 04/20/20 20:00 100 04/20/20 19:15 98.3 F Weight Weight 70.2 kg Most Recent Monitor Data Heart Rate from ECG 88 NIBP 127/76 NIBP BP-Mean 93 Respiration from ECG 20 SpO2 100 I&O: 04/19/20 04/20/20 04/21/20 06:59 06:59 06:59 Intake Total 1973 Output Total 1900 Balance 73 Result Diagrams: 04/21/20 03:30 04/21/20 03:30 Phys Exam - Physical Examination Constitutional: NAD HEENT: moist MMs, sclera anicteric, oral pharynx no lesions Neck: no nodes, supple, full ROM Respiratory: no wheezing, no rales, no rhonchi, clear to auscultation bilateral Cardiovascular: RRR, no significant murmur, no rub Gastrointestinal: soft, non-tender, no distention, positive bowel sounds Musculoskeletal: pulses present Mild non-pitting edema in patient's feet - chronic Neurological: non-focal, moves all 4 limbs Lymphatic: no nodes Psychiatric: normal affect, A&O x 3 Skin: no rash Dx/Plan (1) Non compliance with medical treatment Code(s): Z91.19 - PATIENT'S NONCOMPLIANCE W OTH MEDICAL TREATMENT AND REGIMEN Status: Acute (2) Diabetes type 2, controlled Code(s): E11.9 - TYPE 2 DIABETES MELLITUS WITHOUT COMPLICATIONS Status: Chronic (3) Dyslipidemia Code(s): E78.5 - HYPERLIPIDEMIA, UNSPECIFIED Status: Chronic (4) Essential hypertension Code(s): I10 - ESSENTIAL (PRIMARY) HYPERTENSION Status: Chronic (5) H/O deep venous thrombosis Code(s): Z86.718 - PERSONAL HISTORY OF OTHER VENOUS THROMBOSIS AND EMBOLISM Status: Chronic (6) Still's disease Code(s): M08.20 - JUVENILE RHEUMATOID ARTHRITIS WITH SYSTEMIC ONSET, [facility] SITE Status: Chronic (7) HFrEF (heart failure with reduced ejection fraction) Code(s): I50.20 - UNSPECIFIED SYSTOLIC (CONGESTIVE) HEART FAILURE Status: Acute (8) NSTEMI (non-ST elevated myocardial infarction) Code(s): I21.4 - NON-ST ELEVATION (NSTEMI) MYOCARDIAL INFARCTION Status: Acute (9) SIRS (systemic inflammatory response syndrome) Code(s): R65.10 - SIRS OF NON-INFECTIOUS ORIGIN W/O ACUTE ORGAN DYSFUNCTION Status: Acute - Plan Plan: Patient is a 59 y/o male with a complex PMH most notable for Still's Disease, HFrEF, DM2 and a Hx of DVTs and multiple hospitalizations secondary to medication non-compliance who presents to the ED for evaluation of AMS. #SIRS, Unknown Source -Patient presented with hypotension, tachycardia, elevated WBCs, TMax of 101.6, and a Lactic acid 4.7 -s/p Azithromycin, Ceftriaxone, ASA, Tylenol and 2L of LR in ED - transitioned to Cefepime by Resident Night Team -Femoral Central Line placed with Levophed gtt due to severe-range hypotension -Will continue Cefepime pending UCx/BCx -UA: Protein, Ketones, Glucose (200), trace Blood, minimal WBCs -CXR: Minimal Pleural Effusions, Alveolar/Interstitial Opacities - similar to previous CXR, will repeat -Procal: 59 -Currently on Levophed gtt - will wean as appropriate and maintain MAP > 65 -Based on similar previous admissions, patient's recent decline in status could be 2/2 missed home medications. However, Leukocytosis with Bandemia is concerning for bacterial infection - will investigate appropriately #NSTEMI, Type II -Patient does not endorse active chest pain -Trop: 0.167 > 0.281 -EKG: Sinus Tachycardia with T wave inversions in II, III and aVF - similar to previous EKGs -Likely 2/2 demand ischemia #HFrEF -Echo (02/2020): EF 40-45%, 1/3 Diastolic Dysfunction -Physical Exam notable for LE and possible evidence of fluid overload on CXR -BNP: 86 -Strict I&Os, Daily Weights -Will hydrate cautiously #Still's Disease, Adrenal Insufficiency -s/p Stress Dose Hydrocortisone 100 mg - will continue 50 mg Q6H -Will attempt to contact patient's family to bring home medications as Anakinra is not carried by Pharmacy -Will transition back to patient's home medication regimen when appropriate #Anion Gap Metabolic Acidosis -Albumin-corrected Anion Gap of 18 on admission -Lactic Acid: 4 > 1.7 #DM2 -Patient is currently NPO - will advance diet as tolerate -Glargine 20u SC daily - will escalate as patient's diet progresses -Moderate SSI -Q4H Accuchecks -Hypoglycemia Protocol #CARL -Cr: 1.36 on admission. Baseline GFR >90. -Will avoid nephrotoxic medications -Will continue to monitor with AM labs PCP: [facility] Code Status: Full Diet: NPO 2/2 Mental Status IVF: LR @ 110 ml/hr VTE PPx: Xarelto Lines: Napier Catheter, Femoral Central Line Dispo: Patient is currently stable and admitted to the CCU for SIRS/AMS. Per discussion with Medicine Night Team, patient had an MMSE completed during previous admission and was found to be 20/30. In the setting of poor baseline mental status and frequent hospitalizations 2/2 medication non-compliance, patient will likely require DC planning and placement. Will plan to advance diet and manage chronic medical conditions as per above. Will contact patient's family to bring home medications and confirm regimens. Expected LOS > 48H. Addendum - Attending - Attending Attestation Date/Time: 04/21/20 0268 I personally evaluated the patient and discussed the management with Dr. Yu. I agree with the History, Examination, Assessment and Plan documented above with any addition or exceptions noted below. Patient improved. Wean pressors as his steroids kick in. This is yet another readmission related to the patient's gross negligence of his own medical care.
[2020-04-21 06:56] LABS: ALT (SGPT) 67 U/L (8-55); AST (SGOT) 143 U/L (5-34); Albumin 2.7 g/dL (3.5-5.0); Alkaline Phosphatase 96 U/L (40-110); Anion Gap 16 mmol/L (10-20); BUN (Urea Nitrogen) 18 mg/dL (8.4-25.7); Bilirubin, Total 0.5 mg/dL (0.2-1.2); Calc. Creatinine Clearance 59 mL/min (70-130); Calcium 7.8 mg/dL (7.8-10.44); Carbon Dioxide 19 mmol/L (22-29); Chloride 109 mmol/L (98-107); Estimated GFR-MDRD 67; Globulin 2.7 g/dL (2.4-3.5); Glucose 278 mg/dL (70-105); Potassium 3.4 mmol/L (3.5-5.1); Protein, Total 5.4 g/dL (6.0-8.3); Sodium 141 mmol/L (136-145)
[2020-04-21] MEDS: Potassium Chloride 20 MEQ in Premix Bag 1 BAG IVPB SCH ×2 (08:33→11:58)
[2020-04-21] MEDS: Rivaroxaban 10 MG TAB PO SCH (08:33)
[2020-04-21] MEDS: Famotidine/PF 20 mg/2ml Vial SLOW IVP SCH ×2 (08:33→21:05)
[2020-04-21] MEDS: Insulin Glargine 20 UNITS in Pre-Filled Syringe 1 EACH SC SCH (08:49)
--- NOTE | 2020-04-21 09:33 | RAD ---
CHEST 1 VIEW PORTABLE: HISTORY: Followup fever. COMPARISON: 04/20/2020. FINDINGS: Mild increased markings noted bilaterally with slight improvement from the prior exam of 04/20. No ne w confluent process. IMPRESSION: Mild vascular congestion but slight improvement from 04/20/2020. No significant new process. POS: RRE
--- NOTE | 2020-04-22 01:56 | CON ---
DATE OF CONSULTATION: HISTORY OF PRESENT ILLNESS: Mr. Knight is a 59-year-old male with Still disease. He has had multiple similar admissions with altered mental status and hypotension. There had been questions in the past as to whether or not he was entirely compliant with his medication. He is followed by Dr. Barney. He presented with a similar admission. He subsequently has clinically improved. PAST MEDICAL HISTORY: Remarkable for, 1. Hypertension. 2. History of cardiomyopathy. 3. Diabetes. FAMILY HISTORY: Negative for lung disease in early age. REVIEW OF SYSTEMS: Otherwise negative. PHYSICAL EXAMINATION: VITAL SIGNS: Heart rates in the 90s, blood pressure 96/56, and respiratory rates in the teens to low 20s. HEAD AND NECK: Unremarkable. LUNGS: Clear. HEART: Regular rhythm. ABDOMEN: Soft. EXTREMITIES: Without clubbing, cyanosis, or edema. NEURO: Grossly nonfocal. He is mainly weak. LABORATORY DATA: White count is 26, hemoglobin 12.1, and platelets 195. Sodium 141, potassium 3.4, chloride 109, bicarb 19, BUN 18, creatinine 1.3, and glucose . IMPRESSION: 1. Flare-up of Still disease. 2. ? medical marginal compliance. 3. Diabetes. 4. Hypertension. 5. Chest radiograph this admission is suggestive of mild edema but improved compared to his last x-ray. 6. History of cardiomyopathy. He appears to be stable, probably could move out of Critical Care Unit in the morning. His family is bringing up his medication for his Still disease since it is not on formulary here. Job ID: [id number]
[2020-04-22] MEDS: Cefepime 2 GM in Sodium Chloride 0.9% 100 ML IVPB SCH ×2 (02:24→14:10)
[2020-04-22 05:38] LABS: ALT (SGPT) 618 U/L (8-55); AST (SGOT) 796 U/L (5-34); Albumin 2.3 g/dL (3.5-5.0); Alkaline Phosphatase 105 U/L (40-110); Anion Gap 12 mmol/L (10-20); BUN (Urea Nitrogen) 18 mg/dL (8.4-25.7); Bilirubin, Total 0.7 mg/dL (0.2-1.2); Calc. Creatinine Clearance 103 mL/min (70-130); Calcium 7.7 mg/dL (7.8-10.44); Carbon Dioxide 22 mmol/L (22-29); Chloride 110 mmol/L (98-107); Estimated GFR-MDRD Greater than 90; Globulin 2.5 g/dL (2.4-3.5); Glucose 139 mg/dL (70-105); Potassium 3.3 mmol/L (3.5-5.1); Protein, Total 4.8 g/dL (6.0-8.3); Sodium 141 mmol/L (136-145)
[2020-04-22 05:53] LABS: Hemoglobin 9.3 g/dL (14.0-18.0); Mean Corpuscular HGB CONC 31.9 g/dL (32.0-36.0); Mean Corpuscular Hemoglobin 27.9 pg (27.0-31.0); Mean Corpuscular Volume 87.4 fL (78.0-98.0); Mean Platelet Volume 9.2 fL (7.4-10.4); Platelet Count 145 thou/uL (130-400); RBC Distribution Width 16.7 % (11.5-14.5); Red Blood Cell (RBC) Count 3.33 mill/uL (4.70-6.10); White Blood Cell (WBC) Count 15.5 thou/uL (4.8-10.8)
--- NOTE | 2020-04-22 05:53 | PDOC.FM ---
- Subjective Subjective: Patient was resting comfortably in bed at the time of evaluation. Patient denied any acute overnight events, particularly with regard to chest pain, SOB, ABD pain or repeat episodes of diarrhea. Of note, the patient was markedly confrontational with hospital staff in comparison to previous evaluations. Patient stated repeatedly that he wanted "to go home to check on my people." When the patient was informed that his condition had greatly improved and that he would likely be transferred to the Medical Floor later in the morning, he stated angrily that he would "go home to check on my people first then maybe I' ll come back." Per Nursing, there were no episodes of acute agitation or combativeness overnight, merely marked confrontational attitude. - Objective Vital Signs & Weight: Vital Signs (12 hours) Temp Pulse Ox 04/22/20 04:00 97.9 F 04/22/20 00:00 98.2 F 04/21/20 20:00 98.6 F 100 Weight Weight 73.4 kg Most Recent Monitor Data Heart Rate from ECG 93 NIBP 99/57 NIBP BP-Mean 71 Respiration from ECG 18 SpO2 100 I&O: 04/20/20 04/21/20 04/22/20 06:59 06:59 06:59 Intake Total 1973 118 Output Total 1900 1395 Balance 73 -1277 Result Diagrams: 04/22/20 04:40 04/22/20 04:40 Phys Exam - Physical Examination Constitutional: NAD HEENT: PERRLA, moist MMs, sclera anicteric, oral pharynx no lesions Neck: supple, full ROM Respiratory: no wheezing, no rales, no rhonchi, clear to auscultation bilateral Cardiovascular: RRR, no significant murmur, no rub Gastrointestinal: soft, non-tender, no distention, positive bowel sounds Musculoskeletal: no edema, pulses present Neurological: non-focal, moves all 4 limbs Deviation from normal: Confrontational demeanor. A&Ox2 - Patient refused to state the year. Skin: no rash Dx/Plan (1) Non compliance with medical treatment Code(s): Z91.19 - PATIENT'S NONCOMPLIANCE W OTH MEDICAL TREATMENT AND REGIMEN Status: Acute (2) Diabetes type 2, controlled Code(s): E11.9 - TYPE 2 DIABETES MELLITUS WITHOUT COMPLICATIONS Status: Chronic (3) Dyslipidemia Code(s): E78.5 - HYPERLIPIDEMIA, UNSPECIFIED Status: Chronic (4) Essential hypertension Code(s): I10 - ESSENTIAL (PRIMARY) HYPERTENSION Status: Chronic (5) H/O deep venous thrombosis Code(s): Z86.718 - PERSONAL HISTORY OF OTHER VENOUS THROMBOSIS AND EMBOLISM Status: Chronic (6) Still's disease Code(s): M08.20 - JUVENILE RHEUMATOID ARTHRITIS WITH SYSTEMIC ONSET, UNSP SITE Status: Chronic (7) HFrEF (heart failure with reduced ejection fraction) Code(s): I50.20 - UNSPECIFIED SYSTOLIC (CONGESTIVE) HEART FAILURE Status: Acute (8) NSTEMI (non-ST elevated myocardial infarction) Code(s): I21.4 - NON-ST ELEVATION (NSTEMI) MYOCARDIAL INFARCTION Status: Acute (9) SIRS (systemic inflammatory response syndrome) Code(s): R65.10 - SIRS OF NON-INFECTIOUS ORIGIN W/O ACUTE ORGAN DYSFUNCTION Status: Acute - Plan Plan: Patient is a 59 y/o male with a complex PMH most notable for Still's Disease, HFrEF, DM2 and a Hx of DVTs and multiple hospitalizations secondary to medication non-compliance who presents to the ED for evaluation of AMS. #SIRS, Unknown Source -Patient presented with hypotension, tachycardia, elevated WBCs, TMax of 101.6, and a Lactic acid 4.7 -s/p Azithromycin, Ceftriaxone, ASA, Tylenol and 2L of LR in ED - transitioned to Cefepime by Resident Night Team -Femoral Central Line placed with Levophed gtt due to severe-range hypotension - since resolved -Will continue Cefepime pending UCx/BCx -UA: Protein, Ketones, Glucose (200), trace Blood, minimal WBCs -CXR: Minimal Pleural Effusions, Alveolar/Interstitial Opacities - similar to previous CXR, will repeat -Procal: 59 -Based on similar previous admissions, patient's recent decline in status could be 2/2 missed home medications. However, Leukocytosis with Bandemia is concerning for bacterial infection - will investigate appropriately #NSTEMI, Type II -Patient does not endorse active chest pain -Trop: 0.167 > 0.281 -EKG: Sinus Tachycardia with T wave inversions in II, III and aVF - similar to previous EKGs -Likely 2/2 demand ischemia #HFrEF -Echo (02/2020): EF 40-45%, 1/3 Diastolic Dysfunction -Physical Exam notable for LE and possible evidence of fluid overload on CXR -BNP: 86 -Strict I&Os, Daily Weights -Will hydrate cautiously #Still's Disease, Adrenal Insufficiency -s/p Stress Dose Hydrocortisone 100 mg followed by Hydrocortisone 50 mg Q6H - will transition to home Prednisone 60 mg PO daily this AM -Patient's family brought home Anakinra - will continue with Pharmacy managing #Anion Gap Metabolic Acidosis -Albumin-corrected Anion Gap of 18 on admission -Lactic Acid: 4 > 1.7 #DM2 -Patient is currently on Clear Liquid Diet - will likely advance diet as tolerated to CC this AM -Glargine 20u SC daily - will escalate as patient's diet progresses -Moderate SSI -Q4H Accuchecks -Hypoglycemia Protocol #CARL -Cr: 1.36 on admission - 0.8 on 04/22 -Will avoid nephrotoxic medications -Will continue to monitor with AM labs PCP: [facility] Code Status: Full Diet: Carbohydrate Conscious IVF: LR @ 110 ml/hr VTE PPx: Xarelto Lines: Napier Catheter, Femoral Central Line Dispo: Patient is currently stable and admitted to the CCU for SIRS/AMS. Patient 's overall clinical picture has improved greatly following BP stabilization and high-dose steroid administration. Will cautiously restart patient's home medication regimen, most notably Anakinra for Still's Disease. Will continue to coordinate with Case Management and Hospital Ethics committee on patient's inability to manage multiple medical problems with insufficient assistance from family members, and resultant repeat admissions. Will plan to advance diet and manage other chronic medical conditions as per above. Expected LOS > 48H. Addendum - Attending - Attending Attestation Date/Time: 04/22/20 1101 I personally evaluated the patient and discussed the management with Dr. Yu. I agree with the History, Examination, Assessment and Plan documented above with any addition or exceptions noted below. Patient improved back on home meds. Continue those for now. Awaiting ethics committee involvement in patient being a harm to himself and unable to care for himself in setting of documented cognitive impairment. He has been very resistant to placement and does not understand how not taking his medications result in frequent hospitalizations with threats to his life.
[2020-04-22] MEDS ORDERED: Potassium Chloride 40 MEQ in Premix Bag 1 BAG IVPB SCH (06:00)
[2020-04-22 06:58] LABS: Band 29 % (5-11); Lymphocytes 3 % (21-51); MDiff Complete? YES; Monocytes 3 % (0-10); Neutrophil 65 % (42-75)
[2020-04-22] MEDS ORDERED: predniSONE 50 MG TAB PO SCH (08:00)
[2020-04-22] MEDS ORDERED: Fludrocortisone Acetate 0.1 MG TAB PO SCH (09:00)
[2020-04-22] MEDS: Rivaroxaban 10 MG TAB PO SCH (09:20)
[2020-04-22] MEDS: predniSONE 20 MG TAB PO SCH (09:20)
[2020-04-22] MEDS: ANAKINRA 100 MG SCH (09:20)
[2020-04-22] MEDS: Lactated Ringer's 1,000 ML IV SCH ×2 (09:20→14:12)
[2020-04-22] MEDS: Folic Acid 1 MG TAB PO SCH (13:58)
[2020-04-22] MEDS: Insulin Glargine 20 UNITS in Pre-Filled Syringe 1 EACH SC SCH (13:58)
[2020-04-22] MEDS: Ascorbic Acid 500 mg Chewable Tablet PO SCH (13:58)
[2020-04-22] MEDS: Alogliptin 25 MG TAB PO SCH (13:58)
[2020-04-22] MEDS: Ferrous Sulfate 325 MG TAB PO SCH (13:58)
[2020-04-22] MEDS: Famotidine 20 MG TAB PO SCH ×2 (13:58→21:56)
--- NOTE | 2020-04-22 14:16 | ULT ---
HEPATIC ULTRASOUND WITH HEPATIC DOPPLER: 04/22/20 Liver evaluated with ultrasound and Doppler with color Doppler and spectral analysis. INDICATIONS: Abnormal liver function tests. The patient is status post cholecystectomy. The common bile duct is normal caliber measured at 3 mm. The visualized liver appears normal. Color Doppler and spectral analysis demonstrates normal blood flow in the hepatic vessels. Hepatic ve ins, portal veins, and splenic veins were evaluated. The pancreas is partially imaged and appears unremarkable as visualized. The spleen is imaged and appears normal in size and appearance. Right kidney is imaged. There is a cyst in the superior right kidney measuring up to 4.5 cm. IMPRESSION: 1. Hepatic vessels show normal hepatopetal blood flow. 2. Right renal cyst. 3. Status post cholecystectomy. POS: AGW
--- NOTE | 2020-04-22 16:24 | PRG ---
DATE OF SERVICE: 04/22/2020 SUBJECTIVE: Mr. Knight did well overnight. He is in still encephalopathic. OBJECTIVE: VITAL SIGNS: He is afebrile. Heart rate is in 80s, respiratory rates in the teens, oximetry is in the high 90s, and blood pressure 118/74. LUNGS: Clear HEART: Regular rhythm. ABDOMEN: Soft. LABORATORY DATA: White count 15.5, hemoglobin 9.3, and platelets 145. Sodium 141, potassium 3.3, chloride 110, bicarb 22, BUN 18, and creatinine 0.8. IMPRESSION: Still disease with multiple medical and ICU admissions. He is clinically stable to move out of Critical Care Unit. We will sign off on transfer. Job ID: [id number]
[2020-04-22 16:49] LABS: ALT (SGPT) 646 U/L (8-55); AST (SGOT) 522 U/L (5-34); Albumin 2.9 g/dL (3.5-5.0); Alkaline Phosphatase 134 U/L (40-110); Anion Gap 15 mmol/L (10-20); BUN (Urea Nitrogen) 21 mg/dL (8.4-25.7); Bilirubin, Total 0.9 mg/dL (0.2-1.2); Calc. Creatinine Clearance 82 mL/min (70-130); Calcium 8.2 mg/dL (7.8-10.44); Carbon Dioxide 20 mmol/L (22-29); Chloride 107 mmol/L (98-107); Estimated GFR-MDRD Greater than 90; Glucose 329 mg/dL (70-105); Protein, Total 5.9 g/dL (6.0-8.3); Sodium 138 mmol/L (136-145)
[2020-04-22] MEDS: HumaLOG 300 UNITS/3 ML VIAL SC PRN (17:05)
[2020-04-23] MEDS: Lactated Ringer's 1,000 ML IV SCH (03:52)
--- NOTE | 2020-04-23 06:17 | PDOC.FM ---
- Subjective Subjective: Patient has no acute concerns this morning. Feeling well, alert and oriented. Patient pulled out his femoral central line last night, nursing not able to replace with PIV. Encouraged patient to increase PO intake to avoid dehydration. - Objective MAR Reviewed: Yes Vital Signs & Weight: Vital Signs (12 hours) Temp Pulse Resp BP Pulse Ox 04/22/20 20:24 98.0 F 93 18 110/74 97 04/22/20 20:00 97 Weight Weight 73 kg Most Recent Monitor Data Heart Rate from ECG 87 NIBP 105/63 NIBP BP-Mean 77 Respiration from ECG 21 SpO2 99 I&O: 04/21/20 04/22/20 04/23/20 06:59 06:59 06:59 Intake Total 1973 2697 720 Output Total 1900 1440 1200 Balance 73 1257 -480 Result Diagrams: 04/23/20 05:44 04/23/20 05:44 Phys Exam - Physical Examination Constitutional: NAD HEENT: moist MMs, sclera anicteric Respiratory: no wheezing, no rales, no rhonchi, clear to auscultation bilateral Cardiovascular: RRR, no significant murmur, no rub Gastrointestinal: soft, non-tender, no distention, positive bowel sounds Musculoskeletal: no edema, pulses present Neurological: non-focal, moves all 4 limbs Psychiatric: normal affect, A&O x 3 Dx/Plan - Plan Plan: Patient is a 59 y/o male with a complex PMH most notable for Still's Disease, HFrEF, DM2 and a Hx of DVTs and multiple hospitalizations secondary to medication non-compliance who presented to the ED for evaluation of AMS. #SIRS, Unknown Source -Patient presented with hypotension, tachycardia, elevated WBCs, TMax of 101.6, and a Lactic acid 4.7. Patient received Abx and Levophed gtt. -s/p Azithromycin, Ceftriaxone, ASA, Tylenol and 2L of LR in ED - transitioned to Cefepime (Dc'd with negative cultures) -Femoral Central Line placed with Levophed gtt due to severe-range hypotension - since resolved -UA: Protein, Ketones, Glucose (200), trace Blood, minimal WBCs -CXR: Minimal Pleural Effusions, Alveolar/Interstitial Opacities - similar to previous CXR -Procal: 59 -Based on similar previous admissions, patient's recent decline in status could be 2/2 missed home medications. However, Leukocytosis with Bandemia is concerning for bacterial infection - will continue to monitor #Transaminitis - Elevation of LFT on repeat CMP on 04/22 unlike prior admissions - Concern for shock liver given hypotension with vasopressors - Possible acute hepatitis although unlikely given recent hospitalization - Continue to monitor - Consider GI consult pending AM labs #NSTEMI, Type II -Patient does not endorse active chest pain -Trop: 0.167 > 0.281 -EKG: Sinus Tachycardia with T wave inversions in II, III and aVF - similar to previous EKGs -Likely 2/2 demand ischemia #HFrEF -Echo (02/2020): EF 40-45%, 1/3 Diastolic Dysfunction -Physical Exam notable for LE and possible evidence of fluid overload on CXR -BNP: 86 -Strict I&Os, Daily Weights -Will hydrate cautiously #Still's Disease, Adrenal Insufficiency -s/p Stress Dose Hydrocortisone 100 mg followed by Hydrocortisone 50 mg Q6H - Currently on home dose prednisone -Patient's family brought home Anakinra - will continue with Pharmacy managing #Anion Gap Metabolic Acidosis -Albumin-corrected Anion Gap of 18 on admission -Lactic Acid: 4 > 1.7 #DM2 -Glargine 20u SC daily - will escalate as patient's diet progresses -Moderate SSI -Q4H Accuchecks -Hypoglycemia Protocol #CARL -Cr: 1.36 on admission - 0.8 on 04/22 -Will avoid nephrotoxic medications -Will continue to monitor with AM labs PCP: [facility] Code Status: Full Diet: CC IVF: LR @ 110 ml/hr-consider discontinuation VTE PPx: Xarelto Lines: Napier Catheter, Femoral Central Line Dispo: Patient is currently stable and admitted to floor for SIRS/AMS. Patient' s overall clinical picture has improved greatly following BP stabilization and high-dose steroid administration. He is now on home medication regimen, most notably Anakinra for Still's Disease. Will continue to coordinate with Case Management and Hospital Ethics committee on patient's inability to manage multiple medical problems with insufficient assistance from family members, and resultant repeat admissions. Will plan to advance diet and manage other chronic medical conditions as per above. Expected LOS > 48H. Addendum - Attending - Attending Attestation Date/Time: 04/23/20 1056 I personally evaluated the patient and discussed the management with Dr. Watson. I agree with the History, Examination, Assessment and Plan documented above with any addition or exceptions noted below. Patient feeling well. He is overall medically stable, but anticipate frequent bouncebacks due to his noncompliance. Awaiting report from ethics committee, but he is otherwise medically stable for discharge.
[2020-04-23 06:18] LABS: #Lymphocytes 1.2 thou/uL (1.20-3.40); #Monocytes 0.4 thou/uL (0.11-0.59); #Neutrophils 6.1 thou/uL (1.40-6.50); %Lymphocytes 15.2 % (21.0-51.0); %Monocytes 5.6 % (0.0-10.0); %Neutrophils 79.2 % (42.0-75.0); Hemoglobin 8.9 g/dL (14.0-18.0); Mean Corpuscular HGB CONC 32.5 g/dL (32.0-36.0); Mean Corpuscular Hemoglobin 28.6 pg (27.0-31.0); Mean Corpuscular Volume 87.9 fL (78.0-98.0); Mean Platelet Volume 9.2 fL (7.4-10.4); Platelet Count 129 thou/uL (130-400); RBC Distribution Width 16.7 % (11.5-14.5); White Blood Cell (WBC) Count 7.7 thou/uL (4.8-10.8)
[2020-04-23] MEDS: HumaLOG 300 UNITS/3 ML VIAL SC PRN ×2 (06:21→17:03)
[2020-04-23 06:44] LABS: ALT (SGPT) 373 U/L (8-55); AST (SGOT) 186 U/L (5-34); Albumin 2.2 g/dL (3.5-5.0); Alkaline Phosphatase 94 U/L (40-110); Anion Gap 11 mmol/L (10-20); BUN (Urea Nitrogen) 22 mg/dL (8.4-25.7); Bilirubin, Total 0.5 mg/dL (0.2-1.2); Calc. Creatinine Clearance 100 mL/min (70-130); Calcium 7.6 mg/dL (7.8-10.44); Carbon Dioxide 22 mmol/L (22-29); Chloride 109 mmol/L (98-107); Estimated GFR-MDRD Greater than 90; Globulin 2.3 g/dL (2.4-3.5); Glucose 243 mg/dL (70-105); Potassium 3.3 mmol/L (3.5-5.1); Protein, Total 4.5 g/dL (6.0-8.3); Sodium 139 mmol/L (136-145)
[2020-04-23] MEDS: Ferrous Sulfate 325 MG TAB PO SCH (08:32)
[2020-04-23] MEDS: Alogliptin 25 MG TAB PO SCH (08:33)
[2020-04-23] MEDS: Famotidine 20 MG TAB PO SCH ×2 (08:33→20:21)
[2020-04-23] MEDS: Ascorbic Acid 500 mg Chewable Tablet PO SCH (08:33)
[2020-04-23] MEDS: Folic Acid 1 MG TAB PO SCH (08:33)
[2020-04-23] MEDS: Rivaroxaban 10 MG TAB PO SCH (08:33)
[2020-04-23] MEDS: predniSONE 20 MG TAB PO SCH (08:33)
[2020-04-23] MEDS: Insulin Glargine 20 UNITS in Pre-Filled Syringe 1 EACH SC SCH (08:34)
[2020-04-23] MEDS ORDERED: Potassium Chloride 20 MEQ TAB PO SCH (09:00)
[2020-04-23] MEDS ORDERED: Insulin Glargine 5 UNITS in Pre-Filled Syringe 1 EACH SC SCH ×2 (09:00→10:15)
[2020-04-23] MEDS ORDERED: IRON CARBONYL PO SCH (09:00)
[2020-04-23] MEDS ORDERED: ASCORBIC ACID PO SCH (09:00)
[2020-04-23] MEDS ORDERED: HumaLOG 300 UNITS/3 ML VIAL SC PRN (10:06)
[2020-04-23] MEDS ORDERED: Insulin Glargine 25 UNITS in Pre-Filled Syringe 1 EACH SC SCH (10:10)
[2020-04-23] MEDS: ANAKINRA 100 MG SCH (11:21)
--- NOTE | 2020-04-23 16:43 | PDOC.PALPN ---
Palliative Progress Note - Subjective Dr Yu - Objective Vital Signs: Vital Signs - Most Recent Temp Pulse Resp BP Pulse Ox 97.1 F L 93 16 104/64 96 04/23/20 15:32 04/23/20 15:32 04/23/20 15:32 04/23/20 15:32 04/23/20 15:32 - Physical Exam Constitutional: NAD HEENT: EOMI, moist MMs Respiratory: no rhonchi, no wheezing, unlabored breathing Cardiovascular: RRR Gastrointestinal: continent, soft Genitourinary: continent Musculoskeletal: edema present, muscle wasting Neurology: moves all 4 limbs, no focal deficits Skin: cap refill <2 seconds, no lesions, no rash Psychiatric: A&O x 3, flat affect - Assessment (1) Hypoglycemia Code(s): E16.2 - HYPOGLYCEMIA, UNSPECIFIED Current Visit: No Status: Acute (2) Non compliance with medical treatment Code(s): Z91.19 - PATIENT'S NONCOMPLIANCE W OTH MEDICAL TREATMENT AND REGIMEN Current Visit: No Status: Acute (3) Palliative care encounter Code(s): Z51.5 - ENCOUNTER FOR PALLIATIVE CARE Current Visit: No Status: Acute (4) 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 DISEASE Current Visit: No Status: Chronic (5) Diabetes type 2, controlled Code(s): E11.9 - TYPE 2 DIABETES MELLITUS WITHOUT COMPLICATIONS Current Visit : No Status: Chronic - Plan Plan: Visited with patient at length. In attempting to have patient demonstrate knowledge of disease of Stills and impact of non compliance he is able to relay the need "to keep taking my medication" but lacks ability to perform a "teach back" and relay significant understanding of severity of disease and impact to health status. In discussing goal of care, Mr Knight did confirm that he did not want to stop seeing his physician that sony Caro or stop his Kineret. He further confirmed that if he had an altered mental status/ non responsive that his mother (who he resides with) would call 911. Mr Knight is able to express his desires, but appears unable to fully grasp Stills disease and importance of medication compliance. He confirmed that he may "miss a dose" sometimes. In an attempt to create a safe discharge plan a family meeting will be held 2019 with patient sister, mother, and daughter Shady who is his MPOA. Family unable to come in person, but will video call in to patient room. Communicated with Dr Hall and Dr Yu [60] minutes spent on this encounter with >50% of the time in counseling and coordination of care. - ROS Constitutional: weakness ENT: other (Negative for throat irritation, difficulity swallowing) Respiratory: other (Negative for cough, congestion) Cardiology: other (Negative for chest pain, palpitations) Gastrointestinal: other (Negative for nausea, vomiting, constipation) Musculoskeletal: arthritis/arthralgias, hand pain Neurological: headache
[2020-04-24] MEDS: HumaLOG 300 UNITS/3 ML VIAL SC PRN ×2 (05:55→11:43)
--- NOTE | 2020-04-24 06:16 | PDOC.FM ---
- Subjective Subjective: Patient reports no acute concerns this morning. Says he is feeling well. Says he would rather not go to therapy but would go if he has to. Reiterated the importance of therapy and staying on home medications. - Objective MAR Reviewed: Yes Vital Signs & Weight: Vital Signs (12 hours) Temp Pulse Resp BP Pulse Ox 04/23/20 20:21 97.1 F L 93 18 111/73 96 04/23/20 20:00 96 Weight Weight 71.35 kg Most Recent Monitor Data Heart Rate from ECG 87 NIBP 105/63 NIBP BP-Mean 77 Respiration from ECG 21 SpO2 99 I&O: 04/22/20 04/23/20 04/24/20 06:59 06:59 06:59 Intake Total 2697 720 1600 Output Total 1440 1650 6577 Balance 1257 -930 2300 Result Diagrams: 04/24/20 05:25 04/24/20 05:25 Phys Exam - Physical Examination Constitutional: NAD HEENT: moist MMs, sclera anicteric Neck: supple, full ROM Respiratory: no wheezing, no rales, no rhonchi, clear to auscultation bilateral Cardiovascular: RRR, no significant murmur, no rub Gastrointestinal: soft, non-tender, no distention, positive bowel sounds Musculoskeletal: no edema, pulses present Neurological: non-focal, moves all 4 limbs Dx/Plan - Plan Plan: #SIRS, Unknown Source -Patient presented with hypotension, tachycardia, elevated WBCs, TMax of 101.6, and a Lactic acid 4.7. Patient received Abx and Levophed gtt. -s/p Azithromycin, Ceftriaxone, ASA, Tylenol and 2L of LR in ED - transitioned to Cefepime (Dc'd with negative cultures) -Femoral Central Line placed with Levophed gtt due to severe-range hypotension - since resolved -UA: Protein, Ketones, Glucose (200), trace Blood, minimal WBCs -CXR: Minimal Pleural Effusions, Alveolar/Interstitial Opacities - similar to previous CXR -Procal: 59 -Based on similar previous admissions, patient's recent decline in status could be 2/2 missed home medications. However, Leukocytosis with Bandemia is concerning for bacterial infection - will continue to monitor #Transaminitis - Elevation of LFT on repeat CMP on 04/22 unlike prior admissions, improving on 04/23 - Continue to monitor #NSTEMI, Type II -Patient does not endorse active chest pain -Trop: 0.167 > 0.281 -EKG: Sinus Tachycardia with T wave inversions in II, III and aVF - similar to previous EKGs -Likely 2/2 demand ischemia #HFrEF -Echo (02/2020): EF 40-45%, 1/3 Diastolic Dysfunction -BNP: 86 -Strict I&Os, Daily Weights -Will hydrate cautiously #Still's Disease, Adrenal Insufficiency -s/p Stress Dose Hydrocortisone 100 mg followed by Hydrocortisone 50 mg Q6H - Currently on home dose prednisone -Patient's family brought home Anakinra - will continue with Pharmacy managing #Anion Gap Metabolic Acidosis -Albumin-corrected Anion Gap of 18 on admission -Lactic Acid: 4 > 1.7 #DM2 -Glargine 30u SC daily - will escalate as patient's diet progresses -Moderate SSI -Q4H Accuchecks -Hypoglycemia Protocol #CARL -Cr: 1.36 on admission - 0.8 on 04/22 -Will avoid nephrotoxic medications -Will continue to monitor with AM labs PCP: [facility] Code Status: Full Diet: CC IVF: none VTE PPx: Xarelto Lines: Napier Catheter, Femoral Central Line Dispo: Patient is currently stable and admitted to floor for SIRS/AMS. Estimated LOS < 48H. Will have discussion with family this afternoon with Dr. Yu and Dr. Pa. Patient accepted to rehab. Addendum - Attending - Attending Attestation Date/Time: 04/24/20 1046 I personally evaluated the patient and discussed the management with Dr. Watson. I agree with the History, Examination, Assessment and Plan documented above with any addition or exceptions noted below. Patient stable for discharge. Family meeting today, then anticipate transfer to rehab.
[2020-04-24 06:27] LABS: ALT (SGPT) 263 U/L (8-55); AST (SGOT) 63 U/L (5-34); Albumin 2.3 g/dL (3.5-5.0); Alkaline Phosphatase 98 U/L (40-110); Anion Gap 10 mmol/L (10-20); BUN (Urea Nitrogen) 15 mg/dL (8.4-25.7); Bilirubin, Total 0.4 mg/dL (0.2-1.2); Calc. Creatinine Clearance 99 mL/min (70-130); Calcium 7.6 mg/dL (7.8-10.44); Carbon Dioxide 23 mmol/L (22-29); Chloride 109 mmol/L (98-107); Estimated GFR-MDRD Greater than 90; Globulin 2.3 g/dL (2.4-3.5); Glucose 222 mg/dL (70-105); Potassium 3.3 mmol/L (3.5-5.1); Protein, Total 4.6 g/dL (6.0-8.3); Sodium 139 mmol/L (136-145)
[2020-04-24 06:31] LABS: Hemoglobin 9.3 g/dL (14.0-18.0); Mean Corpuscular HGB CONC 32.1 g/dL (32.0-36.0); Mean Corpuscular Hemoglobin 28.9 pg (27.0-31.0); Mean Corpuscular Volume 89.9 fL (78.0-98.0); Mean Platelet Volume 8.8 fL (7.4-10.4); Platelet Count 144 thou/uL (130-400); RBC Distribution Width 16.7 % (11.5-14.5); Red Blood Cell (RBC) Count 3.23 mill/uL (4.70-6.10); White Blood Cell (WBC) Count 5.5 thou/uL (4.8-10.8)
[2020-04-24 06:41] LABS: Band 9 % (5-11); Lymphocytes 22 % (21-51); MDiff Complete? YES; Monocytes 2 % (0-10); Neutrophil 67 % (42-75)
[2020-04-24] MEDS ORDERED: Insulin Glargine 30 UNITS in Pre-Filled Syringe 1 EACH SC SCH (09:00)
[2020-04-24] MEDS ORDERED: Insulin Glargine 25 UNITS in Pre-Filled Syringe 1 EACH SC SCH (09:00)
[2020-04-24] MEDS: Famotidine 20 MG TAB PO SCH (10:09)
[2020-04-24] MEDS: Ferrous Sulfate 325 MG TAB PO SCH (10:09)
[2020-04-24] MEDS: Alogliptin 25 MG TAB PO SCH (10:09)
[2020-04-24] MEDS: predniSONE 20 MG TAB PO SCH (10:09)
[2020-04-24] MEDS: Ascorbic Acid 500 mg Chewable Tablet PO SCH (10:09)
[2020-04-24] MEDS: Rivaroxaban 10 MG TAB PO SCH (10:10)
[2020-04-24] MEDS: Folic Acid 1 MG TAB PO SCH (10:10)
[2020-04-24] MEDS: ANAKINRA 100 MG SCH (10:13)
[2020-04-24 15:52] VITALS: BP 114/66; TEMP 97.8
--- NOTE | 2020-04-25 12:53 | DIS ---
DATE OF ADMISSION: 04/20/2020 DATE OF DISCHARGE: 04/24/2020 RESIDENT: Krishna Watson MD ADMITTING ATTENDING: Dr. Wolfe. DISCHARGE ATTENDING: Dr. Paul Hall. CONSULTS: 1. Dr. Munoz, Pulmonology. 2. Palliative Care, Roro Robertson. PROCEDURES: The patient had a chest x-ray on admission showing minimal bilateral pleural effusions and bilateral interstitial and alveolar opacities. He also received an abdominal ultrasound showing normal hepatic vessel blood flow, a right renal cyst. PRIMARY DIAGNOSIS: Acute metabolic encephalopathy likely due to adrenal crisis in the setting of Still disease. SECONDARY DIAGNOSES: Positive systemic inflammatory response syndrome criteria, lactic acidosis, hypocalcemia, hypokalemia, indeterminate troponins, acute kidney injury, type 2 diabetes, adult Still disease, combined congestive heart failure, BPH, and history of deep venous thrombosis. DISCHARGE MEDICATIONS: 1. Alogliptin 25 mg p.o. daily. 2. Anakinra 100 mg subcu daily. 3. Ascorbic acid 500 mg p.o. daily. 4. Atorvastatin 40 mg p.o. daily. 5. Carvedilol 3.125 mg p.o. b.i.d. 6. Clotrimazole cream one application topically daily. 7. Ezetimibe 10 mg p.o. daily. 8. Famotidine 20 mg p.o. b.i.d. 9. Fludrocortisone one tablet p.o. daily. 10. Insulin detemir 35 units subcu q.a.m. 11. Iron ascorbic acid one tablet p.o. daily. 12. Prednisone 60 mg p.o. q.a.m. 13. Rivaroxaban 10 mg p.o. daily. 14. Tamsulosin 0.4 mg p.o. daily. 15. Tramadol 50 mg p.o. q.6 hours p.r.n. DISCONTINUED MEDICATIONS: None. HISTORY OF PRESENT ILLNESS/HOSPITAL COURSE: The patient is a 59-year-old male with a past medical history of Still disease, hypertension, CHF, hyperlipidemia, type 2 diabetes, and history of DVT, who presented to the ED via EMS with reports of altered mental status since that morning. Per EMS report, the patient's family reported the patient had a fever for the past few days with acute mental status change today and was described as nonresponsive. The patient has a history of frequent hospitalizations including four in the past month associated with noncompliance with home medications that resulted in adrenal crisis. In the past, the patient stated that he does not have help at home and often gets confused about his medication regimen. Upon admission, the patient was able to follow commands and nodded no when asked review of system questions. Otherwise, history is obtained from chart review. In the ED, the patient was hypotensive with the lowest systolic measuring in the 60s. He was tachypneic to the 30s. A central line was placed and he was started on epinephrine and Levophed drips. He had acute hypoxic respiratory failure, requiring 3 L of nasal cannula. He was also given aspirin, Tylenol, azithromycin, ceftriaxone with blood pressure eventually improving to the 110 systolic. The patient was started on stress dose IV steroids and then given maintenance steroids. Eventually, he was transitioned back to his home dose. Family brought his Anakinra to the hospital. The patient had positive SIRS criteria, which he often does on admission including low blood pressure, tachycardia, tachypnea, elevated white blood cells, and fever. No source of infection was identified during hospital stay despite evaluation. On day #3 of hospital stay, the patient developed increased transaminitis. Right upper quadrant ultrasound was done showing results as listed above. The patient was monitored and LFTs trended back down the next day. Response was thought to be due to shock liver due to use of vasopressors in prior days. The inpatient team once again had multiple discussions with Mr. Knight about his multiple trips to the hospital. I discussed taking his medications and once he was on his home medications, he was stable. We had a family meeting phone call on the day #5 of hospital stay, where we attempted to explain the severity of the situation to his family, including what they can do to help as well as the importance of taking home medications. The patient agreed to go to rehab and then transferred to long-term care facility. There is concern that his family is not able to take adequate care of him at home. In the past, the patient has agreed to go to therapy and frequently checks himself out after a few days and goes back home. Once the patient was placed on stress dose steroids and eventually resumed on home medications, he was stable the remainder of his hospital stay. DISPOSITION: Guarded. DISCHARGE INSTRUCTIONS: 1. Location: Inpatient rehab. 2. Diet: Consistent carb, heart healthy, low-sodium. 3. Activity: As tolerated. 4. Followup: Follow up with PCP within 2 weeks. Follow up with Dr. Rosa on May 14. Follow up with Dr. Munoz, director of sales marketing as needed. Job ID: [id number]
== END 2020-04-24 16:12 | DRG 643 ==
LOC: ERS 14:02 → CCU 17:07 → 2NO 04-22 07:36 → T4-A 04-22 08:25
PROVIDERS: ADMIT Family Medicine; ATTEND Family Medicine
PROC: 06HY33Z Insertion of Infusion Device into Lower Vein, Percutaneous Approach (ICD-10-PCS; principal; 2020-04-20)
PROC: 3E043XZ Introduction of Vasopressor into Central Vein, Percutaneous Approach (ICD-10-PCS; 2020-04-20)
DX: E27.2 Addisonian crisis (principal); G93.41 Metabolic encephalopathy; I50.41 Acute combined systolic (congestive) and diastolic (congestive) heart failure; I21.A1 Myocardial infarction type 2; K72.00 Acute and subacute hepatic failure without coma; R65.10 Systemic inflammatory response syndrome (SIRS) of non-infectious origin without acute organ dysfunction; E87.2 Acidosis; N17.9 Acute kidney failure, unspecified; Z20.828 Contact with and (suspected) exposure to other viral communicable diseases; E78.5 Hyperlipidemia, unspecified; E83.51 Hypocalcemia; E86.0 Dehydration; I11.0 Hypertensive heart disease with heart failure; M06.1 Adult-onset Still's disease; G31.84 Mild cognitive impairment of uncertain or unknown etiology; I95.9 Hypotension, unspecified; E11.649 Type 2 diabetes mellitus with hypoglycemia without coma; E87.6 Hypokalemia; N40.0 Benign prostatic hyperplasia without lower urinary tract symptoms; Z86.718 Personal history of other venous thrombosis and embolism; Z91.14 Patient's other noncompliance with medication regimen; Z88.1 Allergy status to other antibiotic agents; Z79.4 Long term (current) use of insulin; Z90.49 Acquired absence of other specified parts of digestive tract; Z98.1 Arthrodesis status
CPT/HCPCS: 36415; 36416; 36600; 71045; 76705; 80053; 81003; 81015; 82140; 82553; 83605; 83880; 84145; 84484; 85025; 85060; 87040; 87086; 87324; 87449; 93005; J0171; J0456; J0692; J0696; J1720; J1815; J3480; J3490; J7070; J7512; S0028; U0002

== ENCOUNTER 2020-05-10 21:42 | Inpatient (IN) | payer MEDICARE, OTHER ==
[2020-05-10 22:32] LABS: #Lymphocytes 2.1 thou/uL (1.20-3.40); #Monocytes 0.7 thou/uL (0.11-0.59); #Neutrophils 7.1 thou/uL (1.40-6.50); %Basophils 0.5 % (0.0-1.0); %Eosinophils 0.3 % (0.0-10.0); %Lymphocytes 20.7 % (21.0-51.0); %Neutrophils 71.5 % (42.0-75.0); Hemoglobin 14.5 g/dL (14.0-18.0); Mean Corpuscular HGB CONC 30.7 g/dL (32.0-36.0); Mean Corpuscular Hemoglobin 28.5 pg (27.0-31.0); Mean Platelet Volume 8.3 fL (7.4-10.4); Platelet Count 136 thou/uL (130-400); Red Blood Cell (RBC) Count 5.09 mill/uL (4.70-6.10)
--- NOTE | 2020-05-10 22:47 | RAD ---
XR Chest 1 View Portable History: Sepsis Comparison: Radiograph April 21, 2020 Findings: Lungs are without confluent airspace consolidation, pneumothorax or effusion. Right upper q uadrant surgical clips. Advanced degenerative change right shoulder. Impression: No acute intrathoracic abnormality.
[2020-05-10 22:55] LABS: ALT (SGPT) 54 U/L (8-55); AST (SGOT) 43 U/L (5-34); Albumin 3.9 g/dL (3.5-5.0); Alkaline Phosphatase 129 U/L (40-110); Anion Gap 20 mmol/L (10-20); BUN (Urea Nitrogen) 20 mg/dL (8.4-25.7); Bilirubin, Total 1.3 mg/dL (0.2-1.2); Calc. Creatinine Clearance 0 mL/min (70-130); Carbon Dioxide 18 mmol/L (22-29); Chloride 104 mmol/L (98-107); Estimated GFR-MDRD 80; Globulin 3.5 g/dL (2.4-3.5); Glucose 175 mg/dL (70-105); Potassium 4.3 mmol/L (3.5-5.1); Protein, Total 7.4 g/dL (6.0-8.3); Sodium 138 mmol/L (136-145)
[2020-05-10 23:00] LABS: Bacteria/HPF 4+ HPF (None Seen); Bilirubin Negative (Negative); Blood, Urine 3+ (Negative); Clarity Extra Turbid (Clear); Glucose, Urine (Dipstick) Greater than 1000 mg/dL (Negative); Ketone, Urine 20 mg/dL (Negative); Leukocyte 500 Leu/uL (Negative); Nitrite 2+ (Negative); Protein, Urine (Dipstick) 100 mg/dL (Neg-Trace); RBC/HPF Greater than 50 HPF (0-3); Renal Epithelial 0-3 HPF (None Seen); Specific Gravity, Urine 1.024 (1.002-1.036); Urobilinogen Normal mg/dL (Less than 2); WBC/HPF Greater than 50 HPF (0-3); pH, Urine 5.5 (5.0-9.0)
[2020-05-10] MEDS ORDERED: cefTRIAXone\\ROCEPHIN 2 GM VIAL ONE (23:22)
[2020-05-10] MEDS ORDERED: Sodium Chloride 0.9% 100 ML ONE (23:22)
[2020-05-10] MEDS ORDERED: Azithromycin 500 MG VIAL ONE (23:22)
--- NOTE | 2020-05-11 00:05 | PDOC.FPRHP ---
- History of Present Illness Chief Complaint: pain History of Present Illness: Mr Knight is a 60yo male with pmh of Still's disease who presented to the ED for unknown reason. When asking patient why he came to the hospital he responded with "sepsis". He refused to answer most other questions. There was no one else at bedside to provide information. Called family member listed on chart with no answer. He has a history of multiple hospital admission secondary to medication non-compliance. Nurse stated that he was recently released from rehab. She states that when she did straight cath, urine had strong odor and thick white discharge was present. Denies dysuria, urinary frequency, abdominal pain, fever. ED Course: azithromycin 500mg, ceftriaxone 2g, 1L NS - Allergies/Adverse Reactions Allergies Allergy/AdvReac Type Severity Reaction Status Date / Time vancomycin Allergy Intermediate Verified 04/11/20 15:06 - Home Medications Medication Instructions Recorded Confirmed Type Atorvastatin Calcium [Lipitor] 40 mg PO HS 10/18/15 04/21/20 History Anakinra [Kineret] 100 mg SQ DAILY 09/01/18 04/21/20 History Ezetimibe [Zetia] 10 mg PO QAM tab 01/03/19 04/21/20 Rx Carvedilol [Coreg] 3.125 mg PO BID #0 tab 03/22/20 04/21/20 Rx Insulin Detemir [Levemir] 35 units SQ QAM 03/27/20 04/21/20 History Rivaroxaban [Xarelto] 0.5 tab PO QPM 03/27/20 04/21/20 History Tamsulosin HCl [Flomax] 0.4 mg PO QPM 03/27/20 04/21/20 History predniSONE 60 mg PO QAM 03/27/20 04/21/20 History traMADol HCl [Tramadol HCl] 50 mg PO Q6HR PRN 03/27/20 04/21/20 History Alogliptin 25 mg PO DAILY 04/21/20 04/21/20 History Clotrimazole 1% Cream [Lotrimin 1% 1 applic TOP DAILY 04/21/20 04/21/20 History Cream] Famotidine [Pepcid AC] 20 mg PO BID 04/21/20 04/21/20 History Fludrocortisone Acetate [Florinef] 1 tab PO DAILY 04/21/20 04/21/20 History Iron,Carbonyl/Ascorbic Acid [Iron 1 tab PO DAILY 04/21/20 04/21/20 History 100-Vitamin C] Ascorbic Acid [Vitamin C] 500 mg PO DAILY tab 04/24/20 Rx - History Pt unable to provide history. History obtained from past records PMHx: DMII, HTN, Still's disease, HLD, Adrenal insufficiency, DVT, CHF (02/2020 showed EF 40-45%, 1/3 diastolic dysfunction), BPH PSHx: Cholecystectomy, L shoulder surgery, L knee surgery, C spine fusion FHx: noncontributory Social: No history of tobacco, alcohol or drug use. Lives at home with aunt. Has HH. Previously discharged to rehab following hospitalization. - Review of Systems ROS unobtainable: due to mental status (poor cooperation) Genitourinary: denies: dysuria, polyuria, discharge Musculoskeletal: denies: pain - Vital signs BP: 110/75 HR: 110 RR: 12 Tmax: 100.3 Pox: 100% on RA Wt: 82.5kg - Physical Exam Constitutional: NAD, awake, alert and oriented, well developed -Constitutional: Not cooperative with interview HEENT: normocephalic and atraumatic, grossly normal vision, grossly normal hearing Neck: supple, trachea midline Heart: RRR, normal S1/S2, no murmurs/rubs/gallops -Heart: 2+ pitting edema of Right LE, nontender to palpation Lungs: CTAB, no respiratory distress, no wheezing Abdomen: soft, non-tender, bowel sounds present Skin: no jaundice -Skin: hyperpigmented lesions scattered across chest FMR H&P: Results - Labs Result Diagrams: 05/10/20 22:09 05/10/20 22:09 Lab results: WBC 10.0 thou/uL (4.8-10.8) 05/10/20 22:09 Hgb 14.5 g/dL (14.0-18.0) 05/10/20 22:09 Hct 47.3 % (42.0-52.0) 05/10/20 22:09 MCV 93.0 fL (78.0-98.0) 05/10/20 22:09 Plt Count 136 thou/uL (130-400) 05/10/20 22:09 Neutrophils % 71.5 % (42.0-75.0) 05/10/20 22:09 Sodium 138 mmol/L (136-145) 05/10/20 22:09 Potassium 4.3 mmol/L (3.5-5.1) 05/10/20 22:09 Chloride 104 mmol/L (98-107) 05/10/20 22:09 Carbon Dioxide 18 mmol/L (22-29) L 05/10/20 22:09 BUN 20 mg/dL (8.4-25.7) 05/10/20 22:09 Creatinine 1.13 mg/dL (0.7-1.3) 05/10/20 22:09 Glucose 175 mg/dL (70-105) H 05/10/20 22:09 Lactic Acid 1.5 mmol/L (0.5-2.2) 05/10/20 22:09 Calcium 9.0 mg/dL (7.8-10.44) 05/10/20 22:09 Total Bilirubin 1.3 mg/dL (0.2-1.2) H 05/10/20 22:09 AST 43 U/L (5-34) H 05/10/20 22:09 ALT 54 U/L (8-55) 05/10/20 22:09 Alkaline Phosphatase 129 U/L (40-110) H 05/10/20 22:09 Serum Total Protein 7.4 g/dL (6.0-8.3) 05/10/20 22:09 Albumin 3.9 g/dL (3.5-5.0) 05/10/20 22:09 Urine Ketones 20 mg/dL (Negative) A 05/10/20 22:31 Urine Blood 3+ (Negative) A 05/10/20 22:31 Urine Nitrite 2+ (Negative) A 05/10/20 22:31 Ur Leukocyte Esterase 500 David/uL (Negative) A 05/10/20 22:31 Urine RBC Greater than 50 HPF (0-3) A 05/10/20 22:31 Urine WBC Greater than 50 HPF (0-3) A 05/10/20 22:31 Ur Squamous Epith Cells 4-6 HPF (0-3) A 05/10/20 22:31 Urine Bacteria 4+ HPF (None Seen) A 05/10/20 22:31 FMR H&P: A/P - Plan #sepsis 2/2 UTI - HR 120, RR 22, UA: + for nitrite, leuk est, WBC, bact, glucose, blood; WBC 10 - hx of urine culture on 04/28/20, that grew klebsiella sensitive to meropenem - given azithromycin and ceftriaxone in ED, discontinued those and started meropenem - pending blood and urine cultures - consult case management- discharge planning - consider calling family member to elicit more history as we are unsure why he presented to ED #DM2 -SSI, glucose checks ACHS #HFrEF -echo on 02/2020 showed EF 40-45%, grade 1/3 diastolic dysfunction -daily weights, strict I/Os -continue home meds #Still's Disease -continue home meds #hx of DVT -continue home med xarelto #HTN -continue home meds #HLD -continue home meds Code: Full PCP: Terrance Boyce DVT ppx: xarelto IVF: SL Diet: CC Dispo: admit to inpatient tele, LOS >48hrs FMR H&P: Upper Level - Plan Date/Time: 05/11/20 0004 Mr Knight is a 60yo male with Stills disease who presented to the ED for "concern my sepsis is back." Pt is poor historian. Previously here for sepsis 2/2 UTI. Denies dysuria, frequency, fever, chills, pain. Nursing reports thick malodorous urine. PE: General: NAD CV: RRR, no murmurs Pulm: CTA b/l Abdomen: Nontender Extremities: LE pitting edema A/P: Sepsis 2/2 UTI -Initially Tachycardic and tachypneic with Tmax 100.3. UA c/w infection. CXR with no acute findings. Bld cultures collected. Received Azithromycin and Ceftriaxone in ED. Reviewed prior Urine culture results with last 2 Klebsiella with high rates of resistance, sensitive to Meropenem. Will continue on Meropenem until urine culture results. Admit to telemetry due to tachycardia. I, Deepali Bojorquez, have evaluated this patient and agree with findings/plan as outlined by planner internship resident. Pertinent changes/additions are listed here.
[2020-05-11] MEDS ORDERED: Dextrose 50% Abboject 50 ML SYRINGE SLOW IVP PRN (00:30)
[2020-05-11] MEDS ORDERED: Ondansetron ODT 4 MG TAB PO PRN (00:30)
[2020-05-11] MEDS ORDERED: Dextrose 5% in Water 1,000 ML IV PRN (00:30)
[2020-05-11] MEDS ORDERED: Ondansetron PF 4 MG/2 ML Vial IVP PRN (00:30)
[2020-05-11] MEDS: MEROPENEM 1 GM/50 ML 1 GM in Premix Bag 1 BAG IVPB SCH ×3 (04:50→20:40)
[2020-05-11] MEDS ORDERED: Non-Formulary Item 1 EACH (Insulin Detemir [Levemir] 100 UNIT/ML Vial) SQ SCH (09:00)
[2020-05-11] MEDS ORDERED: ANAKINRA SQ SCH (09:00)
[2020-05-11] MEDS ORDERED: Fludrocortisone Acetate 0.1 MG TAB PO SCH (09:00)
[2020-05-11] MEDS: Carvedilol 3.125 MG TAB PO SCH ×2 (09:44→20:40)
[2020-05-11] MEDS: Ezetimibe 10 MG TAB PO SCH (09:44)
[2020-05-11] MEDS: Alogliptin 25 MG TAB PO SCH (09:44)
[2020-05-11] MEDS: Insulin Glargine 35 UNITS in Pre-Filled Syringe 1 EACH SC SCH (09:45)
[2020-05-11] MEDS: Fludrocortisone Acetate 0.1 MG TAB PO SCH (09:45)
[2020-05-11] MEDS: predniSONE 20 MG TAB PO SCH (09:45)
--- NOTE | 2020-05-11 10:15 | ULT ---
EXAM: Right lower extremity venous Doppler HISTORY: Right lower extremity edema. FINDINGS: Grayscale, color-flow, Doppler evaluation, spectral analysis of the right lower extremity venous stru ctures is performed with 2-D imaging. The right common femoral, superficial femoral, popliteal, posterior tibial, proximal greater saphenous and profunda femoral veins are imaged. There is normal luminal compressibility, flow, and augmentation in the visualized deep venous structu res of the right lower extremity. There is mild subcutaneous edema seen. IMPRESSION: 1. No evidence of a deep vein thrombosis in the visualized deep venous structures right lower extremi ty. 2. Mild subcutaneous edema.
--- NOTE | 2020-05-11 10:23 | ULT ---
Bilateral renal ultrasound CLINICAL INDICATION: Recurrent urinary tract infection COMPARISON: 09/02/2018 FINDINGS: Right kidney: There is a circumscribed anechoic exophytic lesion with posterior acoustic enhancement superior pole right kidney which measures 5 cm in maximal dimensions. This is larger in size compared to the prior study with largest measurement of 4.3 cm. This is most compatible with mild enl argement of a superior pole right renal cyst. No right hydronephrosis or renal calculus is seen.The right kidney measures 11.5 cm x 5.6 cm. Left kidney: There is a hypoechoic structure measuring 2.1 cm at the medial aspect inferior pole left kidney which is difficult to definitively characterize as a simple cyst based on this examination primarily related to difficulty in imaging. However, prior CT examinations of the abdomen on 07/06/20 and 02/25/2020 demonstrated fluid attenuation lesion in this region compatible with a cyst. No renal calculus or hydronephrosis is seen on the left. The left kidney measures 11 cm x 5 cm.. Urinary bladder: Small amount of echogenic material within the urinary bladder suggesting debris. Uri nary bladder is distended with urinary bladder volume of 256.7 mL. Palacios of the urinary bladder do appear mildly thickened. IMPRESSION: 1. No evidence of hydronephrosis. 2. Bilateral renal cysts. 3. Suggestion mild thickening of the urinary bladder wall diffusely. Mild urinary bladder wall thicke wendi, and this was also present on study CT examination in 2019 suggesting that this is a chronic finding. Small amount of debris is present in the urinary bladder.
--- NOTE | 2020-05-11 11:21 | HP ---
Please see the history and physical done by Dr. Caity Brannon, for which I agree. The patient was seen, evaluated, discussed, and examined with the residents by bedside. HISTORY OF PRESENT ILLNESS: This is a 60-year-old with history of Still disease, who frequently quits taking his prednisone and then had adrenal insufficiency and often is being admitted for hypotension and potential sepsis. He does not remember why the ambulance was called on him. He is assuming decreased level of consciousness, but he does remember anything. He do not have much other history other than that. Otherwise, he was found to have a pretty bad and obvious UTI based on urinalysis and apparently discharge from the penis area and although, not really having a fever by the time we saw him, a few hours later he states he actually feels fine. He was having some right lower extremity edema and he states he has had a clot in that leg before, so we are checking a Doppler on that. ALLERGIES: OTHERWISE PER DR. BRANNON'S HISTORY AND PHYSICAL. HOME MEDICATIONS: Otherwise per Dr. Brannon's history and physical. PAST MEDICAL HISTORY: Otherwise per Dr. Brannon's history and physical. PAST SURGICAL HISTORY: Otherwise per Dr. Brannon's history and physical. FAMILY HISTORY: Otherwise per Dr. Brannon's history and physical. SOCIAL HISTORY: Otherwise per Dr. Brannon's history and physical. REVIEW OF SYSTEMS: Otherwise per Dr. Brannon's history and physical. PHYSICAL EXAMINATION: VITAL SIGNS: Afebrile. He was 100.3, borderline. Oxygen level is fine. Vital signs are stable. Blood pressure is adequate at 110/75. GENERAL: No apparent distress. Seems to be alert and oriented x3. ENT: Conjunctivae not pale. Sclerae anicteric. Moist mucosa. NECK: No JVD. No lymphadenopathy or bruits. CHEST: Clear. HEART: Regular rate and rhythm. ABDOMEN: Benign. EXTREMITIES: Trace edema in right lower extremity. Negative cords. Negative Homans. LABORATORY DATA: Significant for slightly decreased bicarbonate at 18. Sugar was not bad at 175. Urinalysis definitely looks infected. ASSESSMENT AND PLAN: 1. Sepsis, likely from urinary tract infection. Plan is to keep him on meropenem based on a previous and recent culture results. 2. Diabetes. Continue home insulin sliding scale. 3. Heart failure, reduced ejection fraction. 4. Still disease. Continue same steroids. Based on blood pressure and pulse being fine, I do not think there is need or reason for giving him stress dose, we will discontinue home dose of prednisone. Otherwise, we will continue same other home medications. Job ID: [id number]
[2020-05-11 12:27] LABS: SARS-CoV-2 MS2 Positive; SARS-CoV-2 N Gene Negative; SARS-CoV-2 S Gene Negative; SARS-CoV-2 by NAA Not Detected (NotDetected); SARS-CoV-2 orf1ab Negative
[2020-05-11] MEDS: HumaLOG 300 UNITS/3 ML VIAL SC PRN ×3 (12:55→21:30)
[2020-05-11] MEDS: Tamsulosin HCl 0.4 MG CAP PO SCH (20:40)
[2020-05-11] MEDS: Famotidine 20 MG TAB PO SCH (20:40)
[2020-05-11] MEDS: Atorvastatin Calcium 20 MG TAB PO SCH (20:40)
[2020-05-11] MEDS: Rivaroxaban 10 MG TAB PO SCH (20:40)
[2020-05-12] MEDS: MEROPENEM 1 GM/50 ML 1 GM in Premix Bag 1 BAG IVPB SCH ×3 (05:00→21:06)
--- NOTE | 2020-05-12 05:59 | PDOC.FM ---
- Subjective Subjective: Patient says he is feeling well without complaints. Denies headache, vision changes, chest pain, palpitations, SOB, nausea and abdominal pain. He does not remember being transported from home to the ED. He reports increased frequency of episodes where he cannot remember events. He denies fevers, chills, fatigue, abdominal pain, dysuria and hematuria. He says he is open to tank terminal gauger living facilities now due to frequent hospitalizations and family frustrations taking care of him. - Objective MAR Reviewed: Yes Vital Signs & Weight: Vital Signs (12 hours) Temp Pulse Resp BP Pulse Ox 05/12/20 04:00 98.6 F 88 16 146/67 H 98 05/11/20 20:00 98 05/11/20 19:28 98.5 F 90 16 127/63 98 Weight Weight 69.5 kg Result Diagrams: 05/12/20 09:38 05/12/20 09:38 Phys Exam - Physical Examination Constitutional: NAD HEENT: moist MMs, sclera anicteric Neck: supple, full ROM Respiratory: no wheezing, clear to auscultation bilateral Cardiovascular: RRR, no significant murmur Gastrointestinal: soft, non-tender, no distention, positive bowel sounds Musculoskeletal: no edema, pulses present Neurological: non-focal, moves all 4 limbs Psychiatric: normal affect, A&O x 3 Skin: no rash, normal turgor Dx/Plan - Plan Plan: Sepsis 2/2 UTI Met sepsis criteria in ED due to HR 120, RR 22, UA: + for nitrite, leuk est, WBC, bact, glucose, blood. WBC 10. Hx of urine culture on 04/28/20, that grew klebsiella sensitive to meropenem. Given azithromycin and ceftriaxone in ED - Started on meropenem 05/11 - Prelim urine cx: gram negative macey, possibly mixed - Blood cx pending - NSR on tele - Consulted case management for discharge planning. Per patient's PCP, family recently agreed to tank terminal gauger placement. Patient is also open to placement. DM2 -SSI, glucose checks ACHS -Continue home lantus HFrEF Echo on 02/2020 showed EF 40-45%, grade 1/3 diastolic dysfunction -daily weights, strict I/Os -continue home meds Still's Disease -continue home meds Hx of DVT -continue home med xarelto HTN -continue home meds HLD -continue home meds BPH -Continue home meds Code: Full PCP: Terrance Boyce DVT ppx: [email or web address] Dispo: SNF vs. NH pending adequate treatment and placement approval Addendum - Attending - Attending Attestation Date/Time: 05/12/20 [id number] I personally evaluated the patient and discussed the management with Dr. Comer. I agree with the History, Examination, Assessment and Plan documented above with any addition or exceptions noted below.
[2020-05-12] MEDS: HumaLOG 300 UNITS/3 ML VIAL SC PRN ×4 (06:00→20:21)
[2020-05-12] MEDS ORDERED: Non-Formulary Item 1 EACH (Insulin Detemir [Levemir] 100 UNIT/ML Vial) SQ SCH (09:00)
[2020-05-12] MEDS ORDERED: Non-Formulary Item 1 EACH (Linagliptin [Tradjenta] 5 MG Tablet) PO SCH (09:00)
[2020-05-12] MEDS ORDERED: IRON CARBONYL PO SCH (09:00)
[2020-05-12] MEDS ORDERED: [UNRECOGNIZED DRUG - OTHER] PO SCH (09:00)
[2020-05-12] MEDS ORDERED: ASCORBIC ACID PO SCH (09:00)
[2020-05-12] MEDS: Alogliptin 25 MG TAB PO SCH (09:39)
[2020-05-12] MEDS: Ascorbic Acid 500 mg Chewable Tablet PO SCH (09:39)
[2020-05-12] MEDS: Carvedilol 3.125 MG TAB PO SCH ×2 (09:40→20:21)
[2020-05-12] MEDS: Ezetimibe 10 MG TAB PO SCH (09:41)
[2020-05-12] MEDS: predniSONE 20 MG TAB PO SCH (09:41)
[2020-05-12] MEDS: Fludrocortisone Acetate 0.1 MG TAB PO SCH (09:41)
[2020-05-12] MEDS: Famotidine 20 MG TAB PO SCH ×2 (09:41→20:21)
[2020-05-12] MEDS: Insulin Glargine 35 UNITS in Pre-Filled Syringe 1 EACH SC SCH (09:48)
[2020-05-12 09:54] LABS: #Basophils 0.1 thou/uL (0.0-0.2); #Lymphocytes 3.1 thou/uL (1.20-3.40); #Monocytes 0.7 thou/uL (0.11-0.59); %Basophils 0.6 % (0.0-1.0); %Eosinophils 0.5 % (0.0-10.0); %Lymphocytes 39.1 % (21.0-51.0); %Monocytes 9.1 % (0.0-10.0); %Neutrophils 50.8 % (42.0-75.0); Hemoglobin 12.6 g/dL (14.0-18.0); Mean Corpuscular HGB CONC 30.9 g/dL (32.0-36.0); Mean Corpuscular Hemoglobin 28.1 pg (27.0-31.0); Mean Platelet Volume 8.9 fL (7.4-10.4); Platelet Count 127 thou/uL (130-400); RBC Distribution Width 18.1 % (11.5-14.5); Red Blood Cell (RBC) Count 4.48 mill/uL (4.70-6.10); White Blood Cell (WBC) Count 7.8 thou/uL (4.8-10.8)
[2020-05-12 10:14] LABS: Anion Gap 17 mmol/L (10-20); BUN (Urea Nitrogen) 16 mg/dL (8.4-25.7); Calc. Creatinine Clearance 82 mL/min (70-130); Carbon Dioxide 21 mmol/L (22-29); Chloride 107 mmol/L (98-107); Estimated GFR-MDRD Greater than 90; Glucose 230 mg/dL (70-105); Potassium 3.7 mmol/L (3.5-5.1); Sodium 141 mmol/L (136-145)
[2020-05-12] MEDS: Rivaroxaban 10 MG TAB PO SCH (20:21)
[2020-05-12] MEDS: Tamsulosin HCl 0.4 MG CAP PO SCH (20:21)
[2020-05-12] MEDS: Atorvastatin Calcium 20 MG TAB PO SCH (20:21)
[2020-05-13] MEDS: MEROPENEM 1 GM/50 ML 1 GM in Premix Bag 1 BAG IVPB SCH ×3 (05:27→21:03)
[2020-05-13] MEDS: HumaLOG 300 UNITS/3 ML VIAL SC PRN ×4 (05:28→20:05)
[2020-05-13 05:51] LABS: #Lymphocytes 1.6 thou/uL (1.20-3.40); #Monocytes 0.5 thou/uL (0.11-0.59); #Neutrophils 2.9 thou/uL (1.40-6.50); %Basophils 0.5 % (0.0-1.0); %Eosinophils 0.3 % (0.0-10.0); %Lymphocytes 31.2 % (21.0-51.0); %Monocytes 10.7 % (0.0-10.0); %Neutrophils 57.3 % (42.0-75.0); Hemoglobin 10.5 g/dL (14.0-18.0); Mean Corpuscular HGB CONC 31.8 g/dL (32.0-36.0); Mean Corpuscular Hemoglobin 28.6 pg (27.0-31.0); Mean Platelet Volume 9.2 fL (7.4-10.4); Platelet Count 106 thou/uL (130-400); RBC Distribution Width 17.7 % (11.5-14.5); Red Blood Cell (RBC) Count 3.66 mill/uL (4.70-6.10)
[2020-05-13 06:04] LABS: Anion Gap 13 mmol/L (10-20); BUN (Urea Nitrogen) 17 mg/dL (8.4-25.7); Calc. Creatinine Clearance 95 mL/min (70-130); Calcium 8.5 mg/dL (7.8-10.44); Carbon Dioxide 21 mmol/L (22-29); Chloride 110 mmol/L (98-107); Estimated GFR-MDRD Greater than 90; Glucose 350 mg/dL (70-105); Potassium 3.8 mmol/L (3.5-5.1); Sodium 140 mmol/L (136-145)
--- NOTE | 2020-05-13 07:00 | PDOC.FM ---
- Subjective Subjective: Patient reports feeling well. He denies headache, vision changes, chest pain, SOB, nausea, abdominal pain, leg pain, erythema and edema. He says he is ready to go to remote computer terminal operator placement. - Objective MAR Reviewed: Yes Vital Signs & Weight: Vital Signs (12 hours) Temp Pulse Resp BP Pulse Ox 05/13/20 03:34 97.8 F 82 19 128/72 98 05/13/20 00:00 97.9 F 82 17 117/69 98 05/12/20 19:40 100 05/12/20 19:39 97.9 F 91 18 112/77 100 Weight Weight 70.08 kg I&O: 05/11/20 05/12/20 05/13/20 06:59 06:59 06:59 Intake Total 600 770 Output Total 1500 750 Balance -900 20 Result Diagrams: 05/13/20 05:26 05/13/20 05:26 Phys Exam - Physical Examination Constitutional: NAD HEENT: moist MMs, sclera anicteric Neck: supple, full ROM Respiratory: no wheezing, clear to auscultation bilateral Cardiovascular: RRR, no significant murmur Gastrointestinal: soft, non-tender, positive bowel sounds Musculoskeletal: no edema, pulses present Neurological: non-focal, moves all 4 limbs Psychiatric: normal affect, A&O x 3 Skin: no rash, cap refill <2 seconds Dx/Plan - Plan Plan: Sepsis, resolved 2/2 UTI Met sepsis criteria in ED due to HR 120, RR 22, UA: + for nitrite, leuk est, WBC, bact, glucose, blood. Hx of urine culture on 04/28/20 that grew klebsiella sensitive only to meropenem. Given azithromycin and ceftriaxone in ED. - Final urine cx: klebsiella. - Prelim bcx: MRSE - Continue meropenem (started on 05/11) - Dr. Nickerson consulted. F/u on recs for antibiotic management - Consulted case management for remote computer terminal operator placement coordination DM2 -SSI aggressive, glucose checks ACHS -Continue home lantus HFrEF Echo on 02/2020 showed EF 40-45%, grade 1/3 diastolic dysfunction -daily weights, strict I/Os -continue home meds Still's Disease -continue home meds Hx of DVT -continue home med xarelto HTN -continue home meds HLD -continue home meds BPH -Continue home meds Code: Full PCP: Terrance Boyce DVT ppx: [email or web address] Dispo: [facility] per family preference pending adequate treatment and placement approval Addendum - Attending - Attending Attestation Date/Time: 05/13/20 0486 I personally evaluated the patient and discussed the management with Dr. Comer. I agree with the History, Examination, Assessment and Plan documented above with any addition or exceptions noted below.
[2020-05-13] MEDS: Ezetimibe 10 MG TAB PO SCH (08:28)
[2020-05-13] MEDS: Alogliptin 25 MG TAB PO SCH (08:28)
[2020-05-13] MEDS: Fludrocortisone Acetate 0.1 MG TAB PO SCH (08:28)
[2020-05-13] MEDS: Famotidine 20 MG TAB PO SCH ×2 (08:28→20:05)
[2020-05-13] MEDS: predniSONE 20 MG TAB PO SCH (08:29)
[2020-05-13] MEDS: Carvedilol 3.125 MG TAB PO SCH ×2 (08:30→20:05)
[2020-05-13] MEDS: Insulin Glargine 35 UNITS in Pre-Filled Syringe 1 EACH SC SCH (08:30)
[2020-05-13] MEDS: Ascorbic Acid 500 mg Chewable Tablet PO SCH (08:30)
[2020-05-13] MEDS ORDERED: Insulin Glargine 14 UNITS in Pre-Filled Syringe 1 EACH SC ONE (09:00)
[2020-05-13] MEDS ORDERED: Insulin Glargine 14 UNITS in Pre-Filled Syringe 1 EACH SC SCH (10:15)
[2020-05-13] MEDS: Acetaminophen 325 MG TAB PO PRN (19:36)
[2020-05-13] MEDS: Tamsulosin HCl 0.4 MG CAP PO SCH (20:05)
[2020-05-13] MEDS: Rivaroxaban 10 MG TAB PO SCH (20:05)
[2020-05-13] MEDS: Atorvastatin Calcium 20 MG TAB PO SCH (20:05)
--- NOTE | 2020-05-13 22:08 | CON ---
DATE OF CONSULTATION: 05/13/2020 REASON FOR CONSULTATION: Fever. HISTORY OF PRESENT ILLNESS: Mr. Knight is well known to me from multiple prior visits, history of type 2 diabetes; C-spine fusion; Adult Still's disease; rheumatoid arthritis, on anakinra and prednisone; with many admissions for fever associated with interruption of anakinra in the past, has had two infections with bacteremia. The bacteremia episodes include alpha Streptococcus pneumoniae in January 26 and he had E. coli in one set of blood cultures from July 10. He had MRSA from December 08 blood culture and most of the admissions were not associated with a significant microbiology finding. It was felt to be due to his underlying autoimmune syndrome. He has had abnormal urinalysis in the past intermittently. He lives with his family and apparently the family is considering putting him in a long-term. Once he was diagnosed with adrenal insufficiency, probably iatrogenic, and the last time the recrudescence was due to interruption of anakinra most likely, but now he has been compliant and still became ill with altered mental state, fever, tachycardia. On arrival to the emergency room, his BP 105/70, heart rate 121, respirations 22, temperature 100.3, O2 saturation 99% on room air. He was described as in no acute distress and most of the examination was normal. The initial findings also included sodium 138, creatinine 1.13, glucose 175, bilirubin 1.3, AST 43, ALT 54, alkaline phosphatase 129, and albumin 3.9. White cell count was 10.0, hemoglobin 14.5, platelets 136, 71% neutrophils. The urinalysis was markedly abnormal with greater than 50 wbc's, protein 100, and cultures with Klebsiella pneumoniae, which had an ESBL phenotype quite resistant strain. The patient has been given meropenem and has improved significantly, right now he is back to baseline. He denies any headaches, visual symptoms, sore throat, odynophagia, or dysphagia. No cough or sputum production, chest pain. No abdominal pain. Voiding without difficulty. No joint symptoms other than his usual. PAST MEDICAL HISTORY: Includes type 2 diabetes, Adult Still's disease, UTIs, rheumatoid arthritis, cholecystectomy, shoulder repair, neck fusion, knee arthroscopy. SOCIAL HISTORY: Lives with family in [place]. Never smoker. FAMILY HISTORY: Coronary artery disease, type 2 diabetes. ALLERGIES: VANCOMYCIN, PROBABLY RED MAN SYNDROME, NOT TRUE ALLERGY. CURRENT MEDICATIONS: Includes: 1. Alogliptin. 2. Kineret. 3. Vitamin C. 4. Lipitor. 5. Coreg. 6. Pepcid. 7. Florinef. 8. Glucagon. 9. Meropenem. 10. Methotrexate. PHYSICAL EXAMINATION: VITAL SIGNS: Afebrile since admission, BP 117/67, pulse 84, respirations 18, and O2 saturation 100. GENERAL: Does not appear in distress. He does not remember the events surrounding the clinical changes that led to admission. I tried to contact family members but they were not available. SKIN: Exam with peripheral IV access. He is voiding in the toilet. No lymphadenopathy. HEENT: Ocular movements conjugate. Sclerae white. Pupils are equal. Oral cavity normal. NECK: Supple. LUNGS: Symmetric, clear breath sounds. HEART: S1 and S2. Regular rate without murmurs. ABDOMEN: Soft, not distended or tender. No ascites. : No bladder distention. EXTREMITIES: No joint inflammatory activity at this moment. A little bit of stiffness in the joints. Moves extremities equally. He has a stooping gait and shuffles a little bit. LABORATORY DATA: Followup white cell count 5.0, hemoglobin 10.5, MCV 90, platelets 106, and TSH 0.95. SARS-CoV-2 not detected. ASSESSMENT: Type 2 diabetes, rheumatoid arthritis/adult Still's disease, multiple admissions with fever, some of them ascribed to infectious complications, some of them due to interruption of immunosuppressive medication. At this time, we will have the urinary findings, which I am afraid we are going to have to treat it, although he does not have any symptoms at the moment, but he has been on antimicrobials now for 3 to 4 days. We would give him another 3 days of Merrem or Invanz to complete therapy and then discharge planning back on his oral medications. It looks more likely that this is a result of true UTI. As noted in the H and P, the patient has had documented invasive UTI with bacteremia in the past. His PSA has been normal in 2017. May want to repeat it. He does have some mild thickening of the urinary bladder wall. He may need Urology evaluation to assess this multiple episodes of UTI. Looks like Dr. Akhtar saw him in 2018 and he recommended the CT which was carried out and there were no major complications. It looks like they checked his postvoid residual here and was okay, so I think another few days, two or three days, of meropenem and now we can stop antimicrobial therapy and consider discharge planning. Addendum: after dictating this note I was able to discuss his progress with his sister, who lives with him and she states that there has been clear cut cognitive decline which is more consistent with an encephalopathy than dementia vis-a-vis the waxin-waning nature of the course of the cognitive changes. Specifically there are times where he develops a confusional state and cannot remember things Will order MRI brain and CSF eval in view of his immunosuppression as part of treatment for adult Still's disease. Eval for oportunistic pathogens as well. Job ID: [id number] [facility]
[2020-05-14] MEDS: MEROPENEM 1 GM/50 ML 1 GM in Premix Bag 1 BAG IVPB SCH ×3 (05:23→21:53)
[2020-05-14] MEDS: HumaLOG 300 UNITS/3 ML VIAL SC PRN ×3 (05:23→21:54)
[2020-05-14 06:00] LABS: #Lymphocytes 1.2 thou/uL (1.20-3.40); #Monocytes 0.6 thou/uL (0.11-0.59); #Neutrophils 2.9 thou/uL (1.40-6.50); %Basophils 0.2 % (0.0-1.0); %Eosinophils 0.4 % (0.0-10.0); %Lymphocytes 25.4 % (21.0-51.0); %Monocytes 12.1 % (0.0-10.0); %Neutrophils 61.8 % (42.0-75.0); Hemoglobin 11.2 g/dL (14.0-18.0); Mean Corpuscular HGB CONC 31.3 g/dL (32.0-36.0); Mean Corpuscular Hemoglobin 27.9 pg (27.0-31.0); Mean Corpuscular Volume 89.4 fL (78.0-98.0); Mean Platelet Volume 8.8 fL (7.4-10.4); Platelet Count 110 thou/uL (130-400); RBC Distribution Width 17.7 % (11.5-14.5); Red Blood Cell (RBC) Count 4.01 mill/uL (4.70-6.10); White Blood Cell (WBC) Count 4.7 thou/uL (4.8-10.8)
[2020-05-14 06:10] LABS: Anion Gap 13 mmol/L (10-20); BUN (Urea Nitrogen) 19 mg/dL (8.4-25.7); Calc. Creatinine Clearance 100 mL/min (70-130); Calcium 8.5 mg/dL (7.8-10.44); Carbon Dioxide 26 mmol/L (22-29); Chloride 107 mmol/L (98-107); Estimated GFR-MDRD Greater than 90; Glucose 181 mg/dL (70-105); Potassium 3.7 mmol/L (3.5-5.1); Sodium 142 mmol/L (136-145)
--- NOTE | 2020-05-14 06:37 | PDOC.FM ---
- Subjective Subjective: Patient reports he is feeling well. He denies headache, vision changes, chest pain, SOB, nausea, abdominal pain, dysuria and hematuria. He was able to visit with his sister yesterday and says he is ready to leave the hospital for a NH. - Objective MAR Reviewed: Yes Vital Signs & Weight: Vital Signs (12 hours) Temp Pulse Resp BP Pulse Ox 05/14/20 05:00 97.6 F 75 17 126/84 100 05/14/20 00:00 18 05/13/20 19:21 98.2 F 79 17 131/80 100 Weight Weight 68.674 kg I&O: 05/12/20 05/13/20 05/14/20 06:59 06:59 06:59 Intake Total 959 409 7257 Output Total 6905 079 5865 Balance -900 20 10 Result Diagrams: 05/14/20 05:30 05/14/20 05:30 Phys Exam - Physical Examination Constitutional: NAD HEENT: moist MMs, sclera anicteric Neck: supple, full ROM Respiratory: no wheezing, clear to auscultation bilateral Cardiovascular: RRR, no significant murmur Gastrointestinal: soft, positive bowel sounds Musculoskeletal: no edema, pulses present Neurological: non-focal, moves all 4 limbs Psychiatric: normal affect Deviation from normal: A&Ox2 (person, place) Skin: no rash Dx/Plan - Plan Plan: Sepsis, resolved 2/2 UTI Met sepsis criteria in ED due to HR 120, RR 22, UA: + for nitrite, leuk est, WBC, bact, glucose, blood. Hx of urine culture on 04/28/20 that grew klebsiella sensitive only to meropenem. Given azithromycin and ceftriaxone in ED (05/11). Dr. Nickreson, ID, consulted. - Final urine cx: klebsiella. - Prelim bcx: MRSE - Continue meropenem (05/11) for 3 more days, per Dr. 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 Received 24 units of Humalog over past 24 hours. -SSI aggressive, glucose checks ACHS -Continue lantus 50 units in am Dementia Patient reports history of memory loss and difficulty recalling information. He reports these episodes have increased in frequency over time. During past admission, patient scored MME 20/30. He completed HS. Due to reported waxing/w aving recently by family in setting of immunosuppression, opportunistic infections will be ruled out. -Dr. 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 Coemr. I agree with the History, Examination, Assessment and Plan documented above with any addition or exceptions noted below.
--- NOTE | 2020-05-14 09:09 | MRI ---
Exam: Brain MRI with and without contrast HISTORY: Cognitive decline. Encephalopathy. Adult still's disease. COMPARISON: None FINDINGS: Gradient echo sequence: No hemorrhage Calvarium: Appropriate T1 marrow signal intensity Midline brain parenchyma: Unremarkable Cerebrum:No parenchymal mass, mass effect or midline shift. Brain volume is age-appropriate. Cortical soria-white matter differentiation is preserved. T2 and FLAIR white matter hyperintensities due to chronic small vessel ischemic change. Ventricles: Prominence of ventricular system which is greater than expected for the overall degree of atrophy. Correlate for normal pressure hydrocephalus. Sinuses and mastoid air cells: Adequate aeration Diffusion: Central arterial flow is maintained. Absent restricted diffusion. Postcontrast images: No pathologic enhancement of the brain parenchyma. Additional incidentals: There is a T2 hyperintensity in the left parotid gland measuring approximatel y 1 cm. There does not appear to be associated enhancement. Intraparotid cyst is favored. Better characterization with a nonemergent postcontrast soft tissue neck CT is recommended. IMPRESSION: 1. No pathologic enhancement the brain parenchyma. 2. Absent restricted diffusion. No acute infarct 3. Correlate for normal pressure hydrocephalus 4. Probable cystic lesion in the left parotid gland, incompletely evaluated. Nonemergent postcontrast soft tissue neck CT is recommended.
--- NOTE | 2020-05-14 10:35 | RAD ---
Exam: Lumbar puncture with fluoroscopic guidance HISTORY: Adult still disease. Encephalopathy. Exposure: 0.2 minutes, 152.9 mcg/sq m FINDINGS: 2 views metal caster lumbar spine radiograph demonstrates 5 lumbar type vertebra. There is degener ative change with loss of disc space height at L4-L5 and L5-S1. Minimal vacuum disc phenomenon at L4-L5. There is vacuum disc phenomenon at L5-S1. Mild loss of vertebral body height at L3 and L4 is f elt to be chronic. There is a sacrum and bony pelvis appear to be intact. There are degenerative changes in the left and right hip. Successful lumbar puncture. Opening pressure was 12 cm water. Total of 16 cc of clear CSF was acquire d. No immediate or postprocedure complications TECHNIQUE: Consent obtained from a lumbar puncture. Patient's back was evaluated. The L1-L2 level was deemed appropriate. Skin was prepped and draped in a sterile fashion. 1% lidocaine, buffered with sodium bicarbonate was used for local anesthesia. Under fluoroscopic guidance, 22-gauge spinal needle s advanced into the CSF space. Prompt flow of clear CSF into the hub of the needle. Opening pressure was obtained. Via a short tubing catheter, total of 16 cc of clear CSF was collected. Patien t tolerated the procedure well. No immediate or postprocedural complications IMPRESSION: 1. Successful lumbar puncture. 16 cc of CSF was collected 2. 12 cm of water opening pressure
[2020-05-14 11:14] LABS: CSF, Glucose 94 mg/dl (40-70); CSF, Protein 109 mg/dL (15-40)
[2020-05-14 11:24] LABS: CSF Source CSF; Clarity Clear (Clear); Tube # 4
[2020-05-14] MEDS: Ascorbic Acid 500 mg Chewable Tablet PO SCH (11:26)
[2020-05-14] MEDS: predniSONE 20 MG TAB PO SCH (11:27)
[2020-05-14] MEDS: Alogliptin 25 MG TAB PO SCH (11:28)
[2020-05-14] MEDS: Famotidine 20 MG TAB PO SCH ×2 (11:28→20:33)
[2020-05-14] MEDS: Fludrocortisone Acetate 0.1 MG TAB PO SCH (11:29)
[2020-05-14] MEDS: Ezetimibe 10 MG TAB PO SCH (11:29)
[2020-05-14] MEDS: Carvedilol 3.125 MG TAB PO SCH ×2 (11:30→20:33)
[2020-05-14] MEDS: Insulin Glargine 50 UNITS in Pre-Filled Syringe 1 EACH SC SCH (11:35)
--- NOTE | 2020-05-14 14:42 | CON ---
DATE OF CONSULTATION: This is an imaging chart review note on a 60-year-old gentleman, Mr. Stephani Knight. I have not actually physically seen the patient myself for evaluation of a brain MRI and lumbar puncture findings, and investigation of what sounds to be possible development of cognitive decline and encephalopathy, specifically concerns for normal-pressure hydrocephalus. The patient is a 60-year-old man with a history of Still disease and frequent admissions for medication-related noncompliance issues related to Anakinra and febrile illness presentation. Some of these have been infectious according to Dr. Nickerson' note and including this time, which appears to be urosepsis related to rather significantly abnormal findings on UA. Review of brain MRI shows some scattered microvascular ischemic changes, certainly chronic. He does have some periventricular hyperintensity to the bilateral lateral ventricles. However, this is a more subtle finding. This could be consistent with aforementioned ischemic change. It could also be related to transependymal flow. Again, this is still rather mild in my assessment. The patient had 16 mL of CSF pulled via lumbar tap. Opening pressure was 12 cm of water. None of this is remarkable. The patient's CSF was reportedly normal appearance, but it is being sent for further analysis. From what I believe from other providers' notes and the patient's chart, his examination physically does not appear to be altered much. Neurosurgery's recommendation in a patient who is cognitively alert and interactive and physically functional would be for outpatient workup with a high-volume lumbar tap of 30 to 40 mL with paired preprocedure and postprocedure physical therapy evaluations to determine if he has functionally significant normal-pressure hydrocephalus. This can be performed in the hospital if the patient is deemed to stay there for several more days, but again this does not sound any urgent. Job ID: [id number]
[2020-05-14] MEDS: HumaLOG 300 UNITS/3 ML VIAL SC SCH (16:25)
[2020-05-14] MEDS ORDERED: Magnevist 469MG/ML 20 ML VIAL ONE (16:27)
[2020-05-14] MEDS: Atorvastatin Calcium 20 MG TAB PO SCH (20:33)
[2020-05-14] MEDS: Tamsulosin HCl 0.4 MG CAP PO SCH (20:33)
[2020-05-14] MEDS: Rivaroxaban 10 MG TAB PO SCH (20:37)
[2020-05-14] MEDS: ANAKINRA SC SCH (20:41)
[2020-05-15] MEDS: MEROPENEM 1 GM/50 ML 1 GM in Premix Bag 1 BAG IVPB SCH ×3 (05:53→21:22)
--- NOTE | 2020-05-15 06:23 | PDOC.FM ---
- Subjective Subjective: Patient says he is feeling great today. He plans to walk the halls with PT today to maintain his strength. He denies headache, vision changes, chest pain, SOB, abdominal pain and edema. - Objective MAR Reviewed: Yes Vital Signs & Weight: Vital Signs (12 hours) Temp Pulse Resp BP BP Pulse Ox 05/15/20 04:00 98.2 F 102 H 20 120/69 100 05/15/20 01:59 128/72 05/15/20 00:00 97.8 F 86 20 97/65 100 05/14/20 20:00 98.4 F 98 20 100/67 100 Weight Weight 68.674 kg I&O: 05/13/20 05/14/20 05/15/20 06:59 06:59 06:59 Intake Total 770 1810 780 Output Total 750 1800 740 Balance 20 10 40 Result Diagrams: 05/15/20 06:04 05/15/20 06:04 Phys Exam - Physical Examination Constitutional: NAD HEENT: moist MMs, sclera anicteric Neck: supple, full ROM Respiratory: no wheezing, clear to auscultation bilateral Cardiovascular: RRR, no significant murmur Gastrointestinal: soft, positive bowel sounds Musculoskeletal: no edema, pulses present Neurological: non-focal, moves all 4 limbs Psychiatric: normal affect, A&O x 3 Skin: no rash Dx/Plan - Plan Plan: Sepsis, resolved 2/2 UTI Met sepsis criteria in ED due to HR 120, RR 22, UA: + for nitrite, leuk est, WBC, bact, glucose, blood. Hx of urine culture on 04/28/20 that grew klebsiella sensitive only to meropenem. Given azithromycin and ceftriaxone in ED (05/11). Dr. Nickerson, ID, consulted. - Final urine cx: klebsiella. - Bcx: MRSE 1/2 @ 48 hours - Continue meropenem (05/11) for 2 more days, per Dr. 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 Pending approval from [facility] DM2 BG low at 42 yesterday morning, likely due to being NPO for MRI. Morning DM medications withheld. BG increased to 271->308. required 11 unit humalog. -SSI aggressive, glucose checks ACHS -Continue lantus 50 units in am Dementia Patient reports history of memory loss and difficulty recalling information. He reports these episodes have increased in frequency over time. During past admission, patient scored MME 20/30. He completed HS. Due to reported waxing/waving recently by family in setting of immunosuppression, opportunistic infections will be ruled out. -Dr. Nickerson consulted, recommended MRI Brain, XL lumbar puncture with CSF studies, cryptococcus, histoplasma, and HSV 1/2 -MRI: no acute intracranial process, probably cystic lesion in L parotid gland -LP: elevated glucose 94, elevated protein 109, normal opening pressure -Negative cryptococcus. 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 Comer. I agree with the History, Examination, Assessment and Plan documented above with any addition or exceptions noted below.
[2020-05-15 06:31] LABS: #Monocytes 0.6 thou/uL (0.11-0.59); #Neutrophils 4.2 thou/uL (1.40-6.50); %Basophils 0.4 % (0.0-1.0); %Eosinophils 0.3 % (0.0-10.0); %Lymphocytes 29.3 % (21.0-51.0); %Monocytes 8.8 % (0.0-10.0); %Neutrophils 61.2 % (42.0-75.0); Hemoglobin 12.3 g/dL (14.0-18.0); Mean Corpuscular Hemoglobin 27.8 pg (27.0-31.0); Mean Corpuscular Volume 89.7 fL (78.0-98.0); Platelet Count 137 thou/uL (130-400); RBC Distribution Width 17.8 % (11.5-14.5); Red Blood Cell (RBC) Count 4.44 mill/uL (4.70-6.10); White Blood Cell (WBC) Count 6.9 thou/uL (4.8-10.8)
[2020-05-15 06:53] LABS: Anion Gap 17 mmol/L (10-20); BUN (Urea Nitrogen) 21 mg/dL (8.4-25.7); Calc. Creatinine Clearance 84 mL/min (70-130); Calcium 9.1 mg/dL (7.8-10.44); Carbon Dioxide 24 mmol/L (22-29); Chloride 105 mmol/L (98-107); Estimated GFR-MDRD Greater than 90; Glucose 292 mg/dL (70-105); Potassium 3.6 mmol/L (3.5-5.1); Sodium 142 mmol/L (136-145)
[2020-05-15] MEDS: predniSONE 20 MG TAB PO SCH (09:15)
[2020-05-15] MEDS: Carvedilol 3.125 MG TAB PO SCH ×2 (09:16→21:21)
[2020-05-15] MEDS: Ascorbic Acid 500 mg Chewable Tablet PO SCH (09:16)
[2020-05-15] MEDS: Alogliptin 25 MG TAB PO SCH (09:17)
[2020-05-15] MEDS: Fludrocortisone Acetate 0.1 MG TAB PO SCH (09:17)
[2020-05-15] MEDS: Famotidine 20 MG TAB PO SCH ×2 (09:17→21:21)
[2020-05-15] MEDS: Ezetimibe 10 MG TAB PO SCH (09:18)
[2020-05-15] MEDS: HumaLOG 300 UNITS/3 ML VIAL SC SCH ×3 (09:19→17:32)
[2020-05-15] MEDS: Insulin Glargine 50 UNITS in Pre-Filled Syringe 1 EACH SC SCH (09:20)
[2020-05-15] MEDS: Acetaminophen 325 MG TAB PO PRN (12:25)
[2020-05-15] MEDS: HumaLOG 300 UNITS/3 ML VIAL SC PRN ×3 (12:28→21:32)
[2020-05-15] MEDS: Rivaroxaban 10 MG TAB PO SCH (21:21)
[2020-05-15] MEDS: Tamsulosin HCl 0.4 MG CAP PO SCH (21:21)
[2020-05-15] MEDS: Atorvastatin Calcium 20 MG TAB PO SCH (21:21)
[2020-05-15] MEDS: ANAKINRA SC SCH (21:22)
[2020-05-16] MEDS: MEROPENEM 1 GM/50 ML 1 GM in Premix Bag 1 BAG IVPB SCH ×2 (05:20→14:32)
[2020-05-16 05:21] LABS: #Lymphocytes 1.4 thou/uL (1.20-3.40); #Monocytes 0.6 thou/uL (0.11-0.59); #Neutrophils 3.4 thou/uL (1.40-6.50); %Eosinophils 0.8 % (0.0-10.0); %Lymphocytes 26.2 % (21.0-51.0); %Monocytes 10.4 % (0.0-10.0); %Neutrophils 62.6 % (42.0-75.0); Hemoglobin 11.5 g/dL (14.0-18.0); Mean Corpuscular HGB CONC 33.3 g/dL (32.0-36.0); Mean Corpuscular Hemoglobin 29.5 pg (27.0-31.0); Mean Corpuscular Volume 88.5 fL (78.0-98.0); Mean Platelet Volume 8.8 fL (7.4-10.4); Platelet Count 122 thou/uL (130-400); RBC Distribution Width 17.9 % (11.5-14.5); White Blood Cell (WBC) Count 5.5 thou/uL (4.8-10.8)
[2020-05-16 05:41] LABS: Anion Gap 11 mmol/L (10-20); BUN (Urea Nitrogen) 17 mg/dL (8.4-25.7); Calc. Creatinine Clearance 116 mL/min (70-130); Calcium 8.2 mg/dL (7.8-10.44); Carbon Dioxide 28 mmol/L (22-29); Chloride 108 mmol/L (98-107); Estimated GFR-MDRD Greater than 90; Glucose 79 mg/dL (70-105); Sodium 144 mmol/L (136-145)
[2020-05-16 05:52] VITALS: BMI 24.5
--- NOTE | 2020-05-16 06:51 | PDOC.FM ---
- Subjective Subjective: The patient says he feels well. He denies headache, vision changes, chest pain, SOB, nausea and vomiting. He was unable to work with PT yesterday but says he wishes to walk with them today due to generalized weakness. - Objective MAR Reviewed: Yes Vital Signs & Weight: Vital Signs (12 hours) Temp Pulse Resp BP Pulse Ox 05/15/20 20:00 100 05/15/20 19:51 98.3 F 96 20 106/78 100 Weight Weight 70.942 kg I&O: 05/14/20 05/15/20 05/16/20 06:59 06:59 06:59 Intake Total 4718 614 9545 Output Total 6746 590 9964 Balance 10 40 575 Result Diagrams: 05/16/20 05:08 05/16/20 05:08 Phys Exam - Physical Examination Constitutional: NAD HEENT: moist MMs, sclera anicteric Neck: supple, full ROM Respiratory: no wheezing, clear to auscultation bilateral Cardiovascular: RRR, no significant murmur Gastrointestinal: soft, non-tender, positive bowel sounds Musculoskeletal: no edema, pulses present Neurological: non-focal, moves all 4 limbs Psychiatric: normal affect, A&O x 3 Skin: no rash Dx/Plan - Plan Plan: Sepsis, resolved 2/2 UTI Met sepsis criteria in ED due to HR 120, RR 22, UA: + for nitrite, leuk est, WBC, bact, glucose, blood. Hx of urine culture on 04/28/20 that grew klebsiella sensitive only to meropenem. Given azithromycin and ceftriaxone in ED (05/11). Dr. Nickerson, ID, consulted. - Final urine cx: klebsiella. - Bcx: MRSE 1/2 @ 48 hours - Continue meropenem (05/11). Last day today per Dr. Nickerson' recs - Consulted case management for longterm placement coordination. Pending approval from [facility]. DM2 -SSI aggressive, glucose checks ACHS -Continue lantus 50 units in am, humalog 5 TID WM Hypokalemia -K 3.0 this am. K 40mEq ordered Dementia Patient reports history of memory loss and difficulty recalling information. He reports these episodes have increased in frequency over time. During past admission, patient scored MME 20/30. He completed HS. Due to reported waxing/waving recently by family in setting of immunosuppression, opportunistic infections will be ruled out. -Dr. Nickerson consulted, recommended MRI Brain, XL lumbar puncture with CSF studies, cryptococcus, histoplasma, and HSV 1/2 -MRI: no acute intracranial process, probably cystic lesion in L parotid gland -LP: elevated glucose 94, elevated protein 109, normal opening pressure -Negative cryptococcus. 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 Comer. I agree with the History, Examination, Assessment and Plan documented above with any addition or exceptions noted below.
[2020-05-16] MEDS ORDERED: Potassium Chloride 20 MEQ TAB PO SCH (07:00)
[2020-05-16 07:05] VITALS: BP 125/78; TEMP 97.8
[2020-05-16] MEDS: Carvedilol 3.125 MG TAB PO SCH (08:08)
[2020-05-16] MEDS: Ascorbic Acid 500 mg Chewable Tablet PO SCH (08:08)
[2020-05-16] MEDS: predniSONE 20 MG TAB PO SCH (08:08)
[2020-05-16] MEDS: Famotidine 20 MG TAB PO SCH (08:09)
[2020-05-16] MEDS: Ezetimibe 10 MG TAB PO SCH (08:09)
[2020-05-16] MEDS: Alogliptin 25 MG TAB PO SCH (08:09)
[2020-05-16] MEDS: HumaLOG 300 UNITS/3 ML VIAL SC SCH ×3 (08:09→16:32)
[2020-05-16] MEDS: Insulin Glargine 50 UNITS in Pre-Filled Syringe 1 EACH SC SCH (08:09)
[2020-05-16] MEDS: Fludrocortisone Acetate 0.1 MG TAB PO SCH (08:15)
--- NOTE | 2020-05-16 15:28 | PRG ---
DATE OF SERVICE: 05/16/2020 SUBJECTIVE: Mr. Knight is sitting by the bedside, just finished his shower. He was able to walk to the shower. He is oriented. Follows commands. No vomiting. No genitourinary symptoms. No diarrhea. No dyspnea or cough. He has been afebrile throughout the hospital stay. OBJECTIVE: VITAL SIGNS: BP 120/70, heart rate 91, respiratory rate 16, saturating at 100%. GENERAL: Appears in no distress. Oriented. Even has a sense of humor. LUNGS: Symmetric clear breath sounds. HEART: S1 and S2, regular rate. ABDOMEN: Soft. No bladder distention. EXTREMITIES: He has 2 to 3+ edema lower extremities. Pulses 1+ in dorsalis pedis. NEUROLOGIC: He is able to stand up and hold his weight and he is able to dress himself without assistance. LABORATORY DATA: His white cell count is 5.5, hemoglobin 11.5, platelets 122 with 62% neutrophils. Chemistry with sodium 144, potassium 3.0, creatinine 0.67. The last liver profile with a bilirubin 1.3, AST 43, ALT 54. Urinalysis was abnormal as noted. The CSF showed 109 protein, glucose 94, total cells were only 3 which was normal. Histoplasma antigen negative. The cryptococcus antigen was negative. Other assays are pending in the CSF. The patient had a brain MRI which showed no enhancement of parenchyma. No acute infarct. Possibility of normal-pressure hydrocephalus was raised. Neurosurgery evaluated the patient and they recommended outpatient workup with a high-volume lumbar tap. Pre and postprocedural physical therapy evaluations to determine if there is any normal-pressure hydrocephalus, anything was in urgent evaluation, so at this point in time, we are left with this recurrent episodes of infection or episodes of Adult Still disease/rheumatoid arthritis associated fever. This time appears to be Klebsiella pneumonia process, which is quite resistant to antimicrobial therapy. Renal ultrasound did not show any obstruction and the plan was for a total of 7- 8 days of treatment. There was some distention of the urinary bladder and we will go ahead and check his postvoid residual again before we settle on further management, but he is still on meropenem and looks like the family is trying to place him in a usp, which seems to be a little bit drastic for patient who is cognitively intact in the intercritical periods and somewhat independent in the activities of daily living, but looks like they do not have means to care for him when he gets sick and encephalopathic. Ideally, the best place in terms of his future outcomes would be to stay home of course with an aid maybe to support his care in the home setting. Job ID: [id number] ERICK
--- NOTE | 2020-05-18 23:48 | PQF ---
CLINICAL DOCUMENTATION CLARIFICATION FORM: Dear : Itz Ko Date / Time: 05/18/2020 1196 Please exercise your independent, professional judgment in responding to the clarification form. Clinical indicators are provided on the bottom of this form for your review Please check appropriate box(es): UTI please specify if due to or related to (as applicable): [ ] Self-catheterization infection [ x ] Unable to determine etiology [ ] Other diagnosis [ ] Unable to determine Physician Signature: Date/Time: For continuity of documentation, please document condition throughout progress notes and discharge summary. Thank You. To be completed by CDI/Coding staff for physician review: Present Clinical Indicators - Signs / Symptoms / Labs Results and Location in Medical Record [X] BP 121/65, Pulse 104, Resp 20, Temp 98.7 Vital signs 05/11 [X] WBC 10.0, Plt count 136, Neutrophils 71.5, Glucose 175 Laboratory 05/10 [X] Blood Culture: Coagulase Neg Staphylococcus Microbiology 05/10 [X] Urine Culture: Klebsiella PNeumoniae Microbiology 05/10 [X] She states that when she did straight cath, urine had strong odor and thick white discharge H&P p1 05/11 Dr Dey [X] Sepsis due to UTI H&P p4 05/11 Dr Dey Present Risk Factors Results and Location in Medical Record [X] 60 year-old Male H&P p1 05/11 Dr Dey [X] Stills Disease H&P p1 05/11 Dr Dey [X] BPH H&P p2 05/11 Dr Dey [X] HTN H&P p2 05/11 Dr Dey [X] DM H&P p2 05/11 Dr Dey [X] Sepsis H&P p4 05/11 Dr Dey [X] UTI H&P p4 05/11 Dr Dey [X] Dementia Consult Dr Liya Van 05/13 [X] BPH Consult Dr Liya Van 05/13 Present Treatments Results and Location in Medical Record [X] IV Zithromax 500 mg OCT 28 [X] IV Rocephine 2 gm OCT 28 [X] IVF NS 1L OCT 28 [X] Blood Culture Microbiology 05/10 [X] Urine Culture Microbiology 05/10 [X] ID consult Consult Dr Liya Van 05/13 CDS/Import And Export Clerk Signature: Nuris Castro Phone #: [phone] Date/Time: 05/18/2020 8535 This is a permanent part of the Medical Record [facility]
--- NOTE | 2020-05-18 23:49 | PQF ---
CLINICAL DOCUMENTATION CLARIFICATION FORM: Dear : Itz Ko Date / Time: 05/18/2020 2098 Please exercise your independent, professional judgment in responding to the clarification form. Clinical indicators are provided on the bottom of this form for your review Please check appropriate box(es): Encephalopathy: Etiology: [ ] Metabolic [ ] Toxic [ x ] Septic [ ] In the setting of underlying dementia [ ] Unspecified [ ] Other (please specify) [ ] Other diagnosis [ ] Unable to determine Physician Signature: Date/Time: For continuity of documentation, please document condition throughout progress notes and discharge summary. Thank You. To be completed by CDI/Coding staff for physician review: Present Clinical Indicators - Signs / Symptoms / Labs Results and Location in Medical Record [X] BP 121/65, Pulse 104, Resp 20, Temp 98.7 Vital signs 05/11 [X] WBC 10.0, Plt count 136, Neutrophils 71.5, Glucose 175 Laboratory 05/10 [X] Blood Culture: Coagulase Neg Staphylococcus Microbiology 05/10 [X] Urine Culture: Klebsiella PNeumoniae Microbiology 05/10 [X] She states that whr she did straight cath, urine had strong odor and thick white discharge H&P p1 05/11 Dr Dey [X] ROS unobtained due to mental status (poor cooperation) H&P p2 05/11 Dr Dey [X] Sepsis due to UTI H&P p4 05/11 Dr Dey [X] has been clear cut cognitive decline which is more consistent with an encephalopathy than dementia Consult Dr Liya Van 05/13 Present Risk Factors Results and Location in Medical Record [X] 60 year-old Male H&P p1 05/11 Dr Dey [X] Stills Disease H&P p1 05/11 Dr Dey [X] BPH H&P p2 05/11 Dr Dey [X] HTN H&P p2 05/11 Dr Dey [X] DM H&P p2 05/11 Dr Dey [X] CHF H&P p2 05/11 Dr Dey [X] Sepsis H&P p4 05/11 Dr Dey [X] UTI H&P p4 05/11 Dr Dey [X] Dementia Consult Dr Liya Van 05/13 Present Treatments Results and Location in Medical Record [X] IV Zithromax 500 mg MAR 05/10 [X] IV Rocephine 2 gm MAR 05/10 [X] IVF NS 1L OCT 28 [X] Blood Culture Microbiology 05/10 [X] Urine Culture Microbiology 05/10 [X] ID consult Consult Dr Liya Van 05/13 [X] Lumbar puncture Procedure Dr Louis 05/14 CDS/Poker Room Manager Signature: Nuris Csatro Phone #: [phone] Date/Time: 05/18/2020 7587 This is a permanent part of the Medical Record [facility]
== END 2020-05-16 17:37 | DRG 871 ==
LOC: ERS 21:42 → 2NO 05-11 00:37 → T4-B 05-12 20:09
PROVIDERS: ADMIT Family Medicine; ATTEND Family Medicine
PROC: 009U3ZX Drainage of Spinal Canal, Percutaneous Approach, Diagnostic (ICD-10-PCS; principal; 2020-05-14)
PROC: B01BZZZ Fluoroscopy of Spinal Cord (ICD-10-PCS; 2020-05-14)
DX: A41.1 Sepsis due to other specified staphylococcus (principal); G93.41 Metabolic encephalopathy; N39.0 Urinary tract infection, site not specified; I50.22 Chronic systolic (congestive) heart failure; Z16.39 Resistance to other specified antimicrobial drug; Z20.828 Contact with and (suspected) exposure to other viral communicable diseases; M08.20 Juvenile rheumatoid arthritis with systemic onset, unspecified site; I11.0 Hypertensive heart disease with heart failure; E78.5 Hyperlipidemia, unspecified; N40.1 Benign prostatic hyperplasia with lower urinary tract symptoms; R35.0 Frequency of micturition; M06.9 Rheumatoid arthritis, unspecified; B96.1 Klebsiella pneumoniae [K. pneumoniae] as the cause of diseases classified elsewhere; R65.20 Severe sepsis without septic shock; Z86.14 Personal history of Methicillin resistant Staphylococcus aureus infection; Z86.718 Personal history of other venous thrombosis and embolism; Z90.49 Acquired absence of other specified parts of digestive tract; Z98.1 Arthrodesis status; Z79.899 Other long term (current) drug therapy; Z88.1 Allergy status to other antibiotic agents; Z87.440 Personal history of urinary (tract) infections
CPT/HCPCS: 36415; 36416; 51701; 62270; 70553; 71045; 76770; 80048; 80053; 81003; 81015; 82945; 83605; 84157; 84443; 84484; 85025; 87040; 87077; 87086; 87149; 87186; 87385; 87529; 87635; 87899; 89051; 96360; 96365; 96375; A9579; J0456; J0696; J1815; J2185; J3490; J7512; U0003

== ENCOUNTER 2020-05-17 22:32 | Inpatient (IN) | payer MEDICARE ==
[2020-05-18] MEDS ORDERED: Dextrose 5% in Water 1,000 ML IV PRN (02:35)
[2020-05-18] MEDS ORDERED: Ondansetron PF 4 MG/2 ML Vial IVP PRN (02:35)
[2020-05-18] MEDS ORDERED: Ondansetron ODT 4 MG TAB PO PRN (02:35)
[2020-05-18] MEDS ORDERED: Acetaminophen 650 MG Suppository PR PRN (02:35)
[2020-05-18] MEDS ORDERED: Dextrose 50% Abboject 50 ML SYRINGE SLOW IVP PRN (02:35)
[2020-05-18] MEDS ORDERED: HumaLOG 300 UNITS/3 ML VIAL SC PRN (02:50)
[2020-05-18] MEDS ORDERED: Norepinephrine 8 MG/0.9% NS 250 ML IVPB PRN (02:50)
[2020-05-18 04:08] LABS: Lactic Acid 1.4 mmol/L (0.5-2.2)
--- NOTE | 2020-05-18 04:08 | PDOC.FPRHP ---
- History of Present Illness Chief Complaint: AMS History of Present Illness: Pt is a 60yo male with hx of adult still's disease and recent hospitalization who presents with fever and AMS. He was hospitalized from 05/11-05/16 for sepsis 2/2 UTI, treated with meropenam. He was discharged to [facility]. There he was found to be confused and febrile. The rest of the history was unobtainable due to AMS. In the ED his temp was 104F, was hypotensive and hypoxic. He was started on 4L NC. A central line was placed, levophed drip was started. Broad spectrum abx were started. ED Course: Solu-cortef, 2.5L NS, acyclovir, levophed, ketamine, levaquin, acetaminophen, cefepime Right IJ line placed, attempted LP but not completed - Allergies/Adverse Reactions Allergies Allergy/AdvReac Type Severity Reaction Status Date / Time vancomycin Allergy Intermediate Verified 05/18/20 20:01 - Home Medications Medication Instructions Recorded Confirmed Type Atorvastatin Calcium [Lipitor] 40 mg PO HS 10/18/15 05/18/20 History Anakinra [Kineret] 100 mg SQ DAILY 09/01/18 05/18/20 History Ezetimibe [Zetia] 10 mg PO QAM tab 01/03/19 05/18/20 Rx Carvedilol [Coreg] 3.125 mg PO BID #0 tab 03/22/20 05/18/20 Rx Rivaroxaban [Xarelto] 10 mg PO QPM 03/27/20 05/18/20 History Tamsulosin HCl [Flomax] 0.4 mg PO QPM 03/27/20 05/18/20 History predniSONE 35 mg PO QAM 03/27/20 05/18/20 History Famotidine [Pepcid AC] 20 mg PO BID 04/21/20 05/18/20 History Fludrocortisone Acetate [Florinef] 1 tab PO DAILY 04/21/20 05/18/20 History Iron,Carbonyl/Ascorbic Acid [Iron 1 tab PO DAILY 04/21/20 05/18/20 History 100-Vitamin C] Ascorbic Acid [Vitamin C] 500 mg PO DAILY tab 04/24/20 05/18/20 Rx Insulin Detemir [Levemir] 35 unit SQ DAILY 05/11/20 05/18/20 History Methotrexate Sodium/PF 0.4 ml SQ ONE 05/11/20 05/18/20 History [Methotrexate 25 mg/ml Vial] Alogliptin 25 mg PO DAILY tab 05/16/20 05/18/20 Rx HumaLOG [HumaLOG Vial] 5 units SC TID-WM 30 Days #1 vial 05/16/20 05/18/20 Rx Insulin Glargine [Lantus Vial] 50 units SC QAM 30 Days #3 vial 05/16/20 05/18/20 Rx - History PMHx: adult still's disease, HTN, HLD, hx of DVT, adrenal insufficiency, HFrEF, BPH PSHx: cholecystectomy, L shoulder surgery, L knee, C spine fusion FHx: noncontributory Social: no hx of T/A/D use. Most recently was staying at [facility] - Review of Systems ROS unobtainable: due to mental status (limited ROS due to AMS) General: reports: fever/chills Respiratory: denies: cough, shortness of breath Cardiovascular: denies: chest pain Gastrointestinal: denies: nausea, vomiting, diarrhea, abdominal pain Musculoskeletal: denies: pain, tenderness - Vital signs BP: 97/58, HR 103, O2 99% on 4L, T 99.3F - Physical Exam Constitutional: NAD -Constitutional: oriented to person and place, but unsure as to why he was in hospital HEENT: normocephalic and atraumatic, no scleral icterus, grossly normal vision, grossly normal hearing -Neck: right IJ in place Heart: no murmurs/rubs/gallops, pulses present -Heart: tachycardic Lungs: CTAB, no respiratory distress Abdomen: soft, non-tender, bowel sounds present Musculoskeletal: normal structure, normal tone Neurological: no focal deficit Skin: no rash/lesions, no jaundice FMR H&P: Results - Labs Result Diagrams: 05/19/20 04:11 05/19/20 04:11 FMR H&P: A/P - Plan #sepsis, source unknown -T 104F, HR 145, RR 28, WBC 7.5 Bands 15, lactate 3.0 -CXR: no acute findings -recent hospitalization with sepsis 2/2 UTI, finished treatment of meropenam -pending UA and UCx, BCx, attempted to get LP in ED but not successful -hypotensive, central line placed, levophed drip started -broad spectrum abx started in ED: cefepime, levaquin, will wait for UA and possibly switch to meropenam #Encephalopathy -likely due to infection -Brain CT showed ventriculomegaly, this was noted at last admission and recommended outpatient work up #Acute hypoxic resp failure -O2 sats 90% on RA, started on 4L, sats now 100% -CXR as above -wean oxygen as tolerated #hypokalemia -K 3.4 -ordered 40meq to be given in am -BMP am run pending #DM2 -SSI, glucose checks q4h #HFrEF -echo on 02/2020 showed EF 40-45%, grade 1/3 diastolic dysfunction -on IVF for sepsis, monitor closely #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 Just discharged to [facility] on 05/16/20 after hospitalized for sepsis 2/2 multidrug resistant Klebsiella UTI. Denies dysuria, frequency, fever, chills, pain. Last work up he had extensive workup including MRI, LP, HSV, histoplasmosis, cryptococcus which were negative. There was consideration for normal pressure hydrocephalus as his imaging showed tone triculomegaly. Plan was for outpatient workup with pre and post high volume lumbar puncture physical therapy. At [place] ED pt was noted to be hypotensive not responsive to IVF resuscitation therefore right IJ was placed and he was started on levophed. LP was attempted x2, unsuccessful. He received Acyclovir to cover for HSV encephalitis, as well as Cefepime and Levaquin. PE: General: NAD CV: tachycardic, no murmurs Pulm: CTA b/l Abdomen: Nontender Extremities: LE pitting edema A/P: Septic Shock -Hypotensive not responding to IVF. Started on levophed. Repeat LP preformed to eval if seeding took place on recent LP, CSF HSV was neg at last visit. A LP was attempted twice resulting in blood 2x, ER physician start Acyclovir based on these findings. Since CSF HSV was neg on LP from a few days ago will not continue. Order IR guided LP with opening pressure for AM. -Initially Tachycardic and tachypneic with Tmax 104.4. CXR no acute findings. UA was not collected, considering pt recently admitted with multidrug resistant Klebsiella UTI will collect UA and culture. Bld cultures collected. s/p Cefepime and Levaquin. Allergic to Vanc. Will switch to Meropenem if UA c/w infection otherwise can continue Cefepime and Levaquin. Wean levophed as tolerated, MAP>65. Admit to ICU Acute encephalopathy likely 2/2 infection vs normal pressure hydrocephalus -CT brain no acute findings. Shows ventriculomegaly. Outpt workup per neurosurg. Acute hypoxic resp failure -CXR no acute findings, monitor O2 and attempt to wean. I, Deepali Bojorquez, have evaluated this patient and agree with findings/plan as outlined by international student advisor resident. Pertinent changes/additions are listed here. Addendum - Attending - Attending Attestation Date/Time: 05/19/20 5916 I personally evaluated the patient and discussed the management with Dr. Dey early yesterday (Tuesday) morning after arrival to ICU. I agree with the History, Examination, Assessment and Plan documented above with any addition or exceptions noted below. See separate note.
[2020-05-18 04:18] LABS: ALT (SGPT) 60 U/L (8-55); AST (SGOT) 83 U/L (5-34); Albumin 2.6 g/dL (3.5-5.0); Alkaline Phosphatase 79 U/L (40-110); Anion Gap 10 mmol/L (10-20); BUN (Urea Nitrogen) 18 mg/dL (8.4-25.7); Bilirubin, Total 0.4 mg/dL (0.2-1.2); Calc. Creatinine Clearance 106 mL/min (70-130); Calcium 7.4 mg/dL (7.8-10.44); Carbon Dioxide 24 mmol/L (22-29); Chloride 112 mmol/L (98-107); Estimated GFR-MDRD Greater than 90; Globulin 2.2 g/dL (2.4-3.5); Protein, Total 4.8 g/dL (6.0-8.3); Sodium 144 mmol/L (136-145)
[2020-05-18 04:20] LABS: Glucose 32 mg/dL (70-105); Potassium 2.4 mmol/L (3.5-5.1)
[2020-05-18] MEDS: Lactated Ringer's 1,000 ML IV SCH ×2 (04:26→13:54)
[2020-05-18] MEDS ORDERED: Potassium Chloride 20 MEQ TAB PO SCH (04:30)
[2020-05-18] MEDS ORDERED: Potassium Chloride 40 MEQ in Premix Bag 1 BAG IVPB SCH (04:30)
[2020-05-18 04:33] LABS: Bacteria/HPF None Seen HPF (None Seen); Bilirubin Negative (Negative); Blood, Urine 3+ (Negative); Clarity Clear (Clear); Glucose, Urine (Dipstick) Normal (Negative); Ketone, Urine Negative (Negative); Leukocyte Negative Leu/uL (Negative); Nitrite Negative (Negative); Protein, Urine (Dipstick) 30 mg/dL (Neg-Trace); Specific Gravity, Urine 1.009 (1.002-1.036); Squamous Epithelial 0-3 HPF (0-3); Urobilinogen Normal mg/dL (Less than 2)
[2020-05-18] MEDS ORDERED: [UNRECOGNIZED DRUG - OTHER] SC SCH (04:45)
[2020-05-18 04:46] LABS: Urine Culture Reflex Yes Yes
[2020-05-18 05:37] LABS: Anisocytosis SLIGHT = 6-15 cells (100X) (0-5/hpf); Band 43 % (5-11); Elliptocytes SLIGHT = 2-5 cells (100X) (0-1/hpf); Hemoglobin 12.1 g/dL (14.0-18.0); Lymphocytes 13 % (21-51); MDiff Complete? YES; Mean Corpuscular HGB CONC 32.4 g/dL (32.0-36.0); Mean Corpuscular Hemoglobin 29.2 pg (27.0-31.0); Mean Platelet Volume 8.7 fL (7.4-10.4); Metamyelocyte 1 % (0-0); Monocytes 4 % (0-10); Myelocyte 2 % (0-0); Neutrophil 34 % (42-75); Platelet Count 157 thou/uL (130-400); RBC Distribution Width 18.3 % (11.5-14.5); Reactive Lymphocytes 3 % (0-10); Red Blood Cell (RBC) Count 4.16 mill/uL (4.70-6.10); White Blood Cell (WBC) Count 24.6 thou/uL (4.8-10.8)
[2020-05-18] MEDS ORDERED: Acyclovir Sodium 750 MG in Sodium Chloride 0.9% 250 ML 250 ML IVPB SCH (08:00)
[2020-05-18] MEDS ORDERED: Azithromycin 500 MG in Sodium Chloride 0.9% 250 ML 250 ML IVPB SCH (08:00)
[2020-05-18] MEDS: Alogliptin 25 MG TAB PO SCH (09:00)
[2020-05-18] MEDS: Carvedilol 3.125 MG TAB PO SCH ×2 (09:00→21:21)
[2020-05-18] MEDS ORDERED: [UNRECOGNIZED DRUG - OTHER] PO SCH (09:00)
[2020-05-18] MEDS: Ezetimibe 10 MG TAB PO SCH (09:00)
[2020-05-18] MEDS: Ascorbic Acid 500 mg Chewable Tablet PO SCH (09:00)
[2020-05-18] MEDS: Insulin Glargine 50 UNITS in Pre-Filled Syringe 1 EACH SC SCH (09:00)
[2020-05-18] MEDS ORDERED: predniSONE 20 MG TAB PO SCH ×2 (09:00→09:15)
[2020-05-18] MEDS ORDERED: ASCORBIC ACID PO SCH (09:00)
[2020-05-18] MEDS: Famotidine 20 MG TAB PO SCH ×2 (09:00→21:21)
[2020-05-18] MEDS ORDERED: ANAKINRA SC SCH (09:00)
[2020-05-18] MEDS ORDERED: Cefepime 2 GM in Sodium Chloride 0.9% 100 ML IVPB SCH (09:00)
[2020-05-18] MEDS ORDERED: Fludrocortisone Acetate 0.1 MG TAB PO SCH (09:15)
[2020-05-18] MEDS: MEROPENEM 1 GM/50 ML 1 GM in Premix Bag 1 BAG IVPB SCH ×2 (09:16→17:37)
[2020-05-18] MEDS: Acetaminophen 325 MG TAB PO PRN (11:04)
--- NOTE | 2020-05-18 11:39 | PDOC.BPN ---
- Brief Progress Note Date/Time: 05/18/20 4631 I personally evaluated the patient and discussed the management with Dr. Dey early this morning following admission to ICU. H&P remains pending I agree with the History, Examination, Assessment and Plan documented above with any addition or exceptions noted below. Stephani has already responded rapidly to intervention. I am of the opinion that he may have missed his Ankira dose yesterday and may not have had adequate prednisone dosing, leading to Stills disease related fever and hypotension due to adrenal insufficiency. He already almost off pressors and will probably be able to come out of the ICU today. Stress dose steroids given. Empiric antibiotics started. Blood and urine cultures ordered/pending.
--- NOTE | 2020-05-18 11:42 | PDOC.BPN ---
- Brief Progress Note Encounter Date: 05/18/20 Encounter Time: 10:30 Patient seen and discussed with attending Dr. Ko this morning. Mr. Knight is doing much better this morning, is alert and oriented x 3. States he does not remember much of what happened at [facility] ED but does remember arriving to our hospital and thereafter. Upon review of ER records at [facility] it appears patient met sepsis criteria with fever of 103.4F, pulse 128, WBC 7.5 with bands 15%. Patient initially received Acyclovir, Azithromycin, and Cefepime for antibiotic coverage by [facility]. Upon further review of [facility] records the patient recently completed course of Meropenem for a [id number] UTI (resistance included Cefepime). It was decided this morning to cover the patient with Meropenem for now given unknown potential infection. Also was noted that he did not receive Anakinra dose or Florinef dose at the shelter. Did receive Prednisone 35 mg daily. Suspicion that his symptoms are likely due to a Still's Flare due to low steroid dosing vs less likelihood that there is a current infectious process. Will consult Dr. Nickerson for further recommendations, appreciate recs.
[2020-05-18 12:56] LABS: Anion Gap 13 mmol/L (10-20); BUN (Urea Nitrogen) 19 mg/dL (8.4-25.7); Calc. Creatinine Clearance 107 mL/min (70-130); Calcium 7.8 mg/dL (7.8-10.44); Carbon Dioxide 22 mmol/L (22-29); Chloride 111 mmol/L (98-107); Estimated GFR-MDRD Greater than 90; Glucose 183 mg/dL (70-105); Magnesium 1.4 mg/dL (1.6-2.6); Potassium 3.2 mmol/L (3.5-5.1); Sodium 143 mmol/L (136-145)
[2020-05-18] MEDS ORDERED: Potassium Chloride 40 MEQ in Premix Bag 1 BAG IVPB ONE (14:30)
[2020-05-18] MEDS ORDERED: Magnesium 2 GM/50 ML 2 GM in Premix Bag 1 BAG IVPB SCH (14:30)
[2020-05-18] MEDS: Rivaroxaban 10 MG TAB PO SCH (17:37)
[2020-05-18] MEDS: HumaLOG 300 UNITS/3 ML VIAL SC PRN (17:51)
--- NOTE | 2020-05-18 18:57 | PRG ---
DATE OF SERVICE: 05/18/2020 SUBJECTIVE: The patient did not last more than 24 hours at the skilled nursing and they did not give him his anakinra or the prednisone and is readmitted with fever. His altered mental state has improved right away. He right now does not have headaches. He had some back pain, which has resolved. A little bit of cough, but no dyspnea. No abdominal pain. No diarrhea. Voiding without difficulty. He is oriented now. OBJECTIVE: VITAL SIGNS: His temperature has been normal here in the hospital, blood pressure 119/81, heart rate 96, and respiratory rate 27. GENERAL: Awake, alert, oriented. Follows commands. LUNGS: Symmetric air entry. Clear breath sounds. HEART: S1 and S2. Regular rate. ABDOMEN: Soft, not distended. EXTREMITIES: Moves extremities equally a little stiff. No joint inflammatory activity. LABORATORY DATA: White cell count 24.6, hemoglobin 12.1, platelets 157, 34% neutrophils, 42% bands. Sodium 143, creatinine 0.79. CRP 12.57. Urinalysis with 4 to 6 wbc's. Microbiology samples have been submitted and are pending at this time. The previous assays are all negative for opportunistic pathogens in the recent admission and I will see any imaging studies. Currently, anakinra is pending actually. He did receive meropenem. He is on prednisone 60 mg, Xarelto, Flomax. Pending methotrexate as well. ASSESSMENT AND DISCUSSION: Adult Still disease, rheumatoid arthritis. Other infectious processes have not been identified except for the recent urinary tract infection, which was felt to be significant. Evidently, he did not receive his steroids or anakinra in the skilled nursing and most likely explains the decompensation. I do not think he needs a repeat CSF evaluation and just needs to be restarted on his immunosuppressive medications, may consider have Rheumatology take a look at him or while he is in the hospital to see if any adjustment of dosing needs to be considered. Also, continue to monitoring the cultures. His last CT of abdomen was done in February and then had an abdominal ultrasound in April and does not look like he needs repeat. Job ID: [id number]
[2020-05-18] MEDS: Atorvastatin Calcium 20 MG TAB PO SCH (21:21)
[2020-05-18] MEDS: Tamsulosin HCl 0.4 MG CAP PO SCH (21:22)
[2020-05-18] MEDS ORDERED: Budesonide 0.25 MG/2 ML NEB ONE (21:43)
[2020-05-19] MEDS: MEROPENEM 1 GM/50 ML 1 GM in Premix Bag 1 BAG IVPB SCH ×3 (04:06→17:00)
[2020-05-19 05:14] LABS: ALT (SGPT) 95 U/L (8-55); AST (SGOT) 96 U/L (5-34); Albumin 2.4 g/dL (3.5-5.0); Alkaline Phosphatase 82 U/L (40-110); Anion Gap 10 mmol/L (10-20); BUN (Urea Nitrogen) 22 mg/dL (8.4-25.7); Bilirubin, Total 0.5 mg/dL (0.2-1.2); Calc. Creatinine Clearance 101 mL/min (70-130); Calcium 7.8 mg/dL (7.8-10.44); Carbon Dioxide 23 mmol/L (22-29); Chloride 111 mmol/L (98-107); Estimated GFR-MDRD Greater than 90; Globulin 2.1 g/dL (2.4-3.5); Glucose 305 mg/dL (70-105); Potassium 4.1 mmol/L (3.5-5.1); Protein, Total 4.5 g/dL (6.0-8.3); Sodium 140 mmol/L (136-145)
[2020-05-19 05:52] LABS: Band 32 % (5-11); Hemoglobin 9.8 g/dL (14.0-18.0); Lymphocytes 18 % (21-51); MDiff Complete? YES; Mean Corpuscular HGB CONC 32.7 g/dL (32.0-36.0); Mean Corpuscular Hemoglobin 29.5 pg (27.0-31.0); Mean Corpuscular Volume 90.3 fL (78.0-98.0); Mean Platelet Volume 9.5 fL (7.4-10.4); Monocytes 3 % (0-10); Neutrophil 47 % (42-75); Platelet Count 96 thou/uL (130-400); Platelet Morphology Comment Appears Decreased; RBC Distribution Width 18.1 % (11.5-14.5); Red Blood Cell (RBC) Count 3.31 mill/uL (4.70-6.10); White Blood Cell (WBC) Count 13.3 thou/uL (4.8-10.8)
[2020-05-19] MEDS: HumaLOG 300 UNITS/3 ML VIAL SC PRN ×4 (06:21→17:00)
[2020-05-19] MEDS: predniSONE 20 MG TAB PO SCH (08:07)
[2020-05-19] MEDS: Carvedilol 3.125 MG TAB PO SCH ×2 (08:09→21:06)
[2020-05-19] MEDS: Famotidine 20 MG TAB PO SCH ×2 (08:09→21:06)
[2020-05-19] MEDS: Ezetimibe 10 MG TAB PO SCH (08:09)
[2020-05-19] MEDS: Ascorbic Acid 500 mg Chewable Tablet PO SCH (08:09)
[2020-05-19] MEDS: Alogliptin 25 MG TAB PO SCH (08:09)
[2020-05-19] MEDS: Insulin Glargine 50 UNITS in Pre-Filled Syringe 1 EACH SC SCH (08:11)
[2020-05-19 08:24] VITALS: BMI 27.0
[2020-05-19] MEDS: Lactated Ringer's 1,000 ML IV SCH ×4 (10:00→21:08)
[2020-05-19] MEDS: Fludrocortisone Acetate 0.1 MG TAB PO SCH (11:12)
--- NOTE | 2020-05-19 11:44 | PDOC.FM ---
- Subjective Subjective: Patient feeling well this morning, voices no complaints. Goal to get up and walk around room today. - Objective MAR Reviewed: Yes Vital Signs & Weight: Vital Signs (12 hours) Temp Pulse Ox 05/19/20 08:00 98.3 F 100 05/19/20 07:32 100 Weight Weight 78.1 kg Most Recent Monitor Data Heart Rate from ECG 92 NIBP 120/70 NIBP BP-Mean 86 Respiration from ECG 24 SpO2 100 I&O: 05/18/20 05/19/20 05/20/20 06:59 06:59 06:59 Intake Total 503.4 4236 340 Output Total 1050 1975 820 Balance -546.6 2261 -480 Result Diagrams: 05/19/20 04:11 05/19/20 04:11 Phys Exam - Physical Examination Constitutional: NAD HEENT: moist MMs, sclera anicteric Neck: supple, full ROM Respiratory: no wheezing, clear to auscultation bilateral Cardiovascular: RRR, no significant murmur Gastrointestinal: soft, no distention, positive bowel sounds Musculoskeletal: no edema, pulses present Neurological: normal sensation, moves all 4 limbs Lymphatic: no nodes Psychiatric: normal affect Skin: no rash Dx/Plan (1) Adrenal insufficiency Code(s): E27.40 - UNSPECIFIED ADRENOCORTICAL INSUFFICIENCY Status: Acute (2) SIRS (systemic inflammatory response syndrome) Code(s): R65.10 - SIRS OF NON-INFECTIOUS ORIGIN W/O ACUTE ORGAN DYSFUNCTION Status: Acute (3) UTI (urinary tract infection) Status: Acute Qualifiers: Urinary tract infection type: acute cystitis Hematuria presence: without he maturia Qualified Code(s): N30.00 - Acute cystitis without hematuria (4) 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 DISEASE Status: Chronic (5) Diabetes type 2, controlled Code(s): E11.9 - TYPE 2 DIABETES MELLITUS WITHOUT COMPLICATIONS Status: Chronic Qualifiers: Diabetes mellitus group home insulin use: with ferry terminal agent use Diabetes mellitus complication status: with hyperglycemia Qualified Code(s): E11.65 - Type 2 diabetes mellitus with hyperglycemia; Z79.4 - detention (current) use of insulin - Plan Plan: #Adult Still's Disease, acute flare -suspect current hospitalization due to low dosing of steroids, did not receive Anakinra dose or Florinef dose at the long term. Did receive Prednisone 35 mg daily. -will place back on Prednisone 60 mg stress dosing--will need slow taper with decrease 5 mg per week as tolerated -restart home Florinef -continue home Anakinra #SIRS, unknown source -met criteria with fever of 103.4F, pulse 128, WBC 7.5 with bands 15%. -CXR: no acute findings -recent hospitalization with sepsis 2/2 UTI, finished treatment of meropenem -pending UCx, BCx -hypotensive, central line placed, levophed drip started--was discontinued on 05/18 @ 1000 and BP stable since -broad spectrum abx started in ED: cefepime, levaquin--switched to meropenem on 05/18 due to recent urine culture resistance to Cefepime -low supsicion for infection so will just cover with Meropenem #Encephalopathy, resolved -likely due to Still's Flare -Brain CT showed ventriculomegaly, this was noted at last admission and recommended outpatient work up #Acute hypoxic resp failure -O2 sats 90% on RA, started on 4L, sats now 100% on RA this morning -CXR as above #Hypokalemia, resolved -K 3.4 > 4.1 -replete as needed #DM2 -SSI, glucose checks q4h -continue home Lantus #HFrEF -echo on 02/2020 showed EF 40-45%, grade 1/3 diastolic dysfunction -on IVF for sepsis, monitor closely #hx of DVT -continue home med xarelto #HTN -continue home Coreg #HLD -continue home meds Code: Full PCP: Terrance Boyce DVT ppx: xarelto IVF: LR @ 75ml/hr Diet: CC Dispo: admit to inpatient IMCU, will transition out to floor today. Work with PT/OT. Anticipate discharge back to [facility] in next 48 hours once cultures result.
--- NOTE | 2020-05-19 12:51 | PRG ---
DATE OF SERVICE: 05/19/2020 Mr. Knight is a 60-year-old male with a history of Still disease. He was admitted for what appeared to be an almost a shock-like appearance. However, he was given steroids and his anti Still disease medication was resumed and he completely improved in a matter of hours. It was obvious that he likely was suffering from some degree of adrenal suppression, which has been reversed with the use of high-dose steroids. This has happened to him several times in the past when certain medications were unavailable to him at other facilities. We will continue to treat him with higher dosages of prednisone and discharge him in a day or two on an increased dose as well as a very slow taper. Job ID: [id number]
[2020-05-19] MEDS: Rivaroxaban 10 MG TAB PO SCH (17:00)
[2020-05-19] MEDS: Atorvastatin Calcium 20 MG TAB PO SCH (21:06)
[2020-05-19] MEDS: Tamsulosin HCl 0.4 MG CAP PO SCH (21:07)
[2020-05-20] MEDS: MEROPENEM 1 GM/50 ML 1 GM in Premix Bag 1 BAG IVPB SCH ×2 (03:08→11:26)
[2020-05-20 05:15] LABS: #Lymphocytes 2.5 thou/uL (1.20-3.40); #Monocytes 0.5 thou/uL (0.11-0.59); %Basophils 0.1 % (0.0-1.0); %Eosinophils 0.2 % (0.0-10.0); %Lymphocytes 24.6 % (21.0-51.0); %Monocytes 5.1 % (0.0-10.0); Hemoglobin 9.1 g/dL (14.0-18.0); Mean Corpuscular HGB CONC 32.4 g/dL (32.0-36.0); Mean Corpuscular Hemoglobin 29.4 pg (27.0-31.0); Mean Corpuscular Volume 90.8 fL (78.0-98.0); Mean Platelet Volume 9.2 fL (7.4-10.4); Platelet Count 95 thou/uL (130-400); RBC Distribution Width 17.8 % (11.5-14.5); Red Blood Cell (RBC) Count 3.08 mill/uL (4.70-6.10)
[2020-05-20 05:16] LABS: ALT (SGPT) 83 U/L (8-55); AST (SGOT) 51 U/L (5-34); Albumin 2.3 g/dL (3.5-5.0); Alkaline Phosphatase 78 U/L (40-110); Anion Gap 9 mmol/L (10-20); BUN (Urea Nitrogen) 19 mg/dL (8.4-25.7); Bilirubin, Total 0.4 mg/dL (0.2-1.2); Calc. Creatinine Clearance 113 mL/min (70-130); Calcium 7.9 mg/dL (7.8-10.44); Carbon Dioxide 26 mmol/L (22-29); Chloride 111 mmol/L (98-107); Estimated GFR-MDRD Greater than 90; Globulin 2.4 g/dL (2.4-3.5); Glucose 248 mg/dL (70-105); Potassium 3.6 mmol/L (3.5-5.1); Protein, Total 4.7 g/dL (6.0-8.3); Sodium 142 mmol/L (136-145)
[2020-05-20] MEDS: HumaLOG 300 UNITS/3 ML VIAL SC PRN (06:02)
[2020-05-20] MEDS: Lactated Ringer's 1,000 ML IV SCH ×2 (08:15→16:26)
[2020-05-20] MEDS: Famotidine 20 MG TAB PO SCH (09:19)
[2020-05-20] MEDS: Insulin Glargine 50 UNITS in Pre-Filled Syringe 1 EACH SC SCH (09:20)
[2020-05-20] MEDS: predniSONE 20 MG TAB PO SCH (09:20)
[2020-05-20] MEDS: Alogliptin 25 MG TAB PO SCH (09:20)
[2020-05-20] MEDS: Ezetimibe 10 MG TAB PO SCH (09:20)
[2020-05-20] MEDS: Fludrocortisone Acetate 0.1 MG TAB PO SCH (09:20)
[2020-05-20] MEDS: Ascorbic Acid 500 mg Chewable Tablet PO SCH (09:20)
[2020-05-20] MEDS: Carvedilol 3.125 MG TAB PO SCH (09:20)
[2020-05-20] MEDS: Acetaminophen 325 MG TAB PO PRN (09:26)
--- NOTE | 2020-05-20 11:10 | PDOC.FM ---
- Subjective Subjective: Patient sitting up in bedside chair watching TV this morning. States he feels much better and was able to walk around in room yesterday with nursing staff. Voices no complaints this morning. Does stay he feels a little weak overall and wants to keep working with therapy. - Objective MAR Reviewed: Yes Vital Signs & Weight: Vital Signs (12 hours) Temp Pulse Resp BP Pulse Ox 05/20/20 08:07 97.7 F 93 18 140/78 100 05/20/20 03:06 97.9 F 90 16 126/71 99 Weight Weight 79.197 kg Most Recent Monitor Data Heart Rate from ECG 98 NIBP 132/70 NIBP BP-Mean 90 Respiration from ECG 27 SpO2 94 I&O: 05/19/20 05/20/20 05/21/20 06:59 06:59 06:59 Intake Total 4236 2482.5 Output Total 1975 2120 Balance 2261 362.5 Result Diagrams: 05/20/20 03:48 05/20/20 03:48 Phys Exam - Physical Examination Constitutional: NAD HEENT: moist MMs, sclera anicteric Neck: no JVD, supple, full ROM Respiratory: clear to auscultation bilateral Cardiovascular: RRR Gastrointestinal: soft, non-tender, no distention Musculoskeletal: no edema, pulses present Neurological: normal sensation, moves all 4 limbs Psychiatric: normal affect Skin: no rash Dx/Plan (1) Adrenal insufficiency Code(s): E27.40 - UNSPECIFIED ADRENOCORTICAL INSUFFICIENCY Status: Acute (2) SIRS (systemic inflammatory response syndrome) Code(s): R65.10 - SIRS OF NON-INFECTIOUS ORIGIN W/O ACUTE ORGAN DYSFUNCTION Status: Acute (3) UTI (urinary tract infection) Status: Acute Qualifiers: Urinary tract infection type: acute cystitis Hematuria presence: without hematuria Qualified Code(s): N30.00 - Acute cystitis without hematuria (4) 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 DISEASE Status: Chronic (5) Diabetes type 2, controlled Code(s): E11.9 - TYPE 2 DIABETES MELLITUS WITHOUT COMPLICATIONS Status: Chronic Qualifiers: Diabetes mellitus field sales representative insulin use: with mcc use Diabetes mellitus complication status: with hyperglycemia Qualified Code(s): E11.65 - Type 2 diabetes mellitus with hyperglycemia; Z79.4 - poultry debeaker (current) use of insulin - Plan Plan: #Adult Still's Disease, acute flare -suspect current hospitalization due to low dosing of steroids, [facility]. Did receive Prednisone 35 mg daily. -will place back on Prednisone 60 mg stress dosing--will need slow taper with decrease 5 mg per week as tolerated -restart home Florinef -continue home Anakinra #SIRS, unknown source -met criteria with fever of 103.4F, pulse 128, WBC 7.5 with bands 15%. -CXR: no acute findings -recent hospitalization with sepsis 2/2 UTI, finished treatment of meropenem -Blood cultures negative at 48 hours -hypotensive, central line placed, levophed drip started--was discontinued on 05/18 @ 1000 and BP stable since -broad spectrum abx started in ED: cefepime, levaquin--switched to meropenem on 05/18 due to recent urine culture resistance to Cefepime -low suspicion for infection, covered with Meropenem for 48 hours, will discontinue given negative cultures #Encephalopathy, resolved -likely due to Still's Flare -Brain CT showed ventriculomegaly, this was noted at last admission and recommended outpatient work up #Acute hypoxic resp failure, resolved -O2 sats 90% on RA, started on 4L on admission, sats now 100% on RA since 05/19 -CXR as above #Hypokalemia, resolved -K 3.4 > 4.1 -replete as needed #DM2 -SSI, glucose checks q4h -continue home Lantus #HFrEF -echo on 02/2020 showed EF 40-45%, grade 1/3 diastolic dysfunction -on IVF for sepsis, monitor closely #hx of DVT -continue home med xarelto #HTN -continue home Coreg #HLD -continue home meds Code: Full PCP: Terrance Boyce DVT ppx: xarelto IVF: LR @ 75ml/hr Diet: CC Dispo: Stable, admit to inpatient on telemetry unit. Work with PT/OT. Anticipate discharge back to [facility] later today.
[2020-05-20 11:51] VITALS: TEMP 98.4
--- NOTE | 2020-05-20 16:43 | PRG ---
DATE OF SERVICE: 05/20/2020 ADDENDUM: This is an addendum to the note of Dr. Khushi Gallardo. I have examined Mr. Knight and agree with the assessment and plan of Dr. Khushi Gallardo. Job ID: [id number]
[2020-05-20 19:41] VITALS: BP 158/75
--- NOTE | 2020-05-20 21:18 | DIS ---
DATE OF ADMISSION: 05/17/2020 DATE OF DISCHARGE: 05/20/2020 SOAP CHIPPER: Infectious Disease, Dr. Nickerson. PROCEDURES: 1. Chest x-ray on May 17, 2020: No acute pulmonary findings. 2. Chest x-ray repeat on May 17, 2020: Right internal jugular central venous catheter placement. 3. Brain CT on May 17, 2020: No acute intracranial findings. Involutional changes and chronic ischemic white matter changes. Ventriculomegaly. PRIMARY DIAGNOSIS: Adult Still disease, acute flare. SECONDARY DIAGNOSES: 1. Systemic inflammatory response syndrome. 2. Encephalopathy, resolved, likely due to Adult Still's flare. 3. Acute hypoxic respiratory failure, resolved. 4. Hypokalemia, resolved. 5. Type 2 diabetes mellitus. 6. Heart failure with reduced ejection fraction. 7. History of deep venous thrombosis. 8. Hypertension. 9. Hyperlipidemia. DISCHARGE MEDICATIONS: 1. Atorvastatin 40 mg p.o. at h.s. 2. Anakinra 100 mg subcu daily. 3. Ezetimibe 10 mg p.o. daily. 4. Carvedilol 3.125 mg p.o. b.i.d. 5. Xarelto 10 mg p.o. h.s. 6. Tamsulosin 0.4 mg p.o. h.s. 7. Famotidine 20 mg p.o. b.i.d. 8. Fludrocortisone acetate 0.1 mg p.o. daily. 9. Iron 100-vitamin C tablets one tablet p.o. daily. 10. Vitamin C 500 mg p.o. daily. 11. Methotrexate 25 mg/mL, 0.4 mL subcu daily. 12. Alogliptin 25 mg p.o. daily. 13. Humalog 5 units subcu t.i.d. with meals. 14. Lantus 50 units subcu in the morning. 15. Prednisone taper as follows: 60 mg 4 days, then 55 mg 7 days, then 50 mg 7 days, then 45 mg 7 days, then 40 mg 7 days, then 35 mg daily. 16. Tylenol 650 mg p.o. q.4 hours p.r.n. Discontinued medications: None. HISTORY OF PRESENT ILLNESS/HOSPITAL COURSE: The patient is a 60-year-old male who presented to the emergency department on May 18, 2020, with a fever of 103.4 Fahrenheit, and altered mental status. Of note, patient was recently hospitalized from May 11 through May 16 for sepsis secondary to UTI for which he received treatment with meropenem. The patient was discharged at that admission to [facility]. The patient was found in his [facility] room to be confused and a fever, and was brought to the emergency department. In the emergency department, the patient was found to be hypotensive and hypoxic. He was started on 4 L nasal cannula. A central line was placed in the right internal jugular vein, and a Levophed drip was started. Broad-spectrum antibiotics with acyclovir, Levaquin, and cefepime were also given. An LP was attempted, but unsuccessful. The patient was admitted to the IMCU unit for continued monitoring. Upon further review of the patient's medical records, it appears that the patient had missed a dose of his anakinra and did not receive Florinef at the [facility]. The patient was receiving prednisone 35 mg daily, which was likely a low dosing of steroids for him. The patient has a history of Adult Still disease, and was thought that this admission was due to being in a flare due to low steroid dosing. Low suspicion for current infectious process. Dr. Nickerson was consulted for further input. The patient was continued on meropenem only for antibiotic coverage. Ultimately, his cultures resulted negative. Patient's Levophed was able to be discontinued around 10 am on May 18, and he had stable blood pressures for the rest of the duration of admission. The patient's acute encephalopathy resolved after first dose of stress steroids. The patient was also transitioned to room air shortly after his first dose of steroids was given. Patient's clinical condition continued to improve rapidly over the following 2 days. He was discharged back to [facility] in stable condition on the afternoon of May 20, 2020. DISPOSITION: Stable. DISCHARGE INSTRUCTIONS: 1. Location: [facility]. 2. Diet: Diabetic. 3. Activity: As tolerated. 4. Follow up with PCP, Dr. Aiken in 5-7 days. 5. Follow up with floor grinder, Dr. Barney in 14 days. Job ID: [id number]
--- NOTE | 2020-05-21 10:44 | PQF ---
CLINICAL DOCUMENTATION CLARIFICATION FORM: Dear : __Derek Kumar MD__ Date / Time:_05/21/2020 Please exercise your independent, professional judgment in responding to the clarification form. Clinical indicators are provided on the bottom of this form for your review Please check appropriate box(es) to clarify if the following diagnosis has been ruled in our ruled out: Sepsis [ ] Ruled in diagnosis [ ] Continue to treat [ ] Resolved [ ] Ruled out diagnosis [ ] Improving [ ] Cannot rule out diagnosis [ ] Other diagnosis [ ] Unable to determine Physician Signature: Date/Time: For continuity of documentation, please document condition throughout progress notes and discharge summary. Thank You. To be completed by CDI/Coding staff for physician review: Present Clinical Indicators - Signs / Symptoms / Labs Results and Location in Medical Record [x] Sepsis source unkonwn, recent hospitalization with sepsis 2/2 UTI [facility] H&P, 05/17, Itz Ko MD [x] Septic shock-hypotensive not responding to IVF, started on levophed [facility] H&P, 05/17, Itz Ko MD [x] Initially tachycardic and tachypenic with T max 104.4 [facility] H&P, 05/17, Itz Ko MD [x] Systemic inflammatory response syndrome DS, 05/20, Khushi Gallardo DO Present Risk Factors Results and Location in Medical Record [x] Encephalopathy, resolved, likely due to Adult Stills flare DS, 05/20, Khushi Gallardo DO [ x ] Acute hypoxic respiratory failure DS, 05/20, Khushi Gallardo DO Present Treatments Results an[place] Location in Medical Record [x] Zithromax.IV 05/18 CDS/Vessel Slag Worker Signature: Nellie Ramirez Phone #: [phone] Date/Time:_05/20/2020 This is a permanent part of the Medical Record [facility]
== END 2020-05-20 17:45 | DRG 545 ==
LOC: CCU 22:32 → 2NO 05-19 13:40
PROVIDERS: ADMIT Family Medicine; ATTEND Family Medicine
PROC: 05HM33Z Insertion of Infusion Device into Right Internal Jugular Vein, Percutaneous Approach (ICD-10-PCS; principal; 2020-05-17)
PROC: 3E043XZ Introduction of Vasopressor into Central Vein, Percutaneous Approach (ICD-10-PCS; 2020-05-17)
DX: M06.1 Adult-onset Still's disease (principal); J96.01 Acute respiratory failure with hypoxia; R65.10 Systemic inflammatory response syndrome (SIRS) of non-infectious origin without acute organ dysfunction; G93.49 Other encephalopathy; I50.22 Chronic systolic (congestive) heart failure; E27.40 Unspecified adrenocortical insufficiency; E87.6 Hypokalemia; E11.9 Type 2 diabetes mellitus without complications; N40.0 Benign prostatic hyperplasia without lower urinary tract symptoms; E78.5 Hyperlipidemia, unspecified; I95.9 Hypotension, unspecified; T38.0X5A Adverse effect of glucocorticoids and synthetic analogues, initial encounter; M06.9 Rheumatoid arthritis, unspecified; I11.0 Hypertensive heart disease with heart failure; Z91.14 Patient's other noncompliance with medication regimen; Z86.718 Personal history of other venous thrombosis and embolism; Z79.01 Long term (current) use of anticoagulants; Z87.440 Personal history of urinary (tract) infections; Z88.1 Allergy status to other antibiotic agents; Z90.49 Acquired absence of other specified parts of digestive tract; Z98.1 Arthrodesis status
CPT/HCPCS: 36416; 80053; 81001; 83605; 83735; 84145; 85025; 85652; 86140; J1815; J2185; J3475; J3480; J7512; J7626

== ENCOUNTER 2020-05-23 04:20 | Inpatient (IN) | payer MEDICARE ==
[2020-05-23] MEDS ORDERED: Sodium Chloride 0.9% 1,000 ML IV SCH (07:00)
[2020-05-23] MEDS ORDERED: Ondansetron ODT 4 MG TAB SL PRN (07:00)
[2020-05-23] MEDS ORDERED: Acetaminophen 325 MG TAB PO PRN (07:00)
[2020-05-23] MEDS ORDERED: Ondansetron PF 4 MG/2 ML Vial IVP PRN (07:00)
[2020-05-23] MEDS ORDERED: Acetaminophen 650 MG Suppository PR PRN (07:24)
[2020-05-23] MEDS ORDERED: Electrolyte Replacement Protoc 1 EACH EACH IVPB PRN (07:28)
[2020-05-23] MEDS ORDERED: VASOPRESSIN IV PRN ×2 (07:28→15:12)
[2020-05-23] MEDS ORDERED: SODIUM CHLORIDE 0.9% IV PRN ×2 (07:28→15:12)
[2020-05-23] MEDS ORDERED: Ventilator Sedation Protocol 1 EACH FS SCH (07:30)
[2020-05-23] MEDS ORDERED: Electrolyte Replacement Protocol FS PRN (07:38)
[2020-05-23] MEDS ORDERED: Norepinephrine 8 MG/0.9% NS 250 ML ONE (07:38)
[2020-05-23 07:50] LABS: Actual Bicarbonate (HCO3a) 18.6 mEq/L (22-28); Base Excess (BEa) -5.7 mEq/L (-2.0 to +3.0); CO2 Tension 31.9 mmHg (35.0-45.0); Calcium, Ionized (arterial) 0.94 mmol/L (1.12-1.30); Carboxyhemoglobin (COHb) 0.3 gm% (0.0-3.0); Hemoglobin (Hb) 10.2 g/dL (14.0-18.0); O2 Tension (PaO2), arterial 63.9 mmHg (> 80.0); Potassium - ABG Lab 2.82 mmol/L (3.70-5.30); pH, Arterial 7.38 (7.35-7.45)
[2020-05-23] MEDS ORDERED: fentaNYL Citrate/PF 2,000 MCG in Sodium Chloride 0.9% 60 ML IV SCH (08:15)
[2020-05-23] MEDS ORDERED: Lorazepam 2 MG/ML VIAL SLOW IVP PRN (08:15)
[2020-05-23] MEDS ORDERED: Propofol 1,000 MG/100 ML VIAL IV PRN (08:15)
[2020-05-23] MEDS ORDERED: Morphine 2 MG/ML VIAL SLOW IVP PRN (08:15)
[2020-05-23] MEDS ORDERED: Propofol BOLUS 1,000 MG/100 ML VIAL IV PRN (08:15)
[2020-05-23] MEDS ORDERED: DISCONTINUE PREVIOUS NARCOTIC PAIN MEDICATIONS AND BENZODIAZEPINES FS SCH (08:15)
[2020-05-23] MEDS ORDERED: Fentanyl BOLUS 250 ML IVPB PRN (08:15)
[2020-05-23] MEDS: Famotidine/PF 20 mg/2ml Vial SLOW IVP SCH ×2 (08:28→19:44)
[2020-05-23] MEDS: Fludrocortisone Acetate 0.1 MG TAB PER TUBE SCH (08:38)
[2020-05-23] MEDS: Linezolid 600 MG in Premix Bag 1 BAG IVPB SCH ×2 (08:38→19:44)
[2020-05-23] MEDS: Micafungin 100 MG in Sodium Chloride 0.9% 100 ML IVPB SCH (08:39)
[2020-05-23] MEDS: Meropenem 2 GM in Sodium Chloride 0.9% 100 ML IVPB SCH ×2 (08:39→18:26)
[2020-05-23] MEDS: Sodium Chloride 0.9% 1,000 ML IV SCH ×2 (08:40→17:39)
--- NOTE | 2020-05-23 08:42 | CON ---
DATE OF CONSULTATION: 05/23/2020 TIME SPENT: 35 minutes of critical care time. HISTORY OF PRESENT ILLNESS: Mr. Knight is a 60-year-old male, who is well known to me. He had just been discharged from the hospital after a stay for sepsis. He was apparently at the nursing facility. He was taken to the [facility] with low blood pressure. It was deemed necessary to intubate him. During intubation, he aspirated and had a 3-minute period of asystole before return of spontaneous circulation. He is currently intubated on mechanical ventilation. He was severely hypotensive and is now on vasopressin and Levophed drip. Most recently, he was in the hospital with Klebsiella and MRSA sepsis. PAST MEDICAL HISTORY: 1. Still's disease. 2. Chronic adrenal insufficiency. 3. Hypertension. 4. Diabetes mellitus. 5. Cardiomyopathy. 6. Cholecystectomy. 7. Shoulder surgery. 8. Knee surgery. 9. C-spine surgery. SOCIAL HISTORY: Nonsmoker. Does not consume alcohol. FAMILY MEDICAL HISTORY: Unremarkable. MEDICATIONS: Prior to admission, his last discharge summary indicates he was on; 1. Atorvastatin 40 mg daily. 2. Anakinra 100 mg subcutaneously daily. 3. Ezetimibe 10 mg daily. 4. Carvedilol 3.125 mg b.i.d. 5. Xarelto 10 mg daily. 6. Tamsulosin 0.4 mg daily. 7. Famotidine 20 mg daily. 8. Fludrocortisone 0.1 mg daily. 9. Iron 100 mg combined with vitamin C daily. 10. Vitamin C 500 mg daily. 11. Methotrexate 25 mg/mL 0.4 mL subcu daily. 12. Alogliptin 25 mg daily. 13. Humalog insulin 5 units subcu t.i.d. with meals. 14. Lantus insulin 50 units every morning. 15. He was on prednisone taper probably 60 mg. REVIEW OF SYSTEMS: Cannot be obtained as he is currently on mechanical ventilation. PHYSICAL EXAMINATION: VITAL SIGNS: Pulse 111, blood pressure 94/66, O2 saturation 98%, respiratory rate 20, I did see a recorded temperature of 103 from the outside facility. NEUROLOGICAL: He will open his eyes to stimulation. He has oral endotracheal tube in place. NECK: No adenopathy or JVD. LUNGS: Fairly clear anteriorly. CARDIOVASCULAR: S1 and S2. Tachycardic. ABDOMEN: Soft, slightly distended. LUNG: Andrade clear. EXTREMITIES: No clubbing, cyanosis, or edema. LABORATORY DATA: White blood cell count 7.3, hematocrit 37.5, and platelet count 157. He had 23% bands. PH was 7.29, PO2 of 244, pCO2 of 42. Sodium 143, potassium 2.9, chloride 108, CO2 of 26, BUN 9, creatinine 0.9, glucose 79, lactate 11, AST 41, ALT 54, alkaline phosphatase 123. BNP 204. Urinalysis demonstrates some glucose and some protein, insignificant white blood cells. IMAGING DATA: Chest x-ray demonstrates endotracheal tube in good position. He has fairly clear lung andrade. Normal heart size. ASSESSMENT: 1. Severe hypotension secondary to either septic or cardiogenic shock. 2. Severe lactic acidosis. 3. History of reduced EF 40% to 45%. 4. Recent hospital stay. 5. 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 6. History of adrenal insufficiency. PLAN: 1. Usually Mr. Styles' situation, he has to be supported for a couple of days with vasopressors, high dose steroids, and fludrocortisone because he was recently in the hospital with Klebsiella and MRSA sepsis. We will cover him with meropenem and linezolid, also add micafungin as he is at risk for fungal etiology. 2. Agree with Infectious Disease consultation. 3. Pepcid for GI prophylaxis. 4. He was fully anticoagulated during the last admission, I need to research why that was. Job ID: [id number]
--- NOTE | 2020-05-23 08:59 | PDOC.FPRHP ---
- History of Present Illness Chief Complaint: AMS, fever History of Present Illness: Mr. Knight presented to [facility] w/ his typical symptoms of fever and altered mental status just 3 days after being discharged to [facility]. He was hypotensive and worked up for sepsis. His history of Adult Still's disease often complicates his clinical picture. In the ED he received 4L of normal saline. He then vomited and aspirated, prompting the ED physician to rapidly intubate w/ etomidate and succinylcholine. Patient then lost pulse and went into asystole; he received 3 minutes of CPR. ROSC was achieved after 1 dose of epi and 2 amps of bicarb were given. Patient arrived intubated to our CCU w/ levophed at 30, vasopressin at 0.04, and saline w/ potassium infusing. He received vancomycin, zosyn, and stress dose of methylprednisolone of 1 g. - Allergies/Adverse Reactions Allergies Allergy/AdvReac Type Severity Reaction Status Date / Time vancomycin Allergy Intermediate Verified 05/18/20 20:01 - Home Medications Medication Instructions Recorded Confirmed Type Atorvastatin Calcium [Lipitor] 40 mg PO HS 10/18/15 05/18/20 History Anakinra [Kineret] 100 mg SQ DAILY 09/01/18 05/18/20 History Ezetimibe [Zetia] 10 mg PO QAM tab 01/03/19 05/18/20 Rx Carvedilol [Coreg] 3.125 mg PO BID #0 tab 03/22/20 05/18/20 Rx Rivaroxaban [Xarelto] 10 mg PO QPM 03/27/20 05/18/20 History Tamsulosin HCl [Flomax] 0.4 mg PO QPM 03/27/20 05/18/20 History Famotidine [Pepcid AC] 20 mg PO BID 04/21/20 05/18/20 History Fludrocortisone Acetate [Florinef] 1 tab PO DAILY 04/21/20 05/18/20 History Iron,Carbonyl/Ascorbic Acid [Iron 1 tab PO DAILY 04/21/20 05/18/20 History 100-Vitamin C] Ascorbic Acid [Vitamin C] 500 mg PO DAILY tab 04/24/20 05/18/20 Rx Methotrexate Sodium/PF 0.4 ml SQ ONE 05/11/20 05/18/20 History [Methotrexate 25 mg/ml Vial] Alogliptin 25 mg PO DAILY tab 05/16/20 05/18/20 Rx HumaLOG [HumaLOG Vial] 5 units SC TID-WM 30 Days #1 vial 05/16/20 05/18/20 Rx Insulin Glargine [Lantus Vial] 50 units SC QAM 30 Days #3 vial 05/16/20 05/18/20 Rx Acetaminophen [Tylenol Regular 650 mg PO Q4H PRN tab 05/20/20 Rx Strength] predniSONE 20 mg PO QAM-WM #60 tab 05/20/20 Rx predniSONE 60 mg PO QAM-WM 4 Days #12 tab 05/20/20 Rx - History PMHx: adult still's disease, HTN, HLD, hx of DVT, adrenal insufficiency, HFrEF, BPH PSHx: cholecystectomy, L shoulder surgery, L knee, C spine fusion FHx: noncontributory Social: no hx of T/A/D use. Most recently was staying at [facility] - Review of Systems ROS unobtainable: due to endotracheal tube - Vital signs BP: 86/46 HR: 115 RR: 18 Tmax: 100.3 F here Pox: 100% on Ventilator Vent settings: SIMV, RR 18, TV 450 mL, Pressure support 10, PEEP 5, FiO2 50%. Wt: 78 kg - Physical Exam Constitutional: NAD (GCS 7T (2E-4M-1V)) HEENT: normocephalic and atraumatic, PERRLA, conjunctiva clear Neck: supple, trachea midline Heart: RRR, normal S1/S2, no murmurs/rubs/gallops, other (2+ pitting edema above ankles bilaterally) Lungs: CTAB, no wheezing Abdomen: soft, non-tender, other (mild distension) Musculoskeletal: normal structure Skin: other (yellow purulent discharge from urethral meatus) Heme/Lymphatic: no unusual bruising or bleeding FMR H&P: Results - Radiology Interpretation Chest x-ray Status: image reviewed by me, report reviewed by me (no grossly abnormal findings) FMR H&P: A/P - Plan 60 yo M, bounceback from previous admission, here for: Neuro: GCS 7T Acute encephalopathy - wean sedation as able - monitor mental status HEENT: - will consult speech when extubated due to aspiration Resp: Aspiration secondary to vomiting - intubated - wean O2 as able - Pulm Dr. Styles consulted. Appreciate recs. CV: Hypotension s/p ROSC Hx of HTN, HLD, and HFrEF - continue pressors - was aggressively fluid resuscitated - continue maintenance fluids - last ECHO 02/2020: EF 40-45%, grade 1 of 3 diastolic dysfunction Endo: Adult Still's disease - continue stress dose of hydrocortisone - continue home fludrocortisone T2DM - glucose checks q6h - mild SSI - glucagon/D50 if hypoglycemic Renal/Electrolytes/: Possible UTI - urethral discharge culture. Meropenem started. Hypokalemia - replete as needed BPH - hold tamsulosin as pt is hypotensive. Has dobbins in. Heme/ID: Septic shock versus exacerbation of Still's disease - cultures at outside ED pending - urethral discharge culture. Had dobbins on previous admission so may have new urinary infection versus recurrent UTI. Hx of klebsiella resistant to most antibiotics on last admission. - empiric meropenem due to history of resistant klebsiella. Discussed w/ Dr. Styles who added linezolid to cover for gram positives and micafungin due to patient's immune susceptibility to fungal infections - Dr. Nickerson consulted for infectious disease. Appreciate recs. - ordered fungal blood cultures - also ordered GC/C on urine History of DVT in R popliteal vein diagnosed on 02/28/2020 - was on home xarelto of 10mg daily - will continue therapeutic lovenox as patient compliance with medication is a concern and another DVT/PE would only add to his complex problems. Code: FULL VTE: therapeutic lovenox GI PPx: famotidine BID IVF: NS @ 150mL/hr Lines: R femoral line, 3 PIVs (1 in LAC, 1 RAC, 1 R forearm), Dobbins, ET tube, OG tube Disposition/LOS: Admitted to ICU. Expected LOS > 48 hours. Case mgmt consulted to help w/ transport back to residential when patient is ready.
[2020-05-23] MEDS ORDERED: Enoxaparin Sodium 40 MG/0.4 ML SYRINGE SC SCH ×2 (09:00→10:00)
[2020-05-23] MEDS ORDERED: Dextrose 5% in Water 1,000 ML IV PRN (09:30)
[2020-05-23] MEDS ORDERED: Dextrose 50% Abboject 50 ML SYRINGE SLOW IVP SCH (09:30)
[2020-05-23] MEDS: Norepinephrine 8 MG/0.9% NS 250 ML IVPB PRN ×2 (09:56→17:24)
[2020-05-23] MEDS ORDERED: FLU VACC QS2020-21(6MOS UP)/PF 60 MCG/0.5 ML SYRINGE IM ONE (10:00)
[2020-05-23] MEDS: Hydrocortisone Sod Succ/PF 100 mg/2 ml Vial IVP SCH ×2 (11:17→17:35)
--- NOTE | 2020-05-23 11:36 | PDOC.BPN ---
- Brief Progress Note Encounter Date: 05/23/20 Called RN of patient at [facility]. She states patient received all meds as prescribed on discharge with the exception of Anakinra for his Still's disease. He received his PM meds last night prior to being brought to ER. They were having insurance issues with the Anakinra. Otherwise, patient was compliant and taking all of his meds as prescribed.
--- NOTE | 2020-05-23 11:54 | HP ---
I have examined the patient and discussed the case with Dr. Preciado. I agree with her assessment and plan. HISTORY OF PRESENT ILLNESS: Briefly, Mr. Knight had presented to the [place] ED for fever, altered mental status. He was noted to be hypotensive and possibly septic. He had a cardiac arrest and was subsequently intubated and transferred to our institution. PHYSICAL EXAMINATION: VITAL SIGNS: Here, his current blood pressure is 90/50, on pressors, his heart rate is 115, respirations 18, T-max is 100.3. EARS, NOSE, THROAT: No erythema or exudate. NECK: Supple. CARDIAC: Heart rhythm regular. No gallop or murmur. LUNGS: Clear. No rales or wheezes. ABDOMEN: Flat, soft. ASSESSMENT: 1. Septic versus cardiogenic shock. 2. History of intermediate ejection fraction. 3. Heart failure. 4. Still's disease. 5. History of adrenal insufficiency. 6. Lactic acidosis. PLAN: Already on pressors, fluids, and antibiotics. Job ID: [id number]
[2020-05-23 12:27] LABS: Potassium 3.6 mmol/L (3.5-5.1)
[2020-05-23] MEDS ORDERED: Magnesium Sulfate 4 GM in Sodium Chloride 0.9% 250 ML 250 ML IVPB SCH (12:30)
[2020-05-23 14:39] LABS: ALV-art Gradient 252.725 mmHg (0-20)
[2020-05-23 15:37] LABS: Chloride 110 mmol/L (98-107); Potassium 3.6 mmol/L (3.5-5.1); Sodium 143 mmol/L (136-145)
[2020-05-23 15:38] LABS: Calcium 6.4 mg/dL (7.8-10.44); Glucose 212 mg/dL (70-105)
[2020-05-23 15:40] LABS: Anion Gap 20 mmol/L (10-20); Carbon Dioxide 17 mmol/L (22-29)
[2020-05-23 15:42] LABS: Calc. Creatinine Clearance 63 mL/min (70-130); Estimated GFR-MDRD 64
[2020-05-23 15:43] LABS: BUN (Urea Nitrogen) 14 mg/dL (8.4-25.7)
[2020-05-23 15:44] LABS: Magnesium 1.3 mg/dL (1.6-2.6)
[2020-05-23] MEDS: HumaLOG 300 UNITS/3 ML VIAL SC PRN (18:27)
[2020-05-23] MEDS: Enoxaparin Sodium 80 MG/0.8 ML SYRINGE SC SCH (19:44)
[2020-05-24] MEDS: Hydrocortisone Sod Succ/PF 100 mg/2 ml Vial IVP SCH ×5 (00:03→22:49)
[2020-05-24] MEDS: HumaLOG 300 UNITS/3 ML VIAL SC PRN ×2 (00:11→18:55)
[2020-05-24] MEDS: Meropenem 2 GM in Sodium Chloride 0.9% 100 ML IVPB SCH ×3 (01:05→16:55)
[2020-05-24] MEDS: Norepinephrine 8 MG/0.9% NS 250 ML IVPB PRN (02:36)
[2020-05-24] MEDS: Sodium Chloride 0.9% 1,000 ML IV SCH ×2 (02:47→12:46)
--- NOTE | 2020-05-24 04:52 | PDOC.FM ---
- Subjective Subjective: Per nursing, pt did well overnight, waking up occasionally and following commands. Poor urine output and still requiring pressors. - Objective MAR Reviewed: Yes Vital Signs & Weight: Vital Signs (12 hours) Temp Pulse Resp BP Pulse Ox 05/24/20 04:00 99.5 F 20 05/24/20 02:36 92 91/65 05/24/20 02:00 18 05/24/20 00:26 95 89/66 L 05/24/20 00:00 98.0 F 18 05/23/20 22:00 24 H 05/23/20 21:42 94 100/72 05/23/20 20:00 98.7 F 24 H 100 05/23/20 18:00 27 H 05/23/20 17:58 99 100/73 05/23/20 17:00 99.8 F H Weight Admit Weight 77.9 kg Weight 77.9 kg Most Recent Monitor Data Heart Rate from ECG 96 NIBP 97/66 NIBP BP-Mean 76 Respiration from ECG 14 SpO2 100 I&O: 05/22/20 05/23/20 05/24/20 06:59 06:59 06:59 Intake Total 2696 Output Total 490 Balance 2206 Result Diagrams: 05/24/20 04:10 05/24/20 04:10 Phys Exam - Physical Examination Sleeping but arrousable ET tube in place Neck: no JVD Coarse breath sounds Cardiovascular: RRR, no significant murmur Gastrointestinal: soft, non-tender, no distention, positive bowel sounds Musculoskeletal: pulses present, edema present (BLE) Neurological: moves all 4 limbs Skin: cap refill <2 seconds Dx/Plan - Plan Plan: 60 yo M, bounceback from previous admission, here for: Neuro: GCS [id number] Acute encephalopathy - wean sedation as able - monitor mental status HEENT: - will consult speech when extubated due to aspiration Resp: Aspiration secondary to vomiting - intubated - wean O2 as able - Pulm Dr. Styles consulted. Appreciate recs. CV: Hypotension s/p ROSC Hx of HTN, HLD, and HFrEF - continue pressors - was aggressively fluid resuscitated - continue maintenance fluids - last ECHO 02/2020: EF 40-45%, grade 1 of 3 diastolic dysfunction Endo: Adult Still's disease - continue stress dose of hydrocortisone - continue home fludrocortisone T2DM - glucose checks q6h - mild SSI - glucagon/D50 if hypoglycemic Renal/Electrolytes/: Possible UTI - urethral discharge culture. Meropenem started. -Hypokalemia, resolved -Hypomagnesemia, replacing BPH - hold tamsulosin as pt is hypotensive. Has napier in. Heme/ID: Septic shock versus exacerbation of Still's disease - cultures at outside ED pending - urethral discharge culture. Had napier on previous admission so may have new urinary infection versus recurrent UTI. Hx of klebsiella resistant to most antibiotics on last admission. - empiric meropenem due to history of resistant klebsiella. Discussed w/ Dr. Styles who added linezolid to cover for gram positives and micafungin due to patient's immune susceptibility to fungal infections - Dr. Nickerson consulted for infectious disease. Appreciate recs. - ordered fungal blood cultures - also ordered GC/C on urine History of DVT in R popliteal vein diagnosed on 02/28/2020 - was on home xarelto of 10mg daily - will continue therapeutic lovenox as patient compliance with medication is a concern and another DVT/PE would only add to his complex problems. Code: FULL VTE: therapeutic lovenox GI PPx: PPI IVF: NS @ 150mL/hr Drips: Levophed 20, Vasopressin 0.04 Vent settings: SIMV 18 breaths, TV 450, PS/PEEP 10/5, FIO2 40% Lines: R femoral line, 3 PIVs (1 in LAC, 1 RAC, 1 R forearm), Napier, ET tube, OG tube
[2020-05-24 05:14] LABS: ALT (SGPT) 2265 U/L (8-55); AST (SGOT) 2804 U/L (5-34); Albumin 2.1 g/dL (3.5-5.0); Alkaline Phosphatase 149 U/L (40-110); Anion Gap 21 mmol/L (10-20); BUN (Urea Nitrogen) 27 mg/dL (8.4-25.7); Bilirubin, Total 3.1 mg/dL (0.2-1.2); Calc. Creatinine Clearance 37 mL/min (70-130); Calcium 6.2 mg/dL (7.8-10.44); Carbon Dioxide 16 mmol/L (22-29); Chloride 110 mmol/L (98-107); Estimated GFR-MDRD 34; Globulin 2.8 g/dL (2.4-3.5); Glucose 209 mg/dL (70-105); Potassium 4.5 mmol/L (3.5-5.1); Protein, Total 4.9 g/dL (6.0-8.3); Sodium 142 mmol/L (136-145)
[2020-05-24 05:39] LABS: Band 46 % (5-11); Hemoglobin 10.6 g/dL (14.0-18.0); Lymphocytes 8 % (21-51); MDiff Complete? YES; Mean Corpuscular HGB CONC 31.2 g/dL (32.0-36.0); Mean Corpuscular Hemoglobin 28.7 pg (27.0-31.0); Mean Platelet Volume 10.7 fL (7.4-10.4); Metamyelocyte 5 % (0-0); Monocytes 4 % (0-10); Neutrophil 37 % (42-75); Platelet Count 101 thou/uL (130-400); Platelet Morphology Comment Appears Decreased; RBC Morphology Normal; Red Blood Cell (RBC) Count 3.68 mill/uL (4.70-6.10); White Blood Cell (WBC) Count 19.1 thou/uL (4.8-10.8)
[2020-05-24 06:40] LABS: Actual Bicarbonate (HCO3a) 14.2 mEq/L (22-28); Base Excess (BEa) -9.6 mEq/L (-2.0 to +3.0); Calcium, Ionized (arterial) 0.89 mmol/L (1.12-1.30); Carboxyhemoglobin (COHb) 0.3 gm% (0.0-3.0); Hemoglobin (Hb) 11.2 g/dL (14.0-18.0); Potassium - ABG Lab 4.53 mmol/L (3.70-5.30); pH, Arterial 7.37 (7.35-7.45)
[2020-05-24 06:42] LABS: ALV-art Gradient 142.325 mmHg (0-20); CO2 Tension 25.5 mmHg (35.0-45.0); Puncture Site RRA
--- NOTE | 2020-05-24 06:59 | CON ---
DATE OF CONSULTATION: 05/23/2020 REASON FOR CONSULTATION: Sepsis. HISTORY: A 60-year-old, well known to me from multiple prior admissions with a history of type 2 diabetes; prior C-spine fusion; adult Still's disease; rheumatoid arthritis, on anakinra, prednisone, and methotrexate who has had multiple readmissions for what appears to be a decompensation of his underlying inflammatory diatheses, usually presenting with sepsis with a very prompt improvement every time he gets to the hospital. He has been transferred to a longterm and unfortunately every time he goes to the longterm, the anakinra is not administered because obviously it is a very expensive product and longterm has had issues with insurance company covering for it. This last time, it was again the same pattern where he gets admitted, he immediately improves when he gets the full treatment in the hospital and then goes back to the longterm and I documented with the nurse there that he did not receive any of his doses of anakinra when he was transferred there, had been there for 3 days approximately and according to her own report, he was doing just fine until the day of admission when he was found with a temperature of 104 with profuse diaphoresis and altered mental state, the usual presentation. They could not get a pulse oximetry on him. He was tachycardic. He was transferred to the [place] ER and there he apparently aspirated, had to be intubated and transferred over to [facility] where he is in the ICU. He is currently sedated. PAST MEDICAL HISTORY: Includes type 2 diabetes, adult Still's disease, rheumatoid arthritis, UTIs, cholecystectomy, shoulder repair, neck fusion, knee arthroscopy, multiple readmissions for what is presumed to be secondary to his uncontrolled inflammatory illness due to interruption of his biologic product anakinra. SOCIAL HISTORY: He had been living with family, but now is transferred to a longterm. Never smoker. FAMILY HISTORY: Coronary artery disease, type 2 diabetes. ALLERGIES: VANCOMYCIN, PROBABLY NOT TRUE ALLERGY, BUT RED MAN SYNDROME. CURRENT MEDICATION LIST: Includes; 1. Lovenox 80 b.i.d. 2. Pepcid. 3. Fentanyl. 4. Fludrocortisone. 5. Solu-Cortef. 6. Linezolid. 7. Meropenem. 8. Methotrexate. PHYSICAL EXAMINATION: VITAL SIGNS: T-max 100.3, BP currently is 100/75, heart rate 99, O2 sats 100%. His FiO2 is 40, PEEP of 5. SKIN: Shows a Napier catheter. Urine output 322 today thus far. He has a peripheral IV access. No areas of skin breakdown. HEENT: His pupils are constricted. Sclerae white. Orotracheal intubation. LUNGS: Symmetric clear breath sounds. HEART: S1 and S2. Regular rate without murmurs. ABDOMEN: Not distended, soft. No ascites. No bladder distention. EXTREMITIES: He has 2+ edema of lower extremities. Could not test any of the extremities for mobility. NEUROLOGIC: His reflexes are absent. No clonus. LABORATORY DATA: Sodium 144, creatinine 0.96, potassium 3.6, and CO2 is 26. Lactic acid 11, uric acid 3.4. Hemoglobin A1c 10.9, AST 41, ALT 54, bilirubin 0.8. The last ferritin is from February, it was 15,978. LDH 396 from December. CK was 45, troponin 0.011, and CRP was not repeated, the last one was 12. BNP was 204, albumin 2.9, globulin 3.3. TSH, last one was 1.29. He had a CSF evaluation in April, which showed some elevation in protein and the opportunistic pathogen workup was negative last time including CMV, histoplasma, cryptococcus antigen, Pneumocystis. QuantiFERON was actually indeterminate. VZV DNA PCR was negative. We have 2 sets of blood cultures from 05/17, no growth. More recent sets are pending. Urinalysis this time with 0 to 3 wbc's, protein of 30. IMAGING DATA: We have a chest x-ray with appropriate position of lines and tubes. Last venogram was from February and it showed deep vein thrombosis in the right popliteal vein. At the longterm, he had been on Xarelto because of deep vein thrombosis. ASSESSMENT: Adult Still's disease/rheumatoid arthritis, recurrent episodes of what appears to be sepsis like presentation, but actually represents interruption of the anti-inflammatory biological treatments every time he goes to the longterm. This time, again, the same thing happened where the longterm did not have the medication. The medication anakinra was not administered to the patient since he was discharged from the hospital and after a couple days of stability, he immediately has a recrudescence of inflammatory process with sepsis like presentation. He goes to the emergency room and then ends up with complications from his state with aspiration and respiratory failure. Evidently, we will have to continue broad-spectrum coverage until cultures are resulted and then deescalate according to results. Thromboembolism appears to be less likely since he had been on Xarelto. Hopefully, he did not sustain any neurological injury. And this time around, we need to verify that he will have the full complement of his anti-inflammatory treatment before he is transferred to the longterm assuming there are no other complicating factors identified in the ensuing days. Job ID: [id number]
[2020-05-24] MEDS ORDERED: DC Sedation Protocol FS ONE (07:47)
[2020-05-24] MEDS: Pantoprazole 40 MG VIAL IVP SCH (07:52)
[2020-05-24] MEDS: Enoxaparin Sodium 80 MG/0.8 ML SYRINGE SC SCH ×2 (07:52→19:43)
[2020-05-24] MEDS: Fludrocortisone Acetate 0.1 MG TAB PER TUBE SCH (07:54)
--- NOTE | 2020-05-24 08:18 | PRG ---
DATE OF SERVICE: 05/24/2020 A 35 minutes of critical care time. SUBJECTIVE: Mr. Knight remains intubated on mechanical ventilation. He will wake up and follow commands. He has been weaned off the vasopressin, but continues on Levophed. OBJECTIVE: VITAL SIGNS: His temperature is 99.5, pulse 87, blood pressure 94/66, and O2 saturation 100%. HEENT: Unremarkable. NECK: No adenopathy or JVD. LUNGS: Clear to auscultation. CARDIAC: S1 and S2. Regular. ABDOMEN: Soft and nontender to palpation. EXTREMITIES: No clubbing or cyanosis. Trace edema throughout. LABORATORY DATA: ABG; pH of 7.37, pCO2 of 25, pO2 of 111, SIMV rate of 18, tidal volume 450, PEEP 5, pressure support 10, and FiO2 of 40%. White blood cell count 19, hematocrit 33.8, and platelet count 101. Sodium 142, potassium 4.5, chloride 110, CO2 of 16, BUN 27, creatinine 2.3, glucose 209, AST 2804, and ALT 2265. Micro data show no growth to-date. ASSESSMENT: 1. Adult onset Still disease. 2. Systemic inflammatory response syndrome. 3. Acute respiratory failure requiring mechanical ventilation. 4. History of adrenal insufficiency. PLAN: 1. Continue steroids and fludrocortisone. 2. Wean to extubate. 3. Continue empiric antibiotics, but discontinue if culture results are negative -this is what to be checked through [facility]. 4. Hopefully wean off vasopressors in the next day or two. Job ID: [id number]
[2020-05-24] MEDS: Linezolid 600 MG in Premix Bag 1 BAG IVPB SCH ×2 (08:43→19:42)
[2020-05-24] MEDS: Micafungin 100 MG in Sodium Chloride 0.9% 100 ML IVPB SCH (08:45)
[2020-05-24] MEDS ORDERED: Prevnar 13-Val Conj/PF 0.5 ML SYRINGE IM ONE (10:00)
--- NOTE | 2020-05-24 13:23 | RAD ---
PORTABLE CHEST: HISTORY: Respiratory distress. COMPARISON: 05/23/2020 exam. FINDINGS: Endotracheal and NG tubes are in satisfactory position. Heart size is enlarged. Lungs are clear of any infiltrative process. No signs of failure. IMPRESSION: Essentially stable chest. POS: OFF
[2020-05-24] MEDS: NPH, Human Insulin Isophane 300 UNIT/3 ML VIAL SC SCH ×2 (15:07→19:42)
[2020-05-25] MEDS: Meropenem 2 GM in Sodium Chloride 0.9% 100 ML IVPB SCH ×3 (01:12→16:54)
[2020-05-25 04:31] LABS: Band 39 % (5-11); Hemoglobin 9.3 g/dL (14.0-18.0); Hypochromia SLIGHT = 6-15 cells (100X) (0-5/hpf); MDiff Complete? YES; Mean Corpuscular HGB CONC 32.4 g/dL (32.0-36.0); Mean Corpuscular Hemoglobin 29.1 pg (27.0-31.0); Mean Corpuscular Volume 89.6 fL (78.0-98.0); Mean Platelet Volume 11.4 fL (7.4-10.4); Monocytes 6 % (0-10); Neutrophil 55 % (42-75); Platelet Count 76 thou/uL (130-400); Platelet Morphology Comment Appears Decreased; RBC Distribution Width 18.3 % (11.5-14.5); White Blood Cell (WBC) Count 13.4 thou/uL (4.8-10.8)
[2020-05-25 04:32] LABS: ALT (SGPT) 2123 U/L (8-55); AST (SGOT) 1045 U/L (5-34); Albumin 2.9 g/dL (3.5-5.0); Alkaline Phosphatase 126 U/L (40-110); Anion Gap 19 mmol/L (10-20); BUN (Urea Nitrogen) 43 mg/dL (8.4-25.7); Bilirubin, Total 3.3 mg/dL (0.2-1.2); Calc. Creatinine Clearance 27 mL/min (70-130); Calcium 6.1 mg/dL (7.8-10.44); Carbon Dioxide 18 mmol/L (22-29); Chloride 110 mmol/L (98-107); Estimated GFR-MDRD 24; Globulin 2.5 g/dL (2.4-3.5); Glucose 105 mg/dL (70-105); Potassium 4.3 mmol/L (3.5-5.1); Protein, Total 5.4 g/dL (6.0-8.3); Sodium 143 mmol/L (136-145)
--- NOTE | 2020-05-25 04:54 | PDOC.FM ---
- Subjective Subjective: Pt did fair overnight. He has remained extubated and continues to have very low urine output. - Objective MAR Reviewed: Yes Vital Signs & Weight: Vital Signs (12 hours) Temp Pulse Ox 05/25/20 04:00 97.8 F 05/25/20 02:13 100 05/25/20 00:00 97.7 F 05/24/20 20:00 97.8 F 100 Weight Admit Weight 77.9 kg Weight 77.9 kg Most Recent Monitor Data Heart Rate from ECG 95 NIBP 90/65 NIBP BP-Mean 73 Respiration from ECG 27 SpO2 100 I&O: 05/23/20 05/24/20 05/25/20 06:59 06:59 06:59 Intake Total 5079.4 2 Output Total 490 43 Balance 4589.4 2008 Result Diagrams: 05/25/20 03:50 05/25/20 03:50 Phys Exam - Physical Examination Constitutional: NAD (Resting, follows commands) HEENT: PERRLA Diffuse rhonchi, worse on the right Cardiovascular: RRR, no significant murmur Gastrointestinal: soft, non-tender, no distention, positive bowel sounds Musculoskeletal: pulses present, edema present (2+ pitting edema to knee) Neurological: moves all 4 limbs Psychiatric: normal affect Skin: no rash, normal turgor Dx/Plan - Plan Plan: 60 yo M, bounceback from previous admission, here for: Neuro: GCS 15 Acute encephalopathy, resolved - Off sedation HEENT: - will consult speech when extubated due to aspiration Resp: Aspiration secondary to vomiting - intubated - wean O2 as able - Pulm Dr. Styles consulted. Appreciate recs. CV: Hypotension s/p ROSC Hx of HTN, HLD, and HFrEF - Now off pressors - Adequate fluid resuscitation - continue maintenance fluids - last ECHO 02/2020: EF 40-45%, grade 1 of 3 diastolic dysfunction Endo: Adult Still's disease - continue stress dose of hydrocortisone - continue home fludrocortisone - Continue home anakinra T2DM - glucose checks q6h - mild SSI - glucagon/D50 if hypoglycemic - BID NPH Renal/Electrolytes/: Possible UTI - urethral discharge culture. Meropenem started. -Hypokalemia, resolved -Hypomagnesemia, replacing - CARL 2/2 hypoprofusion, will work to improve bp and circulation BPH - hold tamsulosin as pt is hypotensive. Has dobbins in. Heme/ID: Septic shock versus exacerbation of Still's disease - cultures at outside ED pending, NGTD - urethral discharge culture. Had dobbins on previous admission so may have new urinary infection versus recurrent UTI. Hx of klebsiella resistant to most antibiotics on last admission. - empiric meropenem due to history of resistant klebsiella. Discussed w/ Dr. Styles who added linezolid to cover for gram positives and micafungin due to patient's immune susceptibility to fungal infections - Dr. Nickerson consulted for infectious disease. Appreciate recs. - ordered fungal blood cultures - also ordered GC/C on urine History of DVT in R popliteal vein diagnosed on 02/28/2020 - was on home xarelto of 10mg daily - will continue therapeutic lovenox as patient compliance with medication is a concern and another DVT/PE would only add to his complex problems. Code: FULL VTE: therapeutic lovenox GI PPx: PPI IVF: NS @ 50, Albumin at 100ml/hr q8hr Drips: Levophed 5 Lines: R femoral line, 3 PIVs (1 in LAC, 1 RAC, 1 R forearm), Dobbins Addendum - Attending - Attending Attestation Date/Time: 05/25/20 0708 I personally evaluated the patient and discussed the management with Dr. Schafer. I agree with the History, Examination, Assessment and Plan documented above with any addition or exceptions noted below. Patient s/p extubation. He reports breathing well and has no complaints. He continues to be anuric, currently on pressors still as well as albumin infusions due to severe pitting edema. Will consult Nephro today, suspect ATN as a component of his initial shock presentation due to not receiving his Anakinra. Will work to get that started today. Continue other chronic meds as well as antibiotics and steroids until cultures result negative. ID on board as well.
[2020-05-25] MEDS: Hydrocortisone Sod Succ/PF 100 mg/2 ml Vial IVP SCH ×3 (05:00→17:41)
[2020-05-25] MEDS: Norepinephrine 8 MG/0.9% NS 250 ML IVPB PRN (08:23)
[2020-05-25] MEDS: Linezolid 600 MG in Premix Bag 1 BAG IVPB SCH (08:41)
[2020-05-25] MEDS: Pantoprazole 40 MG VIAL IVP SCH (08:52)
[2020-05-25] MEDS: Sodium Chloride 0.9% 1,000 ML IV SCH (08:55)
[2020-05-25] MEDS ORDERED: NPH, Human Insulin Isophane 300 UNIT/3 ML VIAL SC SCH ×2 (09:00→21:00)
[2020-05-25] MEDS: Micafungin 100 MG in Sodium Chloride 0.9% 100 ML IVPB SCH (09:24)
[2020-05-25] MEDS: Fludrocortisone Acetate 0.1 MG TAB PER TUBE SCH (09:24)
[2020-05-25] MEDS ORDERED: Furosemide 40 MG/4 ML VIAL SLOW IVP SCH (09:30)
[2020-05-25] MEDS ORDERED: Furosemide 100 MG/10 ML VIAL SLOW IVP SCH (09:45)
[2020-05-25] MEDS: NPH, Human Insulin Isophane 300 UNIT/3 ML VIAL SC SCH ×2 (09:50→21:58)
--- NOTE | 2020-05-25 10:47 | PRG ---
DATE OF SERVICE: 05/25/2020 SUBJECTIVE: He was extubated yesterday. He is in good spirits. He had no acute complaints. OBJECTIVE: VITAL SIGNS: On exam, his temperature is 97.6, pulse 93, blood pressure 95/67, and O2 saturation 94%. HEENT: Unremarkable except for cushingoid appearance. NECK: No JVD. LUNGS: Clear. CARDIAC: S1 and S2. Regular. ABDOMEN: Soft. EXTREMITIES: Edematous. LABORATORY DATA: White blood cell count 13.4, hematocrit 28.6, and platelet count 76, with 55% neutrophils, 39% bands. PH of 7.37, pCO2 of 25, and pO2 of 111. Sodium 143, potassium 4.3, chloride 110, CO2 of 18, BUN 43, creatinine 3.2, glucose 105, AST 1045, and ALT 2123. ASSESSMENT: 1. Adult onset Still's disease with exacerbation of his systemic inflammatory response from that. 2. Status post acute respiratory failure, requiring mechanical ventilation. 3. History of adrenal insufficiency. 4. Shock liver along with acute renal insufficiency secondary to hypotension at the time of admission. PLAN: 1. fluid overload, so we will stop the Zyvox since cultures are negative and also stop the albumin. 2. Lower NPH insulin since he was hypoglycemic this morning. 3. Wean off Levophed as tolerated. 4. One dose Lasix. 5. Consider Nephrology consultation. Job ID: [id number]
[2020-05-25] MEDS ORDERED: Enoxaparin Sodium 80 MG/0.8 ML SYRINGE SC SCH (21:00)
[2020-05-26] MEDS: Hydrocortisone Sod Succ/PF 100 mg/2 ml Vial IVP SCH ×4 (02:30→18:20)
[2020-05-26] MEDS: Meropenem 2 GM in Sodium Chloride 0.9% 100 ML IVPB SCH (02:30)
[2020-05-26 04:34] LABS: Band 21 % (5-11); Hemoglobin 8.1 g/dL (14.0-18.0); Lymphocytes 11 % (21-51); MDiff Complete? YES; Mean Corpuscular HGB CONC 32.7 g/dL (32.0-36.0); Mean Corpuscular Hemoglobin 29.1 pg (27.0-31.0); Mean Corpuscular Volume 89.2 fL (78.0-98.0); Mean Platelet Volume 8.2 fL (7.4-10.4); Metamyelocyte 1 % (0-0); Neutrophil 67 % (42-75); Platelet Count 46 thou/uL (130-400); Platelet Morphology Comment Appears Decreased; RBC Distribution Width 18.3 % (11.5-14.5); Red Blood Cell (RBC) Count 2.77 mill/uL (4.70-6.10); White Blood Cell (WBC) Count 6.9 thou/uL (4.8-10.8)
[2020-05-26 04:37] LABS: ALT (SGPT) 1410 U/L (8-55); AST (SGOT) 373 U/L (5-34); Albumin 2.8 g/dL (3.5-5.0); Alkaline Phosphatase 180 U/L (40-110); Anion Gap 21 mmol/L (10-20); BUN (Urea Nitrogen) 59 mg/dL (8.4-25.7); Bilirubin, Total 3.8 mg/dL (0.2-1.2); Calc. Creatinine Clearance 22 mL/min (70-130); Carbon Dioxide 16 mmol/L (22-29); Chloride 110 mmol/L (98-107); Estimated GFR-MDRD 19; Globulin 2.3 g/dL (2.4-3.5); Glucose 188 mg/dL (70-105); Potassium 4.8 mmol/L (3.5-5.1); Protein, Total 5.1 g/dL (6.0-8.3); Sodium 142 mmol/L (136-145)
[2020-05-26 04:43] LABS: Calcium 5.9 mg/dL (7.8-10.44)
[2020-05-26] MEDS: HumaLOG 300 UNITS/3 ML VIAL SC PRN ×4 (06:25→20:57)
--- NOTE | 2020-05-26 06:31 | PDOC.FM ---
- Subjective Subjective: Pt is doing well this morning. He is hungry and asking for food. Spoke with the nurse. They discontinued his Levophed around 1 pm yesterday afternoon. His urine output picked up overnight and he has been producing 100 cc every 2H for the the last 4 hours. He still has swelling of his hands and feet, but he is moving them well this evening. - Objective MAR Reviewed: Yes Vital Signs & Weight: Vital Signs (12 hours) Temp Pulse Ox 05/25/20 20:00 97.6 F 100 Weight Admit Weight 77.9 kg Weight 77.9 kg Most Recent Monitor Data Heart Rate from ECG 91 NIBP 113/64 NIBP BP-Mean 80 Respiration from ECG 25 SpO2 100 I&O: 05/24/20 05/25/20 05/26/20 06:59 06:59 06:59 Intake Total 5079.4 3261.8 2921 Output Total 490 43 667 Balance 4589.4 3218.8 2254 Result Diagrams: 05/26/20 03:50 05/26/20 03:50 Phys Exam - Physical Examination Constitutional: NAD HEENT: PERRLA, sclera anicteric MM dry Neck: no nodes, supple diminished breath sounds in lung bases Cardiovascular: RRR, no significant murmur Gastrointestinal: soft, non-tender, positive bowel sounds Musculoskeletal: pulses present edema 2+ in hadns and feet Neurological: moves all 4 limbs Lymphatic: no nodes Psychiatric: A&O x 3 Skin: no rash, normal turgor Dx/Plan (1) Acute kidney failure Status: Acute (2) Adrenal insufficiency Code(s): E27.40 - UNSPECIFIED ADRENOCORTICAL INSUFFICIENCY Status: Acute (3) HFrEF (heart failure with reduced ejection fraction) Code(s): I50.20 - UNSPECIFIED SYSTOLIC (CONGESTIVE) HEART FAILURE Status: Acute (4) Sepsis associated hypotension Code(s): A41.9 - SEPSIS, UNSPECIFIED ORGANISM; I95.9 - HYPOTENSION, UNSPECIFIED Status: Acute (5) 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 DISEASE Status: Chronic (6) Diabetes type 2, controlled Code(s): E11.9 - TYPE 2 DIABETES MELLITUS WITHOUT COMPLICATIONS Status: Chronic Qualifiers: Diabetes mellitus fci insulin use: with fci use Diabetes mellitus complication status: with hyperglycemia Qualified Code(s): E11.65 - Type 2 diabetes mellitus with hyperglycemia; Z79.4 - senior living (current) use of insulin (7) H/O deep venous thrombosis Code(s): Z86.718 - PERSONAL HISTORY OF OTHER VENOUS THROMBOSIS AND EMBOLISM Status: Chronic - Plan Plan: 60 yo M, bounceback from previous admission, here for: Neuro: GCS 15 Acute encephalopathy, resolved HEENT: Aspiration s/p Extubation Resp: Aspiration 2/2 to vomiting - extubated - wean O2 as able - Pulm Dr. Styles consulted. Appreciate recs. CV: Hypotension, resolved s/p ROSC Hx of HTN, HLD, and HFrEF - Levophed d/c yesterday - Hold fluids for now due to 10 kg weight gain - last ECHO 02/2020: EF 40-45%, grade 1 of 3 diastolic dysfunction Endo: Adult Still's disease - Hydrocortisone decreased from 100 to 50 today - Continue home fludrocortisone - Continue home anakinra T2DM - Glucose checks q6h - Mild SSI - Glucagon/D50 if hypoglycemic - BID NPH Renal/Electrolytes/: Possible UTI -Urethral discharge culture. Meropenem started. Linezolid and Micafungin discontinued. CARL 2/2 hypoprofusion, will work to improve bp and circulation, consider Nephrology consult Electrolytes -Hypocalcemia, Replacing, checking mag, phos, & PTH -Hypokalemia, Resolved -Hypomagnesemia, resolved BPH - Hold tamsulosin as pt is hypotensive. Has dobbins in. Heme/ID: Septic shock versus exacerbation of Still's disease - cultures at outside ED pending, NGTD - Urethral discharge culture: Presumptive Shandra albicans. Had dobbins on previous admission so may have new urinary infection versus recurrent UTI. Hx of klebsiella resistant to most antibiotics on last admission. - Empiric meropenem due to history of resistant klebsiella. Dr. Styles discontinued linezolid and micafungin due to lack of growth. - Dr. Nickerson consulted for infectious disease. Appreciate recs. - ordered fungal blood cultures - also ordered GC/C on urine History of DVT in R popliteal vein diagnosed on 02/28/2020 - was on home xarelto of 10mg daily, but not recommended with GFR < 30 - Therapeutic lovenox discontinued due to low platelets Code: FULL VTE: SCD, will need to restart something for the DVT GI PPx: PPI IVF: SL Drips: None Lines: R femoral line, 2 PIVs (1 LAC, 1 RAC), Dobbins Diet: CC 1800 with nectar thickened liquids and ground Dispo: Will transfer to [facility] today and get Nephrology recommendations for CARL. Will continue to wean O2 and stress dose steroids. Speech to evaluate today. Will get CM & Physical therapy on board. Will consider options for DVT treatment. Addendum - Attending - Attending Attestation Date/Time: 05/26/20 0256 I personally evaluated the patient and discussed the management with Dr. Boyce. I agree with the History, Examination, Assessment and Plan documented above with any addition or exceptions noted below.
[2020-05-26 07:04] LABS: Magnesium 2.3 mg/dL (1.6-2.6); Phosphorus 7.3 mg/dL (2.3-4.7)
[2020-05-26] MEDS ORDERED: Calcium Gluconate 4.6 MEQ in Sodium Chloride 0.9% 100 ML IVPB SCH (07:15)
--- NOTE | 2020-05-26 08:07 | PRG ---
DATE OF SERVICE: 05/26/2020 SUBJECTIVE: He was weaned off his vasopressors yesterday. He had no acute complaints this morning. OBJECTIVE: VITAL SIGNS: His temperature is 97.6, pulse 91, blood pressure 113/64, and O2 saturation 100%. His intake for the last 24 has been 2921, output 667, weighs up to 195 pounds. HEENT: Unremarkable. NECK: No JVD. LUNGS: Clear. CARDIAC: S1 and S2. Regular. ABDOMEN: Soft. EXTREMITIES: Edematous. LABORATORY DATA: Sodium 142, potassium 4.8, chloride 110, CO2 of 16, BUN 59, creatinine 3.9, glucose 188, and calcium 5.9. Parathyroid hormone levels 241. White blood cell count 6.9, hematocrit 24.7, and platelet count 46. ASSESSMENT: 1. Adult onset Still disease. 2. Adrenal insufficiency. 3. Status post septic shock having status post distributive shock. 4. Status post acute respiratory failure requiring mechanical ventilation. 5. Medical noncompliance. 6. Hypocalcemia. 7. Compensatory increase in PTH secondary to hypocalcemia. PLAN: 1. The patient can be transferred over to [facility]. I would hold his Lovenox because of thrombocytopenia. 2. We will begin to wean his hydrocortisone. 3. Continue fludrocortisone. 4. Agree with Nephrology consultation. 5. Advance diet. Job ID: [id number]
[2020-05-26] MEDS: Pantoprazole 40 MG VIAL IVP SCH ×2 (09:58→10:01)
[2020-05-26] MEDS: Sodium Chloride 0.9% (PF) 10 ML VIAL FS PRN (09:58)
[2020-05-26] MEDS: Fludrocortisone Acetate 0.1 MG TAB PER TUBE SCH (10:01)
[2020-05-26] MEDS: NPH, Human Insulin Isophane 300 UNIT/3 ML VIAL SC SCH ×2 (10:02→20:52)
--- NOTE | 2020-05-26 12:09 | CON ---
DATE OF CONSULTATION: REASON FOR CONSULTATION: Elevated creatinine. HISTORY OF PRESENTING ILLNESS: This is a very pleasant 60-year-old gentleman, who presented to the hospital on May 23 with altered mental status and fever. The patient was admitted for septic shock. The patient had a creatinine of 1.3 on admission, which increased to 3.9 today progressively. The patient has remained on pressors. The patient is off pressors now. PAST MEDICAL HISTORY: Sickle cell disease, hypertension, DVT, adrenal insufficiency, congestive heart failure, BPH, cholecystectomy, left shoulder surgery, left knee surgery, C-spine surgery. FAMILY HISTORY: Negative for ESRD. ALLERGIES: REVIEWED. MEDICATIONS: Home medications, list reviewed. Hospital medications, list reviewed. REVIEW OF SYSTEMS: A 15-point review of system was performed, negative except for positives noted above. HEENT: Eyes intact, no diplopia. Ears: No hearing loss or earache. Nose: No discharge or bleeding. Chest: No cough or phlegm. Abdomen: No nausea or vomiting. Genitourinary: No hematuria. No Napier catheter. Musculoskeletal: No low back pain. No joint swelling or pain. Neurological: No syncope. No seizures. Skin: No complaints of rash or itching. Psychiatric: No depression. Constitutional: No weight loss or loss of appetite. PHYSICAL EXAMINATION: General: The patient is awake, alert. Vital Signs: Pulse 86, breathing 16, blood pressure 122/73. HEENT: Head normocephalic and atraumatic. Eyes intact, no ulcers. Nose intact, no ulcers. Ears intact, no ulcers. Neck: Supple. No JVD. Chest: Symmetrical and clear. Cardiovascular: Shows S1 and S2, no rub, no murmur. Gastrointestinal: Abdomen is soft, bowel sounds positive. Extremities: Show no edema or ulcers. Skin: Shows no rash or petechiae. Musculoskeletal: Shows no joint swelling or stiffness. Genitourinary: Shows no Napier or CVA tenderness. Neurologic: Motor intact. Cranial nerves intact. LABORATORY DATA: Labs show potassium 4.8, creatinine 3.9. ASSESSMENT AND PLAN: Acute kidney injury with chronic kidney disease, nonoliguric. No indication for dialysis. Most likely due to cardiorenal syndrome. Metabolic acidosis, start a bicarbonate drip and recheck labs. Hypertension, stable. Anemia, stable. Medication based on GFR appropriate. No indication for dialysis. Job ID: [id number]
[2020-05-26] MEDS: Meropenem 2 GM, Admixture Fee 1 EACH in Sodium Chloride 0.9% 100 ML IVPB SCH (14:03)
--- NOTE | 2020-05-26 14:42 | PDOC.PALCO ---
Palliative Care Consult - Consult Details Requesting Physician: Dr Ball Reason for Consult: goals of care - Pertinent HPI Mr Knight is well known to Palliative Care services. He had been in the home setting, but secondary to fragile state and need for improved medication compliance with his Anakinra/Kineret (immunosuppressive therapy) he subsequently was placed in a usp setting at [facility] with hopes of medication compliance. In the past his family/sister and daughter had gotten his medications. There is some confusion related to exactly how the gap in medication occurred, however the usp did not administer for several days with subsequent admission to the hospital secondary to sepsis like symptoms. He had only been discharged for 3 days prior to presenting again to the emergency room in .. He Was found to be hypotensive at the usp, and was sent to the emergency room, where he vomited and aspirated requiring rapid intubation with asystole and three minutes of CPR before regaining ROSC, transferred to [facility] for higher level of care. Currently extubated on room air. - Pertinent PMH Adult Stills disease, HTN, HDL, HFrEF, - Social History Smoking Status: Never smoker Smoking: no tobacco exposure Drug Use History: none Living Situation: usp resident - Medications MAR Reviewed: Yes - Allergies Allergies/Adverse Reactions: Allergies Allergy/AdvReac Type Severity Reaction Status Date / Time vancomycin Allergy Intermediate Verified 05/18/20 20:01 - Subjective Appears slightly more confused that prior hospital stay. Currently off vasopressors. Creatinine increased today. - ROS Constitutional: alert, weakness ENT: dry mouth, other (Sore throat, most likely reltaed to intubation) Respiratory: other (Denies shortness of breath) Cardiology: other (Denies palpitations) Gastrointestinal: other (Denies nausea, vomiting) Musculoskeletal: arthritis/arthralgias - Objective Vital Signs: Vital Signs - Most Recent Temp Pulse Resp BP Pulse Ox 97.6 F 86 19 106/73 100 05/25/20 20:00 05/26/20 11:00 05/24/20 08:00 05/26/20 11:00 05/26/20 11:00 Palliative Performance Scale: 40 - Physical Exam Constitutional: confusion, ill appearing HEENT: EOMI, moist MMs Respiratory: clear to auscultation bilateral, no rhonchi, no wheezing, unlabored breathing Cardiovascular: RRR Gastrointestinal: soft, non-tender, positive bowel sounds Genitourinary: dobbins catheter Neurology: moves all 4 limbs, no focal deficits Skin: cap refill <2 seconds, no lesions, no rash Psychiatric: flat affect - Problem List (1) Acute kidney injury Code(s): N17.9 - ACUTE KIDNEY FAILURE, UNSPECIFIED Current Visit: No Status: Acute (2) Adrenal insufficiency Code(s): E27.40 - UNSPECIFIED ADRENOCORTICAL INSUFFICIENCY Current Visit: No Status: Acute (3) Palliative care encounter Code(s): Z51.5 - ENCOUNTER FOR PALLIATIVE CARE Current Visit: No Status: Acute (4) 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 DISEASE Current Visit: No Status: Chronic (5) Sepsis Code(s): A41.9 - SEPSIS, UNSPECIFIED ORGANISM Current Visit: No Status: Resolved - Plan/Recommendations Plan: Attempted to contact [facility] patient daughter. Concern is in relation to shelter and understanding of patient fragile state and importance of compliance with Anakinra. Patient with continued decline in functional status. Confusion today and answers are more delayed than in past, however may improve as time between CPR increases. Will attempt to communicated with [facility] and see if family can continue to provide the usp with Anakinra, consideration in the past to forgo hospice was so that Mr Knight could continue to receive Anakinra and see his specialist. Will revisit Goal of Care with patient and family. In the recent past family still obtained the medication secondary to difficulty in getting and to provide a seamless continuation of receiving Anakinra. [50] minutes spent on this encounter with >50% of the time in counseling and coordination of care. Thank you for this very appropriate consult.
[2020-05-26] MEDS: Apixaban 5 MG TAB PO SCH (20:52)
[2020-05-27] MEDS: Hydrocortisone Sod Succ/PF 100 mg/2 ml Vial IVP SCH ×4 (01:58→18:15)
[2020-05-27] MEDS: Meropenem 2 GM, Admixture Fee 1 EACH in Sodium Chloride 0.9% 100 ML IVPB SCH ×2 (01:58→16:23)
[2020-05-27 04:45] LABS: ALT (SGPT) 878 U/L (8-55); AST (SGOT) 145 U/L (5-34); Albumin 2.7 g/dL (3.5-5.0); Alkaline Phosphatase 214 U/L (40-110); Anion Gap 21 mmol/L (10-20); BUN (Urea Nitrogen) 77 mg/dL (8.4-25.7); Bilirubin, Total 2.3 mg/dL (0.2-1.2); Calc. Creatinine Clearance 22 mL/min (70-130); Calcium 6.1 mg/dL (7.8-10.44); Carbon Dioxide 16 mmol/L (22-29); Chloride 109 mmol/L (98-107); Estimated GFR-MDRD 16; Globulin 2.5 g/dL (2.4-3.5); Glucose 132 mg/dL (70-105); Potassium 4.7 mmol/L (3.5-5.1); Protein, Total 5.2 g/dL (6.0-8.3); Sodium 141 mmol/L (136-145)
[2020-05-27 04:58] LABS: Hemoglobin 8.1 g/dL (14.0-18.0); Mean Corpuscular HGB CONC 32.6 g/dL (32.0-36.0); Mean Corpuscular Hemoglobin 28.6 pg (27.0-31.0); Mean Corpuscular Volume 87.9 fL (78.0-98.0); Mean Platelet Volume 8.3 fL (7.4-10.4); Platelet Count 39 thou/uL (130-400); RBC Distribution Width 18.4 % (11.5-14.5); Red Blood Cell (RBC) Count 2.82 mill/uL (4.70-6.10); White Blood Cell (WBC) Count 3.4 thou/uL (4.8-10.8)
[2020-05-27 04:59] LABS: Band 4 % (5-11); Hypochromia SLIGHT = 6-15 cells (100X) (0-5/hpf); Lymphocytes 16 % (21-51); MDiff Complete? YES; Metamyelocyte 1 % (0-0); Neutrophil 79 % (42-75); Platelet Morphology Comment Appears Decreased
[2020-05-27] MEDS ORDERED: Calcium Gluconate 4.6 MEQ in Sodium Chloride 0.9% 100 ML IVPB SCH (06:42)
[2020-05-27] MEDS ORDERED: NPH, Human Insulin Isophane 300 UNIT/3 ML VIAL SC SCH (06:58)
--- NOTE | 2020-05-27 07:01 | PDOC.FM ---
- Subjective Subjective: Pt states he is doing well this morning. He does not complain of an shortness of breath or complaints of any pain. - Objective MAR Reviewed: Yes Vital Signs & Weight: Vital Signs (12 hours) Pulse Ox 05/26/20 19:15 100 Weight Admit Weight 77.9 kg Weight 88.5 kg Most Recent Monitor Data Heart Rate from ECG 79 NIBP 106/75 NIBP BP-Mean 85 Respiration from ECG 21 SpO2 100 I&O: 05/25/20 05/26/20 05/27/20 06:59 06:59 06:59 Intake Total 3261.8 2921 1567 Output Total 43 667 1545 Balance 3218.8 2254 22 Result Diagrams: 05/27/20 04:00 05/27/20 04:00 Phys Exam - Physical Examination Constitutional: NAD HEENT: moist MMs, sclera anicteric Neck: no nodes, supple crackles present in lung bases Cardiovascular: RRR, no significant murmur Gastrointestinal: soft, non-tender, positive bowel sounds 2+ pitting edema Neurological: moves all 4 limbs Lymphatic: no nodes Psychiatric: normal affect Skin: no rash Dx/Plan (1) Acute kidney failure Status: Acute (2) Adrenal insufficiency Code(s): E27.40 - UNSPECIFIED ADRENOCORTICAL INSUFFICIENCY Status: Acute (3) HFrEF (heart failure with reduced ejection fraction) Code(s): I50.20 - UNSPECIFIED SYSTOLIC (CONGESTIVE) HEART FAILURE Status: Acute (4) Sepsis associated hypotension Code(s): A41.9 - SEPSIS, UNSPECIFIED ORGANISM; I95.9 - HYPOTENSION, UNSPECIFIED Status: Acute (5) 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 DISEASE Status: Chronic (6) Diabetes type 2, controlled Code(s): E11.9 - TYPE 2 DIABETES MELLITUS WITHOUT COMPLICATIONS Status: Chronic Qualifiers: Diabetes mellitus care home insulin use: with superintendent terminal use Diabetes mellitus complication status: with hyperglycemia Qualified Code(s): E11.65 - Type 2 diabetes mellitus with hyperglycemia; Z79.4 - [facility] (current) use of insulin (7) H/O deep venous thrombosis Code(s): Z86.718 - PERSONAL HISTORY OF OTHER VENOUS THROMBOSIS AND EMBOLISM Status: Chronic - Plan Plan: 60 yo M, bounceback from previous admission, here for: Neuro: GCS 15 Acute encephalopathy, resolved HEENT: Aspiration s/p Extubation Resp: Aspiration 2/2 to vomiting - extubated - wean O2 as able - Pulm Dr. Styles consulted. Appreciate recs. CV: Hypotension, resolved s/p ROSC Hx of HTN, HLD, and HFrEF - Levophed d/c yesterday - Hold fluids for now due to 10 kg weight gain - last ECHO 02/2020: EF 40-45%, grade 1 of 3 diastolic dysfunction Endo: Adult Still's disease - Hydrocortisone decreased from 100 to 50 today - Continue home fludrocortisone - Continue home anakinra T2DM - Glucose check ACHS - Mild SSI - Glucagon/D50 if hypoglycemic - BID NPH- Increased today Renal/Electrolytes/: Possible UTI -Urethral discharge culture. Meropenem started. Linezolid and Micafungin discontinued. CARL 2/2 hypoprofusion, will work to improve bp and circulation, consider Nephrology consult Electrolytes -Hypocalcemia, Replacing. Mag & Phos are normal. PTH is elevated to compensate -Hypokalemia, Resolved -Hypomagnesemia, resolved BPH - Hold tamsulosin as pt is hypotensive. Has dobbins in. Heme/ID: Septic shock versus exacerbation of Still's disease - cultures at outside ED pending, NGTD - Urethral discharge culture: Presumptive Shandra albicans. Had dobbins on previous admission so may have new urinary infection versus recurrent UTI. Hx of klebsiella resistant to most antibiotics on last admission. - Empiric meropenem due to history of resistant klebsiella. Dr. Styles discontinued linezolid and micafungin due to lack of growth. - Dr. Nickerson consulted for infectious disease. Appreciate recs. - ordered fungal blood cultures - also ordered GC/C on urine History of DVT in R popliteal vein diagnosed on 02/28/2020 - was on home xarelto of 10mg daily, but not recommended with GFR < 30 - Therapeutic lovenox discontinued due to low platelets - Currently on Eliquis Code: FULL VTE: SCD, will need to restart something for the DVT GI PPx: PPI IVF: SL Drips: None Lines: R femoral line, 2 PIVs (1 LAC, 1 RAC), Dobbins Diet: CC 1800 with nectar thickened liquids and ground Dispo: Will transfer to medical floor today and discuss bicarb with Nephrology. Addendum - Attending - Attending Attestation Date/Time: 05/27/20 4184 I personally evaluated the patient and discussed the management with Dr. Boyce. I agree with the History, Examination, Assessment and Plan documented above with any addition or exceptions noted below. Patient overall stable. Feeling somewhat better. Renal function continues to be poor but he fortunately is produced adequate urine amounts. Nephro on board. BP stable. Needs to restart Anakinra and work with CM regarding disposition.
--- NOTE | 2020-05-27 08:23 | PRG ---
DATE OF SERVICE: 05/27/2020 SUBJECTIVE: The patient is awake, alert, and in no distress. PHYSICAL EXAMINATION: VITAL SIGNS: On exam, his O2 saturation 100%, pulse 79, blood pressure 106/75, temperature has not been obtained in the last 6 hours. Total intake for 24 hours, 1567 and output 1545. HEENT: Unremarkable. NECK: No JVD. CHEST: Clear anteriorly. CARDIAC: S1 and S2. Regular. ABDOMEN: Soft. EXTREMITIES: Edematous. LABORATORY DATA: White blood cell count 3.4, hematocrit 24.8, and platelet count 39. Sodium 141, potassium 4.7, chloride 109, CO2 of 16, BUN 77, creatinine 4.2, glucose 132, AST 145, and ALT 878. ASSESSMENT: 1. Acute renal failure secondary to acute tubular necrosis from hypotension. 2. Adult onset Still's disease. 3. Status post respiratory failure requiring mechanical ventilation. 4. Resolved hypotension. 5. Adrenal insufficiency. 6. Medical noncompliance. PLAN: 1. Continue steroids and fludrocortisone. 2. The patient is currently anticoagulated-may need to be very careful with this given his renal insufficiency and thrombocytopenia. 3. Should be able to transfer to medical floor. Job ID: [id number]
[2020-05-27] MEDS: Pantoprazole 40 MG VIAL IVP SCH (09:39)
[2020-05-27] MEDS: Apixaban 5 MG TAB PO SCH ×2 (09:39→20:19)
[2020-05-27] MEDS: NPH, Human Insulin Isophane 300 UNIT/3 ML VIAL SC SCH (09:41)
[2020-05-27] MEDS: Fludrocortisone Acetate 0.1 MG TAB PER TUBE SCH (12:59)
[2020-05-27] MEDS: ANAKINRA SC SCH ×2 (14:48→14:50)
[2020-05-27] MEDS: Sodium Bicarbonate Tab 325 MG TAB PO SCH ×2 (14:49→20:19)
--- NOTE | 2020-05-27 19:52 | PRG ---
DATE OF SERVICE: 05/27/2020 SUBJECTIVE: A 60-year-old gentleman being seen for acute kidney injury. The patient denied nausea, vomiting, or chest pain. PHYSICAL EXAMINATION: General: The patient is awake and alert. Vital Signs: Afebrile, pulse 73, breathing at 16, blood pressure 131/78. HEENT: Head normocephalic and atraumatic. Eyes intact, no ulcers. Nose intact, no ulcers. Ears intact, no ulcers. Neck: Supple. No JVD. Chest: Symmetrical and clear. Cardiovascular: Shows S1 and S2, no rub, no murmur. Gastrointestinal: Abdomen is soft, bowel sounds positive. Extremities: Show no edema or ulcers. Skin: Shows no rash or petechiae. Musculoskeletal: Shows no joint swelling or stiffness. Genitourinary: Shows no Napier or CVA tenderness. Neurologic: Motor intact. Cranial nerves intact. LABORATORY DATA: Lab showed hemoglobin 8.1. Creatinine 3.7. ASSESSMENT AND PLAN: 1. Acute kidney injury with chronic kidney disease, stage 4, worsened. 2. Hypertension, stable. 3. Anemia, stable. 4. Metabolic ketoacidosis. Start the patient on sodium bicarbonate. No urgent indication for dialysis. The patient is nonoliguric. I would recommend labs in the morning. Job ID: [id number]
[2020-05-28] MEDS: Hydrocortisone Sod Succ/PF 100 mg/2 ml Vial IVP SCH ×2 (00:49→05:29)
[2020-05-28] MEDS: Meropenem 2 GM, Admixture Fee 1 EACH in Sodium Chloride 0.9% 100 ML IVPB SCH (01:10)
[2020-05-28] MEDS: HumaLOG 300 UNITS/3 ML VIAL SC PRN ×4 (04:54→21:07)
[2020-05-28 06:15] LABS: ALT (SGPT) 515 U/L (8-55); AST (SGOT) 216 U/L (5-34); Albumin 2.6 g/dL (3.5-5.0); Alkaline Phosphatase 224 U/L (40-110); Anion Gap 21 mmol/L (10-20); BUN (Urea Nitrogen) 91 mg/dL (8.4-25.7); Calc. Creatinine Clearance 19 mL/min (70-130); Carbon Dioxide 18 mmol/L (22-29); Chloride 109 mmol/L (98-107); Estimated GFR-MDRD 15; Globulin 2.4 g/dL (2.4-3.5); Glucose 284 mg/dL (70-105); Potassium 4.5 mmol/L (3.5-5.1); Sodium 143 mmol/L (136-145)
[2020-05-28 06:25] LABS: Hemoglobin 8.3 g/dL (14.0-18.0); Lymphocytes 50 % (21-51); MDiff Complete? YES; Mean Corpuscular HGB CONC 33.2 g/dL (32.0-36.0); Mean Corpuscular Hemoglobin 29.1 pg (27.0-31.0); Mean Corpuscular Volume 87.7 fL (78.0-98.0); Mean Platelet Volume 14.7 fL (7.4-10.4); Monocytes 2 % (0-10); Neutrophil 48 % (42-75); Platelet Count 39 thou/uL (130-400); Platelet Morphology Comment Appears Decreased; RBC Distribution Width 18.4 % (11.5-14.5); Red Blood Cell (RBC) Count 2.85 mill/uL (4.70-6.10)
[2020-05-28 06:26] LABS: Calcium 5.9 mg/dL (7.8-10.44)
--- NOTE | 2020-05-28 07:05 | PDOC.FM ---
- Subjective Subjective: Transferred from IM to medical floor yesterday. No acute overnight events. Patient has no complaints this AM. Denies fever, chills, sore throat, chest pain, SOB, leg swelling, dysphagia. - Objective Vital Signs & Weight: Vital Signs (12 hours) Temp Pulse Resp BP Pulse Ox 05/28/20 05:00 73 16 135/75 100 05/28/20 00:43 97.6 F 80 18 117/76 100 05/28/20 00:00 98 05/27/20 20:05 84 18 118/73 100 05/27/20 20:00 100 Weight Admit Weight 77.9 kg Weight 85.531 kg Most Recent Monitor Data Heart Rate from ECG 78 NIBP 110/68 NIBP BP-Mean 82 Respiration from ECG 22 SpO2 100 I&O: 05/27/20 05/28/20 05/29/20 06:59 06:59 06:59 Intake Total 1567 625 Output Total 1545 2600 Balance Result Diagrams: 05/28/20 05:48 05/28/20 03:30 Phys Exam - Physical Examination Constitutional: NAD HEENT: moist MMs bloody discharge back of throat likely 2/2 extubation Respiratory: no wheezing few rales bilateral bases Cardiovascular: RRR, no significant murmur Gastrointestinal: soft, non-tender, no distention, positive bowel sounds Musculoskeletal: no edema, pulses present Neurological: non-focal Deviation from normal: pleasant affect Skin: no rash Dx/Plan - Plan Plan: 60 yo M, bounceback from previous admission, here for: Neuro: GCS 15 Acute encephalopathy, resolved HEENT: Aspiration s/p Extubation Resp: Aspiration 2/2 to vomiting - extubated - resting comfortably on - Pul Dr. Styles consulted. Appreciate recs. CV: Hypotension, resolved s/p ROSC Hx of HTN, HLD, and HFrEF - Levophed d/c 05/26 - Hold fluids for now due to 10 kg weight gain - Daily weights - last ECHO 02/2020: EF 40-45%, grade 1 of 3 diastolic dysfunction Endo: Adult Still's disease - Hydrocortisone decreased from 100 to 50 today - Continue home fludrocortisone - Continue home anakinra T2DM - Glucose check ACHS - Mild SSI - Glucagon/D50 if hypoglycemic - BID NPH- Increased today Renal/Electrolytes/: Possible UTI -Urethral discharge culture. Meropenem started. Linezolid and Micafungin discontinued. CARL 2/2 hypoprofusion -Cr 4.93 today -Continue to monitor UOP, Cr -Nephrology following, appreciate recs Electrolytes -Hypocalcemia, Replacing. Mag & Phos are normal. PTH is elevated to compensate -Hypokalemia, Resolved -Hypomagnesemia, resolved BPH - Hold tamsulosin as pt has been hypotensive. Has dobbins in. Heme/ID: Pancytopenia - suspect bone marrow suppresion s/p pressors - continue to monitor with AM CBC - fall precautions added - neutropenic precautions added Septic shock versus exacerbation of Still's disease - cultures at outside ED pending, NGTD - Urethral discharge culture: Presumptive Shandra albicans. Had dobbins on prev ious admission so may have new urinary infection versus recurrent UTI. Hx of klebsiella resistant to most antibiotics on last admission. - Empiric meropenem due to history of resistant klebsiella. Dr. Styles discontinued linezolid and micafungin due to lack of growth. - Dr. Nickerson consulted for infectious disease. Appreciate recs. - ordered fungal blood cultures - also ordered GC/C on urine History of DVT in R popliteal vein diagnosed on 02/28/2020 - was on home xarelto of 10mg daily, but not recommended with GFR < 30 - Therapeutic lovenox discontinued due to low platelets - Currently on Eliquis Code: FULL VTE: Eliquis GI PPx: PPI IVF: SL Drips: None Lines: R femoral line, 2 PIVs (1 LAC, 1 RAC), Dobbins Diet: CC 1800 with nectar thickened liquids and ground Dispo: Will transfer to medical floor today and discuss bicarb with Nephrology. Addendum - Attending - Attending Attestation Date/Time: 05/28/20 0002 I personally evaluated the patient and discussed the management with Dr. Schmitt. I agree with the History, Examination, Assessment and Plan documented above with any addition or exceptions noted below. Patient reports feeling well. Renal function continues to worsen based on Creatinine, but he is making better UOP. Suspect non-oliguric ATN from pressor use from hypotension. Nephro on board. He also is now neutropenic and overall pancytopenic, continue to monitor. Suspect this could be some bone marrow suppression from his critical illness. No evidence of infection at this time. Will put on precautions. ID on board. Back on Anakinra. Needs placement.
[2020-05-28] MEDS ORDERED: Calcium Gluconate 4.6 MEQ in Sodium Chloride 0.9% 100 ML IVPB SCH (07:22)
[2020-05-28] MEDS: Sodium Bicarbonate Tab 325 MG TAB PO SCH ×3 (08:19→20:10)
[2020-05-28] MEDS: Fludrocortisone Acetate 0.1 MG TAB PER TUBE SCH (08:19)
[2020-05-28] MEDS: Pantoprazole 40 MG VIAL IVP SCH (08:19)
[2020-05-28] MEDS: Apixaban 5 MG TAB PO SCH ×2 (08:20→20:09)
[2020-05-28] MEDS: ANAKINRA SC SCH (08:21)
[2020-05-28] MEDS: NPH, Human Insulin Isophane 300 UNIT/3 ML VIAL SC SCH (08:22)
[2020-05-28] MEDS ORDERED: NPH, Human Insulin Isophane 300 UNIT/3 ML VIAL SC SCH ×2 (09:45→21:00)
[2020-05-28] MEDS ORDERED: Calcium Carbonate 500 MG ChewTAB PO SCH (10:13)
--- NOTE | 2020-05-28 10:19 | PRG ---
DATE OF SERVICE: 05/28/2020 SUBJECTIVE: The patient is doing reasonably well. OBJECTIVE: VITAL SIGNS: Temperature is 97.6, pulse 72, respirations 15, oxygen saturations 100%, blood pressure 142/83. HEENT: Unremarkable. NECK: No JVD. LUNGS: Clear. CARDIAC: S1 and S2. Regular. ABDOMEN: Soft. EXTREMITIES: No edema. LABORATORY DATA: White blood cell count , hematocrit 25, platelet count 39. Sodium 143, potassium 4.5, chloride 109, CO2 of 18, BUN 91, creatinine 4.9, glucose 284. Cultures are not showing any growth. ASSESSMENT: Adult onset Still disease with noncompliance with immunosuppressive medication. PLAN: I will go ahead and switch him back over to oral antibiotics and steroids. This is a tough situation as he cannot get his medication in the jail. Job ID: [id number]
--- NOTE | 2020-05-28 11:54 | PRG ---
DATE OF SERVICE: 05/28/2020 SUBJECTIVE: A 60-year-old gentleman, being seen for acute kidney injury. The patient denies any nausea, vomiting, or chest pain. OBJECTIVE: General: The patient is awake and alert. Vital Signs: Afebrile, pulse 75, breathing at 16, blood pressure 135/75. HEENT: Head normocephalic and atraumatic. Eyes intact, no ulcers. Nose intact, no ulcers. Ears intact, no ulcers. Neck: Supple. No JVD. Chest: Symmetrical and clear. Cardiovascular: Shows S1 and S2, no rub, no murmur. Gastrointestinal: Abdomen is soft, bowel sounds positive. Extremities: Show no edema or ulcers. Skin: Shows no rash or petechiae. Musculoskeletal: Shows no joint swelling or stiffness. Genitourinary: Shows no Napier or CVA tenderness. Neurologic: Motor intact. Cranial nerves intact. LABORATORY DATA: Reviewed. ASSESSMENT AND PLAN: 1. Acute kidney injury with chronic kidney disease stage 5, nonoliguric. No indication for dialysis. 2. Hypertension, stable. 3. Anemia, stable. 4. Metabolic acidosis, improved. We will follow renal function closely. Job ID: [id number]
[2020-05-28] MEDS: predniSONE 20 MG TAB PO SCH (12:01)
--- NOTE | 2020-05-29 06:51 | PDOC.FM ---
- Subjective Subjective: No acute overnight events. Placed on neutropenic precautions yesterday. Denies fever, chills, pain, headache. He reports his arms feel somewhat weak. Denies additional complaints. - Objective Vital Signs & Weight: Vital Signs (12 hours) Temp Pulse Resp BP Pulse Ox 05/28/20 20:34 97.9 F 93 20 135/80 100 05/28/20 20:00 100 Weight Admit Weight 77.9 kg Weight 82.724 kg Most Recent Monitor Data Heart Rate from ECG 78 NIBP 110/68 NIBP BP-Mean 82 Respiration from ECG 22 SpO2 100 I&O: 05/27/20 05/28/20 05/29/20 06:59 06:59 06:59 Intake Total 1567 625 600 Output Total 1545 2600 2049 Balance Result Diagrams: 05/29/20 05:55 05/29/20 05:40 Phys Exam - Physical Examination Constitutional: NAD HEENT: moist MMs some blood in mouth s/p extubation Neck: supple Respiratory: clear to auscultation bilateral Cardiovascular: RRR, no significant murmur Gastrointestinal: soft, non-tender Musculoskeletal: pulses present 2+ pitting edema bilaterally Neurological: non-focal, moves all 4 limbs CN 2-12 grossly intact, strength equal in bilateral UE Deviation from normal: oriented to self, provides 1 word answers only Skin: no rash Dx/Plan - Plan Plan: 60 yo M, bounceback from previous admission, here for: s/p ROSC Septic shock versus exacerbation of Still's disease - Levophed d/c 05/26 - Hold fluids for now due to 10 kg weight gain - Daily weights - meropenem d/c per pulm, switched to omnicef and PO steroids - cultures at outside ED pending, NGTD - Urethral discharge culture: Presumptive Shandra albicans. Had dobbins on previous admission so may have new urinary infection versus recurrent UTI. Hx of klebsiella resistant to most antibiotics on last admission. - Dr. Nickerson consulted for infectious disease. Appreciate recs. - ordered fungal blood cultures, pending - also ordered GC/C on urine Pancytopenia Suspect bone marrow suppression due to severe hypotension, pressors. Platelets are low but stable. WBC continues to trend downward, ANC 120 today. - continue to monitor - neutropenic precautions CARL on CKD -Cr began downtrending today -Continue to monitor UOP, Cr -Nephrology following, appreciate recs -DC dobbins today as possible source of infection -Continue strict I/O Aspiration s/p Extubation, 2/2 vomiting - extubated - resting comfortably on RA - Pulm Dr. Styles consulted. Appreciate recs HTN Anti-hypertensives held 2/2 hypotension. BP is improving -continue to monitor HLD -aware HFrEF - last ECHO 02/2020: EF 40-45%, grade 1 of 3 diastolic dysfunction Adult Still's disease - Continue home fludrocortisone - Continue home anakinra T2DM - Glucose check ACHS - Mild SSI - Glucagon/D50 if hypoglycemic - BID NPH, continue to titrate up as needed Electrolytes -Hypocalcemia, Replacing. Mag & Phos are normal. PTH is elevated to compensate -Hypokalemia, Resolved -Hypomagnesemia, resolved BPH - Hold tamsulosin as pt has been hypotensive. Has dobbins in - Will DC dobbins today, consider resumption of BPH pending symptoms History of DVT in R popliteal vein diagnosed on 02/28/2020 - was on home xarelto of 10mg daily, but not recommended with GFR < 30 - Therapeutic lovenox discontinued due to low platelets - Currently on Eliquis Acute encephalopathy, resolved Code: FULL VTE: Eliquis GI PPx: PPI IVF: SL Drips: None Lines: R femoral line, dobbins Diet: CC 1800 with nectar thickened liquids and ground Dispo: pending further medical managment Addendum - Attending - Attending Attestation Date/Time: 05/29/20 1130 I personally evaluated the patient and discussed the management with Dr. Schmitt. I agree with the History, Examination, Assessment and Plan documented above with any addition or exceptions noted below.
[2020-05-29 06:54] LABS: Hemoglobin 8.4 g/dL (14.0-18.0); Mean Corpuscular HGB CONC 32.7 g/dL (32.0-36.0); Mean Corpuscular Hemoglobin 28.9 pg (27.0-31.0); Mean Corpuscular Volume 88.4 fL (78.0-98.0); Mean Platelet Volume 14.5 fL (7.4-10.4); Platelet Count 40 thou/uL (130-400); RBC Distribution Width 18.4 % (11.5-14.5); Red Blood Cell (RBC) Count 2.92 mill/uL (4.70-6.10); White Blood Cell (WBC) Count 0.6 thou/uL (4.8-10.8)
[2020-05-29 07:36] LABS: Anisocytosis SLIGHT = 6-15 cells (100X) (0-5/hpf); Elliptocytes SLIGHT = 2-5 cells (100X) (0-1/hpf); Large Platelets SLIGHT; Lymphocytes 80 % (21-51); MDiff Complete? YES; Neutrophil 20 % (42-75); Platelet Morphology Comment Appears Decreased; Tear Drops SLIGHT = 2-5 cells (100X) (0-1/hpf)
[2020-05-29 08:05] LABS: ALT (SGPT) 375 U/L (8-55); AST (SGOT) 345 U/L (5-34); Albumin 2.5 g/dL (3.5-5.0); Alkaline Phosphatase 243 U/L (40-110); Anion Gap 22 mmol/L (10-20); BUN (Urea Nitrogen) 92 mg/dL (8.4-25.7); Bilirubin, Total 1.8 mg/dL (0.2-1.2); Calc. Creatinine Clearance 21 mL/min (70-130); Calcium 6.5 mg/dL (7.8-10.44); Carbon Dioxide 19 mmol/L (22-29); Chloride 111 mmol/L (98-107); Estimated GFR-MDRD 16; Globulin 2.6 g/dL (2.4-3.5); Glucose 156 mg/dL (70-105); Potassium 3.6 mmol/L (3.5-5.1); Protein, Total 5.1 g/dL (6.0-8.3); Sodium 148 mmol/L (136-145)
[2020-05-29] MEDS: Cefdinir 300 MG CAP PO SCH (08:19)
[2020-05-29] MEDS: Calcium Carbonate 500 MG ChewTAB PO SCH (08:19)
[2020-05-29] MEDS: Sodium Bicarbonate Tab 325 MG TAB PO SCH ×2 (08:19→15:37)
[2020-05-29] MEDS: Fludrocortisone Acetate 0.1 MG TAB PER TUBE SCH (08:20)
[2020-05-29] MEDS: Apixaban 5 MG TAB PO SCH ×2 (08:20→21:28)
[2020-05-29] MEDS: Pantoprazole 40 MG VIAL IVP SCH (08:21)
[2020-05-29] MEDS: ANAKINRA SC SCH (08:22)
[2020-05-29] MEDS ORDERED: NPH, Human Insulin Isophane 300 UNIT/3 ML VIAL SC SCH ×3 (09:00→21:30)
[2020-05-29] MEDS: predniSONE 20 MG TAB PO SCH (11:11)
[2020-05-29] MEDS: NPH, Human Insulin Isophane 300 UNIT/3 ML VIAL SC SCH ×2 (11:12→21:18)
[2020-05-29] MEDS: HumaLOG 300 UNITS/3 ML VIAL SC PRN (12:48)
--- NOTE | 2020-05-29 12:56 | PRG ---
DATE OF SERVICE: 05/29/2020 SUBJECTIVE: The patient remains hospitalized. He is awake, but somewhat inappropriate in his answers indicating probably still has altered mental status. OBJECTIVE: VITAL SIGNS: Temperature 97.8, pulse 63, respirations 18, O2 saturation 100%, blood pressure 139/67. GENERAL APPEARANCE: Disheveled. HEENT: Unremarkable. NECK: No JVD. LUNGS: Clear anteriorly. CARDIAC: S1, S2. Regular. ABDOMEN: Soft. EXTREMITIES: Edematous throughout. LABORATORY DATA: White blood count 0.6, hematocrit 25.8, and platelet count 40. Sodium 140, potassium 3.6, chloride 119, CO2 of 19, BUN 92, creatinine 4.5, glucose 156. ASSESSMENT: 1. Status post respiratory failure. 2. Adult onset Still's disease. 3. Acute renal failure. Looks like he is starting to plateau from his acute tubular necrosis. 4. Pancytopenia. RECOMMENDATIONS: I would go ahead and stop the methotrexate. Continue the steroids. I would consider Rheumatology and Hematology consultation for his marrow suppression and his rheumatologic disease. Job ID: [id number]
[2020-05-29] MEDS: Dextrose 5% in Water 1,000 ML IV SCH (15:45)
--- NOTE | 2020-05-29 17:48 | PRG ---
DATE OF SERVICE: 05/29/2020 SUBJECTIVE: Mr. Knight is transferred to the floor. He is oriented, actually he knows he is in [facility] and the year, and he pretty much had made sense in his answers and follow commands. He did not have any headaches. No shortness of breath or abdominal pain. It seems like he was having some urinary retention, but he was not sure about it. OBJECTIVE: VITAL SIGNS: His vital signs showed T-max 97.8, blood pressure 130/60, heart rate 63, respiratory rate 18, and O2 saturation 100%. GENERAL: He has a central line in the right groin, which was losing blood and the patient was moving all extremities, but he gets diffuse stiffness like usual, looked around, but he was not in distress. LUNGS: Clear to auscultation and percussion. HEART: S1 and S2 regular rate. No S3 or S4. ABDOMEN: Soft, not distended. Question of bladder distention. LABORATORY DATA: Showed a marked decrease in his white cell count 0.6, hemoglobin 8.4, platelets are down to 40,000, and a 20% neutrophils with 80% lymphocytes. Sodium 148, creatinine is up to 4.46, and marked elevation in the transaminases, but last time when he initially came in on May 24, his alkaline phosphatase is up to 243. IMAGING STUDIES: The only imaging study was a chest x-ray that was done in this admission. His previous study of abdomen and pelvis CT was done in February 25, 2020, which showed sigmoid diverticulitis and renal cysts and bilateral nephrolithiasis, right common femoral central venous catheter. He had a brain MRI on May 14, which showed no significant findings other than possible normal-pressure hydrocephalus, but that was questionable finding. The chest x-ray at this time on admission with ET tube in place, clear lungs. ASSESSMENT AND DISCUSSION: Adult still disease, rheumatoid arthritis, recrudescence of inflammatory syndrome after interruption of the anti-inflammatory medication at the shelter, admission with sepsis, now is developing acute renal failure, which appears to be nonoliguric, and Dr. Renteria has evaluated the patient. He has wheezing from the groin associated with central line. The central line may have to be removed. I do not think he requires it anymore and we will eliminate one source of potential nosocomial infection. Anakinra can be associated with neutropenia upon reintroduction, but it should improve over the next few days hopefully. An opportunistic infectious or neoplastic process will continue to be a concern depending on clinical progress. Job ID: [id number] [facility]
--- NOTE | 2020-05-29 18:05 | PRG ---
DATE OF SERVICE: 05/29/2020 SUBJECTIVE: A 60-year-old gentleman, being seen for acute kidney injury. The patient denied any nausea, vomiting, or chest pain. OBJECTIVE: General: The patient is awake and alert. Vital Signs: Afebrile, pulse 100, breathing at 16, blood pressure 139/67. HEENT: Head normocephalic and atraumatic. Eyes intact, no ulcers. Nose intact, no ulcers. Ears intact, no ulcers. Neck: Supple. No JVD. Chest: Symmetrical and clear. Cardiovascular: Shows S1 and S2, no rub, no murmur. Gastrointestinal: Abdomen is soft, bowel sounds positive. Extremities: Show no edema or ulcers. Skin: Shows no rash or petechiae. Musculoskeletal: Shows no joint swelling or stiffness. Genitourinary: Shows no Napier or CVA tenderness. Neurologic: Motor intact. Cranial nerves intact. LABORATORY DATA: Hemoglobin 8.4, creatinine 4.4. ASSESSMENT AND PLAN: Acute kidney injury, improved. Hypertension, stable. , start the patient on free water. The patient is nonoliguric. We will follow renal function closely. Hypocalcemia, recommend calcium supplementation. Job ID: [id number]
[2020-05-30] MEDS: Dextrose 5% in Water 1,000 ML IV SCH ×3 (06:40→17:47)
--- NOTE | 2020-05-30 06:52 | PDOC.FM ---
- Subjective Subjective: Late yesterday removed his own central line R fem. No acute bleeding from this area. This AM, denies complaints including no abdominal pain, nausea, SOB. He appears restless. - Objective Vital Signs & Weight: Vital Signs (12 hours) Temp Pulse Resp BP BP Pulse Ox 05/30/20 06:43 97.7 F 72 16 135/66 100 05/30/20 00:17 72 18 138/71 100 05/29/20 20:00 100 05/29/20 19:48 72 16 134/65 100 Weight Admit Weight 77.9 kg Weight 82.724 kg Most Recent Monitor Data Heart Rate from ECG 78 NIBP 110/68 NIBP BP-Mean 82 Respiration from ECG 22 SpO2 100 I&O: 05/28/20 05/29/20 05/30/20 06:59 06:59 06:59 Intake Total 625 600 900 Output Total 2600 2050 2550 Balance -[id number] Result Diagrams: 05/30/20 08:07 05/30/20 08:06 Phys Exam - Physical Examination Constitutional: NAD not cooperative with exam, unable to examine mouth Respiratory: clear to auscultation bilateral Cardiovascular: RRR, no significant murmur Gastrointestinal: soft, non-tender, no distention, positive bowel sounds Musculoskeletal: no edema, pulses present Neurological: moves all 4 limbs clean, dry dressing over R fem central line site Deviation from normal: does Skin: no rash Dx/Plan - Plan Plan: s/p ROSC Septic shock versus exacerbation of Still's disease - Levophed d/c 05/26 - Hold fluids for now due to 10 kg weight gain - Daily weights - meropenem d/c per pulm, switched to omnicef and PO steroids - blood cx outside ED NGTD x 5 days - final - Urethral discharge culture: Presumptive Shandra albicans. Had dobbins on previous admission so may have new urinary infection versus recurrent UTI. Hx of klebsiella resistant to most antibiotics on last admission. - Dr. Nickerson consulted for infectious disease. Appreciate recs. Pancytopenia Suspect bone marrow suppression due to severe hypotension, pressors. Platelets are low but stable. WBC begininng to trend slightly upward this AM. - continue to monitor - neutropenic precautions - briefly discussed with heme/onc, will not formally consult at this time CARL on CKD -Cr continues down-trending -Continue to monitor UOP, Cr -Nephrology following, appreciate recs -DC dobbins yesterday for infection prevention -Continue strict I/O -Has had good UOP, negative fluid balance and down to 82 kg from 88 kg few days ago Transaminitis Attributed to shock liver s/p septic shock, arrest. Liver enzymes now trending back up. - continue to monitor with CMP - consider further GI eval vs RUQ US Hypernatremia - D5W per nephro - DC fludrocortisone as this is suspected to be a contributing factor - monitor labs daily - encourage oral water intake Aspiration s/p Extubation, 2/2 vomiting - extubated - resting comfortably on RA - Pulm Dr. Styles consulted. Appreciate recs HTN Anti-hypertensives held 2/2 hypotension. BP is improving -continue to monitor HLD -aware HFrEF - last ECHO 02/2020: EF 40-45%, grade 1 of 3 diastolic dysfunction Adult Still's disease - DC fludrocortisone as above, will continue oral prednisone - Continue home anakinra T2DM - Glucose check ACHS - Mild SSI - Glucagon/D50 if hypoglycemic - BID NPH, continue to titrate up as needed Electrolytes -Hypocalcemia, Replacing. Mag & Phos are normal. PTH is elevated to compensate -Hypokalemia, Replete at needed -Hypomagnesemia, resolved BPH - Previously holding tamsulosin 2/2 hypotension, consider resuming in setting of some retention overnight History of DVT in R popliteal vein diagnosed on 02/28/2020 - was on home xarelto of 10mg daily, but not recommended with GFR < 30 - Therapeutic lovenox discontinued due to low platelets - Currently on Eliquis Acute encephalopathy, resolved Code: FULL VTE: Eliquis GI PPx: PPI IVF: SL Drips: None Lines: L wrist peripheral IV Diet: CC 1800 with nectar thickened liquids and ground Dispo: pending further medical managment Addendum - Attending - Attending Attestation Date/Time: 05/30/20 1044 I personally evaluated the patient and discussed the management with Dr. Schmitt. I agree with the History, Examination, Assessment and Plan documented above with any addition or exceptions noted below.
[2020-05-30 08:46] LABS: ALT (SGPT) 353 U/L (8-55); AST (SGOT) 518 U/L (5-34); Albumin 2.8 g/dL (3.5-5.0); Alkaline Phosphatase 248 U/L (40-110); Anion Gap 20 mmol/L (10-20); BUN (Urea Nitrogen) 75 mg/dL (8.4-25.7); Bilirubin, Total 2.7 mg/dL (0.2-1.2); Calc. Creatinine Clearance 26 mL/min (70-130); Calcium 6.7 mg/dL (7.8-10.44); Carbon Dioxide 21 mmol/L (22-29); Chloride 111 mmol/L (98-107); Estimated GFR-MDRD 24; Globulin 2.7 g/dL (2.4-3.5); Glucose 112 mg/dL (70-105); Potassium 3.1 mmol/L (3.5-5.1); Protein, Total 5.5 g/dL (6.0-8.3); Sodium 149 mmol/L (136-145)
[2020-05-30 09:13] LABS: Elliptocytes SLIGHT = 2-5 cells (100X) (0-1/hpf); Eosinophils 5 % (0-10); Hemoglobin 8.7 g/dL (14.0-18.0); Lymphocytes 93 % (21-51); MDiff Complete? YES; Mean Corpuscular HGB CONC 32.1 g/dL (32.0-36.0); Mean Corpuscular Hemoglobin 28.5 pg (27.0-31.0); Mean Corpuscular Volume 88.8 fL (78.0-98.0); Mean Platelet Volume 15.4 fL (7.4-10.4); Neutrophil 3 % (42-75); Platelet Count 30 thou/uL (130-400); Platelet Morphology Comment Appears Decreased; Poikilocytosis SLIGHT = 6-15 cells (100X) (0-5/hpf); Red Blood Cell (RBC) Count 3.05 mill/uL (4.70-6.10); Schistocytes SLIGHT = 2-5 cells (100X) (0-1/hpf)
[2020-05-30] MEDS ORDERED: Potassium Chloride 20 MEQ TAB PO SCH (09:15)
[2020-05-30] MEDS: Cefdinir 300 MG CAP PO SCH (09:36)
[2020-05-30] MEDS: Calcium Carbonate 500 MG ChewTAB PO SCH (09:36)
[2020-05-30] MEDS: Apixaban 5 MG TAB PO SCH ×3 (09:36→22:07)
[2020-05-30] MEDS: Pantoprazole 40 MG VIAL IVP SCH (09:37)
[2020-05-30] MEDS: ANAKINRA SC SCH (09:37)
[2020-05-30] MEDS: Fludrocortisone Acetate 0.1 MG TAB PER TUBE SCH (09:48)
[2020-05-30] MEDS: NPH, Human Insulin Isophane 300 UNIT/3 ML VIAL SC SCH ×2 (09:49→20:36)
--- NOTE | 2020-05-30 11:26 | PRG ---
DATE OF SERVICE: SUBJECTIVE: A 60-year-old gentleman being seen for acute kidney injury. The patient denies any nausea, vomiting, or chest pain. PHYSICAL EXAMINATION: General: The patient is awake and alert. Vital Signs: Afebrile, pulse 76, breathing 16, blood pressure 131/73. HEENT: Head normocephalic and atraumatic. Eyes intact, no ulcers. Nose intact, no ulcers. Ears intact, no ulcers. Neck: Supple. No JVD. Chest: Symmetrical and clear. Cardiovascular: Shows S1 and S2, no rub, no murmur. Gastrointestinal: Abdomen is soft, bowel sounds positive. Extremities: Show no edema or ulcers. Skin: Shows no rash or petechiae. Musculoskeletal: Shows no joint swelling or stiffness. Genitourinary: Shows no Napier or CVA tenderness. Neurologic: Motor intact. Cranial nerves intact. LABORATORY DATA: Labs show hemoglobin 8.7. Creatinine is 3.2. ASSESSMENT AND PLAN: Acute kidney injury, improved. Chronic kidney disease stage 4, stable. Hypokalemia, recommend potassium replacement. Hyponatremia, continue free water, increase D5W to 100 mL/h. Job ID: [id number]
[2020-05-30] MEDS: predniSONE 20 MG TAB PO SCH (11:41)
[2020-05-30] MEDS: HumaLOG 300 UNITS/3 ML VIAL SC PRN (17:43)
[2020-05-30] MEDS: Acetaminophen 325 MG TAB PO PRN (20:51)
[2020-05-31] MEDS: Dextrose 5% in Water 1,000 ML IV SCH ×4 (03:18→21:47)
[2020-05-31 05:49] LABS: Platelet Count 17 thou/uL (130-400)
[2020-05-31 06:04] LABS: ALT (SGPT) 358 U/L (8-55); AST (SGOT) 420 U/L (5-34); Albumin 2.9 g/dL (3.5-5.0); Alkaline Phosphatase 297 U/L (40-110); Anion Gap 12 mmol/L (10-20); BUN (Urea Nitrogen) 53 mg/dL (8.4-25.7); Bilirubin, Total 2.6 mg/dL (0.2-1.2); Calc. Creatinine Clearance 39 mL/min (70-130); Calcium 6.8 mg/dL (7.8-10.44); Carbon Dioxide 29 mmol/L (22-29); Chloride 109 mmol/L (98-107); Estimated GFR-MDRD 40; Globulin 2.9 g/dL (2.4-3.5); Glucose 113 mg/dL (70-105); Protein, Total 5.8 g/dL (6.0-8.3); Sodium 147 mmol/L (136-145)
[2020-05-31 06:20] LABS: Hemoglobin 9.1 g/dL (14.0-18.0); Lymphocytes 94 % (21-51); MDiff Complete? YES; Mean Corpuscular HGB CONC 33.3 g/dL (32.0-36.0); Mean Corpuscular Volume 86.9 fL (78.0-98.0); Mean Platelet Volume 16.3 fL (7.4-10.4); Neutrophil 6 % (42-75); RBC Distribution Width 17.5 % (11.5-14.5); Red Blood Cell (RBC) Count 3.14 mill/uL (4.70-6.10)
--- NOTE | 2020-05-31 06:22 | PDOC.FM ---
- Subjective Subjective: No acute overnight events. He does endorse some bleeding in his mouth this morning. He denies any dizziness, lightheadedness, chest pain, abd pain, SOB, or bleeding from other sites. - Objective Vital Signs & Weight: Vital Signs (12 hours) Temp Pulse Resp BP Pulse Ox 05/31/20 00:00 98.3 F 69 20 134/78 93 L 05/30/20 20:02 98.0 F 72 20 140/97 H 100 05/30/20 20:00 100 Weight Admit Weight 77.9 kg Weight 71.469 kg Most Recent Monitor Data Heart Rate from ECG 78 NIBP 110/68 NIBP BP-Mean 82 Respiration from ECG 22 SpO2 100 I&O: 05/29/20 05/30/20 05/31/20 06:59 06:59 06:59 Intake Total 854 572 9174 Output Total 2050 2550 1350 Balance -1450 -1650 650 Result Diagrams: 05/31/20 05:26 05/31/20 05:26 Phys Exam - Physical Examination Constitutional: NAD HEENT: moist MMs oral petechiae Respiratory: clear to auscultation bilateral Cardiovascular: RRR, no significant murmur Gastrointestinal: soft, non-tender, no distention, positive bowel sounds Musculoskeletal: no edema, pulses present Neurological: non-focal, moves all 4 limbs Deviation from normal: oriented to self, location, year Deviation from normal: focal area of bruising on LUE, no bleeding from previous central line site -: no additional bleeding noted on skin exam, few skin tears on UE Dx/Plan - Plan Plan: s/p ROSC Septic shock versus exacerbation of Still's disease No longer in shock state, although he is still recovering from the end-organ effects of this event as below. Suspected to be due to exacerbation of his Still's disease due to missing his anakinra at group home, although infection could not be ruled out on presentation. He was placed on meropenem, levophed, intubated initially. Abx have been de-escalated per pulm. Urethral discharge cx was significant for presumptive emiliano albicans. Levophed was discontinued on 05/26. Final blood cultures negative. - Dr. Nickerson, infectious disease, following, appreciate recs - Pulm following, appreciate recs - continue to monitor vitals Pancytopenia Suspect bone marrow suppression due to severe hypotension, pressors while in shock. Platelets dropped further this AM from 30s to 17. WBC remains very low at 1.0. Hgb stable at 9.1. - will stop eliquis this AM due to platelets in severe range with risk of spontaneous bleeding - continue to monitor - neutropenic precautions - briefly discussed with heme/onc, will not formally consult at this time CARL on CKD -Cr continues down-trending -Continue to monitor UOP, Cr -Nephrology following, appreciate recs -Continue strict I/O -Has had good UOP, negative fluid balance and has returned to a wt of 74 kg Transaminitis Attributed to shock liver s/p septic shock, arrest. Liver enzymes now trending back up. - continue to monitor with CMP Hypernatremia - D5W per nephro - DC fludrocortisone as this is suspected to be a contributing factor given hypernatremia and hypokalemia - monitor labs daily Hypokalemia - Replete as needed - Discontinued fludrocortisone as above Adult Still's disease - DC fludrocortisone as above, will continue oral prednisone - Continue home anakinra Aspiration s/p Extubation, 2/2 vomiting - extubated - resting comfortably on RA - Pulm Dr. Styles consulted. Appreciate recs HTN Anti-hypertensives held 2/2 hypotension. BP is improving -continue to monitor HLD -aware HFrEF - last ECHO 02/2020: EF 40-45%, grade 1 of 3 diastolic dysfunction T2DM - Glucose check ACHS - Mild SSI - Glucagon/D50 if hypoglycemic - BID NPH, continue to titrate up as needed BPH - Previously holding tamsulosin 2/2 hypotension, consider resuming in setting of some retention overnight History of DVT in R popliteal vein diagnosed on 02/28/2020 - was on home xarelto of 10mg daily, but not recommended with GFR < 30 - Therapeutic lovenox discontinued due to low platelets - eliquis held at this time due to severe thrombocytopenia with increased risk of spontaneous bleeding - continue to monitor for signs of DVT or PE Addendum - Attending - Attending Attestation Date/Time: 05/31/20 4131 I personally evaluated the patient and discussed the management with Dr. Schmitt. I agree with the History, Examination, Assessment and Plan documented above with any addition or exceptions noted below. Pt remains neutropenic, thrombocytopenic. On prednisone, anakinra. Appreciate specialist recs. No active bleeding at this time.
[2020-05-31] MEDS ORDERED: Potassium Chloride 20 MEQ TAB PO SCH (06:49)
[2020-05-31] MEDS: Cefdinir 300 MG CAP PO SCH (09:06)
[2020-05-31] MEDS: Calcium Carbonate 500 MG ChewTAB PO SCH (09:06)
[2020-05-31] MEDS: Pantoprazole 40 MG VIAL IVP SCH (09:07)
[2020-05-31] MEDS: NPH, Human Insulin Isophane 300 UNIT/3 ML VIAL SC SCH ×2 (09:12→20:20)
[2020-05-31] MEDS: ANAKINRA SC SCH (09:13)
[2020-05-31 10:06] LABS: Magnesium 1.3 mg/dL (1.6-2.6); Phosphorus 3.4 mg/dL (2.3-4.7)
--- NOTE | 2020-05-31 11:25 | PRG ---
DATE OF SERVICE: 05/31/2020 SUBJECTIVE: This 60-year-old gentleman is being seen for acute kidney injury. The patient denied nausea, vomiting or chest pain. OBJECTIVE: GENERAL: The patient is awake and alert. VITAL SIGNS: Pulse 65, breathing 16, and blood pressure 122/69. HEENT: Head normocephalic and atraumatic. Eyes intact, no ulcers. Nose intact, no ulcers. Ears intact, no ulcers. NECK: Supple. No JVD. CHEST: Symmetrical and clear. CARDIOVASCULAR: Shows S1 and S2, no rub, no murmur. GASTROINTESTINAL: Abdomen is soft, bowel sounds positive. EXTREMITIES: Show no edema or ulcers. SKIN: Shows no rash or petechiae. MUSCULOSKELETAL: Shows no joint swelling or stiffness. GENITOURINARY: Shows no Napier or CVA tenderness. NEUROLOGIC: Motor intact. Cranial nerves intact. LABORATORY DATA: Hemoglobin 9.1 and creatinine is 2. IMPRESSION: Acute kidney injury, improved. Chronic kidney disease, stage 3, stable. Hypernatremia, increase D5 water to 125 an hour. Hypokalemia, recommend high potassium diet. Hypomagnesemia, recommend 1 g of mag sulfate IV. Medication based on GFR appropriate. Job ID: [id number]
[2020-05-31] MEDS: predniSONE 20 MG TAB PO SCH (12:54)
[2020-05-31] MEDS ORDERED: Magnesium Oxide 400 MG TAB PO SCH (13:00)
--- NOTE | 2020-05-31 15:13 | PRG ---
DATE OF SERVICE: 05/31/2020 SUBJECTIVE: Mr. Knight is awake. He has very prompt and correct responses to all my questions. He has this sort of a pattern and somewhat choreiform movements of the upper extremities, touching his head and then touching the sheets of the bed and his clothing and back and forth. Sometimes he has perseverance in his movements and he takes time to follow some commands. He denies any respiratory symptoms or abdominal pain and did not report any urinary symptoms. OBJECTIVE: VITAL SIGNS: He has been afebrile. BP 119/69, heart rate 84, respiratory rate 14, O2 saturation 100% on room air. HEENT: Kind of fine scaling of the skin of the facial area. Ocular movements conjugate. Pupils are equal, somewhat constricted. LUNGS: Symmetric, clear breath sounds. HEART: S1, S2, regular rate. ABDOMEN: Not distended or tender. The bladder may be distended though. He has what looks like some incontinence, so he may have overflow incontinence. EXTREMITIES: Able to move extremities. A little bit of stiffness as noted before. LABORATORY DATA: His creatinine is down from 4.9 to 2.06 and bilirubin is up to 2.6, which is down from admission. AST is down to 420, ALT is down to 358, alkaline phosphatase stable at 297, albumin 2.9 which is up. Microbiology, the only thing we have is genital swab. Also the blood cultures on admission were negative. IMAGING: There is a chest x-ray from admission. No further imaging has been completed and he had a previous abdomen and pelvis CT from February, which showed noncomplicated sigmoid diverticulitis. ASSESSMENT AND DISCUSSION: Adult Still disease/rheumatoid arthritis, recurrent episodes of sepsis like presentation, sometimes with two infections, sometimes just with inflammatory process without culture positivity or other evidence of infection, presumably due to exacerbation of the underlying inflammatory process associated with discontinuation of his anakinra and prednisone either at home or in the intermediate. This time, he presented with sepsis again and up in the ICU he was hypotensive and all the cultures are negative. He is currently receiving prednisone and he is on cefdinir. His kidney function is improving. He had marked elevation in liver function tests. I am not sure if this was liver, but probably was, could be related to hypotension and centrilobular ischemia. One thing that bothers me is the previous report of diverticulitis in the February imaging study and that may have to be repeated when his creatinine improves further with contrast to make sure that there is not yet disclosed persistence of inflammatory process in the rectosigmoid region. These choreiform movements, they are kind of unusual. I do not know if he sustained some brain damage from the episode of hypotension. May need to have an MRI of his brain when he stabilizes further or have a Neurology evaluation. Job ID: [id number]
[2020-05-31] MEDS ORDERED: Magnesium 2 GM/50 ML 2 GM in Premix Bag 1 BAG IVPB SCH (15:30)
[2020-06-01] MEDS: Dextrose 50% Abboject 50 ML SYRINGE IVP PRN ×2 (05:31→11:43)
[2020-06-01] MEDS: Dextrose 5% in Water 1,000 ML IV SCH ×3 (05:48→20:24)
[2020-06-01 06:47] LABS: ALT (SGPT) 199 U/L (8-55); AST (SGOT) 119 U/L (5-34); Albumin 2.8 g/dL (3.5-5.0); Alkaline Phosphatase 279 U/L (40-110); Anion Gap 14 mmol/L (10-20); BUN (Urea Nitrogen) 32 mg/dL (8.4-25.7); Calc. Creatinine Clearance 61 mL/min (70-130); Calcium 6.5 mg/dL (7.8-10.44); Carbon Dioxide 24 mmol/L (22-29); Chloride 105 mmol/L (98-107); Estimated GFR-MDRD 67; Globulin 2.8 g/dL (2.4-3.5); Glucose 118 mg/dL (70-105); Magnesium 1.4 mg/dL (1.6-2.6); Protein, Total 5.6 g/dL (6.0-8.3); Sodium 140 mmol/L (136-145)
[2020-06-01 06:50] LABS: Hemoglobin 10.7 g/dL (14.0-18.0); Mean Corpuscular HGB CONC 32.7 g/dL (32.0-36.0); Mean Corpuscular Hemoglobin 28.1 pg (27.0-31.0); Mean Corpuscular Volume 85.9 fL (78.0-98.0); Mean Platelet Volume 17.1 fL (7.4-10.4); Platelet Count 16 thou/uL (130-400); RBC Distribution Width 17.3 % (11.5-14.5); White Blood Cell (WBC) Count 0.8 thou/uL (4.8-10.8)
[2020-06-01 06:53] LABS: Lymphocytes 98 % (21-51); MDiff Complete? YES; Monocytes 2 % (0-10); Nucleated RBC 1 % (0); Platelet Morphology Comment Appears Decreased
[2020-06-01 06:56] LABS: Potassium 2.9 mmol/L (3.5-5.1)
[2020-06-01] MEDS ORDERED: Potassium Chloride 40 MEQ in Sodium Chloride 0.9% 250 ML 250 ML IVPB SCH ×2 (08:00→14:45)
[2020-06-01] MEDS ORDERED: Magnesium 2 GM/50 ML 2 GM in Premix Bag 1 BAG IVPB SCH (08:00)
[2020-06-01] MEDS ORDERED: NPH, Human Insulin Isophane 300 UNIT/3 ML VIAL SC SCH (09:15)
[2020-06-01] MEDS: Calcium Carbonate 500 MG ChewTAB PO SCH (09:21)
[2020-06-01] MEDS: Pantoprazole 40 MG VIAL IVP SCH (09:22)
[2020-06-01] MEDS: NPH, Human Insulin Isophane 300 UNIT/3 ML VIAL SC SCH ×2 (09:25→20:15)
--- NOTE | 2020-06-01 09:30 | RAD ---
Chest one view HISTORY: Neutropenic fever. COMPARISON: 05/24/2020. FINDINGS: Cardiac silhouette is magnified and upper limits of normal in size. Shallow inspiration acc entuates pulmonary markings. Right hemidiaphragm remains slightly elevated. Calcified granulomata are consistent with healed granulomatous disease. No lobar consolidation or evidence of pneumothorax. IMPRESSION : Chronic-type findings are stable. No active infiltrate is evident.
--- NOTE | 2020-06-01 09:39 | PDOC.FM ---
- Subjective Subjective: Developed fever to 100.8F this AM. Patient alert but is not verbalizing this morning. Shakes his head "no" when asked if he has pain anywhere. He is reaching for his groin when asked if anything is bothering him. Pur-wick was placed overnight. Unable to obtain further ROS due to patient not verbalizing. - Objective Vital Signs & Weight: Vital Signs (12 hours) Temp Pulse Resp BP Pulse Ox 06/01/20 08:20 100.4 F H 131 H 20 100/54 L 99 06/01/20 06:34 100.8 F H 109 H 99 06/01/20 05:30 100.9 F H 112 H 20 127/78 100 06/01/20 00:47 99.2 F 112 H 18 133/77 95 Weight Admit Weight 77.9 kg Weight 72.484 kg Most Recent Monitor Data Heart Rate from ECG 78 NIBP 110/68 NIBP BP-Mean 82 Respiration from ECG 22 SpO2 100 I&O: 05/31/20 06/01/20 06/02/20 06:59 06:59 06:59 Intake Total 2000 900 Output Total 1350 2750 Balance 650 -1850 Result Diagrams: 06/01/20 13:58 06/01/20 13:58 Phys Exam - Physical Examination appears uncomfortable oral petechiae Respiratory: no wheezing, no rales upper airway sounds, otherwise CTAB Cardiovascular: no significant murmur tachycardia Gastrointestinal: soft, non-tender, no distention, positive bowel sounds exam: purwick in place, no lesions or discharge noted Musculoskeletal: no edema, pulses present Neurological: moves all 4 limbs not cooperative with exam Deviation from normal: alert, not verbally answering questions Deviation from normal: few upper and lower ext skin tears, no diffuse bruising/petechiae Dx/Plan - Plan Plan: Neutropenic fever Neutropenic for several days with pancytopenia s/p shock, arrest, ROSC, pressors. Now with fever to 100.8F this AM for greater than 1 hour. Has been on several agents for empiric coverage of infection during this admission, including linezolid, micafungin, meropenem, omnicef. Blood cx drawn on admission negative. Urethral discharge cx was significant for presumptive emiliano albicans on admission. Hx resistant klebsiella infections in the past. - discussed with ID, Dr. Nickerson this AM, appreciate recs - allergic to vancomycin - started cefepime, micafungin, daptomycin today - continue to monitor vitals closely - f/u CT chest, abd, pelvis - LE dopplers negative for DVT 06/01 - tylenol W[place] q8h PRN for fever - will start stress dose steroids with hydrocortisone, not tolerating PO intake right now - f/u labs: DIC panel, LDH, haptoglobin, retic count - will consult heme/onc, appreciate recs s/p ROSC Septic shock versus exacerbation of Still's disease No longer in shock state, although he is still recovering from the end-organ ef fects of this event as below. Suspected to be due to exacerbation of his Still's disease due to missing his anakinra [place] [facility], although infection could not be ruled out on presentation. He was placed on meropenem, levophed, intubated initially. Abx de-escalated to omnicef, although he now has increasing concern for infection in the setting of neutropenic fever, as above. Patient apparently refused prednisone yesterday, worsening exacerbation of Still's disease could also be contributing to current clinical picture. - Dr. Nickerson, infectious disease, following, appreciate recs - Pulm following, appreciate recs - continue to monitor vitals - stress dose steroids as above Pancytopenia Suspect bone marrow suppression due to severe hypotension, pressors while in s hock. Platelets remain at 16. WBC remains very low at 0.8. Hgb improved to 10.7. - stopped eliquis 05/31 due to platelets in severe range with risk of spontaneous bleeding - continue to monitor - neutropenic precautions - consulted heme/onc Dr. Burger, appreciate recs CARL on CKD, improving -Cr continues down-trending -Continue to monitor UOP, Cr -Nephrology signed off today -Continue strict I/O -Has had good UOP, negative fluid balance and has returned to a wt of 74 kg Transaminitis Attributed to shock liver s/p septic shock, arrest. Liver enzymes beginning to trend down again. - continue to monitor with CMP Hypernatremia - D5W per nephro - DC fludrocortisone 05/30 as this is suspected to be a contributing factor given hypernatremia and hypokalemia - monitor labs daily Hypokalemia - Replete as needed - Discontinued fludrocortisone as above Hypomagnesemia - Continue to replete as needed - Check with AM labs until back into normal range as may also be contributing to low K Adult Still's disease - DC fludrocortisone as above, will continue oral prednisone - Continue home anakinra s/p Extubation, 2/2 aspiration/vomiting - extubated several days ago - airway stable at this time - resting comfortably on RA - Pulm Dr. Styles consulted. Appreciate recs HTN Anti-hypertensives held 2/2 hypotension. HLD -aware HFrEF - last ECHO 02/2020: EF 40-45%, grade 1 of 3 diastolic dysfunction T2DM - Glucose check ACHS - Mild SSI - Glucagon/D50 if hypoglycemic - decreased insulin this AM due to poor oral intake, hypoglycemia BPH - tamsulosin held 2/2 hypotension History of DVT in R popliteal vein diagnosed on 02/28/2020 - was on home xarelto of 10mg daily, but not recommended with GFR < 30 - Therapeutic lovenox discontinued due to low platelets - eliquis held at this time due to severe thrombocytopenia with increased risk of spontaneous bleeding - continue to monitor for signs of DVT or PE Addendum - Attending - Attending Attestation Date/Time: 06/01/20 2625 I personally evaluated the patient and discussed the management with Dr. Schmitt. I agree with the History, Examination, Assessment and Plan documented above with any addition or exceptions noted below. This morning the patient did not want to speak with me. Nursing reports he refused to eat and refused oral medications yesterday. Now has neutropenic fever. Will broaden antibiotics. Reculture and image pt to look for signs of infection. Thrombocytopenia worsening. Getting dic panel, consulting hem/onc. Prognosis is poor. Will also get palliative involved again.
[2020-06-01] MEDS ORDERED: DAPTOmycin 500 MG VIAL SLOW IVP SCH (10:00)
[2020-06-01] MEDS ORDERED: MEROPENEM 1 GM/50 ML 1 GM in Premix Bag 1 BAG IVPB SCH (10:00)
--- NOTE | 2020-06-01 11:53 | ULT ---
ULTRASOUND DOPPLER DUPLEX VENOUS BILATERAL LOWER EXTREMITIES: DATE: 06/01/2020 HISTORY: Neutropenic fever and bedridden status. TECHNIQUE: Grayscale, color-flow, and spectral analysis, of major veins of bilateral lower extremities. FINDINGS: Technically difficult exam because of patient combativeness and altered mental status. There is demonstration of blood flow with normal compressibility, of the bilateral common femoral, pr ofunda femoral, greater saphenous, femoral, popliteal, and posterior tibial, veins. Questionable minimal soft tissue edema bilaterally. IMPRESSION: 1. No deep venous thrombosis of bilateral lower extremities. 2. Minimal bilateral lower extremity soft tissue edema.
[2020-06-01] MEDS ORDERED: DAPTOMYCIN SLOW IVP SCH (12:00)
[2020-06-01] MEDS ORDERED: SODIUM CHLORIDE 0.9% SLOW IVP SCH (12:00)
[2020-06-01] MEDS: ANAKINRA SC SCH (12:08)
[2020-06-01] MEDS: Micafungin 100 MG in Sodium Chloride 0.9% 100 ML IVPB SCH (12:09)
--- NOTE | 2020-06-01 12:52 | PRG ---
DATE OF SERVICE: 06/01/2020 SUBJECTIVE: A 60-year-old male, being seen for acute kidney injury. The patient denies any nausea, vomiting, or chest pain. OBJECTIVE: General: The patient is awake and alert. Vital Signs: Temperature 102, pulse , blood pressure 98/64. HEENT: Head normocephalic and atraumatic. Eyes intact, no ulcers. Nose intact, no ulcers. Ears intact, no ulcers. Neck: Supple. No JVD. Chest: Symmetrical and clear. Cardiovascular: Shows S1 and S2, no rub, no murmur. Gastrointestinal: Abdomen is soft, bowel sounds positive. Extremities: Show no edema or ulcers. Skin: Shows no rash or petechiae. Musculoskeletal: Shows no joint swelling or stiffness. Genitourinary: Shows no Napier or CVA tenderness. Neurologic: Motor intact. Cranial nerves intact. ASSESSMENT AND PLAN: Acute kidney injury, improved. Hypokalemia, recommend potassium replacement. Hypomagnesemia, recommend 1 g of magnesium sulfate IV. No indication for dialysis. I will sign off on this patient. Please reconsult as needed. Job ID: [id number]
[2020-06-01] MEDS: Acetaminophen 650 MG Suppository PR PRN ×2 (13:04→17:01)
[2020-06-01] MEDS: Cefepime 2 GM in Sodium Chloride 0.9% 100 ML IVPB SCH ×2 (13:17→23:01)
[2020-06-01] MEDS ORDERED: Hydrocortisone Sod Succ/PF 250 mg/2 ml Vial SLOW IVP SCH (13:30)
[2020-06-01] MEDS ORDERED: Iopamidol-370 76% 500 ML 1 ML ONE (13:36)
[2020-06-01] MEDS ORDERED: Cefepime 2 GM in Sodium Chloride 0.9% 100 ML IVPB SCH (14:00)
[2020-06-01] MEDS ORDERED: Hydrocortisone Sod Succ/PF 100 mg/2 ml Vial IVP SCH (14:00)
[2020-06-01 14:10] LABS: Reticulocyte Count 0.1 % (0.5-1.5)
[2020-06-01 14:19] LABS: Fibrinogen 442 mg/dL (253-463); INR-International Normal Ratio 1.3; Prothrombin Time 16.1 sec (12.0-14.7)
[2020-06-01 14:20] LABS: PTT 33.7 sec (22.9-36.1)
[2020-06-01 14:22] LABS: Anion Gap 14 mmol/L (10-20); BUN (Urea Nitrogen) 28 mg/dL (8.4-25.7); Calc. Creatinine Clearance 64 mL/min (70-130); Calcium 6.5 mg/dL (7.8-10.44); Carbon Dioxide 23 mmol/L (22-29); Chloride 105 mmol/L (98-107); Estimated GFR-MDRD 71; Glucose 117 mg/dL (70-105); Potassium 3.2 mmol/L (3.5-5.1); Sodium 139 mmol/L (136-145)
[2020-06-01 14:34] LABS: D-Dimer Test 16.85 *mcg/mL (0.27-0.43)
[2020-06-01] MEDS: Hydrocortisone Sod Succ/PF 100 mg/2 ml Vial IVP SCH (14:48)
[2020-06-01] MEDS: predniSONE 20 MG TAB PO SCH (14:49)
[2020-06-01 14:50] LABS: FSP-Qualitative ABNORMAL (Normal); FSP-Semiquantitative >=40 & <80 mcg/mL (Less than 5)
[2020-06-01 14:53] LABS: Platelet Count 16 thou/uL (130-400)
--- NOTE | 2020-06-01 14:54 | CT ---
CT abdomen and pelvis with IV contrast HISTORY: Abdominal pain. Fever. COMPARISON: 02/25/2020. FINDINGS: Minimal bilateral pleural fluid. Mild atelectasis at each lung base. Bilateral rib fracture s are partially visualized. Better detailed on CT chest performed on the same date. Tiny nonobstructing bilateral renal calculi, measuring up to 0.2 cm at the superior pole left kidney. Very mild distention of each renal collecting system and ureter is nonspecific. Phleboliths are seen outside of the course of each distal ureter. Gallbladder is surgically absent. Cysts arise from the cortex of each kidney, measuring up to 4.6 cm greatest diameter at the superior pole of the right kidney. Diverticula arise from the colon. There is subtle circumferential wall thickening of the upper sigmoi d colon, where a diverticulum is present. No free air or free fluid. Prominent degenerative changes throughout the lumbar spine. IMPRESSION : Subtle focus of colitis at the upper sigmoid colon, favored to represent recurrent non-complicated si gmoid diverticulitis. Minimal bilateral pleural fluid. Rib fractures. CT chest performed at the same time and reported sepa rately. Tiny nonobstructing bilateral renal calculi. Bilateral renal cysts.
--- NOTE | 2020-06-01 15:04 | CT ---
CT arteriogram chest with IV contrast and 3-D imaging HISTORY: Fever. Dyspnea. COMPARISON: 09/14/2019. FINDINGS: There is good contrast opacification of the pulmonary arteries and thoracic aorta with bovi ne origin of the great vessels at the aortic arch. Slightly enlarged right paratracheal lymph node is unchanged in appearance. Minimal bilateral pleural fluid and dependent atelectasis. Focal area of infiltrate-like parenchymal opacity is present within the posterior aspect of the super ior segment right upper lobe. Less pronounced infiltrate at the superior segment right lower lobe. Partially healed fractures involve the anterolateral aspect of left ribs 4-6. Nonhealed fracture invo lves the lateral aspect of right rib 5. Comminuted nonhealed intimal a displaced fracture involves the upper sternal body on the sagittal reformatted images. Findings of the partially visualized upper abdomen are better detailed on dedicated abdomen exam perf ormed at the same time. IMPRESSION : No evidence of pulmonary embolus. Mild infiltrate within the dependent aspect of the right lung, an area associated with aspiration. Cl inical correlation regarding other signs and symptoms of aspiration pneumonia on the right is required. Minimal bilateral pleural fluid. Acute appearing fractures of the right fifth rib and sternum.
--- NOTE | 2020-06-01 16:01 | PDOC.BPN ---
<Ant Mccall - Last Filed: 06/01/20 15:59> - Brief Progress Note S: Residents called to bedside as pt may have had some mental status change. Pt denies any new complaints, no pain , no concerns O: VSS, pt is A&Ox3 GCS 14, Heart has RRR, lungs CTAB, bleeding in gums worsened A/P Mental Status -improved from this AM Bleeding/thrombocytopenia A- DIC panel ordered and shows normal fibrinogen though increased degredation products and slight elevated PT, and elevated ddimer P- continue to treat infection -repeat DIC panel in AM -If bleeding increases will consider platelet transfusion -If platelet level decreases < 10,000 will consider platelet transfusion -If PT/PTT increase or fibrinogen < 50 and serious bleeding will consider FFP Diverticulitis A- evidence seen on CT scan in search for source P- continue daptomycin and cefepime -f/u ID recs Aspiration pneumonia A- evidence seen on CT scan in search for source P- continue daptomycin and cefepime -f/u ID recs <Nancy Barnes - Last Filed: 06/01/20 16:18> Addendum - Attending - Attending Attestation Date/Time: 06/01/20 1617 I personally evaluated the patient and discussed the management with Dr. Mccall. I agree with the History, Examination, Assessment and Plan documented above with any addition or exceptions noted below. Adding flagyl for full diverticulitis coverage. Consulting hematology for recs as well.
[2020-06-01 17:19] LABS: Iron Binding Capacity, Total 123 mcg/dL (261-462); Potassium 3.4 mmol/L (3.5-5.1)
[2020-06-01 17:44] LABS: Iron 60 ug/dL (65-175)
[2020-06-01] MEDS ORDERED: Acetaminophen 650 MG Suppository PR PRN (17:53)
[2020-06-01 18:25] LABS: Ferritin 13855.23 ng/mL (22-322)
[2020-06-01] MEDS: metroNIDAZOLE 500 MG TAB PO SCH (20:24)
[2020-06-02] MEDS: Hydrocortisone Sod Succ/PF 100 mg/2 ml Vial IVP SCH ×5 (00:14→23:15)
[2020-06-02 04:52] LABS: FSP-Qualitative ABNORMAL (Normal); FSP-Semiquantitative >=40 & <80 mcg/mL (Less than 5)
[2020-06-02 05:05] LABS: ALT (SGPT) 130 U/L (8-55); AST (SGOT) 40 U/L (5-34); Albumin 2.9 g/dL (3.5-5.0); Alkaline Phosphatase 263 U/L (40-110); Anion Gap 18 mmol/L (10-20); BUN (Urea Nitrogen) 30 mg/dL (8.4-25.7); Bilirubin, Total 2.9 mg/dL (0.2-1.2); Calc. Creatinine Clearance 65 mL/min (70-130); Calcium 6.9 mg/dL (7.8-10.44); Carbon Dioxide 18 mmol/L (22-29); Chloride 108 mmol/L (98-107); Estimated GFR-MDRD 73; Globulin 2.9 g/dL (2.4-3.5); Glucose 248 mg/dL (70-105); Potassium 3.8 mmol/L (3.5-5.1); Protein, Total 5.8 g/dL (6.0-8.3); Sodium 140 mmol/L (136-145)
[2020-06-02 05:07] LABS: Fibrinogen 573 mg/dL (253-463)
[2020-06-02 05:08] LABS: INR-International Normal Ratio 1.3; PTT 34.9 sec (22.9-36.1); Platelet Count 7 thou/uL (130-400); Prothrombin Time 16.5 sec (12.0-14.7); White Blood Cell (WBC) Count 0.9 thou/uL (4.8-10.8)
[2020-06-02 05:22] LABS: D-Dimer Test 12.11 *mcg/mL (0.27-0.43)
[2020-06-02 05:39] LABS: Platelet Count 7 thou/uL (130-400)
[2020-06-02 05:57] LABS: Anisocytosis SLIGHT = 6-15 cells (100X) (0-5/hpf); Elliptocytes SLIGHT = 2-5 cells (100X) (0-1/hpf); Hemoglobin 8.8 g/dL (14.0-18.0); Lymphocytes 100 % (21-51); MDiff Complete? YES; Mean Corpuscular HGB CONC 32.9 g/dL (32.0-36.0); Mean Corpuscular Hemoglobin 28.5 pg (27.0-31.0); Mean Corpuscular Volume 86.7 fL (78.0-98.0); Platelet Morphology Comment Appears Decreased; RBC Distribution Width 16.6 % (11.5-14.5); Red Blood Cell (RBC) Count 3.09 mill/uL (4.70-6.10)
[2020-06-02] MEDS: HumaLOG 300 UNITS/3 ML VIAL SC PRN ×3 (05:59→16:11)
[2020-06-02 06:04] LABS: Mean Platelet Volume 19.4 fL (7.4-10.4)
--- NOTE | 2020-06-02 06:44 | PDOC.FM ---
- Subjective Subjective: No acute events overnight, patient remained fairly stable. This AM he is answering questions, c/o sore throat and rib pain. Denies any abdominal pain or swelling. He is feeling about the same as yesterday he says. - Objective Vital Signs & Weight: Vital Signs (12 hours) Temp Pulse Resp BP Pulse Ox 06/02/20 04:48 98.1 F 114 H 20 123/76 100 06/02/20 01:05 98.2 F 114 H 20 113/67 100 06/01/20 20:23 100 06/01/20 20:09 98.0 F 114 H 20 120/72 100 Weight Admit Weight 77.9 kg Weight 69 kg Most Recent Monitor Data Heart Rate from ECG 78 NIBP 110/68 NIBP BP-Mean 82 Respiration from ECG 22 SpO2 100 I&O: 05/31/20 06/01/20 06/02/20 06:59 06:59 06:59 Intake Total 2000 900 1749 Output Total 1350 2750 1 Balance 650 -1850 1748 Result Diagrams: 06/02/20 16:05 06/02/20 04:26 Phys Exam - Physical Examination Constitutional: NAD HEENT: moist MMs erythema of pharynx without bleeding, oral thrush, dried blood lips Neck: supple upper airway sounds Cardiovascular: no significant murmur tachycardia Gastrointestinal: soft, non-tender Musculoskeletal: no edema, pulses present chest TTP over rib fractures Neurological: moves all 4 limbs Psychiatric: A&O x 3 Skin: no rash Dx/Plan - Plan Plan: Neutropenic fever Neutropenic for several days with pancytopenia s/p shock, arrest, ROSC, pressors. Began to fever yesterday, Tmax 102F. Now afebrile overnight. Has been on several agents for empiric coverage of infection during this admission, including linezolid, micafungin, meropenem, omnicef. Blood cx drawn on admission negative. Urethral discharge cx was significant for presumptive emiliano albicans on admission. Hx resistant klebsiella infections in the past. - discussed with ID, Dr. Nickerson this AM, appreciate recs - allergic to vancomycin - started cefepime, micafungin, daptomycin 06/01 - continue to monitor vitals closely - LE dopplers negative for DVT 06/01 - CTA chest, CT abd pelvis significant for aspiration pneumonia, recurrent diverticulitis - tylenol [place] q8h PRN for fever - continue stress dose steroids - will consult heme/onc, appreciate recs Pancytopenia Severe thrombocytopenia Attributed to bone marrow suppression due to shock, arrest, pressors initially. Worsening thrombocytopenia, persistent neutropenia. Hgb has been low but fairly stable above transfusion threshold. - stopped eliquis 05/31 due to platelets in severe range with risk of spontaneous bleeding - continue to monitor - neutropenic precautions - consulted heme/onc Dr. Burger 06/01, appreciate recs - DIC panel 06/01 with elevated fibrinogen degradation pdts, repeat this AM with elevated degradation pdts and elevated fibrinogen, not consistent with DIC although suspect his clinical picture will continue to change quickly - platelet tranfusion 06/02 due to platelet <10 s/p ROSC Septic shock versus exacerbation of Still's disease No longer in shock state, although he is still recovering from the end-organ effects of this event as below. Suspected to be due to exacerbation of his Still's disease due to missing his anakinra at custodial, although infection could not be ruled out on presentation. He was placed on meropenem, levophed, intubated initially. Abx de-escalated to omnicef, although he now has increasing concern for infection in the setting of neutropenic fever, as above. Patient apparently refused prednisone 05/31, worsening exacerbation of Still's disease could also be contributing to current clinical picture. - Dr. Nickerson, infectious disease, following, appreciate recs - Pulm following, appreciate recs - continue to monitor vitals - stress dose steroids as above CARL on CKD, resolving Appears CARL is resolving, Cr returned to baseline and adequate UOP. Initially with 10kg weight gain 2/2 fluid retention, but has now lost all of this weight. - continue to monitor cr, UOP - nephro signed off 06/01 Transaminitis Attributed to shock liver s/p septic shock, arrest. Liver enzymes beginning to trend down again. - continue to monitor with CMP Hypernatremia, resolved - DC D5W, switch to LR and continue to monitor electrolytes closely - DC fludrocortisone 05/30 as this is suspected to be a contributing factor given hypernatremia and hypokalemia - monitor labs daily Hypokalemia, resolved - Replete as needed - Discontinued fludrocortisone as above Hypomagnesemia - Continue to replete as needed - Check with AM labs until back into normal range as may also be contributing to low K Adult Still's disease - DC fludrocortisone as above, will continue oral prednisone - Continue home anakinra s/p Extubation, 2/2 aspiration/vomiting - extubated several days ago - airway stable at this time - resting comfortably on RA - Pulm Dr. Styles consulted. Appreciate recs HTN Anti-hypertensives held 2/2 hypotension. HLD -aware HFrEF - last ECHO 02/2020: EF 40-45%, grade 1 of 3 diastolic dysfunction T2DM - Glucose check ACHS - Mild SSI - Glucagon/D50 if hypoglycemic - decreased insulin this AM due to poor oral intake, hypoglycemia BPH - tamsulosin held 2/2 hypotension History of DVT in R popliteal vein diagnosed on 02/28/2020 - was on home xarelto of 10mg daily, but not recommended with GFR < 30 - Therapeutic lovenox discontinued due to low platelets - eliquis held at this time due to severe thrombocytopenia with increased risk of spontaneous bleeding - US and CTA 06/01 without signs of DVT or PE - continue to monitor for recurrent symptoms
[2020-06-02] MEDS: NPH, Human Insulin Isophane 300 UNIT/3 ML VIAL SC SCH ×2 (09:11→21:05)
[2020-06-02] MEDS: metroNIDAZOLE 500 MG TAB PO SCH ×3 (09:11→21:06)
[2020-06-02] MEDS: Pantoprazole 40 MG VIAL IVP SCH (09:12)
[2020-06-02] MEDS: Micafungin 100 MG in Sodium Chloride 0.9% 100 ML IVPB SCH (09:17)
[2020-06-02] MEDS: ANAKINRA SC SCH (09:20)
[2020-06-02 10:58] LABS: Reference Lab Name LABCORP
[2020-06-02 10:59] LABS: Ref Lab Test Ordered IL2 RECEPTOR ALPHA
[2020-06-02] MEDS: Dextrose 5% in Water 1,000 ML IV SCH ×2 (12:02→14:06)
[2020-06-02] MEDS: Cefepime 2 GM in Sodium Chloride 0.9% 100 ML IVPB SCH ×2 (12:04→23:15)
[2020-06-02] MEDS: SODIUM CHLORIDE 0.9% SLOW IVP SCH (12:05)
[2020-06-02] MEDS: DAPTOMYCIN SLOW IVP SCH (12:05)
--- NOTE | 2020-06-02 14:24 | PRG ---
DATE OF SERVICE: 06/02/2020 Mr. Knight has sepsis and appeared to be developing a DIC-type picture. He is, however, not having any significant bleeds, and in fact, his fibrinogen level is coming up. We will continue to follow, and I have asked for input from Heme/Onc. Dr. Nickerson is also following with us as well. Job ID: [id number]
[2020-06-02 16:19] LABS: Hemoglobin 8.9 g/dL (14.0-18.0); Platelet Count 37 thou/uL (130-400)
[2020-06-02] MEDS: Lactated Ringer's 1,000 ML IV SCH (16:35)
[2020-06-02] MEDS: Nystatin 500,000 UNITS/5 ML UDCUP SSW SCH ×2 (16:35→21:08)
--- NOTE | 2020-06-02 19:54 | CON ---
DATE OF CONSULTATION: REASON FOR CONSULT: Pancytopenia. HISTORY OF PRESENT ILLNESS: Mr. Knight is a 60-year-old gentleman with Still's disease and a complicated medical history, who presented to the [facility] room on May 23 with symptoms of fever and altered mental status. He had just recently been discharged from the hospital with sepsis. In the ED, he vomited and apparently aspirated. He required intubation and then had asystole. He had CPR for approximately 3 minutes with ROSC. He was admitted for septic shock and started on meropenem for his Klebsiella resistant UTI from his prior admission. He also had received linezolid, micafungin. The patient is on Anakinra for his Still's disease. There was some question that he did not receive that when he returned to his long-term. The medication was resumed on May 27 here. Throughout the course of his hospital stay, he has been thrombocytopenic, progressively worsening over the last several days with a current count of 7000. His hemoglobin has been stable in the 8 and his white count was normal on arrival, but has slowly progressed down and is currently neutropenic with a white count of 0.9. The patient has recovered from his altered mental status and is extubated and was seen on the floor. He is alert and oriented and answers questions appropriately. He did develop a fever yesterday as high as 101, but has had none today. He has had a recent abdominal and pelvis CT, which showed a subtle focus of colitis in the upper sigmoid colon. He had a CT angio as well, which was negative for pulmonary emboli. He has a history of DVT and has been on Xarelto, which has been held since his platelets have dropped below 50. PAST MEDICAL HISTORY: 1. Adult Still's disease. 2. Rheumatoid arthritis, diabetes type 2, chronic UTIs, BPH. 3. History of DVT. 4. Hypertension. 5. Adrenal insufficiency. PAST SURGICAL HISTORY: 1. Cholecystectomy. 2. Shoulder repair. 3. Knee surgery. 4. Neck fusion. ALLERGIES: VANCOMYCIN. CURRENT MEDICATIONS: 1. Cefepime 2 g b.i.d. 2. Daptomycin daily. 3. Hydrocortisone 50 mg q.6 hours. 4. Humalog. 5. Flagyl 500 mg t.i.d. 6. Micafungin 100 mg daily. 7. Protonix. 8. Anakinra syringe daily. FAMILY HISTORY: Noncontributory. SOCIAL HISTORY: Lives at [facility]. No history of tobacco, alcohol, or illicit drug use. REVIEW OF SYSTEMS: A 10-point review of systems is negative. PHYSICAL EXAMINATION: VITAL SIGNS: Temperature is 98.6, pulse is 87, respiratory rate 16, BP is 116/66. He is 100% on room air. GENERAL: This is a well-developed, well-nourished male, in no acute distress. HEENT: Normocephalic, atraumatic. Pupils are equal and reactive to light. He has dry lips. NECK: Supple. CV: Regular rate and rhythm. LUNGS: Clear. ABDOMEN: Soft and nontender. Bowel sounds are positive. EXTREMITIES: He has 1+ edema in his lower extremities. SKIN: No rash. HEMATOLOGICAL: There is no petechiae or purpura. NEUROLOGICAL: Nonfocal. PERTINENT LABORATORY DATA AND X-RAYS: Current WBCs 1.0, hemoglobin 9.1, hematocrit 27.3, platelet count 17,000, 6% neutrophils, 94% lymphocytes. PT 16.5, INR is 1.3, PTT is 34.9. Fibrinogen is 573. D-dimer is 12.11. Sodium 140, potassium 3.8, chloride 108, CO2 is 18, BUN is 30, creatinine 1.23, calcium is 6.9, bilirubin is 2.9. AST is 40, ALT is 130, alkaline phosphatase is 263. Serum total protein is 5.8, albumin 2.9, globulin 2.9. Ferritin is 13,855, TIBC is 123. Radiology per HPI. ASSESSMENT: 1. Pancytopenia. 2. Septic shock, resolved. 3. Likely fungal infection. 4. Adult Still's disease. DISCUSSION: Case has been evaluated and discussed in detail with Dr. Burger. The patient has become pancytopenic throughout this hospital stay. It is likely due to his septic shock and/or fungal infection. He does have abnormalities on his differential including lymphocytosis. Flow cytometry has been sent and is currently pending. He is on stress dose steroids and anakinra has been resumed. He has no evidence of bleeding, although I would recommend transfusion for platelets less than 10 or any bleeding. His hemoglobin has been stable. He has elevated ferritin consistent with inflammatory process. No intervention required for the ferritin. Plan to continue to watch his white count closely. Continue the antibiotics and neutropenic precautions and hopefully they will improve over the next several days. Thank you for the consult. Job ID: [id number] ERICK
[2020-06-03] MEDS: Hydrocortisone Sod Succ/PF 100 mg/2 ml Vial IVP SCH ×3 (05:20→18:18)
[2020-06-03] MEDS: Lactated Ringer's 1,000 ML IV SCH ×2 (05:22→18:19)
[2020-06-03] MEDS: HumaLOG 300 UNITS/3 ML VIAL SC PRN (05:29)
--- NOTE | 2020-06-03 06:29 | PDOC.FM ---
- Subjective Subjective: No acute overnight events. This AM, patient continues to complain of sore throat. He denies fever, chills. Denies any SOB, abdominal pain, swelling. - Objective Vital Signs & Weight: Vital Signs (12 hours) Temp Pulse Resp BP BP Pulse Ox 06/03/20 04:32 98.4 F 105 H 16 125/71 100 06/02/20 23:23 98.5 F 101 H 16 109/79 100 06/02/20 20:24 98.1 F 101 H 18 105/73 100 Weight Admit Weight 77.9 kg Weight 69.3 kg Most Recent Monitor Data Heart Rate from ECG 78 NIBP 110/68 NIBP BP-Mean 82 Respiration from ECG 22 SpO2 100 I&O: 06/01/20 06/02/20 06/03/20 06:59 06:59 06:59 Intake Total 900 1749 2729.5 Output Total 2750 1 350 Balance -1850 1748 2379.5 Result Diagrams: 06/02/20 16:05 06/02/20 04:26 Phys Exam - Physical Examination Constitutional: NAD HEENT: moist MMs oral thrush, white lesions on buccal mucosa erythema and purulent drainage of posterior pharynx Neck: supple Respiratory: no rales upper airway sounds Cardiovascular: no significant murmur tachycardia Gastrointestinal: soft, non-tender, no distention, positive bowel sounds Musculoskeletal: no edema, pulses present Neurological: moves all 4 limbs Psychiatric: A&O x 3 Skin: no rash Dx/Plan - Plan Plan: Neutropenic fever, improved Has now been afebrile x 2 days. Neutropenic for several days with pancytopenia s/p shock, arrest, ROSC, pressors. Has been on several agents for empiric coverage of infection during this admission, including linezolid, micafungin, meropenem, omnicef. Blood cx drawn on admission negative. Urethral discharge cx was significant for presumptive emiliano albicans on admission. Hx resistant klebsiella infections in the past. - discussed with ID, Dr. Nickerson, appreciate recs - allergic to vancomycin - started cefepime, micafungin, daptomycin 06/01 - blood culture 1/2 prelim pos for yeast -- f/u ID recs for continuing broad spectrum abx vs more targeted therapy - continue to monitor vitals closely - LE dopplers negative for DVT 06/01 - CTA chest, CT abd pelvis significant for aspiration pneumonia, recurrent diverticulitis - tylenol [place] q8h PRN for fever - continue stress dose steroids - consulted heme/onc, appreciate recs Pancytopenia Severe thrombocytopenia Attributed to bone marrow suppression due to shock, arrest, pressors initially. Worsening thrombocytopenia, persistent neutropenia. Hgb has been low but fairly stable above transfusion threshold. - stopped eliquis 05/31 due to platelets in severe range with risk of spontaneous bleeding - continue to monitor - neutropenic precautions - consulted heme/onc Dr. 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 Flow cytometry was ordered and is suggestive of this. They are planning bone marrow biopsy to confirm. - appreciate heme/onc recs - f/u bone marrow biopsy results s/p ROSC Septic shock versus exacerbation of Still's disease No longer in shock state, although he is still recovering from the end-organ effects of this event as below. Suspected to be due to exacerbation of his Still's disease due to missing his anakinra at half-way, although infection could not be ruled out on presentation. He was placed on meropenem, levophed, intubated initially. Abx de-escalated to omnicef, although he now has increasing concern for infection in the setting of neutropenic fever, as above. Patient apparently refused prednisone 05/31, worsening exacerbation of Still's disease could also be contributing to current clinical picture. - Dr. Nickerson, infectious disease, following, appreciate recs - Pulm following, appreciate recs - continue to monitor vitals - stress dose steroids as above Oral thrush, presumed strep throat Has been on micafungin and nystatin SSW. Physical exam today appears consistent with a strep throat infection. - currently on cefepime as above which should offer coverage of streptococcal species - consider strep test, cx if symptoms persist or worsen - added viscous xylocaine for patient comfort CARL on CKD, resolving Appears CARL is resolving, Cr returned to baseline and adequate UOP. Initially with 10kg weight gain 2/2 fluid retention, but has now lost all of this weight. - continue to monitor cr, UOP - nephro signed off 06/01 Transaminitis Attributed to shock liver s/p septic shock, arrest. Liver enzymes beginning to trend down again. - continue to monitor with CMP Hypernatremia, resolved - DC D5W, switch to LR and continue to monitor electrolytes closely - DC fludrocortisone 05/30 as this is suspected to be a contributing factor given hypernatremia and hypokalemia - monitor labs daily Hypokalemia, resolved - Replete as needed - Discontinued fludrocortisone as above Hypomagnesemia, resolved - Continue to replete as needed Adult Still's disease - stress dose steroids due to acute processes as above - Continue home anakinra s/p Extubation, 2/2 aspiration/vomiting - extubated several days ago - airway stable at this time - resting comfortably on RA - Pulm Dr. Styles consulted. Appreciate recs HTN Anti-hypertensives held 2/2 hypotension. HLD -aware HFrEF - last ECHO 02/2020: EF 40-45%, grade 1 of 3 diastolic dysfunction T2DM - Glucose check ACHS - Mild SSI - Glucagon/D50 if hypoglycemic - decreased insulin this AM due to poor oral intake, hypoglycemia BPH - tamsulosin held 2/2 hypotension History of DVT in R popliteal vein diagnosed on 02/28/2020 - was on home xarelto of 10mg daily, but not recommended with GFR < 30 - Therapeutic lovenox discontinued due to low platelets - eliquis held at this time due to severe thrombocytopenia with increased risk of spontaneous bleeding - US and CTA 06/01 without signs of DVT or PE - continue to monitor for recurrent symptoms
[2020-06-03] MEDS: NPH, Human Insulin Isophane 300 UNIT/3 ML VIAL SC SCH ×2 (08:47→21:30)
[2020-06-03] MEDS: metroNIDAZOLE 500 MG TAB PO SCH ×2 (08:53→15:23)
[2020-06-03] MEDS: Nystatin 500,000 UNITS/5 ML UDCUP SSW SCH ×4 (08:58→21:29)
[2020-06-03] MEDS: Micafungin 100 MG in Sodium Chloride 0.9% 100 ML IVPB SCH (08:58)
[2020-06-03] MEDS: Pantoprazole 40 MG VIAL IVP SCH (08:59)
[2020-06-03] MEDS: ANAKINRA SC SCH (09:00)
[2020-06-03] MEDS: Cefepime 2 GM in Sodium Chloride 0.9% 100 ML IVPB SCH ×2 (10:59→23:00)
--- NOTE | 2020-06-03 12:11 | PDOC.PALPN ---
Palliative Progress Note - Subjective Sleepy, delayed response to questions. Denies complaints, however is a poor historian in relation to ROS. Appears to be increasing in forgetfulness. - Objective Vital Signs: Vital Signs - Most Recent Temp Pulse Resp BP Pulse Ox 98.3 F 97 16 107/71 100 06/03/20 07:50 06/03/20 07:50 06/03/20 07:50 06/03/20 07:50 06/03/20 07:50 - Physical Exam Constitutional: confusion, ill appearing HEENT: EOMI, moist MMs Respiratory: no wheezing, unlabored breathing Cardiovascular: RRR Gastrointestinal: soft, non-tender, incontinent Genitourinary: incontinent Musculoskeletal: edema present Neurology: moves all 4 limbs Skin: cap refill <2 seconds Psychiatric: flat affect - Assessment (1) Acute kidney injury Code(s): N17.9 - ACUTE KIDNEY FAILURE, UNSPECIFIED Status: Acute (2) Adrenal insufficiency Code(s): E27.40 - UNSPECIFIED ADRENOCORTICAL INSUFFICIENCY Status: Acute (3) Palliative care encounter Code(s): Z51.5 - ENCOUNTER FOR PALLIATIVE CARE Status: Acute (4) 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 DISEASE Status: Chronic - Plan Plan: Palliative Care has communicated with patient sister who obtains the [place] for his Stills disease. Janine Villegas RNestimate clerk has communicated with [facility] and relayed importance of medication and compliance to prevent exacerbation of disease processes. Patient depressed, but confirms wishes to continue with aggressive measures. Emotional Support Therapeutic listening. Transition to [facility] secondary to increasing assistance needed with ADL's and continued management of Stills Disease. Palliative Care will sign off as Goal of Care is met, please reconsult if we can assist again with continued education in relation to disease processes/trajectory, symptom management, revisiting Goal of Care. [35] minutes spent on this encounter with >50% of the time in counseling and coordination of care. - ROS Constitutional: alert, weakness ENT: other (Denies congestion, throat irritation) Respiratory: other (Denies shortness of breath, cough) Cardiology: other (denies chest pain, palpitations) Gastrointestinal: other (denies nausea, vomiting) Musculoskeletal: arthritis/arthralgias, hand pain
[2020-06-03] MEDS: Lidocaine Viscous Sol 2% 15 ml UD Cup SSW PRN (12:36)
[2020-06-03] MEDS: DAPTOMYCIN SLOW IVP SCH (12:37)
[2020-06-03] MEDS: SODIUM CHLORIDE 0.9% SLOW IVP SCH (12:37)
--- NOTE | 2020-06-03 14:04 | PDOC.MOPN ---
Interval History: sleepy, no complaints. - Vital Signs Vital Signs: Vital Signs (12 hours) Temp Pulse Resp BP Pulse Ox 06/03/20 07:50 98.3 F 97 16 107/71 100 06/03/20 04:32 98.4 F 105 H 16 125/71 100 Weight Admit Weight 171 lb 11.841 oz Weight 152 lb 12.485 oz Most Recent Monitor Data Heart Rate from ECG 78 NIBP 110/68 NIBP BP-Mean 82 Respiration from ECG 22 SpO2 100 - Physical Exam General: Alert Lungs: Clear to auscultation Cardiovascular: Regular rate Abdomen: Normal bowel sounds Neurological: Normal speech - Labs Result Diagrams: 06/02/20 16:05 06/02/20 04:26 Lab results: Laboratory Results - last 24 hr 06/03/20 11:43: POC Glucose 162 H 06/03/20 05:33: POC Glucose 185 H 06/02/20 20:28: POC Glucose 194 H 06/02/20 16:05: Hgb 8.9 L, Hct 26.9 L, Plt Count 37 L 06/02/20 15:36: POC Glucose 197 H 06/02/20 04:26: Flow Cytometry Interp Status: lab reviewed by me A/P - Problem (1) Pancytopenia Current Visit: Yes Code(s): D61.818 - OTHER PANCYTOPENIA Status: Acute (2) T-cell large granular lymphocytic leukemia Current Visit: Yes Code(s): C91.Z0 - OTHER LYMPHOID LEUKEMIA NOT HAVING ACHIEVED REMISSION Status: Acute (3) Bacteremia Current Visit: No Code(s): R78.81 - BACTEREMIA Status: Acute (4) Adult Still's disease Current Visit: No Code(s): M06.1 - ADULT-ONSET STILL'S DISEASE Status: Ch emiliano - Plan Plan: 1. preliminary results of flow cytometry show T-LGL 2. bone marrow biopsy to confirm 3. daily CBC 4. transfuse prn.
--- NOTE | 2020-06-03 14:27 | PRG ---
DATE OF SERVICE: 06/03/2020 Mr. Knight is alert and talkative in bed, although, he does not appear to feel well. His flow cytometry is back and is consistent with T-cell large granular lymphocytic leukemia. He is also being followed by Hem/Onc, who will do a bone marrow biopsy to confirm the above diagnosis. Job ID: [id number]
[2020-06-03 17:00] LABS: AST (SGOT) 20 U/L (5-34); Albumin 2.4 g/dL (3.5-5.0); Anion Gap 15 mmol/L (10-20); Bilirubin, Total 2.3 mg/dL (0.2-1.2); Calc. Creatinine Clearance 76 mL/min (70-130); Calcium 7.5 mg/dL (7.8-10.44); Carbon Dioxide 20 mmol/L (22-29); Chloride 113 mmol/L (98-107); Estimated GFR-MDRD Greater than 90; Potassium 3.1 mmol/L (3.5-5.1); Protein, Total 5.4 g/dL (6.0-8.3); Sodium 145 mmol/L (136-145)
--- NOTE | 2020-06-03 17:10 | PRG ---
DATE OF SERVICE: 06/03/2020 SUBJECTIVE: Alert. The patient is very talkative. The patient had a flow cytometry after him on consultation and it showed T-cell large granular lymphocytic leukemia. Bone marrow biopsy is going to be ordered for confirmation of the diagnosis. OBJECTIVE: VITAL SIGNS: His vital signs showed improvement in temperature curve, BP 120/70, pulse rate 100, respiratory rate 16, and O2 saturation 98%. GENERAL: He is oriented, stiff, but otherwise back to his mental state. LUNGS: Symmetric air entry. HEART: S1 and S2, regular and rate. ABDOMEN: Soft, not distended or tender. EXTREMITIES: Moves extremities equally with little stiffness. LABORATORY DATA: White cell count 0.9, hemoglobin 8.8, platelets were up to 37. Haptoglobin 77, reticulocyte count 0.1. Creatinine is better now 1.23. CT of abdomen pelvis and chest showed diverticulitis. This is more of a chronic finding really. The CT of chest with some areas of potential aspiration pneumonia and subsegmental location on the right side. The flow cytometry showed marked granulocytopenia and increased large granular lymphocytes, 41%, so there is a suspicion for T-cell large granular lymphoproliferative disorder, but this has to be confirmed diagnosis yet, just the possibility of it. The blood cultures revealed yeast species, 1 out of 2 sets. Looking back in his white cell counts, this is the first time that he became neutropenic, so basically right now he is on broad-spectrum coverage and will continue on such including micafungin. We will need to evaluate the identification of the yeast in the blood. It is likely going to turning machine operator to be Shandra species. Awaiting on the bone marrow results. Job ID: [id number] [facility]
[2020-06-03 17:22] LABS: ALT (SGPT) 66 U/L (8-55); Alkaline Phosphatase 196 U/L (40-110); BUN (Urea Nitrogen) 27 mg/dL (8.4-25.7); Glucose 206 mg/dL (70-105)
[2020-06-03 17:58] LABS: Hemoglobin 8.9 g/dL (14.0-18.0); Mean Corpuscular HGB CONC 33.5 g/dL (32.0-36.0); Mean Corpuscular Hemoglobin 28.4 pg (27.0-31.0); Mean Corpuscular Volume 84.9 fL (78.0-98.0); Mean Platelet Volume 17.1 fL (7.4-10.4); Platelet Count 14 thou/uL (130-400); Red Blood Cell (RBC) Count 3.14 mill/uL (4.70-6.10); White Blood Cell (WBC) Count 0.8 thou/uL (4.8-10.8)
[2020-06-03 18:31] LABS: Lymphocytes 80 % (21-51); MDiff Complete? YES; Monocytes 4 % (0-10); Neutrophil 2 % (42-75); Ovalocytes SLIGHT = 2-5 cells (100X) (0-1/hpf); Platelet Morphology Comment Appears Decreased; Polychromasia SLIGHT = 2-3 cells (100X) (0-2/hpf); Reactive Lymphocytes 14 % (0-10); Schistocytes SLIGHT = 2-5 cells (100X) (0-1/hpf); Tear Drops SLIGHT = 2-5 cells (100X) (0-1/hpf)
[2020-06-03] MEDS: metroNIDAZOLE 500 MG in Premix Bag 1 BAG IVPB SCH (21:28)
[2020-06-04] MEDS: Hydrocortisone Sod Succ/PF 100 mg/2 ml Vial IVP SCH ×4 (01:00→17:16)
[2020-06-04 04:27] LABS: Platelet Count 8 thou/uL (130-400); White Blood Cell (WBC) Count 0.7 thou/uL (4.8-10.8)
[2020-06-04 04:45] LABS: ALT (SGPT) 56 U/L (8-55); AST (SGOT) 17 U/L (5-34); Albumin 2.6 g/dL (3.5-5.0); Alkaline Phosphatase 194 U/L (40-110); Anion Gap 11 mmol/L (10-20); BUN (Urea Nitrogen) 26 mg/dL (8.4-25.7); Bilirubin, Total 2.1 mg/dL (0.2-1.2); Calc. Creatinine Clearance 76 mL/min (70-130); Calcium 7.5 mg/dL (7.8-10.44); Carbon Dioxide 24 mmol/L (22-29); Chloride 115 mmol/L (98-107); Estimated GFR-MDRD Greater than 90; Globulin 2.7 g/dL (2.4-3.5); Glucose 198 mg/dL (70-105); Protein, Total 5.3 g/dL (6.0-8.3); Sodium 147 mmol/L (136-145)
[2020-06-04 04:56] LABS: Potassium 2.8 mmol/L (3.5-5.1)
[2020-06-04 05:22] LABS: Anisocytosis SLIGHT = 6-15 cells (100X) (0-5/hpf); Elliptocytes SLIGHT = 2-5 cells (100X) (0-1/hpf); Hemoglobin 8.3 g/dL (14.0-18.0); Lymphocytes 96 % (21-51); MDiff Complete? YES; Mean Corpuscular HGB CONC 32.9 g/dL (32.0-36.0); Mean Corpuscular Volume 85.2 fL (78.0-98.0); Mean Platelet Volume 17.6 fL (7.4-10.4); Monocytes 4 % (0-10); Nucleated RBC 1 % (0); Platelet Morphology Comment Appears Decreased; Red Blood Cell (RBC) Count 2.95 mill/uL (4.70-6.10)
[2020-06-04] MEDS: metroNIDAZOLE 500 MG in Premix Bag 1 BAG IVPB SCH ×3 (05:59→21:16)
[2020-06-04] MEDS ORDERED: Potassium Chloride 20 MEQ TAB PO SCH ×2 (06:45→16:30)
--- NOTE | 2020-06-04 06:49 | PDOC.FM ---
- Subjective Subjective: Night team paged for low potassium and low platelets overnight, K replaced and platelet transfusion ordered. Patient denies any new complaints this AM. Sore throat is improving. Does not want to answer questions this morning. Has been afebrile, no swelling, no abdominal pain. - Objective Vital Signs & Weight: Vital Signs (12 hours) Temp Pulse Resp BP Pulse Ox 06/04/20 04:00 98.1 F 102 H 18 130/75 99 06/04/20 00:00 97.7 F 97 18 128/85 100 06/03/20 20:00 98.2 F 102 H 16 124/73 100 Weight Admit Weight 77.9 kg Weight 68.1 kg Most Recent Monitor Data Heart Rate from ECG 78 NIBP 110/68 NIBP BP-Mean 82 Respiration from ECG 22 SpO2 100 I&O: 06/02/20 06/03/20 06/04/20 06:59 06:59 06:59 Intake Total 1749 2729.5 900 Output Total 1 350 Balance 1748 2379.5 900 Result Diagrams: 06/04/20 04:15 06/04/20 04:15 Phys Exam - Physical Examination Constitutional: NAD HEENT: moist MMs erythema pharynx, no purulence; oral thrush Neck: supple Respiratory: no wheezing, no rales upper airway sounds Cardiovascular: RRR, no significant murmur Gastrointestinal: soft, non-tender, no distention, positive bowel sounds Musculoskeletal: no edema, pulses present Neurological: moves all 4 limbs Deviation from normal: flat affect; will not answer orientation questions Skin: no rash Dx/Plan - Plan Plan: Neutropenic fever, improved Has now been afebrile x 2 days. Neutropenic for several days with pancytopenia s/p shock, arrest, ROSC, pressors. Has been on several agents for empiric coverage of infection during this admission, including linezolid, micafungin, meropenem, omnicef. Blood cx drawn on admission negative. Urethral discharge cx was significant for presumptive emiliano albicans on admission. Hx resistant klebsiella infections in the past. - discussed with ID, Dr. Nickerson, appreciate recs - allergic to vancomycin - started cefepime, micafungin, daptomycin 06/01 - blood culture 1/2 prelim pos for yeast, will continue broad spec therapy and follow up final cx results - continue to monitor vitals closely - LE dopplers negative for DVT 06/01 - CTA chest, CT abd pelvis significant for aspiration pneumonia, recurrent diverticulitis - tylenol [place] q8h PRN for fever - continue stress dose steroids - consulted heme/onc, appreciate recs Pancytopenia Severe thrombocytopenia Attributed to bone marrow suppression due to shock, arrest, pressors initially. Worsening thrombocytopenia, persistent neutropenia. Hgb has been low but fairly stable above transfusion threshold. 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 Flow cytometry was ordered and is suggestive of this. They are planning bone marrow biopsy to confirm. - appreciate heme/onc recs - f/u bone marrow biopsy results s/p ROSC Septic shock versus exacerbation of Still's disease No longer in shock state, although he is still recovering from the end-organ effects of this event as below. Suspected to be due to exacerbation of his Still's disease due to missing his anakinra at skilled nursing, although infection could not be ruled out on presentation. He was placed on meropenem, levophed, intubated initially. Abx de-escalated to omnicef, although he now has increasing concern for infection in the setting of neutropenic fever, as above. Patient apparently refused prednisone 05/31, worsening exacerbation of Still's disease could also be contributing to current clinical picture. - Dr. Nickerson, infectious disease, following, appreciate recs - Pulm following, appreciate recs - continue to monitor vitals - stress dose steroids as above Oral thrush, presumed strep throat Has been on micafungin and nystatin SSW. Physical exam today appears consistent with a strep throat infection. - currently on cefepime as above which should offer coverage of streptococcal species - consider strep test, cx if symptoms persist or worsen - added viscous xylocaine for patient comfort CARL on CKD, resolving Appears CARL is resolving, Cr returned to baseline and adequate UOP. Initially with 10kg weight gain 2/2 fluid retention, but has now lost all of this weight. - continue to monitor cr, UOP - nephro signed off 06/01 Transaminitis Attributed to shock liver s/p septic shock, arrest. Liver enzymes beginning to trend down again. 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 Styles consulted. Appreciate recs HTN Anti-hypertensives held 2/2 hypotension. HLD -aware HFrEF - last ECHO 02/2020: EF 40-45%, grade 1 of 3 diastolic dysfunction T2DM - Glucose check ACHS - Mild SSI - Glucagon/D50 if hypoglycemic - decreased insulin this AM due to poor oral intake, hypoglycemia BPH - tamsulosin held 2/2 hypotension History of DVT in R popliteal vein diagnosed on 02/28/2020 - was on home xarelto of 10mg daily, but not recommended with GFR < 30 - Therapeutic lovenox discontinued due to low platelets - eliquis held at this time due to severe thrombocytopenia with increased risk of spontaneous bleeding - US and CTA 06/01 without signs of DVT or PE - continue to monitor for recurrent symptoms
[2020-06-04] MEDS: Nystatin 500,000 UNITS/5 ML UDCUP SSW SCH ×6 (08:34→21:16)
[2020-06-04] MEDS: NPH, Human Insulin Isophane 300 UNIT/3 ML VIAL SC SCH ×2 (08:35→21:16)
[2020-06-04] MEDS: Lactated Ringer's 1,000 ML IV SCH (08:35)
[2020-06-04] MEDS: Pantoprazole 40 MG VIAL IVP SCH (08:35)
[2020-06-04] MEDS: Potassium Chloride 20 MEQ in Premix Bag 1 BAG IVPB SCH ×2 (08:36→15:12)
[2020-06-04] MEDS ORDERED: Magnesium 2 GM/50 ML 2 GM in Premix Bag 1 BAG IVPB SCH (10:00)
[2020-06-04] MEDS: ANAKINRA SC SCH (11:16)
[2020-06-04 12:25] LABS: Anion Gap 15 mmol/L (10-20); BUN (Urea Nitrogen) 26 mg/dL (8.4-25.7); Calc. Creatinine Clearance 77 mL/min (70-130); Calcium 7.8 mg/dL (7.8-10.44); Carbon Dioxide 22 mmol/L (22-29); Chloride 117 mmol/L (98-107); Estimated GFR-MDRD Greater than 90; Glucose 190 mg/dL (70-105); Potassium 3.4 mmol/L (3.5-5.1); Sodium 151 mmol/L (136-145)
[2020-06-04] MEDS: Micafungin 100 MG in Sodium Chloride 0.9% 100 ML IVPB SCH (13:15)
--- NOTE | 2020-06-04 13:15 | PDOC.MOPN ---
Interval History: Pt denies bleeding, fevers, N/V/D. Discussed plan for BMBx today to evaluate for T-LGL. - Vital Signs Vital Signs: Vital Signs (12 hours) Temp Pulse Pulse Resp BP BP Pulse Ox 06/04/20 11:19 98.1 F 94 14 114/70 99 06/04/20 09:24 98 F 101 H 18 133/82 06/04/20 07:57 97.9 F 100 16 135/79 100 06/04/20 04:00 98.1 F 102 H 18 130/75 99 Weight Admit Weight 171 lb 11.841 oz Weight 150 lb 2.157 oz Most Recent Monitor Data Heart Rate from ECG 78 NIBP 110/68 NIBP BP-Mean 82 Respiration from ECG 22 SpO2 100 - Physical Exam General: Alert, Cooperative HEENT: Atraumatic Lungs: Normal air movement Cardiovascular: Regular rate (Appears confused) - Labs Result Diagrams: 06/04/20 04:15 06/04/20 12:01 Lab results: Laboratory Results - last 24 hr 06/04/20 12:01: Sodium 151 H, Potassium 3.4 L, Chloride 117 H, Carbon Dioxide 22, Anion Gap 15, BUN 26 H, Creatinine 0.98, Estimated GFR (MDRD) Greater than 90, Glucose 190 H, Calcium 7.8 06/04/20 04:57: POC Glucose 183 H 06/04/20 04:15: Magnesium 1.4 L 06/04/20 04:15: Sodium 147 H, Potassium 2.8 L*, Chloride 115 H, Carbon Dioxide 24, Anion Gap 11, BUN 26 H, Creatinine 1.01, Estimated GFR (MDRD) Greater than 90, Glucose 198 H, Calcium 7.5 L, Total Bilirubin 2.1 H, AST 17, ALT 56 H, Alkaline Phosphatase 194 H, Serum Total Protein 5.3 L, Albumin 2.6 L, Globulin 2.7, Albumin/Globulin Ratio 1.0 L 06/04/20 04:15: WBC 0.7 L*, RBC 2.95 L, Hgb 8.3 L, Hct 25.1 L, MCV 85.2, MCH 28.0, MCHC 32.9, RDW 16.0 H, Plt Count 8 L*, MPV 17.6 H, Neutrophils % (Manual) Not Reportable, Lymphocytes % (Manual) 96 H, Monocytes % (Manual) 4, Lymphocytes # Not Reportable, Nucleated RBCs # (Man) 1 H, Plt Morphology Comment Appears Decreased L, Anisocytosis SLIGHT = 6-15 cells, Elliptocytes SLIGHT = 2-5 cells 06/03/20 17:44: WBC 0.8 L*, RBC 3.14 L, Hgb 8.9 L, Hct 26.7 L, MCV 84.9, MCH 28.4, MCHC 33.5, RDW 16.0 H, Plt Count 14 L*, MPV 17.1 H, Neutrophils % (Manual) 2 L, Lymphocytes % (Manual) 80 H, Reactive Lymphs % 14 H, Monocytes % (Manual) 4, Lymphocytes # Not Reportable, Plt Morphology Comment Appears Decreased L, Polychromasia SLIGHT = 2-3 cells, Tear Drop Cells SLIGHT = 2-5 cells, Ovalocytes SLIGHT = 2-5 cells, Schistocytes SLIGHT = 2-5 cells 06/03/20 16:13: Sodium 145, Potassium 3.1 L, Chloride 113 H, Carbon Dioxide 20 L, Anion Gap 15, BUN 27 H, Creatinine 1.01, Estimated GFR (MDRD) Greater than 90, Glucose 206 H, Calcium 7.5 L, Total Bilirubin 2.3 H, AST 20, ALT 66 H, Alkaline Phosphatase 196 H, Serum Total Protein 5.4 L, Albumin 2.4 L, Globulin 3.0, Albumin/Globulin Ratio 0.8 L 06/03/20 15:42: POC Glucose 172 H 06/02/20 07:35: Blood Type A POSITIVE, Antibody Screen NEGATIVE 06/01/20 13:58: Haptoglobin 77 A/P - Problem (1) Pancytopenia Current Visit: Yes Code(s): D61.818 - OTHER PANCYTOPENIA Status: Acute (2) T-cell large granular lymphocytic leukemia Current Visit: Yes Code(s): C91.Z0 - OTHER LYMPHOID LEUKEMIA NOT HAVING ACHIEVED REMISSION Status: Acute - Plan Plan: BMBx today f/u TCR studies If T-LGL confirmed will start Methotrexate Transfuse platelets < 10, Hb < 7 Cont antibiotics, antifungal
--- NOTE | 2020-06-04 14:16 | PRG ---
DATE OF SERVICE: 06/04/2020 I have read the note of Dr. Calvillo and agree with assessment and plan. I have examined the patient. He is also being followed for Hem/Onc for his probable lymphoma. Plans for today is for a bone marrow biopsy. Heme-Onc will follow up more of his TCR studies and if T-LGL is confirmed, we will start methotrexate. We will transfuse platelets as needed for count below 10,000 and transfuse packed red blood cells as needed for hemoglobin less than 7 while continuing antibiotics and antifungals on this very sick individual. Job ID: [id number]
[2020-06-04] MEDS: HumaLOG 300 UNITS/3 ML VIAL SC PRN ×2 (14:23→17:29)
[2020-06-04] MEDS: DAPTOMYCIN SLOW IVP SCH (15:12)
[2020-06-04] MEDS: SODIUM CHLORIDE 0.9% SLOW IVP SCH (15:12)
[2020-06-04 15:38] LABS: Hemoglobin 7.9 g/dL (14.0-18.0); Mean Corpuscular HGB CONC 32.5 g/dL (32.0-36.0); Mean Corpuscular Hemoglobin 27.5 pg (27.0-31.0); Mean Corpuscular Volume 84.7 fL (78.0-98.0); Mean Platelet Volume 11.8 fL (7.4-10.4); Platelet Count 47 thou/uL (130-400); Red Blood Cell (RBC) Count 2.88 mill/uL (4.70-6.10); White Blood Cell (WBC) Count 0.8 thou/uL (4.8-10.8)
[2020-06-04 15:54] LABS: Ref Lab Test Ordered TCGR
[2020-06-04] MEDS: Cefepime 2 GM in Sodium Chloride 0.9% 100 ML IVPB SCH ×2 (16:37→17:16)
[2020-06-04] MEDS ORDERED: Potassium Chloride 20 MEQ in Premix Bag 1 BAG IVPB SCH (17:00)
[2020-06-04] MEDS: Dextrose 5% in Water 1,000 ML IV SCH (17:16)
[2020-06-05 01:51] LABS: Anion Gap 14 mmol/L (10-20); BUN (Urea Nitrogen) 23 mg/dL (8.4-25.7); Calc. Creatinine Clearance 86 mL/min (70-130); Calcium 7.7 mg/dL (7.8-10.44); Carbon Dioxide 23 mmol/L (22-29); Chloride 117 mmol/L (98-107); Estimated GFR-MDRD Greater than 90; Glucose 191 mg/dL (70-105); Potassium 3.5 mmol/L (3.5-5.1); Sodium 150 mmol/L (136-145)
[2020-06-05] MEDS: Hydrocortisone Sod Succ/PF 100 mg/2 ml Vial IVP SCH ×4 (05:58→18:21)
[2020-06-05] MEDS: metroNIDAZOLE 500 MG in Premix Bag 1 BAG IVPB SCH ×3 (05:58→20:49)
[2020-06-05] MEDS: Cefepime 2 GM in Sodium Chloride 0.9% 100 ML IVPB SCH ×2 (05:58→16:03)
--- NOTE | 2020-06-05 07:22 | PDOC.FM ---
- Subjective Subjective: Was scheduled for bone marrow biopsy yesterday but was rescheduled for today. No acute overnight events, labs still pending this AM. He c/o sore throat this AM. Denies abdominal pain, swelling, does not answer other questions this morning. - Objective Vital Signs & Weight: Vital Signs (12 hours) Temp Pulse Resp BP Pulse Ox 06/05/20 04:00 98.5 F 108 H 18 155/72 H 99 06/05/20 00:00 98.0 F 95 18 129/80 100 06/04/20 20:00 98.0 F 94 18 127/75 100 Weight Admit Weight 77.9 kg Weight 67.132 kg Most Recent Monitor Data Heart Rate from ECG 78 NIBP 110/68 NIBP BP-Mean 82 Respiration from ECG 22 SpO2 100 I&O: 06/04/20 06/05/20 06/06/20 06:59 06:59 06:59 Intake Total 900 920 Balance 900 920 Result Diagrams: 06/04/20 15:25 06/05/20 01:28 Phys Exam - Physical Examination Constitutional: NAD appears fatigued oral thrush, unable to examine posterior pharynx due to patient cooperation Respiratory: no wheezing, no rales upper airway sounds Cardiovascular: no significant murmur tachycardia 100s Gastrointestinal: soft, non-tender, no distention, positive bowel sounds Musculoskeletal: no edema, pulses present sleeping, arousable, answers some yes/no questions, minimal verbalization Skin: no rash Dx/Plan - Plan Plan: Neutropenic fever, improved Has now been afebrile for multiple days. Neutropenic for several days with pancytopenia s/p shock, arrest, ROSC, pressors. Has been on several agents for empiric coverage of infection during this admission, including linezolid, micafungin, meropenem, omnicef. Blood cx drawn on admission negative. Urethral discharge cx was significant for presumptive emiliano albicans on admission. Hx resistant klebsiella infections in the past. - discussed with ID, Dr. Nickerson, appreciate recs - allergic to vancomycin - started cefepime, micafungin, daptomycin 06/01 - blood culture 1/2 prelim pos for yeast, will continue broad spec therapy and follow up final cx results - continue to monitor vitals closely - LE dopplers negative for DVT 06/01 - CTA chest, CT abd pelvis significant for aspiration pneumonia, recurrent diverticulitis - tylenol [place] q8h PRN for fever - continue stress dose steroids - consulted heme/onc, appreciate recs Pancytopenia Severe thrombocytopenia Attributed to bone marrow suppression due to shock, arrest, pressors initially. Worsening thrombocytopenia, persistent neutropenia. Hgb has been low but fairly stable above transfusion threshold. 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 Flow cytometry was ordered and is suggestive of this. They are planning bone marrow biopsy to confirm. - appreciate heme/onc recs - f/u bone marrow biopsy results s/p ROSC Septic shock versus exacerbation of Still's disease No longer in shock state, although he is still recovering from the end-organ effects of this event as below. Suspected to be due to exacerbation of his Still's disease due to missing his anakinra at longterm, although infection could not be ruled out on presentation. He was placed on meropenem, levophed, intubated initially. Patient apparently refused prednisone 05/31, worsening exacerbation of Still's disease could also be contributing to current clinical picture. - Dr. Nickerson, infectious disease, following, appreciate recs - Pulm following, appreciate recs - continue to monitor vitals - stress dose steroids as above Oral thrush, presumed strep throat Has been on micafungin and nystatin SSW. Exam also appeared consistent with strep throat but this has been improving. - currently on cefepime as above which should offer coverage of streptococcal species - consider strep test, cx if symptoms persist or worsen - added viscous xylocaine for patient comfort Hypernatremia - DC fludrocortisone 05/30 as this is suspected to be a contributing factor given hypernatremia and hypokalemia - Na increasing again, will resume D5W and recheck Na this afternoon Hypokalemia - Discontinued fludrocortisone as above - ordered 40 IV and 40 PO overnight for repletion - will check Mg this AM and recheck K levels this afternoon Hypomagnesemia -will recheck in setting of low K this AM - Continue to replete as needed 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 Initially with 10kg weight gain 2/2 fluid retention, but has now lost all of this weight. - continue to monitor cr, UOP - nephro signed off 06/01 Transaminitis Attributed to shock liver s/p septic shock, arrest. Liver enzymes trending down. - continue to monitor with CMP s/p Extubation, 2/2 aspiration/vomiting - extubated several days ago - airway stable at this time - resting comfortably on RA - Pulm Dr. Styles consulted. Appreciate recs HTN Anti-hypertensives held 2/2 hypotension. HLD -aware HFrEF - last ECHO 02/2020: EF 40-45%, grade 1 of 3 diastolic dysfunction T2DM - Glucose check ACHS - Mild SSI - Glucagon/D50 if hypoglycemic - decreased insulin this AM due to poor oral intake, hypoglycemia BPH - tamsulosin held 2/2 hypotension History of DVT in R popliteal vein diagnosed on 02/28/2020 - was on home xarelto of 10mg daily, but not recommended with GFR < 30 - Therapeutic lovenox discontinued due to low platelets - eliquis held at this time due to severe thrombocytopenia with increased risk of spontaneous bleeding - US and CTA 06/01 without signs of DVT or PE - continue to monitor for recurrent symptoms
[2020-06-05] MEDS: Dextrose 5% in Water 1,000 ML IV SCH ×3 (08:16→14:33)
[2020-06-05] MEDS: Nystatin 500,000 UNITS/5 ML UDCUP SSW SCH ×4 (08:17→20:49)
[2020-06-05] MEDS: Pantoprazole 40 MG VIAL IVP SCH (08:17)
[2020-06-05] MEDS: ANAKINRA SC SCH (09:26)
[2020-06-05] MEDS: NPH, Human Insulin Isophane 300 UNIT/3 ML VIAL SC SCH ×2 (09:27→20:49)
[2020-06-05] MEDS: Micafungin 100 MG in Sodium Chloride 0.9% 100 ML IVPB SCH (09:27)
[2020-06-05] MEDS ORDERED: PHENYLEPHRINE-NS 100 MCG/ML 10 ML SYRINGE ONE (12:29)
[2020-06-05] MEDS ORDERED: PROPOFOL 200 MG/20 ML VIAL ONE (12:29)
[2020-06-05] MEDS ORDERED: Lidocaine 1% PF 5 ML VIAL ONE (12:29)
[2020-06-05] MEDS: SODIUM CHLORIDE 0.9% SLOW IVP SCH (14:31)
[2020-06-05] MEDS: DAPTOMYCIN SLOW IVP SCH (14:31)
--- NOTE | 2020-06-05 14:43 | PRG ---
DATE OF SERVICE: 06/05/2020 Mr. Knight seems to be having intermittent bouts of delirium. He is due for his bone marrow biopsy today with further treatment depending on results. Job ID: [id number]
--- NOTE | 2020-06-05 15:05 | CT ---
Bone marrow aspiration/biopsy CT-guided HISTORY: Anemia. FINDINGS: Anesthesia provided by anesthesia Department. Informed consent obtained. Limited CT imaging of the pelvis performed with patient prone. Sterile technique, buffered local anesthesia, CT guidance, and a posterior approach were used to care fully advance an 11-gauge bone biopsy needle to the posterior cortex of the left iliac body. Needle carefully engaged through the cortex. Blood aspirate and 11-gauge core specimen obtained and submitted to pathology for evaluation and proc essing. Needle was removed. No evidence of complication. Patient tolerated the procedure well and was returned in unchanged condition. IMPRESSION : Technically successful CT-guided bone marrow aspiration/biopsy.
[2020-06-05 17:56] LABS: Hemoglobin 8.4 g/dL (14.0-18.0); Mean Corpuscular HGB CONC 32.2 g/dL (32.0-36.0); Mean Corpuscular Hemoglobin 27.3 pg (27.0-31.0); Mean Corpuscular Volume 84.7 fL (78.0-98.0); Mean Platelet Volume 16.6 fL (7.4-10.4); Platelet Count 22 thou/uL (130-400); Red Blood Cell (RBC) Count 3.09 mill/uL (4.70-6.10); White Blood Cell (WBC) Count 0.4 thou/uL (4.8-10.8)
[2020-06-05 18:27] LABS: ALT (SGPT) 42 U/L (8-55); AST (SGOT) 17 U/L (5-34); Albumin 2.6 g/dL (3.5-5.0); Alkaline Phosphatase 189 U/L (40-110); Anion Gap 15 mmol/L (10-20); BUN (Urea Nitrogen) 22 mg/dL (8.4-25.7); Bilirubin, Total 2.8 mg/dL (0.2-1.2); Calc. Creatinine Clearance 76 mL/min (70-130); Calcium 7.6 mg/dL (7.8-10.44); Carbon Dioxide 23 mmol/L (22-29); Estimated GFR-MDRD Greater than 90; Globulin 2.8 g/dL (2.4-3.5); Glucose 241 mg/dL (70-105); Magnesium 1.4 mg/dL (1.6-2.6); Protein, Total 5.4 g/dL (6.0-8.3)
[2020-06-05 18:50] LABS: Chloride 115 mmol/L (98-107); Potassium 3.7 mmol/L (3.5-5.1); Sodium 149 mmol/L (136-145)
[2020-06-06] MEDS: Hydrocortisone Sod Succ/PF 100 mg/2 ml Vial IVP SCH ×4 (01:20→17:35)
[2020-06-06] MEDS: Dextrose 5% in Water 1,000 ML IV SCH ×3 (01:20→15:13)
[2020-06-06] MEDS: Cefepime 2 GM in Sodium Chloride 0.9% 100 ML IVPB SCH (05:15)
[2020-06-06] MEDS: metroNIDAZOLE 500 MG in Premix Bag 1 BAG IVPB SCH ×2 (05:15→15:11)
[2020-06-06 06:01] LABS: Hemoglobin 7.3 g/dL (14.0-18.0); Mean Corpuscular HGB CONC 31.6 g/dL (32.0-36.0); Mean Corpuscular Hemoglobin 26.8 pg (27.0-31.0); Mean Corpuscular Volume 84.9 fL (78.0-98.0); Mean Platelet Volume 17.2 fL (7.4-10.4); Platelet Count 12 thou/uL (130-400); RBC Distribution Width 15.7 % (11.5-14.5); Red Blood Cell (RBC) Count 2.74 mill/uL (4.70-6.10); White Blood Cell (WBC) Count 1.5 thou/uL (4.8-10.8)
[2020-06-06 06:17] LABS: ALT (SGPT) 34 U/L (8-55); AST (SGOT) 11 U/L (5-34); Albumin 2.2 g/dL (3.5-5.0); Alkaline Phosphatase 167 U/L (40-110); Anion Gap 12 mmol/L (10-20); BUN (Urea Nitrogen) 24 mg/dL (8.4-25.7); Bilirubin, Total 2.2 mg/dL (0.2-1.2); Calc. Creatinine Clearance 74 mL/min (70-130); Calcium 7.5 mg/dL (7.8-10.44); Carbon Dioxide 24 mmol/L (22-29); Chloride 112 mmol/L (98-107); Estimated GFR-MDRD 86; Globulin 2.5 g/dL (2.4-3.5); Glucose 388 mg/dL (70-105); Magnesium 1.4 mg/dL (1.6-2.6); Protein, Total 4.7 g/dL (6.0-8.3); Sodium 145 mmol/L (136-145)
[2020-06-06 06:25] LABS: Potassium 2.7 mmol/L (3.5-5.1)
[2020-06-06 06:28] LABS: Lymphocytes 92 % (21-51); MDiff Complete? YES; Monocytes 4 % (0-10); Neutrophil 4 % (42-75); Platelet Morphology Comment Appears Decreased
[2020-06-06] MEDS ORDERED: Potassium Chloride 20 MEQ TAB PO SCH (07:00)
[2020-06-06] MEDS ORDERED: Magnesium 2 GM/50 ML 2 GM in Premix Bag 1 BAG IVPB SCH (07:30)
[2020-06-06] MEDS ORDERED: Potassium Chloride 40 MEQ in Sodium Chloride 0.9% 250 ML 250 ML IVPB SCH ×3 (07:30→19:30)
[2020-06-06] MEDS: Nystatin 500,000 UNITS/5 ML UDCUP SSW SCH ×5 (08:16→20:05)
[2020-06-06] MEDS: Pantoprazole 40 MG VIAL IVP SCH (08:17)
[2020-06-06] MEDS: NPH, Human Insulin Isophane 300 UNIT/3 ML VIAL SC SCH ×2 (08:22→20:05)
--- NOTE | 2020-06-06 08:22 | PDOC.FM ---
- Subjective Subjective: No acute overnight events. States he is feeling better today than yesterday, although still a little delirious and unclear if this is reliable. Throat pain is reportedly improving. Denies abdominal pain, leg swelling. Not coughing. No acute bleeding. - Objective Vital Signs & Weight: Vital Signs (12 hours) Temp Pulse Resp BP BP Pulse Ox 06/06/20 07:59 98.7 F 103 H 19 100/64 100 06/06/20 04:00 98.2 F 106 H 18 119/72 100 06/06/20 00:00 97.6 F 95 18 119/79 100 Weight Admit Weight 77.9 kg Weight 70.3 kg Most Recent Monitor Data Heart Rate from ECG 78 NIBP 110/68 NIBP BP-Mean 82 Respiration from ECG 22 SpO2 100 I&O: 06/05/20 06/06/20 06/07/20 06:59 06:59 06:59 Intake Total 920 1125 Balance 920 1125 Result Diagrams: 06/06/20 05:29 06/06/20 05:29 Phys Exam - Physical Examination Constitutional: NAD HEENT: moist MMs oral thrush, improving pharynx erythema Neck: supple Respiratory: no wheezing, no rales, clear to auscultation bilateral Cardiovascular: RRR, no significant murmur Gastrointestinal: soft, non-tender Musculoskeletal: no edema, pulses present L hand cooler than R but pulses intact Neurological: moves all 4 limbs equal life advisor strength Psychiatric: normal affect Deviation from normal: oriented to self, location, not month or year Skin: no rash Dx/Plan - Plan Plan: Neutropenic fever, improved Has now been afebrile for multiple days. Neutropenic for several days with pancytopenia s/p shock, arrest, ROSC, pressors. Has been on several agents for empiric coverage of infection during this admission, including linezolid, micafungin, meropenem, omnicef. Blood cx drawn on admission negative. Urethral discharge cx was significant for presumptive emiliano albicans on admission. Hx resistant klebsiella infections in the past. - discussed with ID, Dr. Nickerson, appreciate recs - allergic to vancomycin - started cefepime, micafungin, daptomycin 06/01 - blood culture 1/2 prelim pos for yeast, will continue broad spec therapy and follow up final cx results - continue to monitor vitals closely - LE dopplers negative for DVT 06/01 - CTA chest, CT abd pelvis significant for aspiration pneumonia, recurrent diverticulitis - tylenol [place] q8h PRN for fever - continue stress dose steroids - consulted heme/onc, appreciate recs Pancytopenia Severe thrombocytopenia Attributed to bone marrow suppression due to shock, arrest, pressors initially. Worsening thrombocytopenia, persistent neutropenia. Hgb has been low but fairly stable above transfusion threshold. 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 Flow cytometry was ordered and is suggestive of this. They are planning bone marrow biopsy to confirm. - appreciate heme/onc recs - f/u bone marrow biopsy results s/p ROSC Septic shock versus exacerbation of Still's disease No longer in shock state, although he is still recovering from the end-organ effects of this event as below. Suspected to be due to exacerbation of his Stil l's disease due to [facility] anakinra [facility], although infection could not be ruled out on presentation. He was placed on meropenem, levophed, intubated initially. Patient apparently refused prednisone 05/31, worsening exacerbation of Still's disease could also be contributing to current clinical picture. - Dr. Nickerson, infectious disease, following, appreciate recs - Pulm following, appreciate recs - continue to monitor vitals - stress dose steroids as above Oral thrush, presumed strep throat Has been on micafungin and nystatin SSW. Exam also appeared consistent with strep throat but this has been improving. - currently on cefepime as above which should offer coverage of streptococcal species - consider strep test, cx if symptoms persist or worsen - added viscous xylocaine for patient comfort Hypernatremia - DC fludrocortisone 05/30 as this is suspected to be a contributing factor given hypernatremia and hypokalemia - Remains hypernatremic, corrected Na 150 this AM - continue d5w and continue to monitor Hypokalemia - Discontinued fludrocortisone as above - ordered 40 IV and 40 PO for repletion - replace Mg and recheck K levels this afternoon Hypomagnesemia -will recheck in setting of low K this AM - Continue to replete as needed T2DM with hyperglycemia - Glucose check ACHS - Mild SSI - Glucagon/D50 if hypoglycemic - has been on D5w for hypernatremia and diet advancing; now hyperglycemic and will increase insulin again 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 Initially with 10kg weight gain 2/2 fluid retention, but has now lost all of this weight. - continue to monitor cr, UOP - nephro signed off 06/01 Transaminitis, resolved Attributed to shock liver s/p septic shock, arrest. Liver enzymes trending down. - continue to monitor with CMP s/p Extubation, 2/2 aspiration/vomiting - extubated several days ago - airway stable at this time - resting comfortably on RA - Pulm Dr. Styles consulted. Appreciate recs HTN Anti-hypertensives held 2/2 hypotension. HLD -aware HFrEF - last ECHO 02/2020: EF 40-45%, grade 1 of 3 diastolic dysfunction BPH - tamsulosin held 2/2 hypotension History of DVT in R popliteal vein diagnosed on 02/28/2020 - was on home xarelto of 10mg daily, but not recommended with GFR < 30 - Therapeutic lovenox discontinued due to low platelets - eliquis held at this time due to severe thrombocytopenia with increased risk of spontaneous bleeding - US and CTA 06/01 without signs of DVT or PE - continue to monitor for recurrent symptoms
[2020-06-06] MEDS: Micafungin 100 MG in Sodium Chloride 0.9% 100 ML IVPB SCH (11:24)
[2020-06-06] MEDS: SODIUM CHLORIDE 0.9% SLOW IVP SCH (12:24)
[2020-06-06] MEDS: DAPTOMYCIN SLOW IVP SCH (12:24)
[2020-06-06] MEDS: ANAKINRA SC SCH (12:24)
--- NOTE | 2020-06-06 13:05 | PRG ---
DATE OF SERVICE: 06/06/2020 Mr. Knight is in better spirits this morning. He is however still slightly lethargic, though easily arousable. He had his bone marrow yesterday and we of course are awaiting those results. We will continue to follow with Heme-Onc. Job ID: [id number]
--- NOTE | 2020-06-06 13:38 | CT ---
Bone marrow aspiration/biopsy CT-guided HISTORY: Anemia. FINDINGS: Anesthesia provided by anesthesia Department. Informed consent obtained. Limited CT imaging of the pelvis performed with patient prone. Sterile technique, buffered local anesthesia, CT guidance, and a posterior approach were used to care fully advance an 11-gauge bone biopsy needle to the posterior cortex of the left iliac body. Needle carefully engaged through the cortex. Blood aspirate and 11-gauge core specimen obtained and submitted to pathology for evaluation and proc essing. Needle was removed. No evidence of complication. Patient tolerated the procedure well and was returned in unchanged condition. IMPRESSION : Technically successful CT-guided bone marrow aspiration/biopsy. Transcribed Date/Time: 06/06/2020 1:38 PM
--- NOTE | 2020-06-06 14:26 | PRG ---
DATE OF SERVICE: 06/06/2020 SUBJECTIVE: Mr. Knight is awake. He initially said he was feeling fine, but when I try to reposition him in bed, he complained of pain in his ears from the sudden movement. That pain subsided after he was in the rest position. Now he denies headaches. No sore throat, odynophagia, dysphagia. No dyspnea or abdominal pain. He is incontinent. OBJECTIVE: VITAL SIGNS: T-max 100.8, BP 100/64, heart rate 103, respiratory rate 19, O2 saturation 100%. HEENT: His lips have some potential herpetic lesions in the lower lip. GENERAL: He is awake. He sometimes will close his eyes, but he is responsive immediately when I ask him to do things. LUNGS: With symmetric, clear breath sounds. HEART: S1, S2 without murmurs. No S3 or S4. ABDOMEN: Not distended or tender. I did not see any evidence to suggest bladder distention. He has a lot of moisture in his clothing which suggests to me that, I do not what that comes from if it is IV fluids or if it is urine. He has a right antecubital IV access, which is not adequate and has no joint inflammatory activity. LABORATORY DATA: White cell count, hemoglobin 7.3, MCV 84, [place] [id number], 92% lymphocytes. Chemistry with a creatinine 1.06, which is a significant improvement since admission. Bilirubin 2.2. Transaminase is normal. Alkaline phosphatase 167. Albumin 2.2. The bone marrow biopsy is pending. The blood culture one set out of 2 with Shandra tropicalis identified. His last urinalysis is from May 23 with 0 to 3 WBCs identified. He had a venogram done on June 01 with no DVT noted and the remainder of imaging studies as noted before. ASSESSMENT AND DISCUSSION: Adult Still disease, rheumatoid arthritis, recurrent episodes of decompensation with inflammatory syndrome, some of them associated with proven infections, others presumably due to the exacerbation of the underlying autoimmune syndrome. This time, he had a similar presentation and he improved with anti-inflammatories, then developed this complication with Shandra tropicalis without a clear source at this point. He had also some areas in the CT of chest with potential aspiration, and then he developed severe pancytopenia with possible large granular lymphocytes at 41%. So a bone marrow has been performed and we are waiting on the results. Large granular lymphocyte leukemia is a lymphoproliferative disorder often associated with autoimmune syndromes such as rheumatoid arthritis and high levels of soluble Fas ligand have been implicated in development of chronic neutropenia. 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 We will go ahead and switch him to oral Diflucan. We need to get a better IV access than antecubital access that he has right now. Job ID: [id number] [facility]
[2020-06-06 14:41] LABS: Hemoglobin 12.1 g/dL (14.0-18.0); Platelet Count 14 thou/uL (130-400)
[2020-06-06 14:59] LABS: Chloride 110 mmol/L (98-107); Potassium 3.2 mmol/L (3.5-5.1); Sodium 144 mmol/L (136-145)
[2020-06-06 15:00] LABS: Calcium 7.9 mg/dL (7.8-10.44); Glucose 381 mg/dL (70-105)
[2020-06-06 15:02] LABS: Anion Gap 17 mmol/L (10-20); Carbon Dioxide 20 mmol/L (22-29)
[2020-06-06 15:04] LABS: BUN (Urea Nitrogen) 24 mg/dL (8.4-25.7); Calc. Creatinine Clearance 72 mL/min (70-130); Estimated GFR-MDRD 85
[2020-06-06] MEDS: HumaLOG 300 UNITS/3 ML VIAL SC PRN (16:15)
--- NOTE | 2020-06-06 17:08 | PDOC.BPN ---
- Brief Progress Note Transition of Care Note Mr. Knight is a 60 y/o M with PMHx including adult onset Still's disease who presented to the [facility] ED on 05/23 with symptoms of fever and altered mental status from [facility]. He has had several recent admission for similar symptoms, which are thought to be due to non-compliance with Anakinra for treatment of his Still's disease, although his clinical picture is often clouded by the possibility of sepsis. Due to concern for sepsis, he was given 4L of fluids for resuscitation in the ED. He then vomited and aspirated, prompting the ED physician to rapidly intubate w/ etomidate and succinylcholine. Patient then lost pulse and went into asystole; he received 3 minutes of CPR. ROSC was achieved after 1 dose of epi and 2 amps of bicarb were given. Patient arrived intubated to our CCU w/ levophed at 30, vasopressin at 0.04, and saline w/ potassium infusing. He received vancomycin, zosyn, and stress dose of methylprednisolone of 1 g. [facility] was contacted, and it was then revealed that he had not been receiving his Anakinra due to issues with insurance. Pulmonology and Infectious Disease were consulted to help with his care. He was treated with broad-spectrum empiric coverage including meropenem, linezolid, and micafungin; he remained intubated until the evening of 05/24, and since that time his respiratory status has been quite stable. His AST/ALT elevated to >2000, suggesting injury to his liver, likely secondary to his shock state on admission, and his transaminitis has resolved at this time. He continued to require pressor support 05/27. During this time, he developed an CARL on CKD4, and nephrology was consulted as well. His creatinine peaked at 4.93, and gradually began to improve. He did not require any dialysis and nephrology signed off the case after his kidney function returned to his baseline. He also has developed several electrolyte abnormalities, including hypernatremia, hypokalemia, hypocalcemia, hypomagnesemia. Hypocalcemia has resolved, continues to have low calcium on labs that is normal when corrected for albumin. It is suspected that fludrocortisone may be contributing to his hypernatremia and hypokalemia, and this was stopped. This was started on a recent admission, and it is unclear if he needs to continue on it senior care. His anti-microbials were de-escalated to omnicef and stress dose IV steroids were changed back to PO prednisone. He was transferred from the ICU to the floor on 05/27. He subsequently developed pancytopenia. This was presumed due to bone marrow suppression from his shock requiring multiple days of pressor support. On 06/01, he developed a fever in the setting of neutropenia. He was then started on daptomycin, micafungin, cefepime, and flagyl for empiric coverage in neutropenic fever. Stress dose steroids were resumed. Chest and abdominal imaging was performed and was significant for recurrent diverticulitis and aspiration. He remains on this regimen as of today. Heme/onc was consulted due to pancytopenia with neutropenic fever. 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 Bone marrow biopsy was performed and results of this are still pending at this time. Recently, he has been struggling with some dysphagia, also oral thrush. ST has been evaluating him frequently, his current diet per their recommendations. He remains of D5W for hypernatremia. May need continued insulin adjustment with this. He has required K and Mg replacement on most days. He was required platelet infusion a few times, plt transfusion threshold <10. His daughter Akilah Nunez is his mPOA. When bone marrow biospy results are available would recommend talking with palliative care. At this time, patient still desires aggressive care. He has been having some waxing and waning delirium. Isela Schmitt, DO, PGY-1
[2020-06-06] MEDS: Lidocaine Viscous Sol 2% 15 ml UD Cup SSW PRN (20:09)
[2020-06-07] MEDS: Hydrocortisone Sod Succ/PF 100 mg/2 ml Vial IVP SCH ×5 (00:25→23:30)
[2020-06-07] MEDS: Dextrose 5% in Water 1,000 ML IV SCH ×4 (01:38→23:31)
--- NOTE | 2020-06-07 06:15 | PDOC.FM ---
- Subjective Subjective: Feeling well, no acute concerns this am - Objective Vital Signs & Weight: Vital Signs (12 hours) Temp Pulse Resp BP Pulse Ox 06/07/20 04:00 98.1 F 101 H 18 133/79 100 06/07/20 00:00 98.0 F 100 18 132/86 100 06/06/20 20:00 100 06/06/20 19:42 98.3 F 104 H 18 117/74 100 Weight Admit Weight 77.9 kg Weight 70.3 kg Most Recent Monitor Data Heart Rate from ECG 78 NIBP 110/68 NIBP BP-Mean 82 Respiration from ECG 22 SpO2 100 I&O: 06/05/20 06/06/20 06/07/20 06:59 06:59 06:59 Intake Total 920 1125 1120 Balance 920 1125 1120 Result Diagrams: 06/08/20 05:47 06/08/20 05:47 Phys Exam - Physical Examination Constitutional: NAD Respiratory: no wheezing, no rales, no rhonchi Cardiovascular: RRR, no significant murmur, no rub Gastrointestinal: soft, non-tender, no distention, positive bowel sounds Dx/Plan - Plan Plan: Neutropenic fever, improved Has now been afebrile for multiple days. Neutropenic for several days with pancytopenia s/p shock, arrest, ROSC, pressors. Has been on several agents for empiric coverage of infection during this admission, including linezolid, micafungin, meropenem, omnicef. Blood cx drawn on admission negative. Urethral discharge cx was significant for presumptive emiliano albicans on admission. Hx resistant klebsiella infections in the past. - discussed with ID, Dr. Nickerson, appreciate recs - allergic to vancomycin - started cefepime, micafungin, daptomycin 06/01 - blood culture 1/2 prelim pos for yeast, will continue broad spec therapy and follow up final cx results - continue to monitor vitals closely - LE dopplers negative for DVT 06/01 - CTA chest, CT abd pelvis significant for aspiration pneumonia, recurrent diverticulitis - tylenol DC q8h PRN for fever - continue stress dose steroids, plan to wean soon - consulted heme/onc, appreciate recs Pancytopenia Severe thrombocytopenia Attributed to bone marrow suppression due to shock, arrest, pressors initially. Worsening thrombocytopenia, persistent neutropenia. Hgb has been low but fairly stable above transfusion threshold. - stopped eliquis 05/31 due to platelets in severe range with risk of spontaneous bleeding - continue to monitor - neutropenic precautions - platelet transfusion for plt < 10 - consulted heme onc and bone marrow bx results pending T cell large granular lymphocytic leukemia, likely Heme/onc consulted for pancytopenia as above. Flow cytometry was ordered and is suggestive of this. They are planning bone marrow biopsy to confirm. - appreciate heme/onc recs - f/u bone marrow biopsy results s/p ROSC Septic shock versus exacerbation of Still's disease No longer in shock state, although he is still recovering from the end-organ effects of this event as below. Suspected to be due to exacerbation of his Still's disease due to missing his anakinra at [facility], although infection could not be ruled out on presentation. He was placed on meropenem, levophed, intubated initially. Patient apparently refused prednisone 05/31, worsening exa cerbation of Still's disease could also be contributing to current clinical picture. - Dr. Nickerson, infectious disease, following, appreciate recs - Pulm following, appreciate recs - continue to monitor vitals - stress dose steroids as above Oral thrush, presumed strep throat Has been on micafungin and nystatin SSW. Exam also appeared consistent with strep throat but this has been improving. - currently on cefepime as above which should offer coverage of streptococcal sp ecies - consider strep test, cx if symptoms persist or worsen - added viscous xylocaine for patient comfort Hypernatremia - DC fludrocortisone 05/30 as this is suspected to be a contributing factor given hypernatremia and hypokalemia - Remains hypernatremic - continue d5w and continue to monitor Hypokalemia - Discontinued fludrocortisone as above Hypomagnesemia -will recheck in setting of low K this AM - Continue to replete as needed T2DM with hyperglycemia - Glucose check ACHS - Mild SSI - Glucagon/D50 if hypoglycemic - has been on D5w for hypernatremia and diet advancing; now hyperglycemic and will increase insulin again 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 Initially with 10kg weight gain 2/2 fluid retention, but has now lost all of this weight. - continue to monitor cr, UOP - nephro signed off 06/01 Transaminitis, resolved Attributed to shock liver s/p septic shock, arrest. Liver enzymes trending down. - continue to monitor with CMP s/p Extubation, 2/2 aspiration/vomiting - extubated several days ago - airway stable at this time - resting comfortably on RA - Pulm Dr. Styles consulted. Appreciate recs HTN Anti-hypertensives held 2/2 hypotension. HLD -aware HFrEF - last ECHO 02/2020: EF 40-45%, grade 1 of 3 diastolic dysfunction BPH - tamsulosin held 2/2 hypotension History of DVT in R popliteal vein diagnosed on 02/28/2020 - was on home xarelto of 10mg daily, but not recommended with GFR < 30 - Therapeutic lovenox discontinued due to low platelets - eliquis held at this time due to severe thrombocytopenia with increased risk of spontaneous bleeding - US and CTA 06/01 without signs of DVT or PE - continue to monitor for recurrent symptoms Addendum - Attending - Attending Attestation Date/Time: 06/08/20 [id number] I personally evaluated the patient and discussed the management with Dr. hatfield I agree with the History, Examination, Assessment and Plan documented above with any addition or exceptions noted below. Awaiting bone marrow results for confirmation of Leukemia.
[2020-06-07 06:18] LABS: ALT (SGPT) 30 U/L (8-55); AST (SGOT) 14 U/L (5-34); Albumin 2.2 g/dL (3.5-5.0); Alkaline Phosphatase 180 U/L (40-110); Anion Gap 12 mmol/L (10-20); BUN (Urea Nitrogen) 23 mg/dL (8.4-25.7); Bilirubin, Total 2.2 mg/dL (0.2-1.2); Calc. Creatinine Clearance 85 mL/min (70-130); Calcium 7.6 mg/dL (7.8-10.44); Carbon Dioxide 25 mmol/L (22-29); Chloride 115 mmol/L (98-107); Estimated GFR-MDRD Greater than 90; Globulin 2.8 g/dL (2.4-3.5); Glucose 212 mg/dL (70-105); Magnesium 1.6 mg/dL (1.6-2.6); Potassium 3.5 mmol/L (3.5-5.1); Sodium 148 mmol/L (136-145)
[2020-06-07] MEDS: Pantoprazole 40 MG VIAL IVP SCH (09:33)
[2020-06-07] MEDS: Fluconazole 100 MG TAB PO SCH (09:33)
[2020-06-07] MEDS: Nystatin 500,000 UNITS/5 ML UDCUP SSW SCH ×4 (09:33→20:13)
[2020-06-07] MEDS: NPH, Human Insulin Isophane 300 UNIT/3 ML VIAL SC SCH ×2 (09:36→21:07)
[2020-06-07] MEDS: Sodium Chloride 0.9% (PF) 10 ML VIAL FS PRN (09:38)
[2020-06-07] MEDS: ANAKINRA SC SCH (09:49)
[2020-06-07] MEDS: HumaLOG 300 UNITS/3 ML VIAL SC PRN ×2 (13:31→17:29)
[2020-06-07 18:12] LABS: Hemoglobin 8.5 g/dL (14.0-18.0); Mean Corpuscular HGB CONC 33.7 g/dL (32.0-36.0); Mean Corpuscular Hemoglobin 28.4 pg (27.0-31.0); Mean Corpuscular Volume 84.4 fL (78.0-98.0); Mean Platelet Volume 18.6 fL (7.4-10.4); Platelet Count 6 thou/uL (130-400); RBC Distribution Width 15.5 % (11.5-14.5); Red Blood Cell (RBC) Count 2.98 mill/uL (4.70-6.10); White Blood Cell (WBC) Count 0.7 thou/uL (4.8-10.8)
[2020-06-07 18:28] LABS: Anisocytosis SLIGHT = 6-15 cells (100X) (0-5/hpf); Band 6 % (5-11); Burr Cells SLIGHT = 2-5 cells (100X) (0-1/hpf); Lymphocytes 78 % (21-51); MDiff Complete? YES; Monocytes 8 % (0-10); Myelocyte 2 % (0-0); Neutrophil 4 % (42-75); Nucleated RBC 1 % (0); Ovalocytes SLIGHT = 2-5 cells (100X) (0-1/hpf); Platelet Morphology Comment Appears Decreased; Polychromasia SLIGHT = 2-3 cells (100X) (0-2/hpf); Reactive Lymphocytes 2 % (0-10); Schistocytes SLIGHT = 2-5 cells (100X) (0-1/hpf); Spherocytes SLIGHT = 1-5 cells (100X) (None Seen)
--- NOTE | 2020-06-08 04:38 | PDOC.FM ---
- Subjective Subjective: Reports persistent cough, no chest pain, intermittent SOB-mainly when coughing. Otherwise feeling well, sore throat improving. - Objective MAR Reviewed: Yes Vital Signs & Weight: Vital Signs (12 hours) Temp Pulse Pulse Resp BP BP Pulse Ox 06/07/20 23:20 99.1 F 88 18 157/83 H 99 06/07/20 22:35 98.5 F 79 18 134/76 99 06/07/20 22:20 98.2 F 93 18 129/70 99 06/07/20 22:17 98.2 F 93 18 129/70 06/07/20 20:00 98.5 F 105 H 20 152/74 H 96 Weight Admit Weight 77.9 kg Weight 70.477 kg Most Recent Monitor Data Heart Rate from ECG 78 NIBP 110/68 NIBP BP-Mean 82 Respiration from ECG 22 SpO2 100 I&O: 06/06/20 06/07/20 06/08/20 06:59 06:59 06:59 Intake Total 1124 1119 2049 Balance 1125 1119 2049 Result Diagrams: 06/08/20 05:47 06/08/20 14:09 Phys Exam - Physical Examination Constitutional: NAD diffuse coarse breath sounds cleared with coughing, decreased on R side Cardiovascular: RRR, no significant murmur, no rub Gastrointestinal: soft, non-tender, no distention, positive bowel sounds Musculoskeletal: no edema, pulses present Dx/Plan - Plan Plan: Pancytopenia Severe thrombocytopenia Attributed to bone marrow suppression due to shock, arrest, pressors initially. Worsening thrombocytopenia, persistent neutropenia. Hgb has been low but fairly stable above transfusion threshold. - stopped eliquis 05/31 due to platelets in severe range with risk of spontaneous bleeding - continue to monitor - neutropenic precautions - platelet transfusion for plt < 10 - consulted heme onc and bone marrow bx results pending - Obtain CXR given cough with neutropenia T cell large granular lymphocytic leukemia, likely Heme/onc consulted for pancytopenia as above. Flow cytometry was ordered and is suggestive of this. They are planning bone marrow biopsy to confirm. - appreciate heme/onc recs - f/u bone marrow biopsy results Neutropenic fever, improved AF since 06/05 Has now been afebrile for multiple days. Neutropenic for several days with pancytopenia s/p shock, arrest, ROSC, pressors. Has been on several agents for empiric coverage of infection during this admission, including linezolid, micafungin, meropenem, omnicef. Blood cx drawn on admission negative. Urethral discharge cx was significant for presumptive emiliano albicans on admission. Hx resistant klebsiella infections in the past. - discussed with ID, Dr. Nickerson, appreciate recs - allergic to vancomycin - started cefepime, micafungin, daptomycin 06/01 - blood culture 1/2 prelim pos for yeast, will continue broad spec therapy and follow up final cx results - continue to monitor vitals closely - LE dopplers negative for DVT 06/01 - CTA chest, CT abd pelvis significant for aspiration pneumonia, recurrent diverticulitis - tylenol IN q8h PRN for fever - continue stress dose steroids, plan to wean soon - consulted heme/onc, appreciate recs s/p ROSC Septic shock versus exacerbation of Still's disease No longer in shock state, although he is still recovering from the end-organ effects of this event as below. Suspected to be due to exacerbation of his S till's disease due to missing his anakinra at [facility], although infection could not be ruled out on presentation. He was placed on meropenem, levophed, intubated initially. Patient apparently refused prednisone 05/31, worsening exacerbation of Still's disease could also be contributing to current clinical picture. - Dr. Nickerson, infectious disease, following, appreciate recs - Pulm following, appreciate recs - continue to monitor vitals - stress dose steroids as above Oral thrush, presumed strep throat Has been on micafungin and nystatin SSW. Exam also appeared consistent with strep throat but this has been improving. - currently on cefepime as above which should offer coverage of streptococcal species - consider strep test, cx if symptoms persist or worsen - added viscous xylocaine for patient comfort Hypernatremia - DC fludrocortisone 05/30 as this is suspected to be a contributing factor given hypernatremia and hypokalemia - Remains hypernatremic - continue d5w and continue to monitor Hypokalemia - Discontinued fludrocortisone as above Hypomagnesemia -will recheck in setting of low K this AM - Continue to replete as needed T2DM with hyperglycemia - Glucose check ACHS - Mild SSI - Glucagon/D50 if hypoglycemic - has been on D5w for hypernatremia and diet advancing; now hyperglycemic and will increase insulin again 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 Initially with 10kg weight gain 2/2 fluid retention, but has now lost all of this weight. - continue to monitor cr, UOP - nephro signed off 06/01 Transaminitis, resolved Attributed to shock liver s/p septic shock, arrest. Liver enzymes trending down. - continue to monitor with CMP s/p Extubation, 2/2 aspiration/vomiting - extubated several days ago - airway stable at this time - resting comfortably on RA - Pulm Dr. Styles consulted. Appreciate recs HTN Anti-hypertensives held 2/2 hypotension. HLD -aware HFrEF - last ECHO 02/2020: EF 40-45%, grade 1 of 3 diastolic dysfunction BPH - tamsulosin held 2/2 hypotension History of DVT in R popliteal vein diagnosed on 02/28/2020 - was on home xarelto of 10mg daily, but not recommended with GFR < 30 - Therapeutic lovenox discontinued due to low platelets - eliquis held at this time due to severe thrombocytopenia with increased risk of spontaneous bleeding - US and CTA 06/01 without signs of DVT or PE - continue to monitor for recurrent symptoms Addendum - Attending - Attending Attestation Date/Time: 06/08/20 [id number] I personally evaluated the patient and discussed the management with Dr. Watson I agree with the History, Examination, Assessment and Plan documented above with any addition or exceptions noted below. Patient with severe neutropenia continue precautions awaiting Bone marrow biopsy results.
[2020-06-08] MEDS: Hydrocortisone Sod Succ/PF 100 mg/2 ml Vial IVP SCH ×3 (05:36→21:13)
[2020-06-08 06:41] LABS: Band 4 % (5-11); Hemoglobin 7.9 g/dL (14.0-18.0); Lymphocytes 72 % (21-51); MDiff Complete? YES; Mean Corpuscular HGB CONC 31.9 g/dL (32.0-36.0); Mean Corpuscular Volume 84.5 fL (78.0-98.0); Mean Platelet Volume 15.2 fL (7.4-10.4); Monocytes 8 % (0-10); Neutrophil 16 % (42-75); Platelet Count 41 thou/uL (130-400); Platelet Morphology Comment Appears Decreased; RBC Distribution Width 15.4 % (11.5-14.5); Red Blood Cell (RBC) Count 2.93 mill/uL (4.70-6.10)
[2020-06-08 06:42] LABS: ALT (SGPT) 33 U/L (8-55); AST (SGOT) 29 U/L (5-34); Albumin 2.1 g/dL (3.5-5.0); Alkaline Phosphatase 183 U/L (40-110); Anion Gap 13 mmol/L (10-20); BUN (Urea Nitrogen) 18 mg/dL (8.4-25.7); Bilirubin, Total 1.8 mg/dL (0.2-1.2); Calc. Creatinine Clearance 103 mL/min (70-130); Calcium 7.3 mg/dL (7.8-10.44); Carbon Dioxide 25 mmol/L (22-29); Chloride 108 mmol/L (98-107); Estimated GFR-MDRD Greater than 90; Globulin 3.2 g/dL (2.4-3.5); Glucose 85 mg/dL (70-105); Magnesium 1.3 mg/dL (1.6-2.6); Protein, Total 5.3 g/dL (6.0-8.3); Sodium 143 mmol/L (136-145)
[2020-06-08] MEDS ORDERED: Potassium Chloride 20 MEQ TAB PO SCH (07:00)
[2020-06-08] MEDS: ANAKINRA SC SCH (08:38)
[2020-06-08] MEDS: Pantoprazole 40 MG VIAL IVP SCH (08:42)
[2020-06-08] MEDS: Sodium Chloride 0.9% (PF) 10 ML VIAL FS PRN (08:42)
[2020-06-08] MEDS: Nystatin 500,000 UNITS/5 ML UDCUP SSW SCH ×4 (08:42→21:12)
[2020-06-08] MEDS: Fluconazole 100 MG TAB PO SCH (08:42)
[2020-06-08] MEDS: Magnesium Chloride 64 MG TAB PO SCH ×2 (08:43→21:13)
[2020-06-08] MEDS: NPH, Human Insulin Isophane 300 UNIT/3 ML VIAL SC SCH ×2 (08:44→21:13)
--- NOTE | 2020-06-08 10:31 | RAD ---
PORTABLE CHEST: DATE: 06/08/2020. PROVIDED CLINICAL HISTORY: Cough. FINDINGS: Comparison 06/01/2020. Cardiac and mediastinal silhouette are unchanged in appearance. No focal con solidation, pleural fluid, or pneumothorax apparent. IMPRESSION: No evidence for an acute cardiopulmonary process. POS: RACHEL
[2020-06-08] MEDS: Dextrose 5% in Water 1,000 ML IV SCH ×2 (11:23→18:28)
[2020-06-08] MEDS: HumaLOG 300 UNITS/3 ML VIAL SC PRN ×3 (12:52→21:14)
[2020-06-08] MEDS ORDERED: Hydrocortisone Sod Succ/PF 100 mg/2 ml Vial IVP SCH ×2 (14:00→19:30)
[2020-06-08 14:30] LABS: Anion Gap 13 mmol/L (10-20); BUN (Urea Nitrogen) 15 mg/dL (8.4-25.7); Calc. Creatinine Clearance 94 mL/min (70-130); Calcium 6.8 mg/dL (7.8-10.44); Carbon Dioxide 25 mmol/L (22-29); Chloride 103 mmol/L (98-107); Estimated GFR-MDRD Greater than 90; Glucose 287 mg/dL (70-105); Magnesium 1.2 mg/dL (1.6-2.6); Sodium 138 mmol/L (136-145)
[2020-06-08 14:33] LABS: Potassium 2.8 mmol/L (3.5-5.1)
[2020-06-08] MEDS: Potassium Chloride 20 MEQ TAB PO SCH ×2 (16:17→18:02)
[2020-06-08 22:46] LABS: Potassium 3.2 mmol/L (3.5-5.1)
[2020-06-09] MEDS: Dextrose 5% in Water 1,000 ML IV SCH ×3 (02:08→16:44)
[2020-06-09] MEDS: HumaLOG 300 UNITS/3 ML VIAL SC PRN (05:49)
[2020-06-09 06:05] LABS: ALT (SGPT) 25 U/L (8-55); AST (SGOT) 19 U/L (5-34); Albumin 2.1 g/dL (3.5-5.0); Alkaline Phosphatase 240 U/L (40-110); Anion Gap 15 mmol/L (10-20); BUN (Urea Nitrogen) 12 mg/dL (8.4-25.7); Bilirubin, Total 1.9 mg/dL (0.2-1.2); Calc. Creatinine Clearance 93 mL/min (70-130); Calcium 6.7 mg/dL (7.8-10.44); Carbon Dioxide 21 mmol/L (22-29); Chloride 104 mmol/L (98-107); Estimated GFR-MDRD Greater than 90; Globulin 3.1 g/dL (2.4-3.5); Glucose 211 mg/dL (70-105); Magnesium 1.1 mg/dL (1.6-2.6); Potassium 3.7 mmol/L (3.5-5.1); Protein, Total 5.2 g/dL (6.0-8.3); Sodium 136 mmol/L (136-145)
--- NOTE | 2020-06-09 06:28 | PDOC.FM ---
- Subjective Subjective: Mr. Knight was not in a talkative mood today. His nurse states he has been bothered a lot this morning and that tends to make him grumpy,so he would not answer my questions. The nurse has a concern about his IV line. His previous one looked like it was infiltrating so she attempted to replace it but she did not have help so when she tried to place a new one he would move and she was not successful. She says all of his other veins are blown and that lab had trouble drawing blood on him this morning for that reason. She is asking if we would be okay with a mid-line being placed. - Objective Vital Signs & Weight: Vital Signs (12 hours) Temp Pulse Resp BP Pulse Ox 06/09/20 00:00 108 H 100 06/08/20 20:00 97.8 F 111 H 20 130/82 94 L Weight Admit Weight 77.9 kg Weight 69.8 kg Most Recent Monitor Data Heart Rate from ECG 78 NIBP 110/68 NIBP BP-Mean 82 Respiration from ECG 22 SpO2 100 I&O: 06/07/20 06/08/20 06/09/20 06:59 06:59 06:59 Intake Total 1120 2049 2200 Balance 1120 0 2200 Result Diagrams: 06/09/20 07:34 06/09/20 05:30 Phys Exam - Physical Examination Constitutional: NAD Eyes closed, withdrawing as soon as I would touch him Neck: supple Respiratory: clear to auscultation bilateral Cardiovascular: RRR, no significant murmur No LE edema. Edema of hands b/l Difficult to assess d/t uncooperation Difficult to auscultate -: Bruise on inner R arm Dx/Plan - Plan Plan: Pancytopenia Severe thrombocytopenia Attributed to bone marrow suppression due to shock, arrest, and pressors initially. Worsening thrombocytopenia, persistent neutropenia. Hgb has been low but fairly stable and above transfusion threshold. - stopped eliquis 05/31 due to platelets in severe range with risk of spontaneous bleeding - continue to monitor - neutropenic precautions - platelet transfusion for plt < 10 - consulted heme onc. They obtained a bone marrow bx and results are pending - CXR obtained d/t cough with neutropenia but showed no cardiopulmonary process. 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 - f/u bone marrow biopsy results Neutropenic fever, improved AF since 06/05 Has now been afebrile for multiple days. Has been on several agents for empiric coverage of infection during this admission, including linezolid, micafungin, meropenem, omnicef. Blood cx drawn on admission negative. Urethral discharge cx was significant for presumptive emiliano albicans and krusei on admission. Hx of resistant klebsiella infections in the past. - discussed with ID, Dr. Nickerson, appreciate recs - allergic to vancomycin - Currently, only on micafungin (06/09) - blood culture 1/2 prelim pos for yeast - LE dopplers negative for DVT 06/01 - CTA chest, CT abd pelvis significant for aspiration pneumonia, recurrent diverticulitis - tylenol CA q8h PRN for fever - have begun to wean down stress steroid dose - consulted heme/onc, appreciate recs T2DM with hyperglycemia - Glucose check ACHS - Mild SSI - Glucagon/D50 if hypoglycemic - has been on D5W for hypernatremia and diet advancing; now hyperglycemic - Continue managing insulin and monitoring BGs s/p ROSC Septic shock versus exacerbation of Still's disease No longer in shock state, although he is still recovering from the end-organ effects of this event, as stated below. Suspected to be due to exacerbation of his Still's disease due to [facility], although infection could not be ruled out on presentation. He was placed on meropenem, levophed, intubated initially. Patient apparently refused prednisone 05/31, wors ening exacerbation of Still's disease could also be contributing to current clinical picture. - Dr. Nickerson, infectious disease, following, appreciate recs - Pulm has signed off - continue to monitor vitals - stress dose steroids as above, being weaned Oral thrush, presumed strep throat Has been on micafungin and nystatin SSW. Exam also appeared consistent with strep throat but this has been improving. - consider strep test, cx if symptoms persist or worsen - added viscous xylocaine for patient comfort Hypernatremia - DC fludrocortisone 05/30 as this is suspected to be a contributing factor given hypernatremia and hypokalemia - On D5W - Na normal, continue to monitor Hypokalemia - Discontinued fludrocortisone as above - K increasing, now wnl, continue to monitor Hypomagnesemia - Will prelace today - Continue to monitor and replete as needed Adult Still's disease - stress dose steroids due to acute processes as above, being weaned - Continue home anakinra CARL on CKD, resolved Appears CARL is has resolved, Cr returned to baseline and adequate UOP. Initially with 10kg weight gain 2/2 fluid retention, but has now lost all of this weight. - continue to monitor Cr, UOP - nephro signed off 06/01 Transaminitis, resolved Attributed to shock liver s/p septic shock, arrest. - Initially resolved but alk phos is starting to trend back up - continue to monitor with CMP s/p Extubation, 2/2 aspiration/vomiting - extubated several days ago - airway stable at this time - resting comfortably on RA - Pulm Dr. Styles consulted. Appreciate recs HTN Anti-hypertensives held 2/2 hypotension. HLD -aware HFrEF - last ECHO 02/2020: EF 40-45%, grade 1 of 3 diastolic dysfunction BPH - tamsulosin held 2/2 hypotension History of DVT in R popliteal vein diagnosed on 02/28/2020 - was on home xarelto of 10mg daily, but not recommended with GFR < 30 - Therapeutic lovenox discontinued due to low platelets - eliquis held at this time due to severe thrombocytopenia with increased risk of spontaneous bleeding - US and CTA 06/01 without signs of DVT or PE - continue to monitor for recurrent symptoms Dispo: Medical inpt, stable, LOS >48hrs IVF: D5W GI Ppx: Protonix DVT Ppx: None PCP: [facility] Code: Full
[2020-06-09 08:49] LABS: Hemoglobin 8.5 g/dL (14.0-18.0); Mean Corpuscular HGB CONC 31.8 g/dL (32.0-36.0); Mean Corpuscular Hemoglobin 26.7 pg (27.0-31.0); Mean Platelet Volume 16.6 fL (7.4-10.4); Platelet Count 28 thou/uL (130-400); RBC Distribution Width 15.7 % (11.5-14.5); Red Blood Cell (RBC) Count 3.18 mill/uL (4.70-6.10); White Blood Cell (WBC) Count 1.7 thou/uL (4.8-10.8)
[2020-06-09] MEDS ORDERED: NPH, Human Insulin Isophane 300 UNIT/3 ML VIAL SC SCH (09:00)
[2020-06-09] MEDS ORDERED: EPINEPHrine 1 MG/10 ML Abboject SYRINGE ONE ×2 (09:18→22:51)
[2020-06-09] MEDS ORDERED: Sodium Bicarb 50 MEQ/50 ML Abboject 8.4% SYRINGE ONE ×3 (09:18→22:50)
[2020-06-09] MEDS: Nystatin 500,000 UNITS/5 ML UDCUP SSW SCH ×4 (09:30→18:20)
[2020-06-09] MEDS: Acetaminophen 325 MG TAB PO PRN (09:30)
[2020-06-09] MEDS: Fluconazole 100 MG TAB PO SCH ×2 (09:31→11:09)
[2020-06-09] MEDS: Hydrocortisone Sod Succ/PF 100 mg/2 ml Vial IVP SCH ×3 (09:32→18:20)
[2020-06-09] MEDS: ANAKINRA SC SCH (09:33)
[2020-06-09 09:41] LABS: Band 14 % (5-11); Hypochromia SLIGHT = 6-15 cells (100X) (0-5/hpf); Lymphocytes 48 % (21-51); MDiff Complete? YES; Metamyelocyte 9 % (0-0); Monocytes 24 % (0-10); Myelocyte 6 % (0-0); Neutrophil 2 % (42-75); Nucleated RBC 4 % (0); Platelet Morphology Comment Appears Decreased; Polychromasia SLIGHT = 2-3 cells (100X) (0-2/hpf); Reactive Lymphocytes 4 % (0-10); Reflex for Review?? NO; Schistocytes SLIGHT = 2-5 cells (100X) (0-1/hpf)
[2020-06-09] MEDS ORDERED: Magnesium Sulfate 4 GM in Sodium Chloride 0.9% 250 ML 250 ML IVPB SCH (10:00)
[2020-06-09 10:16] LABS: Actual Bicarbonate (HCO3a) 20.2 mEq/L (22-28); Base Excess (BEa) -0.8 mEq/L (-2.0 to +3.0); Calcium, Ionized (arterial) 1.01 mmol/L (1.12-1.30); Hemoglobin (Hb) 8.6 g/dL (14.0-18.0); Potassium - ABG Lab 3.25 mmol/L (3.70-5.30)
[2020-06-09 10:17] LABS: pH, Arterial 7.59 (7.35-7.45)
[2020-06-09 10:18] LABS: CO2 Tension 21.8 mmHg (35.0-45.0); O2 Tension (PaO2), arterial 51.1 mmHg (> 80.0); Puncture Site RRA
--- NOTE | 2020-06-09 10:48 | PRG ---
DATE OF SERVICE: 06/09/2020 SUBJECTIVE: A 60-year-old gentleman, being seen for acute kidney injury. The patient denies any nausea, vomiting, or chest pain. PHYSICAL EXAMINATION: General: The patient is awake and alert. Vital Signs: Afebrile, pulse breathing at 16, blood pressure 130/82. HEENT: Head normocephalic and atraumatic. Eyes intact, no ulcers. Nose intact, no ulcers. Ears intact, no ulcers. Neck: Supple. No JVD. Chest: Symmetrical and clear. Cardiovascular: Shows S1 and S2, no rub, no murmur. Gastrointestinal: Abdomen is soft, bowel sounds positive. Extremities: Show no edema or ulcers. Skin: Shows no rash or petechiae. Musculoskeletal: Shows no joint swelling or stiffness. Genitourinary: Shows no Napier or CVA tenderness. Neurologic: Motor intact. Cranial nerves intact. LABORATORY DATA: Lab show hemoglobin 8.5. Creatinine ASSESSMENT AND PLAN: 1. Acute kidney injury, resolved. 2. Hypertension, stable. 3. Anemia, stable. 4. Hypokalemia, stable. We will sign off on this patient. Please reconsult as needed. Job ID: [id number]
--- NOTE | 2020-06-09 11:00 | RAD ---
AP CHEST: Date: 06/09/2020 HISTORY: Tachypnea. COMPARISON: 06/08/2020. FINDINGS/IMPRESSION: Mild cardiomegaly. Vascular markings appear upper normal. No focal infiltrate or consolidation identi fied. No evidence of significant interval change from yesterday. POS: AH
--- NOTE | 2020-06-09 12:43 | CT ---
CT OF THE HEAD WITHOUT CONTRAST: DATE: 06/09/2020. COMPARISON: 05/17/2020. HISTORY: Right-sided flaccid, not speaking, acute stroke protocol. TECHNIQUE: Axial CT imaging at 5 mm intervals from the vertex through the skull base without contrast. FINDINGS: The imaged paranasal sinuses and mastoid air cells demonstrate mild posterior ethmoid opacification b ilaterally. There is atherosclerotic calcification of the cavernous carotid arteries. There is stab le prominence of the lateral ventricles. There is stable periventricular hypodensity, evidence of sm all-vessel disease. No intracranial hemorrhage, midline shift, or mass effect. No significant inter dane change. IMPRESSION: No intracranial hemorrhage noted. Stable head CT. Results discussed with Dr. Ball at 12:31 p.m. 06/09/2020. CODE CR POS: ROSANGELA
[2020-06-09] MEDS ORDERED: Hydrocortisone Sod Succ/PF 100 mg/2 ml Vial ONE ×2 (12:46→22:02)
--- NOTE | 2020-06-09 12:47 | PDOC.BPN ---
- Brief Progress Note Encounter Date: 06/09/20 Encounter Time: 12:30 The residents were called to a Sanchez Knight after Mr. Knight's R arm became flaccid and he was grimacing with facial movement only on the L side. He was still febrile at 103.1F, tachypneic in the 40s, tachycardic in the 140s, and essentially unresponsive. About an hour prior to this episode, an EKG, CXR, and ABG were obtained d/t his decreased responsiveness compared to baseline. The EKG and CXR were normal. The ABG showed a respiratory alkalosis with mildly low O2. With the onset of the one-sided flaccidity, a stat CT head without contrast was obtained which showed no acute bleed. He was not a candidate for TPA d/t having a plt count <100,000. He was transferred to the CCU for continued monitoring. Once he is stable, a brain MRI will likely be ordered.
[2020-06-09] MEDS ORDERED: Norepinephrine 8 MG/0.9% NS 250 ML IVPB PRN (12:51)
[2020-06-09] MEDS: Dextrose 50% Abboject 50 ML SYRINGE IVP PRN ×2 (13:08→16:44)
[2020-06-09 14:10] VITALS: BMI 20.8
[2020-06-09 20:26] VITALS: BP 150/79; TEMP 99.2
[2020-06-09] MEDS ORDERED: Calcium Chloride 1 GM/10 ML Abboject SYRINGE ONE (22:51)
[2020-06-09] MEDS ORDERED: EPINEPHrine 1 MG/ML AMP ONE (22:51)
--- NOTE | 2020-06-10 03:56 | PDOC.EVN ---
Event Note - Event Note Event Note: Sanchez mercado called overhead to patients room at approximately 2130 When we arrived, CPR in progress. Patients nurse reports patient became bradycardic and then apnic and pulseless. During the time coding the patient, 2 rounds of epinephrine were given, 2 rounds of bicarb were given, and ROSC was achieved on 3 separate occasions. The patient was intubated and moved to the ICU. After the third episode of ROSC, I called the daughter and discussed her father's condition. She understood and asked that if he coded again, that we do not continue resuscitative efforts. Shortly after, the patient coded and at 2213. Please see progress note and nursing code record for further details. Addendum - Attending - Attending Attestation Date/Time: 06/10/20823 I was present for the entire code rogelio.
--- NOTE | 2020-06-10 06:57 | PRG ---
DATE OF SERVICE: 06/09/2020 SUBJECTIVE: This evening around 9:30, there was a code blue called to the patient's room. His heart rate had wilver'd down and he was pulseless and apneic at that time. CPR was started. This included subsequently two separate times with 1% two rounds of epinephrine, one round of bicarb given during that event. At this time, the patient was pronounced at 2213 hours. PHYSICAL EXAMINATION: HEENT: Pupils fixed and dilated. HEART: No heartbeat auscultated, ultrasound shows no cardiac movement. LUNGS: No air movement. EXTREMITIES: Does not withdraw to pain. TIME OF : 2213 hours. ORDERS: Okay to discontinue lines and tubes. He will be released to the trauma therapist. I did discuss the patient's with next of kin, Evelyn Nunez, and let her know that he had . Job ID: [id number]
--- NOTE | 2020-06-10 11:19 | DIS ---
DATE OF ADMISSION: 05/23/2020 DATE OF DISCHARGE: 06/09/2020 SUMMARY: RESIDENT: Jessica Christina MD DATE OF : 06/09/2020. TIME OF : 2213 hours. CAUSE OF : 1. Septic shock. 2. Still disease and encephalopathy. 3. Aspiration. SECONDARY DIAGNOSES: 1. ATN. 2. Pancytopenia with suspected T-cell granular lymphocytic leukemia. 3. Electrolyte imbalance - hypocalcemia, hypokalemia. 4. Heart failure with reduced ejection fraction. 5. Hypertension. 6. Hyperlipidemia. 7. BPH. HOSPITAL COURSE: Mr. Peter is a 60-year-old male with a past medical history of adult onset Still disease, who presented to the [place] [facility] ED on 05/23 with symptoms of fever and altered mental status per report from his [facility]. He has had several admissions for similar symptoms, all thought to be due to noncompliance with anakinra for the treatment of his Still disease. He vomited and aspirated in the ED requiring intubation and resulting in asystole. ROSC was achieved and he was sent to the CCU. Pulmonology and Infectious Disease were consulted to help with his care since his picture is always complicated by the possibility of sepsis. He was treated with broad-spectrum antibiotics and was eventually extubated and move to the CCU. He was found to have a transient transaminitis and developed CARL on CKD 4 during his shock state. Nephrology was consulted, but he did not require dialysis and they signed off after his kidney function returned to baseline. Ultimately, his antimicrobials were deescalated to Omnicef and he was started on stress dose IV steroids that were changed to a stress dose of p.o. prednisone. He developed pancytopenia, which was suspected to be bone marrow suppression, but he then developed a fever in the setting of neutropenia, so he was started on multiple antimicrobials and Heme-Onc was consulted. They performed flow cytometry that was suggestive of T-cell granular lymphocytic leukemia and bone marrow biopsy was performed on 06/05. He required three sets of platelet transfusions during his stay and the results of the bone marrow biopsy were still pending on 06/09/2020 when a osvaldo peter was called for decreased mentation as well as right upper extremity flaccidity and right facial droop. A stat CT head was obtained, which showed no acute bleed. He was not started on tPA due to his low platelet count. He was sent to the stroke unit with MRI pending. Later that night, a code blue was called and ROSC was achieved 3 times at which point, his next of kin was called and decided to withdraw resuscitative efforts. It was at this time that the patient . Job ID: [id number]
--- NOTE | 2020-06-10 14:51 | EKG ---
Test Reason : Blood Pressure : / mmHG Vent. Rate : 141 BPM Atrial Rate : 141 BPM P-R Int : 130 ms QRS Dur : 074 ms QT Int : 340 ms P-R-T Axes : 055 026 011 degrees QTc Int : 520 ms Sinus tachycardia Nonspecific ST abnormality Abnormal ECG When compared with ECG of 10-MAY-2020 21:52, No significant change was found Confirmed by NAE DYER (2) on 06/10/2020 2:50:54 PM Referred By: HOLDEN *R Confirmed By:NAE DYER
== END 2020-06-09 22:13 | disposition expired | DRG 871 ==
LOC: CCU 06:50 → T4-B 05-27 08:38 → CCU 06-09 12:37 → 2SE 06-09 20:09 → CCU 06-09 21:57
PROVIDERS: ADMIT Family Medicine; ATTEND Family Medicine
PROC: 5A1935Z Respiratory Ventilation, Less than 24 Consecutive Hours (ICD-10-PCS; principal; 2020-05-23)
PROC: 3E033XZ Introduction of Vasopressor into Peripheral Vein, Percutaneous Approach (ICD-10-PCS; 2020-05-23)
PROC: 30233R1 Transfusion of Nonautologous Platelets into Peripheral Vein, Percutaneous Approach (ICD-10-PCS; 2020-06-02)
PROC: 07DR3ZX Extraction of Iliac Bone Marrow, Percutaneous Approach, Diagnostic (ICD-10-PCS; 2020-06-05)
PROC: 5A12012 Performance of Cardiac Output, Single, Manual (ICD-10-PCS; 2020-06-09)
DX: A41.9 Sepsis, unspecified organism (principal); J96.00 Acute respiratory failure, unspecified whether with hypoxia or hypercapnia; K72.00 Acute and subacute hepatic failure without coma; N17.0 Acute kidney failure with tubular necrosis; J69.0 Pneumonitis due to inhalation of food and vomit; R65.21 Severe sepsis with septic shock; K57.33 Diverticulitis of large intestine without perforation or abscess with bleeding; E27.40 Unspecified adrenocortical insufficiency; I50.22 Chronic systolic (congestive) heart failure; G93.40 Encephalopathy, unspecified; N18.4 Chronic kidney disease, stage 4 (severe); I13.0 Hypertensive heart and chronic kidney disease with heart failure and stage 1 through stage 4 chronic kidney disease, or unspecified chronic kidney disease; C91.Z0 Other lymphoid leukemia not having achieved remission; D61.818 Other pancytopenia; E87.1 Hypo-osmolality and hyponatremia; B37.0 Candidal stomatitis; F05 Delirium due to known physiological condition; E87.2 Acidosis; E87.0 Hyperosmolality and hypernatremia; E87.3 Alkalosis; M06.1 Adult-onset Still's disease; E78.5 Hyperlipidemia, unspecified; N40.0 Benign prostatic hyperplasia without lower urinary tract symptoms; M06.9 Rheumatoid arthritis, unspecified; E11.22 Type 2 diabetes mellitus with diabetic chronic kidney disease; D63.1 Anemia in chronic kidney disease; I46.9 Cardiac arrest, cause unspecified; E87.6 Hypokalemia; E83.42 Hypomagnesemia; E83.51 Hypocalcemia; E11.65 Type 2 diabetes mellitus with hyperglycemia; R13.10 Dysphagia, unspecified; R00.1 Bradycardia, unspecified; Z79.899 Other long term (current) drug therapy; Z79.01 Long term (current) use of anticoagulants; Z79.52 Long term (current) use of systemic steroids; Z79.4 Long term (current) use of insulin; Z90.49 Acquired absence of other specified parts of digestive tract; Z88.1 Allergy status to other antibiotic agents; Z86.718 Personal history of other venous thrombosis and embolism; Z98.1 Arthrodesis status; Z91.19 Patient's noncompliance with other medical treatment and regimen; Z91.14 Patient's other noncompliance with medication regimen
CPT/HCPCS: 20225; 36415; 36416; 36430; 36600; 70450; 71045; 71275; 74177; 77002; 80053; 82607; 82728; 82746; 82805; 83010; 83540; 83550; 83615; 83735; 83970; 84100; 84145; 84478; 85025; 85046; 85049; 85060; 85097; 85300; 85362; 85379; 85384; 85610; 85730; 86850; 86900; 86901; 87040; 87070; 87077; 87086; 87103; 87106; 87186; 88184; 88185; 88237; 88264; 88280; 88305; 88311; 88312; 88313; 88341; 88342; 88365; 93005; 93010; 93970; 94002; 94003; C9113; J0171; J0692; J0878; J1650; J1720; J1815; J1940; J2001; J2020; J2185; J2248; J2704; J3010; J3475; J3480; J3490; J7050; J7512; J9250; P9035; P9045; Q9967; S0028